=== PATIENT | male | born 1950 | race Caucasian/White ===

== ENCOUNTER → 2018-08-18 15:03 | Outpatient (POV) | payer MEDICARE, SELFPAY | PROVIDERS: Visit Provider Internal Medicine Nephrology | DX: Z00.00 Encounter for general adult medical examination without abnormal findings (principal) ==

== ENCOUNTER → 2018-11-11 12:43 | Outpatient (CLI) | payer MEDICARE, SELFPAY ==
--- NOTE | 2018-11-11 12:48 | US_ITS ---
US kidney retroperitoneal comp HISTORY: Chronic renal disease ITS.REASON: CKD III ORDERING PHYSICIAN: Micky Bliss PATIENT AGE: 67 years Comparison: None FINDINGS: The right kidney measures 13 x 7 x 9 cm. There is renal cortical thinning with scarring. There is a solid-appearing nodule measuring 3 x 2 cm along the upper pole the right kidney. It is possible this could be due to artifact from the scarring with a pseudonodule however, a renal mass is an additional consideration. The left kidney is 13 x 6 x 8.5 cm. There is an 18 mm cyst along the lower pole and a 3 cm cyst along the lower pole. No hydronephrosis. There is cortical thinning with scarring. There is increased echogenicity of the renal cortices bilaterally. Incidental note made of splenomegaly at 15 cm. IMPRESSION: 1. No hydronephrosis. 2. Bilateral renal cortical scarring with increased echogenicity of the cortex suggesting medical renal disease. 3. Possible mass along the upper pole the right kidney. CT of the kidneys without and with contrast would be of further value however, the patient's renal status may not permit contrast administration. If this is the case then, MRI of the kidneys may be of further value to exclude a right renal mass. 4. Splenomegaly
== END ==
PROVIDERS: PCP Internal Medicine Nephrology; Visit Provider Internal Medicine Nephrology
DX: N18.3 Chronic kidney disease, stage 3 (moderate) (principal)
CPT/HCPCS: 76770

== ENCOUNTER → 2018-11-14 11:42 | Outpatient (CLI) | payer MEDICARE, SELFPAY ==
--- NOTE | 2018-11-14 11:45 | CA_ITS ---
PROCEDURE: 2-D M-mode and color Doppler study INDICATIONS FOR THE TEST: Chest pain COPD Heart Murmur Tobacco SmokingEX Palpitations Fatigue Syncope EdemaX Hypertension Diabetes MellitusX Rheumatic Fever SOB NESBITT Obesity HyperlipidemiaX Family History HD Additional History CAD,NEW ONSET AF PATIENT INFORMATION HEIGHT:76 WEIGHT:314 GENDER: Male B/P:156/87 2-D/M-MODE INTERPRETATION: 2-D MEASUREMENTS OBSERVED VALUES IN CMS Right Ventricular Dimension (RVDd) 2.5 Interventricular Septum (Thickness)(IVsd) 1.4 Left Ventricular Internal Dimensions(LVIDd) 5.0 Left Ventricular Posterior Wall (Thickness)(LVPWd) 1.4 Aortic Root 4.2 Aortic Cusp Separation 2.3 Left Atrial Dimensions (LAD) 3.7 2D 1. Left atrium is mildly enlarged, left ventricle is normal size, mild concentric left ventricular hypertrophy, visually estimated ejection fraction 50% with no regional wall motion abnormality. 2. The right atrium and right ventricle are mildly enlarged with normal contractility. 3. The aortic valve is thickened and calcified leaflet continue to display good mobility. 4. The mitral and tricuspid valve leaflets are minimally thickened. 5. Pulmonic valve is poorly visualized. 6. No significant pericardial effusion noted. DOPPLER INTERROGATION: Doppler interrogation of the aortic, mitral and tricuspid valvular presence of mild mitral and tricuspid regurgitation, tricuspid regurgitation jet velocity is inadequate for calculation of the right ventricular systolic pressure, diastolic parameters are inconclusive. CONCLUSION: 1. Mildly enlarged left atrium, normal left ventricular size, mild concentric left ventricular hypertrophy, visually estimated ejection fraction 50% with no regional wall motion abnormality, diastolic parameters are inconclusive. 2. Mildly enlarged right ventricle with normal contractility. 3. Mild mitral and tricuspid regurgitation 4. No significant pericardial effusion noted.
[2018-11-14 12:38] LABS: Basophils % 0.5 % (0.1-2.0); Eosinophils # 0.1 K/mm3 (0.0-0.4); Eosinophils % 1.6 % (0.1-12.0); Hematocrit 36.1 % (42.0-52.0); Hemoglobin 12.1 g/dL (14.1-18.0); Lymphocytes # 1.2 K/mm3 (0.7-4.5); Lymphocytes % 19.4 % (10-50); Mean Corpuscular HGB Conc 33.5 g/dL (31.8-35.4); Mean Corpuscular Hemoglobin 30.1 pg (27.0-31.2); Mean Corpuscular Volume 89.8 fl (80-94); Mean Platelet Volume 9.1 fl (7.4-10.4); Monocytes # 0.4 K/mm3 (0.1-1.0); Monocytes % 7.1 % (1.7-9.3); Neutrophils # 4.5 K/mm3 (1.8-7.8); Neutrophils % 71.4 % (37.0-80.0); Platelet Count 231 K/mm3 (142-424); Red Blood Count 4.02 M/mm3 (4.60-6.20); Red Cell Distribution Width 13.5 % (11.5-17.5); White Blood Count 6.3 K/mm3 (4.8-10.8)
[2018-11-14 16:07] LABS: Alanine Aminotransferase 24 U/L (12-78); Albumin Level 3.1 gm/dL (3.4-5.0); Alkaline Phosphatase 116 U/L (46-116); Anion Gap 16.6 mEq/L (5-15); Aspartate Amino Transferase 9 U/L (15-37); Bilirubin,Direct 0.1 mg/dL (0.0-0.2); Bilirubin,Indirect 0.2 mg/dL (0.0-0.9); Bilirubin,Total 0.3 mg/dL (0.2-1.0); Blood Urea Nitrogen 35 mg/dL (7-18); Carbon Dioxide 24 mmol/L (21.0-32.0); Chloride 103 mmol/L (98-107); Estimated Glomerular Filt Rate 24 ml/min (>60); Free T4 (Free Thyroxine) 1.03 ng/dl (0.76-1.46); GFR (African American) 30 ML/MIN (>60); Glucose 303 mg/dL (74-106); Potassium 4.6 mmoL/L (3.5-5.1); Sodium 139 mmol/L (136-145); Thyroid Stimulating Hormone 2.15 uIU/ml (0.358-3.740); Total Protein,Serum 6.6 gm/dL (6.4-8.2)
[2018-11-14 16:18] LABS: Creatinine,Serum 2.61 mg/dL (0.70-1.30)
== END ==
PROVIDERS: PCP Family Medicine; Visit Provider Nurse Practitioner Family
DX: I25.10 Atherosclerotic heart disease of native coronary artery without angina pectoris (principal); I48.91 Unspecified atrial fibrillation; R60.0 Localized edema; E11.9 Type 2 diabetes mellitus without complications; I10 Essential (primary) hypertension; E78.49 Other hyperlipidemia; Z79.84 Long term (current) use of oral hypoglycemic drugs; Z87.891 Personal history of nicotine dependence
CPT/HCPCS: 36415; 80048; 80076; 84439; 84443; 85025; 93306

== ENCOUNTER → 2018-11-17 12:30 | Outpatient (POV) | payer MEDICARE, SELFPAY | PROVIDERS: Visit Provider Internal Medicine Nephrology | DX: Z00.00 Encounter for general adult medical examination without abnormal findings (principal) ==

== ENCOUNTER → 2018-12-23 19:56 | Outpatient (CLI) | payer MEDICARE, SELFPAY | PROVIDERS: PCP Family Medicine; Visit Provider Internal Medicine Cardiovascular Disease | DX: G47.33 Obstructive sleep apnea (adult) (pediatric) (principal); G47.10 Hypersomnia, unspecified; I10 Essential (primary) hypertension; I25.10 Atherosclerotic heart disease of native coronary artery without angina pectoris; I48.91 Unspecified atrial fibrillation; E66.9 Obesity, unspecified | CPT/HCPCS: 95810 ==

== ENCOUNTER → 2019-02-16 14:20 | Outpatient (POV) | payer MEDICARE, SELFPAY | PROVIDERS: Visit Provider Internal Medicine Nephrology | DX: Z00.00 Encounter for general adult medical examination without abnormal findings (principal) ==

== ENCOUNTER → 2019-04-20 20:26 | Outpatient (CLI) | payer MEDICARE, SELFPAY | PROVIDERS: PCP Family Medicine; Visit Provider Nurse Practitioner Family | DX: G47.33 Obstructive sleep apnea (adult) (pediatric) (principal) | CPT/HCPCS: 95811 ==

== ENCOUNTER → 2019-06-05 12:44 | Outpatient (CLI) | payer MEDICARE, SELFPAY ==
--- NOTE | 2019-06-05 12:47 | US_ITS ---
PROCEDURE: US KIDNEY CLINICAL INDICATION: CKD III Chronic renal disease COMPARISON: LDCTLCAS LDCT FOR LUNG CA SCREEN from 02/04/2017 RETROPCM US kidney retroperitoneal comp from 11/11/2018 FINDINGS: The right kidney is 14 x 7 x 7 cm. No hydronephrosis. There is cortical thinning. In the upper pole of the right kidney there is a complex lesion at 2.2 x 1.7 cm similar compared to the previous study which appears solid in nature. The left kidney is 14 x 6 x 6 cm. No hydronephrosis. Cortical thinning noted. There is a 2.5 cm x 3 cm cyst along the lower pole on the left. There is increased echogenicity of both kidneys IMPRESSION: Overall no significant change from 11/11/2018. Bilateral renal cortical thinning with scarring and increased echogenicity of the kidneys consistent with medical renal disease. No hydronephrosis. Possible solid nodule along the upper pole of the right kidney with a 3 cm cyst along the lower pole of the left kidney with somewhat irregular margins. MRI of the kidneys may provide further evaluation if clinically desired Dictated by: Gabriel Seth MD 06/05/2019 17:32 Electronically signed by Gabriel Seth MD in [place] 06/05/2019 17:32
== END ==
PROVIDERS: PCP Family Medicine; Visit Provider Internal Medicine Nephrology
DX: N18.3 Chronic kidney disease, stage 3 (moderate) (principal)
CPT/HCPCS: 76770

== ENCOUNTER → 2019-07-20 09:30 | Outpatient (CLI) | payer MEDICARE, SELFPAY | PROVIDERS: Visit Provider Nurse Practitioner Family | DX: G47.33 Obstructive sleep apnea (adult) (pediatric) (principal); Z99.89 Dependence on other enabling machines and devices | CPT/HCPCS: 94762 ==

== ENCOUNTER → 2019-07-20 15:28 | Outpatient (POV) | payer MEDICARE, SELFPAY | PROVIDERS: Visit Provider Internal Medicine Nephrology | DX: Z00.00 Encounter for general adult medical examination without abnormal findings (principal) ==

== ENCOUNTER → 2019-10-23 13:43 | Outpatient (POV) | payer MEDICARE, SELFPAY | PROVIDERS: Visit Provider Internal Medicine Nephrology | DX: Z00.00 Encounter for general adult medical examination without abnormal findings (principal) ==

== ENCOUNTER → 2020-09-27 12:15 | Outpatient (CLI) | payer MEDICARE, SELFPAY ==
--- NOTE | 2020-09-27 12:22 | XR_ITS ---
PROCEDURE: XR CHEST PORTABLE CLINICAL HISTORY: COVID TESTING Cough and shortness of breath COMPARISON: No exams were available for comparison FINDINGS: The cardiomediastinal silhouette and pulmonary vascularity are within normal limits. Patchy density present in both mid lower lung zones consistent with atypical pneumonia/Covid19 pneumonia. No acute bony abnormalities. IMPRESSION: Patchy bilateral mid lower lung airspace disease suspicious for atypical/Covid19 pneumonia Dictated by: Gabriel Seth MD 09/27/2020 13:46 Gabriel Seth MD in [place] 09/27/2020 13:46
[2020-09-27 13:28] LABS: Basophils % 0.3 % (0.1-2.0); Eosinophils % 0.3 % (0.1-12.0); Hematocrit 31.3 % (42.0-52.0); Hemoglobin 10.1 g/dL (14.1-18.0); Lymphocytes # 0.7 K/mm3 (0.7-4.5); Lymphocytes % 10.5 % (10-50); Mean Corpuscular HGB Conc 32.4 g/dL (31.8-35.4); Mean Corpuscular Hemoglobin 29.3 pg (27.0-31.2); Mean Corpuscular Volume 90.6 fl (80-94); Mean Platelet Volume 9.1 fl (7.4-10.4); Monocytes # 0.5 K/mm3 (0.1-1.0); Neutrophils # 5.1 K/mm3 (1.8-7.8); Neutrophils % 80.9 % (37.0-80.0); Platelet Count 181 K/mm3 (142-424); Red Blood Count 3.45 M/mm3 (4.60-6.20); Red Cell Distribution Width 14.2 % (11.5-17.5); White Blood Count 6.2 K/mm3 (4.8-10.8)
[2020-09-28 10:49] LABS: Covid-19 Nasal PCR Sendout P&C POSITIVE
== END ==
PROVIDERS: PCP Physician Assistant; Visit Provider Physician Assistant
DX: R05 Cough (principal)
CPT/HCPCS: 36415; 71045; 85025; U0004

== ENCOUNTER 2020-09-30 15:05 | Inpatient (IN) | payer MEDICARE, SELFPAY ==
[2020-09-30] VITALS (7 sets, daily range): BP systolic 132–188; BP diastolic 70–105; PULSE 70–87; RESP 20–26; TEMP 36.1–36.9; O2SAT 85–92; BMI 37.7; BMI 34.2
--- NOTE | 2020-09-30 15:56 | XR_ITS ---
PROCEDURE: XR CHEST PORTABLE CLINICAL HISTORY: cough Covid19 COMPARISON: CR XR CHEST PORTABLE from 09/27/2020 FINDINGS: Mild cardiomegaly without failure. Bilateral pneumonia is present in the right mid lower lung zone and left mid lower lung zone which is worse on both sides. Lung apices are spared. No acute bony abnormalities. IMPRESSION: Worsening bilateral pneumonia Dictated by: Gabriel Seth MD 09/30/2020 17:14 Gabriel Seth MD in [place] 09/30/2020 17:14
[2020-09-30 16:18] LABS: ABG Base Excess -11.4 mmol/L (-2.4-2.3); ABG HCO3 13.3 mmhg (22.0-26.0); ABG Oxygen Saturation 88 % (90-100); ABG PCO2 21.8 mmhg (35.0-45.0)
[2020-09-30 16:19] LABS: Allen's Test Acceptable; Source Right Radial
[2020-09-30 16:20] LABS: Alanine Aminotransferase 41 U/L (12-78); Albumin/Globulin Ratio 1.1 (1.1-1.8); Alkaline Phosphatase 83 U/L (38-126); Anion Gap 20.9 mEq/L (5-15); Aspartate Amino Transferase 39 U/L (17-59); Bilirubin,Total 0.6 mg/dl (0.2-1.3); Calcium 9.4 mg/dl (8.4-10.2); Carbon Dioxide 14 mmol/L (22.0-30.0); Chloride 108 mmol/L (98-107); Estimated Glomerular Filt Rate 20 ml/min (>60); GFR (African American) 24 ML/MIN (>60); Globulin 3.8 g/dL (1.3-3.2); Glucose 313 mg/dl (74-100); Potassium 3.9 mmoL/L (3.5-5.1); Sodium 139 mmol/L (136-145); Total Protein,Serum 7.8 g/dl (6.3-8.2)
[2020-09-30 16:27] LABS: Blood Urea Nitrogen 85 mg/dl (9-20)
[2020-09-30 16:36] LABS: Troponin I < 0.01 ng/ml (0.00-0.034)
[2020-09-30 16:46] LABS: Basophils % 0.2 % (0.1-2.0); Hematocrit 31.5 % (42.0-52.0); Hemoglobin 10.7 g/dL (14.1-18.0); Lymphocytes # 0.7 K/mm3 (0.7-4.5); Lymphocytes % 4.1 % (10-50); Mean Corpuscular HGB Conc 33.9 g/dL (31.8-35.4); Mean Corpuscular Hemoglobin 29.7 pg (27.0-31.2); Mean Corpuscular Volume 87.6 fl (80-94); Mean Platelet Volume 8.3 fl (7.4-10.4); Monocytes # 0.6 K/mm3 (0.1-1.0); Monocytes % 3.6 % (1.7-9.3); Neutrophils # 15.8 K/mm3 (1.8-7.8); Neutrophils % 92.1 % (37.0-80.0); Platelet Count 334 K/mm3 (142-424); Red Cell Distribution Width 14.4 % (11.5-17.5); White Blood Count 17.2 K/mm3 (4.8-10.8)
[2020-09-30 17:00] LABS: MANUAL DIFFERENTIAL MANUAL DIFFERENTIAL (MANUAL DIFF)
[2020-09-30 17:12] LABS: Eosinophils % 2 % (0-3); Lymphocytes % 7 % (10-50); Monocytes % 3 % (2-9); Neutrophils % 88 % (42-76); Platelet Estimate Normal; RBC Morphology Normal; Total Cells Counted 100
--- NOTE | 2020-09-30 17:12 | HMH.EDSOB ---
ED Disposition Clinical Impression: Acute exacerbation of chronic obstructive airways disease, Acute respiratory failure due to COVID-19 Community acquired pneumonia Qualifiers: Laterality: right Lung location: unspecified part of lung Qualified Code(s): J18.9 - Pneumonia, unspecified organism Acute renal failure Qualifiers: Acute renal failure type: with other specified pathological lesion Qualified Code(s): N17.8 - Other acute kidney failure Disposition: Admitted As Inpatient Condition on Discharge: Serious Referrals: Anahi Ortega PA [Primary Care Provider] - - Critical Care Critical Care Time: Yes Attestation: On 09/30/20, the high probability of a clinically significant, sudden or life threatening deterioration of the following system(s) required my full and direct attention, intervention and personal management. The time I documented below is in addition to time spent performing reported procedures but includes the following listed in this critical care notation. Total Critical Care Time: 30 Vital system(s) involved:: Circulatory Failure, Metabolic Failure, Respiratory Failure, Renal Failure My critical care processes included: Assessment & monitoring of V/S, Initial and Re-exams, Data Review/Interpretation, Coordinating Care, Medication Orders and management, Documentation Medical Decision Making - Zander Inquiry Pt receiving controlled substance: No Vital Signs: 09/30/20 16:53 Temperature 98.4 F Temperature Source Oral Pulse Rate [Right] 87 Respiratory Rate 26 H Blood Pressure [Right Arm] 140/80 Blood Pressure Mean [Right Arm] 100 Blood Pressure Source [Right Arm] Automatic Cuff Blood Pressure Position [Right Arm] Sitting 02 Sat by Pulse Oximetry 85 L Oxygen Delivery Method Room Air - Lab Data Lab Results 09/30/20 15:44: Sodium 139, Potassium 3.9, Chloride 108 H, Carbon Dioxide 14 L, Anion Gap 20.9 H, BUN 85 H, Creatinine 3.10 H, Estimated GFR 20 L, Est GFR ( Amer) 24 L, Glucose 313 H, Calcium 9.4, Total Bilirubin 0.6, AST 39, ALT 41, Alkaline Phosphatase 83, Troponin I < 0.01, Total Protein 7.8, Albumin 4.0, Globulin 3.8 H, Albumin/Globulin Ratio 1.1 09/30/20 15:56: Specimen Source Right radial, O2 % 4l nc, ABG pH 7.40, ABG pCO2 21.8 L, ABG pO2 55.0 L, ABG HCO3 13.3 L, ABG Total CO2 14.0 L, ABG O2 Saturation 88 L, ABG Base Excess -11.4 L, Gabriel Test Acceptable 09/30/20 16:26: WBC 17.2 H, RBC 3.60 L, Hgb 10.7 L, Hct 31.5 L, MCV 87.6, MCH 29.7, MCHC 33.9, RDW 14.4, Plt Count 334 D, MPV 8.3, Neut % (Auto) 92.1 H, Lymph % (Auto) 4.1 L, Victoria % (Auto) 3.6, Eos % (Auto) 0.0 L, Baso % (Auto) 0.2, Neut # (Auto) 15.8 H, Lymph # (Auto) 0.7, Victoria # (Auto) 0.6, Eos # (Auto) 0.0, Baso # (Auto) 0.0, Total Counted 100, Neutrophils % (Manual) 88 H, Lymphocytes % (Manual) 7 L, Monocytes % (Manual) 3, Eosinophils % (Manual) 2, Platelet Estimate Normal, RBC Morphology Normal 09/30/20 16:26: Lactate 2.0 Result diagrams: 09/30/20 16:26 09/30/20 15:44 Orders (Tests/Meds): ED MEDICATIONS Generic Name Dose Route Start Last Admin Trade Name Freq PRN Reason Stop Dose Admin Azithromycin 500 mg/ Sodium 250 mls @ 250 mls/hr 09/30/20 17:30 Chloride IV 10/14/20 17:29 Q24H AMBER Protocol Ceftriaxone Sodium 1 gm/ 50 mls @ 100 mls/hr 09/30/20 17:30 Sodium Chloride IV 10/14/20 17:29 Q24H AMBER Protocol Discontinued Medications Generic Name Dose Route Start Last Admin Trade Name Freq PRN Reason Stop Dose Admin Acetaminophen 650 mg 09/30/20 15:56 Acetaminophen 325mg Tab PO 09/30/20 15:57 ONCE ONE Dexamethasone Sodium Phosphate 10 mg 09/30/20 15:56 Dexamethasone 4mg/Ml 5ml Mdv IV 09/30/20 15:57 ONCE ONE Sodium Chloride 1,000 mls @ 999 mls/hr 09/30/20 16:00 Sod Chlor 0.9% 1000ml Bag IV 09/30/20 17:00 .Q1H1M AMBER ORDERS Category Date Time Status Troponin I Q3H Lab 09/30/20 19:00 Ordered Troponin I Q3H Lab 09/30/20 22:00 Ordered Blood C
--- NOTE | 2020-09-30 17:20 | PC.NURSE ---
Dr. Sun pageleatha
--- NOTE | 2020-09-30 17:33 | PC.NURSE ---
Notified house of admission
--- NOTE | 2020-09-30 18:04 | PC.NURSE ---
notified floor pt ready for admission
--- NOTE | 2020-09-30 18:37 | PC.NURSE ---
came from ed in wheelchair
--- NOTE | 2020-09-30 20:13 | P.CONPHA_ITS ---
[facility] Pharmacy VTE Monitoring - Patient Demographics Admission date: 09/30/20 Report Date: 09/30/20 Time: 20:13 Allergies/Adverse Reactions: Patient Allergies No Known Allergies Allergy (Verified 08/30/20 13:15) Height: 1.93 m Weight: 127.658 kg Patient Problems: Current Active Problems Acute exacerbation of chronic obstructive airways disease (Acute) Community acquired pneumonia (Acute) Acute respiratory failure due to COVID-19 (Acute) Acute renal failure (Acute) - VTE Risk Labs: VTE Related Lab Results Hgb 10.7 g/dL (14.1-18.0) L 09/30/20 16:26 Hct 31.5 % (42.0-52.0) L 09/30/20 16:26 Plt Count 334 K/mm3 (142-424) D 09/30/20 16:26 BUN 85 mg/dl (9-20) H 09/30/20 15:44 Creatinine 3.10 mg/dl (0.66-1.25) H 09/30/20 15:44 Was VTE Risk Assessment Performed: Yes VTE Score: 3 VTE Risk Level: Low Risk Clinical Trial Participant: No - Prophylaxis VTE Prophylaxis Ordered?: Yes Types of VTE Prophylaxis: TEDS Knee High, Pharmacological Pharmacologic Type: Enoxaparin
[2020-09-30 20:32] LABS: Troponin I < 0.01 ng/ml (0.00-0.034)
[2020-09-30 22:39] LABS: Troponin I < 0.01 ng/ml (0.00-0.034)
[2020-10-01] VITALS (10 sets, daily range): BP systolic 162–173; BP diastolic 77–90; PULSE 70–92; RESP 20–26; TEMP 36.1–36.6; O2SAT 88–93
--- NOTE | 2020-10-01 04:59 | PC.NURSE ---
pt independent with ambulation. alert and oriented. iv patent and infusing per order. pt states he wears a cpap at night when at home. pt also states that since he has had covid his o2 sat remain in the lower 80's when he has checked at home. beginning of shift pt was on 4LNC and remained to decline in o2 sat increased to 5LNC o2 sat at 90-91% when pt was sleeping drop to 88%. o2 sat began to decrease and remain 85-86% pt was placed on venti at 40%. o2 sat have been 90-91% mostly but has decreased at times to 88%. pt states no issues. call light in reach. will continue to monitor pt condition.
[2020-10-01 06:39] LABS: Basophils % 0.3 % (0.1-2.0); Hemoglobin 10.9 g/dL (14.1-18.0); Lymphocytes % 6.3 % (10-50); Mean Corpuscular HGB Conc 34.1 g/dL (31.8-35.4); Mean Corpuscular Hemoglobin 30.4 pg (27.0-31.2); Mean Platelet Volume 8.8 fl (7.4-10.4); Monocytes # 0.6 K/mm3 (0.1-1.0); Neutrophils # 14.4 K/mm3 (1.8-7.8); Neutrophils % 89.5 % (37.0-80.0); Platelet Count 332 K/mm3 (142-424); Red Cell Distribution Width 14.2 % (11.5-17.5); White Blood Count 16.1 K/mm3 (4.8-10.8)
[2020-10-01 06:45] LABS: Alanine Aminotransferase 35 U/L (12-78); Albumin Level 3.9 g/dl (3.5-5.0); Albumin/Globulin Ratio 1.1 (1.1-1.8); Alkaline Phosphatase 89 U/L (38-126); Anion Gap 19.1 mEq/L (5-15); Aspartate Amino Transferase 33 U/L (17-59); Bilirubin,Total 0.5 mg/dl (0.2-1.3); Calcium 9.3 mg/dl (8.4-10.2); Carbon Dioxide 15 mmol/L (22.0-30.0); Chloride 112 mmol/L (98-107); Creatinine Clearance Estimated 44 mL/min (50-200); Estimated Glomerular Filt Rate 22 ml/min (>60); GFR (African American) 27 ML/MIN (>60); Globulin 3.5 g/dL (1.3-3.2); Glucose 230 mg/dl (74-100); Potassium 4.1 mmoL/L (3.5-5.1); Sodium 142 mmol/L (136-145); Total Protein,Serum 7.4 g/dl (6.3-8.2)
[2020-10-01 07:00] LABS: MANUAL DIFFERENTIAL MANUAL DIFFERENTIAL (MANUAL DIFF)
[2020-10-01 07:13] LABS: Blood Urea Nitrogen 78 mg/dl (9-20)
[2020-10-01 08:44] LABS: Hypochromasia 1+; Lymphocytes % 14 % (10-50); Monocytes % 2 % (2-9); Neutrophils % 84 % (42-76); Platelet Estimate Normal; Total Cells Counted 100
--- NOTE | 2020-10-01 08:53 | HMH.HP ---
*Admission Date: 09/30/20 <Maureen Jones - 10/01/20 09:31> *Chief complaint: Shortness of breath <Maureen Jones - 10/01/20 09:31> *History of present illness: Mr. Saldana is a 69-year-old male with a history of hypertension, diabetes mellitus, anemia, sleep apnea, chronic kidney disease stage IV followed by nephrology at , and Covid pneumonia diagnosed 09/28/2020 who presented to [facility] emergency room with progressive shortness of breath. He was originally sent for mono clonal antibody infusion. He had already tested positive for the coronavirus about 4 days prior to this. On arrival patient was found to be very short of breath and hypoxic with low O2 sats. He describes some nonproductive coughs, fevers and chills. He states he has not felt well for several days. With evaluation in the emergency room Chest x-ray revealed worsening bilateral pneumonia. He had had a previous chest x-ray which showed the Covid pneumonia. He had been on Promethazine DM, Zithromax, dexamethasone, zinc and albuterol inhalers without improvement. White blood cell count was 17,200 with a hemoglobin of 10.7 and hematocrit of 31.5. Neutrophils were 92.1%. ABG showed a pH of 7.4 PCO2 of 21.8 PO2 of 55 and a bicarb of 13.3. Blood chemistry showed sodium of 139 potassium of 3.9. BUN was 85 and creatinine 3.1. All Troponin I's have been normal at 0.01 x 3. Liver function tests were not elevated. Patient was thus admitted and placed on routine Covid protocol to include remdesivir, cefdinir, Zithromax, Lovenox and to include normal saline at 100 mL/h. This a.m. patient states he does feel somewhat better. He has been sitting up in a chair and can breathe better this way. He denies chest pain. He was able to eat breakfast. He has been on a Ventimask at 40% with adequate O2 sats. Laboratory data this morning show slight improvement in renal function with a BUN of 78 and creatinine of 2.8. Elevated blood sugars have been managed with sliding scale insulin. CBC shows a slight improvement with white blood cell count at 16,100; hemoglobin and hematocrit are stable at 10.9/32. <RobertMaureen 10/01/20 09:31> [facility] History Medical History: Reports:: Arrhythmia (Atrial fibrillation), Atrial Fibrillation, BPH, Coronary Artery Disease, Diabetes Mellitus Type 2, Hyperlipidemia, Hypertension, Kidney Stones Denies:: Cancer, Diabetes Mellitus Type 1, Internal Pacemaker, Lung Disease, MRSA, Seizures <JonesMaureen 10/01/20 09:31> *Have you ever received a pneumonia vaccine?: No <Maureen Jones 10/01/20 09:31> *Have you received a flu vaccine this season?: Yes <Jones,Maureen 10/01/20 09:31> Other Medical History: Reports: Anemia, Arthritis, Cataracts, Other <Maureen Jones 10/01/20 09:31> Laterality Cases: Bilateral: Other <RobertMaureen 10/01/20 09:31> Other Surgeries: Yes: Cardiac Catheterization, Colonoscopy, Other (Cystoscopy, TURP). No: Pacemaker <Maureen Jones 10/01/20 09:31> Amputation: No <RobertMaureen 10/01/20 09:31> Fractures: No <RobertMaureen 10/01/20 09:31> - *Social History Last grade of school completed: 11th or 12th <RobertMaureen 10/01/20 09:31> Smoking Status: Former smoker <Jones,Maureen 10/01/20 09:31> Tobacco Type: cigarettes <Maureen Jones 10/01/20 09:31> #Yrs smoked (if former smoker): 25 <Maureen Jones 10/01/20 09:31> Alcohol Intake: former <Maureen Jones 10/01/20 09:31> Alcohol Intake Frequency:: 3 or more drinks per day <Maureen Jones 10/01/20 09:31> Substance Use Type: denies use <Maureen Jones 10/01/20 09:31> *Occupational Status:: employed <Maureen Jones 10/01/20 09:31> Housing: house <Maureen Jones 10/01/20 09:31> Household Members: family <Maureen Jones 10/01/20 09:31> *Travel in the last 8 weeks: None <Maureen Jones - 10/01/20 09:31> Family Hx:: Cancer <Maureen Jones - 10/01/20 09:31> Review of Systems - Constitutional Denies chills, Denies headache(s) <Scott
--- NOTE | 2020-10-01 09:23 | ECG_ITS ---
APPROVED REPORT Exam: Resting ECG HR:84 bpm ECG Measurements Heart Rate 84 AXES MN 216 P 89 QRSd 104 QRS 15 QT 390 T 8 QTc 460 Conclusion Sinus rhythm with 1st degree AV block with frequent premature ventricular complexes Otherwise normal ECG Electronically signed by : Benjamin Allen, 10/01/2020 21:00:03
--- NOTE | 2020-10-01 14:29 | HMH.PHAINT ---
MEDICATION RECONCILIATION COMPLETED ON PATIENT USING EXTERNAL FILL HISTORY FROM PHARMACY AND LIST FROM [facility] OFFICE. -JAMIR MARTINEZD
--- NOTE | 2020-10-01 17:37 | PC.NURSE ---
HE IS AOX4, ABLE TO MAKE NEEDS KNOWN TO STAFF, HE HAS AMBULATED TO RESTROOM INDEPENDENTLY FOR ELIMINATION NEEDS, HE HAS REQUIRED 40% VENTI MASK, HE BECOMES SOA AT TIMES WHEN AMBULATING, HE HAS SAT UP TO CHAIR FOR DURATION OF SHIFT, HE IS TOLERATING PO INTAKE WELL, HE DENIES N/V/D, ABD IS SOFT ROUND AND NON-TENDER, BOWEL SOUNDS ARE ACTIVE, VITAL SIGNS HAVE REMAINED STABLE T/O SHIFT WITH O2 SATS 91-93% ON VENTI MASK, PT DOES HAVE A DRY COUGH AT TIMES, NO NEEDS AT THIS TIME WILL CONTINUE TO MONITOR.
--- NOTE | 2020-10-01 19:37 | PC.NURSE ---
CONTACTED DR OCAMPO MANAGER DRILLING FOR DR STRANGE REGARDING PT O2 SAT ON MATT MASK AFTER CONSULTING WITH RT AND OBTAINED ORDER INCREASING DOSAGE OF ALBUTEROL INHALER FROM 1 PUFF Q6HRS TO 2 PUFFS Q6HRS
--- NOTE | 2020-10-01 23:32 | PC.NURSE ---
Addendum entered by Licha Malave RN 10/01/20 23:39: fine crackles auscultated in right bases and is diminished t/o Original Note: pt is AxOx4, remains on venti mask, respirations 22-24, O2 90-92%, breathing is spontaneous and non-labored, has no complaints of SOA or chest pain, edema noted to BLE, has remained in chair so far this shift
[2020-10-02] VITALS (11 sets, daily range): BP systolic 142–173; BP diastolic 72–91; PULSE 60–90; RESP 18–25; TEMP 36.3–37.2; O2SAT 85–93; BMI 33.7; BMI 33.8
[2020-10-02 07:09] LABS: Alanine Aminotransferase 31 U/L (12-78); Albumin Level 4.1 g/dl (3.5-5.0); Albumin/Globulin Ratio 1.1 (1.1-1.8); Alkaline Phosphatase 103 U/L (38-126); Anion Gap 19.2 mEq/L (5-15); Aspartate Amino Transferase 25 U/L (17-59); Bilirubin,Total 0.5 mg/dl (0.2-1.3); Calcium 9.7 mg/dl (8.4-10.2); Carbon Dioxide 17 mmol/L (22.0-30.0); Chloride 111 mmol/L (98-107); Creatinine Clearance Estimated 42 mL/min (50-200); Estimated Glomerular Filt Rate 22 ml/min (>60); GFR (African American) 26 ML/MIN (>60); Globulin 3.6 g/dL (1.3-3.2); Glucose 321 mg/dl (74-100); Potassium 4.2 mmoL/L (3.5-5.1); Sodium 143 mmol/L (136-145); Total Protein,Serum 7.7 g/dl (6.3-8.2)
[2020-10-02 07:26] LABS: Blood Urea Nitrogen 77 mg/dl (9-20)
--- NOTE | 2020-10-02 07:47 | PC.NURSE ---
Notified Ru Jones of BUN of 77. at 0748 no new orders at this time.
--- NOTE | 2020-10-02 07:53 | HMH.ACPN2 ---
<Maureen Jones - Last Filed: 10/02/20 07:53> Internal Medicine - PN: Subj *Date: 10/02/20 *Time: 07:53 Interval history: Patient states he is about the same today. He does have some cough. He has been using his inhaler. He still continues to be short of breath at times. He is on Ventimask anywhere from 35 to 40%. He sleeps in the chair. He states he cannot lie down because his cough increases. He denies chest pain. He has ambulated to the bathroom without difficulty. Voiding QS. He states he ate 3 times daily and also ate his breakfast this morning. Nursing had difficulty with IV restart during the night. I And O noted. Blood pressure remains elevated. Laboratory data this morning reveals sodium was 143 and potassium of 4.2. Renal function remains about the same with a BUN of 77 and a creatinine of 2.9. Liver function studies remain normal. EKG revealed sinus rhythm with frequent premature beats. Exam Vital signs and Labs for Last 24 Hours: Temp Pulse Resp BP Pulse Ox 97.7 F 69 20 165/91 H 90 L 10/02/20 04:00 10/02/20 04:00 10/02/20 04:00 10/02/20 04:00 10/02/20 06:00 Laboratory Results - last 24 hr 10/01/20 06:08: Total Counted 100, Neutrophils % (Manual) 84 H, Lymphocytes % (Manual) 14, Monocytes % (Manual) 2, Platelet Estimate Normal, Hypochromasia 1+ 10/02/20 06:24: Sodium 143, Potassium 4.2, Chloride 111 H, Carbon Dioxide 17 L, Anion Gap 19.2 H, BUN 77 H, Creatinine 2.90 H, Estimated Creat Clear 42, Estimated GFR 22 L, Est GFR ( Amer) 26 L, Glucose 321 H, Calcium 9.7, Total Bilirubin 0.5, AST 25, ALT 31, Alkaline Phosphatase 103, Total Protein 7.7, Albumin 4.1, Globulin 3.6 H, Albumin/Globulin Ratio 1.1 I & O for Last 24 hours: Intake & Output 09/29/20 09/30/20 10/01/20 10/02/20 11:59 11:59 11:59 11:59 Intake Total 1531 / 1531 990 / 990 Output Total 1345 / 1345 Balance 1531 / 1531 -355 / -355 Weight 281 lb 7 oz 277 lb 7 oz - Constitutional no acute distress Comments: Clinic with talking - *Routine Respiratory Exam Present: other (Moving air well. Do not hear any wheezes or crackles this morning.) - *Routine Cardiovascular Exam Present: RRR Comments: Do not hear any premature beats. Monitor showing sinus rhythm - *Routine Abdominal Exam Present: soft, normoactive bowel sounds, obese. Absent: tenderness - *Routine Extremities Exam Present: edema - *Routine Neurological Exam Present: alert, oriented X3 Assessment and Plan (1) Acute renal failure Status: Acute Qualifiers: Acute renal failure type: with other specified pathological lesion Qualified Code(s): N17.8 - Other acute kidney failure Category: Medical Code(s): N17.9 - Acute kidney failure, unspecified (2) Acute respiratory failure due to COVID-19 Status: Acute Category: Medical Code(s): U07.1 - COVID-19; J96.00 - Acute respiratory failure, unspecified whether with hypoxia or hypercapnia (3) Community acquired pneumonia Status: Acute Qualifiers: Laterality: right Lung location: unspecified part of lung Qualified Code(s): J18.9 - Pneumonia, unspecified organism Category: Medical Code(s): J18.9 - Pneumonia, unspecified organism (4) Dyspnea Status: Acute Qualifiers: Dyspnea type: dyspnea on exertion Qualified Code(s): R06.00 - Dyspnea, unspecified Category: Medical Code(s): R06.00 - Dyspnea, unspecified (5) Edema Status: Chronic Qualifiers: Edema type: localized Qualified Code(s): R60.0 - Localized edema Category: Medical Code(s): R60.9 - Edema, unspecified (6) CAD (coronary artery disease) Status: Chronic Qualifiers: Coronary Disease-Associated Artery/Lesion type: [place] artery [place] vs. transplanted heart: [place] heart Associated angina: without angina Qualified Code(s): I25.10 - Atherosclerotic heart disease of [place] coronary artery without angina pectoris Category: Medical Code(s):
--- NOTE | 2020-10-02 08:08 | XR_ITS ---
PROCEDURE: XR CHEST PORTABLE CLINICAL HISTORY: COVID pneumonia Follow-up pneumonia COMPARISON: CR XR CHEST PORTABLE from 09/27/2020 CR XR CHEST PORTABLE from 09/30/2020 FINDINGS: Borderline cardiomegaly. No evidence of CHF. Diffuse consolidation noted in the mid lower lung zones on both sides and does appear slightly worse. No acute bony abnormalities. IMPRESSION: Slight worsening bilateral pneumonia. Dictated by: Gabriel Seth MD 10/02/2020 09:20 Gabriel Seth MD in [place] 10/02/2020 09:20
[2020-10-02 11:47] LABS: POC Glucose,Bedside 382 (70-110)
--- NOTE | 2020-10-02 12:27 | PC.NURSE ---
Called and spoke with Dr. Sun at this time in RE to checking pt's blood sugar and it being 382. He did order high intensity ssi - achs.
[2020-10-02 16:46] LABS: POC Glucose,Bedside 413 (70-110)
--- NOTE | 2020-10-02 19:37 | PC.NURSE ---
No acute changes this evening. Continues on 40% venti. Up to chair all of shift. Lungs fine crackles. IV saline locked. CB in reach. VSS. Did take shower this shift. Alert and oriented.
[2020-10-02 22:07] LABS: POC Glucose,Bedside 434 (70-110)
--- NOTE | 2020-10-02 22:49 | PC.NURSE ---
2100 COURTESY ROUND TRASH EMPTIED AND GLOVES REFILLED
[2020-10-03] VITALS (11 sets, daily range): BP systolic 149–180; BP diastolic 76–82; PULSE 50–100; RESP 20–26; TEMP 36.3–36.9; O2SAT 85–94; BMI 33.6
--- NOTE | 2020-10-03 03:56 | PC.NURSE ---
Pt ia A&Ox4. Pt has been up to chair majority of this shift and has been asleep. Lung sounds CTA. Pt continues to be on 40% venti mask. When pt moves or takes off venti mask, pt desats to the low 80s and takes approx 10 minutes to recover to 90%. No cough noted this shift. Active bowel sounds in all 4 quads, no BM noted this shift. Pt continues to ambulate independently to restroom w/ a steady gait and balance. No other acute changes or complaints at this time.
[2020-10-03 06:01] LABS: Alanine Aminotransferase 30 U/L (12-78); Albumin Level 3.8 g/dl (3.5-5.0); Albumin/Globulin Ratio 1.1 (1.1-1.8); Alkaline Phosphatase 94 U/L (38-126); Anion Gap 16.6 mEq/L (5-15); Aspartate Amino Transferase 25 U/L (17-59); Bilirubin,Total 0.5 mg/dl (0.2-1.3); Calcium 9.4 mg/dl (8.4-10.2); Carbon Dioxide 16 mmol/L (22.0-30.0); Chloride 111 mmol/L (98-107); Creatinine Clearance Estimated 46 mL/min (50-200); Estimated Glomerular Filt Rate 24 ml/min (>60); GFR (African American) 30 ML/MIN (>60); Globulin 3.5 g/dL (1.3-3.2); Glucose 274 mg/dl (74-100); Potassium 4.6 mmoL/L (3.5-5.1); Sodium 139 mmol/L (136-145); Total Protein,Serum 7.3 g/dl (6.3-8.2)
[2020-10-03 06:41] LABS: Blood Urea Nitrogen 78 mg/dl (9-20)
--- NOTE | 2020-10-03 06:51 | PC.NURSE ---
0600 COURTESY ROUND TRASH EMPTIED AND WATER REFILLED
[2020-10-03 06:56] LABS: POC Glucose,Bedside 279 (70-110)
--- NOTE | 2020-10-03 06:56 | PC.NURSE ---
Addendum entered by Tati Temple RN 10/03/20 07:03: MD Damon returned call. No new orders. Original Note: Paged MD Damon for notification result of BUN 78. Awaiting phone call return.
--- NOTE | 2020-10-03 08:05 | PC.NURSE ---
Paged Dr. Sherman principal research economist in RE to pt having runs of v tach, Dr. Sun called back this am and ordered cardio consult. RUDY Del Rosario on floor and made aware. Pt denies chest pain. CB in reach.
--- NOTE | 2020-10-03 08:21 | HMH.ACPN2 ---
<Anahi Ortega - Last Filed: 10/03/20 08:21> Internal Medicine - PN: Subj *Date: 10/03/20 *Time: 08:21 Interval history: Patient states he feels about the same today. He still has shortness of breath at rest and with any activity. He states he has some pain behind his right shoulder today. He is coughing but unable to cough up any sputum. He is still on a Ventimask and sats have been in the low 90s and upper 80s. He did sleep a little bit better last night and ate breakfast this morning. Nursing states he has had some runs of Oligasis, therefore cardiology was consulted. Exam Vital signs and Labs for Last 24 Hours: Temp Pulse Resp BP Pulse Ox 97.6 F 50 L 22 158/79 H 85 L 10/03/20 03:51 10/03/20 04:00 10/03/20 03:51 10/03/20 03:51 10/03/20 06:25 Laboratory Results - last 24 hr 10/02/20 11:36: POC Glucose 382 H* 10/02/20 16:21: POC Glucose 413 H* 10/02/20 20:32: POC Glucose 434 H* 10/03/20 05:40: Sodium 139, Potassium 4.6, Chloride 111 H, Carbon Dioxide 16 L, Anion Gap 16.6 H, BUN 78 H, Creatinine 2.60 H, Estimated Creat Clear 46, Estimated GFR 24 L, Est GFR ( Amer) 30 L, Glucose 274 H, Calcium 9.4, Total Bilirubin 0.5, AST 25, ALT 30, Alkaline Phosphatase 94, Total Protein 7.3, Albumin 3.8, Globulin 3.5 H, Albumin/Globulin Ratio 1.1 10/03/20 06:38: POC Glucose 279 H I & O for Last 24 hours: Intake & Output 09/30/20 10/01/20 10/02/20 10/03/20 11:59 11:59 11:59 11:59 Intake Total 1531 / 1531 1470 / 1470 910 / 910 Output Total 2845 / 2845 1999 / 1999 Balance 1531 / 1531 -1375 / -1375 -1090 / -1090 Weight 281 lb 7 oz 277 lb 7 oz 276 lb Microbiology Reports for the Last 24 Hours: Microbiology 09/30/20 16:26 Blood Blood Culture - Preliminary NO GROWTH AFTER 48 HOURS 09/30/20 16:26 Blood Blood Culture - Preliminary NO GROWTH AFTER 48 HOURS Radiology Reports for the Last 24 Hours: CXR - Slight worsening bilateral pneumonia. - Constitutional no acute distress (coughing) - *Routine Respiratory Exam Present: decreased breath sounds. Absent: rales, rhonchi - *Routine Cardiovascular Exam Present: RRR - *Routine Abdominal Exam Present: soft, normoactive bowel sounds. Absent: tenderness - *Routine Extremities Exam Present: edema (bilateral LE). Absent: cyanosis, clubbing - *Routine Skin Exam Present: warm. Absent: rash - *Routine Neurological Exam Present: alert, oriented X3 Assessment and Plan (1) Acute renal failure Status: Acute Qualifiers: Acute renal failure type: with other specified pathological lesion Qualified Code(s): N17.8 - Other acute kidney failure Category: Medical Code(s): N17.9 - Acute kidney failure, unspecified (2) Acute respiratory failure due to COVID-19 Status: Acute Category: Medical Code(s): U07.1 - COVID-19; J96.00 - Acute respiratory failure, unspecified whether with hypoxia or hypercapnia (3) Community acquired pneumonia Status: Acute Qualifiers: Laterality: right Lung location: unspecified part of lung Qualified Code(s): J18.9 - Pneumonia, unspecified organism Category: Medical Code(s): J18.9 - Pneumonia, unspecified organism (4) Dyspnea Status: Acute Qualifiers: Dyspnea type: dyspnea on exertion Qualified Code(s): R06.00 - Dyspnea, unspecified Category: Medical Code(s): R06.00 - Dyspnea, unspecified (5) Edema Status: Chronic Qualifiers: Edema type: localized Qualified Code(s): R60.0 - Localized edema Category: Medical Code(s): R60.9 - Edema, unspecified (6) CAD (coronary artery disease) Status: Chronic Qualifiers: Coronary Disease-Associated Artery/Lesion type: [place] artery [place] vs. transplanted heart: [place] heart Associated angina: without angina Qualified Code(s): I25.10 - Atherosclerotic heart disease of [place] coronary artery without angina pectoris Category: Medical
--- NOTE | 2020-10-03 08:44 | HMH.CNCARD ---
History of Present Illness Consult date: 10/03/20 Requesting physician: Jeffrey Sun Chief complaint: COVID, V. tach Additional Medical History:: 1. HTN A. Echo, 2019, 1. Mildly enlarged left atrium, normal left ventricular size, mild concentric left ventricular hypertrophy, visually estimated ejection fraction 50% with no regional wall motion abnormality, diastolic parameters are inconclusive. 2. Mildly enlarged right ventricle with normal contractility. 3. Mild mitral and tricuspid regurgitation 4. No significant pericardial effusion noted 2. CAD A. [facility], 02/2017, ANGIOGRAPHIC RESULTS: 1. The left main artery normal 2. The left anterior descending artery is proximally normal with mild luminal irregularities in the mid segment approximately 10% 3. The circumflex artery nondominant with mild 10% luminal irregularities proximally 4. The right coronary artery is a dominant vessel and has a mid vessel concentric 30% stenosis and distal mild luminal irregularities. The posterior descending artery has an ostial 60-70% stenosis and a proximal sequential 50% stenoses. This is a large 2.5 mm caliber vessel. The posterior lateral ventricular branch has an ostial 50-60% stenosis with proximal long 50% stenoses 5. The JOEL ventriculogram reveals normal 65% 6. The left ventricular end-diastolic pressure 10 mmHg IMPRESSION: 1. Moderate to severe disease in the distal dominant right coronary artery 2. Normal ejection fraction 3. Normal left ventricular end-diastolic pressure PLAN: 1. Medical management for distal coronary artery disease 2. LDL less than 70 3. Baby aspirin daily 4. Risk factor modification 5. Cardiac rehabilitation 6. Avoidance of tobacco products 3. CKD, followed by Nephrology A. Baseline Cr about 2.6 with current GFR 24 and CrCl 46 B. Chronic anemia with Hgb around 10-11 4. History of A. fib, 2019 A. Chronic a/c with Xarelto 5. Hyperlipidemia 6. Diabetes mellitus type 2 7. History of tobacco use, discontinued approximately 2005 8. Obstructive sleep apnea with history of CPAP use. History of present illness: Mr. Saldana is a 69-year-old male with a history of hypertension, diabetes mellitus, anemia, sleep apnea, chronic kidney disease stage IV followed by nephrology at , and Covid pneumonia diagnosed 09/28/2020 who presented to [facility] emergency room with progressive shortness of breath. He was originally sent for mono clonal antibody infusion. He had already tested positive for the coronavirus about 4 days prior to this. On arrival patient was found to be very short of breath and hypoxic with low O2 sats. He describes some nonproductive coughs, fevers and chills. He states he has not felt well for several days. With evaluation in the emergency room Chest x-ray revealed worsening bilateral pneumonia. He had had a previous chest x-ray which showed the Covid pneumonia. He had been on Promethazine DM, Zithromax, dexamethasone, zinc and albuterol inhalers without improvement. White blood cell count was 17,200 with a hemoglobin of 10.7 and hematocrit of 31.5. Neutrophils were 92.1%. ABG showed a pH of 7.4 PCO2 of 21.8 PO2 of 55 and a bicarb of 13.3. Blood chemistry showed sodium of 139 potassium of 3.9. BUN was 85 and creatinine 3.1. All Troponin I's have been normal at 0.01 x 3. Liver function tests were not elevated. Patient was thus admitted and placed on routine Covid protocol to include remdesivir, cefdinir, Zithromax, Lovenox and to include normal saline at 100 mL/h. The above per Maureen Jones APRN for Dr. Sun. Patient developed episodes of slow ventricular tachycardia overnight and cardiology has been called consulted for evaluation. Patient denies any chest pain, pressure or tightness. Shortness of breath related to current Covid infection. He is on Ventimask with oxygen at 12 L/min with oxygen saturation at 88 to 90%. Patient does
--- NOTE | 2020-10-03 09:31 | CA_ITS ---
APPROVED REPORT EXAM: Comprehensive 2D, Doppler, and color-flow Echocardiogram Computing Machine Operator: Bonnie Dobbs RVT Ht: 6 ft 3 in Wt: 276lbs BSA: 2.52 BP: 180/82 mmHg Indications: COVID PNEUMONIA,CAD,SVT,A-FIB,CAD,SOA,HTN,HLD TDS-PT SCANNED UPRIGHT IN CHAIR R/T COUGHING 2D Dimensions IVSd 2.21 cm M: 0.6-1.2 LVEF (Visual) 50.00 % PWd 1.36 cm M: 0.6 - 1.2 LVDd 4.80 cm M: 4.2 - 5.9 LVDs 3.58 cm M: 2.5 - 4.0 LVOT 2.47 cm (M/F) 1.5-2.5 M-Mode Dimensions LA Diam 4.21 cm (1.9-4.0) Ao Diam 3.63 cm (2.0-3.7) LV Diastology E Decel Time 327.00 (160-240 msec) E/A Ratio 1.0 MED E' 5.40 (< 7 cm/sec) E'/MED E' Ratio 15.56 (>14) LAT E' 12.10 (<10 cm/sec) E/LAT E' Ratio 6.94 (>14) Mitral Valve MV E Max Rad. 84.00 (40-130 cm/s) MV A Velocity 83.00 (40-130 cm/s) E/A Ratio 1.01 MV Decel. Time 327.00 (160-240 ms) MV PHT 96.00 ms Pulmonary Valve PV Peak Velocity 103.00 (50-150 cm/s) Left Ventricle Left atrium is mildly enlarged, left ventricle is normal size, mild concentric left ventricular hypertrophy, visually estimated ejection fraction 55% with no regional wall motion abnormality, diastolic parameters are inconclusive. Right Ventricle Right atrium and right ventricle mildly enlarged with normal contractility. Aortic Valve Aortic valve is minimally thickened and fibrosed, there is no aortic stenosis or aortic insufficiency. Mitral Valve Mitral valve leaflets are minimally thickened, there is mild mitral regurgitation. Tricuspid Valve Tricuspid valve grossly normal, there is mild tricuspid regurgitation. Pulmonic Valve Pulmonic valve is poorly visualized. Great Vessels Aortic root is normal size. Pericardium No significant pericardial effusion noted. Conclusion 1. Mildly enlarged left atrium, normal left ventricular size, mild concentric left ventricular hypertrophy, visually estimated ejection fraction 55% with no regional wall motion abnormality, diastolic parameters are inconclusive. 2. Mildly enlarged right ventricle with normal contractility. 3. Mild mitral and tricuspid regurgitation. 4. No significant pericardial effusion noted. Electronically signed by : Reilly Martinez, 10/03/2020 16:43:38
--- NOTE | 2020-10-03 11:25 | PC.NURSE ---
Cup given to pt with instruction an understanding .
[2020-10-03 11:45] LABS: POC Glucose,Bedside 332 (70-110)
[2020-10-03 14:52] LABS: Magnesium 2.7 mg/dl (1.6-2.3)
[2020-10-03 17:27] LABS: POC Glucose,Bedside 373 (70-110)
--- NOTE | 2020-10-03 18:31 | PC.NURSE ---
Pt alert and oriented x 4 and able to make needs known. RR even and unlabored at rest, does have exertional soa. Continues on 50 % venti and is sitting up in chair. VSS. , Dr. Sun aware of pauses in tele earlier. Pt denies chest pain. Prn tylenol given r/t back pain. No c/o currently. Meds given per nov.
--- NOTE | 2020-10-03 18:58 | PC.NURSE ---
RT sent SPT to lab from 2nd floor.
[2020-10-03 21:02] LABS: POC Glucose,Bedside 359 (70-110)
--- NOTE | 2020-10-03 22:03 | PC.NURSE ---
2100 COURTESY ROUND SNACK GIVEN AT THIS TIME. TRASH AND LINENS EMPTIED
[2020-10-04] VITALS (8 sets, daily range): BP systolic 152–185; BP diastolic 74–82; PULSE 50–76; RESP 18–21; TEMP 36.4–37.1; O2SAT 89–93; BMI 33.6
--- NOTE | 2020-10-04 04:48 | PC.NURSE ---
no acute changes since prior assessment, pt has remained on venti mask with O2 sats 90-93%, respiratory rate 18-22, does state that he becomes SOA with exertion, breathing is spontaneous and non-labored, no complaints of chest pain, youth nutritional monitor shows first degree AV block, HR has remained 65-68, has remained in chair t/o shift
[2020-10-04 06:48] LABS: POC Glucose,Bedside 256 (70-110)
--- NOTE | 2020-10-04 08:18 | HMH.ACPN2 ---
<Anahi Ortega - Last Filed: 10/04/20 08:18> Internal Medicine - PN: Subj *Date: 10/04/20 *Time: 08:18 Interval history: Patient states he feels about the same today. He still has a productive cough and is on a Ventimask. He states he gets short of breath with any movement and also has some shortness of breath at rest. He did not sleep well last night, but did eat his breakfast this morning. He has some pain in his back. Exam Vital signs and Labs for Last 24 Hours: Temp Pulse Resp BP Pulse Ox 98.0 F 64 21 185/74 H 89 L 10/04/20 08:00 10/04/20 08:00 10/04/20 08:00 10/04/20 08:00 10/04/20 08:00 Laboratory Results - last 24 hr 10/03/20 05:40: Magnesium 2.7 H 10/03/20 10:56: POC Glucose 332 H* 10/03/20 15:55: POC Glucose 373 H* 10/03/20 20:51: POC Glucose 359 H* 10/04/20 06:32: POC Glucose 256 H I & O for Last 24 hours: Intake & Output 10/01/20 10/02/20 10/03/20 10/04/20 11:59 11:59 11:59 11:59 Intake Total 1531 / 1531 1470 / 1470 1750 / 1750 1340 / 1340 Output Total 2845 / 2845 2000 / 2400 2100 / 2100 Balance 1531 / 1531 -1375 / -1375 -250 / -650 -760 / -760 Weight 281 lb 7 oz 277 lb 7 oz 276 lb 276 lb 2.063 oz Microbiology Reports for the Last 24 Hours: Microbiology 10/01/20 17:50 Sputum - Expectorated Sputum Gram Stain - Final 10/01/20 17:50 Sputum - Expectorated Sputum Sputum Culture - Final Radiology Reports for the Last 24 Hours: Echo 1. Mildly enlarged left atrium, normal left ventricular size, mild concentric left ventricular hypertrophy, visually estimated ejection fraction 55% with no regional wall motion abnormality, diastolic parameters are inconclusive. 2. Mildly enlarged right ventricle with normal contractility. 3. Mild mitral and tricuspid regurgitation. 4. No significant pericardial effusion noted. - Constitutional no acute distress - *Routine Respiratory Exam Present: CTA bilaterally - *Routine Cardiovascular Exam Present: RRR - *Routine Abdominal Exam Present: soft, normoactive bowel sounds. Absent: tenderness - *Routine Extremities Exam Present: edema (bilateral LE). Absent: cyanosis, clubbing - *Routine Skin Exam Present: warm. Absent: rash - *Routine Neurological Exam Present: alert, oriented X3 Assessment and Plan (1) Acute respiratory failure due to COVID-19 Status: Acute Category: Medical Code(s): U07.1 - COVID-19; J96.00 - Acute respiratory failure, unspecified whether with hypoxia or hypercapnia (2) Acute renal failure Status: Acute Qualifiers: Acute renal failure type: with other specified pathological lesion Qualified Code(s): N17.8 - Other acute kidney failure Category: Medical Code(s): N17.9 - Acute kidney failure, unspecified (3) Community acquired pneumonia Status: Acute Qualifiers: Laterality: right Lung location: unspecified part of lung Qualified Code(s): J18.9 - Pneumonia, unspecified organism Category: Medical Code(s): J18.9 - Pneumonia, unspecified organism (4) Dyspnea Status: Acute Qualifiers: Dyspnea type: dyspnea on exertion Qualified Code(s): R06.00 - Dyspnea, unspecified Category: Medical Code(s): R06.00 - Dyspnea, unspecified (5) Edema Status: Chronic Qualifiers: Edema type: localized Qualified Code(s): R60.0 - Localized edema Category: Medical Code(s): R60.9 - Edema, unspecified (6) CAD (coronary artery disease) Status: Chronic Qualifiers: Coronary Disease-Associated Artery/Lesion type: [place] artery [place] vs. transplanted heart: [place] heart Associated angina: without angina Qualified Code(s): I25.10 - Atherosclerotic heart disease of [place] coronary artery without angina pectoris Category: Medical Code(s): I25.10 - Atherosclerotic heart disease of [place] coronary artery without angina pectoris (7) Chronic a-fib Status: Chronic Category: Medical Code(s): I48.20 - Chronic atrial fibrillation, uns
--- NOTE | 2020-10-04 08:26 | HMH.ACPN ---
Internal Medicine - PN: Subj *Date: 10/04/20 *Time: 08:26 Exam Vital signs and Labs for Last 24 Hours: Temp Pulse Resp BP Pulse Ox 98.0 F 64 21 185/74 H 89 L 10/04/20 08:00 10/04/20 08:00 10/04/20 08:00 10/04/20 08:00 10/04/20 08:00 Laboratory Results - last 24 hr 10/03/20 05:40: Magnesium 2.7 H 10/03/20 10:56: POC Glucose 332 H* 10/03/20 15:55: POC Glucose 373 H* 10/03/20 20:51: POC Glucose 359 H* 10/04/20 06:32: POC Glucose 256 H I & O for Last 24 hours: Intake & Output 10/01/20 10/02/20 10/03/20 10/04/20 23:59 23:59 23:59 23:59 Intake Total 2521 / 2521 1390 / 1390 1820 / 1820 360 / 360 Output Total 420 / 420 3625 / 4425 2400 / 2400 500 / 500 Balance 2101 / 2101 -2235 / -3035 -580 / -580 -140 / -140 Weight 126 kg 125.191 kg 125.25 kg Microbiology Reports for the Last 24 Hours: Microbiology 10/01/20 17:50 Sputum - Expectorated Sputum Gram Stain - Final 10/01/20 17:50 Sputum - Expectorated Sputum Sputum Culture - Final Assessment and Plan (1) Acute respiratory failure due to COVID-19 Status: Acute Category: Medical Code(s): U07.1 - COVID-19; J96.00 - Acute respiratory failure, unspecified whether with hypoxia or hypercapnia (2) Acute renal failure Status: Acute Qualifiers: Acute renal failure type: with other specified pathological lesion Qualified Code(s): N17.8 - Other acute kidney failure Category: Medical Code(s): N17.9 - Acute kidney failure, unspecified (3) Community acquired pneumonia Status: Acute Qualifiers: Laterality: right Lung location: unspecified part of lung Qualified Code(s): J18.9 - Pneumonia, unspecified organism Category: Medical Code(s): J18.9 - Pneumonia, unspecified organism (4) Dyspnea Status: Acute Qualifiers: Dyspnea type: dyspnea on exertion Qualified Code(s): R06.00 - Dyspnea, unspecified Category: Medical Code(s): R06.00 - Dyspnea, unspecified (5) Edema Status: Chronic Qualifiers: Edema type: localized Qualified Code(s): R60.0 - Localized edema Category: Medical Code(s): R60.9 - Edema, unspecified (6) CAD (coronary artery disease) Status: Chronic Qualifiers: Coronary Disease-Associated Artery/Lesion type: [place] artery [place] vs. transplanted heart: [place] heart Associated angina: without angina Qualified Code(s): I25.10 - Atherosclerotic heart disease of [place] coronary artery without angina pectoris Category: Medical Code(s): I25.10 - Atherosclerotic heart disease of [place] coronary artery without angina pectoris (7) Chronic a-fib Status: Chronic Category: Medical Code(s): I48.20 - Chronic atrial fibrillation, unspecified (8) Diabetes Status: Chronic Qualifiers: Diabetes mellitus type: type 2 Diabetes mellitus intermediate insulin use: without long term care phlebotomist use Diabetes mellitus complication status: without complication Qualified Code(s): E11.9 - Type 2 diabetes mellitus without complications Category: Medical Code(s): E11.9 - Type 2 diabetes mellitus without complications (9) Ex-smoker Status: Chronic Category: Social Hx Code(s): Z87.891 - Personal history of nicotine dependence (10) Hyperlipidemia Status: Chronic Qualifiers: Hyperlipidemia type: other hyperlipidemia Qualified Code(s): E78.49 - Other hyperlipidemia Category: Medical Code(s): E78.5 - Hyperlipidemia, unspecified (11) Hypertensive disorder Problem details: Status: Chronic Qualifiers: Hypertension type: essential hypertension Qualified Code(s): I10 - Essential (primary) hypertension Category: Medical Code(s): I10 - Essential (primary) hypertension (12) snf current use of anticoagulant Status: Chronic Category: Medical Code(s): Z79.01 - intermission coordinator (current) use of anticoagulants The patient's infection will respond to the chosen ABx?: Yes Is the patient receiving the right drug, dose, and route?:
--- NOTE | 2020-10-04 10:19 | DIET.NUTRFU ---
Addendum entered by Terra Whitney 10/09/20 09:38: PO intakes 100%, weight down 5# past 24h rt diuresis, slight decline renal function, 2+ BLE edema, BG remain high- avg. past 00u=787. No changes to ADA/2g Na diet, continuing to monitor. Addendum entered by Terra Whitney 10/07/20 13:50: PO intakes 100%, weight up 11# past 24h, renal function stable/remains poor, 1+ edema. BG remain high, critical at times- avg. past 60q=665 ADA/2g Na diet, no changes, continuing to monitor. Original Note: PO intakes 75-100%, weight stable, 2+ BLE pitting edema, renal function stable, BG have high- avg. 330 No changes to current diet- ADA/2G Na, continuing to monitor.
[2020-10-04 10:30] LABS: Basophils % 0.2 % (0.1-2.0); Chloride 110 mmol/L (98-107); Hematocrit 31.3 % (42.0-52.0); Hemoglobin 10.4 g/dL (14.1-18.0); Lymphocytes % 6.5 % (10-50); Mean Corpuscular HGB Conc 33.1 g/dL (31.8-35.4); Mean Corpuscular Hemoglobin 29.3 pg (27.0-31.2); Mean Corpuscular Volume 88.6 fl (80-94); Mean Platelet Volume 9.2 fl (7.4-10.4); Monocytes # 0.6 K/mm3 (0.1-1.0); Monocytes % 3.9 % (1.7-9.3); Neutrophils # 13.9 K/mm3 (1.8-7.8); Neutrophils % 89.3 % (37.0-80.0); Platelet Count 381 K/mm3 (142-424); Red Blood Count 3.53 M/mm3 (4.60-6.20); Red Cell Distribution Width 14.3 % (11.5-17.5); White Blood Count 15.6 K/mm3 (4.8-10.8)
[2020-10-04 10:31] LABS: MANUAL DIFFERENTIAL MANUAL DIFFERENTIAL (MANUAL DIFF); Potassium 4.8 mmoL/L (3.5-5.1); Sodium 136 mmol/L (136-145)
[2020-10-04 10:33] LABS: Alanine Aminotransferase 32 U/L (12-78); Aspartate Amino Transferase 26 U/L (17-59); Creatinine Clearance Estimated 48 mL/min (50-200); Estimated Glomerular Filt Rate 26 ml/min (>60); GFR (African American) 31 ML/MIN (>60)
[2020-10-04 10:34] LABS: Albumin Level 3.6 g/dl (3.5-5.0); Alkaline Phosphatase 95 U/L (38-126); Anion Gap 15.8 mEq/L (5-15); Bilirubin,Total 0.5 mg/dl (0.2-1.3); Calcium 9.7 mg/dl (8.4-10.2); Carbon Dioxide 15 mmol/L (22.0-30.0); Globulin 3.5 g/dL (1.3-3.2); Glucose 335 mg/dl (74-100); Total Protein,Serum 7.1 g/dl (6.3-8.2)
[2020-10-04 10:36] LABS: Blood Urea Nitrogen 76 mg/dl (9-20)
--- NOTE | 2020-10-04 10:38 | HMH.PNCARD ---
Subjective Date: 10/04/20 Time: 09:00 Principal diagnosis: Covid pneumonia and Chronic Atrial fib Interval history: 69-year-old male admitted to [facility] with Covid pneumonia and respiratory distress. While admitted to [facility] patient had an episode of nonsustained V. tach in which he was started on carvedilol 12.5 twice daily. Patient has had no further episodes of ventricular tachycardia. Patient does have history of chronic atrial fibrillation. Patient is on Xarelto daily. Denies any bleeding issues. Covid protocol is being followed and managed by PCP and pulmonology. Patient does complain of productive cough. Patient complains of shortness of breath with exertion. Patient is noted on a Ventimask. Patient denies chest pain, tightness or pressure. No swelling noted of the lower extremities. Echocardiogram was performed which revealed EF 55% with no wall motion abnormality. Overall patient stated he is unsure if he is improving. Due to patient not having any further nonsustained ventricular arrhythmia and controlled rate for atrial fibrillation we will continue current carvedilol dose. We will continue Xarelto. We will continue to monitor heart rate and vital signs. Please notify cardiology and any change in patient's condition. Thank you for letting cardiology participate in the care of this patient. Exam Vital signs and Labs for Last 24 Hours: Temp Pulse Resp BP Pulse Ox 98.0 F 64 21 185/74 H 92 L 10/04/20 08:00 10/04/20 08:00 10/04/20 08:00 10/04/20 08:00 10/04/20 08:00 Laboratory Results - last 24 hr 10/03/20 05:40: Magnesium 2.7 H 10/03/20 10:56: POC Glucose 332 H* 10/03/20 15:55: POC Glucose 373 H* 10/03/20 20:51: POC Glucose 359 H* 10/04/20 06:32: POC Glucose 256 H 10/04/20 10:12: Sodium 136, Potassium 4.8, Chloride 110 H, Carbon Dioxide 15 L, Anion Gap 15.8 H, BUN 76 H, Creatinine 2.50 H, Estimated Creat Clear 48, Estimated GFR 26 L, Est GFR ( Amer) 31 L, Glucose 335 H, Calcium 9.7, Total Bilirubin 0.5, AST 26, ALT 32, Alkaline Phosphatase 95, Total Protein 7.1, Albumin 3.6, Globulin 3.5 H, Albumin/Globulin Ratio 1.0 L 10/04/20 10:12: WBC 15.6 H, RBC 3.53 L, Hgb 10.4 L, Hct 31.3 L, MCV 88.6, MCH 29.3, MCHC 33.1, RDW 14.3, Plt Count 381, MPV 9.2, Neut % (Auto) 89.3 H, Lymph % (Auto) 6.5 L, [place] % (Auto) 3.9, Eos % (Auto) 0.0 L, Baso % (Auto) 0.2, Neut # (Auto) 13.9 H, Lymph # (Auto) 1.0, [place] # (Auto) 0.6, Eos # (Auto) 0.0, Baso # (Auto) 0.0 I & O for Last 24 hours: Intake & Output 10/01/20 10/02/20 10/03/20 10/04/20 23:59 23:59 23:59 23:59 Intake Total 2521 / 2521 1390 / 1390 1820 / 1820 360 / 360 Output Total 420 / 420 3625 / 4425 2400 / 2400 500 / 500 Balance 2101 / 2101 -2235 / -3035 -580 / -580 -140 / -140 Weight 277 lb 12.519 oz 276 lb 276 lb 2.063 oz Microbiology Reports for the Last 24 Hours: Microbiology 10/01/20 17:50 Sputum - Expectorated Sputum Gram Stain - Final 10/01/20 17:50 Sputum - Expectorated Sputum Sputum Culture - Final - Constitutional mild distress, cooperative - *Routine HEENT Exam Head: Present: normocephalic ENT: Present: mucous membranes moist - *Routine Neck Exam Present: supple, full ROM, normal carotid upstroke. Absent: JVD, carotid bruit, lymphadenopathy - Routine Chest/Breast/Axilla Exam Chest wall: Absent: mass, pacemaker - *Routine Respiratory Exam Present: CTA bilaterally, diminished air movement - *Routine Cardiovascular Exam Present: RRR, Normal S1, Normal S2, bradycardia, irregular rhythm. Absent: murmur, JVD - *Routine Abdominal Exam Present: soft, normoactive bowel sounds. Absent: distended - *Routine Extremities Exam Present: full ROM, pulses intact. Absent: edema - *Routine Skin Exam Present: intact, dry - *Routine Neurological Exam Present: alert, oriented X3, moving all extremities - Routine Psychiatric Exam Present: normal affect, normal thought proce
--- NOTE | 2020-10-04 10:40 | PC.NURSE ---
NOTIFIED DR STRANGE'S OFFICE OF LAB VALUES.
[2020-10-04 11:40] LABS: Lymphocytes % 8 % (10-50); Monocytes % 2 % (2-9); Neutrophils % 83 % (42-76); Platelet Estimate Normal; RBC Morphology Normal; Total Cells Counted 100
[2020-10-04 12:03] LABS: POC Glucose,Bedside 339 (70-110)
--- NOTE | 2020-10-04 18:14 | PC.NURSE ---
HE IS AOX4, ABLE TO MAKE NEEDS KNOWN TO STAFF, PT HAS REMAINED ON THE VENTI MASK T/O SHIFT, O2 SATS HAVE BEEN 88-91 ON 15LPM, HAS TOLERATED PO INTAKE WELL, HEATING PAD IN PLACE PER MD STRANGE, PT STATES ADEQUATE PAIN RELIEF, HAS BEEN UP TO CHAIR FOR MOST ALL OF SHIFT, DENIED N/V/D, NO NEEDS AT THIS TIME
--- NOTE | 2020-10-04 21:18 | PC.NURSE ---
pt is on venti mask 15L 50%
[2020-10-04 21:48] LABS: POC Glucose,Bedside 452 (70-110)
[2020-10-05] VITALS (8 sets, daily range): BP systolic 109–167; BP diastolic 71–83; PULSE 60–71; RESP 19–28; TEMP 36.4–36.7; O2SAT 86–93; BMI 34.2
[2020-10-05 00:58] LABS: POC Glucose,Bedside 342 (70-110)
[2020-10-05 06:11] LABS: Alanine Aminotransferase 31 U/L (12-78); Albumin Level 3.6 g/dl (3.5-5.0); Alkaline Phosphatase 86 U/L (38-126); Anion Gap 14.1 mEq/L (5-15); Aspartate Amino Transferase 24 U/L (17-59); Bilirubin,Total 0.4 mg/dl (0.2-1.3); Calcium 9.6 mg/dl (8.4-10.2); Carbon Dioxide 15 mmol/L (22.0-30.0); Chloride 110 mmol/L (98-107); Creatinine Clearance Estimated 51 mL/min (50-200); Estimated Glomerular Filt Rate 27 ml/min (>60); GFR (African American) 32 ML/MIN (>60); Globulin 3.5 g/dL (1.3-3.2); Glucose 188 mg/dl (74-100); Potassium 5.1 mmoL/L (3.5-5.1); Sodium 134 mmol/L (136-145); Total Protein,Serum 7.1 g/dl (6.3-8.2)
[2020-10-05 06:18] LABS: POC Glucose,Bedside 184 (70-110)
--- NOTE | 2020-10-05 06:52 | PC.NURSE ---
MD Sun notified of notification lab result [id number]
[2020-10-05 07:11] LABS: Blood Urea Nitrogen 76 mg/dl (9-20)
--- NOTE | 2020-10-05 07:22 | PC.NURSE ---
Pt is A&Ox4. Lung sounds diminished t/o. No productive cough noted this shift. Active bowel sounds in all 4 quads. No BM noted this shift. Pt will desat to upper 70's when venti mask is removed but will recover after approx 3 min to 88-89%. Pt continues to get SOA during exertion. No other acute changes or complaints at this time.
--- NOTE | 2020-10-05 08:34 | HMH.ACPN2 ---
Internal Medicine - PN: Subj *Date: 10/05/20 *Time: 08:34 Interval history: Patient with no new complaints today Exam Vital signs and Labs for Last 24 Hours: Temp Pulse Resp BP Pulse Ox 98.0 F 60 22 109/72 L 91 L 10/05/20 04:00 10/05/20 04:00 10/05/20 04:00 10/05/20 04:00 10/05/20 06:26 Laboratory Results - last 24 hr 10/04/20 10:12: Sodium 136, Potassium 4.8, Chloride 110 H, Carbon Dioxide 15 L, Anion Gap 15.8 H, BUN 76 H, Creatinine 2.50 H, Estimated Creat Clear 48, Estimated GFR 26 L, Est GFR ( Amer) 31 L, Glucose 335 H, Calcium 9.7, Total Bilirubin 0.5, AST 26, ALT 32, Alkaline Phosphatase 95, Total Protein 7.1, Albumin 3.6, Globulin 3.5 H, Albumin/Globulin Ratio 1.0 L 10/04/20 10:12: WBC 15.6 H, RBC 3.53 L, Hgb 10.4 L, Hct 31.3 L, MCV 88.6, MCH 29.3, MCHC 33.1, RDW 14.3, Plt Count 381, MPV 9.2, Neut % (Auto) 89.3 H, Lymph % (Auto) 6.5 L, [place] % (Auto) 3.9, Eos % (Auto) 0.0 L, Baso % (Auto) 0.2, Neut # (Auto) 13.9 H, Lymph # (Auto) 1.0, [place] # (Auto) 0.6, Eos # (Auto) 0.0, Baso # (Auto) 0.0, Total Counted 100, Neutrophils % (Manual) 83 H, Band Neutrophils % 6.0, Lymphocytes % (Manual) 8 L, Monocytes % (Manual) 2, Metamyelocytes % 1.0, Platelet Estimate Normal, RBC Morphology Normal 10/04/20 11:16: POC Glucose 339 H* 10/04/20 16:48: POC Glucose 342 H* 10/04/20 20:17: POC Glucose 452 H* 10/05/20 05:54: Sodium 134 L, Potassium 5.1, Chloride 110 H, Carbon Dioxide 15 L, Anion Gap 14.1, BUN 76 H, Creatinine 2.40 H, Estimated Creat Clear 51, Estimated GFR 27 L, Est GFR ( Amer) 32 L, Glucose 188 H D, Calcium 9.6, Total Bilirubin 0.4, AST 24, ALT 31, Alkaline Phosphatase 86, Total Protein 7.1, Albumin 3.6, Globulin 3.5 H, Albumin/Globulin Ratio 1.0 L 10/05/20 06:11: POC Glucose 184 H Vital Signs - 24 hr 10/04/20 11:57 10/04/20 12:00 10/04/20 16:00 Temperature 98.1 F 98.2 F Pulse Rate 70 70 Pulse Rate [Left Radial] 66 76 Respiratory Rate 20 19 Blood Pressure [Right Arm] 152/79 H 152/74 H 02 Sat by Pulse Oximetry 93 L 91 L 10/04/20 20:00 10/05/20 00:00 10/05/20 04:00 Temperature 98.8 F 97.8 F 98.0 F Pulse Rate 60 60 60 Pulse Rate [Left Radial] 67 60 60 Respiratory Rate 20 22 22 Blood Pressure [Right Arm] 171/82 H 146/72 H 109/72 L 02 Sat by Pulse Oximetry 90 L 91 L 92 L 10/05/20 06:26 Temperature Pulse Rate Pulse Rate [Left Radial] Respiratory Rate Blood Pressure [Right Arm] 02 Sat by Pulse Oximetry 91 L I & O for Last 24 hours: Intake & Output 10/02/20 10/03/20 10/04/20 10/05/20 23:59 23:59 23:59 23:59 Intake Total 1390 / 1390 1820 / 1820 1200 / 1200 Output Total 3625 / 4425 2400 / 2400 1000 / 1000 700 / 700 Balance -2235 / -3035 -580 / -580 200 / 200 -700 / -700 Weight 277 lb 12.519 oz 276 lb 276 lb 2.063 oz 281 lb 6.016 oz - Constitutional no acute distress - *Routine HEENT Exam Head: Present: normocephalic Eye: Present: EOMI ENT: Present: mucous membranes moist - *Routine Neck Exam Present: supple. Absent: lymphadenopathy - *Routine Respiratory Exam Present: crackles (few). Absent: wheezes - *Routine Cardiovascular Exam Present: RRR, bradycardia - *Routine Abdominal Exam Present: soft, normoactive bowel sounds. Absent: tenderness - *Routine Extremities Exam Absent: cyanosis, clubbing, edema - *Routine Skin Exam Present: warm. Absent: rash - *Routine Neurological Exam Present: alert, oriented X3 Assessment and Plan (1) Acute respiratory failure due to COVID-19 Status: Acute Category: Medical Code(s): U07.1 - COVID-19; J96.00 - Acute respiratory failure, unspecified whether with hypoxia or hypercapnia (2) Acute renal failure Status: Acute Qualifiers: Acute renal failure type: with other specified pathological lesion Qualified Code(s): N17.8 - Other acute kidney failure Category: Medical Code(s): N17.9 - Acute kidney failure, unspecified (3) Community acquired pneumonia Status: Acute Qualifiers: [place]
[2020-10-05 11:24] LABS: POC Glucose,Bedside 270 (70-110)
[2020-10-05 17:16] LABS: POC Glucose,Bedside 330 (70-110)
--- NOTE | 2020-10-05 19:25 | PC.NURSE ---
PT IS SITTING UP IN THE CHAIR. PT STATES HE IS NOT COMFORTABLE IN THE BED. O2 SATURATION HAS MAINTAINED 88-93% ON 50% VENTI MASK. O2 SATURATION WILL DROP TO THE LOW 80'S WHEN PT REMOVES THE VENTI MASK TO EAT. 2+ PITTING EDEMA NOTED TO BLE. PT WAS ENCOURAGED TO ELEVATE BLE MUCH POSSIBLE. EATING AND DRINKING WELL. LUNG SOUNDS HAVE FINE CRACKLES IN THE BASES. ABDOMEN SOFT/LARGE WITH ACTIVE BOWEL SOUNDS. USING URINAL TO VOID. ELEVATED BLOOD SUGARS. WILL CONTINUE TO MONITOR.
[2020-10-05 22:40] LABS: POC Glucose,Bedside 406 (70-110)
[2020-10-06] VITALS (7 sets, daily range): BP systolic 137–155; BP diastolic 67–83; PULSE 50–70; RESP 20–22; TEMP 35.8–36.4; O2SAT 88–97; BMI 366.1
--- NOTE | 2020-10-06 04:38 | PC.NURSE ---
Pt remains A&Ox4. Expiratory wheezing noted t/o all lung garcia. Dry, nonproductive cough noted. Pt has shown some bradycardia on tele w/ HR between 35-38 bpm and would last at most 3 seconds. Pt would desat to lower 70's when taking venturi mask off. 1+ non-pitting edema noted to bilateral lower extremities. No other complaints or acute changes at this time.
[2020-10-06 06:28] LABS: Chloride 110 mmol/L (98-107); Potassium 5.3 mmoL/L (3.5-5.1); Sodium 135 mmol/L (136-145)
[2020-10-06 06:30] LABS: Creatinine Clearance Estimated -12 mL/min (50-200); Estimated Glomerular Filt Rate 23 ml/min (>60); GFR (African American) 28 ML/MIN (>60)
[2020-10-06 06:31] LABS: Alanine Aminotransferase 31 U/L (12-78); Albumin Level 3.4 g/dl (3.5-5.0); Albumin/Globulin Ratio 0.9 (1.1-1.8); Alkaline Phosphatase 87 U/L (38-126); Anion Gap 16.3 mEq/L (5-15); Aspartate Amino Transferase 21 U/L (17-59); Bilirubin,Total 0.4 mg/dl (0.2-1.3); Carbon Dioxide 14 mmol/L (22.0-30.0); Globulin 3.6 g/dL (1.3-3.2)
[2020-10-06 06:32] LABS: Calcium 9.7 mg/dl (8.4-10.2); Glucose 213 mg/dl (74-100)
[2020-10-06 06:37] LABS: Blood Urea Nitrogen 76 mg/dl (9-20)
[2020-10-06 06:47] LABS: POC Glucose,Bedside 201 (70-110)
--- NOTE | 2020-10-06 08:02 | HMH.ACPN2 ---
Internal Medicine - PN: Subj *Date: 10/06/20 *Time: 08:13 Interval history: Patient with no new complaints today, still gets very SOB with any activity. Exam Vital signs and Labs for Last 24 Hours: Temp Pulse Resp BP Pulse Ox 97.6 F 50 L 22 137/77 88 L 10/06/20 03:58 10/06/20 04:00 10/06/20 03:58 10/06/20 03:58 10/06/20 03:58 Laboratory Results - last 24 hr 10/05/20 10:54: POC Glucose 270 H 10/05/20 16:48: POC Glucose 330 H* 10/05/20 21:32: POC Glucose 406 H* 10/06/20 05:22: Sodium 135 L, Potassium 5.3 H, Chloride 110 H, Carbon Dioxide 14 L, Anion Gap 16.3 H, BUN 76 H, Creatinine 2.70 H, Estimated Creat Clear -12 L, Estimated GFR 23 L, Est GFR ( Amer) 28 L, Glucose 213 H, Calcium 9.7, Total Bilirubin 0.4, AST 21, ALT 31, Alkaline Phosphatase 87, Total Protein 7.0, Albumin 3.4 L, Globulin 3.6 H, Albumin/Globulin Ratio 0.9 L 10/06/20 06:36: POC Glucose 201 H Vital Signs - 24 hr 10/05/20 12:00 10/05/20 16:00 10/05/20 20:00 Temperature 97.5 F L 97.7 F 97.7 F Pulse Rate 70 60 Pulse Rate [Left Radial] 68 69 70 Pulse Rate [Right] Respiratory Rate 28 H 19 24 Blood Pressure [Right Arm] 164/77 H 167/83 H 167/76 H 02 Sat by Pulse Oximetry 86 L 93 L 90 L 10/06/20 00:00 10/06/20 03:58 10/06/20 04:00 Temperature 97.5 F L 97.6 F Pulse Rate 50 L 50 L Pulse Rate [Left Radial] Pulse Rate [Right] 59 L 55 L Respiratory Rate 22 22 Blood Pressure [Right Arm] 143/71 H 137/77 02 Sat by Pulse Oximetry 93 L 88 L I & O for Last 24 hours: Intake & Output 10/03/20 10/04/20 10/05/20 10/06/20 23:59 23:59 23:59 23:59 Intake Total 1820 / 1820 1200 / 1200 1080 / 1080 Output Total 2400 / 2400 1000 / 1000 3350 / 3725 1275 / 1275 Balance -580 / -580 200 / 200 -2270 / -2645 -1275 / -1275 Weight 276 lb 276 lb 2.063 oz 281 lb 6.016 oz 279 lb 5 oz Microbiology Reports for the Last 24 Hours: Microbiology 09/30/20 16:26 Blood Blood Culture - Final NO GROWTH AFTER 5 DAYS 09/30/20 16:26 Blood Blood Culture - Final NO GROWTH AFTER 5 DAYS - Constitutional no acute distress - *Routine Respiratory Exam Present: crackles (rare, bibasilar). Absent: wheezes - *Routine Cardiovascular Exam Present: RRR Assessment and Plan (1) Acute respiratory failure due to COVID-19 Status: Acute Category: Medical Code(s): U07.1 - COVID-19; J96.00 - Acute respiratory failure, unspecified whether with hypoxia or hypercapnia (2) Acute renal failure Status: Acute Qualifiers: Acute renal failure type: with other specified pathological lesion Qualified Code(s): N17.8 - Other acute kidney failure Category: Medical Code(s): N17.9 - Acute kidney failure, unspecified (3) Community acquired pneumonia Status: Acute Qualifiers: Laterality: right Lung location: unspecified part of lung Qualified Code(s): J18.9 - Pneumonia, unspecified organism Category: Medical Code(s): J18.9 - Pneumonia, unspecified organism (4) Dyspnea Status: Acute Qualifiers: Dyspnea type: dyspnea on exertion Qualified Code(s): R06.00 - Dyspnea, unspecified Category: Medical Code(s): R06.00 - Dyspnea, unspecified (5) Edema Status: Chronic Qualifiers: Edema type: localized Qualified Code(s): R60.0 - Localized edema Category: Medical Code(s): R60.9 - Edema, unspecified (6) CAD (coronary artery disease) Status: Chronic Qualifiers: Coronary Disease-Associated Artery/Lesion type: [place] artery [place] vs. transplanted heart: [place] heart Associated angina: without angina Qualified Code(s): I25.10 - Atherosclerotic heart disease of [place] coronary artery without angina pectoris Category: Medical Code(s): I25.10 - Atherosclerotic heart disease of [place] coronary artery without angina pectoris (7) Chronic a-fib Status: Chronic Category: Medical Code(s): I48.20 - Chronic atrial fibrillati
[2020-10-06 11:55] LABS: POC Glucose,Bedside 286 (70-110)
--- NOTE | 2020-10-06 14:48 | PC.NURSE ---
PT IS SITTING UP IN THE CHAIR. ALERT AND ORIENTED X4. RESPIRATORY ATTEMPTED TO SWITCH PT FROM VENTI MASK TO O2 NC. O2 SATURATION DROPPED TO THE LOW 80'S. PT HAS BEEN STAYING IN THE RECLINER ALL DAY AND NIGHT. REFUSES TO LAY IN THE BED. 2+ PITTING EDEMA NOTED TO BLE. WHEN PT IS ASKED HOW HE IS FEELING THE RESPONSE HAS ALWAYS BEEN I DON'T KNOW PT HAS BEEN EATING AND DRINKING WELL. VSS. LUNG SOUNDS DIMINISHED. ABDOMEN SOFT/NON TENDER WITH ACTIVE BOWEL SOUNDS. WILL CONTINUE TO MONITOR.
--- NOTE | 2020-10-06 16:43 | XR_ITS ---
PROCEDURE: XR CHEST PORTABLE CLINICAL HISTORY: Covid19 pneumonia, respiratory failure, shortness of breath COMPARISON: No exams were available for comparison FINDINGS: 1700 hours. There remains diffuse bilateral pneumonia in upper and lower lobes with sparing of the lung apices. This is overall not significantly changed no evidence of pneumothorax. No acute bony abnormalities. IMPRESSION: No change diffuse bilateral pneumonia Dictated by: Gabriel Seth MD 10/07/2020 05:55 Gabriel Seth MD in [facility] 10/07/2020 05:55
[2020-10-06 17:00] LABS: POC Glucose,Bedside 344 (70-110)
[2020-10-06 22:45] LABS: POC Glucose,Bedside 333 (70-110)
[2020-10-07] VITALS (9 sets, daily range): BP systolic 130–155; BP diastolic 68–82; PULSE 50–86; RESP 20–22; TEMP 35.8–36.9; O2SAT 90–96; BMI 35.2
[2020-10-07 07:04] LABS: POC Glucose,Bedside 236 (70-110)
--- NOTE | 2020-10-07 09:02 | PC.NURSE ---
Ptis A&Ox4. Lung sounds diminished t/o. Dry non productive cough noted. +2 pitting edema noted to BLE. Pt refused to prop legs up on shower stool or in recliner, states I cough too much and am comfortable like I am . Pt has had no other episodes of bradycardia <50 this shift. No other acute changes or complaints.
--- NOTE | 2020-10-07 09:19 | HMH.ACPN2 ---
Internal Medicine - PN: Subj *Date: 10/07/20 *Time: 09:19 Interval history: Patient feels a little better this morning. Exam Vital signs and Labs for Last 24 Hours: Temp Pulse Resp BP Pulse Ox 97.7 F 54 L 20 149/73 H 93 L 10/07/20 08:00 10/07/20 08:00 10/07/20 08:00 10/07/20 08:00 10/07/20 08:00 Laboratory Results - last 24 hr 10/06/20 11:29: POC Glucose 286 H 10/06/20 16:37: POC Glucose 344 H* 10/06/20 22:07: POC Glucose 333 H* 10/07/20 06:56: POC Glucose 236 H Vital Signs - 24 hr 10/06/20 12:00 10/06/20 16:00 10/06/20 20:00 Temperature 97.1 F L 96.4 F L 97.6 F Pulse Rate 50 L 50 L 70 Pulse Rate [Left Radial] 60 62 65 Respiratory Rate 20 20 20 Blood Pressure [Right Arm] 142/80 H 155/83 H 150/71 H 02 Sat by Pulse Oximetry 93 L 97 94 L 10/07/20 00:00 10/07/20 04:00 10/07/20 08:00 Temperature 97.9 F 96.5 F L 97.7 F Pulse Rate 50 L 60 Pulse Rate [Left Radial] 59 L 57 L 54 L Respiratory Rate 20 21 20 Blood Pressure [Right Arm] 138/82 141/74 H 149/73 H 02 Sat by Pulse Oximetry 94 L 94 L 93 L I & O for Last 24 hours: Intake & Output 10/04/20 10/05/20 10/06/20 10/07/20 23:59 23:59 23:59 23:59 Intake Total 1200 / 1200 1080 / 1080 1320 / 1820 980 / 980 Output Total 1000 / 1000 3350 / 3725 2775 / 2775 850 / 850 Balance 200 / 200 -2270 / -2645 -1455 / -955 130 / 130 Weight 276 lb 2.063 oz 281 lb 6.016 oz 279 lb 5 oz 289 lb 5.002 oz - Constitutional no acute distress - *Routine HEENT Exam Head: Present: normocephalic Eye: Present: EOMI ENT: Present: mucous membranes moist - *Routine Neck Exam Present: supple. Absent: lymphadenopathy - *Routine Respiratory Exam Present: crackles (few bibasilar). Absent: wheezes - *Routine Cardiovascular Exam Present: RRR, bradycardia - *Routine Abdominal Exam Present: soft, normoactive bowel sounds. Absent: tenderness - *Routine Extremities Exam Present: edema (1+ bilateral legs). Absent: cyanosis, clubbing - *Routine Skin Exam Present: warm. Absent: rash - *Routine Neurological Exam Present: alert, oriented X3 Assessment and Plan (1) Acute respiratory failure due to COVID-19 Status: Acute Category: Medical Code(s): U07.1 - COVID-19; J96.00 - Acute respiratory failure, unspecified whether with hypoxia or hypercapnia (2) Acute renal failure Status: Acute Qualifiers: Acute renal failure type: with other specified pathological lesion Qualified Code(s): N17.8 - Other acute kidney failure Category: Medical Code(s): N17.9 - Acute kidney failure, unspecified (3) Community acquired pneumonia Status: Acute Qualifiers: Laterality: right Lung location: unspecified part of lung Qualified Code(s): J18.9 - Pneumonia, unspecified organism Category: Medical Code(s): J18.9 - Pneumonia, unspecified organism (4) Dyspnea Status: Acute Qualifiers: Dyspnea type: dyspnea on exertion Qualified Code(s): R06.00 - Dyspnea, unspecified Category: Medical Code(s): R06.00 - Dyspnea, unspecified (5) Edema Status: Chronic Qualifiers: Edema type: localized Qualified Code(s): R60.0 - Localized edema Category: Medical Code(s): R60.9 - Edema, unspecified (6) CAD (coronary artery disease) Status: Chronic Qualifiers: Coronary Disease-Associated Artery/Lesion type: [place] artery [place] vs. 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
--- NOTE | 2020-10-07 11:53 | HMH.ACPN ---
Internal Medicine - PN: Subj *Date: 10/07/20 *Time: 11:53 Exam Vital signs and Labs for Last 24 Hours: Temp Pulse Resp BP Pulse Ox 98.5 F 86 20 138/68 94 L 10/07/20 11:45 10/07/20 11:45 10/07/20 11:45 10/07/20 11:45 10/07/20 11:45 Laboratory Results - last 24 hr 10/06/20 11:29: POC Glucose 286 H 10/06/20 16:37: POC Glucose 344 H* 10/06/20 22:07: POC Glucose 333 H* 10/07/20 06:56: POC Glucose 236 H I & O for Last 24 hours: Intake & Output 10/04/20 10/05/20 10/06/20 10/07/20 23:59 23:59 23:59 23:59 Intake Total 1200 / 1200 1080 / 1080 1320 / 1820 980 / 980 Output Total 1000 / 1000 3350 / 3725 2775 / 2775 850 / 850 Balance 200 / 200 -2270 / -2645 -1455 / -955 130 / 130 Weight 125.25 kg 127.63 kg 126.694 kg 131.23 kg Assessment and Plan (1) Acute respiratory failure due to COVID-19 Status: Acute Category: Medical Code(s): U07.1 - COVID-19; J96.00 - Acute respiratory failure, unspecified whether with hypoxia or hypercapnia (2) Acute renal failure Status: Acute Qualifiers: Acute renal failure type: with other specified pathological lesion Qualified Code(s): N17.8 - Other acute kidney failure Category: Medical Code(s): N17.9 - Acute kidney failure, unspecified (3) Community acquired pneumonia Status: Acute Qualifiers: Laterality: right Lung location: unspecified part of lung Qualified Code(s): J18.9 - Pneumonia, unspecified organism Category: Medical Code(s): J18.9 - Pneumonia, unspecified organism (4) Dyspnea Status: Acute Qualifiers: Dyspnea type: dyspnea on exertion Qualified Code(s): R06.00 - Dyspnea, unspecified Category: Medical Code(s): R06.00 - Dyspnea, unspecified (5) Edema Status: Chronic Qualifiers: Edema type: localized Qualified Code(s): R60.0 - Localized edema Category: Medical Code(s): R60.9 - Edema, unspecified (6) CAD (coronary artery disease) Status: Chronic Qualifiers: Coronary Disease-Associated Artery/Lesion type: [place] artery [place] vs. transplanted heart: [place] heart Associated angina: without angina Qualified Code(s): I25.10 - Atherosclerotic heart disease of [place] coronary artery without angina pectoris Category: Medical Code(s): I25.10 - Atherosclerotic heart disease of [place] coronary artery without angina pectoris (7) Chronic a-fib Status: Chronic Category: Medical Code(s): I48.20 - Chronic atrial fibrillation, unspecified (8) Diabetes Status: Chronic Qualifiers: Diabetes mellitus type: type 2 Diabetes mellitus long-term insulin use: without salvage determiner use Diabetes mellitus complication status: without complication Qualified Code(s): E11.9 - Type 2 diabetes mellitus without complications Category: Medical Code(s): E11.9 - Type 2 diabetes mellitus without complications (9) Ex-smoker Status: Chronic Category: Social Hx Code(s): Z87.891 - Personal history of nicotine dependence (10) Hyperlipidemia Status: Chronic Qualifiers: Hyperlipidemia type: other hyperlipidemia Qualified Code(s): E78.49 - Other hyperlipidemia Category: Medical Code(s): E78.5 - Hyperlipidemia, unspecified (11) Hypertensive disorder Problem details: Status: Chronic Qualifiers: Hypertension type: essential hypertension Qualified Code(s): I10 - Essential (primary) hypertension Category: Medical Code(s): I10 - Essential (primary) hypertension (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
[2020-10-07 12:56] LABS: POC Glucose,Bedside 338 (70-110)
--- NOTE | 2020-10-07 19:29 | PC.NURSE ---
HE HAS BEEN UP TO CHAIR FOR DURATION OF SHIFT, AOX4 ABLE TO MAKE NEEDS KNOWN TO STAFF, HAS TOLERATED DIET WELL, STILL REQUIRES NENTI MASK AT 50% FOR O2 SUPPORT, DENIES N/V/D, HAS BEEN NSR ON TELE T/O SHIFT
[2020-10-07 21:58] LABS: POC Glucose,Bedside 411 (70-110)
[2020-10-07 22:03] LABS: POC Glucose,Bedside 297 (70-110)
[2020-10-08] VITALS (10 sets, daily range): BP systolic 114–148; BP diastolic 64–80; PULSE 53–81; RESP 20; TEMP 36.4–37.1; O2SAT 90–98; BMI 35.3
--- NOTE | 2020-10-08 02:42 | PC.NURSE ---
A&OX4. PT HAS TOLERATED VENTI MASK WELL THROUGHOUT SHIFT. RESPIRATIONS REGULAR AND UNLABORED. EXPIRATORY WHEEZES NOTED THROUGHOUT. NO COUGH NOTED. HAND PEDIATRIC PHYSICAL THERAPY ASSISTANT EQUAL. +2 PULSES NOTED THROUGHOUT. +1 PITTING EDEMA NOTED TO BLE. PT HAS REMAINED IN CHAIR THROUGHOUT SHIFT. ACTIVE BOWEL SOUNDS HEARD IN ALL 4 QUADRANTS. SOFT AND NONTENDER ABDOMEN. PT VOIDS PER BATHROOM INDEPENDENTLY. NO REPORTS OF PAIN, SOB, OR NAUSEA THUS FAR. CALL LIGHT WITHIN REACH. BED IN LOWEST POSITION. VSS. WILL CONTINUE TO MONITOR.
--- NOTE | 2020-10-08 08:43 | HMH.ACPN2 ---
Internal Medicine - PN: Subj *Date: 10/08/20 *Time: 08:43 Interval history: Patient with no new complaints today. Exam Vital signs and Labs for Last 24 Hours: Temp Pulse Resp BP Pulse Ox 98.4 F 81 20 132/78 90 L 10/08/20 08:00 10/08/20 08:00 10/08/20 08:00 10/08/20 08:00 10/08/20 08:00 Laboratory Results - last 24 hr 10/07/20 12:13: POC Glucose 338 H* 10/07/20 17:03: POC Glucose 297 H 10/07/20 21:45: POC Glucose 411 H* Vital Signs - 24 hr 10/07/20 11:45 10/07/20 12:00 10/07/20 15:28 Temperature 98.5 F 97.7 F Pulse Rate 70 Pulse Rate [Left Radial] 86 56 L Pulse Rate [Right] Respiratory Rate 20 20 Blood Pressure [Right Arm] 138/68 130/80 02 Sat by Pulse Oximetry 94 L 96 10/07/20 16:00 10/07/20 18:00 10/07/20 20:00 Temperature 97.6 F Pulse Rate 60 80 Pulse Rate [Left Radial] Pulse Rate [Right] 61 Respiratory Rate 22 Blood Pressure [Right Arm] 155/81 H 02 Sat by Pulse Oximetry 94 L 90 L 10/08/20 00:00 10/08/20 03:47 10/08/20 04:00 Temperature 97.6 F 97.6 F Pulse Rate 55 L 55 L Pulse Rate [Left Radial] Pulse Rate [Right] 56 L 76 Respiratory Rate 20 20 Blood Pressure [Right Arm] 143/70 H 148/80 H 02 Sat by Pulse Oximetry 95 95 10/08/20 05:49 10/08/20 08:00 Temperature 98.4 F Pulse Rate Pulse Rate [Left Radial] 81 Pulse Rate [Right] Respiratory Rate 20 Blood Pressure [Right Arm] 132/78 02 Sat by Pulse Oximetry 94 L 90 L I & O for Last 24 hours: Intake & Output 10/05/20 10/06/20 10/07/20 10/08/20 23:59 23:59 23:59 23:59 Intake Total 1080 / 1080 1320 / 1820 1700 / 1700 720 / 720 Output Total 3350 / 3725 2775 / 2775 1150 / 1650 1050 / 1050 Balance -2270 / -2645 -1455 / -955 550 / 50 -330 / -330 Weight 281 lb 6.016 oz 279 lb 5 oz 289 lb 5.002 oz 290 lb - Constitutional no acute distress - *Routine Respiratory Exam Present: crackles (rare bibasilar). Absent: rhonchi, wheezes - *Routine Cardiovascular Exam Present: RRR - *Routine Extremities Exam Present: edema (trace bilateral legs) Assessment and Plan (1) Acute respiratory failure due to COVID-19 Status: Acute Category: Medical Code(s): U07.1 - COVID-19; J96.00 - Acute respiratory failure, unspecified whether with hypoxia or hypercapnia (2) Acute renal failure Status: Acute Qualifiers: Acute renal failure type: with other specified pathological lesion Qualified Code(s): N17.8 - Other acute kidney failure Category: Medical Code(s): N17.9 - Acute kidney failure, unspecified (3) Community acquired pneumonia Status: Acute Qualifiers: Laterality: right Lung location: unspecified part of lung Qualified Code(s): J18.9 - Pneumonia, unspecified organism Category: Medical Code(s): J18.9 - Pneumonia, unspecified organism (4) Dyspnea Status: Acute Qualifiers: Dyspnea type: dyspnea on exertion Qualified Code(s): R06.00 - Dyspnea, unspecified Category: Medical Code(s): R06.00 - Dyspnea, unspecified (5) Edema Status: Chronic Qualifiers: Edema type: localized Qualified Code(s): R60.0 - Localized edema Category: Medical Code(s): R60.9 - Edema, unspecified (6) CAD (coronary artery disease) Status: Chronic Qualifiers: Coronary Disease-Associated Artery/Lesion type: [place] artery [place] vs. 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
[2020-10-08 11:55] LABS: Chloride 107 mmol/L (98-107); Potassium 5.9 mmoL/L (3.5-5.1); Sodium 133 mmol/L (136-145)
[2020-10-08 11:58] LABS: Alanine Aminotransferase 26 U/L (12-78); Albumin Level 3.2 g/dl (3.5-5.0); Alkaline Phosphatase 78 U/L (38-126); Anion Gap 17.9 mEq/L (5-15); Aspartate Amino Transferase 17 U/L (17-59); Bilirubin,Total 0.4 mg/dl (0.2-1.3); Calcium 9.7 mg/dl (8.4-10.2); Carbon Dioxide 14 mmol/L (22.0-30.0); Creatinine Clearance Estimated 43 mL/min (50-200); Estimated Glomerular Filt Rate 22 ml/min (>60); GFR (African American) 26 ML/MIN (>60); Globulin 3.2 g/dL (1.3-3.2); Glucose 251 mg/dl (74-100); Total Protein,Serum 6.4 g/dl (6.3-8.2)
[2020-10-08 12:00] LABS: Blood Urea Nitrogen 91 mg/dl (9-20)
--- NOTE | 2020-10-08 12:07 | PC.NURSE ---
RESPIRATORY CARE NOTE: 1200- PT REFUSED TO TAKE HIS INHALER AT THIS TIME DUE TO LUNCH ARRIVING. PER BETITO HAGEN- SHE WILL ADMINISTER INHALER AT A LATER TIME WHEN PT IS READY.
[2020-10-08 12:35] LABS: POC Glucose,Bedside 205 (70-110)
[2020-10-08 16:34] LABS: POC Glucose,Bedside 375 (70-110)
--- NOTE | 2020-10-08 17:15 | PC.NURSE ---
Pt insists on sitting in chair entire shift. Remains on venturi mask, has been able to be weaned to 12 L this shift. C/o cough, meds given per MAR w/ voiced relief. Lungs w/ cracles in bilat bases. Hr regular. Abdomen soft, large, round w/ active BS. Has ate all of his trays this shift. Ptting edema noted to BLE. Lasix given per MD orders, pt has had 2 L of urine out this shift. No BM this shift. No needs voiced. VSS
[2020-10-08 22:09] LABS: POC Glucose,Bedside 325 (70-110)
[2020-10-09] VITALS (11 sets, daily range): BP systolic 139–160; BP diastolic 68–90; PULSE 50–82; RESP 17–24; TEMP 36.4–36.7; O2SAT 89–96; BMI 34.7
--- NOTE | 2020-10-09 04:16 | PC.NURSE ---
Pt is A&Ox4 this shift. Expiratory wheezing noted t/o all lung garcia. Dry, nonproductive cough noted. Pt continues on venturi mask @ 40%/12L. Pt using IS hourly while awake. IS @ best 1250. Active bowel sounds in al 4 quads. No BM noted this shift. Pt refuses to get in bed or to prop up feet despite having +2 pitting edema at BLE. Pt educated on the importance of elevating his lower extremities, but continues to refuse. No other acute changes or complaints at this time.
[2020-10-09 06:38] LABS: POC Glucose,Bedside 227 (70-110)
[2020-10-09 07:02] LABS: Alanine Aminotransferase 25 U/L (12-78); Albumin Level 3.4 g/dl (3.5-5.0); Alkaline Phosphatase 82 U/L (38-126); Anion Gap 17.7 mEq/L (5-15); Aspartate Amino Transferase 19 U/L (17-59); Bilirubin,Total 0.3 mg/dl (0.2-1.3); Calcium 10.1 mg/dl (8.4-10.2); Carbon Dioxide 15 mmol/L (22.0-30.0); Chloride 106 mmol/L (98-107); Estimated Glomerular Filt Rate 21 ml/min (>60); GFR (African American) 25 ML/MIN (>60); Globulin 3.4 g/dL (1.3-3.2); Glucose 233 mg/dl (74-100); Potassium 5.7 mmoL/L (3.5-5.1); Sodium 133 mmol/L (136-145); Total Protein,Serum 6.8 g/dl (6.3-8.2)
--- NOTE | 2020-10-09 08:11 | HMH.ACPN2 ---
<Anahi Ortega - Last Filed: 10/09/20 08:11> Internal Medicine - PN: Subj *Date: 10/09/20 *Time: 08:11 Interval history: Patient states he feels the same today. He may be slightly more short of breath since his oxygen has been decreased. He still on Ventimask. He denies any pain other than in his back. He states he did not rest well last night and is still coughing. Exam Vital signs and Labs for Last 24 Hours: Temp Pulse Resp BP Pulse Ox 97.6 F 56 L 24 142/74 H 94 L 10/09/20 07:47 10/09/20 07:47 10/09/20 07:47 10/09/20 07:47 10/09/20 07:47 Laboratory Results - last 24 hr 10/08/20 05:30: POC Glucose 205 H 10/08/20 11:20: Sodium 133 L, Potassium 5.9 H, Chloride 107, Carbon Dioxide 14 L, Anion Gap 17.9 H, BUN 91 H, Creatinine 2.90 H, Estimated Creat Clear 43, Estimated GFR 22 L, Est GFR ( Amer) 26 L, Glucose 251 H, Calcium 9.7, Total Bilirubin 0.4, AST 17, ALT 26, Alkaline Phosphatase 78, Total Protein 6.4, Albumin 3.2 L, Globulin 3.2, Albumin/Globulin Ratio 1.0 L 10/08/20 16:27: POC Glucose 375 H* 10/08/20 21:53: POC Glucose 325 H* 10/09/20 06:27: POC Glucose 227 H I & O for Last 24 hours: Intake & Output 10/06/20 10/07/20 10/08/20 10/09/20 11:59 11:59 11:59 11:59 Intake Total 1080 / 1080 1820 / 1820 1560 / 1560 1680 / 1680 Output Total 4325 / 4325 1950 / 1950 1750 / 1750 2500 / 2500 Balance -3245 / -3245 -130 / -130 -190 / -190 -820 / -820 Weight 279 lb 5 oz 289 lb 5.002 oz 290 lb 284 lb 14.136 oz - Constitutional no acute distress - *Routine Respiratory Exam Present: decreased breath sounds, CTA bilaterally - *Routine Cardiovascular Exam Present: RRR - *Routine Abdominal Exam Present: soft, normoactive bowel sounds. Absent: tenderness - *Routine Extremities Exam Present: edema (2+ pretibial edema bilaterally). Absent: cyanosis, clubbing - *Routine Skin Exam Present: warm. Absent: rash - *Routine Neurological Exam Present: alert, oriented X3 Assessment and Plan (1) Acute respiratory failure due to COVID-19 Status: Acute Category: Medical Code(s): U07.1 - COVID-19; J96.00 - Acute respiratory failure, unspecified whether with hypoxia or hypercapnia (2) Acute renal failure Status: Acute Qualifiers: Acute renal failure type: with other specified pathological lesion Qualified Code(s): N17.8 - Other acute kidney failure Category: Medical Code(s): N17.9 - Acute kidney failure, unspecified (3) Community acquired pneumonia Status: Acute Qualifiers: Laterality: right Lung location: unspecified part of lung Qualified Code(s): J18.9 - Pneumonia, unspecified organism Category: Medical Code(s): J18.9 - Pneumonia, unspecified organism (4) Dyspnea Status: Acute Qualifiers: Dyspnea type: dyspnea on exertion Qualified Code(s): R06.00 - Dyspnea, unspecified Category: Medical Code(s): R06.00 - Dyspnea, unspecified (5) Edema Status: Chronic Qualifiers: Edema type: localized Qualified Code(s): R60.0 - Localized edema Category: Medical Code(s): R60.9 - Edema, unspecified (6) CAD (coronary artery disease) Status: Chronic Qualifiers: Coronary Disease-Associated Artery/Lesion type: [place] artery [place] vs. 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
[2020-10-09 08:45] LABS: Creatinine Clearance Estimated 41 mL/min (50-200)
[2020-10-09 08:46] LABS: Blood Urea Nitrogen 97 mg/dl (9-20)
[2020-10-09 11:28] LABS: POC Glucose,Bedside 358 (70-110)
--- NOTE | 2020-10-09 11:44 | PC.NURSE ---
Pt placed on 6 L O2 per nasal cannula, SPO2 currently 94%. Cont pulse ox in place for monitoring
--- NOTE | 2020-10-09 12:19 | SW/DCPLANNER ---
Addendum entered by Sammie Porras 10/10/20 08:07: RECEIVED A MESSAGE FROM DR STRANGE VIA TELEPHONE....WILL FOLLOW UP WITH HIM THIS MORNING TO SEE IF THIS PATIENT IS GOING TO NEED ANYTHING PRIOR TO HIM DISCHARGING. HE IS NOW DOWN TO 4 PLM PER NASAL CANNULA.. APPEARS TO BE SLOWLY IMPROVING.. WILL FOLLOW AND ASSIST INDICATED BY MD.... Original Note: ATTEMPTED TO REACH OUT TO MD REGARDING DISCHARGE PLANS ON THIS PATIENT..HAVE NOT RECEIVED REPLY AT THIS TIME...
[2020-10-09 16:24] LABS: POC Glucose,Bedside 333 (70-110)
--- NOTE | 2020-10-09 16:39 | PC.NURSE ---
Pt in chair entire shift, pt has been asked if he would like to get up or be repositioned, he continues to decline/refuse assistance. Pt aware that sitting in constant position may result in breakdown of skin, pt verbalize understanding. Has been weaned to 5 L O2 per nasal cannula, SPO2 currently 91%. Tolerating transition from venturi mask to nasal cannula well. HR yordy, regular. Swelling noted to L hand, extremity propped w/ pillow. Edema also noted to BLE, educated pt on importance of elevating legs, pt adament about leaving legs dependent. No BM this shift. Voiding per urinal w/o difficulty. No c/o voiced this shift. Call whitaker w/in each.
[2020-10-09 21:14] LABS: Glucose,Random 515 mg/dL (74-100)
[2020-10-09 22:17] LABS: POC Glucose,Bedside 502 (70-110)
[2020-10-10] VITALS: BP 161/79; PULSE 62; PULSE 70; RESP 20; TEMP 36.6; O2SAT 91
[2020-10-10 04:00] VITALS: BP 149/81; PULSE 50; PULSE 54; RESP 19; TEMP 36.5; O2SAT 94
--- NOTE | 2020-10-10 05:09 | PC.NURSE ---
Pt is A&Ox4. Lung sounds show coarse crackles at bilat bases. Dry, hacking cough noted. +2 non pitting edema noted to left hand. BLE +1- +2 pitting edema noted. Pt continues to ambulate independently to and from restroom. No other acute changes or complaints at this time.
[2020-10-10 06:05] VITALS: O2SAT 97
[2020-10-10 06:09] VITALS: BMI 35.1
[2020-10-10 06:19] LABS: POC Glucose,Bedside 181 (70-110)
--- NOTE | 2020-10-10 06:39 | PC.NURSE ---
Per RT, pt is now on 4L NC and tolerating well.
[2020-10-10 07:39] LABS: Alanine Aminotransferase 24 U/L (12-78); Albumin Level 3.2 g/dl (3.5-5.0); Alkaline Phosphatase 81 U/L (38-126); Anion Gap 16.9 mEq/L (5-15); Aspartate Amino Transferase 17 U/L (17-59); Bilirubin,Total 0.3 mg/dl (0.2-1.3); Calcium 9.8 mg/dl (8.4-10.2); Carbon Dioxide 16 mmol/L (22.0-30.0); Chloride 104 mmol/L (98-107); Creatinine Clearance Estimated 43 mL/min (50-200); Estimated Glomerular Filt Rate 22 ml/min (>60); GFR (African American) 26 ML/MIN (>60); Globulin 3.3 g/dL (1.3-3.2); Glucose 152 mg/dl (74-100); Potassium 4.9 mmoL/L (3.5-5.1); Sodium 132 mmol/L (136-145); Total Protein,Serum 6.5 g/dl (6.3-8.2)
[2020-10-10 07:58] LABS: Blood Urea Nitrogen 96 mg/dl (9-20)
[2020-10-10 08:00] VITALS: BP 155/83; PULSE 58; RESP 21; TEMP 36.6; O2SAT 90; O2SAT 94
--- NOTE | 2020-10-10 08:31 | HMH.ACPN2 ---
<Anahi Ortega - Last Filed: 10/10/20 08:31> Internal Medicine - PN: Subj *Date: 10/10/20 *Time: 08:31 Interval history: Patient has been weaned to nasal cannula today. He states he still has low back pain. His shortness of breath is a little bit better. He rested off and on throughout the night and did eat his breakfast. He wants to go home. Exam Vital signs and Labs for Last 24 Hours: Temp Pulse Resp BP Pulse Ox 97.9 F 58 L 21 155/83 H 94 L 10/10/20 08:00 10/10/20 08:00 10/10/20 08:00 10/10/20 08:00 10/10/20 08:00 Laboratory Results - last 24 hr 10/09/20 06:10: Sodium 133 L, Potassium 5.7 H, Chloride 106, Carbon Dioxide 15 L, Anion Gap 17.7 H, BUN 97 H, Creatinine 3.00 H, Estimated Creat Clear 41, Estimated GFR 21 L, Est GFR ( Amer) 25 L, Glucose 233 H, Calcium 10.1, Total Bilirubin 0.3, AST 19, ALT 25, Alkaline Phosphatase 82, Total Protein 6.8, Albumin 3.4 L, Globulin 3.4 H, Albumin/Globulin Ratio 1.0 L 10/09/20 11:14: POC Glucose 358 H* 10/09/20 16:05: POC Glucose 333 H* 10/09/20 20:27: POC Glucose 502 H* 10/09/20 20:40: Random Glucose 515 H* 10/10/20 06:07: POC Glucose 181 H 10/10/20 06:31: Sodium 132 L, Potassium 4.9, Chloride 104, Carbon Dioxide 16 L, Anion Gap 16.9 H, BUN 96 H, Creatinine 2.90 H, Estimated Creat Clear 43, Estimated GFR 22 L, Est GFR ( Amer) 26 L, Glucose 152 H, Calcium 9.8, Total Bilirubin 0.3, AST 17, ALT 24, Alkaline Phosphatase 81, Total Protein 6.5, Albumin 3.2 L, Globulin 3.3 H, Albumin/Globulin Ratio 1.0 L I & O for Last 24 hours: Intake & Output 01/25/21 01/26/21 01/27/21 01/28/21 11:59 11:59 11:59 11:59 Intake Total 1820 / 1820 1560 / 1560 2160 / 2160 1430 / 1430 Output Total 1950 / 1950 1750 / 1750 2500 / 2500 2850 / 2850 Balance -130 / -130 -190 / -190 -340 / -340 -1420 / -1420 Weight 289 lb 5.002 oz 290 lb 284 lb 14.136 oz 288 lb 5.834 oz - Constitutional no acute distress - *Routine Respiratory Exam Present: wheezes - *Routine Cardiovascular Exam Present: RRR - *Routine Abdominal Exam Present: soft, normoactive bowel sounds. Absent: tenderness - *Routine Extremities Exam Present: edema. Absent: cyanosis, clubbing - *Routine Skin Exam Present: warm. Absent: rash - *Routine Neurological Exam Present: alert, oriented X3 Assessment and Plan (1) Acute respiratory failure due to COVID-19 Status: Acute Category: Medical Code(s): U07.1 - COVID-19; J96.00 - Acute respiratory failure, unspecified whether with hypoxia or hypercapnia (2) Acute renal failure Status: Acute Qualifiers: Acute renal failure type: with other specified pathological lesion Qualified Code(s): N17.8 - Other acute kidney failure Category: Medical Code(s): N17.9 - Acute kidney failure, unspecified (3) Community acquired pneumonia Status: Acute Qualifiers: Laterality: right Lung location: unspecified part of lung Qualified Code(s): J18.9 - Pneumonia, unspecified organism Category: Medical Code(s): J18.9 - Pneumonia, unspecified organism (4) Dyspnea Status: Acute Qualifiers: Dyspnea type: dyspnea on exertion Qualified Code(s): R06.00 - Dyspnea, unspecified Category: Medical Code(s): R06.00 - Dyspnea, unspecified (5) Edema Status: Chronic Qualifiers: Edema type: localized Qualified Code(s): R60.0 - Localized edema Category: Medical Code(s): R60.9 - Edema, unspecified (6) CAD (coronary artery disease) Status: Chronic Qualifiers: Coronary Disease-Associated Artery/Lesion type: [place] artery [place] vs. transplanted heart: [place] heart Associated angina: without angina Qualified Code(s): I25.10 - Atherosclerotic heart disease of [place] coronary artery without angina pectoris Category: Medical Code(s): I25.10 - Atherosclerotic heart disease of [place] coronary artery without angina pectoris (7) Chronic a-fib Status: Chronic Category: Medical Code(s): I48.20 - Chronic
--- NOTE | 2020-10-10 09:31 | SW/DCPLANNER ---
SET UP HOME 02 TODAY FOR A PATIENT THAT IS DISCHARGING HOME.. PATIENT WISHES TO USE [facility] AND A PORTABLE WILL BE DELIVERED TO HIS ROOM PRIOR TO HIM LEAVING..
[2020-10-10 11:48] VITALS: BP 145/80; PULSE 60; RESP 20; TEMP 36.6; O2SAT 95
--- NOTE | 2020-10-10 12:46 | HMH.DCSUM ---
General - General Admission date:: 09/30/20 Discharge date: 10/10/20 HPI HPI: Mr. Saldana is a 69-year-old male with a history of hypertension, diabetes mellitus, anemia, sleep apnea, chronic kidney disease stage IV followed by nephrology at , and Covid pneumonia diagnosed 09/28/2020 who presented to [facility] emergency room with progressive shortness of breath. He was originally sent for monoclonal antibody infusion. He had already tested positive for the coronavirus about 4 days prior to this. On arrival patient was found to be very short of breath and hypoxic with low O2 sats. He describes some nonproductive coughs, fevers and chills. He states he has not felt well for several days. With evaluation in the emergency room Chest x-ray revealed worsening bilateral pneumonia. He had had a previous chest x-ray which showed the Covid pneumonia. He had been on Promethazine DM, Zithromax, dexamethasone, zinc and albuterol inhalers without improvement. White blood cell count was 17,200 with a hemoglobin of 10.7 and hematocrit of 31.5. Neutrophils were 92.1%. ABG showed a pH of 7.4 PCO2 of 21.8 PO2 of 55 and a bicarb of 13.3. Blood chemistry showed sodium of 139 potassium of 3.9. BUN was 85 and creatinine 3.1. All Troponin I's have been normal at 0.01 x 3. Liver function tests were not elevated. Patient was thus admitted and placed on routine Covid protocol to include remdesivir, cefdinir, Zithromax, Lovenox and to include normal saline at 100 mL/h. This a.m. patient states he does feel somewhat better. He has been sitting up in a chair and can breathe better this way. He denies chest pain. He was able to eat breakfast. He has been on a Ventimask at 40% with adequate O2 sats. Laboratory data this morning show slight improvement in renal function with a BUN of 78 and creatinine of 2.8. Elevated blood sugars have been managed with sliding scale insulin. CBC shows a slight improvement with white blood cell count at 16,100; hemoglobin and hematocrit are stable at 10.9/32. Hospital Course Hospital Course: Patient was admitted and started on Covid protocol along with Zithromax and cefdinir. He was also started on duo nebs. His blood pressure medication was restarted and an EKG was ordered for baseline. The patient was placed on a security monitor as he had a history of chronic A. fib and SVT. Patient continued to be short of breath and had a cough. He remained on a Ventimask and was unable to lie down due to his cough increasing. He was able to ambulate around his room without difficulty. His EKG showed sinus rhythm with frequent premature beats. A repeat chest x-ray was ordered. It showed slightly worsening bilateral pneumonia. He did have some runs of V. tach, therefore cardiology was consulted. His renal function was initially elevated but did improve. Cardiology saw the patient and ordered an echo. They increased his Coreg dose and recommended restarting his Xarelto 15 mg daily and stopping his Lovenox due to his history of A. fib. The echo showed an EF of 55%. Cardiology further increased the patient's Coreg dose and reduced his Norvasc dose. He had no more episodes of V. tach since medication changes. He did have some bradycardia and his heart rate was monitored and his Coreg dose was decreased. A repeat chest x-ray was ordered showing no change in his diffuse bilateral pneumonia. Cough medication was added and he was given some Lasix. His oxygen was decreased. He was able to be weaned to nasal cannula. He began feeling a little bit better. He was stable to be discharged home with continuous oxygen via nasal cannula at 4 L/min and will follow-up via telehealth with Dr. Sun in a week. Objective Vital signs: Temp Pulse Resp BP Pulse Ox 97.8 F 60 20 145/80 H 95 10/10/20 11:48 10/10/20 11:48 10/10/20 11:48 10/10/20 11:48 10/10/20 11:48 Narrative: - Constitutional mild dist
[2020-10-10 12:57] LABS: POC Glucose,Bedside 239 (70-110)
== END 2020-10-10 12:31 | disposition home or self-care (01) | DRG 177 ==
LOC: ER 17:40 → 2ND 18:33
PROVIDERS: Physician Assistant; Admitting Provider Family Medicine; Emergency Provider Emergency Medicine; PCP Physician Assistant; Visit Provider Family Medicine
DX: U07.1 COVID-19 (principal); J12.82 Pneumonia due to coronavirus disease 2019; J96.00 Acute respiratory failure, unspecified whether with hypoxia or hypercapnia; N17.9 Acute kidney failure, unspecified; I48.20 Chronic atrial fibrillation, unspecified; N18.4 Chronic kidney disease, stage 4 (severe); Z87.891 Personal history of nicotine dependence; Z79.01 Long term (current) use of anticoagulants; Z79.4 Long term (current) use of insulin; Z79.51 Long term (current) use of inhaled steroids; I25.10 Atherosclerotic heart disease of native coronary artery without angina pectoris; G20 Parkinson's disease; I12.9 Hypertensive chronic kidney disease with stage 1 through stage 4 chronic kidney disease, or unspecified chronic kidney disease; E11.22 Type 2 diabetes mellitus with diabetic chronic kidney disease
CPT/HCPCS: 36415; 71045; 80053; 82803; 82947; 82962; 83605; 83735; 84484; 85007; 85025; 87040; 87205; 93005; 93306; 94640; 94761; 96365; 96375; 99284; J0456; U0004

== ENCOUNTER 2020-10-17 08:27 | Inpatient (IN) | payer MEDICARE, SELFPAY ==
[2020-10-17] VITALS (14 sets, daily range): BP systolic 107–174; BP diastolic 62–104; PULSE 60–87; RESP 19–31; TEMP 36.2–37.2; O2SAT 77–95; BMI 35.4; BMI 34.0
--- NOTE | 2020-10-17 08:31 | XR_ITS ---
PROCEDURE: XR CHEST PORTABLE CLINICAL HISTORY: short of breath COMPARISON: CR XR CHEST PORTABLE from 09/30/2020 CR XR CHEST PORTABLE from 10/02/2020 CR XR CHEST PORTABLE from 10/06/2020 FINDINGS: Cardiomegaly without failure. Consolidation is present in the right mid and lower lung zone and in the left mid and lower lung zone as well. There appears to be interval development of a left-sided pneumothorax which is small to medium-sized based on the AP exam only. There is a apical component and lateral component. There is increasing consolidation in the left midlung. No acute bony abnormalities. IMPRESSION: Bilateral pneumonia with interval development of left-sided pneumothorax with increasing consolidation in the left midlung. [place]oma in the ICU is notified of the above findings by telephone 10/17/2020 at 11:25 a.m. Dictated by: Gabriel Seth MD 10/17/2020 11:25 Gabriel Seth MD in [facility] 10/17/2020 11:25
--- NOTE | 2020-10-17 08:32 | ECG_ITS ---
APPROVED REPORT Exam: Resting ECG HR:83 bpm ECG Measurements Heart Rate 83 AXES QRSd 100 QRS -3 QT 386 T 116 QTc 453 Conclusion Atrial fibrillation with premature ventricular or aberrantly conducted complexes T wave abnormality, consider lateral ischemia or digitalis effect Abnormal ECG Electronically signed by : Benjamin Allen, 10/17/2020 21:15:20
--- NOTE | 2020-10-17 08:33 | HMH.EDGENADL ---
ED Disposition Clinical Impression: Chronic a-fib Respiratory failure with hypoxia Qualifiers: Chronicity: acute Qualified Code(s): J96.01 - Acute respiratory failure with hypoxia Pneumonia Qualifiers: Pneumonia type: due to unspecified organism Laterality: bilateral Lung location: lower lobe of lung Qualified Code(s): J18.9 - Pneumonia, unspecified organism Fluid overload Qualifiers: Hypervolemia type: other Qualified Code(s): E87.79 - Other fluid overload Edema Qualifiers: Edema type: generalized Qualified Code(s): R60.1 - Generalized edema Disposition: Admitted As Inpatient Condition on Discharge: Fair - Critical Care Critical Care Time: Yes Attestation: On , the high probability of a clinically significant, sudden or life threatening deterioration of the following system(s) required my full and direct attention, intervention and personal management. The time I documented below is in addition to time spent performing reported procedures but includes the following listed in this critical care notation. Vital system(s) involved:: Respiratory Failure, Renal Failure My critical care processes included: Assessment & monitoring of V/S, Initial and Re-exams, Data Review/Interpretation, Coordinating Care, Medication Orders and management, Documentation Medical Decision Making - Medical Records Medical records reviewed: Yes: I reviewed the patient's medical records. - [place]ander Inquiry Pt receiving controlled substance: No Vital Signs: 10/17/20 08:27 10/17/20 09:10 10/17/20 09:42 Temperature 98.9 F Temperature Source Oral Pulse Rate Pulse Rate [Right] 79 80 80 Respiratory Rate 31 H Blood Pressure Blood Pressure [Right Arm] 139/81 161/84 H 172/104 H Blood Pressure Mean [Right Arm] 100 109 126 Blood Pressure Source Blood Pressure Source [Right Arm] Automatic Cuff Automatic Cuff Automatic Cuff Blood Pressure Position Blood Pressure Position [Right Arm] Sitting Sitting Sitting 02 Sat by Pulse Oximetry 77 L 87 L 89 L Oxygen Delivery Method Room Air Non-Rebreather Non-Rebreather Oxygen Flow Rate (LPM) 15 15 10/17/20 10:10 10/17/20 10:46 Temperature 98.2 F Temperature Source Oral Pulse Rate 74 Pulse Rate [Right] 75 Respiratory Rate 30 H Blood Pressure 172/80 H Blood Pressure [Right Arm] 174/93 H Blood Pressure Mean [Right Arm] 120 Blood Pressure Source Automatic Cuff Blood Pressure Source [Right Arm] Automatic Cuff Blood Pressure Position Sitting Blood Pressure Position [Right Arm] Sitting 02 Sat by Pulse Oximetry 88 L Oxygen Delivery Method Non-Rebreather Room Air Oxygen Flow Rate (LPM) 15 - Lab Data Lab Results 10/17/20 08:22: Urine Color Yellow, Urine Appearance Clear, Urine pH 5.5, Ur Specific [place] 1.025, Urine Protein 1+, Urine Glucose (UA) Negative, Urine Ketones Negative, Urine Blood Negative, Urine Nitrate Negative, Urine Bilirubin Negative, Urine Urobilinogen 0.2, Ur Leukocyte Esterase Negative, Urine WBC Occasional, Ur Squamous Epith Cells Occasional 10/17/20 08:22: WBC 18.8 H, RBC 3.78 L, Hgb 10.7 L, Hct 34.5 L, MCV 91.2, MCH 28.2, MCHC 31.0 L, RDW 14.7, Plt Count 273, MPV 9.9, Neut % (Auto) 89.4 H, Lymph % (Auto) 3.4 L, [place] % (Auto) 7.0, Eos % (Auto) 0.2, Baso % (Auto) 0.1, Neut # (Auto) 16.8 H, Lymph # (Auto) 0.6 L, [place] # (Auto) 1.3 H, Eos # (Auto) 0.0, Baso # (Auto) 0.0, Total Counted 100, Neutrophils % (Manual) 89 H, Lymphocytes % (Manual) 3 L, Monocytes % (Manual) 8, Platelet Estimate Normal, RBC Morphology Normal 10/17/20 08:22: Sodium 133 L, Potassium 4.4, Chloride 103, Carbon Dioxide 14 L, Anion Gap 20.4 H, BUN 101 H*, Creatinine 3.80 H, Estimated Creat Clear 33, Estimated GFR 16 L*, Est GFR ( Amer) 19 L*, Glucose 253 H, Calcium 11.8 H, Total Bilirubin 0.7, AST 26, ALT 27, Alkaline Phosphatase 116, Total Creatine Kinase 175 H, Troponin I 0.04 H, C-Reactive Protein 380.2 H, Total Protein 7.4, Albumin 3.5, Globulin 3.9 H, Albumin/Globulin Ratio 0.9 L, L
[2020-10-17 08:35] LABS: ABG Base Excess -15.4 mmol/L (-2.4-2.3); ABG HCO3 10.8 mmhg (22.0-26.0); ABG Oxygen Saturation 88 % (90-100); ABG PCO2 21.7 mmhg (35.0-45.0); ABG PH 7.31 mmol/L (7.35-7.45); ABG TCO2 11.4 mmhg (23-27)
[2020-10-17 08:38] LABS: Allen's Test Acceptable; Source Right Radial
[2020-10-17 08:42] LABS: Microscopic, Urine URINE MICROSCOPIC (MICROSCOPIC)
[2020-10-17 08:46] LABS: Appearance,Urine CLEAR (Clear); Bilirubin,Urine Negative (Negative); Blood, Urine Negative (Negative); Color,Urine YELLOW (Yellow); Glucose,Urine (UA) Negative (Negative); Ketones,Urine Negative (Negative); Leukocyte Esterase,Urine Negative (Negative); Nitrate,Urine Negative (Negative); PH,Urine 5.5 (5.0-8.5); Protein,Urine 1+ (Negative); Specific Gravity, Urine 1.025 (1.005-1.030); Urobilinogen,Urine 0.2 EU/dl (0.2)
[2020-10-17 08:52] LABS: Chloride 103 mmol/L (98-107); Potassium 4.4 mmoL/L (3.5-5.1); Sodium 133 mmol/L (136-145)
[2020-10-17 08:53] LABS: Squamous Epithelial Cell,Urine Occasional #/hpf (0-5); WBC,Urine Occasional #/hpf (0-3)
[2020-10-17 08:55] LABS: Alanine Aminotransferase 27 U/L (12-78); Albumin Level 3.5 g/dl (3.5-5.0); Albumin/Globulin Ratio 0.9 (1.1-1.8); Alkaline Phosphatase 116 U/L (38-126); Anion Gap 20.4 mEq/L (5-15); Aspartate Amino Transferase 26 U/L (17-59); Bilirubin,Total 0.7 mg/dl (0.2-1.3); Calcium 11.8 mg/dl (8.4-10.2); Carbon Dioxide 14 mmol/L (22.0-30.0); Creatine Kinase 175 U/L (55-170); Globulin 3.9 g/dL (1.3-3.2); Glucose 253 mg/dl (74-100); Lipase 100 U/L (23-300); Total Protein,Serum 7.4 g/dl (6.3-8.2)
[2020-10-17 08:57] LABS: Lactic Acid 2.3 mmol/L (0.7-2.1)
[2020-10-17 08:58] LABS: Blood Urea Nitrogen 101 mg/dl (9-20)
[2020-10-17 09:01] LABS: Creatinine Clearance Estimated 33 mL/min (50-200); Estimated Glomerular Filt Rate 16 ml/min (>60); GFR (African American) 19 ML/MIN (>60)
[2020-10-17 09:02] LABS: Basophils % 0.1 % (0.1-2.0); Eosinophils % 0.2 % (0.1-12.0); Hematocrit 34.5 % (42.0-52.0); Hemoglobin 10.7 g/dL (14.1-18.0); Lymphocytes # 0.6 K/mm3 (0.7-4.5); Lymphocytes % 3.4 % (10-50); Mean Corpuscular Hemoglobin 28.2 pg (27.0-31.2); Mean Corpuscular Volume 91.2 fl (80-94); Mean Platelet Volume 9.9 fl (7.4-10.4); Monocytes # 1.3 K/mm3 (0.1-1.0); Neutrophils # 16.8 K/mm3 (1.8-7.8); Neutrophils % 89.4 % (37.0-80.0); Platelet Count 273 K/mm3 (142-424); Red Blood Count 3.78 M/mm3 (4.60-6.20); Red Cell Distribution Width 14.7 % (11.5-17.5); White Blood Count 18.8 K/mm3 (4.8-10.8)
[2020-10-17 09:03] LABS: NT Pro Brain Natriuretic Pep. 2040 pg/mL (0-125)
[2020-10-17 09:07] LABS: Troponin I 0.04 ng/ml (0.00-0.034)
--- NOTE | 2020-10-17 09:09 | PC.NURSE ---
lab called with critical creat 3.80 Dr Calabrese aware
[2020-10-17 09:22] LABS: MANUAL DIFFERENTIAL MANUAL DIFFERENTIAL (MANUAL DIFF)
[2020-10-17 09:30] LABS: Adenovirus,PCR Not Detected (NotDetected); Bordetella Pertussis Not Detected (NotDetected); Chlamydophila Pneumoniae, PCR Not Detected (NotDetected); Coronavirus 229E Not Detected (NotDetected); Coronavirus NL63 Not Detected (NotDetected); Coronavirus OC43 Not Detected (NotDetected); Coronovirus HKU1,PCR Not Detected (NotDetected); Human Metapneumovirus Not Detected (NotDetected); Influenza A, PCR Not Detected (NotDetected); Influenza AH1, 2009 Not Detected (NotDetected); Influenza AH1, PCR Not Detected (NotDetected); Influenza AH3,PCR Not Detected (NotDetected); Influenza B, PCR Not Detected (NotDetected); Mycoplasma Pneumoniae, PCR Not Detected (NotDetected); Parainfluenza 1, PCR Not Detected (NotDetected); Parainfluenza 2, PCR Not Detected (NotDetected); Parainfluenza 3, PCR Not Detected (NotDetected); Parainfluenza 4, PCR Not Detected (NotDetected); Respiratory Syncytial Virus Not Detected (NotDetected); Rhinovirus/Enterovirus Not Detected (NotDetected)
[2020-10-17 09:38] LABS: Lymphocytes % 3 % (10-50); Monocytes % 8 % (2-9); Neutrophils % 89 % (42-76); Platelet Estimate Normal; RBC Morphology Normal; Total Cells Counted 100
--- NOTE | 2020-10-17 09:52 | PC.NURSE ---
DR JEFFERS SPEAKING WITH DR STRANGE
--- NOTE | 2020-10-17 09:54 | PC.NURSE ---
DR STRANGE AGREED TO ADMIT PT , CARE MANAGEMENT CALLED
[2020-10-17 10:05] LABS: C-Reactive Protein 380.2 mg/L (0-4)
--- NOTE | 2020-10-17 10:18 | HMH.HP ---
*Admission Date: 10/17/20 <Anahi Ortega - 10/17/20 10:24> *Chief complaint: shortness of breath <Anahi Ortega - 10/17/20 10:24> *History of present illness: 69-year-old male presenting to the emergency department with shortness of breath, fatigue. He has felt generally unwell for greater than 2 weeks. Was diagnosed with COVID-19 16 days ago. Spent 10 days in the hospital. Since discharge he has been essentially living in his recliner. He feels tired all of the time. Has been urinating in a cup by the bedside. Not eating or drinking much. Has not made much urine in the last few days. Incontinent of stool recently. No numbness, weakness, tingling in 1 extremity or another. He uses CPAP at night. [place] short of breath yesterday and this morning. Called 911 when he woke up. Feels like he is breathing fast, unable to get enough air. He has had swelling of his legs. Feels his abdomen is swollen. Continues to cough frequently. Nonproductive. No particular chest pain or abdominal pain. Patient hypoxic on arrival with oxygen saturation of 77% on room air. Placed on nasal cannula at 3 L. Hypertensive at 150 systolic. Other vital signs within normal limits. Differential diagnoses include pneumonia, heart failure, pleural effusion, renal failure, electrolyte abnormality, urinary tract infection, sepsis. Will obtain CBC, CMP, chest x-ray, EKG, troponin profile, BNP, urinalysis. Initial laboratory results show acute on chronic renal failure. Creatinine 3.8 and BUN 100. Patient's baseline creatinine is between 2.5 and 3.0. BNP elevated at greater than 2000. Given patient's lower extremity swelling, respiratory difficulty, will give 80 mg IV Lasix and start on BiPAP. He has had 300 cc of urine out of his Archibald catheter. Is making urine. Electrolytes are grossly within normal limits. X-ray concerning for persistent Covid pneumonia. Consolidation in the left lower is concerning for an effusion. After initiation of BiPAP, patient's oxygen saturation had increased to the low 90s. Vital signs stable. Will admit for further management. (the above as per the ER physician) The patient states he felt better right after discharge, but the past few days he has been getting worse. He had some pain in the left side of his chest, left flank, and left upper abdomen, but he began having some production of sputum and this seemed to ease the pain in these areas. He has been so weak at home he has been staying only in his recliner. He states his oxygen was in the 70s even on 3 L at home. <Anahi Ortega 10/17/20 12:38> [facility] History I have reviewed the patient's past medical history: Yes <Anahi Ortega 10/17/20 10:24> Medical History: Reports:: Arrhythmia (Atrial fibrillation), Atrial Fibrillation, BPH, Coronary Artery Disease, Diabetes Mellitus Type 2, Hyperlipidemia, Hypertension, Kidney Stones, Renal Insufficiency Denies:: Cancer, Diabetes Mellitus Type 1, Internal Pacemaker, Lung Disease, MRSA, Seizures <Anahi Ortega 10/17/20 10:24> *Have you ever received a pneumonia vaccine?: Yes <Anahi Ortega 10/17/20 10:24> *Have you received a flu vaccine this season?: Yes <Anahi Ortega 10/17/20 10:24> Other Medical History: Reports: Anemia, Arthritis, Cataracts, Other (Covid pneumonia) <Anahi Ortega 10/17/20 10:24> Laterality Cases: Bilateral: Other <Anahi Ortega 10/17/20 10:24> Other Surgeries: Yes: Cardiac Catheterization, Colonoscopy, Other (Cystoscopy, TURP). No: Pacemaker <Anahi Ortega 10/17/20 10:24> Amputation: No <Anahi Ortega 10/17/20 10:24> Fractures: No <Anahi Ortega 10/17/20 10:24> - *Social History Smoking Status: Former smoker <Anahi Ortega 10/17/20 10:24> Tobacco Type: cigarettes <Anahi Ortega 10/17/20 10:24> #Yrs smoked (if former smoker): 25 <Anahi Ortega 10/17/20 10:24> Alcohol Intake: former <Anahi Ortega 10/17/20 10:24> Alcohol Intake Frequency:: 3 or more drinks per day <Rosetta Ortega
--- NOTE | 2020-10-17 10:30 | PC.NURSE ---
arrived to [facility] unit room 266. NRB mask switched to Vapotherm 40L/100% per RT (Paloma). Pt is A&O. Dragan baig present.
[2020-10-17 11:18] LABS: POC Glucose,Bedside 262 (70-110)
--- NOTE | 2020-10-17 11:25 | PC.NURSE ---
Dr. Sun notified of left small to medium size pneumothorax
[2020-10-17 11:32] LABS: Coronavirus 19, PCR Detected (NotDetected)
--- NOTE | 2020-10-17 11:32 | PC.NURSE ---
Dr. Sun notified of positive COVID nasal swab
[2020-10-17 12:41] LABS: Reflex Lactic Add Lactic Reflex
--- NOTE | 2020-10-17 13:40 | PC.NURSE ---
pt is A&O and signed consent for a chest tube/thoracotomy. Consent is on the chart.
--- NOTE | 2020-10-17 13:44 | HMH.PHACONS ---
- Pharmacy Consult Date: 10/17/20 Time: 13:46 Referring provider: DR. STRANGE Reason for Consult:: VANCOMYCIN DOSING Allergies and ADEs:: Allergies Allergy/AdvReac Type Severity Reaction Status Date / Time No Known Allergies Allergy Verified 08/30/20 13:15 Home Medications:: Home Medications Medication Instructions Recorded Confirmed Type cetirizine 10 mg tablet 10 mg PO DAILY PRN tab 05/23/18 10/17/20 History dulaglutide 0.75 mg/0.5 mL 0.75 mg SQ WEEKLY 12/02/18 10/17/20 History subcutaneous pen injector metformin 500 mg tablet 500 mg PO BIDWM 03/03/19 10/17/20 History carvedilol 3.125 mg tablet 3.125 mg PO BID tab 07/20/19 10/17/20 History furosemide 40 mg tablet 40 mg PO DAILY tab 03/01/20 10/17/20 History iron heme polypeptide 12 mg tablet 12 mg PO DAILY 03/01/20 10/17/20 History Amlodipine Besylate [Amlodipine 10 mg PO DAILY 09/30/20 10/17/20 History 10mg Tab] Atorvastatin Calcium [Lipitor 40mg 40 mg PO DAILY 09/30/20 10/17/20 History Tab] Albuterol Sulfate [Albuterol 1 - 2 puffs IH Q6HP PRN 10/01/20 10/17/20 History Sulfate Hfa] Cholecalciferol (Vitamin D3) 50,000 unit PO WEEKLY 10/01/20 10/17/20 History [Vitamin D3 50,000 unit Cap] Glimepiride [Amaryl] 2 mg PO DAILY 10/01/20 10/17/20 History Losartan Potassium [Cozaar 100mg 100 mg PO DAILY 10/01/20 10/17/20 History Tablets] Promethazine/Dextromethorphan 5 ml PO Q6H PRN 10/01/20 10/17/20 History [Promethazine-Dm Syrup] Rivaroxaban [Xarelto 15mg tablet] 15 mg PO DAILY 10/01/20 10/17/20 History Zinc Sulfate [Zinc Sulfate 220mg 220 mg PO DAILY 10/01/20 10/17/20 History capsule] Height: 1.93 m Weight: 126.637 kg Laboratory Results:: Laboratory Results - last 24 hr 10/17/20 08:22: Urine Color Yellow, Urine Appearance Clear, Urine pH 5.5, Ur Specific [place] 1.025, Urine Protein 1+, Urine Glucose (UA) Negative, Urine Ketones Negative, Urine Blood Negative, Urine Nitrate Negative, Urine Bilirubin Negative, Urine Urobilinogen 0.2, Ur Leukocyte Esterase Negative, Urine WBC Occasional, Ur Squamous Epith Cells Occasional 10/17/20 08:22: WBC 18.8 H, RBC 3.78 L, Hgb 10.7 L, Hct 34.5 L, MCV 91.2, MCH 28.2, MCHC 31.0 L, RDW 14.7, Plt Count 273, MPV 9.9, Neut % (Auto) 89.4 H, Lymph % (Auto) 3.4 L, [place] % (Auto) 7.0, Eos % (Auto) 0.2, Baso % (Auto) 0.1, Neut # (Auto) 16.8 H, Lymph # (Auto) 0.6 L, [place] # (Auto) 1.3 H, Eos # (Auto) 0.0, Baso # (Auto) 0.0, Total Counted 100, Neutrophils % (Manual) 89 H, Lymphocytes % (Manual) 3 L, Monocytes % (Manual) 8, Platelet Estimate Normal, RBC Morphology Normal 10/17/20 08:22: Sodium 133 L, Potassium 4.4, Chloride 103, Carbon Dioxide 14 L, Anion Gap 20.4 H, BUN 101 H*, Creatinine 3.80 H, Estimated Creat Clear 33, Estimated GFR 16 L*, Est GFR ( Amer) 19 L*, Glucose 253 H, Calcium 11.8 H, Total Bilirubin 0.7, AST 26, ALT 27, Alkaline Phosphatase 116, Total Creatine Kinase 175 H, Troponin I 0.04 H, C-Reactive Protein 380.2 H, Total Protein 7.4, Albumin 3.5, Globulin 3.9 H, Albumin/Globulin Ratio 0.9 L, Lipase 100 10/17/20 08:22: Lactate 2.3 H 10/17/20 08:22: D-Dimer 1.10 H 10/17/20 08:22: NT-Pro-B Natriuret Pep 2040 H 10/17/20 08:31: Specimen Source Right radial, O2 % 100 non rebreather, ABG pH 7.31 L, ABG pCO2 21.7 L, ABG pO2 59.0 L, ABG HCO3 10.8 L, ABG Total CO2 11.4 L, ABG O2 Saturation 88 L, ABG Base Excess -15.4 L, Gabriel Test Acceptable 10/17/20 08:47: Chlamy pneumoniae PCR Not detected, Adenovirus (PCR) Not detected, B. pertussis DNA (PCR) Not detected, Coronavirus OC43 (PCR) Not detected, Coronavirus HKU1 (PCR) Not detected, Coronavirus 229E (PCR) Not detected, SARS-CoV-2 (PCR) Detected A, Coronavirus NL63 (PCR) Not detected, Human Metapneumovir PCR Not detected, Influenza A (H1) PCR Not detected, Influ A (H1N1/09) PCR Not detected, Influenza A (H3) PCR Not detected, Influenza Type A (PCR) Not detected, Influenza Type B (PCR) Not detected, M. pneumoniae (PCR) Not detected, Parainfluenza 1 (PCR) Not detec
[2020-10-17 13:56] LABS: Lactic Acid Follow Up (RFLX 1) 1.5 mmol/L (0.7-2.1)
--- NOTE | 2020-10-17 14:03 | PC.NURSE ---
Pt is COVID positive so specimen cup is at bedside in case sputum is expectorated. Induction not attempted due to positive status. Mily Wagner [employer]
--- NOTE | 2020-10-17 15:03 | XR_ITS ---
PROCEDURE: XR CHEST PORTABLE CLINICAL HISTORY: left PTX (s/p chest tube) Follow-up chest tube placement COMPARISON: CR XR CHEST PORTABLE from 10/02/2020 CR XR CHEST PORTABLE from 10/06/2020 CR XR CHEST PORTABLE from 10/17/2020 FINDINGS: 1520 hours Status post insertion of the left lateral chest tube. There has been interval decrease in size of the left pneumothorax. Small apical component persists. Bilateral lower lobe consolidation once again noted. IMPRESSION: Status post left-sided chest tube placement with decrease in size of left-sided pneumothorax with small left apical component persisting Dictated by: Gabriel Seth MD 10/17/2020 15:41 Gabriel Seth MD in [facility] 10/17/2020 15:41
--- NOTE | 2020-10-17 15:04 | HMH.PROC ---
[facility] Procedure Note Procedure Note:: Procedure: Left thoracostomy tube (24 [place]) Indications: Left pneumothorax Prep: Chlorhexidine Anesthesia: 1% lidocaine Description: After informed consent was obtained the patient was maintained in a supine position. His left chest was prepped and draped in a sterile fashion. After infiltration local anesthetic a transverse incision was made along the left anterior axillary line (seventh interspace). The deep subcutaneous tissue was dissected up and over the rib margin. A 24 [place] thoracostomy tube was then secured at 18 cm using 0 silk suture. The tube was secured to the Pleur-evac and placed to continuous suction. Dressings were applied. Chest x-ray is pending. Estimated blood loss: 1 mL Complications: No immediate
--- NOTE | 2020-10-17 16:20 | HMH.PULMCON ---
*Admission Date: 10/17/20 *Reason for consult:: Acute hypoxic respiratory failure *History of present illness: Mr. Saldana is a 69-year-old male with a recent history of COVID-19 pneumonia admitted to the hospital for almost 10 days discharged on 4 L nasal cannula, COPD atrial fibrillation on anticoagulation chronic kidney disease present to hospital with worsening respiratory failure associated with cough and productive phlegm. Patient stated that since discharge he respiratory gradually declined on presentation today patient saturating 77% on room air eventually placed on nasal cannula admitted to isolation unit for further management. [facility] History Medical History: Reports:: Arrhythmia (Atrial fibrillation), Atrial Fibrillation, BPH, Coronary Artery Disease, Diabetes Mellitus Type 2, Hyperlipidemia, Hypertension, Kidney Stones, Renal Insufficiency Denies:: Cancer, Diabetes Mellitus Type 1, Internal Pacemaker, Lung Disease, MRSA, Seizures *Have you ever received a pneumonia vaccine?: Yes *Have you received a flu vaccine this season?: Yes Other Medical History: Reports: Anemia, Arthritis, Cataracts, Other (Covid pneumonia) Laterality Cases: Bilateral: Other Other Surgeries: Yes: Cardiac Catheterization, Colonoscopy, Other (Cystoscopy, TURP). No: Pacemaker Amputation: No Fractures: No - *Social History Smoking Status: Former smoker Tobacco Type: cigarettes #Yrs smoked (if former smoker): 25 Alcohol Intake: never Alcohol Intake Frequency:: 3 or more drinks per day Substance Use Type: denies use *Occupational Status:: retired Housing: house Household Members: family *Travel in the last 8 weeks: None Family Hx:: Cancer ROS - Cons Reports anorexia, Reports body ache(s), Reports chills - Card Reports shortness of breath with activity, Reports leg swelling - Resp Respiratory: Reports chest congestion, Reports cough, Reports dyspnea on exertion, Reports excessive phlegm production Meds Home Medications Medication Instructions Recorded Confirmed Type cetirizine 10 mg tablet 10 mg PO DAILY PRN tab 05/23/18 10/17/20 History dulaglutide 0.75 mg/0.5 mL 0.75 mg SQ WEEKLY 12/02/18 10/17/20 History subcutaneous pen injector metformin 500 mg tablet 500 mg PO BIDWM 03/03/19 10/17/20 History carvedilol 3.125 mg tablet 3.125 mg PO BID tab 07/20/19 10/17/20 History furosemide 40 mg tablet 40 mg PO DAILY tab 03/01/20 10/17/20 History iron heme polypeptide 12 mg tablet 12 mg PO DAILY 03/01/20 10/17/20 History Amlodipine Besylate [Amlodipine 10 mg PO DAILY 09/30/20 10/17/20 History 10mg Tab] Atorvastatin Calcium [Lipitor 40mg 40 mg PO DAILY 09/30/20 10/17/20 History Tab] Albuterol Sulfate [Albuterol 1 - 2 puffs IH Q6HP PRN 10/01/20 10/17/20 History Sulfate Hfa] Cholecalciferol (Vitamin D3) 50,000 unit PO WEEKLY 10/01/20 10/17/20 History [Vitamin D3 50,000 unit Cap] Glimepiride [Amaryl] 2 mg PO DAILY 10/01/20 10/17/20 History Losartan Potassium [Cozaar 100mg 100 mg PO DAILY 10/01/20 10/17/20 History Tablets] Promethazine/Dextromethorphan 5 ml PO Q6H PRN 10/01/20 10/17/20 History [Promethazine-Dm Syrup] Rivaroxaban [Xarelto 15mg tablet] 15 mg PO DAILY 10/01/20 10/17/20 History Zinc Sulfate [Zinc Sulfate 220mg 220 mg PO DAILY 10/01/20 10/17/20 History capsule] Allergies Allergy/AdvReac Type Severity Reaction Status Date / Time No Known Allergies Allergy Verified 08/30/20 13:15 Exam - Constitutional Comment:: Patient in mild respiratory distress on high flow nasal cannula. - HENMT Exam HENMT: Present: normocephalic, atraumatic - Neck Exam Neck:: Present: thyroid normal, no lymphadenopathy - Respiratory Exam Respiratory:: Present: able to speak in complete sentences Comments: In mild respiratory distress. Bilateral coarse breath sounds with no audible wheeze. - Cardiovascular Exam Cardiac:: Present: S1, S2 - GI Exam GI:: Present: soft - Skin Exam Skin: Present: warm,
--- NOTE | 2020-10-17 16:24 | PC.NURSE ---
son brought pt's cell phone, central office worker, and eye glasses to the unit. Items given to pt.
--- NOTE | 2020-10-17 16:26 | P.CONPHA_ITS ---
[facility] Pharmacy VTE Monitoring - Patient Demographics Admission date: 10/17/20 Report Date: 10/17/20 Time: 16:26 Allergies/Adverse Reactions: Patient Allergies No Known Allergies Allergy (Verified 08/30/20 13:15) Height: 1.93 m Weight: 126.637 kg Patient Problems: Current Active Problems Respiratory failure with hypoxia (Acute) Pneumonia (Acute) Fluid overload (Acute) Pneumonia due to COVID-19 virus (Acute) Renal failure (ARF), acute on chronic (Acute) Pneumothorax (Acute) Chronic a-fib (Chronic) Edema (Chronic) CAD (coronary artery disease) (Chronic) Diabetes (Chronic ~02/23/17) Hypertensive disorder (Chronic ~02/23/17) Hyperlipidemia (Chronic ~02/23/17) - VTE Risk Labs: VTE Related Lab Results Hgb 10.7 g/dL (14.1-18.0) L 10/17/20 08:22 Hct 34.5 % (42.0-52.0) L 10/17/20 08:22 Plt Count 273 K/mm3 (142-424) 10/17/20 08:22 BUN 101 mg/dl (9-20) H* 10/17/20 08:22 Creatinine 3.80 mg/dl (0.66-1.25) H 10/17/20 08:22 Estimated Creat Clear 33 mL/min (50-200) 10/17/20 08:22 Was VTE Risk Assessment Performed: Yes VTE Score: 6 VTE Risk Level: Moderate Risk - Prophylaxis VTE Prophylaxis Ordered?: Yes Types of VTE Prophylaxis: TEDS Knee High, Pharmacological Location of Applied Device: Bilateral Lower Extremeties Pharmacologic Type: Other (XARELTO)
[2020-10-17 17:05] LABS: POC Glucose,Bedside 152 (70-110)
--- NOTE | 2020-10-17 19:32 | PC.WOUNDNOTE ---
Wound Location: Length: Width: Depth: Undermining Y/N: Tunneling cm: Granulation %: Slough/necrotic tissue %: Inflammation/swelling Y/N: Pain and/or tenderness Y/N: Exudate: Serosanguinous Sanguinous Serosanguinous Seropurulent Purulent Color: Clear Tesha Cloudy/milky Brutus Red Green Yellow Brown Singh Blue Consistency: Thick Thin Amount: None Scant Small Moderate Large Odor Y/N: the next 2 pictures: left buttock stage II 5cm x 3cm the next 2 pictures: right buttock stage II 5cm x 3cm
[2020-10-17 22:54] LABS: POC Glucose,Bedside 166 (70-110)
[2020-10-18] VITALS (14 sets, daily range): BP systolic 112–142; BP diastolic 65–82; PULSE 50–95; RESP 18–22; TEMP 36.6–36.8; O2SAT 91–97; BMI 34.0
--- NOTE | 2020-10-18 06:22 | HMH.GSPN ---
Subjective Narrative: Overall, no significant changes in status. Per nursing, he has had some intermittent complaints of chest pain through the evening. Progress Note: A&P (1) Pneumonia due to COVID-19 virus Status: Acute (2) Pneumothorax Status: Acute Assessment and plan: Overall, no significant changes status post left chest tube placement Continue to follow serial chest x-rays Keep chest tube to suction for now (3) Renal failure (ARF), acute on chronic Status: Acute (4) Respiratory failure with hypoxia Status: Acute (5) Fluid overload Status: Acute (6) Chronic a-fib Status: Chronic (7) Edema Status: Chronic (8) CAD (coronary artery disease) Status: Chronic (9) Diabetes Status: Chronic (10) Hyperlipidemia Status: Chronic (11) Hypertensive disorder Problem details: Status: Chronic Exam Vital signs and Labs for Last 24 Hours: Temp Pulse Resp BP Pulse Ox 98.3 F 72 18 112/68 94 L 10/18/20 03:47 10/18/20 03:47 10/18/20 03:47 10/18/20 03:47 10/18/20 03:47 Laboratory Results - last 24 hr 10/17/20 08:22: Urine Color Yellow, Urine Appearance Clear, Urine pH 5.5, Ur Specific [place] 1.025, Urine Protein 1+, Urine Glucose (UA) Negative, Urine Ketones Negative, Urine Blood Negative, Urine Nitrate Negative, Urine Bilirubin Negative, Urine Urobilinogen 0.2, Ur Leukocyte Esterase Negative, Urine WBC Occasional, Ur Squamous Epith Cells Occasional 10/17/20 08:22: WBC 18.8 H, RBC 3.78 L, Hgb 10.7 L, Hct 34.5 L, MCV 91.2, MCH 28.2, MCHC 31.0 L, RDW 14.7, Plt Count 273, MPV 9.9, Neut % (Auto) 89.4 H, Lymph % (Auto) 3.4 L, [place] % (Auto) 7.0, Eos % (Auto) 0.2, Baso % (Auto) 0.1, Neut # (Auto) 16.8 H, Lymph # (Auto) 0.6 L, [place] # (Auto) 1.3 H, Eos # (Auto) 0.0, Baso # (Auto) 0.0, Total Counted 100, Neutrophils % (Manual) 89 H, Lymphocytes % (Manual) 3 L, Monocytes % (Manual) 8, Platelet Estimate Normal, RBC Morphology Normal 10/17/20 08:22: Sodium 133 L, Potassium 4.4, Chloride 103, Carbon Dioxide 14 L, Anion Gap 20.4 H, BUN 101 H*, Creatinine 3.80 H, Estimated Creat Clear 33, Estimated GFR 16 L*, Est GFR ( Amer) 19 L*, Glucose 253 H, Calcium 11.8 H, Total Bilirubin 0.7, AST 26, ALT 27, Alkaline Phosphatase 116, Total Creatine Kinase 175 H, Troponin I 0.04 H, C-Reactive Protein 380.2 H, Total Protein 7.4, Albumin 3.5, Globulin 3.9 H, Albumin/Globulin Ratio 0.9 L, Lipase 100 10/17/20 08:22: Lactate 2.3 H 10/17/20 08:22: D-Dimer 1.10 H 10/17/20 08:22: NT-Pro-B Natriuret Pep 2039 H 10/17/20 08:31: Specimen Source Right radial, O2 % 100 non rebreather, ABG pH 7.31 L, ABG pCO2 21.7 L, ABG pO2 59.0 L, ABG HCO3 10.8 L, ABG Total CO2 11.4 L, ABG O2 Saturation 88 L, ABG Base Excess -15.4 L, Gabriel Test Acceptable 10/17/20 08:47: Chlamy pneumoniae PCR Not detected, Adenovirus (PCR) Not detected, B. pertussis DNA (PCR) Not detected, Coronavirus OC43 (PCR) Not detected, Coronavirus HKU1 (PCR) Not detected, Coronavirus 229E (PCR) Not detected, SARS-CoV-2 (PCR) Detected A, Coronavirus NL63 (PCR) Not detected, Human Metapneumovir PCR Not detected, Influenza A (H1) PCR Not detected, Influ A (H1N1/09) PCR Not detected, Influenza A (H3) PCR Not detected, Influenza Type A (PCR) Not detected, Influenza Type B (PCR) Not detected, M. pneumoniae (PCR) Not detected, Parainfluenza 1 (PCR) Not detected, Parainfluenza 2 (PCR) Not detected, Parainfluenza 3 (PCR) Not detected, Parainfluenza 4 (PCR) Not detected, RSV (PCR) Not detected, Entero/Rhino (PCR) Not detected 10/17/20 11:09: POC Glucose 262 H 10/17/20 13:35: Lactate 1.5 10/17/20 16:58: POC Glucose 152 H 10/17/20 21:42: POC Glucose 166 H I & O for Last 24 hours: Intake & Output 10/15/20 10/16/20 10/17/20 10/18/20 11:59 11:59 11:59 11:59 Intake Total 1130 / 1130 Output Total 580 / 580 Balance 550 / 550 Weight 279 lb 3 oz - Constitutional Comments: Per nursing, no distress and no changes - *Routine Respiratory Exam
[2020-10-18 06:29] LABS: POC Glucose,Bedside 150 (70-110)
--- NOTE | 2020-10-18 06:39 | PC.NURSE ---
Pt A&O x4 and slept well through the night. Pt lung sounds are diminished with crackles throughout. PT has chest tube on left upper chest, total of 60 output of serosanguineous fluid. Drsg c/d/i. Pt on vapotherm, 30L, 90%, sats in the mid 90s. 2/3+ edema noted to BLE. Pt has has two small BMs this shift. Arch[place] draining clear yellow urine. Pt has been turned q2h. stage 2 DTI on bilateral glutes, drsg in place. VSS, call light in reach. No concerns at this time.
--- NOTE | 2020-10-18 07:00 | XR_ITS ---
PROCEDURE: XR CHEST PORTABLE CLINICAL HISTORY: cough Follow-up pneumonia and left-sided pneumothorax COMPARISON: CR XR CHEST PORTABLE from 10/06/2020 CR XR CHEST PORTABLE from 10/17/2020 CR XR CHEST PORTABLE from 10/17/2020 FINDINGS: Cardiomegaly. Diffuse bilateral pneumonia is unchanged. Left-sided chest tube remains in place. There is some increased density along the left apex which may be due to some fluid in the pleural space within a small pneumothorax which is not significantly changed.. IMPRESSION: No change diffuse bilateral pneumonia with left-sided chest tube with some small residual left apical pneumothorax Dictated by: Gabriel Seth MD 10/18/2020 06:39 Gabriel Seth MD in [facility] 10/18/2020 06:39
--- NOTE | 2020-10-18 08:10 | HMH.PHAINT ---
home medication reconciliation completed using list from previous discharge on 10/12/20
--- NOTE | 2020-10-18 08:21 | HMH.PULMPN ---
Internal Medicine - PN: Subj *Date: 10/18/20 *Time: 09:27 Interval history: No acute respite events overnight. Exam - Constitutional Constitutional:: Present: no acute distress, comfortable - HENMT Exam HENMT: Present: normocephalic, atraumatic - Eye Exam Eyes:: Present: normal appearance both eyes and related structures - Neck Exam Neck:: Present: normal visual inspection - Respiratory Exam Respiratory:: Present: able to speak in complete sentences, no respiratory distress, crackles - Cardiovascular Exam Cardiac:: Present: S1, S2 - GI Exam GI:: Present: soft - Skin Exam Skin: Present: warm, no rash - Neurological Exam Neurological: Present: alert, awake, normal cognition - Extremities Exam Extremities: Present: no cyanosis, no clubbing, edema - Psychiatric Exam Psychiatric: Present: normal affect Assessment and Plan (1) Pneumonia due to COVID-19 virus Status: Acute Category: Medical Code(s): U07.1 - COVID-19; J12.82 - Pneumonia due to coronavirus disease 2019 (2) Pneumothorax Status: Acute Category: Medical Code(s): J93.9 - Pneumothorax, unspecified (3) Renal failure (ARF), acute on chronic Status: Acute Category: Medical Code(s): N17.9 - Acute kidney failure, unspecified; N18.9 - Chronic kidney disease, unspecified (4) Respiratory failure with hypoxia Status: Acute Qualifiers: Chronicity: acute Qualified Code(s): J96.01 - Acute respiratory failure with hypoxia Category: Medical Code(s): J96.91 - Respiratory failure, unspecified with hypoxia (5) Fluid overload Status: Acute Qualifiers: Hypervolemia type: other Qualified Code(s): E87.79 - Other fluid overload Category: Medical Code(s): E87.70 - Fluid overload, unspecified (6) Chronic a-fib Status: Chronic Category: Medical Code(s): I48.20 - Chronic atrial fibrillation, unspecified (7) Edema Status: Chronic Qualifiers: Edema type: generalized Qualified Code(s): R60.1 - Generalized edema Category: Medical Code(s): R60.9 - Edema, unspecified (8) CAD (coronary artery disease) Status: Chronic Qualifiers: Coronary Disease-Associated Artery/Lesion type: [place] artery [place] vs. transplanted heart: [place] heart Associated angina: without angina Qualified Code(s): I25.10 - Atherosclerotic heart disease of [place] coronary artery without angina pectoris Category: Medical Code(s): I25.10 - Atherosclerotic heart disease of [place] coronary artery without angina pectoris (9) Diabetes Status: Chronic Qualifiers: Diabetes mellitus type: type 2 Diabetes mellitus care home insulin use: without care home use Diabetes mellitus complication status: without complication Qualified Code(s): E11.9 - Type 2 diabetes mellitus without complications Category: Medical Code(s): E11.9 - Type 2 diabetes mellitus without complications (10) Hyperlipidemia Status: Chronic Qualifiers: Hyperlipidemia type: other hyperlipidemia Qualified Code(s): E78.49 - Other hyperlipidemia Category: Medical Code(s): E78.5 - Hyperlipidemia, unspecified (11) Hypertensive disorder Problem details: Status: Chronic Qualifiers: Hypertension type: essential hypertension Qualified Code(s): I10 - Essential (primary) hypertension Category: Medical Code(s): I10 - Essential (primary) hypertension - Assessment and plan all Dx Assessment and Plan for all problems:: #COVID-19 pneumonia: #Acute on Chronic hypoxic respiratory failure: #Left Pneumothorax s/p chest tube placement: 69-year-old previous smoker around 3 to 4 packs a day last smoked in 2017, recent diagnosis of COVID-19 pneumonia admitted to the hospital for almost 10 days requiring Ventimask and eventually discharged home on 4 L nasal cannula during which he received remdesivir and dexamethasone along with cefdinir and azithromycin with negative blood and sputum cultures on that admission pre
--- NOTE | 2020-10-18 09:22 | HMH.ACPN2 ---
Internal Medicine - PN: Rajni *Date: 10/18/20 *Time: 09:22 Interval history: Pt reports have diarrhea overnight. Exam Vital signs and Labs for Last 24 Hours: Temp Pulse Resp BP Pulse Ox 98.3 F 50 L 18 112/68 94 L 10/18/20 03:47 10/18/20 04:00 10/18/20 03:47 10/18/20 03:47 10/18/20 03:47 Laboratory Results - last 24 hr 10/17/20 08:22: WBC 18.8 H, RBC 3.78 L, Hgb 10.7 L, Hct 34.5 L, MCV 91.2, MCH 28.2, MCHC 31.0 L, RDW 14.7, Plt Count 273, MPV 9.9, Neut % (Auto) 89.4 H, Lymph % (Auto) 3.4 L, [place] % (Auto) 7.0, Eos % (Auto) 0.2, Baso % (Auto) 0.1, Neut # (Auto) 16.8 H, Lymph # (Auto) 0.6 L, [place] # (Auto) 1.3 H, Eos # (Auto) 0.0, Baso # (Auto) 0.0, Total Counted 100, Neutrophils % (Manual) 89 H, Lymphocytes % (Manual) 3 L, Monocytes % (Manual) 8, Platelet Estimate Normal, RBC Morphology Normal 10/17/20 08:22: C-Reactive Protein 380.2 H 10/17/20 08:22: Lactate 2.3 H 10/17/20 08:47: Chlamy pneumoniae PCR Not detected, Adenovirus (PCR) Not detected, B. pertussis DNA (PCR) Not detected, Coronavirus OC43 (PCR) Not detected, Coronavirus HKU1 (PCR) Not detected, Coronavirus 229E (PCR) Not detected, SARS-CoV-2 (PCR) Detected A, Coronavirus NL63 (PCR) Not detected, Human Metapneumovir PCR Not detected, Influenza A (H1) PCR Not detected, Influ A (H1N1/09) PCR Not detected, Influenza A (H3) PCR Not detected, Influenza Type A (PCR) Not detected, Influenza Type B (PCR) Not detected, M. pneumoniae (PCR) Not detected, Parainfluenza 1 (PCR) Not detected, Parainfluenza 2 (PCR) Not detected, Parainfluenza 3 (PCR) Not detected, Parainfluenza 4 (PCR) Not detected, RSV (PCR) Not detected, Entero/Rhino (PCR) Not detected 10/17/20 11:09: POC Glucose 262 H 10/17/20 13:35: Lactate 1.5 10/17/20 16:58: POC Glucose 152 H 10/17/20 21:42: POC Glucose 166 H 10/18/20 06:04: POC Glucose 150 H Vital Signs - 24 hr 10/17/20 09:42 10/17/20 10:10 10/17/20 10:46 Temperature 98.2 F Pulse Rate 74 Pulse Rate [Right] 80 75 Respiratory Rate 30 H Blood Pressure 172/80 H Blood Pressure [Right Arm] 172/104 H 174/93 H 02 Sat by Pulse Oximetry 89 L 88 L 10/17/20 10:52 10/17/20 10:56 10/17/20 12:00 Temperature 97.9 F 97.8 F Pulse Rate 72 Pulse Rate [Right] 86 76 Respiratory Rate 25 H 22 Blood Pressure Blood Pressure [Right Arm] 130/77 137/79 02 Sat by Pulse Oximetry 91 L 95 93 L 10/17/20 12:12 10/17/20 16:00 10/17/20 18:30 Temperature 97.1 F L Pulse Rate 87 84 Pulse Rate [Right] 73 Respiratory Rate 22 Blood Pressure Blood Pressure [Right Arm] 107/62 L 02 Sat by Pulse Oximetry 94 L 94 L 94 L 10/17/20 20:00 10/17/20 22:53 10/17/20 23:29 Temperature 98.0 F Pulse Rate 60 79 Pulse Rate [Right] 74 Respiratory Rate 19 Blood Pressure Blood Pressure [Right Arm] 124/63 02 Sat by Pulse Oximetry 93 L 95 10/18/20 00:00 10/18/20 03:47 10/18/20 04:00 Temperature 98.2 F 98.3 F Pulse Rate 50 L 50 L Pulse Rate [Right] 77 72 Respiratory Rate 19 18 Blood Pressure Blood Pressure [Right Arm] 118/66 112/68 02 Sat by Pulse Oximetry 94 L 94 L I & O for Last 24 hours: Intake & Output 10/15/20 10/16/20 10/17/20 10/18/20 23:59 23:59 23:59 23:59 Intake Total 650 / 1130 720 / 720 Output Total 570 / 580 50 / 50 Balance 80 / 550 670 / 670 Weight 279 lb 3 oz - Constitutional no acute distress - *Routine HEENT Exam Head: Present: normocephalic Eye: Present: EOMI ENT: Present: mucous membranes moist - *Routine Neck Exam Present: supple. Absent: lymphadenopathy - *Routine Respiratory Exam Present: rhonchi, crackles - *Routine Cardiovascular Exam Present: RRR - *Routine Abdominal Exam Present: soft, normoactive bowel sounds. Absent: tenderness - *Routine Extremities Exam Present: edema. Absent: cyanosis, clubbing - *Routine Skin Exam Present: warm - *Routine Neurological Exam Present: alert, oriented X3 Assessment and Plan (1) Pneumonia due to COVID-19 viru
[2020-10-18 10:40] LABS: Chloride 107 mmol/L (98-107); Sodium 132 mmol/L (136-145)
[2020-10-18 10:41] LABS: Potassium 3.6 mmoL/L (3.5-5.1)
[2020-10-18 10:44] LABS: Anion Gap 14.6 mEq/L (5-15); Carbon Dioxide 14 mmol/L (22.0-30.0); Glucose 220 mg/dl (74-100)
[2020-10-18 10:50] LABS: Creatinine Clearance Estimated 29 mL/min (50-200); Estimated Glomerular Filt Rate 14 ml/min (>60); GFR (African American) 17 ML/MIN (>60)
[2020-10-18 10:57] LABS: Blood Urea Nitrogen 116 mg/dl (9-20)
[2020-10-18 11:29] LABS: Calcium 10.1 mg/dl (8.4-10.2)
--- NOTE | 2020-10-18 11:36 | PC.NURSE ---
Dr. Sun notified of critical BUN and Cr results.
[2020-10-18 11:58] LABS: POC Glucose,Bedside 225 (70-110)
[2020-10-18 13:44] LABS: Adenovirus F 40/41, stool Not Detected (NotDetected); Astrovirus Not Detected (NotDetected); Campylobacter Not Detected (NotDetected); Clostridium Difficile A/B, PCR Not Detected (NotDetected); Cryptosporidium Not Detected (NotDetected); Cyclospora Cayetanesis Not Detected (NotDetected); Entamoeba histolytica Not Detected (NotDetected); Enteroaggregative E coli Not Detected (NotDetected); Enteropathogenic E coli Not Detected (NotDetected); Enterotoxigenic E coli Not Detected (NotDetected); Giardia lamblia Not Detected (NotDetected); Norovirus Not Detected (NotDetected); Plesimonas Shigalloides, PCR Not Detected (NotDetected); Rotavirus A Not Detected (NotDetected); Salmonella, PCR Not Detected (NotDetected); Sapovirus Not Detected (NotDetected); Shiga-like toxin E coli Not Detected (NotDetected); Shigella Enterovasive E coli Not Detected (NotDetected); Vibrio Cholerae Not Detected (NotDetected); Vibrio, PCR Not Detected (NotDetected); Yersinia Entercolitica, PCR Not Detected (NotDetected)
[2020-10-18 17:00] LABS: POC Glucose,Bedside 142 (70-110)
--- NOTE | 2020-10-18 18:52 | PC.NURSE ---
PT IS RESTING IN BED. PT NEEDS TO BE ENCOURAGED TO TURN AND REPOSITION FREQUENTLY. BATH AND BED CHANGE THIS SHIFT. STAGE 2 NOTED TO THE BUTTOCKS WITH DRESSING C/D/I. LUNG SOUNDS HAVE SCATTERED RHONCHI/CRACKLES. ABDOMEN SOFT/LARGE/NON TENDER WITH ACTIVE BOWEL SOUNDS. PT HAD 3 LOOSE BOWEL MOVEMENTS THIS SHIFT. 3+ PITTING EDEMA NOTED TO BLE. PT VOIDED 1650 ML'S THIS SHIFT. REFUSED LUNCH AND SUPPER BUT DID EAT A FEW BITES OF BREAKFAST. DRINKING WELL. CHEST TUBE NOTED TO THE LT SIDE ON CONTINUOUS SUCTION. 80 ML'S OF DRAINAGE. DRESSING REINFORCED. O2 SATURATION HAS MAINTAINED 92-95% ON VAPOTHERM 30 L AND 70% FIO2. REPORT HANDOFF TO THIERRY RIVERA RN.
[2020-10-18 20:42] LABS: POC Glucose,Bedside 112 (70-110)
[2020-10-19] VITALS (11 sets, daily range): BP systolic 118–161; BP diastolic 72–88; PULSE 50–94; RESP 18–24; TEMP 36.6–36.9; O2SAT 89–95
--- NOTE | 2020-10-19 03:55 | PC.NURSE ---
Pt has been A&Ox4 this shift. Rhonchi heard t/o all lung garcia per auscultation. Productive cough noted this shift, sputum sample was collected and will be sent out w/ morning labs. Pt has been a q2h turn, but has refused a couple times. Pt has had x1 large, loose BM this shift. Archibald cath draining cloudy, dark yellow urine per gravity. No other acute changes or complaints at this time.
[2020-10-19 06:23] LABS: POC Glucose,Bedside 129 (70-110)
--- NOTE | 2020-10-19 09:09 | HMH.ACPN2 ---
Internal Medicine - PN: Subj *Date: 10/19/20 *Time: 09:30 Interval history: Pt still feels like he has a lot of intestinal gas, Coreg stopped due to Bradycardia Exam Vital signs and Labs for Last 24 Hours: Temp Pulse Resp BP Pulse Ox 98.3 F 91 H 22 133/77 89 L 10/19/20 08:00 10/19/20 08:00 10/19/20 08:00 10/19/20 08:00 10/19/20 08:00 Laboratory Results - last 24 hr 10/18/20 10:00: Sodium 132 L, Potassium 3.6, Chloride 107, Carbon Dioxide 14 L, Anion Gap 14.6, BUN 116 H*, Creatinine 4.20 H, Estimated Creat Clear 29, Estimated GFR 14 L*, Est GFR ( Amer) 17 L*, Glucose 220 H, Calcium 10.1 D 10/18/20 11:41: POC Glucose 225 H 10/18/20 16:32: POC Glucose 142 H 10/18/20 20:20: POC Glucose 112 H 10/19/20 06:10: POC Glucose 129 H Vital Signs - 24 hr 10/18/20 11:55 10/18/20 12:00 10/18/20 16:00 Temperature 97.8 F Pulse Rate 84 80 74 Pulse Rate [Right] 75 Respiratory Rate 18 Blood Pressure [Right Arm] 124/68 02 Sat by Pulse Oximetry 94 L 10/18/20 17:00 10/18/20 18:26 10/18/20 19:59 Temperature Pulse Rate 76 70 Pulse Rate [Right] Respiratory Rate Blood Pressure [Right Arm] 02 Sat by Pulse Oximetry 94 L 93 L 10/18/20 20:00 10/18/20 21:36 10/18/20 22:45 Temperature 98.3 F Pulse Rate 76 Pulse Rate [Right] 65 Respiratory Rate 22 Blood Pressure [Right Arm] 142/82 H 02 Sat by Pulse Oximetry 94 L 91 L 10/19/20 00:00 10/19/20 04:00 10/19/20 06:14 Temperature 98.4 F Pulse Rate 50 L 70 74 Pulse Rate [Right] 81 79 Respiratory Rate 20 18 Blood Pressure [Right Arm] 136/72 118/77 02 Sat by Pulse Oximetry 91 L 91 L 89 L 10/19/20 08:00 Temperature 98.3 F Pulse Rate Pulse Rate [Right] 91 H Respiratory Rate 22 Blood Pressure [Right Arm] 133/77 02 Sat by Pulse Oximetry 89 L I & O for Last 24 hours: Intake & Output 10/16/20 10/17/20 10/18/20 10/19/20 23:59 23:59 23:59 23:59 Intake Total 650 / 1130 2160 / 2750 830 / 830 Output Total 570 / 580 1780 / 3500 1720 / 1720 Balance 80 / 550 380 / -750 -890 / -890 Weight 279 lb 3 oz 279 lb 15.793 oz Microbiology Reports for the Last 24 Hours: Microbiology 10/18/20 10:32 Nose - Nasal MRSA Culture - Final 10/19/20 04:30 Sputum - Expectorated Sputum Gram Stain - Final - Constitutional no acute distress - *Routine Respiratory Exam Present: crackles. Absent: wheezes - *Routine Cardiovascular Exam Present: RRR Assessment and Plan (1) Pneumonia due to COVID-19 virus Status: Acute Category: Medical Code(s): U07.1 - COVID-19; J12.82 - Pneumonia due to coronavirus disease 2019 (2) Pneumothorax Status: Acute Category: Medical Code(s): J93.9 - Pneumothorax, unspecified (3) Renal failure (ARF), acute on chronic Status: Acute Category: Medical Code(s): N17.9 - Acute kidney failure, unspecified; N18.9 - Chronic kidney disease, unspecified (4) Respiratory failure with hypoxia Status: Acute Qualifiers: Chronicity: acute Qualified Code(s): J96.01 - Acute respiratory failure with hypoxia Category: Medical Code(s): J96.91 - Respiratory failure, unspecified with hypoxia (5) Fluid overload Status: Acute Qualifiers: Hypervolemia type: other Qualified Code(s): E87.79 - Other fluid overload Category: Medical Code(s): E87.70 - Fluid overload, unspecified (6) Chronic a-fib Status: Chronic Category: Medical Code(s): I48.20 - Chronic atrial fibrillation, unspecified (7) Edema Status: Chronic Qualifiers: Edema type: generalized Qualified Code(s): R60.1 - Generalized edema Category: Medical Code(s): R60.9 - Edema, unspecified (8) CAD (coronary artery disease) Status: Chronic Qualifiers: Coronary Disease-Associated Artery/Lesion type: [place] artery [place] vs. transplanted heart: [place] heart Associated angina: without angina Qualified Code(s): I25.10 - Atherosclerotic heart disease of [place] co
--- NOTE | 2020-10-19 09:32 | XR_ITS ---
PROCEDURE: XR CHEST PORTABLE Referring Doctor: Deng Mullen Patient Age:69Y CLINICAL HISTORY: PNEUMONIA, PNEUMOTHORAX Covd 19 COMPARISON: CR XR CHEST PORTABLE from 10/17/2020 CR XR CHEST PORTABLE from 10/17/2020 CR XR CHEST PORTABLE from 10/18/2020 FINDINGS: AP semi-erect portable CXR . bilateral diffuse prominent pulmonary infiltrates again seen similar to previous study.. Left chest:. Infiltrate is most pronounced in dense at left mid and left lower lung field. There is some atelectasis associated with elevation left hemidiaphragm. Actually the diaphragm is slightly better delineated today than on previous studies but overall I see no of prominent change otherwise. There likely is a scant left pleural effusion with some minimal fluid at the lateral aspect the left CP angle and likely overlying the left apical cap Left chest tube remains with tip extending up to the level of the lateral anterior 3rd rib seems to be in good position radiographically . This is a semi-erect P CXR. I suspect the patient is somewhat more supine and thus with this pleural fluid tracks up to the left apex and fills the left apical region and thus we do not have the air pleural interface is seen previously but suspect the left lung is not re-expanded. Follow-up true upright portable portable chest films would be helpful Right lung: Infiltrate throughout with density most pronounced at the right mid lung extending lateral from right kanwal a similar to yesterday. The infiltrate throughout the right lower lung field is similar to yesterday but less dense. The superior mediastinum unchanged. secured entrance monitor leads are in place. No acute bony abnormalities. IMPRESSION: . Prominent bilateral diffuse infiltrates similar to yesterday's study Infiltrate most dense and pronounced at the left mid and lower lung field Left chest tube in remains in place.: I suspect small minimal pleural fluid fills the pleural apex and pleural cap region today on this more supine semi-erect pCXR. I do not believe the left lung not yet fully re-expanded. A follow-up upright portable tomorrow October 20 recommended Dictated by: Jean-Claude Suh MD 10/20/2020 10:02 Jean-Claude Suh MD in [place] 10/20/2020 10:02
[2020-10-19 12:00] LABS: POC Glucose,Bedside 211 (70-110)
--- NOTE | 2020-10-19 12:10 | HMH.GSPN ---
Subjective Patient reports: no new complaints Progress Note: A&P (1) Pneumonia due to COVID-19 virus Status: Acute (2) Pneumothorax Status: Acute Assessment and plan: No visible air leak. Placed to waterseal. (3) Renal failure (ARF), acute on chronic Status: Acute (4) Respiratory failure with hypoxia Status: Acute (5) Fluid overload Status: Acute (6) Chronic a-fib Status: Chronic (7) Edema Status: Chronic (8) CAD (coronary artery disease) Status: Chronic (9) Diabetes Status: Chronic (10) Hyperlipidemia Status: Chronic (11) Hypertensive disorder Problem details: Status: Chronic (12) Diarrhea Status: Acute Exam Vital signs and Labs for Last 24 Hours: Temp Pulse Resp BP Pulse Ox 98.3 F 91 H 22 133/77 89 L 10/19/20 08:00 10/19/20 08:00 10/19/20 08:00 10/19/20 08:00 10/19/20 08:00 Laboratory Results - last 24 hr 10/18/20 16:32: POC Glucose 142 H 10/18/20 20:20: POC Glucose 112 H 10/19/20 06:10: POC Glucose 129 H 10/19/20 11:50: POC Glucose 211 H I & O for Last 24 hours: Intake & Output 10/17/20 10/18/20 10/19/20 10/20/20 11:59 11:59 11:59 11:59 Intake Total 1850 / 1850 1790 / 1790 Output Total 620 / 620 3450 / 3450 Balance 1230 / 1230 -1660 / -1660 Weight 279 lb 3 oz 279 lb 15.793 oz Microbiology Reports for the Last 24 Hours: Microbiology 10/17/20 08:22 Blood Blood Culture - Preliminary NO GROWTH AFTER 48 HOURS 10/17/20 08:22 Blood Blood Culture - Preliminary NO GROWTH AFTER 48 HOURS 10/18/20 10:32 Nose - Nasal MRSA Culture - Final 10/19/20 04:30 Sputum - Expectorated Sputum Gram Stain - Final
[2020-10-19 17:22] LABS: POC Glucose,Bedside 165 (70-110)
--- NOTE | 2020-10-19 18:11 | PC.NURSE ---
Pt has been pleasant and somewhat cooperative this shift. A&O X4. No complaints of pain or SOA. Pt is receiving O2 via Vapotherm @ 30 LPM with sats. >90%. Lung sounds reveal inspiratory/expiratory rhonchi. 2+ pitting edema noted to BLE. Unstageable pressure ulcer noted to Coccyx, covered with Allevyn dressing, C/D/I. F/C is patent and draining clear, yellow urine at bedside to gravity. Pt is incontinent of bowel and has had 4 soft, brown stools thus far this shift. Attempts have been made to turn/reposition pt Q2H, but pt has refused several times. Pt also refused to get OOB this shift. Appetite is poor and pt only eats about 20% of each meal. 20 G peripheral IV in the RT AC is patent and SL. 20 G peripheral IV in the LT forearm is patent and SL. VSS. Call light within reach. Will continue to monitor.
[2020-10-19 20:45] LABS: POC Glucose,Bedside 143 (70-110)
[2020-10-20] VITALS (12 sets, daily range): BP systolic 127–189; BP diastolic 58–83; PULSE 57–92; RESP 18–22; TEMP 36.2–36.9; O2SAT 89–97; BMI 32.8
--- NOTE | 2020-10-20 03:21 | PC.NURSE ---
Addendum entered by Tati Temple RN 10/20/20 03:30: In addition, +3 pitting edema noted to BLE. Original Note: Pt has been A&Ox4. Expiratory rhonchi noted t/o all lung garcia. Pt continues on vapotherm @ 30 L, 70% FiO2. O2 sats have been between 90-93% this shift. Productive cough noted this shift. Even after educating pt on the importance of turning in bed and relieving pressure off his backside, pt has refused most q2h turns. Hyperactive bowel sounds noted in all 4 quads. No BM noted thus far this shift. Archibald cath remains patent and is draining clear, bright yellow urine per gravity. No other acute changes or complaints at this time.
[2020-10-20 06:14] LABS: Basophils % 0.1 % (0.1-2.0); Eosinophils # 0.1 K/mm3 (0.0-0.4); Eosinophils % 0.6 % (0.1-12.0); Hematocrit 32.3 % (42.0-52.0); Hemoglobin 10.6 g/dL (14.1-18.0); Lymphocytes # 0.6 K/mm3 (0.7-4.5); Lymphocytes % 4.9 % (10-50); Mean Corpuscular HGB Conc 32.7 g/dL (31.8-35.4); Mean Corpuscular Hemoglobin 29.3 pg (27.0-31.2); Mean Corpuscular Volume 89.6 fl (80-94); Monocytes # 0.8 K/mm3 (0.1-1.0); Monocytes % 6.3 % (1.7-9.3); Neutrophils # 11.1 K/mm3 (1.8-7.8); Neutrophils % 88.1 % (37.0-80.0); Platelet Count 180 K/mm3 (142-424); Red Cell Distribution Width 14.9 % (11.5-17.5); White Blood Count 12.6 K/mm3 (4.8-10.8)
[2020-10-20 06:16] LABS: MANUAL DIFFERENTIAL MANUAL DIFFERENTIAL (MANUAL DIFF)
[2020-10-20 06:33] LABS: Anion Gap 19.8 mEq/L (5-15); Calcium 9.8 mg/dl (8.4-10.2); Carbon Dioxide 12 mmol/L (22.0-30.0); Chloride 108 mmol/L (98-107); Glucose 140 mg/dl (74-100); Potassium 3.8 mmoL/L (3.5-5.1); Sodium 136 mmol/L (136-145)
[2020-10-20 06:40] LABS: Estimated Glomerular Filt Rate 20 ml/min (>60); GFR (African American) 24 ML/MIN (>60)
[2020-10-20 06:48] LABS: Creatinine Clearance Estimated 38 mL/min (50-200)
[2020-10-20 06:49] LABS: Blood Urea Nitrogen 122 mg/dl (9-20)
[2020-10-20 07:24] LABS: Lymphocytes % 8 % (10-50); Monocytes % 3 % (2-9); Neutrophils % 86 % (42-76); Platelet Estimate Normal; RBC Morphology Normal; Total Cells Counted 100
--- NOTE | 2020-10-20 08:11 | HMH.ACPN2 ---
Internal Medicine - PN: Subj *Date: 10/20/20 *Time: 09:05 Interval history: Patient with no new complaints. He still has some upper abd discomfort and left sided chest pain. Diarrhea has improved. Exam Vital signs and Labs for Last 24 Hours: Temp Pulse Resp BP Pulse Ox 97.9 F 65 20 163/83 H 91 L 10/20/20 04:00 10/20/20 05:15 10/20/20 04:00 10/20/20 04:00 10/20/20 05:15 Laboratory Results - last 24 hr 10/19/20 11:50: POC Glucose 211 H 10/19/20 16:24: POC Glucose 165 H 10/19/20 20:35: POC Glucose 143 H 10/20/20 06:00: WBC 12.6 H D, RBC 3.60 L, Hgb 10.6 L, Hct 32.3 L, MCV 89.6, MCH 29.3, MCHC 32.7, RDW 14.9, Plt Count 180 D, MPV 9.0, Neut % (Auto) 88.1 H, Lymph % (Auto) 4.9 L, [place] % (Auto) 6.3, Eos % (Auto) 0.6, Baso % (Auto) 0.1, Neut # (Auto) 11.1 H, Lymph # (Auto) 0.6 L, [place] # (Auto) 0.8, Eos # (Auto) 0.1, Baso # (Auto) 0.0, Total Counted 100, Neutrophils % (Manual) 86 H, Band Neutrophils % 3.0, Lymphocytes % (Manual) 8 L, Monocytes % (Manual) 3, Platelet Estimate Normal, RBC Morphology Normal 10/20/20 06:00: Sodium 136, Potassium 3.8, Chloride 108 H, Carbon Dioxide 12 L, Anion Gap 19.8 H, BUN 122 H*, Creatinine 3.10 H D, Estimated Creat Clear 38, Estimated GFR 20 L, Est GFR ( Amer) 24 L D, Glucose 140 H, Calcium 9.8 Vital Signs - 24 hr 10/19/20 12:00 10/19/20 12:48 10/19/20 15:55 Temperature 98.5 F 98.5 F Pulse Rate 70 74 Pulse Rate [Apical] 94 H 77 Respiratory Rate 20 24 Blood Pressure [Right Arm] 147/88 H 135/78 02 Sat by Pulse Oximetry 95 91 L 94 L 10/19/20 16:00 10/19/20 18:08 10/19/20 20:00 Temperature 97.8 F Pulse Rate 50 L 77 78 Pulse Rate [Apical] 67 Respiratory Rate 22 Blood Pressure [Right Arm] 161/82 H 02 Sat by Pulse Oximetry 94 L 91 L 10/19/20 23:05 10/20/20 00:00 10/20/20 03:58 Temperature Pulse Rate 76 80 80 Pulse Rate [Apical] 78 Respiratory Rate 21 Blood Pressure [Right Arm] 137/79 02 Sat by Pulse Oximetry 93 L 90 L 10/20/20 04:00 10/20/20 05:15 Temperature 97.9 F Pulse Rate 62 Pulse Rate [Apical] 92 H Respiratory Rate 20 Blood Pressure [Right Arm] 163/83 H 02 Sat by Pulse Oximetry 89 L 91 L I & O for Last 24 hours: Intake & Output 10/17/20 10/18/20 10/19/20 10/20/20 23:59 23:59 23:59 23:59 Intake Total 650 / 1130 2160 / 2750 1290 / 1750 460 / 460 Output Total 570 / 580 1780 / 3500 3890 / 6020 2130 / 2130 Balance 80 / 550 380 / -750 -2600 / -4270 -1670 / -1670 Weight 279 lb 3 oz 279 lb 15.793 oz 269 lb 3 oz Microbiology Reports for the Last 24 Hours: Microbiology 10/19/20 04:30 Sputum - Expectorated Sputum Gram Stain - Final 10/19/20 04:30 Sputum - Expectorated Sputum Sputum Culture - Preliminary 10/17/20 08:22 Blood Blood Culture - Preliminary NO GROWTH AFTER 48 HOURS 10/17/20 08:22 Blood Blood Culture - Preliminary NO GROWTH AFTER 48 HOURS 10/18/20 10:32 Nose - Nasal MRSA Culture - Final - Constitutional Comments: increased work of breathing - *Routine Respiratory Exam Present: crackles. Absent: wheezes - *Routine Cardiovascular Exam Present: RRR - *Routine Extremities Exam Present: edema Assessment and Plan (1) Pneumonia due to COVID-19 virus Status: Acute Category: Medical Code(s): U07.1 - COVID-19; J12.82 - Pneumonia due to coronavirus disease 2019 (2) Pneumothorax Status: Acute Category: Medical Code(s): J93.9 - Pneumothorax, unspecified (3) Renal failure (ARF), acute on chronic Status: Acute Category: Medical Code(s): N17.9 - Acute kidney failure, unspecified; N18.9 - Chronic kidney disease, unspecified (4) Respiratory failure with hypoxia Status: Acute Qualifiers: Chronicity: acute Qualified Code(s): J96.01 - Acute respiratory failure with hypoxia Category: Medical Code(s): J96.91 - Respiratory failure, unspecified with hypoxia (5) Fluid overload Status: Acute
--- NOTE | 2020-10-20 08:13 | XR_ITS ---
PROCEDURE: XR CHEST PORTABLE Referring Doctor: Deng Mullen Patient Age:69Y CLINICAL HISTORY: PNEUMOTHORAX, PNEUMONIA COMPARISON: CR XR CHEST PORTABLE from 09/27/2020 CR XR CHEST PORTABLE from 09/30/2020 CR XR CHEST PORTABLE from 10/02/2020 CR XR CHEST PORTABLE from 10/06/2020 CR XR CHEST PORTABLE from 10/17/2020 CR XR CHEST PORTABLE from 10/17/2020 CR XR CHEST PORTABLE from 10/18/2020 CR XR CHEST PORTABLE from 10/19/2020 FINDINGS: Today's study is upright AP portable CXR-and compared 10/17/2020,, 10/18/2020 and 10/19/2020 CXR studies cardiomegaly. Likely mild vascular engorgement Diffuse bilateral pneumonia is basically unchanged but of no discrete interval change but The left chest tube remains stable position with tip extends up to the level of the 3rd rib. There does appear to be a tiny apical pneumothorax persisting. It appears perhaps very incrementally smaller than on 10/17/2020 CXR the IMPRESSION: . Left chest tube remains in place, &seems to be in satisfactory position There does appear to be a small residual left apical pneumothorax . Diffuse prominent bilateral infiltrates/pneumonia persist is, basically stable. Again the extensive dense infiltrate left mid/lower chest. Dictated by: Jean-Claude Suh MD 10/20/2020 09:53 Jean-Claude Suh MD in [place] 10/20/2020 09:53
--- NOTE | 2020-10-20 09:02 | P.PN_ITS ---
Subjective Narrative: Patient has had some minor right shoulder discomfort which has improved. Tolerating diet. Minimal abdominal soreness when moving. Overall feels better. Progress Note: A&P (1) Pneumonia due to COVID-19 virus Status: Acute (2) Pneumothorax Status: Acute (3) Renal failure (ARF), acute on chronic Status: Acute (4) Respiratory failure with hypoxia Status: Acute (5) Fluid overload Status: Acute (6) Chronic a-fib Status: Chronic (7) Edema Status: Chronic (8) CAD (coronary artery disease) Status: Chronic (9) Diabetes Status: Chronic (10) Hyperlipidemia Status: Chronic (11) Hypertensive disorder Problem details: Status: Chronic (12) Diarrhea Status: Acute Assessment and Plan for All Diagnoses:: Check labs. If reasonable likely discharge home Exam Vital signs and Labs for Last 24 Hours: Temp Pulse Resp BP Pulse Ox 97.9 F 60 20 163/83 H 91 L 10/20/20 04:00 10/20/20 08:00 10/20/20 04:00 10/20/20 04:00 10/20/20 05:15 Laboratory Results - last 24 hr 10/19/20 11:50: POC Glucose 211 H 10/19/20 16:24: POC Glucose 165 H 10/19/20 20:35: POC Glucose 143 H 10/20/20 06:00: WBC 12.6 H D, RBC 3.60 L, Hgb 10.6 L, Hct 32.3 L, MCV 89.6, MCH 29.3, MCHC 32.7, RDW 14.9, Plt Count 180 D, MPV 9.0, Neut % (Auto) 88.1 H, Lymph % (Auto) 4.9 L, [place] % (Auto) 6.3, Eos % (Auto) 0.6, Baso % (Auto) 0.1, Neut # (Auto) 11.1 H, Lymph # (Auto) 0.6 L, [place] # (Auto) 0.8, Eos # (Auto) 0.1, Baso # (Auto) 0.0, Total Counted 100, Neutrophils % (Manual) 86 H, Band Neutrophils % 3.0, Lymphocytes % (Manual) 8 L, Monocytes % (Manual) 3, Platelet Estimate Normal, RBC Morphology Normal 10/20/20 06:00: Sodium 136, Potassium 3.8, Chloride 108 H, Carbon Dioxide 12 L, Anion Gap 19.8 H, BUN 122 H*, Creatinine 3.10 H D, Estimated Creat Clear 38, Estimated GFR 20 L, Est GFR ( Amer) 24 L D, Glucose 140 H, Calcium 9.8 I & O for Last 24 hours: Intake & Output 10/17/20 10/18/20 10/19/20 10/20/20 11:59 11:59 11:59 11:59 Intake Total 1850 / 1850 1790 / 1790 920 / 920 Output Total 620 / 620 3450 / 3450 4300 / 4300 Balance 1230 / 1230 -1660 / -1660 -3380 / -3380 Weight 279 lb 3 oz 279 lb 15.793 oz 269 lb 3 oz Microbiology Reports for the Last 24 Hours: Microbiology 10/19/20 04:30 Sputum - Expectorated Sputum Gram Stain - Final 10/19/20 04:30 Sputum - Expectorated Sputum Sputum Culture - Preliminary 10/17/20 08:22 Blood Blood Culture - Preliminary NO GROWTH AFTER 48 HOURS 10/17/20 08:22 Blood Blood Culture - Preliminary NO GROWTH AFTER 48 HOURS 10/18/20 10:32 Nose - Nasal MRSA Culture - Final - *Routine Abdominal Exam Present: soft
--- NOTE | 2020-10-20 10:06 | P.PN_ITS ---
Subjective Patient reports: no new complaints Progress Note: A&P (1) Pneumonia due to COVID-19 virus Status: Acute (2) Pneumothorax Status: Acute (3) Renal failure (ARF), acute on chronic Status: Acute (4) Respiratory failure with hypoxia Status: Acute (5) Fluid overload Status: Acute (6) Chronic a-fib Status: Chronic (7) Edema Status: Chronic (8) CAD (coronary artery disease) Status: Chronic (9) Diabetes Status: Chronic (10) Hyperlipidemia Status: Chronic (11) Hypertensive disorder Problem details: Status: Chronic (12) Diarrhea Status: Acute Assessment and Plan for All Diagnoses:: Chest x-ray revealed tiny residual pneumothorax. Has been on waterseal for the past 24 hours. When placed back on suction there were several small air bubbles intermittent. Therefore, given the chest x-ray findings I will place him back on suction for now unfortunately. Hopefully chest x-ray tomorrow reveals resolution of residual pneumothorax and no air leak. Exam Vital signs and Labs for Last 24 Hours: Temp Pulse Resp BP Pulse Ox 97.6 F 84 22 189/82 H 90 L 10/20/20 08:00 10/20/20 08:00 10/20/20 08:00 10/20/20 08:00 10/20/20 08:00 Laboratory Results - last 24 hr 10/19/20 11:50: POC Glucose 211 H 10/19/20 16:24: POC Glucose 165 H 10/19/20 20:35: POC Glucose 143 H 10/20/20 06:00: WBC 12.6 H D, RBC 3.60 L, Hgb 10.6 L, Hct 32.3 L, MCV 89.6, MCH 29.3, MCHC 32.7, RDW 14.9, Plt Count 180 D, MPV 9.0, Neut % (Auto) 88.1 H, Lymph % (Auto) 4.9 L, [place] % (Auto) 6.3, Eos % (Auto) 0.6, Baso % (Auto) 0.1, Neut # (Auto) 11.1 H, Lymph # (Auto) 0.6 L, [place] # (Auto) 0.8, Eos # (Auto) 0.1, Baso # (Auto) 0.0, Total Counted 100, Neutrophils % (Manual) 86 H, Band Neut rophils % 3.0, Lymphocytes % (Manual) 8 L, Monocytes % (Manual) 3, Platelet Estimate Normal, RBC Morphology Normal 10/20/20 06:00: Sodium 136, Potassium 3.8, Chloride 108 H, Carbon Dioxide 12 L, Anion Gap 19.8 H, BUN 122 H*, Creatinine 3.10 H D, Estimated Creat Clear 38, Estimated GFR 20 L, Est GFR ( Amer) 24 L D, Glucose 140 H, Calcium 9.8 I & O for Last 24 hours: Intake & Output 10/17/20 10/18/20 10/19/20 10/20/20 11:59 11:59 11:59 11:59 Intake Total 1850 / 1850 1790 / 1790 1240 / 1240 Output Total 620 / 620 3450 / 3450 4300 / 4300 Balance 1230 / 1230 -1660 / -1660 -3060 / -3060 Weight 279 lb 3 oz 279 lb 15.793 oz 269 lb 3 oz Microbiology Reports for the Last 24 Hours: Microbiology 10/19/20 04:30 Sputum - Expectorated Sputum Gram Stain - Final 10/19/20 04:30 Sputum - Expectorated Sputum Sputum Culture - Preliminary 10/17/20 08:22 Blood Blood Culture - Preliminary NO GROWTH AFTER 48 HOURS 10/17/20 08:22 Blood Blood Culture - Preliminary NO GROWTH AFTER 48 HOURS 10/18/20 10:32 Nose - Nasal MRSA Culture - Final
--- NOTE | 2020-10-20 10:48 | HMH.ACPN ---
Internal Medicine - PN: Subj *Date: 10/20/20 *Time: 10:48 Exam Vital signs and Labs for Last 24 Hours: Temp Pulse Resp BP Pulse Ox 97.6 F 84 22 189/82 H 91 L 10/20/20 08:00 10/20/20 08:00 10/20/20 08:00 10/20/20 08:00 10/20/20 09:20 Laboratory Results - last 24 hr 10/19/20 11:50: POC Glucose 211 H 10/19/20 16:24: POC Glucose 165 H 10/19/20 20:35: POC Glucose 143 H 10/20/20 06:00: WBC 12.6 H D, RBC 3.60 L, Hgb 10.6 L, Hct 32.3 L, MCV 89.6, MCH 29.3, MCHC 32.7, RDW 14.9, Plt Count 180 D, MPV 9.0, Neut % (Auto) 88.1 H, Lymph % (Auto) 4.9 L, [place] % (Auto) 6.3, Eos % (Auto) 0.6, Baso % (Auto) 0.1, Neut # (Auto) 11.1 H, Lymph # (Auto) 0.6 L, [place] # (Auto) 0.8, Eos # (Auto) 0.1, Baso # (Auto) 0.0, Total Counted 100, Neutrophils % (Manual) 86 H, Band Neutrophils % 3.0, Lymphocytes % (Manual) 8 L, Monocytes % (Manual) 3, Platelet Estimate Normal, RBC Morphology Normal 10/20/20 06:00: Sodium 136, Potassium 3.8, Chloride 108 H, Carbon Dioxide 12 L, Anion Gap 19.8 H, BUN 122 H*, Creatinine 3.10 H D, Estimated Creat Clear 38, Estimated GFR 20 L, Est GFR ( Amer) 24 L D, Glucose 140 H, Calcium 9.8 I & O for Last 24 hours: Intake & Output 10/17/20 10/18/20 10/19/20 10/20/20 23:59 23:59 23:59 23:59 Intake Total 650 / 1130 2160 / 2750 1290 / 1750 780 / 780 Output Total 570 / 580 1780 / 3500 3890 / 6020 2130 / 2130 Balance 80 / 550 380 / -750 -2600 / -4270 -1350 / -1350 Weight 126.637 kg 127 kg 122.101 kg Microbiology Reports for the Last 24 Hours: Microbiology 10/19/20 04:30 Sputum - Expectorated Sputum Gram Stain - Final 10/19/20 04:30 Sputum - Expectorated Sputum Sputum Culture - Preliminary 10/17/20 08:22 Blood Blood Culture - Preliminary NO GROWTH AFTER 48 HOURS 10/17/20 08:22 Blood Blood Culture - Preliminary NO GROWTH AFTER 48 HOURS 10/18/20 10:32 Nose - Nasal MRSA Culture - Final Assessment and Plan (1) Pneumonia due to COVID-19 virus Status: Acute Category: Medical Code(s): U07.1 - COVID-19; J12.82 - Pneumonia due to coronavirus disease 2019 (2) Pneumothorax Status: Acute Category: Medical Code(s): J93.9 - Pneumothorax, unspecified (3) Renal failure (ARF), acute on chronic Status: Acute Category: Medical Code(s): N17.9 - Acute kidney failure, unspecified; N18.9 - Chronic kidney disease, unspecified (4) Respiratory failure with hypoxia Status: Acute Qualifiers: Chronicity: acute Qualified Code(s): J96.01 - Acute respiratory failure with hypoxia Category: Medical Code(s): J96.91 - Respiratory failure, unspecified with hypoxia (5) Fluid overload Status: Acute Qualifiers: Hypervolemia type: other Qualified Code(s): E87.79 - Other fluid overload Category: Medical Code(s): E87.70 - Fluid overload, unspecified (6) Chronic a-fib Status: Chronic Category: Medical Code(s): I48.20 - Chronic atrial fibrillation, unspecified (7) Edema Status: Chronic Qualifiers: Edema type: generalized Qualified Code(s): R60.1 - Generalized edema Category: Medical Code(s): R60.9 - Edema, unspecified (8) CAD (coronary artery disease) Status: Chronic Qualifiers: Coronary Disease-Associated Artery/Lesion type: [place] artery [place] vs. transplanted heart: [place] heart Associated angina: without angina Qualified Code(s): I25.10 - Atherosclerotic heart disease of [place] coronary artery without angina pectoris Category: Medical Code(s): I25.10 - Atherosclerotic heart disease of [place] coronary artery without angina pectoris (9) Diabetes Status: Chronic Qualifiers: Diabetes mellitus type: type 2 Diabetes mellitus snf insulin use: without snf use Diabetes mellitus complication status: without complication Qualified Code(s): E11.9 - Type 2 diabetes mellitus without complications Category: Medical Code(s): E11.9 - Type 2 diab
[2020-10-20 11:46] LABS: POC Glucose,Bedside 258 (70-110)
[2020-10-20 15:46] LABS: Vancomycin,Trough 12.4 ug/mL (5.0-10.0)
[2020-10-20 16:29] LABS: POC Glucose,Bedside 193 (70-110)
--- NOTE | 2020-10-20 17:08 | PC.NURSE ---
Pt has been pleasant and cooperative this shift. A&O X4. No complaints of pain. Pt complains of SOA with exertion, although O2 saturation remains >90%. Pt is receiving O2 via Vapotherm @ 30 LPM with sats. >90%. Lung sounds reveal expiratory rhonchi. 2+ pitting edema noted to BLE. Unstageable pressure ulcer noted to Coccyx, covered with Allevyn dressing, C/D/I. F/C is patent and draining clear, yellow urine at bedside to gravity. Pt is incontinent of bowel and has had 3 soft, brown stools thus far this shift. Pt has been turned/repositioned Q2H this shift. Pt also sat up in the recliner for several hours today. Appetite is fair and pt eats about 25-50% of each meal. FSBS results have been 258 and 193, both of which have required insulin coverage per sliding scale. 20 G peripheral IV in the RT AC is patent and SL. 20 G peripheral IV in the LT forearm is patent and SL. VSS. Call light within reach. Will continue to monitor.
[2020-10-20 21:52] LABS: POC Glucose,Bedside 142 (70-110)
[2020-10-21] VITALS (12 sets, daily range): BP systolic 96–185; BP diastolic 52–93; PULSE 52–90; RESP 19–24; TEMP 36.4–37.2; O2SAT 89–99
--- NOTE | 2020-10-21 03:42 | PC.NURSE ---
Pt has remained A&Ox4. Pt has refused q2h turns majority of the night but has remained off of bottom this entire shift. Expiratory rhonchi heard t/o all lung garcia. Active bowel sounds in all 4 quads. No BM noted this shift. No other acute changes or complaints at this time.
--- NOTE | 2020-10-21 07:20 | XR_ITS ---
PROCEDURE: XR CHEST PORTABLE CLINICAL HISTORY: PNEUMONIA, PNEUMOTHORAX COMPARISON: CT LDCTLCAS LDCT FOR LUNG CA SCREEN from 02/04/2017 CR XR CHEST PORTABLE from 10/18/2020 CR XR CHEST PORTABLE from 10/19/2020 CR XR CHEST PORTABLE from 10/20/2020 FINDINGS: 8:52 a.m. Left sided chest tube remains in place. No obvious pneumothorax. There remains pleural thickening in the left apex. Diffuse bilateral pneumonia with atelectatic changes are once again noted not significantly changed. IMPRESSION: Left-sided chest tube in place without obvious pneumothorax with persistent bilateral pneumonia and volume loss Dictated by: Gabriel Seth MD 10/21/2020 09:26 Gabriel Seth MD in [facility] 10/21/2020 09:26
--- NOTE | 2020-10-21 09:03 | HMH.PHACONS ---
- Pharmacy Consult Date: 10/21/20 Time: 09:03 Referring provider: DR. STRANGE Reason for Consult:: VANCOMYCIN TROUGH LEVEL Allergies and ADEs:: Allergies Allergy/AdvReac Type Severity Reaction Status Date / Time No Known Allergies Allergy Verified 08/30/20 13:15 Home Medications:: Home Medications Medication Instructions Recorded Confirmed Type cetirizine 10 mg tablet 10 mg PO DAILY PRN tab 05/23/18 10/17/20 History dulaglutide 0.75 mg/0.5 mL 0.75 mg SQ WEEKLY 12/02/18 10/17/20 History subcutaneous pen injector metformin 500 mg tablet 500 mg PO BIDWM 03/03/19 10/17/20 History carvedilol 3.125 mg tablet 3.125 mg PO BID tab 07/20/19 10/17/20 History furosemide 40 mg tablet 40 mg PO DAILY tab 03/01/20 10/17/20 History iron heme polypeptide 12 mg tablet 12 mg PO DAILY 03/01/20 10/17/20 History Amlodipine Besylate [Amlodipine 10 mg PO DAILY 09/30/20 10/17/20 History 10mg Tab] Atorvastatin Calcium [Lipitor 40mg 40 mg PO DAILY 09/30/20 10/17/20 History Tab] Albuterol Sulfate [Albuterol 1 - 2 puffs IH Q6HP PRN 10/01/20 10/17/20 History Sulfate Hfa] Cholecalciferol (Vitamin D3) 50,000 unit PO WEEKLY 10/01/20 10/17/20 History [Vitamin D3 50,000 unit Cap] Glimepiride [Amaryl] 2 mg PO DAILY 10/01/20 10/17/20 History Losartan Potassium [Cozaar 100mg 100 mg PO DAILY 10/01/20 10/17/20 History Tablets] Promethazine/Dextromethorphan 5 ml PO Q6H PRN 10/01/20 10/17/20 History [Promethazine-Dm Syrup] Rivaroxaban [Xarelto 15mg tablet] 15 mg PO DAILY 10/01/20 10/17/20 History Zinc Sulfate [Zinc Sulfate 220mg 220 mg PO DAILY 10/01/20 10/17/20 History capsule] Fenofibrate 160 mg PO DAILY 10/18/20 10/18/20 History Height: 1.93 m Weight: 122.101 kg Laboratory Results:: Laboratory Results - last 24 hr 10/20/20 11:11: POC Glucose 258 H 10/20/20 14:15: Vancomycin Trough 12.4 H 10/20/20 16:08: POC Glucose 193 H 10/20/20 21:36: POC Glucose 142 H Medical History: Reports:: Arrhythmia (Atrial fibrillation), Atrial Fibrillation, BPH, Coronary Artery Disease, Diabetes Mellitus Type 2, Hyperlipidemia, Hypertension, Kidney Stones, Renal Insufficiency Denies:: Cancer, Diabetes Mellitus Type 1, Internal Pacemaker, Lung Disease, MRSA, Seizures Assessment and Plan (1) Pneumonia due to COVID-19 virus Status: Acute Category: Medical Code(s): U07.1 - COVID-19; J12.82 - Pneumonia due to coronavirus disease 2019 (2) Pneumothorax Status: Acute Category: Medical Code(s): J93.9 - Pneumothorax, unspecified (3) Renal failure (ARF), acute on chronic Status: Acute Category: Medical Code(s): N17.9 - Acute kidney failure, unspecified; N18.9 - Chronic kidney disease, unspecified (4) Respiratory failure with hypoxia Status: Acute Qualifiers: Chronicity: acute Qualified Code(s): J96.01 - Acute respiratory failure with hypoxia Category: Medical Code(s): J96.91 - Respiratory failure, unspecified with hypoxia (5) Fluid overload Status: Acute Qualifiers: Hypervolemia type: other Qualified Code(s): E87.79 - Other fluid overload Category: Medical Code(s): E87.70 - Fluid overload, unspecified (6) Chronic a-fib Status: Chronic Category: Medical Code(s): I48.20 - Chronic atrial fibrillation, unspecified (7) Edema Status: Chronic Qualifiers: Edema type: generalized Qualified Code(s): R60.1 - Generalized edema Category: Medical Code(s): R60.9 - Edema, unspecified (8) CAD (coronary artery disease) Status: Chronic Qualifiers: Coronary Disease-Associated Artery/Lesion type: [place] artery [place] vs. transplanted heart: [place] heart Associated angina: without angina Qualified Code(s): I25.10 - Atherosclerotic heart disease of [place] coronary artery without angina pectoris Category: Medical Code(s): I25.10 - Atherosclerotic heart disease of [place] coronary artery without angina pectoris (9) Diabetes Status: Chronic Qual
--- NOTE | 2020-10-21 09:07 | HMH.ACPN2 ---
Internal Medicine - PN: Subj *Date: 10/21/20 *Time: 09:07 Interval history: Patient with no new complaints today, diarrhea has decreased, pain in side is a little better. Pt was able to sit up in a chair yesterday. Exam Vital signs and Labs for Last 24 Hours: Temp Pulse Resp BP Pulse Ox 99.0 F 79 24 138/66 93 L 10/21/20 04:00 10/21/20 07:58 10/21/20 07:58 10/21/20 07:58 10/21/20 07:58 Laboratory Results - last 24 hr 10/20/20 11:11: POC Glucose 258 H 10/20/20 14:15: Vancomycin Trough 12.4 H 10/20/20 16:08: POC Glucose 193 H 10/20/20 21:36: POC Glucose 142 H Vital Signs - 24 hr 10/20/20 09:20 10/20/20 12:00 10/20/20 12:50 Temperature 97.4 F L Pulse Rate 75 Pulse Rate [Apical] Pulse Rate [Right] 57 L Respiratory Rate 20 Blood Pressure [Right Arm] 127/69 02 Sat by Pulse Oximetry 91 L 95 97 10/20/20 16:00 10/20/20 18:07 10/20/20 20:00 Temperature 97.2 F L 98.4 F Pulse Rate 65 Pulse Rate [Apical] 80 Pulse Rate [Right] 76 Respiratory Rate 18 22 Blood Pressure [Right Arm] 145/74 H 146/58 H 02 Sat by Pulse Oximetry 93 L 92 L 90 L 10/20/20 23:59 10/21/20 00:00 10/21/20 04:00 Temperature 99.0 F Pulse Rate 63 Pulse Rate [Apical] 74 73 Pulse Rate [Right] Respiratory Rate 23 20 Blood Pressure [Right Arm] 163/83 H 185/93 H 02 Sat by Pulse Oximetry 91 L 92 L 10/21/20 07:42 10/21/20 07:58 Temperature Pulse Rate 52 L Pulse Rate [Apical] 79 Pulse Rate [Right] Respiratory Rate 24 Blood Pressure [Right Arm] 138/66 02 Sat by Pulse Oximetry 93 L 93 L I & O for Last 24 hours: Intake & Output 10/18/20 10/19/20 10/20/20 10/21/20 23:59 23:59 23:59 23:59 Intake Total 2160 / 2750 1290 / 1750 1370 / 1970 600 / 600 Output Total 1780 / 3500 3890 / 6020 3930 / 5750 1820 / 1820 Balance 380 / -750 -2600 / -4270 -2560 / -3780 -1220 / -1220 Weight 279 lb 15.793 oz 269 lb 3 oz Microbiology Reports for the Last 24 Hours: Microbiology 10/19/20 04:30 Sputum - Expectorated Sputum Gram Stain - Final 10/19/20 04:30 Sputum - Expectorated Sputum Sputum Culture - Preliminary - Constitutional no acute distress - *Routine Respiratory Exam Present: crackles (few bibasilar). Absent: wheezes - *Routine Cardiovascular Exam Present: RRR - *Routine Extremities Exam Present: edema (present, but has improved) Assessment and Plan (1) Pneumonia due to COVID-19 virus Status: Acute Category: Medical Code(s): U07.1 - COVID-19; J12.82 - Pneumonia due to coronavirus disease 2019 (2) Pneumothorax Status: Acute Category: Medical Code(s): J93.9 - Pneumothorax, unspecified (3) Renal failure (ARF), acute on chronic Status: Acute Category: Medical Code(s): N17.9 - Acute kidney failure, unspecified; N18.9 - Chronic kidney disease, unspecified (4) Respiratory failure with hypoxia Status: Acute Qualifiers: Chronicity: acute Qualified Code(s): J96.01 - Acute respiratory failure with hypoxia Category: Medical Code(s): J96.91 - Respiratory failure, unspecified with hypoxia (5) Fluid overload Status: Acute Qualifiers: Hypervolemia type: other Qualified Code(s): E87.79 - Other fluid overload Category: Medical Code(s): E87.70 - Fluid overload, unspecified (6) Chronic a-fib Status: Chronic Category: Medical Code(s): I48.20 - Chronic atrial fibrillation, unspecified (7) Edema Status: Chronic Qualifiers: Edema type: generalized Qualified Code(s): R60.1 - Generalized edema Category: Medical Code(s): R60.9 - Edema, unspecified (8) CAD (coronary artery disease) Status: Chronic Qualifiers: Coronary Disease-Associated Artery/Lesion type: [place] artery [place] vs. transplanted heart: [place] heart Associated angina: without angina Qualified Code(s): I25.10 - Atherosclerotic heart disease of [place] coronary artery without angina pectoris Category: Medical Code(s): I2
--- NOTE | 2020-10-21 10:06 | HMH.PULMPN ---
Internal Medicine - PN: Subj *Date: 10/21/20 *Time: 10:06 Interval history: No acute respiratory events overnight Exam - Constitutional Constitutional:: Present: no acute distress, comfortable - HENMT Exam HENMT: Present: normocephalic - Eye Exam Eyes:: Present: eyelids normal - Neck Exam Neck:: Present: no lymphadenopathy - Respiratory Exam Respiratory:: Present: able to speak in complete sentences, no respiratory distress, normal respiratory effort, crackles. Absent: wheezing - Cardiovascular Exam Cardiac:: Present: S1, S2 - GI Exam GI:: Present: soft, obese - Skin Exam Skin: Present: warm, no rash - Neurological Exam Neurological: Present: alert, awake, normal cognition - Extremities Exam Extremities: Present: no cyanosis, no clubbing, no edema Assessment and Plan (1) Pneumonia due to COVID-19 virus Status: Acute Category: Medical Code(s): U07.1 - COVID-19; J12.82 - Pneumonia due to coronavirus disease 2019 (2) Pneumothorax Status: Acute Category: Medical Code(s): J93.9 - Pneumothorax, unspecified (3) Renal failure (ARF), acute on chronic Status: Acute Category: Medical Code(s): N17.9 - Acute kidney failure, unspecified; N18.9 - Chronic kidney disease, unspecified (4) Respiratory failure with hypoxia Status: Acute Qualifiers: Chronicity: acute Qualified Code(s): J96.01 - Acute respiratory failure with hypoxia Category: Medical Code(s): J96.91 - Respiratory failure, unspecified with hypoxia (5) Fluid overload Status: Acute Qualifiers: Hypervolemia type: other Qualified Code(s): E87.79 - Other fluid overload Category: Medical Code(s): E87.70 - Fluid overload, unspecified (6) Chronic a-fib Status: Chronic Category: Medical Code(s): I48.20 - Chronic atrial fibrillation, unspecified (7) Edema Status: Chronic Qualifiers: Edema type: generalized Qualified Code(s): R60.1 - Generalized edema Category: Medical Code(s): R60.9 - Edema, unspecified (8) CAD (coronary artery disease) Status: Chronic Qualifiers: Coronary Disease-Associated Artery/Lesion type: [place] artery [place] vs. transplanted heart: [place] heart Associated angina: without angina Qualified Code(s): I25.10 - Atherosclerotic heart disease of [place] coronary artery without angina pectoris Category: Medical Code(s): I25.10 - Atherosclerotic heart disease of [place] coronary artery without angina pectoris (9) Diabetes Status: Chronic Qualifiers: Diabetes mellitus type: type 2 Diabetes mellitus intermission coordinator insulin use: without intermission coordinator use Diabetes mellitus complication status: without complication Qualified Code(s): E11.9 - Type 2 diabetes mellitus without complications Category: Medical Code(s): E11.9 - Type 2 diabetes mellitus without complications (10) Hyperlipidemia Status: Chronic Qualifiers: Hyperlipidemia type: other hyperlipidemia Qualified Code(s): E78.49 - Other hyperlipidemia Category: Medical Code(s): E78.5 - Hyperlipidemia, unspecified (11) Hypertensive disorder Problem details: Status: Chronic Qualifiers: Hypertension type: essential hypertension Qualified Code(s): I10 - Essential (primary) hypertension Category: Medical Code(s): I10 - Essential (primary) hypertension (12) Diarrhea Status: Acute Category: Medical Code(s): R19.7 - Diarrhea, unspecified - Assessment and plan all Dx Assessment and Plan for all problems:: #COVID-19 pneumonia: #Acute on Chronic hypoxic respiratory failure: #Left Pneumothorax s/p chest tube placement: 69-year-old previous smoker around 3 to 4 packs a day last smoked in 2017, recent diagnosis of COVID-19 pneumonia admitted to the hospital for almost 10 days requiring Ventimask and eventually discharged home on 4 L nasal cannula during which he received remdesivir and dexamethasone along with cefdinir and azithromycin with negative blood
[2020-10-21 12:28] LABS: POC Glucose,Bedside 215 (70-110)
--- NOTE | 2020-10-21 12:37 | HMH.GSPN ---
Subjective Patient reports: no new complaints Progress Note: A&P (1) Pneumonia due to COVID-19 virus Status: Acute (2) Pneumothorax Status: Acute Assessment and plan: Chest x-ray today revealed no evidence of a pneumothorax. There does not appear to be an air leak. Placed back on waterseal. (3) Renal failure (ARF), acute on chronic Status: Acute (4) Respiratory failure with hypoxia Status: Acute (5) Fluid overload Status: Acute (6) Chronic a-fib Status: Chronic (7) Edema Status: Chronic (8) CAD (coronary artery disease) Status: Chronic (9) Diabetes Status: Chronic (10) Hyperlipidemia Status: Chronic (11) Hypertensive disorder Problem details: Status: Chronic (12) Diarrhea Status: Acute Exam Vital signs and Labs for Last 24 Hours: Temp Pulse Resp BP Pulse Ox 99.0 F 79 24 138/66 93 L 10/21/20 04:00 10/21/20 07:58 10/21/20 07:58 10/21/20 07:58 10/21/20 07:58 Laboratory Results - last 24 hr 10/20/20 14:15: Vancomycin Trough 12.4 H 10/20/20 16:08: POC Glucose 193 H 10/20/20 21:36: POC Glucose 142 H 10/21/20 12:21: POC Glucose 215 H I & O for Last 24 hours: Intake & Output 10/19/20 10/20/20 10/21/20 10/22/20 11:59 11:59 11:59 11:59 Intake Total 1790 / 1790 1240 / 1240 1190 / 1190 Output Total 3450 / 3450 4300 / 4300 3620 / 3620 Balance -1660 / -1660 -3060 / -3060 -2430 / -2430 Weight 279 lb 15.793 oz 269 lb 3 oz Microbiology Reports for the Last 24 Hours: Microbiology 10/19/20 04:30 Sputum - Expectorated Sputum Gram Stain - Final 10/19/20 04:30 Sputum - Expectorated Sputum Sputum Culture - Final Normal Respiratory Ilana
--- NOTE | 2020-10-21 14:30 | XR_ITS ---
PROCEDURE: XR CHEST PORTABLE CLINICAL HISTORY: SOA Increasing shortness of breath COMPARISON: CR XR CHEST PORTABLE from 10/19/2020 CR XR CHEST PORTABLE from 10/20/2020 CR XR CHEST PORTABLE from 10/21/2020 FINDINGS: Cardiomegaly with bilateral pneumonia which appears slightly improved on the right and unchanged on the left.. Left-sided chest tube remains in place. No evidence of pneumothorax. There is mild gaseous distention of the colon noted. No acute bony abnormalities. IMPRESSION: Diffuse bilateral pneumonia which appears slightly improved on the right and unchanged on the left. Left chest tube remains in place with no evidence of pneumothorax Dictated by: Gabriel Seth MD 10/21/2020 16:33 Gabriel Seth MD in [facility] 10/21/2020 16:33
[2020-10-21 14:34] LABS: ABG Base Excess -12.6 mmol/L (-2.4-2.3); ABG HCO3 13.2 mmhg (22.0-26.0); ABG Oxygen Saturation 93 % (90-100); ABG PCO2 25.2 mmhg (35.0-45.0); ABG PH 7.34 mmol/L (7.35-7.45)
[2020-10-21 15:02] LABS: Oxygen 100% %
--- NOTE | 2020-10-21 16:52 | DIET.NUTRFU ---
Addendum entered by Terra Whitney 10/23/20 13:15: PO intakes 0-25%, refusing most meals. States he just does not feel well enough to eat. BG avg 180. Continued fluid overload and worsening renal function..diet liberalization contraindicated. Supplements increased to TID, varied selection. Continued efforts encouragement/cueing and snack/supplement/replacement meal offers appreciated. Original Note: PO intakes 35%, refusing meals at times. 2-3+ pitting edema to BLE, BG avg. 175, Creatinine and GFR slightly improved, BUN worsened. Diarrhea has decreased but continues. Limited weight documentation available, unable to determine fluctuation at this time. Pt is on a low sodium/diabetic diet, liberalization not indicated at this time. BID supplements of pt preference added to diet order. Continuing to monitor.
[2020-10-21 17:30] LABS: POC Glucose,Bedside 265 (70-110)
[2020-10-21 20:10] LABS: POC Glucose,Bedside 267 (70-110)
--- NOTE | 2020-10-21 20:34 | PC.NURSE ---
PATIENT IS A&O X4, LUNGS: RHONCHI HEARD, PULSES ARE EQUAL. PITTING EDEMA NOTED ON BLE. SOON AFTER PATIENT WAS TAKEN OFF WALL SUCTION FOR HIS CHEST TUBE PATIENT WORK OF BREATHING INCREASED. PATIENT BEGAN STATING THAT HE WAS HAVING A HARD TIME BREATHING. THIS RN PHONED DR. AMAN MD ORDERED 2MG MORPHINE IV, ABG, AND CHEST XRAY STAT. THIS RN ADMINISTERED MORPHINE AND PATIENT REPORTED THAT HE WAS FEELING BETTER. PATIENT RESTED, PATIENT CALLED THIS RN FOR ASSISTANCE. PATIENT STATED THAT HE FELT LIKE HIS BELLY WAS BURNING AND HIS MOUTH TASTED LIKE IT HAD SHIT IN HIS MOUTH. THIS RN PHONED DR. STRANGE, REPORTED PREVIOUS FINDINGS, MD ORDERED ZOFRAN, MAALOX AND FAMOTIDINE. SHORTLY AFTER ADMINISTRATION PATIENT HAD COFFEE GROUND EMESIS. THIS RN PHONED DR. STRANGE, ORDER RECEIVED TO ADMINISTER FAMOTIDINE 20MG IV. THIS RN ADMINISTERED MEDICATION. PATIENT HAD BEEN EDUCATED ON SEVERAL OCCASIONS THE IMPORTANCE OF LYING ON HIS SIDE SITTING UP. PATIENT STATED I DON'T GIVE A SHIT ABOUT MY LUNGS, I CAN BREATHE BETTER LYING FLAT. PATIENT REQUESTED TO SIT UP IN CHAIR. THIS RN ALONG WITH ROSSANA HAGEN ASSISTED PATIENT UP TO CHAIR. NO OTHER CONCERNS AT THIS TIME.
--- NOTE | 2020-10-21 20:54 | PC.NURSE ---
He continues in contact and airborne precautions. Upon shift change he was noted to be sitting up in the chair leaning over his bedside time. Offered to assist him to bed where the bed could be moved to where he was able to be in a sitting position and could put bedside table in front of him. He refused. Educated him that web content writer was afraid that bedside table would roll in current position and he would fall and possibly hit his head. He verbalized understanding but still refused. He would not answer many questions during his assessment stating he was just tired. He currently on the vapotherm at 30LPM 70%FiO2. He denies SOA. Chest tube is present in his left side with 20cm of suction. His lung sounds are clear except for faint wheezing in bases. He is voiding per f/c. Urine is yellow, clear with sediment.
--- NOTE | 2020-10-21 20:56 | PC.NURSE ---
THIS RN ADMINISTERED 20MG IV FAMOTIDINE PER DR. STRANGE. ORDER HAS BEEN FAXED TO [facility]. THIS RN PHONED AND SPOKE TO [facility]CHIT[facility]. PER PHARMACIST, ORDER HAS NOT COME THRU. UP TO THIS POINT, THIS RN HAS BEEN UNABLE TO DOCUMENT MEDICATION ADMINISTRATION ON NOV. THIS RN REPORTED INFORMATION TO S.CALL RN.
[2020-10-22] VITALS (28 sets, daily range): BP systolic 93–156; BP diastolic 45–105; PULSE 70–101; RESP 14–20; TEMP 35.7–36.8; O2SAT 87–98
[2020-10-22 04:45] LABS: POC Glucose,Bedside 201 (70-110)
[2020-10-22 06:41] LABS: Chloride 105 mmol/L (98-107); Sodium 132 mmol/L (136-145)
[2020-10-22 06:44] LABS: Carbon Dioxide 14 mmol/L (22.0-30.0)
[2020-10-22 06:45] LABS: Glucose 185 mg/dl (74-100)
[2020-10-22 06:49] LABS: Basophils % 0.2 % (0.1-2.0); Eosinophils # 0.1 K/mm3 (0.0-0.4); Eosinophils % 0.5 % (0.1-12.0); Hematocrit 24.5 % (42.0-52.0); Lymphocytes % 7.1 % (10-50); Mean Corpuscular HGB Conc 31.5 g/dL (31.8-35.4); Mean Corpuscular Hemoglobin 28.9 pg (27.0-31.2); Mean Corpuscular Volume 91.9 fl (80-94); Mean Platelet Volume 10.4 fl (7.4-10.4); Monocytes # 0.8 K/mm3 (0.1-1.0); Monocytes % 5.5 % (1.7-9.3); Neutrophils # 12.3 K/mm3 (1.8-7.8); Neutrophils % 86.7 % (37.0-80.0); Platelet Count 184 K/mm3 (142-424); Red Blood Count 2.66 M/mm3 (4.60-6.20); Red Cell Distribution Width 15.1 % (11.5-17.5); White Blood Count 14.2 K/mm3 (4.8-10.8)
[2020-10-22 06:51] LABS: Creatinine Clearance Estimated 28 mL/min (50-200); Estimated Glomerular Filt Rate 14 ml/min (>60); GFR (African American) 17 ML/MIN (>60)
[2020-10-22 07:08] LABS: Hemoglobin 7.7 g/dL (14.1-18.0)
[2020-10-22 07:09] LABS: Blood Urea Nitrogen 152 mg/dl (9-20)
[2020-10-22 07:10] LABS: MANUAL DIFFERENTIAL MANUAL DIFFERENTIAL (MANUAL DIFF)
[2020-10-22 07:39] LABS: Lymphocytes % 15 % (10-50); Monocytes % 3 % (2-9); Neutrophils % 82 % (42-76); Platelet Estimate Normal; RBC Morphology Normal; Total Cells Counted 100
--- NOTE | 2020-10-22 09:13 | HMH.ACPN2 ---
Internal Medicine - PN: Subj *Date: 10/22/20 *Time: 09:13 Interval history: Patient had some upper abd pain yesterday, was started on Pepcid. Pulmonary wants to keep chest tube in while patient is on high flow supplemental oxygen Exam Vital signs and Labs for Last 24 Hours: Temp Pulse Resp BP Pulse Ox 97.4 F L 80 17 93/49 L 96 10/22/20 03:04 10/22/20 08:00 10/22/20 03:04 10/22/20 03:04 10/22/20 06:15 Laboratory Results - last 24 hr 10/18/20 13:00: Stl Aeromonas (PCR) Not detected, Stl C. cayetanensis PCR Not detected, Stool Rotavirus (PCR) Not detected, Stl Adenov F 40/41 PCR Not detected, Stool Astrovirus (PCR) Not detected, Stool Campylobacter PCR Not detected, Stl C.difficile Tox PCR Not detected, Stool Cryptosporidium PCR Not detected, Stl E.coli Shiga Tox PCR Not detected, Stool E coli O157 PCR Not detected, Stl Enterotoxigenic E PCR Not detected, Stool EPEC (PCR) Not detected, Stool EAEC (PCR) Not detected, Stl E. histolytica PCR Not detected, Stool Giardia Lamblia PCR Not detected, Stool Salmonella PCR Not detected, Stool Sapovirus (PCR) Not detected, Stl P. shigelloides PCR Not detected, Stl Shigella/EIEC PCR Not detected, St Y.enterocolitica PCR Not detected, Stool Vibrio (PCR) Not detected, Stl Vibrio cholerae PCR Not detected, Stl Norovirus GI/GII PCR Not detected 10/21/20 12:21: POC Glucose 215 H 10/21/20 14:29: O2 % 100%, ABG pH 7.34 L, ABG pCO2 25.2 L, ABG pO2 71.0 L, ABG HCO3 13.2 L, ABG Total CO2 14.0 L, ABG O2 Saturation 93, ABG Base Excess -12.6 L, Tidal Volume Vapo 40l 10/21/20 16:34: POC Glucose 265 H 10/21/20 19:44: POC Glucose 267 H 10/22/20 04:20: POC Glucose 201 H 10/22/20 05:15: Sodium 132 L, Potassium 4.0, Chloride 105, Carbon Dioxide 14 L, Anion Gap 17.0 H, BUN 152 H*, Creatinine 4.20 H D, Estimated Creat Clear 28, Estimated GFR 14 L*, Est GFR ( Amer) 17 L* D, Glucose 185 H, Calcium 9.0 10/22/20 05:15: WBC 14.2 H, RBC 2.66 L D, Hgb 7.7 L*, Hct 24.5 L, MCV 91.9, MCH 28.9, MCHC 31.5 L, RDW 15.1, Plt Count 184, MPV 10.4, Neut % (Auto) 86.7 H, Lymph % (Auto) 7.1 L, Craig % (Auto) 5.5, Eos % (Auto) 0.5, Baso % (Auto) 0.2, Neut # (Auto) 12.3 H, Lymph # (Auto) 1.0, Craig # (Auto) 0.8, Eos # (Auto) 0.1, Baso # (Auto) 0.0, Total Counted 100, Neutrophils % (Manual) 82 H, Lymphocytes % (Manual) 15, Monocytes % (Manual) 3, Platelet Estimate Normal, RBC Morphology Normal Vital Signs - 24 hr 10/21/20 11:50 10/21/20 15:33 10/21/20 18:55 Temperature Pulse Rate 80 87 Pulse Rate [Apical] Respiratory Rate Blood Pressure [Right Arm] 02 Sat by Pulse Oximetry 94 L 97 10/21/20 20:00 10/21/20 20:18 10/21/20 22:45 Temperature 98.4 F Pulse Rate 78 Pulse Rate [Apical] 69 Respiratory Rate 19 Blood Pressure [Right Arm] 96/52 L 02 Sat by Pulse Oximetry 99 95 89 L 10/21/20 23:43 10/22/20 01:52 10/22/20 03:04 Temperature 97.6 F 97.4 F L Pulse Rate Pulse Rate [Apical] 88 80 Respiratory Rate 17 Blood Pressure [Right Arm] 104/52 L 93/49 L 02 Sat by Pulse Oximetry 91 L 98 95 10/22/20 05:31 10/22/20 06:15 10/22/20 08:00 Temperature Pulse Rate 89 80 Pulse Rate [Apical] Respiratory Rate Blood Pressure [Right Arm] 02 Sat by Pulse Oximetry 95 96 I & O for Last 24 hours: Intake & Output 10/19/20 10/20/20 10/21/20 10/22/20 23:59 23:59 23:59 23:59 Intake Total 1290 / 1750 1370 / 1970 1280 / 1280 350 / 350 Output Total 3890 / 6020 3930 / 5750 3420 / 3420 Balance -2600 / -4270 -2560 / -3780 -2140 / -2140 350 / 350 Weight 269 lb 3 oz Microbiology Reports for the Last 24 Hours: Microbiology 10/19/20 04:30 Sputum - Expectorated Sputum Gram Stain - Final 10/19/20 04:30 Sputum - Expectorated Sputum Sputum Culture - Final Normal Respiratory Ilana - Constitutional Comments: Sitting in a chair, NAD - *Routine Respiratory Exam Present: crackles (bibasilar) - *Routine Cardiovascular Exam Present: RRR
--- NOTE | 2020-10-22 11:06 | HMH.PULMPN ---
Internal Medicine - PN: Subj *Date: 10/22/20 *Time: 11:06 Interval history: No acute respiratory events overnight Exam - Constitutional Constitutional:: Present: no acute distress, comfortable - HENMT Exam HENMT: Present: normocephalic, atraumatic - Eye Exam Eyes:: Present: eyelids normal - Neck Exam Neck:: Present: thyroid normal - Respiratory Exam Comments: Patient appeared to be in mild respiratory distress unchanged from yesterday. Bilateral coarse breath sounds. - Cardiovascular Exam Cardiac:: Present: S1, S2 - GI Exam GI:: Present: soft, no hepatosplenomegaly - Skin Exam Skin: Present: warm, no rash - Neurological Exam Neurological: Present: alert, awake, normal cognition - Extremities Exam Extremities: Present: no cyanosis, no clubbing, edema Assessment and Plan (1) Pneumonia due to COVID-19 virus Status: Acute Category: Medical Code(s): U07.1 - COVID-19; J12.82 - Pneumonia due to coronavirus disease 2019 (2) Pneumothorax Status: Acute Category: Medical Code(s): J93.9 - Pneumothorax, unspecified (3) Renal failure (ARF), acute on chronic Status: Acute Category: Medical Code(s): N17.9 - Acute kidney failure, unspecified; N18.9 - Chronic kidney disease, unspecified (4) Respiratory failure with hypoxia Status: Acute Qualifiers: Chronicity: acute Qualified Code(s): J96.01 - Acute respiratory failure with hypoxia Category: Medical Code(s): J96.91 - Respiratory failure, unspecified with hypoxia (5) Fluid overload Status: Acute Qualifiers: Hypervolemia type: other Qualified Code(s): E87.79 - Other fluid overload Category: Medical Code(s): E87.70 - Fluid overload, unspecified (6) Chronic a-fib Status: Chronic Category: Medical Code(s): I48.20 - Chronic atrial fibrillation, unspecified (7) Edema Status: Chronic Qualifiers: Edema type: generalized Qualified Code(s): R60.1 - Generalized edema Category: Medical Code(s): R60.9 - Edema, unspecified (8) CAD (coronary artery disease) Status: Chronic Qualifiers: Coronary Disease-Associated Artery/Lesion type: [place] artery [place] vs. transplanted heart: [place] heart Associated angina: without angina Qualified Code(s): I25.10 - Atherosclerotic heart disease of [place] coronary artery without angina pectoris Category: Medical Code(s): I25.10 - Atherosclerotic heart disease of [place] coronary artery without angina pectoris (9) Diabetes Status: Chronic Qualifiers: Diabetes mellitus type: type 2 Diabetes mellitus residential insulin use: without residential use Diabetes mellitus complication status: without complication Qualified Code(s): E11.9 - Type 2 diabetes mellitus without complications Category: Medical Code(s): E11.9 - Type 2 diabetes mellitus without complications (10) Hyperlipidemia Status: Chronic Qualifiers: Hyperlipidemia type: other hyperlipidemia Qualified Code(s): E78.49 - Other hyperlipidemia Category: Medical Code(s): E78.5 - Hyperlipidemia, unspecified (11) Hypertensive disorder Problem details: Status: Chronic Qualifiers: Hypertension type: essential hypertension Qualified Code(s): I10 - Essential (primary) hypertension Category: Medical Code(s): I10 - Essential (primary) hypertension (12) Diarrhea Status: Acute Category: Medical Code(s): R19.7 - Diarrhea, unspecified (13) Anemia Status: Acute Category: Medical Code(s): D64.9 - Anemia, unspecified - Assessment and plan all Dx Assessment and Plan for all problems:: #COVID-19 pneumonia: #Acute on Chronic hypoxic respiratory failure: #Left Pneumothorax s/p chest tube placement: 69-year-old previous smoker around 3 to 4 packs a day last smoked in 2017, recent diagnosis of COVID-19 pneumonia admitted to the hospital for almost 10 days requiring Ventimask and eventually discharged home on 4 L nasal cannula during which h
[2020-10-22 11:37] LABS: POC Glucose,Bedside 219 (70-110)
[2020-10-22 16:42] LABS: POC Glucose,Bedside 189 (70-110)
--- NOTE | 2020-10-22 18:37 | PC.NURSE ---
Pt is alert and oriented x4. Lungs with faint crackles. He remains on vapotherm 30L 40% fio2 with O2 sats in the upper 80's to upper 90's. He has been up to the chair all shift. Appetite is poor with him refusing most of his meals. He has received 2 units of PRBC's today and tolerated well. Pt states that he is feeling a little bit better . He had a partial bath and gown change today. +2 edema noted to BLE. Chest tube remains at 20 cm of suction. No measurable drainage noted today. Archibald is draining to gravity with approx 450 mls out this shift. Urine is yellow with sediment. Per Dr Sun post HH to be done w/morning labs. Pt is currently resting in his chair with his eyes closed.
[2020-10-22 21:01] LABS: POC Glucose,Bedside 197 (70-110)
--- NOTE | 2020-10-22 21:17 | PC.NURSE ---
Pt A&O x3. Up to chair. Pt encouraged to go to bed to rest. Pt refused. Medications administered per nov. FSBS 197. VSS. BP 106/89, HR 75, T 96.2, 97% on Vapotherm 30L 70%. IVs assessed and intact. #20 LAC SL, #20 (R) ankle SL. Pt is Afib with PVC's on telemetry. No other concerns. Will continue to monitor.
[2020-10-23] VITALS (13 sets, daily range): BP systolic 91–128; BP diastolic 51–66; PULSE 67–89; RESP 14–20; TEMP 35.9–36.6; O2SAT 90–95; BMI 33.6
--- NOTE | 2020-10-23 02:33 | PC.NURSE ---
Pt called out shortly after 2300 and requested to have a sheet or pillow placed under bottom. Pt was encouraged to go to bed for better repositioning and comfort. Pt complied. Pt was also given a bath. Buttocks was noted to have stGE 2 to both sides of buttocks. DSG was applied. Pt was encouraged to lay on his side. Pt was repositioned on (R) lateral side. Chest tube remains at 20 cm of suction. No drainage noted. Dsg intact. No concerns at this time. Lungs are diminished. Remains on 30 L 70% Vapotherm. VSS. Will continue to monitor.
[2020-10-23 05:24] LABS: POC Glucose,Bedside 145 (70-110)
[2020-10-23 06:39] LABS: Basophils % 0.1 % (0.1-2.0); Eosinophils # 0.1 K/mm3 (0.0-0.4); Hematocrit 26.9 % (42.0-52.0); Lymphocytes % 7.1 % (10-50); Mean Corpuscular HGB Conc 32.7 g/dL (31.8-35.4); Mean Corpuscular Hemoglobin 28.9 pg (27.0-31.2); Mean Corpuscular Volume 88.5 fl (80-94); Mean Platelet Volume 9.9 fl (7.4-10.4); Monocytes % 7.5 % (1.7-9.3); Neutrophils # 11.6 K/mm3 (1.8-7.8); Neutrophils % 84.2 % (37.0-80.0); Platelet Count 192 K/mm3 (142-424); Red Blood Count 3.04 M/mm3 (4.60-6.20); Red Cell Distribution Width 15.2 % (11.5-17.5); White Blood Count 13.7 K/mm3 (4.8-10.8)
[2020-10-23 06:44] LABS: Chloride 104 mmol/L (98-107); Hemoglobin 8.8 g/dL (14.1-18.0); Sodium 131 mmol/L (136-145)
[2020-10-23 06:47] LABS: Calcium 9.1 mg/dl (8.4-10.2); Carbon Dioxide 12 mmol/L (22.0-30.0); Glucose 128 mg/dl (74-100)
[2020-10-23 06:58] LABS: Creatinine Clearance Estimated 26 mL/min (50-200); Estimated Glomerular Filt Rate 12 ml/min (>60); GFR (African American) 15 ML/MIN (>60)
[2020-10-23 07:06] LABS: Blood Urea Nitrogen 175 mg/dl (9-20)
--- NOTE | 2020-10-23 07:20 | PC.NURSE ---
MD Sun notified of BUN 175, Creatinine 4.7 and H&H 8.8, 26.9. Total urine output was 425 cc for shift.
--- NOTE | 2020-10-23 08:26 | P.PN_ITS ---
Subjective Narrative: The patient has developed need for increased respiratory support over the last 48 hours. His chest tube was placed back to suction by the pulmonary service. Over the past 12 to 24 hours his respiratory status has not improved. Progress Note: A&P (1) Pneumonia due to COVID-19 virus Status: Acute (2) Pneumothorax Status: Acute Assessment and plan: No evidence of pneumothorax on chest x-ray from Wednesday, October 21. No evidence of air leak on his chest tube which is now back to suction. A chest x-ray has been ordered for tomorrow morning and if no evidence of pneumothorax is evident his chest tube will likely be placed back to waterseal. As the patient's respiratory status has not improved, removal of his chest tube is unwarranted at this time. (3) Renal failure (ARF), acute on chronic Status: Acute (4) Respiratory failure with hypoxia Status: Acute (5) Fluid overload Status: Acute (6) Chronic a-fib Status: Chronic (7) Edema Status: Chronic (8) CAD (coronary artery disease) Status: Chronic (9) Diabetes Status: Chronic (10) Hyperlipidemia Status: Chronic (11) Hypertensive disorder Problem details: Status: Chronic (12) Diarrhea Status: Acute (13) Anemia Status: Acute Exam Vital signs and Labs for Last 24 Hours: Temp Pulse Resp BP Pulse Ox 96.7 F L 69 20 97/64 L 92 L 10/23/20 04:00 10/23/20 06:45 10/23/20 04:00 10/23/20 04:00 10/23/20 06:45 Laboratory Results - last 24 hr 10/22/20 10:14: Blood Type O Positive, Antibody Screen Negative, Crossmatch (AHG) See Detail 10/22/20 11:29: POC Glucose 219 H 10/22/20 16:24: POC Glucose 189 H 10/22/20 20:49: POC Glucose 197 H 10/23/20 05:04: POC Glucose 145 H 10/23/20 05:15: WBC 13.7 H, RBC 3.04 L, Hgb 8.8 L D, Hct 26.9 L, MCV 88.5, MCH 28.9, MCHC 32.7, RDW 15.2, Plt Count 192, MPV 9.9, Neut % (Auto) 84.2 H, Lymph % (Auto) 7.1 L, Wh[place] % (Auto) 7.5, Eos % (Auto) 1.0, Baso % (Auto) 0.1, Neut # (Auto) 11.6 H, Lymph # (Auto) 1.0, [place] # (Auto) 1.0, Eos # (Auto) 0.1, Baso # (Auto) 0.0 10/23/20 05:15: Sodium 131 L, Potassium 4.0, Chloride 104, Carbon Dioxide 12 L, Anion Gap 19.0 H, BUN 175 H*, Creatinine 4.70 H, Estimated Creat Clear 26, Estimated GFR 12 L*, Est GFR ( Amer) 15 L*, Glucose 128 H D, Calcium 9.1 I & O for Last 24 hours: Intake & Output 10/20/20 10/21/20 10/22/20 10/23/20 11:59 11:59 11:59 11:59 Intake Total 1240 / 1240 1190 / 1190 1210 / 1210 1071 / 1071 Output Total 4300 / 4300 4220 / 4220 1000 / 1000 875 / 875 Balance -3060 / -3060 -3030 / -3030 210 / 210 196 / 196 Weight 269 lb 3 oz 276 lb 8 oz Microbiology Reports for the Last 24 Hours: Microbiology 10/17/20 08:22 Blood Blood Culture - Final NO GROWTH AFTER 5 DAYS 10/17/20 08:22 Blood Blood Culture - Final NO GROWTH AFTER 5 DAYS - Constitutional Comments: Unchanged - *Routine Respiratory Exam Comments: Respiratory status not improved. Per nursing, his chest tube remains to suction with no evidence of air leak. - *Routine Cardiovascular Exam Comments: Regular rate
--- NOTE | 2020-10-23 08:51 | XR_ITS ---
PROCEDURE: XR CHEST PORTABLE PICC PLAC CLINICAL HISTORY: PICC line placement COMPARISON: CR XR CHEST PORTABLE from 10/20/2020 CR XR CHEST PORTABLE from 10/21/2020 CR XR CHEST PORTABLE from 10/21/2020 FINDINGS: Left upper extremity PICC line has been inserted. The tip is in good position in the region of the superior vena cava. Bilateral mid and lower lung consolidation once again noted greatest in the midlung zone overall not significantly changed. Left-sided chest tube remains in place. No evidence of pneumothorax. IMPRESSION: PICC line tip in the region the SVC. Dictated by: Gabriel Seth MD 10/23/2020 12:05 Gabriel Seth MD in [facility] 10/23/2020 12:05
--- NOTE | 2020-10-23 09:28 | HMH.PULMPN ---
Internal Medicine - PN: Subj *Date: 10/23/20 *Time: 10:39 Interval history: No acute respiratory vents overnight. Exam - Constitutional Constitutional:: Present: no acute distress, comfortable - HENMT Exam HENMT: Present: normocephalic, atraumatic - Neck Exam Neck:: Present: normal visual inspection - Respiratory Exam Respiratory:: Present: able to speak in complete sentences, normal breath sounds, normal respiratory effort, respiratory distress - Cardiovascular Exam Cardiac:: Present: S1, S2 - GI Exam GI:: Present: soft - Skin Exam Skin: Present: warm, no rash - Neurological Exam Neurological: Present: alert, awake, normal cognition - Extremities Exam Extremities: Present: no cyanosis, no clubbing, edema Assessment and Plan (1) Pneumonia due to COVID-19 virus Status: Acute Category: Medical Code(s): U07.1 - COVID-19; J12.82 - Pneumonia due to coronavirus disease 2019 (2) Pneumothorax Status: Acute Category: Medical Code(s): J93.9 - Pneumothorax, unspecified (3) Renal failure (ARF), acute on chronic Status: Acute Category: Medical Code(s): N17.9 - Acute kidney failure, unspecified; N18.9 - Chronic kidney disease, unspecified (4) Respiratory failure with hypoxia Status: Acute Qualifiers: Chronicity: acute Qualified Code(s): J96.01 - Acute respiratory failure with hypoxia Category: Medical Code(s): J96.91 - Respiratory failure, unspecified with hypoxia (5) Fluid overload Status: Acute Qualifiers: Hypervolemia type: other Qualified Code(s): E87.79 - Other fluid overload Category: Medical Code(s): E87.70 - Fluid overload, unspecified (6) Chronic a-fib Status: Chronic Category: Medical Code(s): I48.20 - Chronic atrial fibrillation, unspecified (7) Edema Status: Chronic Qualifiers: Edema type: generalized Qualified Code(s): R60.1 - Generalized edema Category: Medical Code(s): R60.9 - Edema, unspecified (8) CAD (coronary artery disease) Status: Chronic Qualifiers: Coronary Disease-Associated Artery/Lesion type: [place] artery [place] vs. transplanted heart: [place] heart Associated angina: without angina Qualified Code(s): I25.10 - Atherosclerotic heart disease of [place] coronary artery without angina pectoris Category: Medical Code(s): I25.10 - Atherosclerotic heart disease of [place] coronary artery without angina pectoris (9) Diabetes Status: Chronic Qualifiers: Diabetes mellitus type: type 2 Diabetes mellitus rodent exterminator insulin use: without rodent exterminator use Diabetes mellitus complication status: without complication Qualified Code(s): E11.9 - Type 2 diabetes mellitus without complications Category: Medical Code(s): E11.9 - Type 2 diabetes mellitus without complications (10) Hyperlipidemia Status: Chronic Qualifiers: Hyperlipidemia type: other hyperlipidemia Qualified Code(s): E78.49 - Other hyperlipidemia Category: Medical Code(s): E78.5 - Hyperlipidemia, unspecified (11) Hypertensive disorder Problem details: Status: Chronic Qualifiers: Hypertension type: essential hypertension Qualified Code(s): I10 - Essential (primary) hypertension Category: Medical Code(s): I10 - Essential (primary) hypertension (12) Diarrhea Status: Acute Category: Medical Code(s): R19.7 - Diarrhea, unspecified (13) Anemia Status: Acute Category: Medical Code(s): D64.9 - Anemia, unspecified - Assessment and plan all Dx Assessment and Plan for all problems:: #COVID-19 pneumonia: #Acute on Chronic hypoxic respiratory failure: #Left Pneumothorax s/p chest tube placement: 69-year-old previous smoker around 3 to 4 packs a day last smoked in 2017, recent diagnosis of COVID-19 pneumonia admitted to the hospital for almost 10 days requiring Ventimask and eventually discharged home on 4 L nasal cannula during which he received remdesivir and dexamethasone along with c
--- NOTE | 2020-10-23 09:52 | HMH.ACPN2 ---
<Maureen Jones - Last Filed: 10/23/20 09:52> Internal Medicine - PN: Subj *Date: 10/23/20 *Time: 09:52 Interval history: Patient states he generally does not feel well. He denies chest pain and any specific pains. He does admit to being short of breath. He states he does not feel like eating. He denies abdominal pain. Nursing states he is very dependent for all care and even turning in the bed. He remains on Vapotherm at 70%. He has a chest tube with 20 cm of suction. He has had 425 cc of urinary output. His renal function is worsening with a BUN of 175 and a creatinine of 4.7. Electrolytes show sodium of 131 and potassium of 4. Hemoglobin this morning is 8.8 with hematocrit of 26.9. He did receive 2 units of packed red blood cells yesterday. White blood cell count is 13,700. And platelet count is 192,000. Chest x-ray reveals diffuse bilateral pneumonia slightly improved on the right and unchanged on the left. Left chest tube in place with no evidence of pneumothorax. Patient has been seen by pulmonology Dr. Zurita this morning who notes to continue vancomycin and cefepime with duo nebs every 6 hours. To continue with chest tubes -20 cm of water suction. Exam Vital signs and Labs for Last 24 Hours: Temp Pulse Resp BP Pulse Ox 97.9 F 67 14 106/61 L 95 10/23/20 08:00 10/23/20 08:00 10/23/20 08:00 10/23/20 08:00 10/23/20 08:00 Laboratory Results - last 24 hr 10/22/20 10:14: Blood Type O Positive, Antibody Screen Negative, Crossmatch (AHG) See Detail 10/22/20 11:29: POC Glucose 219 H 10/22/20 16:24: POC Glucose 189 H 10/22/20 20:49: POC Glucose 197 H 10/23/20 05:04: POC Glucose 145 H 10/23/20 05:15: WBC 13.7 H, RBC 3.04 L, Hgb 8.8 L D, Hct 26.9 L, MCV 88.5, MCH 28.9, MCHC 32.7, RDW 15.2, Plt Count 192, MPV 9.9, Neut % (Auto) 84.2 H, Lymph % (Auto) 7.1 L, Ter[place] % (Auto) 7.5, Eos % (Auto) 1.0, Baso % (Auto) 0.1, Neut # (Auto) 11.6 H, Lymph # (Auto) 1.0, [place]rell # (Auto) 1.0, Eos # (Auto) 0.1, Baso # (Auto) 0.0 10/23/20 05:15: Sodium 131 L, Potassium 4.0, Chloride 104, Carbon Dioxide 12 L, Anion Gap 19.0 H, BUN 175 H*, Creatinine 4.70 H, Estimated Creat Clear 26, Estimated GFR 12 L*, Est GFR ( Amer) 15 L*, Glucose 128 H D, Calcium 9.1 I & O for Last 24 hours: Intake & Output 10/20/20 10/21/20 10/22/20 10/23/20 11:59 11:59 11:59 11:59 Intake Total 1240 / 1240 1190 / 1190 1210 / 1210 1071 / 1071 Output Total 4300 / 4300 4220 / 4220 1000 / 1000 875 / 875 Balance -3060 / -3060 -3030 / -3030 210 / 210 196 / 196 Weight 269 lb 3 oz 276 lb 8 oz Microbiology Reports for the Last 24 Hours: Microbiology 10/17/20 08:22 Blood Blood Culture - Final NO GROWTH AFTER 5 DAYS 10/17/20 08:22 Blood Blood Culture - Final NO GROWTH AFTER 5 DAYS - Constitutional no acute distress - *Routine Respiratory Exam Present: CTA bilaterally (Anteriorly and posteriorly with diminished breath sounds posteriorly) - *Routine Cardiovascular Exam Present: irregular rhythm Comments: Patient has a guarded variety of ectopy along with his atrial fibrillation with a controlled ventricular response. - *Routine Abdominal Exam Present: soft, normoactive bowel sounds, obese. Absent: tenderness - *Routine Extremities Exam Present: edema (Bilateral legs although this is improved.) Comments: He does have an IV in his foot which nursing plans to DC after PICC line placement. - *Routine Neurological Exam Present: alert, oriented X3 - Routine Psychiatric Exam Present: depressed Assessment and Plan (1) Pneumonia due to COVID-19 virus Status: Acute Category: Medical Code(s): U07.1 - COVID-19; J12.82 - Pneumonia due to coronavirus disease 2018 (2) Pneumothorax Status: Acute Category: Medical Code(s): J93.9 - Pneumothorax, unspecified (3) Renal failure (ARF), acute on chronic Status: Acute Category: Medical Code(s): N17.9 - Acute ki
[2020-10-23 11:06] LABS: POC Glucose,Bedside 114 (70-110)
--- NOTE | 2020-10-23 12:25 | PC.NURSE ---
Notified lab that stool specimen ready to be picked up
--- NOTE | 2020-10-23 13:52 | PC.NURSE ---
Notified Madisyn in lab that stool specimen is still needing to be picked up and vanc trough is ready too
--- NOTE | 2020-10-23 14:09 | PC.NURSE ---
Notified lab vanc trough was ready (previous lab was placed in wrong tube)
--- NOTE | 2020-10-23 14:10 | PC.NURSE ---
Patient is alert and oriented x4. Lungs clear but diminished, left lobes more so than right. He was encouraged to get OOB and up to the chair but he refused. He was turned with assist x1 q2hrs. He had a small BM that was black and tarry. Specimen collected and sent to lab. Dressing to coccyx changed. Moderate amount of serosanguineous drainage noted to old dressing. Assistance offered for brushing teeth and encouraged but patient refused. Appetite very poor with him refusing all meals. PO fluids encouraged and accepted. Water pitcher available at bedside. Dry, non productive cough noted. Archibald to bedside draining konrad colored urine with sediment. Chest tube still in place to 20 cm of suction. No new drainage noted.
[2020-10-23 14:13] LABS: Occult Blood,Stool Positive (Negative)
[2020-10-23 15:15] LABS: Vancomycin,Trough 23.8 ug/mL (5.0-10.0)
--- NOTE | 2020-10-23 15:50 | HMH.PTWOUND ---
Rehab Inpt Wound Evaluation Rehab IP Wound Evaluation Start: 10/23/20 13:21 Freq: ONCE Status: Active Protocol: Document 10/23/20 15:45 PHORNE (Rec: 10/23/20 15:50 PHORNE [id number]) Rehab PT Wound Assessment Subjective Subjective 69 yowm adm to [facility] with worsening PNA due to COVID 19. No on Vapotherm oxygen and has large buttock wounds due to incontinence and pressure. Wound Buttock Wound Type Pressure Ulcer Is This a Chronic Wound No Wound Staging Stage II Query Text:Stage I - Unbroken, red skin, no blanching. Stage II - Skin broken, superficial skin loss involving epidermis alone or also dermis. Partial loss of skin layers. Stage III - Pressure area involves epidermis, dermis and subcutaneous tissue, full thickness skin loss. Stage IV - Pressure area involves epidermis, subcutaneous tissue, bone and other supportive tissue. Full thickness skin loss with extensive destruction of underlying tissue and structures. Wound Bed Appearance Beefy Red,[place] Percentage Granulated (%) 100 Wound Margins Description Indistinct Surrounding Tissue Appearance [place] Wound Drainage Description Serosanguineous Drainage Amount Moderate Dressing Status Dry & Intact Plan/Recommendation Comment NSg to continue dressing changes as needed with current regimen of optifoam sacrum, recommended betadine if necessary to continue decreasing drainage. Wounds do not require debridement at this time. Eval Complexity Eval Charge Codes 88518 - Moderate Complexity PHYSICIAN CERTIFICATION: I certify the specified therapy services for Nicolás Saldana are required, authorized, and reviewed every 30 days.
--- NOTE | 2020-10-23 17:47 | PC.NURSE ---
1000 mls of urine out this shift
[2020-10-24] VITALS (10 sets, daily range): BP systolic 93–132; BP diastolic 58–65; PULSE 76–90; RESP 18–20; TEMP 36.1–36.6; O2SAT 90–94; BMI 42.0
--- NOTE | 2020-10-24 05:54 | PC.NURSE ---
fsbs 65 this am 2 orange juices with sugar given this am
[2020-10-24 05:55] LABS: Chloride 107 mmol/L (98-107); Potassium 3.6 mmoL/L (3.5-5.1); Sodium 132 mmol/L (136-145)
[2020-10-24 05:58] LABS: Alanine Aminotransferase 42 U/L (12-78); Albumin Level 2.5 g/dl (3.5-5.0); Albumin/Globulin Ratio 0.8 (1.1-1.8); Alkaline Phosphatase 86 U/L (38-126); Anion Gap 15.6 mEq/L (5-15); Aspartate Amino Transferase 59 U/L (17-59); Bilirubin,Total 0.4 mg/dl (0.2-1.3); Carbon Dioxide 13 mmol/L (22.0-30.0); Globulin 3.1 g/dL (1.3-3.2); Total Protein,Serum 5.6 g/dl (6.3-8.2)
[2020-10-24 05:59] LABS: Glucose 57 mg/dl (74-100)
--- NOTE | 2020-10-24 06:00 | XR_ITS ---
PROCEDURE: XR CHEST PORTABLE CLINICAL HISTORY: Left pneumothorax Follow-up pneumothorax COMPARISON: CR XR CHEST PORTABLE from 10/21/2020 CR XR CHEST PORTABLE from 10/21/2020 CR XR CHEST PORTABLE PICC PLAC from 10/23/2020 FINDINGS: The 3:52 a.m. Left upper extremity PICC line is present with the tip in the region the SVC. Diffuse bilateral pneumonia with scattered areas of atelectasis/fibrosis once again noted with some sparing in the right apex. Left-sided chest tube remains in place. No evidence of pneumothorax. IMPRESSION: No change in the diffuse airspace disease. No evidence of pneumothorax Dictated by: Gabriel Seth MD 10/24/2020 06:09 Gabriel Seth MD in OV 10/24/2020 06:09
--- NOTE | 2020-10-24 06:04 | PC.NURSE ---
shift summary patient has remained on same settings on the vapotherm, with sats low to mid 90s.patient has been turning himself from supine to right side throughout night independently. affect flat. picc flushes and draws blood easily. library monitor shows afib with multiple pvcs. ct to 20 cm suction, serous drainage. no air leak noted, no crepitus noted. draining clear yellow urine.
[2020-10-24 06:05] LABS: Creatinine Clearance Estimated 14 mL/min (50-200); Estimated Glomerular Filt Rate 9 ml/min (>60); GFR (African American) 11 ML/MIN (>60)
[2020-10-24 06:12] LABS: Blood Urea Nitrogen 185 mg/dl (9-20)
[2020-10-24 06:39] LABS: Basophils % 0.2 % (0.1-2.0); Eosinophils # 0.1 K/mm3 (0.0-0.4); Lymphocytes # 0.9 K/mm3 (0.7-4.5); Mean Corpuscular HGB Conc 33.6 g/dL (31.8-35.4); Mean Corpuscular Hemoglobin 29.4 pg (27.0-31.2); Mean Corpuscular Volume 87.6 fl (80-94); Mean Platelet Volume 10.4 fl (7.4-10.4); Monocytes # 1.1 K/mm3 (0.1-1.0); Monocytes % 8.5 % (1.7-9.3); Neutrophils # 10.4 K/mm3 (1.8-7.8); Neutrophils % 83.3 % (37.0-80.0); Platelet Count 249 K/mm3 (142-424); Red Blood Count 2.54 M/mm3 (4.60-6.20); Red Cell Distribution Width 15.4 % (11.5-17.5); White Blood Count 12.4 K/mm3 (4.8-10.8)
[2020-10-24 06:52] LABS: Hematocrit 22.3 % (42.0-52.0); Hemoglobin 7.5 g/dL (14.1-18.0)
--- NOTE | 2020-10-24 07:15 | P.PN_ITS ---
Subjective Narrative: Per nursing, the patient has showed slight improvement over the past 24 hours with regard to his respiratory status. Progress Note: A&P (1) Pneumonia due to COVID-19 virus Status: Acute (2) Pneumothorax Status: Acute Assessment and plan: No pneumothorax on this morning's chest x-ray. The chest tube can be placed to waterseal if/when approved by the pulmonary service. (3) Renal failure (ARF), acute on chronic Status: Acute (4) Respiratory failure with hypoxia Status: Acute (5) Fluid overload Status: Acute (6) Chronic a-fib Status: Chronic (7) Edema Status: Chronic (8) CAD (coronary artery disease) Status: Chronic (9) Diabetes Status: Chronic (10) Hyperlipidemia Status: Chronic (11) Hypertensive disorder Problem details: Status: Chronic (12) Diarrhea Status: Acute (13) Anemia Status: Acute Exam Vital signs and Labs for Last 24 Hours: Temp Pulse Resp BP Pulse Ox 97.9 F 80 18 93/65 L 92 L 10/24/20 04:00 10/24/20 04:30 10/24/20 04:00 10/24/20 04:00 10/24/20 04:00 Laboratory Results - last 24 hr 10/23/20 10:50: POC Glucose 114 H 10/23/20 12:20: Stool Occult Blood Positive A 10/23/20 14:10: Vancomycin Trough 23.8 H 10/24/20 04:40: WBC 12.4 H, RBC 2.54 L, Hgb 7.5 L*, Hct 22.3 L*, MCV 87.6, MCH 29.4, MCHC 33.6, RDW 15.4, Plt Count 249 D, MPV 10.4, Neut % (Auto) 83.3 H, Lymph % (Auto) 7.0 L, [place] % (Auto) 8.5, Eos % (Auto) 1.0, Baso % (Auto) 0.2, Neut # (Auto) 10.4 H, Lymph # (Auto) 0.9, [place] # (Auto) 1.1 H, Eos # (Auto) 0.1, Baso # (Auto) 0.0 10/24/20 04:40: Sodium 132 L, Potassium 3.6, Chloride 107, Carbon Dioxide 13 L, Anion Gap 15.6 H, BUN 185 H*, Creatinine 5.90 H D, Estimated Creat Clear 14, Estimated GFR 9 L*, Est GFR ( Amer) 11 L* D, Glucose 57 L D, Calcium 9.0, Total Bilirubin 0.4, AST 59, ALT 42, Alkaline Phosphatase 86, Total Protein 5.6 L, Albumin 2.5 L, Globulin 3.1, Albumin/Globulin Ratio 0.8 L I & O for Last 24 hours: Intake & Output 10/21/20 10/22/20 10/23/20 10/24/20 11:59 11:59 11:59 11:59 Intake Total 1190 / 1190 1210 / 1210 1551 / 1551 650 / 650 Output Total 4220 / 4220 1000 / 1000 875 / 875 1520 / 1520 Balance -3030 / -3030 210 / 210 676 / 676 -870 / -870 Weight 276 lb 8 oz 345 lb 4.184 oz - Constitutional Comments: Unchanged per nursing
[2020-10-24 09:34] LABS: Vancomycin,Trough 21.4 ug/mL (5.0-10.0)
--- NOTE | 2020-10-24 09:44 | HMH.ACPN2 ---
Internal Medicine - PN: Subj *Date: 10/24/20 *Time: 10:08 Interval history: Patient with no new complaints today, thinks his breathing may be a little better today. Exam Vital signs and Labs for Last 24 Hours: Temp Pulse Resp BP Pulse Ox 97.9 F 78 18 93/65 L 94 L 10/24/20 04:00 10/24/20 07:48 10/24/20 04:00 10/24/20 04:00 10/24/20 07:48 Laboratory Results - last 24 hr 10/23/20 10:50: POC Glucose 114 H 10/23/20 12:20: Stool Occult Blood Positive A 10/23/20 14:10: Vancomycin Trough 23.8 H 10/24/20 04:40: WBC 12.4 H, RBC 2.54 L, Hgb 7.5 L*, Hct 22.3 L*, MCV 87.6, MCH 29.4, MCHC 33.6, RDW 15.4, Plt Count 249 D, MPV 10.4, Neut % (Auto) 83.3 H, Lymph % (Auto) 7.0 L, [place] % (Auto) 8.5, Eos % (Auto) 1.0, Baso % (Auto) 0.2, Neut # (Auto) 10.4 H, Lymph # (Auto) 0.9, [place] # (Auto) 1.1 H, Eos # (Auto) 0.1, Baso # (Auto) 0.0 10/24/20 04:40: Sodium 132 L, Potassium 3.6, Chloride 107, Carbon Dioxide 13 L, Anion Gap 15.6 H, BUN 185 H*, Creatinine 5.90 H D, Estimated Creat Clear 14, Estimated GFR 9 L*, Est GFR ( Amer) 11 L* D, Glucose 57 L D, Calcium 9.0, Total Bilirubin 0.4, AST 59, ALT 42, Alkaline Phosphatase 86, Total Protein 5.6 L, Albumin 2.5 L, Globulin 3.1, Albumin/Globulin Ratio 0.8 L 10/24/20 07:20: Vancomycin Trough 21.4 H Vital Signs - 24 hr 10/23/20 11:54 10/23/20 11:59 10/23/20 14:33 Temperature 97.8 F Pulse Rate 89 Pulse Rate [Apical] 83 Respiratory Rate 16 Blood Pressure [Right Arm] 91/56 L 02 Sat by Pulse Oximetry 92 L 94 L 10/23/20 15:55 10/23/20 18:48 10/23/20 20:00 Temperature 97.9 F 97.8 F Pulse Rate 73 72 Pulse Rate [Apical] 83 80 Respiratory Rate 18 18 Blood Pressure [Right Arm] 128/62 95/51 L 02 Sat by Pulse Oximetry 90 L 90 L 94 L 10/24/20 00:00 10/24/20 00:29 10/24/20 04:00 Temperature 98 F 97.9 F Pulse Rate 90 85 Pulse Rate [Apical] 78 81 Respiratory Rate 20 18 Blood Pressure [Right Arm] 132/64 93/65 L 02 Sat by Pulse Oximetry 94 L 92 L 10/24/20 04:30 10/24/20 07:48 Temperature Pulse Rate 80 78 Pulse Rate [Apical] Respiratory Rate Blood Pressure [Right Arm] 02 Sat by Pulse Oximetry 94 L I & O for Last 24 hours: Intake & Output 10/21/20 10/22/20 10/23/20 10/24/20 23:59 23:59 23:59 23:59 Intake Total 1280 / 1280 1501 / 1501 630 / 630 600 / 600 Output Total 3420 / 3420 450 / 450 1425 / 1425 520 / 520 Balance -2140 / -2140 1051 / 1051 -795 / -795 80 / 80 Weight 276 lb 8 oz 345 lb 4.184 oz - Constitutional no acute distress (follows commands) - *Routine Respiratory Exam Present: crackles (few bibasilar). Absent: wheezes - *Routine Cardiovascular Exam Present: RRR - *Routine Extremities Exam Present: edema (trace in legs). Absent: cyanosis, clubbing Assessment and Plan (1) Pneumonia due to COVID-19 virus Status: Acute Category: Medical Code(s): U07.1 - COVID-19; J12.82 - Pneumonia due to coronavirus disease 2019 (2) Pneumothorax Status: Acute Category: Medical Code(s): J93.9 - Pneumothorax, unspecified (3) Renal failure (ARF), acute on chronic Status: Acute Category: Medical Code(s): N17.9 - Acute kidney failure, unspecified; N18.9 - Chronic kidney disease, unspecified (4) Respiratory failure with hypoxia Status: Acute Qualifiers: Chronicity: acute Qualified Code(s): J96.01 - Acute respiratory failure with hypoxia Category: Medical Code(s): J96.91 - Respiratory failure, unspecified with hypoxia (5) Fluid overload Status: Acute Qualifiers: Hypervolemia type: other Qualified Code(s): E87.79 - Other fluid overload Category: Medical Code(s): E87.70 - Fluid overload, unspecified (6) Chronic a-fib Status: Chronic Category: Medical Code(s): I48.20 - Chronic atrial fibrillation, unspecified (7) Edema Status: Chronic Qualifiers: Edema type: generalized Qualified Code(s): R60.1 - Generalized edema Category: Medical Code(s): R60.9 - Ed
--- NOTE | 2020-10-24 10:10 | HMH.PHACONS ---
- Pharmacy Consult Date: 10/24/20 Time: 10:10 Referring provider: DR. STRANGE Reason for Consult:: VANCOMYCIN TROUGH LEVEL Allergies and ADEs:: Allergies Allergy/AdvReac Type Severity Reaction Status Date / Time No Known Allergies Allergy Verified 08/30/20 13:15 Home Medications:: Home Medications Medication Instructions Recorded Confirmed Type cetirizine 10 mg tablet 10 mg PO DAILY PRN tab 05/23/18 10/17/20 History dulaglutide 0.75 mg/0.5 mL 0.75 mg SQ WEEKLY 12/02/18 10/17/20 History subcutaneous pen injector metformin 500 mg tablet 500 mg PO BIDWM 03/03/19 10/17/20 History carvedilol 3.125 mg tablet 3.125 mg PO BID tab 07/20/19 10/17/20 History furosemide 40 mg tablet 40 mg PO DAILY tab 03/01/20 10/17/20 History iron heme polypeptide 12 mg tablet 12 mg PO DAILY 03/01/20 10/17/20 History Amlodipine Besylate [Amlodipine 10 mg PO DAILY 09/30/20 10/17/20 History 10mg Tab] Atorvastatin Calcium [Lipitor 40mg 40 mg PO DAILY 09/30/20 10/17/20 History Tab] Albuterol Sulfate [Albuterol 1 - 2 puffs IH Q6HP PRN 10/01/20 10/17/20 History Sulfate Hfa] Cholecalciferol (Vitamin D3) 50,000 unit PO WEEKLY 10/01/20 10/17/20 History [Vitamin D3 50,000 unit Cap] Glimepiride [Amaryl] 2 mg PO DAILY 10/01/20 10/17/20 History Losartan Potassium [Cozaar 100mg 100 mg PO DAILY 10/01/20 10/17/20 History Tablets] Promethazine/Dextromethorphan 5 ml PO Q6H PRN 10/01/20 10/17/20 History [Promethazine-Dm Syrup] Rivaroxaban [Xarelto 15mg tablet] 15 mg PO DAILY 10/01/20 10/17/20 History Zinc Sulfate [Zinc Sulfate 220mg 220 mg PO DAILY 10/01/20 10/17/20 History capsule] Fenofibrate 160 mg PO DAILY 10/18/20 10/18/20 History Height: 1.93 m Weight: 156.608 kg Laboratory Results:: Laboratory Results - last 24 hr 10/23/20 10:50: POC Glucose 114 H 10/23/20 12:20: Stool Occult Blood Positive A 10/23/20 14:10: Vancomycin Trough 23.8 H 10/24/20 04:40: WBC 12.4 H, RBC 2.54 L, Hgb 7.5 L*, Hct 22.3 L*, MCV 87.6, MCH 29.4, MCHC 33.6, RDW 15.4, Plt Count 249 D, MPV 10.4, Neut % (Auto) 83.3 H, Lymph % (Auto) 7.0 L, [place] % (Auto) 8.5, Eos % (Auto) 1.0, Baso % (Auto) 0.2, Neut # (Auto) 10.4 H, Lymph # (Auto) 0.9, [place] # (Auto) 1.1 H, Eos # (Auto) 0.1, Baso # (Auto) 0.0 10/24/20 04:40: Sodium 132 L, Potassium 3.6, Chloride 107, Carbon Dioxide 13 L, Anion Gap 15.6 H, BUN 185 H*, Creatinine 5.90 H D, Estimated Creat Clear 14, Estimated GFR 9 L*, Est GFR ( Amer) 11 L* D, Glucose 57 L D, Calcium 9.0, Total Bilirubin 0.4, AST 59, ALT 42, Alkaline Phosphatase 86, Total Protein 5.6 L, Albumin 2.5 L, Globulin 3.1, Albumin/Globulin Ratio 0.8 L 10/24/20 07:20: Vancomycin Trough 21.4 H Medical History: Reports:: Arrhythmia (Atrial fibrillation), Atrial Fibrillation, BPH, Coronary Artery Disease, Diabetes Mellitus Type 2, Hyperlipidemia, Hypertension, Kidney Stones, Renal Insufficiency Denies:: Cancer, Diabetes Mellitus Type 1, Internal Pacemaker, Lung Disease, MRSA, Seizures Assessment and Plan (1) Pneumonia due to COVID-19 virus Status: Acute Category: Medical Code(s): U07.1 - COVID-19; J12.82 - Pneumonia due to coronavirus disease 2019 (2) Pneumothorax Status: Acute Category: Medical Code(s): J93.9 - Pneumothorax, unspecified (3) Renal failure (ARF), acute on chronic Status: Acute Category: Medical Code(s): N17.9 - Acute kidney failure, unspecified; N18.9 - Chronic kidney disease, unspecified (4) Respiratory failure with hypoxia Status: Acute Qualifiers: Qualified Code(s): J96.01 - Acute respiratory failure with hypoxia Category: Medical Code(s): J96.91 - Respiratory failure, unspecified with hypoxia (5) Fluid overload Status: Acute Qualifiers: Qualified Code(s): E87.79 - Other fluid overload Category: Medical Code(s): E87.70 - Fluid overload, unspecified (6) Chronic a-fib Status: Chronic Category: Medical Code(s): I48.20 - Chronic atrial fibrillation, unspeci
--- NOTE | 2020-10-24 10:17 | HMH.DCSUM ---
General - General Admission date:: 10/17/20 <Jeffrey Sun - 10/24/20 12:05> 10/17/20 <Anahi Ortega - 10/24/20 10:39> Discharge date: 10/24/20 <Anahi Ortega - 10/24/20 10:39> HPI HPI: 69-year-old male presenting to the emergency department with shortness of breath, fatigue. He has felt generally unwell for greater than 2 weeks. Was diagnosed with COVID-19 16 days ago. Spent 10 days in the hospital. Since discharge he has been essentially living in his recliner. He feels tired all of the time. Has been urinating in a cup by the bedside. Not eating or drinking much. Has not made much urine in the last few days. Incontinent of stool recently. No numbness, weakness, tingling in 1 extremity or another. He uses CPAP at night. [place] short of breath yesterday and this morning. Called 911 when he woke up. Feels like he is breathing fast, unable to get enough air. He has had swelling of his legs. Feels his abdomen is swollen. Continues to cough frequently. Nonproductive. No particular chest pain or abdominal pain. Patient hypoxic on arrival with oxygen saturation of 77% on room air. Placed on nasal cannula at 3 L. Hypertensive at 150 systolic. Other vital signs within normal limits. Differential diagnoses include pneumonia, heart failure, pleural effusion, renal failure, electrolyte abnormality, urinary tract infection, sepsis. Will obtain CBC, CMP, chest x-ray, EKG, troponin profile, BNP, urinalysis. Initial laboratory results show acute on chronic renal failure. Creatinine 3.8 and BUN 100. Patient's baseline creatinine is between 2.5 and 3.0. BNP elevated at greater than 2000. Given patient's lower extremity swelling, respiratory difficulty, will give 80 mg IV Lasix and start on BiPAP. He has had 300 cc of urine out of his Archibald catheter. Is making urine. Electrolytes are grossly within normal limits. X-ray concerning for persistent Covid pneumonia. Consolidation in the left lower is concerning for an effusion. After initiation of BiPAP, patient's oxygen saturation had increased to the low 90s. Vital signs stable. Will admit for further management. (the above as per the ER physician) The patient states he felt better right after discharge, but the past few days he has been getting worse. He had some pain in the left side of his chest, left flank, and left upper abdomen, but he began having some production of sputum and this seemed to ease the pain in these areas. He has been so weak at home he has been staying only in his recliner. He states his oxygen was in the 70s even on 3 L at home. <Anahi Ortega - 10/24/20 10:39> Hospital Course Hospital Course: The patient's initial chest x-ray showed bilateral pneumonia with a left-sided pneumothorax. He was admitted and started on IV antibiotics along with Vapotherm. He was also given Lasix due to fluid overload, however he did have acute on chronic kidney failure, so his renal function had to be monitored closely. Pulmonology as well as general surgery were consulted. Dr. Bajwa saw the patient and placed a chest tube. A repeat chest x-ray showed a decrease in the size of the left-sided pneumothorax with a chest tube in place. The patient was seen by pulmonology. The patient had had a previous admission for 10 days after his initial diagnosis of Covid where he received remdesivir and dexamethasone along with cefdinir and azithromycin. He had negative blood and sputum cultures on that admission. The admission was complicated by ventricular dysrhythmias and cardiology was consulted and he was initiated on Coreg and was also anticoagulated with Xarelto for atrial fib. His chest x-ray showed worsening infiltrates along with leukocytosis on this admission. Due to this, pulmonology wanted to hold off on initiating remdesivir and dexamethasone and the patient was placed on vancomycin and cefepime for hospital-acquired pneumonia. A repeat chest x-ray was ordered showing
--- NOTE | 2020-10-24 10:28 | PC.NURSE ---
[facility] CALLED TO GET AN UPDATE ON PT. THEY SAID THEY WILL CALL BACK WITH AN UPDATE ON THEIR END LATER ON IN THE DAY.
--- NOTE | 2020-10-24 10:45 | PC.NURSE ---
[facility] CALLED AND SAID PT IS GOING TO [facility], 10FT FLOOR, ROOM 238. PT AND SON AWARE. CALL REPORT TO [phone].
--- NOTE | 2020-10-24 12:01 | PC.NURSE ---
PER DR GILMORE CHEST TUBE TO WATER SEAL.
--- NOTE | 2020-10-24 12:01 | PC.NURSE ---
ATTEMPTED TO CALL [facility] AND THEY STATED THEY WOULD CALL BACK SHORTLY.
--- NOTE | 2020-10-24 12:05 | PC.NURSE ---
CALLED [facility] TO MAKE THEM AWARE OF TRANSPORT. TOLD THEM I WOULD CALL WHEN PT IS READY TO GO.
--- NOTE | 2020-10-24 13:00 | PC.NURSE ---
CALLED REPORT TO SELINA AT .
[2020-10-25 07:40] LABS: POC Glucose,Bedside 109 (70-110)
[2020-10-25 07:40] LABS: POC Glucose,Bedside 65 (70-110)
[2020-10-25 07:40] LABS: POC Glucose,Bedside 105 (70-110)
[2020-10-25 07:40] LABS: POC Glucose,Bedside 92 (70-110)
[2020-10-25 07:41] LABS: POC Glucose,Bedside 95 (70-110)
== END 2020-10-24 15:10 | disposition short-term general hospital (02) | DRG 177 ==
LOC: ER 09:25 → ICU 10:03
PROVIDERS: Internal Medicine Pulmonary Disease; Nurse Practitioner Family; Admitting Provider Family Medicine; Emergency Provider Emergency Medicine; PCP Family Medicine; Visit Provider Family Medicine
DX: U07.1 COVID-19 (principal); J96.21 Acute and chronic respiratory failure with hypoxia; J12.82 Pneumonia due to coronavirus disease 2019; N17.9 Acute kidney failure, unspecified; I48.20 Chronic atrial fibrillation, unspecified; J93.83 Other pneumothorax; I12.9 Hypertensive chronic kidney disease with stage 1 through stage 4 chronic kidney disease, or unspecified chronic kidney disease; E11.22 Type 2 diabetes mellitus with diabetic chronic kidney disease; N18.9 Chronic kidney disease, unspecified; I25.10 Atherosclerotic heart disease of native coronary artery without angina pectoris; Z79.84 Long term (current) use of oral hypoglycemic drugs; Z79.01 Long term (current) use of anticoagulants; Z79.899 Other long term (current) drug therapy; Z87.891 Personal history of nicotine dependence
CPT/HCPCS: 32551; 36569; 36415; 71045; 80048; 80053; 80202; 81001; 82272; 82550; 82803; 82962; 83605; 83690; 83880; 84484; 85007; 85025; 85378; 86140; 86850; 87040; 87070; 87081; 87205; 87506; 87581; 87633; 87798; 93005; 94640; 94760; 94761; 96365; 96375; 99285; C1751; G0328; J0456; J0692; J2405; J3370; P9016

== ENCOUNTER 2021-10-28 10:47 | Emergency (ER) | payer MEDICARE, SELFPAY ==
[2021-10-28] VITALS (9 sets, daily range): BP systolic 137–157; BP diastolic 72–86; PULSE 59–70; RESP 13–24; TEMP 36.4; O2SAT 96–97; BMI 31.7
--- NOTE | 2021-10-28 10:53 | ECG_ITS ---
APPROVED REPORT Exam: Resting ECG HR:62 bpm ECG Measurements Heart Rate 62 AXES QRSd 99 QRS 57 QT 399 T 67 QTc 404 Conclusion ATRIAL FIBRILLATION WITH ABERRANT CONDUCTION OR VENTRICULAR PREMATURE COMPLEXES ABNORMAL RHYTHM ECG UNCONFIRMED REPORT Electronically signed by : Benjamin Allen MD 10/29/2021 21:03:40
--- NOTE | 2021-10-28 11:36 | HMH.EDGENADL ---
ED Disposition Clinical Impression: Bradycardia, Atrial fibrillation with slow ventricular response Chronic kidney disease Qualifiers: Chronic kidney disease stage: unspecified stage Qualified Code(s): N18.9 - Chronic kidney disease, unspecified Disposition: Home, Self-Care Condition on Discharge: Good Additional Instructions: Do not take nifedipine or carvedilol until further instructed by Dr. Sun. Call Dr. Sun at his office tomorrow for further instructions. Referrals: Jeffrey Sun MD [Primary Care Provider] - - Critical Care Critical Care Time: No Attestation: On 10/28/21, the high probability of a clinically significant, sudden or life threatening deterioration of the following system(s) required my full and direct attention, intervention and personal management. The time I documented below is in addition to time spent performing reported procedures but includes the following listed in this critical care notation. Medical Decision Making - Zander Inquiry Pt receiving controlled substance: No Vital Signs: 10/28/21 10:48 10/28/21 11:24 10/28/21 12:17 Temperature 97.5 F L Temperature Source Oral Pulse Rate 70 59 L Pulse Rate [Left Radial] 67 Respiratory Rate 18 24 Blood Pressure 143/86 H 137/74 Blood Pressure [Right Arm] 157/80 H Blood Pressure Mean [Right Arm] 105 Blood Pressure Source [Right Arm] Automatic Cuff Blood Pressure Position [Right Arm] Sitting 02 Sat by Pulse Oximetry 96 97 97 Oxygen Delivery Method Room Air Room Air Room Air - Lab Data Lab Results 10/28/21 11:00: WBC 7.0, RBC 3.26 L, Hgb 10.2 L, Hct 30.6 L, MCV 93.9, MCH 31.4 H, MCHC 33.4, RDW 14.9, Plt Count 185, MPV 10.4, Neut % (Auto) 77.0, Lymph % (Auto) 12.6, Calhoun % (Auto) 8.4, Eos % (Auto) 1.7, Baso % (Auto) 0.3, Neut # (Auto) 5.4, Lymph # (Auto) 0.9, Calhoun # (Auto) 0.6, Eos # (Auto) 0.1, Baso # (Auto) 0.0 10/28/21 11:00: Sodium 140, Potassium 3.8, Chloride 114 H, Carbon Dioxide 19 L, Anion Gap 10.8, BUN 75 H, Creatinine 3.60 H, Estimated Creat Clear 31, Estimated GFR 17 L*, Est GFR ( Amer) 20 L, Glucose 132 H, Calcium 8.0 L Result diagrams: 10/28/21 11:00 10/28/21 11:00 - ECG Data Tracing #1 EKG interpreted by Cristofer Carrillo MD: Rhythm: Atrial fibrillation Rate: 62 Center: normal Ectopy: Premature ventricular contraction versus aberrant conduction Conduction: normal ST Segment Changes: none T Wave Changes: none Q Waves: none No evidence of acute ischemia or injury - Physician Consults Physician Consulted: Dino Time: 13:15 Reason -: Pt condition Comment/Response: Have patient hold nifedipine and carvedilol until further instructed by him. Have patient call him at his office tomorrow for further instructions. Also notes patient's most recent creatinine was 3.2 in the office. General Adult HPI - General Stated complaint: low HR Time Seen by Provider: 10/28/21 11:40 - History of Present Illness HPI narrative: Patient states that he was sent here from physical therapy because of low heart rate. He says he went for physical therapy for leg strengthening and staff put a pulse oximeter on him which showed a heart rate of 49. He says he was having no symptoms. No chest pain, palpitations, dizziness, lightheadedness, presyncope or syncope. He is chronically short of breath and says his shortness of breath is unchanged. He has chronic swelling of his legs which is unchanged. He has atrial fibrillation. He says he has seen Dr. Silverio in the past but has not seen him in a couple of years. Primary care provider is Dr. Sun. He denies any recent changes in his medications. - Related Data Home Medications Medication Instructions Recorded Confirmed cetirizine 10 mg tablet 10 mg PO DAILY PRN tab 05/23/18 10/17/20 dulaglutide 0.75 mg/0.5 mL 0.75 mg SQ WEEKLY 12/02/18 10/17/20 subcutaneous pen injector metformin 500 mg tablet 500 mg PO BIDWM 03/03/19
[2021-10-28 12:03] LABS: Basophils % 0.3 % (0.1-2.0); Eosinophils # 0.1 K/mm3 (0.0-0.4); Eosinophils % 1.7 % (0.1-12.0); Hematocrit 30.6 % (42.0-52.0); Hemoglobin 10.2 g/dL (14.1-18.0); Lymphocytes # 0.9 K/mm3 (0.7-4.5); Lymphocytes % 12.6 % (10-50); Mean Corpuscular HGB Conc 33.4 g/dL (31.8-35.4); Mean Corpuscular Hemoglobin 31.4 pg (27.0-31.2); Mean Corpuscular Volume 93.9 fl (80-94); Mean Platelet Volume 10.4 fl (7.4-10.4); Monocytes # 0.6 K/mm3 (0.1-1.0); Monocytes % 8.4 % (1.7-9.3); Neutrophils # 5.4 K/mm3 (1.8-7.8); Platelet Count 185 K/mm3 (142-424); Red Blood Count 3.26 M/mm3 (4.60-6.20); Red Cell Distribution Width 14.9 % (11.5-17.5)
[2021-10-28 12:04] LABS: Chloride 114 mmol/L (98-107); Potassium 3.8 mmoL/L (3.5-5.1); Sodium 140 mmol/L (136-145)
[2021-10-28 12:07] LABS: Anion Gap 10.8 mEq/L (5-15); Blood Urea Nitrogen 75 mg/dl (9-20); Carbon Dioxide 19 mmol/L (22.0-30.0); Creatinine Clearance Estimated 31 mL/min (50-200); Estimated Glomerular Filt Rate 17 ml/min (>60); GFR (African American) 20 ML/MIN (>60)
[2021-10-28 12:08] LABS: Glucose 132 mg/dl (74-100)
--- NOTE | 2021-10-28 13:13 | PC.NURSE ---
Dr. Carrillo on phone with Dr. Sun
== END 2021-10-28 13:55 | disposition home or self-care (01) ==
PROVIDERS: Emergency Provider Emergency Medicine; PCP Family Medicine
DX: R00.1 Bradycardia, unspecified (principal); I48.0 Paroxysmal atrial fibrillation; N18.9 Chronic kidney disease, unspecified; E11.9 Type 2 diabetes mellitus without complications; I25.10 Atherosclerotic heart disease of native coronary artery without angina pectoris; I10 Essential (primary) hypertension; E78.5 Hyperlipidemia, unspecified; Z79.899 Other long term (current) drug therapy
CPT/HCPCS: 80048; 85025; 93005; 99282; 99283

== ENCOUNTER 2021-11-07 11:00 | Outpatient (RCR) | payer MEDICARE, SELFPAY ==
--- NOTE | 2021-07-31 11:09 | HMH.PTOPEV ---
PT Outpatient Evaluation Rehab PT Outpatient Evaluation Start: 07/31/21 08:44 Freq: Status: Active Protocol: Document 07/31/21 09:45 ELIS (Rec: 07/31/21 10:39 [email or web address] [id number]) Electronically Signed By Dennis Daily, PT 07/31/21 09:45 Outpatient Therapy Subjective History Subjective History This is the initial evaluation for Nicolás Saldana. Pt is a 70 y/o male referred for weakness and balance issues. Pt reports a long hx of hospitalization involving COVID, pnemonia, and pressure ulcers that have left him very weak. Pt states he uses a walker at home to get around. Pt reports no hx of falls but does have endurance problems with walking and standing for long. - note done by Maria Esther Tucker, SPT Chief Complaint Weakness,Decreased Coordination Symptom Type Other Prior Functional Limitations None Current Functional Limitations Lifting,Housework,Dressing, Driving,Standing,Recreation Activity,Walking,Stairs, Balance Hip/Knee Eval MMT bilateral Hip Flexion Strength Grade 4- Good- Hip Abduction Strength Grade 4- Good- Hip Adduction Strength Grade 4- Good- Hip External Rotation Strength Grade 4- Good- Hip Internal Rotation Strength Grade 4- Good- Knee Extension Strength Grade 5 Normal Knee Flexion Strength Grade 5 Normal Balance Eval Subjective Hx of Complaint Comment weakness,balance Chief Complaint vertigo No Did you feel dizzy, unsteady or faint? No: unsteady, weak Current Functional Limitations Comment endurance in walking, standing , recreational activites, household activites Hx of Falls Hx Falls No Gait/Posture Asssessment General Gait Observation Wide Based Gait,Hips Posterior to KASS[place]Y Assistive Devices Rolling / Wheeled Walker, Wheelchair Level of Transfer Assist Standby Assistance Hip Observation in Gait Swing Adducted Hip Observation in Gait Stance Adducted Ankle/Foot Observation in Gait Swing Decreased Foot Clearance Hip Posture Standing Position (L) Adducted,(R) Adducted Body Alignment Posture Leaning,Forward Head [place] Feet Together/Ey
== END 2021-11-07 11:05 | disposition home or self-care (01) ==
LOC: PT 11:00
PROVIDERS: PCP Family Medicine; Visit Provider Family Medicine
DX: M62.81 Muscle weakness (generalized) (principal); R29.898 Other symptoms and signs involving the musculoskeletal system
CPT/HCPCS: 97110; 97112; 97116; 97163; 97164; 97530

== ENCOUNTER 2021-11-11 10:00 | Outpatient (RCR) | payer MEDICARE, SELFPAY ==
--- NOTE | 2021-07-21 14:28 | HMH.PTOPWND ---
Rehab Outpt Wound Evaluation Rehab OP Wound Evaluation Start: 07/09/21 08:53 Freq: Status: Active Protocol: Document 07/21/21 14:21 YOGESH (Rec: 07/21/21 14:28 PHORNE [id number]) Electronically Signed By Tom Perez, PT 07/21/21 14:21 Subjective/History History History Pt is 70 yowm who presents with sacral pressure injury x ~ 9 mos. He reports he was adm to hospital with COVID and PNA and during hospital stay he developed this wound. Since that time he has had extremely difficulty time regaining his strength and spends most of his day sitting in a recliner. He reports wound has healed somewhat, but remains open and is difficult to heal. He has PMH of DM-II, CAD, CKD, HTN, HL, a-fib, and anemia. Subjective Subjective Pt counselled to find any way to relieve pressure from the wound area while sitting. He reports having a cushion for his wheelchair (possibly gel, but unsure) otherwise no pressure relief while sitting. Wound Eval Wound Sacrum Wound Type Pressure Ulcer Is This a Chronic Wound Yes Wound Staging Stage III Query Text:Stage I - Unbroken, red skin, no blanching. Stage II - Skin broken, superficial skin loss involving epidermis alone or also dermis. Partial loss of skin layers. Stage III - Pressure area involves epidermis, dermis and subcutaneous tissue, full thickness skin loss. Stage IV - Pressure area involves epidermis, subcutaneous tissue, bone and other supportive tissue. Full thickness skin loss with extensive destruction of underlying tissue and structures. Wound Length (cm) 2.2 Wound Width (cm) 1.0 Wound Depth (cm) 1.3 Wound Bed Appearance Beefy Red Percentage Granulated (%) 99 Wound Margins Description Macerated Undermining Position 2 o'clock Undermining Length (cm) 1.3 Surrounding Tissue Appearance [place] Drainage Description Serous Drainage Amount Moderate Wound Topical Solution/
--- NOTE | 2021-08-20 10:52 | HMH.RHREAS ---
Rehab Reassessment Rehab OP Re-assessment Start: 08/20/21 10:49 Freq: Status: Active Protocol: Document 08/20/21 10:49 YOGESH (Rec: 08/20/21 10:52 YOGESH [id number]) Electronically Signed By Tom Perez, PT 08/20/21 10:49 Rehab Re-assessment Subjective Subjective Pt reports no change in symptoms from sacral wound. Objective Objective Notes Sacral wound: L= 2.9 cm, W= 1. 1 cm, D= 1.4 cm. Assessment Progress Assessment Slower Than Expected Assessment Notes Wound remains almost completely granulated, but is essentially unchanged in regards to size. Pt continues to need further compliance with pressure relief to achieve wound healing. Patient goals met None Goals Not Met ST LT,2 Revised Goals None Plan Plan Continue per initial POC. Frequency of Therapy 2 x/wk Duration of therapy 8 wks Time and Billing Re-Eval Time 15 Re-Eval Billing Units 0 PHYSICIAN CERTIFICATION: I certify the specified therapy services for Nicolás Saldana are required, authorized, and reviewed every 30 days.
--- NOTE | 2021-10-01 10:06 | HMH.RHREAS ---
Rehab Reassessment Rehab OP Re-assessment Start: 08/20/21 10:49 Freq: Status: Active Protocol: Document 10/01/21 10:03 YOGESH (Rec: 10/01/21 10:05 YOGESH [id number]) Electronically Signed By Tom Perez, PT 10/01/21 10:03 Rehab Re-assessment Subjective Subjective Pt reports no c/o increased pain or discomfort at this time. Objective Objective Notes Sacral Wound: L= 1.3 cm, W= 0. 7 cm, D= 1.4 cm. Wound bed appears 100% granulation tissue. Assessment Progress Assessment Progressing as Expected Assessment Notes Drainage is decreased since initial evaluation, however wound remains mildly macerated around its perimeter. Continues to heal steadily. Patient goals met ST Goals Not Met LT,2 Revised Goals None Plan Plan Continue per initial POC. Frequency of Therapy 2 x/wk Duration of therapy 8 wks Time and Billing Re-Eval Time 15 Re-Eval Billing Units 0 PHYSICIAN CERTIFICATION: I certify the specified therapy services for Nicolás Saldana are required, authorized, and reviewed every 30 days.
--- NOTE | 2021-10-28 11:46 | HMH.RHREAS ---
Rehab Reassessment Rehab OP Re-assessment Start: 08/20/21 10:49 Freq: Status: Active Protocol: Document 10/28/21 11:44 YOGESH (Rec: 10/28/21 11:46 YOGESH [id number]) Electronically Signed By Tom Perez, PT 10/28/21 11:44 Rehab Re-assessment Subjective Subjective Pt reports he feels he is getting better overall. Objective Objective Notes Sacral Wound: L= 1.2 cm, W= 0. 5 cm, D= 1.4 cm Assessment Progress Assessment Progressing as Expected Assessment Notes Wound with significant changes with improved granulation tissue and decreased size. Continues to drain, although less amts. Healthy granulation tissue at wound base, but depth remains increased. Patient goals met ST Goals Not Met LT,2 Revised Goals None Plan Plan Continue per initial POC. Frequency of Therapy 2 x/wk Duration of therapy 8 wks Time and Billing Re-Eval Time 15 Re-Eval Billing Units 1 PHYSICIAN CERTIFICATION: I certify the specified therapy services for Nicolás Saldana are required, authorized, and reviewed every 30 days.
== END 2021-11-11 11:00 | disposition home or self-care (01) ==
LOC: PT 10:00
PROVIDERS: PCP Family Medicine; Visit Provider Family Medicine
DX: S31.000A Unspecified open wound of lower back and pelvis without penetration into retroperitoneum, initial encounter (principal)
CPT/HCPCS: 97162; 97164; 97597

== ENCOUNTER → 2021-11-17 13:36 | Outpatient (CLI) | payer MEDICARE, SELFPAY ==
--- NOTE | 2021-11-17 13:46 | XR_ITS ---
FINAL REPORT CLINICAL HISTORY: LT HIP PAIN, NKI FINDINGS: LEFT HIP: Two views of the left hip and an AP view of the pelvis demonstrate no acute fracture or dislocation. There are mild degenerative changes of the hips bilaterally. A chronic calcification adjacent is seen adjacent left ischial tuberosity. There are mild vascular calcifications. The visualized bony structures are well aligned. No soft tissue abnormality is seen. IMPRESSION: Degenerative changes without acute bony abnormality. Reviewed, Interpreted and Dictated by Deng Wood III, MD Transcribed by Maria Esther Espinosa Authenticated by Deng Wood III, MD on 11/17/2021 03:51:05 PM [facility]
== END ==
PROVIDERS: PCP Family Medicine; Visit Provider Family Medicine
DX: M25.552 Pain in left hip (principal)
CPT/HCPCS: 73502

== ENCOUNTER → 2021-12-19 14:22 | Outpatient (CLI) | payer MEDICARE, SELFPAY ==
[2021-12-19 15:50] LABS: Albumin Level 4.1 g/dl (3.5-5.0); Anion Gap 15.1 mEq/L (5-15); Blood Urea Nitrogen 59 mg/dl (9-20); Calcium 9.5 mg/dl (8.4-10.2); Carbon Dioxide 20 mmol/L (22.0-30.0); Chloride 114 mmol/L (98-107); Estimated Glomerular Filt Rate 16 ml/min (>60); GFR (African American) 20 ML/MIN (>60); Glucose 118 mg/dl (74-100); Potassium 4.1 mmoL/L (3.5-5.1); Sodium 145 mmol/L (136-145)
[2021-12-19 16:02] LABS: Intact Parathyroid Hormone 87.3 pg/mL (7.5-53.5)
[2021-12-19 16:08] LABS: 25-OH Vitamin D, Total 56.7 ng/mL (30-100)
[2021-12-19 17:28] LABS: Basophils % 0.5 % (0.1-2.0); Eosinophils # 0.1 K/mm3 (0.0-0.4); Eosinophils % 2.3 % (0.1-12.0); Hematocrit 35.5 % (42.0-52.0); Hemoglobin 11.9 g/dL (14.1-18.0); Lymphocytes % 16.7 % (10-50); Mean Corpuscular HGB Conc 33.5 g/dL (31.8-35.4); Mean Corpuscular Hemoglobin 31.5 pg (27.0-31.2); Mean Corpuscular Volume 94.1 fl (80-94); Mean Platelet Volume 10.4 fl (7.4-10.4); Monocytes # 0.6 K/mm3 (0.1-1.0); Monocytes % 9.3 % (1.7-9.3); Neutrophils # 4.3 K/mm3 (1.8-7.8); Neutrophils % 71.2 % (37.0-80.0); Platelet Count 203 K/mm3 (142-424); Red Blood Count 3.77 M/mm3 (4.60-6.20); Red Cell Distribution Width 14.6 % (11.5-17.5)
== END ==
PROVIDERS: Visit Provider Internal Medicine Nephrology
DX: N18.4 Chronic kidney disease, stage 4 (severe) (principal); E55.9 Vitamin D deficiency, unspecified
CPT/HCPCS: 36415; 80069; 82306; 83970; 85025

== ENCOUNTER → 2021-12-22 09:03 | Outpatient (CLI) | payer MEDICARE, SELFPAY ==
[2021-12-22 09:07] LABS: Microscopic, Urine URINE MICROSCOPIC (MICROSCOPIC)
[2021-12-22 09:18] LABS: Appearance,Urine CLEAR (Clear); Bilirubin,Urine Negative (Negative); Blood, Urine 1+ (Negative); Color,Urine YELLOW (Yellow); Glucose,Urine (UA) Negative (Negative); Ketones,Urine Negative (Negative); Leukocyte Esterase,Urine 2+ (Negative); Nitrate,Urine Negative (Negative); Protein,Urine 2+ (Negative); Urobilinogen,Urine 0.2 EU/dl (0.2)
[2021-12-22 09:36] LABS: Creatinine,Urine Random 59 mg/dL (Not Estab.)
[2021-12-22 09:47] LABS: Bacteria,Urine 1+ /lpf; WBC,Urine 20-50 #/hpf (0-3)
== END ==
PROVIDERS: Visit Provider Internal Medicine Nephrology
DX: N18.4 Chronic kidney disease, stage 4 (severe) (principal); B96.5 Pseudomonas (aeruginosa) (mallei) (pseudomallei) as the cause of diseases classified elsewhere; R82.90 Unspecified abnormal findings in urine
CPT/HCPCS: 81001; 82570; 84155; 87086; 87088; 87186

== ENCOUNTER → 2021-12-22 15:42 | Outpatient (POV) | payer MEDICARE, SELFPAY | PROVIDERS: Visit Provider Internal Medicine Nephrology | DX: Z00.00 Encounter for general adult medical examination without abnormal findings (principal) ==

== ENCOUNTER → 2022-02-10 10:47 | Outpatient (CLI) | payer MEDICARE, SELFPAY ==
[2022-02-10 11:03] LABS: Microscopic, Urine URINE MICROSCOPIC (MICROSCOPIC)
[2022-02-10 11:31] LABS: Hemoglobin 10.5 g/dL (14.1-18.0); Mean Corpuscular HGB Conc 33.8 g/dL (31.8-35.4); Mean Corpuscular Hemoglobin 31.5 pg (27.0-31.2); Mean Corpuscular Volume 93.1 fl (80-94); Platelet Count 199 K/mm3 (142-424); Red Blood Count 3.33 M/mm3 (4.60-6.20); Red Cell Distribution Width 14.1 % (11.5-17.5); White Blood Count 5.8 K/mm3 (4.8-10.8)
[2022-02-10 11:55] LABS: Albumin Level 3.7 g/dl (3.5-5.0); Anion Gap 17.3 mEq/L (5-15); Blood Urea Nitrogen 56 mg/dl (9-20); Calcium 7.7 mg/dl (8.4-10.2); Carbon Dioxide 20 mmol/L (22.0-30.0); Chloride 110 mmol/L (98-107); Estimated Glomerular Filt Rate 15 ml/min (>60); GFR (African American) 18 ML/MIN (>60); Glucose 105 mg/dl (74-100); Phosphorous 4.5 mg/dl (2.5-4.5); Potassium 3.3 mmoL/L (3.5-5.1); Sodium 144 mmol/L (136-145)
[2022-02-10 12:34] LABS: Creatinine,Urine Random 73 mg/dL (Not Estab.)
[2022-02-10 20:05] LABS: Appearance,Urine CLOUDY (Clear); Bilirubin,Urine Negative (Negative); Blood, Urine 2+ (Negative); Color,Urine YELLOW (Yellow); Glucose,Urine (UA) Negative (Negative); Ketones,Urine Negative (Negative); Leukocyte Esterase,Urine 2+ (Negative); Nitrate,Urine Negative (Negative); Protein,Urine 2+ (Negative); Urobilinogen,Urine 0.2 EU/dl (0.2)
[2022-02-10 20:27] LABS: Bacteria,Urine 1+ /lpf; WBC,Urine TNTC #/hpf (0-3)
== END ==
PROVIDERS: Visit Provider Internal Medicine Nephrology
DX: N18.4 Chronic kidney disease, stage 4 (severe) (principal); B96.5 Pseudomonas (aeruginosa) (mallei) (pseudomallei) as the cause of diseases classified elsewhere; R82.90 Unspecified abnormal findings in urine
CPT/HCPCS: 36415; 80069; 81001; 82570; 84155; 85014; 85018; 85048; 85049; 87086; 87088; 87186

== ENCOUNTER → 2022-02-12 14:27 | Outpatient (POV) | payer MEDICARE, SELFPAY | PROVIDERS: Visit Provider Internal Medicine Nephrology | DX: Z00.00 Encounter for general adult medical examination without abnormal findings (principal) ==

== ENCOUNTER → 2022-03-11 11:42 | Outpatient (CLI) | payer MEDICARE, SELFPAY ==
[2022-03-11 12:14] LABS: Hematocrit 31.2 % (42.0-52.0); Hemoglobin 10.4 g/dL (14.1-18.0); Mean Corpuscular HGB Conc 33.4 g/dL (31.8-35.4); Mean Corpuscular Hemoglobin 30.4 pg (27.0-31.2); Mean Corpuscular Volume 90.8 fl (80-94); Platelet Count 193 K/mm3 (142-424); Red Blood Count 3.44 M/mm3 (4.60-6.20); Red Cell Distribution Width 14.1 % (11.5-17.5); White Blood Count 7.8 K/mm3 (4.8-10.8)
[2022-03-11 13:05] LABS: Chloride 113 mmol/L (98-107)
[2022-03-11 13:06] LABS: Potassium 3.6 mmoL/L (3.5-5.1); Sodium 144 mmol/L (136-145)
[2022-03-11 13:08] LABS: Blood Urea Nitrogen 43 mg/dl (9-20); Estimated Glomerular Filt Rate 16 ml/min (>60); GFR (African American) 20 ML/MIN (>60)
[2022-03-11 13:09] LABS: Anion Gap 15.6 mEq/L (5-15); Calcium 8.1 mg/dl (8.4-10.2); Carbon Dioxide 19 mmol/L (22.0-30.0); Glucose 116 mg/dl (74-100); Phosphorous 4.1 mg/dl (2.5-4.5)
== END ==
PROVIDERS: PCP Family Medicine; Visit Provider Internal Medicine Nephrology
DX: N18.4 Chronic kidney disease, stage 4 (severe) (principal)
CPT/HCPCS: 36415; 80069; 85014; 85018; 85048; 85049

== ENCOUNTER → 2022-04-10 10:45 | Outpatient (CLI) | payer MEDICARE, SELFPAY | PROVIDERS: PCP Family Medicine | DX: Z01.812 Encounter for preprocedural laboratory examination (principal); Z20.822 Contact with and (suspected) exposure to COVID-19 | CPT/HCPCS: C9803; U0003; U0005 ==

== ENCOUNTER → 2022-04-18 11:04 | Outpatient (CLI) | payer MEDICARE, SELFPAY | PROVIDERS: PCP Family Medicine; Visit Provider Ophthalmology | DX: Z01.812 Encounter for preprocedural laboratory examination (principal); Z20.822 Contact with and (suspected) exposure to COVID-19 | CPT/HCPCS: C9803; U0003; U0005 ==

== ENCOUNTER 2022-04-21 09:04 | Day surgery (SDC) | payer MEDICARE, SELFPAY ==
[2022-04-16 13:16] VITALS: BMI 32.2
[2022-04-21] VITALS (7 sets, daily range): BP systolic 129–156; BP diastolic 70–80; PULSE 59–70; RESP 18; TEMP 36.6; O2SAT 97–100
[2022-04-21 09:36] LABS: POC Glucose,Bedside 110 (70-110)
== END 2022-04-21 11:29 | disposition home or self-care (01) ==
LOC: OR 09:05
PROVIDERS: PCP Family Medicine; Visit Provider Ophthalmology
DX: H25.813 Combined forms of age-related cataract, bilateral (principal)
CPT/HCPCS: 66984; 82962; V2632

== ENCOUNTER → 2022-05-02 10:30 | Outpatient (CLI) | payer MEDICARE, SELFPAY | PROVIDERS: PCP Family Medicine; Visit Provider Ophthalmology | DX: Z01.812 Encounter for preprocedural laboratory examination (principal); Z20.822 Contact with and (suspected) exposure to COVID-19 | CPT/HCPCS: C9803; U0003; U0005 ==

== ENCOUNTER → 2022-05-08 10:21 | Outpatient (CLI) | payer MEDICARE, SELFPAY ==
[2022-05-08 10:37] LABS: Microscopic, Urine URINE MICROSCOPIC (MICROSCOPIC)
[2022-05-08 11:09] LABS: Appearance,Urine CLEAR (Clear); Bilirubin,Urine Negative (Negative); Blood, Urine 2+ (Negative); Color,Urine YELLOW (Yellow); Glucose,Urine (UA) Negative (Negative); Ketones,Urine Negative (Negative); Leukocyte Esterase,Urine 2+ (Negative); Nitrate,Urine POSITIVE (Negative); Protein,Urine 3+ (Negative); Specific Gravity, Urine 1.025 (1.005-1.030); Urobilinogen,Urine 0.2 EU/dl (0.2)
[2022-05-08 11:22] LABS: Creatinine,Urine Random 75 mg/dL (Not Estab.)
[2022-05-08 11:26] LABS: Bacteria,Urine Trace /lpf; Squamous Epithelial Cell,Urine Occasional #/hpf (0-5); WBC,Urine 50-100 #/hpf (0-3)
[2022-05-08 11:33] LABS: Hematocrit 31.4 % (42.0-52.0); Hemoglobin 9.7 g/dL (14.1-18.0); Mean Corpuscular HGB Conc 30.9 g/dL (31.8-35.4); Mean Corpuscular Hemoglobin 31.5 pg (27.0-31.2); Mean Corpuscular Volume 101.9 fl (80-94); Platelet Count 189 K/mm3 (142-424); Red Blood Count 3.08 M/mm3 (4.60-6.20); Red Cell Distribution Width 14.6 % (11.5-17.5); White Blood Count 5.1 K/mm3 (4.8-10.8)
[2022-05-08 11:49] LABS: Albumin Level 3.6 g/dl (3.5-5.0); Anion Gap 16.1 mEq/L (5-15); Blood Urea Nitrogen 54 mg/dl (9-20); Carbon Dioxide 15 mmol/L (22.0-30.0); Chloride 117 mmol/L (98-107); Estimated Glomerular Filt Rate 13 ml/min (>60); GFR (African American) 16 ML/MIN (>60); Glucose 110 mg/dl (74-100); Phosphorous 4.6 mg/dl (2.5-4.5); Potassium 4.1 mmoL/L (3.5-5.1); Sodium 144 mmol/L (136-145)
[2022-05-08 11:57] LABS: Total Iron Binding Capacity 241 ug/dL (261-462)
[2022-05-08 12:32] LABS: Ferritin 107 ng/ml (17.9-464)
== END ==
PROVIDERS: PCP Family Medicine; Visit Provider Internal Medicine Nephrology
DX: N18.4 Chronic kidney disease, stage 4 (severe) (principal); B96.5 Pseudomonas (aeruginosa) (mallei) (pseudomallei) as the cause of diseases classified elsewhere; R82.90 Unspecified abnormal findings in urine
CPT/HCPCS: 36415; 80069; 81001; 82570; 82728; 83550; 84155; 85014; 85018; 85048; 85049; 87086; 87088; 87186

== ENCOUNTER → 2022-05-11 13:39 | Outpatient (POV) | payer MEDICARE, SELFPAY | PROVIDERS: Visit Provider Internal Medicine Nephrology | DX: Z00.00 Encounter for general adult medical examination without abnormal findings (principal) ==

== ENCOUNTER → 2022-06-06 11:45 | Outpatient (CLI) | payer MEDICARE, SELFPAY | PROVIDERS: PCP Family Medicine; Visit Provider Ophthalmology | DX: Z01.812 Encounter for preprocedural laboratory examination (principal); Z20.822 Contact with and (suspected) exposure to COVID-19; H25.011 Cortical age-related cataract, right eye | CPT/HCPCS: C9803; U0003; U0005 ==

== ENCOUNTER 2022-06-09 09:44 | Day surgery (SDC) | payer MEDICARE, SELFPAY ==
[2022-04-29 10:14] VITALS: BMI 32.3
[2022-06-04 13:05] VITALS: BMI 32.2
[2022-06-09] VITALS (7 sets, daily range): BP systolic 147–162; BP diastolic 72–83; PULSE 54–86; RESP 18–20; TEMP 36.1–36.6; O2SAT 93–100
[2022-06-09 11:13] LABS: POC Glucose,Bedside 151 (70-110)
== END 2022-06-09 12:07 | disposition home or self-care (01) ==
LOC: OR 09:46
PROVIDERS: PCP Family Medicine; Visit Provider Ophthalmology
DX: H26.9 Unspecified cataract (principal); Z79.899 Other long term (current) drug therapy; E11.9 Type 2 diabetes mellitus without complications
CPT/HCPCS: 66984; 82962; V2632

== ENCOUNTER 2022-06-13 06:27 | Inpatient (IN) | payer MEDICARE, SELFPAY ==
[2022-06-13] VITALS (10 sets, daily range): BP systolic 162–181; BP diastolic 81–96; PULSE 79–100; RESP 20–32; TEMP 36.4–36.8; O2SAT 92–97; BMI 32.2; BMI 28.8
--- NOTE | 2022-06-13 06:22 | ECG_ITS ---
APPROVED REPORT Exam: Resting ECG HR:94 bpm ECG Measurements Heart Rate 94 AXES QRSd 107 QRS 25 QT 355 T 95 QTc 407 Conclusion ATRIAL FIBRILLATION WITH ABERRANT CONDUCTION OR VENTRICULAR PREMATURE COMPLEXES LOW QRS VOLTAGE IN EXTREMITY LEADS [QRS DEFLECTION < 0.5 mV IN LIMB LEADS] SEPTAL MYOCARDIAL INFARCTION , PROBABLY OLD [40+ ms Q WAVE IN V1/V2] ABNORMAL ECG UNCONFIRMED REPORT Electronically signed by : Benjamin Allen MD 06/13/2022 16:04:20
--- NOTE | 2022-06-13 06:34 | XR_ITS ---
PROCEDURE INFORMATION: Exam: XR Chest Exam date and time: 06/13/2022 6:54 AM Age: 71 years old Clinical indication: Shortness of breath; Additional info: SOA TECHNIQUE: Imaging protocol: Radiologic exam of the chest. Views: 1 view. COMPARISON: CR XR CHEST PORTABLE 10/24/2020 3:52 AM FINDINGS: Lungs: Opacities in the mid lung regions and both bases may represent atelectasis or pneumonia.. Pleural spaces: There may be moderate left pleural effusion.. Heart/Mediastinum: Cardiomegaly and vascular prominence may represent interstitial edema or congestive heart failure.. Bones/joints: Unremarkable. IMPRESSION: 1. Cardiomegaly and vascular prominence may represent interstitial edema or congestive heart failure.. 2. Opacities in the mid lung regions and both bases may represent atelectasis or pneumonia.. 3. There may be moderate left pleural effusion..
--- NOTE | 2022-06-13 06:37 | HMH.EDSOB ---
Discharge Plan Disposition Patient Disposition: Admitted As Inpatient Prescriptions Prescriptions: No Action cetirizine [24Hour Allergy] 10 mg tablet 10 mg PO DAILY PRN (Reason: allergies) carvedilol 3.125 mg tablet 3.125 mg PO BID furosemide 40 mg tablet 40 mg PO DAILY Proferrin ES 12 mg tablet 12 mg PO DAILY atorvastatin 40 MG tablet 40 mg PO DAILY amlodipine 10 MG tablet 10 mg PO DAILY promethazine-DM 120 ML syrup 5 ml PO Q6H PRN (Reason: Cough) zinc sulfate 220 MG capsule 220 mg PO DAILY Label Comments: TAKE 1 CAPSULE BY MOUTH ONCE DAILY glimepiride 2 MG tablet 2 mg PO DAILY cholecalciferol (vitamin D3) 1,250 MCG capsule 50,000 unit PO WEEKLY fenofibrate 160 MG tablet 160 mg PO DAILY multivitamin Tablet 1 tab PO DAILY vitamin G83-elton acid 500-400 mcg Tablet 1 tab PO DAILY Rx Instructions: administer with a meal Clinical Impressions Clinical Impression: Chronic a-fib, Pneumonia due to COVID-19 virus, Renal failure (ARF), acute on chronic, Congestive heart failure, Diabetes Discharge ED Provider: Osiel Henriquez Resp/SOB HPI General Chief Complaint: Shortness of Breath/Dyspnea Stated Complaint: SOA Time Seen by Provider: 06/13/22 06:37 Mode of Arrival: EMS Source of Information: Patient and EMS Limitations: No Limitations Description of Symptoms (Recalled from ER Triage Doc. by RN): Pt c/o SOA for a week but tonight it became severe. Pt arrived via EMS on 100% non-rebreather with O2 sat of 94%. EMS reports he was 80% on RA and was given a duo-kimberly in route. History of Present Illness pt with progressive sob over the last week MD Complaint: shortness of breath and cough Onset (ago): day(s) Severity: moderate Associated symptoms: denies other symptoms Related Data Home Medications Medication Instructions Recorded Confirmed cetirizine 10 mg tablet (24Hour 10 mg PO DAILY PRN allergies 05/23/18 06/09/22 Allergy) carvedilol 3.125 mg tablet 3.125 mg PO BID Hypertension 07/20/19 06/09/22 furosemide 40 mg tablet 40 mg PO DAILY Fluid 03/01/20 06/09/22 iron heme polypeptide 12 mg tablet 12 mg PO DAILY anemia 03/01/20 06/09/22 (Proferrin ES) amlodipine 10 mg tablet 10 mg PO DAILY Hypertension 09/30/20 06/09/22 atorvastatin 40 mg tablet 40 mg PO DAILY Cholesterol 09/30/20 06/09/22 cholecalciferol (vitamin D3) 1,250 50,000 unit PO WEEKLY Supplement 10/01/20 06/09/22 mcg (50,000 unit) capsule glimepiride 2 mg tablet 2 mg PO DAILY Diabetes 10/01/20 06/09/22 promethazine-DM 6.25 mg-15 mg/5 mL 5 ml PO Q6H PRN Cough 10/01/20 06/09/22 oral syrup zinc sulfate 50 mg zinc (220 mg) 220 mg PO DAILY Supplement 10/01/20 06/09/22 capsule fenofibrate 160 mg tablet 160 mg PO DAILY Cholesterol 10/18/20 06/09/22 multivitamin 1 tab PO DAILY Supplement 06/04/22 06/09/22 vitamin B12 500 mcg-folic acid 400 1 tab PO DAILY Supplement 06/04/22 06/09/22 mcg tablet Allergies Allergy/AdvReac Type Severity Reaction Status Date / Time No Known Allergies Allergy Verified 06/09/22 10:31 [facility] Medical History (Updated 06/13/22 @ 09:34 by Osiel Henriquez MD) Cataract Diabetes mellitus, type 2 Dialysis patient Dyspnea History of COVID-19 Sleep apnea Urinary tract infection Surgical History (Updated 06/09/22 @ 10:31 by Tati Temple RN) No significant past surgical history Family History No significant family history Social History Smoking Status: Former smoker pack-years: 25 second hand exposure: No alcohol intake: never counseling provided: none substance use type: denies use current occupational status: retired Travel in the last 8 weeks: None household members: family housing: house current occupational exposures/hazards: No caffeine: Yes ROS Obtained: Yes All systems rev
[2022-06-13 06:44] LABS: ABG Base Excess -6.6 mmol/L (-2.4-2.3); ABG HCO3 18.5 mmhg (22.0-26.0); ABG Oxygen Saturation 94 % (90-100); ABG PCO2 31.8 mmhg (35.0-45.0); ABG PH 7.38 mmol/L (7.35-7.45); ABG PO2 78.5 mmhg (80-100); ABG TCO2 19.5 mmhg (23-27)
[2022-06-13 06:45] LABS: Basophils # 0.1 K/mm3 (0-0.2); Basophils % 0.3 % (0.1-2.0); Eosinophils # 0.6 K/mm3 (0.0-0.4); Eosinophils % 3.1 % (0.1-12.0); Hematocrit 31.1 % (42.0-52.0); Hemoglobin 10.6 g/dL (14.1-18.0); Lymphocytes # 0.8 K/mm3 (0.7-4.5); Lymphocytes % 4.5 % (10-50); Mean Corpuscular Hemoglobin 33.3 pg (27.0-31.2); Mean Corpuscular Volume 97.8 fl (80-94); Mean Platelet Volume 10.2 fl (7.4-10.4); Monocytes # 0.9 K/mm3 (0.1-1.0); Monocytes % 5.2 % (1.7-9.3); Neutrophils # 15.4 K/mm3 (1.8-7.8); Neutrophils % 86.9 % (37.0-80.0); Platelet Count 237 K/mm3 (142-424); Red Blood Count 3.18 M/mm3 (4.60-6.20); White Blood Count 17.7 K/mm3 (4.8-10.8)
[2022-06-13 06:47] LABS: Chloride 114 mmol/L (98-107)
[2022-06-13 06:48] LABS: MANUAL DIFFERENTIAL MANUAL DIFFERENTIAL (MANUAL DIFF); Potassium 5.1 mmoL/L (3.5-5.1); Sodium 147 mmol/L (136-145)
[2022-06-13 06:51] LABS: Anion Gap 21.1 mEq/L (5-15); Blood Urea Nitrogen 73 mg/dl (9-20); Calcium 7.6 mg/dl (8.4-10.2); Carbon Dioxide 17 mmol/L (22.0-30.0); Creatinine Clearance Estimated 26 mL/min (50-200); Estimated Glomerular Filt Rate 14 ml/min (>60); GFR (African American) 16 ML/MIN (>60); Glucose 152 mg/dl (74-100)
[2022-06-13 07:01] LABS: Lymphocytes % 4 % (10-50); Monocytes % 7 % (2-9); Neutrophils % 89 % (42-76); Total Cells Counted 100
[2022-06-13 07:02] LABS: Acanthocytes 1+; Anisocytosis 1+; Macrocytosis 1+; Ovalocytes 1+; Platelet Estimate Normal; Poikilocytosis 1+
[2022-06-13 07:03] LABS: Troponin I 0.02 ng/ml (0.00-0.034)
--- NOTE | 2022-06-13 07:14 | PC.NURSE ---
critical result called from lab
--- NOTE | 2022-06-13 07:32 | PC.NURSE ---
lab called for lab draw
[2022-06-13 07:36] LABS: Influenza A, PCR Not Detected (NotDetected); Influenza B, PCR Not Detected (NotDetected)
[2022-06-13 07:44] LABS: Procalcitonin 0.357 ng/mL (0.0-2.0)
[2022-06-13 07:45] LABS: Alanine Aminotransferase 39 U/L (12-78); Albumin Level 3.8 g/dl (3.5-5.0); Alkaline Phosphatase 169 U/L (38-126); Aspartate Amino Transferase 53 U/L (17-59); Bilirubin,Direct 0.8 mg/dl (0.0-0.4); Bilirubin,Indirect 0.6 mg/dL (0.0-0.9); Bilirubin,Total 1.4 mg/dl (0.2-1.3); Bilirubin,Unconjugated 0.6 mg/dL (0.0-1.1); Total Protein,Serum 7.1 g/dl (6.3-8.2)
--- NOTE | 2022-06-13 07:45 | PC.NURSE ---
u/s guided IV attempted x1 without success. lab at the bedside for blood collection
[2022-06-13 07:52] LABS: NT Pro Brain Natriuretic Pep. 12300 pg/mL (0-125)
[2022-06-13 07:56] LABS: C-Reactive Protein 39.2 mg/L (0-4)
[2022-06-13 07:58] LABS: Magnesium 0.8 mg/dl (1.6-2.3)
--- NOTE | 2022-06-13 07:58 | PC.NURSE ---
dr gonzalez informed of pt's critical mag. level of 0.8
--- NOTE | 2022-06-13 08:00 | PC.NURSE ---
vital signs delayed d/t pt care
[2022-06-13 08:01] LABS: Coronavirus 19, PCR Detected (NotDetected)
[2022-06-13 08:01] LABS: Erythrocyte Sedimentation Rate 75 mm/hr (0-20)
--- NOTE | 2022-06-13 08:16 | PC.NURSE ---
prior to medication administration, IV obtained. medication given IV. pot sitting in a chair per request for comfort.
[2022-06-13 08:20] LABS: Lactic Acid 0.8 mmol/L (0.7-2.1)
--- NOTE | 2022-06-13 09:03 | PC.NURSE ---
notified of pt meeting SIRS criteria and elevated white count. states he does not want to give abx at this time or add any additional orders.
--- NOTE | 2022-06-13 09:24 | PC.NURSE ---
350 ml urine output
--- NOTE | 2022-06-13 09:25 | PC.NURSE ---
speaking to dr norton
--- NOTE | 2022-06-13 09:27 | PC.NURSE ---
called housekeeper cleaning cooking for admission
--- NOTE | 2022-06-13 09:28 | PC.NURSE ---
abx order placed by . pharmacy states they will bring it down
--- NOTE | 2022-06-13 09:42 | PC.NURSE ---
levofloxacin 250mg stopped per pharmacy and levofloxacin 750mg order to be placed by setfani in pharmacy
--- NOTE | 2022-06-13 09:45 | PC.NURSE ---
pt son called i updated him on being admitted and status.
--- NOTE | 2022-06-13 09:53 | PC.NURSE ---
lab called to collect troponin
--- NOTE | 2022-06-13 09:59 | PC.NURSE ---
called report to edvin armstrong rn
--- NOTE | 2022-06-13 10:12 | PC.NURSE ---
lab collected troponin
--- NOTE | 2022-06-13 10:28 | PC.NURSE ---
patient arrived to floor from ED by wheelchair
--- NOTE | 2022-06-13 10:44 | P.CONPHA_ITS ---
[facility] Pharmacy VTE Monitoring Patient Demographics Admission date: 06/13/22 Report Date: 06/13/22 Time: 10:45 Patient Allergies No Known Allergies Allergy (Verified 06/09/22 10:31) Height: 1.93 m Weight: 120.202 kg Current Active Problems (Updated 06/13/22 @ 09:34 by Osiel Henriquez MD) Diabetes (Chronic ~02/23/17) Chronic a-fib (Chronic) Pneumonia due to COVID-19 virus (Acute) Renal failure (ARF), acute on chronic (Acute) Congestive heart failure (Acute) VTE Risk Labs: VTE Related Lab Results Hgb 10.6 g/dL (14.1-18.0) L 06/13/22 06:30 Hct 31.1 % (42.0-52.0) L 06/13/22 06:30 Plt Count 237 K/mm3 (142-424) 06/13/22 06:30 BUN 73 mg/dl (9-20) H 06/13/22 06:30 Creatinine 4.30 mg/dl (0.66-1.25) H 06/13/22 06:30 Estimated Creat Clear 26 mL/min (50-200) 06/13/22 06:30 VTE Score: 3 VTE Risk Level: Low Risk Prophylaxis VTE Prophylaxis Ordered?: Yes Types of VTE Prophylaxis: TEDS Knee High Location of Applied Device: Bilateral Lower Extremeties
[2022-06-13 11:12] LABS: Troponin I 0.02 ng/ml (0.00-0.034)
[2022-06-13 11:52] LABS: POC Glucose,Bedside 141 (70-110)
[2022-06-13 13:36] LABS: Troponin I 0.02 ng/ml (0.00-0.034)
[2022-06-13 16:48] LABS: POC Glucose,Bedside 130 (70-110)
--- NOTE | 2022-06-13 17:30 | EXP.HP ---
History of Present Illness *Admission Date: 06/13/22 *Reason for visit:: shortness of breath *History of present illness: Mr. Saldana is a 28-year-old white male with a history of hypertension, diabetes, and stage IV chronic kidney disease who presented to the emergency room last evening with progressive shortness of breath over the past 2 to 3 days. He does not wear oxygen at home but does have a pulse oximeter which was reading 84% prior to coming to the hospital. On evaluation emergency room, he was found to have an elevated white count of 17,000 and his chest x-ray showed midlung and bibasilar opacities consistent with atelectasis versus pneumonia. His COVID test was positive. Of note he had a negative COVID test 4 days ago prior to his cataract surgery. Additional laboratory data was remarkable for an elevated BUN of 73 and creatinine of 4.3 with magnesium of 0.8. BNP is elevated at 12,000. He was 2 g of IV magnesium in the ER and empirically started on Levaquin because of his elevated white count. He has been admitted for further observation and treatment. He is currently satting in the mid 90s with a Venturi mask and is comfortable. Test is significant for having a severe case of COVID in September 2020 for which he was hospitalized at for about 2 months and subsequently spent 5 months in a shelter facility. He required renal replacement therapy during that time. Since then he has followed closely with nephrology and had an AV fistula placed about 2 months ago in preparation for dialysis when needed. [facility] Medical History (Updated 06/13/22 @ 18:03 by Arturo Sherman MD) Cataract Diabetes mellitus, type 2 Dialysis patient Dyspnea History of COVID-19 Sleep apnea Urinary tract infection Surgical History No significant past surgical history Family History No significant family history Social History (Updated 06/13/22 @ 10:38 by Laure Dinero RN) Smoking Status: Former smoker pack-years: 25 second hand exposure: No alcohol intake: never counseling provided: none substance use type: denies use current occupational status: retired Travel in the last 8 weeks: None household members: family housing: house current occupational exposures/hazards: No caffeine: Yes Review of Systems Constitutional Constitutional: Reports weakness Eyes Eyes: Reports system reviewed and no additional complaints, except as documented ENT Ears, Nose, Mouth, and Throat: Reports system reviewed and no additional complaints, except as documented, Denies dizziness and Denies dysphagia *Cardiovascular Cardiovascular: Denies chest pain, Reports dyspnea, Reports dyspnea on exertion, Denies irregular heart rhythm and Reports leg edema *Respiratory Respiratory: Reports cough, Reports dyspnea, Reports dyspnea on exertion, Reports hemoptysis and Denies pain on inspiration *Gastrointestinal Gastrointestinal: Denies abdominal pain, Denies change in stool character, Denies dysphagia and Denies vomiting *Genitourinary Genitourinary: Denies dysuria and Denies urinary incontinence *Musculoskeletal Musculoskeletal: Reports arthralgias, Denies joint swelling and Denies muscle weakness Integumentary/Breasts Skin/Breast: Denies change in pigmentation and Denies rash *Neurologic Neurologic: Denies dizziness and Reports weakness Meds Home Medications and Allergies Home Medications Medication Instructions Recorded Confirmed Type cetirizine 10 mg tablet (24Hour 10 mg PO DAILYP PRN allergies 05/23/18 06/13/22 History Allergy) carvedilol 3.125 mg tablet 3.125 mg PO BID Hypertension 07/20/19 06/13/22 History furosemide 40 mg tablet 40 mg PO DAILY Fluid 03/01/20 06/13/22 History iron heme polypeptide 12 mg tablet 12 mg PO DAILY anemia 03/01/20 06/13/22 History (Sunshine ES) amlodipine 10 mg tablet 10 mg PO DA
--- NOTE | 2022-06-13 18:09 | PC.NURSE ---
Patient VSS, O2 >95% on Venti mask at 50% - decreased Venti to 35% with O2 at 88%, increased to 40% O2 sat >90%, B/L middle and lower lobes have diminished lung sounds no wheezing noted. Has been resting and turning self from side to side. Arrived to floor with 4+ pitting edema administered Lasix 80mg IV - still 3+ pitting edema, patient is drinking fluids. Per Dr. Sherman continue to hold NS IV fluids at this time. No acute distress noted, call light within reach, bed at lowest level for safety.
[2022-06-13 21:09] LABS: POC Glucose,Bedside 122 (70-110)
[2022-06-14] VITALS: BP 167/86; PULSE 90; RESP 22; TEMP 36.7; O2SAT 91
--- NOTE | 2022-06-14 03:19 | PC.NURSE ---
Pt alert and oriented x 4. Pt is on 40% venti mask. Lungs sounds - rhonchi. Productive, intermittent cough. Pt called out around midnight stating he was SOA, and anxious. Pt requesting anxiety medication. Helped pt sit up on side of bed, increased to venti to 50% for comfort. Encouraged slow, deep breaths. Called rn bone marrow transplant provider for orders. New orders received and carried out by this RN. After medication administration and sitting up for a while, pt states he feels better. Pt assisted back in bed and resting comfortably. O2 sat has been between 88-93% on 40% venti. Pt voiding per urinal. Call light in reach. Maintaining airborne/contact precautions. No needs voiced at this time.
[2022-06-14 04:00] VITALS: BP 155/77; PULSE 91; RESP 20; TEMP 36.7; O2SAT 93
[2022-06-14 04:51] VITALS: BMI 30.4
[2022-06-14 06:07] LABS: POC Glucose,Bedside 112 (70-110)
--- NOTE | 2022-06-14 06:48 | PC.NURSE ---
Addendum entered by Bee Temple RN 06/14/22 06:49: 85-88% on 40% Original Note: late entry - O2 sat staying around 85-89% on 40% venti. Turned pt back up to 50% venti. O2 sat 89-91%.
--- NOTE | 2022-06-14 07:02 | PC.NURSE ---
late entry - specimen cup taken to pt bedside and explained to pt need for sputum sample. pt verbalized understanding.
[2022-06-14 07:47] LABS: Basophils % 0.2 % (0.1-2.0); Eosinophils # 0.1 K/mm3 (0.0-0.4); Eosinophils % 1.1 % (0.1-12.0); Hematocrit 25.1 % (42.0-52.0); Hemoglobin 8.2 g/dL (14.1-18.0); Lymphocytes # 0.7 K/mm3 (0.7-4.5); Lymphocytes % 6.9 % (10-50); Mean Corpuscular HGB Conc 32.6 g/dL (31.8-35.4); Mean Corpuscular Hemoglobin 31.7 pg (27.0-31.2); Mean Corpuscular Volume 97.2 fl (80-94); Mean Platelet Volume 11.1 fl (7.4-10.4); Monocytes # 0.7 K/mm3 (0.1-1.0); Monocytes % 7.1 % (1.7-9.3); Neutrophils # 8.7 K/mm3 (1.8-7.8); Neutrophils % 84.8 % (37.0-80.0); Platelet Count 155 K/mm3 (142-424); Red Blood Count 2.58 M/mm3 (4.60-6.20); Red Cell Distribution Width 14.9 % (11.5-17.5); White Blood Count 10.3 K/mm3 (4.8-10.8)
[2022-06-14 08:00] LABS: Chloride 111 mmol/L (98-107); Potassium 4.6 mmoL/L (3.5-5.1); Sodium 144 mmol/L (136-145)
[2022-06-14 08:03] LABS: Anion Gap 18.6 mEq/L (5-15); Blood Urea Nitrogen 76 mg/dl (9-20); Calcium 7.5 mg/dl (8.4-10.2); Carbon Dioxide 19 mmol/L (22.0-30.0); Creatinine Clearance Estimated 24 mL/min (50-200); Estimated Glomerular Filt Rate 13 ml/min (>60); GFR (African American) 16 ML/MIN (>60); Glucose 99 mg/dl (74-100)
[2022-06-14 08:17] VITALS: BP 154/80; PULSE 78; RESP 18; TEMP 36.7; O2SAT 91
--- NOTE | 2022-06-14 08:20 | PC.NURSE ---
Reported critical values magnesium 1.0 and creatinine 4[address] Sherman on the floor during am rounding.
--- NOTE | 2022-06-14 08:57 | EXP.PN ---
Subjective *Date: 06/14/22 *Time: 08:57 Interval history: States he rested a little better last night and feels better this morning. Less short of breath. He continues on Venturi mask at 50% with sats maintaining greater than 90%. Exam Data for Last 24 hours Vital signs and Labs for Last 24 Hours: Temp Pulse Resp BP Pulse Ox FiO2 98.1 F 78 18 154/80 H 91 L 40 06/14/22 08:17 06/14/22 08:17 06/14/22 08:17 06/14/22 08:17 06/14/22 08:17 06/13/22 20:00 Laboratory Results - last 24 hr 06/13/22 10:11: Troponin I 0.02 06/13/22 11:46: POC Glucose 141 H 06/13/22 12:55: Troponin I 0.02 06/13/22 16:40: POC Glucose 130 H 06/13/22 20:59: POC Glucose 122 H 06/14/22 05:59: POC Glucose 112 H 06/14/22 06:37: Sodium 144, Potassium 4.6, Chloride 111 H, Carbon Dioxide 19 L, Anion Gap 18.6 H, BUN 76 H, Creatinine 4.40 H, Estimated Creat Clear 24, Estimated GFR 13 L*, Est GFR ( Amer) 16 L*, Glucose 99, Calcium 7.5 L, Magnesium 1.0 L D 06/14/22 06:37: WBC 10.3 D, RBC 2.58 L, Hgb 8.2 L, Hct 25.1 L, MCV 97.2 H, MCH 31.7 H, MCHC 32.6, RDW 14.9, Plt Count 155 D, MPV 11.1 H, Neut % (Auto) 84.8 H, Lymph % (Auto) 6.9 L, Tyrrell % (Auto) 7.1, Eos % (Auto) 1.1, Baso % (Auto) 0.2, Neut # (Auto) 8.7 H, Lymph # (Auto) 0.7, Tyrrell # (Auto) 0.7, Eos # (Auto) 0.1, Baso # (Auto) 0.0 I & O for Last 24 hours: Intake & Output 06/11/22 06/12/22 06/13/22 06/14/22 11:59 11:59 11:59 11:59 Intake Total 1290 / 1290 Output Total 2980 / 2980 Balance -1690 / -1690 Weight 236 lb 5 oz 249 lb 8 oz Constitutional Comments: He appears in no respiratory distress. Color is good. Chest with coarse breath sounds. No rales or wheezes. Heart tones distant but regular. Extremities with 2+ edema. Assessment and Plan *Assessment and plan (1) COVID-19 virus infection: Status: Acute Category: Medical Code(s): U07.1 - COVID-19 (2) Acute respiratory failure due to COVID-19: Status: Acute Category: Medical Code(s): U07.1 - COVID-19; J96.00 - Acute respiratory failure, unspecified whether with hypoxia or hypercapnia (3) Pneumonia: Status: Acute Qualifiers: Laterality: bilateral Lung location: lower lobe of lung Pneumonia type: due to unspecified organism Qualified Code(s): J18.9 - Pneumonia, unspecified organism Category: Medical Code(s): J18.9 - Pneumonia, unspecified organism (4) Diabetes: Status: Chronic Category: Medical Code(s): E11.9 - Type 2 diabetes mellitus without complications (5) Hyperlipidemia: Status: Chronic Qualifiers: Hyperlipidemia type: other hyperlipidemia Qualified Code(s): E78.49 - Other hyperlipidemia Category: Medical Code(s): E78.5 - Hyperlipidemia, unspecified (6) CKD (chronic kidney disease) stage 4, GFR 15-29 ml/min: Status: Acute Category: Medical Code(s): N18.4 - Chronic kidney disease, stage 4 (severe) (7) Chronic a-fib: Status: Chronic Category: Medical Code(s): I48.20 - Chronic atrial fibrillation, unspecified (8) Hypomagnesemia: Status: Acute Category: Medical Code(s): E83.42 - Hypomagnesemia Plan WBC is normal. BUN and creatinine remain elevated but stable. Magnesium low at 1.0. Continue with magnesium replacement with oral supplement. Encourage out of bed activity.
[2022-06-14 11:31] LABS: POC Glucose,Bedside 131 (70-110)
[2022-06-14 12:10] VITALS: BP 151/80; PULSE 85; RESP 20; TEMP 36.6; O2SAT 93
[2022-06-14 16:00] VITALS: BP 143/61; PULSE 77; RESP 20; TEMP 36.6; O2SAT 94
--- NOTE | 2022-06-14 17:01 | PC.NURSE ---
Patient remains on 50% venti mask and not able to be weaned from oxygen this shift. Patient oxygen saturations between 86-91% during the shift. VS stable. Lungs sounds exhibit inspiratory rhonchi throughout. No other changes noted.
[2022-06-14 18:54] LABS: POC Glucose,Bedside 146 (70-110)
[2022-06-14 20:00] VITALS: BP 158/88; PULSE 71; RESP 20; TEMP 36.6; O2SAT 88
[2022-06-14 20:40] LABS: POC Glucose,Bedside 149 (70-110)
[2022-06-15] VITALS (8 sets, daily range): BP systolic 148–183; BP diastolic 76–96; PULSE 67–84; RESP 20–26; TEMP 36.3–36.9; O2SAT 90–99; BMI 30.4
--- NOTE | 2022-06-15 03:15 | PC.NURSE ---
Pt continues on venti mask at 50%, with O2 sat ranging between 88-95%. Pt has +2 edema in bilateral lower extremities. Lungs sounds - rhonchi, diminished. At beginning of shift, pt requesting anxiety medication. Dr. Sherman contacted. New orders received. Pt has rested in intervals. Pt currently sitting up to chair. Pt has been using urinal independently. Checking blood glucose ACHS. No coverage needed so far. Call light in reach, bed in lowest position. No needs voiced at this time.
[2022-06-15 06:14] LABS: POC Glucose,Bedside 135 (70-110)
[2022-06-15 06:18] LABS: Basophils % 0.1 % (0.1-2.0); Eosinophils # 0.2 K/mm3 (0.0-0.4); Hematocrit 27.1 % (42.0-52.0); Hemoglobin 8.7 g/dL (14.1-18.0); Lymphocytes # 0.8 K/mm3 (0.7-4.5); Lymphocytes % 8.3 % (10-50); Mean Corpuscular HGB Conc 32.1 g/dL (31.8-35.4); Mean Corpuscular Hemoglobin 31.6 pg (27.0-31.2); Mean Corpuscular Volume 98.4 fl (80-94); Monocytes # 0.8 K/mm3 (0.1-1.0); Monocytes % 8.9 % (1.7-9.3); Neutrophils # 7.4 K/mm3 (1.8-7.8); Neutrophils % 80.6 % (37.0-80.0); Platelet Count 175 K/mm3 (142-424); Red Blood Count 2.75 M/mm3 (4.60-6.20); Red Cell Distribution Width 14.8 % (11.5-17.5); White Blood Count 9.2 K/mm3 (4.8-10.8)
[2022-06-15 06:29] LABS: Chloride 108 mmol/L (98-107); Potassium 4.3 mmoL/L (3.5-5.1); Sodium 143 mmol/L (136-145)
[2022-06-15 06:32] LABS: Blood Urea Nitrogen 77 mg/dl (9-20); Creatinine Clearance Estimated 24 mL/min (50-200); Estimated Glomerular Filt Rate 13 ml/min (>60); GFR (African American) 16 ML/MIN (>60)
[2022-06-15 06:33] LABS: Anion Gap 18.3 mEq/L (5-15); Calcium 7.8 mg/dl (8.4-10.2); Carbon Dioxide 21 mmol/L (22.0-30.0); Glucose 131 mg/dl (74-100)
--- NOTE | 2022-06-15 07:46 | EXP.PN ---
Subjective *Date: 06/15/22 *Time: 08:45 Interval history: Patient states he sleeps very little due to a cough which is mostly nonproductive. He does better when he sits up in a chair. He states he ate well for breakfast. He is voiding QS. He remains on oxygen per Ventimask at 50%. O2 sats in the low 90s. Renal function is stable at 4.40. Exam Data for Last 24 hours Vital signs and Labs for Last 24 Hours: Temp Pulse Resp BP Pulse Ox FiO2 97.9 F 79 20 160/89 H 91 L 50 06/15/22 04:00 06/15/22 04:00 06/15/22 04:00 06/15/22 04:00 06/15/22 04:00 06/14/22 20:00 Laboratory Results - last 24 hr 06/14/22 06:37: Sodium 144, Potassium 4.6, Chloride 111 H, Carbon Dioxide 19 L, Anion Gap 18.6 H, BUN 76 H, Creatinine 4.40 H, Estimated Creat Clear 24, Estimated GFR 13 L*, Est GFR ( Amer) 16 L*, Glucose 99, Calcium 7.5 L, Magnesium 1.0 L D 06/14/22 06:37: WBC 10.3 D, RBC 2.58 L, Hgb 8.2 L, Hct 25.1 L, MCV 97.2 H, MCH 31.7 H, MCHC 32.6, RDW 14.9, Plt Count 155 D, MPV 11.1 H, Neut % (Auto) 84.8 H, Lymph % (Auto) 6.9 L, [place] % (Auto) 7.1, Eos % (Auto) 1.1, Baso % (Auto) 0.2, Neut # (Auto) 8.7 H, Lymph # (Auto) 0.7, [place] # (Auto) 0.7, Eos # (Auto) 0.1, Baso # (Auto) 0.0 06/14/22 11:24: POC Glucose 131 H 06/14/22 16:27: POC Glucose 146 H 06/14/22 20:31: POC Glucose 149 H 06/15/22 05:45: POC Glucose 135 H 06/15/22 06:02: WBC 9.2, RBC 2.75 L, Hgb 8.7 L, Hct 27.1 L, MCV 98.4 H, MCH 31.6 H, MCHC 32.1, RDW 14.8, Plt Count 175, MPV 10.0, Neut % (Auto) 80.6 H, Lymph % (Auto) 8.3 L, [place] % (Auto) 8.9, Eos % (Auto) 2.0, Baso % (Auto) 0.1, Neut # (Auto) 7.4, Lymph # (Auto) 0.8, [place] # (Auto) 0.8, Eos # (Auto) 0.2, Baso # (Auto) 0.0 06/15/22 06:02: Sodium 143, Potassium 4.3, Chloride 108 H, Carbon Dioxide 21 L, Anion Gap 18.3 H, BUN 77 H, Creatinine 4.40 H, Estimated Creat Clear 24, Estimated GFR 13 L*, Est GFR ( Amer) 16 L*, Glucose 131 H D, Calcium 7.8 L I & O for Last 24 hours: Intake & Output 06/12/22 06/13/22 06/14/22 06/15/22 11:59 11:59 11:59 11:59 Intake Total 1290 / 1290 720 / 720 Output Total 3305 / 3305 1225 / 1225 Balance -2014 / -2015 -505 / -505 Weight 236 lb 5 oz 249 lb 8 oz 249 lb 7.989 oz Microbiology Reports for the Last 24 Hours: Microbiology 06/13/22 10:41 Sputum - Expectorated Sputum Gram Stain - Final Constitutional Constitutional: no acute distress Comments: Sitting in recliner at bedside and has completed his breakfast. He is looking at his iPhone. *Routine Respiratory Exam Respiratory: Present decreased breath sounds (Posteriorly) and CTA bilaterally (Anteriorly and posteriorly) *Routine Cardiovascular Exam Cardiovascular: Present RRR *Routine Extremities Exam Extremities: Present edema (Bilateral) and BIJAN stockings *Routine Neurological Exam Neurological: Present alert and oriented X3 Assessment and Plan *Assessment and plan (1) Hypomagnesemia: Status: Acute Category: Medical Code(s): E83.42 - Hypomagnesemia (2) CKD (chronic kidney disease) stage 4, GFR 15-29 ml/min: Status: Acute Category: Medical Code(s): N18.4 - Chronic kidney disease, stage 4 (severe) (3) COVID-19 virus infection: Status: Acute Category: Medical Code(s): U07.1 - COVID-19 (4) Congestive heart failure: Status: Acute Category: Medical Code(s): I50.9 - Heart failure, unspecified (5) Atrial fibrillation with slow ventricular response: Status: Acute Category: Medical Code(s): I48.91 - Unspecified atrial fibrillation (6) Edema: Status: Chronic Qualifiers: Edema type: generalized Qualified Code(s): R60.1 - Generalized edema Category: Medical Code(s): R60.9 - Edema, unspecified (7) Community acquired pneumonia: Status: Acute Qualifiers: Laterality: right Lung location: unspecified part of lung Qualified Code(s): J18.9 - Pneumonia, unspecified organ
--- NOTE | 2022-06-15 10:30 | HMH.PHAINT1 ---
Pharmacy Intervention Comments: MEDICATION RECONCILIATION COMPLETED ON PATIENT USING EXTERNAL FILL HISTORY FROM PHARMACY AND LIST FROM [facility] OFFICE. -JAMIR MARTINEZD
[2022-06-15 11:40] LABS: POC Glucose,Bedside 169 (70-110)
--- NOTE | 2022-06-15 15:11 | PC.NURSE ---
AOX4, ABLE TO MAKE NEEDS KNOWN TO STAFF. HAS SPENT MOST OF SHIFT UP TO CHAIR TOLERATED WELL. USES URINAL INDEPENDENTLY FOR ELIMINATION. O2 SATS HAVE BEEN MAINTAINED WITH VENTI MASK @ 50%. RIGHT LIMB ALERT WITH FISTULA IN PLACE.
[2022-06-15 17:34] LABS: POC Glucose,Bedside 138 (70-110)
[2022-06-15 21:19] LABS: POC Glucose,Bedside 212 (70-110)
[2022-06-16] VITALS (9 sets, daily range): BP systolic 108–169; BP diastolic 56–86; PULSE 65–84; RESP 17–26; TEMP 36.4–37.2; O2SAT 90–99; BMI 30.4
[2022-06-16 05:48] LABS: POC Glucose,Bedside 105 (70-110)
--- NOTE | 2022-06-16 05:51 | PC.NURSE ---
NO ACUTE CHANGES SINCE PREVIOUS ASSESSMENT. PT HAS SLEPT INTERMITTENTLY THIS SHIFT. LUNG SOUNDS REMAIN DIMINISHED. REMAINS ON VENTI MASK AND IS TOLERATING WELL. SATS AT REST ARE 90-95%. PT NESBITT DESAT WITH ACTIVITY BUT QUICKLY RECOVERS. PT STATES HE FEEL, PRETTY GOOD THIS AM. BLE EDEMA REMAINS 3+ AND PITTING. NO C/O SOB, OR CP THIS SHIFT. NO N/V/D. VSS.
--- NOTE | 2022-06-16 08:20 | EXP.PN ---
Subjective *Date: 06/16/22 *Time: 08:50 Interval history: Patient states he is doing a little bit better. He sits up in the chair and sleeps. O2 sats are 99% on Ventimask at 50%. He denies chest pain. He still has a bit of edema in his legs. Exam Data for Last 24 hours Vital signs and Labs for Last 24 Hours: Temp Pulse Resp BP Pulse Ox FiO2 97.7 F 84 17 161/86 H 99 50 06/16/22 07:31 06/16/22 07:31 06/16/22 07:31 06/16/22 07:31 06/16/22 07:31 06/15/22 18:44 Laboratory Results - last 24 hr 06/15/22 10:14: POC Glucose 169 H 06/15/22 17:26: POC Glucose 138 H 06/15/22 21:09: POC Glucose 212 H 06/16/22 05:40: POC Glucose 105 I & O for Last 24 hours: Intake & Output 06/13/22 06/14/22 06/15/22 06/16/22 11:59 11:59 11:59 11:59 Intake Total 1290 / 1290 1000 / 1000 960 / 960 Output Total 3305 / 3305 1625 / 1625 1800 / 1800 Balance -2015 / -2015 -625 / -625 -840 / -840 Weight 236 lb 5 oz 249 lb 8 oz 249 lb 7.989 oz 249 lb 7.954 oz Microbiology Reports for the Last 24 Hours: Microbiology 06/13/22 10:41 Sputum - Expectorated Sputum Gram Stain - Final 06/13/22 10:41 Sputum - Expectorated Sputum Sputum Culture - Preliminary 06/13/22 08:00 Blood Blood Culture - Preliminary NO GROWTH AFTER 48 HOURS 06/13/22 08:00 Blood Blood Culture - Preliminary NO GROWTH AFTER 48 HOURS Constitutional Constitutional: no acute distress Comments: Sitting up in comfort chair. He is completing his breakfast. *Routine Respiratory Exam Respiratory: Present decreased breath sounds (Posterior), rhonchi and wheezes (Scattered) *Routine Cardiovascular Exam Cardiovascular: Present RRR and murmur *Routine Abdominal Exam Abdominal: Present soft and normoactive bowel sounds; Absent tenderness *Routine Extremities Exam Extremities: Present edema (Bilateral) *Routine Neurological Exam Neurological: Present alert and oriented X3 Assessment and Plan *Assessment and plan (1) CKD (chronic kidney disease) stage 4, GFR 15-29 ml/min: Status: Acute Category: Medical Code(s): N18.4 - Chronic kidney disease, stage 4 (severe) (2) COVID-19 virus infection: Status: Acute Category: Medical Code(s): U07.1 - COVID-19 (3) Hypertensive disorder: Status: Chronic Qualifiers: Hypertension type: essential hypertension Qualified Code(s): I10 - Essential (primary) hypertension Category: Medical Code(s): I10 - Essential (primary) hypertension (4) Diabetes: Status: Chronic Category: Medical Code(s): E11.9 - Type 2 diabetes mellitus without complications (5) CAD (coronary artery disease): Status: Chronic Qualifiers: Associated angina: without angina Coronary Disease-Associated Artery/Lesion type: [place] artery [place] vs. transplanted heart: [place] heart Qualified Code(s): I25.10 - Atherosclerotic heart disease of [place] coronary artery without angina pectoris Category: Medical Code(s): I25.10 - Atherosclerotic heart disease of [place] coronary artery without angina pectoris (6) Edema: Status: Chronic Qualifiers: Edema type: generalized Qualified Code(s): R60.1 - Generalized edema Category: Medical Code(s): R60.9 - Edema, unspecified (7) Chronic a-fib: Status: Chronic Category: Medical Code(s): I48.20 - Chronic atrial fibrillation, unspecified (8) Acute exacerbation of chronic obstructive airways disease: Status: Acute Category: Medical Code(s): J44.1 - Chronic obstructive pulmonary disease with (acute) exacerbation (9) Acute respiratory failure due to COVID-19: Status: Acute Category: Medical Code(s): U07.1 - COVID-19; J96.00 - Acute respiratory failure, unspecified whether with hypoxia or hypercapnia (10) Community acquired pneumonia: Status: Ac
[2022-06-16 12:17] LABS: POC Glucose,Bedside 108 (70-110)
--- NOTE | 2022-06-16 17:00 | PC.NURSE ---
Patient VSS, O2 decrease to 9L 40% Venti mask, up in chair today, B/L lungs diminished no wheezing noted. BLE 2+ edema. BM x 1, output >900mL. No acute distress noted, call light within reach.
[2022-06-16 19:16] LABS: POC Glucose,Bedside 220 (70-110)
[2022-06-16 21:16] LABS: POC Glucose,Bedside 233 (70-110)
[2022-06-17] VITALS (9 sets, daily range): BP systolic 132–151; BP diastolic 57–79; PULSE 61–86; RESP 13–20; TEMP 36.3–36.6; O2SAT 90–98; BMI 30.8
--- NOTE | 2022-06-17 04:34 | PC.NURSE ---
NO ACUTE CHANGES SINCE PREVIOUS ASSESSMENT. PT HAS RESTED WELL THIS SHIFT. PT WAS ABLE TO GET FROM CHAIR TO BED WITH ASSIST X1. LUNG SOUNDS ARE DIMINISHED BILATERALLY. REMAINS ON VENTI MASK AT 9 LPM AT 40% AND IS TOLERATING WELL. SATS HAVE BEEN 92-95%. PT STATES THAT HE FEELS BETTER. BLE REMAIN EDEMATOUS +3. FABRICIO WRAPS ARE IN PLACE FOR VTE AND LOWER EXTREMITY SWELLING. PT STATES THAT HIS LEGS FEEL BETTER. CALL CLAUDIO WITHIN REACH. VSS.
[2022-06-17 05:46] LABS: POC Glucose,Bedside 116 (70-110)
--- NOTE | 2022-06-17 07:49 | EXP.PN ---
Subjective *Date: 06/17/22 *Time: 08:10 Interval history: Patient states that he is probably doing well. He feels his breathing is a little bit better. He is now receiving duo nebs. He is eating too well . Bowels have been moving. He is voiding QS. Set up most of the day yesterday. O2 sats have been in the 90s on Ventimask which is now at 40%. Exam Data for Last 24 hours Vital signs and Labs for Last 24 Hours: Temp Pulse Resp BP Pulse Ox FiO2 97.6 F 63 18 145/63 H 97 40 06/17/22 07:31 06/17/22 07:31 06/17/22 07:31 06/17/22 07:31 06/17/22 07:31 06/17/22 06:00 Laboratory Results - last 24 hr 06/16/22 12:01: POC Glucose 108 06/16/22 18:03: POC Glucose 220 H 06/16/22 20:02: POC Glucose 233 H 06/17/22 05:39: POC Glucose 116 H I & O for Last 24 hours: Intake & Output 06/14/22 06/15/22 06/16/22 06/17/22 11:59 11:59 11:59 11:59 Intake Total 1290 / 1290 1000 / 1000 960 / 960 1080 / 1080 Output Total 3305 / 3305 1625 / 1625 1800 / 1800 1575 / 1575 Balance -2015 / -2015 -625 / -625 -840 / -840 -495 / -495 Weight 249 lb 8 oz 249 lb 7.989 oz 249 lb 7.954 oz 253 lb 1.957 oz Microbiology Reports for the Last 24 Hours: Microbiology 06/13/22 10:41 Sputum - Expectorated Sputum Gram Stain - Final 06/13/22 10:41 Sputum - Expectorated Sputum Sputum Culture - Preliminary Constitutional Constitutional: no acute distress Comments: Lying in bed this AM. He has completed breakfast. *Routine Respiratory Exam Respiratory: Present crackles (Few crackles in the bases. Better breath sounds bilaterally) *Routine Cardiovascular Exam Cardiovascular: Present RRR (90s) *Routine Abdominal Exam Abdominal: Present soft and normoactive bowel sounds; Absent tenderness *Routine Extremities Exam Extremities: Present edema (Bilateral lower legs. Has Ramsey wraps on now) *Routine Neurological Exam Neurological: Present alert and oriented X3 Assessment and Plan *Assessment and plan (1) CKD (chronic kidney disease) stage 4, GFR 15-29 ml/min: Status: Acute Category: Medical Code(s): N18.4 - Chronic kidney disease, stage 4 (severe) (2) Hypomagnesemia: Status: Acute Category: Medical Code(s): E83.42 - Hypomagnesemia (3) COVID-19 virus infection: Status: Acute Category: Medical Code(s): U07.1 - COVID-19 (4) Coronary arteriosclerosis: Status: Chronic Category: Medical Code(s): I25.10 - Atherosclerotic heart disease of [place] coronary artery without angina pectoris (5) Ex-smoker: Status: Chronic Category: Social Hx Code(s): Z87.891 - Personal history of nicotine dependence (6) Hypertensive disorder: Status: Chronic Qualifiers: Hypertension type: essential hypertension Qualified Code(s): I10 - Essential (primary) hypertension Category: Medical Code(s): I10 - Essential (primary) hypertension (7) Diabetes: Status: Chronic Category: Medical Code(s): E11.9 - Type 2 diabetes mellitus without complications (8) Edema: Status: Chronic Qualifiers: Edema type: generalized Qualified Code(s): R60.1 - Generalized edema Category: Medical Code(s): R60.9 - Edema, unspecified (9) Acute exacerbation of chronic obstructive airways disease: Status: Acute Category: Medical Code(s): J44.1 - Chronic obstructive pulmonary disease with (acute) exacerbation (10) Community acquired pneumonia: Status: Acute Qualifiers: Laterality: right Lung location: unspecified part of lung Qualified Code(s): J18.9 - Pneumonia, unspecified organism Category: Medical Code(s): J18.9 - Pneumonia, unspecified organism (11) Acute respiratory failure due to COVID-19: Status: Acute Category: Medical Code(s): U07.1 - COVID-19; J96.00 - Acute respiratory failure, unspecified whether with hypoxia or hype
--- NOTE | 2022-06-17 09:16 | PC.NURSE ---
Placed pt on 4 L NC 02.
[2022-06-17 10:39] LABS: POC Glucose,Bedside 140 (70-110)
--- NOTE | 2022-06-17 13:20 | PC.NURSE ---
Attempted to start another IV on pt x 2, and was unsuccessful. Pt does still have previous working IV.
--- NOTE | 2022-06-17 14:41 | PC.NURSE ---
Spoke w/ Dr. Sun at this time and asked if pt needed to be on anticoag w/ hx of a fib and covid currently. Dr. Sun is going to investigate and make changes as needed, but stated to hold off at this time. Dr. Sun also stated to d/c IVF's and SL. IVF's have been off this shift r/t edema in BLE, pitting and 3 plus. Pt is up to chiar and BLE do have wraps in use. CB in reach and VSS. Pt has refused to shower at this time. This RN has weaned pt's 02 to 2 L NC and pt sats in the low-mid 90's.
[2022-06-17 15:46] LABS: POC Glucose,Bedside 149 (70-110)
[2022-06-17 20:25] LABS: POC Glucose,Bedside 170 (70-110)
[2022-06-18] VITALS (10 sets, daily range): BP systolic 144–156; BP diastolic 69–83; PULSE 58–79; RESP 16–22; TEMP 36.4–36.7; O2SAT 90–94; BMI 33.7; BMI 33.1
--- NOTE | 2022-06-18 05:16 | PC.NURSE ---
NO ACUTE CHANGES SINCE PREVIOUS ASSESSMENT. PT HAS RESTED INTERMITTENTLY THIS SHIFT. LUNG SOUNDS ARE DIMINISHED AT THE BASES. PT IS ON 2L [place] CANNULA AND IS TOLERATING WELL. PT HAS SAT UP ON THE SIDE OF THE BED FOR A LITTLE WHILE THIS SHIFT. BLE REMAIN SWOLLEN, 3+ AND PITTING. FABRICIO WRAPS REMAIN IN PLACE FOR VTE AND SWELLING. VSS. NO C/O SOB THIS SHIFT. CALL CLAUDIO WITHIN REACH.
[2022-06-18 05:44] LABS: POC Glucose,Bedside 114 (70-110)
[2022-06-18 06:43] LABS: Basophils % 0.4 % (0.1-2.0); Eosinophils # 0.3 K/mm3 (0.0-0.4); Eosinophils % 3.6 % (0.1-12.0); Hematocrit 26.1 % (42.0-52.0); Hemoglobin 8.3 g/dL (14.1-18.0); Lymphocytes # 0.9 K/mm3 (0.7-4.5); Lymphocytes % 12.3 % (10-50); Mean Corpuscular HGB Conc 31.9 g/dL (31.8-35.4); Mean Corpuscular Hemoglobin 31.3 pg (27.0-31.2); Mean Corpuscular Volume 98.1 fl (80-94); Mean Platelet Volume 10.3 fl (7.4-10.4); Monocytes # 0.8 K/mm3 (0.1-1.0); Monocytes % 9.9 % (1.7-9.3); Neutrophils # 5.7 K/mm3 (1.8-7.8); Neutrophils % 73.7 % (37.0-80.0); Platelet Count 148 K/mm3 (142-424); Red Blood Count 2.66 M/mm3 (4.60-6.20); Red Cell Distribution Width 14.9 % (11.5-17.5); White Blood Count 7.7 K/mm3 (4.8-10.8)
[2022-06-18 07:09] LABS: Chloride 107 mmol/L (98-107); Sodium 142 mmol/L (136-145)
[2022-06-18 07:10] LABS: Potassium 5.1 mmoL/L (3.5-5.1)
[2022-06-18 07:12] LABS: Creatinine Clearance Estimated 22 mL/min (50-200); Estimated Glomerular Filt Rate 10 ml/min (>60); GFR (African American) 13 ML/MIN (>60)
[2022-06-18 07:13] LABS: Anion Gap 19.1 mEq/L (5-15); Calcium 7.8 mg/dl (8.4-10.2); Carbon Dioxide 21 mmol/L (22.0-30.0); Glucose 100 mg/dl (74-100)
[2022-06-18 07:15] LABS: Blood Urea Nitrogen 90 mg/dl (9-20)
--- NOTE | 2022-06-18 08:36 | PC.NURSE ---
Notified Dr. Sun of pt's critical BUN and Creat this am. BUN 90 and CREAT 5.4.
--- NOTE | 2022-06-18 08:48 | EXP.PN ---
Subjective *Date: 06/18/22 *Time: 08:48 Interval history: Patient feels a little better this morning. He had some nose bleeding over night. Still with cough. Supplemental oxygen weaned down to 2 L per NC. Exam Data for Last 24 hours Vital signs and Labs for Last 24 Hours: Temp Pulse Resp BP Pulse Ox FiO2 97.6 F 69 17 156/69 H 92 L 40 06/18/22 07:25 06/18/22 07:25 06/18/22 07:25 06/18/22 07:25 06/18/22 07:25 06/17/22 06:00 Laboratory Results - last 24 hr 06/17/22 10:30: POC Glucose 140 H 06/17/22 15:33: POC Glucose 149 H 06/17/22 20:15: POC Glucose 170 H 06/18/22 05:37: POC Glucose 114 H 06/18/22 06:30: WBC 7.7, RBC 2.66 L, Hgb 8.3 L, Hct 26.1 L, MCV 98.1 H, MCH 31.3 H, MCHC 31.9, RDW 14.9, Plt Count 148, MPV 10.3, Neut % (Auto) 73.7, Lymph % (Auto) 12.3, [place] % (Auto) 9.9 H, Eos % (Auto) 3.6, Baso % (Auto) 0.4, Neut # (Auto) 5.7, Lymph # (Auto) 0.9, [place] # (Auto) 0.8, Eos # (Auto) 0.3, Baso # (Auto) 0.0 06/18/22 06:30: Sodium 142, Potassium 5.1, Chloride 107, Carbon Dioxide 21 L, Anion Gap 19.1 H, BUN 90 H, Creatinine 5.40 H, Estimated Creat Clear 22, Estimated GFR 10 L*, Est GFR ( Amer) 13 L*, Glucose 100, Calcium 7.8 L I & O for Last 24 hours: Intake & Output 06/15/22 06/16/22 06/17/22 06/18/22 23:59 23:59 23:59 23:59 Intake Total 760 / 760 1200 / 1320 1230 / 1452 582 / 582 Output Total 2099 / 2100 1500 / 1500 675 / 1475 2049 Balance -1340 / -1340 -300 / -180 555 / -23 -1468 / -1468 Weight 249 lb 7.954 oz 249 lb 7.954 oz 253 lb 1.957 oz 276 lb 14.4 oz Microbiology Reports for the Last 24 Hours: Microbiology 06/13/22 08:00 Blood Blood Culture - Final NO GROWTH AFTER 5 DAYS 06/13/22 08:00 Blood Blood Culture - Final NO GROWTH AFTER 5 DAYS 06/13/22 10:41 Sputum - Expectorated Sputum Gram Stain - Final 06/13/22 10:41 Sputum - Expectorated Sputum Sputum Culture - Final Normal Respiratory Ilana Constitutional Constitutional: no acute distress *Routine Respiratory Exam Respiratory: Present crackles (Few crackles in the bases) *Routine Cardiovascular Exam Cardiovascular: Present RRR *Routine Abdominal Exam Abdominal: Present soft and normoactive bowel sounds; Absent tenderness *Routine Extremities Exam Extremities: Present edema (Bilateral lower legs. Has [place] wraps on now) *Routine Neurological Exam Neurological: Present alert and oriented X3 Assessment and Plan *Assessment and plan (1) CKD (chronic kidney disease) stage 4, GFR 15-29 ml/min: Status: Acute Category: Medical Code(s): N18.4 - Chronic kidney disease, stage 4 (severe) (2) Hypomagnesemia: Status: Acute Category: Medical Code(s): E83.42 - Hypomagnesemia (3) COVID-19 virus infection: Status: Acute Category: Medical Code(s): U07.1 - COVID-19 (4) Coronary arteriosclerosis: Status: Chronic Category: Medical Code(s): I25.10 - Atherosclerotic heart disease of [place] coronary artery without angina pectoris (5) Ex-smoker: Status: Chronic Category: Social Hx Code(s): Z87.891 - Personal history of nicotine dependence (6) Hypertensive disorder: Status: Chronic Qualifiers: Hypertension type: essential hypertension Qualified Code(s): I10 - Essential (primary) hypertension Category: Medical Code(s): I10 - Essential (primary) hypertension (7) Diabetes: Status: Chronic Category: Medical Code(s): E11.9 - Type 2 diabetes mellitus without complications (8) Edema: Status: Chronic Qualifiers: Edema type: generalized Qualified Code(s): R60.1 - Generalized edema Category: Medical Code(s): R60.9 - Edema, unspecified (9) Acute exacerbation of chronic obstructive airways disease: Status: Acute Category: Medical Code(s): J44.1 - Loan Documents Closer
--- NOTE | 2022-06-18 09:05 | DIET.NUTRFU ---
Addendum entered by Anjali Cruz RD, LD 06/18/22 14:21: reweight was 123kg, still up 9kg. Will continue to monitor. Spoke to case mgt, possible discharge tomorrow if O2 requirement continues to improve and patient plans to follow-up with supervisor salvage shortly after discharge to review renal fxn. Addendum entered by Anjali Cruz RD, LD 06/18/22 10:32: Spoke to nursing about IVF and reweight, IVF has been held d/t edematous condition. Staff to get reweight today. Nursing feels edema is improving. Original Note: Patient continues to tolerate cardiac/diabetic diet with good meal intake 75-100% most meals. He also continues to receive NaCl via IVF. 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 Not yet started HD. Urine output looks good today already 2050ml, typical urine output (06/14-2300ml, 06/15-2100ml). Wt is up from 113kg to 125kg. Has been at 113kg x4days. Will consult nursing for rewt.
[2022-06-18 12:23] LABS: POC Glucose,Bedside 120 (70-110)
[2022-06-18 17:00] LABS: POC Glucose,Bedside 184 (70-110)
--- NOTE | 2022-06-18 19:33 | PC.NURSE ---
No acute changes since previous assessment. Did have to turn 02 back to 2 L NC. VSS. NAD. Prn anxiety med given per nov. CB in reach.
--- NOTE | 2022-06-18 19:57 | PC.NURSE ---
Pt stated he had rescduled appt w/ nephjerrod CARVALHO for 07/16/22. Dr. Sun aware and ok with that.
[2022-06-18 20:26] LABS: POC Glucose,Bedside 161 (70-110)
[2022-06-19] VITALS: BP 154/73; PULSE 60; RESP 22; TEMP 36.6; O2SAT 92
[2022-06-19 03:57] VITALS: BP 158/73; PULSE 76; RESP 20; TEMP 36.4; O2SAT 91
--- NOTE | 2022-06-19 04:45 | PC.NURSE ---
no acute change since previous assessment. O2 sats >90% on 2L per NC. pt ambulates to and from bathroom with standby assistance. CB in reach.
[2022-06-19 04:55] VITALS: BMI 30.6
[2022-06-19 05:29] LABS: POC Glucose,Bedside 97 (70-110)
[2022-06-19 06:33] VITALS: PULSE 79; PULSE 81; O2SAT 92
[2022-06-19 08:00] VITALS: BP 154/73; PULSE 67; RESP 22; TEMP 36.3; O2SAT 94
--- NOTE | 2022-06-19 08:42 | EXP.ACUTE.PN ---
Subjective *Date: 06/19/22 *Time: 08:51 Interval history: Patient states he is feeling about the same today. He still has some shortness of breath. He has been up to the chair and sitting on the side of the bed. He ate breakfast and has been drinking. Medical Exam Vital signs and Labs for Last 24 Hours: Temp Pulse Resp BP Pulse Ox FiO2 97.6 F 81 20 158/73 H 92 L 40 06/19/22 03:57 06/19/22 06:33 06/19/22 03:57 06/19/22 03:57 06/19/22 06:33 06/17/22 06:00 Laboratory Results - last 24 hr 06/18/22 12:14: POC Glucose 120 H 06/18/22 16:47: POC Glucose 184 H 06/18/22 20:19: POC Glucose 161 H 06/19/22 05:08: POC Glucose 97 I & O for Labs for Last 24 Hours: Intake & Output 06/16/22 06/17/22 06/18/22 06/19/22 11:59 11:59 11:59 11:59 Intake Total 960 / 960 1080 / 1080 1452 / 1452 600 / 600 Output Total 1800 / 1800 1575 / 1575 2650 / 2650 2375 / 2375 Balance -840 / -840 -495 / -495 -1198 / -1198 -1775 / -1775 Weight 249 lb 7.954 oz 253 lb 1.957 oz 272 lb 6 oz 251 lb 11.2 oz Microbiology Reports for the Last 24 Hours: Microbiology 06/13/22 08:00 Blood Blood Culture - Final NO GROWTH AFTER 5 DAYS 06/13/22 08:00 Blood Blood Culture - Final NO GROWTH AFTER 5 DAYS Constitutional: Present no acute distress Respiratory: Present decreased breath sounds Cardiac: Present Reg Rate and Rhythm GI: Present soft; Absent distention, tenderness or guarding Extremities: Present edema (bilateral LE's) Skin: Present intact Neuro: Present alert, awake and oriented x 3 Assessment and Plan *Assessment and plan (1) CKD (chronic kidney disease) stage 4, GFR 15-29 ml/min: Status: Acute Category: Medical Code(s): N18.4 - Chronic kidney disease, stage 4 (severe) (2) Hypomagnesemia: Status: Acute Category: Medical Code(s): E83.42 - Hypomagnesemia (3) COVID-19 virus infection: Status: Acute Category: Medical Code(s): U07.1 - COVID-19 (4) Coronary arteriosclerosis: Status: Chronic Category: Medical Code(s): I25.10 - Atherosclerotic heart disease of [place] coronary artery without angina pectoris (5) Ex-smoker: Status: Chronic Category: Social Hx Code(s): Z87.891 - Personal history of nicotine dependence (6) Hypertensive disorder: Status: Chronic Qualifiers: Hypertension type: essential hypertension Qualified Code(s): I10 - Essential (primary) hypertension Category: Medical Code(s): I10 - Essential (primary) hypertension (7) Diabetes: Status: Chronic Category: Medical Code(s): E11.9 - Type 2 diabetes mellitus without complications (8) Edema: Status: Chronic Qualifiers: Edema type: generalized Qualified Code(s): R60.1 - Generalized edema Category: Medical Code(s): R60.9 - Edema, unspecified (9) Acute exacerbation of chronic obstructive airways disease: Status: Acute Category: Medical Code(s): J44.1 - Chronic obstructive pulmonary disease with (acute) exacerbation (10) Community acquired pneumonia: Status: Acute Qualifiers: Laterality: right Lung location: unspecified part of lung Qualified Code(s): J18.9 - Pneumonia, unspecified organism Category: Medical Code(s): J18.9 - Pneumonia, unspecified organism (11) Acute respiratory failure due to COVID-19: Status: Acute Category: Medical Code(s): U07.1 - COVID-19; J96.00 - Acute respiratory failure, unspecified whether with hypoxia or hypercapnia (12) Respiratory failure with hypoxia: Status: Acute Qualifiers: Chronicity: acute Qualified Code(s): J96.01 - Acute respiratory failure with hypoxia Category: Medical Code(s): J96.91 - Respiratory failure, unspecified with hypoxia (13) Pneumonia due to COVID-19 virus: Statu
--- NOTE | 2022-06-19 08:53 | PC.NURSE ---
When Pt is taken off o2 and on RA he desats into the 80s.
--- NOTE | 2022-06-19 08:59 | PC.NURSE ---
Pt has D/C in, but states that he wants to get a shower and shaved before he leaves. I have told tech.
--- NOTE | 2022-06-19 09:07 | PC.NURSE ---
Pt on RA at rest o2 sat is 85
--- NOTE | 2022-06-19 09:27 | SW/DCPLANNER ---
Addendum entered by Ashley Garcia 06/19/22 10:22: [employer] has delivered portable tank to this patient. Original Note: Patient information/order has been faxed to [facility] for home o2 + portable tank.
--- NOTE | 2022-06-19 10:52 | PC.NURSE ---
Pt states that his ride will not be here until 1300 to get him.
[2022-06-19 12:00] VITALS: BP 139/71; PULSE 82; RESP 20; TEMP 36.8; O2SAT 90
[2022-06-19 12:11] LABS: POC Glucose,Bedside 103 (70-110)
--- NOTE | 2022-06-19 14:32 | HMH.PHAINT1 ---
Pharmacy Intervention Comments: LATE ENTRY: DISCHARGE MEDICATION COUNSELING PROVIDED. DISCUSSED NEW LEVAQUIN 500 MG PRESCRIPTION, TAKE ONE TABLET EVERY 48 HOURS (2 DAYS). MAY WANT TO TAKE WITH FOOD. WATCH FOR UPSET STOMACH, NAUSEA, VOMITING, DIARRHEA, RARE RISK OF TENDON RUPTURE. AVOID TAKING WITHIN 2-4 HOURS OF VITAMINS OR SUPPLEMENTS. PATIENT VERBALIZED NO QUESTIONS.
--- NOTE | 2022-06-19 16:18 | EXP.DC.SUM ---
General Admission date:: 06/13/22 Discharge date: 06/19/22 HPI HPI HPI: Mr. Saldana is a 28-year-old white male with a history of hypertension, diabetes, and stage IV chronic kidney disease who presented to the emergency room last evening with progressive shortness of breath over the past 2 to 3 days. He does not wear oxygen at home but does have a pulse oximeter which was reading 84% prior to coming to the hospital. On evaluation emergency room, he was found to have an elevated white count of 17,000 and his chest x-ray showed midlung and bibasilar opacities consistent with atelectasis versus pneumonia. His COVID test was positive. Of note he had a negative COVID test 4 days ago prior to his cataract surgery. Additional laboratory data was remarkable for an elevated BUN of 73 and creatinine of 4.3 with magnesium of 0.8. BNP is elevated at 12,000. He was 2 g of IV magnesium in the ER and empirically started on Levaquin because of his elevated white count. He has been admitted for further observation and treatment. He is currently satting in the mid 90s with a Venturi mask and is comfortable. Test is significant for having a severe case of COVID in September 2020 for which he was hospitalized at for about 2 months and subsequently spent 5 months in a snf facility. He required renal replacement therapy during that time. Since then he has followed closely with nephrology and had an AV fistula placed about 2 months ago in preparation for dialysis when needed. Hospital Course Hospital Course Hospital Course: The patient was admitted for observation and ongoing treatment. His oxygen saturations were stable on a Venturi mask and he was empirically started on IV Levaquin pending his culture reports. He was not a candidate for remdesivir due to his chronic kidney disease. He was continued on his home maintenance medications. His white blood cell count was normal and his BUN and creatinine remained elevated but stable. His magnesium was low at 1 and he was started on magnesium replacement. He was eating well. A Combivent inhaler was added as were duo nebs. His blood cultures showed no growth. He has some swelling in his legs and Ramsey wraps were applied. His oxygen was weaned down to 2 L per nasal cannula, but was unable to be weaned further. His sputum showed normal respiratory mario. By 06/19/2022 he still had some shortness of breath, but was able to get up in a chair and sit on the side of the bed he had been eating and drinking normally. He was stable to be discharged home on home oxygen. Exam Data for Last 24 hours Vital signs and Labs for Last 24 Hours: Temp Pulse Resp BP Pulse Ox FiO2 98.2 F 82 20 139/71 90 L 40 06/19/22 12:00 06/19/22 12:00 06/19/22 12:00 06/19/22 12:00 06/19/22 12:00 06/17/22 06:00 Laboratory Results - last 24 hr 06/18/22 16:47: POC Glucose 184 H 06/18/22 20:19: POC Glucose 161 H 06/19/22 05:08: POC Glucose 97 06/19/22 11:53: POC Glucose 103 I & O for Last 24 hours: Intake & Output 06/17/22 06/18/22 06/19/22 06/20/22 11:59 11:59 11:59 11:59 Intake Total 1080 / 1080 1452 / 1452 840 / 840 Output Total 1575 / 1575 2650 / 2650 2825 / 2825 Balance -495 / -495 -1198 / -1198 -1984 / Weight 253 lb 1.957 oz 272 lb 6 oz 251 lb 11.2 oz Narrative: Constitutional Comments: He is lying in bed on his left side with Venturi mask in place.? He appears in no acute distress. *Routine HEENT Exam Head: Present normocephalic and atraumatic Eye: Present EOMI; Absent conjunctival icterus ENT: Present mucous membranes moist and oropharynx clear *Routine Neck Exam Neck: Present supple; Absent carotid bruit or lymphadenopathy *Routine Respiratory Exam Respiratory: Present decreased breath sounds (in bases); Absent wheezes *Routine Cardiovascular Exam Cardiovascular: Present RRR; Absent murmur *Routine Abdominal Exam Abdominal: Present soft and obese; Absent tenderness *Rout
--- NOTE | 2022-06-22 13:02 | CARE MANAGER ---
Spoke with patient for post-discharge phone interview, patient states that he is aware of this appointment with Dr. Sun and had gotten his medication.
== END 2022-06-19 13:36 | disposition home or self-care (01) | DRG 177 ==
LOC: ER 09:21 → 2ND 09:43
PROVIDERS: Admitting Provider Family Medicine; Emergency Provider Emergency Medicine; PCP Family Medicine; Visit Provider Family Medicine
DX: U07.1 COVID-19 (principal); J12.82 Pneumonia due to coronavirus disease 2019; J96.01 Acute respiratory failure with hypoxia; N18.4 Chronic kidney disease, stage 4 (severe); I48.20 Chronic atrial fibrillation, unspecified; N17.9 Acute kidney failure, unspecified; N39.0 Urinary tract infection, site not specified; J44.1 Chronic obstructive pulmonary disease with (acute) exacerbation; Z79.84 Long term (current) use of oral hypoglycemic drugs; Z87.891 Personal history of nicotine dependence; E11.22 Type 2 diabetes mellitus with diabetic chronic kidney disease; E78.5 Hyperlipidemia, unspecified; E83.42 Hypomagnesemia; I25.10 Atherosclerotic heart disease of native coronary artery without angina pectoris; D63.1 Anemia in chronic kidney disease
CPT/HCPCS: 36415; 71045; 80048; 80076; 82803; 82962; 83605; 83735; 83880; 84145; 84484; 85007; 85025; 85651; 86140; 87040; 87070; 87205; 93005; 94640; 94760; 94761; 99285; C9803; J1956; J3475; U0003; U0005

== ENCOUNTER 2022-06-26 10:53 | Outpatient (RCR) | payer MEDICARE, SELFPAY ==
--- NOTE | 2022-06-26 11:46 | HMH.PTOPEV ---
PT Outpatient Evaluation Rehab PT Outpatient Evaluation Start: 06/26/22 11:30 Freq: Status: Active Protocol: Document 06/26/22 11:30 CRESCENCIO (Rec: 06/26/22 11:45 CRESCENCIO [id number]) E-signed By Best William, PT Outpatient Therapy Subjective History Subjective History Pt reports injury to left knee caused by a fall last Wednesday. Pt reports medial < lateral aspect left knee pain, with intermittent episodes of left knee 'giving out'. Pt reports recent hospitalization d/t covid and pneumonia, 'still trying to get my strength back from that, and this fall with knee didn't help at all.' Pt reports left < right LE since covid hospitalization in Oct. as well. 'I can't explain it, but since I had covid the first time that left leg has been weak.' Chief Complaint Pain,Gives out/Unstable, Weakness Symptom Type Ache,Sharp,Dull Symptoms Relieved By OTC Meds Symptoms Aggravated By Standing,Physical Activity, Walking Prior Functional Limitations Housework,Standing,Squatting, Walking,Stairs Current Functional Limitations Housework,Standing,Squatting, Walking,Stairs Symptom Description Constant but Variable Level of pain today (0-10) 8 Pain scale - at its best (0-10) 7 Pain scale - at its worst (0-10) 8 Hip/Knee Eval Gait Observation General Gait Pattern Observation Antalgic Gait,Wide Based Gait Assistive Device Assistive Devices Rolling / Wheeled Walker, Wheelchair Palpation Tenderness left Knee Palpation Finding Tenderness Knee Palpation Overall Comment 3/4 medial jt line, 2/4 lateral jt line MMT right Hip Flexion Strength Grade 3+ Fair+ Hip Abduction Strength Grade 3 Fair Hip Adduction Strength Grade 4- Good- Knee Extension Strength Grade 4 Good Knee Flexion Strength Grade 4- Good- left Hip Flexion Strength Grade 3- Fair- Hip Abduction Strength Grade 3- Fair- Hip Adduction Strength Grade 4- Good- Knee Extension Strength Grade 4- Good- Knee Flexion Strength Grade 4- Good- ROM Knee Flexion Active Range of Motion ( 4-116 degrees) Knee
--- NOTE | 2022-07-03 12:30 | SW/DCPLANNER ---
Patient information has been faxed to [facility]/ [facility].
== END 2022-06-26 10:55 | disposition home or self-care (01) ==
LOC: PT 10:53
PROVIDERS: PCP Family Medicine; Visit Provider Family Medicine
DX: R53.81 Other malaise (principal); R29.898 Other symptoms and signs involving the musculoskeletal system
CPT/HCPCS: 97163

== ENCOUNTER 2022-07-02 16:07 | Outpatient (RCR) | payer MEDICARE, SELFPAY ==
--- NOTE | 2022-07-02 17:17 | HMH.PTOPEV ---
PT Outpatient Evaluation Rehab PT Outpatient Evaluation Start: 07/02/22 16:27 Freq: Status: Active Protocol: Document 07/02/22 16:48 ELIS (Rec: 07/02/22 17:17 ELIS [id number]) E-signed By Dennis Daily, PT Outpatient Therapy Subjective History Subjective History This is the initial Physical Therapy evaluation for Nicolás Saldana. Pt is a 71 y/o male referred to PT for assessment of balance, weakness, and need for Skilled Nurcing Facility placement. Pt has a long PMH over the last two years. Pt was dx'd w/ COVID in Sep and spent 9 months in the hospital and SNF for recovery . Pt spent several months in OP rehab before plateuaing and being dc'd to home. In this time pt has developed worsening Chronic Kidney Disease w/ port placement for dialysis, worsening CHF, supp O2 use, significant lower extremity edema pitting 3+. Pt then was diagnosed w/ COVID again ~ 2weeks ago and was hospitalized for 6 days. Pt now comes to OPPT for SNF placement evaluation. Chief Complaint Weakness Symptom Type Ache,Stabbing Symptoms Relieved By Rest/Positioning Symptoms Aggravated By Standing,Physical Activity, Walking Prior Functional Limitations Recreation Activity,Walking, Stairs Current Functional Limitations Housework,Dressing,Driving, Standing,Squatting,Recreation Activity,Walking,Stairs Symptom Description Constant but Variable Balance Eval Chief Complaint Did you feel dizzy, unsteady or faint? Yes Prior Functional Limitations Prior Functional Todd Level decreasing Hx of Falls Hx Falls Yes Number in last 6 months 3 Gait/Posture Asssessment General Gait Observation Shuffling Step Assistive Devices Rolling / Wheeled Walker, Wheelchair Level of Transfer Assist Assistance x1 Hip Observation in Gait Swing Externally Rotated Hip Observation in Gait Stance Inadequate Extension, Externally Rota
== END 2022-07-02 16:10 | disposition home or self-care (01) ==
LOC: PT 16:07
PROVIDERS: PCP Family Medicine; Visit Provider Family Medicine
DX: R53.1 Weakness (principal)
CPT/HCPCS: 97163

== ENCOUNTER → 2022-07-03 12:38 | Outpatient (CLI) | payer MEDICARE, SELFPAY ==
[2022-07-03 14:06] LABS: Basophils % 0.4 % (0.1-2.0); Chloride 111 mmol/L (98-107); Eosinophils # 0.3 K/mm3 (0.0-0.4); Eosinophils % 6.8 % (0.1-12.0); Hematocrit 26.5 % (42.0-52.0); Hemoglobin 8.4 g/dL (14.1-18.0); Lymphocytes # 0.7 K/mm3 (0.7-4.5); Lymphocytes % 14.2 % (10-50); Mean Corpuscular HGB Conc 31.6 g/dL (31.8-35.4); Mean Corpuscular Hemoglobin 31.3 pg (27.0-31.2); Mean Corpuscular Volume 98.9 fl (80-94); Monocytes # 0.5 K/mm3 (0.1-1.0); Monocytes % 9.1 % (1.7-9.3); Neutrophils # 3.4 K/mm3 (1.8-7.8); Neutrophils % 69.5 % (37.0-80.0); Platelet Count 225 K/mm3 (142-424); Red Blood Count 2.68 M/mm3 (4.60-6.20); Red Cell Distribution Width 14.6 % (11.5-17.5)
[2022-07-03 14:07] LABS: Potassium 5.2 mmoL/L (3.5-5.1); Sodium 147 mmol/L (136-145)
[2022-07-03 14:09] LABS: Blood Urea Nitrogen 76 mg/dl (9-20); Estimated Glomerular Filt Rate 10 ml/min (>60); GFR (African American) 12 ML/MIN (>60)
[2022-07-03 14:10] LABS: Anion Gap 19.2 mEq/L (5-15); Calcium 9.1 mg/dl (8.4-10.2); Carbon Dioxide 22 mmol/L (22.0-30.0); Glucose 101 mg/dl (74-100); Phosphorous 4.6 mg/dl (2.5-4.5)
== END ==
PROVIDERS: PCP Family Medicine; Visit Provider Family Medicine
DX: N18.4 Chronic kidney disease, stage 4 (severe) (principal); J18.9 Pneumonia, unspecified organism
CPT/HCPCS: 36415; 80048; 84100; 85025

== ENCOUNTER → 2022-08-11 13:24 | Outpatient (CLI) | payer MEDICARE, SELFPAY ==
[2022-08-11 14:46] LABS: Albumin Level 3.2 g/dl (3.5-5.0); Anion Gap 31.3 mEq/L (5-15); Chloride 110 mmol/L (98-107); Estimated Glomerular Filt Rate 7 ml/min (>60); GFR (African American) 9 ML/MIN (>60); Glucose 171 mg/dl (74-100); Phosphorous 7.6 mg/dl (2.5-4.5); Potassium 4.3 mmoL/L (3.5-5.1); Sodium 146 mmol/L (136-145)
[2022-08-11 15:11] LABS: Blood Urea Nitrogen 142 mg/dl (9-20); Carbon Dioxide 9 mmol/L (22.0-30.0)
== END ==
PROVIDERS: PCP Family Medicine; Visit Provider Family Medicine
DX: R94.4 Abnormal results of kidney function studies (principal)
CPT/HCPCS: 80069

== ENCOUNTER → 2023-05-04 12:28 | Outpatient (CLI) | payer MEDICARE, SELFPAY ==
--- NOTE | 2023-05-04 12:35 | XR_ITS ---
FINAL REPORT TECHNIQUE: Chest PA & Lateral CLINICAL HISTORY: SOA, previous smoker COMPARISON: 06/13/2022 FINDINGS: 2 views of the chest were performed. The heart size is normal. The mediastinum is within normal limits. Scarring is once again identified in the perihilar regions. The bibasilar opacities noted on the prior chest x-ray of June 2022 have significantly improved since that time. There are no pleural effusions. There is no pneumothorax. The bony thorax appears intact. IMPRESSION: No acute cardiopulmonary process. By lateral opacities noted on prior chest x-ray of June 2020 to have markedly improved. Perihilar scarring remains present. Reviewed, Interpreted and Dictated by Santo Saucedo MD Transcribed by Marilynn Ospina Authenticated and . [facility]
== END ==
PROVIDERS: PCP Family Medicine; Visit Provider Family Medicine
DX: R06.02 Shortness of breath (principal)
CPT/HCPCS: 71046

== ENCOUNTER → 2023-06-25 12:25 | Outpatient (CLI) | payer MEDICARE, SELFPAY ==
--- NOTE | 2023-06-25 12:31 | XR_ITS ---
FINAL REPORT CLINICAL HISTORY: WEAKNESS,LEUKOCYTOSIS,COUGH COMPARISON: 05/04/2023 FINDINGS: TWO-VIEW CHEST The heart size is normal. The mediastinum is normal. There is worsening right base atelectasis or pneumonia. Persistent left mid lung opacities are identified. There is no pneumothorax. IMPRESSION: Worsening right base atelectasis or pneumonia with persistent left lung opacities. Reviewed, Interpreted and Dictated by Deng Wood III, MD Transcribed by Maureen Arevalo Authenticated and . [facility]
== END ==
PROVIDERS: PCP Family Medicine; Visit Provider Family Medicine
DX: R53.1 Weakness (principal); D72.829 Elevated white blood cell count, unspecified; R05.9 Cough, unspecified
CPT/HCPCS: 71046

== ENCOUNTER → 2023-06-29 11:30 | Outpatient (CLI) | payer MEDICARE, SELFPAY | PROVIDERS: PCP Family Medicine; Visit Provider Family Medicine | DX: R53.1 Weakness (principal); D72.829 Elevated white blood cell count, unspecified ==

== ENCOUNTER 2024-01-01 11:34 | Emergency (ER) | payer MEDICARE, SELFPAY ==
[2024-01-01] VITALS (15 sets, daily range): BP systolic 90–156; BP diastolic 43–85; PULSE 57–66; RESP 16–18; TEMP 36.6; O2SAT 94–99; BMI 30.4
--- NOTE | 2024-01-01 11:31 | ECG_ITS ---
APPROVED REPORT Exam: Resting ECG HR:61 bpm ECG Measurements Heart Rate 61 AXES RI 279 P -61 QRSd 119 QRS -37 QT 347 T 61 QTc 351 Conclusion SINUS RHYTHM WITH FIRST DEGREE AV BLOCK LEFT AXIS DEVIATION [QRS AXIS < -30] PATTERN CONSISTENT WITH PULMONARY DISEASE MODERATE INTRAVENTRICULAR CONDUCTION DELAY [105+ ms QRS DURATION, 80+ ms Q/S IN V1/V2, NO Q AND 60+ ms R IN I/aVL/V5/V6] Electronically signed by : RITA OLIVER, 01/01/2024 16:08:56
[2024-01-01 11:47] LABS: Basophils # 0.1 K/mm3 (0-0.2); Basophils % 0.4 % (0.1-2.0); Eosinophils # 0.2 K/mm3 (0.0-0.4); Eosinophils % 1.5 % (0.1-12.0); Hemoglobin 9.4 g/dL (14.1-18.0); Lymphocytes # 0.7 K/mm3 (0.7-4.5); Lymphocytes % 5.3 % (10-50); Mean Corpuscular HGB Conc 35.9 g/dL (31.8-35.4); Mean Corpuscular Hemoglobin 37.8 pg (27.0-31.2); Mean Corpuscular Volume 105.2 fl (80-94); Mean Platelet Volume 8.4 fl (7.4-10.4); Monocytes # 0.7 K/mm3 (0.1-1.0); Monocytes % 5.3 % (1.7-9.3); Neutrophils # 11.8 K/mm3 (1.8-7.8); Neutrophils % 87.4 % (37.0-80.0); Platelet Count 239 K/mm3 (142-424); Red Blood Count 2.47 M/mm3 (4.60-6.20); Red Cell Distribution Width 16.9 % (11.5-17.5); White Blood Count 13.5 K/mm3 (4.8-10.8)
[2024-01-01 11:54] LABS: Chloride 94 mmol/L (98-107); Potassium 3.7 mmoL/L (3.5-5.1); Sodium 139 mmol/L (136-145)
[2024-01-01 11:56] LABS: Alanine Aminotransferase 63 U/L (12-78); Aspartate Amino Transferase 46 U/L (17-59); Blood Urea Nitrogen 62 mg/dl (9-20); Creatinine Clearance Estimated 11 mL/min (50-200); Estimated Glomerular Filt Rate 6 ml/min (>60); GFR (African American) 7 ML/MIN (>60)
[2024-01-01 11:57] LABS: Albumin Level 3.5 g/dl (3.5-5.0); Albumin/Globulin Ratio 1.3 (1.1-1.8); Alkaline Phosphatase 115 U/L (38-126); Bilirubin,Total 0.5 mg/dl (0.2-1.3); Carbon Dioxide 33 mmol/L (22.0-30.0); Globulin 2.8 g/dL (1.3-3.2); Glucose 175 mg/dl (74-100); Lipase 35 U/L (23-300); Magnesium 1.8 mg/dl (1.6-2.3); Phosphorous 4.6 mg/dl (2.5-4.5); Total Protein,Serum 6.3 g/dl (6.3-8.2)
[2024-01-01 11:58] LABS: MANUAL DIFFERENTIAL MANUAL DIFFERENTIAL (MANUAL DIFF)
[2024-01-01 12:02] LABS: Anion Gap 15.7 mEq/L (5-15)
--- NOTE | 2024-01-01 12:03 | PC.NURSE ---
critical called from lab creat: 9.2
[2024-01-01 12:09] LABS: VBG HCO3 27.3 mmol/L (23-30); VBG Oxygen Saturation 57.4 % (50-70); VBG PCO2 48.3 mmol/L (35-51); VBG PH 7.37 mmol/L (7.31-7.41); VBG Total CO2 28.8 mmol/L (23-27)
[2024-01-01 12:10] LABS: Lactate Venous 2.4 mmol/L (0.4-2.0)
[2024-01-01 12:13] LABS: Anisocytosis 1+; Lymphocytes % 5 % (10-50); Macrocytosis 1+; Monocytes % 6 % (2-9); Neutrophils % 89 % (42-76); Ovalocytes 1+; Platelet Estimate Normal; Total Cells Counted 100
[2024-01-01] MEDS: LACTATED RINGERS 1000ML 1,000 ML 999 ML IV (12:21)
--- NOTE | 2024-01-01 12:57 | ED_ITS ---
Discharge Plan Disposition Patient Disposition: Xfer Short-Term Hosp Condition: Good Prescriptions Prescriptions: No Action cetirizine [24Hour Allergy] 10 mg tablet 10 mg PO DAILYP PRN (Reason: allergies) carvedilol 3.125 mg tablet 3.125 mg PO BID Proferrin ES 12 mg tablet 12 mg PO DAILY zinc sulfate 220 MG capsule 220 mg PO DAILY Patient Comments: TAKE 1 CAPSULE BY MOUTH ONCE DAILY cholecalciferol (vitamin D3) 1,250 MCG capsule 50,000 unit PO WEEKLY multivitamin Tablet 1 tab PO DAILY vitamin D52-ligyy acid 500-400 mcg Tablet 1 tab PO DAILY Rx Instructions: administer with a meal nifedipine 30 mg tablet extended release 24hr 60 mg PO DAILY atorvastatin 80 mg tablet 80 mg PO DAILY pantoprazole 40 mg tablet,delayed release (DR/EC) 40 mg PO DAILY losartan 100 mg tablet 100 mg PO DAILY ofloxacin 0.3 % drops 1 drp ophthalmic (eye) QID Patient Comments: INSTILL 1 DROP INTO OPERATIVE EYE 4 TIMES A DAY FOR 7 DAYS ketorolac 0.5 % drops 1 drp ophthalmic (eye) QID prednisolone acetate 1 % drops,suspension 1 drp ophthalmic (eye) QID Patient Comments: INSTILL 1 DROP INTO THE OPERATIVE EYE FOUR TIMES DAILY FOR 7 DAYS THEN DECREASE TO TWICE DAILY FOR 14 DAYS levofloxacin 500 mg tablet 500 mg PO Q48H Qty: 5 0RF Referrals Follow up/Referrals: Jeffrey Sun MD [Primary Care Provider] - See instructions Clinical Impressions Clinical Impression: General weakness, Diarrhea Discharge ED Provider: Tesha Flores General Adult HPI General Chief complaint: Weakness Stated complaint: weakness Time Seen by Provider: 01/01/24 11:36 Mode of Arrival: EMS Source of Information: Patient and EMS Limitations: No Limitations Description of Symptoms (Recalled from ER Triage Doc. by RN): Patient brought in via EMS for complaints of weakness. Patient is a dialysis patient who was getting ready to go to [facility] for scheduled dialysis but family states he was to weak to get in car. Patient states he has had diarrhea since night but no ther complaints just that he is weak. Denies pain at this time. History of Present Illness HPI narrative: This patient is a 73-year-old male with a history of end-stage renal disease on Wednesday, , Wednesday dialysis, hypertension, hyperlipidemia, diabetes, CAD, chronic atrial fibrillation,anemia, and CHF presented to the emergency department for evaluation with concern for generalized weakness and diarrhea. Patient reports that since , he has had profuse, watery diarrhea and everything that he eats goes straight through him. No other concerns noted, such as fevers, chills, chest pain, shortness of breath, abdominal pain, nausea, vomiting, or other issues. He notes that he had dialysis on . He was supposed to have dialysis today, but he came here instead because he was feeling too weak. They were unable to get him into the car given his weakness. He arrives by EMS who noted that he was hemodynamically stable en route. Related Data Home Medications Medication Instructions Recorded Confirmed cetirizine 10 mg tablet (24Hour 10 mg PO DAILYP PRN allergies 05/23/18 06/13/22 Allergy) carvedilol 3.125 mg tablet 3.125 mg PO BID Hypertension 07/20/19 06/13/22 iron heme polypeptide 12 mg tablet 12 mg PO DAILY anemia 03/01/20 06/13/22 (errin ES) cholecalciferol (vitamin D3) 1,250 50,000 unit PO WEEKLY Supplement 10/01/20 06/13/22 mcg (50,000 unit) capsule zinc sulfate 50 mg zinc (220 mg) 220 mg PO DAILY Supplement 10/01/20 06/13/22 capsule multivitamin 1 tab PO DAILY Supplement 06/04/22 06/13/22 vitamin B12 500 mcg-folic acid 400 1 tab PO DAILY Supplement 06/04/22 06/13/22 mcg tablet atorvastatin 80 mg tablet 80 mg PO DAILY Cholesterol 06/13/22 06/13/22 losartan 100 mg tablet 100 mg PO DAILY Hypertension 06/13/22 06/13/22 nifedipine 30 mg tablet,extended 60 mg PO DAILY Hypertension 06/13/22 06/13/22 release 24 hr pantoprazole 40 mg tablet,delayed 40 mg PO DAILY GERD 06/13/22 06/13/22 release ketorolac 0.5 % eye drops 1 drp ophthalmic (eye) QID Pain 06/15/22 06/15/22 ofloxacin 0.3 % eye drops 1 drp ophthalmic (eye) QID 06/15/22 06/15/22 Infection prednisolone acetate 1 % eye 1 drp ophthalmic (eye) QID 06/15/22 06/15/22 drops,suspension INFLAMMATION Previous Rx's Medication Instructions Recorded levofloxacin 500 mg tablet 500 mg PO Q48H #5 tabs 06/19/22 Allergies Allergy/AdvReac Type Severity Reaction Status Date / Time No Known Allergies Allergy Verified 06/09/22 10:31 [facility] Disclaimer: The information contained in this section may have been updated after the patient was seen, as this information can be updated by other users. Medical History Urinary tract infection Dialysis patient Cataract Sleep apnea History of COVID-19 Diabetes mellitus, type 2 Pneumothorax Renal failure (ARF), acute on chronic Pneumonia due to COVID-19 virus Respiratory failure with hypoxia Surgical History No significant past surgical history Family History Other No significant family history Social History Smoking Status: Never smoker second hand exposure: No alcohol intake: never counseling provided: none substance use type: denies use current occupational status: retired Travel in the last 8 weeks: None household members: family housing: house current occupational exposures/hazards: No caffeine: Yes ROS Obtained: Yes All systems reviewed & no additional complaints except as documented Physical Exam General General appearance: alert and in no apparent distress Comment: Chronically ill-appearing Head Head exam: atraumatic and normocephalic Eye Eye exam: Present normal appearance, PERRL and EOMI ENT ENT exam: Present normal exam, normal oropharynx, mucous membranes moist and normal external ear exam Neck Neck exam: Present normal inspection, full ROM and trachea midline; Absent tenderness Chest Chest inspection: Present normal inspection and symmetric chest wall rise; Absent tenderness Respiratory Respiratory exam: Present normal lung sounds bilaterally; Absent respiratory distress, wheezes, stridor or accessory muscle use Cardiovascular Cardiovascular exam: Present regular rate and normal rhythm Abdominal Exam Abdominal exam: Present soft; Absent distention, tenderness or guarding Extremities Exam Extremities exam: Present normal inspection, full ROM and normal capillary refill; Absent tenderness or edema Back Exam Back exam: Present normal inspection and full ROM; Absent tenderness Neurological Exam Neurological exam: Present alert, oriented X3, CN II-XII intact and normal gait; Absent motor sensory deficit Psychiatric Psychiatric exam: Present normal affect and normal mood Skin Skin exam: Present warm and dry Medical Decision Making Medical Records Medical records reviewed: Yes I reviewed the patient's medical records. Zander Inquiry Pt receiving controlled substance: No Vital Signs: 01/01/24 11:34 01/01/24 11:41 01/01/24 12:00 Pulse Rate 61 60 Pulse Rate [Right] 62 Respiratory Rate 18 18 18 Blood Pressure 90/43 L 121/63 Blood Pressure [Right Arm] 92/58 L Blood Pressure Mean 58 82 Blood Pressure Mean [Right Arm] 69 Blood Pressure Source [Right Arm] Automatic Cuff 02 Sat by Pulse Oximetry 98 96 94 L Oxygen Delivery Method Room Air 01/01/24 12:30 01/01/24 13:00 Pulse Rate 62 57 L Pulse Rate [Right] Respiratory Rate 16 Blood Pressure 121/69 142/71 H Blood Pressure [Right Arm] Blood Pressure Mean 78 94 Blood Pressure Mean [Right Arm] Blood Pressure Source [Right Arm] 02 Sat by Pulse Oximetry 96 98 Oxygen Delivery Method Lab Data Lab results reviewed: Yes I reviewed the patient's lab results. Lab Results 01/01/24 11:26: VBG pH 7.37, VBG pCO2 48.3, VBG pO2 35.0, VBG HCO3 27.3, VBG Total CO2 28.8 H, VBG O2 Saturation 57.4, VBG Base Excess 2.0, VBG Lactic Acid 2.4 H 01/01/24 11:38: WBC 13.5 H, RBC 2.47 L, Hgb 9.4 L, Hct 26.0 L, MCV 105.2 H, MCH 37.8 H, MCHC 35.9 H, RDW 16.9, Plt Count 239, MPV 8.4, Neut % (Auto) 87.4 H, L ymph % (Auto) 5.3 L, Republic % (Auto) 5.3, Eos % (Auto) 1.5, Baso % (Auto) 0.4, N eut # (Auto) 11.8 H, Lymph # (Auto) 0.7, Republic # (Auto) 0.7, Eos # (Auto) 0.2, Baso # (Auto) 0.1, Total Counted 100, Neutrophils % (Manual) 89 H, Lymphocytes % (Manual) 5 L, Monocytes % (Manual) 6, Platelet Estimate Normal, Anisocytosis 1+, Macrocytosis 1+, Ovalocytes 1+, Sodium 139, Potassium 3.7, Chloride 94 L, Carbon Dioxide 33 H, Anion Gap 15.7 H, BUN 62 H, Creatinine 9.20 H, Estimated Creat Clear 11, Estimated GFR 6 L*, Est GFR ( Amer) 7 L*, Glucose 175 H, Calcium 10.0, Phosphorus 4.6 H, Magnesium 1.8, Total Bilirubin 0.5, AST 46, ALT 63, Alkaline Phosphatase 115, Total Protein 6.3, Albumin 3.5, Globulin 2.8, Albumin/Globulin Ratio 1.3, Lipase 35 01/01/24 11:38 01/01/24 11:38 Orders (Tests/Meds): ED MEDICATIONS Discontinued Medications Generic Name Dose Route Start Last Admin Trade Name Freq PRN Reason Stop Dose Admin Lactated Ringer's 1,000 mls @ 999 mls/hr 01/01/24 12:13 01/01/24 12:21 Lactated Ringer's 1000 Ml Bag IV 01/01/24 13:13 999 mls/hr .Q1H1M ONE Administration ORDERS Category Date Time Status Complete Blood Count Auto Diff Stat Lab 01/01/24 11:38 Completed Comprehensive Metabolic Panel Stat Lab 01/01/24 11:38 Completed Diarrhea 6-11 Panel, Cdiff PCR Stat Lab 01/01/24 11:26 Ordered Lipase Stat Lab 01/01/24 11:38 Completed Magnesium Stat Lab 01/01/24 11:38 Completed Phosphorous Stat Lab 01/01/24 11:38 Completed Venous Blood Gas Stat RT 01/01/24 11:26 Completed ECG Data Tracing #1: I reviewed this ECG and interpreted as documented below: Normal sinus rhythm with first-degree AV block with a RI interval of 279 ms. Intraventricular conduction delay. No acute ST changes concerning for ischemia. ECG initial impression date: 01/01/24 ECG initial impression time: 11:34 Medical Decision Narrative: In summary, this patient is a 73-year-old male presenting to the Emergency Department for evaluation of general weakness in the setting of diarrhea. Differential diagnoses considered include but are not limited to dehydration, electrolyte derangements, metabolic acidosis. Ruling out the most morbid conditions drove assessment. On exam, the patient is nontoxic-appearing, though he does appear vascularly depleted with dry mucous membranes and delayed capillary refill. Abdominal exam is benign. Workup included CBC, CMP, lipase, VBG. I considered imaging, however this was not done as I do not feel that it would change management facilitator at this time given that I do not feel that he likely has surgical intra-abdominal pathology.. He was given a bolus of IV fluids. Patient has mild leukocytosis but otherwise labs are reassuring. He does not have any significant hyperkalemia, acidosis, or other concerns. Ultimately, we tried to ambulate the patient, but he states that he cannot get up because he is too weak in the setting of this diarrheal illness. Stool sample was not able to be obtained thus far. Ultimately, I feel the patient would benefit from admission for continued resuscitation given he is so weak. I called and had an indirect discussion with Dr. Gaspar at [place], as we do not have nephrology here. He accepted the patient for transfer to medical surgical bed. Patient was transported in stable condition by EMS. Critical Care Critical Care Time Critical Care Time: No
--- NOTE | 2024-01-01 13:38 | PC.NURSE ---
Called for transfer to [facility]. Will call back with update
[2024-01-01 14:09] LABS: Adenovirus F 40/41, stool Not Detected (NotDetected); Astrovirus Not Detected (NotDetected); Campylobacter Not Detected (NotDetected); Cryptosporidium Not Detected (NotDetected); Cyclospora Cayetanesis Not Detected (NotDetected); Entamoeba histolytica Not Detected (NotDetected); Enteroaggregative E coli Not Detected (NotDetected); Enteropathogenic E coli Not Detected (NotDetected); Enterotoxigenic E coli Not Detected (NotDetected); Giardia lamblia Not Detected (NotDetected); Norovirus Not Detected (NotDetected); Plesimonas Shigalloides, PCR Not Detected (NotDetected); Rotavirus A Not Detected (NotDetected); Salmonella, PCR Not Detected (NotDetected); Sapovirus Not Detected (NotDetected); Shiga-like toxin E coli Not Detected (NotDetected); Shigella Enterovasive E coli Not Detected (NotDetected); Vibrio Cholerae Not Detected (NotDetected); Vibrio, PCR Not Detected (NotDetected); Yersinia Entercolitica, PCR Not Detected (NotDetected)
--- NOTE | 2024-01-01 14:25 | PC.NURSE ---
DR OLIVER AT BEDSIDE TO UPDATE PT
--- NOTE | 2024-01-01 14:26 | PC.NURSE ---
[facility] called with Bed assignment 126; dr valderrama accepting phys
--- NOTE | 2024-01-01 14:37 | PC.NURSE ---
Attempted to call report to [facility]. Nurse in with patient.
--- NOTE | 2024-01-01 14:56 | PC.NURSE ---
report called to Lisa. roberts going to room 126 @ [place]
--- NOTE | 2024-01-01 15:16 | PC.NURSE ---
EMS notified of transfer. States we are waiting on another ambulance and will be here when available.
[2024-01-01 16:11] LABS: Reflex Lactic Add Lactic Reflex
--- NOTE | 2024-01-01 17:00 | PC.NURSE ---
PTS ATTENDS CHANGED, PT REPOSITIONED IN BED. FAMILY AT BEDSIDE. CALL LIGHT WITHIN REACH
[2024-01-01 17:03] LABS: Lactic Acid Follow Up (RFLX 1) 1.4 mmol/L (0.7-2.1)
--- NOTE | 2024-01-01 17:57 | PC.NURSE ---
Pt being transferred to [facility] at this time
[2024-01-05 10:59] LABS: Clostridium Difficile A/B, PCR Detected (NotDetected)
--- NOTE | 2024-01-06 03:22 | PC.NURSE ---
pt transfered to [place]. faxed stool culture results to [phone]
== END 2024-01-01 18:01 | disposition short-term general hospital (02) ==
PROVIDERS: Emergency Provider Emergency Medicine; PCP Family Medicine
DX: A04.71 Enterocolitis due to Clostridium difficile, recurrent (principal); R19.7 Diarrhea, unspecified; R53.1 Weakness; I44.0 Atrioventricular block, first degree; N18.6 End stage renal disease; I48.20 Chronic atrial fibrillation, unspecified; I11.0 Hypertensive heart disease with heart failure; I50.9 Heart failure, unspecified; I25.10 Atherosclerotic heart disease of native coronary artery without angina pectoris; E78.5 Hyperlipidemia, unspecified; D63.1 Anemia in chronic kidney disease; E11.22 Type 2 diabetes mellitus with diabetic chronic kidney disease; Z99.2 Dependence on renal dialysis
CPT/HCPCS: 80053; 82803; 83605; 83690; 83735; 84100; 85007; 85025; 87506; 93005; 96360; 99285

== ENCOUNTER 2024-03-21 21:49 | Outpatient (CLI) | payer MEDICARE, SELFPAY ==
--- OUTSIDE RECORDS SUMMARY | 2024-03-21 21:51 | XMS_ITS | Continuity of Care Document ---
Author Name Unknown Organization [facility] Care Coordina tion Address [address] [place] [address]- Care Team Providers Care Grain Cleaner Name Role Phone CHARLEEN STRANGE Primary Care Physician Encounter 01/10/23 - 11/05/23 [facility] [address] [place] [address]- [place] Allergies, Adverse Reactions, Alerts No Known Medication Allergies Medications amiodarone 200 mg oral tablet 200 mg = 1 tab, Oral, BID, 0 Refill(s) Start Date: 02/01/23 Status: Ordered atorvastatin 80 mg oral tablet 80 mg = 1 tab, Oral, Daily, 0 Refill(s) Start Date: 02/01/23 Status: Ordered calcium acetate 667 mg oral capsule 1,334 mg 2 cap, Oral, TID(PC), # 90 cap, 0 Refill(s) Start Date: 02/01/23 Status: Ordered cholecalciferol 5000 intl units (125 mcg) oral capsule 125 mcg = 1 cap, Oral, Daily, 0 Refill(s) Start Date: 02/01/23 Status: Ordered cyanocobalamin 1000 mcg oral tablet 1,000 mcg = 1 tab, Oral, Daily, 0 Refill(s) Start Date: 02/01/23 Status: Ordered Eliquis 2.5 mg oral tablet 2.5 mg = 1 tab, Oral, BID, # 60 tab, 0 Refill(s) Start Date: 02/01/23 Status: Ordered metoprolol succinate 25 mg oral tablet, extended release 1 Refill(s), TAKE 1/2 TABLET BY MOUTH ONCE DAILY. 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 Confirmed Active Alcohol dependence, in remission Confirmed Active Type 2 diabetes mellitus with diabetic chronic kidney disease Confirmed Active COPD - Chronic obstructive pulmonary disease Confirmed Active Dependence on 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 Confirmed Active End stage renal disease Confirmed Active GERD - Gastro-esophageal reflux disease Confirmed Active History of falling Confirmed Active 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 Confirmed Active Other mechanical complication of surgically created arteriovenous fistula, initial encounter Confirmed Active Mixed hyperlipidemia Confirmed Active Morbid (severe) obesity due to excess calories Confirmed Active Patient immunocompromised Confirmed Active Type 2 diabetes mellitus with diabetic polyneuropathy Confirmed Active Secondary hyperparathyroidism of renal origin Confirmed Active Nicotine dependence, cigarettes, in remission Confirmed Active Difficulty in walking, not elsewhere classified Confirmed Active Procedures Procedure Date Related Diagnosis Body Site Status Acquired arteriovenous fistula Completed Cataract surgery bilateral Completed Central venous catheter C ompleted Colonoscopy Completed Social History Social History Type Response Smoking Status Smoker, current stat us unknown;Former smoker, quit more than 30 days ago entered on: 11/02/23 Sex Patient Care team information Care Team Personnel Name: Corbin Olsen Position: External Provider - Burlap Worker Member Role: Burlap Worker Address: Address: [address] [place] [address]- Name: [facility] [employer] Position: External Provider - Clinic Member Role: Dialysis Center Address: Address: [address] [place] [address]- Name: HIEU Martínez, Lori Position: Nurse - [facility] Member Role: Intermediate School Teacher Name: CHARLEEN STRANGE Position: External Provider - PCP Member Role: Primary Care Provider Address: Address: [address] [place] [address]- Care Team Related Persons Name: Gabriel Queen Name: Teto Queen
--- OUTSIDE RECORDS SUMMARY | 2024-03-21 21:51 | XMS_ITS ---
Author Name Taylor Terrell Address [address] [place] [address] Phone [phone] Organization [facility] e, NA DOCUMENT DISCLAIMER Multiple document versions may exist, please be sure you review the latest version. The information in the [facility] Progress Note Document represents a providers documented clinical note containing certain health and medical information. It may not contain the complete medical history for the patient and should be independently verified. The represented time in the document is Eastern Time PROVIDER ROUNDING NOTE BASIC HD PROVIDER?ROUNDING?NOTE?BASIC?HD Clinic:?[address] [place] [address]??JUAN ALBERTO??ANTHONY Visit?date:?01/07/2024?00:00?Modality/setting:?[facility] Nicolás?Les?-?Chart?#:?[id number] Method?of?Interaction:?Patient?not?seen Comments:?Patient?not?arrived?for?treatment Date?of?Interaction:?02/28/2024 ?-?Records?/?lab?review?only Reason:??Patient?not?arrived?for?treatment ?-?Patient?is?stable Prior?Treatment:?02/28/2024? Dialyzer:?180NRe?Optiflux? Dialysate:?2.0?K,?2.5 Ca,?1.0?Mg,?100?Dextrose?(G2251)? Prescribed?Time:?3:45? Actual?Time:?03:09? Avg?BFR:?400? Avg?DFR:?800? Wt?Gain?(kg):?0.75? EDW?(kg):?106.30? Home?Medications ?acetaminophen?(acetaminophen) 325?mg,?oral,?2??every?six?hours ??amiodarone?(amiodarone) 200?mg,?oral,?1?tablet?twice?a?day ??atorvastatin?(atorvastatin) 80?mg,?oral,?1??once?a?day [HS] ??cetirizine?(cetirizine) 10?mg,?oral,?1??once?a?day ??cholecalciferol?(vitamin?D3)?(cholecalciferol?(vitamin?d3)) 50?mcg?(2,000?unit),?oral,???once?a?day ??cyanocobalamin?(vitamin?B-12)?(cyanocobalamin?(vitamin?b-12)) 1,000?mcg,?oral,???once?a?day ??Eliquis?(apixaban) 2.5?mg,?oral,?1?tablet?twice?a?day ??ferrous?sulfate?(ferrous?sulfate) 324?mg?(65?mg?iron),?oral,???once?a?day ??loperamide?(loperamide) 2?mg,?oral,?1?tablet?every?six?hours ??magnesium?oxide?(magnesium?oxide) 400?mg?magnesium,?oral,?1?capsule?twice?a?day ??midodrine?(midodrine) 10?mg,?oral,?1?tablet?twice?a?day ??pantoprazole?(pantoprazole) 40?mg,?oral,???once?a?day ??potassium?chloride?(potassium?chloride) 20?mEq,?oral,?1?tablet?once?a?day ??sevelamer?carbonate?(sevelamer?carbonate) 800?mg,?oral,?2?tablet?three?times?a?day Taylor?A?Nidhi,?[employer] END OF DOCUMENT
--- OUTSIDE RECORDS SUMMARY | 2024-03-21 21:51 | XMS_ITS | Continuity of Care Document ---
Author Name Unknown Organization Video Visit - Home Address [address] [place] [address]- Care Team Providers Care Jewel Bearing Grinder Name Role Phone CHARLEEN STRANGE Primary Care Physician Encounter 03/29/23 - 04/01/23 Video Visit - Home [address] [place] [address]- [place] Encounter Diagnosis Dependence on 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(Discharge Diagnosis) - 03/29/23 Anemia in end stage renal disease(Discharge Diagnosis) - 03/29/23 Patient immunocompromised(Discharge Diagnosis) - 03/29/23 Secondary hyperparathyroidism of renal origin(Discharge Diagnosis) - 03/29/23 Mechanical complication of arteriovenous surgical fistula(Discharge Diagnosis) - 03/29/23 Mixed hyperlipidemia(Discharge Diagnosis) - 03/29/23 AF - Paroxysmal atrial fibrillation(Discharge Diagnosis) - 03/29/23 COPD - Chronic obstructive pulmonary disease(Discharge Diagnosis) - 03/29/23 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 (Discharge Diagnosis) - 03/29/23 GERD - Gastro-esophageal reflux disease(Discharge Diagnosis) - 03/29/23 Diabetes mellitus type II(Discharge Diagnosis) - 03/29/23 Polyneuropathy due to diabetes mellitus type II(Discharge Diagnosis) - 03/29/23 Discharge Disposition: Home or Self Care Attending Physician: Izzy, MSN, COPIER REPAIR TECHNICIAN, RESTAURANT CASHIER-BC, Madelin Allergies, Adverse Reactions, Alerts No Known Medication [...] 0 Refill(s) Start Date: 02/01/23 Status: Ordered magnesium oxide 400 mg oral tablet 400 mg = 1 tab, Oral, Daily, 0 Refill(s) Start Date: 02/01/23 Status: Ordered metoprolol succinate 25 mg oral capsule, extended release 25 mg = 1 cap, Oral, Daily, 0 Refill(s) Start Date: 03/29/23 Status: Ordered NIFEdipine (Eqv-Procardia XL) 30 mg oral tablet, extended release 30 mg = 1 tab, Oral, Daily, # 30 tab, 0 Refill(s) Start Date: 03/29/23 Status: Ordered pantoprazole 40 mg oral delayed release tablet 40 mg = 1 tab, Oral, Daily, 0 Refill(s) Start Date: 03/29/23 Status: Ordered Problem List Condition Confirmation Course Effective Dates Status Health Status Informant AF - Paroxysmal atrial fibrillation Confirmed Active Anemia in end stage renal disease Confirmed Active COPD - Chronic obstructive pulmonary disease Confirmed Active Dependence on 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 Confirmed Active Diabetes mellitus type II Confirmed Active GERD - Gastro-esophageal reflux disease Confirmed Active 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 Confirmed Active Mechanical complication of arteriovenous surgical fistula Confirmed Active Mixed hyperlipidemia Confirmed Active Patient immunocompromised Confirmed Active Polyneuropathy due to diabetes mellitus type II Confirmed Active Secondary hyperparathyroidism of renal origin Confirmed Active Diagnosis Diagnosis Type Effective Dates Health Status Clinical Service Informant Anemia in end stage renal disease Discharge Diagnosis 03/29/23 Patient immunocompromised Discharge Diagnosis 03/29/23 Secondary hyperparathyroidism of renal origin Discharge Diagnosis 03/29/23 Mechanical complication of arteriovenous surgical fistula Discharge Diagnosis 03/29/23 AF - Paroxysmal atrial fibrillation Discharge Diagnosis 03/29/23 COPD - Chronic obstructive pulmonary disease Discharge Diagnosis 03/29/23 GERD - Gastro-esophageal reflux disease Discharge Diagnosis 03/29/23 Diabetes mellitus type II Discharge Diagnosis 03/29/23 Polyneuropathy due to diabetes mellitus type II Discharge Diagnosis 03/29/23 Dependence on 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 Discharge Diagnosis 03/29/23 Mixed hyperlipidemia Discharge Diagnosis 03/29/23 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 Discharge Diagnosis 03/29/23 Procedures Procedure Date Related Diagnosis Body Site Status Acquired arteriovenous fistula Completed Cataract surgery bilateral Completed Central venous catheter C ompleted Colonoscopy Completed Vital Signs Most recent to oldest [Reference Range]: 1 Peripheral Pulse Rate [60-100 bpm] 80 bp m (03/29/23 2:21 PM) Blood Pressure [90-120/60-80 mmHg] 139/8 5mmHg *HI* (03/29/23 2:21 PM) Mean Arterial Pressure, Cuff [70-110 mmH g] 103 mmHg (03/29/23 2:21 PM) Social History Social History Type Response Smoking Status Former smoker, quit more than 30 days ago entered on: 03/29/23 Sex Note * Izzy, MSN, COPIER REPAIR TECHNICIAN, RESTAURANT CASHIER-BC, Madelin: PERFORM Event Display: General Clinic Note (Physician) Authored Date: [id number] Comprehensive Health Evaluation for the re-evaluation of chronic conditions. History of Present Illness FUENTESALEXA DELGADO??is a??72 Years??old?Male??with a history of ESRD due to [diabetes and hypertension, First day of dialysis 09/04/2022 on in Center Hemodialysis at??Dialysis Treatment Facility Name:[facility]. Patient seen via Telehealth for a Continuous Health Evaluation for the re- evaluation of chronic conditions today??at dialysis center with the Provider at remote office.??Consent was obtained for use of telehealth during this encounter. This visit was conducted using live two way audio and visual com munication. Patient identity was verbally verified using full name and date of for the encounter. This record has been created using [employer] voice recognition software. Errors have been sought and corrected, but may not always be located. Such creation errors do not reflect on standard of care. Patient is??well-groomed, pleasant.??Patient receives hemodialysis treatments on Wednesday, ??and Wednesday??via a right arm arteriovenous fistula.?? Reports issues with his arteriovenous fistula cannulation (there is only one robotic weld technician who can put my needles in correctly) Fistula is bruise. Member is on Eliquis. ??Has had no recent missed treatments, no recent hospitalizations. Transplant option discussed today, member?? was referral for transplant??by social media marketing analyst, pending initial evaluation appointment. He reports he is independent in all ADLs and ambulate with walker and uses wheelchair to go to dialysis treatment as he takes transportation, mostly for safety. Review of Systems CONSTITUTIONAL:??No fever, chills, diaphoresis. ??No fatigue. ??No change in activity. ??No appetite changes. ??No unexpected weight change. ENT/MOUTH:??No congestion. ??No post nasal drip. ??No sinus pain. ??No nosebleeds. ??No earache. ??No hearing loss. ??No dysphagia. ??No sore throat. ??No hoarseness. ??No toothache. EYES:??No pain. ??No discharge. ??No redness. ??No itching. ??No visual disturbances. ??No photophobia. ??No double vision. RESPIRATORY:??No dyspnea. ??No cough. ??No sputum production. ??No wheezing. CARDIOVASCULAR:??No edema. ??No chest pain. ??No palpitations. ??No orthopnea. GASTROINTESTINAL:??No nausea. ??No vomiting. ??No diarrhea. ??No constipation. ??No abdominal pain.??No abdominal swelling. ??No rectal bleeding. GENITOURINARY:??Produces little to no urine. ??No dysuria or pain. ??No hesitancy. ??No urgency. ENDOCRINE:??No temperature intolerance. ??No unusual hunger or thirst. ??No hair loss. ??No dry skin. MUSCULOSKELETAL:??No cramping. ??No weakness. ??No myalgia. ??No claudication. ??No arthralgia. ??No gait disturbance. SKIN:??No rash. ??No color change. ??No wounds. ??No itching. IMMUNOLOGICAL:??No environmental allergies. ??Patient immunocompromised. NEUROLOGICAL:??No dizziness. ??No headaches. ??No syncope/near syncope. ??No seizures. ??No memory loss. ??No tremors. ??No paresthesias. HEMATOLOGIC/LYMPHATIC:??No unusual bleeding.?+++ bruising.?History of blood transfusion. PSYCHIATRIC:??No confusion. ??No agitation. ??No depression. ??No anxiety. ??No insomnia. Physical Exam Vitals & Measurements HR:??80(Peripheral)?? BP:??139/85?? HT:??68??in?? WT:??224.4??lb?? WT:??224.400??lb?? BMI:??34.12?? Physical exam limited by telehealth visit. ?? GENERAL:??Well developed, well nourished. No apparent distress. HEAD:??Normocephalic. Face symmetric. EYES:??Conjugate gaze. No drainage. NOSE:??No discharge. MOUTH:??Tongue midline and pink. Moist oral mucosa. NECK:??Moves head around easily without restriction. Trachea appears midline. LUNGS:??Normal work of breathing, respiratory rate. ??No audible wheezing. HEART:??Normal rate, rhythm palpated by patient. No edema. ABDOMEN:??Non-distended. Round. No tenderness palpated by patient. SKIN:??No rashes. No visible wounds. No peripheral vascular changes. MUSCULOSKELETAL:??No gross deformities, contractures. NEUROLOGICAL:??Alert and oriented to person, place and time. Thought coherent. No memory loss. PSYCHIATRIC:??Appearance, behavior, speech and affect appropriate. FOOT:??Skin intact. No wounds, blisters, callouses or discoloration. No evidence of onychomycosis. No amputations. ACCESS:??Arteriovenous fistula-right arm Depression Screening Little Interest - Pleasure in Activities: Not at all (03/29/23 14:25:00) Feeling Down, Depressed, Hopeless: Not at all (03/29/23 14:25:00) Initial Depression Screen Score: 0 Score (03/29/23 14:25:00) Trouble Falling or Staying Asleep: Not at all (03/29/23 14:25:00) Feeling Tired or Little Energy: Not at all (03/29/23 14:25:00) Poor Appetite or Overeating: Not at all (03/29/23 14:25:00) Feeling Bad About Yourself: Not at all (03/29/23 14:25:00) Trouble Concentrating: Not at all (03/29/23 14:25:00) Moving or Speaking Slowly: Not at all (03/29/23 14:25:00) Thoughts Better Off or Hurting Self: Not at all (03/29/23 14:25:00) Difficulty at Work, Home, Getting Along: Not difficult at all (03/29/23 14:25:00) Detailed Depression Screen Score: 0 (03/29/23 14:25:00) Total Depression Screen Score: 0 (03/29/23 14:25:00) Falls Risk Assessment History of Fall in Last 3 Months Butler: No (03/29/23) Presence of Secondary Diagnosis Butler: Yes (03/29/23) Use of Ambulatory Aid Butler: Crutches, cane, walker (03/29/23) IV/Heparin Lock Fall Risk Butler: No (03/29/23) Gait Weak or Impaired Fall Risk Butler: Normal, bedrest, immobile (03/29/23) Mental Status Fall Risk Butler: Oriented to own ability (03/29/23) Butler Fall Risk Score: 30 (03/29/23) Mini-Cog No qualifying data available. CAGE No qualifying data available. Pain Assessment No qualifying data available. Funtional Assessment Bathing ADL Index: Independent (2) (03/29/23 14:25:00) Dressing ADL Index: Independent (2) (03/29/23 14:25:00) Toileting ADL Index: Independent (2) (03/29/23 14:25:00) Transferring Bed or Chair ADL Index: Independent (2) (03/29/23 14:25:00) Continence ADL Index: Independent (2) (03/29/23 14:25:00) Feeding ADL Index: Independent (2) (03/29/23 14:25:00) ADL Index Score: 12 (03/29/23 14:25:00) Assessment/Plan 1.??Dependence on 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 A: ESRD on hemodialysis due to??diabetes and hypertension. ??Stable. Patient dialyzes 3 days per week,??3 hours and 45 minutes. per session via??right arm arteriovenous fistula. ??Member reported??having issues with his fistula,??having a hard time getting cannulated. ??Fistula is bruised,??he is al so on Eliquis. ??Member reported??there is only one robotic weld technician who can put his needles in properly??he has requested??that only that robotic weld technician stick him all the time,??dialysis center??is working with him. Member already had??multiple fistulogram,??and is following with vascular??as needed. ??Dialysis adequacy evident by URR??62, and Kt/V??ongoing. ??TW currently??102??kg and last dry weight??102.1??kg. ??Average IDWG is 1-4 kg.?? Does not have issues with missing treatments. ??Does not shorten treatments. ??No symptoms during treatment. ??No hypotension during treatment. ?? Produces little to no urine. ??Does not have hyperkalemia,??potassium level 4.2. ??Followed closely by dialysis team.?? P: Continue hemodialysis per current orders via nephrology and HD center. ??Educated patient regarding fluid and sodium restriction, dietary and medication compliance, and access care. 2.??Anemia in end stage renal disease A: ??Anemia in ESRD,??stable. ??Hgb 11.5, ferritin??ongoing, and Tsat??currently unavailable.?Reported no evidence of bleeding, bruising, dyspnea.]?? Currently on blood thinner???Eliquis??continues on anemia protocols per nephrology/dialysis center with JONATAN and IV iron.?? P: Continue monthly labs and medication management per nephrology and dialysis center protocols. ??Goal hgb 10-11. Educated patient regarding symptoms of anemia. 3.??Patient immunocompromised A: ??Immunocompromised,??stable. ??Patient is chronically immunocompromised due to??ESRD, diabetes,hypertension and COPD. ??Currently no signs or symptoms of infection.?? Up to date on influenza, pneumonia, Hepatitis B and COVID-19 vaccines per CDC guidelines. P: ??Educated patient regarding importance of infection control including handwashing, signs and symptoms of infection, health promotion/disease prevention, and action plan to address any signs or symptoms of infection. ??Continue per PCP and nephrology to maintain appropriate vaccine schedule. 4.??Secondary hyperparathyroidism of renal origin A: ??Secondary Hyperparathyroidism of renal origin, suboptimal. Phosphorus??7.4, PTH??464, calcium??5.6. Currently treated with bone mineral disease protocol at dialysis.?? On phosphorus binders-calcium acetate with meals.?? Reports compliance with medications and renal diet. P: Continue monthly labs, medications, renal diet. Continue per nephrology and HD center mineral bone disease protocol. ??Follow up with dialysis center [facility] Feeder for ongoing dietary management. Educated patient regarding importance of low phosphorus diet and importance of normal phosphorus levels. 5.??Mechanical complication of arteriovenous surgical fistula A: ??Arteriovenous??fistula, stable.?? AVF??present to??right arm. ??Reported bruit and thrill present.?? Bruising noted. ??Difficult cannulation but not ??prolonged bleeding post HD treatment. ??Hadrecent interventions by vascular. Member reported??having issues with his fistula,??having a hard time getting cannulated. ??Fistula is bruised,??he is also on Eliquis. ??Member reported??there is only one robotic weld technician who can put his needles in properly??he has requested??that only that robotic weld technician stick him all the time,??dialysis center??is working with him. Member already had??multiple fistulogram,??and is following with vascular??as needed. ??Dialysis adequacy evident by URR??62. Continues routine evaluation by vascular. P: ??Continue management per nephrology and vascular. 6.??Mixed hyperlipidemia A:Lipid panel is not available for review at this time. ??Patient is on treatment with atorvastatin. P: ??Continue medication and management per PCP with fasting lipids and liver function test every 6months. ?? 7.??AF - Paroxysmal atrial fibrillation A: ??Atrial fibrillation,??paroxysmal, stable. ??Diagnosis noted??in claims data with no records currently available for review. Diagnosis confirmed by patient.?Currently treated with rate-limiting medications-metoprolol??and amiodarone. ??On chronic anticoagulation with Eliquis.??Reports no recent symptoms. ?? No neurological symptoms. ??Followed by??PCP and cardiology. ??P: ??Continue current medications and management??PCP and cardiology. ??Education provided for anti-coagulant use safety and action plan for acute symptoms. 8.??COPD - Chronic obstructive pulmonary disease A: ??COPD,??poorly defined, stable. ??Diagnosis noted??in claims data with no recent records available for review. ??Diagnosis confirmed by patient. ??Patient managed by??PCP. ?? No recent spirometryor PFTs available for review. ??Currently treated with??no medications.?? Currently does not require oxygen. ??Reports??no recent symptoms. ??No recent pneumonia or hospitalization for exacerbations.? P: ??Continue management per??PCP. ??Monitor for worsening symptoms. 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 ??Patient has a history of long standing primary hypertension prior to initiation of HD with progression to secondary hypertension with contributing factors of??diabetes??and ESRD on HD. ??BP??139/85??last post HD treatment currently managed with UF via dialysis.?? Treated with antihypertensives-nifedipine, metoprolol per nephrology and PCP. ??No reports of headaches, chest pain. ??No hypotension during dialysis.?? Reports compliance with low sodium dietand fluid restriction. P: Continue to assess TW and UF for fluid optimization per nephrology. Continue medications per care team. ??Post dialysis SBP goal <130/80. ??Educated patient regarding <2Gm sodium diet, fluidrestriction. 10.??GERD - Gastro-esophageal reflux disease A: ??GERD,??stable. Denies burning pain, belching, regurgitation, and nausea and vomiting. ??Diagnosis confirmed??in claims data and confirmed by patient. ??No records available for review at this time. ??Treated with medication- pantoprazole with symptoms well controlled. ??No reports of GI bleeding. P: ??Continue medication and management per PCP. 11.??Diabetes mellitus type II A: ??Diabetes mellitus,??type 2,??poorly defined. A1C not available at this time.?Follows??PCP??for diabetes management.?? Currently on no medications. ??Reports compliance with diet. ??Denies anysigns or symptoms of hypo or hyperglycemia today. ??Does not??self-monitors blood sugars anymore,??follows A1c with PCP.? Reports history of neuropathy or paresthesias. ??Currently not on neuropathic pain medication. ??No current wounds. ??Denies history of retinopathy. ??But has a history of cataracts. P: ??Continue management and medication per??PCP. ?? Educated patient regarding signs/symptoms suggestive of hypo and hyperglycemia, diabetic foot care, self- monitoring of blood sugars, medication compliance and fall precautions. ??Follow up with RD at dialysis center for diabetic diet education. 12.??Polyneuropathy due to diabetes mellitus type II A: Polyneuropathy, Stable, reported sign and symptoms come and go, mostly at night,??at this time denies [id number] sensation, numbness and weakness. Does not take any medications. Encourage toreport worsen of symptoms. P: Continue management per PCP. Patient Information Name:ALEXA FUENTES Address: [address] [place] [id number] Sex:Male Date of :1950 Phone:[phone] Location:Video Visit - Home Primary Care Provider - CHARLEEN STRANGE MSN, COPIER REPAIR TECHNICIAN, RESTAURANT CASHIER-BC Problem List/Past Medical History Ongoing AF - Paroxysmal atrial fibrillation Anemia in end stage renal disease COPD - Chronic obstructive pulmonary disease Dependence on 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 Diabetes mellitus type II GERD - Gastro-esophageal reflux disease 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 Mechanical complication of arteriovenous surgical fistula Mixed hyperlipidemia Patient immunocompromised Polyneuropathy due to diabetes mellitus type II Secondary hyperparathyroidism of renal origin Procedure/Surgical History ???Acquired arteriovenous fistula???Cataract surgery bilateral???Central venous catheter???Colonoscopy Medications amiodarone 200 mg oral tablet, 200 mg= 1 tab, Oral, BID atorvastatin 80 mg oral tablet, 80 mg= 1 tab, Oral, Daily calcium acetate 667 mg oral capsule, 1334 mg= 2 cap, Oral, TID(PC) cholecalciferol 5000 intl units (125 mcg) oral capsule, 125 mcg= 1 cap, Oral, Daily cyanocobalamin 1000 mcg oral tablet, 1000 mcg= 1 tab, Oral, Daily Eliquis 2.5 mg oral tablet, 2.5 mg= 1 tab, Oral, BID magnesium oxide 400 mg oral tablet, 400 mg= 1 tab, Oral, Daily metoprolol succinate 25 mg oral capsule, extended release, 25 mg= 1 cap, Oral, Daily,?Still taking, not as prescribed: Taking half of tablet daily. NIFEdipine (Eqv-Procardia XL) 30 mg oral tablet, extended release, 30 mg= 1 tab, Oral, Daily pantoprazole 40 mg oral delayed release tablet, 40 mg= 1 tab, Oral, Daily Allergies No Known Medication Allergies Social History Alcohol Use: Past. Type: Beer., 03/29/2023 Electronic Cigarette/Vaping Electronic Cigarette Use: Never. Type: Cannabinoid infused., 03/29/2023 Substance Use Use: Never., 03/29/2023 Tobacco Smoking tobacco use: Former smoker, quit more than 30 days ago., 03/29/2023 Family History Diabetes mellitus: Sister. Health Maintenance Colonoscopy:??Around 10 years ago. PSA:??Yearly Retinal Exam:??Yearly Foot Exam:??Yearly DEXA Scan:??Unknown Labs Last 12 Months Albumin Level: 4 g/dL (03/23/23 14:37:45) Calcium: 9.6 mg/dL (03/23/23 14:37:45) CO2: 22 mEq/L (03/23/23 14:37:45) Creatinine: 10.56 mg/dL (03/23/23 14:37:45) Hgb: 11.5 g/dL (03/23/23 14:37:45) Parathyroid Hormone (PTH): 464 pg/mL (03/23/23 14:37:45) Phosphorus Level: 7.2 mg/dL (03/23/23 14:37:45) Potassium Level: 5.2 mEq/L (03/23/23 14:37:45) Urea Reduction Ratio: 72 % (03/25/23 14:17:00) Patient Care team information Care Team Personnel Name: Corbin Olsen Position: External Provider - Dry Color Mixer Member Role: Dry Color Mixer Address: Address: [address] [place] [address]- Name: [facility] Position: External Provider - Clinic Member Role: Dialysis Center Address: Address: [address] [place] [address]- Name: HIEU Martínez, Lori Position: Nurse - [facility] Member Role: Loading Machine Operator Name: CHARLEEN STRANGE Position: External Provider - PCP Member Role: Primary Care Provider Address: Address: [address] [place] [address]- Care Team Related Persons Name: Gabriel Queen Name: Milagros Queen Name: Teto Queen
--- OUTSIDE RECORDS SUMMARY | 2024-03-21 21:51 | XMS_ITS ---
Author Name Xi Schafer Address [address] [place] [address] Phone [phone] Organization [facility], NA DOCUMENT DISCLAIMER Multiple document versions may exist, please be sure you review the latest version. The information in the [facility] Progress Note Document represents a providers documented clinical note containing certain health and medical information. It may not contain the complete medical history for the patient and should be independently verified. The represented time in the document is Eastern Time PROVIDER ROUNDING NOTE COMP HD PROVIDER?ROUNDING?NOTE?COMP?HD Clinic:?[address] [place] [address]?L?RATNA?NURA Visit?date:?01/07/2024?00:00?Modality/setting:?IHD Nicolás?Les?-?Chart?#:?[id number] Method?of?Interaction:?Face?to?face Date?of?Interaction:?02/16/2024 ?-?Patient?is?stable ?-?Optimal?weight?addressed?with?patient?and?staff. ?-?Medications?and?labs?reviewed. Patient?issues?include: Pt?seen?on?HD?02/16/24.?Recent?admission?in?May?2023&#160 ;for?C?diff,?treated?wtih?vanc and?flagyl,?now?on?oral?antibx.?will?hold?iron?now,&#16 0;given?mircrea?100?02/10,?will get?q?2?wks.?Pt?reports?swelling?in?access?arm,?lower?arm,?started?yesterday. Will?get?appt?with?Dr.?A?for?eval.?Pt?states?he&#1 60;feels?ok?today.?Below?EDW,?will lower?EDW?today?to?post?HD?wgt. Prior?Treatment:?02/14/2024? Dialyzer:?180NRe?Optiflux? Dialysate:?2.0?K,?2.5 Ca,?1.0?Mg,?100?Dextrose?(G2251)? Prescribed?Time:?3:45?Avg?BFR:?400?Wt?Gain (kg):?2.10? Actual?Time:?03:28?Avg?DFR:?800?&#16 0;EDW?(kg):?111.00? Adequacy ?spKt/V?eKdrt/V?&#160 ; ???OLC?(Del)?spKtv?URR?%?1.37?02/14/24?? ?1.16?02/14/24?? ?1.23?0 02/14/24?? ?71?02/14/24? ?1.35?02/11/24?? ?1.15?01/17/24?? ?1.12?0 02/11/24?? ?70?02/11/24? ?1.32?01/17/24?-?&#160 ; ?1.16?01/24/24?? ?69?01/17/24?? ?Potassium,?Serum?mEq/L?Bicarbonate?mEq/L??&# 160;?Creatinine?mg/dL?4.9?02/11/24? 22?02/11/24?10 .34?02/11/24?4.2?01/07/24? 24?01/07/24?7. 92?01/07/24?5.4?09/28/22? 25?09/28/22?5. 71?09/21/22?-?Adequacy?parameters?reviewed Adequacy ?-?Adequacy?target?met ?Sitting?BP?Pre?Sitting BP?Post?Systolic/Diastolic?Systolic/Diastolic?118?/?53??02/14/24?99?/?58? 02/14/24?119?/?57??02/11/24?120?/?55??02/11/24?128?/?64??01/24/24?100?/?53??01/24/24?? Blood?Pressure ?-?Blood?pressure?controlled Fluid?Status ?-?Fluid?status?acceptable Prescription?Compliance ?-?Potassium?controlled Anemia ?HGB?g/dL? Transferrin?Sat.?(Calc)?%?Ferritin?ng/mL&#160 ;?7.9?02/14/24? 7?02/11/24? &#1 60;511?02/11/24?? ?8.0?02/11/24? 33?01/07/24?460?01/07/24?? ?8.8?01/24/24? 28?09/28/22?257?09/08/22?? JONATAN?Administrations ??100?mcg?Mircera?02/11/24 ??mcg?Mircera?02/02/24 ??75?mcg?Mircera?01/15/24 IV?Iron?Administrations ??50?mg?Venofer?02/11/24 ??mg?Venofer?02/02/24 ??50?mg?Venofer?01/15/24 ?-?Anemia?reviewed ?-?JONATAN?adjusted?per?protocol monitor?weekly?hgb,?on?mircera?100?q?2?wks,?given?02/10 Bone?and?Mineral?Metabolism ??Calcium,?Total?mg/dL?? Calcium,?Corrected?mg/dL ?&#1 60;??Phosphorous?mg/dL??? PTH-Intact,?Plasma?pg/mL ??8.6?02/11/24? 9.5?02/11/24?8.3&#16 0;?02/11/24?570?02/11/24?8.9?01/07/24? 9.7?01/07/24?5.7&#16 0;?01/07/24?478?01/07/24?9.3?09/28/22? 9.7?09/08/22?4.6&#16 0;?09/28/22?321?09/21/22?Vitamin?D?25?Hydroxy?ng/mL? ?Vitamin?D?Analogue? Administrations?Calcimimetics?79.6?04/26/24?-?&#1 60;?-?65.7?09/21/22?-?&#1 60;?-?59.7?09/08/22?-?&#1 60;?-? PTH ?-?PTH?within?target ?-?Bone?and?mineral?metabolism?parameters?reviewed ?-?Calcium?controlled ?-?Hyperphosphatemia?noted on?binders Nutrition ?Albumin?g/dL? eNPCR?g/kg/day?2.9?02/11/24?? ?0.93?02/14/24?? ?3.0?01/07/24?? ?0.73?01/17/24?? ?3.4?09/21/22?-?-?Nutrition?reviewed recent?hospitalization,?monitor?protein Home?Medications ?acetaminophen?(acetaminophen) 325?mg,?oral,?2??every?six?hours ??amiodarone?(amiodarone) 200?mg,?oral,?1?tablet?twice?a?day ??atorvastatin?(atorvastatin) 80?mg,?oral,?1??once?a?day [HS] ??cetirizine?(cetirizine) 10?mg,?oral,?1??once?a?day ??cholecalciferol?(vitamin?D3)?(cholecalciferol?(vitamin?d3)) 50?mcg?(2,000?unit),?oral,???once?a?day ??cyanocobalamin?(vitamin?B-12)?(cyanocobalamin?(vitamin?b-12)) 1,000?mcg,?oral,???once?a?day ??Eliquis?(apixaban) 2.5?mg,?oral,?1?tablet?twice?a?day ??ferrous?sulfate?(ferrous?sulfate) 324?mg?(65?mg?iron),?oral,???once?a?day ??loperamide?(loperamide) 2?mg,?oral,?1?tablet?every?six?hours ??magnesium?oxide?(magnesium?oxide) 400?mg?magnesium,?oral,?1?capsule?twice?a?day ??midodrine?(midodrine) 10?mg,?oral,?1?tablet?twice?a?day ??pantoprazole?(pantoprazole) 40?mg,?oral,???once?a?day ??potassium?chloride?(potassium?chloride) 20?mEq,?oral,?1?tablet?once?a?day ??sevelamer?carbonate?(sevelamer?carbonate) 800?mg,?oral,?2?tablet?three?times?a?day Last?Hospitalization ?Admission?Date:?01/28/2024 ?Discharge?Date:?02/09/2024 ?Discharge?Diagnosis: ?-?K56.7?-?Ileus,?unspecified ?-?A04.72?-?Enterocolitis?due?to?Clostridium&#1 60;difficile,?not?specified?as?recurrent Vascular?Access?-?Active/Maturing ?Type?Position/Location?Status?Access?ID?AVFistula-Unknown?Upper?Arm-Right?Temporarily?Unusa ble?[id number]?CVCatheter-Tunneled?Chest?Active?(In?Use)?[id number]?-?-?&# 160;?-? -?-?Vascular?access?reviewed ?-?Referral?made?for?access?revision/intervention left?arm?swelling?below?elbow,?sending?for?eval?with??A Exam ?-?Vital?signs?reviewed Cardiovascular ?-?CV?-?Blood?pressure?noted Edema ?-?EXT?-?No?edema Interest?and?Eligibility?(If?changes?are?made,?Please?notify?SW?via?alert?below) ?Date?of?discussion?from?transplant?assessment:?01/07/2024 ?Patient?already?on?transplant?list??No Tobacco?Cessation ??Tobacco?use:?Never?used Nedda?K?Gilmar,?RUDY END OF DOCUMENT
--- OUTSIDE RECORDS SUMMARY | 2024-03-21 21:51 | XMS_ITS ---
Author Name Sly Alanis Address [address] [place] [address] Phone [phone] Organization [facility] e, NA DOCUMENT DISCLAIMER Multiple document versions may exist, please be sure you review the latest version. The information in the [facility] Progress Note Document represents a providers documented clinical note containing certain health and medical information. It may not contain the complete medical history for the patient and should be independently verified. The represented time in the document is Eastern Time PROVIDER ROUNDING NOTE COMP HD PROVIDER?ROUNDING?NOTE?COMP?HD Clinic:?[address] [place] [id number]??RATNA??ANTHONY Visit?date:?01/07/2024?00:00?Modality/setting:?IHD Nicolás?Les?-?Chart?#:?[id number] Method?of?Interaction:?Face?to?face Date?of?Interaction:?03/08/2024 ?-?Patient?is?stable ?-?Optimal?weight?addressed?with?patient?and?staff. ?-?Medications?and?labs?reviewed. Patient?issues?include: Stable.?Diarrhea?due?to?C-Diff?had?resolved. Prior?Treatment:?03/06/2024? Dialyzer:?180NRe?Optiflux? Dialysate:?2.0?K,?2.5 Ca,?1.0?Mg,?100?Dextrose?(G2251)? Prescribed?Time:?3:45?Avg?BFR:?400?Wt?Gain (kg):?0.45? Actual?Time:?03:47?Avg?DFR:?800?&#16 0;EDW?(kg):?106.50? Adequacy ?spKt/V?eKdrt/V?&#160 ; ???OLC?(Del)?spKtv?URR?%?1.58?02/18/24?? ?1.41?02/18/24?? ?1.47?0 03/06/24?? ?75?02/18/24? ?1.37?02/14/24?? ?1.16?02/14/24?? ?1.45?0 03/03/24?? ?71?02/14/24? ?1.35?02/11/24?? ?1.15?01/17/24?? ?1.32?0 03/01/24?? ?70?02/11/24? ?Potassium,?Serum?mEq/L?Bicarbonate?mEq/L??&# 160;?Creatinine?mg/dL?4.4?02/28/24? 30?02/28/24?6. 27?02/28/24?4.9?02/11/24? 22?02/11/24?10 .34?02/11/24?4.2?01/07/24? 24?01/07/24?7. 92?01/07/24?-?Adequacy?parameters?reviewed Adequacy ?-?Adequacy?target?met ?Sitting?BP?Pre?Sitting BP?Post?Systolic/Diastolic?Systolic/Diastolic?144?/?56??03/06/24?117?/?68??03/06/24?145?/?74??03/03/24?117?/?68??03/03/24?162?/?73??03/01/24?120?/?54??03/01/24?? Blood?Pressure ?-?Blood?pressure?controlled Fluid?Status ?-?Fluid?status?acceptable Interdialytic?Weight?Gain ?-?Interdialytic?weight?gain?acceptable Prescription?Compliance ?-?Prescription?compliance?acceptable ?-?Potassium?controlled Anemia ?HGB?g/dL? Transferrin?Sat.?(Calc)?%?Ferritin?ng/mL&#160 ;?9.3?03/06/24? 25?02/28/24?511?02/11/24?? ?7.9?02/28/24? 7?02/11/24? &#1 60;460?01/07/24?? ?7.7?02/21/24? 33?01/07/24?257?09/08/22?? JONATAN?Administrations ??225?mcg?Mircera?02/25/24 ??100?mcg?Mircera?02/11/24 ??mcg?Mircera?02/02/24 IV?Iron?Administrations ??100?mg?Venofer?03/06/24 ??100?mg?Venofer?03/03/24 ??100?mg?Venofer?02/16/24 ?-?Anemia?reviewed ?-?JONATAN?adjusted?per?protocol anemia?is?improving Bone?and?Mineral?Metabolism ??Calcium,?Total?mg/dL?? Calcium,?Corrected?mg/dL ?&#1 60;??Phosphorous?mg/dL??? PTH-Intact,?Plasma?pg/mL ??8.5?02/28/24? 9.5?02/28/24?3.9&#16 0;?02/28/24?316?03/03/24?8.6?02/11/24? 9.5?02/11/24?8.3&#16 0;?02/11/24?570?02/11/24?8.9?01/07/24? 9.7?01/07/24?5.7&#16 0;?01/07/24?478?01/07/24?Vitamin?D?25?Hydroxy?ng/mL? ?Vitamin?D?Analogue? Administrations?Calcimimetics?79.6?01/07/24?-?&#1 60;?-?65.7?09/21/22?-?&#1 60;?-?59.7?09/08/22?-?&#1 60;?-? PTH ?-?PTH?within?target ?-?Bone?and?mineral?metabolism?parameters?reviewed ?-?Calcium?controlled ?-?Phosphorus?controlled on?binders Nutrition ?Albumin?g/dL? eNPCR?g/kg/day?2.7?02/28/24?? ?0.83?02/18/24?? ?2.9?02/11/24?? ?0.93?02/14/24?? ?3.0?01/07/24?? ?0.73?01/17/24?? ?-?Nutrition?reviewed ?-?Caloric?intake?addressed ?-?Referred?to?dietitian?for?further?counseling Start?Nepro?at?[facility] Home?Medications ?acetaminophen?(acetaminophen) 325?mg,?oral,?2??every?six?hours ??amiodarone?(amiodarone) 200?mg,?oral,?1?tablet?twice?a?day ??atorvastatin?(atorvastatin) 80?mg,?oral,?1??once?a?day [HS] ??cetirizine?(cetirizine) 10?mg,?oral,?1??once?a?day ??cholecalciferol?(vitamin?D3)?(cholecalciferol?(vitamin?d3)) 50?mcg?(2,000?unit),?oral,???once?a?day ??cyanocobalamin?(vitamin?B-12)?(cyanocobalamin?(vitamin?b-12)) 1,000?mcg,?oral,???once?a?day ??Eliquis?(apixaban) 2.5?mg,?oral,?1?tablet?twice?a?day ??ferrous?sulfate?(ferrous?sulfate) 324?mg?(65?mg?iron),?oral,???once?a?day ??loperamide?(loperamide) 2?mg,?oral,?1?tablet?every?six?hours ??magnesium?oxide?(magnesium?oxide) 400?mg?magnesium,?oral,?1?capsule?twice?a?day ??midodrine?(midodrine) 10?mg,?oral,?1?tablet?twice?a?day ??pantoprazole?(pantoprazole) 40?mg,?oral,???once?a?day ??potassium?chloride?(potassium?chloride) 20?mEq,?oral,?1?tablet?once?a?day ??sevelamer?carbonate?(sevelamer?carbonate) 800?mg,?oral,?2?tablet?three?times?a?day Last?Hospitalization ?Admission?Date:?01/28/2024 ?Discharge?Date:?02/09/2024 ?Discharge?Diagnosis: ?-?K56.7?-?Ileus,?unspecified ?-?A04.72?-?Enterocolitis?due?to?Clostridium&#1 60;difficile,?not?specified?as?recurrent Vascular?Access?-?Active/Maturing ?Type?Position/Location?Status?Access?ID?AVFistula-Unknown?Upper?Arm-Right?Temporarily?Unusa ble?[id number]?CVCatheter-Tunneled?Chest?Active?(In?Use)?[id number]?-?-?&# 160;?-? -?-?Vascular?access?reviewed ?-?Referral?made?for?access?revision/intervention ?-?Current?access?is?functioning?well. Exam ?-?Vital?signs?reviewed Pulmonary ?-?LUNGS?-?clear Cardiovascular ?-?CV?-?Blood?pressure?noted ?-?CV?-?RRR Edema ?-?EXT?-?No?edema Feet ?-?EXT?-?no?ulcers Interest?and?Eligibility?(If?changes?are?made,?Please?notify?SW?via?alert?below) ?Date?of?discussion?from?transplant?assessment:?01/07/2024 ?Patient?already?on?transplant?list??No Tobacco?Cessation ??Tobacco?use:?Never?used Alerts Send?alert?to:?Nurse,?Dietitian,?Clinical?Visual Basic .Net Developer Alert?comments: Please?call?[facility]?to?start?Nepro?1?can?PO?BID.? Ziad?W?Thiago?Shelley,? END OF DOCUMENT
--- OUTSIDE RECORDS SUMMARY | 2024-03-21 21:51 | XMS_ITS ---
Author Name Xi Schafer Address [address] [place] [address] Phone [phone] Organization [facility] e, NA DOCUMENT DISCLAIMER Multiple document versions may exist, please be sure you review the latest version. The information in the [facility] Progress Note Document represents a providers documented clinical note containing certain health and medical information. It may not contain the complete medical history for the patient and should be independently verified. The represented time in the document is Eastern Time PROVIDER ROUNDING NOTE BASIC HD PROVIDER?ROUNDING?NOTE?BASIC?HD Clinic:?[address] [place] [address]?L?RATNA??ANTHONY Visit?date:?01/07/2024?00:00?Modality/setting:?IHD Nicolás?Les?-?Chart?#:?[id number] Method?of?Interaction:?Face?to?face Date?of?Interaction:?01/19/2024 ?-?Patient?is?stable ?-?Medications?and?labs?reviewed. Patient?issues?include: Pt?seen?on?HD?01/19/24.?Feels?well,?access?doing?ok?today,?no?issues.?Wgt?stable, will?monitor,?may?need?to?decrease.?Bp?controlled.?No?new?concern?per?pt.?May labs?pending Prior?Treatment:?01/17/2024? Dialyzer:?180NRe?Optiflux? Dialysate:?2.0?K,?2.5 Ca,?1.0?Mg,?100?Dextrose?(G2251)? Prescribed?Time:?3:45? Actual?Time:?03:49? Avg?BFR:?370? Avg?DFR:?670? Wt?Gain?(kg):?0.80? EDW?(kg):?111.00? Home?Medications ?acetaminophen?(acetaminophen) 325?mg,?oral,?2??every?six?hours ??amiodarone?(amiodarone) 200?mg,?oral,?1?tablet?twice?a?day ??atorvastatin?(atorvastatin) 80?mg,?oral,?1??once?a?day [HS] ??cetirizine?(cetirizine) 10?mg,?oral,?1??once?a?day ??cholecalciferol?(vitamin?D3)?(cholecalciferol?(vitamin?d3)) 50?mcg?(2,000?unit),?oral,???once?a?day ??cyanocobalamin?(vitamin?B-12)?(cyanocobalamin?(vitamin?b-12)) 1,000?mcg,?oral,???once?a?day ??Eliquis?(apixaban) 2.5?mg,?oral,?1?tablet?twice?a?day ??ferrous?sulfate?(ferrous?sulfate) 324?mg?(65?mg?iron),?oral,???once?a?day ??loperamide?(loperamide) 2?mg,?oral,?1?tablet?every?six?hours ??magnesium?oxide?(magnesium?oxide) 400?mg?magnesium,?oral,?1?capsule?twice?a?day ??metoprolol?succinate?(metoprolol?succinate) 25?mg,?oral,?1/2?tablet?once?a?day ??nifedipine?(nifedipine) 30?mg,?oral,???once?a?day ??pantoprazole?(pantoprazole) 40?mg,?oral,???once?a?day ??sevelamer?carbonate?(sevelamer?carbonate) 800?mg,?oral,?1?tablet?three?times?a?day Nedda?K?Gilmar,?RUDY END OF DOCUMENT
--- OUTSIDE RECORDS SUMMARY | 2024-03-21 21:51 | XMS_ITS ---
Author Name Taylor Terrell Address [address] [place] [address] Phone [phone] Organization [facility] e, NA DOCUMENT DISCLAIMER Multiple document versions may exist, please be sure you review the latest version. The information in the [facility] Progress Note Document represents a providers documented clinical note containing certain health and medical information. It may not contain the complete medical history for the patient and should be independently verified. The represented time in the document is Eastern Time PROVIDER ROUNDING NOTE BASIC Patient:?Nicolás?Les,?1950,?73y,?M Dialysis?Location:?[facility]??RATNA??-?ANTHONY Attending?Senior Software Engineer:?Sly?Thiago?Shelley Service?Date:?03/10/2024 Service?Provider:?Taylor?Nidhi,?GEAR TOOTH LAPPING MACHINE OPERATOR I?met?face?to?face?with?the?patient?today. 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 disease?with?stage?1?through?stage?4?chronic?kidney?dis ease,?or?unspecified?chronic?kidney?disease Comments:?Stable?on?dialysis. Medications?and?labs?reviewed. LAST?HOSPITALIZATION Discharge?Diagnosis:?K56.7?Ileus,?unspecified A04.72?Enterocolitis?due?to?Clostridium?difficile,?not?specified& #160;as?recurrent Admission?Date?01/28/24 Discharge?Date?02/09/24 DIALYSIS?PRESCRIPTION ??IHD?3x?Week?Start?date:?03/08/24 ??Dialyzer:?180NRe?Optiflux ??BFR:?400 ??DFR:?Manual?800 ??Potassium:?2.0 ??Sodium:?134 ??EDW:?103.5 ??Duration:?3:45 ??Calcium:?2.5 ??Bicarb:?38 ??Rx?updated?on:?03/08/2024 TREATMENT?ASSESSMENT Comments:?B/P?controlled. BP?Sit?Pre ??03/10/2024:?126/62 ??03/08/2024:?143/74 ??03/06/2024:?144/56 BP?Sit?Post ??03/10/2024:?103/56 ??03/08/2024:?105/51 ??03/06/2024:?117/68 Tx?Duration ??03/10/2024:?3:47 ??03/08/2024:?3:46 ??03/06/2024:?3:47 Missed?Treatments 0?-?last?30?days 2?-?last?60?days 5/15?-?recent FLUID?ASSESSMENT Comments:?Adjusting?EDW. EDW?(kg) ??03/10/2024:?103.5 ??03/08/2024:?106.5 ??03/06/2024:?106.5 Weight?Pre?(kg) ??03/10/2024:?104.6 ??03/08/2024:?104.8 ??03/06/2024:?104.9 Weight?Post?(kg) ??03/10/2024:?103.2 ??03/08/2024:?103.9 ??03/06/2024:?103.9 PWV?(kg) ??03/10/2024:?-0.3 ??03/08/2024:?-2.7 ??03/06/2024:?-2.6 UF?Rate?(mL/kg/hr) ??03/10/2024:?3.5 ??03/08/2024:?2.3 ??03/06/2024:?2.4 ADEQUACY?ASSESSMENT Comments:?Goal?met. spKt/V,?URR ??02/18/2024:?1.58,?75.0 ??02/14/2024:?1.37,?71.0 ??02/11/2024:?1.35,?70.0 ACCESS?ASSESSMENT ??Access?Type:?CVCatheter ??Access?SubType:?Tunneled ??Access?Status:?Active?(In?Use)?-?09/21/2022 ??Access?Location:?Chest ??Placed:?--/--/---- Comments:?TDC?functioning?well. ANEMIA?ASSESSMENT Comments:?Hgb?trending?up.??JONATAN/Venofer?per?protocol. HGB,?TSAT ??03/06/2024:?9.3,?- ??02/28/2024:?7.9,?25.0 ??02/21/2024:?7.7,?- ?? Ferritin ??02/11/2024:?511.0 ??01/07/2024:?460.0 Mircera,?IVP?(mcg) ??02/25/2024:?225 ??02/11/2024:?100 ??01/15/2024:?75 Iron?Sucrose?(Venofer)?(mg) ??03/08/2024:?100 ??03/06/2024:?100 ??03/03/2024:?100 BMM?ASSESSMENT PTH,?Intact ??03/03/2024:?316.0 ??02/11/2024:?570.0 ??01/07/2024:?478.0 ?? Calcium,?Phosphorus ??02/28/2024:?8.5,?3.9 ??02/11/2024:?8.6,?8.3 ??01/07/2024:?8.9,?5.7 NUTRITION?ASSESSMENT Comments:?K+?controlled.?Recent?GI?issues;?working?to?improve?protein?intake Potassium,?Albumin ??02/28/2024:?4.4,?2.7 ??02/11/2024:?4.9,?2.9 ??01/07/2024:?4.2,?3.0 ?? eNPCR ??02/18/2024:?0.83 ??02/14/2024:?0.93 ??01/17/2024:?0.73 PHYSICAL?EXAM Exam?Performed.?Vital?Signs?Reviewed.?Lungs?-?Clear.?CV&#160 ;-?Blood?pressure?noted.?CV?-?RRR. DIAGNOSIS Chief?Complaint:?N18.6?End?stage?renal?disease Patient?data?updated?03/10/2024?at?11:07?AM Signed?By:?Nidhi,?Taylor,?GEAR TOOTH LAPPING MACHINE OPERATOR??on?03/10/2024?11:09:42?AM END OF DOCUMENT
--- OUTSIDE RECORDS SUMMARY | 2024-03-21 21:51 | XMS_ITS ---
Author Name Xi Schafer Address [address] [place] [address] Phone [phone] Organization [facility] e, NA DOCUMENT DISCLAIMER Multiple document versions may exist, please be sure you review the latest version. The information in the [facility] Progress Note Document represents a providers documented clinical note containing certain health and medical information. It may not contain the complete medical history for the patient and should be independently verified. The represented time in the document is Eastern Time PROVIDER ROUNDING NOTE COMPREHENSIVE Patient:?Nicolás?Les,?1950,?73y,?M Dialysis?Location:?[facility]??RATNA??-?ANTHONY Attending?Second Baller:?Desmond?Vaughn?Deejay Service?Date:?01/15/2024 Service?Provider:?Xi?Gilmar,?RUDY I?met?face?to?face?with?the?patient?today. 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 disease?with?stage?1?through?stage?4?chronic?kidney?dis ease,?or?unspecified?chronic?kidney?disease Comments:?Pt?seen?on?HD?01/15/24.?Feels?well?today.?Acces s?in?use,?no?issues?with?sticking?today.?Pt?in?[facility]-marie ab?facility?now,?not?sure?how?long?he?will?stay.? Medications?and?labs?reviewed. LAST?HOSPITALIZATION Discharge?Diagnosis:?R78.81?Bacteremia J18.8?Other?pneumonia,?unspecified?organism I48.91?Unspecified?atrial?fibrillation Admission?Date?09/08/22 Discharge?Date?09/18/22 DIALYSIS?PRESCRIPTION ??IHD?3x?Week?Start?date:?01/07/24 ??Dialyzer:?180NRe?Optiflux ??BFR:?400 ??DFR:?Manual?800 ??Potassium:?2.0 ??Sodium:?134 ??EDW:?111 ??Duration:?3:45 ??Calcium:?2.5 ??Bicarb:?38 ??Rx?updated?on:?01/07/2024 TREATMENT?ASSESSMENT Blood?pressure?controlled.?No?changes?indicated.? BP?Sit?Pre ??01/12/2024:?108/58 ??01/10/2024:?129/66 ??01/07/2024:?106/52 BP?Sit?Post ??01/12/2024:?107/55 ??01/10/2024:?117/65 ??01/07/2024:?113/56 Tx?Duration ??01/12/2024:?3:38 ??01/10/2024:?3:33 ??01/07/2024:?1:48 Missed?Treatments 0?-?last?30?days 0?-?last?60?days FLUID?ASSESSMENT Comments:?EDW?now?111?kg,?monitoring?closely Fluid?status?acceptable.?Interdialytic?weight?gain?acceptable.?No ?changes?indicated.? EDW?(kg) ??01/12/2024:?111.0 ??01/10/2024:?111.0 ??01/07/2024:?107.0 Weight?Pre?(kg) ??01/12/2024:?113.4 ??01/10/2024:?92.2 ??01/07/2024:?112.8 Weight?Post?(kg) ??01/12/2024:?110.8 ??01/10/2024:?91.5 ??01/07/2024:?114.8 PWV?(kg) ??01/12/2024:?-0.3 ??01/10/2024:?-19.6 ??01/07/2024:?7.8 UF?Rate?(mL/kg/hr) ??01/12/2024:?6.6 ??01/10/2024:?2.3 ??01/07/2024:?-9.9 ADEQUACY?ASSESSMENT Prescription?compliance?acceptable.?No?changes?indicated.? spKt/V,?URR ??01/10/2024:?1.16,?65.0 ACCESS?ASSESSMENT ??Access?Type:?CVCatheter ??Access?SubType:?Tunneled ??Access?Status:?Active?(In?Use)?-?09/21/2022 ??Access?Location:?Chest ??Placed:?--/--/---- Vascular?access?reviewed. ANEMIA?ASSESSMENT Comments:?restarted?on?iron?and?mircera HGB?at?goal.?Iron?parameters?acceptable.?JONATAN?dose?adequate.& #160;No?changes?indicated.? HGB,?TSAT ??01/10/2024:?9.4,?- ??01/07/2024:?10.2,?33.0 ?? Ferritin ??01/07/2024:?460.0 Active?Orders:?Iron?Sucrose?(Venofer)?50?mg?1X?Week?Dur ing?Dialysis.?Mircera?75?mcg?Every?2?weeks. BMM?ASSESSMENT PTH?controlled.?Calcium?controlled.?Phosphorus?controlled.?No?kenisha nges?indicated.? Phosphorus,?Calcium ??01/07/2024:?5.7,?8.9 ?? PTH,?Intact ??01/07/2024:?478.0 NUTRITION?ASSESSMENT Comments:?recent?GI?issues;?working?to?improve?protein?intake Potassium?controlled.?Albumin?below?goal.?No?changes?indicated. Albumin,?Potassium ??01/07/2024:?3.0,?4.2 PHYSICAL?EXAM Exam?Performed.?Vital?Signs?Reviewed.?CV?-?Blood?pressure&#1 60;noted.?EXT?-?No?edema. DIAGNOSIS Chief?Complaint:?N18.6?End?stage?renal?disease Patient?data?updated?01/15/2024?at?3:59?PM Signed?By:?Gilmar,?Xi,?RUDY??on?01/15/2024?4:11:42?PM END OF DOCUMENT
--- OUTSIDE RECORDS SUMMARY | 2024-03-21 21:51 | XMS_ITS | Continuity of Care Document ---
Author Name Unknown Organization Video Visit - Home Address [address] [place] [address]- Care Team Providers Care Electroplater Automatic Name Role Phone CHARLEEN STRANGE Primary Care Physician Encounter 10/29/23 - 11/01/23 Video Visit - Home [address] [place] [address]- [place] Discharge Disposition: Home or Self Care Attending Physician: Izzy, MSN, CREATIVE ART THERAPIST, AIRCONDITIONING ENGINEER-BC, Madelin Allergies, Adverse Reactions, Alerts No Known [...] 0 Refill(s) Start Date: 02/01/23 Status: Ordered pantoprazole 40 mg oral delayed [...] Secondary hyperparathyroidism of renal origin Confirmed Active Procedures Procedure Date Related Diagnosis Body Site Status Acquired arteriovenous fistula Completed Cataract surgery bilateral Completed Central venous catheter C ompleted Colonoscopy Completed Social History Social History Type Response Smoking Status Former smoker, quit more than 30 days ago entered on: 03/29/23 Sex Patient Care team information Care Team Personnel Name: Corbin Olsen Position: External Provider - Roll Setter Member Role: Roll Setter Address: Address: [address] [place] [id number]- Name: [facility] Position: External Provider - Clinic Member Role: Dialysis Center Address: Address: [address] [place] [id number]- Name: HIEU Martínez, Lori Position: Nurse - [facility] Member Role: Physical Fitness Teacher Name: CHARLEEN STRANGE Position: External Provider - PCP Member Role: Primary Care Provider Address: Address: [address] [place] [address]- Care Team Related Persons Name: Gabriel Queen Name: Teto Queen
[2024-03-21 22:24] LABS: Adenovirus F 40/41, stool Not Detected (NotDetected); Astrovirus Not Detected (NotDetected); Campylobacter Not Detected (NotDetected); Cryptosporidium Not Detected (NotDetected); Cyclospora Cayetanesis Not Detected (NotDetected); Entamoeba histolytica Not Detected (NotDetected); Enteroaggregative E coli Not Detected (NotDetected); Enteropathogenic E coli Not Detected (NotDetected); Enterotoxigenic E coli Not Detected (NotDetected); Giardia lamblia Not Detected (NotDetected); Norovirus Not Detected (NotDetected); Plesimonas Shigalloides, PCR Not Detected (NotDetected); Rotavirus A Not Detected (NotDetected); Salmonella, PCR Not Detected (NotDetected); Sapovirus Not Detected (NotDetected); Shiga-like toxin E coli Not Detected (NotDetected); Shigella Enterovasive E coli Not Detected (NotDetected); Vibrio Cholerae Not Detected (NotDetected); Vibrio, PCR Not Detected (NotDetected); Yersinia Entercolitica, PCR Not Detected (NotDetected)
[2024-03-22 13:55] LABS: Clostridium Difficile A/B, PCR Detected (NotDetected)
== END 2024-03-21 23:59 | disposition home or self-care (01) ==
PROVIDERS: PCP Nurse Practitioner Family; Visit Provider Nurse Practitioner Family
DX: R19.7 Diarrhea, unspecified (principal); Z86.19 Personal history of other infectious and parasitic diseases
CPT/HCPCS: 87506

== ENCOUNTER 2024-05-08 07:10 | Outpatient (CLI) | payer MEDICARE, SELFPAY ==
[2024-05-08 08:16] LABS: Blood Urea Nitrogen 38 mg/dl (9-20); Estimated Glomerular Filt Rate 11 ml/min (>60); GFR (African American) 14 ML/MIN (>60)
== END 2024-05-08 23:59 | disposition home or self-care (01) ==
LOC: RAD 07:13
PROVIDERS: PCP Family Medicine; Visit Provider Surgery
DX: K80.50 Calculus of bile duct without cholangitis or cholecystitis without obstruction (principal)
CPT/HCPCS: 36415; 82565; 84520

== ENCOUNTER 2024-05-24 08:25 | Outpatient (CLI) | payer MEDICARE, SELFPAY ==
--- NOTE | 2024-05-24 | MR_ITS ---
FINAL REPORT CLINICAL HISTORY: EVAL CHOLEDOCHOLITHIASIS COMPARISON: None FINDINGS: Multiplanar MR imaging of the abdomen was performed without contrast. There is motion on many sequences which somewhat limits overall image quality. Images of the liver reveal no evidence of mass. There is a small gallstone present in a moderately distended gallbladder. Mild biliary ductal dilatation is present, the common duct measuring 9 mm in diameter. There is a defect in the common bile duct consistent with a gallstone. The pancreatic duct is normal in appearance. Mild splenomegaly is present, with the spleen measuring 16.3 cm in length. Moderate to severe renal atrophy is noted, as well as numerous bilateral renal cysts, the largest in the left lower pole measuring 31 mm in diameter. No other mass or adenopathy is identified. IMPRESSION: A small gallstone is present and a moderately distended gallbladder, with mild biliary ductal dilatation, the common duct measuring 9 mm in diameter. Choledocholithiasis is present, with a normal pancreatic duct. Splenomegaly and moderate to severe renal atrophy as described above. Reviewed, Interpreted and Dictated by Deng Wood III, MD Transcribed by Marilynn Ospina Authenticated and [facility]
--- OUTSIDE RECORDS SUMMARY | 2024-05-24 08:29 | XMS_ITS | Continuity of Care Document ---
Author Organization [address] [place] [address] Address [address] [facility] [address] [place] [address] Phone Care Team Providers Care Steward/Stewardess Banquet Name Role Phone Cassy GERARD, Leonora Unavailable Unavailabl e Allergies, Adverse Reactions, Alerts Substance Reaction Status Criticality No Known Allergies Active No Inform ation Medications Medication Instructions Dosage Effective Dates (start - stop) Status Comments Eliquis 2.5 mg tablet - Acti ve amiodarone 200 mg tablet - Active atorvastatin 80 mg tablet - Active montelukast 10 mg tablet - Active pantoprazole 40 mg tablet,delayed release - Active trazodone 100 mg tablet - Ac tive fluticasone propionate 50 mcg/actuation nasal spray,suspension - Active sevelamer carbonate 800 mg tablet - Active loperamide 2 mg capsule - Ac tive midodrine 10 mg tablet - Act palomo midodrine 5 mg tablet - Acti ve trazodone 150 mg tablet - Ac tive Tayla-Zack 0.8 mg tablet TAKE 1 TABLET BY MOUTH ONCE DAILY - Active calcium acetate(phosphate binders) 667 mg capsule - Active cetirizine 10 mg tablet TAKE 1 TABLET BY MOUTH ONCE DAILY - Active metronidazole 500 mg tablet TAKE 1 TABLET BY MOUTH THREE TIMES DAILY FOR 7 DAYS - Active levofloxacin 250 mg tablet TAKE 1 TABLET BY MOUTH EVERY OTHER DAY - Active cefdinir 300 mg capsule TAKE 1 CAPSULE B Y MOUTH TWICE DAILY FOR 7 DAYS - Active lidocaine 5 % topical patch - Active Procedures Procedure Date Prophylaxis - Adult Compsve Oral Eval- New/Est Pat Complete Series Of Radiographic Images A Advance Directives Directive Yes / No Effective Date File Name No Information Encounters Encounter Description Practice Location Reason(s) For Visit Diagnoses Date Provider Providers Copied on Encounter [address] [place] [address], [address] [place] [address], [place], [place], [id number], tel:[phone] [place] No Information 4 [place]. [address] [place] [address], [id number] [place] [address], [place], [place], [id number], tel:[phone] [place] Encounter for dental examination and cleaning without abnormal findings 4 Piedad Coronado. [address] [place] [address], [place] [address], [place], [place], [id number], . tel:[phone] Referring Provider: Jeffrey Sun. [address] [place] [address], [address] [facility] [address], [place], [place], [id number], tel:[phone] [place] No Information 4 Piedad Coronado. [address] [place] [address], [place] [address], [place], [place], [id number], . tel:[phone] Family History Family Member Type Diagnosis Age At Onset No Information Payers Payer name Insurance type Covered green party ID Authoriza tion(s) DDS Medicaid [place] [id number] Social History Type Description Quantity Date Captured Comments Sex Male Smoking Status No Information Chief Complaint And Reason For Visit No Information Reason For Referral Reason For Referral No Information Plan Of Treatment Date Type Action Status Appointment Nicolás Saldana BOOKED History Of Present Illness Encounter Date Complaint History Of Prese nt Illness No Information Functional Status Date Functional Assessmen t No Information Instructions Date Instruction Additional Infor mation No Information Assessments Type Assessment Date No Information Patient Care Teams Name Effective Dates (start - stop) Status Members No Information
== END 2024-05-24 23:59 | disposition home or self-care (01) ==
LOC: RAD 08:27
PROVIDERS: PCP Family Medicine; Visit Provider Surgery
DX: K80.50 Calculus of bile duct without cholangitis or cholecystitis without obstruction
CPT/HCPCS: 74181; 76376

== ENCOUNTER 2024-11-28 18:11 | Outpatient (CLI) | payer MEDICARE, SELFPAY ==
[2024-11-28 20:01] LABS: Occult Blood,Stool Negative (Negative)
== END 2024-11-28 23:59 | disposition home or self-care (01) ==
LOC: LAB.DROPOF 18:15
PROVIDERS: PCP Family Medicine; Visit Provider Family Medicine
DX: D64.9 Anemia, unspecified (principal)
CPT/HCPCS: 82272; G0328

== ENCOUNTER 2025-06-06 15:10 | Emergency (ER) | payer MEDICARE, SELFPAY ==
--- OUTSIDE RECORDS SUMMARY | 2024-10-03 10:15 | XMS_ITS ---
Author Organization [facility] Address [address] [place] [id number] Care Team Providers Care Rheostat Assembler Name Role Phone Jeffrey Sun Primary Care Provider [phone] Caren Jones Unavailable [phone] Allergies No Known Allergies REASON FOR VISIT [facility] VISIT Medications Medication SIG (Take, [...] 1 TABLET TWICE DAILY Active Vital Signs Weight 230.5 lbs 10/03/2024 Blood pressure systolic 120 mm Hg 10/03/19 25 Blood pressure diastolic 68 mm Hg 025 Heart Rate 74 /min 10/03/2024 Respiratory Rate 20 /min 10/03/2024 Encounters Encounter Location Date Provider Diagnosis [address] [place] [phone] 10/03/2024 Caren Jones Cough R05.9 ; Type 2 diabetes mellitus without complication E11.9 ; Essential hypertension I10 ; Hyperlipidemia, unspecified hyperlipidemia type E78.5 ; Anemia, unspecified type D64.9 ; Atherosclerosis of [place] coronary artery without angina pectoris, unspecified whether [place] or transplanted heart I25.10 ; Chronic obstructive [...] type (ICD-10 - D64.9) 10/03/2024 Atherosclerosis of [place] coronary artery without angina pectoris, unspecified whether [place] or transplanted heart (ICD-10 - I25.10) 10/03/2024 [...] Details Follow Up: 2 Months,and prn, Reason: Provider Name:Jeffrey to, 06/06/2025 03:03:00 PM, [address], [address], [place], [place], [phone], Progress Notes * PEGGY FUENTES:1950 (74 yo M)Acc No.[id number]:10/03/2024 Progress Notes Patient: ALEXA URIOSTEGUI Provider: CASEY Bradshaw :1950 A ge:73 Y S ex:Male Date:10/03/2024 Address:[address], [place], [id number] Pcp:Jeffrey Sun Subjective: * Chief Complaints: * 1 . [facility] VISIT. * HPI: H PI: For routine Custodial visit; chart reviewed and patient examined; see [...] Hypertriglyceridemia, Anemia, Cataract, Colon Polyps, Atrial Fibrilation, 2018, Sleep Apnea , Proteinuria, Stage 4 Chronic Kidney Disease, stage 4 as of 2019, Nephrology, Covid with Pneumonia, s/p [facility] 2 months and SNF 5 months, 09/28/2020, ESKD with dialysis 3 times weekly. * Surgical History: K idney Stone Removal- [facility] 2006, Prostate- [facility] 2010, Heart Cath & ECHO 04/2017. * Hospitalization/Major Diagno stic Procedure: C ovid-19- [facility] 2020, Respiratory Failure- and [facility] 2020, Stage 4 Chronic Kidney Disease, GFR [...] 1 capsule Orally Three times a Week M,W, , Taking traZODone HCl 50 MG Tablet [...] Temp:97.6, BP:120/68, HR:74, O2 Sat:95%, Nurse:reviewed/recorded by paul, RR:20. * Examination: G eneral Examination: General [...] - D64.9 6 . A therosclerosis of [place] coronary artery without angina pectoris, unspecified whether [place] or transplanted heart - I25.10 7 . [...] (gastroesophageal reflux disease) - K21.9? 18. B ronjobytis - J40 Plan: * Treatment: 2. T ype 2 diabetes mellitus without complication Notes: [facility] diet 3. H yperlipidemia, unspecified hyperlipidemia type [...] 1 capsule, Orally, Three times a Week M,W,F; C ontinue Nephro-Zack Tablet, 0.8 MG, 1 [...] * Images: Billing Information: * Visit Code: 98910 subs. level 4. * Procedure Codes: * Electronic signature of Vanita Jones APRN on 06/06/2025 at 03:26 PM EDT Sign off status: Pending * Provider: CASEY Bradshaw Date: 0 10/03/2024 Generated for Areli berkowitz/Jessie/Pablo on: 0 06/06/2025 03:26 PM EDT History and Physical Notes * HPI (History of Present Illness) Category Sub-Category Detail Notes Category Not es HPI For routine [facility] Home visit; chart reviewed and patient examined; [...]
--- OUTSIDE RECORDS SUMMARY | 2024-11-07 10:15 | XMS_ITS ---
[facility] Address [address] [place] [id number] Care Team Providers Care Telephone Maintenance Mechanic Name Role Phone Jeffrey Sun Primary Care Provider Caren Jones Unavailable [phone] Allergies No Known Allergies REASON FOR VISIT [facility] HOME VISIT Medications Medication SIG (Take, [...] 1 capsule Orally Three times a Week ,W,F Active Nephro-Zack 0.8 MG 1 tablet Orally [...] ml Orally bid Ac tive Vital Signs Weight 242.6 lbs 11/07/2024 Blood pressure systolic 106 mm Hg 11/07/19 25 Blood pressure diastolic 74 mm Hg 025 Heart Rate 64 /min 11/07/2024 Respiratory Rate 20 /min 11/07/2024 Encounters Encounter Location Date Provider Diagnosis [address] [place], [place] [id number] 11/07/2024 Caren Jones Cough R05.9 ; Type 2 diabetes mellitus without complication E11.9 ; Hyperlipidemia, unspecified hyperlipidemia type E78.5 ; Anemia, unspecified type D64.9 ; Atherosclerosis of [place] coronary artery without angina pectoris, unspecified whether [place] or transplanted heart I25.10 ; Chronic obstructive [...] type (ICD-10 - D64.9) 11/07/2024 Atherosclerosis of [place] coronary artery without angina pectoris, unspecified whether [place] or transplanted heart (ICD-10 - I25.10) 11/07/2024 [...] [address], [address], [place], [id number], Progress Notes * ALEXA FUENTESDOB:1950 (74 yo M)Acc No.[id number]:11/07/2024 Progress Notes Patient: ALEXA URIOSTEGUI Provider: CASEY Bradshaw :1950 A ge:73 Y S ex:Male Date:11/07/2024 Address:[address] [place] [address] [address], [place], [id number] Pcp:Jeffrey Sun Subjective: * Chief Complaints: * 1 . [facility] HOME VISIT. * HPI: H PI: [...] * Surgical History: K idney Stone Removal- [facility] 2006, Prostate- [facility] 2010, Heart Cath & ECHO 04/2017. * Hospitalization/Major Diagno stic Procedure: C ovid-19- [facility] 2020, Respiratory Failure- and [facility] 2020, Stage 4 Chronic Kidney Disease, [...] Three times a Week M,W,F , Taking Nephro-Zack 0.8 MG Tablet 1 [...] Temp:97.6, BP:106/74, HR:64, O2 Sat:96%, Nurse:reviewwed/recorded by [facility], RR:20. * Examination: G eneral Examination: [...] - D64.9 5 . A therosclerosis of [place] coronary artery without angina pectoris, unspecified whether [place] or transplanted heart - I25.10? 6. C [...] * Images: Billing Information: * Visit Code: 48314 subs. level 4. * Procedure Codes: * Electronic signature of Vanita Jones APRN on 06/06/2025 at 03:28 PM EDT Sign off status: Pending * Provider: CASEY Bradshaw Date: 11/07/2024 Generated for Areli berkowitz/Jessie/Pablo on: 0 06/06/2025 03:28 PM EDT History and Physical Notes * HPI (History of Present Illness) Category Sub-Category Detail Notes Category Not es HPI For routine [facility] Home visit; chart reviewed and patient [...]
--- OUTSIDE RECORDS SUMMARY | 2024-12-26 10:15 | XMS_ITS ---
[facility] Address [address] [place] [id number] Care Team Providers Care Data Management Name Role Phone Jeffrey Sun Primary Care Provider [phone] Caren Jones Unavailable [phone] Allergies No Known Allergies REASON FOR VISIT [facility] VISIT Medications Medication SIG (Take, [...] Three times a day with meals Active [place] Oil (Otic) - bid left ear Otic [...] W/U Status Risk Notes Problem Otitis externa (9074915) Otitis externa (H60.90) Active confirmed Problem Allergic rhinitis (95543984) Acute allergic rhinitis (J30.9) Active confirmed Vital Signs Weight 233 lbs 12/26/2024 Blood pressure systolic 146 mm Hg 12/27/19 25 Blood pressure diastolic 81 mm Hg 025 Heart Rate 71 /min 12/26/2024 Respiratory Rate 18 /min 12/26/2024 Encounters Encounter Location Date Provider Diagnosis [address] [place], [place] [id number] 12/26/2024 Caren Jones Cough R05.9 ; Type 2 diabetes mellitus without complication E11.9 ; Hyperlipidemia, unspecified hyperlipidemia type E78.5 ; Anemia, unspecified type D64.9 ; Atherosclerosis of [place] coronary artery without angina pectoris, unspecified whether [place] or transplanted heart I25.10 ; Chronic obstructive [...] IV Iron at dialysis,W,F 12/26/2024 Atherosclerosis of [place] coronary artery without angina pectoris, unspecified whether [place] or transplanted heart (ICD-10 - I25.10) 12/26/2024 [...] Orally Three times a day with meals Willow Oil (Otic) - bid left ear Otic [...] Up: 2 Months,and prn, Reason: Provider Name:Jeffrey Taylor ry, 06/06/2025 03:03:00 PM, [address] [facility], [address], [place], [place], [id number], Progress Notes * ALEXA FUENTESDOB:1950 (74 yo M)Acc No.[id number]:12/26/2024 Progress Notes Patient: ALEXA URIOSTEGUI Provider: CASEY Bradshaw :1950 A ge:74 Y S ex:Male Date:12/26/2024 Address:[address] [place], [id number] Pcp:Jeffrey Sun Subjective: * Chief Complaints: * 1 . [facility] * HPI: H PI: For routine Long Term visit; chart reviewed and patient examined; see [...] * Surgical History: K idney Stone Removal- [facility] 2006, Prostate- [facility] 2010, Heart Cath & ECHO 04/2017. * Hospitalization/Major Diagno stic Procedure: C ovid-19- [facility] 2020, Respiratory Failure- and [facility] 2020, Stage 4 Chronic Kidney Disease, GFR 15-29 ml/min 06/13-. * Family History: F ather: , cancer. M other: alive. S iblings: Brother- Cancer. 2 brother(s) , 1 sister(s) . 1 son(s) , 1 daughter(s) - healthy. . * Social History: C URRENT TOBACCO USE S moking Status: P atient does NOT smoke Quit in Oct 14, [...] 128/60, 160/81,146/81, HR:71, O2 Sat:92%, Nurse:reviewed/recorded by [facility], RR:18. * P ast Orders: L ab:H-Occult [...] - D64.9 5 . A therosclerosis of [place] coronary artery without angina pectoris, unspecified whether [place] or transplanted heart - I25.10? 6. C [...] at bedtime, Orally, Once a day; Start [place] Oil (Otic) Oil, -, bid left ear, Otic, bid x 7 days and prn; S tart Ciprofloxacin HCl Solution, 0.2 %, 0.25 ml into right ear, Otic, every 12 hrs, 7 day(s), 3.5 ml. Notes: DNR; need lab results from dialysis * Follow Up: 2 Months,and prn * Images: Billing Information: * Visit Code: 69130 subs. level 4. * Procedure Codes: * Electronic signature of Vanita Jones APRN on 06/06/2025 at 03:27 PM EDT Sign off status: Pending * Provider: CASEY Bradshaw Date: 0 12/26/2024 Generated for Giulianoi ng/Faninig/eTransmitting on: 0 06/06/2025 03:27 PM EDT History and Physical Notes * HPI (History of Present Illness) Category Sub-Category Detail Notes Category Not es HPI For routine [facility] Home visit; chart reviewed and [...]
--- OUTSIDE RECORDS SUMMARY | 2025-02-20 10:00 | XMS_ITS ---
Author Organization [facility] Address [address] [place] [id number] Care Team Providers Care Polisher Dial Name Role Phone Jeffrey Sun Primary Care Provider Caren Jones Unavailable [phone] Allergies No Known Allergies REASON FOR VISIT [facility] HOME VISIT, HISTORY AND PHYSICAL Medications Medication SIG (Take, Route, Frequency, Duration) Notes Start Date End Date Status Calamine-Zinc Oxide 8-8 % as directed Externally apply sacral tissue around wound Active Pro-Stat - 30 ml Orally bid Ac tive [place] Oil (Otic) - bid left ear Otic [...] 2 times a day Active Vital Signs Weight 245.5 lbs 02/20/2025 Blood pressure systolic 148 mm Hg 02/21/20 25 Blood pressure diastolic 64 mm Hg 025 Heart Rate 64 /min 02/20/2025 Respiratory Rate 20 /min 02/20/2025 Encounters Encounter Location Date Provider Diagnosis [address] [place], [place] [phone] 02/20/2025 Caren Jones Type 2 diabetes eugene itus without complication E11.9 ; Chronic renal impairment, stage 3 (moderate) N18.3 ; Atherosclerosis of [place] coronary artery without angina pectoris, unspecified whether [place] or transplanted heart I25.10 ; Cough R05.9 [...] (moderate) (ICD-10 - N18.3) 02/20/2025 Atherosclerosis of [place] coronary artery without angina pectoris, unspecified whether [place] or transplanted heart (ICD-10 - I25.10) 02/20/2025 [...] 2 Months,and prn, Reason: Provider Name:Jeffrey Taylor , 06/06/2025 03:03:00 PM, [address], [address] , [place], [place], [id number], Progress Notes * ALEXA FUENTESDOB:1950 (74 yo M)Acc No.[id number]:02/20/2025 Progress Notes Patient: ALEXA URIOSTEGUI Provider: CASEY Bradshaw :1950 A ge:74 Y S ex:Male Date:02/20/2025 Address:[address] [id number] Pcp:Jeffrey Sun Subjective: * Chief Complaints: * 1 . [facility] HOME VISIT. 2. HISTORY AND PHYSICAL. * HPI: H PI: For routine Long [...] * Surgical History: K idney Stone Removal- [facility] 2006, Prostate- [facility] 2010, Heart Cath & ECHO 04/2017. * Hospitalization/Major Diagno stic Procedure: C ovid-19- [facility] 2020, Respiratory Failure- and [facility] 2020, Stage 4 Chronic Kidney Disease, GFR [...] Liquid 30 ml Orally bid , Not-Taking [place] Oil (Otic) - Oil bid left ear [...] - N18.3 4 . A therosclerosis of [place] coronary artery without angina pectoris, unspecified whether [place] or transplanted heart - I25.10 5 . [...] * Images: Billing Information: * Visit Code: 89544 subs. level 4. * Procedure Codes: * Electronic signature of Vanita Jones APRN on 06/06/2025 at 03:27 PM EDT Sign off status: Pending * Provider: CASEY Bradshaw Date: 02/20/2025 Generated for Areli berkowitz/Jessie/Pablo on: 06/06/2025 03:27 PM EDT History and Physical Notes * Examination Category Sub-Category Detail Notes Category Not es General Examination Heart: RRR Lungs: CTAB A&P Abdomen: bowel sounds present , soft and nontender General Appearance: NAD, alert, pleasant ; lying in bed on his left side watching TV
--- OUTSIDE RECORDS SUMMARY | 2025-05-02 20:00 | XMS_ITS | Continuity of Care Document ---
Author Organization [address] [place] [address] Address [address] [facility] [address] [place] [address] Phone Care Team Providers Care Micro Computer Specialist Name Role Phone Laz Taylor NP Unavailable Unavailable Allergies, Adverse Reactions, Alerts Substance Reaction Status [...] topical patch - Active Procedures Procedure Date Trim normal nail, any number Debride mycotic nails 5 or less 025 COMPRE OPH EXAM NEW PT 1/> Trim Dystrophic nail(s) DEBRIDE NAIL 1-5 SBSQ NF CARE SF MDM 10 REMOVE IMPACTED EAR WAX Prophylaxis - Adult Compsve Oral Eval- New/Est Pat Complete Series Of Radiographic Images A Advance Directives Directive Yes / No Effective Date File Name No Information Encounters Encounter Description Practice Location Reason(s) For Visit Diagnoses Date Provider Providers Copied on Encounter [address] [place] [address], [id number], tel:[phone] [place] Nail dystrophyOnycho gryphosisOther specified peripheral vascular diseases 5 [place], [place]. [address] [place] [address], [id number], tel:[phone] [place] Blurry vision (chief complaint) Unspecified blepharoconjunc tivitis, bilateralPresen ce of intraocular lens 5 [facility] [place] Referring Provider: Jeffrey Sun. [address] [place] [address], [place], [place], [id number], tel:[phone] [place] Nail dystrophyOnycho gryphosisOther specified peripheral vascular diseasesOther abnormalities of gait and mobility 5 [place], [place]. SBSQ NF CARE SF MDM [address] [place] [address], [id number], tel:[phone] [place] ear care exam (chief complaint) Pruritus, unspecified 5 [facility] , [place]. Referring Provider: Jeffrey Sun. [address] [place] [address], [address] [place] [address], [place], [place], [id number], tel:[phone] [place] ear care exam, hearing loss (chief complaint) Impacted cerumen, bilateral 5 [facility] , [place]. Referring Provider: Jeffrey Sun. [address] [place] [address], [id number] [place] [address], [place], [place], [id number], tel:[phone] [place] Encounter for dental examination and cleaning without abnormal findings 4 Piedad Coronado. [address] [facility], [facility] [address], [place], [place], [id number], . tel:[phone] Referring Provider: Jeffrey Sun. [address] [place] [address], [address] [place] [address], [place], [place], [address] [place] [address], tel:[phone] [place] No Information 4 Piedad Coronado. [address] [facility], [place] [address], [place], [place], [id number], . tel:[phone] Family History Family Member Type Diagnosis Age At Onset No Information Payers Payer name Insurance type Covered alliance party ID Authoriza tion(s) Medicare [facility] [id number] Medicaid [place] [id number] Social History Type Description Quantity Date Captured Comments Alcohol Use Details Unknown Caffeine Use Details Unknown Tobacco Use Status No Information Smoking Status No Information Sex Male Chief Complaint And Reason For Visit No Information Reason For Referral Reason For Referral No Information Plan Of Treatment Date Type Action Status Appointment Nicolás Saldana Medicaid Only . BOOKED Appointment Nicolás Saldana BOOKED History Of Present Illness Encounter Date Complaint History Of Prese nt Illness Blurry vision The 74 year old patient presents for evaluation of Blurry vision in the right eye and left eye. Has readers for fine print since cataract surgery. Has readers at home It affects near vision. The condition is mild. Functional Status Date Functional Assessmen t No Information Instructions Date Instruction Additional Infor nelsonion All of the documente d thickened nails (which includes those nails 2 mm or more in thickness, and possible mycotic component to the nails) were debrided in both length and thickness using both a nail nipper and an electric rotary shear grinder operator in an atraumatic fashion as needed ; this was performed in an attempt to prevent pain and reduce risk of infection. Alcohol applied to the digits afterwards. PT tolerated procedure well. 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 Reinforced the importance of proper adherence to using the larisa hose, and compression stockings. Will continue to monitor. Related to Other specified peripheral vascular diseases All documented dystr ophic nails were trimmed in length as needed to prevent pain and other symptoms. Patient tolerated procedure well. Related to Nail dystrophy Impression/Plan - Mi ld mucus cleaned with ocusoft scrub. Recheck 4 mos or prn Related to Unspecified blepharoconjunctivitis, bilateral Impression/Plan - Im plants are clear and stable in both eyes. We will monitor at regular intervals. Only needs readers Related to Unspecified blepharoconjunctivitis, bilateral Follow up - Return i n 4-6 months for lids eval. All of the documente d thickened nails (which includes those nails 2 mm or more in thickness, and possible mycotic component to the nails) were debrided in both length and thickness using both a nail nipper and an electric rotary shear grinder operator in an atraumatic fashion; this was performed in an attempt to prevent pain and reduce risk of infection. Alcohol applied to the digits afterwards. Related to Onychogryphosis Discussed using comp ression stockings to assist in localize swelling and venous return, and the fci benefits of using compression stockings. Reinforced the importance of proper adherence to using the larisa hose, and compression stockings. Will continue to monitor. Related to Other specified peripheral vascular diseases PT instructed to con tinue use of DME equipment for safety, mobility, and reducing risk of falls/injury. Will continue to monitor. Pt denies recent falls in the past 3 months. Related to Other abnormalities of gait and mobility All documented dystr ophic nails were reduced in length as needed to prevent pain and other symptoms. Related to Nail dystrophy F/U in 9-12 months o r sooner prn. F/u with Audiology as scheduled. Related to Pruritus, unspecified Performed cerumen re moval as per protocol. AU cleared. Follow up for reevaluation for chronic cerumen impaction. Would recommend audiology referral if patient, family, physician, and/or facility wishes to pursue audiology services. Related to Impacted cerumen, bilateral Assessments Type Assessment Date assessment Nail dystrophy assessment Onychogryphosis assessment Other specified peripheral vascu lar diseases Patient Care Teams Name Effective Dates (start - stop) Status Members No Information
--- OUTSIDE RECORDS SUMMARY | 2025-05-08 12:15 | XMS_ITS ---
[facility] Address [address] [place] [id number] Care Team Providers Care Ict Sales Representative Name Role Phone Jeffrey Sun Primary Care Provider Caren Jones Unavailable [phone] Allergies No Known Allergies REASON FOR VISIT [...] TABLET TWICE DAILY Active Vital Signs Weight 251.8 lbs 05/08/2025 Blood pressure systolic 152 mm Hg 05/08/20 25 Blood pressure diastolic 77 mm Hg 025 Heart Rate 68 /min 05/08/2025 Respiratory Rate 20 /min 05/08/2025 Encounters Encounter Location Date Provider Diagnosis [address] [place], [place] [id number] 05/08/2025 Caren Jones Type 2 diabetes eugene itus without complication E11.9 ; Atherosclerosis of [place] coronary artery without angina pectoris, unspecified whether [place] or transplanted heart I25.10 ; Cough R05.9 [...] complication (ICD-10 - E11.9) 05/08/2025 Atherosclerosis of [place] coronary artery without angina pectoris, unspecified whether [place] or transplanted heart (ICD-10 - I25.10) 05/08/2025 [...] Name:Jeffrey Taylor ry, 06/06/2025 03:03:00 PM, [address] [facility] [address], [place], [place], [id number], Progress Notes * ALEXA FUENTESDOB:1950 (74 yo M)Acc No.[id number]:05/08/2025 Progress Notes Patient: ALEXA URIOSTEGUI Provider: CASEY Bradshaw :1950 A ge:74 Y S ex:Male Date:05/08/2025 Address:[address] [facility] [address], [place], [id number] Pcp:Jeffrey Sun Subjective: * Chief Complaints: * 1 . [facility] HOME VISIT. * HPI: H PI: For routine [facility] visit; chart reviewed and patient examined; see [...] * Surgical History: K idney Stone Removal- [facility] 2006, Prostate- [facility] 2010, Heart Cath & ECHO 04/2017. * Hospitalization/Major Diagno stic Procedure: C ovid-19- [facility] 2020, Respiratory Failure- and [place] [facility] 2020, Stage 4 Chronic Kidney Disease, GFR [...] Orally Three times a Week M,W, , Notes to Pharmacist: to be given [...] Liquid 30 ml Orally bid , Discontinued [place] Oil (Otic) - Oil bid left ear Otic bid x 7 days and prn * Allergies: N .K.D.A. Objective: * Vitals: W t: 251.8, Temp: 97, BP: 152/77, HR: 68, O2 Sat: 96%, Nurse: reviewed/recorded by monique, RR: 20. * [...] - E11.9 3 . A therosclerosis of [place] coronary artery without angina pectoris, unspecified whether [place] or transplanted heart - I25.10 4 . [...] * Images: Billing Information: * Visit Code: 37156 subs. level 4. * Procedure Codes: * Electronic signature of Vanita Jones APRN on 06/06/2025 at 03:28 PM EDT Sign off status: Pending * Provider: CASEY Bradshaw Date: 05/08/2025 Generated for Areli Hinton on: 0 06/06/2025 03:28 PM EDT History [...]
[2025-06-06] VITALS (7 sets, daily range): BP systolic 103–126; BP diastolic 44–77; PULSE 61–89; RESP 18–26; TEMP 36.9–37; O2SAT 88–98; BMI 25.7
--- NOTE | 2025-06-06 15:10 | PC.NURSE ---
PT ARRIVES VIA EMS FOR ALTERED MENTAL STATUS, EN ROUTE PT WITH RIGHT SIDED WEAKNESS AND NOT FOLLOWING COMMANDS FROM EMS, STROKE ALERT CALLED BY EMS. MD NOTIFIED. WILL ASSESS PT IN ROOM. PT IS DIALYSIS PT WITH OLD FISTULA TO RIGHT ARM. PT DIFFICULT IS STICK. ATTEMPTED X 2 PER EMS. IVUS [address]ED [address]. GREY AND PT TAKEN TO CT
--- NOTE | 2025-06-06 15:14 | PC.NURSE ---
FSBS 90 at this time.
--- OUTSIDE RECORDS SUMMARY | 2025-06-06 15:27 | XMS_ITS | Patient Health Record ---
Author Organization [facility] Address [address] [place] [address] Care Team Providers Care Car Ferrier Name Role Phone BRIANNA JEAN Unavailable [phone] Reason For Referral No Information Medications Medication SIG (Take, Route, Frequency, Duration) Notes Start Date End Date Status NIFEdipine ER 30 MG 2 tablets on an empty stomach Orally Once a day Active Pneumovax 23 25 MCG/0.5ML 0.5 ml Injection once a day Active Eliquis 2.5 MG 1 tablet Orally twice a day Active Magnesium Oxide 400 MG 1 capsules at bedtime as needed Orally twice a day Active Metoprolol Succinate 25 MG 1/2 tablet Orally Once a day Active Vancomycin HCl 750 MG as directed Intravenous Once a day on Wed,Wed,Wed,Wed Active Ferrous Sulfate 325 (65 Fe) MG 1 tablet Orally Once a day Active Loperamide HCl 2 MG 1 tablet as needed Orally every 6 hrs Active Sevelamer Carbonate 800 MG 1 tablet with meals Orally once a day Active Atorvastatin Calcium 80 MG 1 tablet Orally Once a day Active Carvedilol 3.125 MG 1 tablet Orally Twice a day Active Cetirizine HCl 10 MG 1 tablet Orally Onc e a day Active Pantoprazole Sodium 40 MG 1 tablet oral once a day Active Acetaminophen 325 MG 1 tablet as needed Orally every 6 hrs Active Robitussin 12 Hour Cough 30 MG/5ML 10 ml as needed Orally every 4 hrs Active Amiodarone HCl 200 MG 1 tablet Intraveno us twice a day Active Heparin (Porcine) in NaCl (PF) 1 ml inj ever y8 hrs Active Cholecalciferol 50 MCG (2000 UT) 1 capsule Orally Once a day Active Cyanocobalamin 1000 MCG 1 tablet Orally Once a day Active Problems Problem Type SNOMED Code ICD Code Onset Dates Problem Status W/U Status Risk Notes Problem Hyperkalemia (72462444) Hyperkalemia (E87.5) Active confirmed Problem End stage renal disease (69505349) End stage renal disease (N18.6) Active confirmed Problem Atrial fibrillation (05226403) Atrial fibrillation (I48.91) Active confirmed Problem Benign hypertension (95015817) Benign hypertension (I10) Active confirmed Problem Dependence on hemodialysis (223146518) Dependence on hemodialysis (Z99.2) Active confirmed Plan Of Treatment No Information Insurance Providers Payer Name Payer Address Payer Phone Subscriber Number Group Number Insured Name Patient Relationship to Insured Coverage Start Date Coverage End Date [employer] MEDICARE [address] [address] [place] [address] [phone] [id number] ALEXA FUENTES Self - patient is the insured
--- OUTSIDE RECORDS SUMMARY | 2025-06-06 15:28 | XMS_ITS | Clinical Summary ---
Author Organization [facility] Address [address] [place] [address] Care Team Providers Care Government Property Inspector Name Role Phone Unavailable Primary Care Provider Unavailabl e Source Comments This information has been disclosed to you from confidential records protectedfrom disclosure by state law. You shall make no further disclosure of thisinformation without the specific, written, and informed release of theindividual to whom it pertains, or as otherwise permitted by law. A generalauthorization for the release of medical or other information is not sufficientfor the purposes of therelease of HIV test results or diagnoses. [id number] Health Allergies No known active allergies Medications calcium acetate,phosphat bind, (PHOSLO) 667 mg capsule Take 1 capsule (667 mg total) by mouth 3 times a day with meals. Active pantoprazole (PROTONIX) 40 MG tablet Take 1 tablet (40 mg total) by mouth every morning before breakfast. Active ferrous sulfate 324 mg (65 mg iron) TbEC Take 1 tablet (324 mg total) by mouth daily with breakfast. Active amiodarone (PACERONE) 200 MG tablet Take 1 tablet (200 mg total) by mouth daily. Active losartan (COZAAR) 100 MG tablet Take 1 tablet (100 mg total) by mouth daily. Active cyanocobalamin (VITAMIN B-12) 1000 MCG tablet Take 1 tablet (1,000 mcg total) by mouth daily. Active cetirizine (ZYRTEC) 10 MG chewable tablet Chew 1 tablet (10 mg total) by mouth daily. Active cholecalciferol, vitamin D3, 1000 units tablet Take 1 tablet (1,000 Units total) by mouth daily. Active atorvastatin (LIPITOR) 80 MG tablet Take 1 tablet (80 mg total) by mouth daily. Active ELIQUIS 2.5 mg Tab Take by mouth. 10/02/2022 Active darbepoetin malachi in polysorbate (ARANESP) 40 mcg/0.4 mL injection Inject subcutaneous ly. 09/04/2022 Active lidocaine (LIDODERM) 5 % 05/26/2023 Acti ve Active Problems Problem Noted Date Diagnosed Date DM2 (diabetes mellitus, type 2) 07/06/2023 Pre-transplant evaluation for kidney transplant 06/28/2023 ESRD (end stage renal disease) 06/28/2023 HTN (hypertension) 06/28/2023 BCC (basal cell carcinoma), face 06/28/2023 CHF (congestive heart failure) 06/28/2023 Anemia 06/28/2023 HLD (hyperlipidemia) 06/28/2023 Social History Tobacco Use Types Packs/Day Years Used Date Smoking Tobacco: Former Cigarettes 12 10 1 977 - 2006 Tobacco Cessation:Counseling Given: Not Answered Sex and Gender Information Value Date Recorded Sex Assigned at Not on file Legal Sex Male 1:38 PM EDT Gender Identity Not on file Sexual Orientation Not on file Last Filed Vital Signs Vital Sign Reading Time Taken Comments Blood Pressure - - Pulse - - Temperature - - Respiratory Rate - - Oxygen Saturation - - Inhaled Oxygen Concentration - - Weight 104.3 kg (230 lb) 04/06/2023 7:00 AM EDT Height 193 cm (6' 4 ) 04/06/2023 7:00 AM EDT Body Mass Index 28 04/06/2023 7:00 AM EDT Plan of Treatment Not on file Insurance [employer] CHO[employer] PPO MEDICARE [address] [place] [address]
--- OUTSIDE RECORDS SUMMARY | 2025-06-06 15:28 | XMS_ITS | Clinical Summary ---
Author Organization [facility] Address [address] [place] [address] Care Team Providers Care Proprietary Trader Name Role Phone Jeffrey Sun MD Primary Care Provider [phone] Donny Garcai MD Unavailable [phone] Tutu Bliss MD Unavailable [phone] Allergies No known active allergies Medications atorvastatin (Lipitor) 80 MG tablet Take 1 tablet (80 mg) by mouth 1 (one) time each day. Active pantoprazole (Protonix) 40 MG EC tablet Take 1 tablet (40 mg) by mouth 1 (one) time each day before breakfast. Do not crush, chew, or split. Active cetirizine (ZyrTEC) 10 MG tablet Take 1 tablet (10 mg) by mouth 1 (one) time each day. Active cyanocobalamin (Vitamin B-12) 1000 MCG tablet Take 1 tablet (1,000 mcg) by mouth 1 (one) time each day. Active acetaminophen (Tylenol) 325 MG tablet Take 2 tablets (650 mg) by mouth every 6 (six) hours if needed. Active amiodarone (Pacerone) 200 MG tablet Take 1 tablet (200 mg) by mouth 2 (two) times a day. 3 Active Eliquis 2.5 MG tablet Take 1 tablet (2.5 mg) by mouth 2 (two) times a day. 3 Active B complex-vitamin C-folic acid (Nephro-Zack) 1 MG tablet Take 1 tablet by mouth 1 (one) time each day. Active montelukast (Singulair) 10 MG tablet Take 1 tablet (10 mg) by mouth 1 (one) time each day. Active fluticasone (Flonase) 50 MCG/ACT nasal spray Administer 1 spray into each nostril 1 (one) time each day. Shake gently. Before first use, prime pump. After use, clean tip and replace cap. Active calcitriol (Rocaltrol) 0.5 MCG capsule Take 1 capsule (0.5 mcg) by mouth 3 (three) times a week. On Wednesday, and Wednesday at [facility] Active Methoxy PEG-Epoetin Beta (Mircera) 75 MCG/0.3ML solution prefilled syringe Inject 75 mcg as directed every 14 (fourteen) days. at [facility] Active iron sucrose (Venofer) 20 MG/ML injection Infuse 2.5 mL (50 mg) into a venous catheter every 7 (seven) days. On at [facility] Active loperamide (Imodium A-D) 2 MG tablet Take 1 tablet (2 mg) by mouth 4 (four) times a day if needed for diarrhea. 30 tablet 4 Active traZODone (Desyrel) 100 MG tablet Take 1 tablet (100 mg) by mouth at night if needed for sleep. 4 Active sevelamer (Renagel) 800 MG tablet Take 2 tablets (1,600 mg) by mouth 3 (three) times a day with meals. Swallow tablet whole; do not crush, break, or chew. Active Active Problems Problem Noted Date Diagnosed Date Arteriovenous fistula occlusion 12/02/2023 Failing arteriovenous fistula, initial encounter 11/26/2023 Basal cell carcinoma of face 10/12/2022 Acute on chronic anemia 08/15/2022 Sacral decubitus ulcer, stage III 08/15/2022 ESRD (end stage renal disease) 08/13/2022 Mixed hyperlipidemia 08/13/2022 Prediabetes 08/13/2022 Chronic kidney disease-mineral and bone disorder 08/13/2022 Gastroesophageal reflux disease without esophagi tis 08/13/2022 Obesity (BMI 30-39.9) 08/13/2022 Permanent atrial fibrillation 08/13/2022 Anemia due to stage 4 chronic kidney disease Vitamin D deficiency 08/18/2018 Essential hypertension 08/10/2018 Resolved Problems Problem Noted Date Diagnosed Date Resolved Date Malfunction of arteriovenous dialysis fistula, initial encounter 03/23/2024 03/30/2024 Pneumonia of both lower lobe s due to infectious organism 08/15/2022 09/02/2022 Acute cystitis without hematuria 08/15/2022 09/02/2022 Hyperkalemia 08/14/2022 09/02/2022 Metabolic acidosis 08/13/2022 Acute on chronic respiratory failure with hypoxemia 08/13/2022 09/02/2022 Acute on chronic combined sy stolic (congestive) and diastolic (congestive) heart failure 08/13/2022 09/02/2022 Acute renal failure superimp osed on stage 4 chronic kidney disease, unspecified acute renal failure type 08/12/2022 06/03/2025 MERLYN (acute kidney injury) 11/22/2020 CKD (chronic kidney disease) stage 4, GFR 15-29 ml/min 07/31/2019 08/13/2022 Nephrotic range proteinuria 08/26/2018 08/13/2022 Diabetes mellitus 08/10/2018 08/13/2022 Immunizations Immunization Administration Dates Next Due Hep B, adult 12/04/2020 Influenza, High-dose, Split Virus, Trivalent, Injectable, preservative free 08/31/2019,06/06/2018,06/04/2017,06/01 Influenza, high-dose, quadrivalent 07/03,06/28/2020,08/31/2019,06/06,06/04/2017,06/01/2016 Influenza, seasonal, injectable 06/13/2020 Megan COVID-19 Vaccine (Bl ue Cap) 18+ 04/08/2021 PPD Skin Test (TB Skin Test) 03/16/2024, 03/09/2024,12/21/2020,12/12 Pneumococcal Polysaccharide PPV23 01/30/2017 Tdap 01/30/2017 Family History Medical History Relation Name Comments Cancer Father Anesthesia problems Neg Hx Malig Hyperthermia Neg Hx Relation Name Status Comments Father Social History Tobacco Use Types Packs/Day Years Used Date Smoking Tobacco: Former Cigarettes Q uit: 2007 Smokeless Tobacco: Never Tobacco Cessation:Counseling Given: Not Answered Alcohol Use Standard Drinks/Week Comments Not Currently 0 (1 standard drink = 0.6 oz pur e alcohol) Humiliation, Afraid, Rape, and Kick questionnair e Answer Date Recorded Within the last year, have y ou been afraid of your partner or ex-partner? No 03/24/2024 Within the last year, have y ou been humiliated or emotionally abused in other ways by your partner or ex-partner? No Within the last year, have y ou been kicked, hit, slapped, or otherwise physically hurt by your partner or ex-partner? No 03/24/2024 Within the last year, have y ou been raped or forced to have any kind of sexual activity by your partner or ex-partner? No 03/24/2024 PHQ-2 Answer Date Recorded Patient Health Questionnaire-2 Score 0 06/28/2024 Hunger Vital Sign Answer Date Recorded Within the past 12 months, y ou worried that your food would run out before you got the money to buy more. Never true 03/24/20 24 Within the past 12 months, t he food you bought just didn't last and you didn't have money to get more. Never true 03/24/2024 PRAPARE - Transportation Answer Date Re corded In the past 12 months, has l ack of transportation kept you from medical appointments or from getting medications? No 03/13 In the past 12 months, has l ack of transportation kept you from meetings, work, or from getting things needed for daily living? No 03/24/2024 Housing Stability Vital Sign Answer Ortiz e Recorded In the last 12 months, was t here a time when you were not able to pay the mortgage or rent on time? No 03/24/2024 [address] of Places Lived in the Last Year Not on f ile 03/24/2024 In the last 12 months, was t here a time when you did not have a steady place to sleep or slept in a mcfp (including now)? No 03/24/2024 CAGE ASSESSMENT Answer Date Recorded Cage unable to access Not on file 11/27/2023 Cage max number of drinks Not on file 2023 Cage Beverages a week Not on file 11/27/2023 Have you ever felt you should CUT down on your d rinking? 0 11/27/2023 Have you been ANNOYED by people criticizing your drinking? 0 11/27/2023 Have you felt GUILTY about your drinking? 0 11/27/2023 Have you had a drink first t ana in the morning (E[employer]-BELT P[employer]CHER) to steady your nerves or to get rid of a hangover? 0 11/27/2023 CAGE Questionnaire Score 0 024 Utilities Answer Date Recorded In the past 12 months has th [employer], gas, oil, or water [employer] threatened to shut off services in your home? No 03/24/2024 PHQ-2A Answer Date Recorded Patient Health Questionnaire-2 Score 0 05/03/2023 Sex and Gender Information Value Date Recorded Sex Assigned at Male 04/14/2022 8:25 AM EDT Legal Sex Male 7:04 PM EDT Gender Identity Male 04/14/2022 8:25 AM EDT Sexual Orientation Straight 11/27/2023 7: 58 PM EDT Last Filed Vital Signs Vital Sign Reading Time Taken Comments Blood Pressure 147/84 07/28/2024 1:30 PM EST Pulse 60 07/28/2024 1:30 PM EST Temperature 36.3 C (97.3 F) 07/28/2024 10:00 AM EST Respiratory Rate 17 07/28/2024 1:30 PM EST Oxygen Saturation 95% 07/28/2024 1:30 PM EST Inhaled Oxygen Concentration - - Weight 109 kg (241 lb 2.9 oz) 07/28/2024 9:59 AM EST Height 193 cm (6' 4 ) 07/28/2024 9:59 AM EST Body Mass Index 29.36 07/28/2024 9:59 AM EST Plan of Treatment Health Maintenance Due Date Last Done Comments [facility]icare Annual Wellness (AWV) 1950 [facility]-Infant/Child/Adol SDOH Screenings 1950 [facility]- SDOH Screenings 1966 [facility]-Adult SDOH Screenings 1966 [facility]-Zoster Vaccines (1 of 2) 12/09/1967 [facility]-RSV Vaccine: 60+ Years or (1 - 1-dose 75+ series) 12/09/2023 [facility]-Diabetes: Hemoglobin A1C 11/27/2024 11/28/2023, 08/13/2022 [id number] Vaccine (3 - 2024- season) 2025 08/20/2021, 04/08/2021 [facility]-Influenza Vaccine (#1) 05/14/202507/03, 06/28/2020, 06/13/2020, Additional history exists [facility]-Depression Screening 06/28/2025 06/28/2024 [facility]-DTaP,Tdap,and Td Vaccines (2 - Td or Tdap) 01/30/2027 01/30/2017 [facility]-Pneumococcal Vaccine: 50+ Years Completed 01/30/2017, 09/02/2015 Colonoscopy Discontinued 11/21/2020 [facility]-Colorectal Cancer Screening Discontinued [facility]-Hepatitis C Screening Completed 2023, 11/27/2023, 11/26/2023, Additional history exists [facility]-Obesity Intervention Completed 024, 07/28/2024, 04/17/2024, Additional history exists CT Colonography Discontinued FIT-DNA Discontinued FIT Discontinued FOBT Discontinued HPV Vaccines Aged Out No longer eligi ble based on patient's age to complete this topic Sigmoidoscopy Discontinued [facility]-HIB Vaccines Aged Out No longer e ligible based on patient's age to complete this topic [facility]-Hepatitis A Vaccines Aged Out No longer eligible based on patient's age to complete this topic [facility]-IPV Vaccines Aged Out No longer e ligible based on patient's age to complete this topic [facility]-Rotavirus Vaccines Aged Out No lo nger eligible based on patient's age to complete this topic Medical Devices Implanted Type Area Charter Driver Device Identifier Shelf Expiration Date Model / Serial / Lot Stent Aortic Iliac 8 X 5 - [id number] Implanted:Qty: 1 on 09/01/2022 by Tenisha Ring RN at [facility] [employer]-[id number] 08/13/2024 [id number] / [id number] / [id number] Stent Endoprosthesis Viabahn 8fr [id number] - [id number] - [id number] Implanted:Qty: 1 on 11/30/2023 by Reji Chiu MD at [facility] [employer]-[id number] 04/27/2026 [id number] / [id number] / [id number] Stent Endoprosthesis Viabahn 9fr [id number] - [id number] - [id number] Implanted:Qty: 1 on 11/30/2023 by Reji Chiu MD at [facility] [employer]-[id number] 07/25/2026 [id number] / [id number] / [id number] Stent Endoprosthesis Viabahn 9fr [id number] - [id number] - [id number] Implanted:Qty: 1 on 11/30/2023 by Reji Chiu MD at [facility]-[id number] 08/25/2026 [id number] / [id number] / [id number] Stent Graft Iliac [id number] Viabahnbx - [id number] Implanted:Qty: 1 on 03/15/2024 by Li Ortiz RN at [facility]-[id number] 05/14/2025 [id number] / [id number] / [id number] Procedures Procedure Name Priority Date/Time Associated Diagnosis Comments ACUTE HEPATITIS PANEL Routine 03/25/2024 10:27 AM EDT HEMOGLOBIN A1C STAT 11/28/2023 3:50 AM EDT COLONOSCOPY 11/21/2020 from Last 3 Months or Most Recently Relevant to Health Maintenance Results * Acute Hepatitis Panel (03/25/2024 10:27 AM EDT) Hepatitis B Surf Antigen Negative Negative 03/25/2024 12:30 PM EDT [facility] Hepatitis C Antibody Negative Negative 03/25/2024 12:30 PM EDT [facility] Hepatitis A Antibody IgM Negative Negative 03/25/2024 12:30 PM EDT [facility] Hepatitis B Core Antibody IgM Negative Negative 03/25/2024 12:30 PM EDT [facility] Blood Arterial blood specimen / Unknown Arterial Puncture / Unknown 03/25/2024 10:27 AM EDT 03/25/2024 10:31 AM EDT [place] MD LAB BLOOD ORDERABLES Final Resul t Performing Organization Address [facility] de Phone Number [facility] [address] [place] [address] * Hemoglobin A1c (11/28/2023 3:50 AM EDT) Hemoglobin A1c 5.4 <5.7 % 11/28/2023 4:12 AM EDT [facility] Blood Venous blood specimen / Unknown Venipuncture / Unknown 11/28/2023 3:50 AM EDT 11/28/2023 3:57 AM EDT Narrative [facility] - 11/28/2023 4:12 AM EDT HA1C Interpretive Data: Diagnosis of Diabetes: Diabetic > or = 6.5% Pre-diabetic 5.7 to 6.4% Non-diabetic < or = 5.6% Glycemic Targets for Type I and Type II Diabetics: Non- Adults <7.0% Adults <6.0% Children and Adolescents <7.5% Source: [place] Diabetes [employer]. Standards of medical care in diabetes,2017. Diabetes Care.2017:40 (suppl 1):S1-S135. HbA1c assay performed by an ion-exchange chromatography method that is certified traceable to the DCCT. Erik Montilla MD LAB BLOOD ORDERABLES Final Resu lt Performing Organization Address [facility] de Phone Number [facility] [address] [place] [address] * COLONOSCOPY (11/21/2020) Anatomical Region Laterality Modality Endoscopy Narrative 11/21/2020 Ordered by an unspecified provider. Historical Provider GI PROCEDURE ORDERABLES July l Result from Last 3 Months or Most Recently Relevant to Health Maintenance Additional Health Concerns Infection Onset Date Last Indicated C. difficile 03/28/2024 03/28/2024 Insurance [place]ICARE [place] Advance Directives * Full Code (Latest Code Status on File) Date Activated Date Inactivated Comments 03/23/2024 3:08 AM 03/31/2024 12:27 PM Question Answer Comments Patient has decision-making capacity? Yes * DNR/DNI Date Activated Date Inactivated Comments 11/27/2023 11:59 PM 12/03/2023 4:12 PM Spoke with patient and during admission assessment/questions stated that he wishes to be made DNR. Patient GCS: 15 and alert/oriented x4. Voices that nephew (POA) has DNR paperwork at home for pt and will bring to hospital when able. Notified SALES MANAGER mail distribution scheme examiner. Question Answer Comments DNR determined on/before admission date? Yes Patient has decision-making capacity? Yes * Full Code Date Activated Date Inactivated Comments 11/26/2023 4:28 PM 11/27/2023 11:59 PM Question Answer Comments Patient has decision-making capacity? Yes * Full Code Date Activated Date Inactivated Comments 08/16/2022 10:21 AM 09/02/2022 7:54 PM Question Answer Comments Patient has decision-making capacity? Yes Care Teams Proprietary Trader Relationship Specialty Start Date End Date Jeffrey Sun MD [address] [facility] [address] [place] [address] PCP - General 01/24/21 Donny Garcia MD [address] [facility] [address] [place] [address] Surgeon Vascular Surgery 08/13/22 Tutu Bliss MD [address] [facility] [address] [place] [address] Consulting Physician Nephrology 08/13/22
--- OUTSIDE RECORDS SUMMARY | 2025-06-06 15:28 | XMS_ITS ---
Author Organization [facility] Address [address] [place] [address] Care Team Providers Care Basketball Player Name Role Phone Jeffrey Sun MD Primary Care Provider + [phone] Donny Garcia MD Unavailable [phone] Tutu Bliss MD Unavailable [phone] Active Problems Problem Noted Date Diagnosed Date [...] Vitamin D deficiency 08/18/2018 Essential hypertension 08/10/2018 Current Treatment and Therapy Plans No current plan information found. Past Treatment and Therapy Plans Lifetime Dose Tracking * Chemical Lifetime Dose Automatic Entry Manual Entr y Fluoro Time 82.5 minutes 82.5 minutes 0 minutes Air Kerma 2,947.3 mGy 2,947.3 mGy 0 mGy Air Kerma Area Product 66,102.8 Gym 66,102.8 Gym 0 Gym Resolved Problems Problem Noted Date Diagnosed Date [...]
--- OUTSIDE RECORDS SUMMARY | 2025-06-06 15:28 | XMS_ITS | Patient Health Record ---
[facility] [address] [place] [id number] Care Team Providers Care Clothing Room Supervisor Name Role Phone Jeffrey Sun Primary Care Provider Fausto Sherman Unavailable [phone] Caren Jones Unavailable [phone] Allergies No Known Allergies Results Component Value Reference Range Notes CXR Reviewed date:03/09/2025 11:42:30 AM Interpretation: Performing Lab: Notes/Report: H-Occult Blood, Stool Reviewed date:11/29/2024 03:03:39 PM Interpretation:Negative Performing Lab: Notes/Report: OB Negative Negative Reason For Referral No Information Medications Medication SIG (Take, Route, Frequency, Duration) Notes Start Date End Date Status Benzonatate 100 MG 2 capsule as needed orally q8h prn Active traZODone HCl 100 MG 1 tablet at bedtime Orally Once a day Active Mucinex DM 30-600 MG 1 tablet as needed Orally every 12 hrs Active Promethazine-DM 6.25-15 MG/5ML 5 mL as needed Orally every 6 hrs prn Active Midodrine HCl 10 MG 1 [...] - 30 ml Orally bid Ac tive Rocaltrol 0.5 MCG 1 capsule Orally Three times a Week M,W,F Active Vitamin B 12 500 MCG 2 tab(s) orally once a day Active Nephro-Azck 0.8 MG 1 tablet Orally Once a day 1 mg Active Fluticasone Propionate 50 MCG/ACT 1 spray in each nostril Nasally Once a day Active Montelukast Sodium 10 MG 1 tablet Orally Once a day Active Acetaminophen 500 MG 2 tablet as needed Orally every 6 hrs prn Active Oxygen - 2L/min continuous per nasal cannula as directed supplemental prn Active Regular Diet - as directed CCHO; DARLENE; no beans, bananas, oranges Active Cough Drops 5 MG 1 lozenge as needed Mouth/Throat every 3 hrs q1h prn Active Calmoseptine 0.44-20.6 % as directed Externally qd Active Iron Sucrose 20 MG/ML 2.5ml Intravenous M,W,F at dialysis Active Cetirizine HCl 10 MG 1 tab(s) orally once a day Active Zinc 220 (50 Zn) MG 1 capsule Orally Once a day Active Loperamide HCl 2 MG 1 capsule as needed Orally Four times a day Active Pantoprazole Sodium 40 MG 1 tab(s) orally once a day Active Atorvastatin Calcium 80 MG 1 tab(s) orally once a day Active Eliquis 2.5 MG 1 tab(s) orally 2 times a day Active Calcium Acetate (Phos Binder) 667 MG 1 tablet with meals Orally Three times a day with meals Active Amiodarone HCl 200 MG TAKE 1 TABLET TWICE DAILY Active Ondansetron 4 MG 1 tablet on the tongue and allow to dissolve Orally q8h prn Active Immunizations Vaccine Route Administration Date Status Comme nts COVID 19 Cardiostrong Unknown 04/08/2021 Administered COVID 19 Cardiostrong Unknown 08/20/2021 Administered Fluzone High Dose (65yr and older) IM Intramuscular 06/01/2014 Administered Fluzone High Dose (65yr and older) Unknown 06/01/2016 Administered Fluzone High Dose (65yr and older) IM Intramuscular 06/04/2017 Administered Fluzone High Dose (65yr and older) IM Intramuscular 06/06/2018 Administered Fluzone High Dose (65yr and older) IM Intramuscular 08/31/2019 Administered Fluzone High Dose (65yr and older) Unknown 06/28/2020 Administered Fluzone High Dose (65yr and older) IM Intramuscular 07/03/2021 Administered Hepatitis B (20 and more) Unknown 12/04/2020 Administer ed PNEUMOVAX 23 VACCINE IM Intramuscular 01/30/2017 Administe red Prevnar (PCV13) IM Intramuscular 09/02/2015 Administered Tetanus Tdap-Adacel (over 7yrs) IM Intramuscular 01/30/2017 Administered Problems Problem Type SNOMED Code ICD Code Onset Dates Problem Status W/U Status Risk Notes Problem Gastroesophageal reflux disease (789882945) GERD (gastroesophageal reflux disease) (K21.9) Active confirmed Problem Essential hypertension (60326097) Essential (primary) hypertension (I10) Active confirmed Problem Debility (51104151) Debility (R53.81) Active co nfirmed Problem Vitamin D deficiency (22772500) Vitamin D deficiency (E55.9) Active confirmed Problem Essential hypertension (35458725) Essential hypertension (I10) Active confirmed Problem Otitis externa (5446169) Otitis externa (H60.90) Active confirmed Problem Hypertriglyceridemia (472099365) Hypertriglyceridemia (E78.1) Active confirmed Problem Postherpetic neuralgia (1715158) Post herpetic neuralgia (B02.29) Active confirmed Problem Dyspepsia (738052825) Dyspepsia (K30) Active co nfirmed Problem Disorder of musculoskeletal system (194653) Leg weakness (R29.898) Active confirmed Problem Seasonal allergy (084684260) Seasonal allergies (J30.2) Active confirmed Problem Hypomagnesemia (791006670) Hypomagnesemia (E83.42) Active confirmed Problem Primary insomnia (0609832) Primary insomnia (F51.01) Active confirmed Problem Chronic kidney disease due to hypertension (594961806424443) Hypertensive chronic kidney disease with stage 1 through stage 4 chronic kidney disease, or unspecified chronic kidney disease (I12.9) Active confirmed Problem Chronic kidney disease stage 4 (638666934) Chronic kidney disease, stage 4 (severe) (N18.4) Active confirmed Problem End stage renal disease (03456811) End stage renal disease (N18.6) Active confirmed Problem Diabetic renal disease (690517823) Diabetes mellitus with stage 3 chronic kidney disease (E11.22) Active confirmed Problem Type II diabetes mellitus without complication (129926380) Type 2 diabetes mellitus without complication (E11.9) Active confirmed Problem COPD - Chronic obstructive pulmonary disease (21159353) Chronic obstructive pulmonary disease, unspecified COPD type (J44.9) Active confirmed Problem Leukocytosis (279511462) Leukocytosis, unspecified type (D72.829) Active confirmed Problem Anemia (960753331) Anemia, unspe cified type (D64.9) Active confirmed Problem Iron deficiency anemia (28587083) Iron deficiency anemia, unspecified iron deficiency anemia type (D50.9) Active confirmed Problem Atrial fibrillation (37719895) Atrial fibrillation, unspecified type (I48.91) Active confirmed Problem Difficulty sleeping (671762282) Sleep difficulties (G47.9) Active confirmed Problem Hyperlipidaemia (84448579) Hyperlipidemia, unspecified hyperlipidemia type (E78.5) Active confirmed Problem Chronic kidney disease stage 4 (637423459) CKD (chronic kidney disease) stage 4, GFR 15-29 ml/min (N18.4) Active confirmed Problem Pressure injury of sacral region of back (disorder) (572129784) Sacral decubitus ulcer (L89.159) Active confirmed Problem Atherosclerotic hear t disease of [place] coronary artery without angina pectoris (732088156213466) Atherosclerosis of [place] coronary artery without angina pectoris, unspecified whether [place] or transplanted heart (I25.10) Active confirmed Problem Chronic kidney disease stage 3 (354535478) Chronic renal impairment, stage 3 (moderate) (N18.3) Active confirmed Problem Chronic renal failur e syndrome (09994118) Chronic kidney disease, unspecified CKD stage (N18.9) Active confirmed Problem Acute exacerbation o f chronic obstructive airways disease (504779856) Acute exacerbation of chronic obstructive airways disease (J44.1) Active confirmed Problem Allergic rhinitis (89406553) Allergic rhinitis, unspecified seasonality, unspecified trigger (J30.9) Active confirmed Problem Type II diabetes mellitus without complication (738408590) Type 2 diabetes mellitus without complication, unspecified whether director long term care insulin use (E11.9) Active confirmed Problem Hyperphosphatemia (26592971) Hyperphosphatemia (E83.39) Active confirmed Problem Allergic rhinitis (26912217) Acute allergic rhinitis (J30.9) Active confirmed Problem Chronic kidney disease stage 5 (672529162) CKD (chronic kidney disease) stage 5, GFR less than 15 ml/min (N18.5) Active confirmed Problem Atherosclerotic hear t disease of [place] coronary artery without angina pectoris (433492326846951) 3-vessel coronary artery disease (I25.10) Active confirmed Vital Signs Heart Rate 68 /min 05/08/2025 Respiratory Rate 20 /min 05/08/2025 Blood pressure diastolic 77 mm Hg 05/08/2025 Blood pressure systolic 152 mm Hg 05/08/2025 Weight 251.8 lbs 05/08/2025 Encounters Encounter Location Date Provider Diagnosis [address] [place], [place] [id number] 06/13/2024 Carenalis Jones Type 2 diabetes eugene itus without complication E11.9 ; Essential hypertension I10 ; Hyperlipidemia, unspecified hyperlipidemia type E78.5 ; CKD (chronic kidney disease) stage 4, GFR 15-29 ml/min N18.4 ; Anemia, unspecified type D64.9 ; Atherosclerosis of [place] coronary artery without angina pectoris, unspecified whether [place] or transplanted heart I25.10 ; Chronic obstructive [...] L89.159 and GERD (gastroesophageal reflux disease) K21.[address] [place], [place] [id number] 09/12/2024 Caren Jones Type 2 diabetes eugene itus without complication E11.9 ; Essential hypertension I10 ; Hyperlipidemia, unspecified hyperlipidemia type E78.5 ; Anemia, unspecified type D64.9 ; Atherosclerosis of [place] coronary artery without angina pectoris, unspecified whether [place] or transplanted heart I25.10 ; Chronic obstructive [...] (gastroesophageal reflux disease) K21.9 and Bronchitis J40 [address] [place] [id number] 10/03/2024 Caren Jones Cough R05.9 ; Type 2 diabetes mellitus without complication E11.9 ; Essential hypertension I10 ; Hyperlipidemia, unspecified hyperlipidemia type E78.5 ; Anemia, unspecified type D64.9 ; Atherosclerosis of [place] coronary artery without angina pectoris, unspecified whether [place] or transplanted heart I25.10 ; Chronic obstructive [...] (gastroesophageal reflux disease) K21.9 and Bronchitis J40 [address] [place], [place] [id number] 11/07/2024 Caren Jones Cough R05.9 ; Type 2 diabetes mellitus without complication E11.9 ; Hyperlipidemia, unspecified hyperlipidemia type E78.5 ; Anemia, unspecified type D64.9 ; Atherosclerosis of [place] coronary artery without angina pectoris, unspecified whether [place] or transplanted heart I25.10 ; Chronic obstructive [...] L89.159 and GERD (gastroesophageal reflux disease) K21.[address] [place] [id number] 12/26/2024 Caren Jones Cough R05.9 ; Type 2 diabetes mellitus without complication E11.9 ; Hyperlipidemia, unspecified hyperlipidemia type E78.5 ; Anemia, unspecified type D64.9 ; Atherosclerosis of [place] coronary artery without angina pectoris, unspecified whether [place] or transplanted heart I25.10 ; Chronic obstructive [...] itching L29.9 and Acute allergic rhinitis J30.[address] [place], [place] [id number] 02/20/2025 Caren Joens Type 2 diabetes eugene itus without complication E11.9 ; Chronic renal impairment, stage 3 (moderate) N18.3 ; Atherosclerosis of [place] coronary artery without angina pectoris, unspecified whether [place] or transplanted heart I25.10 ; Cough R05.9 [...] disease) K21.9 and Acute allergic rhinitis J30.[address] [place], [place] [id number] 05/08/2025 Caren Jones Type 2 diabetes eugene itus without complication E11.9 ; Atherosclerosis of [place] coronary artery without angina pectoris, unspecified whether [place] or transplanted heart I25.10 ; Cough R05.9 [...] disease) K21.9 and Acute allergic rhinitis J30.9 [facility] [address] [place], [place] [id number] 06/05/2025 Jeffrey [place] [facility] [address] [place], [place] [id number] 06/06/2025 Jeffrey [place] [facility] [address] [place], [place] [id number] 06/15/2024 Jeffrey [place] [facility] [address] [place], [place] [id number] 10/27/2024 Caren Jones [facility] [address] [place], [place] [id number] 11/03/2024 Jeffery [place] [facility] [address] [place], [place] [id number] 11/27/2024 Jeffrey [place] [facility] [address] [place] [id number] 12/23/2024 Jeffrey [place] [facility] [address] [place], [place] [id number] 03/05/2025 Jeffrey [place] [facility] [address] [place] [id number] 03/09/2025 Jeffrey [place] [facility] [address] [place] [id number] 04/16/2025 Jeffrey [place] [facility] [address] [place] [id number] 04/18/2025 Jeffrey [place] [facility] [address] [place] [id number] 04/23/2025 Jeffrey [place] [facility] [address] [place], [place] [id number] 05/24/2025 Jeffrey [place] [facility] [address] [facility] [address] [place], [place] [id number] 06/05/2025 Fausto [place] Assessments Encounter Date Diagnosis (ICD Code) Assessment Notes Treatment Notes Treatment Clinical Notes Section Notes 06/13/2024 Essential hypertension (ICD-10 - I10) 06/13/2024 Type 2 diabetes mellitus without complication (ICD-10 - E11.9) 09/12/2024 Essential hypertension (ICD-10 - I10) 09/12/2024 Type 2 diabetes mellitus without complication (ICD-10 - E11.9) [facility] [place] diet 10/03/2024 Type 2 diabetes mellitus without complication (ICD-10 - E11.9) [facility] [place] diet 10/03/2024 Cough (ICD-10 - R05.9) will add Duonebs QID and continue with them prn; will change cough med to Phrnergan DM; will add Mucinex DM bid 11/07/2024 Type 2 diabetes mellitus without complication (ICD-10 - E11.9) [facility] [place] diet 11/07/2024 Cough (ICD-10 - R05.9) cough is better and to continue with duoneb prn 12/26/2024 Type 2 diabetes mellitus without complication (ICD-10 - E11.9) [facility] [place] diet 12/26/2024 Cough (ICD-10 - R05.9) 05/08/2025 Type 2 diabetes mellitus without complication (ICD-10 - E11.9) 02/20/2025 Type 2 diabetes mellitus without complication (ICD-10 - E11.9) 05/08/2025 Atherosclerosis of [place] coronary artery without angina pectoris, unspecified whether [place] or transplanted heart (ICD-10 - I25.10) 12/26/2024 Hyperlipidemia, unspecified hyperlipidemia type (ICD-10 - E78.5) 02/20/2025 Chronic renal impairment, stage 3 (moderate) (ICD-10 - N18.3) 11/07/2024 Hyperlipidemia, unspecified hyperlipidemia type (ICD-10 - E78.5) 10/03/2024 Essential hypertension (ICD-10 - I10) 09/12/2024 Hyperlipidemia, unspecified hyperlipidemia type (ICD-10 - E78.5) 06/13/2024 Hyperlipidemia, unspecified hyperlipidemia type (ICD-10 - E78.5) 06/13/2024 CKD (chronic kidney disease) stage 4, GFR 15-29 ml/min (ICD-10 - N18.4) on dialysis 3 x weekly 09/12/2024 Anemia, unspecified type (ICD-10 - D64.9) 10/03/2024 Hyperlipidemia, unspecified hyperlipidemia type (ICD-10 - E78.5) 11/07/2024 Anemia, unspecified type (ICD-10 - D64.9) 02/20/2025 Atherosclerosis of [place] coronary artery without angina pectoris, unspecified whether [place] or transplanted heart (ICD-10 - I25.10) 12/26/2024 Anemia, unspecified type (ICD-10 - D64.9) labs completed as ordered by dialysis; last Hgb noted to be 8; stool for OB noted to be negative; receives IV Iron at dialysis,W,F 05/08/2025 Cough (ICD-10 - R05.9) 05/08/2025 Hyperlipidemia, unspecified hyperlipidemia type (ICD-10 - E78.5) 12/26/2024 Atherosclerosis of [place] coronary artery without angina pectoris, unspecified whether [place] or transplanted heart (ICD-10 - I25.10) 02/20/2025 Cough (ICD-10 - R05.9) 11/07/2024 Atherosclerosis of [place] coronary artery without angina pectoris, unspecified whether [place] or transplanted heart (ICD-10 - I25.10) 10/03/2024 Anemia, unspecified type (ICD-10 - D64.9) 09/12/2024 Atherosclerosis of [place] coronary artery without angina pectoris, unspecified whether [place] or transplanted heart (ICD-10 - I25.10) 06/13/2024 Anemia, unspecified type (ICD-10 - D64.9) 06/13/2024 Atherosclerosis of [place] coronary artery without angina pectoris, unspecified whether [place] or transplanted heart (ICD-10 - I25.10) 09/12/2024 Chronic obstructive pulmonary disease, unspecified COPD type (ICD-10 - J44.9) 10/03/2024 Atherosclerosis of [place] coronary artery without angina pectoris, unspecified whether [place] or transplanted heart (ICD-10 - I25.10) 11/07/2024 Chronic obstructive pulmonary disease, unspecified COPD type (ICD-10 - J44.9) 12/26/2024 Chronic obstructive pulmonary disease, unspecified COPD type (ICD-10 - J44.9) 02/20/2025 Hyperlipidemia, unspecified hyperlipidemia type (ICD-10 - E78.5) 05/08/2025 Anemia, unspecified type (ICD-10 - D64.9) labs completed as ordered by dialysis; last Hgb noted to be 8; stool for OB noted to be negative; receives IV Iron at dialysis,W,F 02/20/2025 Anemia, unspecified type (ICD-10 - D64.9) labs completed as ordered by dialysis; last Hgb noted to be 8; stool for OB noted to be negative; receives IV Iron at dialysis,W,F 05/08/2025 Chronic obstructive pulmonary disease, unspecified COPD type (ICD-10 - J44.9) 11/07/2024 Allergic rhinitis, unspecified seasonality, unspecified trigger (ICD-10 - J30.9) 10/03/2024 Chronic obstructive pulmonary disease, unspecified COPD type (ICD-10 - J44.9) 09/12/2024 Allergic rhinitis, unspecified seasonality, unspecified trigger (ICD-10 - J30.9) 06/13/2024 Chronic obstructive pulmonary disease, unspecified COPD type (ICD-10 - J44.9) 06/13/2024 Allergic rhinitis, unspecified seasonality, unspecified trigger (ICD-10 - J30.9) 09/12/2024 End stage renal disease (ICD-10 - N18.6) on dialysis 3 x weekly 10/03/2024 Allergic rhinitis, unspecified seasonality, unspecified trigger (ICD-10 - J30.9) 11/07/2024 End stage renal disease (ICD-10 - N18.6) on dialysis 3 x weekly 05/08/2025 End stage renal disease (ICD-10 - N18.6) on dialysis 3 x weekly 12/26/2024 End stage renal disease (ICD-10 - N18.6) on dialysis 3 x weekly 02/20/2025 Chronic obstructive pulmonary disease, unspecified COPD type (ICD-10 - J44.9) 02/20/2025 End stage renal disease (ICD-10 - N18.6) on dialysis 3 x weekly 05/08/2025 Leg weakness (ICD-10 - R29.898) OOB as toerates; is OOB 3 x weekly when goes to dialysis; he does not like to get OOB otherwise; he states he cannot stand and lift is used for transfers 12/26/2024 Leg weakness (ICD-10 - R29.898) OOB as toerates; is OOB 3 x weekly when goes to dialysis; he does not like to get OOB otherwise 11/07/2024 Leg weakness (ICD-10 - R29.898) OOB as toerates; is OOB 3 x weekly when goes to dialysis 10/03/2024 End stage renal disease (ICD-10 - N18.6) on dialysis 3 x weekly 09/12/2024 Leg weakness (ICD-10 - R29.898) OOB as toerates; is OOB 3 x weekly when goes to dialysis 06/13/2024 End stage renal disease (ICD-10 - N18.6) on dialysis 3 x weekly 06/13/2024 Leg weakness (ICD-10 - R29.898) OOB as toerates; is OOB 3 x weekly when goes to dialysis 09/12/2024 Debility (ICD-10 - R53.81) 10/03/2024 Leg weakness (ICD-10 - R29.898) OOB as toerates; is OOB 3 x weekly when goes to dialysis 11/07/2024 Debility (ICD-10 - R53.81) 12/26/2024 Debility (ICD-10 - R53.81) 05/08/2025 Debility (ICD-10 - R53.81) 02/20/2025 Leg weakness (ICD-10 - R29.898) OOB as toerates; is OOB 3 x weekly when goes to dialysis; he does not like to get OOB otherwise; he states he cannot stand and lift is used for transfers 05/08/2025 CKD (chronic kidney disease) stage 5, GFR less than 15 ml/min (ICD-10 - N18.5) dialysis M,W,F 02/20/2025 Debility (ICD-10 - R53.81) 12/26/2024 CKD (chronic kidney disease) stage 5, GFR less than 15 ml/min (ICD-10 - N18.5) dialysis M,W,F 11/07/2024 CKD (chronic kidney disease) stage 5, GFR less than 15 ml/min (ICD-10 - N18.5) 09/12/2024 CKD (chronic kidney disease) stage 5, GFR less than 15 ml/min (ICD-10 - N18.5) 10/03/2024 Debility (ICD-10 - R53.81) 06/13/2024 Debility (ICD-10 - R53.81) 06/13/2024 CKD (chronic kidney disease) stage 5, GFR less than 15 ml/min (ICD-10 - N18.5) 09/12/2024 Atrial fibrillation, unspecified type (ICD-10 - I48.91) 11/07/2024 Atrial fibrillation, unspecified type (ICD-10 - I48.91) 10/03/2024 CKD (chronic kidney disease) stage 5, GFR less than 15 ml/min (ICD-10 - N18.5) 12/26/2024 Atrial fibrillation, unspecified type (ICD-10 - I48.91) 05/08/2025 Atrial fibrillation, unspecified type (ICD-10 - I48.91) 02/20/2025 CKD (chronic kidney disease) stage 5, GFR less than 15 ml/min (ICD-10 - N18.5) dialysis M,W,F 05/08/2025 Former smoker (ICD-10 - Z87.891) 02/20/2025 Atrial fibrillation, unspecified type (ICD-10 - I48.91) 12/26/2024 Former smoker (ICD-10 - Z87.891) 10/03/2024 Atrial fibrillation, unspecified type (ICD-10 - I48.91) 11/07/2024 Former smoker (ICD-10 - Z87.891) 09/12/2024 Former smoker (ICD-10 - Z87.891) 06/13/2024 Atrial fibrillation, unspecified type (ICD-10 - I48.91) 06/13/2024 Former smoker (ICD-10 - Z87.891) 09/12/2024 Sleep difficulties (ICD-10 - G47.9) 11/07/2024 Sleep difficulties (ICD-10 - G47.9) 10/03/2024 Former smoker (ICD-10 - Z87.891) 12/26/2024 Sleep difficulties (ICD-10 - G47.9) 05/08/2025 Sleep difficulties (ICD-10 - G47.9) 02/20/2025 Former smoker (ICD-10 - Z87.891) 05/08/2025 Sacral decubitus ulcer (ICD-10 - L89.159) wound care MD continues to follow pt with changes in care of the sacra wound currently as follows: cleanse wound bed with NS; collagen sheet to wound bed and then cover withsuper absorbent fiber with silicone dressing daily. 02/20/2025 Sleep difficulties (ICD-10 - G47.9) 12/26/2024 Sacral [...] soiling refpace foam and silicone dressing only 10/03/2024 Sleep difficulties (ICD-10 - G47.9) 11/07/2024 Sacral decubitus ulcer (ICD-10 - L89.159) wound care provider continues to follow pt; using med honey with Magic but cream around the wound 09/12/2024 Sacral decubitus ulcer (ICD-10 - L89.159) wound care naveen continues to follow pt; using med honey with Magic but cream around the wound 06/13/2024 Sleep difficulties (ICD-10 - G47.9) 06/13/2024 Sacral decubitus ulcer (ICD-10 - L89.159) wound care MD sees pt weekly ; nursing feels the wound is smaller 09/12/2024 GERD (gastroesophageal reflux disease) (ICD-10 - K21.9) 12/26/2024 GERD (gastroesophageal reflux disease) (ICD-10 - K21.9) 10/03/2024 Sacral decubitus ulcer (ICD-10 - L89.159) wound care provider continues to follow pt; using med honey with Magic but cream around the wound 11/07/2024 GERD (gastroesophageal reflux disease) (ICD-10 - K21.9) 05/08/2025 GERD (gastroesophageal reflux disease) (ICD-10 - K21.9) 02/20/2025 Sacral decubitus ulcer (ICD-10 - L89.159) [...] 05/08/2025 Acute allergic rhinitis (ICD-10 - J30.9) 12/26/2024 Otitis externa (ICD-10 - H60.90) encouraged to NOT put anything else into the ear canal 10/03/2024 GERD (gastroesophageal reflux disease) (ICD-10 - K21.9) 09/12/2024 Bronchitis (ICD-10 - J40) will add neb [place] 06/13/2024 GERD (gastroesophageal reflux disease) (ICD-10 - K21.9) 10/03/2024 Bronchitis (ICD-10 - J40) will restart scheduled nebs 12/26/2024 Ear itching (ICD-10 - L29.9) encourage pt not to put anything else into the ear canal 02/20/2025 Acute allergic rhinitis (ICD-10 - J30.9) 12/26/2024 Acute allergic rhinitis (ICD-10 - J30.9) 06/13/2024 Other Zofran added fo nausea 12/26/2024 Other DNR; need lab results from dialysis Plan Of Treatment Pending Test Test Name Order Date Lipid Profile 10/20/2023 Glycohemoglobin (HbA1C) 10/20/2023 TSH 10/20/2023 CMP 10/20/2023 Next Appt Details Provider Name:Jeffrey Taylor ry, 06/06/2025 03:03:00 PM, [address], [place], [place], [id number], Insurance Providers Payer Name Payer Address Payer Phone Subscriber Number Group Number Insured Name Patient Relationship to Insured Coverage Start Date Coverage End Date MEDICARE PART B [address] [address] [place] [id number] ALEXA FUENTES Self - patient is the insured Medications Administered Medication Instructions Date of Administration Dosage Notes Trulicity 11/26/2018 0.75 mg given in abdom en Medical (General) History Medical History History ICD Code Hypertension Type 2 Diabetes Hypercholestrolemia Hypertriglyceridemia Anemia Cataract Colon Polyps Atrial Fibrilation, 2018 Sleep Apnea Proteinuria Stage 4 Chronic Kidney Disease, stage 4 as of 2019, Nephrology Covid with Pneumonia, s/p [facility] 2 months an d SNF 5 months, 09/28/2020 ESKD with dialysis 3 times weekly Surgical History Surgery Date(Month/Year) Kidney Stone Removal- [facility] 2006 Prostate- [facility] 2010 Heart Cath & ECHO 04/2017 Hospitalization History Reason Date(Month/Year) Stage 4 Chronic Kidney Disease, GFR 15-2 9 ml/min 06/13- Respiratory Failure- and [facility] 2020 Covid-19- [facility] 2020
--- OUTSIDE RECORDS SUMMARY | 2025-06-06 15:28 | XMS_ITS | Encounter Summary ---
Author Organization [facility] Address [address] [place] [address] Care Team Providers Care Director Learning Services Name Role Phone Jeffrey Sun MD Primary Care Provider [phone] Donny Garcia MD Unavailable [phone] Tutu Bliss MD Unavailable [phone] Reason for Visit * Reason Comments Med Refill Encounter Details Date Type Department Care Team (Late st Contact Info) Description 07/15/2022 Refill [facility] [address], [address] [place] [address] Tutu Bliss MD [address] [place] [address] CKD (chronic kidney disease) stage 4, GFR 15-29 ml/min ([facility]); Primary hypertension; Nephrotic range proteinuria Social History Tobacco Use Types Packs/Day Years Used Date Smoking Tobacco: Former Cigarettes Q uit: 2006 Smokeless Tobacco: Never Alcohol Use Standard Drinks/Week Comments Not Currently 0 (1 standard drink = 0.6 oz pur e alcohol) PHQ-2 Answer Date Recorded Patient Health Questionnaire-2 Score 0 03/30/2022 Sex and Gender Information Value Date Recorded Sex Assigned at Male 04/14/2022 8:25 AM EDT Legal Sex Male 7:04 PM EDT Gender Identity Male 04/14/2022 8:25 AM EDT Sexual Orientation Straight 11/27/2023 7: 58 PM EDT documented as of this encounter Miscellaneous Notes * Telephone Encounter - Radha Haider LPN - 07/15/2022 8:21 AM EDT Note written in April 2022 stated that patient was to discontinue medication unless restarted after dialysis was initiated. Patient seen in [facility]. Refill not appropriate for this clinic. 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 difficile Rule-Out 08/12/2022 08/12/20222021 8:06 AM EST Respiratory Rule-Out 08/14/2022 08/14/2022 022 3:17 AM EST C. difficile Rule-Out 08/20/2022 08/20/20222021 2:01 PM EST Gastrointestinal Rule-Out 03/25/2024 03/26/2024 9:38 AM EDT C. difficile Rule-Out 03/28/2024 03/28/20242023 5:40 PM EDT C. difficile 03/28/2024 03/28/2024 Assessment Noted Time A fall risk assessment has been complete d for the patient 06/01/2022 9:26 AM EDT A Body Mass Index follow-up plan has been documented for the patient 11/02/2022 1:29 PM EST documented as of this encounter Care Teams Director Learning Services Relationship Specialty Start Date End Date Jeffrey Sun MD [facility] [address] [facility] PCP - General 01/24/21 Donny Garcia MD [address] [facility] [address] [place] [address] Surgeon Vascular Surgery 08/13/22 Tutu Bliss MD [address] [facility] [address] [place] [id number] Consulting Physician Nephrology 08/13/22 documented as of this encounter
--- OUTSIDE RECORDS SUMMARY | 2025-06-06 15:28 | XMS_ITS ---
Author Organization [facility] Care Team Providers Care Radio Interference Investigator Name Role Phone SHARON PRASAD Unavailable Unavailable Leonora Ward Unavailable Unavailab le Allergies and adverse reactions No Known Allergies Care Team Name Role Address Phone Organization Dates SHARON PRASAD PCP [address], [place], [address], [facility] (Office): : [facility] 01/30/2021 - 05/14/2021 Leonora Ward [address], [place], [address], [facility] (Office): : : [facility] 01/30/2021 - 05/14/2021 Immunizations Immunization Status Vaccine Details Vaccine Code CodeSystem Date Notes Influenza completed Influenza, split virus, trivalent, injectable, contains preservative 141 CVX created date: 12/13/2020 administere d date: 06/13/2020 TB 2 Step Mantoux Skin Test completed tuberculin skin test; purified protein derivative solution, intradermal Given 0.1 ml Left Forearm intradermally Step 2 of Multi-step with next step required 96 CVX created date: 12/23/2020 consent date: 12/23/2020 administere d date: 12/22/2020 TB 2 Step Mantoux Skin Test completed tuberculin skin test; purified protein derivative solution, intradermal Given 0.1 ml Left Forearm intradermally Step 1 of Multi-step with next step required 96 CVX created date: 12/13/2020 consent date: 12/13/2020 administere d date: 12/12/2020 Pneumovax cancelled pneumococcal vaccine, unspecified formulation 109 CVX created date: 12/13/2020 consent date: 12/13/2020 Inotec AMD (J&J) COVID-19 Vaccine completed SARS-COV-2 (COVID-19) vaccine, vector non-replicating, recombinant spike protein-Ad26, preservative free, 0.5 mL lotNumber: [id number] expiry: 05/19/2021 Mfg: VANESSAJOLYNNEN Given 0.5 ml Left Deltoid intramuscularly 212 CVX created date: 04/08/2021 consent date: 04/08/2021 administere d date: 04/08/2021 Mental Status Section Date Assessment Total Score Description 05/14/2021 BIMS 15 cognitively int act CAM 0 No delirium ind icated PHQ-9 00 03/18/2021 BIMS 13 cognitively int act PHQ-9 00 Problems Problem # Description Date of onset Resolved Date Code CodeSystem Concern Status 1 DIFFICULTY IN WALKING, NOT ELSEWHERE CLASSIFIED [address] active 2 MUSCLE WEAKNESS (GENERALIZED) [address] active 3 NEED FOR ASSISTANCE WITH PERSONAL CARE [address] active 4 OTHER LACK OF COORDINATION [address] active 5 CHRONIC OBSTRUCTIVE PULMONARY DISEASE, UNSPECIFIED [address] active 6 ENCEPHALOPATHY, UNSPECIFIED [address] active 7 GASTRO-ESOPHAGEAL REFLUX DISEASE WITHOUT ESOPHAGITIS [address] active 8 INSOMNIA, UNSPECIFIED [address] active 9 PNEUMONIA, UNSPECIFIED ORGANISM [address] active 10 MUSCLE WEAKNESS (GENERALIZED) 021 01/20/[address] completed 11 ACUTE RESPIRATORY FAILURE WITH HYPOXIA [address] active 12 ANEMIA, UNSPECIFIED [address] active 13 ATHEROSCLEROTIC HEART DISEASE OF [place] CORONARY ARTERY WITHOUT ANGINA PECTORIS [address] active 14 CHRONIC KIDNEY DISEASE, STAGE 4 (SEVERE) [address] active 15 COVID-19 021 01/20/[address] completed 16 DIFFICULTY IN WALKING, NOT ELSEWHERE CLASSIFIED 021 01/20/[address] completed 17 DYSPHAGIA, OROPHARYNGEAL PHASE [address] active 18 ESSENTIAL (PRIMARY) HYPERTENSION [address] active 19 HYPERLIPIDEMIA, UNSPECIFIED [address] active 20 NEED FOR ASSISTANCE WITH PERSONAL CARE 021 01/20/[address] completed 21 OBSTRUCTIVE SLEEP APNEA (ADULT) (PEDIATRIC) [address] active 22 OTHER LACK OF COORDINATION 021 01/20/[address] completed 23 PERSONAL HISTORY OF COVID-[address] active 24 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[place] REGION, STAGE [address] active 25 TYPE 2 DIABETES MELLITUS WITHOUT COMPLICATIONS [address] active 26 UNSPECIFIED ATRIAL FIBRILLATION [address] active 27 UNSPECIFIED PROTEIN-CALORIE MALNUTRITION [address] active Reason for Referral No Reasons for Referral Entered Social History Social History Observation Description Start Date End Date Code Code System Current Smoking Status Tobacco smoking consumption unknown 460531026 SNOMED CT Sex Assigned At Male 1950 [address][birth year]-7 [facility] Gender Identity Sexual Orientation Vital Signs Code Code System Vitals Name Values and Units Timing Information 70924-3 LOINC O2 % BldC Oximetry Value=98.0 Units= % 05/14/2021 9279-1 LOINC Respiratory Rate Value=18.0 Units=/m in 05/06/2021 8462-4 LOINC Blood Pressure-Diastolic Value=71 Un its=mmHg 05/06/2021 8480-6 LOINC Blood Pressure-Systolic Lxxcp=387 Un its=mmHg 05/06/2021 8310-5 INC Body Temperature Value=98.1 Units= F 05/06/2021 8867-4 LOINC Heart rate Value=70.0 Units=/min 94353-8 INC Pain Level Value=0.0 04/30/2021 27854-3 LOINC Weight Lldph=186.5 Units=Lbs 06/2021 2339-0 LOINC Blood Sugar Tgatc=828.0 Units=mg/dL 02/13/2021 8302-2 LOINC Height Value=76.0 Units=Inches 01/30/2021
--- NOTE | 2025-06-06 15:30 | CT_ITS ---
PROCEDURE INFORMATION: Exam: CT ANGIO CHEST PE PROTOCOL Exam date and time: 06/06/2025 4:14 PM Age: 74 years old Clinical indication: Other: Hypoxic TECHNIQUE: Imaging protocol: Computed tomographic angiography of the chest with contrast. Exam focused on the arteries. 3D rendering (Not supervised by radiologist): MIP and/or 3D reconstructed images were created by the technologist. Radiation optimization: All CT scans at this facility use at least one of these dose optimization techniques: automated exposure control; mA and/or kV adjustment per patient size (includes targeted exams where dose is matched to clinical indication); or iterative reconstruction. Contrast material: ISOVUE; Contrast volume: 75 ml; Contrast route: INTRAVENOUS (IV); COMPARISON: 1. Prior chest x-ray dated June 25, 2023. 2. Prior chest x-ray dated May 04, 2023. 3. CT ABDOMEN PELVIS W CON 06/06/2025 4:14 PM FINDINGS: Tubes, catheters and devices: Large bore central venous catheter in place via a left internal jugular approach. Distal tip of the catheter terminates within the distal superior vena cava, just above the level of the right atrium. Pulmonary arteries: No definitive central or segmental pulmonary embolism. Timing of the contrast bolus is insufficient to evaluate for more distal segmental or subsegmental pulmonary emboli. The main pulmonary artery is normal in caliber. Aorta: Normal caliber of the ascending and descending thoracic aorta. Atherosclerotic plaque at the aortic arch. Scattered atherosclerotic plaque along the descending thoracic aorta. No evidence for dissection. Thyroid: Thyroid gland appears unremarkable. Trachea: Trachea is midline in position. Mild splaying of the ladonna, partially secondary to enlargement of the left atrium. Lungs: Multifocal airspace consolidation are present within the central aspect of the left upper lobe. Dense consolidation involving a large portion of the left lower lobe. Differential diagnosis includes lobar pneumonia versus atelectatic change. There are a few air bronchograms extending into the areas of airspace consolidation. Additional linear atelectatic changes present within the left upper lobe. Scattered areas of patchy ground-glass airspace opacity and septal thickening are present within the basilar segment of the right upper lobe and within the right lower lobe. Pleural spaces: Small left pleural effusion. No pneumothorax. Heart: Cardiomegaly. No pericardial effusion. Calcifications are present at or near the aortic valve. Mitral valve annulus calcifications are present. Dense coronary artery calcifications are present. Lymph nodes: There are no enlarged supraclavicular lymph nodes. Mildly enlarged left paratracheal and aortopulmonary lymph nodes are present. Largest measures up to 12 mm in short axis. There are numerous additional smaller shotty pretracheal and paratracheal lymph nodes. Numerous small shotty precarinal lymph nodes are present. Small lymph nodes are present within the prevascular space. Prominent subcarinal lymph node measures 1.5 cm in short axis. There is fullness of the intrapulmonary lymphoid tissue at the left hilum. Evaluation for underlying hilar mass is limited. Fullness of the intrapulmonary lymphoid tissue at the right hilum. Bones/joints: There are no suspicious lytic or sclerotic bone lesions. No fracture. Osteoarthritic changes are present at the right shoulder joint. Right shoulder joint effusion is present. This results in mild distension of the right glenohumeral joint. Soft tissues: No axillary mass or lymphadenopathy. IMPRESSION: 1. Suboptimal evaluation of the pulmonary arteries. No central or proximal segmental pulmonary embolism identified on this exam. Timing of the contrast bolus is insufficient to evaluate for more distal segmental or subsegmental pulmonary emboli. If there is still high clinical concern, consider additional studies. 2. Large area of dense airspace consolidation associated air bronchograms involving a large portion of the left lower lobe and a portion of the central left upper lobe. Findings are concerning for multi lobar pneumonia. Dense atelectasis can have a similar appearance. Evaluation for a central hilar mass is limited. Follow-up CT scan of the chest is recommended after resolution to better evaluate the left hilar and infrahilar regions. 3. Enlarged left paratracheal and aortopulmonary lymph nodes are present. There are numerous additional prominent mediastinal lymph nodes as described. 4. Probable small left pleural effusion. No pneumothorax. 5. Please see report from CT scan of the abdomen and pelvis performed same day June 06, 2025 for additional information within the abdomen and pelvis. Findings were discussed with Madisyn Lopez at 06/06/2025 6:07 PM EDT.
--- NOTE | 2025-06-06 15:30 | CT_ITS ---
PROCEDURE INFORMATION: Exam: CTA Neck Without And With Contrast Exam date and time: 06/06/2025 4:06 PM Age: 74 years old Clinical indication: Stroke-like symptoms; Other: Possible stroke TECHNIQUE: Imaging protocol: Computed tomographic angiography of the neck without and with contrast. Exam focused on the cervical segments of the vasculature. 3D rendering (Not supervised by radiologist): MIP and/or 3D reconstructed images were created by the technologist. Radiation optimization: All CT scans at this facility use at least one of these dose optimization techniques: automated exposure control; mA and/or kV adjustment per patient size (includes targeted exams where dose is matched to clinical indication); or iterative reconstruction. Contrast material: ISOVUE; Contrast volume: 75 ml; Contrast route: INTRAVENOUS (IV); COMPARISON: CT HEAD/BRAIN WO CON 06/06/2025 3:38 PM FINDINGS: Tubes, catheters and devices: Left IJ approach tunneled central venous catheter partially visualized with tip extending into the lower SVC and out of the field of view. Right common carotid artery: No stenosis. No dissection or occlusion. Right internal carotid artery: Severe (70-99%) stenosis at the origin of the right internal carotid artery secondary to atherosclerotic plaque. Right external carotid artery: No occlusion or stenosis of the origin. Left common carotid artery: No stenosis. No dissection or occlusion. Left internal carotid artery: Mild (less than 50%) stenosis in the proximal left internal carotid artery secondary to atherosclerotic plaque. Moderate (50-69%) stenosis in the distal left internal carotid artery secondary to atherosclerotic plaque. Left external carotid artery: No occlusion or stenosis of the origin. Right vertebral artery: Mild (less than 50%) ostial stenosis at the origin of the right vertebral artery secondary to atherosclerotic plaque. Left vertebral artery: Moderate (50-69%) ostial stenosis at the origin of the left vertebral artery secondary to atherosclerotic plaque. Soft tissues: Unremarkable. Bones/joints: Multi-level degenerative changes in the cervical spine result in variable degrees of moderate to severe neuroforaminal narrowing, greatest from C3-C5. No evidence of acute osseous abnormality. Lungs: Heterogeneous mass-like airspace consolidation partially visualized in the left lung concerning for pneumonia, possibly aspiration given air-fluid level in the upper esophagus. IMPRESSION: 1. No evidence of dissection or occlusion in the extracranial cerebral arteries. 2. Heterogeneous mass-like airspace consolidation partially visualized in the left lung concerning for pneumonia, possibly aspiration given air-fluid level in the upper esophagus. Underlying neoplasm not excluded. 3. Severe (70-99%) stenosis at the origin of the right internal carotid artery secondary to atherosclerotic plaque. 4. Mild (less than 50%) stenosis in the proximal left internal carotid artery secondary to atherosclerotic plaque. 5. Moderate (50-69%) stenosis in the distal left internal carotid artery secondary to atherosclerotic plaque. 6. Mild (less than 50%) ostial stenosis at the origin of the right vertebral artery secondary to atherosclerotic plaque. 7. Moderate (50-69%) ostial stenosis at the origin of the left vertebral artery secondary to atherosclerotic plaque. 8. Multi-level degenerative changes in the cervical spine result in variable degrees of moderate to severe neuroforaminal narrowing, greatest from C3-C5. 9. Concurrent head CTA reported separately. REFERENCES: NASCET CRITERIA. The degree of stenosis in the cervical segment of the internal carotid artery is based on NASCET criteria. Normal is no stenosis. Mild is less than 50% stenosis. Moderate is 50-69% stenosis. Severe is 70% to 99% stenosis. Total occlusion is no detectable patent lumen.
--- NOTE | 2025-06-06 15:30 | CT_ITS ---
PROCEDURE INFORMATION: Exam: CT Abdomen And Pelvis With Contrast Exam date and time: 06/06/2025 4:14 PM Age: 74 years old Clinical indication: Other: AMS TECHNIQUE: Imaging protocol: Computed tomography of the abdomen and pelvis with contrast. Radiation optimization: All CT scans at this facility use at least one of these dose optimization techniques: automated exposure control; mA and/or kV adjustment per patient size (includes targeted exams where dose is matched to clinical indication); or iterative reconstruction. Contrast material: ISOVUE; Contrast volume: 75 ml; Contrast route: IV; COMPARISON: MR ABDOMEN WO CON 05/24/2024 8:48 AM FINDINGS: Pleural spaces: [id number] left pleural effusion. Dense airspace consolidation and atelectasis involving a large portion of the left lower lobe. Patchy ground-glass airspace opacity and septal thickening within the inferomedial right upper lobe, right middle lobe and right lower lobe. Heart: Cardiomegaly. Dense coronary artery calcifications are present. No pericardial effusion. Diaphragm: No large hiatal hernia. Liver: Mild decreased density throughout the liver in keeping with some degree of mild fatty infiltration. 4 mm calcification within the central aspect of the right lobe of the liver. Findings more compatible with prior granulomatous disease. Liver surface is relatively smooth. Gallbladder and biliary ducts: Gallbladder is distended. Small 5 mm stone or potential gallbladder wall polyp is present within the dependent portion of the gallbladder near the fundus. No gallbladder wall thickening or surrounding inflammatory change. Mild dilatation of the central intrahepatic ducts. Common bile duct is dilated measuring up to 1.3 cm in greatest diameter. 5 x 8 mm stone is present within the distal common bile duct just proximal to the ampulla. Pancreas: The pancreas is unremarkable. No dilatation of the pancreatic duct. Spleen: Spleen measures up to 16.1 cm in craniocaudal length. No suspicious mass or lesion within the spleen. Adrenal glands: 1.5 cm nodule along the lateral limb of the left adrenal gland. Right adrenal gland appears unremarkable. Kidneys and ureters: Kidneys are atrophic. Bilateral cortical thinning. Bilateral renal cysts are present. There are additional smaller subcentimeter cortical hypodensities which may correspond to small cysts but are too small to characterize further. Largest cyst along the lower pole of the left kidney measures up to 2.9 cm. 11 mm dense nonobstructing stone within the lower pole of the left kidney. No hydronephrosis. Mild perinephric stranding is present on the right and left. Dense calcification near the level of the right ureteropelvic junction more compatible with dense vascular calcification. Ureters are normal in caliber. Confluent or 2 adjacent distal left ureteral stones are present. Overall diameter measures up to 2 cm in craniocaudal length. Stomach and bowel: Stomach appears unremarkable. There are few mildly distended fluid-filled small bowel loops within the left upper quadrant. No evidence of a high-grade small bowel obstruction. Remainder of the small bowel loops are normal in caliber. Mild circumferential wall thickening involving the distal sigmoid colon and rectum. There is minimal stranding within the perirectal fat. Findings may correspond to changes of mild colitis. Fat density nodule is present within the proximal ascending colon. This measures up to 2.1 cm. Findings more compatible with lipoma. Appendix: Normal appendix. Intraperitoneal space: Unremarkable. No free air. No significant fluid collection. Vasculature: No infrarenal abdominal aortic aneurysm. Heavy atherosclerotic plaque along the length of the infrarenal abdominal aorta and at the origins of the great vessels. Heavy atherosclerotic plaque within the superior mesenteric artery. Superior mesenteric artery remains patent. Heavy atherosclerotic plaque and high-grade stenosis of the left renal ostium. Heavy atherosclerotic plaque along the iliac arteries. Iliac arteries remain patent. Lymph nodes: There are no enlarged or suspicious intra-abdominal, pelvic or retroperitoneal lymph nodes. No inguinal lymphadenopathy. Urinary bladder: 12 x 10 x 12 mm enhancing nodule or mass is present at the base of the bladder. Bladder is decompressed. Mild circumferential bladder wall thickening. No bladder calculi. Reproductive: Prostate appears heterogeneous. Central coarse calcifications are present. Central area of decreased density is present suggestive of changes of prior TURP procedure. Bones/joints: The bones are diffusely demineralized. There are no suspicious lytic or sclerotic bone lesions. No acute fracture. Multilevel spinal canal narrowing within the lower lumbar spine. Soft tissues: No large ventral hernia. No area of focal subcutaneous soft tissue swelling or focal fluid collection. IMPRESSION: 1. Gallbladder is distended. 5 mm stone or polyp is present along the dependent portion of the fundus of the gallbladder. No associated gallbladder wall thickening or surrounding pericholecystic free fluid. Mild intrahepatic ductal dilatation is present. The common bile duct is mildly dilated. 5 x 8 mm stone is present within the distal common bile duct compatible with choledocholithiasis. This was seen on prior MRI. Please correlate with any abnormal liver function tests or concern for acute cholecystitis. 2. Nodular fullness along the lateral limb of the left adrenal gland measuring up to 1.4 cm. 3. Atrophic right and left kidney. Bilateral renal cysts are present. There are additional small less than 1 cm cortical hypodensities which are too small to characterize further. 4. [place] or 2 adjacent distal left ureteral stones are present. Overall diameter measures up to 2 cm in craniocaudal length. No associated hydronephrosis. No periureteral stranding. Additional large nonobstructing stone is present within the lower pole of the left kidney. 5. Mildly enhancing small polyp or mass within the base of the bladder measuring up to 12 mm. 6. Very mild circumferential wall thickening and adjacent stranding involving the distal sigmoid colon and rectum. Findings may correspond to changes of mild colitis. 7. Small left pleural effusion. Dense airspace consolidation and atelectasis involving a large portion of the left lower lobe. Please correlate with any history of leukocytosis. Left lower lobe pneumonia is considered. Additional scattered areas of ground-glass airspace opacity and atelectatic change are present throughout the remainder of the right and left lower lung. COMMENTS: Consistent with the [employer]'s Incidental Findings Committee white paper (J Am Radha Radiol 2018): Any incidental renal lesion less than 1 cm or classified as too small to characterize, or any incidental cystic renal lesion characterized as simple-appearing, is likely benign. No follow-up imaging is recommended for these lesions per consensus recommendations based on imaging criteria.
--- NOTE | 2025-06-06 15:30 | CT_ITS ---
PROCEDURE INFORMATION: Exam: CT Head Without Contrast Exam date and time: 06/06/2025 3:38 PM Age: 74 years old Clinical indication: Stroke-like symptoms; Other: Possible stroke TECHNIQUE: Imaging protocol: Computed tomography of the head without contrast. Radiation optimization: All CT scans at this facility use at least one of these dose optimization techniques: automated exposure control; mA and/or kV adjustment per patient size (includes targeted exams where dose is matched to clinical indication); or iterative reconstruction. Other technique: STROKE PROTOCOL was implemented. COMPARISON: No relevant prior studies available. FINDINGS: Limitations: Off-orthogonal coronal and sagittal reconstructed images limits sensitivity of exam. Brain: Global cerebral volume loss. No acute intracranial hemorrhage. No extra-axial fluid collection. No mass effect or midline shift. Focal white matter hypodensity surrounding a punctate calcification in the left occipital lobe. Singh-white matter differentiation remains primarily intact with the exception of a 0.5-1.0 cm defect in the cortical ribbon posteriorly (sagittal series 1002, image 35). No evidence of acute/subacute vascular territory infarct. 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 Periventricular and subcortical white matter hypodensities compatible with chronic hypertensive microvascular disease. Cerebral ventricles: No hydrocephalus. Paranasal sinuses: Mucosal thickening in the paranasal sinuses with partial opacification of the left maxillary sinus compatible with sinusitis. Mastoid air cells: Moderate left mastoid effusion and trace right mastoid effusion, nonspecific. Bones: No evidence of acute calvarial or skull base fracture. Soft tissues: Unremarkable. IMPRESSION: 1. No evidence of acute intracranial hemorrhage or acute/subacute vascular territory infarct. 2. Focal white matter hypodensity surrounding a punctate calcification in the left occipital lobe. Singh-white matter differentiation remains primarily intact with the exception of a 0.5-1.0 cm defect in the cortical ribbon posteriorly. Findings are nonspecific and could represent a chronic vs late subacute focal infarct or reactive edema surrounding a partially calcified neoplasm or infectious process. 3. Moderate left mastoid effusion and trace right mastoid effusion, nonspecific. 4. Mucosal thickening in the paranasal sinuses with partial opacification of the left maxillary sinus compatible with sinusitis. 5. 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 6. White matter changes compatible with chronic hypertensive microvascular disease. ASSESSMENT: ASPECTS ([place] Stroke Program Early CT Score) is 10.
--- NOTE | 2025-06-06 15:30 | CT_ITS ---
PROCEDURE INFORMATION: Exam: CTA Head Without And With Contrast, Arteriography Exam date and time: 06/06/2025 4:06 PM Age: 74 years old Clinical indication: Stroke-like symptoms; Other: Possible stroke TECHNIQUE: Imaging protocol: Computed tomographic angiography of the head without and with contrast. Exam focused on the arteries. 3D rendering (Not supervised by radiologist): MIP and/or 3D reconstructed images were created by the technologist. Radiation optimization: All CT scans at this facility use at least one of these dose optimization techniques: automated exposure control; mA and/or kV adjustment per patient size (includes targeted exams where dose is matched to clinical indication); or iterative reconstruction. Contrast material: ISOVUE; Contrast volume: 75 ml; Contrast route: INTRAVENOUS (IV); Other technique: STROKE PROTOCOL was implemented. COMPARISON: CT HEAD/BRAIN WO CON 06/06/2025 3:38 PM FINDINGS: ANTERIOR CIRCULATION: Right internal carotid artery: Mild (less than 50%) stenosis in the right internal carotid artery secondary to atherosclerotic plaque. No occlusion, dissection or aneurysm. Right middle cerebral artery: No occlusion or significant stenosis. No aneurysm. Right anterior cerebral artery: No occlusion or significant stenosis. No aneurysm. Left internal carotid artery: Mild (less than 50%) stenosis in the left internal carotid artery secondary to atherosclerotic plaque. No occlusion, dissection or aneurysm. Left middle cerebral artery: No occlusion or significant stenosis. No aneurysm. Left anterior cerebral artery: No occlusion or significant stenosis. No aneurysm. POSTERIOR CIRCULATION: Right vertebral artery: No occlusion or significant stenosis. No aneurysm. Left vertebral artery: No occlusion or significant stenosis. No aneurysm. Basilar artery: No occlusion or significant stenosis. No aneurysm. Right posterior cerebral artery: No occlusion or significant stenosis. No aneurysm. Left posterior cerebral artery: No occlusion or significant stenosis. No aneurysm. HEAD: Brain: No abnormally enhancing brain lesion, mass effect, or midline shift. Of note, there is no abnormal vascularity demonstrated within the left occipital lobe lesion seen on prior non-contrast head CT. Cerebral ventricles: No hydrocephalus. Bones: Unremarkable. No acute fracture. Paranasal sinuses: Visualized sinuses are normal. No fluid levels. Mastoid air cells: Moderate left mastoid effusion and trace right mastoid effusion, nonspecific. Soft tissues: Unremarkable. IMPRESSION: 1. No evidence of large vessel occlusion or high-grade stenosis in the intracranial cerebral arteries. 2. Mild (less than 50%) stenosis in the bilateral internal carotid arteries secondary to atherosclerotic plaque. 3. Moderate left mastoid effusion and trace right mastoid effusion, nonspecific. ASSESSMENT: ASPECTS ([place] Stroke Program Early CT Score) is 10. PROCEDURE INFORMATION: Exam: CT Maxillofacial With Contrast Exam date and time: 06/06/2025 4:06 PM Age: 74 years old Clinical indication: Stroke-like symptoms; Other: Possible stroke TECHNIQUE: Imaging protocol: Computed tomography of the face with contrast. Radiation optimization: All CT scans at this facility use at least one of these dose optimization techniques: automated exposure control; mA and/or kV adjustment per patient size (includes targeted exams where dose is matched to clinical indication); or iterative reconstruction. COMPARISON: CT HEAD/BRAIN WO CON 06/06/2025 3:38 PM FINDINGS: Paranasal sinuses: Mucosal thickening in the paranasal sinuses with partial opacification of the left maxillary sinus compatible with sinusitis. Orbital cavities: Bilateral lens replacement incidentally noted. Globes and orbital structures are otherwise unremarkable. Teeth: No evidence of odontogenic abscess. Bones: No evidence of acute fracture. Pterygoid plates and lamina papyracea are intact. 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 Soft tissues: Unremarkable. IMPRESSION: 1. Mucosal thickening in the paranasal sinuses with partial opacification of the left maxillary sinus compatible with sinusitis. 2. 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
[2025-06-06 15:34] LABS: Hematocrit 30.1 % (42.0-52.0); Hemoglobin 9.8 g/dL (14.1-18.0); Immature Granulocytes % 2.5 %; Mean Corpuscular HGB Conc 32.6 g/dL (31.8-35.4); Mean Corpuscular Hemoglobin 31.7 pg (27.0-31.2); Mean Corpuscular Volume 97.4 fl (80-94); Nucleated Red Blood Cells % 0 %; Platelet Count 177 K/mm3 (142-424); Red Blood Count 3.09 M/mm3 (4.60-6.20); Red Cell Distribution Width-SD 56.3 fL; White Blood Count 21.4 K/mm3 (4.8-10.8)
--- NOTE | 2025-06-06 15:34 | PC.NURSE ---
PT TO CT
--- NOTE | 2025-06-06 15:43 | PC.NURSE ---
CT STAFF CALLED AND ARE UNABLE TO ADMINISTER CONTRAST. IV INFILTRATED. DR. GREY NOTIFIED. PROCEED WITH SCAN WITHOUT CONTRAST AND MD WILL ATTEMPT TO PLACE NEW IV VIA US
[2025-06-06 15:45] LABS: Activated Partial Thrombo Time 33.7 seconds (22.8-30.6); INR 1.35 (0.9-1.1); Prothrombin Time 14.7 seconds (10.1-12.5)
[2025-06-06 15:53] LABS: VBG HCO3 26.7 mmol/L (23-30); VBG PCO2 42.5 mmol/L (35-51); VBG PH 7.42 mmol/L (7.31-7.41); VBG PO2 72.8 mmol/L (28-40)
[2025-06-06 15:55] LABS: Lactate Venous 2.4 mmol/L (0.4-2.0)
[2025-06-06 16:08] LABS: Anisocytosis 1+; Burr Cells 1+; Macrocytosis 1+; Poikilocytosis 1+; Polychromasia 1+; Target Cells 1+; Total Cells Counted 100
[2025-06-06] MEDS: 0.9 % SODIUM CHLORIDE 50 ML VIAL 100 ML IV (16:09)
[2025-06-06] MEDS: SODIUM CHLORIDE 0.9% 10ML SYR (RAD ONLY) 10 ML IV (16:09)
[2025-06-06 16:10] LABS: Ovalocytes 1+
[2025-06-06] MEDS: IOPAMIDOL-370 (76%);100ML BOTTLE 160 ML IV (16:10)
--- NOTE | 2025-06-06 16:12 | PC.NURSE ---
Discussed with Dr. Lopez if she wanted to In/Out cath patient for urine sample, as patient just had dialysis today and not sure if he makes urine. states to not insert catheter at this time.
[2025-06-06 16:22] LABS: Alanine Aminotransferase 482 U/L (12-78); Albumin Level 3.5 g/dl (3.5-5.0); Albumin/Globulin Ratio 1.0 (1.1-1.8); Alkaline Phosphatase 118 U/L (38-126); Anion Gap 15.0 mEq/L (5-15); Aspartate Amino Transferase 485 U/L (17-59); Bilirubin,Total 1.5 mg/dl (0.2-1.3); Blood Urea Nitrogen 45 mg/dl (9-20); Calcium 8.7 mg/dl (8.4-10.2); Carbon Dioxide 30 mmol/L (22.0-30.0); Chloride 91 mmol/L (98-107); Cholesterol 77 mg/dl (140-200); Creatinine Clearance Estimated 15 mL/min (50-200); Estimated Glomerular Filt Rate 11 ml/min (>60); GFR (African American) 13 ML/MIN (>60); Globulin 3.4 g/dL (1.3-3.2); Glucose 84 mg/dl (74-100); HDL Cholesterol 28 mg/dl (40-60); Potassium 4.0 mmoL/L (3.5-5.1); Sodium 132 mmol/L (136-145); Total Protein,Serum 6.9 g/dl (6.3-8.2); Triglycerides 91 mg/dl (30-150)
--- NOTE | 2025-06-06 16:24 | ECG_ITS ---
APPROVED REPORT Exam: Resting ECG HR:75 bpm ECG Measurements Heart Rate 75 AXES QRSd 110 QRS -6 QT 407 T 43 QTc 436 Conclusion SUPRAVENTRICULAR RHYTHM SEPTAL MYOCARDIAL INFARCTION , OF INDETERMINATE AGE [40+ ms Q WAVE IN V1/V2] ABNORMAL ECG Electronically signed by : CARLOS CERVANTES, 06/07/2025 09:04:01
--- NOTE | 2025-06-06 16:32 | HMH.EDGENADL ---
Discharge Plan Disposition Chief Complaint: Weakness Prescriptions Prescriptions: No Action cetirizine [24Hour Allergy] 10 mg tablet 10 mg PO DAILYP PRN (Reason: allergies) montelukast 10 mg tablet 10 mg PO cyanocobalamin (vitamin B-12) 1,000 mcg tablet 1,000 mcg PO DAILY fluticasone propionate 50 mcg/actuation spray,suspension intranasal amiodarone 200 mg tablet 200 mg PO BID ondansetron HCl 4 mg tablet 4 mg PO Q8H PRN loperamide [Anti-Diarrheal (loperamide)] 2 mg tablet 2 mg PO Q6H PRN trazodone 100 mg tablet 100 mg PO HS benzonatate 100 mg capsule 100 mg PO Q8H Nephro-Zack 0.8 mg tablet 1 tab PO DAILY Mucus DM 30-600 mg tablet extended release 12 hr PO acetaminophen 500 mg capsule 1,000 mg PO Q6H PRN Cough Drops 5 mg lozenge 5 mg mucous membrane Q4H Eliquis 2.5 mg tablet 2.5 mg PO BID midodrine 10 mg tablet 20 mg PO ONCE Rx Instructions: Give 2 tablets by mouth one time a day every Wed, Wed, Wed for Low B/P at dialysis. January send on Wednesday, Wednesday, and Wednesday to dialysis for them to administer if low B/P. zinc sulfate 220 MG capsule 220 mg PO DAILY Patient Comments: TAKE 1 CAPSULE BY MOUTH ONCE DAILY atorvastatin 80 mg tablet 80 mg PO DAILY pantoprazole 40 mg tablet,delayed release (DR/EC) 40 mg PO DAILY Referrals Follow up/Referrals: Jeffrey Sun MD [Primary Care Provider, Medical] - See instructions Stand Alone Forms Stand Alone Forms: Transfer Record - ED Print Language Print Language: Kuwaiti Discharge ED Provider: Madisyn Lopez General Adult HPI General Chief complaint: Weakness Stated complaint: STROKE ALERT Time Seen by Provider: 06/06/25 15:11 Mode of Arrival: EMS Source of Information: EMS Description of Symptoms (Recalled from ER Triage Doc. by RN): Patient sent from [facility] for sudden onset of weakness and not following any commands. Patient reportedly had dialysis earlier today, returned from dialysis, ambulated from bus to [facility], and then was unable to walk. On arrival to ER, patient is non-verbal, not following any commands, not voluntarily moving any extremities. Possibly started maybe 30 minutes ago. History of Present Illness HPI narrative: Patient is a 58 male with history,, end-stage renal disease on Wednesday dialysis, on who presented to the emergency department from nursing facility for weakness, altered mental status. Patient arrived via EMS with concern for stroke alert. No per EMS, patient had dialysis was able to walk from the bus into the nursing facility but then became acutely altered. EMS thought that the patient was slumping to the right side which is what alerted the stroke alert. Patient was not following commands and last known normal was 3pm today. Patient had a normal blood sugar. On arrival, patient was unable to provide any history but stated that nothing was hurting him. Further history was obtained from family on their arrival: Family bedside states that patient has had global weakness in the last 2 years since starting dialysis. They state that patient is unable to ambulate at baseline and is unable to stand. They state that patient is largely wheelchair-bound. They state that patient has had a productive cough for the last 3 days. Patient has not had any fevers. Patient has no other complaints. They state that patient is on blood thinners for A-fib and has COPD and is on dialysis. Dialysis is not new and he has been doing it for 2 years. Patient does not have a history of diabetes. When patient arrived back into the room, they state that his global weakness is unchanged from his baseline however he does look acutely ill compared to his baseline from a couple days ago. They state that patient is not on any oxygen at baseline. Related Data Home Medications ?Medication ?Instructions ?Recorded ?Confirmed cetirizine 10 mg tablet (24Hour 10 mg PO DAILYP PRN allergies 05/23/18 06/04/25 Allergy) zinc sulfate 50 mg zinc (220 mg) 220 mg PO DAILY Supplement 10/01/20 06/04/25 capsule atorvastatin 80 mg tablet 80 mg PO DAILY Cholesterol 06/13/22 06/04/25 pantoprazole 40 mg tablet,delayed 40 mg PO DAILY GERD 06/13/22 06/04/25 release acetaminophen 500 mg capsule 1,000 mg PO Q6H PRN 06/04/25 06/04/25 amiodarone 200 mg tablet 200 mg PO BID 06/04/25 06/04/25 apixaban 2.5 mg tablet (Eliquis) 2.5 mg PO BID 06/04/25 06/04/25 benzonatate 100 mg capsule 100 mg PO Q8H 06/04/25 06/04/25 cyanocobalamin (vitamin B-12) 1,000 mcg PO DAILY 06/04/25 06/04/25 1,000 mcg tablet dextromethorphan-guaifenesin 30 tab PO 06/04/25 06/04/25 mg-600 mg tablet extended [id number] hr (Mucus DM) fluticasone propionate 50 intranasal 06/04/25 06/04/25 mcg/actuation nasal spray,suspension loperamide 2 mg tablet 2 mg PO Q6H PRN 06/04/25 06/04/25 (Anti-Diarrheal (loperamide)) menthol 5 mg lozenges (Cough Drops) 5 mg mucous membrane Q4H 06/04/25 06/04/25 midodrine 10 mg tablet 20 mg PO ONCE 06/04/25 06/04/25 montelukast 10 mg tablet 10 mg PO 06/04/25 06/04/25 ondansetron HCl 4 mg tablet 4 mg PO Q8H PRN 06/04/25 06/04/25 trazodone 100 mg tablet 100 mg PO HS 06/04/25 06/04/25 vitamin B complex-vitamin C-folic 1 tab PO DAILY 06/04/25 06/04/25 acid 0.8 mg tablet (Nephro-Zack) Allergies Allergy/AdvReac Type Severity Reaction Status Date / Time No Known Allergies Allergy Verified 06/04/25 14:23 [facility] Disclaimer: The information contained in this section may have been updated after the patient was seen, as this information can be updated by other users. Medical History Urinary tract infection Dialysis patient Cataract Sleep apnea History of COVID-19 Diabetes mellitus, type 2 Pneumothorax Renal failure (ARF), acute on chronic Pneumonia due to COVID-19 virus Respiratory failure with hypoxia Surgical History No significant past surgical history Family History Other No significant family history Social History Smoking Status: Unknown if ever smoked second hand exposure: No alcohol intake: never counseling provided: none substance use type: denies use current occupational status: retired Travel in the last 8 weeks?: None household members: family housing: house current occupational exposures/hazards: No caffeine: Yes Have you lived/traveled outside [place] in past 30 days?: No Contact w/someone who lives/traveled outside US past 30 days?: No Exposure to someone with infectious disease in past 14 days?: No Do you have a fever (greater than 100.4 F or 38 C)?: No Have you tested positive for COVID-19?: No Exposed to someone with COVID-19 in past 14 days?: No Do you have a sore throat?: No Do you have a cough?: No Do you have any weakness?: No Do you have any diarrhea?: No Are you experiencing any unusual bleeding?: No Do you have any muscle aches/pain?: No Do you have any abdominal pain?: No Are you experiencing loss of taste or smell?: No Other Medical History Have you received the Flu Vaccine for this season: No Have you received the Pneumonia Vaccine: No ROS Obtained: Yes All systems reviewed & no additional complaints except as documented and Yes Systems reviewed as appropriate & no additional complaints except as documented Physical Exam General General appearance: alert Comment: Alert, able to state name Head Head exam: atraumatic, normocephalic and normal inspection Eye Eye exam: Present normal appearance, PERRL and EOMI; Absent scleral icterus ENT ENT exam: Present normal exam and normal external ear exam Neck Neck exam: Present normal inspection and full ROM Chest Chest inspection: Present normal inspection and symmetric chest wall rise Respiratory Respiratory exam: Present normal lung sounds bilaterally, wheezes and other (Rhonchi); Absent respiratory distress Cardiovascular Cardiovascular exam: Present regular rate, normal rhythm and normal heart sounds Abdominal Exam Abdominal exam: Present soft and distention; Absent tenderness, guarding or rebound Extremities Exam Extremities exam: Present normal inspection and full ROM Back Exam Back exam: Present normal inspection and full ROM Neurological Exam Neurological exam: Present alert and other (Full drift in the bilateral upper extremities and bilateral lower extremities but sensation intact, able to raise eyebrows, stick out tongue, able to follow commands in face but unable to follow commands in upper and lower extremities, NIH 9 ) Psychiatric Psychiatric exam: Present normal affect and normal mood Skin Skin exam: Present warm and dry Medical Decision Making Medical Records Medical records reviewed: Yes I reviewed the patient's medical records. Screening: Per USPSTF and CDC recommendations, given the prevalence of disease in our region, it is our hospital?s policy to screen for HIV and viral Hepatitis for all patients aged 18 and over and those with ongoing risk factors. Zander Inquiry Pt receiving controlled substance: No Vital Signs: 06/06/25 15:16 06/06/25 15:30 06/06/25 15:34 Temperature 98.4 F Temperature Source Tympanic Pulse Rate 89 Pulse Rate [Right Brachial] 89 Respiratory Rate 26 H 26 H 22 Blood Pressure Blood Pressure [Right Arm] 103/77 L Blood Pressure Mean Blood Pressure Mean [Right Arm] 85 Blood Pressure Source [Right Arm] Automatic Cuff Blood Pressure Position [Right Arm] Sitting 02 Sat by Pulse Oximetry 96 97 Oxygen Delivery Method Non-Rebreather Oxygen Flow Rate (LPM) 15 06/06/25 16:20 06/06/25 16:21 06/06/25 16:21 Temperature Temperature Source Pulse Rate 61 77 Pulse Rate [Right Brachial] Respiratory Rate 26 H 26 H Blood Pressure 126/44 L Blood Pressure [Right Arm] Blood Pressure Mean 71 Blood Pressure Mean [Right Arm] Blood Pressure Source [Right Arm] Blood Pressure Position [Right Arm] 02 Sat by Pulse Oximetry 98 98 Oxygen Delivery Method Oxygen Flow Rate (LPM) 06/06/25 16:30 06/06/25 16:30 Temperature Temperature Source Pulse Rate 74 Pulse Rate [Right Brachial] Respiratory Rate 21 Blood Pressure 122/65 Blood Pressure [Right Arm] Blood Pressure Mean 73 Blood Pressure Mean [Right Arm] Blood Pressure Source [Right Arm] Blood Pressure Position [Right Arm] 02 Sat by Pulse Oximetry 96 Oxygen Delivery Method Nasal Cannula Oxygen Flow Rate (LPM) 4 Lab Data Lab results reviewed: Yes I reviewed the patient's lab results. Lab Results 06/06/25 15:25: WBC 21.4 H*, RBC 3.09 L, Hgb 9.8 L, Hct 30.1 L, MCV 97.4 H, MCH 31.7 H, MCHC 32.6, RDW 15.7, Plt Count 177, MPV 11.6 H, Neut % (Auto) 88.2 H, Lymph % (Auto) 2.0 L, Alpine % (Auto) 7.2, Eos % (Auto) 0.0 L, Baso % (Auto) 0.1, Neut # (Auto) 18.9 H, Lymph # (Auto) 0.4 L, Alpine # (Auto) 1.5 H, Eos # (Auto) 0.0, Baso # (Auto) 0.0, Total Counted 100, Neutrophils % (Manual) 95 H, Lymphocytes % (Manual) 2 L, Monocytes % (Manual) 3, Platelet Estimate Normal, RBC Morphology Not Reportable, Polychromasia 1+, Poikilocytosis 1+, Anisocytosis 1+, Macrocytosis 1+, Target Cells 1+, Ovalocytes 1+, Alfred Cells 1+, PT 14.7 H, INR 1.35 H, APTT 33.7 H, Sodium 132 L, Potassium 4.0, Chloride 91 L, Carbon Dioxide 30, Anion Gap 15.0, BUN 45 H, Creatinine 5.10 H, Estimated Creat Clear 15, Estimated GFR 11 L*, Est GFR ( Amer) 13 L*, Glucose 84, Calcium 8.7, Magnesium 1.4 L, Total Bilirubin 1.5 H, AST 485 H*, ALT 482 H*, Alkaline Phosphatase 118, Troponin I 0.05 H, Total Protein 6.9, Albumin 3.5, Globulin 3.4 H, Albumin/Globulin Ratio 1.0 L, Triglycerides 91, Cholesterol 77 L, LDL Cholesterol Direct < 30.00 L, VLDL Cholesterol 18, HDL Cholesterol 28 L, Cholesterol/HDL Ratio 2.8, Lipase 29, Acetaminophen < 10 L, Plasma/Serum Alcohol < 10 06/06/25 15:45: VBG pH 7.42 H, VBG pCO2 42.5, VBG pO2 72.8 H, VBG HCO3 26.7, VBG Total CO2 28.0 H, VBG O2 Saturation 91.8 H, VBG Base Excess 2.2, VBG Lactic Acid 2.4 H 06/06/25 15:25 06/06/25 15:25 Orders (Tests/Meds): ED MEDICATIONS Generic Name Dose Route Start Last Admin Trade Name Freq PRN Reason Stop Dose Admin Sodium Chloride 10 ml 06/06/25 15:29 Sodium Chloride 0.9% 10ml Flush Syringe IV 07/06/25 15:28 NEEDED PRN Maintain IV Site Sodium Chloride 10 ml 06/06/25 16:06 06/06/25 16:09 Sodium Chloride 0.9% 10ml Syr (Rad Only) IV 07/06/25 16:05 10 ml NEEDED PRN Administration Maintain IV Site Discontinued Medications Generic Name Dose Route Start Last Admin Trade Name Viviane PRN Reason Stop Dose Admin Cefepime HCl 2 gm/ Sodium 100 mls @ 200 mls/hr 06/06/25 16:36 06/06/25 17:00 Chloride IV 06/06/25 17:05 200 mls/hr ONCE ONE Administration Iopamidol 160 ml 06/06/25 16:06 06/06/25 16:10 Iopamidol-370 (76%);100ml Bottle IV 06/06/25 16:07 160 ml ONCE ONE Administration Sodium Chloride 100 ml 06/06/25 16:06 06/06/25 16:09 0.9 % Sodium Chloride 50 Ml Vial IV 06/06/25 16:07 100 ml ONCE ONE Administration ORDERS Category Date Time Status CT abdomen pelvis w con Stat Cat Scan 06/06/25 15:[address] angio chest PE protocol Stat Cat Scan 06/06/25 15:[address] angio head Stat Cat Scan 06/06/25 15:[address] angio neck Stat Cat Scan 06/06/25 15:[address] head/brain wo con Stat Cat Scan 06/06/25 15:30 Completed Acetaminophen Stat Lab 06/06/25 15:25 Completed Activated Partial Thrombo Time Stat Lab 06/06/25 15:25 Completed Complete Blood Count Auto Diff Stat Lab 06/06/25 15:25 Completed Comprehensive Metabolic Panel Stat Lab 06/06/25 15:25 Completed Drug Screen,Urine Stat Lab 06/06/25 15:32 Ordered Ethyl Alcohol Stat Lab 06/06/25 15:25 Completed Full Resp Panel w/COVID ([facility]) Routine Lab 06/06/25 15:20 Received Lipase Stat Lab 06/06/25 15:25 Completed Lipid Panel Stat Lab 06/06/25 15:25 Completed Magnesium Stat Lab 06/06/25 15:25 Completed Prothrombin Time INR Stat Lab 06/06/25 15:25 Completed Troponin I Q3H Lab 06/06/25 18:30 Ordered Troponin I Q3H Lab 06/06/25 21:30 Ordered Troponin I Stat Lab 06/06/25 15:25 Completed Urinalysis and Microscopic Stat Lab 06/06/25 15:30 Ordered Blood Culture Stat Micro 06/06/25 16:47 Received Urine Culture Stat Micro 06/06/25 15:32 Ordered VBG [Venous Blood Gas] Stat RT 06/06/25 15:45 Completed ECG Request Stat Y 06/06/25 15:30 Ordered Medical Decision Narrative: Patient is a 74-year-old gentleman with a past medical history of COPD, chronic A-fib on Eliquis, end-stage renal disease on dialysis who presented to the emergency department with weakness and presented as a stroke alert from scene. On arrival, patient was hemodynamically stable, vital signs. Blood sugar was normal. Patient did arrive on a non-rebreather. Differential includes but not limited to: Intracranial ischemia, intracranial hemorrhage, hypoglycemia, pneumonia, acute hypoxic respiratory failure, COPD exacerbation, intra-abdominal abscess, urinary tract infection, pulmonary embolism, amongst others. Patient's labs were reviewed and interpreted by myself: CBC showed a leukocytosis, hemoglobin was stable. CMP was unremarkable except for mildly elevated creatinine at patient's baseline of 5 with known end-stage renal disease. Magnesium slightly low at 1.4. Patient did have elevated AST and ALT in the 400s. Initial troponin was elevated at 0.05. EKG was reviewed and interpreted by myself and showed normal sinus rhythm without acute ST or T wave changes concerning for ischemia. Given that patient was on a non-rebreather, patient was altered and unable to fully perform exam, CT head CTAs were ordered as well as CT chest and CT abdomen. After discussion with radiology, they stated that patient likely had some possible subacute strokes in the left occipital lobe. Patient did not have a large vessel occlusion. Patient is on Eliquis therefore was not a candidate for TNK. CT chest was reviewed and interpreted by myself and showed ground glass opacities and given patient's elevated white blood count with productive cough, patient was started on IV cefepime and blood cultures were obtained. I discussed the case with [facility] and they accept the patient for further stroke workup as well as patient will need dialysis given that he had IV contrast. Patient was maintaining 94% oxygen saturation on 4 L nasal cannula. Therefore, patient was transferred to [facility] for pneumonia, need for dialysis and further stroke workup. Critical Care Critical Care Time Critical Care Time: No
[2025-06-06 16:37] LABS: Troponin I 0.05 ng/ml (0.00-0.034)
--- NOTE | 2025-06-06 16:38 | PC.NURSE ---
calling [facility] at this time.
[2025-06-06 16:41] LABS: Creatinine,Serum 5.10 mg/dl (0.66-1.25)
--- NOTE | 2025-06-06 16:41 | PC.NURSE ---
o/p with [facility] at this time.
[2025-06-06 16:43] LABS: Lipase 29 U/L (23-300); Magnesium 1.4 mg/dl (1.6-2.3)
[2025-06-06 16:49] LABS: Acetaminophen < 10 ug/ml (10-30)
[2025-06-06] MEDS: CEFEPIME HCL 2 GM in 0.9 % SODIUM CHLORIDE 100 ML IV (17:00)
[2025-06-06 17:11] LABS: Adenovirus,PCR Not Detected (NotDetected); Chlamydophila Pneumoniae, PCR Not Detected (NotDetected); Coronavirus 19, PCR Not Detected (NotDetected); Coronovirus HKU1,PCR Not Detected (NotDetected); Influenza A, PCR Not Detected (NotDetected); Influenza AH1, 2009 Not Detected (NotDetected); Influenza AH1, PCR Not Detected (NotDetected); Influenza AH3,PCR Not Detected (NotDetected); Influenza B, PCR Not Detected (NotDetected); Mycoplasma Pneumoniae, PCR Not Detected (NotDetected); Parainfluenza 1, PCR Not Detected (NotDetected); Parainfluenza 2, PCR Not Detected (NotDetected); Parainfluenza 3, PCR Not Detected (NotDetected); Parainfluenza 4, PCR Not Detected (NotDetected)
--- NOTE | 2025-06-06 17:30 | PC.NURSE ---
called [facility] for update on bed. the bed is dirty per tomás with the transfer center. they will call us when the bed is ready.
--- NOTE | 2025-06-06 17:37 | PC.NURSE ---
[facility] called with number to give report at this time.
[2025-06-06] MEDS: METRONIDAZ/SOD CHL 500 MG/100 ML PIGGYBACK 100 MG IV (17:50)
--- NOTE | 2025-06-06 18:00 | PC.NURSE ---
Called [facility] back per Dr Lopez to speak with the stroke navigator to give an update on this pt.
[2025-06-06 19:55] LABS: Reflex Lactic Add Lactic Reflex
[2025-06-07 06:52] LABS: Acinetobacter calcoaceticus-ba Not Detected; Bacteroides fragilis Not Detected; Candida auris Not Detected; Candida glabrata Not Detected; Enterobacterales Not Detected; Enterococcus faecalis Not Detected; Enterococcus faecium Not Detected; Klebsiella aerogenes Not Detected; Klebsiella pneumoniae grp Not Detected; Proteus spp. Not Detected; Salmonella spp. Not Detected; Serratia marcescens Not Detected; Staphylococcus epidermidis Not Detected; Staphylococcus lugdunensis Not Detected; Staphylococcus spp. Not Detected; Stenotrophomonas maltophilia Not Detected; Streptococcus agalactiae(GrpB) Not Detected; Streptococcus pyogenes Group A Not Detected; Streptococcus spp. Detected
--- NOTE | 2025-06-07 09:20 | PC.NURSE ---
Blood culture results faxed to [facility] at [phone]
[2025-06-07 09:21] LABS: Acinetobacter calcoaceticus-ba Not Detected; Bacteroides fragilis Not Detected; Candida auris Not Detected; Candida glabrata Not Detected; Enterobacterales Not Detected; Enterococcus faecalis Not Detected; Enterococcus faecium Not Detected; Klebsiella aerogenes Not Detected; Klebsiella pneumoniae grp Not Detected; Proteus spp. Not Detected; Salmonella spp. Not Detected; Serratia marcescens Not Detected; Staphylococcus epidermidis Not Detected; Staphylococcus lugdunensis Not Detected; Staphylococcus spp. Not Detected; Stenotrophomonas maltophilia Not Detected; Streptococcus agalactiae(GrpB) Not Detected; Streptococcus pyogenes Group A Not Detected; Streptococcus spp. Detected
--- NOTE | 2025-06-08 11:08 | PC.NURSE ---
culture results faxed to [facility] as the pt was transferred to floor 3F
--- NOTE | 2025-06-09 08:33 | PC.NURSE ---
Final blood culture results refaxed to [facility] as he was transferred there.
== END 2025-06-06 18:01 | disposition short-term general hospital (02) ==
PROVIDERS: Emergency Provider Student in an Organized Health Care Education/Training Program; PCP Family Medicine
DX: I63.9 Cerebral infarction, unspecified (principal); J18.9 Pneumonia, unspecified organism; R29.709 NIHSS score 9; D72.829 Elevated white blood cell count, unspecified; R41.82 Altered mental status, unspecified; N18.6 End stage renal disease; J44.9 Chronic obstructive pulmonary disease, unspecified; I12.0 Hypertensive chronic kidney disease with stage 5 chronic kidney disease or end stage renal disease; Z86.79 Personal history of other diseases of the circulatory system; Z79.01 Long term (current) use of anticoagulants; Z87.891 Personal history of nicotine dependence; Z99.2 Dependence on renal dialysis
CPT/HCPCS: 0223U; 70450; 70496; 70498; 71275; 74177; 80053; 80061; 80320; 80329; 82803; 83690; 83735; 84484; 85007; 85025; 85610; 85730; 87040; 87077; 87154; 93005; 96365; 96367; 99285; J0692; J1836; Q9967

== ENCOUNTER 2025-07-17 07:51 | Outpatient (CLI) | payer MEDICARE, MEDICAID, SELFPAY ==
--- OUTSIDE RECORDS SUMMARY | 2024-06-13 10:00 | XMS_ITS ---
Author Organization [facility] Address [address] [place] [id number] Care Team Providers Care Sewing Machine Repairer Name Role Phone Jeffrey Sun Primary Care Provider [phone] Caren Jones Unavailable [phone] Allergies No Known Allergies REASON FOR VISIT [facility] Medications Medication SIG (Take, Route, Frequency, Duration) Notes Start Date End Date Status Rocaltrol 0.5 MCG 1 capsule Orally Three times a Week T,T,Sat Active traZODone HCl 100 MG 1 tablet at bedtime Orally Once a day Active Iron Sucrose 20 MG/ML 2.5ml Intravenous T,T,Sat at dialysis Active Methoxy PEG-Epoetin Beta 75 MCG/0.3ML 3 ml Injection q 14 days at dialysis Active Vitamin D-3 125 MCG (5000 UT) 1 cap(s) orally once a week; Duration: 90 days Not-Taking Multivitamin - 1 tab(s) orally once a day; Duration: 30 day(s) Not-Taking Lidoderm 5 % 3 patches remove after 12 hours Externally Once a day 03/08/2023 Not-Taking Montelukast Sodium 10 MG 1 tablet Orally Once a day Active Cetirizine HCl 10 MG 1 tab(s) orally once a day Active Calcium Acetate 668 (169 Ca) MG 1 tab(s) Orally with first bite of each meal Active Atorvastatin Calcium 80 MG 1 tab(s) orally once a day Active Vitamin B 12 500 MCG 2 tab(s) orally once a day Active Pantoprazole Sodium 40 MG 1 tab(s) orally once a day Active Fluticasone Propionate 50 MCG/ACT 1 spray in each nostril Nasally Once a day Active Oxygen - 2L/min continuous per nasal cannula as directed supplemental prn 12/30/2023 Active Loperamide HCl 2 MG 1 capsule as needed Orally Four times a day Active Acetaminophen 500 MG 2 tablet as needed Orally every 6 hrs prn Active Amiodarone HCl 200 MG TAKE 1 TABLET TWICE DAILY Active Nephro-Zack 0.8 MG 1 tablet Orally Once a day 1 mg Active Eliquis 2.5 MG 1 tab(s) orally 2 times a day 10/27/2022 Active Regular Diet - as directed CCHO Act palomo Calcium Acetate (Phos Binder) 667 MG 1 tablet with meals Orally Three times a day with meals Active Zinc Oxide (Topical) 16 & 40 % as directed Externally with wound care qd Active Problems Problem Type SNOMED Code ICD Code Onset Dates Problem Status W/U Status Risk Notes Problem Anemia (089551612) Anemia, unspecified type (D64.9) Active confirmed Problem End stage renal disease (09953629) End stage renal disease (N18.6) Active confirmed Problem Atrial fibrillation (73804313) Atrial fibrillation, unspecified type (I48.91) Active confirmed Problem Difficulty sleeping (193695572) Sleep difficulties (G47.9) Active confirmed Problem Pressure injury of sacral region of back (disorder) (596159672) Sacral decubitus ulcer (L89.159) Active confirmed Problem Gastroesophageal reflux disease (234534312) GERD (gastroesophage al reflux disease) (K21.9) Active confirmed Vital Signs Blood pressure systolic 151 mm Hg 06/13/20 24 Blood pressure diastolic 82 mm Hg 024 Heart Rate 64 /min 06/13/2024 Respiratory Rate 20 /min 06/13/2024 Weight 223.8 lbs 06/13/2024 Encounters Encounter Location Date Provider Diagnosis [address] [place], [place] [id number] 06/13/2024 Caren Jones Type 2 diabetes eugene itus without complication E11.9 ; Essential hypertension I10 ; Hyperlipidemia, unspecified hyperlipidemia type E78.5 ; CKD (chronic kidney disease) stage 4, GFR 15-29 ml/min N18.4 ; Anemia, unspecified type D64.9 ; Atherosclerosis of [place] coronary artery without angina pectoris, unspecified whether [place] or transplanted heart I25.10 ; Chronic obstructive pulmonary disease, unspecified COPD type J44.9 ; Allergic rhinitis, unspecified seasonality, unspecified trigger J30.9 ; End stage renal disease N18.6 ; Leg weakness R29.898 ; Debility R53.81 ; CKD (chronic kidney disease) stage 5, GFR less than 15 ml/min N18.5 ; Atrial fibrillation, unspecified type I48.91 ; Former smoker Z87.891 ; Sleep difficulties G47.9 ; Sacral decubitus ulcer L89.159 and GERD (gastroesophageal reflux disease) K21.9 Assessments Encounter Date Diagnosis (ICD Code) Assessment Notes Treatment Notes Treatment Clinical Notes Section Notes 06/13/2024 Type 2 diabetes mellitus without complication (ICD-10 - E11.9) 06/13/2024 Essential hypertension (ICD-10 - I10) 06/13/2024 Hyperlipidemia, unspecified hyperlipidemia type (ICD-10 - E78.5) 06/13/2024 CKD (chronic kidney disease) stage 4, GFR 15-29 ml/min (ICD-10 - N18.4) on dialysis 3 x weekly 06/13/2024 Anemia, unspecified type (ICD-10 - D64.9) 06/13/2024 Atherosclerosis of [place] coronary artery without angina pectoris, unspecified whether [place] or transplanted heart (ICD-10 - I25.10) 06/13/2024 Chronic obstructive pulmonary disease, unspecified COPD type (ICD-10 - J44.9) 06/13/2024 Allergic rhinitis, unspecified seasonality, unspecified trigger (ICD-10 - J30.9) 06/13/2024 End stage renal disease (ICD-10 - N18.6) on dialysis 3 x weekly 06/13/2024 Leg weakness (ICD-10 - R29.898) OOB as toerates; is OOB 3 x weekly when goes to dialysis 06/13/2024 Debility (ICD-10 - R53.81) 06/13/2024 CKD (chronic kidney disease) stage 5, GFR less than 15 ml/min (ICD-10 - N18.5) 06/13/2024 Atrial fibrillation, unspecified type (ICD-10 - I48.91) 06/13/2024 Former smoker (ICD-10 - Z87.891) 06/13/2024 Sleep difficulties (ICD-10 - G47.9) 06/13/2024 Sacral decubitus ulcer (ICD-10 - L89.159) wound care MD sees pt weekly ; nursing feels the wound is smaller 06/13/2024 GERD (gastroesophageal reflux disease) (ICD-10 - K21.9) 06/13/2024 Other Zofran added fo nausea Plan Of Treatment Medication Medication Name Sig Start Date Stop Date Notes Rocaltrol 0.5 MCG 1 capsule Orally Three times a Week T,T,Sat traZODone HCl 100 MG 1 tablet at bedtime Orally Once a day Iron Sucrose 20 MG/ML 2.5ml Intravenous T,T,Sat at dialysis Methoxy PEG-Epoetin Beta 75 MCG/0.3ML 3 ml Injection q 14 days at dialysis Montelukast Sodium 10 MG 1 tablet Orally Once a day Cetirizine HCl 10 MG 1 tab(s) orally onc e a day Atorvastatin Calcium 80 MG 1 tab(s) orally once a day Vitamin B 12 500 MCG 2 tab(s) orally onc e a day Pantoprazole Sodium 40 MG 1 tab(s) orally once a day Fluticasone Propionate 50 MCG/ACT 1 spray in each nostril Nasally Once a day Oxygen - 2L/min continuous pe r nasal cannula as directed 12/30/2023 supplemental prn Loperamide HCl 2 MG 1 capsule as needed Orally Four times a day Acetaminophen 500 MG 2 tablet as needed Orally every 6 hrs prn Amiodarone HCl 200 MG TAKE 1 TABLET TWIC E DAILY Nephro-Zack 0.8 MG 1 tablet Orally Once a day 1 mg Eliquis 2.5 MG 1 tab(s) orally 2 times a day 10/27/2022 Regular Diet - as directed CCHO Calcium Acetate (Phos Binder) 667 MG 1 tablet with meals Orally Three times a day with meals Zinc Oxide (Topical) 16 & 40 % as directed Externally with wound care qd Treatment Notes Assessment Notes CKD (chronic kidney disease) stage 4, GFR 15-29 ml/min on dialysis 3 x weekly End stage renal disease on dialysis 3 x weekly Leg weakness OOB as toerates; is OOB 3 x weekly when goes to dialysis Sacral decubitus ulcer wound care MD see s pt weekly ; nursing feels the wound is smaller Other Zofran added fo naus ea Next Appt Details Follow Up: 2 Months,and prn, Reason: Progress Notes * PEGGY FUENTES:1950 (74 yo M)Acc No.[id number]:06/13/2024 Progress Notes Patient: ALEXA URIOSTEGUI Provider: CASEY Bradshaw :1950 A ge:73 Y S ex:Male Date:06/13/2024 Address:[address] [place], [place] [address] [address], [place], [phone] Pcp:Jeffrey Sun Subjective: * Chief Complaints: * 1 . [facility]. * HPI: H PI: For routine Group Home visit; chart reviewed and patient examined; see ROS has just returned from Dialysis and is tired. * ROS: R ESPIRATORY: no S hortness of breath. n o C hest pain. n o?Chest congestion. n o C ough. C ARDIOLOGY: no C hest pain. n o L eg edema. n o S hortness of breath. G ASTROENTEROLOGY: Nausea y es, p eriodic nausea. n o V omiting.?no A bdominal pain. n o D iarrhea. n o C onstipation. M USCULOSKELETAL: Positive for i s up for dialysis 3 times weekly .? U ROLOGY: Positive for c ontinues with dialysis Tues, Thurs and Sat.? * Medical History: H ypertension, Type 2 Diabetes, Hypercholestrolemia, Hypertriglyceridemia, Anemia, Cataract, Colon Polyps, Atrial Fibrilation, 2019, Sleep Apnea , Proteinuria, Stage 4 Chronic Kidney Disease, stage 4 as of 2019, [facility], Covid with Pneumonia, s/p [facility] 2 months and SNF 5 months, 09/28/2020, ESKD with dialysis 3 times weekly. * Surgical History: K idney Stone Removal- [facility] 2006, Prostate- [facility] 2010, Heart Cath & ECHO 04/2017. * Hospitalization/Major Diagno stic Procedure: C ovid-19- [facility] 2020, Respiratory Failure- and [facility] 2020, Stage 4 Chronic Kidney Disease, GFR 15-29 ml/min 06/13-. * Family History: F ather: , cancer. M other: alive. S iblings: Brother- Cancer. 2 brother(s) , 1 sister(s) . 1 son(s) , 1 daughter(s) - healthy. . * Social History: C URRENT TOBACCO USE S moking Status: Emilia corado does NOT smoke Quit in Oct 14, 2006 - smoked over 1ppd for > 30 years. C affeine: yes, frequency: 3-5 cups a day. Exercise: no. Marital Status: . Alcohol: No. * Medications: T aking Iron Sucrose 20 MG/ML Solution 2.5ml Intravenous T,T,Sat at dialysis , Taking Methoxy PEG-Epoetin Beta 75 MCG/0.3ML Solution Prefilled Syringe 3 ml Injection q 14 days at dialysis , Taking Rocaltrol 0.5 MCG Capsule 1 capsule Orally Three times a Week T,T,Sat , Taking traZODone HCl 100 MG Tablet 1 tablet at bedtime Orally Once a day , Taking Calcium Acetate (Phos Binder) 667 MG Tablet 1 tablet with meals Orally Three times a day with meals , Taking Zinc Oxide (Topical) 16 & 40 % Kit as directed Externally , Notes to Pharmacist: with wound care qd, Taking Regular Diet - - as directed , Notes to Pharmacist: CCHO, Taking Acetaminophen 500 MG Tablet 2 tablet as needed Orally every 6 hrs prn , Taking Loperamide HCl 2 MG Capsule 1 capsule as needed Orally Four times a day , Taking Nephro-Zack 0.8 MG Tablet 1 tablet Orally Once a day , Notes to Pharmacist: 1 mg, Taking Eliquis 2.5 MG Tablet 1 tab(s) orally 2 times a day , Taking Amiodarone HCl 200 MG Tablet TAKE 1 TABLET TWICE DAILY , Taking Pantoprazole Sodium 40 MG Tablet Delayed Release 1 tab(s) orally once a day , Taking Fluticasone Propionate 50 MCG/ACT Suspension 1 spray in each nostril Nasally Once a day , Taking Calcium Acetate 668 (169 Ca) MG Tablet 1 tab(s) Orally with first bite of each meal , Taking Vitamin B 12 500 MCG Tablet 2 tab(s) orally once a day , Taking Atorvastatin Calcium 80 MG Tablet 1 tab(s) orally once a day , Taking Cetirizine HCl 10 MG Tablet 1 tab(s) orally once a day , Taking Montelukast Sodium 10 MG Tablet 1 tablet Orally Once a day , Taking Oxygen - - 2L/min continuous per nasal cannula as directed , Notes to Pharmacist: supplemental prn, Not-Taking Multivitamin - Tablet 1 tab(s) orally once a day , Not-Taking Lidoderm 5 % Patch 3 patches remove after 12 hours Externally Once a day , Not-Taking Vitamin D-3 125 MCG (5000 UT) Tablet 1 cap(s) orally once a week , Medication List reviewed and reconciled with the patient * Allergies: N .K.D.A. Objective: * Vitals: W t:223.8, Temp:98.2, BP:151/82, HR:64, O2 Sat:93%, Nurse:reviewed/recorded by [facility], RR:20. * Examination: G eneral Examination: General Appearance: NAD, alert, pleasant. C hest:? left chest with IV access for dialysis; dressing C/D. H eart: RRR. L ungs: CTAB A&P. A bdomen: bowel sounds present, soft and nontender. N eurologic Exam: alert and oriented. S kin: coccyx wound has improved; followed by wound care MD. E xtremities: no leg edema. Assessment: * Assessment: 1. T ype 2 diabetes mellitus without complication - E11.9 (Primary) 2 . E ssential hypertension - I10 3 . H yperlipidemia, unspecified hyperlipidemia type - E78.5 4 . C KD (chronic kidney disease) stage 4, GFR 15-29 ml/min - N18.4 5 . A nemia, unspecified type - D64.9 6 . A therosclerosis of [place] coronary artery without angina pectoris, unspecified whether [place] or transplanted heart - I25.10 7 . C hronic obstructive pulmonary disease, unspecified COPD type - J44.9 8. A llergic rhinitis, unspecified seasonality, unspecified trigger - J30.9 ? 9 . E nd stage renal disease - N18.6 1 0. L eg weakness - R29.898? 11. D ebility - R53.81 1 2. C KD (chronic kidney disease) stage 5, GFR less than 15 ml/min - N18.5 1 3. A trial fibrillation, unspecified type - I48.91 1 4. F ormer smoker - Z87.891 1 5. S leep difficulties - G47.9 1 6. S acral decubitus ulcer - L89.159 1 7. GERD (gastroesophageal reflux disease) - K21.9 Plan: * Treatment: 2. C KD (chronic kidney disease) stage 4, GFR 15-29 ml/min Notes: on dialysis 3 x weekly 3. A nemia, unspecified type Continue Iron Sucrose Solution, 20 MG/ML, 2.5ml, Intravenous, T,T,Sat at dialysis; C ontinue Vitamin B 12 Tablet, 500 MCG, 2 tab(s), orally, once a day. 4. C hronic obstructive pulmonary disease, unspecified COPD type Continue Oxygen -, -, 2L/min continuous, per nasal cannula, as directed, Notes to Pharmacist: supplemental prn. 5. A llergic rhinitis, unspecified seasonality, unspecified trigger Continue Fluticasone Propionate Suspension, 50 MCG/ACT, 1 spray in each nostril, Nasally, Once a day; C ontinue Montelukast Sodium Tablet, 10 MG, 1 tablet, Orally, Once a day; C ontinue Cetirizine HCl Tablet, 10 MG, 1 tab(s), orally, once a day. 6. E nd stage renal disease Continue Methoxy PEG-Epoetin Beta Solution Prefilled Syringe, 75 MCG/0.3ML, 3 ml, Injection, q 14 days at dialysis; C ontinue Calcium Acetate (Phos Binder) Tablet, 667 MG, 1 tablet with meals, Orally, Three times a day with meals. Notes: on dialysis 3 x weekly 7. L eg weakness Notes: OOB as toerates; is OOB 3 x weekly when goes to dialysis 8. D ebility Continue Rocaltrol Capsule, 0.5 MCG, 1 capsule, Orally, Three times a Week T,T,Sat; C ontinue Nephro-Zack Tablet, 0.8 MG, 1 tablet, Orally, Once a day, Notes to Pharmacist: 1 mg. 9. A trial fibrillation, unspecified type Continue Eliquis Tablet, 2.5 MG, 1 tab(s), orally, 2 times a day; C ontinue Amiodarone HCl Tablet, 200 MG, TAKE 1 TABLET TWICE DAILY. 10. S leep difficulties Continue traZODone HCl Tablet, 100 MG, 1 tablet at bedtime, Orally, Once a day. 11. S acral decubitus ulcer Continue Zinc Oxide (Topical) Kit, 16 & 40 %, as directed, Externally, Notes to Pharmacist: with wound care qd. Notes: wound care MD sees pt weekly ; nursing feels the wound is smaller 12. G ERD (gastroesophageal reflux disease) Continue Pantoprazole Sodium Tablet Delayed Release, 40 MG, 1 tab(s), orally, once a day. ? 13. O thers Continue Regular Diet -, -, as directed, Notes to Pharmacist: CCHO; C ontinue Acetaminophen Tablet, 500 MG, 2 tablet as needed, Orally, every 6 hrs prn; C ontinue Loperamide HCl Capsule, 2 MG, 1 capsule as needed, Orally, Four times a day. Notes: Zofran added fo nausea * Follow Up: 2 Months,and prn * Images: Billing Information: * Visit Code: 16735 subs. level 4. * Procedure Codes: * Electronic signature of Vanita Jones APRN on 07/17/2025 at 07:54 AM EST Sign off status: Pending * Provider: CASEY Bradshaw Date: Generated for Areli berkowitz/Jessie/Donalditting on: 09/16/2024 07:54 AM EST History and Physical Notes * HPI (History of Present Illness) Category Sub-Category Detail Notes Category Not es HPI For routine Group Home visit; chart reviewed and patient examined; see ROS has just returned from Dialysis and is tired Examination Category Sub-Category Detail Notes Category Not es General Examination Heart: RRR Lungs: CTAB A&P Abdomen: bowel sounds present , soft and nontender Extremities: no leg edema General Appearance: NAD, alert, pleasant Skin: coccyx wound has imp roved; followed by wound care MD Neurologic Exam: alert and oriented Chest: left chest with IV a ccess for dialysis; dressing C/D
--- OUTSIDE RECORDS SUMMARY | 2024-09-12 09:45 | XMS_ITS ---
[facility] [address] [facility] [address] [place] [id number] Care Team Providers Care Telemedicine Physician Name Role Phone Jeffrey Sun Primary Care Provider Caren Jones Unavailable [phone] Allergies No Known Allergies REASON FOR VISIT [facility] VISIT Medications Medication SIG (Take, Route, Frequency, Duration) Notes Start Date End Date Status Zinc Oxide (Topical) 16 & 40 % as directed Externally with wound care qd Not-Taking Lidoderm 5 % 3 patches remove after 12 hours Externally Once a day 03/08/2023 Not-Taking Multivitamin - 1 tab(s) orally once a day; Duration: 30 day(s) Not-Taking Ipratropium-Albuter ol 0.5-2.5 (3) MG/3ML 3 ml as needed Inhalation every 6 hrs-QID and q2h prn 09/16/2024 Active Vitamin D-3 125 MCG (5000 UT) 1 cap(s) orally once a week; Duration: 90 days Not-Taking Loperamide HCl 2 MG 1 capsule as needed Orally Four times a day Active Benzonatate 100 MG 2 capsule as needed orally q8h prn Active Acetaminophen 500 MG 2 tablet as needed Orally every 6 hrs prn Active Ondansetron 4 MG 1 tablet on the tongue and allow to dissolve Orally q8h prn Active Robitussin Peak Cold Multi-Sym 5-10-100 MG/5ML 10 mL as needed Orally every 4 hrs prn Active Fluticasone Propionate 50 MCG/ACT 1 spray in each nostril Nasally Once a day Active Montelukast Sodium 10 MG 1 tablet Orally Once a day Active Cetirizine HCl 10 MG 1 tab(s) orally once a day Active Zinc 220 (50 Zn) MG 1 capsule Orally Once a day Active Calmoseptine 0.44-20.6 % as directed Externally qd Active Atorvastatin Calcium 80 MG 1 tab(s) orally once a day Active Oxygen - 2L/min continuous per nasal cannula as directed supplemental prn Active Pantoprazole Sodium 40 MG 1 tab(s) orally once a day Active Vitamin B 12 500 MCG 2 tab(s) orally once a day Active Regular Diet - as directed CCHO; DARLENE; no beans, bananas, oranges Active traZODone HCl 100 MG 1 tablet at bedtime Orally Once a day Active Calcium Acetate (Phos Binder) 667 MG 1 tablet with meals Orally Three times a day with meals Active Eliquis 2.5 MG 1 tab(s) orally 2 times a day Active Amiodarone HCl 200 MG TAKE 1 TABLET TWICE DAILY Active Nephro-Zack 0.8 MG 1 tablet Orally Once a day 1 mg Active Iron Sucrose 20 MG/ML 2.5ml Intravenous T,T,Sat at dialysis Active Methoxy PEG-Epoetin Beta 75 MCG/0.3ML 3 ml Injection q 14 days at dialysis Active Rocaltrol 0.5 MCG 1 capsule Orally Three times a Week T,T,Sat Active Vital Signs Blood pressure systolic 160 mm Hg 09/12/20 24 Blood pressure diastolic 80 mm Hg 024 Heart Rate 68 /min 09/12/2024 Respiratory Rate 18 /min 09/12/2024 Weight 237.6 lbs 09/12/2024 Encounters Encounter Location Date Provider Diagnosis [address] [place], [place] [id number] 09/12/2024 Caren Jones Type 2 diabetes eugene itus without complication E11.9 ; Essential hypertension I10 ; Hyperlipidemia, unspecified hyperlipidemia type E78.5 ; Anemia, unspecified type D64.9 ; Atherosclerosis of level[place] coronary artery without angina pectoris, unspecified whether levelock or transplanted heart I25.10 ; Chronic obstructive [...] difficulties G47.9 ; Sacral decubitus ulcer L89.159 ; GERD (gastroesophageal reflux disease) K21.9 and Bronchitis J40 Assessments Encounter Date Diagnosis (ICD Code) Assessment Notes Treatment Notes Treatment Clinical Notes Section Notes 09/12/2024 Type 2 diabetes mellitus without complication (ICD-10 - E11.9) CCHO diet 09/12/2024 Essential hypertension (ICD-10 - I10) 09/12/2024 Hyperlipidemia, unspecified hyperlipidemia type (ICD-10 - E78.5) 09/12/2024 Anemia, unspecified type (ICD-10 - D64.9) 09/12/2024 Atherosclerosis of level[place] coronary artery without angina pectoris, unspecified whether levelock or transplanted heart (ICD-10 - I25.10) 09/12/2024 Chronic obstructive pulmonary disease, unspecified COPD type (ICD-10 - J44.9) 09/12/2024 Allergic rhinitis, unspecified seasonality, unspecified trigger (ICD-10 - J30.9) 09/12/2024 End stage renal disease (ICD-10 - N18.6) on dialysis 3 x weekly 09/12/2024 Leg weakness (ICD-10 - R29.898) OOB as toerates; is OOB 3 x weekly when goes to dialysis 09/12/2024 Debility (ICD-10 - R53.81) 09/12/2024 CKD (chronic kidney disease) stage 5, GFR less than 15 ml/min (ICD-10 - N18.5) 09/12/2024 Atrial fibrillation, unspecified type (ICD-10 - I48.91) 09/12/2024 Former smoker (ICD-10 - Z87.891) 09/12/2024 Sleep difficulties (ICD-10 - G47.9) 09/12/2024 Sacral decubitus ulcer (ICD-10 - L89.159) wound care rovider continues to follow pt; using med honey with Magic but cream around the wound 09/12/2024 GERD (gastroesophageal reflux disease) (ICD-10 - K21.9) 09/12/2024 Bronchitis (ICD-10 - J40) will add neb [place] Plan Of Treatment Medication Medication Name Sig Start Date Stop Date Notes Ipratropium-Albuterol 0.5-2.5 (3) MG/3ML 3 ml as needed Inhalation every 6 hrs-QID and q2h prn 09/16/2024 Loperamide HCl 2 MG 1 capsule as needed Orally Four times a day Benzonatate 100 MG 2 capsule as needed orally q8h prn Acetaminophen 500 MG 2 tablet as needed Orally every 6 hrs prn Ondansetron 4 MG 1 tablet on the tong ue and allow to dissolve Orally q8h prn Robitussin Peak Cold Multi-Sym 5-10-100 MG/5ML 10 mL as needed Orally every 4 hrs prn Fluticasone Propionate 50 MCG/ACT 1 spray in each nostril Nasally Once a day Montelukast Sodium 10 MG 1 tablet Orally Once a day Cetirizine HCl 10 MG 1 tab(s) orally onc e a day Zinc 220 (50 Zn) MG 1 capsule Orally Onc e a day Calmoseptine 0.44-20.6 % as directed Ext ernally qd Atorvastatin Calcium 80 MG 1 tab(s) orally once a day Oxygen - 2L/min continuous pe r nasal cannula as directed supplemental prn Pantoprazole Sodium 40 MG 1 tab(s) orall y once a day Vitamin B 12 500 MCG 2 tab(s) orally onc e a day traZODone HCl 100 MG 1 tablet at bedtime Orally Once a day Calcium Acetate (Phos Binder) 667 MG 1 tablet with meals Orally Three times a day with meals Eliquis 2.5 MG 1 tab(s) orally 2 times a day Amiodarone HCl 200 MG TAKE 1 TABLET TWIC E DAILY Nephro-Zack 0.8 MG 1 tablet Orally Once a day 1 mg Iron Sucrose 20 MG/ML 2.5ml Intravenous T,T,Sat at dialysis Methoxy PEG-Epoetin Beta 75 MCG/0.3ML 3 ml Injection q 14 days at dialysis Rocaltrol 0.5 MCG 1 capsule Orally Thr ee times a Week T,T,Sat Treatment Notes Assessment Notes Type 2 diabetes mellitus wit hout complication CCHO diet End stage renal disease on dialysis 3 x weekly Leg weakness OOB as toerates; is OOB 3 x weekly when goes to dialysis Sacral decubitus ulcer wound care alberto rosas continues to follow pt; using med honey with Magic but cream around the wound Bronchitis will add neb [place] Next Appt Details Follow Up: 2 Months,and prn, Reason: Progress Notes * ALEXA FUENTESDOB:1950 (74 yo M)Acc No.[id number]:09/12/2024 Progress Notes Patient: ALEXA URIOSTEGUI Provider: CASEY Bradshaw :1950 A ge:73 Y S ex:Male Date:09/12/2024 Address:[address] [place] [address] [address] [place], [id number] Pcp:Jeffrey Sun Subjective: * Chief Complaints: * 1 . [facility] VISIT. * HPI: H PI: For routine Alf visit; chart reviewed and patient examined; see ROS; pt continues with dialysis M,W,F; nursing reports no unusal events. * ROS: R ESPIRATORY: Cough y es, s ometimes productive. C ARDIOLOGY: Positive for l ow BP during dialysis. D ERMATOLOGY: wound o n coccyx being followed by the wound MD. G ASTROENTEROLOGY: Positive for e ating as usual. n o V omiting. D iarrhea y es, p eriodic. U ROLOGY: Positive for c ontinues with dialysis M,W,F, Dialysis. * Medical History: H ypertension, Type 2 Diabetes, Hypercholestrolemia, Hypertriglyceridemia, Anemia, Cataract, Colon Polyps, Atrial Fibrilation, 2019, Sleep Apnea , Proteinuria, Stage 4 Chronic Kidney Disease, stage 4 as of 2019, [facility], Covid with Pneumonia, s/p [facility] 2 months and SNF 5 months, 09/28/2020, ESKD with dialysis 3 times weekly. * Surgical History: K idney Stone Removal- [facility] 2006, Prostate- [facility] 2010, Heart Cath & ECHO 04/2017. * Hospitalization/Major Diagno stic Procedure: C ovid-19- [facility] 2020, Respiratory Failure- and [facility] 2020, Stage 4 Chronic Kidney Disease, GFR 15-29 ml/min 06/13-. * Family History: F ather: , cancer. M other: alive. S iblings: Brother- Cancer. 2 brother(s) , 1 sister(s) . 1 son(s) , 1 daughter(s) - healthy. . * Social History: C URRENT TOBACCO USE S moking Status: P mickie does NOT smoke Quit in Oct 14, 2006 - smoked over 1ppd for > 30 years. C affeine: yes, frequency: 3-5 cups a day. Exercise: no. Marital Status: . Alcohol: No. * Medications: T aking Zinc 220 (50 Zn) MG Capsule 1 capsule Orally Once a day , Taking Calmoseptine 0.44-20.6 % Ointment as directed Externally qd , Taking Ondansetron 4 MG Tablet Disintegrating 1 tablet on the tongue and allow to dissolve Orally q8h prn , Taking Robitussin Peak Cold Multi-Sym 5-10-100 MG/5ML Liquid 10 mL as needed Orally every 4 hrs prn , Taking Benzonatate 100 MG Capsule 2 capsule as needed orally q8h prn , Taking Iron Sucrose 20 MG/ML Solution 2.5ml Intravenous T,T,Sat at dialysis , Taking Methoxy PEG-Epoetin Beta 75 MCG/0.3ML Solution Prefilled Syringe 3 ml Injection q 14 days at dialysis , Taking Rocaltrol 0.5 MCG Capsule 1 capsule Orally Three times a Week M,W,F on dialysis days , Taking traZODone HCl 100 MG Tablet 1 tablet at bedtime Orally Once a day , Taking Calcium Acetate (Phos Binder) 667 MG Tablet 2 tablets with meals Orally Three times a day with meals , Taking Regular Diet - - as directed , Notes to Pharmacist: CCHO; DARLENE; no beans, bananas, oranges, Taking Acetaminophen 500 MG Tablet 2 tablet [...] tab(s) orally once a day , Taking Vitamin B 12 500 MCG Tablet 1 tablet orally once a day , Taking Atorvastatin Calcium 80 MG Tablet 1 tab(s) orally once a day , Taking Oxygen - - 2L/min continuous per nasal cannula as directed , Notes to Pharmacist: supplemental prn, Taking Fluticasone Propionate 50 MCG/ACT Suspension 1 spray in each nostril Nasally Once a day , Taking Montelukast Sodium 10 MG Tablet 1 tablet Orally Once a day , Taking Cetirizine HCl 10 MG Tablet 1 tab(s) orally once a day , Not-Taking Zinc Oxide (Topical) 16 & 40 % Kit as directed Externally , Notes to Pharmacist: with wound care qd, Not-Taking Multivitamin - Tablet 1 tab(s) orally once a day , Not-Taking Lidoderm 5 % Patch 3 patches remove after 12 hours Externally Once a day , Not-Taking Vitamin D-3 125 MCG (5000 UT) Tablet 1 cap(s) orally once a week , Medication List reviewed and reconciled with the patient * Allergies: N .K.D.A. Objective: * Vitals: W t:237.6, Temp:98, BP:160/80, HR:68, O2 Sat:96%, Nurse:reviewed/recorded by monique, RR:18. * Examination: G eneral Examination: General Appearance: He is alert and appears comfortable; lying on his left side watching TV. H eart: RRR. L ungs: bilateral rhonchi and wheezing. A bdomen: bowel sounds present; obese. N eurologic Exam: alert and oriented. E xtremities: 1+ bilateral leg edema. Assessment: * Assessment: 1. T ype 2 diabetes mellitus without complication - E11.9 (Primary) 2 . E ssential hypertension - I10 3 . H yperlipidemia, unspecified hyperlipidemia type - E78.5 4 . A nemia, unspecified type - D64.9 5 . A therosclerosis of level[place] coronary artery without angina pectoris, unspecified whether [place] or transplanted heart - I25.10 6 . C hronic obstructive pulmonary disease, unspecified COPD type - J44.9 7 . A llergic rhinitis, unspecified seasonality, unspecified trigger - J30.9 8 . E nd stage renal disease - N18.6 9 . L eg weakness - R29.898 1 0. D ebility - R53.81 1 1. C KD (chronic kidney disease) stage 5, GFR less than 15 ml/min - N18.5 1 2. A trial fibrillation, unspecified type - I48.91 1 3. F ormer smoker - Z87.891 1 4. S leep difficulties - G47.9 1 5. S acral decubitus ulcer - L89.159 16. G ERD (gastroesophageal reflux disease) - K21.9 1 7. B jonathon - J40 Plan: * Treatment: 2. H yperlipidemia, unspecified hyperlipidemia type Continue Atorvastatin Calcium Tablet, 80 MG, 1 tab(s), orally, once a day. 3. A nemia, unspecified type Continue Iron [...] 11. S acral decubitus ulcer Continue Zinc Capsule, 220 (50 Zn) MG, 1 capsule, Orally, Once a day; C ontinue Calmoseptine Ointment, 0.44-20.6 %, as directed, Externally, qd. Notes: wound care nayabertin continues to follow pt; using med honey with Magic but cream around the wound 12. G ERD (gastroesophageal reflux disease) Continue Pantoprazole Sodium Tablet Delayed Release, 40 MG, 1 tab(s), orally, once a day. ? 13. B ronchitis Start Ipratropium-Albuterol Solution, 0.5-2.5 (3) MG/3ML, 3 ml as needed, Inhalation, every 6 hrs-QID and q2h prn. Notes: will add neb [place] 14. O thers Continue Ondansetron Tablet Disintegrating, 4 MG, 1 tablet on the tongue and allow to dissolve, Orally, q8h prn; C ontinue Robitussin Peak Cold Multi-Sym Liquid, 5-10-100 MG/5ML, 10 mL as needed, Orally, every 4 hrs prn; C ontinue Benzonatate Capsule, 100 MG, 2 capsule as needed, orally, q8h prn; C ontinue Acetaminophen Tablet, 500 MG, 2 tablet as needed, Orally, every 6 hrs prn; C ontinue Loperamide HCl Capsule, 2 MG, 1 capsule as needed, Orally, Four times a day. * Follow Up: 2 Months,and prn * Images: Billing Information: * Visit Code: 51450 subs. level 4. * Procedure Codes: * Electronic signature of Vanita Jones APRN on 07/17/2025 at 07:53 AM EST Sign off status: Pending * Provider: CASEY Bradshaw Date: Generated for Areli berkowitz/Jessie/Pablo on: 09/16/2024 07:53 AM EST History and Physical Notes * HPI (History of Present Illness) Category Sub-Category Detail Notes Category Not es HPI For routine Radhames [facility] Home visit; chart reviewed and patient examined; see ROS; pt continues with dialysis M,W,F; nursing reports no unusal events Examination Category Sub-Category Detail Notes Category Not es General Examination Heart: RRR Lungs: bilateral rhonchi an d wheezing Abdomen: bowel sounds present ; obese Extremities: 1+ bilateral leg beverley ma General Appearance: He is alert and appe ars comfortable; lying on his left side watching TV Neurologic Exam: alert and oriented
--- OUTSIDE RECORDS SUMMARY | 2024-10-03 09:15 | XMS_ITS ---
Author Organization [facility] Address [address] [place] [phone] Care Team Providers Care Desk Representative Name Role Phone Jeffrey Sun Primary Care Provider Caren Jones Unavailable [phone] Allergies No Known Allergies REASON FOR VISIT [facility] HOME VISIT Medications Medication SIG (Take, Route, Frequency, Duration) Notes Start Date End Date Status Loperamide HCl 2 MG 1 capsule as needed Orally Four times a day Active Robitussin Peak Cold Multi-Sym 5-10-100 MG/5ML 10 mL as needed Orally every 4 hrs prn Active Ondansetron 4 MG 1 tablet on the tongue and allow to dissolve Orally q8h prn Active Acetaminophen 500 MG 2 tablet as needed Orally every 6 hrs prn Active Benzonatate 100 MG 2 capsule as needed orally q8h prn Active traZODone HCl 50 MG 1 tablet at bedtime Orally Once a day Active Nephro-Zack 0.8 MG 1 tablet Orally Once a day 1 mg Active Pro-Stat - 30 ml Orally bid Ac tive Regular Diet - as directed CCHO; DARLENE; no beans, bananas, oranges Active Vitamin B 12 500 MCG 2 tab(s) orally once a day Active Rocaltrol 0.5 MCG 1 capsule Orally Three times a Week M,W,F Active Zinc 220 (50 Zn) MG 1 capsule Orally Once a day Active Cetirizine HCl 10 MG 1 tab(s) orally once a day Active Ipratropium-Albuterol 0.5-2.5 (3) MG/3ML 3 ml as needed Inhalation every 6 hrs-QID and q2h prn Active Calmoseptine 0.44-20.6 % as directed Externally qd Active Iron Sucrose 20 MG/ML 2.5ml Intravenous M,W,F at dialysis Active Oxygen - 2L/min continuous per nasal cannula as directed supplemental prn Active Montelukast Sodium 10 MG 1 tablet Orally Once a day Active Fluticasone Propionate 50 MCG/ACT 1 spray in each nostril Nasally Once a day Active Pantoprazole Sodium 40 MG 1 tab(s) orally once a day Active Atorvastatin Calcium 80 MG 1 tab(s) orally once a day Active Methoxy PEG-Epoetin Beta 75 MCG/0.3ML 3 ml Injection q 14 days at dialysis Active Calcium Acetate (Phos Binder) 667 MG 1 tablet with meals Orally Three times a day with meals Active Eliquis 2.5 MG 1 tab(s) orally 2 times a day Active Amiodarone HCl 200 MG TAKE 1 TABLET TWICE DAILY Active Vital Signs Blood pressure systolic 120 mm Hg 10/03/19 25 Blood pressure diastolic 68 mm Hg 025 Heart Rate 74 /min 10/03/2024 Respiratory Rate 20 /min 10/03/2024 Weight 230.5 lbs 10/03/2024 Encounters Encounter Location Date Provider Diagnosis [address] [place] [phone] 10/03/2024 Carenalis Jones Cough R05.9 ; Type 2 diabetes mellitus without complication E11.9 ; Essential hypertension I10 ; Hyperlipidemia, unspecified hyperlipidemia type E78.5 ; Anemia, unspecified type D64.9 ; Atherosclerosis of [place] coronary artery without angina pectoris, unspecified whether [place] or transplanted heart I25.10 ; Chronic obstructive [...] Treatment Notes Treatment Clinical Notes Section Notes 10/03/2024 Cough (ICD-10 - R05.9) will add Duonebs QID and continue with them prn; will change cough med to Phrnergan DM; will add Mucinex DM bid 10/03/2024 Type 2 diabetes mellitus without complication (ICD-10 - E11.9) CCHO diet 10/03/2024 Essential hypertension (ICD-10 - I10) 10/03/2024 Hyperlipidemia, unspecified hyperlipidemia type (ICD-10 - E78.5) 10/03/2024 Anemia, unspecified type (ICD-10 - D64.9) 10/03/2024 Atherosclerosis of [place] coronary artery without angina pectoris, unspecified whether [place] or transplanted heart (ICD-10 - I25.10) 10/03/2024 Chronic obstructive pulmonary disease, unspecified COPD type (ICD-10 - J44.9) 10/03/2024 Allergic rhinitis, unspecified seasonality, unspecified trigger (ICD-10 - J30.9) 10/03/2024 End stage renal disease (ICD-10 - N18.6) on dialysis 3 x weekly 10/03/2024 Leg weakness (ICD-10 - R29.898) OOB as toerates; is OOB 3 x weekly when goes to dialysis 10/03/2024 Debility (ICD-10 - R53.81) 10/03/2024 CKD (chronic kidney disease) stage 5, GFR less than 15 ml/min (ICD-10 - N18.5) 10/03/2024 Atrial fibrillation, unspecified type (ICD-10 - I48.91) 10/03/2024 Former smoker (ICD-10 - Z87.891) 10/03/2024 Sleep difficulties (ICD-10 - G47.9) 10/03/2024 Sacral decubitus ulcer (ICD-10 - L89.159) wound care provider continues to follow pt; using med honey with Magic but cream around the wound 10/03/2024 GERD (gastroesophageal reflux disease) (ICD-10 - K21.9) 10/03/2024 Bronchitis (ICD-10 - J40) will restart scheduled nebs Plan Of Treatment Medication Medication Name Sig Start Date Stop Date Notes traZODone HCl 50 MG 1 tablet at bedtime Orally Once a day Nephro-Zack 0.8 MG 1 tablet Orally Once a day 1 mg Vitamin B 12 500 MCG 2 tab(s) orally onc e a day Rocaltrol 0.5 MCG 1 capsule Orally Thr ee times a Week M,W,F Zinc 220 (50 Zn) MG 1 capsule Orally Onc e a day Cetirizine HCl 10 MG 1 tab(s) orally onc e a day Ipratropium-Albuterol 0.5-2.5 (3) MG/3ML 3 ml as needed Inhalation every 6 hrs-QID and q2h prn Calmoseptine 0.44-20.6 % as directed Ext ernally qd Iron Sucrose 20 MG/ML 2.5ml Intravenous M,W,F at dialysis Oxygen - 2L/min continuous pe r nasal cannula as directed supplemental prn Montelukast Sodium 10 MG 1 tablet Orally Once a day Fluticasone Propionate 50 MCG/ACT 1 spray in each nostril Nasally Once a day Pantoprazole Sodium 40 MG 1 tab(s) orally once a day Atorvastatin Calcium 80 MG 1 tab(s) orally once a day Methoxy PEG-Epoetin Beta 75 MCG/0.3ML 3 ml Injection q 14 days at dialysis Calcium Acetate (Phos Binder) 667 MG 1 tablet with meals Orally Three times a day with meals Eliquis 2.5 MG 1 tab(s) orally 2 ti mes a day Amiodarone HCl 200 MG TAKE 1 TABLET TWIC E DAILY Treatment Notes Assessment Notes Cough will add Duonebs QID and continue with them prn; will change cough med to Phrnergan DM; will add Mucinex DM bid Type 2 diabetes mellitus wit hout complication CCHO diet End stage renal disease on dialysis 3 x weekly Leg weakness OOB as toerates; is OOB 3 x weekly when goes to dialysis Sacral decubitus ulcer wound care provid er continues to follow pt; using med honey with Magic but cream around the wound Bronchitis will restart schedul ed nebs Next Appt Details Follow Up: 2 Months,and prn, Reason: Progress Notes * ALEXA FUENTESDOB:1950 (74 yo M)Acc No.[id number]:10/03/2024 Progress Notes Patient: ALEXA URIOSTEGUI Provider: CASEY Bradshaw :1950 A ge:73 Y S ex:Male Date:10/03/2024 Address:[facility] [place] [address], [place], [id number] Pcp:Jeffrey Sun Subjective: * Chief Complaints: * 1 . [facility] VISIT. * HPI: H PI: For routine Care Home visit; chart reviewed and patient examined; see ROS. * ROS: R ESPIRATORY: no S hortness of breath. n o C hest pain. C hest congestion y es. C ough y es, s till has a cough; nebs may have helped. M USCULOSKELETAL: Positive for i s up on dialysis days, muscle weakness. U ROLOGY: Positive for D ialysis. * Medical History: H ypertension, Type 2 Diabetes, Hypercholestrolemia, Hypertriglyceridemia, Anemia, Cataract, Colon Polyps, Atrial Fibrilation, 2019, Sleep Apnea , Proteinuria, Stage 4 Chronic Kidney Disease, stage 4 as of 2019, Nephrology, Covid with Pneumonia, s/p [facility] 2 months and SNF 5 months, 09/28/2020, ESKD with dialysis 3 times weekly. * Surgical History: K idney Stone Removal- [facility] 2006, Prostate- [facility] 2010, Heart Cath & ECHO 04/2017. * Hospitalization/Major Diagno stic Procedure: C ovid-19- [facility] 2020, Respiratory Failure- and [facility] 2020, Stage 4 Chronic Kidney Disease, [...] . Alcohol: No. * Medications: T aking Pro-Stat - Liquid 30 ml Orally bid , Taking Regular Diet - - as directed , Notes to Pharmacist: CCHO; DARLENE; no beans, bananas, oranges, Taking Iron Sucrose 20 MG/ML Solution 2.5ml Intravenous M,W,F at dialysis , Taking Rocaltrol 0.5 MCG Capsule 1 capsule Orally Three times a Week M,W,F , Taking traZODone HCl 50 MG Tablet 1 tablet at bedtime Orally Once a day , Taking Calcium Acetate (Phos Binder) 667 MG Tablet 1 tablet with meals Orally Three times a day with meals , Taking Nephro- Zack 0.8 MG Tablet 1 tablet Orally Once [...] tab(s) orally once a day , Taking Zinc 220 (50 Zn) MG Capsule 1 [...] as needed orally q8h prn , Taking Acetaminophen 500 MG Tablet 2 tablet as needed Orally every 6 hrs prn , Taking Loperamide HCl 2 MG Capsule 1 capsule as needed Orally Four times a day , Taking Ipratropium-Albuterol 0.5-2.5 (3) MG/3ML Solution 3 ml as needed Inhalation every 6 hrs-QID and q2h prn , Discontinued Zinc Oxide (Topical) 16 & 40 % Kit as directed Externally , Notes to Pharmacist: with wound care qd, Discontinued Multivitamin - Tablet 1 tab(s) orally once a day , Discontinued Lidoderm 5 % Patch 3 patches remove after 12 hours Externally Once a day , Discontinued Vitamin D-3 125 MCG (5000 UT) Tablet 1 cap(s) orally once a week , Unknown Methoxy PEG-Epoetin Beta 75 MCG/0.3ML Solution Prefilled Syringe 3 ml Injection q 14 days at dialysis , Medication List reviewed and reconciled with the patient * Allergies: N .K.D.A. Objective: * Vitals: W t:230.5, Temp:97.6, BP:120/68, HR:74, O2 Sat:95%, Nurse:reviewed/recorded by [facility], RR:20. * Examination: G eneral Examination: General Appearance: NAD, alert; lying on his left side watching TV. H eart: RRR. L ungs: lungs sound more clear; few rhonchi posteriorly; does have good air movement. N eurologic Exam: alert and oriented. E xtremities: trace of bilateral leg edema. Assessment: * Assessment: 1. C ough - R05.9 (Primary) 2 . T ype 2 diabetes mellitus without complication - E11.9 3 . E ssential hypertension - I10 4 . H yperlipidemia, unspecified hyperlipidemia type - E78.5 5 . A nemia, unspecified type - D64.9 6 . A therosclerosis of [place] coronary artery without angina pectoris, unspecified whether [place] or transplanted heart - I25.10 7 . C hronic obstructive pulmonary disease, unspecified COPD type - J44.9 8 . A llergic rhinitis, unspecified seasonality, unspecified trigger - J30.9 9 . E nd stage renal disease - N18.6 1 0. L eg weakness - R29.898 1 1. D ebility - R53.81 1 2. C KD (chronic kidney disease) stage 5, GFR less than 15 ml/min - N18.5 & #160; 1 3. A trial fibrillation, unspecified type - I48.91 1 4. F ormer smoker - Z87.891 1 5. S leep difficulties - G47.9 1 6. S acral decubitus ulcer - L89.159 1 7. G ERD (gastroesophageal reflux disease) - K21.9? 18. B ronchitis - J40 Plan: * Treatment: 2. T ype 2 diabetes mellitus without complication Notes: CCHO diet 3. H yperlipidemia, unspecified hyperlipidemia type Continue Atorvastatin Calcium Tablet, 80 MG, 1 tab(s), orally, once a day. 4. A nemia, unspecified type Continue Iron Sucrose Solution, 20 MG/ML, 2.5ml, Intravenous, M,W,F at dialysis; C ontinue Vitamin B 12 Tablet, 500 MCG, 2 tab(s), orally, once a day. 5. C hronic obstructive pulmonary disease, unspecified COPD type Continue Oxygen -, -, 2L/min continuous, per nasal cannula, as directed, Notes to Pharmacist: supplemental prn. 6. A llergic rhinitis, unspecified seasonality, unspecified trigger Continue Fluticasone Propionate Suspension, 50 MCG/ACT, 1 spray in each nostril, Nasally, Once a day; C ontinue Montelukast Sodium Tablet, 10 MG, 1 tablet, Orally, Once a day; C ontinue Cetirizine HCl Tablet, 10 MG, 1 tab(s), orally, once a day. 7. E nd stage renal disease Continue Methoxy PEG-Epoetin Beta Solution Prefilled Syringe, 75 MCG/0.3ML, 3 ml, Injection, q 14 days at dialysis; C ontinue Calcium Acetate (Phos Binder) Tablet, 667 MG, 1 tablet with meals, Orally, Three times a day with meals. Notes: on dialysis 3 x weekly 8. L eg weakness Notes: OOB as toerates; is OOB 3 x weekly when goes to dialysis 9. D ebility Continue Rocaltrol Capsule, 0.5 MCG, 1 capsule, Orally, Three times a Week M,,; C ontinue Nephro-Zack Tablet, 0.8 MG, 1 tablet, Orally, Once a day, Notes to Pharmacist: 1 mg. 10. A trial fibrillation, unspecified type Continue Eliquis Tablet, 2.5 MG, 1 tab(s), orally, 2 times a day; C ontinue Amiodarone HCl Tablet, 200 MG, TAKE 1 TABLET TWICE DAILY. 11. S leep difficulties Continue traZODone HCl Tablet, 50 MG, 1 tablet at bedtime, Orally, Once a day. 12. S acral decubitus ulcer Continue Zinc Capsule, 220 (50 Zn) MG, 1 capsule, Orally, Once a day; C ontinue Calmoseptine Ointment, 0.44-20.6 %, as directed, Externally, qd. Notes: wound care provider continues to follow pt; using med honey with Magic but cream around the wound 13. G ERD (gastroesophageal reflux disease) Continue Pantoprazole Sodium Tablet Delayed Release, 40 MG, 1 tab(s), orally, once a day. ? 14. B ronchitis Start Ipratropium-Albuterol Solution, 0.5-2.5 (3) MG/3ML, 3 ml as needed, Inhalation, every 6 hrs-QID and q2h prn. Notes: will restart scheduled nebs * Follow Up: 2 Months,and prn * Images: Billing Information: * Visit Code: 24628 subs. level 4. * Procedure Codes: * Electronic signature of Vanita Jones APRN on 07/17/2025 at 07:53 AM EST Sign off status: Pending * Provider: CASEY Bradshaw Date: 0 10/03/2024 Generated for Areli berkowitz/Jessie/Donalditting on: 09/16/2024 07:53 AM EST History and Physical Notes * HPI (History of Present Illness) Category Sub-Category Detail Notes Category Not es HPI For routine [facility] Home visit; chart reviewed and patient examined; see ROS Examination Category Sub-Category Detail Notes Category Not es General Examination Heart: RRR Lungs: lungs sound more tang ar; few rhonchi posteriorly; does have good air movement Extremities: trace of bilateral l eg edema General Appearance: NAD, alert; lying on his left side watching TV Neurologic Exam: alert and oriented
--- OUTSIDE RECORDS SUMMARY | 2024-11-07 09:15 | XMS_ITS ---
Author Organization [facility] Address [address] [place] [id number] Care Team Providers Care Director Of Industrial Relations Name Role Phone Jeffrey Sun Primary Care Provider [phone] Caren Jones Unavailable [phone] Allergies No Known Allergies REASON FOR VISIT [facility] HOME VISIT Medications Medication SIG (Take, Route, Frequency, Duration) Notes Start Date End Date Status Ondansetron 4 MG 1 tablet on the tongue and allow to dissolve Orally q8h prn Active Loperamide HCl 2 MG 1 capsule as needed Orally Four times a day Active Acetaminophen 500 MG 2 tablet as needed Orally every 6 hrs prn Active Regular Diet - as directed CCHO; DARLENE; no beans, bananas, oranges Active Benzonatate 100 MG 2 capsule as needed orally q8h prn Active Mucinex DM 30-600 MG 1 tablet as needed Orally every 12 hrs Active Promethazine-DM 6.25-15 MG/5ML 5 mL as needed Orally every 6 hrs prn Active Anasept Antimicrobial 0.057 % as directed Externally qd-see wound care see wound Active Calamine-Zinc Oxide 8-8 % as directed Externally apply sacral tissue around wound Active Ipratropium-Albuterol 0.5-2.5 (3) MG/3ML 3 ml as needed Inhalation q2h prn Active Iron Sucrose 20 MG/ML 2.5ml Intravenous M,W,F at dialysis Active Vitamin B 12 500 MCG 2 tab(s) orally once a day Active Rocaltrol 0.5 MCG 1 capsule Orally Three times a Week M,W,F Active Nephro-Zack 0.8 MG 1 tablet Orally Once a day 1 mg Active traZODone HCl 50 MG 1 tablet at bedtime Orally Once a day Active Zinc 220 (50 Zn) MG 1 capsule Orally Once a day Active Calmoseptine 0.44-20.6 % as directed Externally qd Active Fluticasone Propionate 50 MCG/ACT 1 spray in each nostril Nasally Once a day Active Montelukast Sodium 10 MG 1 tablet Orally Once a day Active Cetirizine HCl 10 MG 1 tab(s) orally once a day Active Eliquis 2.5 MG 1 tab(s) orally 2 times a day Active Amiodarone HCl 200 MG TAKE 1 TABLET TWICE DAILY Active Pantoprazole Sodium 40 MG 1 tab(s) orally once a day Active Atorvastatin Calcium 80 MG 1 tab(s) orally once a day Active Oxygen - 2L/min continuous per nasal cannula as directed supplemental prn Active Methoxy PEG-Epoetin Beta 75 MCG/0.3ML 3 ml Injection q 14 days at dialysis Active Calcium Acetate (Phos Binder) 667 MG 1 tablet with meals Orally Three times a day with meals Active Pro-Stat - 30 ml Orally bid Ac tive Vital Signs Blood pressure systolic 106 mm Hg 11/07/19 25 Blood pressure diastolic 74 mm Hg 025 Heart Rate 64 /min 11/07/2024 Respiratory Rate 20 /min 11/07/2024 Weight 242.6 lbs 11/07/2024 Encounters Encounter Location Date Provider Diagnosis [address] [place], [place] [id number] 11/07/2024 Caren Jones Cough R05.9 ; Type 2 diabetes mellitus without complication E11.9 ; Hyperlipidemia, unspecified hyperlipidemia type E78.5 ; Anemia, unspecified type D64.9 ; Atherosclerosis of [place] coronary artery without angina pectoris, unspecified whether [place] or transplanted heart I25.10 ; Chronic obstructive [...] Treatment Notes Treatment Clinical Notes Section Notes 11/07/2024 Cough (ICD-10 - R05.9) cough is better and to continue with duoneb prn 11/07/2024 Type 2 diabetes mellitus without complication (ICD-10 - E11.9) CCHO diet 11/07/2024 Hyperlipidemia, unspecified hyperlipidemia type (ICD-10 - E78.5) 11/07/2024 Anemia, unspecified type (ICD-10 - D64.9) 11/07/2024 Atherosclerosis of [place] coronary artery without angina pectoris, unspecified whether [place] or transplanted heart (ICD-10 - I25.10) 11/07/2024 Chronic obstructive pulmonary disease, unspecified COPD type (ICD-10 - J44.9) 11/07/2024 Allergic rhinitis, unspecified seasonality, unspecified trigger (ICD-10 - J30.9) 11/07/2024 End stage renal disease (ICD-10 - N18.6) on dialysis 3 x weekly 11/07/2024 Leg weakness (ICD-10 - R29.898) OOB as toerates; is OOB 3 x weekly when goes to dialysis 11/07/2024 Debility (ICD-10 - R53.81) 11/07/2024 CKD (chronic kidney disease) stage 5, GFR less than 15 ml/min (ICD-10 - N18.5) 11/07/2024 Atrial fibrillation, unspecified type (ICD-10 - I48.91) 11/07/2024 Former smoker (ICD-10 - Z87.891) 11/07/2024 Sleep difficulties (ICD-10 - G47.9) 11/07/2024 Sacral decubitus ulcer (ICD-10 - L89.159) wound care provider continues to follow pt; using med honey with Magic but cream around the wound 11/07/2024 GERD (gastroesophageal reflux disease) (ICD-10 - K21.9) Plan Of Treatment Medication Medication Name Sig Start Date Stop Date Notes Ondansetron 4 MG 1 tablet on the tongue and allow to dissolve Orally q8h prn Loperamide HCl 2 MG 1 capsule as needed Orally Four times a day Acetaminophen 500 MG 2 tablet as needed Orally every 6 hrs prn Regular Diet - as directed CCHO; DARLENE ; no beans, bananas, oranges Benzonatate 100 MG 2 capsule as needed orally q8h prn Mucinex DM 30-600 MG 1 tablet as needed Orally every 12 hrs Promethazine-DM 6.25-15 MG/5ML 5 mL as needed Orally every 6 hrs prn Ipratropium-Albuterol 0.5-2.5 (3) MG/3ML 3 ml as needed Inhalation q2h prn Iron Sucrose 20 MG/ML 2.5ml Intravenous M,W,F at dialysis Vitamin B 12 500 MCG 2 tab(s) orally onc e a day Rocaltrol 0.5 MCG 1 capsule Orally Three times a Week M,W,F Nephro-Zack 0.8 MG 1 tablet Orally Once a day 1 mg traZODone HCl 50 MG 1 tablet at bedtime Orally Once a day Zinc 220 (50 Zn) MG 1 capsule Orally Once a day Calmoseptine 0.44-20.6 % as directed Externally qd Fluticasone Propionate 50 MCG/ACT 1 spray in each nostril Nasally Once a day Montelukast Sodium 10 MG 1 tablet Orally Once a day Cetirizine HCl 10 MG 1 tab(s) orally onc e a day Eliquis 2.5 MG 1 tab(s) orally 2 times a day Amiodarone HCl 200 MG TAKE 1 TABLET TWIC E DAILY Pantoprazole Sodium 40 MG 1 tab(s) orally once a day Atorvastatin Calcium 80 MG 1 tab(s) orally once a day Oxygen - 2L/min continuous per nasal cannula as directed supplemental prn Methoxy PEG-Epoetin Beta 75 MCG/0.3ML 3 ml Injection q 14 days at dialysis Calcium Acetate (Phos Binder) 667 MG 1 tablet with meals Orally Three times a day with meals Treatment Notes Assessment Notes Cough cough is better and to continue with duoneb prn Type 2 diabetes mellitus wit hout complication CCHO diet End stage renal disease on dialysis 3 x weekly Leg weakness OOB as toerates; is OOB 3 x weekly when goes to dialysis Sacral decubitus ulcer wound care provid er continues to follow pt; using med honey with Magic but cream around the wound Next Appt Details Follow Up: 2 Months,and prn, Reason: Progress Notes * PEGGY FUENTES:1950 (74 yo M)Acc No.[id number]:11/07/2024 Progress Notes Patient: ALEXA URIOSTEGUI Provider: CASEY Bradshaw :1950 A ge:73 Y S ex:Male Date:11/07/2024 Address:[address], [place], [id number] Pcp:Jeffrey Sun Subjective: * Chief Complaints: * [address] [facility] HOME VISIT. * HPI: H PI: For routine [facility] visit; chart reviewed and patient examined; see ROS. * ROS: R ESPIRATORY: no S hortness of breath. n o C hest pain. C ough y es, c ough is better. C ARDIOLOGY: no C hest pain. n o L eg edema. n o S hortness of breath. D ERMATOLOGY: wound n ursing state that sacral wound is healing. ? G ASTROENTEROLOGY: Positive for e ating as usual. n o V omiting. D iarrhea y es, p eriodically. n o C onstipation. M USCULOSKELETAL: Positive for u sually does not get OOB except to go to dialysis. * Medical History: H ypertension, Type 2 Diabetes, Hypercholestrolemia, Hypertriglyceridemia, Anemia, Cataract, Colon Polyps, Atrial Fibrilation, 2018, Sleep Apnea , Proteinuria, Stage 4 Chronic Kidney Disease, stage 4 as of 2019, [facility], Covid with Pneumonia, s/p [facility] 2 months and SNF 5 months, 09/28/2020, ESKD with dialysis 3 times weekly. * Surgical History: K idney Stone Removal- [facility] 2006, Prostate- [facility] 2010, Heart Cath & ECHO 04/2017. * Hospitalization/Major Diagno stic Procedure: C ovid-19- [facility] 2020, Respiratory Failure- and [facility] 2020, Stage 4 Chronic Kidney Disease, GFR [...] . Alcohol: No. * Medications: T aking Mucinex DM 30-600 MG Tablet Extended Release 12 Hour 1 tablet as needed Orally every 12 hrs , Taking Promethazine-DM 6.25-15 MG/5ML Syrup 5 mL as needed Orally every 6 hrs prn , Taking Anasept Antimicrobial 0.057 % Gel as directed Externally qd-see wound care , Notes to Pharmacist: see wound, Taking Calamine-Zinc Oxide 8-8 % Lotion as directed Externally apply sacral tissue around wound , Taking Methoxy PEG-Epoetin Beta 75 MCG/0.3ML Solution Prefilled Syringe 3 ml Injection q 14 days at dialysis , Taking Calcium Acetate (Phos Binder) 667 MG Tablet 2 tablet with meals orally two times a day ac , Taking Eliquis 2.5 MG Tablet 1 tab(s) [...] Ointment as directed Externally qd , Taking Ipratropium-Albuterol 0.5-2.5 (3) MG/3ML Solution 3 ml as needed Inhalation q2h prn , Taking Iron Sucrose 20 MG/ML Solution 2.5ml Intravenous M,W,F at dialysis , Taking Vitamin B 12 500 MCG Tablet 2 tab(s) orally once a day , Taking Rocaltrol 0.5 MCG Capsule 1 capsule Orally Three times a Week ,W, , Taking Nephro-Zack 0.8 MG Tablet 1 tablet Orally Once a day , Notes to Pharmacist: 1 mg, Taking traZODone HCl 100 MG Tablet 1 tablet at bedtime Orally Once a day , Taking Pro-Stat - Liquid 30 ml Orally bid , Taking Regular Diet - - as directed , Notes to Pharmacist: CCHO; DARLENE; no beans, bananas, oranges, Taking Ondansetron 4 MG Tablet Disintegrating 1 tablet on the tongue and allow to dissolve Orally q8h prn , Taking Benzonatate 100 MG Capsule 2 capsule as needed orally q8h prn , Taking Acetaminophen 500 MG Tablet 2 tablet as needed Orally every 6 hrs prn , Taking Loperamide HCl 2 MG Capsule 1 capsule as needed Orally Four times a day , Discontinued Robitussin Peak Cold Multi-Sym 5-10-100 MG/5ML Liquid 10 mL as needed Orally every 4 hrs prn , Medication List reviewed and reconciled with the patient * Allergies: N .K.D.A. Objective: * Vitals: W t:242.6, Temp:97.6, BP:106/74, HR:64, O2 Sat:96%, Nurse:reviewwed/recorded by [facility], RR:20. * Examination: G eneral Examination: General Appearance: NAD, alert; lying on his left side watching TV. H eart: RRR. L ungs: p osteriorly some few scattered rhonchi with good air movement and no wheezing or cough. N eurologic Exam: alert and oriented. E xtremities: no leg edema today. Assessment: * Assessment: 1. C ough - R05.9 (Primary) 2 . T ype 2 diabetes mellitus without complication - E11.9 3 . H yperlipidemia, unspecified hyperlipidemia type - E78.5 ? 4 . A nemia, unspecified type - D64.9 5 . A therosclerosis of [place] coronary artery without angina pectoris, unspecified whether [place] or transplanted heart - I25.10? 6. C hronic obstructive pulmonary disease, unspecified COPD type - J44.9 & #160; 7 . A llergic rhinitis, unspecified seasonality, unspecified trigger - J30.9 ? 8 . E nd stage renal disease - N18.6 9 . L eg weakness - R29.898? 10. D ebility - R53.81 1 1. C KD (chronic kidney disease) stage 5, GFR less than 15 ml/min - N18.5 1 2. A trial fibrillation, unspecified type - I48.91 1 3. F ormer smoker - Z87.891 1 4. S leep difficulties - G47.9 1 5. S acral decubitus ulcer - L89.159 1 6. G ERD (gastroesophageal reflux disease) - K21.9 Plan: * Treatment: 2. T ype 2 diabetes mellitus without complication [facility] 3. H yperlipidemia, unspecified hyperlipidemia type [...] 1 capsule, Orally, Three times a Week M,W,; C ontinue Nephro-Zack Tablet, 0.8 MG, 1 [...] tab(s), orally, once a day. ? 14. O thers Continue Ondansetron Tablet Disintegrating, 4 MG, 1 tablet on the tongue and allow to dissolve, Orally, q8h prn; C ontinue Loperamide HCl Capsule, 2 MG, 1 capsule as needed, Orally, Four times a day; C ontinue Acetaminophen Tablet, 500 MG, 2 tablet as needed, Orally, every 6 hrs prn; C ontinue Regular Diet -, -, as directed, Notes to Pharmacist: CCHO; DARLENE; no beans, bananas, oranges.? * Follow Up: 2 Months,and prn * Images: Billing Information: * Visit Code: 44563 subs. level 4. * Procedure Codes: * Electronic signature of Vanita Jones APRN on 07/17/2025 at 07:56 AM EST Sign off status: Pending * Provider: CASEY Bradshaw Date: 0 11/07/2024 Generated for Areli berkowitz/Jessie/Pablo on: 09/16/2024 07:56 AM EST History and Physical Notes * HPI (History of Present Illness) Category Sub-Category Detail Notes Category Not es HPI For routine [facility] Home visit; chart reviewed and patient examined; see ROS Examination Category Sub-Category Detail Notes Category Not es General Examination Heart: RRR Lungs: posteriorly some few scattered rhonchi with good air movement and no wheezing or cough Extremities: no leg edema today General Appearance: NAD, alert; lying on his left side watching TV Neurologic Exam: alert and oriented
--- OUTSIDE RECORDS SUMMARY | 2024-12-26 09:15 | XMS_ITS ---
Author Organization [facility] Address [address] [place] [id number] Care Team Providers Care Television News Producer Name Role Phone Jeffrey Sun Primary Care Provider Caren Jones Unavailable [phone] Allergies No Known Allergies REASON FOR VISIT [facility] HOME VISIT Medications Medication SIG (Take, Route, Frequency, Duration) Notes Start Date End Date Status Fluticasone Propionate 50 MCG/ACT 1 spray in each nostril Nasally Once a day Active Montelukast Sodium 10 MG 1 tablet Orally Once a day Active Cetirizine HCl 10 MG 1 tab(s) orally once a day Active Zinc 220 (50 Zn) MG 1 capsule Orally Once a day Active Calmoseptine 0.44-20.6 % as directed Externally qd Active Amiodarone HCl 200 MG TAKE 1 TABLET TWICE DAILY Active Pantoprazole Sodium 40 MG 1 tab(s) orally once a day Active Atorvastatin Calcium 80 MG 1 tab(s) orally once a day Active Oxygen - 2L/min continuous per nasal cannula as directed supplemental prn Active Eliquis 2.5 MG 1 tab(s) orally 2 times a day Active Anasept Antimicrobial 0.057 % as directed Externally qd-see wound care see wound Not-Taking Methoxy PEG-Epoetin Beta 75 MCG/0.3ML 3 ml Injection q 14 days at dialysis Active Calcium Acetate (Phos Binder) 667 MG 1 tablet with meals Orally Three times a day with meals Active [place] Oil (Otic) - bid left ear Otic bid x 7 days and prn 12/29/2024 Active Ciprofloxacin HCl 0.2 % 0.25 ml into right ear Otic every 12 hrs; Duration: 7 day(s) 12/29/2024 Active Benzonatate 100 MG 2 capsule as needed orally q8h prn Active traZODone HCl 100 MG 1 tablet at bedtime Orally Once a day Active Ipratropium-Albuter ol 0.5-2.5 (3) MG/3ML 3 ml as needed Inhalation q2h prn Not-Taking Pro-Stat - 30 ml Orally bid Ac tive Calamine-Zinc Oxide 8-8 % as directed Externally apply sacral tissue around wound Active Promethazine-DM 6.25-15 MG/5ML 5 mL as needed Orally every 6 hrs prn Active Mucinex DM 30-600 MG 1 tablet as needed Orally every 12 hrs Active Acetaminophen 500 MG 2 tablet as needed Orally every 6 hrs prn Active Loperamide HCl 2 MG 1 capsule as needed Orally Four times a day Active Regular Diet - as directed CCHO; DARLENE; no beans, bananas, oranges Active Rocaltrol 0.5 MCG 1 capsule Orally Three times a Week M,W,F Active Nephro-Zack 0.8 MG 1 tablet Orally Once a day 1 mg Active Iron Sucrose 20 MG/ML 2.5ml Intravenous M,W,F at dialysis Active Ondansetron 4 MG 1 tablet on the tongue and allow to dissolve Orally q8h prn Active Vitamin B 12 500 MCG 2 tab(s) orally once a day Active Problems Problem Type SNOMED Code ICD Code Onset Dates Problem Status W/U Status Risk Notes Problem Otitis externa (8518055) Otitis externa (H60.90) Active confirmed Problem Allergic rhinitis (83067385) Acute allergic rhinitis (J30.9) Active confirmed Vital Signs Blood pressure systolic 146 mm Hg 12/27/19 25 Blood pressure diastolic 81 mm Hg 025 Heart Rate 71 /min 12/26/2024 Respiratory Rate 18 /min 12/26/2024 Weight 233 lbs 12/26/2024 Encounters Encounter Location Date Provider Diagnosis [address] [place], [place] [id number] 12/26/2024 Caren Jones Cough R05.9 ; Type 2 diabetes mellitus without complication E11.9 ; Hyperlipidemia, unspecified hyperlipidemia type E78.5 ; Anemia, unspecified type D64.9 ; Atherosclerosis of [place] coronary artery without angina pectoris, unspecified whether [place] or transplanted heart I25.10 ; Chronic obstructive pulmonary disease, unspecified COPD type J44.9 ; End stage renal disease N18.6 ; Leg weakness R29.898 ; Debility R53.81 ; CKD (chronic kidney disease) stage 5, GFR less than 15 ml/min N18.5 ; Atrial fibrillation, unspecified type I48.91 ; Former smoker Z87.891 ; Sleep difficulties G47.9 ; Sacral decubitus ulcer L89.159 ; GERD (gastroesophageal reflux disease) K21.9 ; Otitis externa H60.90 ; Ear itching L29.9 and Acute allergic rhinitis J30.9 Assessments Encounter Date Diagnosis (ICD Code) Assessment Notes Treatment Notes Treatment Clinical Notes Section Notes 12/26/2024 Cough (ICD-10 - R05.9) 12/26/2024 Type 2 diabetes mellitus without complication (ICD-10 - E11.9) CCHO diet 12/26/2024 Hyperlipidemia, unspecified hyperlipidemia type (ICD-10 - E78.5) 12/26/2024 Anemia, unspecified type (ICD-10 - D64.9) labs completed as ordered by dialysis; last Hgb noted to be 8; stool for OB noted to be negative; receives IV Iron at dialysis,W,F 12/26/2024 Atherosclerosis of [place] coronary artery without angina pectoris, unspecified whether [place] or transplanted heart (ICD-10 - I25.10) 12/26/2024 Chronic obstructive pulmonary disease, unspecified COPD type (ICD-10 - J44.9) 12/26/2024 End stage renal disease (ICD-10 - N18.6) on dialysis 3 x weekly 12/26/2024 Leg weakness (ICD-10 - R29.898) OOB as toerates; is OOB 3 x weekly when goes to dialysis; he does not like to get OOB otherwise 12/26/2024 Debility (ICD-10 - R53.81) 12/26/2024 CKD (chronic kidney disease) stage 5, GFR less than 15 ml/min (ICD-10 - N18.5) dialysis M,W,F 12/26/2024 Atrial fibrillation, unspecified type (ICD-10 - I48.91) 12/26/2024 Former smoker (ICD-10 - Z87.891) 12/26/2024 Sleep difficulties (ICD-10 - G47.9) 12/26/2024 Sacral decubitus ulcer (ICD-10 - L89.159) wound care MD continues to follow pt with changes in care of the sacra wound currently as follows: cleanse wound bed with NS;apply skin graft to wound bed;cover with oil emulsin, apply foamand then cover with superabsorbent filler with silicone dressing weekly; not to remove graft or emulsion on graft;with soiling refpace foam and silicone dressing only 12/26/2024 GERD (gastroesophageal reflux disease) (ICD-10 - K21.9) 12/26/2024 Otitis externa (ICD-10 - H60.90) encouraged to NOT put anything else into the ear canal 12/26/2024 Ear itching (ICD-10 - L29.9) encourage pt not to put anything else into the ear canal 12/26/2024 Acute allergic rhinitis (ICD-10 - J30.9) 12/26/2024 Other DNR; need lab results from dialysis Plan Of Treatment Medication Medication Name Sig Start Date Stop Date Notes Fluticasone Propionate 50 MCG/ACT 1 spray in each nostril Nasally Once a day Montelukast Sodium 10 MG 1 tablet Orally Once a day Cetirizine HCl 10 MG 1 tab(s) orally onc e a day Zinc 220 (50 Zn) MG 1 capsule Orally Onc e a day Calmoseptine 0.44-20.6 % as directed Ext ernally qd Amiodarone HCl 200 MG TAKE 1 TABLET TWIC E DAILY Pantoprazole Sodium 40 MG 1 tab(s) orall y once a day Atorvastatin Calcium 80 MG 1 tab(s) orally once a day Oxygen - 2L/min continuous pe r nasal cannula as directed supplemental prn Eliquis 2.5 MG 1 tab(s) orally 2 times a day Methoxy PEG-Epoetin Beta 75 MCG/0.3ML 3 ml Injection q 14 days at dialysis Calcium Acetate (Phos Binder) 667 MG 1 tablet with meals Orally Three times a day with meals [place] Oil (Otic) - bid left ear Otic bi d x 7 days and prn 12/29/2024 Ciprofloxacin HCl 0.2 % 0.25 ml into rig ht ear Otic every 12 hrs; Duration: 7 day(s) 12/29/2024 Benzonatate 100 MG 2 capsule as needed orally q8h prn traZODone HCl 100 MG 1 tablet at bedtime Orally Once a day Promethazine-DM 6.25-15 MG/5ML 5 mL as needed Orally every 6 hrs prn Mucinex DM 30-600 MG 1 tablet as needed Orally every 12 hrs Rocaltrol 0.5 MCG 1 capsule Orally Thr ee times a Week M,W,F Nephro-Zack 0.8 MG 1 tablet Orally Once a day 1 mg Iron Sucrose 20 MG/ML 2.5ml Intravenous M,W,F at dialysis Vitamin B 12 500 MCG 2 tab(s) orally onc e a day Treatment Notes Assessment Notes Type 2 diabetes mellitus wit hout complication CCHO diet Anemia, unspecified type labs completed as ordered by dialysis; last Hgb noted to be 8; stool for OB noted to be negative; receives IV Iron at dialysis,W,F End stage renal disease on dialysis 3 x weekly Leg weakness OOB as toerates; is OOB 3 x weekly when goes to dialysis; he does not like to get OOB otherwise CKD (chronic kidney disease) stage 5, GFR less than 15 ml/min dialysis M,W,F Sacral decubitus ulcer wound care MD continues to follow pt with changes in care of the sacra wound currently as follows: cleanse wound bed with NS;apply skin graft to wound bed;cover with oil emulsin, apply foamand then cover with superabsorbent filler with silicone dressing weekly; not to remove graft or emulsion on graft;with soiling refpace foam and silicone dressing only Otitis externa encouraged to NOT pu t anything else into the ear canal Ear itching encourage pt not to put anything else into the ear canal Other DNR; need lab result s from dialysis Next Appt Details Follow Up: 2 Months,and prn, Reason: Progress Notes * ALEXA FUENTESDOB:1950 (74 yo M)Acc No.[id number]:12/26/2024 Progress Notes Patient: ALEXA URIOSTEGUI Provider: CASEY Bradshaw :1950 A ge:74 Y S ex:Male Date:12/26/2024 Address:[address] [place] [address] [address] [facility] [id number] Pcp:Jeffrey T Eagar Subjective: * Chief Complaints: * 1 . [facility]. * HPI: H PI: For routine [facility] visit; chart reviewed and patient examined; see ROS; patient states he is doing OK and that BP is stil low. * ROS: A LLERGY: Positive for e ar fullness and itchy. R ESPIRATORY: no S hortness of breath. n o C hest pain. n o?Chest congestion. C ough y es, s ometimes. C ARDIOLOGY: no C hest pain. n o L eg edema. n o S hortness of breath. G ASTROENTEROLOGY: Positive for e ating as usual;, stool incontinence; loose stools. n o V omiting. U ROLOGY: Positive for D ialysis Wed, Wed, Wednesday's. * Medical History: H ypertension, Type 2 Diabetes, Hypercholestrolemia, Hypertriglyceridemia, Anemia, Cataract, Colon Polyps, Atrial Fibrilation, 2019, Sleep Apnea , Proteinuria, Stage 4 Chronic Kidney Disease, stage 4 as of 2019, Nephrology, Covid with Pneumonia, s/p [facility] 2 months and SNF 5 months, 09/28/2020, ESKD with dialysis 3 times weekly. * Surgical History: K idney Stone Removal- [facility] 2006, Prostate- [facility] 2010, Heart Cath & ECHO 04/2017. * Hospitalization/Major Diagno stic Procedure: C ovid-19- [facility] 2020, Respiratory Failure- and [facility] 2020, Stage 4 Chronic Kidney Disease, GFR [...] . Alcohol: No. * Medications: T aking Methoxy PEG-Epoetin Beta 75 MCG/0.3ML Solution Prefilled Syringe 3 ml Injection q 14 days at dialysis , Taking Calcium Acetate (Phos Binder) 667 MG Tablet 1 tablet with meals Orally Three times a day with meals , Taking Eliquis 2.5 MG Tablet 1 [...] Ointment as directed Externally qd , Taking Iron Sucrose 20 MG/ML Solution [...] tablet at bedtime Orally Once a day at HS , Taking Mucinex DM 30-600 MG Tablet Extended Release 12 Hour 1 tablet as needed Orally every 12 hrs , Taking Promethazine-DM 6.25-15 MG/5ML Syrup 5 mL as needed Orally every 6 hrs prn , Taking Benzonatate 100 MG Capsule 2 capsule as needed orally q8h prn , Taking Ondansetron 4 MG Tablet Disintegrating 1 tablet on the tongue and allow to dissolve Orally q8h prn , Taking Loperamide HCl 2 MG Capsule 1 capsule as needed Orally Four times a day , Taking Acetaminophen 500 MG Tablet 2 tablet as needed Orally every 6 hrs prn , Taking Regular Diet - - as directed , Notes to Pharmacist: CCHO; DARLENE; no beans, bananas, oranges, Taking Calamine-Zinc Oxide 8-8 % Lotion as directed Externally apply sacral tissue around wound , Taking Pro- Stat - Liquid 30 ml Orally bid , Not-Taking Ipratropium-Albuterol 0.5-2.5 (3) MG/3ML Solution 3 ml as needed Inhalation q2h prn , Not-Taking Anasept Antimicrobial 0.057 % Gel as directed Externally qd-see wound care , Notes to Pharmacist: see wound, Medication List reviewed and reconciled with the patient * Allergies: N .K.D.A. Objective: * Vitals: W t:233, Temp:98.2, BP: 95/58, 125/63, 128/60, 160/81,146/81, HR:71, O2 Sat:92%, Nurse:reviewed/recorded by [facility], [place], RR:18. * P ast Orders: L ab:H-Occult Blood, Stool (Order Date - 11/28/2024) (Collection Date & Time - 11/28/2024 05:45 PM) Result: Negative Value Reference Range OB Negative Negative - * Examination: G eneral Examination: General Appearance: NAD, alert; lying in bed; PT working with pt on upper body. H EENT: Sclera and conjunctiva clear; right ear with canal marielena; TM's appear WNL; left ear canal appears WNL. H eart: RRR. L ungs: clear to auscultation bilaterally. A bdomen: bowel sounds present, soft and nontender. N eurologic Exam: alert and oriented. S kin: sacral dressing in place. E xtremities: no leg edema. Assessment: * Assessment: 1. C ough - R05.9 (Primary) 2 . T ype 2 diabetes mellitus without complication - E11.9 3 . H yperlipidemia, unspecified hyperlipidemia type - E78.5 ? 4 . A nemia, unspecified type - D64.9 5 . A therosclerosis of [place] coronary artery without angina pectoris, unspecified whether [place] or transplanted heart - I25.10? 6. C hronic obstructive pulmonary disease, unspecified COPD type - J44.9 ? 7 . E nd stage renal disease - N18.6 8 . L eg weakness - R29.898 9. D ebility - R53.81 1 0. C KD (chronic kidney disease) stage 5, GFR less than 15 ml/min - N18.5 1 1. A trial fibrillation, unspecified type - I48.91 1 2. F ormer smoker - Z87.891 1 3. S leep difficulties - G47.9 1 4. S acral decubitus ulcer - L89.159 1 5. G ERD (gastroesophageal reflux disease) - K21.9 1 6. O titis externa - H60.90? Specify :right ear 1 7. E ar itching - L29.9 S pecify :left ear 1 8. A cute allergic rhinitis - J30.9 Plan: * Treatment: 2. A nemia, unspecified type Notes: labs completed as ordered by dialysis; last Hgb noted to be 8; stool for OB noted to be negative; receives IV Iron at dialysis,W,F 3. E nd stage renal disease Notes: on dialysis 3 x weekly 4. L eg weakness Notes: OOB as toerates; is OOB 3 x weekly when goes to dialysis; he does not like to get OOB otherwise 5. C KD (chronic kidney disease) stage 5, GFR less than 15 ml/min Notes: dialysis M,W,F 6. S acral decubitus ulcer Notes: wound care MD continues to follow pt with changes in care of the sacra wound currently as follows: cleanse wound bed with NS;apply skin graft to wound bed;cover with oil emulsin, apply foamand then cover with superabsorbent filler with silicone dressing weekly; not to remove graft or emulsion on graft;with soiling refpace foam and silicone dressing only 7. O titis externa Notes: encouraged to NOT put anything else into the ear canal 8. E ar itching Notes: encourage pt not to put anything else into the ear canal 9. O thers Continue Methoxy PEG-Epoetin Beta Solution Prefilled Syringe, 75 MCG/0.3ML, 3 ml, Injection, q 14 days at dialysis; C ontinue Calcium Acetate (Phos Binder) Tablet, 667 MG, 1 tablet with meals, Orally, Three times a day with meals; C ontinue Eliquis Tablet, 2.5 MG, 1 tab(s), orally, 2 times a day; C ontinue Amiodarone HCl Tablet, 200 MG, TAKE 1 TABLET TWICE DAILY; C ontinue Pantoprazole Sodium Tablet Delayed Release, 40 MG, 1 tab(s), orally, once a day; C ontinue Atorvastatin Calcium Tablet, 80 MG, 1 tab(s), orally, once a day; C ontinue Oxygen -, -, 2L/min continuous, per nasal cannula, as directed, Notes to Pharmacist: supplemental prn; C ontinue Fluticasone Propionate Suspension, 50 MCG/ACT, 1 spray in each nostril, Nasally, Once a day; C ontinue Montelukast Sodium Tablet, 10 MG, 1 tablet, Orally, Once a day; C ontinue Cetirizine HCl Tablet, 10 MG, 1 tab(s), orally, once a day; C ontinue Zinc Capsule, 220 (50 Zn) MG, 1 capsule, Orally, Once a day; C ontinue Calmoseptine Ointment, 0.44-20.6 %, as directed, Externally, qd; C ontinue Iron Sucrose Solution, 20 MG/ML, 2.5ml, Intravenous, M,W,F at dialysis; C ontinue Vitamin B 12 Tablet, 500 MCG, 2 tab(s), orally, once a day; C ontinue Rocaltrol Capsule, 0.5 MCG, 1 capsule, Orally, Three times a Week M,W,F; C ontinue Nephro-Zack Tablet, 0.8 MG, 1 tablet, Orally, Once a day, Notes to Pharmacist: 1 mg; C ontinue Mucinex DM Tablet Extended Release 12 Hour, 30-600 MG, 1 tablet as needed, Orally, every 12 hrs; C ontinue Promethazine-DM Syrup, 6.25-15 MG/5ML, 5 mL as needed, Orally, every 6 hrs prn; C ontinue Benzonatate Capsule, 100 MG, 2 capsule as needed, orally, q8h prn; C ontinue traZODone HCl Tablet, 100 MG, 1 tablet at bedtime, Orally, Once a day; Start [place] Oil (Otic) Oil, -, bid left ear, Otic, bid x 7 days and prn; S tart Ciprofloxacin HCl Solution, 0.2 %, 0.25 ml into right ear, Otic, every 12 hrs, 7 day(s), 3.5 ml. Notes: DNR; need lab results from dialysis * Follow Up: 2 Months,and prn * Images: Billing Information: * Visit Code: 43223 subs. level 4. * Procedure Codes: * Electronic signature of Vanita padillareji Jones APRN on 07/17/2025 at 07:55 AM EST Sign off status: Pending * Provider: CASEY Bradshaw Date: 0 12/26/2024 Generated for Printi ng/Faninig/eTransmitting on: 1 09/16/2024 07:55 AM EST History and Physical Notes * HPI (History of Present Illness) Category Sub-Category Detail Notes Category Not es HPI For routine [facility] Home visit; chart reviewed and patient examined; see ROS; patient states he is doing OK and that BP is stil low Examination Category Sub-Category Detail Notes Category Not es General Examination HEENT: Sclera and c onjunctiva clear; right ear with canal marielena; TM's appear WNL; left ear canal appears WNL Heart: RRR Lungs: clear to auscultatio n bilaterally Abdomen: bowel sounds present , soft and nontender Extremities: no leg edema General Appearance: NAD, alert; lying in bed; PT working with pt on upper body Skin: sacral dressing in p lace Neurologic Exam: alert and oriented
--- OUTSIDE RECORDS SUMMARY | 2025-02-20 09:00 | XMS_ITS ---
Author Organization [facility] Address [address] [place] [id number] Care Team Providers Care Training And Development Rep Name Role Phone Jeffrey Sun Primary Care Provider Caren Jones Unavailable [phone] Allergies No Known Allergies REASON FOR VISIT [facility] HOME VISIT, HISTORY AND PHYSICAL Medications Medication SIG (Take, Route, Frequency, Duration) Notes Start Date End Date Status Calamine-Zinc Oxide 8-8 % as directed Externally apply sacral tissue around wound Active Pro-Stat - 30 ml Orally bid Ac tive [place] Oil (Otic) - bid left ear Otic bid x 7 days and prn 12/29/2024 Not-Taking Regular Diet - as directed CCHO; DARLENE; no beans, bananas, oranges Active Benzonatate 100 MG 2 capsule as needed orally q8h prn Active traZODone HCl 100 MG 1 tablet at bedtime Orally Once a day Active Acetaminophen 500 MG 2 tablet as needed Orally every 6 hrs prn Active Ondansetron 4 MG 1 tablet on the tongue and allow to dissolve Orally q8h prn Active Loperamide HCl 2 MG 1 capsule as needed Orally Four times a day Active Mucinex DM 30-600 MG 1 tablet as needed Orally every 12 hrs Active Promethazine-DM 6.25-15 MG/5ML 5 mL as needed Orally every 6 hrs prn Active Nephro-Zack 0.8 MG 1 tablet Orally Once a day 1 mg Active Rocaltrol 0.5 MCG 1 capsule Orally Three times a Week M,W,F Active Vitamin B 12 500 MCG 2 tab(s) orally once a day Active Montelukast Sodium 10 MG 1 tablet Orally Once a day Active Cetirizine HCl 10 MG 1 tab(s) orally once a day Active Zinc 220 (50 Zn) MG 1 capsule Orally Once a day Active Iron Sucrose 20 MG/ML 2.5ml Intravenous M,W,F at dialysis Active Calmoseptine 0.44-20.6 % as directed Externally qd Active Fluticasone Propionate 50 MCG/ACT 1 spray in each nostril Nasally Once a day Active Atorvastatin Calcium 80 MG 1 tab(s) orally once a day Active Oxygen - 2L/min continuous per nasal cannula as directed supplemental prn Active Amiodarone HCl 200 MG TAKE [...] tab(s) orally 2 times a day Active Vital Signs Blood pressure systolic 148 mm Hg 02/21/20 25 Blood pressure diastolic 64 mm Hg 025 Heart Rate 64 /min 02/20/2025 Respiratory Rate 20 /min 02/20/2025 Weight 245.5 lbs 02/20/2025 Encounters Encounter Location Date Provider Diagnosis [address] [place], [place] [id number] 02/20/2025 Caren Jones Type 2 diabetes eugene itus without complication E11.9 ; Chronic renal impairment, stage 3 (moderate) N18.3 ; Atherosclerosis of [place] coronary artery without angina pectoris, unspecified whether [place] or transplanted heart I25.10 ; Cough R05.9 ; Hyperlipidemia, unspecified hyperlipidemia type E78.5 ; Anemia, unspecified type D64.9 ; Chronic obstructive pulmonary disease, unspecified COPD type J44.9 ; End stage renal disease N18.6 ; Leg weakness R29.898 ; Debility R53.81 ; CKD (chronic kidney disease) stage 5, GFR less than 15 ml/min N18.5 ; Atrial fibrillation, unspecified type I48.91 ; Former smoker Z87.891 ; Sleep difficulties G47.9 ; Sacral decubitus ulcer L89.159 ; GERD (gastroesophageal reflux disease) K21.9 and Acute allergic rhinitis J30.9 Assessments Encounter Date Diagnosis (ICD Code) Assessment Notes Treatment Notes Treatment Clinical Notes Section Notes 02/20/2025 Type 2 diabetes mellitus without complication (ICD-10 - E11.9) 02/20/2025 Chronic renal impairment, stage 3 (moderate) (ICD-10 - N18.3) 02/20/2025 Atherosclerosis of [place] coronary artery without angina pectoris, unspecified whether [place] or transplanted heart (ICD-10 - I25.10) 02/20/2025 Cough (ICD-10 - R05.9) 02/20/2025 Hyperlipidemia, unspecified hyperlipidemia type (ICD-10 - E78.5) 02/20/2025 Anemia, unspecified type (ICD-10 - D64.9) labs completed as ordered by dialysis; last Hgb noted to be 8; stool for OB noted to be negative; receives IV Iron at dialysis,W,F 02/20/2025 Chronic obstructive pulmonary disease, unspecified COPD type (ICD-10 - J44.9) 02/20/2025 End stage renal disease (ICD-10 - N18.6) on dialysis 3 x weekly 02/20/2025 Leg weakness (ICD-10 - R29.898) OOB as toerates; is OOB 3 x weekly when goes to dialysis; he does not like to get OOB otherwise; he states he cannot stand and lift is used for transfers 02/20/2025 Debility (ICD-10 - R53.81) 02/20/2025 CKD (chronic kidney disease) stage 5, GFR less than 15 ml/min (ICD-10 - N18.5) dialysis M,W,F 02/20/2025 Atrial fibrillation, unspecified type (ICD-10 - I48.91) 02/20/2025 Former smoker (ICD-10 - Z87.891) 02/20/2025 Sleep difficulties (ICD-10 - G47.9) 02/20/2025 Sacral decubitus ulcer (ICD-10 - L89.159) wound care MD continues to follow pt with changes in care of the sacra wound currently as follows: cleanse wound bed with NS;apply skin graft to wound bed;cover with oil emulsin, apply foamand then cover with superabsorbent filler with silicone dressing weekly; not to remove graft or emulsion on graft;with soiling refpace foam and silicone dressing only 02/20/2025 GERD (gastroesophageal reflux disease) (ICD-10 - K21.9) 02/20/2025 Acute allergic rhinitis (ICD-10 - J30.9) Plan Of Treatment Medication Medication Name Sig Start Date Stop Date Notes Calamine-Zinc Oxide 8-8 % as directed Externally apply sacral tissue around wound Pro-Stat - 30 ml Orally bid Regular Diet - as directed CCHO; DARLENE ; no beans, bananas, oranges Benzonatate 100 MG 2 capsule as needed orally q8h prn traZODone HCl 100 MG 1 tablet at bedtime Orally Once a day Acetaminophen 500 MG 2 tablet as needed Orally every 6 hrs prn Ondansetron 4 MG 1 tablet on the tongue and allow to dissolve Orally q8h prn Loperamide HCl 2 MG 1 capsule as needed Orally Four times a day Mucinex DM 30-600 MG 1 tablet as needed Orally every 12 hrs Promethazine-DM 6.25-15 MG/5ML 5 mL as needed Orally every 6 hrs prn Nephro-Zack 0.8 MG 1 tablet Orally Once a day 1 mg Rocaltrol 0.5 MCG 1 capsule Orally Three times a Week M,W,F Vitamin B 12 500 MCG 2 tab(s) orally onc e a day Montelukast Sodium 10 MG 1 tablet Orally Once a day Cetirizine HCl 10 MG 1 tab(s) orally onc e a day Zinc 220 (50 Zn) MG 1 capsule Orally Once a day Iron Sucrose 20 MG/ML 2.5ml Intravenous M,W,F at dialysis Calmoseptine 0.44-20.6 % as directed Externally qd Fluticasone Propionate 50 MCG/ACT 1 spray in each nostril Nasally Once a day Atorvastatin Calcium 80 MG 1 tab(s) orally once a day Oxygen - 2L/min continuous per nasal cannula as directed supplemental prn Amiodarone HCl 200 MG TAKE 1 TABLET TWIC E DAILY Pantoprazole Sodium 40 MG 1 tab(s) orally once a day Methoxy PEG-Epoetin Beta 75 MCG/0.3ML 3 ml Injection q 14 days at dialysis Calcium Acetate (Phos Binder) 667 MG 1 tablet with meals Orally Three times a day with meals Eliquis 2.5 MG 1 tab(s) orally 2 times a day Treatment Notes Assessment Notes Anemia, unspecified type labs completed as ordered by dialysis; last Hgb noted to be 8; stool for OB noted to be negative; receives IV Iron at dialysis,W,F End stage renal disease on dialysis 3 x weekly Leg weakness OOB as toerates; is OOB 3 x weekly when goes to dialysis; he does not like to get OOB otherwise; he states he cannot stand and lift is used for transfers CKD (chronic kidney disease) stage 5, GFR [...] soiling refpace foam and silicone dressing only Next Appt Details Follow Up: 2 Months,and prn, Reason: Progress Notes * ALEXA FUENTESDOB:1950 (74 yo M)Acc No.[id number]:02/20/2025 Progress Notes Patient: ALEXA URIOSTEGUI Provider: CASEY Bradshaw :1950 A ge:74 Y S ex:Male Date:02/20/2025 Address:[address] [place] [address] [address], [facility], [id number] Pcp:Jeffrey Sun Subjective: * Chief Complaints: * [address] [facility] HOME VISIT. 2. HISTORY AND PHYSICAL. * HPI: H PI: For routine Assisted visit; chart reviewed and patient examined; see ROS . * ROS: R ESPIRATORY: no S hortness of breath. n o C hest pain. n o?Chest congestion. n o C ough. C ARDIOLOGY: no C hest pain. n o S hortness of breath. ? D ERMATOLOGY: wound n ursing state that sacral wound is healing; continue to be followed by wound care team. G ASTROENTEROLOGY: Positive for e ating as usual. n o N ausea. n o?Vomiting. n o D iarrhea. M USCULOSKELETAL: Positive for r equests PT for stretching exercises; gets OOB for dialysis 3 days weekly. * Medical History: H ypertension, Type 2 Diabetes, Hypercholestrolemia, Hypertriglyceridemia, Anemia, Cataract, Colon Polyps, Atrial Fibrilation, 2019, Sleep Apnea , Proteinuria, Stage 4 Chronic Kidney Disease, stage 4 as of 2019, Nephrology, Covid with Pneumonia, s/p [facility] 2 months and SNF 5 months, 09/28/2020, ESKD with dialysis 3 times weekly. * Surgical History: K idney Stone Removal- [facility] 2006, Prostate- [facility] 2010, Heart Cath & ECHO 04/2017. * Hospitalization/Major Diagno stic Procedure: C ovid-19- [facility] 2020, Respiratory Failure- and [facility] 2020, Stage 4 Chronic Kidney Disease, GFR [...] , Notes to Pharmacist: 1 mg, Taking Mucinex DM 30-600 MG Tablet Extended Release 12 Hour 1 tablet as needed Orally every 12 hrs , Taking Promethazine-DM 6.25-15 MG/5ML Syrup 5 mL as needed Orally every 6 hrs prn , Taking Benzonatate 100 MG Capsule 2 capsule as needed orally q8h prn , Taking traZODone HCl 100 MG Tablet 1 tablet at bedtime Orally Once a day , Taking Ondansetron 4 MG Tablet Disintegrating [...] Liquid 30 ml Orally bid , Not-Taking [place]incon Oil (Otic) - Oil bid left ear Otic bid x 7 days and prn , Discontinued Ciprofloxacin HCl 0.2 % Solution 0.25 ml into right ear Otic every 12 hrs , Discontinued Ipratropium-Albuterol 0.5-2.5 (3) MG/3ML Solution 3 ml as needed Inhalation q2h prn , Discontinued Anasept Antimicrobial 0.057 % Gel as directed Externally qd-see wound care , Notes to Pharmacist: see wound * Allergies: N .K.D.A. Objective: * Vitals: W t: 245.5, Temp: 98.2, BP: 148/64, HR: 64, O2 Sat: 95%, Nurse: reviewed/recorded by monique, RR: 20. * Examination: G eneral Examination: General Appearance: N AD, alert, pleasant; lying in bed on his left side watching TV. H eart: R RR. L ungs: C TAB A&P. A bdomen: b owel sounds present, soft and nontender. Assessment: * Assessment: 1. C ough - R05.9 (Primary) 2 . T ype 2 diabetes mellitus without complication - E11.9 3 . C hronic renal impairment, stage 3 (moderate) - N18.3 4 . A therosclerosis of [place] coronary artery without angina pectoris, unspecified whether [place] or transplanted heart - I25.10 5 . H yperlipidemia, unspecified hyperlipidemia type - E78.5 6 . A nemia, unspecified type - D64.9 7 .?Chronic obstructive pulmonary disease, unspecified COPD type - J44.9 8 . E nd stage renal disease - N18.6 9 . L eg weakness - R29.898 1 0.?Debility - R53.81 1 1. C KD (chronic kidney disease) stage 5, GFR less than 15 ml/min - N18.5 1 2. A trial fibrillation, unspecified type - I48.91 & #160; 1 3. F ormer smoker - Z87.891 1 4. S leep difficulties - G47.9 ? 1 5. S acral decubitus ulcer - L89.159 1 6. G ERD (gastroesophageal reflux disease) - K21.9 1 7. A cute allergic rhinitis - J30.9 Plan: * Treatment: 2. C hronic renal impairment, stage 3 (moderate) Continue Methoxy PEG-Epoetin Beta Solution Prefilled Syringe, 75 MCG/0.3ML, 3 ml, Injection, q 14 days at dialysis; C ontinue Calcium Acetate (Phos Binder) Tablet, 667 MG, 1 tablet with meals, Orally, Three times a day with meals. 3. H yperlipidemia, unspecified hyperlipidemia type Continue Atorvastatin Calcium Tablet, 80 MG, 1 tab(s), orally, once a day. 4. A nemia, unspecified type Continue Iron Sucrose Solution, 20 MG/ML, 2.5ml, Intravenous, M,W,F at dialysis; C ontinue Vitamin B 12 Tablet, 500 MCG, 2 tab(s), orally, once a day. Notes: labs completed as ordered by dialysis; last Hgb noted to be 8; stool for OB noted to be negative; receives IV Iron at dialysis,W,F 5. C hronic obstructive pulmonary disease, unspecified COPD type Continue Oxygen -, -, 2L/min continuous, per nasal cannula, as directed, Notes to Pharmacist: supplemental prn. 6. E nd stage renal disease Continue Nephro-Zack Tablet, 0.8 MG, 1 tablet, Orally, Once a day, Notes to Pharmacist: 1 mg; C ontinue Rocaltrol Capsule, 0.5 MCG, 1 capsule, Orally, Three times a Week M,W,F. Notes: on dialysis 3 x weekly 7. L eg weakness Notes: OOB as toerates; is OOB 3 x weekly when goes to dialysis; he does not like to get OOB otherwise; he states he cannot stand and lift is used for transfers 8. C KD (chronic kidney disease) stage 5, GFR less than 15 ml/min Notes: dialysis M,W,F 9. A trial fibrillation, unspecified type Continue [...] %, as directed, Externally, qd; C ontinue Calamine-Zinc Oxide Lotion, 8-8 %, as directed, Externally, apply sacral tissue around wound; C ontinue Pro-Stat Liquid, -, 30 ml, Orally, bid. Notes: wound care MD continues to follow pt with changes in care of the sacra wound currently as follows: cleanse wound bed with NS;apply skin graft to wound bed;cover with oil emulsin, apply foamand then cover with superabsorbent filler with silicone dressing weekly; not to remove graft or emulsion on graft;with soiling refpace foam and silicone dressing only 12. G ERD (gastroesophageal reflux disease) Continue Pantoprazole Sodium Tablet Delayed Release, 40 MG, 1 tab(s), orally, once a day. ? 13. A cute allergic rhinitis Continue Fluticasone Propionate Suspension, 50 MCG/ACT, 1 spray in each nostril, Nasally, Once a day; C ontinue Montelukast Sodium Tablet, 10 MG, 1 tablet, Orally, Once a day; C ontinue Cetirizine HCl Tablet, 10 MG, 1 tab(s), orally, once a day. 14. O thers Continue Ondansetron Tablet Disintegrating, [...] * Images: Billing Information: * Visit Code: 71724 subs. level 4. * Procedure Codes: * Electronic signature of Vanita Jones APRN on 07/17/2025 at 07:55 AM EST Sign off status: Pending * Provider: CASEY Bradshaw Date: 0 02/20/2025 Generated for Areli berkowitz/Jessie/Pablo on: 09/16/2024 07:55 AM EST History and Physical Notes * Examination Category Sub-Category Detail Notes Category Not es General Examination Heart: RRR Lungs: CTAB A&P Abdomen: bowel sounds present , soft and nontender General Appearance: NAD, alert, pleasant ; lying in bed on his left side watching TV
--- OUTSIDE RECORDS SUMMARY | 2025-05-08 11:15 | XMS_ITS ---
Author Organization [facility] Address [address] [place] [id number] Care Team Providers Care Community Health Program Coordinator Name Role Phone Jeffrey Sun Primary Care Provider Caren Jones Unavailable [phone] Allergies No Known Allergies REASON FOR VISIT [facility] VISIT Medications Medication SIG (Take, Route, Frequency, Duration) Notes Start Date End Date Status Acetaminophen 500 MG 2 tablet as needed Orally every 6 hrs prn Active Regular Diet - as directed CCHO; DARLENE; no beans, bananas, oranges Active Calcium Acetate (Phos Binder) 667 MG 1 tablet with meals Orally Three times a day with meals Active Ondansetron 4 MG 1 tablet on the tongue and allow to dissolve Orally q8h prn Active Loperamide HCl 2 MG 1 capsule as needed Orally Four times a day Active Cough Drops 5 MG 1 lozenge as needed Mouth/Throat every 3 hrs q1h prn Active Midodrine HCl 10 MG 1 tablet Orally three times a week to take to dialysis to be given prn low BP As needed to be given prn at dialysis for low BP Active Methoxy PEG-Epoetin Beta 75 MCG/0.3ML 3ml Injection at dialysis Active Calamine-Zinc Oxide 8-8 % as directed Externally apply sacral tissue around wound Active Pro-Stat - 30 ml Orally bid Ac tive Benzonatate 100 MG 2 capsule as needed orally q8h prn Active traZODone HCl 100 MG 1 tablet at bedtime Orally Once a day Active Mucinex DM 30-600 MG 1 tablet as needed Orally every 12 hrs Active Promethazine-DM 6.25-15 MG/5ML 5 mL as needed Orally every 6 hrs prn Active Rocaltrol 0.5 MCG 1 capsule Orally Three times a Week ,, Active Calmoseptine 0.44-20.6 % as directed Externally qd Active Iron Sucrose 20 MG/ML 2.5ml Intravenous ,, at dialysis Active Zinc 220 (50 Zn) MG 1 capsule Orally Once a day Active Vitamin B 12 500 MCG 2 tab(s) orally once a day Active Nephro-Zack 0.8 MG 1 tablet Orally Once a day 1 mg Active Fluticasone Propionate 50 MCG/ACT 1 spray in each nostril Nasally Once a day Active Montelukast Sodium 10 MG 1 tablet Orally Once a day Active Oxygen - 2L/min continuous per nasal cannula as directed supplemental prn Active Cetirizine HCl 10 MG 1 tab(s) orally once a day Active Atorvastatin Calcium 80 MG 1 tab(s) orally once a day Active Pantoprazole Sodium 40 MG 1 tab(s) orally once a day Active Eliquis 2.5 MG 1 tab(s) orally 2 times a day Active Amiodarone HCl 200 MG TAKE 1 TABLET TWICE DAILY Active Vital Signs Blood pressure systolic 152 mm Hg 05/08/20 25 Blood pressure diastolic 77 mm Hg 025 Heart Rate 68 /min 05/08/2025 Respiratory Rate 20 /min 05/08/2025 Weight 251.8 lbs 05/08/2025 Encounters Encounter Location Date Provider Diagnosis [address] [place], [place] [id number] 05/08/2025 Caren Jones Type 2 diabetes eugene itus without complication E11.9 ; Atherosclerosis of [place] coronary artery without angina pectoris, unspecified whether [place] or transplanted heart I25.10 ; Cough R05.9 [...] Treatment Notes Treatment Clinical Notes Section Notes 05/08/2025 Type 2 diabetes mellitus without complication (ICD-10 - E11.9) 05/08/2025 Atherosclerosis of [place] coronary artery without angina pectoris, unspecified whether [place] or transplanted heart (ICD-10 - I25.10) 05/08/2025 Cough (ICD-10 - R05.9) 05/08/2025 Hyperlipidemia, unspecified hyperlipidemia type (ICD-10 - E78.5) 05/08/2025 Anemia, unspecified type (ICD-10 - D64.9) labs completed as ordered by dialysis; last Hgb noted to be 8; stool for OB noted to be negative; receives IV Iron at dialysis,W,F 05/08/2025 Chronic obstructive pulmonary disease, unspecified COPD type (ICD-10 - J44.9) 05/08/2025 End stage renal disease (ICD-10 - N18.6) on dialysis 3 x weekly 05/08/2025 Leg weakness (ICD-10 - R29.898) OOB as toerates; is OOB 3 x weekly when goes to dialysis; he does not like to get OOB otherwise; he states he cannot stand and lift is used for transfers 05/08/2025 Debility (ICD-10 - R53.81) 05/08/2025 CKD (chronic kidney disease) stage 5, GFR less than 15 ml/min (ICD-10 - N18.5) dialysis M,W,F 05/08/2025 Atrial fibrillation, unspecified type (ICD-10 - I48.91) 05/08/2025 Former smoker (ICD-10 - Z87.891) 05/08/2025 Sleep difficulties (ICD-10 - G47.9) 05/08/2025 Sacral decubitus ulcer (ICD-10 - L89.159) wound care MD continues to follow pt with changes in care of the sacra wound currently as follows: cleanse wound bed with NS; collagen sheet to wound bed and then cover withsuper absorbent fiber with silicone dressing daily. 05/08/2025 GERD (gastroesophageal reflux disease) (ICD-10 - K21.9) 05/08/2025 Acute allergic rhinitis (ICD-10 - J30.9) Plan Of Treatment Medication Medication Name Sig Start Date Stop Date Notes Acetaminophen 500 MG 2 tablet as needed Orally every 6 hrs prn Regular Diet - as directed CCHO; DARLENE ; no beans, bananas, oranges Calcium Acetate (Phos Binder) 667 MG 1 tablet with meals Orally Three times a day with meals Ondansetron 4 MG 1 tablet on the tongue and allow to dissolve Orally q8h prn Loperamide HCl 2 MG 1 capsule as needed Orally Four times a day Midodrine HCl 10 MG 1 tablet Orally three times a week to take to dialysis to be given prn low BP to be given prn at dialysis for low BP Methoxy PEG-Epoetin Beta 75 MCG/0.3ML 3ml Injection at dialysis Calamine-Zinc Oxide 8-8 % as directed Externally apply sacral tissue around wound Pro-Stat - 30 ml Orally bid Benzonatate 100 MG 2 capsule as needed orally q8h prn traZODone HCl 100 MG 1 tablet at bedtime Orally Once a day Mucinex DM 30-600 MG 1 tablet as needed Orally every 12 hrs Promethazine-DM 6.25-15 MG/5ML 5 mL as needed Orally every 6 hrs prn Rocaltrol 0.5 MCG 1 capsule Orally Three times a Week M,W,F Calmoseptine 0.44-20.6 % as directed Externally qd Iron Sucrose 20 MG/ML 2.5ml Intravenous M,W,F at dialysis Zinc 220 (50 Zn) MG 1 capsule Orally Once a day Vitamin B 12 500 MCG 2 tab(s) orally onc e a day Nephro-Zack 0.8 MG 1 tablet Orally Once a day 1 mg Fluticasone Propionate 50 MCG/ACT 1 spray in each nostril Nasally Once a day Montelukast Sodium 10 MG 1 tablet Orally Once a day Oxygen - 2L/min continuous per nasal cannula as directed supplemental prn Cetirizine HCl 10 MG 1 tab(s) orally onc e a day Atorvastatin Calcium 80 MG 1 tab(s) orally once a day Pantoprazole Sodium 40 MG 1 tab(s) orally once a day Eliquis 2.5 MG 1 tab(s) orally 2 times a day Amiodarone HCl 200 MG TAKE 1 TABLET TWIC E DAILY Treatment Notes Assessment Notes Anemia, unspecified type [...] currently as follows: cleanse wound bed with NS; collagen sheet to wound bed and then cover withsuper absorbent fiber with silicone dressing daily. Next Appt Details Follow Up: 2 Months,and prn, Reason: Progress Notes * ALEXA FUENTESDOB:1950 (74 yo M)Acc No.[id number]:05/08/2025 Progress Notes Patient: ALEXA URIOSTEGUI Provider: CASEY Bradshaw :1950 A ge:74 Y S ex:Male Date:05/08/2025 Address:[address] [place] [address] [address], [facility], [id number] Pcp:Jeffrey Sun Subjective: * Chief Complaints: * [address] [facility] VISIT. * HPI: H PI: For routine Long Term visit; chart reviewed and patient examined; see ROS; he continues with dialysis 3 times weekly. * ROS: R ESPIRATORY: no S hortness of breath. n o C hest pain. n o?Chest congestion. n o C ough. C ARDIOLOGY: Positive for h e states his BP is low sometimes around dialysis Tx. n o C hest pain. L eg edema y es, p eriodically. n o S hortness of breath. D ERMATOLOGY: wound l ower back wound is slowly improving; wound care providers does Tx regularly. * Medical History: H ypertension, Type 2 [...] [facility] 2006, Prostate- [facility] 2010, Heart Cath & ECHO 04/2017. * Hospitalization/Major Diagno stic Procedure: C ovid-19- [facility] 2020, Respiratory Failure- and [place] [facility] 2020, Stage 4 Chronic Kidney [...] . Alcohol: No. * Medications: T aking Cough Drops 5 MG Lozenge 1 lozenge as needed Mouth/Throat every 3 hrs , Notes to Pharmacist: q1h prn, Taking Midodrine HCl 10 MG Tablet 1 tablet Orally three times a week to take to dialysis to be given prn low BP As needed, Notes to Pharmacist: to be given prn at dialysis for low BP, Taking Methoxy PEG-Epoetin Beta 75 MCG/0.3ML Solution Prefilled Syringe 3ml Injection at dialysis , Taking Calcium Acetate (Phos [...] Solution 2.5ml Intravenous M,W,F at dialysis , Notes to Pharmacist: to be given at dialysis, Taking Vitamin B 12 500 MCG Tablet 1 tablet orally once a day , Taking Nephro-Zack 0.8 MG Tablet 1 tablet Orally Once a day , Notes to Pharmacist: 1 mg, Taking Rocaltrol 0.5 MCG Capsule 1 capsule Orally Three times a Week M,W,F , Notes to Pharmacist: to be given at dialysis, Taking Mucinex DM 30-600 MG Tablet Extended [...] apply sacral tissue around wound , Taking Pro-Stat - Liquid 30 ml Orally bid , Discontinued [place] Oil (Otic) - Oil bid left ear Otic bid x 7 days and prn * Allergies: N .K.D.A. Objective: * Vitals: W t: 251.8, Temp: 97, BP: 152/77, HR: 68, O2 Sat: 96%, Nurse: reviewed/recorded by [facility], [place], operated by [facility], RR: 20. * Examination: G eneral Examination: General Appearance: N AD, alert, pleasant; lying on his side watching Western favorites on TV. H eart: R RR. L ungs: C TAB A&P; no rhonchi or wheezing!!!. A bdomen: b owel sounds present, soft and nontender. N eurologic Exam: alert and oriented. E xtremities: t race leg edema bilaterally. Assessment: * Assessment: 1. C ough - R05.9 (Primary) 2 . T ype 2 diabetes mellitus without complication - E11.9 3 . A therosclerosis of [place] coronary artery without angina pectoris, unspecified whether [place] or transplanted heart - I25.10 4 . H yperlipidemia, unspecified hyperlipidemia type - E78.5 5 . A nemia, unspecified type - D64.9? 6. C hronic obstructive pulmonary disease, unspecified [...] (gastroesophageal reflux disease) - K21.9 1 6. A cute allergic rhinitis - J30.9 Plan: * Treatment: 2. T ype 2 diabetes mellitus without complication Continue Regular Diet -, -, as directed, Notes to Pharmacist: CCHO; DARLENE; no beans, bananas, oranges. 3. H yperlipidemia, unspecified hyperlipidemia type Continue [...] Three times a Week M,W,F; C ontinue Midodrine HCl Tablet, 10 MG, 1 tablet, Orally, three times a week to take to dialysis to be given prn low BP As needed, Notes to Pharmacist: to be given prn at dialysis for low BP; C ontinue Methoxy PEG-Epoetin Beta Solution Prefilled Syringe, 75 MCG/0.3ML, 3ml, Injection, at dialysis; C ontinue Calcium Acetate (Phos [...] currently as follows: cleanse wound bed with NS; collagen sheet to wound bed and then cover withsuper absorbent fiber with silicone dressing daily. 12. G ERD (gastroesophageal reflux disease) Continue [...] tablet as needed, Orally, every 6 hrs prn. ? * Follow Up: 2 Months,and prn * Images: Billing Information: * Visit Code: 72730 subs. level 4. * Procedure Codes: * Electronic signature of Vanita Jones APRN on 07/17/2025 at 07:57 AM EST Sign off status: Pending * Provider: CASEY Bradshaw Date: 0 05/08/2025 Generated for Areli berkowitz/Jessie/Pablo on: 1 09/16/2024 07:57 AM EST History and Physical Notes * Examination Category Sub-Category Detail Notes Category Not es General Examination Heart: RRR Lungs: CTAB A&P; no rhonchi or wheezing!!! Abdomen: bowel sounds present , soft and nontender Extremities: trace leg edema bila terally General Appearance: NAD, alert, pleasant ; lying on his side watching Western favorites on TV Neurologic Exam: alert and oriented
--- OUTSIDE RECORDS SUMMARY | 2025-06-06 19:26 | XMS_ITS | Encounter Summary ---
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 Name Role Phone Jeffrey Sun MD Primary Care Provider + [phone] Reason for Referral * Diagnostic Medical (Routine) - Pending Review Specialty Diagnoses / Procedures Referred By Contact Referred To Contact Gastroenterology Diagnoses Choledocholithiasis Kishore Foote MD [address] [facility] [address] [place] [address] Phone: tel: fax: [facility] GASTROENTEROLOGY [address] [facility] [address] [place] [address] Phone: tel: fax: Referral ID Status Reason Start Date Expiration Date Visits Requested Visits Authorized [id number] Pending Review Specialty Services Required 06/08/2025 09/07/2026 1 1 Scheduling Instructions Schedule repeat ERCP in 6-8 weeks * Consultation (Routine) - Closed Specialty Diagnoses / Procedures Referred By Neil stephens Referred To Contact Neurology Diagnoses Occipital stroke Procedures OR OFFICE/OUTPATIENT NEW MODERATE MDM 45 MINUTES Soto Ochoa PA-C [address] [facility] [address] [place] [address] Phone: tel: fax: Denisha Lake APRN [address] [facility] [address] [place] [address] Phone: tel: fax: Referral ID Status Reason Start Date Expiration Date V isits Requested Visits Authorized [id number] Closed Specialty Services Required 06/07/2025 09/06/2026 1 1 Scheduling Instructions 4 to 8-week stroke clinic follow-up please * MRI/CAT/PET Scan (Routine) - Pending Review Specialty Diagnoses / Procedures Referred By Contac t Referred To Contact Procedures CT Outside Abd/Pelvis Films, Radiant Outside Referral ID Status Reason Start Date Expiration Date V isits Requested Visits Authorized [id number] Pending Review 06/06/2025 09/05/2026 1 1 * MRI/CAT/PET Scan (Routine) - Pending Review Specialty Diagnoses / Procedures Referred By Contac t Referred To Contact Procedures CT Outside Neck Films, Radiant Outside Referral ID Status Reason Start Date Expiration Date V isits Requested Visits Authorized [id number] Pending Review 06/06/2025 09/05/2026 1 1 * MRI/CAT/PET Scan (Routine) - Pending Review Specialty Diagnoses / Procedures Referred By Contac t Referred To Contact Procedures CT Outside Head Films, Radiant Outside Referral ID Status Reason Start Date Expiration Date V isits Requested Visits Authorized [id number] Pending Review 06/06/2025 09/05/2026 1 1 Reason for Visit * Auth/Cert Specialty Diagnoses / Procedures Referred By Contac t Referred To Contact Diagnoses Cerebrovascular Accident (stroke) Referral ID Status Reason Start Date Expiration Date Visits Re quested Visits Authorized [id number] 1 1 Encounter Details Date Type Department Care Team (Late st Contact Info) Description 06/06/2025 8:26 PM EDT - 06/14/2025 3:33 PM EDT Hospital Encounter [facility] 3F [address] [place] [address] Suly Vargas, DO [address] [place] [address] Rolan Muro MD [address] [facility] [address] [place] [address] Krystal Herzog MD [address] [facility] [address] [place] [address] Ivonne Ralph MD [address] [facility] [address]th [place] [address] Bell Carmen MD [address] [facility] [address] [place] [address] Occipital stroke (Primary Dx); Choledocholithiasi s; Cholecystitis Discharge Disposition: Intermediate Care Social History Tobacco Use Types Packs/Day Years Used Date Smoking Tobacco: Never Smokeless Tobacco: Never Tobacco Cessation:Counseling Given: No Alcohol Use Standard Drinks/Week Comments Never 0 (1 standard drink = 0.6 oz pur e alcohol) [facility] Utilities Answer Date Recorded In the past 12 months has [employer], gas, oil, or water [employer] threatened to shut off services in your home? No 06/07/2025 AUDIT-C Answer Date Recorded Q1: How often do you have a drink containing alcohol? Never 06/07/2025 Q2: How many drinks containi ng alcohol do you have on a typical day when you are drinking? Patient does not drink Q3: How often do you have si x or more drinks on one occasion? Never 06/07/2025 Exercise Vital Sign Answer Date Recorde d On average, how many days pe r week do you engage in moderate to strenuous exercise (like a brisk walk)? 0 days 06/07/2025 On average, how many minutes do you engage in exercise at this level? 0 min 06/07/2025 Hunger Vital Sign Answer Date Recorded Within the past 12 months, y ou worried that your food would run out before you got the money to buy more. Patient unable to answer 06/07/2025 Within the past 12 months, t he food you bought just didn't last and you didn't have money to get more. Patient unable to answer 06/07/2025 PRAPARE - Transportation Answer Date Re corded In the past 12 months, has l ack of transportation kept you from medical appointments or from getting medications? Patient unable to answer 06/07/2025 In the past 12 months, has l ack of transportation kept you from meetings, work, or from getting things needed for daily living? Patient unable to answer 06/07/2025 Abuse Screen Answer Date Recorded Feels Unsafe at Home or Work/School no 06/07/2025 Feels Threatened by Someone no 05/15 Does Anyone Try to Keep You From Having Contact with Others or Doing Things Outside Your Home? no 06/07/2025 Physical Signs of Abuse Present no 06/07/2025 Housing Stability Answer Date Recorded Current Living Arrangements residential facility 06/07/2025 Potentially Unsafe Housing Conditions none 06/07/2025 Family and Community Support Answer Ortiz e Recorded If for any reason you need h elp with day-to-day activities such as bathing, preparing meals, shopping, managing finances, etc., do you get the help you need? I get all the help I need 06/07/2025 Lonely or Isolated Not on file 06/07/2025 Employment Answer Date Recorded Do you want help finding or keeping work or a job? Patient unable to answer 06/07/2025 Disabilities Answer Date Recorded Difficulty Concentrating, Remembering or Making Decisions yes 06/07/2025 Difficulty Managing Errands Independently yes 06/07/2025 Education Answer Date Recorded Do you want help with school or training? For example, starting or completing job training or getting a high school diploma, GED or equivalent No 06/07/2025 Preferred Language Cook Islander 06/07/2025 Sex and Gender Information Value Date Recorded Sex Assigned at Not on file Legal Sex Male 1:16 PM EDT Gender Identity Not on file Sexual Orientation Not on file documented as of this encounter Last Filed Vital Signs Vital Sign Reading Time Taken Comments Blood Pressure 155/71 06/14/2025 11:27 AM EDT Pulse 60 06/14/2025 11:27 AM EDT Temperature 36.8 C (98.3 F) 06/14/2025 11:27 AM EDT Respiratory Rate 17 06/14/2025 11:27 AM EDT Oxygen Saturation 97% 06/14/2025 11:27 AM EDT Inhaled Oxygen Concentration - - Weight 134 kg (295 lb) 06/11/2025 2:43 PM EDT Height 193 cm (6' 3.98 ) 06/11/2025 2:43 PM EDT Body Mass Index 35.92 06/11/2025 2:43 PM EDT documented in this encounter Functional Status * Question Answer Date of Assessment Author 1. Wish to be (Past 1 Month) No 6:16 AM EDT Linda Schafer RN 2. Non-Specific Active Suici dawit Thoughts (Past 1 Month) No 06/07/2025 6:16 AM EDT Alaina Schafer RN * Calculated C-SSRS Risk Score (Lifetime/Recent) Answer Date of Assessment Author No Risk Indicated 06/07/2025 6:16 AM EDT Linda Schafer RN * [place] Suicide Severity Rating Scale (Screener/Recent Self-Report) Question Answer Date of Assessment Author 6. Suicidal Behavior (Lifetime) No 6:16 AM EDT Linda Schafer RN documented as of this encounter Discharge Summaries * Tesha Coelho RN - 06/14/2025 1:30 PM EDT Images from the original note were not included. Alexa Fuentes (74 y.o. Male) Tesha CM [phone] Date of 1950 Social Security Number [id number] Address [place] [address] [address] [id number] [place] None Marital Status Admission Date 06/06/2025 Admission Type Urgent Admitting Provider Bell Carmen MD Attending Provider Bell Carmen MD Department, Room/Bed [facility] 3F, S325/1 Discharge Date Discharge Disposition Long Term Facility (DC - External) Discharge Destination Attending Provider: Bell Carmen MD Allergies: No Known Allergies Isolation: None Infection: MRSA (06/08/25) Code Status: No CPR Ht: 193 cm (75.98 ) Wt: 134 kg (295 lb) Admission Cmt: None Principal Problem: Occipital stroke [I63.9] Active Insurance as of 06/06/2025 Primary Coverage Payor Plan Insurance Group Employer/Plan Group MEDICARE MEDICARE A & B Payor Plan Address Payor Plan Phone Number Payor Plan Fax Number Effective Dates [address] 11/11/2013 - None Entered [place] [id number] Subscriber Name Subscriber Date Member ID ALEXA FUENTES 1950 [id number] Emergency Contacts Poly[employer] Com[employer]er (Rel.) Home Phone Work Phone Mobile Phone Teto FUENTES (Son) [phone] -- [phone] LesGabriel (Other) -- -- [phone] Discharge Summary Bell Carmen MD at 06/13/[address] [place] [address] Medicine Services DISCHARGE SUMMARY Patient Name: Alexa Fuentes : 1950 Date of Admission: 06/06/2025 Date of Discharge: 06/13/25 Length of Stay: 6 Primary Care Physician: Jeffrey Sun MD Consults Date and Time Order Name Status Description 06/08/2025 3:14 PM Inpatient Infectious Diseases Consult Completed 06/08/2025 2:37 PM Inpatient General Surgery Consult Completed 06/07/2025 4:37 AM Inpatient Palliative Care MD Consult Completed 06/06/2025 11:50 PM Inpatient Gastroenterology Consult Completed 06/06/2025 8:30 PM Inpatient Nephrology Consult Completed Hospital Course Presenting Problem: Occipital stroke [I63.9] Active Hospital Problems Diagnosis POA Occipital stroke [I63.9] Yes Choledocholithiasis [K80.50] Yes Acute respiratory failure with hypoxia [J96.01] Yes CAP (community acquired pneumonia) [J18.9] Yes ESRD (end stage renal disease) [N18.6] Yes Atrial fibrillation [I48.91] Yes Resolved Hospital Problems No resolved problems to display. Hospital Course: Alexa Fuentes is a 74-year-old male with end-stage renal disease on hemodialysis, atrial fibrillation, hypertension, hyperlipidemia, COPD, and a history of stroke, who was admitted for evaluation andmanagement of acute altered mental status, found to have an occipital stroke, sepsis secondary to St reptococcus pneumoniae bacteremia, choledocholithiasis with biliary obstruction, and acute hypoxic respiratory failure. 1. Occipital Stroke and Acute Encephalopathy He presented with acute altered mental status and unresponsiveness after hemodialysis, with imagingrevealing a late acute/subacute left occipital infarct and chronic infarcts in the bilateral cerebellum and left occipital lobe. He was not a candidate for thrombolytic therapy due to recent apixabanuse. MRI confirmed a tiny acute infarct in the left occipital lobe and questionable additional punctate infarct in the left centrum semiovale, with chronic microvascular changes and encephalomalacia.His encephalopathy was multifactorial, attributed to stroke, sepsis, hypoxia, and ESRD, and improved during hospitalization, with mental status returning to baseline. He was managed with antiplateletand anticoagulation therapy, with apixaban held mark- procedurally and later resumed at an increaseddose following multidisciplinary recommendations. Speech therapy identified moderate dysarthria andmild cognitive-linguistic disorder, with baseline cognitive impairment and new short- term memory deficits; he was recommended for continued therapy at a correction facility. 2. Sepsis, Community-Acquired Pneumonia, and Streptococcus pneumoniae Bacteremia He was found to have sepsis with leukocytosis, hypoxia, and altered mental status, with blood cultures from the outside hospital positive for Streptococcus pneumoniae in the setting of left lower lobe consolidation on imaging. He was treated with ceftriaxone and metronidazole, with metronidazole discontinued on 06/10. Infectious disease was consulted for management of bacteremia and recommended a transesophageal echocardiogram, which showed no evidence of endocarditis. He remained afebrile throughout the admission, and blood cultures after transfer remained negative. He developed left parotitis on 06/11, with CT showing left parotid inflammation without stone or abscess; daptomycin was initiated and later discontinued in favor of vancomycin with dialysis due to concern for MRSA. MRSA PCR from nares was positive, and vancomycin dosing was managed by pharmacy with goal trough 20-25 mcg/mL, with loading and maintenance doses scheduled to coincide with dialysis sessions. Parotid gland swelling and tenderness improved by 06/12. 3. Choledocholithiasis, Biliary Obstruction, and Surgical Management Imaging revealed choledocholithiasis with a 7 mm stone in the lower common bile duct, intra- and extrahepatic biliary ductal dilation, and cholelithiasis without cholecystitis. He underwent ERCP withstone extraction and stent placement on 06/08, followed by laparoscopic cholecystectomy on 06/09 without complications. Postoperatively, he had mild abdominal pain and bloating that resolved, and his diet was advanced as tolerated. Liver enzymes, initially markedly elevated, trended down post-intervention. Surgical wounds were clean, dry, and intact, and he was recommended to follow up with surgeryin 2 weeks after discharge. No antibiotics were needed at discharge from a surgical perspective. 4. Acute Hypoxic Respiratory Failure He required supplemental oxygen for hypoxia on admission, initially up to 3-4 L/min, attributed to pneumonia and fluid overload in the setting of ESRD. He did not require home oxygen prior to admission. His respiratory status improved with antibiotics, pulmonary toilet, and diuresis via dialysis. He reported no shortness of breath at discharge, and oxygen requirements were weaned as tolerated. 5. End-Stage Renal Disease on Hemodialysis He continued his scheduled hemodialysis sessions during hospitalization, with some sessions complicated by hypotension and poor catheter function requiring cathflo instillation. He remained on a renal diet with fluid restriction. Nephrology followed for ongoing management, and coordination was [facility]for outpatient [facility] at [facility]. 6. 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 Apixaban was held mark-procedurally for ERCP and cholecystectomy, then resumed and increased to 5 mg BID after multidisciplinary review. No episodes of rapid ventricular response or hemodynamic instability were docu mented. 7. Additional Hospital Course Issues - Left parotitis developed on 06/11, confirmed by CT, and was managed with antibiotics targeting MRSA; swelling and tenderness improved by 06/12. - He had a healing stage 4 pressure injury to the coccyx, present on admission, managed with wound care protocols. - He remained bedbound at baseline, dependent for most ADLs, and was recommended for discharge to [facility] for continued rehabilitation and care. - Code status was clarified during admission, with DNR/DNI and limited support orders in place at discharge. 8. Resolved Issues - Acute encephalopathy resolved prior to discharge, with return to baseline mental status. - Abdominal pain and postoperative symptoms improved, and he tolerated diet advancement. - Leukocytosis and transaminitis improved following source control and antimicrobial therapy. This summary reflects the major problems and interventions during the hospitalization, with ongoingneeds for dialysis, anticoagulation, wound care, and rehabilitation at the time of discharge. Discharge Follow Up Recommendations for labs/diagnostics: See Dr Guerrero in 2 weeks HD MWF 4 more doses of vancomycin with dialysis Procedure(s): CHOLECYSTECTOMY LAPAROSCOPIC Day of Discharge HPI: Patient tired after dialysis, no BM yet. Vital Signs: Temp: [97.8 ??F (36.6 ??C)-98.3 ??F (36.8 ??C)] 97.9 ??F (36.6 ??C) Heart Rate: [61-75] 71 Resp: [15-18] 18 BP: (148-189)/(65-113) 167/86 Physical Exam: Patient is alert and talkative in no distress at rest, tired pale Neck is without mass or JVD Heart is Reg wo murmur Lungs are clear wo wheeze or crackle Abd is soft without HSM or mass, not tender or distended MAEW Skin is without rash Neurologic exam in nonfocal Mood is appropriate Pertinent and/or Most Recent Results Results from last 7 days Lab Units 06/11/25 0810 06/10/25 1522 06/08/25 0848 06/07/25 0057 WBC 10*3/mm3 11.08* 11.79* 10.13 18.26* HEMOGLOBIN g/dL 8.5* 8.9* 8.6* 9.0* HEMATOCRIT % 27.2* 28.5* 27.7* 28.1* PLATELETS 10*3/mm3 206 179 195 120* SODIUM mmol/L 135* 134* 137 136 POTASSIUM mmol/L 5.5* 5.3* 5.1 5.0 CHLORIDE mmol/L 95* 94* 93* 93* CO2 mmol/L 22.9 21.2* 24.1 27.9 BUN mg/dL 66.9* 60.9* 80.3* 52.4* CREATININE mg/dL 7.96* 7.36* 8.13* 6.07* GLUCOSE mg/dL 98 120* 66 77 CALCIUM mg/dL 8.2* 8.7 8.8 9.0 Results from last 7 days Lab Units 06/11/25 0810 06/10/25 1522 06/08/25 0848 06/07/25 0057 BILIRUBIN mg/dL 0.4 0.4 0.6 0.9 ALK PHOS U/L 112 118* 111 102 ALT (SGPT) U/L 455* 558* 982* 652* AST (SGOT) U/L 168* 226* 730* 558* Results from last 7 days Lab Units 06/07/25 0057 CHOLESTEROL mg/dL 62 TRIGLYCERIDES mg/dL 58 HDL CHOL mg/dL 33* LDL CHOL mg/dL 15 Results from last 7 days Lab Units 06/07/25 0105 06/07/25 0057 TSH uIU/mL -- 0.534 HEMOGLOBIN A1C % 4.9 -- Brief Urine Lab Results None Blood Culture Date Value Ref Range Status 06/07/2025 No growth at 5 days Final 06/07/2025 No growth at 5 days Final Adult Transesophageal Echo 3D (JARED) W/ Cont If Necessary Per Protocol Addendum Date: 06/11/2025 Left ventricular ejection fraction appears to be 56 - 60%. No evidence of a left atrial appendage thrombus was present. A catheter is present in the right atrium. Severe mitral annular calcification is present. Mild to moderate mitral valve regurgitation is present. No significant mitral valve stenosis is present. There is moderate calcification of the aortic valve. Moderate aortic valve regurgitation is present. Moderate aortic valve stenosis is present. Mean gradient 24mmHg Moderate tricuspidvalve regurgitation is present. Estimated right ventricular systolic pressure from tricuspid regurgitation is moderately elevated (45-55 mmHg). There is moderate, (grade 3) plaque in the aortic arch p resent. Mild dilation of the aortic root is present. Aortic root measures 4.1 cm. There is moderate, (grade 3) plaque in the aortic arch present. No valvular vegetations noted. No echocardiographic evidence of endocarditis I supervised and directed an independent trained observer with the assistance of monitoring the patient's level of consciousness and physiological status throughout the procedure. Intraoperative service time of [address] Soft Tissue Neck Without Contrast Result Date: 06/11/2025 Impression: Impression: 1. Enlargement and fat stranding in and around the left parotid gland consistent with changes of parotiditis. No definite obstructing stone identified. 2. No cervical lymphadenopathy. 3. Changes of chronic sinusitis and left mastoiditis. 4. No significant change in left upper lobe airspace disease compatible with pneumonia. Electronically Signed: Jose Jesus MD 06/11/2025 7:44 AM EDT Workstation ID: [id number] FL ERCP pancreatic and biliary ducts Result Date: 06/08/2025 Impression: Impression: Fluoroscopy demonstrates filling of the bile ducts. Please see procedure report for full findings. Electronically Signed: Migue Mcfarlane MD 06/08/2025 3:48 PM EDT Workstation ID: [id number] MRI abdomen wo contrast mrcp Result Date: 06/07/2025 Impression: Impression: Choledocholithiasis with a 7 mm stone in the lower common bile duct. Intra and extrahepatic biliary ductal dilatation with common bile duct measuring 15 mm. Correlate with serum bilirubin and consider ERCP. Cholelithiasis without evidence of acute cholecystitis. Left lower lobe consolidation with trace left pleural effusion, suggestive of pneumonia. Chronic/ancillary findings as above. Electronically Signed: Preet Crowley MD 06/07/2025 10:26 AM EDT Workstation ID: [id number] MRI Brain Without Contrast Result Date: 06/07/2025 Impression: 1.Findings concerning for tiny acute infarct within the left occipital lobe (series 5, image 86). Questionable additional punctate cortical acute/subacute infarct within the left centrum semiovale (series 5, image 96). 2.Additional findings compatible with chronic microvascular ischemicchange and diffuse cortical atrophy. 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 3.Pansinus mucosal thickening and bilateral mastoid effusions. Electronically Signed:Vimal Lares MD 06/07/2025 10:22 AM EDT Workstation ID: [id number] Results for orders placed during the hospital encounter of 06/06/25 Adult Transesophageal Echo 3D (JARED) W/ Cont If Necessary Per Protocol 06/11/2025 3:04 PM Interpretation Summary Left ventricular ejection fraction appears to be 56 - 60%. No evidence of a left atrial appendage thrombus was present. A catheter is present in the right atrium. Severe mitral annular calcification is present. Mild to moderate mitral valve regurgitation is present. No significant mitral valve stenosis is present. There is moderate calcification of the aortic valve. Moderate aortic valve regurgitation is present. Moderate aortic valve stenosis is present. Mean gradient 24mmHg Moderate tricuspid valve regurgitation is present. Estimated right ventricular systolic pressure from tricuspid regurgitation is moderately elevated (45-55 mmHg). There is moderate, (grade 3) plaque in the aortic arch present. Mild dilation of the aortic root is present. Aortic root measures 4.1 cm. There is moderate, (grade3) plaque in the aortic arch present. No valvular vegetations noted. No echocardiographic evidence of endocarditis I supervised and directed an independent trained observer with the assistance of monitoring the patient's level of consciousness and physiological status throughout the procedure. Intraoperative service time of 20 minutes Results for orders placed during the hospital encounter of 06/06/25 Duplex Carotid Ultrasound CAR 06/07/2025 5:15 PM Interpretation Summary Right internal carotid artery demonstrates a less than 50% stenosis. Right vertebral artery was not visualized. Left internal carotid artery demonstrates a less than 50% stenosis. Antegrade left vertebral flow. I have personally reviewed the therapy plans: [x] PT/OT/ ST Therapy Plans Pending Labs Order Current Status Respiratory Panel PCR w/COVID-19(SARS-CoV-2) ZHANE/SALAZAR/MELY/PAD/COR/GELY In-House, [employer] Swab in UTM/VTM, 2 HR TAT - Swab, Nasopharynx Collected (06/11/25 1414) Discharge Details Discharge Medications ASK your doctor about these medications Instructions Start Date acetaminophen 500 MG tablet Commonly known as: TYLENOL 1,000 mg, Oral, 4 Times Daily PRN amiodarone 200 MG tablet Commonly known as: PACERONE 200 mg, Oral, 2 Times Daily apixaban 2.5 MG tablet tablet Commonly known as: ELIQUIS 2.5 mg, Oral, Every 12 Hours Scheduled atorvastatin 80 MG tablet Commonly known as: LIPITOR 80 mg, Oral, Nightly benzonatate 100 MG capsule Commonly known as: TESSALON 100 mg, Oral, 3 Times Daily PRN [place] 0.44-20.625 % ointment ointment Generic drug: menthol-zinc oxide 1 Application, Topical, Daily, Cleanse periwound/sacrum, with NS and apply ointment to periwound and cover with ABD calcium acetate 667 MG capsule capsule Commonly known as: PHOS BINDER) 667 mg, Oral, 3 Times Daily cetirizine 10 MG tablet Commonly known as: zyrTEC 10 mg, Oral, Nightly Cough Drops 5.8 MG lozenge Generic drug: Menthol 1 lozenge, Mouth/Throat, Every 4 Hours PRN fluticasone 27.5 MCG/SPRAY nasal spray Commonly known as: VERAMYST 2 sprays, Nasal, Nightly guaiFENesin 600 MG 12 hr tablet Commonly known as: MUCINEX 600 mg, Oral, 2 Times Daily, 30-600mg 1 tablet twice daily between [id number] loperamide 2 MG capsule Commonly known as: IMODIUM 2 mg, Oral, 4 Times Daily PRN midodrine 5 MG tablet Commonly known as: PROAMATINE 10 mg, Oral, 3 Times Weekly, Mon, Wed, Sat between [id number] montelukast 10 MG tablet Commonly known as: SINGULAIR 10 mg, Oral, Nightly ondansetron 4 MG tablet Commonly known as: ZOFRAN 4 mg, Oral, 3 Times Daily PRN pantoprazole 40 MG EC tablet Commonly known as: PROTONIX 40 mg, Oral, Daily promethazine-dextromethorphan 6.25-15 MG/5ML syrup Commonly known as: PROMETHAZINE-DM 5 mL, Oral, 4 Times Daily PRN ProSource No Carb liquid 30 mL, Oral, Daily CHRISTINE-CLAUDE PO 1 tablet, Oral, Daily traZODone 100 MG tablet Commonly known as: DESYREL 100 mg, Oral, Nightly vitamin B-12 1000 MCG tablet Commonly known as: CYANOCOBALAMIN 1,000 mcg, Oral, Daily Zinc Sulfate 220 (50 Zn) MG tablet 1 tablet, Oral, Daily Discharge Disposition: Discharge Diet: Regular Discharge Activity: As Tolerated Special Instructions: No future appointments. Additional Instructions for the Follow-ups that You Need to Schedule Ambulatory Referral to Neurology As directed 4 to 8-week stroke clinic follow-up please Ambulatory referral for Screening EGD As directed Stent removal, resweep duct, choledocholithiasis, stent left given large amount of sludge with someresidual stone fragments at the end and to decrease chance of sphincterotomy bleed as patient is onanticoagulation (also ESRD on HD) Schedule repeat ERCP in 6-8 weeks Order Comments: Stent removal, resweep duct, choledocholithiasis, stent left given large amount of sludge with some residual stone fragments at the end and to decrease chance of sphincterotomy bleed as patient is on anticoagulation (also ESRD on HD) Electronically signed by Bell Carmen MD 06/13/25 10:01 EDT 23 Sophie Flor APRN at 06/14/25 1210 [facility] DISCHARGE SUMMARY Patient Name: Alexa Fuentes : 1950 Date of Admission: 06/06/2025 8:26 PM Date of Discharge: AMS Primary Care Physician: Jeffrey Sun MD Consults Date and Time Order Name Status Description 06/08/2025 3:14 PM Inpatient Infectious Diseases Consult Completed 06/08/2025 2:37 PM Inpatient General Surgery Consult Completed 06/07/2025 4:37 AM Inpatient Palliative Care MD Consult Completed 06/06/2025 11:50 PM Inpatient Gastroenterology Consult Completed 06/06/2025 8:30 PM Inpatient Nephrology Consult Completed Hospital Course Presenting Problem: AMS Active Hospital Problems Diagnosis POA Occipital stroke [I63.9] Yes Aortic stenosis [I35.0] Yes Choledocholithiasis [K80.50] Yes Acute respiratory failure with hypoxia [J96.01] Yes CAP (community acquired pneumonia) [J18.9] Yes ESRD (end stage renal disease) [N18.6] Yes Atrial fibrillation [I48.91] Yes Resolved Hospital Problems No resolved problems to display. Hospital Course: Alexa Fuentes is a 74 y.o. male with hx of HTN, HLD, COPD, Afib on Eliquis, and ESRD on HD who presents from [facility] due to AMS and concern for stroke. In addition he was found to have pneumonia and possible choledocholithiasis. Stroke team accepted in transfer to [facility]. Upon further workup found to have left lower lobe pneumonia and pneumococcal bacteremia. Infectious disease has been following for antibiotic management Acute hypoxic respiratory failure-resolved Pneumonia Strep pneumo bacteremia Sepsis -resolved --CT chest at OSH showed bilateral ground-glass opacities --Required non-rebreather mask at OSH, currently on RA-3 liters nightly and does not wear home oxygen at baseline --OSH blood cultures positive for strep pneumo. Infectious disease, [facility] following: CTX dc'd plan to continue 1 g vancomycin after hemodialysis for 5 more doses-continue through 06/26/2025 -- JARED negative for signs of endocarditis -- Continue cough medicine as needed, as needed albuterol neb Acute CVA, left occipital lobe --CT head at OSH revealed acute/subacute left occipital lobe ischemia, CTA showed no large vessel occlusion. Given that he is on Eliquis, with the last dose taken that morning, he was not a candidatefor TNK. --MRI brain here confirms tiny acute infarct within the left occipital lobe. Questionable additional punctate cortical acute/subacute infarct within the left centrum semiovale. --Bilateral carotid duplex showing less than 50% stenosis bilaterally --Echo with EF 53% and grade II diastolic dysfunction, negative saline test --Stroke Neurology following, ASA 81 mg; continue atorvastatin 80 mg nightly -- Increased eliquis to 5mg BID per stroke neruo and cards recs --PT/OT/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 evaluations- back to extended care Choledocholithiasis --CT A/P at OSH showed a distended gallbladder with a 5 mm stone, wall thickening, surrounding pericholecystic fluid, and mild intrahepatic ductal dilation, highly suspicious for choledocholithiasis.These findings were consistent with prior studies, including MRI. --MRCP 06/07/25: 7 mm stone in lower common bile duct, cholelithiasis without cholecystitis --GI consulted s/p ERCP 06/08/2025 -- to went to the OR 06/[address] Guerrero for MFM-tckerx-sd in 2 weeks - advanced to regular diet Acute parotiditis - acute parotid gland swelling worse on L - CT soft tissue neck shows enlargement and fat stranding around L parotid gland - started on dapto, transitioning to vanc with HD - viral panel negative - pt reports getting all childhood vaccines - better today Acute encephalopathy-resolved --Likely multifactorial due to pneumonia, hypoxia, stroke --back to baseline ESRD --On HD MWF --Nephrology following Afib --resume eliquis, increased to 5mg --Continue home Amiodarone HTN HLD --Not on any home BP meds-started on amlodipine 10 mg daily, continue to monitor -Does have intra dialytic hypotension-midodrine Wednesday as needed --LDL 15 --Continue statin COPD -- O2 nightly as needed Discharge Follow Up Recommendations for outpatient labs/diagnostics: PCP follow-up 1 week Follow-up with stroke/neuro 4 to 8 weeks Follow-up with Dr. Guerrero 2 weeks Day of Discharge HPI: Denies shortness of breath, pain, nausea, vomiting. Large bowel movement this morning. Anxious for discharge Review of Systems Gen- No fevers, chills CV- No chest pain, palpitations Resp- No cough, dyspnea GI- No N/V/D, abd pain Vital Signs: Temp: [98 ??F (36.7 ??C)-98.4 ??F (36.9 ??C)] 98.3 ??F (36.8 ??C) Heart Rate: [60-79] 60 Resp: [15-18] 17 BP: (150-198)/(57-93) 155/71 Flow (L/min) (Oxygen Therapy): [0-3] 0 Physical Exam: Constitutional: No acute distress, awake, alert HENT: NCAT, mucous membranes moist Respiratory: Coarse bilaterally, respiratory effort normal Cardiovascular: RRR, holosystolic murmur Gastrointestinal: Positive bowel sounds, soft, nontender, nondistended-lap sites intact Musculoskeletal: Trace ankle edema Psychiatric: Appropriate affect, cooperative Neurologic: Oriented x 3, HERNANDEZ, speech clear Skin: No rashes Pertinent and/or Most Recent Results LAB RESULTS: Lab 06/11/25 0806/10/25 15206/08/25 0848 WBC 11.08* 11.79* 10.13 HEMOGLOBIN 8.5* 8.9* 8.6* HEMATOCRIT 27.2* 28.5* 27.7* PLATELETS 206 179 195 MCV 98.9* 100.7* 98.9* Lab 06/11/25 0810 06/10/25 1522 06/09/25 1426 06/08/25 0848 SODIUM 135* 134* -- 137 POTASSIUM 5.5* 5.3* -- 5.1 CHLORIDE 95* 94* -- 93* CO2 22.9 21.2* -- 24.1 ANION GAP 17.1* 18.8* -- 19.9* BUN 66.9* 60.9* -- 80.3* CREATININE 7.96* 7.36* -- 8.13* EGFR 6.5* 7.1* -- 6.3* GLUCOSE 98 120* -- 66 CALCIUM 8.2* 8.7 -- 8.8 MAGNESIUM 2.2 -- 2.0 -- PHOSPHORUS -- 8.9* -- -- Lab 06/11/25 0810 06/10/25 1522 06/08/25 0848 TOTAL PROTEIN 6.1 5.8* 5.9* ALBUMIN 3.1* 3.2* 2.8* GLOBULIN -- 2.6 3.1 ALT (SGPT) 455* 558* 982* AST (SGOT) 168* 226* 730* BILIRUBIN 0.4 0.4 0.6 INDIRECT BILIRUBIN 0.2 -- -- BILIRUBIN DIRECT 0.2 -- -- ALK PHOS 112 118* 111 Brief Urine Lab Results None Microbiology Results (last 10 days) Procedure Component Value - Date/Time Respiratory Panel PCR w/COVID-19(SARS-CoV-2) ZHANE/SALAZAR/MELY/PAD/COR/GELY In-House, PUSH BUTTON SWITCH ASSEMBLER Swab in UTM/VTM, 2 HR TAT - Swab, Nasopharynx [[id number]] (Normal) Collected: 06/14/25 0713 Lab Status: Final result Specimen: Swab from Nasopharynx Updated: 06/14/25 08 ADENOVIRUS, PCR Not Detected Coronavirus 229E Not Detected Coronavirus HKU1 Not Detected Coronavirus NL63 Not Detected Coronavirus OC43 Not Detected COVID19 Not Detected Human Metapneumovirus Not Detected Human Rhinovirus/Enterovirus Not Detected Influenza A PCR Not Detected Influenza B PCR Not Detected Parainfluenza Virus 1 Not Detected Parainfluenza Virus 2 Not Detected Parainfluenza Virus 3 Not Detected Parainfluenza Virus 4 Not Detected RSV, PCR Not Detected Bordetella pertussis pcr Not Detected Bordetella parapertussis PCR Not Detected Chlamydophila pneumoniae PCR Not Detected Mycoplasma pneumo by PCR Not Detected Narrative: In the setting of a positive respiratory panel with a viral infection PLUS a negative procalcitoninwithout other underlying concern for bacterial infection, consider observing off antibiotics or discontinuation of antibiotics and continue supportive care. If the respiratory panel is positive for atypical bacterial infection (Bordetella pertussis, Chlamydophila pneumoniae, or Mycoplasma pneumoniae), consider antibiotic de-escalation to target atypical bacterial infection. MRSA Screen, PCR (Inpatient) - Swab, Nares [[id number]] (Abnormal) Collected: 06/08/25 1905 Lab Status: Final result Specimen: Swab from Nares Updated: 06/08/252151 MRSA PCR Positive Narrative: The negative predictive value of this diagnostic test is high and should only be used to consider de-escalating anti-MRSA therapy. A positive result may indicate colonization with MRSA and must be correlated clinically. KIMANI AURIS PCR - Swab, Axilla Right, Axilla Left and Groin [[id number]] Collected: 06/07/25 0845 Lab Status: Final result Specimen: Swab from Axilla Right, Axilla Left and Groin Updated: 06/08/25 1715 KIMANI AURIS PCR (MITUL) Not Detected Blood Culture - Blood, Wrist, Left [[id number]] (Normal) Collected: 06/07/25 0603 Lab Status: Final result Specimen: Blood from Wrist, Left Updated: 06/12/25 0730 Blood Culture No growth at 5 days Narrative: Aerobic Bottle Only Less than seven (7) mL's of blood was collected. Insufficient quantity may yield false negative results. Blood Culture - Blood, Wrist, Left [[id number]] (Normal) Collected: 06/07/25 0601 Lab Status: Final result Specimen: Blood from Wrist, Left Updated: 06/12/25 0730 Blood Culture No growth at 5 days Narrative: Aerobic Bottle Only Less than seven (7) mL's of blood was collected. Insufficient quantity may yield false negative results. CT Soft Tissue Neck Without Contrast Result Date: 06/11/2025 CT SOFT TISSUE NECK WO CONTRAST Date of Exam: 06/10/2025 10:57 PM EDT Indication: swelling and pain.Comparison: 06/06/2025 Technique: Axial CT images were obtained of the neck without contrast administration. Reconstructed coronal and sagittal images were also obtained. Automated exposure control and iterative construction methods were used. Findings: Visualized intracranial contents and globes and orbits appear within normal limits. Nasopharynx is normal. Oropharynx including base of tongue andepiglottis appear within normal limits. Larynx and piriform sinuses appear within normal limits. Visualized upper trachea and esophagus appear normal. Thyroid gland appears within normal limits. Bilateral submandibular glands are within There is subcutaneous fat stranding overlying the left parotidgland. The parotid glands are largely fatty replaced. There is edema and fat stranding within the left parotid gland consistent with parotitis. No definite parotid duct dilation or stone identified. No soft tissue mass visualized. Right parotid gland appears within limits. No pathologically enlarged cervical lymph nodes. There is a left internal jugular central venous catheter in place. There areright subclavian and internal jugular vein stents.. Degenerative changes are noted of the cervical spine. No lytic or sclerotic bony lesion. There is complete opacification of the left maxillary sinus unchanged. There is a polyp or mucous retention cyst within the posterior right maxillary sinus. Partial opacification of the left ethmoid air cells. There is complete opacification of the left mastoid air cells. Left middle ear cavity appears clear. There is patchy airspace disease in the left upper lobe, grossly unchanged from prior study consistent with pneumonia. Impression: 1. Enlargement and fat stranding in and around the left parotid gland consistent with changes of parotiditis. No definite obstructing stone identified. 2. No cervical lymphadenopathy. 3. Changes of chronic sinusitis and left mastoiditis. 4. No significant change in left upper lobe airspace disease compatible with pneumonia. Electronically Signed: Jose Jesus MD 06/11/2025 7:44 AM EDT Workstation ID: [id number] FL ERCP pancreatic and biliary ducts Result Date: 06/08/2025 FL ERCP PANCREATIC AND BILIARY DUCTS Date of Exam: 06/08/2025 10:49 AM EDT Indication: ENDOSCOPIC RETROGRADE CHOLANGIOPANCREATOGRAPHY. Comparison: None available. Technique: A series of radiographic digital spot films were obtained in conjunction with an endoscopic catheterization of the biliary andpancreatic ductal system, performed by the linux network administrator. Fluoroscopic Time: 5 minutes 57 seconds Number of Images: 10 Findings: Fluoroscopy demonstrates filling of the bile ducts. Impression: Fluoroscopy demonstrates filling of the bile ducts. Please see procedure report for full findings. Electronically Signed: Migue Mcfarlane MD 06/08/2025 3:48 PM EDT Workstation ID: [id number] Duplex Carotid Ultrasound CAR Result Date: 06/07/2025 Right internal carotid artery demonstrates a less than 50% stenosis. Right vertebral artery was notvisualized. Left internal carotid artery demonstrates a less than 50% stenosis. Antegrade left vertebral flow. 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 FEES - Fiberoptic Endo Eval Swallow Result Date: 06/07/2025 This procedure was auto-finalized with no dictation required. MRI abdomen wo contrast mrcp Result Date: 06/07/2025 MRI ABDOMEN WO CONTRAST MRCP Date of Exam: 06/07/2025 9:28 AM EDT Indication: CBD dilation with choledocholithiasis. Comparison: CT abdomen pelvis 06/06/2025. Technique: Routine multiplanar/multisequence images of the abdomen were obtained with MRCP sequences without contrast administration. Findings: Motion-degraded exam. Left lower lobe consolidation with trace left pleural effusion. Heart appears enlarged. No morphologic changes of chronic liver disease. No evidence of hepatic steatosis. No evidence of focal liver lesion on this noncontrast exam. Cholelithiasis. Mild gallbladder distention without wall thickening or pericholecystic fluid. Intra and extrahepatic biliary ductal dilatation tothe level of the ampulla with common bile duct measuring 15 mm. 7 mm ovoid filling defect within the lower common bile duct consistent with choledocholithiasis. No pancreatic ductal dilatation. No findings of acute pancreatitis. Spleen is normal in size. Bilateral renal atrophy. Subcentimeter hemorrhagic/proteinaceous foci along the left kidney may represent a hemorrhagic/proteinaceous cyst, though incompletely characterized on this noncontrast exam. Otherwise there are multiple bilateral renalcysts are overall simple-appearing. No hydronephrosis. No dilated bowel loops within the [id number]. No free fluid in the abdomen. No pathologically enlarged lymph nodes. No abdominal aortic aneurysm. Atherosclerosis. No body wall abnormality. Multilevel spondylosis. No acute or suspicious osseous abnormalities evident on this noncontrast exam. Impression: Choledocholithiasis with a 7 mm stone in the lower common bile duct. Intra and extrahepatic biliary ductal dilatation with common bile duct measuring 15 mm. Correlate with serum bilirubinand consider ERCP. Cholelithiasis without evidence of acute cholecystitis. Left lower lobe consolidation with trace left pleural effusion, suggestive of pneumonia. Chronic/ancillary findings as above. Electronically Signed: Preet Crowley MD 06/07/2025 10:26 AM EDT Workstation ID: [id number] MRI Brain Without Contrast Result Date: 06/07/2025 MRI BRAIN WO CONTRAST Date of Exam: 06/07/2025 9:17 AM EDT Indication: Stroke, follow up Left occipital stroke seen on CT scan. Comparison: Head CT dated 06/06/2025 Technique: Routine multiplanar/multisequence sequence images of the brain were obtained without contrast administration. FINDINGS: Thereis a tiny focus of DWI hyperintense signal within the left occipital lobe (series 5, image 86), concerning for tiny acute infarct. Questionable additional punctate cortical infarct within the left centrum semiovale (series 5, image 96). Foci of T2/FLAIR signal hyperintensity are seen within the bilateral hemispheric white matter. There is cortical atrophy with prominent sulcation and ventriculomegaly. There is encephalomalacia involving the bilateral cerebellum and left occipital lobe, likely related to remote infarcts. Midline structures appear unremarkable. No significant mass effect, intracranial hemorrhage, or hydrocephalus is identified. The visualized intracranial flow-voids appear unr emarkable. There is pansinus mucosal thickening with complete opacification of the left maxillary sinus. Bilateral mastoid effusions are also seen. Bilateral lens prostheses noted. The visualized superficial soft tissues and cervical spine demonstrate no significant abnormality. 1.Findings concerning for tiny acute infarct within the left occipital lobe (series 5, image 86). Questionable additional punctate cortical acute/subacute infarct within the left centrum semiovale (series 5, image 96). 2.Additional findings compatible with chronic microvascular ischemic change and diffuse cortical atrophy. 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 3.Pansinus mucosal thickening and bilateral mastoid effusions. Electronically Signed: Vimal Lares MD 06/07/2025 10:22 AM EDT Workstation ID: [id number] CT Outside Films Result Date: 06/06/2025 This procedure was auto-finalized with no dictation required. CT Outside Abd/Pelvis Result Date: 06/06/2025 This procedure was auto-finalized with no dictation required. CT Outside Head Result Date: 06/06/2025 This procedure was auto-finalized with no dictation required. CT Outside Films Result Date: 06/06/2025 This procedure was auto-finalized with no dictation required. CT Outside Neck Result Date: 06/06/2025 This procedure was auto-finalized with no dictation required. Results for orders placed during the hospital encounter of 06/06/25 Duplex Carotid Ultrasound CAR 06/07/2025 5:15 PM Interpretation Summary Right internal carotid artery demonstrates a less than 50% stenosis. Right vertebral artery was not visualized. Left internal carotid artery demonstrates a less than 50% stenosis. Antegrade left vertebral flow. Results for orders placed during the hospital encounter of 06/06/25 Duplex Carotid Ultrasound CAR 06/07/2025 5:15 PM Interpretation Summary Right internal carotid artery demonstrates a less than 50% stenosis. Right vertebral artery was not visualized. Left internal carotid artery demonstrates a less than 50% stenosis. Antegrade left vertebral flow. Results for orders placed during the hospital encounter of 06/06/25 Adult Transesophageal Echo 3D (JARED) W/ Cont If Necessary Per Protocol 06/11/2025 3:04 PM Interpretation Summary Left ventricular ejection fraction appears to be 56 - 60%. No evidence of a left atrial appendage thrombus was present. A catheter is present in the right atrium. Severe mitral annular calcification is present. Mild to moderate mitral valve regurgitation is present. No significant mitral valve stenosis is present. There is moderate calcification of the aortic valve. Moderate aortic valve regurgitation is present. Moderate aortic valve stenosis is present. Mean gradient 24mmHg Moderate tricuspid valve regurgitation is present. Estimated right ventricular systolic pressure from tricuspid regurgitation is moderately elevated (45-55 mmHg). There is moderate, (grade 3) plaque in the aortic arch present. Mild dilation of the aortic root is present. Aortic root measures 4.1 cm. There is moderate, (grade3) plaque in the aortic arch present. No valvular vegetations noted. No echocardiographic evidence of endocarditis I supervised and directed an independent trained observer with the assistance of monitoring the patient's level of consciousness and physiological status throughout the procedure. Intraoperative service time of 20 minutes I have personally reviewed the therapy plans: [x] PT/OT/ ST Therapy Plans Plan for Follow-up of Pending Labs/Results: Discharge Details Discharge Medications New Medications Instructions Start Date albuterol 0.63 MG/3ML nebulizer solution Commonly known as: ACCUNEB 0.63 mg, Nebulization, Every 4 Hours PRN amLODIPine 10 MG tablet Commonly known as: NORVASC 10 mg, Oral, Every 24 Hours Scheduled Start Date: June 15, 2025 aspirin 81 MG chewable tablet 81 mg, Oral, Daily Start Date: June 15, 2025 oxyCODONE-acetaminophen 5-325 MG per tablet Commonly known as: PERCOCET 1 tablet, Oral, Every 4 Hours PRN polyethylene glycol 17 g packet Commonly known as: MIRALAX 17 g, Oral, Daily PRN sennosides-docusate 8.6-50 MG per tablet Commonly known as: PERICOLACE 2 tablets, Oral, 2 Times Daily PRN vancomycin 1,000 mg in sodium chloride 0.9 % 250 mL IVPB 1,000 mg, Intravenous, 3 Times Weekly Start Date: June 15, 2025 Changes to Medications Instructions Start Date apixaban 5 MG tablet tablet Commonly known as: ELIQUIS What changed: medication strength how much to take 5 mg, Oral, Every 12 Hours Scheduled traZODone 100 MG tablet Commonly known as: DESYREL What changed: when to take this reasons to take this 100 mg, Oral, Nightly PRN Continue These Medications Instructions Start Date acetaminophen 500 MG tablet Commonly known as: TYLENOL 1,000 mg, Oral, 4 Times Daily PRN amiodarone 200 MG tablet Commonly known as: PACERONE 200 mg, Oral, 2 Times Daily atorvastatin 80 MG tablet Commonly known as: LIPITOR 80 mg, Oral, Nightly benzonatate 100 MG capsule Commonly known as: TESSALON 100 mg, Oral, 3 Times Daily PRN [place] 0.44-20.625 % ointment ointment Generic drug: menthol-zinc oxide 1 Application, Topical, Daily, Cleanse periwound/sacrum, with NS and apply ointment to periwound and cover with ABD calcium acetate 667 MG capsule capsule Commonly known as: PHOS BINDER) 667 mg, Oral, 3 Times Daily cetirizine 10 MG tablet Commonly known as: zyrTEC 10 mg, Oral, Nightly Cough Drops 5.8 MG lozenge Generic drug: Menthol 1 lozenge, Mouth/Throat, Every 4 Hours PRN fluticasone 27.5 MCG/SPRAY nasal spray Commonly known as: VERAMYST 2 sprays, Nasal, Nightly guaiFENesin 600 MG 12 hr tablet Commonly known as: MUCINEX 600 mg, Oral, 2 Times Daily, 30-600mg 1 tablet twice daily between 0636-6527 loperamide 2 MG capsule Commonly known as: IMODIUM 2 mg, Oral, 4 Times Daily PRN midodrine 5 MG tablet Commonly known as: PROAMATINE 10 mg, Oral, 3 Times Weekly, Mon, Wed, Sat between 6823-4290 montelukast 10 MG tablet Commonly known as: SINGULAIR 10 mg, Oral, Nightly ondansetron 4 MG tablet Commonly known as: ZOFRAN 4 mg, Oral, 3 Times Daily PRN pantoprazole 40 MG EC tablet Commonly known as: PROTONIX 40 mg, Oral, Daily ProSource No Carb liquid 30 mL, Oral, Daily CHRISTINE-CLAUDE PO 1 tablet, Oral, Daily vitamin B-12 1000 MCG tablet Commonly known as: CYANOCOBALAMIN 1,000 mcg, Oral, Daily Zinc Sulfate 220 (50 Zn) MG tablet 1 tablet, Oral, Daily Stop These Medications promethazine-dextromethorphan 6.25-15 MG/5ML syrup Commonly known as: PROMETHAZINE-DM No Known Allergies Discharge Disposition: Long Term Facility (DC - External) Diet: Hospital: Diet Order Procedures Diet: Liquid; Full Liquid; Fluid Consistency: Thin (IDDSI 0) Standing Status: Standing Number of Occurrences: 1 Diets:: Liquid Liquid Diet:: Full Liquid Fluid Consistency:: Thin (IDDSI 0) Diet Instructions Diet: Cardiac Diets, Renal Diets; Healthy Heart (2-3 Na+); Thin (IDDSI 0); Low Sodium (2-3g), Low Potassium, Low Phosphorus Discharge Diet: Cardiac Diets Renal Diets Cardiac Diet: Healthy Heart (2-3 Na+) Fluid Consistency: Thin (IDDSI 0) Renal Diet: Low Sodium (2-3g) Low Potassium Low Phosphorus Activity: Activity Instructions Activity as Tolerated Restrictions or Other Recommendations: CODE STATUS: Code Status and Medical Interventions: No CPR (Do Not Attempt to Resuscitate); Limited Support; No intubation (DNI) Ordered at: 06/11/25 1432 Code Status (Patient has no pulse and is not breathing): No CPR (Do Not Attempt to Resuscitate) Medical Interventions (Patient has pulse or is breathing): Limited Support Medical Intervention Limits: No intubation (DNI) Level Of Support Discussed With: Patient No future appointments. Additional Instructions for the Follow-ups that You Need to Schedule Ambulatory Referral to Neurology As directed 4 to 8-week stroke clinic follow-up please Ambulatory referral for Screening EGD As directed Stent removal, resweep duct, choledocholithiasis, stent left given large amount of sludge with someresidual stone fragments at the end and to decrease chance of sphincterotomy bleed as patient is onanticoagulation (also ESRD on HD) Schedule repeat ERCP in 6-8 weeks Order Comments: Stent removal, resweep duct, choledocholithiasis, stent left given large amount of sludge with some residual stone fragments at the end and to decrease chance of sphincterotomy bleed as patient is on anticoagulation (also ESRD on HD) Discharge Follow-up with PCP As directed Currently Documented PCP: Jeffrey Sun MD PCP Follow Up Details: within the week Discharge Follow-up with Specified Provider: dr. guerrero; 2 Weeks As directed To: dr. guerrero Follow Up: 2 Weeks Discharge Follow-up with Specified Provider: stroke neuro; 6 Weeks As directed To: stroke neuro Follow Up: 6 Weeks Sophie Flor APRN 06/14/25 Time Spent on Discharge: I spent 45 minutes on this discharge activity which included: [id number] with the patient, reviewing the data in the system, coordination of the care with the nursing staff as well as consultants, documentation, and entering orders. Electronically signed by Sophie Flor APRN, 06/14/25, 12:10 PM EDT. 1221 INFECTIOUS DISEASE Progress Note Alexa Fuentes 1950 [id number] Date of Consult: 06/08/2025 Admission Date: 06/06/2025 Requesting Provider: Ivonne Ralph MD Evaluating Physician: Pantera Dc MD Reason for Consultation: Strep pneumoniae bacteremia History of present illness: 06/08/2025: Patient is a 74 y.o. male with h/o COPD, ESRD/HD MWF/RUE AVF not working for about a year/dialysis catheter in place for close to a year, afib/Eliquis, obesity, HTN, HLD, and CVA who we were asked to see for Streptococcus pneumoniae bacteremia. He was transferred from [facility] to [facility] on 06/06 for concerns for stroke along with altered mental status. He was noted at [facility] to be more lethargic and confused and was transferred to [facility]. His CT [facility] showed acute/subacute left occipital lobe ischemia and a CTA of head showed no large vessel occlusion. He was not a candidate for TNK. His labs at OSH were WBC 21,000, creatinine 5.10, AST 485, ALT 482, and bilirubin 1.5. A CT scan of a/p showed distended gallbladder with 5 mm stone, wall thickening, pericholecystic fluid, and mild intrahepatic ductal dilatation suspicious for choledocholel ithiasis. A CT scan of chest showed bilateral GGO. He was started on IV antibiotics and transferredto [facility] on 06/06. Since arrival, the patient has been afebrile. An MRI of the brain on 06/07 show tiny acute infarct in the left occipital lobe and chronic infarcts in bilateral cerebellum and left occipital lobe alongwith pansinus mucosal thickening and bilateral mastoid effusions. An MRCP of abd on 06/07 showed choledocholelithiasis in CBD and cholelithiasis without acute cholecystitis along with LLL consolidation c/w pneumonia. He underwent an ERCP with stone removal and stent placement on 06/[address] Foote. He was evaluated by Dr. Tim for possible cholecystectomy on 06/09. Blood cultures are negative to date. A C.auris PCR is negative. He is currently on Rocephin and Flagyl. ID was asked to evalaute and manage his antibiotic therapy. His blood cultures from [facility] became positive for GPC in pairs in 2 of 2 sets (4 of 4 bottles) with Streptococcus pneumoniae identified by [employer] [facility]. (Fax is on chart) 06/09/2025: He remains afebrile. Blood cultures here are no growth so far. I asked Dr. Arboleda review his echocardiogram. He clearly has an abnormal aortic valve and we cannot exclude a vegetation. He underwent cholecystectomy today. 06/10/2025: He remains afebrile. Blood cultures here are no growth so far. He remains confused. He denies increased cough and sputum production. He denies severe abdominal pain. 06/11/2025: He remains afebrile. Blood cultures from 06/07 are no growth so far. He developed bilateral parotid swelling and discomfort overnight. A CT scan of his neck reveals left parotid inflammation consistent with parotitis. There was no evidence of a obstructing stone. Today revealed moderate calcification of the aortic valve and moderate aortic regurgitation with moderate aortic stenosis. There was no evidence of valvular vegetation. He also had mild to moderate mitral regurgitation. He complains of left parotid region pain 06/12/2025: He remains afebrile. White blood cell count yesterday was 11.1. He denies increased cough and sputum production. He continues to complain of left parotid discomfort. 06/13/2025: He remains afebrile. He has decreased left parotid pain and swelling. He denies nausea and vomiting. He denies increased dyspnea. I saw him at dialysis today. 06/14/25: He remains afebrile. He continues to feel better with decreased left parotid pain and swelling. He denies increased cough and sputum production Medical History Past Medical History: Diagnosis Date COPD (chronic obstructive pulmonary disease) ESRD (end stage renal disease) on dialysis Hyperlipidemia Hypertension Stroke Surgical History Past Surgical History: Procedure Laterality Date CHOLECYSTECTOMY N/A 06/09/2025 Procedure: CHOLECYSTECTOMY LAPAROSCOPIC; Surgeon: Charles Guerrero MD; Location: [facility] OR; Service: General; Laterality: N/A; COLONOSCOPY ERCP N/A 06/08/2025 Procedure: ENDOSCOPIC RETROGRADE CHOLANGIOPANCREATOGRAPHY; Surgeon: Kishore Foote MD; Location: [facility] ENDOSCOPY; Service: Gastroenterology; Laterality: N/A; KNEE SURGERY Right Family History Problem Relation Age of Onset Cancer Father Social History Social History Socioeconomic History Marital status: Tobacco Use Smoking status: Never Smokeless tobacco: Never Vaping Use Vaping status: Never Used Substance and Sexual Activity Alcohol use: Never Drug use: Never Sexual activity: Not Currently Allergies No Known Allergies Medication: Current Medications Current Facility-Administered Medications: acetaminophen (TYLENOL) tablet 650 mg, 650 mg, Oral, Q4H PRN, 650 mg at 06/08/25 0330 OR acetaminophen (TYLENOL) 160 MG/5ML oral solution 650 mg, 650 mg, Oral, Q4H PRN OR acetaminophen (TYLENOL) suppository 650 mg, 650 mg, Rectal, Q4H PRN, Charles Guerrero MD albumin human 25 % IV SOLN 12.5 g, 12.5 g, Intravenous, PRN, Charles Guerrero MD, 12.5 g at 06/08/25 1507 amiodarone (PACERONE) tablet 200 mg, 200 mg, Oral, BID, Charles Guerrero MD, 200 mg at 015 apixaban (ELIQUIS) tablet 5 mg, 5 mg, Oral, Q12H, Ivonne Ralph MD, 5 mg at 06/13/252014 aspirin chewable tablet 81 mg, 81 mg, Oral, Daily, 81 mg at 06/12/25 0836 OR aspirin suppository 300 mg, 300 mg, Rectal, Daily, Charles Guerrero MD atorvastatin (LIPITOR) tablet 80 mg, 80 mg, Oral, Nightly, Charles Guerrero MD, 80 mg at 06/13/252014 sennosides-docusate (PERICOLACE) 8.6-50 MG per tablet 2 tablet, 2 tablet, Oral, BID PRN, 2 tablet at 06/13/252014 AND polyethylene glycol (MIRALAX) packet 17 g, 17 g, Oral, Daily PRN, 17 g at 06/13/25 1223 AND bisacodyl (DULCOLAX) EC tablet 5 mg, 5 mg, Oral, Daily PRN AND bisacodyl (DULCOLAX) suppository 10 mg, 10 mg, Rectal, Daily PRN, Charles Guerrero MD, 10 mg at 06/13/25 1328 Calcium Replacement - Follow Nurse / BPA Driven Protocol, , Not Applicable, PRN, Charles Guerrero MD guaiFENesin (MUCINEX) 12 hr tablet 600 mg, 600 mg, Oral, Q12H, Charles Guerrero MD, 600 mg at 06/13/252014 heparin (porcine) injection 2,000 Units, 2,000 Units, Intracatheter, PRN, Rehan Lincoln MD, 2,000 Units at 06/13/25 1146 HYDROmorphone (DILAUDID) injection 0.5 mg, 0.5 mg, Intravenous, Q2H PRN AND naloxone (NARCAN) injection 0.1 mg, 0.1 mg, Intravenous, Q5 Min PRN, Charles Guerrero MD ipratropium-albuterol (DUO-NEB) nebulizer solution 3 mL, 3 mL, Nebulization, Q6H PRN, Ivonne Ralph MD Magnesium Standard Dose Replacement - Follow Nurse / BPA Driven Protocol, , Not Applicable, PRN, Charles Guerrero MD nitroglycerin (NITROSTAT) SL tablet 0.4 mg, 0.4 mg, Sublingual, Q5 Min PRN, Charles Guerrero MD ondansetron (ZOFRAN) injection 4 mg, 4 mg, Intravenous, Q6H PRN, Charles Guerrero MD, 4 mg at 06/08/25 1351 oxyCODONE-acetaminophen (PERCOCET) 5-325 MG per tablet 1 tablet, 1 tablet, Oral, Q4H PRN, Charles Guerrero MD, 1 tablet at 06/09/252014 pantoprazole (PROTONIX) EC tablet 40 mg, 40 mg, Oral, Daily, Charles Guerrero MD, 40 mg at 06/12/25 0836 Pharmacy to dose vancomycin, , Not Applicable, Continuous PRN, Pantera Dc MD Phosphorus Replacement - Follow Nurse / BPA Driven Protocol, , Not Applicable, PRN, Charles Guerrero MD Potassium Replacement - Follow Nurse / BPA Driven Protocol, , Not Applicable, PRN, Charles Guerrero MD simethicone (MYLICON) chewable tablet 80 mg, 80 mg, Oral, 4x Daily PRN, Ivonne Bah MD, 80 mg at 06/10/25 0957 sodium chloride 0.9 % flush 10 mL, 10 mL, Intravenous, Q12H, Charles Guerrero MD, 10 mL at 06/13/25 1328 sodium chloride 0.9 % flush 10 mL, 10 mL, Intravenous, PRN, Charles Guerrero MD sodium chloride 0.9 % flush 10 mL, 10 mL, Intravenous, Q12H, Charles Guerrero MD, 10 mL at 06/13/25 1328 sodium chloride 0.9 % flush 10 mL, 10 mL, Intravenous, PRN, Charles Guerrero MD sodium chloride 0.9 % infusion 40 mL, 40 mL, Intravenous, PRN, Charles Guerrero MD sodium chloride nasal spray 2 spray, 2 spray, Each Nare, Q30 Min PRN, Laure Billings, HOSIERY BAGGER, 2 spray at 06/13/25 0415 vancomycin (dosing per levels), , Not Applicable, Daily, Veena Liu, [facility] Antibiotics: Anti-Infectives (From admission, onward) Ordered Dose/Rate Route Frequency Start Stop 06/12/25 0739 DAPTOmycin (CUBICIN) 950 mg in sodium chloride 0.9 % 50 mL IVPB Status: Discontinued Ordering Provider: Ivonne Ralph MD 9 mg/kg ?? 106 kg (Adjusted) 100 mL/hr over 30 Minutes Intravenous Every Wednesday06/15/25 1600 06/12/25 0908 06/12/25 0958 vancomycin (dosing per levels) Ordering Provider: Veena Liu RPH Not Applicable Daily 06/14/25 0900 06/24/25 0859 06/12/25 0739 DAPTOmycin (CUBICIN) 650 mg in sodium chloride 0.9 % 50 mL IVPB Status: Discontinued Ordering Provider: Ivonne Ralph MD 6 mg/kg ?? 106 kg (Adjusted) 100 mL/hr over 30 Minutes Intravenous Once per day on Wednesday06/13/25 1600 06/12/25 0908 06/12/25 0910 vancomycin (dosing per levels) Status: Discontinued Ordering Provider: Anjana Cali, PharmD Not Applicable Daily 06/13/25 0900 06/12/25 0958 06/12/25 0958 vancomycin (VANCOCIN) 1,000 mg in sodium chloride 0.9 % 250 mL IVPB-VTB Ordering Provider: Veena Liu RPH 1,000 mg 250 mL/hr over 60 Minutes Intravenous Once 06/13/25 0900 06/13/25 1134 06/12/25 0958 vancomycin 2250 mg/500 mL 0.9% NS IVPB ([facility]) Ordering Provider: Veena Liu RPH 2,250 mg over 135 Minutes Intravenous Once 06/12/25 1800 06/12/25202006/12/25 0908 Pharmacy to dose vancomycin Ordering Provider: Pantera Dc MD Not Applicable Continuous PRN 06/12/25 0907 06/22/25 0906 06/11/25 1106 DAPTOmycin (CUBICIN) 650 mg in sodium chloride 0.9 % 50 mL IVPB Status: Discontinued Ordering Provider: Pura Cross RPH 6 mg/kg ?? 106 kg (Adjusted) 100 mL/hr over 30 Minutes Intravenous Once per day on Wednesday06/11/25 2100 06/12/25 0739 06/11/25 1055 DAPTOmycin (CUBICIN) 650 mg in sodium chloride 0.9 % 50 mL IVPB Status: Discontinued Ordering Provider: Ivonne Ralph MD 6 mg/kg ?? 106 kg (Adjusted) 100 mL/hr over 30 Minutes Intravenous Every 24 Hours 06/11/25 1145 06/11/25 1106 06/07/25 1532 metroNIDAZOLE (FLAGYL) IVPB 500 mg Status: Discontinued Ordering Provider: Charles Guerrero MD 500 mg 200 mL/hr over 30 Minutes Intravenous Every 8 Hours 06/07/25199906/10/25 0722 06/07/25 0437 metroNIDAZOLE (FLAGYL) IVPB 500 mg Status: Discontinued Ordering Provider: Rolan Muro MD 500 mg 200 mL/hr over 30 Minutes Intravenous Every 8 Hours 06/07/25 0606/07/25 1532 06/07/25 0437 cefTRIAXone (ROCEPHIN) 2,000 mg in sodium chloride 0.9 % 100 mL MBP Status: Discontinued Ordering Provider: Pantera Dc MD 2,000 mg 200 mL/hr over 30 Minutes Intravenous Every 24 Hours 06/07/25 0606/12/25 0908 Review of Systems: He is confused and cannot provide a reliable review of systems Physical Exam: Vital Signs Temp (24hrs), Av ??F (36.7 ??C), Min:97.6 ??F (36.4 ??C), Max:98.4 ??F (36.9 ??C) Temp Min: 97.6 ??F (36.4 ??C) Max: 98.4 ??F (36.9 ??C) BP Min: 142/78 Max: 198/78 Pulse Min: 63 Max: 79 Resp Min: 15 Max: 18 SpO2 Min: 85 % Max: 99 % GENERAL: Awake and alert, in no acute distress. He is pleasantly confused HEENT: Normocephalic, atraumatic. PERRL. EOMI. No conjunctival injection. No icterus. Decrease Leftparotid swelling and tenderness. NECK: Supple. HEART: 3/6 systolic murmur LUNGS:Diminished at left lung base with basilar rales, relatively clear right lung field without wheezing,. Normal respiratory effort. Nonlabored. ABDOMEN: Soft, nontender, nondistended.. No rebound or guarding. NO mass or HSM. Obese. EXT: No cyanosis 1+ edema. No cord. : Without Archibald catheter. MSK: No joint effusions or erythema SKIN: Warm and dry without cutaneous eruptions on Inspection/palpation. NEURO: pleasantly confused Motor 5/5 strength Left CW HD cath dry without erythema Laboratory Data Results from last 7 days Lab Units 06/11/25 0810 06/10/25 1522 06/08/25 0848 WBC 10*3/mm3 11.08* 11.79* 10.13 HEMOGLOBIN g/dL 8.5* 8.9* 8.6* HEMATOCRIT % 27.2* 28.5* 27.7* PLATELETS 10*3/mm3 206 179 195 Results from last 7 days Lab Units 06/11/25 0810 SODIUM mmol/L 135* POTASSIUM mmol/L 5.5* CHLORIDE mmol/L 95* CO2 mmol/L 22.9 BUN mg/dL 66.9* CREATININE mg/dL 7.96* GLUCOSE mg/dL 98 CALCIUM mg/dL 8.2* Results from last 7 days Lab Units 06/11/25 0810 ALK PHOS U/L 112 BILIRUBIN mg/dL 0.4 BILIRUBIN DIRECT mg/dL 0.2 ALT (SGPT) U/L 455* AST (SGOT) U/L 168* Estimated Creatinine Clearance: 11.8 mL/min (A) (by C-G formula based on SCr of 7.96 mg/dL (H)). Microbiology: Microbiology Results (last 10 days) Procedure Component Value - Date/Time MRSA Screen, PCR (Inpatient) - Swab, Nares [[id number]] (Abnormal) Collected: 06/08/25 1905 Lab Status: Final result Specimen: Swab from Nares Updated: 06/08/25 215 MRSA PCR Positive Narrative: The negative predictive value of this diagnostic test is high and should only be used to consider de-escalating anti-MRSA therapy. A positive result may indicate colonization with MRSA and must be correlated clinically. KIMANI AURIS PCR - Swab, Axilla Right, Axilla Left and Groin [[id number]] Collected: 06/07/25 0845 Lab Status: Final result Specimen: Swab from Axilla Right, Axilla Left and Groin Updated: 06/08/25 1715 KIMANI AURIS PCR ([facility]) Not Detected Blood Culture - Blood, Wrist, Left [[id number]] (Normal) Collected: 06/07/25 0603 Lab Status: Final result Specimen: Blood from Wrist, Left Updated: 06/12/25 0730 Blood Culture No growth at 5 days Narrative: Aerobic Bottle Only Less than seven (7) mL's of blood was collected. Insufficient quantity may yield false negative results. Blood Culture - Blood, Wrist, Left [[id number]] (Normal) Collected: 06/07/25 0601 Lab Status: Final result Specimen: Blood from Wrist, Left Updated: 06/12/25 0730 Blood Culture No growth at 5 days Narrative: Aerobic Bottle Only Less than seven (7) mL's of blood was collected. Insufficient quantity may yield false negative results. Radiology: Imaging Results (Last 72 Hours) Procedure Component Value Units Date/Time CT Soft Tissue Neck Without Contrast [[id number]] Collected: 06/11/25 0737 Updated: 06/11/25 0747 Narrative: CT SOFT TISSUE NECK WO CONTRAST Date of Exam: 06/10/2025 10:57 PM EDT Indication: swelling and pain. Comparison: 06/06/2025 Technique: Axial CT images were obtained of the neck without contrast administration. Reconstructedcoronal and sagittal images were also obtained. Automated exposure control and iterative construction methods were used. Findings: Visualized intracranial contents and globes and orbits appear within normal limits. Nasopharynx is normal. Oropharynx including base of tongue and epiglottis appear within normal limits. Larynx and piriform sinuses appear within normal limits. Visualized upper trachea and esophagus appear normal. Thyroid gland appears within normal limits. Bilateral submandibular glands are within There is subcutaneous fat stranding overlying the left parotid gland. The parotid glands are largely fatty replaced. There is edema and fat stranding within the left parotid gland consistent with parotitis. No definite parotid duct dilation or stone identified. No soft tissue mass visualized. Right parotid gland appears within limits. No pathologically enlarged cervical lymph nodes. There is a left internal jugular central venous catheter in place. There are right subclavian and internal jugular vein stents.. Degenerative changes are noted of the cervical spine. No lytic or sclerotic bony lesion. There is complete opacification of the left maxillary sinus unchanged. There is a polyp or mucous retention cyst within the posterior right maxillary sinus. Partial opacification of the left ethmoid air cells. There is complete opacification of the left mastoid air cells. Left middle ear cavity appears clear. There is patchy airspace disease in the left upper lobe, grossly unchanged from prior study consistent with pneumonia. Impression: Impression: 1. Enlargement and fat stranding in and around the left parotid gland consistent with changes of parotiditis. No definite obstructing stone identified. 2. No cervical lymphadenopathy. 3. Changes of chronic sinusitis and left mastoiditis. 4. No significant change in left upper lobe airspace disease compatible with pneumonia. Electronically Signed: Jose Jesus MD 06/11/2025 7:44 AM EDT Workstation ID: [id number] I read his radiographic images. Impression: Pneumococcal bacteremia-secondary to left lower lobe pneumonia. There is no evidence of endocarditis by JARED. Choledocholelithiasis- s/p ERCP 06/08 with stone extraction and stent placement. S/P cholecystectomy06/09 LLL pneumococcal pneumonia Left parotitis- this is most likely secondary to MRSA. Send he received 5 doses of intravenous daptomycin at dialysis. Acute left occipital lobe cerebral vascular accident Valvular heart disease-with moderate to severe aortic stenosis and mild to moderate mitral regurgitation. There is no evidence of endocarditis by JARED. Severe sepsis- improved. Encephalopathy, toxic/metabolic, improving Acute hypoxic respiratory failure Leukocytosis/neutrophilia Anemia of chronic disease Choledocholithiasis End stage renal disease/Hemodialysis MWF/dialysis catheter in place for almost a year/RUE AVF not working for about a year. Atrial fibrillation/Eliquis on hold Chronic obstructive pulmonary disease Essential hypertension/dyslipidemia PLAN/RECOMMENDATIONS: Vancomycin 1 g IV with each dialysis x 5 doses Possible discharge to rehab Outpatient orders: Vancomycin 1 g IV with each dialysis for total of 5 doses I will sign off This visit included the following complex service elements: Complex medical decision-making associated with antimicrobial prescribing. In-depth chart review with high level synthesis for complex diagnoses. Managed infection treatment protocol associated with transitions of care for this complex patient. Pantera Dc MD * Sophie Flor APRN - 06/14/2025 12:10 PM EDT Images from the original note were not included. [facility] DISCHARGE SUMMARY Patient Name: Alexa Fuentes : 1950 Date of Admission: 06/06/2025 8:26 PM Date of Discharge: [facility] Primary Care Physician: Jeffrey Sun MD Consults Date and Time Order Name Status Description 06/08/2025 3:14 PM Inpatient Infectious Diseases Consult Completed 06/08/2025 2:37 PM Inpatient General Surgery Consult Completed 06/07/2025 4:37 AM Inpatient Palliative Care MD Consult Completed 06/06/2025 11:50 PM Inpatient Gastroenterology Consult Completed 06/06/2025 8:30 PM Inpatient Nephrology Consult Completed Hospital Course Presenting Problem: AMS Active Hospital Problems Diagnosis POA Occipital stroke [I63.9] Yes Aortic stenosis [I35.0] Yes Choledocholithiasis [K80.50] Yes Acute respiratory failure with hypoxia [J96.01] Yes CAP (community acquired pneumonia) [J18.9] Yes ESRD (end stage renal disease) [N18.6] Yes Atrial fibrillation [I48.91] Yes Resolved Hospital Problems No resolved problems to display. Hospital Course: Alexa Fuentes is a 74 y.o. male with hx of HTN, HLD, COPD, Afib on Eliquis, and ESRD on HD who presents from [facility] due to AMS and concern for stroke. In addition he was found to have pneumonia and possible choledocholithiasis. Stroke team accepted in transfer to [facility]. Upon further workup found to have left lower lobe pneumonia and pneumococcal bacteremia. Infectious disease has been following for antibiotic management Acute hypoxic respiratory failure-resolved Pneumonia Strep pneumo bacteremia Sepsis -resolved --CT chest at OSH showed bilateral ground-glass opacities --Required non-rebreather mask at OSH, currently on RA-3 liters nightly and does not wear home oxygen at baseline --OSH blood cultures positive for strep pneumo. Infectious disease, Pantera Dc following: CTX dc'd plan to continue 1 g vancomycin after hemodialysis for 5 more doses-continue through 06/26/2025 -- JARED negative for signs of endocarditis -- Continue cough medicine as needed, as needed albuterol neb Acute CVA, left occipital lobe --CT head at OSH revealed acute/subacute left occipital lobe ischemia, CTA showed no large vessel occlusion. Given that he is on Eliquis, with the last dose taken that morning, he was not a candidatefor TNK. --MRI brain here confirms tiny acute infarct within the left occipital lobe. Questionable additional punctate cortical acute/subacute infarct within the left centrum semiovale. --Bilateral carotid duplex showing less than 50% stenosis bilaterally --Echo with EF 53% and grade II diastolic dysfunction, negative saline test --Stroke Neurology following, ASA 81 mg; continue atorvastatin 80 mg nightly -- Increased eliquis to 5mg BID per stroke neruo and cards recs --PT/OT/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 evaluations- back to extended care Choledocholithiasis --CT A/P at OSH showed a distended gallbladder with a 5 mm stone, wall thickening, surrounding pericholecystic fluid, and mild intrahepatic ductal dilation, highly suspicious for choledocholithiasis.These findings were consistent with prior studies, including MRI. --MRCP 06/07/25: 7 mm stone in lower common bile duct, cholelithiasis without cholecystitis --GI consulted s/p ERCP 06/08/2025 -- to went to the OR 06/[address] Guerrero for [id number] in 2 weeks - advanced to regular diet Acute parotiditis - acute parotid gland swelling worse on L - CT soft tissue neck shows enlargement and fat stranding around L parotid gland - started on dapto, transitioning to vanc with HD - viral panel negative - pt reports getting all childhood vaccines - better today Acute encephalopathy-resolved --Likely multifactorial due to pneumonia, hypoxia, stroke --back to baseline ESRD --On HD MWF --Nephrology following Afib --resume eliquis, increased to 5mg --Continue home Amiodarone HTN HLD --Not on any home BP meds-started on amlodipine 10 mg daily, continue to monitor -Does have intra dialytic hypotension-midodrine Wednesday as needed --LDL 15 --Continue statin COPD -- O2 nightly as needed Discharge Follow Up Recommendations for outpatient labs/diagnostics: PCP follow-up 1 week Follow-up with stroke/neuro 4 to 8 weeks Follow-up with Dr. Guerrero 2 weeks Day of Discharge HPI: Denies shortness of breath, pain, nausea, vomiting. Large bowel movement this morning. Anxious for discharge Review of Systems Gen- No fevers, chills CV- No chest pain, palpitations Resp- No cough, dyspnea GI- No N/V/D, abd pain Vital Signs: Temp: [98 ??F (36.7 ??C)-98.4 ??F (36.9 ??C)] 98.3 ??F (36.8 ??C) Heart Rate: [60-79] 60 Resp: [15-18] 17 BP: (150-198)/(57-93) 155/71 Flow (L/min) (Oxygen Therapy): [0-3] 0 Physical Exam: Constitutional: No acute distress, awake, alert HENT: NCAT, mucous membranes moist Respiratory: Coarse bilaterally, respiratory effort normal Cardiovascular: RRR, holosystolic murmur Gastrointestinal: Positive bowel sounds, soft, nontender, nondistended-lap sites intact Musculoskeletal: Trace ankle edema Psychiatric: Appropriate affect, cooperative Neurologic: Oriented x 3, HERNANDEZ, speech clear Skin: No rashes Pertinent and/or Most Recent Results LAB RESULTS: Lab 06/11/25 0806/10/25 15206/08/25 0848 WBC 11.08* 11.79* 10.13 HEMOGLOBIN 8.5* 8.9* 8.6* HEMATOCRIT 27.2* 28.5* 27.7* PLATELETS 206 179 195 MCV 98.9* 100.7* 98.9* Lab 06/11/25 0810 06/10/25 1522 06/09/25 1426 06/08/25 0848 SODIUM 135* 134* -- 137 POTASSIUM 5.5* 5.3* -- 5.1 CHLORIDE 95* 94* -- 93* CO2 22.9 21.2* -- 24.1 ANION GAP 17.1* 18.8* -- 19.9* BUN 66.9* 60.9* -- 80.3* CREATININE 7.96* 7.36* -- 8.13* EGFR 6.5* 7.1* -- 6.3* GLUCOSE 98 120* -- 66 CALCIUM 8.2* 8.7 -- 8.8 MAGNESIUM 2.2 -- 2.0 -- PHOSPHORUS -- 8.9* -- -- Lab 06/11/25 0806/10/25 1522 06/08/25 0848 TOTAL PROTEIN 6.1 5.8* 5.9* ALBUMIN 3.1* 3.2* 2.8* GLOBULIN -- 2.6 3.1 ALT (SGPT) 455* 558* 982* AST (SGOT) 168* 226* 730* BILIRUBIN 0.4 0.4 0.6 INDIRECT BILIRUBIN 0.2 -- -- BILIRUBIN DIRECT 0.2 -- -- ALK PHOS 112 118* 111 Brief Urine Lab Results None Microbiology Results (last 10 days) Procedure Component Value - Date/Time Respiratory Panel PCR w/COVID-19(SARS-CoV-2) ZHANE/SALAZAR/MELY/PAD/COR/GELY 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, [employer]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 Swab in UTM/VTM, 2 HR TAT - Swab, Nasopharynx [[id number]] (Normal) Collected: 06/14/25 0713 Lab Status: Final result Specimen: Swab from Nasopharynx Updated: 06/14/25 0815 ADENOVIRUS, PCR Not Detected Coronavirus 229E Not Detected Coronavirus HKU1 Not Detected Coronavirus NL63 Not Detected Coronavirus OC43 Not Detected COVID19 Not Detected Human Metapneumovirus Not Detected Human Rhinovirus/Enterovirus Not Detected Influenza A PCR Not Detected Influenza B PCR Not Detected Parainfluenza Virus 1 Not Detected Parainfluenza Virus 2 Not Detected Parainfluenza Virus 3 Not Detected Parainfluenza Virus 4 Not Detected RSV, PCR Not Detected Bordetella pertussis pcr Not Detected Bordetella parapertussis PCR Not Detected Chlamydophila pneumoniae PCR Not Detected Mycoplasma pneumo by PCR Not Detected Narrative: In the setting of a positive respiratory panel with a viral infection PLUS a negative procalcitoninwithout other underlying concern for bacterial infection, consider observing off antibiotics or discontinuation of antibiotics and continue supportive care. If the respiratory panel is positive for atypical bacterial infection (Bordetella pertussis, Chlamydophila pneumoniae, or Mycoplasma pneumoniae), consider antibiotic de-escalation to target atypical bacterial infection. MRSA Screen, PCR (Inpatient) - Swab, Nares [[id number]] (Abnormal) Collected: 06/08/25 1905 Lab Status: Final result Specimen: Swab from Nares Updated: 06/08/25 2152 MRSA PCR Positive Narrative: The negative predictive value of this diagnostic test is high and should only be used to consider de-escalating anti-MRSA therapy. A positive result may indicate colonization with MRSA and must be correlated clinically. KIMANI AURIS PCR - Swab, Axilla Right, Axilla Left and Groin [[id number]] Collected: 06/07/25 0845 Lab Status: Final result Specimen: Swab from Axilla Right, Axilla Left and Groin Updated: 06/08/25 1715 KIMANI AURIS PCR (MITUL) Not Detected Blood Culture - Blood, Wrist, Left [[id number]] (Normal) Collected: 06/07/25 0603 Lab Status: Final result Specimen: Blood from Wrist, Left Updated: 06/12/25 0730 Blood Culture No growth at 5 days Narrative: Aerobic Bottle Only Less than seven (7) mL's of blood was collected. Insufficient quantity may yield false negative results. Blood Culture - Blood, Wrist, Left [[id number]] (Normal) Collected: 06/07/25 0601 Lab Status: Final result Specimen: Blood from Wrist, Left Updated: 06/12/25 0730 Blood Culture No growth at 5 days Narrative: Aerobic Bottle Only Less than seven (7) mL's of blood was collected. Insufficient quantity may yield false negative results. CT Soft Tissue Neck Without Contrast Result Date: 06/11/2025 CT SOFT TISSUE NECK WO CONTRAST Date of Exam: 06/10/2025 10:57 PM EDT Indication: swelling and pain.Comparison: 06/06/2025 Technique: Axial CT images were obtained of the neck without contrast administration. Reconstructed coronal and sagittal images were also obtained. Automated exposure control and iterative construction methods were used. Findings: Visualized intracranial contents and globes and orbits appear within normal limits. Nasopharynx is normal. Oropharynx including base of tongue andepiglottis appear within normal limits. Larynx and piriform sinuses appear within normal limits. Visualized upper trachea and esophagus appear normal. Thyroid gland appears within normal limits. Bilateral submandibular glands are within There is subcutaneous fat stranding overlying the left parotidgland. The parotid glands are largely fatty replaced. There is edema and fat stranding within the left parotid gland consistent with parotitis. No definite parotid duct dilation or stone identified. No soft tissue mass visualized. Right parotid gland appears within limits. No pathologically enlarged cervical lymph nodes. There is a left internal jugular central venous catheter in place. There areright subclavian and internal jugular vein stents.. Degenerative changes are noted of the cervical spine. No lytic or sclerotic bony lesion. There is complete opacification of the left maxillary sinus unchanged. There is a polyp or mucous retention cyst within the posterior right maxillary sinus. Partial opacification of the left ethmoid air cells. There is complete opacification of the left mastoid air cells. Left middle ear cavity appears clear. There is patchy airspace disease in the left upper lobe, grossly unchanged from prior study consistent with pneumonia. Impression: 1. Enlargement and fat stranding in and around the left parotid gland consistent with changes of parotiditis. No definite obstructing stone identified. 2. No cervical lymphadenopathy. 3. Changes of chronic sinusitis and left mastoiditis. 4. No significant change in left upper lobe airspace disease compatible with pneumonia. Electronically Signed: Jose Jesus MD 06/11/2025 7:44 AM EDT Workstation ID: [id number] FL ERCP pancreatic and biliary ducts Result Date: 06/08/2025 FL ERCP PANCREATIC AND BILIARY DUCTS Date of Exam: 06/08/2025 10:49 AM EDT Indication: ENDOSCOPIC RETROGRADE CHOLANGIOPANCREATOGRAPHY. Comparison: None available. Technique: A series of radiographic digital spot films were obtained in conjunction with an endoscopic catheterization of the biliary andpancreatic ductal system, performed by the linux network administrator. Fluoroscopic Time: 5 minutes 57 seconds Number of Images: 10 Findings: Fluoroscopy demonstrates filling of the bile ducts. Impression: Fluoroscopy demonstrates filling of the bile ducts. Please see procedure report for full findings. Electronically Signed: Migue Mcfarlane MD 06/08/2025 3:48 PM EDT Workstation ID: [id number] Duplex Carotid Ultrasound CAR Result Date: 06/07/2025 Right internal carotid artery demonstrates a less than 50% stenosis. Right vertebral artery was notvisualized. Left internal carotid artery demonstrates a less than 50% stenosis. Antegrade left vertebral flow. 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 FEES - Fiberoptic Endo Eval Swallow Result Date: 06/07/2025 This procedure was auto-finalized with no dictation required. MRI abdomen wo contrast mrcp Result Date: 06/07/2025 MRI ABDOMEN WO CONTRAST MRCP Date of Exam: 06/07/2025 9:28 AM EDT Indication: CBD dilation with choledocholithiasis. Comparison: CT abdomen pelvis 06/06/2025. Technique: Routine multiplanar/multisequence images of the abdomen were obtained with MRCP sequences without contrast administration. Findings: Motion-degraded exam. Left lower lobe consolidation with trace left pleural effusion. Heart appears enlarged. No morphologic changes of chronic liver disease. No evidence of hepatic steatosis. No evidence of focal liver lesion on this noncontrast exam. Cholelithiasis. Mild gallbladder distention without wall thickening or pericholecystic fluid. Intra and extrahepatic biliary ductal dilatation tothe level of the ampulla with common bile duct measuring 15 mm. 7 mm ovoid filling defect within the lower common bile duct consistent with choledocholithiasis. No pancreatic ductal dilatation. No findings of acute pancreatitis. Spleen is normal in size. Bilateral renal atrophy. Subcentimeter hemorrhagic/proteinaceous foci along the left kidney may represent a hemorrhagic/proteinaceous cyst, though incompletely characterized on this noncontrast exam. Otherwise there are multiple bilateral renalcysts are overall simple-appearing. No hydronephrosis. No dilated bowel loops within the [id number]. No free fluid in the abdomen. No pathologically enlarged lymph nodes. No abdominal aortic aneurysm. Atherosclerosis. No body wall abnormality. Multilevel spondylosis. No acute or suspicious osseous abnormalities evident on this noncontrast exam. Impression: Choledocholithiasis with a 7 mm stone in the lower common bile duct. Intra and extrahepatic biliary ductal dilatation with common bile duct measuring 15 mm. Correlate with serum bilirubinand consider ERCP. Cholelithiasis without evidence of acute cholecystitis. Left lower lobe consolidation with trace left pleural effusion, suggestive of pneumonia. Chronic/ancillary findings as above. Electronically Signed: Preet Crowley MD 06/07/2025 10:26 AM EDT Workstation ID: [id number] MRI Brain Without Contrast Result Date: 06/07/2025 MRI BRAIN WO CONTRAST Date of Exam: 06/07/2025 9:17 AM EDT Indication: Stroke, follow up Left occipital stroke seen on CT scan. Comparison: Head CT dated 06/06/2025 Technique: Routine multiplanar/multisequence sequence images of the brain were obtained without contrast administration. FINDINGS: Thereis a tiny focus of DWI hyperintense signal within the left occipital lobe (series 5, image 86), concerning for tiny acute infarct. Questionable additional punctate cortical infarct within the left centrum semiovale (series 5, image 96). Foci of T2/FLAIR signal hyperintensity are seen within the bilateral hemispheric white matter. There is cortical atrophy with prominent sulcation and ventriculomegaly. There is encephalomalacia involving the bilateral cerebellum and left occipital lobe, likely related to remote infarcts. Midline structures appear unremarkable. No significant mass effect, intracranial hemorrhage, or hydrocephalus is identified. The visualized intracranial flow-voids appear unr emarkable. There is pansinus mucosal thickening with complete opacification of the left maxillary sinus. Bilateral mastoid effusions are also seen. Bilateral lens prostheses noted. The visualized superficial soft tissues and cervical spine demonstrate no significant abnormality. 1.Findings concerning for tiny acute infarct within the left occipital lobe (series 5, image 86). Questionable additional punctate cortical acute/subacute infarct within the left centrum semiovale (series 5, image 96). 2.Additional findings compatible with chronic microvascular ischemic change and diffuse cortical atrophy. 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 3.Pansinus mucosal thickening and bilateral mastoid effusions. Electronically Signed: Vimal Lares MD 06/07/2025 10:22 AM EDT Workstation ID: [id number] CT Outside Films Result Date: 06/06/2025 This procedure was auto-finalized with no dictation required. CT Outside Abd/Pelvis Result Date: 06/06/2025 This procedure was auto-finalized with no dictation required. CT Outside Head Result Date: 06/06/2025 This procedure was auto-finalized with no dictation required. CT Outside Films Result Date: 06/06/2025 This procedure was auto-finalized with no dictation required. CT Outside Neck Result Date: 06/06/2025 This procedure was auto-finalized with no dictation required. Results for orders placed during the hospital encounter of 06/06/25 Duplex Carotid Ultrasound CAR 06/07/2025 5:15 PM Interpretation Summary Right internal carotid artery demonstrates a less than 50% stenosis. Right vertebral artery was not visualized. Left internal carotid artery demonstrates a less than 50% stenosis. Antegrade left vertebral flow. Results for orders placed during the hospital encounter of 06/06/25 Duplex Carotid Ultrasound CAR 06/07/2025 5:15 PM Interpretation Summary Right internal carotid artery demonstrates a less than 50% stenosis. Right vertebral artery was not visualized. Left internal carotid artery demonstrates a less than 50% stenosis. Antegrade left vertebral flow. Results for orders placed during the hospital encounter of 06/06/25 Adult Transesophageal Echo 3D (JARED) W/ Cont If Necessary Per Protocol 06/11/2025 3:04 PM Interpretation Summary Left ventricular ejection fraction appears to be 56 - 60%. No evidence of a left atrial appendage thrombus was present. A catheter is present in the right atrium. Severe mitral annular calcification is present. Mild to moderate mitral valve regurgitation is present. No significant mitral valve stenosis is present. There is moderate calcification of the aortic valve. Moderate aortic valve regurgitation is present. Moderate aortic valve stenosis is present. Mean gradient 24mmHg Moderate tricuspid valve regurgitation is present. Estimated right ventricular systolic pressure from tricuspid regurgitation is moderately elevated (45-55 mmHg). There is moderate, (grade 3) plaque in the aortic arch present. Mild dilation of the aortic root is present. Aortic root measures 4.1 cm. There is moderate, (grade3) plaque in the aortic arch present. No valvular vegetations noted. No echocardiographic evidence of endocarditis I supervised and directed an independent trained observer with the assistance of monitoring the patient's level of consciousness and physiological status throughout the procedure. Intraoperative service time of 20 minutes I have personally reviewed the therapy plans: [x] PT/OT/ ST Therapy Plans Plan for Follow-up of Pending Labs/Results: Discharge Details Discharge Medications New Medications Instructions Start Date albuterol 0.63 MG/3ML nebulizer solution Commonly known as: ACCUNEB 0.63 mg, Nebulization, Every 4 Hours PRN amLODIPine 10 MG tablet Commonly known as: NORVASC 10 mg, Oral, Every 24 Hours Scheduled Start Date: June 15, 2025 aspirin 81 MG chewable tablet 81 mg, Oral, Daily Start Date: June 15, 2025 oxyCODONE-acetaminophen 5-325 MG per tablet Commonly known as: PERCOCET 1 tablet, Oral, Every 4 Hours PRN polyethylene glycol 17 g packet Commonly known as: MIRALAX 17 g, Oral, Daily PRN sennosides-docusate 8.6-50 MG per tablet Commonly known as: PERICOLACE 2 tablets, Oral, 2 Times Daily PRN vancomycin 1,000 mg in sodium chloride 0.9 % 250 mL IVPB 1,000 mg, Intravenous, 3 Times Weekly Start Date: June 15, 2025 Changes to Medications Instructions Start Date apixaban 5 MG tablet tablet Commonly known as: ELIQUIS What changed: medication strength how much to take 5 mg, Oral, Every 12 Hours Scheduled traZODone 100 MG tablet Commonly known as: DESYREL What changed: when to take this reasons to take this 100 mg, Oral, Nightly PRN Continue These Medications Instructions Start Date acetaminophen 500 MG tablet Commonly known as: TYLENOL 1,000 mg, Oral, 4 Times Daily PRN amiodarone 200 MG tablet Commonly known as: PACERONE 200 mg, Oral, 2 Times Daily atorvastatin 80 MG tablet Commonly known as: LIPITOR 80 mg, Oral, Nightly benzonatate 100 MG capsule Commonly known as: TESSALON 100 mg, Oral, 3 Times Daily PRN [place] 0.44-20.625 % ointment ointment Generic drug: menthol-zinc oxide 1 Application, Topical, Daily, Cleanse periwound/sacrum, with NS and apply ointment to periwound and cover with ABD calcium acetate 667 MG capsule capsule Commonly known as: PHOS BINDER) 667 mg, Oral, 3 Times Daily cetirizine 10 MG tablet Commonly known as: zyrTEC 10 mg, Oral, Nightly Cough Drops 5.8 MG lozenge Generic drug: Menthol 1 lozenge, Mouth/Throat, Every 4 Hours PRN fluticasone 27.5 MCG/SPRAY nasal spray Commonly known as: VERAMYST 2 sprays, Nasal, Nightly guaiFENesin 600 MG 12 hr tablet Commonly known as: MUCINEX 600 mg, Oral, 2 Times Daily, 30-600mg 1 tablet twice daily between 1075-7412 loperamide 2 MG capsule Commonly known as: IMODIUM 2 mg, Oral, 4 Times Daily PRN midodrine 5 MG tablet Commonly known as: PROAMATINE 10 mg, Oral, 3 Times Weekly, Mon, Wed, Sat between 2916-4829 montelukast 10 MG tablet Commonly known as: SINGULAIR 10 mg, Oral, Nightly ondansetron 4 MG tablet Commonly known as: ZOFRAN 4 mg, Oral, 3 Times Daily PRN pantoprazole 40 MG EC tablet Commonly known as: PROTONIX 40 mg, Oral, Daily ProSource No Carb liquid 30 mL, Oral, Daily CHRISTINE-CLAUDE PO 1 tablet, Oral, Daily vitamin B-12 1000 MCG tablet Commonly known as: CYANOCOBALAMIN 1,000 mcg, Oral, Daily Zinc Sulfate 220 (50 Zn) MG tablet 1 tablet, Oral, Daily Stop These Medications promethazine-dextromethorphan 6.25-15 MG/5ML syrup Commonly known as: PROMETHAZINE-DM No Known Allergies Discharge Disposition: Long Term Facility (DC - External) Diet: Hospital: Diet Order Procedures Diet: Liquid; Full Liquid; Fluid Consistency: Thin (IDDSI 0) Standing Status: Standing Number of Occurrences: 1 Diets:: Liquid Liquid Diet:: Full Liquid Fluid Consistency:: Thin (IDDSI 0) Diet Instructions Diet: Cardiac Diets, Renal Diets; Healthy Heart (2-3 Na+); Thin (IDDSI 0); Low Sodium (2-3g), Low Potassium, Low Phosphorus Discharge Diet: Cardiac Diets Renal Diets Cardiac Diet: Healthy Heart (2-3 Na+) Fluid Consistency: Thin (IDDSI 0) Renal Diet: Low Sodium (2-3g) Low Potassium Low Phosphorus Activity: Activity Instructions Activity as Tolerated Restrictions or Other Recommendations: CODE STATUS: Code Status and Medical Interventions: No CPR (Do Not Attempt to Resuscitate); Limited Support; No intubation (DNI) Ordered at: 06/11/25 1432 Code Status (Patient has no pulse and is not breathing): No CPR (Do Not Attempt to Resuscitate) Medical Interventions (Patient has pulse or is breathing): Limited Support Medical Intervention Limits: No intubation (DNI) Level Of Support Discussed With: Patient No future appointments. Additional Instructions for the Follow-ups that You Need to Schedule Ambulatory Referral to Neurology As directed 4 to 8-week stroke clinic follow-up please Ambulatory referral for Screening EGD As directed Stent removal, resweep duct, choledocholithiasis, stent left given large amount of sludge with someresidual stone fragments at the end and to decrease chance of sphincterotomy bleed as patient is onanticoagulation (also ESRD on HD) Schedule repeat ERCP in 6-8 weeks Order Comments: Stent removal, resweep duct, choledocholithiasis, stent left given large amount of sludge with some residual stone fragments at the end and to decrease chance of sphincterotomy bleed as patient is on anticoagulation (also ESRD on HD) Discharge Follow-up with PCP As directed Currently Documented PCP: Jeffrey Sun MD PCP Follow Up Details: within the week Discharge Follow-up with Specified Provider: dr. guerrero; 2 Weeks As directed To: dr. guerrero Follow Up: 2 Weeks Discharge Follow-up with Specified Provider: stroke neuro; 6 Weeks As directed To: stroke neuro Follow Up: 6 Weeks Sophie Flor APRN 06/14/25 Time Spent on Discharge: I spent 45 minutes on this discharge activity which included: [id number] with the patient, reviewing the data in the system, coordination of the care with the nursing staff as well as consultants, documentation, and entering orders. Electronically signed by Sophie Flor APRN, 06/14/25, 12:10 PM EDT. Cosigned by Bell Carmen MD at 06/14/2025 11:01 PM EDT Associated attestation - Bell Carmen MD - 06/14/2025 11:01 PM EDT I have reviewed this documentation and agree. * Bell Carmen MD - 06/13/2025 10:01 AM EDT Images from the original note were not included. [facility] DISCHARGE SUMMARY Patient Name: Alexa Fuentes : 1950 Date of Admission: 06/06/2025 Date of Discharge: 06/13/25 Length of Stay: 6 Primary Care Physician: Jeffrey Sun MD Consults Date and Time Order Name Status Description 06/08/2025 3:14 PM Inpatient Infectious Diseases Consult Completed 06/08/2025 2:37 PM Inpatient General Surgery Consult Completed 06/07/2025 4:37 AM Inpatient Palliative Care Consult Completed 06/06/2025 11:50 PM Inpatient Gastroenterology Consult Completed 06/06/2025 8:30 PM Inpatient Nephrology Consult Completed Hospital Course Presenting Problem: Occipital stroke [I63.9] Active Hospital Problems Diagnosis POA Occipital stroke [I63.9] Yes Choledocholithiasis [K80.50] Yes Acute respiratory failure with hypoxia [J96.01] Yes CAP (community acquired pneumonia) [J18.9] Yes ESRD (end stage renal disease) [N18.6] Yes Atrial fibrillation [I48.91] Yes Resolved Hospital Problems No resolved problems to display. Hospital Course: Alexa Fuentes is a 74-year-old male with end-stage renal disease on hemodialysis, atrial fibrillation, hypertension, hyperlipidemia, COPD, and a history of stroke, who was admitted for evaluation andmanagement of acute altered mental status, found to have an occipital stroke, sepsis secondary to St reptococcus pneumoniae bacteremia, choledocholithiasis with biliary obstruction, and acute hypoxic respiratory failure. 1. Occipital Stroke and Acute Encephalopathy He presented with acute altered mental status and unresponsiveness after hemodialysis, with imagingrevealing a late acute/subacute left occipital infarct and chronic infarcts in the bilateral cerebellum and left occipital lobe. He was not a candidate for thrombolytic therapy due to recent apixabanuse. MRI confirmed a tiny acute infarct in the left occipital lobe and questionable additional punctate infarct in the left centrum semiovale, with chronic microvascular changes and encephalomalacia.His encephalopathy was multifactorial, attributed to stroke, sepsis, hypoxia, and ESRD, and improved during hospitalization, with mental status returning to baseline. He was managed with antiplateletand anticoagulation therapy, with apixaban held mark- procedurally and later resumed at an increaseddose following multidisciplinary recommendations. Speech therapy identified moderate dysarthria andmild cognitive-linguistic disorder, with baseline cognitive impairment and new short- term memory deficits; he was recommended for continued therapy at a correction facility. 2. Sepsis, Community-Acquired Pneumonia, and Streptococcus pneumoniae Bacteremia He was found to have sepsis with leukocytosis, hypoxia, and altered mental status, with blood cultures from the outside hospital positive for Streptococcus pneumoniae in the setting of left lower lobe consolidation on imaging. He was treated with ceftriaxone and metronidazole, with metronidazole discontinued on 06/10. Infectious disease was consulted for management of bacteremia and recommended a transesophageal echocardiogram, which showed no evidence of endocarditis. He remained afebrile throughout the admission, and blood cultures after transfer remained negative. He developed left parotitis on 06/11, with CT showing left parotid inflammation without stone or abscess; daptomycin was initiated and later discontinued in favor of vancomycin with dialysis due to concern for MRSA. MRSA PCR from nares was positive, and vancomycin dosing was managed by pharmacy with goal trough 20-25 mcg/mL, with loading and maintenance doses scheduled to coincide with dialysis sessions. Parotid gland swelling and tenderness improved by 06/12. 3. Choledocholithiasis, Biliary Obstruction, and Surgical Management Imaging revealed choledocholithiasis with a 7 mm stone in the lower common bile duct, intra- and extrahepatic biliary ductal dilation, and cholelithiasis without cholecystitis. He underwent ERCP withstone extraction and stent placement on 06/08, followed by laparoscopic cholecystectomy on 06/09 without complications. Postoperatively, he had mild abdominal pain and bloating that resolved, and his diet was advanced as tolerated. Liver enzymes, initially markedly elevated, trended down post-intervention. Surgical wounds were clean, dry, and intact, and he was recommended to follow up with surgeryin 2 weeks after discharge. No antibiotics were needed at discharge from a surgical perspective. 4. Acute Hypoxic Respiratory Failure He required supplemental oxygen for hypoxia on admission, initially up to 3-4 L/min, attributed to pneumonia and fluid overload in the setting of ESRD. He did not require home oxygen prior to admission. His respiratory status improved with antibiotics, pulmonary toilet, and diuresis via dialysis. He reported no shortness of breath at discharge, and oxygen requirements were weaned as tolerated. 5. End-Stage Renal Disease on Hemodialysis He continued his scheduled hemodialysis sessions during hospitalization, with some sessions complicated by hypotension and poor catheter function requiring cathflo instillation. He remained on a renal diet with fluid restriction. Nephrology followed for ongoing management, and coordination was [facility]for outpatient [facility] at [facility]. 6. 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 Apixaban was held mark-procedurally for ERCP and cholecystectomy, then resumed and increased to 5 mg BID after multidisciplinary review. No episodes of rapid ventricular response or hemodynamic instability were docu mented. 7. Additional Hospital Course Issues - Left parotitis developed on 06/11, confirmed by CT, and was managed with antibiotics targeting MRSA; swelling and tenderness improved by 06/12. - He had a healing stage 4 pressure injury to the coccyx, present on admission, managed with wound care protocols. - He remained bedbound at baseline, dependent for most ADLs, and was recommended for discharge to [facility] facility for continued rehabilitation and care. - Code status was clarified during admission, with DNR/DNI and limited support orders in place at discharge. 8. Resolved Issues - Acute encephalopathy resolved prior to discharge, with return to baseline mental status. - Abdominal pain and postoperative symptoms improved, and he tolerated diet advancement. - Leukocytosis and transaminitis improved following source control and antimicrobial therapy. This summary reflects the major problems and interventions during the hospitalization, with ongoingneeds for dialysis, anticoagulation, wound care, and rehabilitation at the time of discharge. Discharge Follow Up Recommendations for labs/diagnostics: See Dr Guerrero in 2 weeks HD MWF 4 more doses of vancomycin with dialysis Procedure(s): CHOLECYSTECTOMY LAPAROSCOPIC Day of Discharge HPI: Patient tired after dialysis, no BM yet. Vital Signs: Temp: [97.8 ??F (36.6 ??C)-98.3 ??F (36.8 ??C)] 97.9 ??F (36.6 ??C) Heart Rate: [61-75] 71 Resp: [15-18] 18 BP: (148-189)/(65-113) 167/86 Physical Exam: Patient is alert and talkative in no distress at rest, tired pale Neck is without mass or JVD Heart is Reg wo murmur Lungs are clear wo wheeze or crackle Abd is soft without HSM or mass, not tender or distended MAEW Skin is without rash Neurologic exam in nonfocal Mood is appropriate Pertinent and/or Most Recent Results Results from last 7 days Lab Units 06/11/25 0806/10/25 1522 06/08/25 0848 06/07/25 0057 WBC 10*3/mm3 11.08* 11.79* 10.13 18.26* HEMOGLOBIN g/dL 8.5* 8.9* 8.6* 9.0* HEMATOCRIT % 27.2* 28.5* 27.7* 28.1* PLATELETS 10*3/mm3 206 179 195 120* SODIUM mmol/L 135* 134* 137 136 POTASSIUM mmol/L 5.5* 5.3* 5.1 5.0 CHLORIDE mmol/L 95* 94* 93* 93* CO2 mmol/L 22.9 21.2* 24.1 27.9 BUN mg/dL 66.9* 60.9* 80.3* 52.4* CREATININE mg/dL 7.96* 7.36* 8.13* 6.07* GLUCOSE mg/dL 98 120* 66 77 CALCIUM mg/dL 8.2* 8.7 8.8 9.0 Results from last 7 days Lab Units 06/11/25 0810 06/10/25 1522 06/08/25 0848 06/07/25 0057 BILIRUBIN mg/dL 0.4 0.4 0.6 0.9 ALK PHOS U/L 112 118* 111 102 ALT (SGPT) U/L 455* 558* 982* 652* AST (SGOT) U/L 168* 226* 730* 558* Results from last 7 days Lab Units 06/07/25 0057 CHOLESTEROL mg/dL 62 TRIGLYCERIDES mg/dL 58 HDL CHOL mg/dL 33* LDL CHOL mg/dL 15 Results from last 7 days Lab Units 06/07/25 0105 06/07/25 0057 TSH uIU/mL -- 0.534 HEMOGLOBIN A1C % 4.9 -- Brief Urine Lab Results None Blood Culture Date Value Ref Range Status 06/07/2025 No growth at 5 days Final 06/07/2025 No growth at 5 days Final Adult Transesophageal Echo 3D (JARED) W/ Cont If Necessary Per Protocol Addendum Date: 06/11/2025 Left ventricular ejection fraction appears to be 56 - 60%. No evidence of a left atrial appendage thrombus was present. A catheter is present in the right atrium. Severe mitral annular calcification is present. Mild to moderate mitral valve regurgitation is present. No significant mitral valve stenosis is present. There is moderate calcification of the aortic valve. Moderate aortic valve regurgitation is present. Moderate aortic valve stenosis is present. Mean gradient 24mmHg Moderate tricuspidvalve regurgitation is present. Estimated right ventricular systolic pressure from tricuspid regurgitation is moderately elevated (45-55 mmHg). There is moderate, (grade 3) plaque in the aortic arch p resent. Mild dilation of the aortic root is present. Aortic root measures 4.1 cm. There is moderate, (grade 3) plaque in the aortic arch present. No valvular vegetations noted. No echocardiographic evidence of endocarditis I supervised and directed an independent trained observer with the assistance of monitoring the patient's level of consciousness and physiological status throughout the procedure. Intraoperative service time of [address] Soft Tissue Neck Without Contrast Result Date: 06/11/2025 Impression: Impression: 1. Enlargement and fat stranding in and around the left parotid gland consistent with changes of parotiditis. No definite obstructing stone identified. 2. No cervical lymphadenopathy. 3. Changes of chronic sinusitis and left mastoiditis. 4. No significant change in left upper lobe airspace disease compatible with pneumonia. Electronically Signed: Jose Jesus MD 06/11/2025 7:44 AM EDT Workstation ID: [id number] ERCP pancreatic and biliary ducts Result Date: 06/08/2025 Impression: Impression: Fluoroscopy demonstrates filling of the bile ducts. Please see procedure report for full findings. Electronically Signed: Migue Mcfarlane MD 06/08/2025 3:48 PM EDT Workstation ID: [id number] MRI abdomen wo contrast mrcp Result Date: 06/07/2025 Impression: Impression: Choledocholithiasis with a 7 mm stone in the lower common bile duct. Intra and extrahepatic biliary ductal dilatation with common bile duct measuring 15 mm. Correlate with serum bilirubin and consider ERCP. Cholelithiasis without evidence of acute cholecystitis. Left lower lobe consolidation with trace left pleural effusion, suggestive of pneumonia. Chronic/ancillary findings as above. Electronically Signed: Preet Crowley MD 06/07/2025 10:26 AM EDT Workstation ID: [id number] MRI Brain Without Contrast Result Date: 06/07/2025 Impression: 1.Findings concerning for tiny acute infarct within the left occipital lobe (series 5, image 86). Questionable additional punctate cortical acute/subacute infarct within the left centrum semiovale (series 5, image 96). 2.Additional findings compatible with chronic microvascular ischemicchange and diffuse cortical atrophy. 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 3.Pansinus mucosal thickening and bilateral mastoid effusions. Electronically Signed:Vimal Lares MD 06/07/2025 10:22 AM EDT Workstation ID: [id number] Results for orders placed during the hospital encounter of 06/06/25 Adult Transesophageal Echo 3D (JARED) W/ Cont If Necessary Per Protocol 06/11/2025 3:04 PM Interpretation Summary Left ventricular ejection fraction appears to be 56 - 60%. No evidence of a left atrial appendage thrombus was present. A catheter is present in the right atrium. Severe mitral annular calcification is present. Mild to moderate mitral valve regurgitation is present. No significant mitral valve stenosis is present. There is moderate calcification of the aortic valve. Moderate aortic valve regurgitation is present. Moderate aortic valve stenosis is present. Mean gradient 24mmHg Moderate tricuspid valve regurgitation is present. Estimated right ventricular systolic pressure from tricuspid regurgitation is moderately elevated (45-55 mmHg). There is moderate, (grade 3) plaque in the aortic arch present. Mild dilation of the aortic root is present. Aortic root measures 4.1 cm. There is moderate, (grade3) plaque in the aortic arch present. No valvular vegetations noted. No echocardiographic evidence of endocarditis I supervised and directed an independent trained observer with the assistance of monitoring the patient's level of consciousness and physiological status throughout the procedure. Intraoperative service time of 20 minutes Results for orders placed during the hospital encounter of 06/06/25 Duplex Carotid Ultrasound CAR 06/07/2025 5:15 PM Interpretation Summary Right internal carotid artery demonstrates a less than 50% stenosis. Right vertebral artery was not visualized. Left internal carotid artery demonstrates a less than 50% stenosis. Antegrade left vertebral flow. I have personally reviewed the therapy plans: [x] PT/OT/ ST Therapy Plans Pending Labs Order Current Status Respiratory Panel PCR w/COVID-19(SARS-CoV-2) ZHANE/SALAZAR/MELY/PAD/COR/GELY In-House, [employer] Swab in UTM/VTM, 2 HR TAT - Swab, Nasopharynx Collected (06/11/25 1414) Discharge Details Discharge Medications ASK your doctor about these medications Instructions Start Date acetaminophen 500 MG tablet Commonly known as: TYLENOL 1,000 mg, Oral, 4 Times Daily PRN amiodarone 200 MG tablet Commonly known as: PACERONE 200 mg, Oral, 2 Times Daily apixaban 2.5 MG tablet tablet Commonly known as: ELIQUIS 2.5 mg, Oral, Every 12 Hours Scheduled atorvastatin 80 MG tablet Commonly known as: LIPITOR 80 mg, Oral, Nightly benzonatate 100 MG capsule Commonly known as: TESSALON 100 mg, Oral, 3 Times Daily PRN [place] 0.44-20.625 % ointment ointment Generic drug: menthol-zinc oxide 1 Application, Topical, Daily, Cleanse periwound/sacrum, with NS and apply ointment to periwound and cover with ABD calcium acetate 667 MG capsule capsule Commonly known as: PHOS BINDER) 667 mg, Oral, 3 Times Daily cetirizine 10 MG tablet Commonly known as: zyrTEC 10 mg, Oral, Nightly Cough Drops 5.8 MG lozenge Generic drug: Menthol 1 lozenge, Mouth/Throat, Every 4 Hours PRN fluticasone 27.5 MCG/SPRAY nasal spray Commonly known as: VERAMYST 2 sprays, Nasal, Nightly guaiFENesin 600 MG 12 hr tablet Commonly known as: MUCINEX 600 mg, Oral, 2 Times Daily, 30-600mg 1 tablet twice daily between 5762-2111 loperamide 2 MG capsule Commonly known as: IMODIUM 2 mg, Oral, 4 Times Daily PRN midodrine 5 MG tablet Commonly known as: PROAMATINE 10 mg, Oral, 3 Times Weekly, Mon, Wed, Sat between 9530-4881 montelukast 10 MG tablet Commonly known as: SINGULAIR 10 mg, Oral, Nightly ondansetron 4 MG tablet Commonly known as: ZOFRAN 4 mg, Oral, 3 Times Daily PRN pantoprazole 40 MG EC tablet Commonly known as: PROTONIX 40 mg, Oral, Daily promethazine-dextromethorphan 6.25-15 MG/5ML syrup Commonly known as: PROMETHAZINE-DM 5 mL, Oral, 4 Times Daily PRN ProSource No Carb liquid 30 mL, Oral, Daily CHRISTINE-CLAUDE PO 1 tablet, Oral, Daily traZODone 100 MG tablet Commonly known as: DESYREL 100 mg, Oral, Nightly vitamin B-12 1000 MCG tablet Commonly known as: CYANOCOBALAMIN 1,000 mcg, Oral, Daily Zinc Sulfate 220 (50 Zn) MG tablet 1 tablet, Oral, Daily Discharge Disposition: Discharge Diet: Regular Discharge Activity: As Tolerated Special Instructions: No future appointments. Additional Instructions for the Follow-ups that You Need to Schedule Ambulatory Referral to Neurology As directed 4 to 8-week stroke clinic follow-up please Ambulatory referral for Screening EGD As directed Stent removal, resweep duct, choledocholithiasis, stent left given large amount of sludge with someresidual stone fragments at the end and to decrease chance of sphincterotomy bleed as patient is onanticoagulation (also ESRD on HD) Schedule repeat ERCP in 6-8 weeks Order Comments: Stent removal, resweep duct, choledocholithiasis, stent left given large amount of sludge with some residual stone fragments at the end and to decrease chance of sphincterotomy bleed as patient is on anticoagulation (also ESRD on HD) Electronically signed by Bell Carmen MD 06/13/25 10:01 EDT * Gladis Carltonissa, OT - 06/07/2025 1:14 PM EDT Images from the original note were not included. Acute Care - Occupational Therapy Discharge [facility] Patient Name: Alexa Fuentes : 1950 Today's Date: 06/07/2025 Admit Date: 06/06/2025 Visit Dx: ICD-10-CM ICD-9-CM 1. Dysphagia, unspecified type R13.10 787.20 Patient Active Problem List Diagnosis Occipital stroke Choledocholithiasis Acute respiratory failure with hypoxia CAP (community acquired pneumonia) ESRD (end stage renal disease) Atrial fibrillation History reviewed. No pertinent past medical history. Past Surgical History: Procedure Laterality Date COLONOSCOPY KNEE SURGERY Right General Information Row Name 06/07/25 1449 OT Time and Intention Document Type discharge evaluation/summary - Mode of Treatment occupational therapy - Row Name 06/07/25 1449 General Information Patient Profile Reviewed yes -MC Prior Level of Function independent:;feeding;grooming;max assist:;dependent:;bed mobility;transfer;w/c or scooter Pt relies on facility staff to assist w/ dressing, bathing, & grooming; reports able to feed himself. Relies on mechanical lift for transfers to/from w/c, reports he only transfers to w/c for dialysis on M,W,&F. - Existing Precautions/Restrictions fall - Barriers to Rehab medically complex;previous functional deficit - Row Name 06/07/25 1449 Living Environment Current Living Arrangements residential facility - People in Home facility resident - Row Name 06/07/25 1449 Home Main Entrance Number of Stairs, Main Entrance none - Row Name 06/07/25 1449 Stairs Within Home, Primary Number of Stairs, Within Home, Primary none - Row Name 06/07/25 144 Cognition Orientation Status (Cognition) oriented x 3 - Row Name 06/07/25 1449 Safety Issues/Impairments Affecting Functional Mobility Safety Issues Affecting Function (Mobility) awareness of need for assistance;insight into deficits/self-awareness;problem-solving;judgment - User Alvarez (r) = Recorded By, (t) = Taken By, (c) = Cosigned By Initials Name Provider Type Licha Carlton OT Occupational Therapist Mobility/ADL's Row Name 06/07/25 145 Bed Mobility Bed Mobility scooting/bridging - Scooting/Bridging [place] (Bed Mobility) dependent (less than 25% patient effort);2 person assist;verbal cues - Bed Mobility, Safety Issues decreased use of arms for pushing/pulling;decreased use of legs for bridging/pushing - Assistive Device (Bed Mobility) repositioning sheet;other (see comments) bed in trendelenburg - Row Name 06/07/25 145 Transfers Comment, (Transfers) Pt is bedbound at baseline & relies on mechanical lift & assist from facility staff for transfers to/from w/c. Pt awaiting echo & carotid duplex but educated on importance of OOB activity & sitting UIC. - Row Name 06/07/25 145 Activities of Daily Living BADL Assessment/Intervention grooming;feeding - Row Name 06/07/25 145 Hygiene Care Oral Care teeth brushed - regular toothbrush - Row Name 06/07/25 145 Grooming Assessment/Training [place] Level (Grooming) oral care regimen;dependent (less than 25% patient effort) - Position (Grooming) sitting up in bed - Comment, (Grooming) Pt w/ minimal effort to asssit w/ brushing teeth, demo'd ability to reach mouthw/ B hands but req dep A. - Row Name 06/07/251452 Self-Feeding Assessment/Training Comment, (Feeding) Pt reports no issues with holding onto utensils/reaching mouth to feed himself. 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 - User Alvarez (r) = Recorded By, (t) = Taken By, (c) = Cosigned By Initials Name Provider Type Licha Carlton, SEVERO Occupational Therapist Obj/Interventions Row Name 06/07/25 145 Sensory Assessment (Somatosensory) Sensory Assessment (Somatosensory) UE sensation intact - Row Name 06/07/25 145 Vision Assessment/Intervention Visual Impairment/Limitations WFL - Row Name 06/07/25 145 Range of Motion Comprehensive General Range of Motion upper extremity range of motion deficits identified - Comment, General Range of Motion R shoulder ROM limited from remote humerus fx (pt/son reports 7 years ago), L trigger finger (pt able to release himself) -[facility] Name 06/07/25 145 Strength Comprehensive (MMT) General Manual Muscle Testing (MMT) Assessment upper extremity strength deficits identified - Comment, General Manual Muscle Testing (MMT) Assessment R shoulder limited assessment d/t pain, otherwise BUE grossly 5/5 -[facility] Name 06/07/25 145 Motor Skills Motor Skills coordination - Coordination WFL;bilateral;upper extremity;finger to nose -[facility] Name 06/07/25 145 Balance Comment, Balance Pt declined any OOB activity - User Alvarez (r) = Recorded By, (t) = Taken By, (c) = Cosigned By Initials Name Provider Type Licha Mercado OT Occupational Therapist Goals/Plan No documentation. Clinical Impression [facility] Name 06/07/251552 Plan of Care Review Plan of Care Reviewed With patient;son - Outcome Evaluation Pt at baseline functional status w/ ADL independence. No further skilled IPOT services warranted at this time. Rec continued activity as tolerated w/ nursing staff, return to [facility] at d/c. -[facility] Name 06/07/25 803 Therapy Assessment/Plan (OT) Criteria for Skilled Therapeutic Interventions Met (OT) does not meet criteria for skilled intervention - Therapy Frequency (OT) evaluation only -[facility] 06/07/251552 Therapy Plan Review/Discharge Plan (OT) Anticipated Discharge Disposition (OT) [facility] -[facility] Name 06/07/25 355 Vital Signs O2 Delivery Pre Treatment room air - O2 Delivery Intra Treatment room air - O2 Delivery Post Treatment room air - Pre Patient Position Supine - Intra Patient Position Supine - Post Patient Position Supine -[facility] Name 06/07/25 122 Positioning and Restraints Pre-Treatment Position in bed - Post Treatment Position bed - In Bed notified nsg;supine;call light within reach;encouraged to call for assist;exit alarm on;siderails up x3;with family/caregiver - User Alvarez (r) = Recorded By, (t) = Taken By, (c) = Cosigned By Initials Name Provider Type Licha Mercado, SEVERO Occupational Therapist Outcome Measures [facility] Name 06/07/25 1271 How much help from another is currently needed... Putting on and taking off regular lower body clothing? 1 -MC Bathing (including washing, rinsing, and drying) 2 -MC Toileting (which includes using toilet bed yeh or urinal) 1 -MC Putting on and taking off regular upper body clothing 2 -MC Taking care of personal grooming (such as brushing teeth) 3 -MC Eating meals 3 - AM-PAC 6 Clicks Score (OT) 12 - Row Name 06/07/25 0800 06/07/25 0612 How much help from another person do you currently need... Turning from your back to your side while in flat bed without using bedrails? 2 -AL 2 -LH Moving from lying on back to sitting on the side of a flat bed without bedrails? 2 -AL 2 -LH Moving to and from a bed to a chair (including a wheelchair)? 1 -AL 1 -LH Standing up from a chair using your arms (e.g., wheelchair, bedside chair)? 1 - AL 1 -LH Climbing 3-5 steps with a railing? 1 -AL 1 -LH To walk in hospital room? 1 -AL 1 - AM-PAC 6 Clicks Score (PT) 8 -AL 8 - Row Name 06/07/25 1554 Modified [place] Scale Pre-Stroke Modified [place] Scale 6 - Unable to determine (UTD) from the medical record documentation - Modified [place] Scale 5 - Severe disability. Bedridden, incontinent, and requiring constant nursingcare and attention. - Row Name 06/07/25 1554 Functional Assessment Outcome Measure Options AM-PAC 6 Clicks Daily Activity (OT);Modified [place] - User Alvarez (r) = Recorded By, (t) = Taken By, (c) = Cosigned By Initials Name Provider Type Licha Carlton OT Occupational Therapist Rosalina Abarca, RN Registered Nurse Linda Hodges RN Registered Nurse Occupational Therapy Education Title: PT OT 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 Therapies (In Progress) Topic: Occupational Therapy (In Progress) Point: ADL training (Done) Learning Progress Summary Patient Acceptance, E, VU by at 06/07/2025 1555 Point: Precautions (Done) Learning Progress Summary Patient Acceptance, E, VU by at 06/07/2025 1555 Point: Body mechanics (Done) Learning Progress Summary Patient Acceptance, E, VU by at 06/07/2025 1555 User Alvarez Initials Effective Dates Name Provider Type Discipline 06/26/22 - Licha Carlton OT Occupational Therapist OT OT Recommendation and Plan Recommended discharge disposition is based on the functional assessment performed by PT/OT/Speech therapy (as applicable) and may not reflect the medical necessity determined by your provider or services covered by an individual patient's insurance plan or patient resource. Therapy Frequency (OT): evaluation only Plan of Care Review Plan of Care Reviewed With: patient, son Outcome Evaluation: Pt at baseline functional status w/ ADL independence. No further skilled IPOT services warranted at this time. Rec continued activity as tolerated w/ nursing staff, return to ECF at d/c. Plan of Care Reviewed With: patient, son Outcome Evaluation: Pt at baseline functional status w/ ADL independence. No further skilled IPOT services warranted at this time. Rec continued activity as tolerated w/ nursing staff, return to ECF at d/c. Time Calculation: Evaluation Complexity (OT) Review Occupational Profile/Medical/Therapy History Complexity: expanded/moderate complexity Assessment, Occupational Performance/Identification of Deficit Complexity: 3-5 performance deficits Clinical Decision Making Complexity (OT): detailed assessment/moderate complexity Overall Complexity of Evaluation (OT): moderate complexity Time Calculation- OT Row Name 06/07/25 1555 06/07/25 0800 06/07/25 0741 Time Calculation- OT OT Start Time 1314 -MC -- -- OT Received On 06/07/25 - -- -- Untimed Charges OT Eval/Re-eval Minutes 47 -MC -- -- Total Minutes Untimed Charges Total Minutes 47 -MC -- -- Total Minutes 47 -MC -- -- OT KX Modifier Exception criteria met to exceed therapy cap -- Apply KX Modifier - Apply KX Modifier - User Alvarez (r) = Recorded By, (t) = Taken By, (c) = Cosigned By Initials Name Provider Type Licha Carlton OT Occupational Therapist Therapy Charges for Today Code Description Service Date Service Provider Modifiers Qty [id number] OT EVAL MOD COMPLEXITY 4 06/07/2025 Licha Carlton OT GO, KX 1 OT Discharge Summary Anticipated Discharge Disposition (OT): extended care facility Licha Carlton OT 06/07/2025 documented in this encounter Discharge Instructions * Attachments The following attachments cannot be sent through Care Everywhere. * Albuterol; Budesonide Metered Dose Inhaler (MDI) ([place]) * Aspirin Tablets ([place]) * Amlodipine Tablets ([place]) * Oxycodone; Acetaminophen Tablets ([place]) * Polyethylene Glycol Powder for Solution ([place]) * Vancomycin Injection ([place]) * Ischemic Stroke Pawn-jg-Gnhz ([place]) * Warning Signs of a Stroke ([place]) documented in this encounter Medications at Time of Discharge acetaminophen (TYLENOL) 500 MG tablet Take 2 tablets by mouth 4 (Four) Times a Day As Needed for Mild Pain. albuterol (ACCUNEB) 0.63 MG/3ML nebulizer solution Take 3 mL by nebulization Every 4 (Four) Hours As Needed for Wheezing. 06/14/2025 amiodarone (PACERONE) 200 MG tablet Take 1 tablet by mouth 2 (Two) Times a Day. amLODIPine (NORVASC) 10 MG tablet Take 1 tablet by mouth Daily. 06/15/2025 apixaban (ELIQUIS) 5 MG tablet tablet Take 1 tablet by mouth Every 12 (Twelve) Hours. 06/14/2025 aspirin 81 MG chewable tablet Chew 1 tablet Daily. 06/15/2025 atorvastatin (LIPITOR) 80 MG tablet Take 1 tablet by mouth Every Night. B Qnmtyni-G-Xfejc Acid (CHRISTINE-CLAUDE PO) Take 1 tablet by mouth Daily. benzonatate (TESSALON) 100 MG capsule Take 1 capsule by mouth 3 (Three) Times a Day As Needed for Cough. calcium acetate (PHOS BINDER,) 667 MG capsule capsule Take 1 capsule by mouth 3 (Three) Times a Day. cetirizine (zyrTEC) 10 MG tablet Take 1 tablet by mouth Every Night. fluticasone (VERAMYST) 27.5 MCG/SPRAY nasal spray Administer 2 sprays into the nostril(s) as directed by provider Every Night. guaiFENesin (MUCINEX) 600 MG 12 hr tablet Take 1 tablet by mouth 2 (Two) Times a Day. 30-600mg 1 tablet twice daily between [id number] loperamide (IMODIUM) 2 MG capsule Take 1 capsule by mouth 4 (Four) Times a Day As Needed for Diarrhea. Menthol (Cough Drops) 5.8 MG lozenge Dissolve 1 lozenge in the mouth Every 4 (Four) Hours As Needed (as needed). menthol-zinc oxide ([place]) 0.44-20.625 % ointment ointment Apply 1 Application topically to the appropriate area as directed Daily. Cleanse periwound/sacrum, with NS and apply ointment to periwound and cover with ABD midodrine (PROAMATINE) 5 MG tablet Take 2 tablets by mouth 3 (Three) Times a Week. Mon, Wed, Sat between 6922-1605 montelukast (SINGULAIR) 10 MG tablet Take 1 tablet by mouth Every Night. ondansetron (ZOFRAN) 4 MG tablet Take 1 tablet by mouth 3 (Three) Times a Day As Needed for Nausea or Vomiting. pantoprazole (PROTONIX) 40 MG EC tablet Take 1 tablet by mouth Daily. polyethylene glycol (MIRALAX) 17 g packet Take 17 g by mouth Daily As Needed (Use if senna-docusate is ineffective). 06/14/2025 Protein (ProSource No Carb) liquid Take 30 mL by mouth Daily. sennosides-docus ate (PERICOLACE) 8.6-50 MG per tablet Take 2 tablets by mouth 2 (Two) Times a Day As Needed for Constipation. 06/14/2025 traZODone (DESYREL) 100 MG tablet Take 1 tablet by mouth At Night As Needed for Sleep. 06/14/2025 vitamin B-12 (CYANOCOBALAMIN) 1000 MCG tablet Take 1 tablet by mouth Daily. Zinc Sulfate 220 (50 Zn) MG tablet Take 1 tablet by mouth Daily. oxyCODONE-acetam inophen (PERCOCET) 5-325 MG per tabletIndication s:Choledocholith iasis Take 1 tablet by mouth Every 4 (Four) Hours As Needed for Moderate Pain for up to 3 days. 18 tablet 06/14/2025 vancomycin 1,000 mg in sodium chloride 0.9 % 250 mL IVPB Infuse 1,000 mg into a venous catheter 3 (Three) Times a Week for 5 doses. 06/15/2025 5 documented as of this encounter Progress Notes * Beau Nieves MD - 06/14/2025 3:04 PM EDT LOS: 7 days Patient Care Team: Jeffrey Sun MD as PCP - General (Family Medicine) Chief Complaint: 74-year-old with history of ESRD on HD MWF at [facility] last dialyzed yesterday. Patient was transferred from correction due to lethargy, confusion, weakness, initially transferred to [facility]. Subjective Interval History: Plan for HD in AM. Review of Systems: No nausea vomiting chest pain or shortness of breath Objective Vital Sign Min/Max for last 24 hours Temp Min: 98 ??F (36.7 ??C) Max: 98.4 ??F (36.9 ??C) BP Min: 150/57 Max: 198/78 Pulse Min: 60 Max: 79 Resp Min: 15 Max: 18 SpO2 Min: 90 % Max: 97 % Flow (L/min) (Oxygen Therapy) Min: 0 Max: 3 No data recorded Flowsheet Rows Flowsheet Row First Filed Value Admission Height 193 cm (76 ) Documented at 06/07/2025 0243 Admission Weight 134 kg (295 lb 6.7 oz) Documented at 06/07/2025 0200 No intake/output data recorded. I/O last 3 completed shifts: In: 790 [I.V.:540; IV Piggyback:250] Out: 2450 [Urine:200] Physical Exam: General Appearance: male no acute distress. Eyes: PER, EOMI. Neck: Supple no JVD. Lungs: Clear to auscultation. Equal chest movement, nonlabored. Heart: RRR. Abdomen: Obesity, laparoscopic bandages noted. Mild tenderness Extremities no cyanosis. Neuro: No focal deficit, moving all extremities, alert oriented X 3 WBC No results found for: WBC HGB No results found for: HGB HCT No results found for: HCT Platlets No results found for: LABPLAT MCV No results found for: MCV Sodium No results found for: NA Potassium No results found for: K Chloride No results found for: CL CO2 No results found for: CO2 BUN No results found for: BUN Creatinine No results found for: CREATININE Calcium No results found for: CALCIUM PO4 No results found for: CAPO4 Albumin No results found for: ALBUMIN Magnesium No results found for: MG Uric Acid No results found for: URICACID Results Review: I reviewed the patient's new clinical results. amiodarone, 200 mg, Oral, BID amLODIPine, 10 mg, Oral, Q24H apixaban, 5 mg, Oral, Q12H aspirin, 81 mg, Oral, Daily Or aspirin, 300 mg, Rectal, Daily atorvastatin, 80 mg, Oral, Nightly guaiFENesin, 600 mg, Oral, Q12H pantoprazole, 40 mg, Oral, Daily sodium chloride, 10 mL, Intravenous, Q12H sodium chloride, 10 mL, Intravenous, Q12H vancomycin (dosing per levels), , Not Applicable, Daily Pharmacy to dose vancomycin, Medication Review: Reviewed Assessment & Plan Occipital stroke Choledocholithiasis Acute respiratory failure with hypoxia CAP (community acquired pneumonia) ESRD (end stage renal disease) Atrial fibrillation Aortic stenosis 1. ESRD: On HD at [facility] 2. Atrial fibrillation on Eliquis 3. Hypertension 4. Anemia of chronic kidney disease 5. Strep bacteremia: On vancomycin 6. COPD. Off supp o2 7. Ischemic occipital stroke. On AC with full dose eliquis. 8. Mild hyperkalemia: Management with HD . Plan: HD per MWF estella. Need abx post HD x 5 for doses . Renal diet Hold JONATAN High risk complex patient with multiple medical problems. Beau Nieves MD 06/14/25 15:04 EDT * Pantera Dc MD - 06/14/2025 7:16 AM EDT Images from the original note were not included. INFECTIOUS DISEASE Progress Note Alexa Fuentes 1950 [id number] Date of Consult: 06/08/2025 Admission Date: 06/06/2025 Requesting Provider: Ivonne Ralph MD Evaluating Physician: Pantera Dc MD Reason for Consultation: Strep pneumoniae bacteremia History of present illness: 06/08/2025: Patient is a 74 y.o. male with h/o COPD, ESRD/HD MWF/RUE AVF not working for about a year/dialysis catheter in place for close to a year, afib/Eliquis, obesity, HTN, HLD, and CVA who we were asked to see for Streptococcus pneumoniae bacteremia. He was transferred from [facility] to [facility] on 06/06 for concerns for stroke along with altered mental status. He was noted at [facility] to be more lethargic and confused and was transferred to [facility]. [facility] CT [facility] showed acute/subacute left occipital lobe ischemia and a CTA of head showed no large vessel occlusion. He was not a candidate for TNK. His labs at OSH were WBC 21,000, creatinine 5.10, AST 485, ALT 482, and bilirubin 1.5. A CT scan of a/p showed distended gallbladder with 5 mm stone, wall thickening, pericholecystic fluid, and mild intrahepatic ductal dilatation suspicious for choledocholel ithiasis. A CT scan of chest showed bilateral GGO. He was started on IV antibiotics and transferredto [facility] on 06/06. Since arrival, the patient has been afebrile. An MRI of the brain on 06/07 show tiny acute infarct in the left occipital lobe and chronic infarcts in bilateral cerebellum and left occipital lobe alongwith pansinus mucosal thickening and bilateral mastoid effusions. An MRCP of abd on 06/07 showed choledocholelithiasis in CBD and cholelithiasis without acute cholecystitis along with LLL consolidation c/w pneumonia. He underwent an ERCP with stone removal and stent placement on 06/[address] Foote. He was evaluated by Dr. Tim for possible cholecystectomy on 06/09. Blood cultures are negative to date. A C.auris PCR is negative. He is currently on Rocephin and Flagyl. ID was asked to evalaute and manage his antibiotic therapy. His blood cultures from [facility] became positive for GPC in pairs in 2 of 2 sets (4 of 4 bottles) with Streptococcus pneumoniae identified by [employer] PCR. (Fax is on chart) 06/09/2025: He remains afebrile. Blood cultures here are no growth so far. I asked Dr. Arboleda review his echocardiogram. He clearly has an abnormal aortic valve and we cannot exclude a vegetation. He underwent cholecystectomy today. 06/10/2025: He remains afebrile. Blood cultures here are no growth so far. He remains confused. He denies increased cough and sputum production. He denies severe abdominal pain. 06/11/2025: He remains afebrile. Blood cultures from 06/07 are no growth so far. He developed bilateral parotid swelling and discomfort overnight. A CT scan of his neck reveals left parotid inflammation consistent with parotitis. There was no evidence of a obstructing stone. Today revealed moderate calcification of the aortic valve and moderate aortic regurgitation with moderate aortic stenosis. There was no evidence of valvular vegetation. He also had mild to moderate mitral regurgitation. He complains of left parotid region pain 06/12/2025: He remains afebrile. White blood cell count yesterday was 11.1. He denies increased cough and sputum production. He continues to complain of left parotid discomfort. 06/13/2025: He remains afebrile. He has decreased left parotid pain and swelling. He denies nausea and vomiting. He denies increased dyspnea. I saw him at dialysis today. 06/14/25: He remains afebrile. He continues to feel better with decreased left parotid pain and swelling. He denies increased cough and sputum production Past Medical History: Diagnosis Date COPD (chronic obstructive pulmonary disease) ESRD (end stage renal disease) on dialysis Hyperlipidemia Hypertension Stroke Past Surgical History: Procedure Laterality Date CHOLECYSTECTOMY N/A 06/09/2025 Procedure: CHOLECYSTECTOMY LAPAROSCOPIC; Surgeon: Charles Guerrero MD; Location: [facility] OR; Service: General; Laterality: N/A; COLONOSCOPY ERCP N/A 06/08/2025 Procedure: ENDOSCOPIC RETROGRADE CHOLANGIOPANCREATOGRAPHY; Surgeon: Kishore Foote MD; Location: [facility] ENDOSCOPY; Service: Gastroenterology; Laterality: N/A; KNEE SURGERY Right Family History Problem Relation Age of Onset Cancer Father Social History Socioeconomic History Marital status: Tobacco Use Smoking status: Never Smokeless tobacco: Never Vaping Use Vaping status: Never Used Substance and Sexual Activity Alcohol use: Never Drug use: Never Sexual activity: Not Currently No Known Allergies Medication: Current Facility-Administered Medications: acetaminophen (TYLENOL) tablet 650 mg, 650 mg, Oral, Q4H PRN, 650 mg at 06/08/25 0330 OR acetaminophen (TYLENOL) 160 MG/5ML oral solution 650 mg, 650 mg, Oral, Q4H PRN OR acetaminophen (TYLENOL) suppository 650 mg, 650 mg, Rectal, Q4H PRN, Charles Guerrero MD albumin human 25 % IV SOLN 12.5 g, 12.5 g, Intravenous, PRN, Charles Guerrero MD, 12.5 g at 06/08/25 1507 amiodarone (PACERONE) tablet 200 mg, 200 mg, Oral, BID, Charles Guerrero MD, 200 mg at 015 apixaban (ELIQUIS) tablet 5 mg, 5 mg, Oral, Q12H, Ivonne Ralph MD, 5 mg at 06/13/252014 aspirin chewable tablet 81 mg, 81 mg, Oral, Daily, 81 mg at 06/12/25 0836 OR aspirin suppository 300 mg, 300 mg, Rectal, Daily, Charles Guerrero MD atorvastatin (LIPITOR) tablet 80 mg, 80 mg, Oral, Nightly, Charles Guerrero MD, 80 mg at 06/13/252014 sennosides-docusate (PERICOLACE) 8.6-50 MG per tablet 2 tablet, 2 tablet, Oral, BID PRN, 2 tablet at 06/13/252014 AND polyethylene glycol (MIRALAX) packet 17 g, 17 g, Oral, Daily PRN, 17 g at 06/13/25 1223 AND bisacodyl (DULCOLAX) EC tablet 5 mg, 5 mg, Oral, Daily PRN AND bisacodyl (DULCOLAX) suppository 10 mg, 10 mg, Rectal, Daily PRN, Charles Guerrero MD, 10 mg at 06/13/25 1328 Calcium Replacement - Follow Nurse / BPA Driven Protocol, , Not Applicable, PRN, Charles Guerrero MD guaiFENesin (MUCINEX) 12 hr tablet 600 mg, 600 mg, Oral, Q12H, Charles Guerrero MD, 600 mg at 06/13/252014 heparin (porcine) injection 2,000 Units, 2,000 Units, Intracatheter, PRN, Rehan Lincoln MD, 2,000 Units at 06/13/25 1146 HYDROmorphone (DILAUDID) injection 0.5 mg, 0.5 mg, Intravenous, Q2H PRN AND naloxone (NARCAN) injection 0.1 mg, 0.1 mg, Intravenous, Q5 Min PRN, Charles Guerrero MD ipratropium-albuterol (DUO-NEB) nebulizer solution 3 mL, 3 mL, Nebulization, Q6H PRN, Ivonne Ralph MD Magnesium Standard Dose Replacement - Follow Nurse / BPA Driven Protocol, , Not Applicable, PRN, Charles Guerrero MD nitroglycerin (NITROSTAT) SL tablet 0.4 mg, 0.4 mg, Sublingual, Q5 Min PRN, Charles Guerrero MD ondansetron (ZOFRAN) injection 4 mg, 4 mg, Intravenous, Q6H PRN, Charles Guerrero MD, 4 mg at 06/08/25 1351 oxyCODONE-acetaminophen (PERCOCET) 5-325 MG per tablet 1 tablet, 1 tablet, Oral, Q4H PRN, Charles Guerrero MD, 1 tablet at 06/09/252014 pantoprazole (PROTONIX) EC tablet 40 mg, 40 mg, Oral, Daily, Charles Guerrero MD, 40 mg at 06/12/25 0836 Pharmacy to dose vancomycin, , Not Applicable, Continuous PRN, Pantera Dc MD Phosphorus Replacement - Follow Nurse / BPA Driven Protocol, , Not Applicable, PRN, Charles Guerrero MD Potassium Replacement - Follow Nurse / BPA Driven Protocol, , Not Applicable, PRN, Charles Guerrero MD simethicone (MYLICON) chewable tablet 80 mg, 80 mg, Oral, 4x Daily PRN, Ivonne Bah MD, 80 mg at 06/10/25 0957 sodium chloride 0.9 % flush 10 mL, 10 mL, Intravenous, Q12H, Charles Guerrero MD, 10 mL at 06/13/25 1328 sodium chloride 0.9 % flush 10 mL, 10 mL, Intravenous, PRN, Charles Guerrero MD sodium chloride 0.9 % flush 10 mL, 10 mL, Intravenous, Q12H, Charles Guerrero MD, 10 mL at 06/13/25 1328 sodium chloride 0.9 % flush 10 mL, 10 mL, Intravenous, PRN, Charles Guerrero MD sodium chloride 0.9 % infusion 40 mL, 40 mL, Intravenous, PRN, Charles Guerrero MD sodium chloride nasal spray 2 spray, 2 spray, Each Nare, Q30 Min PRN, Laure Billings, HOSIERY BAGGER, 2 spray at 06/13/25 0415 vancomycin (dosing per levels), , Not Applicable, Daily, Veena Liu RPH Antibiotics: Anti-Infectives (From admission, onward) Ordered Dose/Rate Route Frequency Start Stop 06/12/25 0739 DAPTOmycin (CUBICIN) 950 mg in sodium chloride 0.9 % 50 mL IVPB Status: Discontinued Ordering Provider: Ivonne Ralph MD 9 mg/kg ?? 106 kg (Adjusted) 100 mL/hr over 30 Minutes Intravenous Every Wednesday06/15/25 1600 06/12/25 0908 06/12/25 0958 vancomycin (dosing per levels) Ordering Provider: Veena Liu RPH Not Applicable Daily 06/14/25 0900 06/24/25 0859 06/12/25 0739 DAPTOmycin (CUBICIN) 650 mg in sodium chloride 0.9 % 50 mL IVPB Status: Discontinued Ordering Provider: Ivonne Ralph MD 6 mg/kg ?? 106 kg (Adjusted) 100 mL/hr over 30 Minutes Intravenous Once per day on Wednesday06/13/25 1600 06/12/25 0908 06/12/25 0910 vancomycin (dosing per levels) Status: Discontinued Ordering Provider: Anjana Cali, PharmD Not Applicable Daily 06/13/25 0906/12/25 0958 06/12/25 0958 vancomycin (VANCOCIN) 1,000 mg in sodium chloride 0.9 % 250 mL IVPB-VTB Ordering Provider: Veena Liu RPH 1,000 mg 250 mL/hr over 60 Minutes Intravenous Once 06/13/25 0900 06/13/25 1134 06/12/25 0958 vancomycin 2250 mg/500 mL 0.9% NS IVPB ([facility]) Ordering Provider: Veena Liu RPH 2,250 mg over 135 Minutes Intravenous Once 06/12/25 1800 06/12/25202006/12/25 0908 Pharmacy to dose vancomycin Ordering Provider: Pantera cD MD Not Applicable Continuous PRN 06/12/25 0907 06/22/25 0906 06/11/25 1106 DAPTOmycin (CUBICIN) 650 mg in sodium chloride 0.9 % 50 mL IVPB Status: Discontinued Ordering Provider: Pura Cross RPH 6 mg/kg ?? 106 kg (Adjusted) 100 mL/hr over 30 Minutes Intravenous Once per day on Wednesday06/11/25 2100 06/12/25 0739 06/11/25 1055 DAPTOmycin (CUBICIN) 650 mg in sodium chloride 0.9 % 50 mL IVPB Status: Discontinued Ordering Provider: Ivonne Ralph MD 6 mg/kg ?? 106 kg (Adjusted) 100 mL/hr over 30 Minutes Intravenous Every 24 Hours 06/11/25 1145 06/11/25 1106 06/07/25 1532 metroNIDAZOLE (FLAGYL) IVPB 500 mg Status: Discontinued Ordering Provider: Charles Guerrero MD 500 mg 200 mL/hr over 30 Minutes Intravenous Every 8 Hours 06/07/25 2000 06/10/25 0722 06/07/25 0437 metroNIDAZOLE (FLAGYL) IVPB 500 mg Status: Discontinued Ordering Provider: Rolan Muro MD 500 mg 200 mL/hr over 30 Minutes Intravenous Every 8 Hours 06/07/25 0600 06/07/25 1532 06/07/25 0437 cefTRIAXone (ROCEPHIN) 2,000 mg in sodium chloride 0.9 % 100 mL MBP Status: Discontinued Ordering Provider: Pantera Dc MD 2,000 mg 200 mL/hr over 30 Minutes Intravenous Every 24 Hours 06/07/25 0600 06/12/25 0908 Review of Systems: He is confused and cannot provide a reliable review of systems Physical Exam: Vital Signs Temp (24hrs), Av ??F (36.7 ??C), Min:97.6 ??F (36.4 ??C), Max:98.4 ??F (36.9 ??C) Temp Min: 97.6 ??F (36.4 ??C) Max: 98.4 ??F (36.9 ??C) BP Min: 142/78 Max: 198/78 Pulse Min: 63 Max: 79 Resp Min: 15 Max: 18 SpO2 Min: 85 % Max: 99 % GENERAL: Awake and alert, in no acute distress. He is pleasantly confused HEENT: Normocephalic, atraumatic. PERRL. EOMI. No conjunctival injection. No icterus. Decrease Leftparotid swelling and tenderness. NECK: Supple. HEART: 3/6 systolic murmur LUNGS:Diminished at left lung base with basilar rales, relatively clear right lung field without wheezing,. Normal respiratory effort. Nonlabored. ABDOMEN: Soft, nontender, nondistended.. No rebound or guarding. NO mass or HSM. Obese. EXT: No cyanosis 1+ edema. No cord. : Without Archibald catheter. MSK: No joint effusions or erythema SKIN: Warm and dry without cutaneous eruptions on Inspection/palpation. NEURO: pleasantly confused Motor 5/5 strength Left CW HD cath dry without erythema Laboratory Data Results from last 7 days Lab Units 06/11/25 0810 06/10/25 1522 06/08/25 0848 WBC 10*3/mm3 11.08* 11.79* 10.13 HEMOGLOBIN g/dL 8.5* 8.9* 8.6* HEMATOCRIT % 27.2* 28.5* 27.7* PLATELETS 10*3/mm3 206 179 195 Results from last 7 days Lab Units 06/11/25 0810 SODIUM mmol/L 135* POTASSIUM mmol/L 5.5* CHLORIDE mmol/L 95* CO2 mmol/L 22.9 BUN mg/dL 66.9* CREATININE mg/dL 7.96* GLUCOSE mg/dL 98 CALCIUM mg/dL 8.2* Results from last 7 days Lab Units 06/11/25 0810 ALK PHOS U/L 112 BILIRUBIN mg/dL 0.4 BILIRUBIN DIRECT mg/dL 0.2 ALT (SGPT) U/L 455* AST (SGOT) U/L 168* Estimated Creatinine Clearance: 11.8 mL/min (A) (by C-G formula based on SCr of 7.96 mg/dL (H)). Microbiology: Microbiology Results (last 10 days) Procedure Component Value - Date/Time MRSA Screen, PCR (Inpatient) - Swab, Nares [[id number]] (Abnormal) Collected: 06/08/25 1905 Lab Status: Final result Specimen: Swab from Nares Updated: 06/08/25 2152 MRSA PCR Positive Narrative: The negative predictive value of this diagnostic test is high and should only be used to consider de-escalating anti-MRSA therapy. A positive result may indicate colonization with MRSA and must be correlated clinically. KIMANI AURIS PCR - Swab, Axilla Right, Axilla Left and Groin [[id number]] Collected: 06/07/25 0845 Lab Status: Final result Specimen: Swab from Axilla Right, Axilla Left and Groin Updated: 06/08/25 1715 KIMANI AURIS PCR (MITUL) Not Detected Blood Culture - Blood, Wrist, Left [[id number]] (Normal) Collected: 06/07/25 0603 Lab Status: Final result Specimen: Blood from Wrist, Left Updated: 06/12/25 0730 Blood Culture No growth at 5 days Narrative: Aerobic Bottle Only Less than seven (7) mL's of blood was collected. Insufficient quantity may yield false negative results. Blood Culture - Blood, Wrist, Left [[id number]] (Normal) Collected: 06/07/25 0601 Lab Status: Final result Specimen: Blood from Wrist, Left Updated: 06/12/25 0730 Blood Culture No growth at 5 days Narrative: Aerobic Bottle Only Less than seven (7) mL's of blood was collected. Insufficient quantity may yield false negative results. Radiology: Imaging Results (Last 72 Hours) Procedure Component Value Units Date/Time CT Soft Tissue Neck Without Contrast [[id number]] Collected: 06/11/25 0737 Updated: 06/11/25 0747 Narrative: CT SOFT TISSUE NECK WO CONTRAST Date of Exam: 06/10/2025 10:57 PM EDT Indication: swelling and pain. Comparison: 06/06/2025 Technique: Axial CT images were obtained of the neck without contrast administration. Reconstructedcoronal and sagittal images were also obtained. Automated exposure control and iterative construction methods were used. Findings: Visualized intracranial contents and globes and orbits appear within normal limits. Nasopharynx is normal. Oropharynx including base of tongue and epiglottis appear within normal limits. Larynx and piriform sinuses appear within normal limits. Visualized upper trachea and esophagus appear normal. Thyroid gland appears within normal limits. Bilateral submandibular glands are within There is subcutaneous fat stranding overlying the left parotid gland. The parotid glands are largely fatty replaced. There is edema and fat stranding within the left parotid gland consistent with parotitis. No definite parotid duct dilation or stone identified. No soft tissue mass visualized. Right parotid gland appears within limits. No pathologically enlarged cervical lymph nodes. There is a left internal jugular central venous catheter in place. There are right subclavian and internal jugular vein stents.. Degenerative changes are noted of the cervical spine. No lytic or sclerotic bony lesion. There is complete opacification of the left maxillary sinus unchanged. There is a polyp or mucous retention cyst within the posterior right maxillary sinus. Partial opacification of the left ethmoid air cells. There is complete opacification of the left mastoid air cells. Left middle ear cavity appears clear. There is patchy airspace disease in the left upper lobe, grossly unchanged from prior study consistent with pneumonia. Impression: Impression: 1. Enlargement and fat stranding in and around the left parotid gland consistent with changes of parotiditis. No definite obstructing stone identified. 2. No cervical lymphadenopathy. 3. Changes of chronic sinusitis and left mastoiditis. 4. No significant change in left upper lobe airspace disease compatible with pneumonia. Electronically Signed: Jose Jesus MD 06/11/2025 7:44 AM EDT Workstation ID: [id number] I read his radiographic images. Impression: Pneumococcal bacteremia-secondary to left lower lobe pneumonia. There is no evidence of endocarditis by JARED. Choledocholelithiasis- s/p ERCP 06/08 with stone extraction and stent placement. S/P cholecystectomy06/09 LLL pneumococcal pneumonia Left parotitis- this is most likely secondary to MRSA. Send he received 5 doses of intravenous daptomycin at dialysis. Acute left occipital lobe cerebral vascular accident Valvular heart disease-with moderate to severe aortic stenosis and mild to moderate mitral regurgitation. There is no evidence of endocarditis by JARED. Severe sepsis- improved. Encephalopathy, toxic/metabolic, improving Acute hypoxic respiratory failure Leukocytosis/neutrophilia Anemia of chronic disease Choledocholithiasis End stage renal disease/Hemodialysis MWF/dialysis catheter in place for almost a year/RUE AVF not working for about a year. Atrial fibrillation/Eliquis on hold Chronic obstructive pulmonary disease Essential hypertension/dyslipidemia PLAN/RECOMMENDATIONS: Vancomycin 1 g IV with each dialysis x 5 doses Possible discharge to rehab Outpatient orders: Vancomycin 1 g IV with each dialysis for total of 5 doses I will sign off This visit included the following complex service elements: Complex medical decision-making associated with antimicrobial prescribing. In-depth chart review with high level synthesis for complex diagnoses. Managed infection treatment protocol associated with transitions of care for this complex patient. Pantera Dc MD 06/14/2025 07:16 EDT * Michelle Howard, RD - 06/13/2025 12:28 PM EDT Patient Name: Alexa Fuentes Date of : 1950 Admission date: 06/06/2025 Reason for Encounter: Pressure Injury Stg 2+ [facility] Clinical Nutrition Assessment Subjective Subjective Information 06/13: Pt screened for NPO/CLD x5 days. Spoke with pt at bedside. Pt reported that he is tolerating his CLD, and denied any abd pain, or n/v/d. Pt stated that his appetite is pretty good. Per pt and RN, the pt is expected to d/c today. Offered ONS to patient, pt declined. 06/08: Pt admitted for altered mental status from occipital stroke. Pt noted to have healing stage 4PI to coccyx. Pt denies any recent weight changes or changes in appetite. Pt reports no changes in oral intakes, but pt with improving metabolic encephalopathy and suspect oral intakes were not adequate during his more confused state. Pt does not want an ONS to help with wound healing at this time.Encouraged pt to have good oral intakes at meal times, especially of protein foods, to aid in woundhealing. Objective H&P and Current Problems H&P Past Medical History: Diagnosis Date COPD (chronic obstructive pulmonary disease) ESRD (end stage renal disease) on dialysis Hyperlipidemia Hypertension Stroke Past Surgical History: Procedure Laterality Date CHOLECYSTECTOMY N/A 06/09/2025 Procedure: CHOLECYSTECTOMY LAPAROSCOPIC; Surgeon: Charles Guerrero MD; Location: [facility] OR; Service: General; Laterality: N/A; COLONOSCOPY ERCP N/A 06/08/2025 Procedure: ENDOSCOPIC RETROGRADE CHOLANGIOPANCREATOGRAPHY; Surgeon: Kishore Foote MD; Location: [facility] ENDOSCOPY; Service: Gastroenterology; Laterality: N/A; KNEE SURGERY Right Current Problems Admission Diagnosis: Occipital stroke [I63.9] Problem List: Occipital stroke Choledocholithiasis Acute respiratory failure with hypoxia CAP (community acquired pneumonia) ESRD (end stage renal disease) Atrial fibrillation Aortic stenosis Applicable Nutrition Hx 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 Recommendation (06/07) regular textures, thin liquids Anthropometrics Height: 193 cm (75.98 ) Weight: 134 kg (295 lb) (06/11/25 1443) Weight Method: Bed scale BMI (Calculated): 35.9 Trending Weight Changes 06/08/25: No significant changes Weight History Weight Weight (kg) Weight (lbs) Weight Method 06/07/2025 134 kg 295 lb 6.7 oz Bed scale 134 kg 295 lb 6.7 oz Weight Hx from chart review: 07/2024: 241 lb Labs Comment: Results from last 7 days Lab Units 06/11/25 0810 06/10/25 1522 06/09/25 1426 06/08/25 0848 06/07/25 0603 06/07/25 0057 SODIUM mmol/L 135* 134* -- 137 -- 136 POTASSIUM mmol/L 5.5* 5.3* -- 5.1 -- 5.0 GLUCOSE mg/dL 98 120* -- 66 -- 77 BUN mg/dL 66.9* 60.9* -- 80.3* -- 52.4* CREATININE mg/dL 7.96* 7.36* -- 8.13* -- 6.07* CALCIUM mg/dL 8.2* 8.7 -- 8.8 -- 9.0 PHOSPHORUS mg/dL -- 8.9* -- -- -- -- MAGNESIUM mg/dL 2.2 -- 2.0 -- -- 1.8 ALBUMIN g/dL 3.1* 3.2* -- 2.8* -- 3.0* LACTATE mmol/L -- -- -- -- 0.9 -- BILIRUBIN mg/dL 0.4 0.4 -- 0.6 -- 0.9 ALK PHOS U/L 112 118* -- 111 -- 102 AST (SGOT) U/L 168* 226* -- 730* -- 558* ALT (SGPT) U/L 455* 558* -- 982* -- 652* TRIGLYCERIDES mg/dL -- -- -- -- -- 58 Results from last 7 days Lab Units 06/11/25 0810 06/10/25 1522 06/08/25 0848 PLATELETS 10*3/mm3 206 179 195 HEMOGLOBIN g/dL 8.5* 8.9* 8.6* HEMATOCRIT % 27.2* 28.5* 27.7* Lab Results Component Value Date HGBA1C 4.9 06/07/2025 Medications Scheduled Medications amiodarone, 200 mg, Oral, BID apixaban, 5 mg, Oral, Q12H aspirin, 81 mg, Oral, Daily Or aspirin, 300 mg, Rectal, Daily atorvastatin, 80 mg, Oral, Nightly guaiFENesin, 600 mg, Oral, Q12H pantoprazole, 40 mg, Oral, Daily sodium chloride, 10 mL, Intravenous, Q12H sodium chloride, 10 mL, Intravenous, Q12H [START ON 06/14/2025] vancomycin (dosing per levels), , Not Applicable, Daily Infusions Pharmacy to dose vancomycin, PRN Medications acetaminophen OR acetaminophen OR acetaminophen albumin human senna-docusate sodium AND polyethylene glycol AND bisacodyl AND bisacodyl Calcium Replacement - Follow Nurse / BPA Driven Protocol heparin (porcine) HYDROmorphone AND naloxone ipratropium-albuterol Magnesium Standard Dose Replacement - Follow Nurse / BPA Driven Protocol nitroglycerin ondansetron oxyCODONE-acetaminophen Pharmacy to dose vancomycin Phosphorus Replacement - Follow Nurse / BPA Driven Protocol Potassium Replacement - Follow Nurse / BPA Driven Protocol simethicone sodium chloride sodium chloride sodium chloride sodium chloride Physical Findings Chewing/Swallowing No issues identified at this time Dentition Mouth/Teeth WDL: .WDL except, teeth Teeth Symptoms: tooth/teeth missing Skin Wound 06/06/251957 medial coccyx Pressure Injury-Pressure Injury Stage: Stage 3 (06/12/25 0400) Bowel function Last Bowel Movement: 06/07/25 (06/12/25 0000) Stool Consistency: loose (06/07/25 2000) Edema Edema: generalized (06/13/25 024) Generalized Edema: 1+ (Trace) (06/13/25 0243) Intake & Output (last 3 days) 06/10 0706/11 0706/11 0730 0706/12 0701 06/13 0700 06/13 0701 06/14 0700 P.O. 472 I.V. (mL/kg) 540 (4) IV Piggyback 250 Total Intake(mL/kg) 1012 (7.6) 250 (1.9) Urine (mL/kg/hr) 100 (0) 200 (0.1) Dialysis 2000 Total Output 720 412 0276 Net -100 +812 -1750 Urine Unmeasured Occurrence 1 x 1 x Nutrition Focused Physical Exam 06/08/25: NFPE completed and not consistent with nutrition diagnosis of malnutrition at this time using AND/ASPEN criteria. 1 Current Nutrition Orders & Evaluation of Intake Oral Nutrition Food Allergies/Intolerances NKFA Current PO Diet Diet: Liquid, Diabetic, Gastrointestinal; Clear Liquid; Consistent Carbohydrate; Low Irritant; Fluid Consistency: Thin (IDDSI 0) Oral Nutrition Supplement None Trending % PO Intake 06/08/25: Insuff data 2 Assessment & Plan Nutrition Diagnosis and Goals Nutrition Diagnosis 1 Increased Nutrient Needs (Protein) related to wound healing as evidenced by healing Stage 4 PI to coccyx Nutrition Diagnosis 2 None Goal(s) Establish PO Intake and PO Diet Advances When Medically Appropriate Nutrition Intervention and Prescription Intervention Oral nutrition supplement offered but declined by patient, Continue to monitor for plan of care, and Continue with current interventions Diet Prescription NPO/BRANT x5 days -Pt may be able to advance to full liquids, note pt expected to d/c today Supplement Prescription N/A Education Provided 3 Monitoring/Evaluation Monitor/Evaluation Per Protocol, I&O, PO Intake, Pertinent Labs, Skin Status, Symptoms, and POC/GOC RD Follow-Up Encounter Per protocol Electronically signed by: Michelle Howard, Registration Eligible 06/13/25 12:28 EDT Cosigned by Madisyn Adler MS,MANOJ,LD at 06/13/2025 1:41 PM EDT Associated attestation - Madisyn Adler MS, RD,LD - 06/13/2025 1:41 PM EDT I have reviewed this documentation and agree. * Beau Nieves MD - 06/13/2025 10:17 AM EDT LOS: 6 days Patient Care Team: Jeffrey Sun MD as PCP - General (Family Medicine) Chief Complaint: 74-year-old with history of ESRD on HD MWF at [facility] last dialyzed yesterday. Patient was transferred from correction due to lethargy, confusion, weakness, initially transferred to [facility]. Subjective Interval History: Seen on HD tolerating treatment well. UF 2 liter. Review of Systems: No nausea vomiting chest pain or shortness of breath Objective Vital Sign Min/Max for last 24 hours Temp Min: 97.8 ??F (36.6 ??C) Max: 98.3 ??F (36.8 ??C) BP Min: 147/90 Max: 189/79 Pulse Min: 61 Max: 76 Resp Min: 15 Max: 18 SpO2 Min: 85 % Max: 99 % Flow (L/min) (Oxygen Therapy) Min: 3 Max: 4 No data recorded Flowsheet Rows Flowsheet Row First Filed Value Admission Height 193 cm (76 ) Documented at 06/07/2025 0243 Admission Weight 134 kg (295 lb 6.7 oz) Documented at 06/07/2025 0200 No intake/output data recorded. I/O last 3 completed shifts: In: 1012 [P.O.:472; I.V.:540] Out: 200 [Urine:200] Physical Exam: General Appearance: male no acute distress. Eyes: PER, EOMI. Neck: Supple no JVD. Lungs: Clear to auscultation. Equal chest movement, nonlabored. Heart: RRR. Abdomen: Obesity, laparoscopic bandages noted. Mild tenderness Extremities no cyanosis. Neuro: No focal deficit, moving all extremities, alert oriented X 3 WBC WBC Date Value Ref Range Status 06/11/2025 11.08 (H) 3.40 - 10.80 10*3/mm3 Final 06/10/2025 11.79 (H) 3.40 - 10.80 10*3/mm3 Final HGB Hemoglobin Date Value Ref Range Status 06/11/2025 8.5 (L) 13.0 - 17.7 g/dL Final 06/10/2025 8.9 (L) 13.0 - 17.7 g/dL Final HCT Hematocrit Date Value Ref Range Status 06/11/2025 27.2 (L) 37.5 - 51.0 % Final 06/10/2025 28.5 (L) 37.5 - 51.0 % Final Platlets No results found for: LABPLAT MCV MCV Date Value Ref Range Status 06/11/2025 98.9 (H) 79.0 - 97.0 fL Final 06/10/2025 100.7 (H) 79.0 - 97.0 fL Final Sodium Sodium Date Value Ref Range Status 06/11/2025 135 (L) 136 - 145 mmol/L Final 06/10/2025 134 (L) 136 - 145 mmol/L Final Potassium Potassium Date Value Ref Range Status 06/11/2025 5.5 (H) 3.5 - 5.2 mmol/L Final 06/10/2025 5.3 (H) 3.5 - 5.2 mmol/L Final Chloride Chloride Date Value Ref Range Status 06/11/2025 95 (L) 98 - 107 mmol/L Final 06/10/2025 94 (L) 98 - 107 mmol/L Final CO2 CO2 Date Value Ref Range Status 06/11/2025 22.9 22.0 - 29.0 mmol/L Final 06/10/2025 21.2 (L) 22.0 - 29.0 mmol/L Final BUN BUN Date Value Ref Range Status 06/11/2025 66.9 (H) 8.0 - 23.0 mg/dL Final 06/10/2025 60.9 (H) 8.0 - 23.0 mg/dL Final Creatinine Creatinine Date Value Ref Range Status 06/11/2025 7.96 (H) 0.76 - 1.27 mg/dL Final 06/10/2025 7.36 (H) 0.76 - 1.27 mg/dL Final Calcium Calcium Date Value Ref Range Status 06/11/2025 8.2 (L) 8.6 - 10.5 mg/dL Final 06/10/2025 8.7 8.6 - 10.5 mg/dL Final PO4 No results found for: CAPO4 Albumin Albumin Date Value Ref Range Status 06/11/2025 3.1 (L) 3.5 - 5.2 g/dL Final 06/10/2025 3.2 (L) 3.5 - 5.2 g/dL Final Magnesium Magnesium Date Value Ref Range Status 06/11/2025 2.2 1.6 - 2.4 mg/dL Final Uric Acid No results found for: URICACID Results Review: I reviewed the patient's new clinical results. amiodarone, 200 mg, Oral, BID apixaban, 5 mg, Oral, Q12H aspirin, 81 mg, Oral, Daily Or aspirin, 300 mg, Rectal, Daily atorvastatin, 80 mg, Oral, Nightly guaiFENesin, 600 mg, Oral, Q12H pantoprazole, 40 mg, Oral, Daily sodium chloride, 10 mL, Intravenous, Q12H sodium chloride, 10 mL, Intravenous, Q12H [START ON 06/14/2025] vancomycin (dosing per levels), , Not Applicable, Daily vancomycin, 1,000 mg, Intravenous, Once Pharmacy to dose vancomycin, Medication Review: Reviewed Assessment & Plan Occipital stroke Choledocholithiasis Acute respiratory failure with hypoxia CAP (community acquired pneumonia) ESRD (end stage renal disease) Atrial fibrillation Aortic stenosis 1. ESRD: On HD at [facility] 2. Atrial fibrillation on Eliquis 3. Hypertension 4. Anemia of chronic kidney disease 5. Hyperlipidemia 6. COPD. Off supp o2 7. Ischemic occipital stroke. On AC with full dose eliquis. 8. Mild hyperkalemia: Management with HD . Plan: HD per [facility] estella. Renal diet Hold JONATAN High risk complex patient with multiple medical problems. Beau Nieves MD 06/13/25 10:17 EDT * Charles Guerrero MD - 06/13/2025 8:27 AM EDT Patient Name: Alexa Fuentes Date of : 1950 [id number] Surgery Progress Note Date of visit: 06/13/2025 Subjective Pain well-controlled. No nausea or vomiting. No fevers or chills. Passing flatus but no BM since surgery. Objective BP 154/81 (BP Location: Left arm, Patient Position: Lying) Pulse 67 Temp 97.9 ??F (36.6 ??C) (Oral) Resp 18 Ht 193 cm (75.98 ) Wt 134 kg (295 lb) SpO2 92% BMI 35.92 kg/m?? Intake/Output Summary (Last 24 hours) at 06/13/2025 08 Last data filed at 06/13/2025 0500 Gross per 24 hour Intake 1012 ml Output 200 ml Net 812 ml CV: Rhythm regular and rate regular L: Clear to auscultation bilaterally Abd: Bowel sounds positive, soft, nontender, obese, incisions clean dry and intact Ext: No cyanosis, clubbing, edema Assessment & Plan Patient postop day 4 from laparoscopic cholecystectomy for choledocholithiasis. Diet as tolerated. Pain control. Out of bed, incentive spirometer, DVT prophylaxis. Continue bowel regimen. When appropriate for DC planning, he should follow-up with me in 2 weeks. No antibiotics needed at discharge from surgical perspective. Charles Guerrero MD 06/13/2025 08:27 EDT * Pantera Dc MD - 06/13/2025 7:53 AM EDT Images from the original note were not included. INFECTIOUS DISEASE Progress Note Alexa Fuentes 1950 [id number] Date of Consult: 06/08/2025 Admission Date: 06/06/2025 Requesting Provider: Ivonne Ralph MD Evaluating Physician: Pantera Dc MD Reason for Consultation: Strep pneumoniae bacteremia History of present illness: 06/08/2025: Patient is a 74 y.o. male with h/o COPD, ESRD/HD MWF/[facility] AVF not working for about a year/dialysis catheter in place for close to a year, afib/Eliquis, obesity, HTN, HLD, and CVA who we were asked to see for Streptococcus pneumoniae bacteremia. He was transferred from [facility] to [facility] on 06/06 for concerns for stroke along with altered mental status. [facility] was [facility] to be more lethargic and confused and was transferred to [facility]. [facility] CT [facility] showed acute/subacute left occipital lobe ischemia and a CTA of head showed no large vessel occlusion. He was not a candidate for TNK. His labs at OSH were WBC 21,000, creatinine 5.10, AST 485, ALT 482, and bilirubin 1.5. A CT scan of a/p showed distended gallbladder with 5 mm stone, wall thickening, pericholecystic fluid, and mild intrahepatic ductal dilatation suspicious for choledocholel ithiasis. A CT scan of chest showed bilateral GGO. He was started on IV antibiotics and transferredto [facility] on 06/06. Since arrival, the patient has been afebrile. An MRI of the brain on 06/07 show tiny acute infarct in the left occipital lobe and chronic infarcts in bilateral cerebellum and left occipital lobe alongwith pansinus mucosal thickening and bilateral mastoid effusions. An MRCP of abd on 06/07 showed choledocholelithiasis in CBD and cholelithiasis without acute cholecystitis along with LLL consolidation c/w pneumonia. He underwent an ERCP with stone removal and stent placement on 06/[address] Foote. He was evaluated by Dr. Tim for possible cholecystectomy on 06/09. Blood cultures are negative to date. A C.auris PCR is negative. He is currently on Rocephin and Flagyl. ID was asked to evalaute and manage his antibiotic therapy. His blood cultures from [facility] became positive for GPC in pairs in 2 of 2 sets (4 of 4 bottles) with Streptococcus pneumoniae identified by [employer] PCR. (Fax is on chart) 06/09/2025: He remains afebrile. Blood cultures here are no growth so far. I asked Dr. Arboleda review his echocardiogram. He clearly has an abnormal aortic valve and we cannot exclude a vegetation. He underwent cholecystectomy today. 06/10/2025: He remains afebrile. Blood cultures here are no growth so far. He remains confused. He denies increased cough and sputum production. He denies severe abdominal pain. 06/11/2025: He remains afebrile. Blood cultures from 06/07 are no growth so far. He developed bilateral parotid swelling and discomfort overnight. A CT scan of his neck reveals left parotid inflammation consistent with parotitis. There was no evidence of a obstructing stone. Today revealed moderate calcification of the aortic valve and moderate aortic regurgitation with moderate aortic stenosis. There was no evidence of valvular vegetation. He also had mild to moderate mitral regurgitation. He complains of left parotid region pain 06/12/2025: He remains afebrile. White blood cell count yesterday was 11.1. He denies increased cough and sputum production. He continues to complain of left parotid discomfort. 06/13/2025: He remains afebrile. He has decreased left parotid pain and swelling. He denies nausea and vomiting. He denies increased dyspnea. I saw him at dialysis today. Past Medical History: Diagnosis Date COPD (chronic obstructive pulmonary disease) ESRD (end stage renal disease) on dialysis Hyperlipidemia Hypertension Stroke Past Surgical History: Procedure Laterality Date CHOLECYSTECTOMY N/A 06/09/2025 Procedure: CHOLECYSTECTOMY LAPAROSCOPIC; Surgeon: Charles Guerrero MD; Location: [facility] OR; Service: General; Laterality: N/A; COLONOSCOPY ERCP N/A 06/08/2025 Procedure: ENDOSCOPIC RETROGRADE CHOLANGIOPANCREATOGRAPHY; Surgeon: Kishore Foote MD; Location: [facility] ENDOSCOPY; Service: Gastroenterology; Laterality: N/A; KNEE SURGERY Right Family History Problem Relation Age of Onset Cancer Father Social History Socioeconomic History Marital status: Tobacco Use Smoking status: Never Smokeless tobacco: Never Vaping Use Vaping status: Never Used Substance and Sexual Activity Alcohol use: Never Drug use: Never Sexual activity: Not Currently No Known Allergies Medication: Current Facility-Administered Medications: acetaminophen (TYLENOL) tablet 650 mg, 650 mg, Oral, Q4H PRN, 650 mg at 06/08/25 0330 OR acetaminophen (TYLENOL) 160 MG/5ML oral solution 650 mg, 650 mg, Oral, Q4H PRN OR acetaminophen (TYLENOL) suppository 650 mg, 650 mg, Rectal, Q4H PRN, Charles Guerrero MD albumin human 25 % IV SOLN 12.5 g, 12.5 g, Intravenous, PRN, Charles Guerrero MD, 12.5 g at 06/08/25 1507 amiodarone (PACERONE) tablet 200 mg, 200 mg, Oral, BID, Charles Guerrero MD, 200 mg at 027 apixaban (ELIQUIS) tablet 5 mg, 5 mg, Oral, Q12H, Ivonne Ralph MD, 5 mg at 06/12/252026 aspirin chewable tablet 81 mg, 81 mg, Oral, Daily, 81 mg at 06/12/25835 OR aspirin suppository 300 mg, 300 mg, Rectal, Daily, Charles Guerrero MD atorvastatin (LIPITOR) tablet 80 mg, 80 mg, Oral, Nightly, Charles Guerrero MD, 80 mg at 06/12/252026 sennosides-docusate (PERICOLACE) 8.6-50 MG per tablet 2 tablet, 2 tablet, Oral, BID PRN, 2 tablet at 06/12/25835 AND polyethylene glycol (MIRALAX) packet 17 g, 17 g, Oral, Daily PRN AND bisacodyl (DULCOLAX) EC tablet 5 mg, 5 mg, Oral, Daily PRN AND bisacodyl (DULCOLAX) suppository 10 mg, 10 mg, Rectal, Daily PRN, Charles Guerrero MD Calcium Replacement - Follow Nurse / BPA Driven Protocol, , Not Applicable, PRN, Charles Guerrero MD guaiFENesin (MUCINEX) 12 hr tablet 600 mg, 600 mg, Oral, Q12H, Charles Guerrero MD, 600 mg at 06/12/252026 heparin (porcine) injection 2,000 Units, 2,000 Units, Intracatheter, PRN, Rehan Lincoln MD, 2,000 Units at 06/11/25 120 HYDROmorphone (DILAUDID) injection 0.5 mg, 0.5 mg, Intravenous, Q2H PRN AND naloxone (NARCAN) injection 0.1 mg, 0.1 mg, Intravenous, Q5 Min PRN, Charles Guerrero MD ipratropium-albuterol (DUO-NEB) nebulizer solution 3 mL, 3 mL, Nebulization, Q6H PRN, Ivonne Ralph MD Magnesium Standard Dose Replacement - Follow Nurse / BPA Driven Protocol, , Not Applicable, PRN, Charles Guerrero MD nitroglycerin (NITROSTAT) SL tablet 0.4 mg, 0.4 mg, Sublingual, Q5 Min PRN, Charles Guerrero MD ondansetron (ZOFRAN) injection 4 mg, 4 mg, Intravenous, Q6H PRN, Charles Guerrero MD, 4 mg at 06/08/25 1351 oxyCODONE-acetaminophen (PERCOCET) 5-325 MG per tablet 1 tablet, 1 tablet, Oral, Q4H PRN, Charles Guerrero MD, 1 tablet at 06/09/252014 pantoprazole (PROTONIX) EC tablet 40 mg, 40 mg, Oral, Daily, Charles Guerrero MD, 40 mg at 06/12/25 0836 Pharmacy to dose vancomycin, , Not Applicable, Continuous PRN, Pantera Dc MD Phosphorus Replacement - Follow Nurse / BPA Driven Protocol, , Not Applicable, PRN, Charles Guerrero MD Potassium Replacement - Follow Nurse / BPA Driven Protocol, , Not Applicable, PRN, Charles Guerrero MD simethicone (MYLICON) chewable tablet 80 mg, 80 mg, Oral, 4x Daily PRN, Ivonne Bah MD, 80 mg at 06/10/25 0957 sodium chloride 0.9 % flush 10 mL, 10 mL, Intravenous, Q12H, Charles Guerrero MD, 10 mL at 06/12/25 0837 sodium chloride 0.9 % flush 10 mL, 10 mL, Intravenous, PRN, Charles Guerrero MD sodium chloride 0.9 % flush 10 mL, 10 mL, Intravenous, Q12H, Charles Guerrero MD, 10 mL at 06/12/25 0835 sodium chloride 0.9 % flush 10 mL, 10 mL, Intravenous, PRN, Charles Guerrero MD sodium chloride 0.9 % infusion 40 mL, 40 mL, Intravenous, PRN, Charles Guerrero MD sodium chloride nasal spray 2 spray, 2 spray, Each Nare, Q30 Min PRN, Laure Billings APRN, 2 spray at 06/13/25 0415 [START ON 06/14/2025] vancomycin (dosing per levels), , Not Applicable, Daily, Pontrich, Veena, RPH vancomycin (VANCOCIN) 1,000 mg in sodium chloride 0.9 % 250 mL IVPB-VTB, 1,000 mg, Intravenous, Once, Veena Liu RPH Antibiotics: Anti-Infectives (From admission, onward) Ordered Dose/Rate Route Frequency Start Stop 06/12/25 0739 DAPTOmycin (CUBICIN) 950 mg in sodium chloride 0.9 % 50 mL IVPB Status: Discontinued Ordering Provider: Ivonne Ralph MD 9 mg/kg ?? 106 kg (Adjusted) 100 mL/hr over 30 Minutes Intravenous Every Wednesday06/15/25 1600 06/12/25 0908 06/12/25 0958 vancomycin (dosing per levels) Ordering Provider: Veena Liu RPH Not Applicable Daily 06/14/25 0900 06/24/25 0859 06/12/25 0739 DAPTOmycin (CUBICIN) 650 mg in sodium chloride 0.9 % 50 mL IVPB Status: Discontinued Ordering Provider: Ivonne Ralph MD 6 mg/kg ?? 106 kg (Adjusted) 100 mL/hr over 30 Minutes Intravenous Once per day on Wednesday06/13/25 1600 06/12/25 0908 06/12/25 0910 vancomycin (dosing per levels) Status: Discontinued Ordering Provider: Anjana Cali, PharmD Not Applicable Daily 06/13/25 0906/12/25 0958 06/12/25 09 vancomycin (VANCOCIN) 1,000 mg in sodium chloride 0.9 % 250 mL IVPB-VTB Ordering Provider: Veena Liu RPH 1,000 mg 250 mL/hr over 60 Minutes Intravenous Once 06/13/25 0906/12/25 0958 vancomycin 2250 mg/500 mL 0.9% NS IVPB ([facility]) Ordering Provider: Veena Liu RPH 2,250 mg over 135 Minutes Intravenous Once 06/12/25 1800 06/12/25202006/12/25 0908 Pharmacy to dose vancomycin Ordering Provider: Pantera Dc MD Not Applicable Continuous PRN 06/12/25 0907 06/22/25 0906 06/11/25 1106 DAPTOmycin (CUBICIN) 650 mg in sodium chloride 0.9 % 50 mL IVPB Status: Discontinued Ordering Provider: Pura Cross RPH 6 mg/kg ?? 106 kg (Adjusted) 100 mL/hr over 30 Minutes Intravenous Once per day on Wednesday06/11/25 2100 06/12/25 0739 06/11/25 1055 DAPTOmycin (CUBICIN) 650 mg in sodium chloride 0.9 % 50 mL IVPB Status: Discontinued Ordering Provider: Ivonne Ralph MD 6 mg/kg ?? 106 kg (Adjusted) 100 mL/hr over 30 Minutes Intravenous Every 24 Hours 06/11/25 1145 06/11/25 1106 06/07/25 1532 metroNIDAZOLE (FLAGYL) IVPB 500 mg Status: Discontinued Ordering Provider: Charles Guerrero MD 500 mg 200 mL/hr over 30 Minutes Intravenous Every 8 Hours 06/07/25 2000 06/10/25 0722 06/07/25 0437 metroNIDAZOLE (FLAGYL) IVPB 500 mg Status: Discontinued Ordering Provider: Rolan Muro MD 500 mg 200 mL/hr over 30 Minutes Intravenous Every 8 Hours 06/07/25 0600 06/07/25 1532 06/07/25 0437 cefTRIAXone (ROCEPHIN) 2,000 mg in sodium chloride 0.9 % 100 mL MBP Status: Discontinued Ordering Provider: Pantera Dc MD 2,000 mg 200 mL/hr over 30 Minutes Intravenous Every 24 Hours 06/07/25 0600 06/12/25 0908 Review of Systems: He is confused and cannot provide a reliable review of systems Physical Exam: Vital Signs Temp (24hrs), Av ??F (36.7 ??C), Min:97.8 ??F (36.6 ??C), Max:98.3 ??F (36.8 ??C) Temp Min: 97.8 ??F (36.6 ??C) Max: 98.3 ??F (36.8 ??C) BP Min: 148/70 Max: 185/101 Pulse Min: 61 Max: 72 Resp Min: 15 Max: 18 SpO2 Min: 76 % Max: 99 % GENERAL: Awake and alert, in no acute distress. He is pleasantly confused HEENT: Normocephalic, atraumatic. PERRL. EOMI. No conjunctival injection. No icterus. Decrease Leftparotid swelling and tenderness. NECK: Supple. HEART: 3/6 systolic murmur LUNGS:Diminished at left lung base with basilar rales, relatively clear right lung field without wheezing,. Normal respiratory effort. Nonlabored. ABDOMEN: Soft, nontender, nondistended.. No rebound or guarding. NO mass or HSM. Obese. EXT: No cyanosis 1+ edema. No cord. : Without Archibald catheter. MSK: No joint effusions or erythema SKIN: Warm and dry without cutaneous eruptions on Inspection/palpation. NEURO: pleasantly confused Motor 5/5 strength Left CW HD cath dry without erythema Laboratory Data Results from last 7 days Lab Units 06/11/25 0810 06/10/25 1522 06/08/25 0848 WBC 10*3/mm3 11.08* 11.79* 10.13 HEMOGLOBIN g/dL 8.5* 8.9* 8.6* HEMATOCRIT % 27.2* 28.5* 27.7* PLATELETS 10*3/mm3 206 179 195 Results from last 7 days Lab Units 06/11/25 0810 SODIUM mmol/L 135* POTASSIUM mmol/L 5.5* CHLORIDE mmol/L 95* CO2 mmol/L 22.9 BUN mg/dL 66.9* CREATININE mg/dL 7.96* GLUCOSE mg/dL 98 CALCIUM mg/dL 8.2* Results from last 7 days Lab Units 06/11/25 0810 ALK PHOS U/L 112 BILIRUBIN mg/dL 0.4 BILIRUBIN DIRECT mg/dL 0.2 ALT (SGPT) U/L 455* AST (SGOT) U/L 168* Results from last 7 days Lab Units 06/07/25 0603 LACTATE mmol/L 0.9 Estimated Creatinine Clearance: 11.8 mL/min (A) (by C-G formula based on SCr of 7.96 mg/dL (H)). Microbiology: Microbiology Results (last 10 days) Procedure Component Value - Date/Time MRSA Screen, PCR (Inpatient) - Swab, Nares [[id number]] (Abnormal) Collected: 06/08/251904 Lab Status: Final result Specimen: Swab from Nares Updated: 06/08/252151 MRSA PCR Positive Narrative: The negative predictive value of this diagnostic test is high and should only be used to consider de-escalating anti-MRSA therapy. A positive result may indicate colonization with MRSA and must be correlated clinically. KIMANI AURIS PCR - Swab, Axilla Right, Axilla Left and Groin [[id number]] Collected: 06/07/25 0845 Lab Status: Final result Specimen: Swab from Axilla Right, Axilla Left and Groin Updated: 06/08/25 1715 KIMANI AURIS PCR (MITUL) Not Detected Blood Culture - Blood, Wrist, Left [[id number]] (Normal) Collected: 06/07/25 0603 Lab Status: Final result Specimen: Blood from Wrist, Left Updated: 06/12/25 0730 Blood Culture No growth at 5 days Narrative: Aerobic Bottle Only Less than seven (7) mL's of blood was collected. Insufficient quantity may yield false negative results. Blood Culture - Blood, Wrist, Left [[id number]] (Normal) Collected: 06/07/25 0601 Lab Status: Final result Specimen: Blood from Wrist, Left Updated: 06/12/25 0730 Blood Culture No growth at 5 days Narrative: Aerobic Bottle Only Less than seven (7) mL's of blood was collected. Insufficient quantity may yield false negative results. Radiology: Imaging Results (Last 72 Hours) Procedure Component Value Units Date/Time CT Soft Tissue Neck Without Contrast [[id number]] Collected: 06/11/25 0737 Updated: 06/11/25 0747 Narrative: CT SOFT TISSUE NECK WO CONTRAST Date of Exam: 06/10/2025 10:57 PM EDT Indication: swelling and pain. Comparison: 06/06/2025 Technique: Axial CT images were obtained of the neck without contrast administration. Reconstructedcoronal and sagittal images were also obtained. Automated exposure control and iterative construction methods were used. Findings: Visualized intracranial contents and globes and orbits appear within normal limits. Nasopharynx is normal. Oropharynx including base of tongue and epiglottis appear within normal limits. Larynx and piriform sinuses appear within normal limits. Visualized upper trachea and esophagus appear normal. Thyroid gland appears within normal limits. Bilateral submandibular glands are within There is subcutaneous fat stranding overlying the left parotid gland. The parotid glands are largely fatty replaced. There is edema and fat stranding within the left parotid gland consistent with parotitis. No definite parotid duct dilation or stone identified. No soft tissue mass visualized. Right parotid gland appears within limits. No pathologically enlarged cervical lymph nodes. There is a left internal jugular central venous catheter in place. There are right subclavian and internal jugular vein stents.. Degenerative changes are noted of the cervical spine. No lytic or sclerotic bony lesion. There is complete opacification of the left maxillary sinus unchanged. There is a polyp or mucous retention cyst within the posterior right maxillary sinus. Partial opacification of the left ethmoid air cells. There is complete opacification of the left mastoid air cells. Left middle ear cavity appears clear. There is patchy airspace disease in the left upper lobe, grossly unchanged from prior study consistent with pneumonia. Impression: Impression: 1. Enlargement and fat stranding in and around the left parotid gland consistent with changes of parotiditis. No definite obstructing stone identified. 2. No cervical lymphadenopathy. 3. Changes of chronic sinusitis and left mastoiditis. 4. No significant change in left upper lobe airspace disease compatible with pneumonia. Electronically Signed: Jose Jesus MD 06/11/2025 7:44 AM EDT Workstation ID: [id number] I read his radiographic images. Impression: Pneumococcal bacteremia-secondary to left lower lobe pneumonia. There is no evidence of endocarditis by JARED. Choledocholelithiasis- s/p ERCP 06/08 with stone extraction and stent placement. S/P cholecystectomy06/09 LLL pneumococcal pneumonia Left parotitis- this is most likely secondary to MRSA. Send he received 5 doses of intravenous daptomycin at dialysis. Acute left occipital lobe cerebral vascular accident Valvular heart disease-with moderate to severe aortic stenosis and mild to moderate mitral regurgitation. There is no evidence of endocarditis by JARED. Severe sepsis- improved. Encephalopathy, toxic/metabolic, improving Acute hypoxic respiratory failure Leukocytosis/neutrophilia Anemia of chronic disease Choledocholithiasis End stage renal disease/Hemodialysis MWF/dialysis catheter in place for almost a year/RUE AVF not working for about a year. Atrial fibrillation/Eliquis on hold Chronic obstructive pulmonary disease Essential hypertension/dyslipidemia PLAN/RECOMMENDATIONS: Vancomycin 1 g IV with each dialysis x 5 doses Possible discharge to rehab Outpatient orders: Vancomycin 1 g IV with each dialysis for total of 5 doses This visit included the following complex service elements: Complex medical decision-making associated with antimicrobial prescribing. In-depth chart review with high level synthesis for complex diagnoses. Managed infection treatment protocol associated with transitions of care for this complex patient. Pantera Dc MD 06/13/2025 07:53 EDT * Beau Nieves MD - 06/12/2025 1:43 PM EDT LOS: 5 days Patient Care Team: Jeffrey Sun MD as PCP - General (Family Medicine) Chief Complaint: 74-year-old with history of ESRD on HD MWF at [facility] last dialyzed yesterday. Patient was transferred from correction due to lethargy, confusion, weakness, initially transferred to [facility]. Subjective Interval History: HD yesterday tolerated treatment well. Plan for HD in AM. Review of Systems: No nausea vomiting chest pain or shortness of breath Objective Vital Sign Min/Max for last 24 hours Temp Min: 97.8 ??F (36.6 ??C) Max: 98 ??F (36.7 ??C) BP Min: 143/79 Max: 178/81 Pulse Min: 65 Max: 73 Resp Min: 16 Max: 19 SpO2 Min: 76 % Max: 99 % Flow (L/min) (Oxygen Therapy) Min: 3 Max: 4 Weight Min: 134 kg (295 lb) Max: 134 kg (295 lb) Flowsheet Rows Flowsheet Row First Filed Value Admission Height 193 cm (76 ) Documented at 06/07/2025 0243 Admission Weight 134 kg (295 lb 6.7 oz) Documented at 06/07/2025 0200 No intake/output data recorded. I/O last 3 completed shifts: In: - Out: 100 [Urine:100] Physical Exam: General Appearance: male no acute distress. Eyes: PER, EOMI. Neck: Supple no JVD. Lungs: Clear to auscultation. Equal chest movement, nonlabored. Heart: RRR. Abdomen: Obesity, laparoscopic bandages noted. Mild tenderness Extremities no cyanosis. Neuro: No focal deficit, moving all extremities, alert oriented X 3 WBC WBC Date Value Ref Range Status 06/11/2025 11.08 (H) 3.40 - 10.80 10*3/mm3 Final 06/10/2025 11.79 (H) 3.40 - 10.80 10*3/mm3 Final HGB Hemoglobin Date Value Ref Range Status 06/11/2025 8.5 (L) 13.0 - 17.7 g/dL Final 06/10/2025 8.9 (L) 13.0 - 17.7 g/dL Final HCT Hematocrit Date Value Ref Range Status 06/11/2025 27.2 (L) 37.5 - 51.0 % Final 06/10/2025 28.5 (L) 37.5 - 51.0 % Final Platlets No results found for: LABPLAT MCV MCV Date Value Ref Range Status 06/11/2025 98.9 (H) 79.0 - 97.0 fL Final 06/10/2025 100.7 (H) 79.0 - 97.0 fL Final Sodium Sodium Date Value Ref Range Status 06/11/2025 135 (L) 136 - 145 mmol/L Final 06/10/2025 134 (L) 136 - 145 mmol/L Final Potassium Potassium Date Value Ref Range Status 06/11/2025 5.5 (H) 3.5 - 5.2 mmol/L Final 06/10/2025 5.3 (H) 3.5 - 5.2 mmol/L Final Chloride Chloride Date Value Ref Range Status 06/11/2025 95 (L) 98 - 107 mmol/L Final 06/10/2025 94 (L) 98 - 107 mmol/L Final CO2 CO2 Date Value Ref Range Status 06/11/2025 22.9 22.0 - 29.0 mmol/L Final 06/10/2025 21.2 (L) 22.0 - 29.0 mmol/L Final BUN BUN Date Value Ref Range Status 06/11/2025 66.9 (H) 8.0 - 23.0 mg/dL Final 06/10/2025 60.9 (H) 8.0 - 23.0 mg/dL Final Creatinine Creatinine Date Value Ref Range Status 06/11/2025 7.96 (H) 0.76 - 1.27 mg/dL Final 06/10/2025 7.36 (H) 0.76 - 1.27 mg/dL Final Calcium Calcium Date Value Ref Range Status 06/11/2025 8.2 (L) 8.6 - 10.5 mg/dL Final 06/10/2025 8.7 8.6 - 10.5 mg/dL Final PO4 No results found for: CAPO4 Albumin Albumin Date Value Ref Range Status 06/11/2025 3.1 (L) 3.5 - 5.2 g/dL Final 06/10/2025 3.2 (L) 3.5 - 5.2 g/dL Final Magnesium Magnesium Date Value Ref Range Status 06/11/2025 2.2 1.6 - 2.4 mg/dL Final 06/09/2025 2.0 1.6 - 2.4 mg/dL Final Uric Acid No results found for: URICACID Results Review: I reviewed the patient's new clinical results. amiodarone, 200 mg, Oral, BID apixaban, 5 mg, Oral, Q12H aspirin, 81 mg, Oral, Daily Or aspirin, 300 mg, Rectal, Daily atorvastatin, 80 mg, Oral, Nightly guaiFENesin, 600 mg, Oral, Q12H ipratropium-albuterol, 3 mL, Nebulization, 4x Daily - RT pantoprazole, 40 mg, Oral, Daily sodium chloride, 10 mL, Intravenous, Q12H sodium chloride, 10 mL, Intravenous, Q12H [START ON 06/14/2025] vancomycin (dosing per levels), , Not Applicable, Daily [START ON 06/13/2025] vancomycin, 1,000 mg, Intravenous, Once vancomycin, 2,250 mg, Intravenous, Once Pharmacy to dose vancomycin, Medication Review: Reviewed Assessment & Plan Occipital stroke Choledocholithiasis Acute respiratory failure with hypoxia CAP (community acquired pneumonia) ESRD (end stage renal disease) Atrial fibrillation 1. ESRD: On HD at [facility] 2. Atrial fibrillation on Eliquis 3. Hypertension 4. Anemia of chronic kidney disease 5. Hyperlipidemia 6. COPD. 7. Ischemic occipital stroke. Plan: HD per [facility]. Renal diet Fluid restriction less than 1500 mL/day. Start home medications. High risk complex patient with multiple medical problems. Beau Nieves MD 06/12/25 13:43 EDT * Ivonne Ralph MD - 06/12/2025 12:30 PM EDT Images from the original note were not included. [facility] PROGRESS NOTE Patient Name: Alexa Fuentes : 1950 Date of Admission: 06/06/2025 Primary Care Physician: Jeffrey Sun MD Subjective Subjective CC: F/U AMS HPI: Abd pain significantly better today. Pt denies any SOA or abd pain. Ok with advancing diet. Objective Objective Vital Signs: Temp: [97.8 ??F (36.6 ??C)-98 ??F (36.7 ??C)] 97.8 ??F (36.6 ??C) Heart Rate: [65-73] 70 Resp: [12-19] 18 BP: (119-178)/(59-87) 178/81 Flow (L/min) (Oxygen Therapy): [3-4] 4 Physical Exam Constitutional: General: He is not in acute distress. HENT: Head: Comments: Bilateral parotid gland swelling and tenderness improved today Cardiovascular: Rate and Rhythm: Normal rate and regular rhythm. Heart sounds: Normal heart sounds. Pulmonary: Effort: Pulmonary effort is normal. Breath sounds: Normal breath sounds. Abdominal: General: There is no distension. Palpations: Abdomen is soft. Tenderness: There is no abdominal tenderness. Comments: Surgical sites covered in steri strips Musculoskeletal: Right lower leg: No edema. Left lower leg: No edema. Neurological: General: No focal deficit present. Mental Status: He is alert. Mental status is at baseline. Psychiatric: Mood and Affect: Mood normal. Thought Content: Thought content normal. Results Reviewed: LAB RESULTS: Lab 06/11/25 0810 06/10/25 1522 06/08/25 0848 06/07/25 0603 06/07/25 0057 WBC 11.08* 11.79* 10.13 -- 18.26* HEMOGLOBIN 8.5* 8.9* 8.6* -- 9.0* HEMATOCRIT 27.2* 28.5* 27.7* -- 28.1* PLATELETS 206 179 195 -- 120* NEUTROS ABS -- -- -- -- 15.45* IMMATURE GRANS (ABS) -- -- -- -- 0.90* LYMPHS ABS -- -- -- -- 0.52* MONOS ABS -- -- -- -- 1.37* EOS ABS -- -- -- -- 0.00 MCV 98.9* 100.7* 98.9* -- 97.6* LACTATE -- -- -- 0.9 -- Lab 06/11/25 0810 06/10/25 1522 06/09/25 1426 06/08/25 0848 06/07/25 0105 06/07/25 0057 SODIUM 135* 134* -- 137 -- 136 POTASSIUM 5.5* 5.3* -- 5.1 -- 5.0 CHLORIDE 95* 94* -- 93* -- 93* CO2 22.9 21.2* -- 24.1 -- 27.9 ANION GAP 17.1* 18.8* -- 19.9* -- 15.1* BUN 66.9* 60.9* -- 80.3* -- 52.4* CREATININE 7.96* 7.36* -- 8.13* -- 6.07* EGFR 6.5* 7.1* -- 6.3* -- 9.0* GLUCOSE 98 120* -- 66 -- 77 CALCIUM 8.2* 8.7 -- 8.8 -- 9.0 MAGNESIUM 2.2 -- 2.0 -- -- 1.8 PHOSPHORUS -- 8.9* -- -- -- -- HEMOGLOBIN A1C -- -- -- -- 4.9 -- TSH -- -- -- -- -- 0.534 Lab 06/11/25 0810 06/10/25 1522 06/08/25 0848 06/07/25 0057 TOTAL PROTEIN 6.1 5.8* 5.9* 6.1 ALBUMIN 3.1* 3.2* 2.8* 3.0* GLOBULIN -- 2.6 3.1 3.1 ALT (SGPT) 455* 558* 982* 652* AST (SGOT) 168* 226* 730* 558* BILIRUBIN 0.4 0.4 0.6 0.9 INDIRECT BILIRUBIN 0.2 -- -- -- BILIRUBIN DIRECT 0.2 -- -- -- ALK PHOS 112 118* 111 102 Lab 06/07/25 0057 CHOLESTEROL 62 LDL CHOL 15 HDL CHOL 33* TRIGLYCERIDES 58 Brief Urine Lab Results None Microbiology Results Abnormal Procedure Component Value - Date/Time MRSA Screen, PCR (Inpatient) - Swab, Nares [[id number]] (Abnormal) Collected: 06/08/25 1905 Lab Status: Final result Specimen: Swab from Nares Updated: 06/08/252151 MRSA PCR Positive Narrative: The negative predictive value of this diagnostic test is high and should only be used to consider de-escalating anti-MRSA therapy. A positive result may indicate colonization with MRSA and must be correlated clinically. CT Soft Tissue Neck Without Contrast Result Date: 06/11/2025 CT SOFT TISSUE NECK WO CONTRAST Date of Exam: 06/10/2025 10:57 PM EDT Indication: swelling and pain.Comparison: 06/06/2025 Technique: Axial CT images were obtained of the neck without contrast administration. Reconstructed coronal and sagittal images were also obtained. Automated exposure control and iterative construction methods were used. Findings: Visualized intracranial contents and globes and orbits appear within normal limits. Nasopharynx is normal. Oropharynx including base of tongue andepiglottis appear within normal limits. Larynx and piriform sinuses appear within normal limits. Visualized upper trachea and esophagus appear normal. Thyroid gland appears within normal limits. Bilateral submandibular glands are within There is subcutaneous fat stranding overlying the left parotidgland. The parotid glands are largely fatty replaced. There is edema and fat stranding within the left parotid gland consistent with parotitis. No definite parotid duct dilation or stone identified. No soft tissue mass visualized. Right parotid gland appears within limits. No pathologically enlarged cervical lymph nodes. There is a left internal jugular central venous catheter in place. There areright subclavian and internal jugular vein stents.. Degenerative changes are noted of the cervical spine. No lytic or sclerotic bony lesion. There is complete opacification of the left maxillary sinus unchanged. There is a polyp or mucous retention cyst within the posterior right maxillary sinus. Partial opacification of the left ethmoid air cells. There is complete opacification of the left mastoid air cells. Left middle ear cavity appears clear. There is patchy airspace disease in the left upper lobe, grossly unchanged from prior study consistent with pneumonia. Impression: Impression: 1. Enlargement and fat stranding in and around the left parotid gland consistent with changes of parotiditis. No definite obstructing stone identified. 2. No cervical lymphadenopathy. 3. Changes of chronic sinusitis and left mastoiditis. 4. No significant change in left upper lobe airspace disease compatible with pneumonia. Electronically Signed: Jose Jesus MD 06/11/2025 7:44 AM EDT Workstation ID: [id number] Results for orders placed during the hospital encounter of 06/06/25 Adult Transesophageal Echo 3D (JARED) W/ Cont If Necessary Per Protocol 06/11/2025 3:04 PM Interpretation Summary Left ventricular ejection fraction appears to be 56 - 60%. No evidence of a left atrial appendage thrombus was present. A catheter is present in the right atrium. Severe mitral annular calcification is present. Mild to moderate mitral valve regurgitation is present. No significant mitral valve stenosis is present. There is moderate calcification of the aortic valve. Moderate aortic valve regurgitation is present. Moderate aortic valve stenosis is present. Mean gradient 24mmHg Moderate tricuspid valve regurgitation is present. Estimated right ventricular systolic pressure from tricuspid regurgitation is moderately elevated (45-55 mmHg). There is moderate, (grade 3) plaque in the aortic arch present. Mild dilation of the aortic root is present. Aortic root measures 4.1 cm. There is moderate, (grade3) plaque in the aortic arch present. No valvular vegetations noted. No echocardiographic evidence of endocarditis I supervised and directed an independent trained observer with the assistance of monitoring the patient's level of consciousness and physiological status throughout the procedure. Intraoperative service time of 20 minutes I have personally reviewed the therapy plans: [] PT/OT/ ST Therapy Plans Current medications: Scheduled Meds:amiodarone, 200 mg, Oral, BID apixaban, 5 mg, Oral, Q12H aspirin, 81 mg, Oral, Daily Or aspirin, 300 mg, Rectal, Daily atorvastatin, 80 mg, Oral, Nightly guaiFENesin, 600 mg, Oral, Q12H ipratropium-albuterol, 3 mL, Nebulization, 4x Daily - RT pantoprazole, 40 mg, Oral, Daily sodium chloride, 10 mL, Intravenous, Q12H sodium chloride, 10 mL, Intravenous, Q12H [START ON 06/14/2025] vancomycin (dosing per levels), , Not Applicable, Daily [START ON 06/13/2025] vancomycin, 1,000 mg, Intravenous, Once vancomycin, 2,250 mg, Intravenous, Once Continuous Infusions:Pharmacy to dose vancomycin, PRN Meds:. acetaminophen OR acetaminophen OR acetaminophen albumin human senna-docusate sodium AND polyethylene glycol AND bisacodyl AND bisacodyl Calcium Replacement - Follow Nurse / BPA Driven Protocol heparin (porcine) HYDROmorphone AND naloxone ipratropium-albuterol Magnesium Standard Dose Replacement - Follow Nurse / BPA Driven Protocol nitroglycerin ondansetron oxyCODONE-acetaminophen Pharmacy to dose vancomycin Phosphorus Replacement - Follow Nurse / BPA Driven Protocol Potassium Replacement - Follow Nurse / BPA Driven Protocol simethicone sodium chloride sodium chloride sodium chloride Assessment & Plan Assessment & Plan Active Hospital Problems Diagnosis POA Occipital stroke [I63.9] Yes Choledocholithiasis [K80.50] Yes Acute respiratory failure with hypoxia [J96.01] Yes CAP (community acquired pneumonia) [J18.9] Yes ESRD (end stage renal disease) [N18.6] Yes Atrial fibrillation [I48.91] Yes Resolved Hospital Problems No resolved problems to display. Brief Hospital Course to date: Alexa Fuentes is a 74 y.o. male with hx of HTN, HLD, COPD, Afib on Eliquis, and ESRD on HD who presents from [facility] due to AMS and concern for stroke. In addition he was found to have pneumonia and possible choledocholithiasis. Stroke team accepted in transfer to [facility]. Acute hypoxic respiratory failure Pneumonia Strep pneumo bacteremia Sepsis --CT chest at OSH showed bilateral ground-glass opacities --Required non-rebreather mask at OSH, currently on 3 liters and does not wear home oxygen at baseline --OSH blood cultures positive for strep pneumo, attempting again today to obtain susceptibilities for the OSH -- JARED negative for signs of endocarditis --Scheduled and PRN duonebs --Continue Rocephin --ID following, planning on outpt vanc with HD. Discussed with CM as well, they will call his HD facility today to make sure they are aware and can accommodate this --Wean O2 as tolerated Acute CVA, left occipital lobe --CT head at OSH revealed acute/subacute left occipital lobe ischemia, CTA showed no large vessel occlusion. Given that he is on Eliquis, with the last dose taken that morning, he was not a candidatefor TNK. --MRI brain here confirms tiny acute infarct within the left occipital lobe. Questionable additional punctate cortical acute/subacute infarct within the left centrum semiovale. --Bilateral carotid duplex showing less than 50% stenosis bilaterally --Echo with EF 53% and grade II diastolic dysfunction, negative saline test, --Stroke Neurology following, ASA 81 mg; continue atorvastatin 80 mg nightly -- will increase eliquis to 5mg BID per stroke neruo and cards recs --PT/OT/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 evaluations- back to extended care Choledocholithiasis --CT A/P at OSH showed a distended gallbladder with a 5 mm stone, wall thickening, surrounding pericholecystic fluid, and mild intrahepatic ductal dilation, highly suspicious for choledocholithiasis.These findings were consistent with prior studies, including MRI. --MRCP 06/07/25: 7 mm stone in lower common bile duct, cholelithiasis without cholecystitis --GI consulted s/p ERCP -- to went to the OR 06/[address] Guerrero for CCY - discussed with Dr Guerrero- ok to resume eliquis - advance diet as tolerated Acute parotiditis - acute parotid gland swelling worse on L that started yesterday afternoon - CT soft tissue neck shows enlargement and fat stranding around L parotid gland - started on dapto, transitioning to vanc with HD - viral panel pending - pt reports getting all childhood vaccines - better today Acute encephalopathy-resolved --Likely multifactorial due to pneumonia, hypoxia, stroke --back to baseline ESRD --On HD MWF --Nephrology following Afib --resume eliquis, increased to 5mg --Continue home Amiodarone HTN HLD --Not on any home BP meds --LDL 15 --Continue statin COPD --Scheduled and PRN nebs Expected Discharge Location and Transportation: back to extended care after HD tomorrow Expected Discharge Expected Discharge Date: 06/11/2025; Expected Discharge Time: VTE Prophylaxis: Pharmacologic & mechanical VTE prophylaxis orders are present. AM-PAC 6 Clicks Score (PT): 8 (06/11/251999) CODE STATUS: Code Status and Medical Interventions: No CPR (Do Not Attempt to Resuscitate); Limited Support; No intubation (DNI) Ordered at: 06/11/25 1432 Code Status (Patient has no pulse and is not breathing): No CPR (Do Not Attempt to Resuscitate) Medical Interventions (Patient has pulse or is breathing): Limited Support Medical Intervention Limits: No intubation (DNI) Level Of Support Discussed With: Patient Ivonne Ralph MD 06/12/25 * Veena Liu, [facility] - 06/12/2025 10:00 AM EDT Images from the original note were not included. Pharmacy Consult - Vancomycin Dosing and Monitoring (Renal Dysfunction / Dialysis) Alexa Fuentes is a 74 y.o. male receiving vancomycin therapy. Indication: Bacteremia Consulting Provider: ID ID Consult: Yes Goal Trough: 20-25 mcg/mL Current Antimicrobial Therapy Anti-Infectives (From admission, onward) Ordered Dose/Rate Route Frequency Start Stop 06/12/25 0739 DAPTOmycin (CUBICIN) 950 mg in sodium chloride 0.9 % 50 mL IVPB Status: Discontinued Ordering Provider: Ivonne Ralph MD 9 mg/kg ?? 106 kg (Adjusted) 100 mL/hr over 30 Minutes Intravenous Every Wednesday06/15/25 1600 06/12/25 0908 06/12/25 0739 DAPTOmycin (CUBICIN) 650 mg in sodium chloride 0.9 % 50 mL IVPB Status: Discontinued Ordering Provider: Ivonne Ralph MD 6 mg/kg ?? 106 kg (Adjusted) 100 mL/hr over 30 Minutes Intravenous Once per day on Wednesday06/13/25 1600 06/12/25 0908 06/12/25 0910 vancomycin (dosing per levels) Ordering Provider: Anjana Cali PharmD Not Applicable Daily 06/13/25 0900 06/23/25 0859 06/12/25 0908 Pharmacy to dose vancomycin Ordering Provider: Pantera Dc MD Not Applicable Continuous PRN 06/12/25 0907 06/22/25 0906 06/11/25 1106 DAPTOmycin (CUBICIN) 650 mg in sodium chloride 0.9 % 50 mL IVPB Status: Discontinued Ordering Provider: Pura Cross RPH 6 mg/kg ?? 106 kg (Adjusted) 100 mL/hr over 30 Minutes Intravenous Once per day on Wednesday06/11/25 2100 06/12/25 0739 06/11/25 1055 DAPTOmycin (CUBICIN) 650 mg in sodium chloride 0.9 % 50 mL IVPB Status: Discontinued Ordering Provider: Ivonne Ralph MD 6 mg/kg ?? 106 kg (Adjusted) 100 mL/hr over 30 Minutes Intravenous Every 24 Hours 06/11/25 1145 06/11/25 1106 06/07/25 1532 metroNIDAZOLE (FLAGYL) IVPB 500 mg Status: Discontinued Ordering Provider: Charles Guerrero MD 500 mg 200 mL/hr over 30 Minutes Intravenous Every 8 Hours 06/07/25 2000 06/10/25 0722 06/07/25 0437 metroNIDAZOLE (FLAGYL) IVPB 500 mg Status: Discontinued Ordering Provider: Rolan Muro MD 500 mg 200 mL/hr over 30 Minutes Intravenous Every 8 Hours 06/07/25 0600 06/07/25 1532 06/07/25 0437 cefTRIAXone (ROCEPHIN) 2,000 mg in sodium chloride 0.9 % 100 mL MBP Status: Discontinued Ordering Provider: Pantera Dc MD 2,000 mg 200 mL/hr over 30 Minutes Intravenous Every 24 Hours 06/07/25 0600 06/12/25 0908 Allergies Allergies as of 06/06/2025 (Not on File) Labs Results from last 7 days Lab Units 06/11/25 0810 06/10/25 1522 06/08/25 0848 BUN mg/dL 66.9* 60.9* 80.3* CREATININE mg/dL 7.96* 7.36* 8.13* Results from last 7 days Lab Units 06/11/25 0810 06/10/25 1522 06/08/25 0848 WBC 10*3/mm3 11.08* 11.79* 10.13 Evaluation of Dosing Last Dose Received in the ED/Outside Facility: -- Is Patient on Dialysis or Renal Replacement: Yes, HD Height - 193 cm (75.98 ) Weight - 134 kg (295 lb) Estimated Creatinine Clearance: 11.8 mL/min (A) (by C-G formula based on SCr of 7.96 mg/dL (H)). Intake & Output (last 3 days) 06/09 0706/10 0706/10 0706/11 0706/11 0706/12 0706/12 0706/13 07 I.V. (mL/kg) 600 (4.5) Total Intake(mL/kg) 600 (4.5) Urine (mL/kg/hr) 100 (0) Total Output 100 Net +600 -100 Urine Unmeasured Occurrence 1 x Microbiology Microbiology Results (last 10 days) Procedure Component Value - Date/Time MRSA Screen, PCR (Inpatient) - Swab, Nares [[id number]] (Abnormal) Collected: 06/08/25 1905 Lab Status: Final result Specimen: Swab from Nares Updated: 06/08/25 215 MRSA PCR Positive Narrative: The negative predictive value of this diagnostic test is high and should only be used to consider de-escalating anti-MRSA therapy. A positive result may indicate colonization with MRSA and must be correlated clinically. KIMANI AURIS PCR - Swab, Axilla Right, Axilla Left and Groin [[id number]] Collected: 06/07/25 0845 Lab Status: Final result Specimen: Swab from Axilla Right, Axilla Left and Groin Updated: 06/08/25 1715 KIMANI AURIS PCR ([facility]) Not Detected Blood Culture - Blood, Wrist, Left [[id number]] (Normal) Collected: 06/07/25 0603 Lab Status: Final result Specimen: Blood from Wrist, Left Updated: 06/12/25 0730 Blood Culture No growth at 5 days Narrative: Aerobic Bottle Only Less than seven (7) mL's of blood was collected. Insufficient quantity may yield false negative results. Blood Culture - Blood, Wrist, Left [[id number]] (Normal) Collected: 06/07/25 0601 Lab Status: Final result Specimen: Blood from Wrist, Left Updated: 06/12/25 0730 Blood Culture No growth at 5 days Narrative: Aerobic Bottle Only Less than seven (7) mL's of blood was collected. Insufficient quantity may yield false negative results. Vancomycin Levels Assessment/Plan: 1. Pharmacy to dose vancomycin for bacteremia. Goal trough 20-25 mcg/mL. 2. Patient to receive a loading dose of vancomycin 2250 mg (~17 mg/kg) IV on 06/12 @ 1800. Will schedule first maintenance dose of 1000 mg (~7.5 mg/kg) on 06/13 during last hour of dialysis. 3. Assess clearance by vancomycin level on 06/15 before HD to determine appropriateness of maintenance dose. 4. Pharmacy will continue to monitor renal function, cultures and sensitivities, and clinical status to adjust regimen as necessary. Veena Liu RPH 06/12/2025 09:47 EDT * Charles Guerrero MD - 06/12/2025 8:48 AM EDT Patient Name: Alexa Fuentes Date of : 1950 [id number] Surgery Progress Note Date of visit: 06/12/2025 Subjective Improved abdominal pain. No nausea or vomiting. No fevers or chills. Objective BP 178/81 Pulse 69 Temp 97.8 ??F (36.6 ??C) (Oral) Resp 18 Ht 193 cm (75.98 ) Wt 134 kg (295 lb) SpO2 (!) 76% Comment: sensor off patient/replaced BMI 35.92 kg/m?? No intake or output data in the 24 hours ending 06/12/25 0848 CV: Rhythm regular and rate regular L: Clear to auscultation bilaterally Abd: Bowel sounds positive, soft, appropriately tender, incisions clean dry and intact Ext: No cyanosis, clubbing, edema Recent labs and imaging that are back at this time have been reviewed. A.m. labs pending Assessment & Plan Patient postop day 3 from laparoscopic cholecystectomy for choledocholithiasis. Diet as tolerated from surgical perspective. Pain control. Out of bed, incentive spirometer, DVT prophylaxis. Await a.m. lab results. Charles Guerrero MD 06/12/2025 08:48 EDT * Pantera Dc MD - 06/12/2025 7:16 AM EDT Images from the original note were not included. INFECTIOUS DISEASE Progress Note Alexa Fuentes 1950 [id number] Date of Consult: 06/08/2025 Admission Date: 06/06/2025 Requesting Provider: Ivonne Ralph MD Evaluating Physician: Pantera Dc MD Reason for Consultation: Strep pneumoniae bacteremia History of present illness: 06/08/2025: Patient is a 74 y.o. male with h/o COPD, ESRD/HD MWF/RUE AVF not working for about a year/dialysis catheter in place for close to a year, afib/Eliquis, obesity, HTN, HLD, and CVA who we were asked to see for Streptococcus pneumoniae bacteremia. He was transferred from [facility] to [facility] on 06/06 for concerns for stroke along with altered mental status. He was noted at hisID to be more lethargic and confused and was transferred to [facility]. His CT scanat [facility] showed acute/subacute left occipital lobe ischemia and a CTA of head showed no large vessel occlusion. He was not a candidate for TNK. His labs at OSH were WBC 21,000, creatinine 5.10, AST 485, ALT 482, and bilirubin 1.5. A CT scan of a/p showed distended gallbladder with 5 mm stone, wall thickening, pericholecystic fluid, and mild intrahepatic ductal dilatation suspicious for choledocholel ithiasis. A CT scan of chest showed bilateral GGO. He was started on IV antibiotics and transferredto [facility] on 06/06. Since arrival, the patient has been afebrile. An MRI of the brain on 06/07 show tiny acute infarct in the left occipital lobe and chronic infarcts in bilateral cerebellum and left occipital lobe alongwith pansinus mucosal thickening and bilateral mastoid effusions. An MRCP of abd on 06/07 showed choledocholelithiasis in CBD and cholelithiasis without acute cholecystitis along with LLL consolidation c/w pneumonia. He underwent an ERCP with stone removal and stent placement on 06/[address] Foote. He was evaluated by Dr. Tim for possible cholecystectomy on 06/09. Blood cultures are negative to date. A C.auris PCR is negative. He is currently on Rocephin and Flagyl. ID was asked to evalaute and manage his antibiotic therapy. His blood cultures from [facility] became positive for GPC in pairs in 2 of 2 sets (4 of 4 bottles) with Streptococcus pneumoniae identified by [facility]. (Fax is on chart) 06/09/2025: He remains afebrile. Blood cultures here are no growth so far. I asked Dr. Arboleda review his echocardiogram. He clearly has an abnormal aortic valve and we cannot exclude a vegetation. He underwent cholecystectomy today. 06/10/2025: He remains afebrile. Blood cultures here are no growth so far. He remains confused. He denies increased cough and sputum production. He denies severe abdominal pain. 06/11/2025: He remains afebrile. Blood cultures from 06/07 are no growth so far. He developed bilateral parotid swelling and discomfort overnight. A CT scan of his neck reveals left parotid inflammation consistent with parotitis. There was no evidence of a obstructing stone. Today revealed moderate calcification of the aortic valve and moderate aortic regurgitation with moderate aortic stenosis. There was no evidence of valvular vegetation. He also had mild to moderate mitral regurgitation. He complains of left parotid region pain 06/12/2025: He remains afebrile. White blood cell count yesterday was 11.1. He denies increased cough and sputum production. He continues to complain of left parotid discomfort. Past Medical History: Diagnosis Date COPD (chronic obstructive pulmonary disease) ESRD (end stage renal disease) on dialysis Hyperlipidemia Hypertension Stroke Past Surgical History: Procedure Laterality Date CHOLECYSTECTOMY N/A 06/09/2025 Procedure: CHOLECYSTECTOMY LAPAROSCOPIC; Surgeon: Charles Guerrero MD; Location: [facility] OR; Service: General; Laterality: N/A; COLONOSCOPY ERCP N/A 06/08/2025 Procedure: ENDOSCOPIC RETROGRADE CHOLANGIOPANCREATOGRAPHY; Surgeon: Kishore Foote MD; Location: [facility] ENDOSCOPY; Service: Gastroenterology; Laterality: N/A; KNEE SURGERY Right Family History Problem Relation Age of Onset Cancer Father Social History Socioeconomic History Marital status: Tobacco Use Smoking status: Never Smokeless tobacco: Never Vaping Use Vaping status: Never Used Substance and Sexual Activity Alcohol use: Never Drug use: Never Sexual activity: Not Currently No Known Allergies Medication: Current Facility-Administered Medications: acetaminophen (TYLENOL) tablet 650 mg, 650 mg, Oral, Q4H PRN, 650 mg at 06/08/25 0330 OR acetaminophen (TYLENOL) 160 MG/5ML oral solution 650 mg, 650 mg, Oral, Q4H PRN OR acetaminophen (TYLENOL) suppository 650 mg, 650 mg, Rectal, Q4H PRN, Charles Guerrero MD albumin human 25 % IV SOLN 12.5 g, 12.5 g, Intravenous, PRN, Charles Guerrero MD, 12.5 g at 06/08/25 1507 amiodarone (PACERONE) tablet 200 mg, 200 mg, Oral, BID, Charles Guerrero MD, 200 mg at apixaban (ELIQUIS) tablet 5 mg, 5 mg, Oral, Q12H, Ivonne Ralph MD, 5 mg at 06/11/25 224 aspirin chewable tablet 81 mg, 81 mg, Oral, Daily, 81 mg at 06/10/25 0858 OR aspirin suppository 300 mg, 300 mg, Rectal, Daily, Charles Guerrero MD atorvastatin (LIPITOR) tablet 80 mg, 80 mg, Oral, Nightly, Charles Guerrero MD, 80 mg at 06/11/25 224 sennosides-docusate (PERICOLACE) 8.6-50 MG per tablet 2 tablet, 2 tablet, Oral, BID PRN AND polyethylene glycol (MIRALAX) packet 17 g, 17 g, Oral, Daily PRN AND bisacodyl (DULCOLAX) EC tablet5 mg, 5 mg, Oral, Daily PRN AND bisacodyl (DULCOLAX) suppository 10 mg, 10 mg, Rectal, Daily PRN, Charles Guerrero MD Calcium Replacement - Follow Nurse / BPA Driven Protocol, , Not Applicable, PRN, Charles Guerrero MD cefTRIAXone (ROCEPHIN) 2,000 mg in sodium chloride 0.9 % 100 mL MBP, 2,000 mg, Intravenous, Q24H, Pantera Dc MD, Last Rate: 200 mL/hr at 06/11/25612, 2,000 mg at 06/11/25612 DAPTOmycin (CUBICIN) 650 mg in sodium chloride 0.9 % 50 mL IVPB, 6 mg/kg (Adjusted), Intravenous, Once per day on Wednesday, Pura Cross, [facility], Last Rate: 100 mL/hr at 09/29/25 2243, 650 mg at 06/11/25 2243 guaiFENesin (MUCINEX) 12 hr tablet 600 mg, 600 mg, Oral, Q12H, Charles Guerrero MD, 600 mg at 06/11/25 2243 heparin (porcine) injection 2,000 Units, 2,000 Units, Intracatheter, PRN, Rehan Lincoln MD, 2,000 Units at 06/11/25 1209 HYDROmorphone (DILAUDID) injection 0.5 mg, 0.5 mg, Intravenous, Q2H PRN AND naloxone (NARCAN) injection 0.1 mg, 0.1 mg, Intravenous, Q5 Min PRN, Charles Guerrero MD ipratropium-albuterol (DUO-NEB) nebulizer solution 3 mL, 3 mL, Nebulization, 4x Daily - RT, Charles Guerrero MD, 3 mL at 06/10/25 1848 ipratropium-albuterol (DUO-NEB) nebulizer solution 3 mL, 3 mL, Nebulization, Q6H PRN, Charles Guerrero MD Magnesium Standard Dose Replacement - Follow Nurse / BPA Driven Protocol, , Not Applicable, PRN, Charles Guerrero MD nitroglycerin (NITROSTAT) SL tablet 0.4 mg, 0.4 mg, Sublingual, Q5 Min PRN, Charles Guerrero MD ondansetron (ZOFRAN) injection 4 mg, 4 mg, Intravenous, Q6H PRN, Charles Guerrero MD, 4 mg at 06/08/25 1351 oxyCODONE-acetaminophen (PERCOCET) 5-325 MG per tablet 1 tablet, 1 tablet, Oral, Q4H PRN, Charles Guerrero MD, 1 tablet at 06/09/252014 pantoprazole (PROTONIX) EC tablet 40 mg, 40 mg, Oral, Daily, Charles Guerrero MD, 40 mg at 06/10/25 0858 Phosphorus Replacement - Follow Nurse / BPA Driven Protocol, , Not Applicable, PRN, Charles Guerrero MD Potassium Replacement - Follow Nurse / BPA Driven Protocol, , Not Applicable, PRN, Charles Guerrero MD simethicone (MYLICON) chewable tablet 80 mg, 80 mg, Oral, 4x Daily PRN, Ivonne Bah MD, 80 mg at 06/10/25 0957 sodium chloride 0.9 % flush 10 mL, 10 mL, Intravenous, Q12H, Charles Guerrero MD, 10 mL at 06/11/25 2245 sodium chloride 0.9 % flush 10 mL, 10 mL, Intravenous, PRN, Charles Guerrero MD sodium chloride 0.9 % flush 10 mL, 10 mL, Intravenous, Q12H, Charles Guerrero MD, 10 mL at 06/11/25 2245 sodium chloride 0.9 % flush 10 mL, 10 mL, Intravenous, PRN, Charles Guerrero MD sodium chloride 0.9 % infusion 40 mL, 40 mL, Intravenous, RINN, Charles Guerrero MD Antibiotics: Anti-Infectives (From admission, onward) Ordered Dose/Rate Route Frequency Start Stop 06/11/25 1106 DAPTOmycin (CUBICIN) 650 mg in sodium chloride 0.9 % 50 mL IVPB Ordering Provider: Pura Cross RPH 6 mg/kg ?? 106 kg (Adjusted) 100 mL/hr over 30 Minutes Intravenous Once per day on Wednesday06/11/25 2100 06/18/25205806/11/25 1055 DAPTOmycin (CUBICIN) 650 mg in sodium chloride 0.9 % 50 mL IVPB Status: Discontinued Ordering Provider: Ivonne Ralph MD 6 mg/kg ?? 106 kg (Adjusted) 100 mL/hr over 30 Minutes Intravenous Every 24 Hours 06/11/25 1145 06/11/25 1106 06/07/25 1532 metroNIDAZOLE (FLAGYL) IVPB 500 mg Status: Discontinued Ordering Provider: Charles Guerrero MD 500 mg 200 mL/hr over 30 Minutes Intravenous Every 8 Hours 06/07/25 2000 06/10/25 0722 06/07/25 0437 metroNIDAZOLE (FLAGYL) IVPB 500 mg Status: Discontinued Ordering Provider: Rolan Muro MD 500 mg 200 mL/hr over 30 Minutes Intravenous Every 8 Hours 06/07/25 0600 06/07/25 1532 06/07/25 0437 cefTRIAXone (ROCEPHIN) 2,000 mg in sodium chloride 0.9 % 100 mL MBP Ordering Provider: Pantera Dc MD 2,000 mg 200 mL/hr over 30 Minutes Intravenous Every 24 Hours 06/07/25 0600 07/05/25 0559 Review of Systems: He is confused and cannot provide a reliable review of systems Physical Exam: Vital Signs Temp (24hrs), Av.9 ??F (36.6 ??C), Min:97.8 ??F (36.6 ??C), Max:98.1 ??F (36.7 ??C) Temp Min: 97.8 ??F (36.6 ??C) Max: 98.1 ??F (36.7 ??C) BP Min: 119/59 Max: 174/78 Pulse Min: 57 Max: 73 Resp Min: 12 Max: 19 SpO2 Min: 90 % Max: 100 % GENERAL: Awake and alert, in no acute distress. He is pleasantly confused HEENT: Normocephalic, atraumatic. PERRL. EOMI. No conjunctival injection. No icterus. Left parotid swelling and tenderness. This is unchanged today. NECK: Supple. HEART: 3/6 systolic murmur LUNGS:Diminished at left lung base with basilar rales, relatively clear right lung field without wheezing,. Normal respiratory effort. Nonlabored. ABDOMEN: Soft, nontender, nondistended.. No rebound or guarding. NO mass or HSM. Obese. EXT: No cyanosis 1+ edema. No cord. : Without Archibald catheter. MSK: No joint effusions or erythema SKIN: Warm and dry without cutaneous eruptions on Inspection/palpation. NEURO: pleasantly confused Motor 5/5 strength Left CW HD cath dry without erythema Laboratory Data Results from last 7 days Lab Units 06/11/25 0810 06/10/25 1522 06/08/25 0848 WBC 10*3/mm3 11.08* 11.79* 10.13 HEMOGLOBIN g/dL 8.5* 8.9* 8.6* HEMATOCRIT % 27.2* 28.5* 27.7* PLATELETS 10*3/mm3 206 179 195 Results from last 7 days Lab Units 06/11/25 0810 SODIUM mmol/L 135* POTASSIUM mmol/L 5.5* CHLORIDE mmol/L 95* CO2 mmol/L 22.9 BUN mg/dL 66.9* CREATININE mg/dL 7.96* GLUCOSE mg/dL 98 CALCIUM mg/dL 8.2* Results from last 7 days Lab Units 06/11/25 0810 ALK PHOS U/L 112 BILIRUBIN mg/dL 0.4 BILIRUBIN DIRECT mg/dL 0.2 ALT (SGPT) U/L 455* AST (SGOT) U/L 168* Results from last 7 days Lab Units 06/07/25 0603 LACTATE mmol/L 0.9 Estimated Creatinine Clearance: 11.8 mL/min (A) (by C-G formula based on SCr of 7.96 mg/dL (H)). Microbiology: Microbiology Results (last 10 days) Procedure Component Value - Date/Time MRSA Screen, PCR (Inpatient) - Swab, Nares [[id number]] (Abnormal) Collected: 06/08/25 1905 Lab Status: Final result Specimen: Swab from Nares Updated: 06/08/25 215 MRSA PCR Positive Narrative: The negative predictive value of this diagnostic test is high and should only be used to consider de-escalating anti-MRSA therapy. A positive result may indicate colonization with MRSA and must be correlated clinically. KIMANI AURIS PCR - Swab, Axilla Right, Axilla Left and Groin [[id number]] Collected: 06/07/25 0845 Lab Status: Final result Specimen: Swab from Axilla Right, Axilla Left and Groin Updated: 06/08/25 1715 KIMANI AURIS PCR ([facility]) Not Detected Blood Culture - Blood, Wrist, Left [[id number]] (Normal) Collected: 06/07/25 0603 Lab Status: Preliminary result Specimen: Blood from Wrist, Left Updated: 06/11/25 0730 Blood Culture No growth at 4 days Narrative: Aerobic Bottle Only Less than seven (7) mL's of blood was collected. Insufficient quantity may yield false negative results. Blood Culture - Blood, Wrist, Left [[id number]] (Normal) Collected: 06/07/25 0601 Lab Status: Preliminary result Specimen: Blood from Wrist, Left Updated: 06/11/25 0730 Blood Culture No growth at 4 days Narrative: Aerobic Bottle Only Less than seven (7) mL's of blood was collected. Insufficient quantity may yield false negative results. Radiology: Imaging Results (Last 72 Hours) Procedure Component Value Units Date/Time CT Soft Tissue Neck Without Contrast [[id number]] Collected: 06/11/25 0737 Updated: 06/11/2547 Narrative: CT SOFT TISSUE NECK WO CONTRAST Date of Exam: 06/10/2025 10:57 PM EDT Indication: swelling and pain. Comparison: 06/06/2025 Technique: Axial CT images were obtained of the neck without contrast administration. Reconstructedcoronal and sagittal images were also obtained. Automated exposure control and iterative construction methods were used. Findings: Visualized intracranial contents and globes and orbits appear within normal limits. Nasopharynx is normal. Oropharynx including base of tongue and epiglottis appear within normal limits. Larynx and piriform sinuses appear within normal limits. Visualized upper trachea and esophagus appear normal. Thyroid gland appears within normal limits. Bilateral submandibular glands are within There is subcutaneous fat stranding overlying the left parotid gland. The parotid glands are largely fatty replaced. There is edema and fat stranding within the left parotid gland consistent with parotitis. No definite parotid duct dilation or stone identified. No soft tissue mass visualized. Right parotid gland appears within limits. No pathologically enlarged cervical lymph nodes. There is a left internal jugular central venous catheter in place. There are right subclavian and internal jugular vein stents.. Degenerative changes are noted of the cervical spine. No lytic or sclerotic bony lesion. There is complete opacification of the left maxillary sinus unchanged. There is a polyp or mucous retention cyst within the posterior right maxillary sinus. Partial opacification of the left ethmoid air cells. There is complete opacification of the left mastoid air cells. Left middle ear cavity appears clear. There is patchy airspace disease in the left upper lobe, grossly unchanged from prior study consistent with pneumonia. Impression: Impression: 1. Enlargement and fat stranding in and around the left parotid gland consistent with changes of parotiditis. No definite obstructing stone identified. 2. No cervical lymphadenopathy. 3. Changes of chronic sinusitis and left mastoiditis. 4. No significant change in left upper lobe airspace disease compatible with pneumonia. Electronically Signed: Jose Jesus MD 06/11/2025 7:44 AM EDT Workstation ID: [id number] I read his radiographic images. Impression: Pneumococcal bacteremia-secondary to left lower lobe pneumonia. There is no evidence of endocarditis by JARED. Choledocholelithiasis- s/p ERCP 06/08 with stone extraction and stent placement. S/P cholecystectomy06/09 LLL pneumococcal pneumonia Left parotitis- this is most likely secondary to MRSA. He is now on intravenous daptomycin but I will switch his antibiotic regimen to vancomycin at dialysis. Acute left occipital lobe cerebral vascular accident Valvular heart disease-with moderate to severe aortic stenosis and mild to moderate mitral regurgitation. There is no evidence of endocarditis by JARED. Severe sepsis- improved. Encephalopathy, toxic/metabolic, improving Acute hypoxic respiratory failure Leukocytosis/neutrophilia Anemia of chronic disease Choledocholithiasis End stage renal disease/Hemodialysis MWF/dialysis catheter in place for almost a year/RUE AVF not working for about a year. Atrial fibrillation/Eliquis on hold Chronic obstructive pulmonary disease Essential hypertension/dyslipidemia PLAN/RECOMMENDATIONS: Stop Daptomycin IV Stop Rocephin 2 GM IV daily through 06/13 Vancomycin 1 g IV with each dialysis x 5 doses Possible discharge to rehab I discussed his complex situation with Dr. Kevin Winslow today. I discussed his complex situation with ID clinical pharmacy today This visit included the following complex service elements: Complex medical decision-making associated with antimicrobial prescribing. In-depth chart review with high level synthesis for complex diagnoses. Managed infection treatment protocol associated with transitions of care for this complex patient. Counseled patients, family members, and/or caregivers regarding antimicrobial stewardship and antibiotic resistance. Pantera Dc MD 06/12/2025 07:16 EDT * Ivonne Ralph MD - 06/11/2025 4:51 PM EDT Enter Query Response Below Query Response: Healing stage 4 pressure injury coccyx, present on admission If applicable, please update the problem list. * Ivonne Ralph MD - 06/11/2025 3:45 PM EDT Images from the original note were not included. [facility] PROGRESS NOTE Patient Name: Alexa Fuentes : 1950 Date of Admission: 06/06/2025 Primary Care Physician: Jeffrey Sun MD Subjective Subjective CC: F/U AMS HPI: Pt feeling better today but says its a bad day because of HD. His abd pain has alost resolved and he is tolerating a diet. Objective Objective Vital Signs: Temp: [97.7 ??F (36.5 ??C)-98.1 ??F (36.7 ??C)] 98.1 ??F (36.7 ??C) Heart Rate: [55-72] 70 Resp: [12-18] 16 BP: (119-176)/(59-92) 144/69 Flow (L/min) (Oxygen Therapy): [3] 3 Physical Exam Constitutional: General: He is not in acute distress. Cardiovascular: Rate and Rhythm: Normal rate and regular rhythm. Heart sounds: Normal heart sounds. Pulmonary: Effort: Pulmonary effort is normal. Breath sounds: Normal breath sounds. Abdominal: General: There is no distension. Palpations: Abdomen is soft. Tenderness: There is no abdominal tenderness. Comments: Surgical sites covered in steri strips Musculoskeletal: Right lower leg: No edema. Left lower leg: No edema. Neurological: General: No focal deficit present. Mental Status: He is alert. Mental status is at baseline. Psychiatric: Mood and Affect: Mood normal. Thought Content: Thought content normal. Results Reviewed: LAB RESULTS: Lab 06/11/25 0810 06/10/25 1522 06/08/25 0848 06/07/25 0603 06/07/25 0057 WBC 11.08* 11.79* 10.13 -- 18.26* HEMOGLOBIN 8.5* 8.9* 8.6* -- 9.0* HEMATOCRIT 27.2* 28.5* 27.7* -- 28.1* PLATELETS 206 179 195 -- 120* NEUTROS ABS -- -- -- -- 15.45* IMMATURE GRANS (ABS) -- -- -- -- 0.90* LYMPHS ABS -- -- -- -- 0.52* MONOS ABS -- -- -- -- 1.37* EOS ABS -- -- -- -- 0.00 MCV 98.9* 100.7* 98.9* -- 97.6* LACTATE -- -- -- 0.9 -- Lab 06/11/25 0810 06/10/25 1522 06/09/25 1426 06/08/25 0848 06/07/25 0105 06/07/25 0057 SODIUM 135* 134* -- 137 -- 136 POTASSIUM 5.5* 5.3* -- 5.1 -- 5.0 CHLORIDE 95* 94* -- 93* -- 93* CO2 22.9 21.2* -- 24.1 -- 27.9 ANION GAP 17.1* 18.8* -- 19.9* -- 15.1* BUN 66.9* 60.9* -- 80.3* -- 52.4* CREATININE 7.96* 7.36* -- 8.13* -- 6.07* EGFR 6.5* 7.1* -- 6.3* -- 9.0* GLUCOSE 98 120* -- 66 -- 77 CALCIUM 8.2* 8.7 -- 8.8 -- 9.0 MAGNESIUM 2.2 -- 2.0 -- -- 1.8 PHOSPHORUS -- 8.9* -- -- -- -- HEMOGLOBIN A1C -- -- -- -- 4.9 -- TSH -- -- -- -- -- 0.534 Lab 06/11/25 0810 06/10/25 1522 06/08/25 0848 06/07/25 0057 TOTAL PROTEIN 6.1 5.8* 5.9* 6.1 ALBUMIN 3.1* 3.2* 2.8* 3.0* GLOBULIN -- 2.6 3.1 3.1 ALT (SGPT) 455* 558* 982* 652* AST (SGOT) 168* 226* 730* 558* BILIRUBIN 0.4 0.4 0.6 0.9 INDIRECT BILIRUBIN 0.2 -- -- -- BILIRUBIN DIRECT 0.2 -- -- -- ALK PHOS 112 118* 111 102 Lab 06/07/25 0057 CHOLESTEROL 62 LDL CHOL 15 HDL CHOL 33* TRIGLYCERIDES 58 Brief Urine Lab Results None Microbiology Results Abnormal Procedure Component Value - Date/Time MRSA Screen, PCR (Inpatient) - Swab, Nares [[id number]] (Abnormal) Collected: 06/08/25 1905 Lab Status: Final result Specimen: Swab from Nares Updated: 06/08/252151 MRSA PCR Positive Narrative: The negative predictive value of this diagnostic test is high and should only be used to consider de-escalating anti-MRSA therapy. A positive result may indicate colonization with MRSA and must be correlated clinically. CT Soft Tissue Neck Without Contrast Result Date: 06/11/2025 CT SOFT TISSUE NECK WO CONTRAST Date of Exam: 06/10/2025 10:57 PM EDT Indication: swelling and pain.Comparison: 06/06/2025 Technique: Axial CT images were obtained of the neck without contrast administration. Reconstructed coronal and sagittal images were also obtained. Automated exposure control and iterative construction methods were used. Findings: Visualized intracranial contents and globes and orbits appear within normal limits. Nasopharynx is normal. Oropharynx including base of tongue andepiglottis appear within normal limits. Larynx and piriform sinuses appear within normal limits. Visualized upper trachea and esophagus appear normal. Thyroid gland appears within normal limits. Bilateral submandibular glands are within There is subcutaneous fat stranding overlying the left parotidgland. The parotid glands are largely fatty replaced. There is edema and fat stranding within the left parotid gland consistent with parotitis. No definite parotid duct dilation or stone identified. No soft tissue mass visualized. Right parotid gland appears within limits. No pathologically enlarged cervical lymph nodes. There is a left internal jugular central venous catheter in place. There areright subclavian and internal jugular vein stents.. Degenerative changes are noted of the cervical spine. No lytic or sclerotic bony lesion. There is complete opacification of the left maxillary sinus unchanged. There is a polyp or mucous retention cyst within the posterior right maxillary sinus. Partial opacification of the left ethmoid air cells. There is complete opacification of the left mastoid air cells. Left middle ear cavity appears clear. There is patchy airspace disease in the left upper lobe, grossly unchanged from prior study consistent with pneumonia. Impression: Impression: 1. Enlargement and fat stranding in and around the left parotid gland consistent with changes of parotiditis. No definite obstructing stone identified. 2. No cervical lymphadenopathy. 3. Changes of chronic sinusitis and left mastoiditis. 4. No significant change in left upper lobe airspace disease compatible with pneumonia. Electronically Signed: Jose Jesus MD 06/11/2025 7:44 AM EDT Workstation ID: [id number] Results for orders placed during the hospital encounter of 06/06/25 Adult Transesophageal Echo 3D (JARED) W/ Cont If Necessary Per Protocol 06/11/2025 3:04 PM Interpretation Summary Left ventricular ejection fraction appears to be 56 - 60%. No evidence of a left atrial appendage thrombus was present. A catheter is present in the right atrium. Severe mitral annular calcification is present. Mild to moderate mitral valve regurgitation is present. No significant mitral valve stenosis is present. There is moderate calcification of the aortic valve. Moderate aortic valve regurgitation is present. Moderate aortic valve stenosis is present. Mean gradient 24mmHg Moderate tricuspid valve regurgitation is present. Estimated right ventricular systolic pressure from tricuspid regurgitation is moderately elevated (45-55 mmHg). There is moderate, (grade 3) plaque in the aortic arch present. Mild dilation of the aortic root is present. Aortic root measures 4.1 cm. There is moderate, (grade3) plaque in the aortic arch present. No valvular vegetations noted. No echocardiographic evidence of endocarditis I supervised and directed an independent trained observer with the assistance of monitoring the patient's level of consciousness and physiological status throughout the procedure. Intraoperative service time of 20 minutes I have personally reviewed the therapy plans: [] PT/OT/ ST Therapy Plans Current medications: Scheduled Meds:amiodarone, 200 mg, Oral, BID apixaban, 5 mg, Oral, Q12H aspirin, 81 mg, Oral, Daily Or aspirin, 300 mg, Rectal, Daily atorvastatin, 80 mg, Oral, Nightly cefTRIAXone, 2,000 mg, Intravenous, Q24H DAPTOmycin, 6 mg/kg (Adjusted), Intravenous, Once per day on Wednesday guaiFENesin, 600 mg, Oral, Q12H ipratropium-albuterol, 3 mL, Nebulization, 4x Daily - RT pantoprazole, 40 mg, Oral, Daily sodium chloride, 10 mL, Intravenous, Q12H sodium chloride, 10 mL, Intravenous, Q12H Continuous Infusions: PRN Meds:. acetaminophen OR acetaminophen OR acetaminophen albumin human senna-docusate sodium AND polyethylene glycol AND bisacodyl AND bisacodyl Calcium Replacement - Follow Nurse / BPA Driven Protocol heparin (porcine) HYDROmorphone AND naloxone ipratropium-albuterol Magnesium Standard Dose Replacement - Follow Nurse / BPA Driven Protocol nitroglycerin ondansetron oxyCODONE-acetaminophen Phosphorus Replacement - Follow Nurse / BPA Driven Protocol Potassium Replacement - Follow Nurse / BPA Driven Protocol simethicone sodium chloride sodium chloride sodium chloride Assessment & Plan Assessment & Plan Active Hospital Problems Diagnosis POA Occipital stroke [I63.9] Yes Choledocholithiasis [K80.50] Yes Acute respiratory failure with hypoxia [J96.01] Yes CAP (community acquired pneumonia) [J18.9] Yes ESRD (end stage renal disease) [N18.6] Yes Atrial fibrillation [I48.91] Yes Resolved Hospital Problems No resolved problems to display. Brief Hospital Course to date: Alexa Fuentes is a 74 y.o. male with hx of HTN, HLD, COPD, Afib on Eliquis, and ESRD on HD who presents from [facility] due to AMS and concern for stroke. In addition he was found to have pneumonia and possible choledocholithiasis. Stroke team accepted in transfer to [facility]. Acute CVA, left occipital lobe --CT head at OSH revealed acute/subacute left occipital lobe ischemia, CTA showed no large vessel occlusion. Given that he is on Eliquis, with the last dose taken that morning, he was not a candidatefor TNK. --MRI brain here confirms tiny acute infarct within the left occipital lobe. Questionable additional punctate cortical acute/subacute infarct within the left centrum semiovale. --Bilateral carotid duplex showing less than 50% stenosis bilaterally --Echo with EF 53% and grade II diastolic dysfunction, negative saline test, --Stroke Neurology following, ASA 81 mg; continue atorvastatin 80 mg nightly -- will increase eliquis to 5mg BID per stroke neruo and cards recs --PT/OT/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 evaluations- extended care Choledocholithiasis --CT A/P at OSH showed a distended gallbladder with a 5 mm stone, wall thickening, surrounding pericholecystic fluid, and mild intrahepatic ductal dilation, highly suspicious for choledocholithiasis.These findings were consistent with prior studies, including MRI. --MRCP 06/07/25: 7 mm stone in lower common bile duct, cholelithiasis without cholecystitis --Continue Rocephin, Flagyl --GI consulted s/p ERCP --gen surgery consulted for CCY, to went to the OR 06/[address] Guerrero - discussed with Dr Guerrero- ok to resume eliquis Acute hypoxic respiratory failure Pneumonia Strep pneumo bacteremia Sepsis --CT chest at OSH showed bilateral ground-glass opacities --Required non-rebreather mask at OSH, currently on 3 liters and does not wear home oxygen at baseline --OSH blood cultures positive for strep pneumo, will try and obtain susceptibilities from them- hopefully will be ready tomorrow -- JARED negative for signs of endocarditis --Scheduled and PRN duonebs --Continue Rocephin --ID following --Wean O2 as tolerated Acute parotiditis - acute parotid gland swelling worse on L that started yesterday afternoon - CT soft tissue neck shows enlargement and fat stranding around L parotid gland - adding dapto - viral panel pending - pt reports getting all childhood vaccines Acute encephalopathy-resolved --Likely multifactorial due to pneumonia, hypoxia, stroke --back to baseline ESRD --On HD MWF --Nephrology following Afib --resume eliquis, increased to 5mg --Continue home Amiodarone HTN HLD --Not on any home BP meds --LDL 15 --Continue statin COPD --Scheduled and PRN nebs Expected Discharge Location and Transportation: TBD Expected Discharge Expected Discharge Date: 06/11/2025; Expected Discharge Time: VTE Prophylaxis: Pharmacologic & mechanical VTE prophylaxis orders are present. AM-PAC 6 Clicks Score (PT): 10 (06/10/251999) CODE STATUS: Code Status and Medical Interventions: No CPR (Do Not Attempt to Resuscitate); Limited Support; No intubation (DNI) Ordered at: 06/11/25 1432 Code Status (Patient has no pulse and is not breathing): No CPR (Do Not Attempt to Resuscitate) Medical Interventions (Patient has pulse or is breathing): Limited Support Medical Intervention Limits: No intubation (DNI) Level Of Support Discussed With: Patient Ivonne Ralph MD 06/11/25 * Aurora Peña, ANA - 06/11/2025 2:32 PM EDT Palliative Care Daily Progress Note C/C: Patient reports sore abdomen and gas. S: Medical record reviewed. Follow-up visit for GOC and symptom management. Events noted. Patient oriented x3, he confirms DNR/DNI. He reports abdomen sore , lap sites CDI with steristrips in place.He reports some gas. He would like some chicken broth, RN notified. Patient has been bedbound and lives at LTC. Patient reports cough, IS given and demonstrated use. ROS: +pain, abdomen, sore , gas. +shortness of breath, currently on 3.5LNC. +debility, bedbound atbaseline. Denies nausea. LBM 06/07. O: Code Status: Code Status and Medical Interventions: No CPR (Do Not Attempt to Resuscitate); Limited Support; No intubation (DNI) Ordered at: 06/11/25 1432 Code Status (Patient has no pulse and is not breathing): No CPR (Do Not Attempt to Resuscitate) Medical Interventions (Patient has pulse or is breathing): Limited Support Medical Intervention Limits: No intubation (DNI) Level Of Support Discussed With: Patient Advanced Directives: Advance Directive Status: Patient has advance directive, copy requested Goals of Care: Ongoing. Palliative Performance Scale Score: 30% BP 144/69 Pulse 70 Temp 98.1 ??F (36.7 ??C) (Axillary) Resp 16 Ht 193 cm (75.98 ) Wt 134 kg (295 lb 6.7 oz) SpO2 95% BMI 35.97 kg/m?? Intake/Output Summary (Last 24 hours) at 06/11/2025 1432 Last data filed at 06/10/2025 2300 Gross per 24 hour Intake -- Output 100 ml Net -100 ml PE: General Appearance: Alert, cooperative, NAD HEENT: NC/AT, EOMI, anicteric, MMM, face relaxed Neck: supple, trachea midline, no JVD Lungs: CTA bilaterally, diminished in bases; respirations regular, even and unlabored; RR 16-18 onexam, 3.5LNC Heart: RRR, normal S1 and S2, no M/R/G Abdomen: Normal bowel sounds, soft, nontender, protuberant, steristrips to lap sites CDI G/U: Deferred MSK/Extremities: Wasting, no edema Pulses: Pulses palpable and equal bilaterally Skin: Warm, dry Neurologic: A/Ox3, cooperative, HERNANDEZ Psych: Calm, appropriate Meds: Reviewed and changes noted Labs: Results from last 7 days Lab Units 06/11/25 0810 WBC 10*3/mm3 11.08* HEMOGLOBIN g/dL 8.5* HEMATOCRIT % 27.2* PLATELETS 10*3/mm3 206 Results from last 7 days Lab Units 06/11/25 0810 SODIUM mmol/L 135* POTASSIUM mmol/L 5.5* CHLORIDE mmol/L 95* CO2 mmol/L 22.9 BUN mg/dL 66.9* CREATININE mg/dL 7.96* GLUCOSE mg/dL 98 CALCIUM mg/dL 8.2* Results from last 7 days Lab Units 06/11/25 0810 SODIUM mmol/L 135* POTASSIUM mmol/L 5.5* CHLORIDE mmol/L 95* CO2 mmol/L 22.9 BUN mg/dL 66.9* CREATININE mg/dL 7.96* CALCIUM mg/dL 8.2* BILIRUBIN mg/dL 0.4 ALK PHOS U/L 112 ALT (SGPT) U/L 455* AST (SGOT) U/L 168* GLUCOSE mg/dL 98 Imaging Results (Last 72 Hours) Procedure Component Value Units Date/Time CT Soft Tissue Neck Without Contrast [[id number]] Collected: 06/11/2537 Updated: 06/11/2547 Narrative: CT SOFT TISSUE NECK WO CONTRAST Date of Exam: 06/10/2025 10:57 PM EDT Indication: swelling and pain. Comparison: 06/06/2025 Technique: Axial CT images were obtained of the neck without contrast administration. Reconstructedcoronal and sagittal images were also obtained. Automated exposure control and iterative construction methods were used. Findings: Visualized intracranial contents and globes and orbits appear within normal limits. Nasopharynx is normal. Oropharynx including base of tongue and epiglottis appear within normal limits. Larynx and piriform sinuses appear within normal limits. Visualized upper trachea and esophagus appear normal. Thyroid gland appears within normal limits. Bilateral submandibular glands are within There is subcutaneous fat stranding overlying the left parotid gland. The parotid glands are largely fatty replaced. There is edema and fat stranding within the left parotid gland consistent with parotitis. No definite parotid duct dilation or stone identified. No soft tissue mass visualized. Right parotid gland appears within limits. No pathologically enlarged cervical lymph nodes. There is a left internal jugular central venous catheter in place. There are right subclavian and internal jugular vein stents.. Degenerative changes are noted of the cervical spine. No lytic or sclerotic bony lesion. There is complete opacification of the left maxillary sinus unchanged. There is a polyp or mucous retention cyst within the posterior right maxillary sinus. Partial opacification of the left ethmoid air cells. There is complete opacification of the left mastoid air cells. Left middle ear cavity appears clear. There is patchy airspace disease in the left upper lobe, grossly unchanged from prior study consistent with pneumonia. Impression: Impression: 1. Enlargement and fat stranding in and around the left parotid gland consistent with changes of parotiditis. No definite obstructing stone identified. 2. No cervical lymphadenopathy. 3. Changes of chronic sinusitis and left mastoiditis. 4. No significant change in left upper lobe airspace disease compatible with pneumonia. Electronically Signed: Jose Jesus MD 06/11/2025 7:44 AM EDT Workstation ID: [id number] ERCP pancreatic and biliary ducts [[id number]] Collected: 06/08/25 1531 Updated: 06/08/25 1552 Narrative: HI ERCP PANCREATIC AND BILIARY DUCTS Date of Exam: 06/08/2025 10:49 AM EDT Indication: ENDOSCOPIC RETROGRADE CHOLANGIOPANCREATOGRAPHY. Comparison: None available. Technique: A series of radiographic digital spot films were obtained in conjunction with an endoscopic catheterization of the biliary and pancreatic ductal system, performed by the linux network administrator. Fluoroscopic Time: 5 minutes 57 seconds Number of Images: 10 Findings: Fluoroscopy demonstrates filling of the bile ducts. Impression: Impression: Fluoroscopy demonstrates filling of the bile ducts. Please see procedure report for full findings. Electronically Signed: Migue Mcfarlane MD 06/08/2025 3:48 PM EDT Workstation ID: [id number] [facility] 06/07/25 0105 HEMOGLOBIN A1C 4.9 Diagnostics: Reviewed A: Occipital stroke Choledocholithiasis Acute respiratory failure with hypoxia CAP (community acquired pneumonia) ESRD (end stage renal disease) Atrial fibrillation 74 y.o. male with ESRD on HD, A-fib, s/p lap aby, occipital stroke, respiratory failure, cough, shortness of breath, pain, debility. S/Sx: 1. Pain - sore abdomen s/p lap aby, gas -Tylenol 650mg PO q 4 hours prn mild pain -Percocet 5-325mg PO q 4 hours prn moderate pain -Hydromorphone 0.5mg IV q 2 hours prn severe pain -Simethicone 80mg PO 4 times daily prn flatulence 2. Shortness of breath -cough, on 3.5LNC -nebs, IS, Mucinex, antibiotic 3. Debility -bedbound 4. GOC -DNR/DNI -confirmed with patient 06/11 -reviewed symptoms and medications as above P: Follow up visit. Patient confirms DNR/DNI. Reviewed symptoms and medications as above. Palliative Care Team will continue to follow patient. Please do not hesitate to contact us regarding further sx mgmt or GOC needs. Aurora Peña APRN 06/11/2025 Time spent: 20 minutes * Felipe Toro MD - 06/11/2025 2:28 PM EDT Cardiology interim note JARED completed without complications. Notable findings Calcified mitral and aortic valves without evidence of valvular vegetation or endocarditis No evidence of left atrial appendage thrombus Mildly positive bubble study Recommendations: -Patient has history of atrial fibrillation on Eliquis 2.5 mg twice daily -MRI brain showed acute infarct left occipital lobe, chronic infarcts in the bilateral cerebellum and left occipital lobe. Questionable additional punctate subacute infarct left centrum semiovale -Patient is on dialysis but is less than 80 and with normal body weight. -He meets criteria for Eliquis 5 mg twice daily for prevention of stroke. -Will discuss this with other members of his treatment team. * Rehan Lincoln MD - 06/11/2025 9:17 AM EDT LOS: 4 days Patient Care Team: Jeffrey Sun MD as PCP - General (Family Medicine) Chief Complaint: 74-year-old with history of ESRD on HD MWF at [facility] last dialyzed yesterday. Patient was transferred from [facility] due to lethargy, confusion, weakness, initially transferred to [facility]. Subjective Interval History: Patient seen on dialysis Review of Systems: No nausea vomiting chest pain or shortness of breath Objective Vital Sign Min/Max for last 24 hours Temp Min: 97.6 ??F (36.4 ??C) Max: 98 ??F (36.7 ??C) BP Min: 152/62 Max: 176/80 Pulse Min: 55 Max: 64 Resp Min: 16 Max: 18 SpO2 Min: 92 % Max: 98 % Flow (L/min) (Oxygen Therapy) Min: 3 Max: 3 No data recorded Flowsheet Rows Flowsheet Row First Filed Value Admission Height 193 cm (76 ) Documented at 06/07/2025 0243 Admission Weight 134 kg (295 lb 6.7 oz) Documented at 06/07/2025 0200 No intake/output data recorded. I/O last 3 completed shifts: In: - Out: 100 [Urine:100] Physical Exam: General Appearance: male no acute distress. Eyes: PER, EOMI. Neck: Supple no JVD. Lungs: Clear to auscultation. Equal chest movement, nonlabored. Heart: RRR. Abdomen: Obesity, laparoscopic bandages noted. Mild tenderness Extremities no cyanosis. Neuro: No focal deficit, moving all extremities, alert oriented X 3 WBC WBC Date Value Ref Range Status 06/11/2025 11.08 (H) 3.40 - 10.80 10*3/mm3 Final 06/10/2025 11.79 (H) 3.40 - 10.80 10*3/mm3 Final HGB Hemoglobin Date Value Ref Range Status 06/11/2025 8.5 (L) 13.0 - 17.7 g/dL Final 06/10/2025 8.9 (L) 13.0 - 17.7 g/dL Final HCT Hematocrit Date Value Ref Range Status 06/11/2025 27.2 (L) 37.5 - 51.0 % Final 06/10/2025 28.5 (L) 37.5 - 51.0 % Final Platlets No results found for: LABPLAT MCV MCV Date Value Ref Range Status 06/11/2025 98.9 (H) 79.0 - 97.0 fL Final 06/10/2025 100.7 (H) 79.0 - 97.0 fL Final Sodium Sodium Date Value Ref Range Status 06/11/2025 135 (L) 136 - 145 mmol/L Final 06/10/2025 134 (L) 136 - 145 mmol/L Final Potassium Potassium Date Value Ref Range Status 06/11/2025 5.5 (H) 3.5 - 5.2 mmol/L Final 06/10/2025 5.3 (H) 3.5 - 5.2 mmol/L Final Chloride Chloride Date Value Ref Range Status 06/11/2025 95 (L) 98 - 107 mmol/L Final 06/10/2025 94 (L) 98 - 107 mmol/L Final CO2 CO2 Date Value Ref Range Status 06/11/2025 22.9 22.0 - 29.0 mmol/L Final 06/10/2025 21.2 (L) 22.0 - 29.0 mmol/L Final BUN BUN Date Value Ref Range Status 06/11/2025 66.9 (H) 8.0 - 23.0 mg/dL Final 06/10/2025 60.9 (H) 8.0 - 23.0 mg/dL Final Creatinine Creatinine Date Value Ref Range Status 06/11/2025 7.96 (H) 0.76 - 1.27 mg/dL Final 06/10/2025 7.36 (H) 0.76 - 1.27 mg/dL Final Calcium Calcium Date Value Ref Range Status 06/11/2025 8.2 (L) 8.6 - 10.5 mg/dL Final 06/10/2025 8.7 8.6 - 10.5 mg/dL Final PO4 No results found for: CAPO4 Albumin Albumin Date Value Ref Range Status 06/10/2025 3.2 (L) 3.5 - 5.2 g/dL Final Magnesium Magnesium Date Value Ref Range Status 06/11/2025 2.2 1.6 - 2.4 mg/dL Final 06/09/2025 2.0 1.6 - 2.4 mg/dL Final Uric Acid No results found for: URICACID Results Review: I reviewed the patient's new clinical results. amiodarone, 200 mg, Oral, BID [Held by provider] apixaban, 2.5 mg, Oral, Q12H aspirin, 81 mg, Oral, Daily Or aspirin, 300 mg, Rectal, Daily atorvastatin, 80 mg, Oral, Nightly cefTRIAXone, 2,000 mg, Intravenous, Q24H guaiFENesin, 600 mg, Oral, Q12H ipratropium-albuterol, 3 mL, Nebulization, 4x Daily - RT pantoprazole, 40 mg, Oral, Daily sodium chloride, 10 mL, Intravenous, Q12H sodium chloride, 10 mL, Intravenous, Q12H lactated ringers, 9 mL/hr, Last Rate: 9 mL/hr (06/10/25 1052) Medication Review: Reviewed Assessment & Plan Occipital stroke Choledocholithiasis Acute respiratory failure with hypoxia CAP (community acquired pneumonia) ESRD (end stage renal disease) Atrial fibrillation 1. ESRD: On HD at [facility] 2. Atrial fibrillation on Eliquis 3. Hypertension 4. Anemia of chronic kidney disease 5. Hyperlipidemia 6. COPD. 7. Ischemic occipital stroke. Plan: Dialysis in progress at this time tolerating well. Tunneled catheter Renal diet Fluid restriction less than 1500 mL/day. Start home medications. High risk complex patient with multiple medical problems. Rehan Lincoln MD 06/11/25 09:17 EDT * Charles Guerrero MD - 06/11/2025 8:23 AM EDT Patient Name: Alexa Fuentes Date of : 1950 [id number] Surgery Progress Note Date of visit: 06/11/2025 Subjective Improved abdominal pain. No nausea or vomiting. No fevers or chills. Objective BP 165/73 (BP Location: Left arm, Patient Position: Lying) Pulse 56 Temp 97.8 ??F (36.6 ??C) (Oral) Resp 18 Ht 193 cm (75.98 ) Wt 134 kg (295 lb 6.7 oz) SpO2 93% BMI 35.97 kg/m?? Intake/Output Summary (Last 24 hours) at 06/11/2025 0823 Last data filed at 06/10/2025 2300 Gross per 24 hour Intake -- Output 100 ml Net -100 ml CV: Rhythm regular and rate regular L: Clear to auscultation bilaterally Abd: Bowel sounds positive, soft, appropriately tender, incisions clean dry and intact Ext: No cyanosis, clubbing, edema Recent labs and imaging that are back at this time have been reviewed. WBC 11.1 Hemoglobin 8.5 AST 226 ALT 558 Total bilirubin 0.4 Assessment & Plan Patient postop day 2 from laparoscopic cholecystectomy for choledocholithiasis. Diet as tolerated from surgical perspective. Pain control. Out of bed, incentive spirometer, DVT prophylaxis. Timing ofDC planning per primary team. Charles Guerrero MD 06/11/2025 08:23 EDT * Michelle Hwoard RD - 06/11/2025 8:14 AM EDT Nutrition Services Patient Name: Alexa Fuentes Date of : 1950 Admit Date: 06/06/2025 Pt identified as NPO/Clear Liquid Diet >/= 72 hrs. Advance diet as medically appropriate. RD monitoring for diet advancement. Please consult RD if nutrition support is indicated. Electronically signed by: Michelle Howard, Registration Eligible 06/11/25 08:14 EDT Cosigned by Madisyn Adler MS, RD,DUSTY at 06/11/2025 8:51 AM EDT Associated attestation - Madisyn Adler MS, RD,DUSTY - 06/11/2025 8:51 AM EDT I have reviewed this documentation and agree. * Pantera Dc MD - 06/11/2025 7:23 AM EDT Images from the original note were not included. INFECTIOUS DISEASE Progress Note Alexa Fuentes 1950 [id number] Date of Consult: 06/08/2025 Admission Date: 06/06/2025 Requesting Provider: Ivonne Ralph MD Evaluating Physician: Pantera Dc MD Reason for Consultation: Strep pneumoniae bacteremia History of present illness: 06/08/2025: Patient is a 74 y.o. male with h/o COPD, ESRD/HD MWF/[facility] not working for about a year/dialysis catheter in place for close to a year, afib/Eliquis, obesity, HTN, HLD, and CVA who we were asked to see for Streptococcus pneumoniae bacteremia. He was transferred from [facility] to [facility] on 06/06 for concerns for stroke along with altered mental status. He was noted at [facility] to be more lethargic and confused and was transferred to [facility]. His CT scanat [facility] showed acute/subacute left occipital lobe ischemia and a CTA of head showed no large vessel occlusion. He was not a candidate for TNK. His labs at OSH were WBC 21,000, creatinine 5.10, AST 485, ALT 482, and bilirubin 1.5. A CT scan of a/p showed distended gallbladder with 5 mm stone, wall thickening, pericholecystic fluid, and mild intrahepatic ductal dilatation suspicious for choledocholel ithiasis. A CT scan of chest showed bilateral GGO. He was started on IV antibiotics and transferredto [facility] on 06/06. Since arrival, the patient has been afebrile. An MRI of the brain on 06/07 show tiny acute infarct in the left occipital lobe and chronic infarcts in bilateral cerebellum and left occipital lobe alongwith pansinus mucosal thickening and bilateral mastoid effusions. An MRCP of abd on 06/07 showed choledocholelithiasis in CBD and cholelithiasis without acute cholecystitis along with LLL consolidation c/w pneumonia. He underwent an ERCP with stone removal and stent placement on 06/[address] Foote. He was evaluated by Dr. Tim for possible cholecystectomy on 06/09. Blood cultures are negative to date. A C.auris PCR is negative. He is currently on Rocephin and Flagyl. ID was asked to evalaute and manage his antibiotic therapy. His blood cultures from [facility] became positive for GPC in pairs in 2 of 2 sets (4 of 4 bottles) with Streptococcus pneumoniae identified by [employer] [facility]. (Fax is on chart) 06/09/2025: He remains afebrile. Blood cultures here are no growth so far. I asked Dr. Arboleda review his echocardiogram. He clearly has an abnormal aortic valve and we cannot exclude a vegetation. He underwent cholecystectomy today. 06/10/2025: He remains afebrile. Blood cultures here are no growth so far. He remains confused. He denies increased cough and sputum production. He denies severe abdominal pain. 06/11/2025: He remains afebrile. Blood cultures from 06/07 are no growth so far. He developed bilateral parotid swelling and discomfort overnight. A CT scan of his neck reveals left parotid inflammation consistent with parotitis. There was no evidence of a obstructing stone. Today revealed moderate calcification of the aortic valve and moderate aortic regurgitation with moderate aortic stenosis. There was no evidence of valvular vegetation. He also had mild to moderate mitral regurgitation. He complains of left parotid region pain Past Medical History: Diagnosis Date COPD (chronic obstructive pulmonary disease) ESRD (end stage renal disease) on dialysis Hyperlipidemia Hypertension Stroke Past Surgical History: Procedure Laterality Date COLONOSCOPY KNEE SURGERY Right Family History Problem Relation Age of Onset Cancer Father Social History Socioeconomic History Marital status: Tobacco Use Smoking status: Never Smokeless tobacco: Never Vaping Use Vaping status: Never Used Substance and Sexual Activity Alcohol use: Never Drug use: Never Sexual activity: Not Currently No Known Allergies Medication: Current Facility-Administered Medications: acetaminophen (TYLENOL) tablet 650 mg, 650 mg, Oral, Q4H PRN, 650 mg at 06/08/25 0330 OR acetaminophen (TYLENOL) 160 MG/5ML oral solution 650 mg, 650 mg, Oral, Q4H PRN OR acetaminophen (TYLENOL) suppository 650 mg, 650 mg, Rectal, Q4H PRN, Charles Guerrero MD albumin human 25 % IV SOLN 12.5 g, 12.5 g, Intravenous, PRN, Charles Guerrero MD, 12.5 g at 06/08/25 1507 amiodarone (PACERONE) tablet 200 mg, 200 mg, Oral, BID, Charles Guerrero MD, 200 mg at 226 [Held by provider] apixaban (ELIQUIS) tablet 2.5 mg, 2.5 mg, Oral, Q12H, Charles Guerrero MD aspirin chewable tablet 81 mg, 81 mg, Oral, Daily, 81 mg at 06/10/25 0858 OR aspirin suppository 300 mg, 300 mg, Rectal, Daily, Charles Guerrero MD atorvastatin (LIPITOR) tablet 80 mg, 80 mg, Oral, Nightly, Charles Guerrero MD, 80 mg at 06/10/25 2226 sennosides-docusate (PERICOLACE) 8.6-50 MG per tablet 2 tablet, 2 tablet, Oral, BID PRN AND polyethylene glycol (MIRALAX) packet 17 g, 17 g, Oral, Daily PRN AND bisacodyl (DULCOLAX) EC tablet5 mg, 5 mg, Oral, Daily PRN AND bisacodyl (DULCOLAX) suppository 10 mg, 10 mg, Rectal, Daily PRN, Charles Guerrero MD Calcium Replacement - Follow Nurse / BPA Driven Protocol, , Not Applicable, PRN, Charles Guerrero MD cefTRIAXone (ROCEPHIN) 2,000 mg in sodium chloride 0.9 % 100 mL MBP, 2,000 mg, Intravenous, Q24H, Pantera Dc MD, Last Rate: 200 mL/hr at 06/11/25 0613, 2,000 mg at 06/11/25 0613 guaiFENesin (MUCINEX) 12 hr tablet 600 mg, 600 mg, Oral, Q12H, Charles Guerrero MD, 600 mg at 06/10/25 2226 HYDROmorphone (DILAUDID) injection 0.5 mg, 0.5 mg, Intravenous, Q2H PRN AND naloxone (NARCAN) injection 0.1 mg, 0.1 mg, Intravenous, Q5 Min PRN, Charles Guerrero MD ipratropium-albuterol (DUO-NEB) nebulizer solution 3 mL, 3 mL, Nebulization, 4x Daily - RT, Charles Guerrero MD, 3 mL at 06/10/25 1848 ipratropium-albuterol (DUO-NEB) nebulizer solution 3 mL, 3 mL, Nebulization, Q6H PRN, Charles Guerrero MD lactated ringers infusion, 9 mL/hr, Intravenous, Continuous, Maria Esther Espinoza CRNA, Last Rate: 9 mL/hr at 06/10/25 1052, 9 mL/hr at 06/10/25 1052 Magnesium Standard Dose Replacement - Follow Nurse / BPA Driven Protocol, , Not Applicable, PRYolanda Shukla Lawrence A, MD nitroglycerin (NITROSTAT) SL tablet 0.4 mg, 0.4 mg, Sublingual, Q5 Min PRN, Charles Guerrero MD ondansetron (ZOFRAN) injection 4 mg, 4 mg, Intravenous, Q6H PRN, Charles Guerrero MD, 4 mg at 06/08/25 1351 oxyCODONE-acetaminophen (PERCOCET) 5-325 MG per tablet 1 tablet, 1 tablet, Oral, Q4H PRN, Charles Guerrero MD, 1 tablet at 06/09/252014 pantoprazole (PROTONIX) EC tablet 40 mg, 40 mg, Oral, Daily, Charles Guerrero MD, 40 mg at 06/10/25 0858 Phosphorus Replacement - Follow Nurse / BPA Driven Protocol, , Not Applicable, PRN, Charles Guerrero MD Potassium Replacement - Follow Nurse / BPA Driven Protocol, , Not Applicable, PRGayla, Charles Guerrero MD simethicone (MYLICON) chewable tablet 80 mg, 80 mg, Oral, 4x Daily PRN, Ivonne Bah MD, 80 mg at 06/10/25 0957 sodium chloride 0.9 % flush 10 mL, 10 mL, Intravenous, Q12H, Charles Guerrero MD, 10 mL at 06/09/252015 sodium chloride 0.9 % flush 10 mL, 10 mL, Intravenous, PRN, Charles Guerrero MD sodium chloride 0.9 % flush 10 mL, 10 mL, Intravenous, Q12H, Charles Guerrero MD, 10 mL at 06/10/252228 sodium chloride 0.9 % flush 10 mL, 10 mL, Intravenous, PRN, Charles Guerrero MD sodium chloride 0.9 % infusion 40 mL, 40 mL, Intravenous, PRN, Charles Guerrero MD Antibiotics: Anti-Infectives (From admission, onward) Ordered Dose/Rate Route Frequency Start Stop 06/07/25 1532 metroNIDAZOLE (FLAGYL) IVPB 500 mg Status: Discontinued Ordering Provider: Charles Guerrero MD 500 mg 200 mL/hr over 30 Minutes Intravenous Every 8 Hours 06/07/25199906/10/25 0722 06/07/25 0437 metroNIDAZOLE (FLAGYL) IVPB 500 mg Status: Discontinued Ordering Provider: Rolan Muro MD 500 mg 200 mL/hr over 30 Minutes Intravenous Every 8 Hours 06/07/25 0600 06/07/25 1532 06/07/25 0437 cefTRIAXone (ROCEPHIN) 2,000 mg in sodium chloride 0.9 % 100 mL MBP Ordering Provider: Pantera Dc MD 2,000 mg 200 mL/hr over 30 Minutes Intravenous Every 24 Hours 06/07/25 0600 07/05/25 0559 Review of Systems: He is confused and cannot provide a reliable review of systems Physical Exam: Vital Signs Temp (24hrs), Av.8 ??F (36.6 ??C), Min:97.6 ??F (36.4 ??C), Max:98 ??F (36.7 ??C) Temp Min: 97.6 ??F (36.4 ??C) Max: 98 ??F (36.7 ??C) BP Min: 152/62 Max: 176/80 Pulse Min: 55 Max: 59 Resp Min: 16 Max: 18 SpO2 Min: 90 % Max: 98 % GENERAL: Awake and alert, in no acute distress. He is pleasantly confused HEENT: Normocephalic, atraumatic. PERRL. EOMI. No conjunctival injection. No icterus. Left parotid swelling and tenderness. NECK: Supple. HEART: 3/6 systolic murmur LUNGS:Diminished at left lung base with basilar rales, relatively clear right lung field without wheezing,. Normal respiratory effort. Nonlabored. ABDOMEN: Soft, nontender, nondistended.. No rebound or guarding. NO mass or HSM. Obese. EXT: No cyanosis 1+ edema. No cord. : Without Archibald catheter. MSK: No joint effusions or erythema SKIN: Warm and dry without cutaneous eruptions on Inspection/palpation. NEURO: pleasantly confused Motor 5/5 strength Left CW HD cath dry without erythema Laboratory Data Results from last 7 days Lab Units 06/10/25 1522 06/08/25 0848 06/07/25 0057 WBC 10*3/mm3 11.79* 10.13 18.26* HEMOGLOBIN g/dL 8.9* 8.6* 9.0* HEMATOCRIT % 28.5* 27.7* 28.1* PLATELETS 10*3/mm3 179 195 120* Results from last 7 days Lab Units 06/10/25 1522 SODIUM mmol/L 134* POTASSIUM mmol/L 5.3* CHLORIDE mmol/L 94* CO2 mmol/L 21.2* BUN mg/dL 60.9* CREATININE mg/dL 7.36* GLUCOSE mg/dL 120* CALCIUM mg/dL 8.7 Results from last 7 days Lab Units 06/10/25 1522 ALK PHOS U/L 118* BILIRUBIN mg/dL 0.4 ALT (SGPT) U/L 558* AST (SGOT) U/L 226* Results from last 7 days Lab Units 06/07/25 0603 LACTATE mmol/L 0.9 Estimated Creatinine Clearance: 12.8 mL/min (A) (by C-G formula based on SCr of 7.36 mg/dL (H)). Microbiology: Microbiology Results (last 10 days) Procedure Component Value - Date/Time MRSA Screen, PCR (Inpatient) - Swab, Nares [[id number]] (Abnormal) Collected: 06/08/25 1905 Lab Status: Final result Specimen: Swab from Nares Updated: 06/08/25 215 MRSA PCR Positive Narrative: The negative predictive value of this diagnostic test is high and should only be used to consider de-escalating anti-MRSA therapy. A positive result may indicate colonization with MRSA and must be correlated clinically. KIMANI AURIS PCR - Swab, Axilla Right, Axilla Left and Groin [[id number]] Collected: 06/07/25 0845 Lab Status: Final result Specimen: Swab from Axilla Right, Axilla Left and Groin Updated: 06/08/25 1715 KIMANI AURIS PCR (MITUL) Not Detected Blood Culture - Blood, Wrist, Left [[id number]] (Normal) Collected: 06/07/25 0603 Lab Status: Preliminary result Specimen: Blood from Wrist, Left Updated: 06/10/25 0730 Blood Culture No growth at 3 days Narrative: Aerobic Bottle Only Less than seven (7) mL's of blood was collected. Insufficient quantity may yield false negative results. Blood Culture - Blood, Wrist, Left [[id number]] (Normal) Collected: 06/07/25 0601 Lab Status: Preliminary result Specimen: Blood from Wrist, Left Updated: 06/10/25 0730 Blood Culture No growth at 3 days Narrative: Aerobic Bottle Only Less than seven (7) mL's of blood was collected. Insufficient quantity may yield false negative results. Radiology: Imaging Results (Last 72 Hours) Procedure Component Value Units Date/Time CT Soft Tissue Neck Without Contrast - In process [[id number]] Resulted: 06/10/252256 Updated: 06/10/252257 This result has not been signed. Information might be incomplete. FL ERCP pancreatic and biliary ducts [[id number]] Collected: 06/08/25 1531 Updated: 06/08/25 1552 Narrative: FL ERCP PANCREATIC AND BILIARY DUCTS Date of Exam: 06/08/2025 10:49 AM EDT Indication: ENDOSCOPIC RETROGRADE CHOLANGIOPANCREATOGRAPHY. Comparison: None available. Technique: A series of radiographic digital spot films were obtained in conjunction with an endoscopic catheterization of the biliary and pancreatic ductal system, performed by the linux network administrator. Fluoroscopic Time: 5 minutes 57 seconds Number of Images: 10 Findings: Fluoroscopy demonstrates filling of the bile ducts. Impression: Impression: Fluoroscopy demonstrates filling of the bile ducts. Please see procedure report for full findings. Electronically Signed: Migue Mcfarlane MD 06/08/2025 3:48 PM EDT Workstation ID: [id number] I read his radiographic images. Impression: Pneumococcal bacteremia-secondary to left lower lobe pneumonia. There is no evidence of endocarditis by JARED. Choledocholelithiasis- s/p ERCP 06/08 with stone extraction and stent placement. S/P cholecystectomy06/09 LLL pneumococcal pneumonia Left parotitis-he has a new problem of left parotitis. This is usually secondary to Staph aureus and has occurred while on ceftriaxone. We will add coverage for MRSA with daptomycin. Acute left occipital lobe cerebral vascular accident Valvular heart disease-with moderate to severe aortic stenosis and mild to moderate mitral regurgitation. There is no evidence of endocarditis by JARED. Severe sepsis- improved. Encephalopathy, toxic/metabolic, improving Acute hypoxic respiratory failure Leukocytosis/neutrophilia Anemia of chronic disease Choledocholithiasis End stage renal disease/Hemodialysis MWF/dialysis catheter in place for almost a year/RUE AVF not working for about a year. Atrial fibrillation/Eliquis on hold Chronic obstructive pulmonary disease Essential hypertension/dyslipidemia PLAN/RECOMMENDATIONS: Add daptomycin IV Continue Rocephin 2 GM IV daily through 06/13 Possible discharge to rehab I discussed his complex situation with Dr. Kevin Landeros again today. I discussed his complex situation with ID clinical pharmacy today This visit included the following complex service elements: Complex medical decision-making associated with antimicrobial prescribing. In-depth chart review with high level synthesis for complex diagnoses. Managed infection treatment protocol associated with transitions of care for this complex patient. Counseled patients, family members, and/or caregivers regarding antimicrobial stewardship and antibiotic resistance. Pantera Dc MD 06/11/2025 07:23 EDT * Rehan Lincoln MD - 06/10/2025 1:55 PM EDT LOS: 3 days Patient Care Team: Jeffrey Sun MD as PCP - General (Family Medicine) Chief Complaint: 74-year-old with history of ESRD on HD MWF at [facility] last dialyzed yesterday. Patient was transferred from [facility] due to lethargy, confusion, weakness, initially transferred to [facility]. Subjective Interval History: Looking much better today. Review of Systems: No new complaints. Objective Vital Sign Min/Max for last 24 hours Temp Min: 97.6 ??F (36.4 ??C) Max: 98.5 ??F (36.9 ??C) BP Min: 128/50 Max: 167/73 Pulse Min: 56 Max: 65 Resp Min: 16 Max: 20 SpO2 Min: 90 % Max: 98 % Flow (L/min) (Oxygen Therapy) Min: 3 Max: 3 No data recorded Flowsheet Rows Flowsheet Row First Filed Value Admission Height 193 cm (76 ) Documented at 06/07/2025 0243 Admission Weight 134 kg (295 lb 6.7 oz) Documented at 06/07/2025 0200 No intake/output data recorded. I/O last 3 completed shifts: In: 600 [I.V.:600] Out: - Physical Exam: General Appearance: male awake alert oriented no obvious distress laying comfortable Eyes: PER, EOMI. Neck: Supple no JVD. Lungs: Clear to auscultation. Equal chest movement, nonlabored. Heart: RRR. Abdomen: Obesity, laparoscopic bandages noted. Extremities no cyanosis. Neuro: No focal deficit, moving all extremities, alert oriented X 3 WBC WBC Date Value Ref Range Status 06/08/2025 10.13 3.40 - 10.80 10*3/mm3 Final HGB Hemoglobin Date Value Ref Range Status 06/08/2025 8.6 (L) 13.0 - 17.7 g/dL Final HCT Hematocrit Date Value Ref Range Status 06/08/2025 27.7 (L) 37.5 - 51.0 % Final Platlets No results found for: LABPLAT MCV MCV Date Value Ref Range Status 06/08/2025 98.9 (H) 79.0 - 97.0 fL Final Sodium Sodium Date Value Ref Range Status 06/08/2025 137 136 - 145 mmol/L Final Potassium Potassium Date Value Ref Range Status 06/08/2025 5.1 3.5 - 5.2 mmol/L Final Chloride Chloride Date Value Ref Range Status 06/08/2025 93 (L) 98 - 107 mmol/L Final CO2 CO2 Date Value Ref Range Status 06/08/2025 24.1 22.0 - 29.0 mmol/L Final BUN BUN Date Value Ref Range Status 06/08/2025 80.3 (H) 8.0 - 23.0 mg/dL Final Creatinine Creatinine Date Value Ref Range Status 06/08/2025 8.13 (H) 0.76 - 1.27 mg/dL Final Calcium Calcium Date Value Ref Range Status 06/08/2025 8.8 8.6 - 10.5 mg/dL Final PO4 No results found for: CAPO4 Albumin Albumin Date Value Ref Range Status 06/08/2025 2.8 (L) 3.5 - 5.2 g/dL Final Magnesium Magnesium Date Value Ref Range Status 06/09/2025 2.0 1.6 - 2.4 mg/dL Final Uric Acid No results found for: URICACID Results Review: I reviewed the patient's new clinical results. amiodarone, 200 mg, Oral, BID [Held by provider] apixaban, 2.5 mg, Oral, Q12H aspirin, 81 mg, Oral, Daily Or aspirin, 300 mg, Rectal, Daily atorvastatin, 80 mg, Oral, Nightly cefTRIAXone, 2,000 mg, Intravenous, Q24H guaiFENesin, 600 mg, Oral, Q12H ipratropium-albuterol, 3 mL, Nebulization, 4x Daily - RT pantoprazole, 40 mg, Oral, Daily sodium chloride, 10 mL, Intravenous, Q12H sodium chloride, 10 mL, Intravenous, Q12H lactated ringers, 9 mL/hr, Last Rate: 9 mL/hr (06/10/25 1052) Medication Review: Reviewed Assessment & Plan Occipital stroke Choledocholithiasis Acute respiratory failure with hypoxia CAP (community acquired pneumonia) ESRD (end stage renal disease) Atrial fibrillation 1. ESRD: On HD at [facility]. 2. Atrial fibrillation on Eliquis 3. Hypertension 4. Anemia of chronic kidney disease 5. Hyperlipidemia 6. COPD. 7. Ischemic occipital stroke. Plan: Next dialysis on Wednesday orders written.. Renal diet Fluid restriction less than 1500 mL/day. Start home medications. High risk complex patient with multiple medical problems. Rehan Lincoln MD 06/10/25 13:55 EDT * Ivonne Ralph MD - 06/10/2025 11:11 AM EDT Images from the original note were not included. [facility] PROGRESS NOTE Patient Name: Alexa Fuentes : 1950 Date of Admission: 06/06/2025 Primary Care Physician: Jeffrey Sun MD Subjective Subjective CC: F/U AMS HPI: Pt abd pain significantly improved today. He has not concerns this AM. He has not had a BM yet but has has flatulence. Objective Objective Vital Signs: Temp: [97.6 ??F (36.4 ??C)-98.5 ??F (36.9 ??C)] 97.8 ??F (36.6 ??C) Heart Rate: [58-65] 59 Resp: [16-23] 16 BP: (128-167)/(50-77) 167/73 Flow (L/min) (Oxygen Therapy): [3-4] 3 Physical Exam Constitutional: General: He is not in acute distress. Cardiovascular: Rate and Rhythm: Normal rate and regular rhythm. Heart sounds: Normal heart sounds. Pulmonary: Effort: Pulmonary effort is normal. Breath sounds: Normal breath sounds. Abdominal: General: There is no distension. Palpations: Abdomen is soft. Tenderness: There is no abdominal tenderness. Musculoskeletal: Right lower leg: No edema. Left lower leg: No edema. Neurological: General: No focal deficit present. Mental Status: He is alert. Mental status is at baseline. Psychiatric: Mood and Affect: Mood normal. Thought Content: Thought content normal. Results Reviewed: LAB RESULTS: Lab 06/08/25 0848 06/07/25 0603 06/07/25 0057 WBC 10.13 -- 18.26* HEMOGLOBIN 8.6* -- 9.0* HEMATOCRIT 27.7* -- 28.1* PLATELETS 195 -- 120* NEUTROS ABS -- -- 15.45* IMMATURE GRANS (ABS) -- -- 0.90* LYMPHS ABS -- -- 0.52* MONOS ABS -- -- 1.37* EOS ABS -- -- 0.00 MCV 98.9* -- 97.6* LACTATE -- 0.9 -- Lab 06/09/25 1426 06/08/25 0848 06/07/25 0105 06/07/25 0057 SODIUM -- 137 -- 136 POTASSIUM -- 5.1 -- 5.0 CHLORIDE -- 93* -- 93* CO2 -- 24.1 -- 27.9 ANION GAP -- 19.9* -- 15.1* BUN -- 80.3* -- 52.4* CREATININE -- 8.13* -- 6.07* EGFR -- 6.3* -- 9.0* GLUCOSE -- 66 -- 77 CALCIUM -- 8.8 -- 9.0 MAGNESIUM 2.0 -- -- 1.8 HEMOGLOBIN A1C -- -- 4.9 -- TSH -- -- -- 0.534 Lab 06/08/25 0848 06/07/25 0057 TOTAL PROTEIN 5.9* 6.1 ALBUMIN 2.8* 3.0* GLOBULIN 3.1 3.1 ALT (SGPT) 982* 652* AST (SGOT) 730* 558* BILIRUBIN 0.6 0.9 ALK PHOS 111 102 Lab 06/07/25 0057 CHOLESTEROL 62 LDL CHOL 15 HDL CHOL 33* TRIGLYCERIDES 58 Brief Urine Lab Results None Microbiology Results Abnormal Procedure Component Value - Date/Time MRSA Screen, PCR (Inpatient) - Swab, Nares [[id number]] (Abnormal) Collected: 06/08/251904 Lab Status: Final result Specimen: Swab from Nares Updated: 06/08/252151 MRSA PCR Positive Narrative: The negative predictive value of this diagnostic test is high and should only be used to consider de-escalating anti-MRSA therapy. A positive result may indicate colonization with MRSA and must be correlated clinically. FL ERCP pancreatic and biliary ducts Result Date: 06/08/2025 FL ERCP PANCREATIC AND BILIARY DUCTS Date of Exam: 06/08/2025 10:49 AM EDT Indication: ENDOSCOPIC RETROGRADE CHOLANGIOPANCREATOGRAPHY. Comparison: None available. Technique: A series of radiographic digital spot films were obtained in conjunction with an endoscopic catheterization of the biliary andpancreatic ductal system, performed by the linux network administrator. Fluoroscopic Time: 5 minutes 57 seconds Number of Images: 10 Findings: Fluoroscopy demonstrates filling of the bile ducts. Impression: Impression: Fluoroscopy demonstrates filling of the bile ducts. Please see procedure report for full findings. Electronically Signed: Migue Mcfarlane MD 06/08/2025 3:48 PM EDT Workstation ID: [id number] Results for orders placed during the hospital encounter of 06/06/25 Adult Transthoracic Echo Complete W/ Cont if Necessary Per Protocol (With Agitated Saline) 06/07/2025 4:41 PM Interpretation Summary Left ventricular systolic function is normal. Calculated left ventricular EF = 53.5% Left ventricular ejection fraction appears to be 51 - 55%. Normal left ventricular cavity size noted. Left ventricular wall thickness is consistent with mild concentric hypertrophy. Left ventricular diastolic function is consistent with (grade II w/high LAP) pseudonormalization. Left atrial volume is mildly increased. Saline test results are negative. There is mild calcification of the aortic valve. Mild aortic valve regurgitation is present. Moderate aortic valve stenosis is present. Aortic valve area is 1.39 cm2. Peak velocity of the flow distalto the aortic valve is 308.8 cm/s. Aortic valve mean pressure gradient is 21.0 mmHg. Mild mitral annular calcification is present. Mild mitral valve regurgitation is present. No significant mitral valve stenosis is present. The mitral valve mean gradient is 4.0 mmHg. . Trace tricuspid valve regurgitation is present. Estimated right ventricular systolic pressure from tricuspid regurgitation is normal (<35 mmHg). Aortic root = 4.4 cm which is within normal limits when indexed to body surface area. I have personally reviewed the therapy plans: [] PT/OT/ ST Therapy Plans Current medications: Scheduled Meds:amiodarone, 200 mg, Oral, BID [Held by provider] apixaban, 2.5 mg, Oral, Q12H aspirin, 81 mg, Oral, Daily Or aspirin, 300 mg, Rectal, Daily atorvastatin, 80 mg, Oral, Nightly cefTRIAXone, 2,000 mg, Intravenous, Q24H guaiFENesin, 600 mg, Oral, Q12H ipratropium-albuterol, 3 mL, Nebulization, 4x Daily - RT pantoprazole, 40 mg, Oral, Daily sodium chloride, 10 mL, Intravenous, Q12H sodium chloride, 10 mL, Intravenous, Q12H Continuous Infusions:lactated ringers, 9 mL/hr, Last Rate: 9 mL/hr (06/10/25 1052) PRN Meds:. acetaminophen OR acetaminophen OR acetaminophen albumin human senna-docusate sodium AND polyethylene glycol AND bisacodyl AND bisacodyl Calcium Replacement - Follow Nurse / BPA Driven Protocol HYDROmorphone AND naloxone ipratropium-albuterol Magnesium Standard Dose Replacement - Follow Nurse / BPA Driven Protocol nitroglycerin ondansetron oxyCODONE-acetaminophen Phosphorus Replacement - Follow Nurse / BPA Driven Protocol Potassium Replacement - Follow Nurse / BPA Driven Protocol simethicone sodium chloride sodium chloride sodium chloride Assessment & Plan Assessment & Plan Active Hospital Problems Diagnosis POA Occipital stroke [I63.9] Yes Choledocholithiasis [K80.50] Yes Acute respiratory failure with hypoxia [J96.01] Yes CAP (community acquired pneumonia) [J18.9] Yes ESRD (end stage renal disease) [N18.6] Yes Atrial fibrillation [I48.91] Yes Resolved Hospital Problems No resolved problems to display. Brief Hospital Course to date: Alexa Fuentes is a 74 y.o. male with hx of HTN, HLD, COPD, Afib on Eliquis, and ESRD on HD who presents from [facility] due to AMS and concern for stroke. In addition he was found to have pneumonia and possible choledocholithiasis. Stroke team accepted in transfer to [facility]. Acute CVA, left occipital lobe --CT head at OSH revealed acute/subacute left occipital lobe ischemia, CTA showed no large vessel occlusion. Given that he is on Eliquis, with the last dose taken that morning, he was not a candidatefor TNK. --MRI brain here confirms tiny acute infarct within the left occipital lobe. Questionable additional punctate cortical acute/subacute infarct within the left centrum semiovale. --Bilateral carotid duplex showing less than 50% stenosis bilaterally --Echo with EF 53% and grade II diastolic dysfunction, negative saline test, --Stroke Neurology following, okay to continue Eliquis 2.5 mg BID (holding for ERCP and CCY), adding ASA 81 mg; continue atorvastatin 80 mg nightly --PT/OT/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 evaluations Choledocholithiasis --CT A/P at OSH showed a distended gallbladder with a 5 mm stone, wall thickening, surrounding pericholecystic fluid, and mild intrahepatic ductal dilation, highly suspicious for choledocholithiasis.These findings were consistent with prior studies, including MRI. --MRCP 06/07/25: 7 mm stone in lower common bile duct, cholelithiasis without cholecystitis --Continue Rocephin, Flagyl --GI consulted s/p ERCP --gen surgery consulted for CCY, to went to the OR 06/[address] Guerrero - DVT ppx for now, resume eliquis when OK with surgery Acute hypoxic respiratory failure Pneumonia Strep pneumo bacteremia Sepsis --CT chest at OSH showed bilateral ground-glass opacities --Required non-rebreather mask at OSH, currently on 3 liters and does not wear home oxygen at baseline --OSH blood cultures positive for strep pneumo, will try and obtain susceptibilities from them --Scheduled and PRN duonebs --Continue Rocephin and flagyl --ID consulted --Wean O2 as tolerated Acute encephalopathy- improving --Likely multifactorial due to pneumonia, hypoxia, stroke --back to baseline ESRD --On HD MWF --Nephrology consulted -- AM labs pending Afib --Holding Eliquis for now for CCY, resume when OK with surgery --Continue home Amiodarone HTN HLD --Not on any home BP meds --LDL 15 --Continue statin COPD --Scheduled and PRN nebs Expected Discharge Location and Transportation: TBD Expected Discharge Expected Discharge Date: 06/11/2025; Expected Discharge Time: VTE Prophylaxis: Pharmacologic & mechanical VTE prophylaxis orders are present. AM-PAC 6 Clicks Score (PT): 10 (06/10/25 0873) CODE STATUS: Code Status and Medical Interventions: CPR (Attempt to Resuscitate); Full Ordered at: 06/09/25 1232 Code Status (Patient has no pulse and is not breathing): CPR (Attempt to Resuscitate) Medical Interventions (Patient has pulse or is breathing): Full Level Of Support Discussed With: Patient Ivonne Ralph MD 06/10/25 * Charles Guerrero MD - 06/10/2025 10:18 AM EDT Patient Name: Alexa Fuentes Date of : 1950 [id number] Surgery Progress Note Date of visit: 06/10/2025 Subjective Pain improved. No nausea or vomiting. No fevers or chills. Objective BP 167/73 (BP Location: Left arm, Patient Position: Lying) Pulse 59 Temp 98.5 ??F (36.9 ??C) (Oral) Resp 16 Ht 193 cm (75.98 ) Wt 134 kg (295 lb 6.7 oz) SpO2 90% BMI 35.97 kg/m?? Intake/Output Summary (Last 24 hours) at 06/10/2025 1018 Last data filed at 06/09/2025 1227 Gross per 24 hour Intake 600 ml Output -- Net 600 ml CV: Rhythm regular and rate regular L: Clear to auscultation bilaterally Abd: Bowel sounds positive, soft, appropriately tender, dressings clean dry and intact Ext: No cyanosis, clubbing, edema Recent labs and imaging that are back at this time have been reviewed. A.m. labs pending Assessment & Plan Patient postop day 1 from laparoscopic cholecystectomy for choledocholithiasis. Diet as tolerated. Pain control. Out of bed, incentive spirometer, DVT prophylaxis. Await a.m. lab results. Charles Guerrero MD 06/10/2025 10:18 EDT * Pantera Dc MD - 06/10/2025 7:21 AM EDT Images from the original note were not included. INFECTIOUS DISEASE Progress Note Alexa Fuentes 1950 [id number] Date of Consult: 06/08/2025 Admission Date: 06/06/2025 Requesting Provider: Ivonne Ralph MD Evaluating Physician: Pantera Dc MD Reason for Consultation: Strep pneumoniae bacteremia History of present illness: 06/08/2025: Patient is a 74 y.o. male with h/o COPD, ESRD/HD MWF/RUE AVF not working for about a year/dialysis catheter in place for close to a year, afib/Eliquis, obesity, HTN, HLD, and CVA who we were asked to see for Streptococcus pneumoniae bacteremia. He was transferred from [facility] to [facility] on 06/06 for concerns for stroke along with altered mental status. He was noted at [facility] to be more lethargic and confused and was transferred to [facility]. [facility] CT [facility] showed acute/subacute left occipital lobe ischemia and a CTA of head showed no large vessel occlusion. He was not a candidate for TNK. His labs at OSH were WBC 21,000, creatinine 5.10, AST 485, ALT 482, and bilirubin 1.5. A CT scan of a/p showed distended gallbladder with 5 mm stone, wall thickening, pericholecystic fluid, and mild intrahepatic ductal dilatation suspicious for choledocholel ithiasis. A CT scan of chest showed bilateral GGO. He was started on IV antibiotics and transferredto [facility] on 06/06. Since arrival, the patient has been afebrile. An MRI of the brain on 06/07 show tiny acute infarct in the left occipital lobe and chronic infarcts in bilateral cerebellum and left occipital lobe alongwith pansinus mucosal thickening and bilateral mastoid effusions. An MRCP of abd on 06/07 showed choledocholelithiasis in CBD and cholelithiasis without acute cholecystitis along with LLL consolidation c/w pneumonia. He underwent an ERCP with stone removal and stent placement on 06/[address] Foote. He was evaluated by Dr. Tim for possible cholecystectomy on 06/09. Blood cultures are negative to date. A C.auris PCR is negative. He is currently on Rocephin and Flagyl. ID was asked to evalaute and manage his antibiotic therapy. His blood cultures from [facility] became positive for GPC in pairs in 2 of 2 sets (4 of 4 bottles) with Streptococcus pneumoniae identified by [employer] PCR. (Fax is on chart) 06/09/2025: He remains afebrile. Blood cultures here are no growth so far. I asked Dr. Arboleda review his echocardiogram. He clearly has an abnormal aortic valve and we cannot exclude a vegetation. He underwent cholecystectomy today. 06/10/2025: He remains afebrile. Blood cultures here are no growth so far. He remains confused. He denies increased cough and sputum production. He denies severe abdominal pain. Past Medical History: Diagnosis Date COPD (chronic obstructive pulmonary disease) ESRD (end stage renal disease) on dialysis Hyperlipidemia Hypertension Stroke Past Surgical History: Procedure Laterality Date COLONOSCOPY KNEE SURGERY Right Family History Problem Relation Age of Onset Cancer Father Social History Socioeconomic History Marital status: Tobacco Use Smoking status: Never Smokeless tobacco: Never Vaping Use Vaping status: Never Used Substance and Sexual Activity Alcohol use: Never Drug use: Never Sexual activity: Not Currently No Known Allergies Medication: Current Facility-Administered Medications: acetaminophen (TYLENOL) tablet 650 mg, 650 mg, Oral, Q4H PRN, 650 mg at 06/08/25 0330 OR acetaminophen (TYLENOL) 160 MG/5ML oral solution 650 mg, 650 mg, Oral, Q4H PRN OR acetaminophen (TYLENOL) suppository 650 mg, 650 mg, Rectal, Q4H PRN, Charles Guerrero MD albumin human 25 % IV SOLN 12.5 g, 12.5 g, Intravenous, PRN, Charles Guerrero MD, 12.5 g at 06/08/25 1507 amiodarone (PACERONE) tablet 200 mg, 200 mg, Oral, BID, Charles Guerrero MD, 200 mg at 015 [Held by provider] apixaban (ELIQUIS) tablet 2.5 mg, 2.5 mg, Oral, Q12H, Charles Guerrero MD aspirin chewable tablet 81 mg, 81 mg, Oral, Daily OR aspirin suppository 300 mg, 300 mg, Rectal, Daily, Charles Guerrero MD atorvastatin (LIPITOR) tablet 80 mg, 80 mg, Oral, Nightly, Charles Guerrero MD, 80 mg at 06/09/252014 sennosides-docusate (PERICOLACE) 8.6-50 MG per tablet 2 tablet, 2 tablet, Oral, BID PRN AND polyethylene glycol (MIRALAX) packet 17 g, 17 g, Oral, Daily PRN AND bisacodyl (DULCOLAX) EC tablet5 mg, 5 mg, Oral, Daily PRN AND bisacodyl (DULCOLAX) suppository 10 mg, 10 mg, Rectal, Daily PRN, Charles Guerrero MD Calcium Replacement - Follow Nurse / BPA Driven Protocol, , Not Applicable, PRN, Charles Guerrero MD cefTRIAXone (ROCEPHIN) 2,000 mg in sodium chloride 0.9 % 100 mL MBP, 2,000 mg, Intravenous, Q24H, Charles Guerrero MD, Last Rate: 200 mL/hr at 06/10/25 0517, 2,000 mg at 06/10/25 05 guaiFENesin (MUCINEX) 12 hr tablet 600 mg, 600 mg, Oral, Q12H, Charles Guerrero MD, 600 mg at 06/09/252014 HYDROmorphone (DILAUDID) injection 0.5 mg, 0.5 mg, Intravenous, Q2H PRN AND naloxone (NARCAN) injection 0.1 mg, 0.1 mg, Intravenous, Q5 Min PRN, Charles Guerrero MD ipratropium-albuterol (DUO-NEB) nebulizer solution 3 mL, 3 mL, Nebulization, 4x Daily - RT, Charles Guerrero MD, 3 mL at 06/09/25 2118 ipratropium-albuterol (DUO-NEB) nebulizer solution 3 mL, 3 mL, Nebulization, Q6H PRN, Charles Guerrero MD lactated ringers infusion, 9 mL/hr, Intravenous, Continuous, Maria Esther Espinoza CRNA, Stopped at 06/09/25 1442 Magnesium Standard Dose Replacement - Follow Nurse / BPA Driven Protocol, , Not Applicable, PRN, Charles Guerrero MD metroNIDAZOLE (FLAGYL) IVPB 500 mg, 500 mg, Intravenous, Q8H, Charles Guerrero MD, Last Rate: 200 mL/hr at 06/10/25 0341, 500 mg at 06/10/25 0341 nitroglycerin (NITROSTAT) SL tablet 0.4 mg, 0.4 mg, Sublingual, Q5 Min PRN, Charles Guerrero MD ondansetron (ZOFRAN) injection 4 mg, 4 mg, Intravenous, Q6H PRN, Charles Guerrero MD, 4 mg at 06/08/25 1351 oxyCODONE-acetaminophen (PERCOCET) 5-325 MG per tablet 1 tablet, 1 tablet, Oral, Q4H PRN, Charles Guerrero MD, 1 tablet at 06/09/252014 pantoprazole (PROTONIX) EC tablet 40 mg, 40 mg, Oral, Daily, Charles Guerrero MD, 40 mg at 06/09/25 1732 Phosphorus Replacement - Follow Nurse / BPA Driven Protocol, , Not Applicable, PRN, Charles Guerrero MD Potassium Replacement - Follow Nurse / BPA Driven Protocol, , Not Applicable, PRN, Charles Guerrero MD simethicone (MYLICON) chewable tablet 80 mg, 80 mg, Oral, 4x Daily PRN, Ivonne Bah MD, 80 mg at 06/09/25 1518 sodium chloride 0.9 % flush 10 mL, 10 mL, Intravenous, Q12H, Charles Guerrero MD, 10 mL at 06/09/25 2016 sodium chloride 0.9 % flush 10 mL, 10 mL, Intravenous, PRN, Charles Guerrero MD sodium chloride 0.9 % flush 10 mL, 10 mL, Intravenous, Q12H, Charles Guerrero MD, 10 mL at 06/09/252015 sodium chloride 0.9 % flush 10 mL, 10 mL, Intravenous, PRN, Charles Guerrero MD sodium chloride 0.9 % infusion 40 mL, 40 mL, Intravenous, PRN, Charles Guerrero MD Antibiotics: Anti-Infectives (From admission, onward) Ordered Dose/Rate Route Frequency Start Stop 06/07/25 1532 metroNIDAZOLE (FLAGYL) IVPB 500 mg Ordering Provider: Charles Guerrero MD 500 mg 200 mL/hr over 30 Minutes Intravenous Every 8 Hours 06/07/25 2000 06/14/25 1159 06/07/25 0437 metroNIDAZOLE (FLAGYL) IVPB 500 mg Status: Discontinued Ordering Provider: Rolan Muro MD 500 mg 200 mL/hr over 30 Minutes Intravenous Every 8 Hours 06/07/25 0600 06/07/25 1532 06/07/25 0437 cefTRIAXone (ROCEPHIN) 2,000 mg in sodium chloride 0.9 % 100 mL MBP Ordering Provider: Charles Guerrero MD 2,000 mg 200 mL/hr over 30 Minutes Intravenous Every 24 Hours 06/07/25 0600 06/12/25 0559 Review of Systems: He is confused and cannot provide a reliable review of systems Physical Exam: Vital Signs Temp (24hrs), Av.9 ??F (36.6 ??C), Min:97.6 ??F (36.4 ??C), Max:98.5 ??F (36.9 ??C) Temp Min: 97.6 ??F (36.4 ??C) Max: 98.5 ??F (36.9 ??C) BP Min: 126/53 Max: 165/68 Pulse Min: 57 Max: 65 Resp Min: 16 Max: 23 SpO2 Min: 91 % Max: 98 % GENERAL: Awake and alert, in no acute distress. He is pleasantly confused HEENT: Normocephalic, atraumatic. PERRL. EOMI. No conjunctival injection. No icterus. Oropharynx clear without evidence of thrush or exudate. NECK: Supple. HEART: 3/6 systolic murmur LUNGS:Diminished at left lung base with basilar rales, relatively clear right lung field without wheezing,. Normal respiratory effort. Nonlabored. ABDOMEN: Soft, nontender, nondistended.. No rebound or guarding. NO mass or HSM. Obese. EXT: No cyanosis 1+ edema. No cord. : Without Archibald catheter. MSK: No joint effusions or erythema SKIN: Warm and dry without cutaneous eruptions on Inspection/palpation. NEURO: pleasantly confused Motor 5/5 strength Left CW HD cath dry without erythema Laboratory Data Results from last 7 days Lab Units 06/08/25 0848 06/07/25 0057 WBC 10*3/mm3 10.13 18.26* HEMOGLOBIN g/dL 8.6* 9.0* HEMATOCRIT % 27.7* 28.1* PLATELETS 10*3/mm3 195 120* Results from last 7 days Lab Units 06/08/25 0848 SODIUM mmol/L 137 POTASSIUM mmol/L 5.1 CHLORIDE mmol/L 93* CO2 mmol/L 24.1 BUN mg/dL 80.3* CREATININE mg/dL 8.13* GLUCOSE mg/dL 66 CALCIUM mg/dL 8.8 Results from last 7 days Lab Units 06/08/25 0848 ALK PHOS U/L 111 BILIRUBIN mg/dL 0.6 ALT (SGPT) U/L 982* AST (SGOT) U/L 730* Results from last 7 days Lab Units 06/07/25 0603 LACTATE mmol/L 0.9 Estimated Creatinine Clearance: 11.6 mL/min (A) (by C-G formula based on SCr of 8.13 mg/dL (H)). Microbiology: Microbiology Results (last 10 days) Procedure Component Value - Date/Time MRSA Screen, PCR (Inpatient) - Swab, Nares [[id number]] (Abnormal) Collected: 06/08/251904 Lab Status: Final result Specimen: Swab from Nares Updated: 06/08/252151 MRSA PCR Positive Narrative: The negative predictive value of this diagnostic test is high and should only be used to consider de-escalating anti-MRSA therapy. A positive result may indicate colonization with MRSA and must be correlated clinically. KIMANI AURIS PCR - Swab, Axilla Right, Axilla Left and Groin [[id number]] Collected: 06/07/25 0845 Lab Status: Final result Specimen: Swab from Axilla Right, Axilla Left and Groin Updated: 06/08/25 1715 KIMANI AURIS PCR (MITUL) Not Detected Blood Culture - Blood, Wrist, Left [[id number]] (Normal) Collected: 06/07/25 0603 Lab Status: Preliminary result Specimen: Blood from Wrist, Left Updated: 06/09/25 0730 Blood Culture No growth at 2 days Narrative: Aerobic Bottle Only Less than seven (7) mL's of blood was collected. Insufficient quantity may yield false negative results. Blood Culture - Blood, Wrist, Left [[id number]] (Normal) Collected: 06/07/25 0601 Lab Status: Preliminary result Specimen: Blood from Wrist, Left Updated: 06/09/25 0730 Blood Culture No growth at 2 days Narrative: Aerobic Bottle Only Less than seven (7) mL's of blood was collected. Insufficient quantity may yield false negative results. Radiology: Imaging Results (Last 72 Hours) Procedure Component Value Units Date/Time FL ERCP pancreatic and biliary ducts [[id number]] Collected: 06/08/25 1531 Updated: 06/08/25 1552 Narrative: FL ERCP PANCREATIC AND BILIARY DUCTS Date of Exam: 06/08/2025 10:49 AM EDT Indication: ENDOSCOPIC RETROGRADE CHOLANGIOPANCREATOGRAPHY. Comparison: None available. Technique: A series of radiographic digital spot films were obtained in conjunction with an endoscopic catheterization of the biliary and pancreatic ductal system, performed by the linux network administrator. Fluoroscopic Time: 5 minutes 57 seconds Number of Images: 10 Findings: Fluoroscopy demonstrates filling of the bile ducts. Impression: Impression: Fluoroscopy demonstrates filling of the bile ducts. Please see procedure report for full findings. Electronically Signed: Migue Mcfarlane MD 06/08/2025 3:48 PM EDT Workstation ID: [id number] 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 FEES - Fiberoptic Endo Eval Swallow [[id number]] Resulted: 06/07/251658 Updated: 06/07/251658 Narrative: This procedure was auto-finalized with no dictation required. MRI abdomen wo contrast mrcp [[id number]] Collected: 06/07/25 1008 Updated: 06/07/25 1029 Narrative: MRI ABDOMEN WO CONTRAST MRCP Date of Exam: 06/07/2025 9:28 AM EDT Indication: CBD dilation with choledocholithiasis. Comparison: CT abdomen pelvis 06/06/2025. Technique: Routine multiplanar/multisequence images of the abdomen were obtained with MRCP sequences without contrast administration. Findings: Motion-degraded exam. Left lower lobe consolidation with trace left pleural effusion. Heart appears enlarged. No morphologic changes of chronic liver disease. No evidence of hepatic steatosis. No evidence of focal liver lesion on this noncontrast exam. Cholelithiasis. Mild gallbladder distention without wallthickening or pericholecystic fluid. Intra and extrahepatic biliary ductal dilatation to the level of the ampulla with common bile duct measuring 15 mm. 7 mm ovoid filling defect within the lower common bile duct consistent with choledocholithiasis. No pancreatic ductal dilatation. No findings of acute pancreatitis. Spleen is normal in size. Bilateral renal atrophy. Subcentimeter hemorrhagic/proteinaceous foci along the left kidney may represent a hemorrhagic/proteinaceous cyst, though incompletely characterized on this noncontrast exam.Otherwise there are multiple bilateral renal cysts are overall simple-appearing. No hydronephrosis. No dilated bowel loops within the gopjl-np-uria. No free fluid in the abdomen. No pathologically enlarged lymph nodes. No abdominal aortic aneurysm. Atherosclerosis. No body wall abnormality. Multilevel spondylosis. No acute or suspicious osseous abnormalities evident on this noncontrast exam. Impression: Impression: Choledocholithiasis with a 7 mm stone in the lower common bile duct. Intra and extrahepatic biliaryductal dilatation with common bile duct measuring 15 mm. Correlate with serum bilirubin and consider ERCP. Cholelithiasis without evidence of acute cholecystitis. Left lower lobe consolidation with trace left pleural effusion, suggestive of pneumonia. Chronic/ancillary findings as above. Electronically Signed: Preet Crowley MD 06/07/2025 10:26 AM EDT Workstation ID: [id number] MRI Brain Without Contrast [[id number]] Collected: 06/07/25 1013 Updated: 06/07/25 1026 Narrative: MRI BRAIN WO CONTRAST Date of Exam: 06/07/2025 9:17 AM EDT Indication: Stroke, follow up Left occipital stroke seen on CT scan. Comparison: Head CT dated 06/06/2025 Technique: Routine multiplanar/multisequence sequence images of the brain were obtained without contrast administration. FINDINGS: There is a tiny focus of DWI hyperintense signal within the left occipital lobe (series 5, image 86), concerning for tiny acute infarct. Questionable additional punctate cortical infarct within the left centrum semiovale (series 5, image 96). Foci of T2/FLAIR signal hyperintensity are seen within the bilateral hemispheric white matter. There is cortical atrophy with prominent sulcation and ventriculomegaly. There is encephalomalacia involving the bilateral cerebellum and left occipital lobe, likely related to remote infarcts. Midline structures appear unremarkable. No significant mass effect, intracranial hemorrhage, or hydrocephalus is identified. The visualized intracranial flow- voids appear unremarkable. There is pansinus mucosal thickening with complete opacification of the left maxillary sinus. Bilateral mastoid effusions are also seen. Bilateral lens prostheses noted. The visualized superficial soft tissues and cervical spine demonstrate no significant abnormality. Impression: 1.Findings concerning for tiny acute infarct within the left occipital lobe (series 5, image 86). Questionable additional punctate cortical acute/subacute infarct within the left centrum semiovale (series 5, image 96). 2.Additional findings compatible with chronic microvascular ischemic change and diffuse cortical atrophy. 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 3.Pansinus mucosal thickening and bilateral mastoid effusions. Electronically Signed: Vimal Lares MD 06/07/2025 10:22 AM EDT Workstation ID: [id number] I read his radiographic images. Impression: Acute choledocholelithiasis- s/p ERCP 06/08 with stone extraction and stent placement. S/P cholecystectomy 06/09 Streptococcus pneumoniae bacteremia at OSH-secondary to left lower lobe pneumonia. He also has significant valvular heart disease and would be at risk for pneumococcal endocarditis. LLL pneumococcal pneumonia Acute left occipital lobe cerebral vascular accident Moderate aortic stenosis per TTE. At risk for pneumococcal endocarditis. Consider JARED. Severe sepsis- manifested by leukocytosis, acute respiratory failure, transaminitis, hyperbilirubinemia, and encephalopathy secondary to Strep pneumo bacteremia, pneumonia, and choledocholelithiasis/cholangitis. Valvular heart disease-with moderate aortic stenosis Encephalopathy, toxic/metabolic, improving Acute hypoxic respiratory failure/on 3L O2. Leukocytosis/neutrophilia Anemia of chronic disease Choledocholithiasis End stage renal disease/Hemodialysis MWF/dialysis catheter in place for almost a year/RUE AVF not working for about a year. Atrial fibrillation/Eliquis on hold Chronic obstructive pulmonary disease Essential hypertension/dyslipidemia PLAN/RECOMMENDATIONS: Follow blood cultures here and at [facility] Continue Rocephin 2 GM IV daily Please call [facility] laboratory to have then fax final blood cultures results when done. JARED to evaluate for endocarditis Since he had multiple positive blood cultures for pneumococcus in the setting of valvular heart disease and stroke, we should evaluate for endocarditis with a JARED. I discussed his complex situation with Dr. Kevin Landeros today. This visit included the following complex service elements: Complex medical decision-making associated with antimicrobial prescribing. In-depth chart review with high level synthesis for complex diagnoses. Managed infection treatment protocol associated with transitions of care for this complex patient. Counseled patients, family members, and/or caregivers regarding antimicrobial stewardship and antibiotic resistance. Pantera Dc MD 06/10/2025 07:21 EDT * Ivonne Ralph MD - 06/09/2025 3:51 PM EDT Images from the original note were not included. [facility] PROGRESS NOTE Patient Name: Alexa Fuentes : 1950 Date of Admission: 06/06/2025 Primary Care Physician: Jeffrey Sun MD Subjective Subjective CC: F/U AMS HPI: Pt with some abdominal pain and bloating after his surgery today. Reports some gas pains. Objective Objective Vital Signs: Temp: [96 ??F (35.6 ??C)-98 ??F (36.7 ??C)] 98 ??F (36.7 ??C) Heart Rate: [53-63] 59 Resp: [16-23] 23 BP: (103-144)/(53-72) 131/53 Flow (L/min) (Oxygen Therapy): [3-4] 4 Physical Exam Constitutional: General: He is not in acute distress. Cardiovascular: Rate and Rhythm: Normal rate and regular rhythm. Heart sounds: Normal heart sounds. Pulmonary: Effort: Pulmonary effort is normal. Breath sounds: Normal breath sounds. Abdominal: General: There is distension. Palpations: Abdomen is soft. Tenderness: There is abdominal tenderness. Comments: Mild tenderness with some bloating, soft Musculoskeletal: Right lower leg: No edema. Left lower leg: No edema. Neurological: General: No focal deficit present. Mental Status: He is alert. Mental status is at baseline. Psychiatric: Mood and Affect: Mood normal. Thought Content: Thought content normal. Results Reviewed: LAB RESULTS: Lab 06/08/25 0848 06/07/25 0603 06/07/25 0057 WBC 10.13 -- 18.26* HEMOGLOBIN 8.6* -- 9.0* HEMATOCRIT 27.7* -- 28.1* PLATELETS 195 -- 120* NEUTROS ABS -- -- 15.45* IMMATURE GRANS (ABS) -- -- 0.90* LYMPHS ABS -- -- 0.52* MONOS ABS -- -- 1.37* EOS ABS -- -- 0.00 MCV 98.9* -- 97.6* LACTATE -- 0.9 -- Lab 06/09/25 1426 06/08/25 0848 06/07/25 0105 06/07/25 0057 SODIUM -- 137 -- 136 POTASSIUM -- 5.1 -- 5.0 CHLORIDE -- 93* -- 93* CO2 -- 24.1 -- 27.9 ANION GAP -- 19.9* -- 15.1* BUN -- 80.3* -- 52.4* CREATININE -- 8.13* -- 6.07* EGFR -- 6.3* -- 9.0* GLUCOSE -- 66 -- 77 CALCIUM -- 8.8 -- 9.0 MAGNESIUM 2.0 -- -- 1.8 HEMOGLOBIN A1C -- -- 4.9 -- TSH -- -- -- 0.534 Lab 06/08/25 0848 06/07/25 0057 TOTAL PROTEIN 5.9* 6.1 ALBUMIN 2.8* 3.0* GLOBULIN 3.1 3.1 ALT (SGPT) 982* 652* AST (SGOT) 730* 558* BILIRUBIN 0.6 0.9 ALK PHOS 111 102 Lab 06/07/25 0057 CHOLESTEROL 62 LDL CHOL 15 HDL CHOL 33* TRIGLYCERIDES 58 Brief Urine Lab Results None Microbiology Results Abnormal Procedure Component Value - Date/Time MRSA Screen, PCR (Inpatient) - Swab, Nares [[id number]] (Abnormal) Collected: 06/08/251904 Lab Status: Final result Specimen: Swab from Nares Updated: 06/08/252151 MRSA PCR Positive Narrative: The negative predictive value of this diagnostic test is high and should only be used to consider de-escalating anti-MRSA therapy. A positive result may indicate colonization with MRSA and must be correlated clinically. FL ERCP pancreatic and biliary ducts Result Date: 06/08/2025 FL ERCP PANCREATIC AND BILIARY DUCTS Date of Exam: 06/08/2025 10:49 AM EDT Indication: ENDOSCOPIC RETROGRADE CHOLANGIOPANCREATOGRAPHY. Comparison: None available. Technique: A series of radiographic digital spot films were obtained in conjunction with an endoscopic catheterization of the biliary andpancreatic ductal system, performed by the linux network administrator. Fluoroscopic Time: 5 minutes 57 seconds Number of Images: 10 Findings: Fluoroscopy demonstrates filling of the bile ducts. Impression: Impression: Fluoroscopy demonstrates filling of the bile ducts. Please see procedure report for full findings. Electronically Signed: Migue Mcfarlane MD 06/08/2025 3:48 PM EDT Workstation ID: [id number] Duplex Carotid Ultrasound CAR Result Date: 06/07/2025 Right internal carotid artery demonstrates a less than 50% stenosis. Right vertebral artery was notvisualized. Left internal carotid artery demonstrates a less than 50% stenosis. Antegrade left vertebral flow. 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 FEES - Fiberoptic Endo Eval Swallow Result Date: 06/07/2025 This procedure was auto-finalized with no dictation required. Results for orders placed during the hospital encounter of 06/06/25 Adult Transthoracic Echo Complete W/ Cont if Necessary Per Protocol (With Agitated Saline) 06/07/2025 4:41 PM Interpretation Summary Left ventricular systolic function is normal. Calculated left ventricular EF = 53.5% Left ventricular ejection fraction appears to be 51 - 55%. Normal left ventricular cavity size noted. Left ventricular wall thickness is consistent with mild concentric hypertrophy. Left ventricular diastolic function is consistent with (grade II w/high LAP) pseudonormalization. Left atrial volume is mildly increased. Saline test results are negative. There is mild calcification of the aortic valve. Mild aortic valve regurgitation is present. Moderate aortic valve stenosis is present. Aortic valve area is 1.39 cm2. Peak velocity of the flow distalto the aortic valve is 308.8 cm/s. Aortic valve mean pressure gradient is 21.0 mmHg. Mild mitral annular calcification is present. Mild mitral valve regurgitation is present. No significant mitral valve stenosis is present. The mitral valve mean gradient is 4.0 mmHg. . Trace tricuspid valve regurgitation is present. Estimated right ventricular systolic pressure from tricuspid regurgitation is normal (<35 mmHg). Aortic root = 4.4 cm which is within normal limits when indexed to body surface area. I have personally reviewed the therapy plans: [] PT/OT/ ST Therapy Plans Current medications: Scheduled Meds:amiodarone, 200 mg, Oral, BID [Held by provider] apixaban, 2.5 mg, Oral, Q12H aspirin, 81 mg, Oral, Daily Or aspirin, 300 mg, Rectal, Daily atorvastatin, 80 mg, Oral, Nightly cefTRIAXone, 2,000 mg, Intravenous, Q24H guaiFENesin, 600 mg, Oral, Q12H ipratropium-albuterol, 3 mL, Nebulization, 4x Daily - RT metroNIDAZOLE, 500 mg, Intravenous, Q8H pantoprazole, 40 mg, Oral, Daily sodium chloride, 10 mL, Intravenous, Q12H sodium chloride, 10 mL, Intravenous, Q12H Continuous Infusions:lactated ringers, 9 mL/hr PRN Meds:. acetaminophen OR acetaminophen OR acetaminophen albumin human senna-docusate sodium AND polyethylene glycol AND bisacodyl AND bisacodyl Calcium Replacement - Follow Nurse / BPA Driven Protocol HYDROmorphone AND naloxone ipratropium-albuterol Magnesium Standard Dose Replacement - Follow Nurse / BPA Driven Protocol nitroglycerin ondansetron oxyCODONE-acetaminophen Phosphorus Replacement - Follow Nurse / BPA Driven Protocol Potassium Replacement - Follow Nurse / BPA Driven Protocol simethicone sodium chloride sodium chloride sodium chloride Assessment & Plan Assessment & Plan Active Hospital Problems Diagnosis POA Occipital stroke [I63.9] Yes Choledocholithiasis [K80.50] Yes Acute respiratory failure with hypoxia [J96.01] Yes CAP (community acquired pneumonia) [J18.9] Yes ESRD (end stage renal disease) [N18.6] Yes Atrial fibrillation [I48.91] Yes Resolved Hospital Problems No resolved problems to display. Brief Hospital Course to date: Alexa Fuentes is a 74 y.o. male with hx of HTN, HLD, COPD, Afib on Eliquis, and ESRD on HD who presents from [facility] due to AMS and concern for stroke. In addition he was found to have pneumonia and possible choledocholithiasis. Stroke team accepted in transfer to [facility]. Acute encephalopathy- improving --Likely multifactorial due to pneumonia, hypoxia, stroke --back to baseline Acute CVA, left occipital lobe --CT head at OSH revealed acute/subacute left occipital lobe ischemia, CTA showed no large vessel occlusion. Given that he is on Eliquis, with the last dose taken that morning, he was not a candidatefor TNK. --MRI brain here confirms tiny acute infarct within the left occipital lobe. Questionable additional punctate cortical acute/subacute infarct within the left centrum semiovale. --Bilateral carotid duplex showing less than 50% stenosis bilaterally --Echo with EF 53% and grade II diastolic dysfunction, negative saline test, --Stroke Neurology following, okay to continue Eliquis 2.5 mg BID (holding for ERCP and CCY), adding ASA 81 mg; continue atorvastatin 80 mg nightly --PT/OT/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 evaluations Choledocholithiasis --CT A/P at OSH showed a distended gallbladder with a 5 mm stone, wall thickening, surrounding pericholecystic fluid, and mild intrahepatic ductal dilation, highly suspicious for choledocholithiasis.These findings were consistent with prior studies, including MRI. --MRCP 06/07/25: 7 mm stone in lower common bile duct, cholelithiasis without cholecystitis --Patient reports he was told a long time ago about this issue and he tried to get them to do something about it but no one did --Continue Rocephin, Flagyl --GI consulted s/p ERCP --gen surgery consulted for CCY, to went to the OR 06/[address] Guerrero Acute hypoxic respiratory failure Pneumonia Strep pneumo bacteremia Sepsis --CT chest at OSH showed bilateral ground-glass opacities --Required non-rebreather mask at OSH, currently on 3 liters and does not wear home oxygen at baseline --OSH blood cultures positive for strep pneumo, will try and obtain susceptibilities from them --Scheduled and PRN duonebs --Continue Rocephin and flagyl --ID consulted --Wean O2 as tolerated ESRD --On HD MWF --Nephrology consulted Afib --Holding Eliquis for now for CCY --Continue home Amiodarone HTN HLD --Not on any home BP meds --LDL 15 --Continue statin COPD --Scheduled and PRN nebs Expected Discharge Location and Transportation: TBD Expected Discharge Expected Discharge Date: 06/11/2025; Expected Discharge Time: VTE Prophylaxis: Pharmacologic & mechanical VTE prophylaxis orders are present. AM-PAC 6 Clicks Score (PT): 8 (06/08/251999) CODE STATUS: Code Status and Medical Interventions: CPR (Attempt to Resuscitate); Full Ordered at: 06/09/25 1232 Code Status (Patient has no pulse and is not breathing): CPR (Attempt to Resuscitate) Medical Interventions (Patient has pulse or is breathing): Full Level Of Support Discussed With: Patient Ivonne Ralph MD 06/09/25 * Rehan Lincoln MD - 06/09/2025 1:45 PM EDT LOS: 2 days Patient Care Team: Jeffrey Sun MD as PCP - General (Family Medicine) Chief Complaint: 74-year-old with history of ESRD on HD MWF at [facility] last dialyzed yesterday. Patient was transferred from correction due to lethargy, confusion, weakness, initially transferred to [facility]. Subjective Interval History: Patient back from laparoscopic cholecystectomy at this time. Send in the room Review of Systems: No new complaints. Objective Vital Sign Min/Max for last 24 hours Temp Min: 96 ??F (35.6 ??C) Max: 98 ??F (36.7 ??C) BP Min: 86/50 Max: 144/59 Pulse Min: 51 Max: 63 Resp Min: 16 Max: 23 SpO2 Min: 91 % Max: 100 % Flow (L/min) (Oxygen Therapy) Min: 3 Max: 4 No data recorded Flowsheet Rows Flowsheet Row First Filed Value Admission Height 193 cm (76 ) Documented at 06/07/2025 0243 Admission Weight 134 kg (295 lb 6.7 oz) Documented at 06/07/2025 0200 I/O this shift: In: 600 [I.V.:600] Out: - I/O last 3 completed shifts: In: 200 [I.V.:200] Out: 1100 Physical Exam: General Appearance: Awake alert oriented no obvious distress laying comfortable. Eyes: PER, EOMI. Neck: Supple no JVD. Lungs: Clear to auscultation. Equal chest movement, nonlabored. Heart: RRR. Abdomen: Obesity, laparoscopic bandages noted. Extremities no cyanosis. Neuro: No focal deficit, moving all extremities, alert oriented X 3 WBC WBC Date Value Ref Range Status 06/08/2025 10.13 3.40 - 10.80 10*3/mm3 Final 06/07/2025 18.26 (H) 3.40 - 10.80 10*3/mm3 Final HGB Hemoglobin Date Value Ref Range Status 06/08/2025 8.6 (L) 13.0 - 17.7 g/dL Final 06/07/2025 9.0 (L) 13.0 - 17.7 g/dL Final HCT Hematocrit Date Value Ref Range Status 06/08/2025 27.7 (L) 37.5 - 51.0 % Final 06/07/2025 28.1 (L) 37.5 - 51.0 % Final Platlets No results found for: LABPLAT MCV MCV Date Value Ref Range Status 06/08/2025 98.9 (H) 79.0 - 97.0 fL Final 06/07/2025 97.6 (H) 79.0 - 97.0 fL Final Sodium Sodium Date Value Ref Range Status 06/08/2025 137 136 - 145 mmol/L Final 06/07/2025 136 136 - 145 mmol/L Final Potassium Potassium Date Value Ref Range Status 06/08/2025 5.1 3.5 - 5.2 mmol/L Final 06/07/2025 5.0 3.5 - 5.2 mmol/L Final Chloride Chloride Date Value Ref Range Status 06/08/2025 93 (L) 98 - 107 mmol/L Final 06/07/2025 93 (L) 98 - 107 mmol/L Final CO2 CO2 Date Value Ref Range Status 06/08/2025 24.1 22.0 - 29.0 mmol/L Final 06/07/2025 27.9 22.0 - 29.0 mmol/L Final BUN BUN Date Value Ref Range Status 06/08/2025 80.3 (H) 8.0 - 23.0 mg/dL Final 06/07/2025 52.4 (H) 8.0 - 23.0 mg/dL Final Creatinine Creatinine Date Value Ref Range Status 06/08/2025 8.13 (H) 0.76 - 1.27 mg/dL Final 06/07/2025 6.07 (H) 0.76 - 1.27 mg/dL Final Calcium Calcium Date Value Ref Range Status 06/08/2025 8.8 8.6 - 10.5 mg/dL Final 06/07/2025 9.0 8.6 - 10.5 mg/dL Final PO4 No results found for: CAPO4 Albumin Albumin Date Value Ref Range Status 06/08/2025 2.8 (L) 3.5 - 5.2 g/dL Final 06/07/2025 3.0 (L) 3.5 - 5.2 g/dL Final Magnesium Magnesium Date Value Ref Range Status 06/07/2025 1.8 1.6 - 2.4 mg/dL Final Uric Acid No results found for: URICACID Results Review: I reviewed the patient's new clinical results. amiodarone, 200 mg, Oral, BID [Held by provider] apixaban, 2.5 mg, Oral, Q12H aspirin, 81 mg, Oral, Daily Or aspirin, 300 mg, Rectal, Daily atorvastatin, 80 mg, Oral, Nightly cefTRIAXone, 2,000 mg, Intravenous, Q24H guaiFENesin, 600 mg, Oral, Q12H ipratropium-albuterol, 3 mL, Nebulization, 4x Daily - RT metroNIDAZOLE, 500 mg, Intravenous, Q8H pantoprazole, 40 mg, Oral, Daily sodium chloride, 10 mL, Intravenous, Q12H sodium chloride, 10 mL, Intravenous, Q12H [START ON 06/10/2025] lactated ringers, 9 mL/hr lactated ringers, 9 mL/hr Medication Review: Reviewed Assessment & Plan Occipital stroke Choledocholithiasis Acute respiratory failure with hypoxia CAP (community acquired pneumonia) ESRD (end stage renal disease) Atrial fibrillation 1. ESRD: On HD at [facility]. 2. Atrial fibrillation on Eliquis 3. Hypertension 4. Anemia of chronic kidney disease 5. Hyperlipidemia 6. COPD. 7. Ischemic occipital stroke. Plan: Next dialysis on Wednesday. Renal diet Fluid restriction less than 1500 mL/day. Start home medications. High risk complex patient with multiple medical problems. Rehan Lincoln MD 06/09/25 13:45 EDT * Pantera Dc MD - 06/09/2025 7:47 AM EDT Images from the original note were not included. INFECTIOUS DISEASE Progress Note Alexa Fuentes 1950 [id number] Date of Consult: 06/08/2025 Admission Date: 06/06/2025 Requesting Provider: Ivonne Ralph MD Evaluating Physician: Pantera Dc MD Reason for Consultation: Strep pneumoniae bacteremia History of present illness: 06/08/2025: Patient is a 74 y.o. male with h/o COPD, ESRD/HD MWF/RUE AVF not working for about a year/dialysis catheter in place for close to a year, afib/Eliquis, obesity, HTN, HLD, and CVA who we were asked to see for Streptococcus pneumoniae bacteremia. He was transferred from [facility] to [facility] on 06/06 for concerns for stroke along with altered mental status. [facility] was [facility] to be more lethargic and confused and was transferred to [facility]. [facility] CT [facility] showed acute/subacute left occipital lobe ischemia and a CTA of head showed no large vessel occlusion. He was not a candidate for TNK. His labs at OSH were WBC 21,000, creatinine 5.10, AST 485, ALT 482, and bilirubin 1.5. A CT scan of a/p showed distended gallbladder with 5 mm stone, wall thickening, pericholecystic fluid, and mild intrahepatic ductal dilatation suspicious for choledocholel ithiasis. A CT scan of chest showed bilateral GGO. He was started on IV antibiotics and transferredto [facility] on 06/06. Since arrival, the patient has been afebrile. An MRI of the brain on 06/07 show tiny acute infarct in the left occipital lobe and chronic infarcts in bilateral cerebellum and left occipital lobe alongwith pansinus mucosal thickening and bilateral mastoid effusions. An MRCP of abd on 06/07 showed choledocholelithiasis in CBD and cholelithiasis without acute cholecystitis along with LLL consolidation c/w pneumonia. He underwent an ERCP with stone removal and stent placement on 06/[address] Foote. He was evaluated by Dr. Tim for possible cholecystectomy on 06/09. Blood cultures are negative to date. A C.auris PCR is negative. He is currently on Rocephin and Flagyl. ID was asked to evalaute and manage his antibiotic therapy. His blood cultures from [facility] became positive for GPC in pairs in 2 of 2 sets (4 of 4 bottles) with Streptococcus pneumoniae identified by [employer] PCR. (Fax is on chart) 06/09/2025: He remains afebrile. Blood cultures here are no growth so far. I asked Dr. Arboleda review his echocardiogram. He clearly has an abnormal aortic valve and we cannot exclude a vegetation. He underwent cholecystectomy today. Past Medical History: Diagnosis Date COPD (chronic obstructive pulmonary disease) ESRD (end stage renal disease) on dialysis Hyperlipidemia Hypertension Stroke Past Surgical History: Procedure Laterality Date COLONOSCOPY KNEE SURGERY Right Family History Problem Relation Age of Onset Cancer Father Social History Socioeconomic History Marital status: Tobacco Use Smoking status: Never Smokeless tobacco: Never Vaping Use Vaping status: Never Used Substance and Sexual Activity Alcohol use: Never Drug use: Never Sexual activity: Not Currently No Known Allergies Medication: Current Facility-Administered Medications: acetaminophen (TYLENOL) tablet 650 mg, 650 mg, Oral, Q4H PRN, 650 mg at 06/08/25 0330 OR acetaminophen (TYLENOL) 160 MG/5ML oral solution 650 mg, 650 mg, Oral, Q4H PRN OR acetaminophen (TYLENOL) suppository 650 mg, 650 mg, Rectal, Q4H PRN, Kishore Foote MD albumin human 25 % IV SOLN 12.5 g, 12.5 g, Intravenous, PRN, Rehan Lincoln MD, 12.5 g at 06/08/25 1507 amiodarone (PACERONE) tablet 200 mg, 200 mg, Oral, BID, Kishore Foote MD, 200 mg at 06/08/252055 [Held by provider] apixaban (ELIQUIS) tablet 2.5 mg, 2.5 mg, Oral, Q12H, Krystal Herzog MD aspirin chewable tablet 81 mg, 81 mg, Oral, Daily OR aspirin suppository 300 mg, 300 mg, Rectal, Daily, Kishore Foote MD atorvastatin (LIPITOR) tablet 80 mg, 80 mg, Oral, Nightly, Kishore Foote MD, 80 mg at 06/08/252055 sennosides-docusate (PERICOLACE) 8.6-50 MG per tablet 2 tablet, 2 tablet, Oral, BID PRN AND polyethylene glycol (MIRALAX) packet 17 g, 17 g, Oral, Daily PRN AND bisacodyl (DULCOLAX) EC tablet5 mg, 5 mg, Oral, Daily PRN AND bisacodyl (DULCOLAX) suppository 10 mg, 10 mg, Rectal, Daily PRN, Kishore Foote MD Calcium Replacement - Follow Nurse / BPA Driven Protocol, , Not Applicable, PRN, Kishore Foote MD cefTRIAXone (ROCEPHIN) 2,000 mg in sodium chloride 0.9 % 100 mL MBP, 2,000 mg, Intravenous, Q24H, Kishore Foote MD, Last Rate: 200 mL/hr at 06/09/25 0520, 2,000 mg at 06/09/25 05 guaiFENesin (MUCINEX) 12 hr tablet 600 mg, 600 mg, Oral, Q12H, Kishore Foote MD, 600 mg at 06/08/252055 ipratropium-albuterol (DUO-NEB) nebulizer solution 3 mL, 3 mL, Nebulization, 4x Daily - RT, Kishore Foote MD, 3 mL at 06/08/252105 ipratropium-albuterol (DUO-NEB) nebulizer solution 3 mL, 3 mL, Nebulization, Q6H PRN, Kishore Foote MD Magnesium Standard Dose Replacement - Follow Nurse / BPA Driven Protocol, , Not Applicable, PRQamar Shukla John A, MD metroNIDAZOLE (FLAGYL) IVPB 500 mg, 500 mg, Intravenous, Q8H, Kishore Foote MD, Last Rate: 200 mL/hr at 06/09/25 0419, 500 mg at 06/09/25 0419 nitroglycerin (NITROSTAT) SL tablet 0.4 mg, 0.4 mg, Sublingual, Q5 Min PRN, Kishore Foote MD ondansetron (ZOFRAN) injection 4 mg, 4 mg, Intravenous, Q6H PRN, Kishore Foote MD, 4 mg at 06/08/25 1351 pantoprazole (PROTONIX) EC tablet 40 mg, 40 mg, Oral, Daily, Kishore Foote MD, 40 mg at 06/07/25 1839 Phosphorus Replacement - Follow Nurse / BPA Driven Protocol, , Not Applicable, PRN, Kishore Foote MD Potassium Replacement - Follow Nurse / BPA Driven Protocol, , Not Applicable, PRN, Kishore Foote MD sodium chloride 0.9 % flush 10 mL, 10 mL, Intravenous, Q12H, Kishore Foote MD, 10 mL at 06/08/25 2100 sodium chloride 0.9 % flush 10 mL, 10 mL, Intravenous, PRN, Kishore Foote MD sodium chloride 0.9 % flush 10 mL, 10 mL, Intravenous, Q12H, Kishore Foote MD, 10 mL at 06/08/25 2100 sodium chloride 0.9 % flush 10 mL, 10 mL, Intravenous, PRN, Kishore Foote MD sodium chloride 0.9 % infusion 40 mL, 40 mL, Intravenous, PRN, Kishore Foote MD sodium chloride 0.9 % infusion 40 mL, 40 mL, Intravenous, PRNQamar John A, MD Antibiotics: Anti-Infectives (From admission, onward) Ordered Dose/Rate Route Frequency Start Stop 06/07/25 1532 metroNIDAZOLE (FLAGYL) IVPB 500 mg Ordering Provider: Kishore Foote MD 500 mg 200 mL/hr over 30 Minutes Intravenous Every 8 Hours 06/07/25199906/14/25 1159 06/07/25 0437 metroNIDAZOLE (FLAGYL) IVPB 500 mg Status: Discontinued Ordering Provider: Rolan Muro MD 500 mg 200 mL/hr over 30 Minutes Intravenous Every 8 Hours 06/07/25 0600 06/07/25 1532 06/07/25 0437 cefTRIAXone (ROCEPHIN) 2,000 mg in sodium chloride 0.9 % 100 mL MBP Ordering Provider: Kishore Foote MD 2,000 mg 200 mL/hr over 30 Minutes Intravenous Every 24 Hours 06/07/25 0600 06/12/25 0559 Review of Systems: He is confused and cannot provide a reliable review of systems Physical Exam: Vital Signs Temp (24hrs), Av.9 ??F (36.1 ??C), Min:95.9 ??F (35.5 ??C), Max:97.9 ??F (36.6 ??C) Temp Min: 95.9 ??F (35.5 ??C) Max: 97.9 ??F (36.6 ??C) BP Min: 86/50 Max: 140/69 Pulse Min: 50 Max: 68 Resp Min: 16 Max: 18 SpO2 Min: 90 % Max: 100 % GENERAL: Awake and alert, in no acute distress. He is pleasantly confused HEENT: Normocephalic, atraumatic. PERRL. EOMI. No conjunctival injection. No icterus. Oropharynx clear without evidence of thrush or exudate. NECK: Supple. HEART: 3/6 systolic murmur LUNGS:Diminished at left lung base with basilar rales, relatively clear right lung field without wheezing,. Normal respiratory effort. Nonlabored. ABDOMEN: Soft, nontender, nondistended.. No rebound or guarding. NO mass or HSM. Obese. EXT: No cyanosis 1+ edema. No cord. : Without Archibald catheter. MSK: No joint effusions or erythema SKIN: Warm and dry without cutaneous eruptions on Inspection/palpation. NEURO: pleasantly confused Motor 5/5 strength Left CW HD cath dry without erythema Laboratory Data Results from last 7 days Lab Units 06/08/25 0848 06/07/25 0057 WBC 10*3/mm3 10.13 18.26* HEMOGLOBIN g/dL 8.6* 9.0* HEMATOCRIT % 27.7* 28.1* PLATELETS 10*3/mm3 195 120* Results from last 7 days Lab Units 06/08/25 0848 SODIUM mmol/L 137 POTASSIUM mmol/L 5.1 CHLORIDE mmol/L 93* CO2 mmol/L 24.1 BUN mg/dL 80.3* CREATININE mg/dL 8.13* GLUCOSE mg/dL 66 CALCIUM mg/dL 8.8 Results from last 7 days Lab Units 06/08/25 0848 ALK PHOS U/L 111 BILIRUBIN mg/dL 0.6 ALT (SGPT) U/L 982* AST (SGOT) U/L 730* Results from last 7 days Lab Units 06/07/25 0603 LACTATE mmol/L 0.9 Estimated Creatinine Clearance: 11.6 mL/min (A) (by C-G formula based on SCr of 8.13 mg/dL (H)). Microbiology: Microbiology Results (last 10 days) Procedure Component Value - Date/Time MRSA Screen, PCR (Inpatient) - Swab, Nares [[id number]] (Abnormal) Collected: 06/08/25 1905 Lab Status: Final result Specimen: Swab from Nares Updated: 06/08/25 215 MRSA PCR Positive Narrative: The negative predictive value of this diagnostic test is high and should only be used to consider de-escalating anti-MRSA therapy. A positive result may indicate colonization with MRSA and must be correlated clinically. KIMANI AURIS PCR - Swab, Axilla Right, Axilla Left and Groin [[id number]] Collected: 06/07/25 0845 Lab Status: Final result Specimen: Swab from Axilla Right, Axilla Left and Groin Updated: 06/08/25 1715 KIMANI AURIS PCR ([facility]) Not Detected Blood Culture - Blood, Wrist, Left [[id number]] (Normal) Collected: 06/07/25 0603 Lab Status: Preliminary result Specimen: Blood from Wrist, Left Updated: 06/09/25 0730 Blood Culture No growth at 2 days Narrative: Aerobic Bottle Only Less than seven (7) mL's of blood was collected. Insufficient quantity may yield false negative results. Blood Culture - Blood, Wrist, Left [[id number]] (Normal) Collected: 06/07/25 0601 Lab Status: Preliminary result Specimen: Blood from Wrist, Left Updated: 06/09/25 0730 Blood Culture No growth at 2 days Narrative: Aerobic Bottle Only Less than seven (7) mL's of blood was collected. Insufficient quantity may yield false negative results. Radiology: Imaging Results (Last 72 Hours) Procedure Component Value Units Date/Time FL ERCP pancreatic and biliary ducts [[id number]] Collected: 06/08/25 1531 Updated: 06/08/25 1552 Narrative: FL ERCP PANCREATIC AND BILIARY DUCTS Date of Exam: 06/08/2025 10:49 AM EDT Indication: ENDOSCOPIC RETROGRADE CHOLANGIOPANCREATOGRAPHY. Comparison: None available. Technique: A series of radiographic digital spot films were obtained in conjunction with an endoscopic catheterization of the biliary and pancreatic ductal system, performed by the linux network administrator. Fluoroscopic Time: 5 minutes 57 seconds Number of Images: 10 Findings: Fluoroscopy demonstrates filling of the bile ducts. Impression: Impression: Fluoroscopy demonstrates filling of the bile ducts. Please see procedure report for full findings. Electronically Signed: Migue Mcfarlane MD 06/08/2025 3:48 PM EDT Workstation ID: [id number] 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 FEES - Fiberoptic Endo Eval Swallow [[id number]] Resulted: 06/07/25 1659 Updated: 06/07/25 165 Narrative: This procedure was auto-finalized with no dictation required. MRI abdomen wo contrast mrcp [[id number]] Collected: 06/07/25 1008 Updated: 06/07/25 1029 Narrative: MRI ABDOMEN WO CONTRAST MRCP Date of Exam: 06/07/2025 9:28 AM EDT Indication: CBD dilation with choledocholithiasis. Comparison: CT abdomen pelvis 06/06/2025. Technique: Routine multiplanar/multisequence images of the abdomen were obtained with MRCP sequences without contrast administration. Findings: Motion-degraded exam. Left lower lobe consolidation with trace left pleural effusion. Heart appears enlarged. No morphologic changes of chronic liver disease. No evidence of hepatic steatosis. No evidence of focal liver lesion on this noncontrast exam. Cholelithiasis. Mild gallbladder distention without wallthickening or pericholecystic fluid. Intra and extrahepatic biliary ductal dilatation to the level of the ampulla with common bile duct measuring 15 mm. 7 mm ovoid filling defect within the lower common bile duct consistent with choledocholithiasis. No pancreatic ductal dilatation. No findings of acute pancreatitis. Spleen is normal in size. Bilateral renal atrophy. Subcentimeter hemorrhagic/proteinaceous foci along the left kidney may represent a hemorrhagic/proteinaceous cyst, though incompletely characterized on this noncontrast exam.Otherwise there are multiple bilateral renal cysts are overall simple-appearing. No hydronephrosis. No dilated bowel loops within the glicd-uw-imnm. No free fluid in the abdomen. No pathologically enlarged lymph nodes. No abdominal aortic aneurysm. Atherosclerosis. No body wall abnormality. Multilevel spondylosis. No acute or suspicious osseous abnormalities evident on this noncontrast exam. Impression: Impression: Choledocholithiasis with a 7 mm stone in the lower common bile duct. Intra and extrahepatic biliaryductal dilatation with common bile duct measuring 15 mm. Correlate with serum bilirubin and consider ERCP. Cholelithiasis without evidence of acute cholecystitis. Left lower lobe consolidation with trace left pleural effusion, suggestive of pneumonia. Chronic/ancillary findings as above. Electronically Signed: Preet Crowley MD 06/07/2025 10:26 AM EDT Workstation ID: [id number] MRI Brain Without Contrast [[id number]] Collected: 06/07/25 1013 Updated: 06/07/25 1026 Narrative: MRI BRAIN WO CONTRAST Date of Exam: 06/07/2025 9:17 AM EDT Indication: Stroke, follow up Left occipital stroke seen on CT scan. Comparison: Head CT dated 06/06/2025 Technique: Routine multiplanar/multisequence sequence images of the brain were obtained without contrast administration. FINDINGS: There is a tiny focus of DWI hyperintense signal within the left occipital lobe (series 5, image 86), concerning for tiny acute infarct. Questionable additional punctate cortical infarct within the left centrum semiovale (series 5, image 96). Foci of T2/FLAIR signal hyperintensity are seen within the bilateral hemispheric white matter. There is cortical atrophy with prominent sulcation and ventriculomegaly. There is encephalomalacia involving the bilateral cerebellum and left occipital lobe, likely related to remote infarcts. Midline structures appear unremarkable. No significant mass effect, intracranial hemorrhage, or hydrocephalus is identified. The visualized intracranial flow- voids appear unremarkable. There is pansinus mucosal thickening with complete opacification of the left maxillary sinus. Bilateral mastoid effusions are also seen. Bilateral lens prostheses noted. The visualized superficial soft tissues and cervical spine demonstrate no significant abnormality. Impression: 1.Findings concerning for tiny acute infarct within the left occipital lobe (series 5, image 86). Questionable additional punctate cortical acute/subacute infarct within the left centrum semiovale (series 5, image 96). 2.Additional findings compatible with chronic microvascular ischemic change and diffuse cortical atrophy. 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 3.Pansinus mucosal thickening and bilateral mastoid effusions. Electronically Signed: Vimal Lares MD 06/07/2025 10:22 AM EDT Workstation ID: [id number] CT Outside Films [[id number]] Resulted: 06/06/252046 Updated: 06/06/252046 Narrative: This procedure was auto-finalized with no dictation required. CT Outside Abd/Pelvis [[id number]] Resulted: 06/06/252046 Updated: 06/06/252046 Narrative: This procedure was auto-finalized with no dictation required. CT Outside Head [[id number]] Resulted: 06/06/252046 Updated: 06/06/252046 Narrative: This procedure was auto-finalized with no dictation required. CT Outside Films [[id number]] Resulted: 06/06/252046 Updated: 06/06/252046 Narrative: This procedure was auto-finalized with no dictation required. CT Outside Neck [[id number]] Resulted: 06/06/252046 Updated: 06/06/252046 Narrative: This procedure was auto-finalized with no dictation required. I read his radiographic images. Impression: Acute choledocholelithiasis- s/p ERCP 06/08 with stone extraction and stent placement. S/P cholecystectomy 06/09 Streptococcus pneumoniae bacteremia at OSH-secondary to left lower lobe pneumonia. He also has significant valvular heart disease and would be at risk for pneumococcal endocarditis. LLL pneumococcal pneumonia Acute left occipital lobe cerebral vascular accident Moderate aortic stenosis per TTE. At risk for pneumococcal endocarditis. Consider JARED. Severe sepsis- manifested by leukocytosis, acute respiratory failure, transaminitis, hyperbilirubinemia, and encephalopathy secondary to Strep pneumo bacteremia, pneumonia, and choledocholelithiasis/cholangitis. Valvular heart disease-with moderate aortic stenosis Encephalopathy, toxic/metabolic, improving Acute hypoxic respiratory failure/on 3L O2. Leukocytosis/neutrophilia Anemia of chronic disease Choledocholithiasis End stage renal disease/Hemodialysis MWF/dialysis catheter in place for almost a year/RUE AVF not working for about a year. Atrial fibrillation/Eliquis on hold Chronic obstructive pulmonary disease Essential hypertension/dyslipidemia PLAN/RECOMMENDATIONS: Follow blood cultures here and at [facility] Continue Rocephin 2 GM IV daily Stop Flagyl Please call [facility] laboratory to have then fax final blood cultures results when done. JARED to evaluate for endocarditis Since he had multiple positive blood cultures for pneumococcus in the setting of valvular heart disease and stroke, we should evaluate for endocarditis with a JARED. I discussed his complex situation in detail with the patient's son today. I reviewed his TTE with Dr. Jefferson today This visit included the following complex service elements: Complex medical decision-making associated with antimicrobial prescribing. In-depth chart review with high level synthesis for complex diagnoses. Managed infection treatment protocol associated with transitions of care for this complex patient. Counseled patients, family members, and/or caregivers regarding antimicrobial stewardship and antibiotic resistance. Pantera Dc MD 06/09/2025 07:47 EDT * Alyssa Ring, RD - 06/08/2025 4:00 PM EDT Patient Name: Alexa Fuentes Date of : 1950 Admission date: 06/06/2025 Reason for Encounter: Pressure Injury Stg 2+ [facility] Clinical Nutrition Assessment Subjective Subjective Information Pt admitted for altered mental status from occipital stroke. Pt noted to have healing stage 4 PI tococcyx. Pt denies any recent weight changes or changes in appetite. Pt reports no changes in oral intakes, but pt with improving metabolic encephalopathy and suspect oral intakes were not adequate during his more confused state. Pt does not want an ONS to help with wound healing at this time. Encouraged pt to have good oral intakes at meal times, especially of protein foods, to aid in wound healing. Objective H&P and Current Problems H&P Past Medical History: Diagnosis Date COPD (chronic obstructive pulmonary disease) ESRD (end stage renal disease) on dialysis Hyperlipidemia Hypertension Stroke Past Surgical History: Procedure Laterality Date COLONOSCOPY KNEE SURGERY Right Current Problems Admission Diagnosis: Occipital stroke [I63.9] Problem List: Occipital stroke Choledocholithiasis Acute respiratory failure with hypoxia CAP (community acquired pneumonia) ESRD (end stage renal disease) Atrial fibrillation Applicable Nutrition Hx 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 Recommendation (06/07) regular textures, thin liquids Anthropometrics Height: 193 cm (75.98 ) Weight: 134 kg (295 lb 6.7 oz) (06/07/25 1544) Weight Method: Bed scale BMI (Calculated): 36 Trending Weight Changes 06/08/25: No significant changes Weight History Weight Weight (kg) Weight (lbs) Weight Method 06/07/2025 134 kg 295 lb 6.7 oz Bed scale 134 kg 295 lb 6.7 oz Weight Hx from chart review: 07/2024: 241 lb Labs Comment: Results from last 7 days Lab Units 06/08/25 0848 06/07/25 0603 06/07/25 0057 SODIUM mmol/L 137 -- 136 POTASSIUM mmol/L 5.1 -- 5.0 GLUCOSE mg/dL 66 -- 77 BUN mg/dL 80.3* -- 52.4* CREATININE mg/dL 8.13* -- 6.07* CALCIUM mg/dL 8.8 -- 9.0 MAGNESIUM mg/dL -- -- 1.8 ALBUMIN g/dL 2.8* -- 3.0* LACTATE mmol/L -- 0.9 -- BILIRUBIN mg/dL 0.6 -- 0.9 ALK PHOS U/L 111 -- 102 AST (SGOT) U/L 730* -- 558* ALT (SGPT) U/L 982* -- 652* TRIGLYCERIDES mg/dL -- -- 58 Results from last 7 days Lab Units 06/08/25 0848 06/07/25 0057 PLATELETS 10*3/mm3 195 120* HEMOGLOBIN g/dL 8.6* 9.0* HEMATOCRIT % 27.7* 28.1* Lab Results Component Value Date HGBA1C 5.4 11/28/2023 Medications Scheduled Medications alteplase (CATHFLO/ACTIVASE) injection 2 mg, 2 mg, Intracatheter, Once alteplase (CATHFLO/ACTIVASE) injection 2 mg, 2 mg, Intracatheter, Once amiodarone, 200 mg, Oral, BID [Held by provider] apixaban, 2.5 mg, Oral, Q12H aspirin, 81 mg, Oral, Daily Or aspirin, 300 mg, Rectal, Daily atorvastatin, 80 mg, Oral, Nightly cefTRIAXone, 2,000 mg, Intravenous, Q24H guaiFENesin, 600 mg, Oral, Q12H ipratropium-albuterol, 3 mL, Nebulization, 4x Daily - RT metroNIDAZOLE, 500 mg, Intravenous, Q8H pantoprazole, 40 mg, Oral, Daily sodium chloride, 10 mL, Intravenous, Q12H sodium chloride, 10 mL, Intravenous, Q12H Infusions PRN Medications acetaminophen OR acetaminophen OR acetaminophen albumin human senna-docusate sodium AND polyethylene glycol AND bisacodyl AND bisacodyl Calcium Replacement - Follow Nurse / BPA Driven Protocol ipratropium-albuterol Magnesium Standard Dose Replacement - Follow Nurse / BPA Driven Protocol nitroglycerin ondansetron Phosphorus Replacement - Follow Nurse / BPA Driven Protocol Potassium Replacement - Follow Nurse / BPA Driven Protocol sodium chloride sodium chloride sodium chloride sodium chloride Physical Findings Chewing/Swallowing No issues identified at this time Dentition Mouth/Teeth WDL: .WDL except, teeth Teeth Symptoms: tooth/teeth missing Skin Wound 06/06/251957 medial coccyx Pressure Injury-Pressure Injury Stage: Stage 4 (06/06/252030) Bowel function Last Bowel Movement: 06/07/25 (06/07/25 1226) Stool Consistency: loose (06/07/251999) Edema Edema: generalized (06/07/251999) Generalized Edema: 1+ (Trace) (06/07/251999) Intake & Output (last 3 days) 06/05 0706/06 0706/08 0706/08 0706/09 07 P.O. 30 I.V. (mL/kg) 200 (1.5) Total Intake(mL/kg) 30 (0.2) 200 (1.5) Net +30 +200 Urine Unmeasured Occurrence 1 x Stool Unmeasured Occurrence 1 x 4 x Nutrition Focused Physical Exam 06/08/25: NFPE completed and not consistent with nutrition diagnosis of malnutrition at this time using AND/ASPEN criteria. 1 Current Nutrition Orders & Evaluation of Intake Oral Nutrition Food Allergies/Intolerances NKFA Current PO Diet Diet: Liquid; Full Liquid; Fluid Consistency: Thin (IDDSI 0) NPO Diet NPO Type: Sips with Meds Oral Nutrition Supplement None Trending % PO Intake 06/08/25: Insuff data 2 Assessment & Plan Nutrition Diagnosis and Goals Nutrition Diagnosis 1 Increased Nutrient Needs (Protein) related to wound healing as evidenced by healing Stage 4 PI to coccyx Nutrition Diagnosis 2 None Goal(s) Establish PO Intake and PO Diet Advances When Medically Appropriate Nutrition Intervention and Prescription Intervention Oral nutrition supplement offered but declined by patient, Provide patient with menu, Advised alternate menu selections, Provide Education, Continue to monitor for plan of care, and Continue with current interventions Diet Prescription Full Liquid Supplement Prescription N/A Education Provided Importance of protein for wound healing 3 Monitoring/Evaluation Monitor/Evaluation Per Protocol, I&O, PO Intake, Pertinent Labs, Skin Status, Symptoms, and POC/GOC RD Follow-Up Encounter 3-5 days and prn Associated attestation - Tia Pugh RD - 06/08/2025 4:38 PM EDT I have reviewed this documentation and agree. * Ivonne Ralph MD - 06/08/2025 11:21 AM EDT Images from the original note were not included. [facility] PROGRESS NOTE Patient Name: Alexa Fuentes : 1950 Date of Admission: 06/06/2025 Primary Care Physician: Jeffrey Sun MD Subjective Subjective CC: F/U AMS HPI: Pt feeling overall better this AM, just sore from laying on his side. Denies abd pain or nausea. Objective Objective Vital Signs: Temp: [97.1 ??F (36.2 ??C)-97.9 ??F (36.6 ??C)] 97.1 ??F (36.2 ??C) Heart Rate: [51-59] 51 Resp: [16-19] 16 BP: (113-134)/(51-64) 134/64 Flow (L/min) (Oxygen Therapy): [3] 3 Physical Exam Constitutional: General: He is not in acute distress. Cardiovascular: Rate and Rhythm: Normal rate and regular rhythm. Heart sounds: Normal heart sounds. Pulmonary: Effort: Pulmonary effort is normal. Breath sounds: Normal breath sounds. Abdominal: General: There is no distension. Palpations: Abdomen is soft. Tenderness: There is no abdominal tenderness. Musculoskeletal: Right lower leg: No edema. Left lower leg: No edema. Neurological: General: No focal deficit present. Mental Status: He is alert. Mental status is at baseline. Psychiatric: Mood and Affect: Mood normal. Thought Content: Thought content normal. Results Reviewed: LAB RESULTS: Lab 06/08/25 0848 06/07/25 0603 06/07/2556 WBC 10.13 -- 18.26* HEMOGLOBIN 8.6* -- 9.0* HEMATOCRIT 27.7* -- 28.1* PLATELETS 195 -- 120* NEUTROS ABS -- -- 15.45* IMMATURE GRANS (ABS) -- -- 0.90* LYMPHS ABS -- -- 0.52* MONOS ABS -- -- 1.37* EOS ABS -- -- 0.00 MCV 98.9* -- 97.6* LACTATE -- 0.9 -- Lab 06/07/25 005 SODIUM 136 POTASSIUM 5.0 CHLORIDE 93* CO2 27.9 ANION GAP 15.1* BUN 52.4* CREATININE 6.07* EGFR 9.0* GLUCOSE 77 CALCIUM 9.0 MAGNESIUM 1.8 TSH 0.534 Lab 06/07/2556 TOTAL PROTEIN 6.1 ALBUMIN 3.0* GLOBULIN 3.1 ALT (SGPT) 652* AST (SGOT) 558* BILIRUBIN 0.9 ALK PHOS 102 Lab 06/07/25 005 CHOLESTEROL 62 LDL CHOL 15 HDL CHOL 33* TRIGLYCERIDES 58 Brief Urine Lab Results None Microbiology Results Abnormal None Duplex Carotid Ultrasound CAR Result Date: 06/07/2025 Right internal carotid artery demonstrates a less than 50% stenosis. Right vertebral artery was notvisualized. Left internal carotid artery demonstrates a less than 50% stenosis. Antegrade left vertebral flow. 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 FEES - Fiberoptic Endo Eval Swallow Result Date: 06/07/2025 This procedure was auto-finalized with no dictation required. MRI abdomen wo contrast mrcp Result Date: 06/07/2025 MRI ABDOMEN WO CONTRAST MRCP Date of Exam: 06/07/2025 9:28 AM EDT Indication: CBD dilation with choledocholithiasis. Comparison: CT abdomen pelvis 06/06/2025. Technique: Routine multiplanar/multisequence images of the abdomen were obtained with MRCP sequences without contrast administration. Findings: Motion-degraded exam. Left lower lobe consolidation with trace left pleural effusion. Heart appears enlarged. No morphologic changes of chronic liver disease. No evidence of hepatic steatosis. No evidence of focal liver lesion on this noncontrast exam. Cholelithiasis. Mild gallbladder distention without wall thickening or pericholecystic fluid. Intra and extrahepatic biliary ductal dilatation tothe level of the ampulla with common bile duct measuring 15 mm. 7 mm ovoid filling defect within the lower common bile duct consistent with choledocholithiasis. No pancreatic ductal dilatation. No findings of acute pancreatitis. Spleen is normal in size. Bilateral renal atrophy. Subcentimeter hemorrhagic/proteinaceous foci along the left kidney may represent a hemorrhagic/proteinaceous cyst, though incompletely characterized on this noncontrast exam. Otherwise there are multiple bilateral renalcysts are overall simple-appearing. No hydronephrosis. No dilated bowel loops within the hrtho-re-sfdh. No free fluid in the abdomen. No pathologically enlarged lymph nodes. No abdominal aortic aneurysm. Atherosclerosis. No body wall abnormality. Multilevel spondylosis. No acute or suspicious osseous abnormalities evident on this noncontrast exam. Impression: Impression: Choledocholithiasis with a 7 mm stone in the lower common bile duct. Intra and extrahepatic biliary ductal dilatation with common bile duct measuring 15 mm. Correlate with serum bilirubin and consider ERCP. Cholelithiasis without evidence of acute cholecystitis. Left lower lobe consolidation with trace left pleural effusion, suggestive of pneumonia. Chronic/ancillary findings as above. Electronically Signed: Preet Crowley MD 06/07/2025 10:26 AM EDT Workstation ID: [id number] MRI Brain Without Contrast Result Date: 06/07/2025 MRI BRAIN WO CONTRAST Date of Exam: 06/07/2025 9:17 AM EDT Indication: Stroke, follow up Left occipital stroke seen on CT scan. Comparison: Head CT dated 06/06/2025 Technique: Routine multiplanar/multisequence sequence images of the brain were obtained without contrast administration. FINDINGS: Thereis a tiny focus of DWI hyperintense signal within the left occipital lobe (series 5, image 86), concerning for tiny acute infarct. Questionable additional punctate cortical infarct within the left centrum semiovale (series 5, image 96). Foci of T2/FLAIR signal hyperintensity are seen within the bilateral hemispheric white matter. There is cortical atrophy with prominent sulcation and ventriculomegaly. There is encephalomalacia involving the bilateral cerebellum and left occipital lobe, likely related to remote infarcts. Midline structures appear unremarkable. No significant mass effect, intracranial hemorrhage, or hydrocephalus is identified. The visualized intracranial flow-voids appear unr emarkable. There is pansinus mucosal thickening with complete opacification of the left maxillary sinus. Bilateral mastoid effusions are also seen. Bilateral lens prostheses noted. The visualized superficial soft tissues and cervical spine demonstrate no significant abnormality. Impression: 1.Findings concerning for tiny acute infarct within the left occipital lobe (series 5, image 86). Questionable additional punctate cortical acute/subacute infarct within the left centrum semiovale (series 5, image 96). 2.Additional findings compatible with chronic microvascular ischemicchange and diffuse cortical atrophy. 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 3.Pansinus mucosal thickening and bilateral mastoid effusions. Electronically Signed:Vimal Lares MD 06/07/2025 10:22 AM EDT Workstation ID: [id number] CT Outside Films Result Date: 06/06/2025 This procedure was auto-finalized with no dictation required. CT Outside Abd/Pelvis Result Date: 06/06/2025 This procedure was auto-finalized with no dictation required. CT Outside Head Result Date: 06/06/2025 This procedure was auto-finalized with no dictation required. CT Outside Films Result Date: 06/06/2025 This procedure was auto-finalized with no dictation required. CT Outside Neck Result Date: 06/06/2025 This procedure was auto-finalized with no dictation required. Results for orders placed during the hospital encounter of 06/06/25 Adult Transthoracic Echo Complete W/ Cont if Necessary Per Protocol (With Agitated Saline) 06/07/2025 4:41 PM Interpretation Summary Left ventricular systolic function is normal. Calculated left ventricular EF = 53.5% Left ventricular ejection fraction appears to be 51 - 55%. Normal left ventricular cavity size noted. Left ventricular wall thickness is consistent with mild concentric hypertrophy. Left ventricular diastolic function is consistent with (grade II w/high LAP) pseudonormalization. Left atrial volume is mildly increased. Saline test results are negative. There is mild calcification of the aortic valve. Mild aortic valve regurgitation is present. Moderate aortic valve stenosis is present. Aortic valve area is 1.39 cm2. Peak velocity of the flow distalto the aortic valve is 308.8 cm/s. Aortic valve mean pressure gradient is 21.0 mmHg. Mild mitral annular calcification is present. Mild mitral valve regurgitation is present. No significant mitral valve stenosis is present. The mitral valve mean gradient is 4.0 mmHg. . Trace tricuspid valve regurgitation is present. Estimated right ventricular systolic pressure from tricuspid regurgitation is normal (<35 mmHg). Aortic root = 4.4 cm which is within normal limits when indexed to body surface area. I have personally reviewed the therapy plans: [] PT/OT/ ST Therapy Plans Current medications: Scheduled Meds:amiodarone, 200 mg, Oral, BID [Held by provider] apixaban, 2.5 mg, Oral, Q12H aspirin, 81 mg, Oral, Daily Or aspirin, 300 mg, Rectal, Daily atorvastatin, 80 mg, Oral, Nightly cefTRIAXone, 2,000 mg, Intravenous, Q24H guaiFENesin, 600 mg, Oral, Q12H ipratropium-albuterol, 3 mL, Nebulization, 4x Daily - RT metroNIDAZOLE, 500 mg, Intravenous, Q8H pantoprazole, 40 mg, Oral, Daily sodium chloride, 10 mL, Intravenous, Q12H sodium chloride, 10 mL, Intravenous, Q12H Continuous Infusions: PRN Meds:. acetaminophen OR acetaminophen OR acetaminophen senna-docusate sodium AND polyethylene glycol AND bisacodyl AND bisacodyl Calcium Replacement - Follow Nurse / BPA Driven Protocol ipratropium-albuterol Magnesium Standard Dose Replacement - Follow Nurse / BPA Driven Protocol nitroglycerin ondansetron Phosphorus Replacement - Follow Nurse / BPA Driven Protocol Potassium Replacement - Follow Nurse / BPA Driven Protocol sodium chloride sodium chloride sodium chloride sodium chloride Assessment & Plan Assessment & Plan Active Hospital Problems Diagnosis POA Occipital stroke [I63.9] Yes Choledocholithiasis [K80.50] Yes Acute respiratory failure with hypoxia [J96.01] Yes CAP (community acquired pneumonia) [J18.9] Yes ESRD (end stage renal disease) [N18.6] Yes Atrial fibrillation [I48.91] Yes Resolved Hospital Problems No resolved problems to display. Brief Hospital Course to date: Alexa Fuentes is a 74 y.o. male with hx of HTN, HLD, COPD, Afib on Eliquis, and ESRD on HD who presents from [facility] due to AMS and concern for stroke. In addition he was found to have pneumonia and possible choledocholithiasis. Stroke team accepted in transfer to [facility]. Acute encephalopathy- improving --Likely multifactorial due to pneumonia, hypoxia, stroke --Appears to be improving today Acute CVA, left occipital lobe --CT head at OSH revealed acute/subacute left occipital lobe ischemia, CTA showed no large vessel occlusion. Given that he is on Eliquis, with the last dose taken that morning, he was not a candidatefor TNK. --MRI brain here confirms tiny acute infarct within the left occipital lobe. Questionable additional punctate cortical acute/subacute infarct within the left centrum semiovale. --Bilateral carotid duplex showing less than 50% stenosis bilaterally --Echo with EF 53% and grade II diastolic dysfunction, negative saline test, --Stroke Neurology following, okay to continue Eliquis 2.5 mg BID (holding for ERCP), adding ASA 81mg; continue atorvastatin 80 mg nightly --PT/OT/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 evaluations Choledocholithiasis --CT A/P at OSH showed a distended gallbladder with a 5 mm stone, wall thickening, surrounding pericholecystic fluid, and mild intrahepatic ductal dilation, highly suspicious for choledocholithiasis.These findings were consistent with prior studies, including MRI. --MRCP 06/07/25: 7 mm stone in lower common bile duct, cholelithiasis without cholecystitis --Patient reports he was told a long time ago about this issue and he tried to get them to do something about it but no one did --Continue Rocephin, Flagyl --GI consulted -- ERCP today Acute hypoxic respiratory failure Pneumonia --CT chest at OSH showed bilateral ground-glass opacities --Required non-rebreather mask at OSH, currently on 3 liters and does not wear home oxygen at baseline --Reportedly COVID negative at OSH, RN working to confirm this - will repeat respiratory PCR panel here if unable to confirm --Scheduled and PRN duonebs --Continue Rocephin --WBC improved today --Wean O2 as tolerated ESRD --On HD MWF --Nephrology consulted Afib --Holding Eliquis for now for ERCP --Continue home Amiodarone HTN HLD --Not on any home BP meds --LDL 15 --Continue statin COPD --Scheduled and PRN nebs Addendum: Discussed case with Dr. Foote post ERCP. Pt has stent in place and will be evaluated by general surgery for possible ccy. Will continue holding eliquis for now. NPO midnight pending surgical plan. Outside hospital blood cultures returned positive for strep pneumo. No susceptibilities at this time. Will ask ID to consult. Records in paper chart on the floor. Expected Discharge Location and Transportation: TBD Expected Discharge Expected Discharge Date: 06/11/2025; Expected Discharge Time: VTE Prophylaxis: Pharmacologic & mechanical VTE prophylaxis orders are present. AM-PAC 6 Clicks Score (PT): 8 (06/08/25 0830) CODE STATUS: Code Status and Medical Interventions: No CPR (Do Not Attempt to Resuscitate); Limited Support; No intubation (DNI) Ordered at: 06/07/25 1137 Code Status (Patient has no pulse and is not breathing): No CPR (Do Not Attempt to Resuscitate) Medical Interventions (Patient has pulse or is breathing): Limited Support Medical Intervention Limits: No intubation (DNI) Level Of Support Discussed With: Patient Next of Kin (If No Surrogate) Ivonne Ralph MD 06/08/25 * Rehan Lincoln MD - 06/08/2025 10:43 AM EDT LOS: 1 day Patient Care Team: Jeffrey Sun MD as PCP - General (Family Medicine) Chief Complaint: 74-year-old with history of ESRD on HD MWF at [facility] last dialyzed yesterday. Patient was transferred from correction due to lethargy, confusion, weakness, initially transferred to [facility]. Subjective Interval History: Patient seen on dialysis. Review of Systems: Complains of nausea post endoscopy Objective Vital Sign Min/Max for last 24 hours Temp Min: 97.1 ??F (36.2 ??C) Max: 97.9 ??F (36.6 ??C) BP Min: 113/62 Max: 134/64 Pulse Min: 51 Max: 59 Resp Min: 16 Max: 19 SpO2 Min: 92 % Max: 98 % Flow (L/min) (Oxygen Therapy) Min: 3 Max: 3 Weight Min: 134 kg (295 lb 6.7 oz) Max: 134 kg (295 lb 6.7 oz) Flowsheet Rows Flowsheet Row First Filed Value Admission Height 193 cm (76 ) Documented at 06/07/2025 0243 Admission Weight 134 kg (295 lb 6.7 oz) Documented at 06/07/2025 0200 No intake/output data recorded. I/O last 3 completed shifts: In: 30 [P.O.:30] Out: - Physical Exam: General Appearance: Alert, oriented, mild distress Eyes: PER, EOMI. Neck: Supple no JVD. Lungs: equal chest movement, nonlabored. Heart: RRR. Abdomen: Obesity Extremities no cyanosis. Neuro: No focal deficit, moving all extremities, alert oriented X 3 WBC WBC Date Value Ref Range Status 06/08/2025 10.13 3.40 - 10.80 10*3/mm3 Final 06/07/2025 18.26 (H) 3.40 - 10.80 10*3/mm3 Final HGB Hemoglobin Date Value Ref Range Status 06/08/2025 8.6 (L) 13.0 - 17.7 g/dL Final 06/07/2025 9.0 (L) 13.0 - 17.7 g/dL Final HCT Hematocrit Date Value Ref Range Status 06/08/2025 27.7 (L) 37.5 - 51.0 % Final 06/07/2025 28.1 (L) 37.5 - 51.0 % Final Platlets No results found for: LABPLAT MCV MCV Date Value Ref Range Status 06/08/2025 98.9 (H) 79.0 - 97.0 fL Final 06/07/2025 97.6 (H) 79.0 - 97.0 fL Final Sodium Sodium Date Value Ref Range Status 06/07/2025 136 136 - 145 mmol/L Final Potassium Potassium Date Value Ref Range Status 06/07/2025 5.0 3.5 - 5.2 mmol/L Final Chloride Chloride Date Value Ref Range Status 06/07/2025 93 (L) 98 - 107 mmol/L Final CO2 CO2 Date Value Ref Range Status 06/07/2025 27.9 22.0 - 29.0 mmol/L Final BUN BUN Date Value Ref Range Status 06/07/2025 52.4 (H) 8.0 - 23.0 mg/dL Final Creatinine Creatinine Date Value Ref Range Status 06/07/2025 6.07 (H) 0.76 - 1.27 mg/dL Final Calcium Calcium Date Value Ref Range Status 06/07/2025 9.0 8.6 - 10.5 mg/dL Final PO4 No results found for: CAPO4 Albumin Albumin Date Value Ref Range Status 06/07/2025 3.0 (L) 3.5 - 5.2 g/dL Final Magnesium Magnesium Date Value Ref Range Status 06/07/2025 1.8 1.6 - 2.4 mg/dL Final Uric Acid No results found for: URICACID Results Review: I reviewed the patient's new clinical results. amiodarone, 200 mg, Oral, BID [Held by provider] apixaban, 2.5 mg, Oral, Q12H aspirin, 81 mg, Oral, Daily Or aspirin, 300 mg, Rectal, Daily atorvastatin, 80 mg, Oral, Nightly cefTRIAXone, 2,000 mg, Intravenous, Q24H guaiFENesin, 600 mg, Oral, Q12H ipratropium-albuterol, 3 mL, Nebulization, 4x Daily - RT metroNIDAZOLE, 500 mg, Intravenous, Q8H pantoprazole, 40 mg, Oral, Daily sodium chloride, 10 mL, Intravenous, Q12H sodium chloride, 10 mL, Intravenous, Q12H Medication Review: Reviewed Assessment & Plan Occipital stroke Choledocholithiasis Acute respiratory failure with hypoxia CAP (community acquired pneumonia) ESRD (end stage renal disease) Atrial fibrillation 1. ESRD: On HD at [facility]. 2. Atrial fibrillation on Eliquis 3. Hypertension 4. Anemia of chronic kidney disease 5. Hyperlipidemia 6. COPD. 7. Ischemic occipital stroke. Plan: There is no indication for dialysis post IV contrast, it does not help, it is also nephrology boardquestion, the answer on board exam is no dialysis. Dialysis in progress Renal diet Fluid restriction less than 1500 mL/day. Start home medications. High risk complex patient with multiple medical problems. Rehan Lincoln MD 06/08/25 10:43 EDT * Krystal Herzog MD - 06/07/2025 12:15 PM EDT Images from the original note were not included. [facility] PROGRESS NOTE Patient Name: Alexa Fuentes : 1950 Date of Admission: 06/06/2025 Primary Care Physician: Jeffrey Sun MD Subjective Subjective CC: F/U AMS HPI: Seen this morning. Back from MRI. Complains of cough but not being able to break it loose. Objective Objective Vital Signs: Temp: [97.1 ??F (36.2 ??C)-98 ??F (36.7 ??C)] 97.1 ??F (36.2 ??C) Heart Rate: [54-65] 55 Resp: [16-18] 18 BP: (112-132)/(46-54) 121/46 Flow (L/min) (Oxygen Therapy): [3] 3 Physical Exam: Gen-no acute distress, chronically ill appearing HENT-NCAT, mucous membranes moist CV-RRR, S1 S2 normal, no m/r/g Resp-diminished breath sounds bilaterally, no wheezes or rales Abd-soft, NT, ND, +BS Ext-no edema Neuro-awake and alert, moves all extremities, speech intact Skin-no rashes Psych-appropriate mood Results Reviewed: LAB RESULTS: Lab 06/07/25 0603 06/07/2556 WBC -- 18.26* HEMOGLOBIN -- 9.0* HEMATOCRIT -- 28.1* PLATELETS -- 120* NEUTROS ABS -- 15.45* IMMATURE GRANS (ABS) -- 0.90* LYMPHS ABS -- 0.52* MONOS ABS -- 1.37* EOS ABS -- 0.00 MCV -- 97.6* LACTATE 0.9 -- Lab 06/07/2556 SODIUM 136 POTASSIUM 5.0 CHLORIDE 93* CO2 27.9 ANION GAP 15.1* BUN 52.4* CREATININE 6.07* EGFR 9.0* GLUCOSE 77 CALCIUM 9.0 MAGNESIUM 1.8 TSH 0.534 Lab 06/07/25 005 TOTAL PROTEIN 6.1 ALBUMIN 3.0* GLOBULIN 3.1 ALT (SGPT) 652* AST (SGOT) 558* BILIRUBIN 0.9 ALK PHOS 102 Lab 06/07/25 005 CHOLESTEROL 62 LDL CHOL 15 HDL CHOL 33* TRIGLYCERIDES 58 Brief Urine Lab Results None Microbiology Results Abnormal None MRI abdomen wo contrast mrcp Result Date: 06/07/2025 MRI ABDOMEN WO CONTRAST MRCP Date of Exam: 06/07/2025 9:28 AM EDT Indication: CBD dilation with choledocholithiasis. Comparison: CT abdomen pelvis 06/06/2025. Technique: Routine multiplanar/multisequence images of the abdomen were obtained with MRCP sequences without contrast administration. Findings: Motion-degraded exam. Left lower lobe consolidation with trace left pleural effusion. Heart appears enlarged. No morphologic changes of chronic liver disease. No evidence of hepatic steatosis. No evidence of focal liver lesion on this noncontrast exam. Cholelithiasis. Mild gallbladder distention without wall thickening or pericholecystic fluid. Intra and extrahepatic biliary ductal dilatation tothe level of the ampulla with common bile duct measuring 15 mm. 7 mm ovoid filling defect within the lower common bile duct consistent with choledocholithiasis. No pancreatic ductal dilatation. No findings of acute pancreatitis. Spleen is normal in size. Bilateral renal atrophy. Subcentimeter hemorrhagic/proteinaceous foci along the left kidney may represent a hemorrhagic/proteinaceous cyst, though incompletely characterized on this noncontrast exam. Otherwise there are multiple bilateral renalcysts are overall simple-appearing. No hydronephrosis. No dilated bowel loops within the [id number]. No free fluid in the abdomen. No pathologically enlarged lymph nodes. No abdominal aortic aneurysm. Atherosclerosis. No body wall abnormality. Multilevel spondylosis. No acute or suspicious osseous abnormalities evident on this noncontrast exam. Impression: Impression: Choledocholithiasis with a 7 mm stone in the lower common bile duct. Intra and extrahepatic biliary ductal dilatation with common bile duct measuring 15 mm. Correlate with serum bilirubin and consider ERCP. Cholelithiasis without evidence of acute cholecystitis. Left lower lobe consolidation with trace left pleural effusion, suggestive of pneumonia. Chronic/ancillary findings as above. Electronically Signed: Preet Crowley MD 06/07/2025 10:26 AM EDT Workstation ID: [id number] MRI Brain Without Contrast Result Date: 06/07/2025 MRI BRAIN WO CONTRAST Date of Exam: 06/07/2025 9:17 AM EDT Indication: Stroke, follow up Left occipital stroke seen on CT scan. Comparison: Head CT dated 06/06/2025 Technique: Routine multiplanar/multisequence sequence images of the brain were obtained without contrast administration. FINDINGS: Thereis a tiny focus of DWI hyperintense signal within the left occipital lobe (series 5, image 86), concerning for tiny acute infarct. Questionable additional punctate cortical infarct within the left centrum semiovale (series 5, image 96). Foci of T2/FLAIR signal hyperintensity are seen within the bilateral hemispheric white matter. There is cortical atrophy with prominent sulcation and ventriculomegaly. There is encephalomalacia involving the bilateral cerebellum and left occipital lobe, likely related to remote infarcts. Midline structures appear unremarkable. No significant mass effect, intracranial hemorrhage, or hydrocephalus is identified. The visualized intracranial flow-voids appear unr emarkable. There is pansinus mucosal thickening with complete opacification of the left maxillary sinus. Bilateral mastoid effusions are also seen. Bilateral lens prostheses noted. The visualized superficial soft tissues and cervical spine demonstrate no significant abnormality. Impression: 1.Findings concerning for tiny acute infarct within the left occipital lobe (series 5, image 86). Questionable additional punctate cortical acute/subacute infarct within the left centrum semiovale (series 5, image 96). 2.Additional findings compatible with chronic microvascular ischemicchange and diffuse cortical atrophy. 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 3.Pansinus mucosal thickening and bilateral mastoid effusions. Electronically Signed:Vimal Lares MD 06/07/2025 10:22 AM EDT Workstation ID: [id number] CT Outside Films Result Date: 06/06/2025 This procedure was auto-finalized with no dictation required. CT Outside Abd/Pelvis Result Date: 06/06/2025 This procedure was auto-finalized with no dictation required. CT Outside Head Result Date: 06/06/2025 This procedure was auto-finalized with no dictation required. CT Outside Films Result Date: 06/06/2025 This procedure was auto-finalized with no dictation required. CT Outside Neck Result Date: 06/06/2025 This procedure was auto-finalized with no dictation required. I have personally reviewed the therapy plans: [] PT/OT/ ST Therapy Plans Current medications: Scheduled Meds:amiodarone, 200 mg, Oral, BID [Held by provider] apixaban, 2.5 mg, Oral, Q12H aspirin, 81 mg, Oral, Daily Or aspirin, 300 mg, Rectal, Daily atorvastatin, 80 mg, Oral, Nightly cefTRIAXone, 2,000 mg, Intravenous, Q24H ipratropium-albuterol, 3 mL, Nebulization, 4x Daily - RT pharmacy consult - MTM, , Not Applicable, Daily metroNIDAZOLE, 500 mg, Intravenous, Q8H pantoprazole, 40 mg, Oral, Daily sodium chloride, 10 mL, Intravenous, Q12H sodium chloride, 10 mL, Intravenous, Q12H Continuous Infusions: PRN Meds:. acetaminophen OR acetaminophen OR acetaminophen senna-docusate sodium AND polyethylene glycol AND bisacodyl AND bisacodyl Calcium Replacement - Follow Nurse / BPA Driven Protocol ipratropium-albuterol Magnesium Standard Dose Replacement - Follow Nurse / BPA Driven Protocol nitroglycerin ondansetron Phosphorus Replacement - Follow Nurse / BPA Driven Protocol Potassium Replacement - Follow Nurse / BPA Driven Protocol sodium chloride sodium chloride sodium chloride sodium chloride Assessment & Plan Assessment & Plan Active Hospital Problems Diagnosis POA Occipital stroke [I63.9] Yes Choledocholithiasis [K80.50] Yes Acute respiratory failure with hypoxia [J96.01] Yes CAP (community acquired pneumonia) [J18.9] Yes ESRD (end stage renal disease) [N18.6] Yes Atrial fibrillation [I48.91] Yes Resolved Hospital Problems No resolved problems to display. Brief Hospital Course to date: Alexa Fuentes is a 74 y.o. male with hx of HTN, HLD, COPD, Afib on Eliquis, and ESRD on HD who presents from [facility] due to AMS and concern for stroke. In addition he was found to have pneumonia and possible choledocholithiasis. Stroke team accepted in transfer to [facility]. Acute encephalopathy --Likely multifactorial due to pneumonia, hypoxia, stroke --Appears to be improved currently Acute CVA, left occipital lobe --CT head at OSH revealed acute/subacute left occipital lobe ischemia, CTA showed no large vessel occlusion. Given that he is on Eliquis, with the last dose taken that morning, he was not a candidatefor TNK. --MRI brain here confirms tiny acute infarct within the left occipital lobe. Questionable additional punctate cortical acute/subacute infarct within the left centrum semiovale. --Bilateral carotid duplex pending --Echo pending --Stroke Neurology following, okay to continue Eliquis 2.5 mg BID, adding ASA 81 mg; continue atorvastatin 80 mg nightly --PT/OT/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 evaluations Choledocholithiasis --CT A/P at OSH showed a distended gallbladder with a 5 mm stone, wall thickening, surrounding pericholecystic fluid, and mild intrahepatic ductal dilation, highly suspicious for choledocholithiasis.These findings were consistent with prior studies, including MRI. --MRCP 06/07/25: 7 mm stone in lower common bile duct, cholelithiasis without cholecystitis --Patient reports he was told a long time ago about this issue and he tried to get them to do something about it but no one did --Continue Rocephin, Flagyl --GI consulted --Holding Eliquis for now in case of ERCP Acute hypoxic respiratory failure Pneumonia --CT chest at OSH showed bilateral ground-glass opacities --Required non-rebreather mask at OSH, currently on 3 liters and does not wear home oxygen at baseline --Reportedly COVID negative at OSH, RN working to confirm this - will repeat respiratory PCR panel here if unable to confirm --Scheduled and PRN duonebs --Continue Rocephin --Monitor leukocytosis for improvement --Wean O2 as tolerated ESRD --On HD MWF --Nephrology consulted Afib --Holding Eliquis for now in case of ERCP per GI --Continue home Amiodarone HTN HLD --Not on any home BP meds --LDL 15 --Continue statin COPD --Scheduled and PRN nebs Expected Discharge Location and Transportation: TBD Expected Discharge Expected Discharge Date: 06/11/2025; Expected Discharge Time: VTE Prophylaxis: Pharmacologic & mechanical VTE prophylaxis orders are present. AM-PAC 6 Clicks Score (PT): 8 (06/07/25 0612) CODE STATUS: Code Status and Medical Interventions: No CPR (Do Not Attempt to Resuscitate); Limited Support; No intubation (DNI) Ordered at: 06/07/25 1137 Code Status (Patient has no pulse and is not breathing): No CPR (Do Not Attempt to Resuscitate) Medical Interventions (Patient has pulse or is breathing): Limited Support Medical Intervention Limits: No intubation (DNI) Level Of Support Discussed With: Patient Next of Kin (If No Surrogate) Krystal Herzog MD 06/07/25 * Dorian Haider MD - 06/07/2025 10:22 AM EDT Stroke Progress Note Chief Complaint: Altered mental status, dysarthria Subjective Subjective Subjective: The patient is lying down in the bed in NAD. Son is at bedside. Per son, patient had multiple episodes of altered awareness during dialysis in the past. He frequently has low blood pressures during dialysis. Per patient's son he, he has back at his baseline. Son also notes that patient's dysarthria is chronic. No other acute complains at this time Objective Temp: [97.1 ??F (36.2 ??C)-98 ??F (36.7 ??C)] 97.1 ??F (36.2 ??C) Heart Rate: [54-65] 54 Resp: [16-18] 18 BP: (112-132)/(46-54) 121/46 Objective GEN: lying in bed; in NAD HENT: normocephalic NEURO: Awake and alert. Oriented to self, time, place, and situation. Language is fluent with good comprehension. No evidence of aphasia Pupils are equal, round, and reactive to light. Visual garcia are full to confrontational testing. Extraocular movements intact. Face is symmetric at rest and with activation. Facial sensation is intact. Hearing grossly intact. Moderate dysarthria (chronic). Tongue protrudes midline. No abnormal movements. Will to maintain left upper extremity against gravity without drift. Patienthas some effort against gravity in the right upper extremity, however there is pain limitation fromreported chronic injury. Patient is able to wiggle his toes but is only able to briefly maintain lower extremities against gravity. Strength appears roughly equal in the bilateral lower extremities. Sensation intact to light touch throughout. Coordination intact in left upper extremity, unable to test in the remaining extremities. Reflexes and gait deferred. Results Review: I reviewed the patient's new clinical results. WBC Date Value Ref Range Status 06/07/2025 18.26 (H) 3.40 - 10.80 10*3/mm3 Final RBC Date Value Ref Range Status 06/07/2025 2.88 (L) 4.14 - 5.80 10*6/mm3 Final Hemoglobin Date Value Ref Range Status 06/07/2025 9.0 (L) 13.0 - 17.7 g/dL Final Hematocrit Date Value Ref Range Status 06/07/2025 28.1 (L) 37.5 - 51.0 % Final MCV Date Value Ref Range Status 06/07/2025 97.6 (H) 79.0 - 97.0 fL Final MCH Date Value Ref Range Status 06/07/2025 31.3 26.6 - 33.0 pg Final MCHC Date Value Ref Range Status 06/07/2025 32.0 31.5 - 35.7 g/dL Final RDW Date Value Ref Range Status 06/07/2025 15.7 (H) 12.3 - 15.4 % Final RDW-SD Date Value Ref Range Status 06/07/2025 56.1 (H) 37.0 - 54.0 fl Final MPV Date Value Ref Range Status 06/07/2025 12.4 (H) 6.0 - 12.0 fL Final Platelets Date Value Ref Range Status 06/07/2025 120 (L) 140 - 450 10*3/mm3 Final Neutrophil % Date Value Ref Range Status 06/07/2025 84.7 (H) 42.7 - 76.0 % Final Lymphocyte % Date Value Ref Range Status 06/07/2025 2.8 (L) 19.6 - 45.3 % Final Monocyte % Date Value Ref Range Status 06/07/2025 7.5 5.0 - 12.0 % Final Eosinophil % Date Value Ref Range Status 06/07/2025 0.0 (L) 0.3 - 6.2 % Final Basophil % Date Value Ref Range Status 06/07/2025 0.1 0.0 - 1.5 % Final Immature Grans % Date Value Ref Range Status 06/07/2025 4.9 (H) 0.0 - 0.5 % Final Neutrophils, Absolute Date Value Ref Range Status 06/07/2025 15.45 (H) 1.70 - 7.00 10*3/mm3 Final Lymphocytes, Absolute Date Value Ref Range Status 06/07/2025 0.52 (L) 0.70 - 3.10 10*3/mm3 Final Monocytes, Absolute Date Value Ref Range Status 06/07/2025 1.37 (H) 0.10 - 0.90 10*3/mm3 Final Eosinophils, Absolute Date Value Ref Range Status 06/07/2025 0.00 0.00 - 0.40 10*3/mm3 Final Basophils, Absolute Date Value Ref Range Status 06/07/2025 0.02 0.00 - 0.20 10*3/mm3 Final Immature Grans, Absolute Date Value Ref Range Status 06/07/2025 0.90 (H) 0.00 - 0.05 10*3/mm3 Final nRBC Date Value Ref Range Status 06/07/2025 0.0 0.0 - 0.2 /100 WBC Final Lab Results Component Value Date GLUCOSE 77 06/07/2025 BUN 52.4 (H) 06/07/2025 CREATININE 6.07 (H) 06/07/2025 NA 136 06/07/2025 K 5.0 06/07/2025 CL 93 (L) 06/07/2025 CALCIUM 9.0 06/07/2025 PROTEINTOT 6.1 06/07/2025 ALBUMIN 3.0 (L) 06/07/2025 ALT 652 (H) 06/07/2025 AST 558 (H) 06/07/2025 ALKPHOS 102 06/07/2025 BILITOT 0.9 06/07/2025 GLOB 3.1 06/07/2025 AGRATIO 1.0 06/07/2025 BCR 8.6 06/07/2025 ANIONGAP 15.1 (H) 06/07/2025 EGFR 9.0 (L) 06/07/2025 No radiology results for the last day Assessment/Plan Assessment: # Chronic left occipital lobe infarct #Atrial fibrillation on anticoagulation #Altered mental status #Hyperlipidemia #CKD on hemodialysis 74-year-old male with known medical diagnoses of atrial fibrillation (on Eliquis to 2.5 mg twice daily), COPD (not oxygen dependent), HLD, and CKD on HD (Wednesday, Wednesday, Wednesday) who [facility] for further evaluation of altered mental status, unresponsiveness, and leaning to the right. On arrival to the emergency department he underwent a CTof the head without contrast which revealed a late acute to subacute infarct in the left occipital lobe. Given this and chronic Eliquis use he was not a candidate for IV thrombolytic therapy. CTA head/neck was reported as negative for flow- limiting stenosis or LVO. He will be admitted to the hospitalist service for further stroke workup. Imaging: CT head with hypodensity in the left occipital lobe, age-indeterminate. No LVO on CTA head and neck, however there is mild to moderate atherosclerotic plaque both intra and extracranially. MRI shows questionable punctate area of diffusion restriction versus shine through in the left periventricularwhite matter as well as chronic infarct in the left occipital lobe. Echocardiogram: Pending PHYSICIAN/ALLERGY/IMMUNOLOGY antiplatelet/anticoagulation/statin: Apixaban 2.5 mg twice daily, atorvastatin 80 mg nightly Pertinent labs: LDL 15, A1c pending On imaging, there is a possible small area of restricted diffusion in the low left periventricular white matter. Given the degree of chronic white matter disease in the area it is possible this may be T2 shine through. A small infarct would not explain patient's overall presentation yesterday. Presentation is more likely consistent with dialysis disequilibrium syndrome. That said, patient does have chronic, embolic appearing infarct in the left occipital lobe. Patient is on apixaban at a reduced dose for atrial fibrillation, which may be appropriate in the setting of hemodialysis. Given the atherosclerotic disease both extracranial intracranially and new possible punctate infarct would add aspirin 81 mg daily. Right carotid artery at the bifurcation does look significantly worse than the left side, however it does not appear to be currently symptomatic. Will continue to follow in outpatient setting. Plan: - Continue aspirin 81 mg daily - Continue apixaban 2.5 mg daily in the setting of hemodialysis - TTE pending - No need for permissive hypertension at this time - Long-term blood pressure goal less than 130/80 - LDL goal less than 70 - PT/OT/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 - Outpatient follow-up in vascular neurology clinic in 4 to 8 weeks. Patient education for discharge: call 911 or present to emergency department with any stroke symptom, including unilateral face, arm, or leg weakness, numbness, or paresthesias, unilateral facial droop, speech deficits, dizziness with nausea, vomiting, nystagmus, and incoordination, visual deficits, or severe onset headache. Stroke will follow peripherally for echo. Please call for any further questions or concerns Dorian Haider MD Vascular Neurologist [facility] documented in this encounter H&P Notes * Rolan Muro MD - 06/06/2025 8:47 PM EDT Images from the original note were not included. [facility] HISTORY AND PHYSICAL Patient Name: Alexa Fuentes : 1950 Primary Care Physician: Jeffrey Sun MD Date of admission: 06/06/2025 Subjective Subjective Chief Complaint: Altered mental status HPI: Alexa Fuentes is a 74 y.o. male with PMHx significant for end-stage CKD on hemodialysis (M/W/F), atrial fibrillation on Eliquis, COPD, hyperlipidemia, and hypertension. He was directly admitted to [facility] from [facility] for evaluation of altered mental status and concern for stroke. Earlier in the day, the patient was undergoing his scheduled dialysis session and was transferred back to his nursing facility. Nursing staff noticed that he was more lethargic, confused, and weak than usual, prompting activation of a stroke code. EMS transported him to [facility]. On arrival, he was placed on a non-rebreather mask for hypoxia. A CT head revealed acute/subacute left occipital lobe ischemia. CTA showed no large vessel occlusion. Given that he is on Eliquis, with the last dose taken that morning, he was not a candidate for TNK. In the ER, the patient was hemodynamically stable but lethargic and not following commands. Last known normal was 3 PM that day. Labs were notable for WBC 21 with a left shift, hemoglobin 9.8, platelets 177, INR 1.35, sodium 132, potassium 4.0, creatinine 5.10, BUN 45, glucose 84, AST 485, ALT 482,alkaline phosphatase normal, and bilirubin 1.5. Troponin was normal. Imaging of the abdomen and chest demonstrated a distended gallbladder with a 5 mm stone, wall thickening, surrounding pericholecystic fluid, and mild intrahepatic ductal dilation, highly suspicious for choledocholithiasis. These findings were consistent with prior studies, including MRI. CT chest also showed bilateral ground-glass opacities. The patient reported cough and was started on antibiotics. The stroke team was consulted and accepted the patient for transfer to our facility for further evaluation and management of acute ischemic stroke. Hospitalist services were consulted for admission and additional workup, including evaluation of stroke, choledocholithiasis with dilated CBD and elevat ed liver enzymes, hypoxia, and dialysis needs given the patient???s recent IV contrast exposure. Personal History No past medical history on file. No past surgical history on file. Family History: family history is not on file. Social History: Social History Social History Narrative Not on file Medications: Available home medication information reviewed. Not on File Objective Objective Vital Signs: Total (NIH Stroke Scale): 5 Physical Exam Constitutional: General: He is not in acute distress. Appearance: He is normal weight. Comments: Chronically ill-appearing HENT: Head: Normocephalic. Mouth/Throat: Pharynx: Oropharynx is clear. Eyes: Extraocular Movements: Extraocular movements intact. Pupils: Pupils are equal, round, and reactive to light. Pulmonary: Breath sounds: Wheezing present. Comments: Nasal cannula in place Musculoskeletal: Cervical back: Normal range of motion. Skin: General: Skin is warm and dry. Coloration: Skin is pale. Findings: Bruising present. Neurological: Mental Status: He is lethargic. NIH SS score 8 Cranial Nerves: Cranial nerve deficit and dysarthria present. Sensory: No sensory deficit. Motor: Weakness present. Gait: Gait normal. Result Review: I have personally reviewed the results from the time of this admission to 06/06/2025 20:47 EDT and agree with these findings: [x] Laboratory list / accordion [] Microbiology [x] Radiology [x] EKG/Telemetry [] Cardiology/Vascular [] Pathology [] Old records [] Other: Most notable findings include: Reviewed transfer ED notes and documented as above, lab and CT as below Creatinine 5.1 BUN 45 Glucose 84 AST 485 ALT 482 CTA head and neck: severe stenosis at the origin of the right ICA, less than 50% stenosis in the left ICA, moderate stenosis in the distal left ICA, mild stenosis of the right vertebral artery, moderate stenosis at the origin of the left vertebral artery. CT head without contrast: Negative for any acute intracranial hemorrhage. Suspicious for chronic versus late subacute infarct. Multiple chronic infarcts in bilateral cerebellar hemispheres. White matter changes compatible with chronic hypertensive microvascular disease. LAB RESULTS: Microbiology Results (last 10 days) No results found for the last 240 hours. No radiology results from the last 24 hrs Assessment & Plan Assessment & Plan Occipital stroke Acute/subacute occipital stroke Altered mental status/acute encephalopathy Choledocholithiasis/CBD dilation Transaminitis Hypoxia Community-acquired pneumonia ESRD on HD HTN HLD This is a 74-year-old male with ESRD on HD, atrial fibrillation on Eliquis, COPD, HTN, and HLD who developed acute altered mental status and weakness after dialysis, prompting a stroke code. CT head showed acute/subacute left occipital ischemia with no large vessel occlusion, but he was not a candidate for TNK due to recent Eliquis use. Labs revealed leukocytosis, anemia, elevated liver enzymes, and imaging was concerning for choledocholithiasis with gallbladder wall thickening and pericholecystic fluid. CT chest also showed bilateral ground-glass opacities, and the patient had a cough, for which antibiotics were started. He was accepted for transfer for further stroke evaluation, management of choledocholithiasis, hypoxia, and dialysis needs. Occipital stroke / Acute/subacute occipital stroke - Admitted to telemetry on observation - Continuous pulse oximetry -Continue aspirin 81 mg -Hold statin due to elevated liver enzymes - Stroke team consulted, appreciate recommendation follow-up - MRI ordered pending result -Neurocheck and neurovascular check - Echocardiogram with bubble ordered pending result - Repeat EKG -N.p.o. for now until speech eval - PT/OT/speech eval consulted - Will get TSH, A1c and lipid panel -Reviewed CT scan report from OSH - Duplex ultrasound ordered due to concern of right carotid stenosis less than 50% on CTA Altered mental status / Acute encephalopathy Likely secondary to multifactorial include pneumonia, hypoxia, end-stage renal disease vs acute/subacute stroke -Continue monitor neurocheck - Nephrology in a.m. for dialysis - Correct electrolyte abnormalities - Continue antibiotic Sepsis without septic shock: Community-acquired pneumonia Choledocholithiasis Concern for acute cholecystitis? Transaminitis Dilated CBD, concern for stone likely secondary to pneumonia with CT scan showed ground glass opacity on the left lung, also choledocholithiasis with CBD dilation concern for acute cholecystitis as well - Given that end-stage renal disease, will start patient on ceftriaxone and Flagyl to cover intra-abdominal infection and pneumonia -Consider add Doxy if needed -Blood culture X2 ordered, lactic acid trend -Obtain blood culture result from OSH -Zofran for nausea and vomiting - Pantoprazole 40 mg IV and switch to p.o. when allowed - Consult GI for further evaluation of choledocholithiasis - A.m. labs with CMP, magnesium, lactic acid Acute hypoxic respiratory failure Likely secondary to pneumonia and fluid overload -On oxygen therapy on 3 L nasal cannula titrate to keep SpO2 above 90% - Aggressive pulmonary toileting - On ceftriaxone - DuoNebs as needed - Will hold steroid at this time due to concern for inflammation End-stage renal disease: On dialysis -Nephrology consulted in a.m. - Medication adjusted per GFR less than 10 - Daily labs - Patient has dialysis earlier today, but given that he received contrast will might need dialysis tomorrow morning or will continue as scheduled MWF will defer that to nephrology Atrial fibrillation without RVR: Chronic, stable Will hold Eliquis due to concern for stroke and concern for choledocholithiasis Restart home medication when pharmacy completed medication reconciliation HTN: Chronic, will allow autoregulation of blood pressure BP treatment if SBP> 220 HLD: Will hold statin due to elevated LFT Lipid panel in a.m. Total time spent: 75 minutes Time spent includes time reviewing chart, [id number] time, counseling patient/family/caregiver, ordering medications/tests/procedures, communicating with other health director career services, documenting clinical information in the electronic health record, and coordination of care. (Consider using .[email or web address] or .LEXMDM then remove this message) VTE Prophylaxis: Mechanical VTE prophylaxis orders are present. CODE STATUS: There are no questions and answers to display. Expected Discharge Expected discharge date/ time has not been documented. Rolan Muro MD 06/06/25 documented in this encounter Consult Notes * Jacob Bray - 06/10/2025 8:50 AM EDTAssociated Order(s): IP CONSULT TO SPIRITUAL CARE Seeing patient per Palliative Care consult. Patient stated two different things in a brief conversation during dividend clerk encounter. I'm okay..not much worse than me. No spiritual needs met at this time. Patient reported that he was about to sleep, then went back to looking at videos on his phone. Route Returner may follow up to see if patient would like to talk at a better time. * Pantera Dc MD - 06/08/2025 6:14 PM EDTAssociated Order(s): IP CONSULT TO INFECTIOUS DISEASES Images from the original note were not included. INFECTIOUS DISEASE CONSULT/INITIAL HOSPITAL VISIT Alexa Fuentes 1950 [id number] Date of Consult: 06/08/2025 Admission Date: 06/06/2025 Requesting Provider: Ivonne Ralph MD Evaluating Physician: Pantera Dc MD Reason for Consultation: Strep pneumoniae bacteremia History of present illness: Patient is a 74 y.o. male with h/o COPD, ESRD/HD MWF/RUE AVF not working for about a year/dialysis catheter in place for close to a year, afib/Eliquis, obesity, HTN, HLD, and CVA who we were asked tosee for Streptococcus pneumoniae bacteremia. He was transferred from [facility] to [facility] on 06/06 for concerns for stroke along with altered mental status. He was noted at his NH to be more lethargic and confused and was transferred to [facility]. His CT scan at [facility] showed acute/subacute left occipital lobe ischemia and a CTA of head showed no large vessel occlusion. He was not a candidate for TNK. His labs at OSH were WBC 21,000, creatinine 5.10, AST 485, ALT 482, and bilirubin 1.5. A CT scan of a/p showed distended gallbladder with 5 mm stone, wall thickening, pericholecystic fluid, and mild intrahepatic ductal dilatation suspicious for choledocholelithiasis. A CT scan of chest showed bilateral GGO. He was started on IV antibiotics and transferred to [facility] on 06/06. Since arrival, the patient has been afebrile. An MRI of the brain on 06/07 show tiny acute infarct in the left occipital lobe and chronic infarcts in bilateral cerebellum and left occipital lobe alongwith pansinus mucosal thickening and bilateral mastoid effusions. An MRCP of abd on 06/07 showed choledocholelithiasis in CBD and cholelithiasis without acute cholecystitis along with LLL consolidation c/w pneumonia. He underwent an ERCP with stone removal and stent placement on 06/[address] Foote. He was evaluated by Dr. Tim for possible cholecystectomy on 06/09. Blood cultures are negative to date. A C.auris PCR is negative. He is currently on Rocephin and Flagyl. ID was asked to evalaute and manage his antibiotic therapy. His blood cultures from [facility] became positive for GPC in pairs in 2 of 2 sets (4 of 4 bottles) with Streptococcus pneumoniae identified by [employer] PCR. (Fax is on chart) Past Medical History: Diagnosis Date COPD (chronic obstructive pulmonary disease) ESRD (end stage renal disease) on dialysis Hyperlipidemia Hypertension Stroke Past Surgical History: Procedure Laterality Date COLONOSCOPY KNEE SURGERY Right Family History Problem Relation Age of Onset Cancer Father Social History Socioeconomic History Marital status: Tobacco Use Smoking status: Never Smokeless tobacco: Never Vaping Use Vaping status: Never Used Substance and Sexual Activity Alcohol use: Never Drug use: Never Sexual activity: Not Currently No Known Allergies Medication: Current Facility-Administered Medications: acetaminophen (TYLENOL) tablet 650 mg, 650 mg, Oral, Q4H PRN, 650 mg at 06/08/25 0330 OR acetaminophen (TYLENOL) 160 MG/5ML oral solution 650 mg, 650 mg, Oral, Q4H PRN OR acetaminophen (TYLENOL) suppository 650 mg, 650 mg, Rectal, Q4H PRN, Kishore Foote MD albumin human 25 % IV SOLN 12.5 g, 12.5 g, Intravenous, PRN, Rehan Lincoln MD, 12.5 g at 06/08/25 1507 amiodarone (PACERONE) tablet 200 mg, 200 mg, Oral, BID, Kishore Foote MD, 200 mg at 06/08/252055 [Held by provider] apixaban (ELIQUIS) tablet 2.5 mg, 2.5 mg, Oral, Q12H, Krystal Herzog MD aspirin chewable tablet 81 mg, 81 mg, Oral, Daily OR aspirin suppository 300 mg, 300 mg, Rectal, Daily, Kishore Foote MD atorvastatin (LIPITOR) tablet 80 mg, 80 mg, Oral, Nightly, Kishore Foote MD, 80 mg at 06/08/252055 sennosides-docusate (PERICOLACE) 8.6-50 MG per tablet 2 tablet, 2 tablet, Oral, BID PRN AND polyethylene glycol (MIRALAX) packet 17 g, 17 g, Oral, Daily PRN AND bisacodyl (DULCOLAX) EC tablet5 mg, 5 mg, Oral, Daily PRN AND bisacodyl (DULCOLAX) suppository 10 mg, 10 mg, Rectal, Daily PRN, Kishore Foote MD Calcium Replacement - Follow Nurse / BPA Driven Protocol, , Not Applicable, PRN, Kishore Foote MD cefTRIAXone (ROCEPHIN) 2,000 mg in sodium chloride 0.9 % 100 mL MBP, 2,000 mg, Intravenous, Q24H, Kishore Foote MD, Last Rate: 200 mL/hr at 06/08/25 0549, 2,000 mg at 06/08/25 0549 guaiFENesin (MUCINEX) 12 hr tablet 600 mg, 600 mg, Oral, Q12H, Kishore Foote MD, 600 mg at 06/08/252055 ipratropium-albuterol (DUO-NEB) nebulizer solution 3 mL, 3 mL, Nebulization, 4x Daily - RT, Kishore Foote MD, 3 mL at 06/08/252105 ipratropium-albuterol (DUO-NEB) nebulizer solution 3 mL, 3 mL, Nebulization, Q6H PRN, Kishore Foote MD Magnesium Standard Dose Replacement - Follow Nurse / BPA Driven Protocol, , Not Applicable, PRN, Kishore Foote MD metroNIDAZOLE (FLAGYL) IVPB 500 mg, 500 mg, Intravenous, Q8H, Kishore Foote MD, Last Rate: 200 mL/hr at 06/08/25 2100, 500 mg at 06/08/25 2100 nitroglycerin (NITROSTAT) SL tablet 0.4 mg, 0.4 mg, Sublingual, Q5 Min PRN, Kishore Foote MD ondansetron (ZOFRAN) injection 4 mg, 4 mg, Intravenous, Q6H PRN, Kishore Foote MD, 4 mg at 06/08/25 1351 pantoprazole (PROTONIX) EC tablet 40 mg, 40 mg, Oral, Daily, Kishore Foote MD, 40 mg at 06/07/25 1839 Phosphorus Replacement - Follow Nurse / BPA Driven Protocol, , Not Applicable, PRNQamar John A, MD Potassium Replacement - Follow Nurse / BPA Driven Protocol, , Not Applicable, PRQamar Shukla John A, MD sodium chloride 0.9 % flush 10 mL, 10 mL, Intravenous, Q12H, Kishore Foote MD, 10 mL at 06/08/25 2100 sodium chloride 0.9 % flush 10 mL, 10 mL, Intravenous, PRN, Kishore Foote MD sodium chloride 0.9 % flush 10 mL, 10 mL, Intravenous, Q12H, Kishore Foote MD, 10 mL at 06/08/25 2100 sodium chloride 0.9 % flush 10 mL, 10 mL, Intravenous, PRN, Kishore Foote MD sodium chloride 0.9 % infusion 40 mL, 40 mL, Intravenous, PRN, Kishore Foote MD sodium chloride 0.9 % infusion 40 mL, 40 mL, Intravenous, PRN, Kishore Foote MD Antibiotics: Anti-Infectives (From admission, onward) Ordered Dose/Rate Route Frequency Start Stop 06/07/25 1532 metroNIDAZOLE (FLAGYL) IVPB 500 mg Ordering Provider: Kishore Foote MD 500 mg 200 mL/hr over 30 Minutes Intravenous Every 8 Hours 06/07/25 2000 06/14/25 1159 06/07/25 0437 metroNIDAZOLE (FLAGYL) IVPB 500 mg Status: Discontinued Ordering Provider: Rolan Muro MD 500 mg 200 mL/hr over 30 Minutes Intravenous Every 8 Hours 06/07/25 0600 06/07/25 1532 06/07/25 0437 cefTRIAXone (ROCEPHIN) 2,000 mg in sodium chloride 0.9 % 100 mL MBP Ordering Provider: Kishore Foote MD 2,000 mg 200 mL/hr over 30 Minutes Intravenous Every 24 Hours 06/07/25 0600 06/12/25 0559 Review of Systems: He is confused and cannot provide a reliable review of systems Physical Exam: Vital Signs Temp (24hrs), Av.1 ??F (36.2 ??C), Min:95.9 ??F (35.5 ??C), Max:97.9 ??F (36.6 ??C) Temp Min: 95.9 ??F (35.5 ??C) Max: 97.9 ??F (36.6 ??C) BP Min: 86/50 Max: 140/69 Pulse Min: 50 Max: 68 Resp Min: 16 Max: 19 SpO2 Min: 90 % Max: 100 % GENERAL: Awake and alert, in no acute distress. He is pleasantly confused HEENT: Normocephalic, atraumatic. PERRL. EOMI. No conjunctival injection. No icterus. Oropharynx clear without evidence of thrush or exudate. NECK: Supple. HEART: RRR; II/ murmur. LUNGS:Diminished at left lung base with basilar rales, relatively clear right lung field without wheezing,. Normal respiratory effort. Nonlabored. ABDOMEN: Soft, nontender, nondistended.. No rebound or guarding. NO mass or HSM. Obese. EXT: No cyanosis 1+ edema. No cord. : Without Archibald catheter. MSK: No joint effusions or erythema SKIN: Warm and dry without cutaneous eruptions on Inspection/palpation. NEURO: pleasantly confused Motor 5/5 strength Left CW HD cath dry without erythema Laboratory Data Results from last 7 days Lab Units 06/08/25 0848 06/07/25 0057 WBC 10*3/mm3 10.13 18.26* HEMOGLOBIN g/dL 8.6* 9.0* HEMATOCRIT % 27.7* 28.1* PLATELETS 10*3/mm3 195 120* Results from last 7 days Lab Units 06/08/25 0848 SODIUM mmol/L 137 POTASSIUM mmol/L 5.1 CHLORIDE mmol/L 93* CO2 mmol/L 24.1 BUN mg/dL 80.3* CREATININE mg/dL 8.13* GLUCOSE mg/dL 66 CALCIUM mg/dL 8.8 Results from last 7 days Lab Units 06/08/25 0848 ALK PHOS U/L 111 BILIRUBIN mg/dL 0.6 ALT (SGPT) U/L 982* AST (SGOT) U/L 730* Results from last 7 days Lab Units 06/07/25 0603 LACTATE mmol/L 0.9 Estimated Creatinine Clearance: 11.6 mL/min (A) (by C-G formula based on SCr of 8.13 mg/dL (H)). Microbiology: Microbiology Results (last 10 days) Procedure Component Value - Date/Time MRSA Screen, PCR (Inpatient) - Swab, Nares [[id number]] (Abnormal) Collected: 06/08/251904 Lab Status: Final result Specimen: Swab from Nares Updated: 06/08/252151 MRSA PCR Positive Narrative: The negative predictive value of this diagnostic test is high and should only be used to consider de-escalating anti-MRSA therapy. A positive result may indicate colonization with MRSA and must be correlated clinically. KIMANI AURIS PCR - Swab, Axilla Right, Axilla Left and Groin [[id number]] Collected: 06/07/25 0845 Lab Status: Final result Specimen: Swab from Axilla Right, Axilla Left and Groin Updated: 06/08/25 1715 KIMANI AURIS PCR (MITUL) Not Detected Blood Culture - Blood, Wrist, Left [[id number]] (Normal) Collected: 06/07/25 0603 Lab Status: Preliminary result Specimen: Blood from Wrist, Left Updated: 06/08/25 0730 Blood Culture No growth at 24 hours Narrative: Aerobic Bottle Only Less than seven (7) mL's of blood was collected. Insufficient quantity may yield false negative results. Blood Culture - Blood, Wrist, Left [[id number]] (Normal) Collected: 06/07/25 0601 Lab Status: Preliminary result Specimen: Blood from Wrist, Left Updated: 06/08/25 0730 Blood Culture No growth at 24 hours Narrative: Aerobic Bottle Only Less than seven (7) mL's of blood was collected. Insufficient quantity may yield false negative results. Radiology: Imaging Results (Last 72 Hours) Procedure Component Value Units Date/Time FL ERCP pancreatic and biliary ducts [[id number]] Collected: 06/08/25 1531 Updated: 06/08/25 1552 Narrative: FL ERCP PANCREATIC AND BILIARY DUCTS Date of Exam: 06/08/2025 10:49 AM EDT Indication: ENDOSCOPIC RETROGRADE CHOLANGIOPANCREATOGRAPHY. Comparison: None available. Technique: A series of radiographic digital spot films were obtained in conjunction with an endoscopic catheterization of the biliary and pancreatic ductal system, performed by the linux network administrator. Fluoroscopic Time: 5 minutes 57 seconds Number of Images: 10 Findings: Fluoroscopy demonstrates filling of the bile ducts. Impression: Impression: Fluoroscopy demonstrates filling of the bile ducts. Please see procedure report for full findings. Electronically Signed: Migue Mcfarlane MD 06/08/2025 3:48 PM EDT Workstation ID: [id number] 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 FEES - Fiberoptic Endo Eval Swallow [[id number]] Resulted: 06/07/251658 Updated: 06/07/251658 Narrative: This procedure was auto-finalized with no dictation required. MRI abdomen wo contrast mrcp [[id number]] Collected: 06/07/25 1008 Updated: 06/07/25 1029 Narrative: MRI ABDOMEN WO CONTRAST MRCP Date of Exam: 06/07/2025 9:28 AM EDT Indication: CBD dilation with choledocholithiasis. Comparison: CT abdomen pelvis 06/06/2025. Technique: Routine multiplanar/multisequence images of the abdomen were obtained with MRCP sequences without contrast administration. Findings: Motion-degraded exam. Left lower lobe consolidation with trace left pleural effusion. Heart appears enlarged. No morphologic changes of chronic liver disease. No evidence of hepatic steatosis. No evidence of focal liver lesion on this noncontrast exam. Cholelithiasis. Mild gallbladder distention without wallthickening or pericholecystic fluid. Intra and extrahepatic biliary ductal dilatation to the level of the ampulla with common bile duct measuring 15 mm. 7 mm ovoid filling defect within the lower common bile duct consistent with choledocholithiasis. No pancreatic ductal dilatation. No findings of acute pancreatitis. Spleen is normal in size. Bilateral renal atrophy. Subcentimeter hemorrhagic/proteinaceous foci along the left kidney may represent a hemorrhagic/proteinaceous cyst, though incompletely characterized on this noncontrast exam.Otherwise there are multiple bilateral renal cysts are overall simple-appearing. No hydronephrosis. No dilated bowel loops within the [id number]. No free fluid in the abdomen. No pathologically enlarged lymph nodes. No abdominal aortic aneurysm. Atherosclerosis. No body wall abnormality. Multilevel spondylosis. No acute or suspicious osseous abnormalities evident on this noncontrast exam. Impression: Impression: Choledocholithiasis with a 7 mm stone in the lower common bile duct. Intra and extrahepatic biliaryductal dilatation with common bile duct measuring 15 mm. Correlate with serum bilirubin and consider ERCP. Cholelithiasis without evidence of acute cholecystitis. Left lower lobe consolidation with trace left pleural effusion, suggestive of pneumonia. Chronic/ancillary findings as above. Electronically Signed: Preet Crowley MD 06/07/2025 10:26 AM EDT Workstation ID: [id number] MRI Brain Without Contrast [[id number]] Collected: 06/07/25 1013 Updated: 06/07/25 1026 Narrative: MRI BRAIN WO CONTRAST Date of Exam: 06/07/2025 9:17 AM EDT Indication: Stroke, follow up Left occipital stroke seen on CT scan. Comparison: Head CT dated 06/06/2025 Technique: Routine multiplanar/multisequence sequence images of the brain were obtained without contrast administration. FINDINGS: There is a tiny focus of DWI hyperintense signal within the left occipital lobe (series 5, image 86), concerning for tiny acute infarct. Questionable additional punctate cortical infarct within the left centrum semiovale (series 5, image 96). Foci of T2/FLAIR signal hyperintensity are seen within the bilateral hemispheric white matter. There is cortical atrophy with prominent sulcation and ventriculomegaly. There is encephalomalacia involving the bilateral cerebellum and left occipital lobe, likely related to remote infarcts. Midline structures appear unremarkable. No significant mass effect, intracranial hemorrhage, or hydrocephalus is identified. The visualized intracranial flow- voids appear unremarkable. There is pansinus mucosal thickening with complete opacification of the left maxillary sinus. Bilateral mastoid effusions are also seen. Bilateral lens prostheses noted. The visualized superficial soft tissues and cervical spine demonstrate no significant abnormality. Impression: 1.Findings concerning for tiny acute infarct within the left occipital lobe (series 5, image 86). Questionable additional punctate cortical acute/subacute infarct within the left centrum semiovale (series 5, image 96). 2.Additional findings compatible with chronic microvascular ischemic change and diffuse cortical atrophy. 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 3.Pansinus mucosal thickening and bilateral mastoid effusions. Electronically Signed: Vimal Lares MD 06/07/2025 10:22 AM EDT Workstation ID: [id number] CT Outside Films [[id number]] Resulted: 06/06/252046 Updated: 06/06/252046 Narrative: This procedure was auto-finalized with no dictation required. CT Outside Abd/Pelvis [[id number]] Resulted: 06/06/252046 Updated: 06/06/252046 Narrative: This procedure was auto-finalized with no dictation required. CT Outside Head [[id number]] Resulted: 06/06/252046 Updated: 06/06/252046 Narrative: This procedure was auto-finalized with no dictation required. CT Outside Films [[id number]] Resulted: 06/06/252046 Updated: 06/06/252046 Narrative: This procedure was auto-finalized with no dictation required. CT Outside Neck [[id number]] Resulted: 06/06/252046 Updated: 06/06/252046 Narrative: This procedure was auto-finalized with no dictation required. I read his radiographic images. Impression: Acute choledocholelithiasis with possible acute cholecystitis s/p ERCP 06/08 with stone extraction and stent placement. Awaiting evaluation on 06/09 for possible cholecystectomy. Streptococcus pneumoniae bacteremia at OSH-secondary to left lower lobe pneumonia LLL pneumococcal pneumonia Acute left occipital lobe cerebral vascular accident Valvular heart disease-Moderate aortic stenosis per TTE. At risk for pneumococcal endocarditis. Consider JARED. Severe sepsis manifested by leukocytosis, acute respiratory failure, elevated liver transaminases, hyperbilirubinemia, and encephalopathy secondary to Strep pneumo bacteremia, pneumonia, and choledocholelithiasis/cholangitis. Encephalopathy, toxic/metabolic, improving Acute hypoxic respiratory failure/on 3L O2. Leukocytosis/neutrophilia Anemia of chronic disease Choledocholithiasis-status post ERCP End stage renal disease/Hemodialysis MWF/dialysis catheter in place for almost a year/RUE AVF not working for about a year. Atrial fibrillation/Eliquis on hold Chronic obstructive pulmonary disease Essential hypertension/dyslipidemia PLAN/RECOMMENDATIONS: Thank you for asking us to see Alexa Fuentes, I recommend the following: Follow blood cultures here and at [facility] Continue Rocephin 2 GM IV daily Continue Flagyl 500 mg IV Q8H Awaiting evaluation on 06/09 for possible cholecystectomy Please call [facility] laboratory to have then fax final blood cultures results when done. Consider JARED for evaluation of endocarditis Pantera Dc MD saw and examined patient, verified hx and PE, read all radiographic studies, reviewed labs and micro data, and formulated dx, plan for treatment and all medical decision making. Vivek Rojas PA-C for Pantera Dc MD This visit included the following complex service elements: Complex medical decision-making associated with antimicrobial prescribing. In-depth chart review with high level synthesis for complex diagnoses. Managed infection treatment protocol associated with transitions of care for this complex patient. Counseled patients, family members, and/or caregivers regarding antimicrobial stewardship and antibiotic resistance. Pantera Dc MD 06/08/2025 22:11 EDT * Kiran Tim MD - 06/08/2025 3:11 PM EDTAssociated Order(s): IP CONSULT TO GENERAL SURGERY General Surgery Consultation Note Date of Service: 06/08/2025 Alexa Fuentes [id number] Referring Provider: Berkley Ralph* Location of Consult: Inpatient Reason for Consultation: Choledocholithiasis History of Present Illness: I am seeing, Alexa Hodgesett, in consultation at request of Berkley Ralph* regarding choledocholithiasis. He is a 74-year-old gentleman with history of hypertension, hyperlipidemia, COPD, atrial fibrillation on Eliquis, and end-stage renal disease on hemodialysis who was transferred to [facility] due to concern for altered mental status. He was admitted to the hospital medicine team and has been treated for encephalopathy as well as concern for sepsis. He was evaluated by the stroke service and there was concern for a small acute infarct. He was recommended to continue on anticoagulation as well as aspirin and a statin. His encephalopathy improved, however there was concern for ongoing infectious source related to pneumonia versus intra-abdominal source. He was found to have elevated liver function test. Imaging demonstrated findings of choledocholithiasis and he was evaluated by the gastroenterology service and underwent ERCP today. The patient was seen in dialysis this afternoon and tells me that he does feel nauseous since his ERCP procedure. He reports some mild generalized upper abdominal pain. He tells me that he feels rougher than hell . He denies any prior abdominal surgeries. He is on anticoagulation with Eliquis but has not had this last 2 days.. Problems Addressed this Visit Gastrointestinal Abdominal Choledocholithiasis - Primary Relevant Medications sodium chloride 0.9 % infusion 40 mL sodium chloride 0.9 % infusion 40 mL sennosides-docusate (PERICOLACE) 8.6-50 MG per tablet 2 tablet polyethylene glycol (MIRALAX) packet 17 g bisacodyl (DULCOLAX) EC tablet 5 mg bisacodyl (DULCOLAX) suppository 10 mg ondansetron (ZOFRAN) injection 4 mg cefTRIAXone (ROCEPHIN) 2,000 mg in sodium chloride 0.9 % 100 mL MBP pantoprazole (PROTONIX) 40 MG EC tablet loperamide (IMODIUM) 2 MG capsule ondansetron (ZOFRAN) 4 MG tablet pantoprazole (PROTONIX) EC tablet 40 mg metroNIDAZOLE (FLAGYL) IVPB 500 mg loperamide (IMODIUM) capsule 2 mg (Completed) Other Relevant Orders Ambulatory referral for Screening EGD Neuro * (Principal) Occipital stroke Relevant Medications aspirin chewable tablet 81 mg aspirin suppository 300 mg nitroglycerin (NITROSTAT) SL tablet 0.4 mg Magnesium Standard Dose Replacement - Follow Nurse / BPA Driven Protocol midodrine (PROAMATINE) 5 MG tablet atorvastatin (LIPITOR) 80 MG tablet apixaban (ELIQUIS) 2.5 MG tablet tablet atorvastatin (LIPITOR) tablet 80 mg apixaban (ELIQUIS) tablet 2.5 mg Other Relevant Orders Ambulatory Referral to Neurology Diagnoses Codes Comments Choledocholithiasis - Primary ICD-10-CM: K80.50 ICD-9-CM: 574.50 Occipital stroke ICD-10-CM: I63.9 ICD-9-CM: 434.91 PMHx: Past Medical History: Diagnosis Date COPD (chronic obstructive pulmonary disease) ESRD (end stage renal disease) on dialysis Hyperlipidemia Hypertension Stroke Past Surgical History: Past Surgical History: COLONOSCOPY KNEE SURGERY Allergies: No Known Allergies Medications: No current facility-administered medications on file prior to encounter. Current Outpatient Medications on File Prior to Encounter Medication Sig Dispense Refill acetaminophen (TYLENOL) 500 MG tablet Take 2 tablets by mouth 4 (Four) Times a Day As Needed for Mild Pain. amiodarone (PACERONE) 200 MG tablet Take 1 tablet by mouth 2 (Two) Times a Day. apixaban (ELIQUIS) 2.5 MG tablet tablet Take 1 tablet by mouth Every 12 (Twelve) Hours. atorvastatin (LIPITOR) 80 MG tablet Take 1 tablet by mouth Every Night. B Fyrrzmm-Q-Iqkbu Acid (CHRISTINE-CLAUDE PO) Take 1 tablet by mouth Daily. benzonatate (TESSALON) 100 MG capsule Take 1 capsule by mouth 3 (Three) Times a Day As Needed for Cough. calcium acetate (PHOS BINDER,) 667 MG capsule capsule Take 1 capsule by mouth 3 (Three) Times a Day. cetirizine (zyrTEC) 10 MG tablet Take 1 tablet by mouth Every Night. fluticasone (VERAMYST) 27.5 MCG/SPRAY nasal spray Administer 2 sprays into the nostril(s) as directed by provider Every Night. guaiFENesin (MUCINEX) 600 MG 12 hr tablet Take 1 tablet by mouth 2 (Two) Times a Day. 30-600mg 1 tablet twice daily between 4731-6335 loperamide (IMODIUM) 2 MG capsule Take 1 capsule by mouth 4 (Four) Times a Day As Needed for Diarrhea. Menthol (Cough Drops) 5.8 MG lozenge Dissolve 1 lozenge in the mouth Every 4 (Four) Hours As Needed(as needed). menthol-zinc oxide ([place]) 0.44-20.625 % ointment ointment Apply 1 Application topically to the appropriate area as directed Daily. Cleanse periwound/sacrum, with NS and apply ointment to periwound and cover with ABD midodrine (PROAMATINE) 5 MG tablet Take 2 tablets by mouth 3 (Three) Times a Week. Mon, Wed, Sat between 7021-2867 montelukast (SINGULAIR) 10 MG tablet Take 1 tablet by mouth Every Night. ondansetron (ZOFRAN) 4 MG tablet Take 1 tablet by mouth 3 (Three) Times a Day As Needed for Nausea or Vomiting. pantoprazole (PROTONIX) 40 MG EC tablet Take 1 tablet by mouth Daily. promethazine-dextromethorphan (PROMETHAZINE-DM) 6.25-15 MG/5ML syrup Take 5 mL by mouth 4 (Four) Times a Day As Needed for Cough. Protein (ProSource No Carb) liquid Take 30 mL by mouth Daily. traZODone (DESYREL) 100 MG tablet Take 1 tablet by mouth Every Night. vitamin B-12 (CYANOCOBALAMIN) 1000 MCG tablet Take 1 tablet by mouth Daily. Zinc Sulfate 220 (50 Zn) MG tablet Take 1 tablet by mouth Daily. Current Facility-Administered Medications: acetaminophen (TYLENOL) tablet 650 mg, 650 mg, Oral, Q4H PRN, 650 mg at 06/08/25 0330 OR acetaminophen (TYLENOL) 160 MG/5ML oral solution 650 mg, 650 mg, Oral, Q4H PRN OR acetaminophen (TYLENOL) suppository 650 mg, 650 mg, Rectal, Q4H PRN, Kishore Foote MD albumin human 25 % IV SOLN 12.5 g, 12.5 g, Intravenous, PRN, Rehan Lincoln MD, 12.5 g at 06/08/25 1507 amiodarone (PACERONE) tablet 200 mg, 200 mg, Oral, BID, Kishore Foote MD, 200 mg at 06/07/252105 [Held by provider] apixaban (ELIQUIS) tablet 2.5 mg, 2.5 mg, Oral, Q12H, Krystal Herzog MD aspirin chewable tablet 81 mg, 81 mg, Oral, Daily OR aspirin suppository 300 mg, 300 mg, Rectal, Daily, Kishore Foote MD atorvastatin (LIPITOR) tablet 80 mg, 80 mg, Oral, Nightly, Kishore Foote MD, 80 mg at 06/07/252105 sennosides-docusate (PERICOLACE) 8.6-50 MG per tablet 2 tablet, 2 tablet, Oral, BID PRN AND polyethylene glycol (MIRALAX) packet 17 g, 17 g, Oral, Daily PRN AND bisacodyl (DULCOLAX) EC tablet5 mg, 5 mg, Oral, Daily PRN AND bisacodyl (DULCOLAX) suppository 10 mg, 10 mg, Rectal, Daily PRN, Kishore Foote MD Calcium Replacement - Follow Nurse / BPA Driven Protocol, , Not Applicable, PRN, Kishore Foote MD cefTRIAXone (ROCEPHIN) 2,000 mg in sodium chloride 0.9 % 100 mL MBP, 2,000 mg, Intravenous, Q24H, Kishore Foote MD, Last Rate: 200 mL/hr at 06/08/25 0549, 2,000 mg at 06/08/25 0549 guaiFENesin (MUCINEX) 12 hr tablet 600 mg, 600 mg, Oral, Q12H, Kishore Foote MD, 600 mg at 06/07/252105 ipratropium-albuterol (DUO-NEB) nebulizer solution 3 mL, 3 mL, Nebulization, 4x Daily - RT, Kishore Foote MD, 3 mL at 06/07/252015 ipratropium-albuterol (DUO-NEB) nebulizer solution 3 mL, 3 mL, Nebulization, Q6H PRN, Kishore Foote MD Magnesium Standard Dose Replacement - Follow Nurse / BPA Driven Protocol, , Not Applicable, PRQamar Shukla John A, MD metroNIDAZOLE (FLAGYL) IVPB 500 mg, 500 mg, Intravenous, Q8H, Kishore Foote MD, Last Rate: 200 mL/hr at 06/08/25 0449, 500 mg at 06/08/25 0449 nitroglycerin (NITROSTAT) SL tablet 0.4 mg, 0.4 mg, Sublingual, Q5 Min PRN, Kishore Foote MD ondansetron (ZOFRAN) injection 4 mg, 4 mg, Intravenous, Q6H PRN, Kishore Foote MD, 4 mg at 06/08/25 1351 pantoprazole (PROTONIX) EC tablet 40 mg, 40 mg, Oral, Daily, Kishore Foote MD, 40 mg at 06/07/25 1839 Phosphorus Replacement - Follow Nurse / BPA Driven Protocol, , Not Applicable, PRNQamar John A, MD Potassium Replacement - Follow Nurse / BPA Driven Protocol, , Not Applicable, Qamar EVERETT John A, MD sodium chloride 0.9 % flush 10 mL, 10 mL, Intravenous, Q12H, Kishore Foote MD, 10 mL at 06/07/252107 sodium chloride 0.9 % flush 10 mL, 10 mL, Intravenous, PRN, Kishore Foote MD sodium chloride 0.9 % flush 10 mL, 10 mL, Intravenous, Q12H, Kishore Foote MD, 10 mL at 06/07/252107 sodium chloride 0.9 % flush 10 mL, 10 mL, Intravenous, PRNQamar John A, MD sodium chloride 0.9 % infusion 40 mL, 40 mL, Intravenous, PRNQamar John A, MD sodium chloride 0.9 % infusion 40 mL, 40 mL, Intravenous, PRNQamar John A, MD Family History: Family History Problem Relation Age of Onset Cancer Father Social History: Pt lives in [facility]. Tobacco use: Denies EtOH use : Denies Illicit drug use: Denies Review of Systems: Constitutional: No fevers, chills or malaise Eyes: Denies visual changes Cardiovascular: Denies chest pain, palpitations Pulmonary: Denies cough or shortness of breath Abdominal/ GI: See HPI Genitourinary: Denies dysuria or hematuria Musculoskeletal: Denies any but chronic joint aches, pains or deformities Psychiatric: No recent mood changes Neurologic: No paresthesias or loss of function BP (!) 86/50 Pulse 56 Temp 95.9 ??F (35.5 ??C) (Axillary) Resp 16 Ht 193 cm (75.98 ) Wt 134 kg (295 lb 6.7 oz) SpO2 96% BMI 35.97 kg/m?? Body mass index is 35.97 kg/m??. Gen: Awake, alert, resting in bed, no obvious distress, does answer questions slowly but appropriately, currently on hemodialysis Head: Normocephalic, atraumatic. Eyes: Pupils equal, round, react to light and accommodation. Mouth: Oral mucosa without lesions, Neck: No masses, lymphadenopathy or carotid bruits bilaterally CV: Rhythm and rate regular, no murmurs, rubs or gallops, left chest hemodialysis catheter in place Lungs: Clear to auscultation bilaterally, not labored on room air Abdomen: Obese, soft, mild generalized tenderness to palpation in the upper abdomen that is nonfocal, no obvious scars Groin : No obvious hernias bilaterally Extremities: No cyanosis, clubbing or edema bilaterally Lymphatics: No abnormal lymphadenopathy appreciated Neurologic: No gross deficits CBC Results from last 7 days Lab Units 06/08/25 0848 WBC 10*3/mm3 10.13 HEMOGLOBIN g/dL 8.6* HEMATOCRIT % 27.7* PLATELETS 10*3/mm3 195 CMP Results from last 7 days Lab Units 06/08/25 0848 SODIUM mmol/L 137 POTASSIUM mmol/L 5.1 CHLORIDE mmol/L 93* CO2 mmol/L 24.1 BUN mg/dL 80.3* CREATININE mg/dL 8.13* CALCIUM mg/dL 8.8 BILIRUBIN mg/dL 0.6 ALK PHOS U/L 111 ALT (SGPT) U/L 982* AST (SGOT) U/L 730* GLUCOSE mg/dL 66 Radiology Imaging Results (Last 72 Hours) Procedure Component Value Units Date/Time FL ERCP pancreatic and biliary ducts - In process [[id number]] Resulted: 06/08/25 1049 Updated: 06/08/25 1252 This result has not been signed. Information might be incomplete. 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 FEES - Fiberoptic Endo Eval Swallow [[id number]] Resulted: 06/07/25 165 Updated: 06/07/251658 Narrative: This procedure was auto-finalized with no dictation required. MRI abdomen wo contrast mrcp [[id number]] Collected: 06/07/25 1008 Updated: 06/07/25 1029 Narrative: MRI ABDOMEN WO CONTRAST MRCP Date of Exam: 06/07/2025 9:28 AM EDT Indication: CBD dilation with choledocholithiasis. Comparison: CT abdomen pelvis 06/06/2025. Technique: Routine multiplanar/multisequence images of the abdomen were obtained with MRCP sequences without contrast administration. Findings: Motion-degraded exam. Left lower lobe consolidation with trace left pleural effusion. Heart appears enlarged. No morphologic changes of chronic liver disease. No evidence of hepatic steatosis. No evidence of focal liver lesion on this noncontrast exam. Cholelithiasis. Mild gallbladder distention without wallthickening or pericholecystic fluid. Intra and extrahepatic biliary ductal dilatation to the level of the ampulla with common bile duct measuring 15 mm. 7 mm ovoid filling defect within the lower common bile duct consistent with choledocholithiasis. No pancreatic ductal dilatation. No findings of acute pancreatitis. Spleen is normal in size. Bilateral renal atrophy. Subcentimeter hemorrhagic/proteinaceous foci along the left kidney may represent a hemorrhagic/proteinaceous cyst, though incompletely characterized on this noncontrast exam.Otherwise there are multiple bilateral renal cysts are overall simple-appearing. No hydronephrosis. No dilated bowel loops within the [id number]. No free fluid in the abdomen. No pathologically enlarged lymph nodes. No abdominal aortic aneurysm. Atherosclerosis. No body wall abnormality. Multilevel spondylosis. No acute or suspicious osseous abnormalities evident on this noncontrast exam. Impression: Impression: Choledocholithiasis with a 7 mm stone in the lower common bile duct. Intra and extrahepatic biliaryductal dilatation with common bile duct measuring 15 mm. Correlate with serum bilirubin and consider ERCP. Cholelithiasis without evidence of acute cholecystitis. Left lower lobe consolidation with trace left pleural effusion, suggestive of pneumonia. Chronic/ancillary findings as above. Electronically Signed: Preet Crowley MD 06/07/2025 10:26 AM EDT Workstation ID: [id number] MRI Brain Without Contrast [[id number]] Collected: 06/07/25 1013 Updated: 06/07/25 1026 Narrative: MRI BRAIN WO CONTRAST Date of Exam: 06/07/2025 9:17 AM EDT Indication: Stroke, follow up Left occipital stroke seen on CT scan. Comparison: Head CT dated 06/06/2025 Technique: Routine multiplanar/multisequence sequence images of the brain were obtained without contrast administration. FINDINGS: There is a tiny focus of DWI hyperintense signal within the left occipital lobe (series 5, image 86), concerning for tiny acute infarct. Questionable additional punctate cortical infarct within the left centrum semiovale (series 5, image 96). Foci of T2/FLAIR signal hyperintensity are seen within the bilateral hemispheric white matter. There is cortical atrophy with prominent sulcation and ventriculomegaly. There is encephalomalacia involving the bilateral cerebellum and left occipital lobe, likely related to remote infarcts. Midline structures appear unremarkable. No significant mass effect, intracranial hemorrhage, or hydrocephalus is identified. The visualized intracranial flow- voids appear unremarkable. There is pansinus mucosal thickening with complete opacification of the left maxillary sinus. Bilateral mastoid effusions are also seen. Bilateral lens prostheses noted. The visualized superficial soft tissues and cervical spine demonstrate no significant abnormality. Impression: 1.Findings concerning for tiny acute infarct within the left occipital lobe (series 5, image 86). Questionable additional punctate cortical acute/subacute infarct within the left centrum semiovale (series 5, image 96). 2.Additional findings compatible with chronic microvascular ischemic change and diffuse cortical atrophy. 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 3.Pansinus mucosal thickening and bilateral mastoid effusions. Electronically Signed: Vimal Lares MD 06/07/2025 10:22 AM EDT Workstation ID: [id number] CT Outside Films [[id number]] Resulted: 06/06/252046 Updated: 06/06/252046 Narrative: This procedure was auto-finalized with no dictation required. CT Outside Abd/Pelvis [[id number]] Resulted: 06/06/252046 Updated: 06/06/252046 Narrative: This procedure was auto-finalized with no dictation required. CT Outside Head [[id number]] Resulted: 06/06/252046 Updated: 06/06/252046 Narrative: This procedure was auto-finalized with no dictation required. CT Outside Films [[id number]] Resulted: 06/06/252046 Updated: 06/06/252046 Narrative: This procedure was auto-finalized with no dictation required. CT Outside Neck [[id number]] Resulted: 06/06/252046 Updated: 06/06/252046 Narrative: This procedure was auto-finalized with no dictation required. Results Review: I have personally reviewed all of the recent lab and imaging results available at this time. Afebrile with stable vital signs Labs demonstrated normal white blood cell count of 10.1. He is anemic with a hemoglobin of 8.6. Platelets are 195. Liver function tests are elevated with an AST of 730, ALT of 92, total bilirubin of 0.6. I have personally reviewed an MRI which demonstrated biliary dilation with a 15 mm common bile ductas well as choledocholithiasis. There is obvious cholelithiasis I have reviewed an outside CT chest which demonstrates a left sided pneumonia. The gallbladder is visible within the captured portions of the upper abdomen and this demonstrates cholelithiasis Assessment: Mr. Fuentes is a 74-year-old gentleman with history of hypertension, hyperlipidemia, COPD, atrial fibrillation on Eliquis, and end-stage renal disease on hemodialysis admitted with concern for strokeand choledocholithiasis who I have been asked to evaluate for cholecystectomy. He underwent ERCP with clearance of his duct today. He certainly has risk factors for surgery related to his underlying medical comorbidities, however he does not appear to be at prohibitive risk at this point. I had a long discussion with the patient at the bedside as well as with his son over the telephone. I discussed the risk, benefits, and alternatives to procedure. I have recommended cholecystectomy to prevent recurrent episodes of choledocholithiasis. The patient tells me that he wishes to proceed forward with surgery, and the son also tells me that he tentatively wishes to proceed forward although he wants to discuss with an additional family member. We will make plans for possible cholecystectomy tomorr ow, however this will be at discretion of the covering surgeon and his family regarding a final operative decision Plan: - Keep n.p.o. after midnight - Possible cholecystectomy tomorrow at the discretion of the on-call surgeon as well as pending a final family decision I discussed the patient's findings and my recommendations with the patient and/or family, as well as the primary team Kiran Tim MD 06/08/25 15:11 EDT Part of this note may be an electronic area coordinator/translation of spoken language to printed textusing the BOLD Guidanceation System. * Char Ospina RN - 06/08/2025 11:02 AM EDTAssociated Order(s): IP CONSULT TO HANDLE ROUNDER OPERATOR Chart review for clinical document improvement educator consult. At the time of this review patient A1c has not resulted, they have no noted history of diabetes andno home medications noted for treatment of diabetes. At this time we do not feel the patient would benefit from diabetes education. Thank you for this consult, should patient needs change please re consult us. * Bell Leach PA - 06/07/2025 2:44 PM EDTAssociated Order(s): IP CONSULT TO GASTROENTEROLOGY [facility] Gastroenterology Consult Referring Provider: Madisyn Lopez DO PCP: Jeffrey Sun MD Reason for Consultation: Choledocholithiasis Chief complaint: Altered mental status, leaning to the right History of present illness: Alexa Fuentes is a 74 y.o. male who is admitted with acute/subacute left occipital stroke. He presented with altered mental status, unresponsiveness and leaning to the right. He has past medical history of end stage renal disease on hemodialysis and atrial fibrillation on Eliquis. GI is consulted for evidence of choledocholithiasis and elevated transaminases. He denies any abdominal pain, nausea nor vomiting. He denies any fever nor chills. He had evidence of choledocholithiasis on previous imaging in 2023 though no ductal dilation at that time. Allergies: Patient has no known allergies. Scheduled Meds: amiodarone, 200 mg, Oral, BID [Held by provider] apixaban, 2.5 mg, Oral, Q12H aspirin, 81 mg, Oral, Daily Or aspirin, 300 mg, Rectal, Daily atorvastatin, 80 mg, Oral, Nightly cefTRIAXone, 2,000 mg, Intravenous, Q24H guaiFENesin, 600 mg, Oral, Q12H ipratropium-albuterol, 3 mL, Nebulization, 4x Daily - RT pharmacy consult - MTM, , Not Applicable, Daily metroNIDAZOLE, 500 mg, Intravenous, Q8H pantoprazole, 40 mg, Oral, Daily sodium chloride, 10 mL, Intravenous, Q12H sodium chloride, 10 mL, Intravenous, Q12H Infusions: PRN Meds: acetaminophen OR acetaminophen OR acetaminophen senna-docusate sodium AND polyethylene glycol AND bisacodyl AND bisacodyl Calcium Replacement - Follow Nurse / BPA Driven Protocol ipratropium-albuterol Magnesium Standard Dose Replacement - Follow Nurse / BPA Driven Protocol nitroglycerin ondansetron Phosphorus Replacement - Follow Nurse / BPA Driven Protocol Potassium Replacement - Follow Nurse / BPA Driven Protocol sodium chloride sodium chloride sodium chloride sodium chloride Home Meds: Medications Prior to Admission Medication Sig Dispense Refill Last Dose/Taking acetaminophen (TYLENOL) 500 MG tablet Take 2 tablets by mouth 4 (Four) Times a Day As Needed for Mild Pain. Unknown amiodarone (PACERONE) 200 MG tablet Take 1 tablet by mouth 2 (Two) Times a Day. Unknown apixaban (ELIQUIS) 2.5 MG tablet tablet Take 1 tablet by mouth Every 12 (Twelve) Hours. Unknown atorvastatin (LIPITOR) 80 MG tablet Take 1 tablet by mouth Every Night. Unknown B Trxlrof-F-Azgfm Acid (CHRISTINE-CLAUDE PO) Take 1 tablet by mouth Daily. Unknown benzonatate (TESSALON) 100 MG capsule Take 1 capsule by mouth 3 (Three) Times a Day As Needed for Cough. Unknown calcium acetate (PHOS BINDER,) 667 MG capsule capsule Take 1 capsule by mouth 3 (Three) Times a Day. Unknown cetirizine (zyrTEC) 10 MG tablet Take 1 tablet by mouth Every Night. Unknown fluticasone (VERAMYST) 27.5 MCG/SPRAY nasal spray Administer 2 sprays into the nostril(s) as directed by provider Every Night. Unknown guaiFENesin (MUCINEX) 600 MG 12 hr tablet Take 1 tablet by mouth 2 (Two) Times a Day. 30-600mg 1 tablet twice daily between 6157-6777 Unknown loperamide (IMODIUM) 2 MG capsule Take 1 capsule by mouth 4 (Four) Times a Day As Needed for Diarrhea. Unknown Menthol (Cough Drops) 5.8 MG lozenge Dissolve 1 lozenge in the mouth Every 4 (Four) Hours As Needed(as needed). Unknown menthol-zinc oxide (Calasoothe) 0.44-20.625 % ointment ointment Apply 1 Application topically to the appropriate area as directed Daily. Cleanse periwound/sacrum, with NS and apply ointment to periwound and cover with ABD Unknown midodrine (PROAMATINE) 5 MG tablet Take 2 tablets by mouth 3 (Three) Times a Week. Mon, Wed, Sat between [id number] Unknown montelukast (SINGULAIR) 10 MG tablet Take 1 tablet by mouth Every Night. Unknown ondansetron (ZOFRAN) 4 MG tablet Take 1 tablet by mouth 3 (Three) Times a Day As Needed for Nausea or Vomiting. Unknown pantoprazole (PROTONIX) 40 MG EC tablet Take 1 tablet by mouth Daily. Unknown promethazine-dextromethorphan (PROMETHAZINE-DM) 6.25-15 MG/5ML syrup Take 5 mL by mouth 4 (Four) Times a Day As Needed for Cough. Unknown Protein (ProSource No Carb) liquid Take 30 mL by mouth Daily. Unknown traZODone (DESYREL) 100 MG tablet Take 1 tablet by mouth Every Night. Unknown vitamin B-12 (CYANOCOBALAMIN) 1000 MCG tablet Take 1 tablet by mouth Daily. Unknown Zinc Sulfate 220 (50 Zn) MG tablet Take 1 tablet by mouth Daily. Unknown ROS: Review of Systems Constitutional: Positive for fatigue. Respiratory: Negative. Cardiovascular: Negative. Gastrointestinal: Negative for abdominal pain, nausea and vomiting. Neurological: Positive for weakness. PAST MED HX: History reviewed. No pertinent past medical history. PAST SURG HX: Past Surgical History: Procedure Laterality Date COLONOSCOPY KNEE SURGERY Right FAM HX: Family History Problem Relation Age of Onset Cancer Father SOC HX: Social History Socioeconomic History Marital status: Tobacco Use Smoking status: Never Smokeless tobacco: Never Vaping Use Vaping status: Never Used Substance and Sexual Activity Alcohol use: Never Drug use: Never Sexual activity: Not Currently PHYSICAL EXAM BP 115/61 (BP Location: Left arm, Patient Position: Lying) Pulse 55 Temp 97.6 ??F (36.4 ??C) (Oral) Resp 18 Ht 193 cm (76 ) Wt 134 kg (295 lb 6.7 oz) SpO2 92% BMI 35.96 kg/m?? Wt Readings from Last 3 Encounters: 06/07/25 134 kg (295 lb 6.7 oz) ,body mass index is 35.96 kg/m??. Physical Exam Constitutional: General: He is not in acute distress. Appearance: He is obese. Cardiovascular: Rate and Rhythm: Normal rate and regular rhythm. Pulmonary: Effort: Pulmonary effort is normal. No respiratory distress. Abdominal: General: Bowel sounds are normal. Palpations: Abdomen is soft. Tenderness: There is no abdominal tenderness. Neurological: Mental Status: He is alert and oriented to person, place, and time. Results Review: I reviewed the patient's new clinical results. Lab Results Component Value Date WBC 18.26 (H) 06/07/2025 HGB 9.0 (L) 06/07/2025 HGB 8.6 (L) 03/31/2024 HGB 8.5 (L) 03/30/2024 HCT 28.1 (L) 06/07/2025 MCV 97.6 (H) 06/07/2025 PLT 120 (L) 06/07/2025 Lab Results Component Value Date INR 1.7 (H) 03/23/2024 INR 1.2 (H) 08/16/2022 Lab Results Component Value Date GLUCOSE 77 06/07/2025 BUN 52.4 (H) 06/07/2025 CREATININE 6.07 (H) 06/07/2025 EGFRIFNONA 37 (L) 01/14/2021 EGFRIFAFRI 45 (L) 01/14/2021 BCR 8.6 06/07/2025 NA 136 06/07/2025 K 5.0 06/07/2025 CO2 27.9 06/07/2025 CALCIUM 9.0 06/07/2025 ALBUMIN 3.0 (L) 06/07/2025 ALKPHOS 102 06/07/2025 BILITOT 0.9 06/07/2025 ALT 652 (H) 06/07/2025 AST 558 (H) 06/07/2025 ASSESSMENTS/PLANS Choledocholithiasis with interval biliary dilation from previous scan in 2023 Elevated transaminases, related likely to above. Total bilirubin and alk phos are normal. Late acute/subacute left occipital stroke Pneumonia >> Recommend ERCP for stone removal, possible tomorrow if stable. CT images personally reviewed which does show interval ductal dilation from previous. He denies any fever or chills to suggest cholangitis. Blood cultures are pending. >> NPO at midnight. May have a low residue diet today from GI standpoint if cleared from speech. >> Eliquis has been held I discussed the patient's findings and my recommendations with patient and his son whom is present at the bedside. RUDY Dawson 06/07/25 14:45 EDT Cosigned by Kishore Foote MD at 06/07/2025 3:11 PM EDT Associated attestation - Kishore Foote MD - 06/07/2025 3:11 PM EDT I have reviewed this documentation and agree. * Adelita Bueno MD - 06/07/2025 11:41 AM EDTAssociated Order(s): IP CONSULT TO PALLIATIVE CARE MD Palliative Care Initial Consult Attending Physician: Krystal Herzog MD Referring Provider: Rolan Muro Reason for Referral: assistance with clarification of goals of care Code Status: Code Status and Medical Interventions: No CPR (Do Not Attempt to Resuscitate); Limited Support; No intubation (DNI) Ordered at: 06/07/25 1137 Code Status (Patient has no pulse and is not breathing): No CPR (Do Not Attempt to Resuscitate) Medical Interventions (Patient has pulse or is breathing): Limited Support Medical Intervention Limits: No intubation (DNI) Level Of Support Discussed With: Patient Next of Kin (If No Surrogate) Advanced Directives: Advance Directive Status: Patient has advance directive, copy requested Family/Support: son Goals of Care: Goals of Care/Treatment Preferences: Treat but would not want CPR/Intubation HPI: 74 yo male from outside hospital where he presented with AMS and weakness. CT demonstrated L occipital CVA. Transferred for further eval. Was also noted to be hypoxic with elevated WBC. CT chest withgrohd glass opacities and abd with distended GB and ductal dilation. Further eval here demonstratedno areas for intervention for CVA. Abx initiated for pna and poss abd infection. MRIs pending at time seen. ROS: Denied abd pain Wanted something to eat(awaiting GI consult) Denied SOA. History reviewed. No pertinent past medical history. Past Surgical History: Procedure Laterality Date COLONOSCOPY KNEE SURGERY Right Social History Socioeconomic History Marital status: Tobacco Use Smoking status: Never Smokeless tobacco: Never Vaping Use Vaping status: Never Used Substance and Sexual Activity Alcohol use: Never Drug use: Never Sexual activity: Not Currently Family History Problem Relation Age of Onset Cancer Father No Known Allergies Current Facility-Administered Medications: acetaminophen (TYLENOL) tablet 650 mg, 650 mg, Oral, Q4H PRN OR acetaminophen (TYLENOL) 160 MG/5ML oral solution 650 mg, 650 mg, Oral, Q4H PRN OR acetaminophen (TYLENOL) suppository 650 mg, 650 mg, Rectal, Q4H PRN, Rolan Muro MD aspirin chewable tablet 81 mg, 81 mg, Oral, Daily OR aspirin suppository 300 mg, 300 mg, Rectal, Daily, Edita Guzman APRN sennosides-docusate (PERICOLACE) 8.6-50 MG per tablet 2 tablet, 2 tablet, Oral, BID PRN AND polyethylene glycol (MIRALAX) packet 17 g, 17 g, Oral, Daily PRN AND bisacodyl (DULCOLAX) EC tablet5 mg, 5 mg, Oral, Daily PRN AND bisacodyl (DULCOLAX) suppository 10 mg, 10 mg, Rectal, Daily PRN, Rolan Muro MD Calcium Replacement - Follow Nurse / BPA Driven Protocol, , Not Applicable, PRN, Rolan Muro MD cefTRIAXone (ROCEPHIN) 2,000 mg in sodium chloride 0.9 % 100 mL MBP, 2,000 mg, Intravenous, Q24H, Rolan Muro MD, Last Rate: 200 mL/hr at 06/07/25 0519, 2,000 mg at 06/07/25 0519 ipratropium-albuterol (DUO-NEB) nebulizer solution 3 mL, 3 mL, Nebulization, 4x Daily - RT, Rolan Muro MD, 3 mL at 06/07/25 0827 Magnesium Standard Dose Replacement - Follow Nurse / BPA Driven Protocol, , Not Applicable, PRNJina Mohammed A, MD Med rec consult, , Not Applicable, Daily, Zuleyma Pina, [facility] metroNIDAZOLE (FLAGYL) IVPB 500 mg, 500 mg, Intravenous, Q8H, Rolan Muro MD nitroglycerin (NITROSTAT) SL tablet 0.4 mg, 0.4 mg, Sublingual, Q5 Min PRN, Rolan Muro MD ondansetron (ZOFRAN) injection 4 mg, 4 mg, Intravenous, Q6H PRN, Rolan Muro MD Phosphorus Replacement - Follow Nurse / BPA Driven Protocol, , Not Applicable, Jina EVERETT MohammedA, MD Potassium Replacement - Follow Nurse / BPA Driven Protocol, , Not Applicable, Jina EVERETT Mohammed A, MD sodium chloride 0.9 % flush 10 mL, 10 mL, Intravenous, Q12H, Edita Guzman APRN sodium chloride 0.9 % flush 10 mL, 10 mL, Intravenous, PRN, Edita Guzman APRN sodium chloride 0.9 % flush 10 mL, 10 mL, Intravenous, Q12H, Rolan Muro MD, 10 mL at 06/07/25 0243 sodium chloride 0.9 % flush 10 mL, 10 mL, Intravenous, PRN, Rolan Muro MD sodium chloride 0.9 % infusion 40 mL, 40 mL, Intravenous, PRN, Edita Guzman APRN sodium chloride 0.9 % infusion 40 mL, 40 mL, Intravenous, PRN, Rolan Muro MD Palliative Performance Scale Score: 40 BP 121/46 (BP Location: Left arm, Patient Position: Lying) Pulse 54 Temp 97.1 ??F (36.2 ??C) (Axillary) Resp 18 Ht 193 cm (76 ) Wt 134 kg (295 lb 6.7 oz) SpO2 95% BMI 35.96 kg/m?? No intake or output data in the 24 hours ending 06/07/25 1141 Physical Exam: General Appearance: Alert, cooperative, NAD HEENT: NC/AT, EOMI, anicteric, MMM, face relaxed Neck: supple, trachea midline, no JVD Lungs: CTA bilat, diminished in bases; respirations regular, even and unlabored Heart: RRR, normal S1 and S2, no M/R/G Abdomen: Normal bowel sounds, soft, nontender, nondistended G/U: Deferred MSK/Extremities: No clubbing , cyanosis or edema, No wasting Pulses: Pulses palpable and equal bilaterally Skin: Warm, dry, no mottling Neurologic: A/Ox3, cooperative, moves extremities x 4, no tremor, nl Tone, speech clear Psych: Calm, appropriate Labs: Results from last 7 days Lab Units 06/07/25 0057 WBC 10*3/mm3 18.26* HEMOGLOBIN g/dL 9.0* HEMATOCRIT % 28.1* PLATELETS 10*3/mm3 120* Results from last 7 days Lab Units 06/07/25 0057 SODIUM mmol/L 136 POTASSIUM mmol/L 5.0 CHLORIDE mmol/L 93* CO2 mmol/L 27.9 BUN mg/dL 52.4* CREATININE mg/dL 6.07* CALCIUM mg/dL 9.0 BILIRUBIN mg/dL 0.9 ALK PHOS U/L 102 ALT (SGPT) U/L 652* AST (SGOT) U/L 558* GLUCOSE mg/dL 77 Imaging Results (Last 72 Hours) Procedure Component Value Units Date/Time MRI abdomen wo contrast mrcp [[id number]] Collected: 06/07/25 1008 Updated: 06/07/25 1029 Narrative: MRI ABDOMEN WO CONTRAST MRCP Date of Exam: 06/07/2025 9:28 AM EDT Indication: CBD dilation with choledocholithiasis. Comparison: CT abdomen pelvis 06/06/2025. Technique: Routine multiplanar/multisequence images of the abdomen were obtained with MRCP sequences without contrast administration. Findings: Motion-degraded exam. Left lower lobe consolidation with trace left pleural effusion. Heart appears enlarged. No morphologic changes of chronic liver disease. No evidence of hepatic steatosis. No evidence of focal liver lesion on this noncontrast exam. Cholelithiasis. Mild gallbladder distention without wallthickening or pericholecystic fluid. Intra and extrahepatic biliary ductal dilatation to the level of the ampulla with common bile duct measuring 15 mm. 7 mm ovoid filling defect within the lower common bile duct consistent with choledocholithiasis. No pancreatic ductal dilatation. No findings of acute pancreatitis. Spleen is normal in size. Bilateral renal atrophy. Subcentimeter hemorrhagic/proteinaceous foci along the left kidney may represent a hemorrhagic/proteinaceous cyst, though incompletely characterized on this noncontrast exam.Otherwise there are multiple bilateral renal cysts are overall simple-appearing. No hydronephrosis. No dilated bowel loops within the [id number]. No free fluid in the abdomen. No pathologically enlarged lymph nodes. No abdominal aortic aneurysm. Atherosclerosis. No body wall abnormality. Multilevel spondylosis. No acute or suspicious osseous abnormalities evident on this noncontrast exam. Impression: Impression: Choledocholithiasis with a 7 mm stone in the lower common bile duct. Intra and extrahepatic biliaryductal dilatation with common bile duct measuring 15 mm. Correlate with serum bilirubin and consider ERCP. Cholelithiasis without evidence of acute cholecystitis. Left lower lobe consolidation with trace left pleural effusion, suggestive of pneumonia. Chronic/ancillary findings as above. Electronically Signed: Preet Crowley MD 06/07/2025 10:26 AM EDT Workstation ID: [id number] MRI Brain Without Contrast [[id number]] Collected: 06/07/25 1013 Updated: 06/07/25 1026 Narrative: MRI BRAIN WO CONTRAST Date of Exam: 06/07/2025 9:17 AM EDT Indication: Stroke, follow up Left occipital stroke seen on CT scan. Comparison: Head CT dated 06/06/2025 Technique: Routine multiplanar/multisequence sequence images of the brain were obtained without contrast administration. FINDINGS: There is a tiny focus of DWI hyperintense signal within the left occipital lobe (series 5, image 86), concerning for tiny acute infarct. Questionable additional punctate cortical infarct within the left centrum semiovale (series 5, image 96). Foci of T2/FLAIR signal hyperintensity are seen within the bilateral hemispheric white matter. There is cortical atrophy with prominent sulcation and ventriculomegaly. There is encephalomalacia involving the bilateral cerebellum and left occipital lobe, likely related to remote infarcts. Midline structures appear unremarkable. No significant mass effect, intracranial hemorrhage, or hydrocephalus is identified. The visualized intracranial flow- voids appear unremarkable. There is pansinus mucosal thickening with complete opacification of the left maxillary sinus. Bilateral mastoid effusions are also seen. Bilateral lens prostheses noted. The visualized superficial soft tissues and cervical spine demonstrate no significant abnormality. Impression: 1.Findings concerning for tiny acute infarct within the left occipital lobe (series 5, image 86). Questionable additional punctate cortical acute/subacute infarct within the left centrum semiovale (series 5, image 96). 2.Additional findings compatible with chronic microvascular ischemic change and diffuse cortical atrophy. 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 3.Pansinus mucosal thickening and bilateral mastoid effusions. Electronically Signed: Vimal Lares MD 06/07/2025 10:22 AM EDT Workstation ID: [id number] CT Outside Films [[id number]] Resulted: 06/06/252046 Updated: 06/06/252046 Narrative: This procedure was auto-finalized with no dictation required. CT Outside Abd/Pelvis [[id number]] Resulted: 06/06/252046 Updated: 06/06/252046 Narrative: This procedure was auto-finalized with no dictation required. CT Outside Head [[id number]] Resulted: 06/06/252046 Updated: 06/06/252046 Narrative: This procedure was auto-finalized with no dictation required. CT Outside Films [[id number]] Resulted: 06/06/252046 Updated: 06/06/252046 Narrative: This procedure was auto-finalized with no dictation required. CT Outside Neck [[id number]] Resulted: 06/06/252046 Updated: 06/06/252046 Narrative: This procedure was auto-finalized with no dictation required. Diagnostics: No valid procedures specified. A: Occipital stroke Impression: Occipital CVA PNA ESRD Choledocholithiasis Acute hypoxic resp failure Elevated AST and ALT Symptoms: Debility P: Met with pt and son. Reviewed recent events. Awaiting GI eval when seen. Decision made for no CPR and no intubation. Order entered. Will monitor for further needs. Thank you for this consult and allowing us to participate in patient's plan of care. Palliative Care Team will continue to follow patient. Adelita Bueno MD, 06/07/2025, 11:41 EDT * Rehan Lincoln MD - 06/07/2025 9:31 AM EDTAssociated Order(s): IP CONSULT TO NEPHROLOGY Referring Provider: Dr. Herzog Reason for Consultation: ESRD management Subjective Chief complaint altered mental status History of present illness: 74-year-old with history of ESRD on HD MWF at [facility] last dialyzed yesterday. Patient was transferred from correction due to lethargy, confusion, weakness, initially transferred to [facility]. CT head revealed acute/subacute left occipital lobe ischemia, CTA showed nolarge vessel occlusion. Patient has been on Eliquis prior to this. He was later transferred to [facility]. Recent labs showed a high WBC 21k, CT abdomen showed cholelithiasis. PMH included COPD, HLD, HTN, anemia of chronic kidney disease. Patient has a tunneled catheter in place for dialysis. Renal isbeen consulted for further treatment. He denies any epistaxis, hemoptysis, hematemesis, gross hematuria. No nausea or vomiting. History History reviewed. No pertinent past medical history., Past Surgical History: Procedure Laterality Date COLONOSCOPY KNEE SURGERY Right , Family History Problem Relation Age of Onset Cancer Father , Social History Socioeconomic History Marital status: Tobacco Use Smoking status: Never Smokeless tobacco: Never Vaping Use Vaping status: Never Used Substance and Sexual Activity Alcohol use: Never Drug use: Never Sexual activity: Not Currently E-cigarette/Vaping E-cigarette/Vaping Use Never User E-cigarette/Vaping Substances E-cigarette/Vaping Devices , Medications Prior to Admission Medication Sig Dispense Refill Last Dose/Taking acetaminophen (TYLENOL) 500 MG tablet Take 2 tablets by mouth 4 (Four) Times a Day As Needed for Mild Pain. Unknown amiodarone (PACERONE) 200 MG tablet Take 1 tablet by mouth 2 (Two) Times a Day. Unknown apixaban (ELIQUIS) 2.5 MG tablet tablet Take 1 tablet by mouth Every 12 (Twelve) Hours. Unknown atorvastatin (LIPITOR) 80 MG tablet Take 1 tablet by mouth Every Night. Unknown B Tzwztbn-O-Rlszg Acid (CHRISTINE-CLAUDE PO) Take 1 tablet by mouth Daily. Unknown benzonatate (TESSALON) 100 MG capsule Take 1 capsule by mouth 3 (Three) Times a Day As Needed for Cough. Unknown calcium acetate (PHOS BINDER,) 667 MG capsule capsule Take 1 capsule by mouth 3 (Three) Times a Day. Unknown cetirizine (zyrTEC) 10 MG tablet Take 1 tablet by mouth Every Night. Unknown fluticasone (VERAMYST) 27.5 MCG/SPRAY nasal spray Administer 2 sprays into the nostril(s) as directed by provider Every Night. Unknown guaiFENesin (MUCINEX) 600 MG 12 hr tablet Take 1 tablet by mouth 2 (Two) Times a Day. 30-600mg 1 tablet twice daily between 7225-4480 Unknown loperamide (IMODIUM) 2 MG capsule Take 1 capsule by mouth 4 (Four) Times a Day As Needed for Diarrhea. Unknown Menthol (Cough Drops) 5.8 MG lozenge Dissolve 1 lozenge in the mouth Every 4 (Four) Hours As Needed(as needed). Unknown menthol-zinc oxide (Calasoothe) 0.44-20.625 % ointment ointment Apply 1 Application topically to the appropriate area as directed Daily. Cleanse periwound/sacrum, with NS and apply ointment to periwound and cover with ABD Unknown midodrine (PROAMATINE) 5 MG tablet Take 2 tablets by mouth 3 (Three) Times a Week. Mon, Wed, Sat between 3872-7471 Unknown montelukast (SINGULAIR) 10 MG tablet Take 1 tablet by mouth Every Night. Unknown ondansetron (ZOFRAN) 4 MG tablet Take 1 tablet by mouth 3 (Three) Times a Day As Needed for Nausea or Vomiting. Unknown pantoprazole (PROTONIX) 40 MG EC tablet Take 1 tablet by mouth Daily. Unknown promethazine-dextromethorphan (PROMETHAZINE-DM) 6.25-15 MG/5ML syrup Take 5 mL by mouth 4 (Four) Times a Day As Needed for Cough. Unknown Protein (ProSource No Carb) liquid Take 30 mL by mouth Daily. Unknown traZODone (DESYREL) 100 MG tablet Take 1 tablet by mouth Every Night. Unknown vitamin B-12 (CYANOCOBALAMIN) 1000 MCG tablet Take 1 tablet by mouth Daily. Unknown Zinc Sulfate 220 (50 Zn) MG tablet Take 1 tablet by mouth Daily. Unknown , Scheduled Meds: amiodarone, 200 mg, Oral, BID [Held by provider] apixaban, 2.5 mg, Oral, Q12H aspirin, 81 mg, Oral, Daily Or aspirin, 300 mg, Rectal, Daily atorvastatin, 80 mg, Oral, Nightly cefTRIAXone, 2,000 mg, Intravenous, Q24H guaiFENesin, 600 mg, Oral, Q12H ipratropium-albuterol, 3 mL, Nebulization, 4x Daily - RT metroNIDAZOLE, 500 mg, Intravenous, Q8H pantoprazole, 40 mg, Oral, Daily sodium chloride, 10 mL, Intravenous, Q12H sodium chloride, 10 mL, Intravenous, Q12H , Continuous Infusions: , PRN Meds: acetaminophen OR acetaminophen OR acetaminophen senna-docusate sodium AND polyethylene glycol AND bisacodyl AND bisacodyl Calcium Replacement - Follow Nurse / BPA Driven Protocol ipratropium-albuterol Magnesium Standard Dose Replacement - Follow Nurse / BPA Driven Protocol nitroglycerin ondansetron Phosphorus Replacement - Follow Nurse / BPA Driven Protocol Potassium Replacement - Follow Nurse / BPA Driven Protocol sodium chloride sodium chloride sodium chloride sodium chloride, and Allergies: Patient has no known allergies. Review of Systems Pertinent items are noted in HPI, all other systems reviewed and negative Objective Vital Signs Temp: [97.1 ??F (36.2 ??C)-98 ??F (36.7 ??C)] 97.1 ??F (36.2 ??C) Heart Rate: [54-65] 54 Resp: [16-18] 18 BP: (112-132)/(46-54) 121/46 No intake/output data recorded. No intake/output data recorded. Physical Exam: General appearance sick looking male morbidly obese. HEENT: Atraumatic normocephalic head, eyes pupil reactive, extraocular muscle intact, nose no bleed, oropharynx clear, neck is supple, no JVD, no lymph node enlargement, trachea midline. Lungs: Clear to auscultation, equal chest movement, no crepitation. Heart: Normal S1, S2, no gallop, murmur, RRR. Abdomen: Soft, nontender, positive bowel sounds, morbid obesity Extremities: Trace edema lower extremity, no cyanosis, no joint swelling. Neuro: Alert, oriented. no focal deficit. Psych: Mood and affect are normal and appropriate. Skin: Skin is warm and dry. : No suprapubic fullness or tenderness, no Archibald catheter. Tunneled dialysis catheter left IJ. Results Review: I reviewed the patient's new clinical results. WBC WBC Date Value Ref Range Status 06/07/2025 18.26 (H) 3.40 - 10.80 10*3/mm3 Final HGB Hemoglobin Date Value Ref Range Status 06/07/2025 9.0 (L) 13.0 - 17.7 g/dL Final HCT Hematocrit Date Value Ref Range Status 06/07/2025 28.1 (L) 37.5 - 51.0 % Final Platlets No results found for: LABPLAT MCV MCV Date Value Ref Range Status 06/07/2025 97.6 (H) 79.0 - 97.0 fL Final Sodium Sodium Date Value Ref Range Status 06/07/2025 136 136 - 145 mmol/L Final Potassium Potassium Date Value Ref Range Status 06/07/2025 5.0 3.5 - 5.2 mmol/L Final Chloride Chloride Date Value Ref Range Status 06/07/2025 93 (L) 98 - 107 mmol/L Final CO2 CO2 Date Value Ref Range Status 06/07/2025 27.9 22.0 - 29.0 mmol/L Final BUN BUN Date Value Ref Range Status 06/07/2025 52.4 (H) 8.0 - 23.0 mg/dL Final Creatinine Creatinine Date Value Ref Range Status 06/07/2025 6.07 (H) 0.76 - 1.27 mg/dL Final Calcium Calcium Date Value Ref Range Status 06/07/2025 9.0 8.6 - 10.5 mg/dL Final PO4 No results found for: CAPO4 Albumin Albumin Date Value Ref Range Status 06/07/2025 3.0 (L) 3.5 - 5.2 g/dL Final Magnesium Magnesium Date Value Ref Range Status 06/07/2025 1.8 1.6 - 2.4 mg/dL Final Uric Acid No results found for: URICACID aspirin, 81 mg, Oral, Daily Or aspirin, 300 mg, Rectal, Daily cefTRIAXone, 2,000 mg, Intravenous, Q24H ipratropium-albuterol, 3 mL, Nebulization, 4x Daily - RT pharmacy consult - MTM, , Not Applicable, Daily metroNIDAZOLE, 500 mg, Intravenous, Q8H sodium chloride, 10 mL, Intravenous, Q12H sodium chloride, 10 mL, Intravenous, Q12H Assessment & Plan Occipital stroke 1. ESRD: On HD at [facility]. 2. Atrial fibrillation on Eliquis 3. Hypertension 4. Anemia of chronic kidney disease 5. Hyperlipidemia 6. COPD. 7. Ischemic occipital stroke. Plan: There is no indication for dialysis post IV contrast, it does not help, it is also nephrology boardquestion, the answer on board exam is no dialysis. Dialysis planned for tomorrow Renal diet Fluid restriction less than 1500 mL/day. Start home medications. Discussed with the son in the room. High risk complex patient with multiple medical problems. I discussed the patients findings and my recommendations with patient, family, and nursing staff Rehan Lincoln MD 06/07/25 @NOW * Hanna Rangel, HOSIERY BAGGER - 06/06/2025 5:06 PM EDT Stroke Consult Note Patient Name: Alexa Fuentes Age: 74 y.o. Sex: male : 1950 Primary Care Physician: Jeffrey Sun MD Referring Physician: Dr. Lopez, [facility] ED TIME STROKE TEAM CALLED: [id number] EST [facility] TIME PATIENT SEEN: 2039 EST Handedness: Right Race: Chief Complaint/Reason for Consultation: CT findings HPI: Mr. Fuentes is a 74-year-old male with known medical diagnoses of atrial fibrillation (on Eliquis to 2.5 mg twice daily), COPD (not oxygen dependent), HLD, and CKD on HD (Wednesday, Wednesday, Wednesday) who [facility] emergency department from his SNF for further evaluation of altered mental status, unresponsiveness, and leaning to the right. On ED MD's evaluation she noted that he was generally weak and had difficulty following commands, NIHSS noted to be 10. CT of the headwithout contrast revealed a hypodensity within the left occipital region consistent with late acute/subacute infarct. CTA head/neck were reported as negative for flow-limiting stenosis or LVO. Nursing staff reports that he was in his normal state of health at 1500 when he walked back into the facility after his dialysis appointment today. The stroke team was contacted to transfer for higher levelof care and further stroke workup. Prior to admission patient was not on any antiplatelet therapy. He did receive his last dose of Eliquis this morning. The patient has intermittent sleeping throughout the exam. He is able to tell me portions of his medical history. He typically receives care at [facility] [place]. His nieceand nephew are present at the bedside. They report that after dialysis today he was taken back to his nursing facility and at that time he was not as responsive as normal. He was taken here to [facility] for further workup and evaluation. Blood sugar as well as blood pressure were reported to be normal at that time. Secondary to CT head findings he was transferred to [facility] for further workup and evaluation. CT head was negative for any intracranial hemorrhage however he does have an areacortically that could represent a questionable chronic versus late subacute infarct. CTA head and neck shows diffuse intracranial atherosclerotic disease. He is admitted to hospital medicine team forfurther workup and evaluation. Last Known Normal Date/Time: 1500 EST Review of Systems Constitutional: Positive for fatigue. Eyes: Negative for visual disturbance. Respiratory: Negative for shortness of breath. Neurological: Positive for speech difficulty and weakness. Negative for facial asymmetry, numbness and headaches. Psychiatric/Behavioral: Positive for confusion. No past medical history on file. No past surgical history on file. No family history on file. Social History Socioeconomic History Marital status: Not on File Prior to Admission medications Not on File Neurological Exam Mental Status Arousable to verbal stimuli. Oriented to person, place, time and situation. Mild dysarthria present. No aphasia Mild dysarthria. Cranial Nerves CN II: Visual garcia full to confrontation. Blinks to visual threat bilaterally. CN III, IV, : Extraocular movements intact bilaterally. Pupils equal round and reactive to light bilaterally. CN V: Right: Facial sensation is normal. Left: Facial sensation is normal on the left. CN VII: Right: There is no facial weakness. Left: There is no facial weakness. CN VIII: Hearing appears to be intact bilaterally. CN IX, X: Right: Palate is normal. Left: Palate is normal. Motor Normal muscle bulk throughout. No fasciculations present. Decreased muscle tone. Generalized weakness Right upper extremity difficulties (chronic) Left lower extremity difficulties (chronic). Sensory Light touch is normal in upper and lower extremities. Coordination No overt ataxia or dysmetria to note. Gait Normal gait. Bedbound at baseline, not observed. Physical Exam Constitutional: General: He is not in acute distress. Appearance: He is normal weight. Comments: Chronically ill-appearing HENT: Head: Normocephalic. Mouth/Throat: Pharynx: Oropharynx is clear. Eyes: Extraocular Movements: Extraocular movements intact. Pupils: Pupils are equal, round, and reactive to light. Pulmonary: Breath sounds: Wheezing present. Comments: Nasal cannula in place Musculoskeletal: Cervical back: Normal range of motion. Skin: General: Skin is warm and dry. Coloration: Skin is pale. Findings: Bruising present. Neurological: Mental Status: He is lethargic. Cranial Nerves: Cranial nerve deficit and dysarthria present. Sensory: No sensory deficit. Motor: Weakness present. Gait: Gait normal. Acute Stroke Data Thrombolytic Inclusion / Exclusion Criteria Time: 20:47 EDT Person Administering Scale: Hanna Rangel APRN YES NO INCLUSION CRITERIA CLASS I [] [x] Suspected diagnosis of acute ischemic stroke with measureable neurological deficit. Low NIHSS with disabling stroke symptoms. [] [x] Onset of stroke symptoms < 3 hours before beginning treatment >/ 18 years old Stroke symptom onset = time patient was last seen well or without symptoms (LKW) [] [x] Onset of symptoms between 3-4.5 hours: >/= 80 years old (safe Class IIa) with history of both diabetes and prior CVA (reasonable Class IIb) AND NIHSS </= 25 *If not eligible for IV Thrombolytic consider neuro intervention for LKW within 24 hours YES NO EXCLUSION CRITERIA (CONTRAINDICATIONS) CLASS III EVIDENCE HARM [] [] Blood pressure >185/110 medically refractory to IV medications [] [] Active bleeding at a non-compressible site [] [] Active intracranial hemorrhage (ICH) [] [] Symptoms suggestive of subarachnoid hemorrhage (SAH) [] [] GI bleed within 21 days [] [] Ischemic stroke within 3 months [] [] Severe head trauma within 3 months [] [] Intracranial or intraspinal surgery within 3 months [] [] Current GI malignancy [] [] Intracranial neoplasm [] [] Infective endocarditis [] [] Aortic arch dissection [] [] Active coagulopathy with INR >1.7, platelets <100,000, PTT > 40 sec, PT > 15 sec *For warfarin, administration can begin before blood tests resulted. Discontinue for above values. [] [] Treatment dose* of LMWH (Lovenox) in last 24 hours *prophylactic dosages are not a contraindication [] [] Concurrent use of antiplatelet agents' glycoprotein inhibitors IIb/IIIa (Integrilin, etc.) [x] [] Thrombin or factor Xa inhibitors (Eliquis, Xarelto, Arixtra) taken in last 48 hours YES NO CLASS II: AIS WITH THE FOLLOWING CONDITIONS - TREATMENT RISKS SHOULD BE WEIGHED AGAINST POSSIBLE BENEFITS. [] [] Major trauma in last 14 days, recent major surgery in last 14 days, intracranial arterial dissection, giant unruptured and unsecured intracranial aneurysm, pericarditis [] [] The risks, benefits, and alternatives have been discussed with the patient or family related to the administration of IV thrombolytic therapy for stroke symptoms. [] [] I have discussed and reviewed the patient's case and imaging with the attending prior to IV thrombolytic therapy. TIME N/A Time IV thrombolytic administered Hospital Meds: Scheduled- [START ON 06/07/2025] aspirin, 81 mg, Oral, Daily Or [START ON 06/07/2025] aspirin, 300 mg, Rectal, Daily atorvastatin, 40 mg, Oral, Nightly sodium chloride, 10 mL, Intravenous, Q12H Infusions- PRNs- sodium chloride sodium chloride Functional Status Prior to Current Stroke/Cam[place] Score: 4 NIH Stroke Scale Time: 20:47 EDT Person Administering Scale: Hanna Rangel APRN 1a Level of consciousness: 1=not alert but arousable by minor stimulation to obey, answer or respond 1b. LOC questions: 1=Answers one question correctly 1c. LOC commands: 0=Performs both tasks correctly 2. Best Gaze: 0=normal 3. Visual: 0=No visual loss 4. Facial Palsy: 0=Normal symmetric movement 5a. Motor left arm: 0=No drift, limb holds 90 (or 45) degrees for full 10 seconds 5b. Motor right arm: 2=Some effort against gravity, limb cannot get to or maintain (if cured) 90 (or 45) degrees, drifts down to bed, but has some effort against gravity 6a. motor left le=Some effort against gravity, limb cannot get to or maintain (if cured) 90 (or45) degrees, drifts down to bed, but has some effort against gravity 6b Motor right le=Drift, limb holds 90 (or 45) degrees but drifts down before full 10 seconds: does not hit bed 7. Limb Ataxia: 0=Absent 8. Sensory: 0=Normal; no sensory loss 9. Best Language: 0=No aphasia, normal 10. Dysarthria: 1=Mild to moderate, patient slurs at least some words and at worst, can be understood with some difficulty 11. Extinction and Inattention: 0=No abnormality Total: 8 Results Reviewed: I have personally reviewed current lab, radiology, and data and agree with results. OSH labs and imaging: Creatinine 5.1 BUN 45 Glucose 84 AST 485 ALT 482 CTA head and neck: severe stenosis at the origin of the right ICA, less than 50% stenosis in the left ICA, moderate stenosis in the distal left ICA, mild stenosis of the right vertebral artery, moderate stenosis at the origin of the left vertebral artery. CT head without contrast: Negative for any acute intracranial hemorrhage. Suspicious for chronic versus late subacute infarct. Multiple chronic infarcts in bilateral cerebellar hemispheres. White matter changes compatible with chronic hypertensive microvascular disease. Assessment/Plan: This is a 74-year-old male with known medical diagnoses of atrial fibrillation (on Eliquis to 2.5 mg twice daily), COPD (not oxygen dependent), HLD, and CKD on HD (Wednesday, Wednesday, Wednesday) who presented to [facility] emergency department from his SNF for further evaluation of altered mental status, unresponsiveness, and leaning to the right. On arrival to the emergency department he underwent a CT of the head without contrast which revealed a late acute to subacute infarct in the left occipital lobe. Given this and chronic Eliquis use he was not a candidate for IV thrombolytic therapy. CTA head/neck was reported as negative for flow-limiting stenosis or LVO. He will be admitted to the hospitalist service for further stroke workup. Antiplatelet PHYSICIAN/ALLERGY/IMMUNOLOGY: None Anticoagulant PHYSICIAN/ALLERGY/IMMUNOLOGY: Eliquis 2.5 mg twice daily Late acute/subacute left occipital stroke, etiology unclear at this time - TIA/CVA order set without thrombolytic therapy has been initiated - NPO until bedside nursing dysphagia screen completed - If passed appropriate for cardiac diabetic diet - MRI brain without contrast, routine - TTE with bubble study in a.m. - A1c and lipid panel in AM - Meds: ASA 81 mg daily, significant iCAD - Okay from a neurology standpoint to continue Eliquis 2.5 mg twice daily - Upload outside hospital images - Carotid ultrasound, bilaterally - Activity as tolerated, fall risk precautions - PT/OT/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 evaluation - Case management assistance needed, long-term correction placement prior to admission 2. Essential hypertension - Allow autoregulation of blood pressure for adequate cerebral blood flow - Nicardipine as needed for SBP >220 - Overall management per hospital medicine team 3. Hyperlipidemia - Lipid panel in AM - Hold statin at this time secondary to elevated LFT - Recheck labs in a.m. 4. CKD on hemodialysis, Wednesday/Wednesday/Wednesday - Nephrology to see as patient will likely need dialysis tomorrow given he received contrast dye atOSH - Daily labs Plan of care was discussed with family who was present at the bedside.. Stroke neurology will continue to follow. Please call with any questions or concerns. Thank you for this consult. Hanna Rangel APRN Stroke neurology June 06, 2025 documented in this encounter Nursing Notes * Susannah Moctezuma, RN - 06/14/2025 2:36 PM EDT Goal Outcome Evaluation: Plan of Care Reviewed With: other (see comments) (pt unable to participate; no family present at time of encounter) Progress: no change Outcome Evaluation: Pt seen at 1155; sleeping, no observable signs of discomfort, no family present. Per Dr. Carmen, pt had BM this morning, plan for discharge to [facility] today. 0930: Palliative IDT discussion: ANA CARVALHO, RN, SW, Route Returner After hours, weekends and holidays, contact Palliative Provider by calling [phone] Problem: Palliative Care Goal: Enhanced Quality of Life Outcome: Adequate for Care Transition Intervention: Maximize Comfort Flowsheets (Taken 06/14/20251431) Pain Management Interventions: (No observable signs of discomfort; has not required pain medicationin several days) other (see comments) Intervention: Promote Advance Care Planning Flowsheets (Taken 06/14/20251431) Life Transition/Adjustment: (discharge today to [facility]) other (see comments) * Jai Zayas RN - 06/14/2025 1:10 PM EDT Report given to Bobby HAGEN at [facility] * Shahnaz Gayle RN - 06/14/2025 11:38 AM EDT C 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 RN noted packing inserted and performed today. No issues noted packing is going well. Due to the chronicity of the wound will sign off but let us know if there are any issues going forward. * Jim Howell RN - 06/14/2025 12:05 AM EDT phlebotomy services representative provider paged to report elevated bp * Micky Edmonds RN - 06/13/2025 11:40 AM EDT Problem: Hemodialysis Goal: Safe, Effective Therapy Delivery Outcome: Progressing Goal: Effective Tissue Perfusion Outcome: Progressing Goal: Absence of Infection Signs and Symptoms Outcome: Progressing Goal Outcome Evaluation: HD completed. Tolerated well. 2 liters output/ UF goal reached. Blood returned. Report given to primary RN. * Jim Howell RN - 06/13/2025 3:19 AM EDT Call placed to chemistry quality control technician provider to report right sided nose bleed. Per dayshift RN patient felt nasal cannula was making his nose dry. Humidification added during 1999 round. HOSIERY BAGGER to enter orders. * Terra Valverde, Speech Therapy Student - 06/12/2025 9:30 AM EDT Goal Outcome Evaluation: Plan of Care Reviewed With: (P) patient Progress: (P) no change (eval) Anticipated Discharge Disposition (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): (P) correction facility 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 Diagnosis: (P) moderate, dysarthria, mild, cognitive-linguistic disorder (06/12/25929) 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 Diagnosis Comments: (P) Pt reports that his short-term memory is worse than his press clippings cutter and paster said, I can recall things that happened 25 years ago. Pt stated that he would prefer to work on his speech instead of memory and cognition. (06/12/25929) Cosigned by Patricia Munoz MS CCC-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 at 06/12/2025 1:03 PM EDT Associated attestation - Patricia Munoz MS CCC-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 - 06/12/2025 1:03 PM EDT Patricia Munoz MS CCC-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 * Kieran Smalls RN - 06/11/2025 2:30 PM EDT Goal Outcome Evaluation: Palliative RN visit with pt at bedside. Co-visit with Palliative HOSIERY BAGGER Aurora Peña. Pt just returned from dialysis. Per bedside RN, pt received Versed. Pt remains on clear liquid diet s/p lap aby. Did c/o gas pain and belly soreness and verified that patient has Simethicone ordered. LBM 06/07, which was a bout of diarrhea and received Immodium. Pt to start stool softeners. Pt did c/o productive cough and some SOA. He is currently on 3.5L NC, and did not use supplemental O2 prior to this hospitalization. Palliative will continue to follow patient. Problem: Palliative Care Goal: Enhanced Quality of Life Outcome: Progressing * Gabriela Martinez RN - 06/11/2025 12:15 PM EDT Goal Outcome Evaluation:Scheduled HD completed. Pt tolerated. Goal reached. Blood reinfused back topt. Called report to Lita HAGEN. Informed primary RN of pt's phorous level was not wnl. Pt transportby transport team. {T d/c from dialysis unit in stable condition. Problem: Hemodialysis Goal: Safe, Effective Therapy Delivery Outcome: Progressing Goal: Effective Tissue Perfusion Outcome: Progressing Goal: Absence of Infection Signs and Symptoms Outcome: Progressing Pt remained NPO during HD as ordered * Cayla Burnett RN - 06/10/2025 7:46 PM EDT Pt A&Ox4, 3LNC, sinus francisco on tele, no c/o pain. Noticeable swelling bilaterally on jaw/upper neck, CT ordered. Refused low-air loss bed, form signed. Turned [id number], safety precautions in place. * Cayla Burnett RN - 06/09/2025 7:49 AM EDT Pt A&Ox4, RA, Sinus Francisco on tele, no c/o pain or nausea, NIH=3. Report call to OPERATIONS SUPERINTENDENT @ [phone]. * Beau Henao RN - 06/08/2025 5:53 PM EDT Problem: Hemodialysis Goal: Safe, Effective Therapy Delivery Outcome: Progressing Goal: Effective Tissue Perfusion Outcome: Progressing Goal: Absence of Infection Signs and Symptoms Outcome: Progressing Goal Outcome Evaluation: HD completed, UF 1100 ml, Goal not met. BP low midway during tx, albumin given and BP stabilized. Access functioned very poorly and was unable to remove fluid. Insilled cathflow to dwell till next tx. Blood returned to pt. Report to HIEU Barrett * Kieran Smalls RN - 06/08/2025 12:00 PM EDT Goal Outcome Evaluation: Palliative RN attempted to visit with patient. Pt still in Endo. Will attempt to see patient later in the day. At 1430 - Attempted to see patient at bedside. Per bedside RN Lita pt went straight to Dialysis from Endo. Problem: Palliative Care Goal: Enhanced Quality of Life Outcome: Progressing * Shahnaz Gayle RN - 06/08/2025 8:00 AM EDT [facility] consult for Comments: Patient agreeable to jesenia specialty mattress, he thought WOC meant an air mattress such as the waffle pads Ordered jesenia mueller from [facility]. * Mariza Brunson, MS [facility]-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 - 06/07/2025 5:12 PM EDT Goal Outcome Evaluation: Plan of Care Reviewed With: patient, family Progress: improving Anticipated Discharge Disposition (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): correction facility 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 Diagnosis: functional cognitive-linguistic skills (06/07/25 1330) 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 Diagnosis Comments: Pt son reported this is baseline for pt. (06/07/25 1330) 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 Swallowing Diagnosis: functional oral phase, functional pharyngeal phase (06/07/25 1630) * Roxanne Travis, Speech Therapy Student - 06/07/2025 2:30 PM EDT Goal Outcome Evaluation: Plan of Care Reviewed With: (P) patient, child Progress: (P) no change Anticipated Discharge Disposition (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): (P) correction facility 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 Diagnosis: (P) functional cognitive-linguistic skills (06/07/25 133) 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 Diagnosis Comments: (P) Pt son reported this is baseline for pt. (06/07/25 1330) 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 Swallowing Diagnosis: (P) functional oral phase, suspected pharyngeal dysphagia (06/07/25 133) Cosigned by Batsheva Spears MS CCC-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 at 06/07/2025 3:27 PM EDT Associated attestation - Batsheva Spears MS CCC-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 - 06/07/2025 3:27 PM EDT Batsheva Spears MS CCC-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 * Shahnaz Gayle RN - 06/07/2025 2:26 PM EDT Images from the original note were not included. Reason for Wound, Ostomy and Continence (WOC) Nursing Consultation: Pressure Injury Was Pressure Injury Present on Admission? Yes Indicate Wound Location / Details Coccyx Patient seen in bed. Family/support person present, notes that patient has had this wound for yearsand it was originally to the bone . Currently it is a small tunnel.. Wound Assessment Wound Type: Pressure Injury Stage 4-healing, no bone noted but wound is significantly smaller than patient's family member noted Location: Coccyx Measurements: 0.8 x 0.4 x 1.2 cm Wound Bed: Could not see through the callused and overgrown wound edges obscuring base of wound palpated with gloved finger and did not note any structure noted moist feeling tissue Wound Edges: Irregular and Jagged Periwound Skin: dry Drainage Characteristics/Odor: none Drainage Amount: none Pain: Yes Care provided: Irrigated with saline syringe, patted dry, packed small amount of iodoform packing strip, secured with new Allevyn dressing Notes: Per RN, daily Wound Image: Recommendation(s) for management of wound: -Refer to wound care orders for specific instructions on how to treat/manage wound. -Practice pressure injury prevention protocol. Most recent Endy Scale score: Sensory Perception: 3-->slightly limited Moisture: 3-->occasionally moist Activity: 1-->bedfast Mobility: 2-->very limited Nutrition: 2-->probably inadequate Friction and Shear: 2-->potential problem Endy Score: 13 (06/07/25 0800) Specialty support surface: [facility] Offered Patient bariatric Low Air Loss bed but patient stated he did not want an air bed. Pressure Injury Prevention Protocol (initiate for Endy Score of 18 or less): *Turn q 2 hr, keep heels elevated and offloaded with offloading heel boots. *Allevn dressings to heels, sacrum/coccyx *Follow C.A.R.E protocol if medical devices (Bipap, archibald, Ng tube, etc) are being used. *Reduce layers under patient (one sheet as drawsheet and two incontinence pads) to allow waffle or FELIPA to improve microclimate *Raise knee-gatch before elevating HOB to reduce shearing WOC Team will sign off. Please re-consult if the wound(s) worsens. * Licha Carlton OT - 06/07/2025 1:14 PM EDT Goal Outcome Evaluation: Plan of Care Reviewed With: patient, son Outcome Evaluation: Pt at baseline functional status w/ ADL independence. No further skilled IPOT services warranted at this time. Rec continued activity as tolerated w/ nursing staff, return to ECF at d/c. Anticipated Discharge Disposition (OT): extended care facility * Candice Munoz RN - 06/07/2025 12:48 PM EDT Goal Outcome Evaluation: Plan of Care Reviewed With: patient Progress: no change Outcome Evaluation: Palliative RN saw pt. at 1226. New palliative consult for assistance with GOC per Dr. Muro. NOK is son Teto Pickens who was at BS during palliative nursing visit. Palliative care introduced. Palliative brochure, meal discount card and blanket provided. Pt. remains in contact isolation. Pt. being changed by staff as he had BM. Pt. indicated pressure injure on his buttock was the only source of pain during nursing visit. He indicated the pain was mild after being changed and having cream applied. Pt. soa especially with conversation and turning. He was NPO at time of visit. Son Teto indicated he had met with Dr. Alaina Bueno earlier and his dad made the decision for DNR/DNI which Teto is in agreement with. He says his dad knows what he wants. Palliative care to continue tofollow along for support and ongoing GOC. Problem: Palliative Care Goal: Enhanced Quality of Life Intervention: Promote Advance Care Planning Flowsheets (Taken 06/07/2025 1242) Life Transition/Adjustment: palliative care initiated palliative care discussed 929 Palliative IDT meeting: HOSIERY BAGGER ;RNs; MDIV; EMT After hours, weekends and holidays, contact Palliative Provider by calling [phone]. * Linda Schafer RN - 06/07/2025 6:18 AM EDT Problem: Adult Inpatient Plan of Care Goal: Plan of Care Review Outcome: Not Progressing Goal: Patient-Specific Goal (Individualized) Outcome: Not Progressing Goal: Absence of Hospital-Acquired Illness or Injury Outcome: Not Progressing Intervention: Prevent and Manage VTE (Venous Thromboembolism) Risk Recent Flowsheet Documentation Taken 06/06/20252030 by Linda Schafer, RN VTE Prevention/Management: bilateral SCDs (sequential compression devices) off patient refused intervention Goal: Optimal Comfort and Wellbeing Outcome: Not Progressing Goal: Readiness for Transition of Care Outcome: Not Progressing Intervention: Mutually Develop Transition Plan Recent Flowsheet Documentation Taken 06/07/2025 0618 by Linda Schafer RN Transportation Anticipated: health plan transportation Patient/Family Anticipated Services at Transition: none Patient/Family Anticipates Transition to: long-term care facility Goal Outcome Evaluation: documented in this encounter OR Notes * Op Note - Charles Guerrero MD - 06/09/2025 11:09 AM EDT Operative Report Patient Name: Alexa Fuentes Date of : 1950 [id number] 06/09/2025 PREOPERATIVE DIAGNOSIS: Choledocholithiasis POSTOPERATIVE DIAGNOSIS: Same PROCEDURE PERFORMED: Laparoscopic cholecystectomy SURGEON: Charles Guerrero MD SPECIAL EDUCATION SECRETARY: None SPECIMENS: Gallbladder and contents ANESTHESIA: General. EBL: Minimal FINDINGS: Dense adhesions between the fundus of the gallbladder and the omentum without evidence of active inflammation or infection; dilated cystic duct secondary to recent episode of choledocholithiasis INDICATIONS: The patient is a 74 y.o. male with a history of choledocholithiasis, status post ERCP on 06/08/2025 with retrieval of common bile duct stone. I discussed the risks, benefits, and alternatives to laparoscopic cholecystectomy as next step in treatment with the patient and his son and they were agreeable. Informed consent was obtained. DESCRIPTION OF PROCEDURE: After obtaining informed consent, the patient was taken to the operating room and placed in the supine position. After appropriate DVT and antibiotic prophylaxis, general anesthesia was induced. The abdomen was prepped and draped in standard sterile fashion. After infiltrating the skin with local anesthetic, a 12mm skin incision was made superior to the umbilicus. Blunt dissection was carried down to the base of the umbilicus, which was grasped with a Tabatha clamp and elevated anteriorly. A vertical midline incision was made in the fascia, and blunt dissection was carried down into the peritoneal cavity. A stay suture of 0 Vicryl was then placed in [id number] fashion around the defect,and a blunt trocar advanced without difficulty into the abdominal cavity. The abdomen was insufflated with carbon dioxide gas to a pressure of 15 mmHg, and a laparoscope advanced through the trocar and the abdominal contents were inspected. There was no evidence of bowel, bladder, or visceral injury with entrance of the trocar. At this point, after infiltrating the skin with local anesthetic, a standard laparoscopic cholecystectomy trocar placement schema was followed. Dense adhesions were noted between the fundus of the gallbladder and the omentum. These were taken down using a combination of blunt dissection and the LigaSure device. The gallbladder fundus was then grasped and elevated superiorly. Using meticulous blunt dissection, the cystic duct and cystic artery were bluntly dissected free of other structures and clearly identified using the Critical View technique, with only two structures going into and out of the gallbladder. The cystic duct was thenclipped at its junction with the infundibulum of the gallbladder with two clips placed proximally and one distally, and the duct was divided between the clips. The cystic duct was noted to have residual dilation from recent episode of choledocholithiasis. The cystic duct stump was then reinforced for this reason with a PDS Endoloop. The cystic artery was then clipped twice proximally and once distally, and divided between the clips. The gallbladder was then dissected free of the gallbladder fossa using a combination of electrocautery and blunt dissection. The gallbladder was then placed in an Endo Catch bag, and removed from thesupraumbilical trocar site. The right upper quadrant was then inspected. The cystic duct and cystic artery stumps were intact without bleeding or biliary leak. The right upper quadrant was irrigated with saline until clear. Theliver bed was hemostatic. The abdomen was deflated and reinsufflated to make sure pneumoperitoneum was not tamponading any bleeding and there was none. All trocars were removed under direct laparoscopic visualization. The fascia at the inferiormost incision was closed using 0 Vicryl suture. The skin incisions were closed in each area using absorbable subcuticular suture. The incisions were then dressed in standard sterile fashion. The patient recovered from anesthesia, was extubated in the operating room, and transferred to the PACU in stable condition. All sponge and needle counts were correct times two at the completion of the procedure. There were no immediate complications. Charles Guerrero MD 06/09/2025 12:25 EDT * Brief Op Note - Charles Guerrero MD - 06/09/2025 11:09 AM EDT CHOLECYSTECTOMY LAPAROSCOPIC Progress Note Alexa Fuentes 06/09/2025 Pre-op Diagnosis: * Choledocholithiasis Post-Op Diagnosis Codes: * Choledocholithiasis Procedure(s): Procedure(s): CHOLECYSTECTOMY LAPAROSCOPIC Surgeon(s): Charles Guerrero MD Anesthesia: General Staff: Human Resource Intern: Haydee Tsang RN Scrub Person: Pura Baker Rn Plastics: Jade Fraire PCT Estimated Blood Loss: minimal Urine Voided: * No values recorded between 06/09/2025 10:40 AM and 06/09/2025 12:18 PM * Specimens: Specimens ID Source Type Tests Collected By Collected At Frozen? A Gallbladder Tissue TISSUE PATHOLOGY EXAM Charles Guerrero MD 06/09/25 1200 Drains: [REMOVED] External Urinary Catheter (Removed) Daily Indications Daily output 06/07/25 0400 Site Assessment Skin intact;Clean 06/07/25 0400 Application/Removal external catheter applied;skin care provided 06/06/252031 Securement Method Securing device 06/07/25 0400 Catheter care complete Yes 06/06/252031 Findings: Dense adhesions between the fundus of the gallbladder and the omentum without evidence ofactive inflammation or infection; dilated cystic duct secondary to recent episode of choledocholithiasis Complications: None Charles Guerrero MD Date: 06/09/2025 Time: 12:24 EDT documented in this encounter Miscellaneous Notes * Case Management/Social Work - Tesha Coelho RN - 06/14/2025 1:49 PM EDT Continued Stay Note LANDON Servin Patient Name: Alexa Fuentes Today's Date: 06/14/2025 Admit Date: 06/06/2025 Plan: Home Discharge Plan Row Name 06/14/25 1348 Plan Plan Comments Spoke with [facility] and confimed need for Vanco x5 more doses during HD with order faxed and recieved. Discharge Codes No documentation. Expected Discharge Date and Time Expected Discharge Date Expected Discharge Time Jun 14, 2025 Tesha Coelho RN * Case Management/Social Work - Tesha Coelho RN - 06/12/2025 12:00 PM EDT Case Management Discharge Note Final Note: Pt to discharge back to [facility] after HD on 06/13/2025. Nurse to call report [phone] cook [phone]. Discharge summary to be faxed to [phone] and [phone]. Nurse to notify cm when ready for EMS dispatch if prior to 1530. PCS signed. Selected Continued Care - Admitted Since 06/06/2025 Destination Coordination complete. Service Provider Services Address Phone Fax Patient Preferred [facility] Intermediate Care [address] [place] [address] -- Durable Medical Equipment No services have been selected for the patient. Dialysis/Infusion Coordination complete. Service Provider Services Address Phone Fax Patient Preferred [facility] Dialysis In-Center Hemodialysis [address] [facility] [id number] -- Home Medical Care No services have been selected for the patient. Therapy No services have been selected for the patient. Community Resources No services have been selected for the patient. Community & DME No services have been selected for the patient. Transportation Services Transportation: Ambulance Ambulance: [facility] Ambulance Service [facility] Ambulance Service Ambulance Status: Accepted Final Discharge Disposition Code: 04 - intermediate care facility * Case Management/Social Work - Tesha Coelho RN - 06/12/2025 11:59 AM EDT Continued Stay Note [facility] Patient Name: Alexa Fuentes Today's Date: 06/12/2025 Admit Date: 06/06/2025 Plan: Home Discharge Plan Row Name 06/12/25 1151 Plan Plan Home Patient/Family in Agreement with Plan yes Plan Comments Spoke with [facility] in HD in [place] and they currently have the 1000mg in 250ml Vanco that pt is ordered to recieve tomorrow during HD and will be able to administer. At this time CM unable to verify duration of ABX. Also notified admissions at [facility] that plan is for pt to return tomorrow after HD and explained his ABX regimen. CM will fax discharge summary to facility and HD clinic at discharge. Attempt made to notify pt at bedside but he was sleeping. Will follow up to get IMM and EMS DNR signed Final Discharge Disposition Code 04 - [facility] Final Note -- Discharge Codes No documentation. Expected Discharge Date and Time Expected Discharge Date Expected Discharge Time Jun 11, 2025 Tesha Coelho RN * Therapy Re-Evaluation - Terra Valverde, Speech Therapy Student - 06/12/2025 9:30 AM EDT Acute Care - Speech Language Pathology Re-Evaluation [facility] Cognitive-Communication Evaluation Patient Name: Alexa Fuentes : 1950 Today's Date: 06/12/2025 Admit Date: 06/06/2025 Visit Dx: ICD-10-CM ICD-9-CM 1. Occipital stroke I63.9 434.91 2. Choledocholithiasis K80.50 574.50 3. Cholecystitis K81.9 575.10 Patient Active Problem List Diagnosis Occipital stroke Choledocholithiasis Acute respiratory failure with hypoxia CAP (community acquired pneumonia) ESRD (end stage renal disease) Atrial fibrillation Past Medical History: Diagnosis Date COPD (chronic obstructive pulmonary disease) ESRD (end stage renal disease) on dialysis Hyperlipidemia Hypertension Stroke Past Surgical History: Procedure Laterality Date CHOLECYSTECTOMY N/A 06/09/2025 Procedure: CHOLECYSTECTOMY LAPAROSCOPIC; Surgeon: Charles Guerrero MD; Location: [facility]; Service: General; Laterality: N/A; COLONOSCOPY ERCP N/A 06/08/2025 Procedure: ENDOSCOPIC RETROGRADE CHOLANGIOPANCREATOGRAPHY; Surgeon: Kishore Foote MD; Location: [facility] ENDOSCOPY; Service: Gastroenterology; Laterality: N/A; KNEE SURGERY Right 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 Recommendation and Plan Recommended discharge disposition is based on the functional assessment performed by PT/OT/Speech therapy (as applicable) and may not reflect the medical necessity determined by your provider or services covered by an individual patient's insurance plan or patient resource. 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 Diagnosis: (P) moderate, dysarthria, mild, cognitive-linguistic disorder (06/12/25929) 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 Diagnosis Comments: (P) Pt reports that his short-term memory is worse than his chcf said, I can recall things that happened 25 years ago. Pt stated that he would prefer to work on his speech instead of memory and cognition. (06/12/25929) SLC Criteria for Skilled Therapy Interventions Met: (P) yes (06/12/25929) Anticipated Discharge Disposition (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): (P) correction facility (06/12/25929) Therapy Frequency (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 SLC): (P) 5 days per week (06/12/25929) Predicted Duration Therapy Intervention (Days): (P) 2 weeks (06/12/25929) 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 EVALUATION (Last 72 Hours) 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 SLC Evaluation Row Name 06/12/25929 Communication Assessment/Intervention Document Type re-evaluation (P) -EM Subjective Information no complaints (P) -EM Patient Observations alert;cooperative;agree to therapy (P) -EM Patient/Family/Caregiver Comments/Observations No family present (P) -EM Patient Effort good (P) -EM General Information Patient Profile Reviewed yes (P) -EM Pertinent History Of Current Problem Pt is a 74 y.o. male who presents w/ altered mental status, concern for stroke, and dysarthria.Medical hx significant for end-stage CKD on hemidialysis A-fib, COPD, hyperlipidemia, and HTN. CT: subacute L occipital ischemia. (P) -EM Precautions/Limitations, Vision WFL;for purposes of eval (P) -EM Precautions/Limitations, Hearing WFL;for purposes of eval (P) -EM Plans/Goals Discussed with patient;agreed upon (P) -EM Barriers to Rehab cognitive status;medically complex (P) -EM Patient's Goals for Discharge patient did not state (P) -EM Pain Pretreatment Pain Rating 0/10 - no pain (P) -EM Posttreatment Pain Rating 0/10 - no pain (P) -EM Oral Motor Structure and Function Oral Motor Structure and Function WFL (P) -EM Dentition Assessment upper dentures/partial in place (P) -EM Mucosal Quality moist, healthy (P) -EM Oral Musculature and Cranial Nerve Assessment Oral Motor General Assessment WFL (P) -EM Motor Speech Assessment/Intervention Motor Speech Function moderate impairment (P) -EM Characteristics Consistent with Dysarthria slow rate;decreased articulation (P) -EM Initiation of Phonation (Communication) voluntary;WFL (P) -EM Conversational Speech (Communication) moderate impairment;moderate complexity (P) -EM Speech intelligibility 70%;in quiet environment;in connected speech;with unfamiliar listener (P) -EM Motor Speech, Comment Pt stated that his speech has gotten worse since arriving at the hospital andhe would like to work on improving it. (P) -EM Cognitive Assessment Intervention- 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 Cognitive Function (Cognition) mild impairment (P) -EM Orientation Status (Cognition) awareness of basic personal information;person;place;time;situation;WFL (P) -EM Memory (Cognitive) mild impairment;short-term;immediate;unrelated (P) -EM Attention (Cognitive) mild impairment;sustained (P) -EM Thought Organization (Cognitive) mild impairment;concrete divergent;abstract convergent (P) -EM Reasoning (Cognitive) mild impairment;deductive (P) -EM Problem Solving (Cognitive) simple;WFL;mild impairment;divergent;multifactorial (P) -EM Pragmatics (Communication) WFL (P) -EM Cognition, Comment Pt shared that his memory is not the best at baseline but said it has gotten worse since arriving at the hospital. 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 Pt stated that he would prefer to work on his speech instead of memory and cognition. (P) -EM Rehab Potential/Prognosis good (P) -EM SLC Criteria for Skilled Therapy Interventions Met yes (P) -EM Functional Impact difficulty in expressing complex messages (P) -EM Recommendations Therapy Frequency (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 SLC) 5 days per week (P) -EM Predicted Duration Therapy Intervention (Days) 2 weeks (P) -EM Anticipated Discharge Disposition (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) correction facility (P) -EM User Alvarez (r) = Recorded By, (t) = Taken By, (c) = Cosigned By Initials Name Effective Dates Terra Power, Speech Therapy Student 04/27/25 - EDUCATION The patient has been educated in the following areas: Cognitive Impairment. 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 GOALS Row Name 06/12/25 0930 Patient will demonstrate functional communication skills for return to discharge environment [place] Independently (P) -EM Time frame 2 weeks (P) -EM Progress/Outcomes goal ongoing (P) -EM 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 Diagnostic Treatment Patient will participate in further assessment in the following areas higher- level cognitive-linguistic;motor speech;clarification of baseline cognitive communication status (P) -EM Time Frame (Diagnostic) 1 week (P) -EM Progress/Outcomes (Additional Goal 1, 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) goal met (P) -EM Comment (Diagnostic) Pt reports mild memory deficits at baseline. Higher level cognitive evaluationcompleted. (P) -EM Articulation Goal 1 (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) Improve Articulation Goal 1 (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) of specific sounds in phrases;of specific sounds in connected speech;80%;with minimal cues (75-90%) (P) -EM Time Frame (Articulation Goal 1, 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) 1 week (P) -EM Progress/Outcomes (Articulation Goal 1, 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) new goal (P) -EM Memory Skills Goal 1 (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) Improve Memory Skills Through Goal 1 (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) recalling related word lists with an imposed delay;80%;with minimal cues (75-90%) (P) -EM Time Frame (Memory Skills Goal 1, 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) 1 week (P) -EM Progress/Outcomes (Memory Skills Goal 1, 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) new goal (P) -EM Organizational Skills Goal 1 (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) Improve Thought Organization Through Goal 1 (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) completing a divergent naming task;80%;with minimal cues (75-90%) (P) -EM Time Frame (Thought Organization Skills Goal 1, 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) 1 week (P) -EM Progress/Outcomes (Thought Organization Skills Goal 1, 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) new goal (P) -EM User Alvarez (r) = Recorded By, (t) = Taken By, (c) = Cosigned By Initials Name Provider Type Terra Power, Speech Therapy Student 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 Student Time Calculation: Time Calculation- 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 Row Name 06/12/25 1213 Time Calculation- 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 Start Time 929 (P) -EM 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 Received On 06/12/25 (P) -EM Untimed Charges 56729-HI Eval Speech and Production w/ Language Minutes 68 (P) -EM Total Minutes Untimed Charges Total Minutes 68 (P) -EM Total Minutes 68 (P) -EM User Alvarez (r) = Recorded By, (t) = Taken By, (c) = Cosigned By Initials Name Provider Type EM Terra Valverde Speech Therapy Student 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 Student Therapy Charges for Today Code Description Service Date Service Provider Modifiers Qty [id number] [facility] EV[facility] SPEECH AND PROD W LANG 5 06/12/2025 Terra Valverde Speech Therapy StudentGN, KX 1 Marcelino Tierney Therapy Student 06/12/2025 Cosigned by Patricia Munoz MS CCC-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 at 06/12/2025 1:03 PM EDT Associated attestation - Patricia Munoz MS CCC-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 - 06/12/2025 1:03 PM EDT Patricia Munoz MS CCC-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 * Case Management/Social Work - Tesha Coelho RN - 06/11/2025 12:41 PM EDT Continued Stay Note [facility] Patient Name: Alexa Fuentes Today's Date: 06/11/2025 Admit Date: 06/06/2025 Plan: IDP Discharge Plan Row Name 06/11/25 1238 Plan Plan Comments Pt in HD during bedside rounding. Not medically ready for discharge at this time. CM will cont to follow. Discharge Codes No documentation. Expected Discharge Date and Time Expected Discharge Date Expected Discharge Time Jun 11, 2025 Tesha Coelho RN * Case Management/Social Work - Tesha Coelho RN - 06/08/2025 1:56 PM EDT Continued Stay Note [facility] Patient Name: Alexa Fuentes Today's Date: 06/08/2025 Admit Date: 06/06/2025 Plan: IDP Discharge Plan Row Name 06/08/25 1355 Plan Plan Comments Pt not at bedside this am during bedside rounding. Discussed in MDR pt to have ERCP today. Not medically ready for discharge. Pt has bed hold at [facility]. CM will cont to follow. Discharge Codes No documentation. Expected Discharge Date and Time Expected Discharge Date Expected Discharge Time Jun 11, 2025 Tesha Coelho RN * MBS/VFSS/FEES - Mariza Brunson, MS QUETA-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 - 06/07/2025 5:12 PM EDT Images from the original note were not included. Acute Care - Speech Language Pathology Swallow Initial Evaluation [facility] Fiberoptic Endoscopic Evaluation of Swallowing (FEES) Patient Name: Alexa Fuentes : 1950 Today's Date: 06/07/2025 Admit Date: 06/06/2025 Visit Dx: No diagnosis found. Patient Active Problem List Diagnosis Occipital stroke Choledocholithiasis Acute respiratory failure with hypoxia CAP (community acquired pneumonia) ESRD (end stage renal disease) Atrial fibrillation History reviewed. No pertinent past medical history. Past Surgical History: Procedure Laterality Date COLONOSCOPY KNEE SURGERY Right 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 Recommendation and Plan Recommended discharge disposition is based on the functional assessment performed by PT/OT/Speech therapy (as applicable) and may not reflect the medical necessity determined by your provider or services covered by an individual patient's insurance plan or patient resource. 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 Swallowing Diagnosis: functional oral phase, functional pharyngeal phase (06/07/25 1630) 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 Diet Recommendation: regular textures, thin liquids (06/07/25 1630) Recommended Precautions and Strategies: upright posture during/after eating (06/07/25 1630) 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 Rec. for Method of Medication Administration: meds whole, with thin liquids, with puree, as tolerated (06/07/25 1630) Monitor for Signs of Aspiration: no problems identified requiring continued intervention (06/07/25 1630) Recommended Diagnostics: No further 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 services recommended (06/07/25 1630) Swallow Criteria for Skilled Therapeutic Interventions Met: no problems identified which require skilled intervention (06/07/25 1630) Anticipated Discharge Disposition (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): correction facility (06/07/25 1630) Therapy Frequency (Swallow): evaluation only (06/07/25 1630) Oral Care Recommendations: Oral Care BID/PRN (06/07/25 1630) Progress: improving SWALLOW EVALUATION (Last 72 Hours) 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 Adult Swallow Evaluation Row Name 06/07/25 1630 06/07/25 1330 Rehab Evaluation Document Type evaluation -EC -- Subjective Information no complaints -EC -- Patient Observations alert;cooperative;agree to therapy -EC -- Patient/Family/Caregiver Comments/Observations son present -EC -- Patient Effort good -EC -- Symptoms Noted During/After Treatment none -EC -- General Information Patient Profile Reviewed yes -EC -- Pertinent History Of Current Problem See AM eval. Referred for FEES. -EC -- Current Method of Nutrition NPO -EC NPO -SM (r) LS (t) SM (c) Precautions/Limitations, Vision WFL;for purposes of eval -EC -- Precautions/Limitations, Hearing WFL;for purposes of eval -EC -- Prior Level of Function-Communication unknown -EC unknown -SM (r) LS (t) SM (c) Prior Level of Function-Swallowing no diet consistency restrictions -EC -- Plans/Goals Discussed with patient;family;agreed upon -EC -- Barriers to Rehab medically complex -EC -- Patient's Goals for Discharge return to PO diet -EC -- Family Goals for Discharge patient able to return to PO diet -EC -- Pain Additional Documentation Pain Scale: FACES Pre/Post-Treatment (Group) -EC -- Pain Scale: FACES Pre/Post-Treatment Pain: FACES Scale, Pretreatment 2-->hurts little bit -EC -- Posttreatment Pain Rating 2-->hurts little bit -EC -- Oral Motor Structure and Function Dentition Assessment upper dentures/partial in place -EC upper dentures/partial in place -SM (r) LS(t) SM (c) Secretion Management WNL/WFL -EC -- Mucosal Quality moist, healthy -EC -- Volitional Swallow WFL -EC -- Oral Musculature and Cranial Nerve Assessment Oral Motor General Assessment -- WFL -SM (r) LS (t) SM (c) General Eating/Swallowing Observations Respiratory Support Currently in Use nasal cannula -EC nasal cannula -SM (r) LS (t) SM (c) Eating/Swallowing Skills fed by staff/caregiver -EC fed by 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;needed assist -SM (r) LS (t) SM (c) Positioning During Eating upright in bed -EC upright in bed -SM (r) LS (t) SM (c) Utensils Used spoon;cup;straw -EC spoon;straw;cup -SM (r) LS (t) SM (c) Consistencies Trialed regular textures;pureed;thin liquids -EC regular textures;pureed;ice chips;thin liquids;nectar/syrup-thick liquids -SM (r) LS (t) SM (c) Respiratory Respiratory Status WFL -EC -- Clinical Swallow Eval Oral Prep Phase -- WFL -SM (r) LS (t) SM (c) Oral Transit -- WFL -SM (r) LS (t) SM (c) Oral Residue -- WFL -SM (r) LS (t) SM (c) Pharyngeal Phase -- suspected pharyngeal impairment -SM (r) LS (t) SM (c) Esophageal Phase -- unremarkable -SM (r) LS (t) SM (c) Pharyngeal Phase Concerns Pharyngeal Phase Concerns -- wet vocal quality;cough -SM (r) LS (t) SM (c) Wet Vocal Quality -- thin;other (see comments) ice chips and puree -SM (r) LS (t) SM (c) Cough -- other (see comments) wet cough following trials. -SM (r) LS (t) SM (c) Fiberoptic Endoscopic Evaluation of Swallowing (FEES) Risks/Benefits Reviewed risks/benefits explained;patient;family;agreed to eval - EC -- Nasal Entry right: -EC -- Scope serial number/identification [id number] -EC -- Anatomy and Physiology Anatomic Considerations no anatomic structural deviation -EC -- Velopharyngeal WFL -EC -- Base of Tongue symmetrical -EC -- Epiglottis WFL -EC -- Laryngeal Function Breathing symmetrical -EC -- Laryngeal Function Phonation symmetrical -EC -- Laryngeal Function to Breath Hold TVF/FVF/Arytenoid;sustained closure -EC -- Secretion Rating Scale (Vimal et al. 1996) 0- normal, no visible secretions -EC -- Secretion Description thin -EC -- Ice Chips DNA -EC -- Spontaneous Swallow frequency adequate -EC -- Sensory sensed scope -EC -- FEES Interpretation Oral Phase WFL -EC -- Initiation of Pharyngeal Swallow Initiation of Pharyngeal Swallow WFL -EC -- Pharyngeal Phase functional pharyngeal phase of swallow -EC -- 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 Evaluation Clinical Impression 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 Swallowing Diagnosis functional oral phase;functional pharyngeal phase -EC functional oral phase;suspected pharyngeal dysphagia -SM (r) LS (t) SM (c) Functional Impact no impact on function -EC risk of aspiration/pneumonia -SM (r) LS (t) SM (c) Rehab Potential/Prognosis, Swallowing -- good, to achieve stated therapy goals - SM (r) LS (t) SM (c) Swallow Criteria for Skilled Therapeutic Interventions Met no problems identified which require skilled intervention -EC demonstrates skilled criteria -SM (r) LS (t) SM (c) Recommendations Therapy Frequency (Swallow) evaluation only -EC -- 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 Diet Recommendation regular textures;thin liquids -EC -- -SM (r) LS (t) SM (c) Recommended Diagnostics No further 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 services recommended -EC FEES -SM (r) LS (t) SM (c) Recommended Precautions and Strategies upright posture during/after eating -EC general aspiration precautions -SM (r) LS (t) SM (c) Oral Care Recommendations Oral Care BID/PRN -EC Oral Care BID/PRN -SM (r) LS (t) SM (c) 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 Rec. for Method of Medication Administration meds whole;with thin liquids;with puree;as tolerated -EC -- Monitor for Signs of Aspiration no problems identified requiring continued intervention -EC yes;notify 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 if any concerns -SM (r) LS (t) SM (c) Anticipated Discharge Disposition (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) correction facility -EC correction facility -SM (r) LS (t) SM (c) User Alvarez (r) = Recorded By, (t) = Taken By, (c) = Cosigned By Initials Name Effective Dates Batsheva Osborne, MS CCC-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 10/02/24 - EC Mariza Brunson, MS [facility]-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 07/06/24 - LS Roxanne Travis, Speech Therapy Student 05/01/25 - EDUCATION The patient has been educated in the following areas: Dysphagia (Swallowing Impairment). 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 GOALS Row Name 06/07/25 1330 Patient will demonstrate functional communication skills for return to discharge environment [place] Independently -SM (r) LS (t) SM (c) Time frame 2 weeks -SM (r) LS (t) SM (c) Progress/Outcomes new goal -SM (r) LS (t) SM (c) 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 Diagnostic Treatment Patient will participate in further assessment in the following areas higher- level cognitive-linguistic;motor speech;clarification of baseline cognitive communication status -SM (r) LS (t) SM (c) Time Frame (Diagnostic) 1 week -SM (r) LS (t) SM (c) Progress/Outcomes (Additional Goal 1, 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) new goal -SM (r) LS (t) SM (c) User Alvarez (r) = Recorded By, (t) = Taken By, (c) = Cosigned By Initials Name Provider Type Batsheva Osborne, [facility]-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 Speech and Language Pathologist Roxanne Loyd, Speech Therapy Student 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 Student Time Calculation: Time Calculation- 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 Row Name 06/07/25 1711 06/07/25 1430 Time Calculation- 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 Start Time 1630 -EC 1330 -SM (r) LS (t) SM (c) 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 Received On 06/07/25 -EC 06/07/25 -SM (r) LS (t) SM (c) Untimed Charges 57660-NZ Eval Speech and Production w/ Language Minutes -- 35 -SM (r) LS (t) SM (c) 05353-RY Eval Oral Pharyng Swallow Minutes -- 30 -SM (r) LS (t) SM (c) 37510-RL Fiberoptic Endo Eval Swallow Minutes 38 -EC -- Total Minutes Untimed Charges Total Minutes 38 -EC 65 -SM (r) LS (t) Total Minutes 38 -EC 65 -SM (r) LS (t) User Alvarez (r) = Recorded By, (t) = Taken By, (c) = Cosigned By Initials Name Provider Type Batsheva Osborne, [facility]-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 Speech and Language Pathologist Mariza Trevino, MS [facility]-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 Speech and Language Pathologist Roxanne Loyd, Speech Therapy Student 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 Student Therapy Charges for Today Code Description Service Date Service Provider Modifiers Qty [id number] HC [facility] FIBEROPTIC ENDO EVAL SWALL 3 06/07/2025 Mariza Brunson, MS CCC- 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 GN, KX 1 Mariza Brunson MS CCC-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 06/07/2025 * Therapy Evaluation - Roxanne Travis, Speech Therapy Student - 06/07/2025 2:33 PM EDT Images from the original note were not included. Acute Care - Speech Language Pathology Swallow Initial Evaluation [facility] Clinical Swallow Evaluation Cognitive-Communication Evaluation Patient Name: Alexa Fuentes : 1950 Today's Date: 06/07/2025 Admit Date: 06/06/2025 Visit Dx: ICD-10-CM ICD-9-CM 1. Dysphagia, unspecified type R13.10 787.20 Patient Active Problem List Diagnosis Occipital stroke Choledocholithiasis Acute respiratory failure with hypoxia CAP (community acquired pneumonia) ESRD (end stage renal disease) Atrial fibrillation History reviewed. No pertinent past medical history. Past Surgical History: Procedure Laterality Date COLONOSCOPY KNEE SURGERY Right 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 Recommendation and Plan Recommended discharge disposition is based on the functional assessment performed by PT/OT/Speech therapy (as applicable) and may not reflect the medical necessity determined by your provider or services covered by an individual patient's insurance plan or patient resource. 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 Swallowing Diagnosis: (P) functional oral phase, suspected pharyngeal dysphagia (06/07/25 133) Recommended Precautions and Strategies: (P) general aspiration precautions (06/07/251329) Monitor for Signs of Aspiration: (P) yes, notify 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 if any concerns (06/07/251329) Recommended Diagnostics: (P) FEES (06/07/251329) Swallow Criteria for Skilled Therapeutic Interventions Met: (P) demonstrates skilled criteria (06/07/251329) Anticipated Discharge Disposition (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): (P) correction facility (06/07/25 1330) Rehab Potential/Prognosis, Swallowing: (P) good, to achieve stated therapy goals (06/07/251329) Predicted Duration Therapy Intervention (Days): (P) 2 weeks (06/07/25 1330) Oral Care Recommendations: (P) Oral Care BID/PRN (06/07/25 1330) Progress: (P) no change SWALLOW EVALUATION (Last 72 Hours) 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 Adult Swallow Evaluation Row Name 06/07/25 1330 General Information Current Method of Nutrition NPO (P) -LS Prior Level of Function-Communication unknown (P) -LS Oral Motor Structure and Function Dentition Assessment upper dentures/partial in place (P) -LS Oral Musculature and Cranial Nerve Assessment Oral Motor General Assessment WFL (P) -LS General Eating/Swallowing Observations Respiratory Support Currently in Use nasal cannula (P) -LS Eating/Swallowing Skills fed by 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;needed assist (P) -LS Positioning During Eating upright in bed (P) -LS Utensils Used spoon;straw;cup (P) -LS Consistencies Trialed regular textures;pureed;ice chips;thin liquids;nectar/syrup-thick liquids (P)-LS Clinical Swallow Eval Oral Prep Phase WFL (P) -LS Oral Transit WFL (P) -LS Oral Residue WFL (P) -LS Pharyngeal Phase suspected pharyngeal impairment (P) -LS Esophageal Phase unremarkable (P) -LS Pharyngeal Phase Concerns Pharyngeal Phase Concerns wet vocal quality;cough (P) -LS Wet Vocal Quality thin;other (see comments) (P) ice chips and puree -LS Cough other (see comments) (P) wet cough following trials. -LS 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 Evaluation Clinical Impression 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 Swallowing Diagnosis functional oral phase;suspected pharyngeal dysphagia (P) -LS Functional Impact risk of aspiration/pneumonia (P) -LS Rehab Potential/Prognosis, Swallowing good, to achieve stated therapy goals (P) -LS Swallow Criteria for Skilled Therapeutic Interventions Met demonstrates skilled criteria (P) -LS Recommendations 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 Diet Recommendation -- (P) -LS Recommended Diagnostics FEES (P) -LS Recommended Precautions and Strategies general aspiration precautions (P) -LS Oral Care Recommendations Oral Care BID/PRN (P) -LS Monitor for Signs of Aspiration yes;notify 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 if any concerns (P) -LS Anticipated Discharge Disposition (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) correction facility (P) -LS User Alvarez (r) = Recorded By, (t) = Taken By, (c) = Cosigned By Initials Name Effective Dates Roxanne Loyd, Speech Therapy Student 05/01/25 - EDUCATION The patient has been educated in the following areas: Cognitive Impairment Communication Impairment Dysphagia (Swallowing Impairment) Oral Care/Hydration. 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 GOALS Row Name 06/07/25 1330 Patient will demonstrate functional communication skills for return to discharge environment [place] Independently (P) -LS Time frame 2 weeks (P) -LS Progress/Outcomes new goal (P) -LS 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 Diagnostic Treatment Patient will participate in further assessment in the following areas higher- level cognitive-linguistic;motor speech;clarification of baseline cognitive communication status (P) -LS Time Frame (Diagnostic) 1 week (P) -LS Progress/Outcomes (Additional Goal 1, 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) new goal (P) -LS User Alvarez (r) = Recorded By, (t) = Taken By, (c) = Cosigned By Initials Name Provider Type Roxanne Loyd, Speech Therapy Student 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 Student Time Calculation: Time Calculation- 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 Row Name 06/07/25 1430 Time Calculation- 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 Start Time 1330 (P) -LS 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 Received On 06/07/25 (P) -LS Untimed Charges 94330-AT Eval Speech and Production w/ Language Minutes 35 (P) -LS 09585-ID Eval Oral Pharyng Swallow Minutes 30 (P) -LS Total Minutes Untimed Charges Total Minutes 65 (P) -LS Total Minutes 65 (P) -LS User Alvarez (r) = Recorded By, (t) = Taken By, (c) = Cosigned By Initials Name Provider Type LS Roxanne Travis, Speech Therapy Student 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 Student Therapy Charges for Today Code Description Service Date Service Provider Modifiers Qty [id number] HC ST EVAL SPEECH AND PROD W LANG 3 06/07/2025 Roxanne Travis Speech Therapy StudentGN, KX [id number] EVAL ORAL PHARYNG SWALLOW 2 06/07/2025 Roxanne Travis Speech Therapy Student GN, KX 1 Roxanne Gardner Speech Therapy Student 06/07/2025 and Acute Care - Speech Language Pathology Initial Evaluation [place] Patient Name: Alexa Fuentes : 1950 Today's Date: 06/07/2025 Admit Date: 06/06/2025 Visit Dx: ICD-10-CM ICD-9-CM 1. Dysphagia, unspecified type R13.10 787.20 Patient Active Problem List Diagnosis Occipital stroke Choledocholithiasis Acute respiratory failure with hypoxia CAP (community acquired pneumonia) ESRD (end stage renal disease) Atrial fibrillation History reviewed. No pertinent past medical history. Past Surgical History: Procedure Laterality Date COLONOSCOPY KNEE SURGERY Right 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 Recommendation and Plan Recommended discharge disposition is based on the functional assessment performed by PT/OT/Speech therapy (as applicable) and may not reflect the medical necessity determined by your provider or services covered by an individual patient's insurance plan or patient resource. 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 Diagnosis: (P) functional cognitive-linguistic skills (06/07/251329) 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 Diagnosis Comments: (P) Pt son reported this is baseline for pt. (06/07/251329) Monitor for Signs of Aspiration: (P) yes, notify 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 if any concerns (06/07/251329) Swallow Criteria for Skilled Therapeutic Interventions Met: (P) demonstrates skilled criteria (06/07/251329) SLC Criteria for Skilled Therapy Interventions Met: (P) yes (06/07/251329) Anticipated Discharge Disposition (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): (P) correction facility (06/07/251329) Therapy Frequency (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 SLC): (P) 5 days per week (06/07/251329) Predicted Duration Therapy Intervention (Days): (P) 2 weeks (06/07/251329) Oral Care Recommendations: (P) Oral Care BID/PRN (06/07/251329) Progress: (P) no change (06/07/25 143) 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 EVALUATION (Last 72 Hours) 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 SLC Evaluation Row Name 06/07/251329 Communication Assessment/Intervention Document Type evaluation (P) -LS Subjective Information no complaints (P) -LS Patient Observations alert;cooperative (P) -LS Patient/Family/Caregiver Comments/Observations Son present (P) -LS Patient Effort good (P) -LS Symptoms Noted During/After Treatment none (P) -LS General Information Patient Profile Reviewed yes (P) -LS Pertinent History Of Current Problem Presents to [facility] w/ altered mental status, concern for stroke, and dysarthria. Hx of end-stage CKD on hemidialysis A-fib, COPD, hyperlipidemia, and HTN. CT: subacute L occipital ischemia. (P) -LS Precautions/Limitations, Vision WFL;for purposes of eval (P) -LS Precautions/Limitations, Hearing WFL;for purposes of eval (P) -LS Plans/Goals Discussed with patient;family;agreed upon (P) -LS Barriers to Rehab medically complex (P) -LS Patient's Goals for Discharge patient did not state (P) -LS Pain Pretreatment Pain Rating 10/10 (P) -LS Posttreatment Pain Rating 10/10 (P) -LS Pain Location buttock (P) -LS Pain Side/Orientation generalized (P) -LS Pain Management Interventions nursing notified (P) -LS Comprehension Assessment/Intervention Comprehension Assessment/Intervention Auditory Comprehension (P) -LS Auditory Comprehension Assessment/Intervention Auditory Comprehension (Communication) WFL (P) -LS Answers Questions (Communication) yes/no;wh questions;personal;WFL (P) -LS Able to Follow Commands (Communication) 1-step;WFL (P) -LS Narrative Discourse conversational level;WFL (P) -LS Expression Assessment/Intervention Expression Assessment/Intervention verbal expression (P) -LS Verbal Expression Assessment/Intervention Verbal Expression WFL (P) -LS Automatic Speech (Communication) response to greeting;WFL (P) -LS Sentence Formulation WFL (P) -LS Conversational Discourse/Fluency WFL (P) -LS Cursory Voice Assessment/Intervention Quality and Resonance (Voice) WFL (P) -LS Cognitive Assessment Intervention- 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 Cognitive Function (Cognition) WFL (P) -LS Orientation Status (Cognition) person;place;time;awareness of basic personal information;WFL (P) -LS Attention (Cognitive) WFL (P) -LS 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 Evaluation Clinical Impressions 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 Diagnosis functional cognitive-linguistic skills (P) -LS 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 Diagnosis Comments Pt son reported this is baseline for pt. (P) -LS Rehab Potential/Prognosis good (P) -LS SLC Criteria for Skilled Therapy Interventions Met yes (P) -LS Recommendations Therapy Frequency (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 SLC) 5 days per week (P) -LS Predicted Duration Therapy Intervention (Days) 2 weeks (P) -LS User Alvarez (r) = Recorded By, (t) = Taken By, (c) = Cosigned By Initials Name Effective Dates LS Roxanne Travis, Speech Therapy Student 05/01/25 - EDUCATION The patient has been educated in the following areas: Cognitive Impairment Communication Impairment Dysphagia (Swallowing Impairment) Oral Care/Hydration. 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 GOALS Row Name 06/07/25 1330 Patient will demonstrate functional communication skills for return to discharge environment [place] Independently (P) -LS Time frame 2 weeks (P) -LS Progress/Outcomes new goal (P) -LS 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 Diagnostic Treatment Patient will participate in further assessment in the following areas higher- level cognitive-linguistic;motor speech;clarification of baseline cognitive communication status (P) -LS Time Frame (Diagnostic) 1 week (P) -LS Progress/Outcomes (Additional Goal 1, 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) new goal (P) -LS User Alvarez (r) = Recorded By, (t) = Taken By, (c) = Cosigned By Initials Name Provider Type LS Roxanne Travis, Speech Therapy Student 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 Student Time Calculation: Time Calculation- 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 Row Name 06/07/25 1430 Time Calculation- 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 Start Time 1330 (P) -LS 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 Received On 06/07/25 (P) -LS Untimed Charges 65106-[id number] Eval Speech and Production w/ Language Minutes 35 (P) -LS 57570-VT Eval Oral Pharyng Swallow Minutes 30 (P) -LS Total Minutes Untimed Charges Total Minutes 65 (P) -LS Total Minutes 65 (P) -LS User Alvarez (r) = Recorded By, (t) = Taken By, (c) = Cosigned By Initials Name Provider Type LS Roxanne Travis, Speech Therapy Student 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 Student Therapy Charges for Today Code Description Service Date Service Provider Modifiers Qty [id number] HC ST EVAL SPEECH AND PROD W LANG 3 06/07/2025 Roxanne Travis Speech Therapy StudentGN, KX [id number] EVAL ORAL PHARYNG SWALLOW 2 06/07/2025 Roxanne Travis Speech Therapy Student GN, KX 1 Roxanne Gardner Speech Therapy Student 06/07/2025 Cosigned by Batsheva Spears MS CCC-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 at 06/07/2025 3:27 PM EDT Associated attestation - Batsheva Spears MS CCC-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 - 06/07/2025 3:27 PM EDT Batsheva Spears MS CCC-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 * Case Management/Social Work - Tesha Coelho RN - 06/07/2025 11:14 AM EDT Images from the original note were not included. Discharge Planning Assessment [facility] Patient Name: Alexa Fuentes Today's Date: 06/07/2025 Admit Date: 06/06/2025 Plan: IDP Discharge Needs Assessment Row Name 06/07/25 1104 Living Environment People in Home facility resident Name(s) of People in Home [facility] Current Living Arrangements residential facility Potentially Unsafe Housing Conditions none In the past 12 months has the electric, gas, oil, or water company threatened to shut off services in your home? No Primary Care Provided by other (see comments) Facility Provides Primary Care For no one, unable/limited ability to care for self;no one Family Caregiver if Needed other (see comments) Quality of Family Relationships involved;helpful Able to Return to Prior Arrangements yes Living Arrangement Comments Bed hold Resource/Environmental Concerns Resource/Environmental Concerns none Transportation Concerns none Transportation Needs In the past 12 months, has lack of transportation kept you from medical appointments or from getting medications? Pt Unable In the past 12 months, has lack of transportation kept you from meetings, work, or from getting things needed for daily living? Pt Unable Food Insecurity Within the past 12 months, you worried that your food would run out before you got the money to buymore. Pt Unable Within the past 12 months, the food you bought just didn't last and you didn't have money to get more. Pt Unable Transition Planning Patient/Family Anticipates Transition to long-term care facility Patient/Family Anticipated Services at Transition none Discharge Needs Assessment Readmission Within the Last 30 Days no previous admission in last 30 days Equipment Currently Used at Home wheelchair;lift device Concerns to be Addressed no discharge needs identified Do you want help finding or keeping work or a job? Patient unable to answer Do you want help with school or training? For example, starting or completing job training or getting a high school diploma, GED or equivalent No Anticipated Changes Related to Illness none Equipment Needed After Discharge none Discharge Plan Row Name 06/07/25 1107 Plan Plan IDP Patient/Family in Agreement with Plan yes Plan Comments Spoke with son via phone for IDP r/t pt documented confused and not at bedside duringbedside rounding. Pt resides LTC at [facility] for the last approx 1 yr. Spoke with Tenisha in admissions and pt is able to return and has bed hold. Pt requires lift into and is dependent with ADL's. 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 Meds and PCP are pro vided by facility. Pharmacy updated in EPIC. Pt will return to facility when medically appropriate and will probably require EMS transport. CM will cont to follow for discharge planning. Final Discharge Disposition Code 04 - intermediate care facility Continued Care and Services - Admitted Since 06/06/2025 Destination Coordination complete. Service Provider Request Status Services Address Phone Fax Patient Preferred [facility] Selected Intermediate Care [place] [phone] -- Demographic Summary Row Name 06/07/25 1103 General Information Admission Type inpatient Arrived From [facility] Referral Source admission list Reason for Consult decision-making Preferred Language Cook Islander Functional Status Row Name 06/07/25 1104 Functional Status Usual Activity Tolerance moderate Current Activity Tolerance fair Physical Activity On average, how many days per week do you engage in moderate to strenuous exercise (like a brisk walk)? 0 days On average, how many minutes do you engage in exercise at this level? 0 min Number of minutes of exercise per week 0 Functional Status, IADL Medications completely dependent Meal Preparation completely dependent Housekeeping completely dependent Laundry completely dependent Shopping completely dependent If for any reason you need help with day-to-day activities such as bathing, preparing meals, shopping, managing finances, etc., do you get the help you need? I get all the help I need Psychosocial No documentation. Abuse/Neglect No documentation. Legal No documentation. Substance Abuse No documentation. Patient Forms No documentation. Tesha Coelho RN documented in this encounter Plan of Treatment Upcoming Encounters Date Type Department Care Team (Late st Contact Info) Description 12:30 PM EST Pre-Admission Testing [facility] PREADMISSION T [address] [place] [address] 5 3:20 PM EST Hospital Encounter [facility] ENDO SUITES [address] [place] [id number] Arnel Bell MD [address] [facility] [address] [place], [place] [id number] 5 3:20 PM EST - 5 4:02 PM EST Surgery [facility] ENDO SUITES [address] [place] [address] Arnel Bell MD [address] [facility] [address] [place], [place] [id number] ENDOSCOPIC RETROGRADE CHOLANGIOPANCREATOGRAPHY [[id number] (CPT )] Scheduled Orders Name Type Priority Associated Diagnoses Orde r Schedule Legionella Antigen, Urine - Urine, Urine, Clean Catch Microbiology Routine Once for 1 Occurrences starting 06/08/2025 until 06/08/2025 S. Pneumo Ag Urine or CSF - Urine, Urine, Clean Catch Microbiology Routine Once for 1 Occurrences starting 06/08/2025 until 06/08/2025 Scheduled Procedures Name Priority Associated Diagnoses Date/Ti me ENDOSCOPIC RETROGRADE CHOLANGIOPANCREATOGRAPHY Encounter for removal of biliary stent 08/16/2025 3:20 PM EST Scheduled Referrals Name Type Priority Associated Diagnoses Order Schedule Ambulatory Referral to Neurology Outpatient Referral Routine Occipital stroke Ordered: 06/07/2025 Ambulatory referral for Screening EGD Outpatient Referral Routine Choledocholithiasis Ordered: 06/08/2025 documented as of this encounter Procedures Procedure Name Priority Date/Time Associated Diagnosis Comments RESPIRATORY PANEL PCR W/ COVID-19 (SARS-COV-2), PUSH [employer] SW[employer] ASSEM[employer]ER SWAB IN UTM/VTP, 2 HR TAT Routine 06/14/2025 7:13 AM EDT HEMODIALYSIS INPATIENT Routine 1:44 PM EDT POCT GLUCOSE FINGERSTICK Routine 06/11/2025 8:27 PM EDT JARED W/ COMPLETE DOPPLER, COLOR AND 3D Routine 06/11/2025 1:59 PM EDT CBC (NO DIFF) Routine 06/11/2025 8:10 AM EDT MAGNESIUM Routine 06/11/2025 8:10 AM EDT HEPATIC FUNCTION PANEL Add-On 8:10 AM EDT BASIC METABOLIC PANEL Routine 06/11/2025 8:[address] SOFT TISSUE NECK WO CONTRAST Routine 06/10/2025 10:57 PM EDT CBC (NO DIFF) Routine 06/10/2025 3:22 PM EDT PHOSPHORUS Routine 06/10/2025 3:22 PM EDT COMPREHENSIVE METABOLIC PANEL Routine 06/10/2025 3:22 PM EDT HEMODIALYSIS INPATIENT Routine 1:57 PM EDT MAGNESIUM Routine 06/09/2025 2:26 PM EDT TISSUE PATHOLOGY EXAM Routine 06/09/2025 12:00 PM EDT Cholecystitis OR LAPAROSCOPY SURG CHOLECYSTECTOMY 06/09/2025 10:25 AM EDT Choledocholithiasi s SCANNED - TELEMETRY 06/09/2025 7 :36 AM EDT MRSA DNA PROBE Routine 06/08/2025 7:05 PM EDT HEPATITIS PANEL, ACUTE Routine 2:52 PM EDT FL ERCP PANCREATIC AND BILIARY DUCTS Routine 06/08/2025 12:51 PM EDT OR ERCP DX COLLECTION SPECIMEN BRUSHING/WASHING 06/08/2025 10:46 AM EDT ERCP 06/08/2025 10:27 AM EDT ECG 12-LEAD Routine 06/08/2025 9:17 AM EDT CBC (NO DIFF) Routine 06/08/2025 8:48 AM EDT COMPREHENSIVE METABOLIC PANEL Routine 06/08/2025 8:48 AM EDT WOUND OSTOMY EVAL AND TREAT Routine 06/07/2025 6:11 PM EDT 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 FEES FIBEROPTIC ENDO EVAL SWALLOW Routine 06/07/2025 4:59 PM EDT DUPLEX CAROTID BILATERAL CAR - PERFORMED PROCEDURE Routine 06/07/2025 3:55 PM EDT ECHO COMPLETE W/ DOPPLER AND COLOR FLOW Routine 06/07/2025 3:44 PM EDT HEMODIALYSIS INPATIENT Routine 3:22 PM EDT WOUND OSTOMY EVAL AND TREAT Routine 06/07/2025 1:09 PM EDT WOUND OSTOMY EVAL AND TREAT Routine 06/07/2025 1:09 PM EDT MRI ABDOMEN WO CONTRAST MRCP Routine 06/07/2025 10:07 AM EDT MRI BRAIN WO CONTRAST Routine 06/07/2025 10:05 AM EDT KIMANI AURIS PCR Urgent 06/07/2025 8:4 5 AM EDT BLOOD CULTURE STAT 06/07/2025 6:03 AM EDT LACTIC ACID, PLASMA Urgent 06/07/2025 6 :03 AM EDT BLOOD CULTURE STAT 06/07/2025 6:01 AM EDT POCT GLUCOSE FINGERSTICK Routine 06/07/2025 5:29 AM EDT HEMOGLOBIN A1C WITH MPG Urgent 06/07/20 1:05 AM EDT TSH RFX ON ABNORMAL TO FREE T4 Urgent 06/07/2025 12:57 AM EDT CBC WITH AUTO DIFFERENTIAL STAT 06/07/2025 12:57 AM EDT MAGNESIUM STAT 06/07/2025 12:57 AM EDT LIPID PANEL Urgent 06/07/2025 12:57 AM EDT COMPREHENSIVE METABOLIC PANEL Urgent 06/07/2025 12:57 AM EDT WOUND OSTOMY EVAL AND TREAT Routine 06/06/2025 11:30 PM EDT POCT GLUCOSE FINGERSTICK Routine 06/06/2025 10:[address] OUTSIDE ABD/PELVIS Routine 06/06/2025 8:[address] OUTSIDE FILMS Routine 06/06/2025 8:[address] OUTSIDE NECK Routine 06/06/2025 8:[address] OUTSIDE HEAD Routine 06/06/2025 8:[address] OUTSIDE FILMS Routine 06/06/2025 8:47 PM EDT documented in this encounter Results * Respiratory Panel PCR w/COVID-19(SARS-CoV-2) ZHANE/SALAZAR/MELY/PAD/COR/GELY In-House, PUSH [employer] SW[employer] ASSEM[employer]ER Swab in UTM/VTM, 2 HR TAT - Swab, Nasopharynx (06/14/2025 7:13 AM EDT) ADENOVIRUS, PCR Not Detected Not Detected BIOFIRE TORCH 06/14/2025 8:15 AM EDT [facility] Coronavirus 229E Not Detected Not Detected BIOFIRE TORCH 06/14/2025 8:15 AM EDT [facility] Coronavirus HKU1 Not Detected Not Detected BIOFIRE TORCH 06/14/2025 8:15 AM EDT [facility] Coronavirus NL63 Not Detected Not Detected BIOFIRE TORCH 06/14/2025 8:15 AM EDT [facility] Coronavirus OC43 Not Detected Not Detected BIOFIRE TORCH 06/14/2025 8:15 AM EDT [facility] COVID19 Not Detected Not Detected - Ref. Range BIOFIRE TOR 06/14/2025 8:15 AM EDT [facility] Human Metapneumovirus Not Detected Not Detected BIOFIRE TOR 06/14/2025 8:15 AM EDT [facility] Human Rhinovirus/Enterov irus Not Detected Not Detected BIOFIRE TOR 06/14/2025 8:15 AM EDT [facility] Influenza A PCR Not Detected Not Detected BIOFIRE TOR 06/14/2025 8:15 AM EDT [facility] Influenza B PCR Not Detected Not Detected BIOFIRE TOR 06/14/2025 8:15 AM EDT [facility] Parainfluenza Virus 1 Not Detected Not Detected BIOFIRE TOR 06/14/2025 8:15 AM EDT [facility] Parainfluenza Virus 2 Not Detected Not Detected BIOFIRE TOR 06/14/2025 8:15 AM EDT [facility] Parainfluenza Virus 3 Not Detected Not Detected BIOFIRE TOR 06/14/2025 8:15 AM EDT [facility] Parainfluenza Virus 4 Not Detected Not Detected BIOFIRE TOR 06/14/2025 8:15 AM EDT [facility] RSV, PCR Not Detected Not Detected BIOFIRE TORCH 06/14/2025 8:15 AM EDT [facility] Bordetella pertussis pcr Not Detected Not Detected BIOFIRE TORCH 06/14/2025 8:15 AM EDT [facility] Bordetella parapertussis PCR Not Detected Not Detected BIOFIRE TORCH 06/14/2025 8:15 AM EDT [facility] Chlamydophila pneumoniae PCR Not Detected Not Detected LEA VERMA 06/14/2025 8:15 AM EDT [facility] Mycoplasma pneumo by PCR Not Detected Not Detected COUNTS INCLUDE 234 BEDS AT THE [facility] 06/14/2025 8:15 AM EDT [facility] Swab Nasopharyngeal structure / Unknown Collection / Unknown 06/14/2025 7:13 AM EDT 06/14/2025 7:13 AM EDT Narrative [facility] - 06/14/2025 8:15 AM EDT In the setting of a positive respiratory panel with a viral infection PLUS a negative procalcitonin without other underlying concern for bacterial infection, consider observing off antibiotics or discontinuation of antibiotics and continue supportive care. If the respiratory panel is positive for atypical bacterial infection (Bordetella pertussis, Chlamydophila pneumoniae, or Mycoplasma pneumoniae), consider antibiotic de-escalation to target atypical bacterial infection. Ivonne Ralph MD MICROBIOLOGY - GENERAL ORDERABLES Final Result Performing Organization Address City/[facility]/ZIP Co de Phone Number [facility]
[address] [place] [address], [place] [phone] * POC Glucose Once (06/11/2025 8:27 PM EDT) [facility] Glucose 84 70 - 130 mg/dL 06/11/2025 8:29 PM EDT [facility] Comment:Serial Number: [id number] Blood 06/11/2025 8:27 PM EDT 06/11/2025 8:29 PM EDT Ivonne Ralph MD POINT OF CARE TEST ORDERABLES Final Result Performing Organization Address City/[facility] Co de Phone Number [facility]
[address] [place] [address], [place] [phone] * JARED W/ COMPLETE DOPPLER, COLOR AND 3D (06/11/2025 1:59 PM EDT) [facility] CV ECHO SHUNT ASSESSMENT PERFORMED (HIDDEN SCRIPTING) 1 Ao pk brianna 42.0 cm/sec Ao max PG 24 mmHg Ao root diam 4.1 cm Anatomical Region Laterality Modality Other Addenda Addendum by Felipe Toro MD on 06/11/2025 3:12 PM EDT Left ventricular ejection fraction appears to be 56 - 60%. No evidence of a left atrial appendage thrombus was present. A catheter is present in the right atrium. Severe mitral annular calcification is present. Mild to moderate mitral valve regurgitation is present. No significant mitral valve stenosis is present. There is moderate calcification of the aortic valve. Moderate aortic valve regurgitation is present. Moderate aortic valve stenosis is present. Mean gradient 24mmHg Moderate tricuspid valve regurgitation is present. Estimated right ventricular systolic pressure from tricuspid regurgitation is moderately elevated (45-55 mmHg). There is moderate, (grade 3) plaque in the aortic arch present. Mild dilation of the aortic root is present. Aortic root measures 4.1 cm. There is moderate, (grade 3) plaque in the aortic arch present. No valvular vegetations noted. No echocardiographic evidence of endocarditis I supervised and directed an independent trained observer with the assistance of monitoring the patient's level of consciousness and physiological status throughout the procedure. Intraoperative service time of 20 minutes Left Ventricle Left ventricular ejection fraction appears to be 56 - 60%. Normal left ventricular cavity size noted. Right Ventricle Normal right ventricular cavity size and systolic function noted. Left Atrium The left atrial cavity is mildly dilated. Left atrial appendage morphology best described as windsock. Doppler interrogation shows normal flow within the left atrial appendage. No evidence of a left atrial appendage thrombus was present. Right Atrium Normal right atrial cavity size noted. A catheter is present in the right atrium. Mitral Valve Severe mitral annular calcification is present. Mild to moderate mitral valve regurgitation is present. No significant mitral valve stenosis is present. Tricuspid Valve The tricuspid valve is structurally normal with no significant stenosis present. Moderate tricuspid valve regurgitation is present. Estimated right ventricular systolic pressure from tricuspid regurgitation is moderately elevated (45-55 mmHg). Aortic Valve The aortic valve is abnormal in structure. There is moderate calcification of the aortic valve. Moderate aortic valve regurgitation is present. Moderate aortic valve stenosis is present. Pulmonic Valve The pulmonic valve is structurally normal with no significant stenosis present. There is trace pulmonic valve regurgitation present. Pericardium There is no evidence of pericardial effusion. . Greater Vessels Mild dilation of the aortic root is present. There is moderate, (grade 3) plaque in the aortic arch present. Shunt Assessment Written consent was obtained for use of agitated saline to assess for shunting. JARED Procedure Details 3D rendering, reconstruction & interpretation was performed under concurrent supervision. The 3D imaging probe was used to image the heart. Acquisitions were captured in real-time 3D and full volume to assess MV anatomy and AV anatomy. Informed consent for Transesophageal Echocardiogram, and use of contrast as needed, was obtained prior to the procedure. Patient was noted to be in a fasting state, with a peripheral IV in place. A bite block was placed for probe protection. Cetacaine spray was used as an oropharyngeal topical anesthetic. Moderate sedation was utilized. The following medication(s) were administered during the procedure: 100 mcg of Fentanyl 5 mg of Versed An adult multi-frequency, multiplane transesophageal echocardiographic endoscope was inserted and manipulated in the standard fashion to achieve multiplane views. Transesophageal probe was able to be passed without difficulty. Usual basal, mid-esophageal, transgastric, and aortic views were obtained. The patient's vital signs, including blood pressure, heart rate, pulse oximetry, and cardiac rhythm were monitored throughout the procedure. Vitals signs remained stable throughout the study. The patient tolerated the procedure without evidence of oropharyngeal or esophageal trauma. us Ivonne Ralph MD CV ECHO ORDERA BLES Edited Result - Final * (ABNORMAL) Hepatic Function Panel (06/11/2025 8:10 AM EDT) Total Protein 6.1 6.0 - 8.5 g/dL 06/11/2025 9:27 AM EDT [facility] Albumin 3.1(L) 3.5 - 5.2 g/dL 06/11/2025 9:27 AM EDT [facility] ALT (SGPT) 455(H) 1 - 41 U/L 06/11/2025 9:27 AM EDT [facility] AST (SGOT) 168(H) 1 - 40 U/L 06/11/2025 9:27 AM EDT [facility] Alkaline Phosphatase 112 39 - 117 U/L 06/11/2025 9:27 AM EDT [facility] Total Bilirubin 0.4 0.0 - 1.2 mg/dL 06/11/2025 9:27 AM EDT [facility] Bilirubin, Direct 0.2 0.0 - 0.3 mg/dL 06/11/2025 9:27 AM EDT [facility] Bilirubin, Indirect 0.2 mg/dL 06/11/2025 9:27 AM EDT [facility] Blood Line / Unknown 06/11/2025 8: 10 AM EDT 06/11/2025 8:10 AM EDT Ivonne Ralph MD LAB BLOOD ORDE RABLES Final Result Performing Organization Address City/[facility]/ZIP Co de Phone Number [facility]
[address] [place] [address], * Magnesium (06/11/2025 8:10 AM EDT) Magnesium 2.2 1.6 - 2.4 mg/dL 06/11/2025 8:45 AM EDT [facility] Blood Line / Unknown 06/11/2025 8: 10 AM EDT 06/11/2025 8:10 AM EDT Ivonne Ralph MD LAB BLOOD ORDE RABLES Final Result [facility]
[address] [place] [address], * (ABNORMAL) CBC (No Diff) (06/11/2025 8:10 AM EDT) WBC 11.08(H) 3.40 - 10.80 10*3/mm3 06/11/2025 8:19 AM EDT [facility] RBC 2.75(L) 4.14 - 5.80 10*6/mm3 06/11/2025 8:19 AM EDT [facility] Hemoglobin 8.5(L) 13.0 - 17.7 g/dL 06/11/2025 8:19 AM EDT [facility] Hematocrit 27.2(L) 37.5 - 51.0 % 06/11/2025 8:19 AM EDT [facility] MCV 98.9(H) 79.0 - 97.0 fL 06/11/2025 8:19 AM EDT [facility] MCH 30.9 26.6 - 33.0 pg 06/11/2025 8:19 AM EDT [facility] MCHC 31.3(L) 31.5 - 35.7 g/dL 06/11/2025 8:19 AM EDT [facility] RDW 15.5(H) 12.3 - 15.4 % 06/11/2025 8:19 AM EDT [facility] RDW-SD 55.2(H) 37.0 - 54.0 fl 06/11/2025 8:19 AM EDT [facility] MPV 10.1 6.0 - 12.0 fL 06/11/2025 8:19 AM EDT [facility] Platelets 206 140 - 450 10*3/mm3 06/11/2025 8:19 AM EDT [facility] Blood Line / Unknown 06/11/2025 8: 10 AM EDT 06/11/2025 8:10 AM EDT us Ivonne Ralph MD LAB BLOOD ANNE-MARIE KONG Final Result [facility]
[address] [place] [address], * (ABNORMAL) Basic Metabolic Panel (06/11/2025 8:10 AM EDT) [facility] Glucose 98 65 - 99 mg/dL 06/11/2025 8:45 AM T [facility] BUN 66.9(H) 8.0 - 23.0 mg/dL 06/11/2025 8:45 AM T [facility] Creatinine 7.96(H) 0.76 - 1.27 mg/dL 06/11/2025 8:45 AM T [facility] Sodium 135(L) 136 - 145 mmol/L 06/11/2025 8:45 AM EDT [facility] Potassium 5.5(H) 3.5 - 5.2 mmol/L 06/11/2025 8:45 AM EDT [facility] Chloride 95(L) 98 - 107 mmol/L 06/11/2025 8:45 AM EDT [facility] CO2 22.9 22.0 - 29.0 mmol/L 06/11/2025 8:45 AM EDT [facility] Calcium 8.2(L) 8.6 - 10.5 mg/dL 06/11/2025 8:45 AM T [facility] BUN/Creatinine Ratio 8.4 7.0 - 25.0 06/11/2025 8:45 AM T [facility] Anion Gap 17.1(H) 5.0 - 15.0 mmol/L 06/11/2025 8:45 AM [facility] eGFR 6.5(L) >60.0 mL/min/1.7 3 06/11/2025 8:45 AM T [facility] Blood Line / Unknown 06/11/2025 8: 10 AM EDT 06/11/2025 8:10 AM EDT [facility] - 06/11/2025 8:45 AM EDT GFR Categories in Chronic Kidney Disease (CKD) GFR Category GFR (mL/min/1.73) Interpretation G1 90 or greater Normal or high (1) G2 60-89 Mild decrease (1) G3a 45-59 Mild to moderate decrease G3b 30-44 Moderate to severe decrease G4 15-29 Severe decrease G5 14 or less Kidney failure (1)In the absence of evidence of kidney disease, neither GFR category G1 or G2 fulfill the criteria for CKD. eGFR calculation 2020 CKD-EPI creatinine equation, which does not include race as a factor us Ivonne Ralph MD LAB BLOOD ANNE-MARIE KONG Final Result [facility]
[address] [place] [address], * CT Soft Tissue Neck Without Contrast (06/10/2025 10:57 PM EDT) Anatomical Region Laterality Modality Head and Neck, Vascular N/A Computed Tomography 06/11/2025 7:37 AM EDT Impressions 06/11/2025 7:44 AM EDT Impression: 1. Enlargement and fat stranding in and around the left parotid gland consistent with changes of parotiditis. No definite obstructing stone identified. 2. No cervical lymphadenopathy. 3. Changes of chronic sinusitis and left mastoiditis. 4. No significant change in left upper lobe airspace disease compatible with pneumonia. Electronically Signed: Jose Jesus MD 06/11/2025 7:44 AM EDT Workstation ID: [id number] Narrative 06/11/2025 7:[address] SOFT TISSUE NECK WO CONTRAST Date of Exam: 06/10/2025 10:57 PM EDT Indication: swelling and pain. Comparison: 06/06/2025 Technique: Axial CT images were obtained of the neck without contrast administration. Reconstructed coronal and sagittal images were also obtained. Automated exposure control and iterative construction methods were used. Findings: Visualized intracranial contents and globes and orbits appear within normal limits. Nasopharynx is normal. Oropharynx including base of tongue and epiglottis appear within normal limits. Larynx and piriform sinuses appear within normal limits. Visualized upper trachea and esophagus appear normal. Thyroid gland appears within normal limits. Bilateral submandibular glands are within There is subcutaneous fat stranding overlying the left parotid gland. The parotid glands are largely fatty replaced. There is edema and fat stranding within the left parotid gland consistent with parotitis. No definite parotid duct dilation or stone identified. No soft tissue mass visualized. Right parotid gland appears within limits. No pathologically enlarged cervical lymph nodes. There is a left internal jugular central venous catheter in place. There are right subclavian and internal jugular vein stents.. Degenerative changes are noted of the cervical spine. No lytic or sclerotic bony lesion. There is complete opacification of the left maxillary sinus unchanged. There is a polyp or mucous retention cyst within the posterior right maxillary sinus. Partial opacification of the left ethmoid air cells. There is complete opacification of the left mastoid air cells. Left middle ear cavity appears clear. There is patchy airspace disease in the left upper lobe, grossly unchanged from prior study consistent with pneumonia. Procedure Note Brian Jesus MD - 06/11/2025 CT SOFT TISSUE NECK WO CONTRAST Date of Exam: 06/10/2025 10:57 PM EDT Indication: swelling and pain. Comparison: 06/06/2025 Technique: Axial CT images were obtained of the neck without contrastadministration. Reconstructed coronal and sagittal images were alsoobtained. Automated exposure control and iterative construction methodswere used. Findings: Visualized intracranial contents and globes and orbits appear withinnormal limits. Nasopharynx is normal. Oropharynx including base of tongue and epiglottisappear within normal limits. Larynx and piriform sinuses appear within normal limits. Visualized uppertrachea and esophagus appear normal. Thyroid gland appears within normal limits. Bilateral submandibular glands are within There is subcutaneous fat stranding overlying the left parotid gland. Theparotid glands are largely fatty replaced. There is edema and fatstranding within the left parotid gland consistent with parotitis. Nodefinite parotid duct dilation or stone identified. No soft tissue mass visualized. Right parotid gland appearswithin limits. No pathologically enlarged cervical lymph nodes. There is a left internaljugular central venous catheter in place. There are right subclavian andinternal jugular vein stents.. Degenerative changes are noted of the cervical spine. No lytic orsclerotic bony lesion. There is complete opacification of the left maxillary sinus unchanged.There is a polyp or mucous retention cyst within the posterior rightmaxillary sinus. Partial opacification of the left ethmoid air cells.There is complete opacification of the left mastoid air cells. Left middle ear cavity appears clear. There is patchy airspace disease in the left upper lobe, grossly unchangedfrom prior study consistent with pneumonia. IMPRESSION: Impression: 1. Enlargement and fat stranding in and around the left parotid glandconsistent with changes of parotiditis. No definite obstructing stoneidentified. 2. No cervical lymphadenopathy. 3. Changes of chronic sinusitis and left mastoiditis. 4. No significant change in left upper lobe airspace disease compatiblewith pneumonia. Electronically Signed: Jose Jesus MD 06/11/2025 7:44 AM EDT Workstation ID: [id number] Ivonne Ralph MD IMG CT ORDERAB LES Final Result * (ABNORMAL) Phosphorus (06/10/2025 3:22 PM EDT) Phosphorus 8.9(H) 2.5 - 4.5 mg/dL 06/10/2025 3:57 PM EDT [facility] Blood Venipuncture / Unknown 06/10/2025 3:22 PM EDT 06/10/2025 3:28 PM EDT Rehan Lincoln MD LAB BLOOD ORDERABLES Final R esult [facility]
[address] [place] [address], * (ABNORMAL) Comprehensive Metabolic Panel (06/10/2025 3:22 PM EDT) Glucose 120(H) 65 - 99 mg/dL 06/10/2025 3:57 PM EDT [facility] BUN 60.9(H) 8.0 - 23.0 mg/dL 06/10/2025 3:57 PM EDT [facility] Creatinine 7.36(H) 0.76 - 1.27 mg/dL 06/10/2025 3:57 PM EDT [facility] Sodium 134(L) 136 - 145 mmol/L 06/10/2025 3:57 PM EDT [facility] Potassium 5.3(H) 3.5 - 5.2 mmol/L 06/10/2025 3:57 PM EDT [facility] Chloride 94(L) 98 - 107 mmol/L 06/10/2025 3:57 PM T [facility] CO2 21.2(L) 22.0 - 29.0 mmol/L 06/10/2025 3:57 PM [facility] Calcium 8.7 8.6 - 10.5 mg/dL 06/10/2025 3:57 PM [facility] Total Protein 5.8(L) 6.0 - 8.5 g/dL 06/10/2025 3:57 PM [facility] Albumin 3.2(L) 3.5 - 5.2 g/dL 06/10/2025 3:57 PM [facility] ALT (SGPT) 558(H) 1 - 41 U/L 06/10/2025 3:57 PM [facility] AST (SGOT) 226(H) 1 - 40 U/L 06/10/2025 3:57 PM [facility] Alkaline Phosphatase 118(H) 39 - 117 U/L 06/10/2025 3:57 PM [facility] Total Bilirubin 0.4 0.0 - 1.2 mg/dL 06/10/2025 3:57 PM [facility] Globulin 2.6 gm/dL 06/10/2025 3:57 PM [facility] Comment:Calculated Result A/G Ratio 1.2 g/dL 06/10/2025 3:57 PM [facility] BUN/Creatinine Ratio 8.3 7.0 - 25.0 06/10/2025 3:57 PM [facility] Anion Gap 18.8(H) 5.0 - 15.0 mmol/L 06/10/2025 3:57 PM [facility] eGFR 7.1(L) >60.0 mL/min/1.7 3 06/10/2025 3:57 PM [facility] Blood Venipuncture / Unknown 06/10/2025 3:22 PM EDT 06/10/2025 3:28 PM EDT Narrative [facility] - 06/10/2025 3:57 PM EDT GFR Categories in Chronic Kidney Disease (CKD) GFR Category GFR (mL/min/1.73) Interpretation G1 90 or greater Normal or high (1) G2 60-89 Mild decrease (1) G3a 45-59 Mild to moderate decrease G3b 30-44 Moderate to severe decrease G4 15-29 Severe decrease G5 14 or less Kidney failure (1)In the absence of evidence of kidney disease, neither GFR category G1 or G2 fulfill the criteria for CKD. eGFR calculation 2020 CKD-EPI creatinine equation, which does not include race as a factor us Charles Guerrero MD LAB BLOOD ORDERABLES Final Result [facility]
[address] [place] [address], * (ABNORMAL) CBC (No Diff) (06/10/2025 3:22 PM EDT) WBC 11.79(H) 3.40 - 10.80 10*3/mm3 06/10/2025 3:30 PM EDT [facility] RBC 2.83(L) 4.14 - 5.80 10*6/mm3 06/10/2025 3:30 PM EDT [facility] Hemoglobin 8.9(L) 13.0 - 17.7 g/dL 06/10/2025 3:30 PM EDT [facility] Hematocrit 28.5(L) 37.5 - 51.0 % 06/10/2025 3:30 PM EDT [facility] MCV 100.7(H) 79.0 - 97.0 fL 06/10/2025 3:30 PM EDT [facility] MCH 31.4 26.6 - 33.0 pg 06/10/2025 3:30 PM EDT [facility] MCHC 31.2(L) 31.5 - 35.7 g/dL 06/10/2025 3:30 PM EDT [facility] RDW 15.4 12.3 - 15.4 % 06/10/2025 3:30 PM EDT [facility] RDW-SD 56.4(H) 37.0 - 54.0 fl 06/10/2025 3:30 PM EDT [facility] MPV 10.7 6.0 - 12.0 fL 06/10/2025 3:30 PM EDT [facility] Platelets 179 140 - 450 10*3/mm3 06/10/2025 3:30 PM EDT [facility] Blood Venipuncture / Unknown 06/10/2025 3:22 PM EDT 06/10/2025 3:28 PM EDT Charles Guerrero MD LAB BLOOD ORDERABLES Final Result Performing Organization Address [facility]/ZIP Co de Phone Number [facility]
[address] [place] [address], * Magnesium (06/09/2025 2:26 PM EDT) Magnesium 2.0 1.6 - 2.4 mg/dL 06/09/2025 3:28 PM EDT [facility] Blood Venipuncture / Unknown 06/09/2025 2:26 PM EDT 06/09/2025 2:59 PM EDT us Charles Guerrero MD LAB BLOOD ORDERABLES Final Result [facility]
[address] [place] [address], * Tissue Pathology Exam (06/09/2025 12:00 PM EDT) Case Report Surgical Pathology Report Case: [id number] Authorizing Provider: Charles Guerrero MD Collected: 06/09/2025 12:00 PM Ordering Location: [facility] Received: 06/11/2025 06:27 AM OR Pathologist: Bryanna Morales MD Specimen: Gallbladder 06/12/2025 10:36 AM EDT [facility] Clinical Information Cholecystitis Choledocholithiasi s 06/12/2025 10:36 AM EDT [facility] Final Diagnosis Gallbladder, cholecystectomy: Acute and chronic cholecystitis and cholelithiasis 1 benign lymph node 06/12/2025 10:36 AM EDT [facility] at 1036 EDT Gross Description 1. Gallbladder. Received in formalin labeled gallbladder is a 10.5 x 5.5 x 3.1 cm previously disrupted gallbladder with a clipped cystic duct. A possible mora lymph node is identified adjacent to the cystic duct, measuring 0.8 cm in greatest dimension. The serosa is pink-white, smooth, and glistening with attached adipose tissue. The hepatic bed is mora and shaggy. Opening reveals multiple black, multifaceted choleliths, measuring up to 1.1 cm in greatest dimension. The mucosa is mora and velvety with a wall thickness that averages 0.1 cm. No distinct lesions or masses are grossly identified, and phlebotomy services representative sections from the fundus, body, and neck to include the cystic duct margin (en face) and possible lymph node (intact) are submitted in cassette 1A. AKG 06/12/2025 10:36 AM EDT [facility] Microscopic Description The slides are reviewed and demonstrate histopathologic features supporting the above rendered diagnosis. 06/12/2025 10:36 AM EDT [facility] Tissue Gallbladder structure / Unknown 06/09/2025 12:00 PM EDT 06/11/2025 6:27 AM EDT us Charles Guerrero MD PATHOLOGY/CYTOLOGY ORDERAB LES Final Result [facility]
[address] [place] [address], * Telemetry Scan (06/09/2025 7:36 AM EDT) [facility] ECG ORDERABLES Final Result * (ABNORMAL) MRSA Screen, PCR (Inpatient) - Swab, Nares (06/08/2025 7:05 PM EDT) Pathologist [facility] MRSA PCR Positive(A ) Negative CEPHEID GENEXPERT 06/08/2025 9:52 PM EDT [facility] Swab Structure of anterior naris / Unknown Collection / Unknown 06/08/2025 7:05 PM EDT 06/08/2025 7:25 PM EDT [facility] - 06/08/2025 9:52 PM EDT The negative predictive value of this diagnostic test is high and should only be used to consider de-escalating anti-MRSA therapy. A positive result may indicate colonization with MRSA and must be correlated clinically. Ivonne Ralph MD MICROBIOLOGY - GENERAL ORDERABLES Final Result [facility]
[address] [place] [address], * Hepatitis Panel, Acute (06/08/2025 2:52 PM EDT) Pathologist [facility] Hepatitis B Surface Ag Non-Reacti ve Non-Reacti ve 06/08/2025 3:43 PM EDT [facility] Hep A IgM Non-Reacti ve Non-Reacti ve 06/08/2025 3:43 PM EDT [facility] Hep B C IgM Non-Reacti ve Non-Reacti ve 06/08/2025 3:43 PM EDT [facility] Hepatitis C Ab Non-Reacti ve Non-Reacti ve 06/08/2025 3:43 PM EDT [facility] Blood Line / Unknown 06/08/2025 2: 52 PM EDT 06/08/2025 3:00 PM EDT [facility] - 06/08/2025 3:43 PM EDT Results may be falsely decreased if patient taking Biotin. us Ivnone Ralph MD LAB BLOOD ORDGerman KONG Final Result [facility]
[address] [place] [address], * [place] ERCP pancreatic and biliary ducts (06/08/2025 12:51 PM EDT) Anatomical Region Laterality Modality Body Radio Fluoroscop y 06/08/2025 3:31 PM EDT Impressions 06/08/2025 3:48 PM EDT Impression: Fluoroscopy demonstrates filling of the bile ducts. Please see procedure report for full findings. Electronically Signed: Migue Mcfarlane MD 06/08/2025 3:48 PM EDT Workstation ID: [id number] Narrative 06/08/2025 3:48 PM EDT FL ERCP PANCREATIC AND BILIARY DUCTS Date of Exam: 06/08/2025 10:49 AM EDT Indication: ENDOSCOPIC RETROGRADE CHOLANGIOPANCREATOGRAPHY. Comparison: None available. Technique: A series of radiographic digital spot films were obtained in conjunction with an endoscopic catheterization of the biliary and pancreatic ductal system, performed by the linux network administrator. Fluoroscopic Time: 5 minutes 57 seconds Number of Images: 10 Findings: Fluoroscopy demonstrates filling of the bile ducts. Procedure Note Migue Mcfarlane MD - 06/08/2025 [place] ERCP PANCREATIC AND BILIARY DUCTS Date of Exam: 06/08/2025 10:49 AM EDT Indication: ENDOSCOPIC RETROGRADE CHOLANGIOPANCREATOGRAPHY. Comparison: None available. Technique: A series of radiographic digital spot films were obtained inconjunction with an endoscopic catheterization of the biliary andpancreatic ductal system, performed by the linux network administrator. Fluoroscopic Time: 5 minutes 57 seconds Number of Images: 10 Findings: Fluoroscopy demonstrates filling of the bile ducts. IMPRESSION: Impression: Fluoroscopy demonstrates filling of the bile ducts. Please see procedurereport for full findings. Electronically Signed: Migue Mcfarlane MD 06/08/2025 3:48 PM EDT Workstation ID: [id number] us Kishore Foote MD IMG FLUOROSCOPY ORDERABLES Final Result * ERCP (06/08/2025 10:27 AM EDT) Kishore Foote MD INTERFACE NEEDS Final Result * ECG 12 Lead Pre-Op / Pre-Procedure (06/08/2025 9:17 AM EDT) QT Interval 500 ms ECG QTC Interval 460 ms ECG 06/08/2025 9:17 AM EDT 06/08/2025 12:55 PM EDT Narrative ECG - 06/08/2025 12:55 PM EDT Test Reason : Pre-Op / Pre-Procedure Blood Pressure : */* mmHG Vent. Rate : 51 BPM Atrial Rate : 51 BPM P-R Int : * ms QRS Dur : 124 ms QT Int : 500 ms P-R-T Axes : * -5 59 degrees QTcB Int : 460 ms sinus bradycardia with 1st degree AV block premature ventricular complexes Left bundle branch block Abnormal ECG When compared with ECG of 24-Mar-2011 17:09, sinus bradycardia has replaced sinus rhythm Confirmed by Felipe Toro ([id number]) on 06/08/2025 12:55:54 PM Referred By: RENARD Confirmed By: Felipe Toro Procedure Note Felipe Toro MD - 06/08/2025 Test Reason : Pre-Op / Pre-Procedure Blood Pressure : */* mmHG Vent. Rate : 51 BPM Atrial Rate : 51 BPM P-R Int : * ms QRS Dur : 124 ms QT Int : 500 ms P-R-T Axes : * -5 59 degrees QTcB Int : 460 ms sinus bradycardia with 1st degree AV block premature ventricular complexes Left bundle branch block Abnormal ECG When compared with ECG of 24-Mar-2011 17:09, sinus bradycardia has replaced sinus rhythm Confirmed by Felipe Toro ([id number]) on 06/08/2025 12:55:54 PM Referred By: RENARD Confirmed By: Felipe Toro us Tom Dover MD ECG ORDERABLES Final Result ECG * (ABNORMAL) CBC (No Diff) (06/08/2025 8:48 AM EDT) WBC 10.13 3.40 - 10.80 10*3/mm3 06/08/2025 10:22 AM EDT [facility] RBC 2.80(L) 4.14 - 5.80 10*6/mm3 06/08/2025 10:22 AM EDT [facility] Hemoglobin 8.6(L) 13.0 - 17.7 g/dL 06/08/2025 10:22 AM EDT [facility] Hematocrit 27.7(L) 37.5 - 51.0 % 06/08/2025 10:22 AM EDT [facility] MCV 98.9(H) 79.0 - 97.0 fL 06/08/2025 10:22 AM EDT [facility] MCH 30.7 26.6 - 33.0 pg 06/08/2025 10:22 AM EDT [facility] MCHC 31.0(L) 31.5 - 35.7 g/dL 06/08/2025 10:22 AM EDT [facility] RDW 15.5(H) 12.3 - 15.4 % 06/08/2025 10:22 AM EDT [facility] RDW-SD 55.7(H) 37.0 - 54.0 fl 06/08/2025 10:22 AM EDT [facility] MPV 10.6 6.0 - 12.0 fL 06/08/2025 10:22 AM EDT [facility] Platelets 195 140 - 450 10*3/mm3 06/08/2025 10:22 AM EDT [facility] Blood Venipuncture / Unknown 06/08/2025 8:48 AM EDT 06/08/2025 10:07 AM EDT Krystal Orozco MD LAB BLOOD ORDERABLES Final Re sult [facility]
[address] [place] [address], * (ABNORMAL) Comprehensive Metabolic Panel (06/08/2025 8:48 AM EDT) Glucose 66 65 - 99 mg/dL 06/08/2025 11:42 AM EDT [facility] BUN 80.3(H) 8.0 - 23.0 mg/dL 06/08/2025 11:42 AM EDT [facility] Creatinine 8.13(H) 0.76 - 1.27 mg/dL 06/08/2025 11:42 AM EDT [facility] Sodium 137 136 - 145 mmol/L 06/08/2025 11:42 AM EDT [facility] Potassium 5.1 3.5 - 5.2 mmol/L 06/08/2025 11:42 AM EDT [facility] Chloride 93(L) 98 - 107 mmol/L 06/08/2025 11:42 AM EDT [facility] CO2 24.1 22.0 - 29.0 mmol/L 06/08/2025 11:42 AM EDT [facility] Calcium 8.8 8.6 - 10.5 mg/dL 06/08/2025 11:42 AM EDT [facility] Total Protein 5.9(L) 6.0 - 8.5 g/dL 06/08/2025 11:42 AM EDT [facility] Albumin 2.8(L) 3.5 - 5.2 g/dL 06/08/2025 11:42 AM EDT [facility] ALT (SGPT) 982(H) 1 - 41 U/L 06/08/2025 11:42 AM EDT [facility] AST (SGOT) 730(H) 1 - 40 U/L 06/08/2025 11:42 AM EDT [facility] Alkaline Phosphatase 111 39 - 117 U/L 06/08/2025 11:42 AM EDT [facility] Total Bilirubin 0.6 0.0 - 1.2 mg/dL 06/08/2025 11:42 AM EDT [facility] Globulin 3.1 gm/dL 06/08/2025 11:42 AM EDT [facility] Comment:Calculated Result A/G Ratio 0.9 g/dL 06/08/2025 11:42 AM EDT [facility] BUN/Creatinine Ratio 9.9 7.0 - 25.0 06/08/2025 11:42 AM EDT [facility] Anion Gap 19.9(H) 5.0 - 15.0 mmol/L 06/08/2025 11:42 AM EDT [facility] eGFR 6.3(L) >60.0 mL/min/1.7 3 06/08/2025 11:42 AM EDT [facility] Blood Venipuncture / Unknown 06/08/2025 8:48 AM EDT 06/08/2025 9:42 AM EDT [facility] - 06/08/2025 11:42 AM EDT GFR Categories in Chronic Kidney Disease (CKD) GFR Category GFR (mL/min/1.73) Interpretation G1 90 or greater Normal or high (1) G2 60-89 Mild decrease (1) G3a 45-59 Mild to moderate decrease G3b 30-44 Moderate to severe decrease G4 15-29 Severe decrease G5 14 or less Kidney failure (1)In the absence of evidence of kidney disease, neither GFR category G1 or G2 fulfill the criteria for CKD. eGFR calculation 2020 CKD-EPI creatinine equation, which does not include race as a factor us Krystal Orozco MD LAB BLOOD ORDERABLES Final Re sult [facility]
[address] [place] [address], * 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 FEES - Fiberoptic Endo Eval Swallow (06/07/2025 4:59 PM EDT) Narrative SYSTEMGENERATED, DOCUMENTATION - 06/07/2025 4:59 PM EDT This procedure was auto-finalized with no dictation required. Krystal Orozco MD 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 ORDERABLES Final Result * DUPLEX CAROTID BILATERAL CAR - PERFORMED PROCEDURE (06/07/2025 3:55 PM EDT) Prox CCA PSV 63.9 cm/sec Prox CCA EDV 10.2 cm/sec Right Mid CCA PSV 67.3 cm/sec right Mid CCA EDV 12.2 cm/sec Dist CCA PSV 46.6 cm/sec Dist CCA EDV 10.5 cm/sec Prox ICA PSV 99.7 cm/sec Prox ICA EDV 23.9 cm/sec Mid ICA PSV 87.5 cm/sec Mid ICA EDV 20.1 cm/sec Dist ICA PSV 111.7 cm/sec Dist ICA EDV 23.1 cm/sec Prox ECA PSV 63.3 cm/sec Prox ECA EDV 8.8 cm/sec Prox CCA PSV 66.2 cm/sec Prox CCA EDV 8.4 cm/sec left Mid CCA PSV 88.6 cm/sec left Mid CCA EDV 11.6 cm/sec Dist CCA PSV 82.4 cm/sec Dist CCA EDV 13.5 cm/sec Prox ICA PSV 61.1 cm/sec Prox ICA EDV 11.2 cm/sec Mid ICA PSV 41.4 cm/sec Mid ICA EDV 12.0 cm/sec Dist ICA PSV 91.6 cm/sec Dist ICA EDV 25.5 cm/sec Prox ECA PSV 57.3 cm/sec Prox ECA EDV 5.8 cm/sec Vertebral A PSV 44.9 cm/sec Vertebral A EDV 8.5 cm/sec Prox SCLA PSV 127.4 cm/sec ICA/CCA ratio 1.48 Prox SCLA PSV 117.3 cm/sec ICA/CCA ratio 0.69 Anatomical Region Laterality Modality Ultrasound Narrative 06/07/2025 5:15 PM EDT Right internal carotid artery demonstrates a less than 50% stenosis. Right vertebral artery was not visualized. Left internal carotid artery demonstrates a less than 50% stenosis. Antegrade left vertebral flow. Study Impression Right ICA: Imaging indicates <50% stenosis. Left ICA: Imaging indicates <50% stenosis. Study Findings Right CCA Prox: Irregular heterogeneous plaque present. Right CCA Mid: Irregular heterogeneous plaque present. Right CCA Dist: Irregular heterogeneous plaque present. Right Carotid Bulb: Irregular heterogeneous plaque present. Right ICA Prox: Irregular heterogeneous plaque present. Right ICA Mid: Irregular heterogeneous plaque present. Tortuous vessel. Right ICA Dist: No plaque visualized. Right ECA: Irregular heterogeneous plaque present. Left CCA Prox: Irregular heterogeneous plaque present. Left CCA Mid: Irregular heterogeneous plaque present. Left CCA Dist: Irregular heterogeneous plaque present. Left Carotid Bulb: Irregular calcified heterogeneous plaque present. Left ICA Prox: Irregular calcified heterogeneous plaque present. Left ICA Mid: Irregular heterogeneous plaque present. Left ICA Dist: Tortuous vessel. Left ECA: Irregular heterogeneous plaque present. Left Vertebral: Antegrade flow noted. Right vertebral artery not visualized. Possibly due to positioning/depth. No elevated velocities detected bilateral ICA. Antegrade flow detected in left vertebral artery. No prior exam for comparison. Additional Study Details Study performed at bedside. The study is technically difficult for diagnosis. The quality of the study is limited due to patient body habitus, patient positioning and patient respirations/coughing. Hanna Rangel APRN CV VASCULAR ORDERABLES Fi nal Result * ECHO COMPLETE W/ DOPPLER AND COLOR FLOW (06/07/2025 3:44 PM EDT) [facility] EF(MOD-bp) 53.5 % LVIDd 5.7 cm LVIDs 3.5 cm IVSd 1.30 cm LVPWd 1.30 cm FS 38.6 % IVS/LVPW 1.00 cm ESV(cubed) 42.9 ml LV Sys Vol (BSA corrected) 37.2 cm2 EDV(cubed) 185.2 ml LV Ellis Vol (BSA corrected) 80.0 cm2 LV mass(C)d 322.2 grams LVOT area 3.8 cm2 LVOT diam 2.20 cm EDV(MOD-sp2) 183.0 ml EDV(MOD-sp4) 209.0 ml ESV(MOD-sp2) 85.1 ml ESV(MOD-sp4) 97.2 ml SV(MOD-sp2) 97.9 ml SV(MOD-sp4) 111.8 ml SVi(MOD-SP2) 37.5 ml/m2 SVi(MOD-SP4) 42.8 ml/m2 SVi (LVOT) 41.9 ml/m2 EF(MOD-sp2) 53.5 % EF(MOD-sp4) 53.5 % MV E max brianna 133.0 cm/sec MV A max brianna 105.0 cm/sec MV dec time 0.17 sec MV E/A 1.27 IVRT 113.0 ms LA ESV Index (BP) 41.8 ml/m2 Med Peak E' Brianna 6.5 cm/sec Lat Peak E' Brianna 8.6 cm/sec TR max brianna 254.0 cm/sec Avg E/e' ratio 17.62 SV(LVOT) 109.5 ml RV Base 3.5 cm RV Mid 2.5 cm RV Length 9.3 cm TAPSE (>1.6) 2.8 cm RV S' 12.1 cm/sec LA dimension (2D) 4.1 cm LV V1 max 113.0 cm/sec LV V1 max PG 5.1 mmHg LV V1 mean PG 3.0 mmHg LV V1 VTI 28.8 cm Ao pk brianna 308.8 cm/sec Ao max PG 38.2 mmHg Ao mean PG 21.0 mmHg Ao V2 VTI 78.8 cm KIERAN(I,D) 1.39 cm2 Dimensionless Index 0.37 (DI) MV max PG 7.5 mmHg MV mean PG 4.0 mmHg MV V2 VTI 50.4 cm MV P1/2t 92.6 msec MVA(P1/2t) 2.38 cm2 MVA(VTI) 2.17 cm2 MV dec slope 405.0 cm/sec2 MR max brianna 429.0 cm/sec MR max PG 73.6 mmHg TR max PG 25.8 mmHg PA acc time 0.09 sec Ao root diam 4.4 cm BH CV ECHO SHUNT ASSESSMENT PERFORMED (HIDDEN SCRIPTING) 1 RVSP(TR) 34 mmHg RAP systole 8 mmHg Ao root area (BSA corrected) 1.7 cm2 Ascending aorta 3.6 cm Anatomical Region Laterality Modality Ultrasound Narrative 06/07/2025 4:41 PM EDT Left ventricular systolic function is normal. Calculated left ventricular EF = 53.5% Left ventricular ejection fraction appears to be 51 - 55%. Normal left ventricular cavity size noted. Left ventricular wall thickness is consistent with mild concentric hypertrophy. Left ventricular diastolic function is consistent with (grade II w/high LAP) pseudonormalization. Left atrial volume is mildly increased. Saline test results are negative. There is mild calcification of the aortic valve. Mild aortic valve regurgitation is present. Moderate aortic valve stenosis is present. Aortic valve area is 1.39 cm2. Peak velocity of the flow distal to the aortic valve is 308.8 cm/s. Aortic valve mean pressure gradient is 21.0 mmHg. Mild mitral annular calcification is present. Mild mitral valve regurgitation is present. No significant mitral valve stenosis is present. The mitral valve mean gradient is 4.0 mmHg. . Trace tricuspid valve regurgitation is present. Estimated right ventricular systolic pressure from tricuspid regurgitation is normal (<35 mmHg). Aortic root = 4.4 cm which is within normal limits when indexed to body surface area. Left Ventricle Left ventricular systolic function is normal. Calculated left ventricular EF = 53.5% Left ventricular ejection fraction appears to be 51 - 55%. Normal left ventricular cavity size noted. Left ventricular wall thickness is consistent with mild concentric hypertrophy. Left ventricular diastolic function is consistent with (grade II w/high LAP) pseudonormalization. Right Ventricle Normal right ventricular cavity size and systolic function noted. Left Atrium The left atrial cavity is mildly dilated. Left atrial volume is mildly increased. Saline test results are negative. Right Atrium Normal right atrial cavity size noted. Inferior vena cava not well visualized. Mitral Valve Mild mitral annular calcification is present. Mild mitral valve regurgitation is present. No significant mitral valve stenosis is present. The mitral valve mean gradient is 4.0 mmHg. Tricuspid Valve The tricuspid valve is structurally normal with no significant stenosis present. Trace tricuspid valve regurgitation is present. Estimated right ventricular systolic pressure from tricuspid regurgitation is normal (<35 mmHg). Calculated right ventricular systolic pressure from tricuspid regurgitation is 34 mmHg. Aortic Valve The aortic valve is abnormal in structure. There is mild calcification of the aortic valve. Mild aortic valve regurgitation is present. Moderate aortic valve stenosis is present. Aortic valve area is 1.39 cm2. Peak velocity of the flow distal to the aortic valve is 308.8 cm/s. Aortic valve mean pressure gradient is 21.0 mmHg. Pulmonic Valve The pulmonic valve is structurally normal with no significant stenosis present. There is no significant pulmonic valve regurgitation present. Pericardium The pericardium is normal. There is no evidence of pericardial effusion. . Greater Vessels Aortic root = 4.4 cm No dilation of the ascending aorta is present. Study Quality The study is technically difficult for diagnosis. The quality of the study is limited due to patient body habitus . Shunt Assessment Verbal consent was obtained from the patient for use of agitated saline to assess for shunting. A total of 20 mL of agitated saline was administered. Edita Guzman HOSIERY BAGGER CV ECHO ORDERABLES Final Result * MRI abdomen wo contrast mrcp (06/07/2025 10:07 AM EDT) Anatomical Region Laterality Modality Body Magnetic Resonan ce 06/07/2025 10:0 8 AM EDT Impressions 06/07/2025 10:26 AM EDT Impression: Choledocholithiasis with a 7 mm stone in the lower common bile duct. Intra and extrahepatic biliary ductal dilatation with common bile duct measuring 15 mm. Correlate with serum bilirubin and consider ERCP. Cholelithiasis without evidence of acute cholecystitis. Left lower lobe consolidation with trace left pleural effusion, suggestive of pneumonia. Chronic/ancillary findings as above. Electronically Signed: Preet Crowley MD 06/07/2025 10:26 AM EDT Workstation ID: [id number] Narrative 06/07/2025 10:26 AM EDT MRI ABDOMEN WO CONTRAST MRCP Date of Exam: 06/07/2025 9:28 AM EDT Indication: CBD dilation with choledocholithiasis. Comparison: CT abdomen pelvis 06/06/2025. Technique: Routine multiplanar/multisequence images of the abdomen were obtained with MRCP sequences without contrast administration. Findings: Motion-degraded exam. Left lower lobe consolidation with trace left pleural effusion. Heart appears enlarged. No morphologic changes of chronic liver disease. No evidence of hepatic steatosis. No evidence of focal liver lesion on this noncontrast exam. Cholelithiasis. Mild gallbladder distention without wall thickening or pericholecystic fluid. Intra and extrahepatic biliary ductal dilatation to the level of the ampulla with common bile duct measuring 15 mm. 7 mm ovoid filling defect within the lower common bile duct consistent with choledocholithiasis. No pancreatic ductal dilatation. No findings of acute pancreatitis. Spleen is normal in size. Bilateral renal atrophy. Subcentimeter hemorrhagic/proteinaceous foci along the left kidney may represent a hemorrhagic/proteinaceous cyst, though incompletely characterized on this noncontrast exam. Otherwise there are multiple bilateral renal cysts are overall simple-appearing. No hydronephrosis. No dilated bowel loops within the [id number]. No free fluid in the abdomen. No pathologically enlarged lymph nodes. No abdominal aortic aneurysm. Atherosclerosis. No body wall abnormality. Multilevel spondylosis. No acute or suspicious osseous abnormalities evident on this noncontrast exam. Procedure Note Keo, Preet Garnett MD - 06/07/2025 MRI ABDOMEN WO CONTRAST MRCP Date of Exam: 06/07/2025 9:28 AM EDT Indication: CBD dilation with choledocholithiasis. Comparison: CT abdomen pelvis 06/06/2025. Technique: Routine multiplanar/multisequence images of the abdomen wereobtained with MRCP sequences without contrast administration. Findings: Motion-degraded exam. Left lower lobe consolidation with trace left pleural effusion. Heartappears enlarged. No morphologic changes of chronic liver disease. No evidence of hepaticsteatosis. No evidence of focal liver lesion on this noncontrast exam.Cholelithiasis. Mild gallbladder distention without wall thickening orpericholecystic fluid. Intra and extrahepatic biliary ductal dilatation to the level of the ampulla withcommon bile duct measuring 15 mm. 7 mm ovoid filling defect within thelower common bile duct consistent with choledocholithiasis. No pancreaticductal dilatation. No findings of acute pancreatitis. Spleen is normal in size. Bilateral renal atrophy. Subcentimeter hemorrhagic/proteinaceous focialong the left kidney may represent a hemorrhagic/proteinaceous cyst,though incompletely characterized on this noncontrast exam. Otherwisethere are multiple bilateral renal cysts are overall simple-appearing. No hydronephrosis. No dilated bowel loopswithin the [id number]. No free fluid in the abdomen. No pathologicallyenlarged lymph nodes. No abdominal aortic aneurysm. Atherosclerosis. Nobody wall abnormality. Multilevel spondylosis. No acute or suspicious osseous abnormalities evident on thisnoncontrast exam. IMPRESSION: Impression: Choledocholithiasis with a 7 mm stone in the lower common bile duct. Intraand extrahepatic biliary ductal dilatation with common bile duct qodkbrauo84 mm. Correlate with serum bilirubin and consider ERCP. Cholelithiasis without evidence of acute cholecystitis. Left lower lobe consolidation with trace left pleural effusion, suggestiveof pneumonia. Chronic/ancillary findings as above. Electronically Signed: Preet Crowley MD 06/07/2025 10:26 AM EDT Workstation ID: [id number] Rolan Muro MD IM MRI ORDERABLES Final Res ult * MRI Brain Without Contrast (06/07/2025 10:05 AM EDT) Anatomical Region Laterality Modality Head, Neck N/A Magnetic Resonan ce 06/07/2025 10:1 3 AM EDT Impressions 06/07/2025 10:22 AM EDT 1.Findings concerning for tiny acute infarct within the left occipital lobe (series 5, image 86). Questionable additional punctate cortical acute/subacute infarct within the left centrum semiovale (series 5, image 96). 2.Additional findings compatible with chronic microvascular ischemic change and diffuse cortical atrophy. 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 3.Pansinus mucosal thickening and bilateral mastoid effusions. Electronically Signed: Vimal Lares MD 06/07/2025 10:22 AM EDT Workstation ID: [id number] Narrative 06/07/2025 10:22 AM EDT MRI BRAIN WO CONTRAST Date of Exam: 06/07/2025 9:17 AM EDT Indication: Stroke, follow up Left occipital stroke seen on CT scan. Comparison: Head CT dated 06/06/2025 Technique: Routine multiplanar/multisequence sequence images of the brain were obtained without contrast administration. FINDINGS: There is a tiny focus of DWI hyperintense signal within the left occipital lobe (series 5, image 86), concerning for tiny acute infarct. Questionable additional punctate cortical infarct within the left centrum semiovale (series 5, image 96). Foci of T2/FLAIR signal hyperintensity are seen within the bilateral hemispheric white matter. There is cortical atrophy with prominent sulcation and ventriculomegaly. There is encephalomalacia involving the bilateral cerebellum and left occipital lobe, likely related to remote infarcts. Midline structures appear unremarkable. No significant mass effect, intracranial hemorrhage, or hydrocephalus is identified. The visualized intracranial flow- voids appear unremarkable. There is pansinus mucosal thickening with complete opacification of the left maxillary sinus. Bilateral mastoid effusions are also seen. Bilateral lens prostheses noted. The visualized superficial soft tissues and cervical spine demonstrate no significant abnormality. Procedure Note Vimal Lares MD - 06/07/2025 MRI BRAIN WO CONTRAST Date of Exam: 06/07/2025 9:17 AM EDT Indication: Stroke, follow up Left occipital stroke seen on CT scan. Comparison: Head CT dated 06/06/2025 Technique: Routine multiplanar/multisequence sequence images of the brainwere obtained without contrast administration. FINDINGS: There is a tiny focus of DWI hyperintense signal within the left occipitallobe (series 5, image 86), concerning for tiny acute infarct. Questionableadditional punctate cortical infarct within the left centrum semiovale(series 5, image 96). Foci of T2/FLAIR signal hyperintensity are seen within the bilateralhemispheric white matter. There is cortical atrophy with prominentsulcation and ventriculomegaly. There is encephalomalacia involving thebilateral cerebellum and left occipital lobe, likely related to remote infarcts. Midline structures appear unremarkable. No significant mass effect,intracranial hemorrhage, or hydrocephalus is identified. The visualizedintracranial flow- voids appear unremarkable. There is pansinus mucosalthickening with complete opacification of the left maxillary sinus. Bilateral mastoid effusions are also seen.Bilateral lens prostheses noted. The visualized superficial soft tissuesand cervical spine demonstrate no significant abnormality. IMPRESSION: 1.Findings concerning for tiny acute infarct within the left occipitallobe (series 5, image 86). Questionable additional punctate corticalacute/subacute infarct within the left centrum semiovale (series 5, image96). 2.Additional findings compatible with chronic microvascular ischemicchange and diffuse cortical atrophy. Chronic infarcts involving thebilateral cerebellum and left occipital lobe. 3.Pansinus mucosal thickening and bilateral mastoid effusions. Electronically Signed: Vimal Lares MD 06/07/2025 10:22 AM EDT Workstation ID: [id number] Edita Guzman HOSIERY BAGGER IMG MRI ORDERABLES Final Result * KIMANI AURIS PCR - Swab, Axilla Right, Axilla Left and Groin (06/07/2025 8:45 AM EDT) Pathologist [facility] KIMANI AURIS PCR ([facility]) Not Detected 06/08/2025 5:14 PM EDT [facility] Swab Entire skin of axilla / Unknown Collection / Unknown 06/07/2025 8:45 AM EDT 06/07/2025 8:52 AM EDT Krystal Orozco MD MICROBIOLOGY - GENERAL ORDERA BLES Final Result [facility] [address] [place] [address], [place] [phone] * Lactic Acid, Plasma (06/07/2025 6:03 AM EDT) [facility] Lactate 0.9 0.5 - 2.0 mmol/L 06/07/2025 6:43 AM EDT [facility] Comment:Falsely depressed re sults may occur on samples drawn from patients receiving N-Acetylcysteine (NAC) or Metamizole. Blood Venipuncture / Unknown 06/07/2025 6:03 AM EDT 06/07/2025 6:07 AM EDT Rolan Muro MD LAB BLOOD ORDERABLES Final R esult [facility]
[address] [place] [address], [place] [phone] * Blood Culture - Blood, Wrist, Left (06/07/2025 6:03 AM EDT) [facility] Blood Culture No growth at 5 days 06/12/2025 7:30 AM EDT [facility] Blood Structure of left wrist region / Unknown Venipuncture / Unknown 06/07/2025 6:03 AM EDT 06/07/2025 7:28 AM EDT Narrative [facility] - 06/12/2025 7:30 AM EDT Aerobic Bottle Only Less than seven (7) mL's of blood was collected. Insufficient quantity may yield false negative results. Rolan Muro MD MICROBIOLOGY - GENERAL ORDER NOEL Final Result Performing Organization Address [facility] de Phone Number [facility]
[address] [place] [address], * Blood Culture - Blood, Wrist, Left (06/07/2025 6:01 AM EDT) Blood Culture No growth at 5 days 06/12/2025 7:30 AM EDT [facility] Blood Structure of left wrist region / Unknown Venipuncture / Unknown 06/07/2025 6:01 AM EDT 06/07/2025 7:26 AM EDT Narrative [facility] - 06/12/2025 7:30 AM EDT Aerobic Bottle Only Less than seven (7) mL's of blood was collected. Insufficient quantity may yield false negative results. Rolan Muro MD MICROBIOLOGY - GENERAL ORDER NOEL Final Result Performing Organization Address [facility] de Phone Number [facility]
[address] [place] [address], * POC Glucose Once (06/07/2025 5:29 AM EDT) Glucose 76 70 - 130 mg/dL 06/07/2025 5:31 AM EDT [facility] Comment:Serial Number: [id number]: [id number] Blood 06/07/2025 5:29 AM EDT 06/07/2025 5:31 AM EDT Rolan Muro MD POINT OF CARE TEST ORDERABLE S Final Result Performing Organization Address [facility]/ZIP Co de Phone Number [facility]
[address] [place] [address], [place] [phone] * Hemoglobin A1C With EMG (06/07/2025 1:05 AM EDT) Hemoglobin A1C 4.9 4.8 - 5.6 % 06/09/2025 12:08 AM EDT [facility] Comment: Prediabetes: 5.7 - 6.4 Diabetes: >6.4 Glycemic control for adults with diabetes: <7.0 Mean Bld Glu Estim. 94 mg/dL 06/09/2025 12:08 AM EDT [facility] Blood Line / Unknown 06/07/2025 1: 05 AM EDT 06/07/2025 6:05 AM EDT Narrative [facility] - 06/09/2025 12:08 AM EDT Performed at: [facility] [id number] Rn Psychiatric: Franklyn Rodriguez PhD, Phone: [phone] Edita Guzman APRN LAB BLOOD ORDERABLE S Final Result Performing Organization Address [facility] de Phone Number [facility] [address] [place] [address], [place] [phone] * TSH Rfx On Abnormal To Free T4 (06/07/2025 12:57 AM EDT) Pathologist [facility] TSH 0.534 0.270 - 4.200 uIU/mL 06/07/2025 1:35 AM EDT [facility] Blood Venipuncture / Unknown 06/07/2025 12:57 AM EDT 06/07/2025 1:01 AM EDT Rolan Muro MD LAB BLOOD ORDERABLES Final R esult Performing Organization Address City/[facility]/ZIP Co de Phone Number [facility]
[address] [place] [address], * Magnesium (06/07/2025 12:57 AM EDT) Pathologist [facility] Magnesium 1.8 1.6 - 2.4 mg/dL 06/07/2025 1:35 AM EDT [facility] Blood Venipuncture / Unknown 06/07/2025 12:57 AM EDT 06/07/2025 1:01 AM EDT Rolan Muro MD LAB BLOOD ORDERABLES Final R esult [facility]
[address] [place] [address], * (ABNORMAL) CBC Auto Differential (06/07/2025 12:57 AM EDT) Pathologist [facility] WBC 18.26(H) 3.40 - 10.80 10*3/mm3 06/07/2025 1:04 AM EDT [facility] RBC 2.88(L) 4.14 - 5.80 10*6/mm3 06/07/2025 1:04 AM EDT [facility] Hemoglobin 9.0(L) 13.0 - 17.7 g/dL 06/07/2025 1:04 AM EDT [facility] Hematocrit 28.1(L) 37.5 - 51.0 % 06/07/2025 1:04 AM EDT [facility] MCV 97.6(H) 79.0 - 97.0 fL 06/07/2025 1:04 AM EDT [facility] MCH 31.3 26.6 - 33.0 pg 06/07/2025 1:04 AM EDT [facility] MCHC 32.0 31.5 - 35.7 g/dL 06/07/2025 1:04 AM EDT [facility] RDW 15.7(H) 12.3 - 15.4 % 06/07/2025 1:04 AM EDT [facility] RDW-SD 56.1(H) 37.0 - 54.0 fl 06/07/2025 1:04 AM [facility] MPV 12.4(H) 6.0 - 12.0 fL 06/07/2025 1:04 AM [facility] Platelets 120(L) 140 - 450 10*3/mm3 06/07/2025 1:04 AM [facility] Neutrophil % 84.7(H) 42.7 - 76.0 % 06/07/2025 1:04 AM [facility] Lymphocyte % 2.8(L) 19.6 - 45.3 % 06/07/2025 1:04 AM [facility] Monocyte % 7.5 5.0 - 12.0 % 06/07/2025 1:04 AM [facility] Eosinophil % 0.0(L) 0.3 - 6.2 % 06/07/2025 1:04 AM [facility] Basophil % 0.1 0.0 - 1.5 % 06/07/2025 1:04 AM [facility] Immature Grans % 4.9(H) 0.0 - 0.5 % 06/07/2025 1:04 AM [facility] Neutrophils, Absolute 15.45(H) 1.70 - 7.00 10*3/mm3 06/07/2025 1:04 AM [facility] Lymphocytes, Absolute 0.52(L) 0.70 - 3.10 10*3/mm3 06/07/2025 1:04 AM [facility] Monocytes, Absolute 1.37(H) 0.10 - 0.90 10*3/mm3 06/07/2025 1:04 AM [facility] Eosinophils, Absolute 0.00 0.00 - 0.40 10*3/mm3 06/07/2025 1:04 AM [facility] Basophils, Absolute 0.02 0.00 - 0.20 10*3/mm3 06/07/2025 1:04 AM [facility] Immature Grans, Absolute 0.90(H) 0.00 - 0.05 10*3/mm3 06/07/2025 1:04 AM EDT [facility] nRBC 0.0 0.0 - 0.2 /100 WBC 06/07/2025 1:04 AM EDT [facility] Blood Venipuncture / Unknown 06/07/2025 12:57 AM EDT 06/07/2025 1:00 AM EDT Rolan Muro MD LAB BLOOD ORDERABLES Final R esult [facility]
[address] [place] [address], * (ABNORMAL) Comprehensive Metabolic Panel (06/07/2025 12:57 AM EDT) Glucose 77 65 - 99 mg/dL 06/07/2025 1:35 AM EDT [facility] BUN 52.4(H) 8.0 - 23.0 mg/dL 06/07/2025 1:35 AM EDT [facility] Creatinine 6.07(H) 0.76 - 1.27 mg/dL 06/07/2025 1:35 AM EDT [facility] Sodium 136 136 - 145 mmol/L 06/07/2025 1:35 AM EDT [facility] Potassium 5.0 3.5 - 5.2 mmol/L 06/07/2025 1:35 AM EDT [facility] Chloride 93(L) 98 - 107 mmol/L 06/07/2025 1:35 AM EDT [facility] CO2 27.9 22.0 - 29.0 mmol/L 06/07/2025 1:35 AM EDT [facility] Calcium 9.0 8.6 - 10.5 mg/dL 06/07/2025 1:35 AM EDT [facility] Total Protein 6.1 6.0 - 8.5 g/dL 06/07/2025 1:35 AM EDT [facility] Albumin 3.0(L) 3.5 - 5.2 g/dL 06/07/2025 1:35 AM T [facility] ALT (SGPT) 652(H) 1 - 41 U/L 06/07/2025 1:35 AM [facility] AST (SGOT) 558(H) 1 - 40 U/L 06/07/2025 1:35 AM T [facility] Alkaline Phosphatase 102 39 - 117 U/L 06/07/2025 1:35 AM T [facility] Total Bilirubin 0.9 0.0 - 1.2 mg/dL 06/07/2025 1:35 AM [facility] Globulin 3.1 gm/dL 06/07/2025 1:35 AM [facility] Comment:Calculated Result A/G Ratio 1.0 g/dL 06/07/2025 1:35 AM [facility] BUN/Creatinine Ratio 8.6 7.0 - 25.0 06/07/2025 1:35 AM [facility] Anion Gap 15.1(H) 5.0 - 15.0 mmol/L 06/07/2025 1:35 AM [facility] eGFR 9.0(L) >60.0 mL/min/1.7 3 06/07/2025 1:35 AM [facility] Blood Venipuncture / Unknown 06/07/2025 12:57 AM EDT 06/07/2025 1:01 AM T [facility] - 06/07/2025 1:35 AM EDT GFR Categories in Chronic Kidney Disease (CKD) GFR Category GFR (mL/min/1.73) Interpretation G1 90 or greater Normal or high (1) G2 60-89 Mild decrease (1) G3a 45-59 Mild to moderate decrease G3b 30-44 Moderate to severe decrease G4 15-29 Severe decrease G5 14 or less Kidney failure (1)In the absence of evidence of kidney disease, neither GFR category G1 or G2 fulfill the criteria for CKD. eGFR calculation 2020 CKD-EPI creatinine equation, which does not include race as a factor us Rolan Muro MD LAB BLOOD ORDERABLES Final R esult [facility]
[address] [place] [address], * (ABNORMAL) Lipid Panel (06/07/2025 12:57 AM EDT) Total Cholesterol 62 0 - 200 mg/dL 06/07/2025 1:35 AM EDT [facility] Triglycerides 58 0 - 150 mg/dL 06/07/2025 1:35 AM EDT [facility] HDL Cholesterol 33(L) 40 - 60 mg/dL 06/07/2025 1:35 AM EDT [facility] LDL Cholesterol 15 0 - 100 mg/dL 06/07/2025 1:35 AM EDT [facility] VLDL Cholesterol 14 5 - 40 mg/dL 06/07/2025 1:35 AM EDT [facility] LDL/HDL Ratio 0.53 06/07/2025 1:35 AM EDT [facility] Blood Venipuncture / Unknown 06/07/2025 12:57 AM EDT 06/07/2025 1:01 AM EDT Narrative [facility] - 06/07/2025 1:35 AM EDT Cholesterol Reference Ranges (U.S. Department of Health and Human Services ATP III Classifications) Desirable <200 mg/dL Borderline High 200-239 mg/dL High Risk >240 mg/dL Triglyceride Reference Ranges (U.S. Department of Health and Human Services ATP III Classifications) Normal <150 mg/dL Borderline High 150-199 mg/dL High 200-499 mg/dL Very High >500 mg/dL HDL Reference Ranges (U.S. Department of Health and Human Services ATP III Classifications) Low <40 mg/dl (major risk factor for CHD) High >60 mg/dl ('negative' risk factor for CHD) LDL Reference Ranges (U.S. Department of Health and Human Services ATP III Classifications) Optimal <100 mg/dL Near Optimal 100-129 mg/dL Borderline High 130-159 mg/dL High 160-189 mg/dL Very High >189 mg/dL LDL is calculated using the NIH LDL-C calculation. Edita Moctezuma Thomas HOSIERY BAGGER LAB BLOOD ORDERABLE S Final Result Performing Organization Address City/[facility]/ZIP Co de Phone Number [facility]
[address] [place] [address], * POC Glucose Once (06/06/2025 10:47 PM EDT) Glucose 80 70 - 130 mg/dL 06/06/2025 10:49 PM EDT [facility] Comment:Serial Number: [id number]: [id number] Blood 06/06/2025 10:4 7 PM EDT 06/06/2025 10:49 PM EDT Rolan Muro MD POINT OF CARE TEST ORDERABLE S Final Result Performing Organization Address [facility] Co de Phone Number [facility]
[address] [place] [address], * CT Outside Abd/Pelvis (06/06/2025 8:47 PM EDT) Narrative SYSTEMGENERATED, DOCUMENTATION - 06/06/2025 8:47 PM EDT This procedure was auto-finalized with no dictation required. us [facility] Outside Films IMG CT ORDERABLES Final Re sult * CT Outside Films (06/06/2025 8:47 PM EDT) Narrative SYSTEMGENERATED, DOCUMENTATION - 06/06/2025 8:47 PM EDT This procedure was auto-finalized with no dictation required. us [employer] Outside Films IMG CT ORDERABLES Final Re sult * CT Outside Neck (06/06/2025 8:47 PM EDT) Narrative SYSTEMGENERATED, DOCUMENTATION - 06/06/2025 8:47 PM EDT This procedure was auto-finalized with no dictation required. us [employer] Outside Films IMG CT ORDERABLES Final Re sult * CT Outside Films (06/06/2025 8:47 PM EDT) Narrative SYSTEMGENERATED, DOCUMENTATION - 06/06/2025 8:47 PM EDT This procedure was auto-finalized with no dictation required. us [employer] Outside Films IMG CT ORDERABLES Final Re sult * CT Outside Head (06/06/2025 8:47 PM EDT) Narrative SYSTEMGENERATED, DOCUMENTATION - 06/06/2025 8:47 PM EDT This procedure was auto-finalized with no dictation required. us [employer] Outside Films IMG CT ORDERABLES Final Re sult documented in this encounter Visit Diagnoses Diagnosis Occipital stroke- Primary Unspecified cerebral artery occlusion with cerebral infarction Occipital stroke Unspecified cerebral artery occlusion with cerebral infarction Choledocholithiasis Calculus of bile duct without mention of cholecystitis or obstruction Cholecystitis Cholecystitis, unspecified Choledocholithiasis Calculus of bile duct without mention of cholecystitis or obstruction Acute respiratory failure with hypoxia CAP (community acquired pneumonia) Pneumonia, organism unspecified ESRD (end stage renal disease) End stage renal disease Atrial fibrillation Aortic stenosis Aortic valve disorders Encounter for removal of biliary stent documented in this encounter Admitting Diagnoses Diagnosis Occipital stroke Unspecified cerebral artery occlusion with cerebral infarction documented in this encounter Administered Medications Inactive Administered Medications - up to 3 most recent administrations Medication Order MAR Action Action Date Dose Rate Site acetaminophen (TYLENOL) 160 MG/5ML oral solution 650 mg 650 mg, Oral, Every 4 Hours PRN, Mild Pain, Starting on Wed06/06/25 at 2346, If given for fever, use fever parameter: fever greater than 100.4 F Based on patient request - if ordered for moderate or severe pain, provider allows for administration of a medication prescribed for a lower pain scale. Do not exceed 4 grams of acetaminophen in a 24 hr period. Max dose of 2gm for AST/ALT greater than 120 units/L. If given for pain, use the following pain scale: Mild Pain = Pain Score of 1-3, CPOT 1-2 Moderate Pain = Pain Score of 4-6, CPOT 3-4 Severe Pain = Pain Score of 7-10, CPOT 5-8 acetaminophen (TYLENOL) suppository 650 mg 650 mg, Rectal, Every 4 Hours PRN, Mild Pain, Starting on Wed06/06/25 at 2346, If given for fever, use fever parameter: fever greater than 100.4 F Based on patient request - if ordered for moderate or severe pain, provider allows for administration of a medication prescribed for a lower pain scale. Do not exceed 4 grams of acetaminophen in a 24 hr period. Max dose of 2gm for AST/ALT greater than 120 units/L. If given for pain, use the following pain scale: Mild Pain = Pain Score of 1-3, CPOT 1-2 Moderate Pain = Pain Score of 4-6, CPOT 3-4 Severe Pain = Pain Score of 7-10, CPOT 5-8 acetaminophen (TYLENOL) tablet 650 mg 650 mg, Oral, Every 4 Hours PRN, Mild Pain, Starting on Wed06/06/25 at 2346, If given for fever, use fever parameter: fever greater than 100.4 F Based on patient request - if ordered for moderate or severe pain, provider allows for administration of a medication prescribed for a lower pain scale. Do not exceed 4 grams of acetaminophen in a 24 hr period. Max dose of 2gm for AST/ALT greater than 120 units/L. If given for pain, use the following pain scale: Mild Pain = Pain Score of 1-3, CPOT 1-2 Moderate Pain = Pain Score of 4-6, CPOT 3-4 Severe Pain = Pain Score of 7-10, CPOT 5-8 Given 06/08/2025 3:30 AM EDT 650 mg albumin human 25 % IV SOLN 12.5 g 12.5 g, Intravenous, Administer over 30 Minutes, As Needed, for hypotension during dialysis, Starting on Wed06/08/25 at 1500, Indications: Hemodialysis ProcedureIndications:Hemodia lysis Procedure New Bag 06/08/2025 3:07 PM EDT 12.5 g albumin human 25 % IV SOLN Starting on Wed06/08/25 at 1506, For 1 dose, Created by cabinet lindaide alteplase (CATHFLO/ACTIVASE) injection 2 mg 2 mg, Intracatheter, Once, On Wed06/08/25 at 1615, For 1 dose, Caution: High Risk/High Alert med. Refrigerate. Mix alteplase 2 mg vial with 2.2 mL of sterile water for a final concentration of 1 mg/mL. If alteplase induced angioedema is suspected, activate the TPA induced angioedema order set. These symptoms include orolingual, hemifacial swelling, often contralateral to ischemic cerebral hemisphere. Onset may range from 5 - 180 minutes following infusion initiation. New Syringe/Cartridge 06/08/2025 5:22 PM EDT alteplase (CATHFLO/ACTIVASE) injection 2 mg 2 mg, Intracatheter, Once, On Wed06/08/25 at 1615, For 1 dose, Caution: High Risk/High Alert med. Refrigerate. Mix alteplase 2 mg vial with 2.2 mL of sterile water for a final concentration of 1 mg/mL. If alteplase induced angioedema is suspected, activate the TPA induced angioedema order set. These symptoms include orolingual, hemifacial swelling, often contralateral to ischemic cerebral hemisphere. Onset may range from 5 - 180 minutes following infusion initiation. New Syringe/Cartridge 06/08/2025 5:23 PM EDT amiodarone (PACERONE) tablet 200 mg 200 mg, Oral, 2 Times Daily, First dose on Betty 06/07/25 at 1315, Avoid grapefruit juice while taking this medication. Given 06/14/2025 9:45 AM EDT 200 mg Given 06/13/2025 8:15 PM EDT 200 mg Given 06/12/2025 8:27 PM EDT 200 mg amLODIPine (NORVASC) tablet 10 mg 10 mg, Oral, Every 24 Hours Scheduled, First dose on Betty 06/14/25 at 0900, Hold for SBP less than 100, DBP less than 60. Caution: Look alike/sound alike drug alert. Avoid grapefruit juice. Given 06/14/2025 9:45 AM EDT 10 mg apixaban (ELIQUIS) tablet 5 mg 5 mg, Oral, Every 12 Hours Scheduled, First dose (after last modification) on 06/11/25 at 2100, Tablet may be crushed and suspended in 60 mL of water or D5W and immediately delivered via NG tube., Indications: Atrial Fibrillation - requiring full anticoagulationIndications:Atrial Fibrillation - requiring full anticoagulation Given 06/14/2025 9:45 AM EDT 5 mg Given 06/13/2025 8:15 PM EDT 5 mg Given 06/12/2025 8:27 PM EDT 5 mg aspirin chewable tablet 81 mg 81 mg, Oral, Daily, First dose on Betty 06/07/25 at 0900, If patient fails dysphagia, OR option MUST be given. Do not exceed 4 grams of aspirin in a 24 hr period. If given for pain, use the following pain scale: Mild Pain = Pain Score of 1-3, CPOT 1-2 Moderate Pain = Pain Score of 4-6, CPOT 3-4 Severe Pain = Pain Score of 7-10, CPOT 5-8 Given 06/14/2025 9:45 AM EDT 81 mg Given 06/12/2025 8:36 AM EDT 81 mg Given 06/10/2025 8:58 AM EDT 81 mg aspirin suppository 300 mg 300 mg, Rectal, Daily, First dose on Betty 06/07/25 at 0900, If patient fails dysphagia, OR option MUST be given. Do not exceed 4 grams of aspirin in a 24 hr period. If given for pain, use the following pain scale: Mild Pain = Pain Score of 1-3, CPOT 1-2 Moderate Pain = Pain Score of 4-6, CPOT 3-4 Severe Pain = Pain Score of 7-10, CPOT 5-8 atorvastatin (LIPITOR) tablet 80 mg 80 mg, Oral, Nightly, First dose on Betty 06/07/25 at 2100, Avoid grapefruit juice. Given 06/13/2025 8:15 PM EDT 80 mg Given 06/12/2025 8:27 PM EDT 80 mg Given 06/11/2025 10:43 PM EDT 80 mg bisacodyl (DULCOLAX) EC tablet 5 mg 5 mg, Oral, Daily PRN, Constipation, Use if polyethylene glycol is ineffective, Starting on Wed06/06/25 at 2346, Use if no bowel movement after 12 hours. Swallow whole. Do not crush, split, or chew tablet. bisacodyl (DULCOLAX) suppository 10 mg 10 mg, Rectal, Daily PRN, Constipation, Use if bisacodyl oral is ineffective, Starting on Wed06/06/25 at 2346, Use if no bowel movement after 12 hours. Hold for diarrhea Given 06/13/2025 1:28 PM EDT 10 mg Calcium Replacement - Follow Nurse / BPA Driven Protocol Open Order & Select [facility] Electrolyte Replacement Protocol Algorithm to View Details cefTRIAXone (ROCEPHIN) 2,000 mg in sodium chloride 0.9 % 100 mL MBP 2,000 mg, Intravenous, at 200 mL/hr, Administer over 30 Minutes, Every 24 Hours, First dose on Betty 06/07/25 at 0600, For 28 doses, LR should be paused and flushing of the line with NS is recommended prior to and after completion of ceftriaxone infusion due to incompatibility. Do not co-adminster with calcium-containing solutions. Caution: Look alike/sound alike drug alert, Indications: Intra-Abdominal Infection, PneumoniaIndications:Intra-Abdomi nal Infection,Pneumonia New Bag 06/12/2025 8:35 AM EDT 2,000 mg 200 mL/ hr New Bag 06/11/2025 6:13 AM EDT 2,000 mg 200 mL/hr New Bag 06/10/2025 5:17 AM EDT 2,000 mg 200 mL/hr DAPTOmycin (CUBICIN) 650 mg in sodium chloride 0.9 % 50 mL IVPB 650 mg (rounded from 636 mg = 6 mg/kg 106 kg Adjusted weight), Intravenous, at 100 mL/hr, Administer over 30 Minutes, 3 Times Weekly (Once per day on Wednesday), First dose (after last modification) on Wed06/11/25 at 2100, For 5 days, Caution: Look alike/sound alike drug alert. Refrigerate. Do not shake., Reason for Therapy: Other, Indication for Therapy: parotid gladn infection, HD pt, Indications: Skin and Soft Tissue InfectionIndications:Skin and Soft Tissue Infection New Bag 06/11/2025 10:43 PM EDT 650 mg 100 mL/hr famotidine (PEPCID) 10 MG/ML injection - ADS Override Pull Starting on 06/09/25 at 0807, For 1 dose, Created by reyes miller Give IV push over 2 minutes. famotidine (PEPCID) injection 20 mg 20 mg, Intravenous, Once, On 06/09/25 at 0845, For 1 dose, Give IV push over 2 minutes. Given 06/09/2025 8:08 AM EDT 20 mg fentaNYL citrate (PF) (SUBLIMAZE) injection Code / Trauma / Sedation Medication, Starting on 06/11/25 at 1305 Given 06/11/2025 1:21 PM EDT 50 mcg Given 06/11/2025 1:05 PM EDT 50 mcg guaiFENesin (MUCINEX) 12 hr tablet 600 mg 600 mg, Oral, Every 12 Hours Scheduled, First dose on Betty 06/07/25 at 1330, Do not crush or chew the capsules or tablets. The drug may not work as designed if the capsule or tablet is crushed or chewed. Swallow whole. Caution: Look alike/sound alike drug alert Do not crush, split, or chew. Given 06/14/2025 9:45 AM EDT 600 mg Given 06/13/2025 8:15 PM EDT 600 mg Given 06/12/2025 8:27 PM EDT 600 mg heparin (porcine) injection 2,000 Units 2,000 Units, Intracatheter, As Needed, Hd, Starting on 06/11/25 at 1041, For 10 days, Indications: for Hd cathIndications:for Hd cath Given 06/13/2025 11:46 AM EDT 2,000 Units Given 06/11/2025 12:09 PM EDT 2,000 Units HYDROmorphone (DILAUDID) 1 MG/ML injection - ADS Override Pull Starting on 06/09/25 at 1319, For 1 dose, Created by reyes mckeonide (MEENA) Caution: Look alike/sound alike drug alert If given for pain, use the following pain scale: Mild Pain = Pain Score of 1-3, CPOT 1-2 Moderate Pain = Pain Score of 4-6, CPOT 3-4 Severe Pain = Pain Score of 7-10, CPOT 5-8 HYDROmorphone (DILAUDID) injection 0.5 mg 0.5 mg, Intravenous, Every 15 Minutes PRN, Severe Pain, Starting on 06/09/25 at 1216, For 4 doses, Max of 2 mg (40 MME) PACU only. If given for pain, use the following pain scale: Mild Pain = Pain Score of 1-3, CPOT 1-2 Moderate Pain = Pain Score of 4-6, CPOT 3-4 Severe Pain = Pain Score of 7-10, CPOT 5-8 Given 06/09/2025 1:20 PM EDT 0.5 mg HYDROmorphone (DILAUDID) injection 0.5 mg 0.5 mg, Intravenous, Every 2 Hours PRN, Severe Pain, Starting on 06/09/25 at 1230, For 10 days, (MEENA) Caution: Look alike/sound alike drug alert If given for pain, use the following pain scale: Mild Pain = Pain Score of 1-3, CPOT 1-2 Moderate Pain = Pain Score of 4-6, CPOT 3-4 Severe Pain = Pain Score of 7-10, CPOT 5-8 ipratropium-albuterol (DUO-NEB) nebulizer solution 3 mL 3 mL, Nebulization, 4 Times Daily - RT, First dose on Betty 06/07/25 at 0830, Include Respiratory Treatment Education Given 06/12/2025 12:13 PM EDT 3 mL Given 06/12/2025 8:27 AM EDT 3 mL Given 06/10/2025 6:48 PM EDT 3 mL ipratropium-albuterol (DUO-NEB) nebulizer solution 3 mL 3 mL, Nebulization, Every 6 Hours PRN, Shortness of Air, Starting on 06/12/25 at 1815, Include Respiratory Treatment Education labetalol (NORMODYNE,TRANDATE) injection 10 mg 10 mg, Intravenous, Once, On Betty 06/14/25 at 0115, For 1 dose, As ordered Give IV Push over 2 minutes. Given 06/14/2025 12:27 AM EDT 10 mg lactated ringers infusion 9 mL/hr, Intravenous, Continuous, Starting on 06/09/25 at 1218, For 1 day New Bag 06/10/2025 10:52 AM EDT 9 mL/hr 9 mL/hr loperamide (IMODIUM) capsule 2 mg 2 mg, Oral, Once, On Wed06/08/25 at 0015, For 1 dose, Maximum recommended 16 mg / 24 hours. ([facility]) Given 06/07/2025 11:28 PM EDT 2 mg loperamide (IMODIUM) capsule 2 mg 2 mg, Oral, Once, On Wed06/08/25 at 2130, For 1 dose, Maximum recommended 16 mg / 24 hours. ([facility]) Given 06/08/2025 8:56 PM EDT 2 mg Magnesium Standard Dose Replacement - Follow Nurse / BPA Driven Protocol Open Order & Select S Electrolyte Replacement Protocol Algorithm to View Details Med rec consult Daily, First dose on Betty 06/07/25 at 0915, Until Discontinued, Contact Pharmacy prior to discharge. Given 06/07/2025 1:35 PM EDT metroNIDAZOLE (FLAGYL) IVPB 500 mg 500 mg, Intravenous, at 200 mL/hr, Administer over 30 Minutes, Every 8 Hours, First dose on Betty 06/07/25 at 0600, For 7 days, Caution: Look alike/sound alike drug alert. Do not refrigerate., Indications: Intra-Abdominal InfectionIndications:Intra-Abdomi nal Infection New Bag 06/07/2025 11:40 AM EDT 500 mg 200 mL/hr metroNIDAZOLE (FLAGYL) IVPB 500 mg 500 mg, Intravenous, at 200 mL/hr, Administer over 30 Minutes, Every 8 Hours, First dose (after last modification) on Betty 06/07/25 at 2000, For 20 doses, Caution: Look alike/sound alike drug alert. Do not refrigerate., Indications: Intra-Abdominal InfectionIndications:Intra-Abdomi nal Infection New Bag 06/10/2025 3:41 AM EDT 500 mg 200 mL/hr New Bag 06/09/2025 5:25 PM EDT 500 mg 200 mL/hr New Bag 06/09/2025 4:19 AM EDT 500 mg 200 mL/hr midazolam (VERSED) injection Code / Trauma / Sedation Medication, Starting on 06/11/25 at 1305 Given 06/11/2025 1:21 PM EDT 1 mg Given 06/11/2025 1:10 PM EDT 2 mg Given 06/11/2025 1:05 PM EDT 2 mg naloxone (NARCAN) injection 0.1 mg 0.1 mg, Intravenous, Every 5 Minutes PRN, Respiratory Depression, Starting on 06/09/25 at 1230, If respiratory rate is less than 8 breaths/minute or patient is difficult to arouse stop any narcotics and contact physician. Administer slow IV push. Repeat as ordered until patient's respiratory rate is greater than 12 breaths/minute. nitroglycerin (NITROSTAT) SL tablet 0.4 mg 0.4 mg, Sublingual, Every 5 Minutes PRN, Chest Pain, Starting on Wed06/06/25 at 2346, If Pain Unrelieved After 3 Doses Notify MD May administer up to 3 doses per episode. Hold if SBP less than 100. ondansetron (ZOFRAN) injection 4 mg 4 mg, Intravenous, Every 6 Hours PRN, Nausea, Vomiting, Starting on 06/06/25 at 2346, If BOTH ondansetron (ZOFRAN) and promethazine (PHENERGAN) are ordered use ondansetron first and THEN promethazine IF ondansetron is ineffective. Given 06/14/2025 1:33 PM EDT 4 mg Given 06/08/2025 1:51 PM EDT 4 mg oxyCODONE-acetaminophen (PERCOCET) 5-325 MG per tablet 1 tablet 1 tablet, Oral, Every 4 Hours PRN, Moderate Pain, Starting on 06/09/25 at 1230, For 10 days, [MEENA] Do not exceed 4 grams of acetaminophen in a 24 hr period. If given for pain, use the following pain scale: Mild Pain = Pain Score of 1-3, CPOT 1-2 Moderate Pain = Pain Score of 4-6, CPOT 3-4 Severe Pain = Pain Score of 7-10, CPOT 5-8 [MEENA] Do not exceed 4 grams of acetaminophen in a 24 hr period. Max dose of 2gm for AST/ALT greater than 120 units/L If given for pain, use the following pain scale: Mild Pain = Pain Score of 1-3, CPOT 1-2 Moderate Pain = Pain Score of 4-6, CPOT 3-4 Severe Pain = Pain Score of 7-10, CPOT 5-8 Given 06/09/2025 8:15 PM EDT 1 tablet Given 06/09/2025 2:42 PM EDT 1 tablet pantoprazole (PROTONIX) EC tablet 40 mg 40 mg, Oral, Daily, First dose on Betty 06/07/25 at 1315, Do not crush or chew the capsules or tablets. The drug may not work as designed if the capsule or tablet is crushed or chewed. Swallow whole. Swallow whole; do not crush, split, or chew. Given 06/14/2025 9:45 AM EDT 40 mg Given 06/12/2025 8:36 AM EDT 40 mg Given 06/10/2025 8:58 AM EDT 40 mg Pharmacy to dose vancomycin Continuous PRN, Starting on Wed06/12/25 at 0907, Until Betty 06/14/25 at 1733, Consult, Indications: BacteremiaIndications:Bacteremia Phosphorus Replacement - Follow Nurse / BPA Driven Protocol Open Order & Select [facility] Electrolyte Replacement Protocol Algorithm to View Details polyethylene glycol (MIRALAX) packet 17 g 17 g, Oral, Daily PRN, Constipation, Use if senna-docusate is ineffective, Starting on Wed06/06/25 at 2346, Use if no bowel movement after 12 hours. Mix in 6-8 ounces of water. Use 4-8 ounces of water, tea, or juice for each 17 gram dose. Given 06/13/2025 12:23 PM EDT 17 g Potassium Replacement - Follow Nurse / BPA Driven Protocol Open Order & Select [facility] Electrolyte Replacement Protocol Algorithm to View Details sennosides-docusate (PERICOLACE) 8.6-50 MG per tablet 2 tablet 2 tablet, Oral, 2 Times Daily PRN, Constipation, Starting on Wed06/06/25 at 2346, Start bowel management regimen if patient has not had a bowel movement after 12 hours. Given 06/13/2025 8:15 PM EDT 2 tablets Given 06/12/2025 8:36 AM EDT 2 tablets simethicone (MYLICON) chewable tablet 80 mg 80 mg, Oral, 4 Times Daily PRN, Flatulence, Starting on 06/09/25 at 1503 Given 06/10/2025 9:57 AM EDT 80 mg Given 06/09/2025 3:18 PM EDT 80 mg sodium chloride 0.9 % flush 10 mL 10 mL, Intravenous, Every 12 Hours Scheduled, First dose on Wed06/06/25 at 2130 Given 06/13/2025 1:28 PM EDT 10 mL Given 06/12/2025 8:37 AM EDT 10 mL Given 06/11/2025 10:45 PM EDT 10 mL sodium chloride 0.9 % flush 10 mL 10 mL, Intravenous, As Needed, Line Care, Starting on Wed06/06/25 at 2030 sodium chloride 0.9 % flush 10 mL 10 mL, Intravenous, Every 12 Hours Scheduled, First dose on Wed06/07/25 at 0045 Given 06/13/2025 1:28 PM EDT 10 mL Given 06/12/2025 8:35 AM EDT 10 mL Given 06/11/2025 10:45 PM EDT 10 mL sodium chloride 0.9 % flush 10 mL 10 mL, Intravenous, As Needed, Line Care, Starting on Wed06/06/25 at 2346 sodium chloride 0.9 % flush 3 mL 3 mL, Intravenous, Every 12 Hours Scheduled, First dose on Wed06/09/25 at 1218 Given 06/09/2025 8:16 PM EDT 3 mL sodium chloride 0.9 % infusion 40 mL 40 mL, Intravenous, at 100 mL/hr, As Needed, Line Care, Starting on Wed06/06/25 at 2030, Following administration of an IV intermittent medication, flush line with 40mL NS at 100mL/hr. sodium chloride nasal spray 2 spray 2 spray, Each Nare, Every 30 Minutes PRN, Congestion, Starting on Wed06/13/25 at 0329, ([facility]) Given 06/13/2025 4:15 AM EDT 2 sprays vancomycin (dosing per levels) Daily, 10 doses, First dose (after last modification) on Wed06/14/25 at 0900, Last dose on Wed06/23/25 at 0900, Antimicrobial Indication: Bacteremia vancomycin (VANCOCIN) 1,000 mg in sodium chloride 0.9 % 250 mL IVPB-VTB 1,000 mg, Intravenous, at 250 mL/hr, Administer over 60 Minutes, Once, On Wed06/13/25 at 0900, For 1 dose, To be given during the last hour of hemodialysis., Indications: BacteremiaIndications:Bacteremia New Bag 06/13/2025 10:34 AM EDT 1,000 mg 250 mL/hr vancomycin 2250 mg/500 mL 0.9% NS IVPB ([facility]) 2,250 mg, Intravenous, Administer over 135 Minutes, Once, On Wed06/12/25 at 1800, For 1 dose, Indications: BacteremiaIndications:Bacteremia New Bag 06/12/2025 6:06 PM EDT 2,250 mg documented in this encounter Active and Recently Administered Medications Times are shown in EDT. Scheduled Medication Order 06/12/2025 06/13/2025 06/14/2025 amiodarone (PACERONE) tablet 200 mg 200 mg, Oral, 2 Times Daily, First dose on Betty 06/07/25 at 1315, Avoid grapefruit juice while taking this medication. 08 (Given - Provider: Lita Smith RN)2026 (Given - Provider: Jim Howell RN) 1341 (Hold - Provider: Lita Smith RN - Reason: Patient not available)2014 (Given - Provider: Jim Howell RN) 0945 (Given - Provider: Jai Zayas, HIEU) amLODIPine (NORVASC) tablet 10 mg 10 mg, Oral, Every 24 Hours Scheduled, First dose on Betty 06/14/25 at 0900, Hold for SBP less than 100, DBP less than 60. Caution: Look alike/sound alike drug alert. Avoid grapefruit juice. 0945 (Given - Provider: Jai Zayas, HIEU) apixaban (ELIQUIS) tablet 5 mg 5 mg, Oral, Every 12 Hours Scheduled, First dose (after last modification) on Wed06/11/25 at 2100, Tablet may be crushed and suspended in 60 mL of water or D5W and immediately delivered via NG tube., Indications: Atrial Fibrillation - requiring full anticoagulation 0836 (Given - Provider: Lita Smith RN)2026 (Given - Provider: Jim Howell RN) 1341 (Hold - Provider: Lita Smith RN - Reason: Patient not available)2014 (Given - Provider: Jim Howell RN) 0945 (Given - Provider: Jai Zayas, HIEU) aspirin chewable tablet 81 mg(Linked Group 1) 81 mg, Oral, Daily, First dose on Betty 06/07/25 at 0900, If patient fails dysphagia, OR option MUST be given. Do not exceed 4 grams of aspirin in a 24 hr period. If given for pain, use the following pain scale: Mild Pain = Pain Score of 1-3, CPOT 1-2 Moderate Pain = Pain Score of 4-6, CPOT 3-4 Severe Pain = Pain Score of 7-10, CPOT 5-8 0836 (Given - Provider: Lita Smith RN) 1342 (Hold - Provider: Lita Smith RN - Reason: Patient not available) 0945 (Given - Provider: Jai Zayas RN) aspirin suppository 300 mg(Linked Group 1) 300 mg, Rectal, Daily, First dose on Betty 06/07/25 at 0900, If patient fails dysphagia, OR option MUST be given. Do not exceed 4 grams of aspirin in a 24 hr period. If given for pain, use the following pain scale: Mild Pain = Pain Score of 1-3, CPOT 1-2 Moderate Pain = Pain Score of 4-6, CPOT 3-4 Severe Pain = Pain Score of 7-10, CPOT 5-8 0836 (Not Given: See Alt - Provider: Lita Smith RN) 1342 (Not Given: See Alt - Provider: Lita Smith RN) 0945 (Not Given: See Alt - Provider: Jai Zayas RN) atorvastatin (LIPITOR) tablet 80 mg 80 mg, Oral, Nightly, First dose on Betty 06/07/25 at 2100, Avoid grapefruit juice. 2026 (Given - Provider: Jim Howell RN) 2014 (Given - Provider: Jim Howell RN) cefTRIAXone (ROCEPHIN) 2,000 mg in sodium chloride 0.9 % 100 mL MBP (CANCELED) 2,000 mg, Intravenous, at 200 mL/hr, Administer over 30 Minutes, Every 24 Hours, First dose on Betty 06/07/25 at 0600, For 28 doses, LR should be paused and flushing of the line with NS is recommended prior to and after completion of ceftriaxone infusion due to incompatibility. Do not co-adminster with calcium-containing solutions. Caution: Look alike/sound alike drug alert, Indications: Intra-Abdominal Infection, Pneumonia 0835 (New Bag - Provider: Lita Smith RN - Comment: infiltrated IV) guaiFENesin (MUCINEX) 12 hr tablet 600 mg 600 mg, Oral, Every 12 Hours Scheduled, First dose on Betty 06/07/25 at 1330, Do not crush or chew the capsules or tablets. The drug may not work as designed if the capsule or tablet is crushed or chewed. Swallow whole. Caution: Look alike/sound alike drug alert Do not crush, split, or chew. 0836 (Given - Provider: Lita Smith RN)2026 (Given - Provider: Jim Howell RN) 134 (Hold - Provider: Lita Smith RN - Reason: Patient not available)2014 (Given - Provider: Jim Howell RN) 0945 (Given - Provider: Jai Zayas, HIEU) ipratropium-albuterol (DUO-NEB) nebulizer solution 3 mL (CANCELED) 3 mL, Nebulization, 4 Times Daily - RT, First dose on Betty 06/07/25 at 0830, Include Respiratory Treatment Education 0827 (Given - Provider: Lynn Castano, WIND T[employer]NEL MECH[employer]IC)1213 (Given - Provider: Lynn Castano, SARAH)1803 (Not Given - Provider: Lynn Castano RRT - Reason: Other - Comment: RT UNAVAILABLE (PFT)) labetalol (NORMODYNE,TRANDATE) injection 10 mg (COMPLETED) 10 mg, Intravenous, Once, On Betty 06/14/25 at 0115, For 1 dose, As ordered Give IV Push over 2 minutes. 0027 (Given - Provider: Jim Howell RN) pantoprazole (PROTONIX) EC tablet 40 mg 40 mg, Oral, Daily, First dose on Betty 06/07/25 at 1315, Do not crush or chew the capsules or tablets. The drug may not work as designed if the capsule or tablet is crushed or chewed. Swallow whole. Swallow whole; do not crush, split, or chew. 0836 (Given - Provider: Lita Smith RN) 134 (Hold - Provider: Lita Smith RN - Reason: Patient not available) 0945 (Given - Provider: Jai Zayas, HIEU) sodium chloride 0.9 % flush 10 mL 10 mL, Intravenous, Every 12 Hours Scheduled, First dose on Wed06/06/25 at 2130 0837 (Given - Provider: Lita Smith, RN)2035 (Canceled Entry - Provider: Jim Howell RN) 1328 (Given - Provider: Lita Smith RN)2300 (Canceled Entry - Provider: Jim Howell RN) 0949 (Canceled Entry - Provider: Jai Zayas RN) sodium chloride 0.9 % flush 10 mL 10 mL, Intravenous, Every 12 Hours Scheduled, First dose on Betty 06/07/25 at 0045 0835 (Given - Provider: Lita Smith RN)2035 (Canceled Entry - Provider: Jim Howell RN) 1328 (Given - Provider: Lita Smith RN)2300 (Canceled Entry - Provider: Jim Howell RN) 0949 (Canceled Entry - Provider: Jai Zayas RN) vancomycin (dosing per levels) Daily, 10 doses, First dose (after last modification) on Betty 06/14/25 at 0900, Last dose on 06/23/25 at 0900, Antimicrobial Indication: Bacteremia 0949 (Canceled Entry - Provider: Jai Zayas RN) vancomycin (VANCOCIN) 1,000 mg in sodium chloride 0.9 % 250 mL IVPB-VTB (COMPLETED) 1,000 mg, Intravenous, at 250 mL/hr, Administer over 60 Minutes, Once, On Wed06/13/25 at 0900, For 1 dose, To be given during the last hour of hemodialysis., Indications: Bacteremia 1034 (New Bag - Provider: Micky Edmonds RN) vancomycin 2250 mg/500 mL 0.9% NS IVPB ([facility]) (COMPLETED) 2,250 mg, Intravenous, Administer over 135 Minutes, Once, On Wed06/12/25 at 1800, For 1 dose, Indications: Bacteremia 1806 (New Bag - Provider: Lita Smith RN) PRN Medication Order 06/12/2025 06/13/2025 06/14/2025 acetaminophen (TYLENOL) 160 MG/5ML oral solution 650 mg(Linked Group 2) 650 mg, Oral, Every 4 Hours PRN, Mild Pain, Starting on Wed06/06/25 at 2346, If given for fever, use fever parameter: fever greater than 100.4 F Based on patient request - if ordered for moderate or severe pain, provider allows for administration of a medication prescribed for a lower pain scale. Do not exceed 4 grams of acetaminophen in a 24 hr period. Max dose of 2gm for AST/ALT greater than 120 units/L. If given for pain, use the following pain scale: Mild Pain = Pain Score of 1-3, CPOT 1-2 Moderate Pain = Pain Score of 4-6, CPOT 3-4 Severe Pain = Pain Score of 7-10, CPOT 5-8 acetaminophen (TYLENOL) suppository 650 mg(Linked Group 2) 650 mg, Rectal, Every 4 Hours PRN, Mild Pain, Starting on Wed06/06/25 at 2346, If given for fever, use fever parameter: fever greater than 100.4 F Based on patient request - if ordered for moderate or severe pain, provider allows for administration of a medication prescribed for a lower pain scale. Do not exceed 4 grams of acetaminophen in a 24 hr period. Max dose of 2gm for AST/ALT greater than 120 units/L. If given for pain, use the following pain scale: Mild Pain = Pain Score of 1-3, CPOT 1-2 Moderate Pain = Pain Score of 4-6, CPOT 3-4 Severe Pain = Pain Score of 7-10, CPOT 5-8 acetaminophen (TYLENOL) tablet 650 mg(Linked Group 2) 650 mg, Oral, Every 4 Hours PRN, Mild Pain, Starting on Wed06/06/25 at 2346, If given for fever, use fever parameter: fever greater than 100.4 F Based on patient request - if ordered for moderate or severe pain, provider allows for administration of a medication prescribed for a lower pain scale. Do not exceed 4 grams of acetaminophen in a 24 hr period. Max dose of 2gm for AST/ALT greater than 120 units/L. If given for pain, use the following pain scale: Mild Pain = Pain Score of 1-3, CPOT 1-2 Moderate Pain = Pain Score of 4-6, CPOT 3-4 Severe Pain = Pain Score of 7-10, CPOT 5-8 albumin human 25 % IV SOLN 12.5 g 12.5 g, Intravenous, Administer over 30 Minutes, As Needed, for hypotension during dialysis, Starting on Wed06/08/25 at 1500, Indications: Hemodialysis Procedure bisacodyl (DULCOLAX) EC tablet 5 mg(Linked Group 3) 5 mg, Oral, Daily PRN, Constipation, Use if polyethylene glycol is ineffective, Starting on Wed06/06/25 at 2346, Use if no bowel movement after 12 hours. Swallow whole. Do not crush, split, or chew tablet. bisacodyl (DULCOLAX) suppository 10 mg(Linked Group 3) 10 mg, Rectal, Daily PRN, Constipation, Use if bisacodyl oral is ineffective, Starting on Wed06/06/25 at 2346, Use if no bowel movement after 12 hours. Hold for diarrhea 1328 (Given - Provider: Lita Smith RN) Calcium Replacement - Follow Nurse / BPA Driven Protocol Open Order & Select [facility] Electrolyte Replacement Protocol Algorithm to View Details heparin (porcine) injection 2,000 Units 2,000 Units, Intracatheter, As Needed, Hd, Starting on Wed06/11/25 at 1041, For 10 days, Indications: for Hd cath 1146 (Given - Provider: Micky Edmonds RN - Comment: 2.3 ml per lumen) HYDROmorphone (DILAUDID) injection 0.5 mg(Linked Group 4) 0.5 mg, Intravenous, Every 2 Hours PRN, Severe Pain, Starting on Wed06/09/25 at 1230, For 10 days, (MEENA) Caution: Look alike/sound alike drug alert If given for pain, use the following pain scale: Mild Pain = Pain Score of 1-3, CPOT 1-2 Moderate Pain = Pain Score of 4-6, CPOT 3-4 Severe Pain = Pain Score of 7-10, CPOT 5-8 ipratropium-albuterol (DUO-NEB) nebulizer solution 3 mL 3 mL, Nebulization, Every 6 Hours PRN, Shortness of Air, Starting on Wed06/12/25 at 1815, Include Respiratory Treatment Education Magnesium Standard Dose Replacement - Follow Nurse / BPA Driven Protocol Open Order & Select S Electrolyte Replacement Protocol Algorithm to View Details naloxone (NARCAN) injection 0.1 mg(Linked Group 4) 0.1 mg, Intravenous, Every 5 Minutes PRN, Respiratory Depression, Starting on Wed06/09/25 at 1230, If respiratory rate is less than 8 breaths/minute or patient is difficult to arouse stop any narcotics and contact physician. Administer slow IV push. Repeat as ordered until patient's respiratory rate is greater than 12 breaths/minute. nitroglycerin (NITROSTAT) SL tablet 0.4 mg 0.4 mg, Sublingual, Every 5 Minutes PRN, Chest Pain, Starting on 06/06/25 at 2346, If Pain Unrelieved After 3 Doses Notify MD May administer up to 3 doses per episode. Hold if SBP less than 100. ondansetron (ZOFRAN) injection 4 mg 4 mg, Intravenous, Every 6 Hours PRN, Nausea, Vomiting, Starting on Wed06/06/25 at 2346, If BOTH ondansetron (ZOFRAN) and promethazine (PHENERGAN) are ordered use ondansetron first and THEN promethazine IF ondansetron is ineffective. 1333 (Given - Provider: Jai Zayas RN) oxyCODONE-acetaminophen (PERCOCET) 5-325 MG per tablet 1 tablet 1 tablet, Oral, Every 4 Hours PRN, Moderate Pain, Starting on 06/09/25 at 1230, For 10 days, [MEENA] Do not exceed 4 grams of acetaminophen in a 24 hr period. If given for pain, use the following pain scale: Mild Pain = Pain Score of 1-3, CPOT 1-2 Moderate Pain = Pain Score of 4-6, CPOT 3-4 Severe Pain = Pain Score of 7-10, CPOT 5-8 [MEENA] Do not exceed 4 grams of acetaminophen in a 24 hr period. Max dose of 2gm for AST/ALT greater than 120 units/L If given for pain, use the following pain scale: Mild Pain = Pain Score of 1-3, CPOT 1-2 Moderate Pain = Pain Score of 4-6, CPOT 3-4 Severe Pain = Pain Score of 7-10, CPOT 5-8 Pharmacy to dose vancomycin Continuous PRN, Starting on Wed06/12/25 at 0907, Until Betty 06/14/25 at 1733, Consult, Indications: Bacteremia Phosphorus Replacement - Follow Nurse / BPA Driven Protocol Open Order & Select [facility] Electrolyte Replacement Protocol Algorithm to View Details polyethylene glycol (MIRALAX) packet 17 g(Linked Group 3) 17 g, Oral, Daily PRN, Constipation, Use if senna-docusate is ineffective, Starting on Wed06/06/25 at 2346, Use if no bowel movement after 12 hours. Mix in 6-8 ounces of water. Use 4-8 ounces of water, tea, or juice for each 17 gram dose. 2030 (Not Given - Provider: Jim Howell RN - Reason: Patient/family refused) 1223 (Given - Provider: Lita Smith, HIEU) Potassium Replacement - Follow Nurse / BPA Driven Protocol Open Order & Select [facility] Electrolyte Replacement Protocol Algorithm to View Details sennosides-docusate (PERICOLACE) 8.6-50 MG per tablet 2 tablet(Linked Group 3) 2 tablet, Oral, 2 Times Daily PRN, Constipation, Starting on Wed06/06/25 at 2346, Start bowel management regimen if patient has not had a bowel movement after 12 hours. 0836 (Given - Provider: Lita Smith, HIEU) 2014 (Given - Provider: Jim Howell RN) simethicone (MYLICON) chewable tablet 80 mg 80 mg, Oral, 4 Times Daily PRN, Flatulence, Starting on 06/09/25 at 1503 2026 (Not Given - Provider: Jim Howell RN - Reason: Patient/family refused) sodium chloride 0.9 % flush 10 mL 10 mL, Intravenous, As Needed, Line Care, Starting on Wed06/06/25 at 2030 sodium chloride 0.9 % flush 10 mL 10 mL, Intravenous, As Needed, Line Care, Starting on Wed06/06/25 at 2346 sodium chloride 0.9 % infusion 40 mL 40 mL, Intravenous, at 100 mL/hr, As Needed, Line Care, Starting on Wed06/06/25 at 2030, Following administration of an IV intermittent medication, flush line with 40mL NS at 100mL/hr. sodium chloride nasal spray 2 spray 2 spray, Each Nare, Every 30 Minutes PRN, Congestion, Starting on Wed06/13/25 at 0329, ([facility]) 0415 (Given - Provider: Jim Howell, HIEU) Linked Groups Order Group 1: aspirin chewable tablet 81 mgJump to med 81 mg, Oral, Daily, First dose on Betty 06/07/25 at 0900, If patient fails dysphagia, OR option MUST be given. Do not exceed 4 grams of aspirin in a 24 hr period. If given for pain, use the following pain scale: Mild Pain = Pain Score of 1-3, CPOT 1-2 Moderate Pain = Pain Score of 4-6, CPOT 3-4 Severe Pain = Pain Score of 7-10, CPOT 5-8 Or aspirin suppository 300 mgJump to med 300 mg, Rectal, Daily, First dose on Betty 06/07/25 at 0900, If patient fails dysphagia, OR option MUST be given. Do not exceed 4 grams of aspirin in a 24 hr period. If given for pain, use the following pain scale: Mild Pain = Pain Score of 1-3, CPOT 1-2 Moderate Pain = Pain Score of 4-6, CPOT 3-4 Severe Pain = Pain Score of 7-10, CPOT 5-8 Group 2: acetaminophen (TYLENOL) tablet 650 mgJump to med 650 mg, Oral, Every 4 Hours PRN, Mild Pain, Starting on Wed06/06/25 at 2346, If given for fever, use fever parameter: fever greater than 100.4 F Based on patient request - if ordered for moderate or severe pain, provider allows for administration of a medication prescribed for a lower pain scale. Do not exceed 4 grams of acetaminophen in a 24 hr period. Max dose of 2gm for AST/ALT greater than 120 units/L. If given for pain, use the following pain scale: Mild Pain = Pain Score of 1-3, CPOT 1-2 Moderate Pain = Pain Score of 4-6, CPOT 3-4 Severe Pain = Pain Score of 7-10, CPOT 5-8 Or acetaminophen (TYLENOL) 160 MG/5ML oral solution 650 mgJump to med 650 mg, Oral, Every 4 Hours PRN, Mild Pain, Starting on 06/06/25 at 2346, If given for fever, use fever parameter: fever greater than 100.4 F Based on patient request - if ordered for moderate or severe pain, provider allows for administration of a medication prescribed for a lower pain scale. Do not exceed 4 grams of acetaminophen in a 24 hr period. Max dose of 2gm for AST/ALT greater than 120 units/L. If given for pain, use the following pain scale: Mild Pain = Pain Score of 1-3, CPOT 1-2 Moderate Pain = Pain Score of 4-6, CPOT 3-4 Severe Pain = Pain Score of 7-10, CPOT 5-8 Or acetaminophen (TYLENOL) suppository 650 mgJump to med 650 mg, Rectal, Every 4 Hours PRN, Mild Pain, Starting on Wed06/06/25 at 2346, If given for fever, use fever parameter: fever greater than 100.4 F Based on patient request - if ordered for moderate or severe pain, provider allows for administration of a medication prescribed for a lower pain scale. Do not exceed 4 grams of acetaminophen in a 24 hr period. Max dose of 2gm for AST/ALT greater than 120 units/L. If given for pain, use the following pain scale: Mild Pain = Pain Score of 1-3, CPOT 1-2 Moderate Pain = Pain Score of 4-6, CPOT 3-4 Severe Pain = Pain Score of 7-10, CPOT 5-8 Group 3: sennosides-docusate (PERICOLACE) 8.6-50 MG per tablet 2 tabletJump to med 2 tablet, Oral, 2 Times Daily PRN, Constipation, Starting on Wed06/06/25 at 2346, Start bowel management regimen if patient has not had a bowel movement after 12 hours. And polyethylene glycol (MIRALAX) packet 17 gJump to med 17 g, Oral, Daily PRN, Constipation, Use if senna-docusate is ineffective, Starting on Wed06/06/25 at 2346, Use if no bowel movement after 12 hours. Mix in 6-8 ounces of water. Use 4-8 ounces of water, tea, or juice for each 17 gram dose. And bisacodyl (DULCOLAX) EC tablet 5 mgJump to med 5 mg, Oral, Daily PRN, Constipation, Use if polyethylene glycol is ineffective, Starting on Wed06/06/25 at 2346, Use if no bowel movement after 12 hours. Swallow whole. Do not crush, split, or chew tablet. And bisacodyl (DULCOLAX) suppository 10 mgJump to med 10 mg, Rectal, Daily PRN, Constipation, Use if bisacodyl oral is ineffective, Starting on Wed06/06/25 at 2346, Use if no bowel movement after 12 hours. Hold for diarrhea Group 4: HYDROmorphone (DILAUDID) injection 0.5 mgJump to med 0.5 mg, Intravenous, Every 2 Hours PRN, Severe Pain, Starting on 06/09/25 at 1230, For 10 days, (MEENA) Caution: Look alike/sound alike drug alert If given for pain, use the following pain scale: Mild Pain = Pain Score of 1-3, CPOT 1-2 Moderate Pain = Pain Score of 4-6, CPOT 3-4 Severe Pain = Pain Score of 7-10, CPOT 5-8 And naloxone (NARCAN) injection 0.1 mgJump to med 0.1 mg, Intravenous, Every 5 Minutes PRN, Respiratory Depression, Starting on 06/09/25 at 1230, If respiratory rate is less than 8 breaths/minute or patient is difficult to arouse stop any narcotics and contact physician. Administer slow IV push. Repeat as ordered until patient's respiratory rate is greater than 12 breaths/minute. 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
--- OUTSIDE RECORDS SUMMARY | 2025-06-07 15:10 | XMS_ITS | Encounter Summary ---
[facility] Address [address] [place] [address] Care Team Providers Care Associate Professor Of Geology Name Role Phone Jeffrey Sun MD Primary Care Provider + [phone] Reason for Visit * Auth/Cert Specialty Diagnoses / Procedures Referred By Neil stephens Referred To Contact Diagnoses Cerebrovascular Accident (stroke) Referral ID Status Reason Start Date Expiration Date Visits Re quested Visits Authorized [id number] 1 1 Encounter Details Date Type Department Care Team (Late st Contact Info) Description 06/07/2025 4:10 PM EDT Ancillary Procedure [facility] IP SPEECH PATH [address] [place] [address] Social History Tobacco Use Types Packs/Day Years Used Date Smoking Tobacco: Never Smokeless Tobacco: Never Alcohol Use Standard Drinks/Week Comments Never 0 (1 standard drink = 0.6 oz pur e alcohol) [facility] Utilities Answer Date Recorded In the past 12 months has [employer], gas, oil, or water company threatened to [...] GED or equivalent No 06/07/2025 Preferred Language Hungarian 06/07/2025 Sex and Gender Information Value Date Recorded Sex Assigned at Not on file Legal Sex Male 1:16 PM EDT Gender Identity Not on file Sexual Orientation Not on file documented as of this encounter Functional Status * Question Answer Date of Assessment Author 1. Wish to be (Past 1 Month) No 025 6:16 AM EDT Linda Schafer, HIEU 2. Non-Specific Active Suici dawit Thoughts (Past 1 Month) No 06/07/2025 6:16 AM EDT Alaina Schafer RN * Calculated C-SSRS Risk Score (Lifetime/Recent) Answer Date of Assessment Author No Risk Indicated 06/07/2025 6:16 AM EDT Linda Schafer RN * [place] Suicide Severity Rating Scale (Screener/Recent Self-Report) Question Answer Date of Assessment Author 6. Suicidal Behavior (Lifetime) No 6:16 AM EDT Linda Schafer RN documented as of this encounter Plan of Treatment Upcoming Encounters Date Type Department Care Team (Late st Contact Info) Description 12:30 PM EST Pre-Admission Testing [facility] PREADMISSION T [address] [place] [address] 5 3:20 PM EST Hospital Encounter [facility] ENDO SUITES [address] [place] [address] Arnel Bell MD [address] [facility] [address] [place] [place], [place] [id number] 5 3:20 PM EST - 5 4:02 PM EST Surgery [facility] ENDO SUITES [address] [place] [address] Arnel Bell MD [address] [facility] [address] [place] [address] ENDOSCOPIC RETROGRADE CHOLANGIOPANCREATOGRAPHY [63113 (CPT )] Scheduled Procedures Name Priority Associated Diagnoses Date/Ti me ENDOSCOPIC RETROGRADE CHOLANGIOPANCREATOGRAPHY Encounter for removal of biliary stent 08/16/2025 3:20 PM EST documented as of this encounter Procedures Procedure Name Priority Date/Time Associated Diagnosis Comments 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 Krystal Orozco MD ROTARY SWAGING MACHINE OPERATOR ORDERABLES Final Result documented in this encounter Visit Diagnoses Not on filedocumented in this encounter Additional Health Concerns Infection Onset Date Last Indicated Resolved Time Nettie Auris (rule out) 06/07/2025 06/07/2025 8:51 AM EDT documented as of this encounter Care Teams Associate Professor Of Geology Relationship Specialty Start Date End Date Jeffrey Sun MD [address] [facility] [address] [facility] [address] [place] [address] PCP - General Family Medicine 06/06/25 documented as of this encounter
--- OUTSIDE RECORDS SUMMARY | 2025-06-08 08:08 | XMS_ITS | Encounter Summary ---
[facility] Address [address] [place] [address] Care Team Providers Care Tag Meter Operator Name Role Phone Jeffrey Snu MD Primary Care Provider + [phone] Reason for Visit * Auth/Cert Specialty Diagnoses / Procedures Referred By Neil stephens Referred To Contact Diagnoses Cerebrovascular Accident (stroke) Referral ID Status Reason Start Date Expiration Date Visits Re quested Visits Authorized [id number] 1 1 Encounter Details Date Type Department Care Team (Late st Contact Info) Description 06/08/2025 9:08 AM EDT - 06/08/2025 10:15 AM EDT Surgery PSYCHIATRIC ENDO [address] [place] [address] Kishore Foote MD [address] [facility] [address] [place] [address] ENDOSCOPIC RETROGRADE CHOLANGIOPANCREATOGRAPHY [80084 (CPT )] Social History Tobacco Use Types Packs/Day Years Used Date Smoking Tobacco: Never Smokeless Tobacco: Never Tobacco Cessation:Counseling Given: No Alcohol Use Standard Drinks/Week Comments Never 0 (1 standard drink = 0.6 oz pur e alcohol) [facility] Utilities Answer Date Recorded In the past 12 months has [employer], gas, oil, or water company threatened to [...] GED or equivalent No 06/07/2025 Preferred Language Belizean 06/07/2025 Sex and Gender Information Value Date Recorded Sex Assigned at Not on file Legal Sex Male 1:16 PM EDT Gender Identity Not on file Sexual Orientation Not on file documented as of this encounter Last Filed Vital Signs Vital Sign Reading Time Taken Comments Blood Pressure 134/64 06/08/2025 8:49 AM EDT Pulse 51 06/08/2025 10:00 AM EDT Temperature 36.2 C (97.1 F) 06/08/2025 8:49 AM EDT Respiratory Rate 16 06/08/2025 8:49 AM EDT Oxygen Saturation 97% 06/08/2025 10:00 AM EDT Inhaled Oxygen Concentration - - Weight 134 kg (295 lb 6.7 oz) 06/07/2025 3:44 PM EDT Height 193 cm (6' 3.98 ) 06/07/2025 3:44 PM EDT Body Mass Index 35.92 06/11/2025 2:43 PM EDT documented in this encounter Functional Status * Question Answer Date of Assessment Author 1. Wish to be (Past 1 Month) No 025 6:16 AM EDT Linda Schafer RN 2. Non-Specific Active Suici dawit Thoughts (Past 1 Month) No 06/07/2025 6:16 AM EDT Alaian Schafer RN * Calculated C-SSRS Risk Score (Lifetime/Recent) Answer Date of Assessment Author No Risk Indicated 06/07/2025 6:16 AM EDT Linda Schafer RN * [place] Suicide Severity Rating Scale (Screener/Recent Self-Report) Question Answer Date of Assessment Author 6. Suicidal Behavior (Lifetime) No 6:16 AM EDT Linda Schafer, HIEU documented as of this encounter Discharge Summaries * Tesha Coelho RN - 06/14/2025 1:30 PM EDT Images from the original note were not included. Alexa Fuentes (74 y.o. Male) Tesha ANGULO [phone] Date of 1950 Social Security Number [id number] Address [place] [address] [place] None Marital Status Admission Date 06/06/2025 Admission Type Urgent Admitting Provider Bell Carmen MD Attending Provider Bell Carmen MD Department, Room/Bed PSYCHIATRIC 3F, S325/1 Discharge Date Discharge Disposition [facility] Facility (DC - External) Discharge Destination Attending [...] Plan Fax Number Effective Dates [id number] 11/11/2013 - None Entered [place] [id number] Subscriber Name Subscriber Date Member ID ALEXA FUENTES 1950 [id number] Emergency Contacts Tip Stretcher (Rel.) Home Phone Work Phone Mobile Phone Teto FUENTES (Son) [phone] -- [phone] Gabriel Fuentes (Other) -- -- [phone] Discharge Summary Bell Carmen MD at 06/13/25 1001 [facility] Medicine Services DISCHARGE SUMMARY Patient Name: Alexa [...] was recommended for continued therapy at a senior living facility. 2. Sepsis, Community-Acquired Pneumonia, and Streptococcus [...] and coordination was madefor outpatient dialysis at [facility]. 6. Atrial Fibrillation Valvular Heart [...] ADLs, and was recommended for discharge to askilled nursing facility for continued rehabilitation and care. [...] MD 06/11/2025 7:44 AM EDT Workstation ID: [id number] FL ERCP pancreatic and biliary ducts Result Date: 06/08/2025 Impression: Impression: Fluoroscopy demonstrates filling of the bile ducts. Please see procedure report for full findings. 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 In addition he was found to have pneumonia and possible choledocholithiasis. Stroke team accepted in transfer to [facility]. Upon further workup found to have left [...] positive for strep pneumo. Infectious disease, Pantera Dao following: CTX dc'd plan to continue 1 [...] BID per stroke neruo and cards recs --PT/OT/FINANCIAL INSTITUTION PRESIDENT evaluations- back to extended care Choledocholithiasis --CT [...] the OR 06/[address] 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 A positive result may indicate colonization with MRSA and must be correlated clinically. KIMANI AURIS PCR - Swab, Axilla Right, Axilla Left and Groin [[id number]] Collected: 06/07/25 0845 Lab Status: Final result Specimen: Swab from Axilla Right, Axilla Left and Groin Updated: 06/08/25 1715 KIMANI AURIS PCR (MITUL) Not Detected Blood Culture - Blood, Wrist, Left [[id number]] (Normal) Collected: 06/07/25 0603 Lab Status: Final result Specimen: Blood from Wrist, Left Updated: 06/12/25 0730 Blood Culture No growth at 5 days Narrative: Aerobic Bottle Only Less than seven (7) mL's of blood was collected. Insufficient quantity may yield false negative results. Blood Culture - Blood, Wrist, Left [[id number]] (Normal) Collected: 06/07/25 0601 Lab Status: Final [...] disease compatible with pneumonia. Electronically Signed: Jose Jeuss MD 06/11/2025 7:44 AM EDT Workstation ID: [id number] FL ERCP pancreatic and biliary ducts Result Date: 06/08/2025 FL ERCP PANCREATIC AND BILIARY DUCTS Date of Exam: 06/08/2025 10:49 AM EDT Indication: ENDOSCOPIC RETROGRADE CHOLANGIOPANCREATOGRAPHY. Comparison: None available. Technique: A series of radiographic digital spot films were obtained in conjunction with an endoscopic catheterization of the biliary andpancreatic ductal system, performed by the tire manager. Fluoroscopic Time: 5 minutes 57 seconds Number of Images: 10 Findings: Fluoroscopy demonstrates filling of the bile ducts. Impression: Fluoroscopy demonstrates filling of the bile ducts. Please see procedure report for full findings. Electronically Signed: Migue Mcfarlane MD 06/08/2025 3:48 PM EDT Workstation ID: [id number] Duplex Carotid Ultrasound CAR Result Date: 06/07/2025 Right internal carotid artery demonstrates a less than 50% stenosis. Right vertebral artery was notvisualized. Left internal carotid artery demonstrates a less than 50% stenosis. Antegrade left vertebral flow. FINANCIAL INSTITUTION PRESIDENT FEES - Fiberoptic Endo Eval Swallow Result [...] hydronephrosis. No dilated bowel loops within the agquw-tr-nkpx. No free fluid in the abdomen. No [...] MD 06/07/2025 10:26 AM EDT Workstation ID: [id number] MRI Brain Without Contrast Result Date: 06/07/2025 [...] MD 06/07/2025 10:22 AM EDT Workstation ID: [id number] CT Outside Films Result Date: 06/06/2025 This [...] 5 MG tablet tablet Commonly known as: ELIDAISHA What changed: medication strength how much to [...] Daily, 30-600mg 1 tablet twice daily between 5333-5374 loperamide 2 MG capsule Commonly known as: IMODIUM 2 mg, Oral, 4 Times Daily PRN midodrine 5 MG tablet Commonly known as: PROAMATINE 10 mg, Oral, 3 Times Weekly, Mon, Wed, Sat between 0039-4730 montelukast 10 MG tablet Commonly known as: SINGULAIR 10 mg, Oral, Nightly ondansetron 4 MG tablet Commonly known as: ZOFRAN 4 mg, Oral, 3 Times Daily PRN pantoprazole 40 MG EC tablet Commonly known as: PROTONIX 40 mg, Oral, Daily ProSource No Carb liquid 30 mL, Oral, Daily CHRISTINE-LCAUDE PO 1 tablet, Oral, Daily vitamin B-12 1000 MCG tablet Commonly known as: CYANOCOBALAMIN 1,000 mcg, Oral, Daily Zinc Sulfate 220 (50 Zn) MG tablet 1 tablet, Oral, Daily Stop These Medications promethazine-dextromethorphan 6.25-15 MG/5ML syrup Commonly known as: PROMETHAZINE-DM No Known Allergies Discharge Disposition: [facility] Facility (DC - External) Diet: Hospital: Diet [...] minutes on this discharge activity which included: atih-lz-grflycwxhafjl with the patient, reviewing the data in the system, coordination of the care with the nursing staff as well as consultants, documentation, and entering orders. Electronically signed by Sophie Flor APRN, 06/14/25, 12:10 PM EDT. 1221 INFECTIOUS DISEASE Progress Note Alexa Fuentes 1950 [id number] Date of Consult: 06/08/2025 Admission Date: 06/06/2025 [...] Streptococcus pneumoniae bacteremia. He was transferred from [facility] to [facility] on 06/06 for concerns for stroke along with altered mental status. [facility] be more [facility]argic and confused and was transferred to [facility]. His CT scan[facility] showed acute/subacute left occipital lobe ischemia and [...] started on IV antibiotics and transferred to [facility] on 06/06. Since arrival, the patient has [...] his antibiotic therapy. His blood cultures from [facility] became positive for GPC in pairs in [...] Surgeon: Charles Guerrero MD; Location: [facility] OR; Service: General; Laterality: N/A; COLONOSCOPY ERCP N/A 06/08/2025 Procedure: ENDOSCOPIC RETROGRADE CHOLANGIOPANCREATOGRAPHY; Surgeon: Kishore Foote MD; Location: [facility]; Service: Gastroenterology; Laterality: N/A; KNEE SURGERY [...] Each Nare, Q30 Min PRN, Laure Billings, FREIGHT SERVICE INSPECTOR, 2 spray at 06/13/25 0415 vancomycin (dosing [...] per levels) Status: Discontinued Ordering Provider: Anjana Cali PharmD Not Applicable Daily 06/13/25 0906/12/25 0958 [...] MRSA Screen, PCR (Inpatient) - Swab, Nares [[id number]] (Abnormal) Collected: 06/08/25 190 Lab Status: Final result Specimen: Swab from Nares Updated: 06/08/252151 MRSA PCR Positive Narrative: The negative predictive value of this diagnostic test is high and should only be used to consider de-escalating anti-MRSA therapy. A positive result may indicate colonization with MRSA and must be correlated clinically. KIMANI AURIS PCR - Swab, Axilla Right, Axilla Left and Groin [[id number]] Collected: 06/07/25 0845 Lab Status: Final result Specimen: Swab from Axilla Right, Axilla Left and Groin Updated: 06/08/25 1715 KIMANI AURIS PCR (MITUL) Not Detected Blood Culture - Blood, Wrist, Left [[id number]] (Normal) Collected: 06/07/25 0603 Lab Status: Final result Specimen: Blood from Wrist, Left Updated: 06/12/25 0730 Blood Culture No growth at 5 days Narrative: Aerobic Bottle Only Less than seven (7) mL's of blood was collected. Insufficient quantity may yield false negative results. Blood Culture - Blood, Wrist, Left [[id number]] (Normal) Collected: 06/07/25 0601 Lab Status: Final result Specimen: Blood from Wrist, Left Updated: 06/12/25 0730 Blood Culture No growth at 5 days Narrative: Aerobic Bottle Only Less than seven (7) mL's of blood was collected. Insufficient quantity may yield false negative results. Radiology: Imaging Results (Last 72 Hours) Procedure Component Value Units Date/Time CT Soft Tissue Neck Without Contrast [[id number]] Collected: 06/11/25 0737 Updated: 06/11/25 0747 Narrative: [...] MD 06/11/2025 7:44 AM EDT Workstation ID: [id number] I read his radiographic images. Impression: Pneumococcal [...] complex patient. Pantera Dc MD * Sophie Flor, FREIGHT SERVICE INSPECTOR - 06/14/2025 12:10 PM EDT Images from the original note were not included. [facility] Medicine Services DISCHARGE SUMMARY Patient Name: Alexa [...] resolved problems to display. Hospital Course: Alexa Feuntes is a 74 y.o. male with hx of HTN, HLD, COPD, Afib on Eliquis, and ESRD on HD who presents from [facility] due to AMS and concern for stroke. In addition he was found to have pneumonia and possible choledocholithiasis. Stroke team accepted in transfer to [facility]. Upon further workup found to have left [...] BID per stroke neruo and cards recs --PT/OT/FINANCIAL INSTITUTION PRESIDENT evaluations- back to extended care Choledocholithiasis --CT [...] the OR 06/[address] 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 A positive result may indicate colonization with MRSA and must be correlated clinically. KIMANI AURIS PCR - Swab, Axilla Right, Axilla Left and Groin [[id number]] Collected: 06/07/25 0845 Lab Status: Final result Specimen: Swab from Axilla Right, Axilla Left and Groin Updated: 06/08/25 1715 KIMANI AURIS PCR (MITUL) Not Detected Blood Culture - Blood, Wrist, Left [[id number]] (Normal) Collected: 06/07/25 0603 Lab Status: Final result Specimen: Blood from Wrist, Left Updated: 06/12/25 0730 Blood Culture No growth at 5 days Narrative: Aerobic Bottle Only Less than seven (7) mL's of blood was collected. Insufficient quantity may yield false negative results. Blood Culture - Blood, Wrist, Left [[id number]] (Normal) Collected: 06/07/25 0601 Lab Status: Final [...] MD 06/11/2025 7:44 AM EDT Workstation ID: [id number] FL ERCP pancreatic and biliary ducts Result Date: 06/08/2025 FL ERCP PANCREATIC AND BILIARY DUCTS Date of Exam: 06/08/2025 10:49 AM EDT Indication: ENDOSCOPIC RETROGRADE CHOLANGIOPANCREATOGRAPHY. Comparison: None available. Technique: A series of radiographic digital spot films were obtained in conjunction with an endoscopic catheterization of the biliary andpancreatic ductal system, performed by the tire manager. Fluoroscopic Time: 5 minutes 57 seconds Number of Images: 10 Findings: Fluoroscopy demonstrates filling of the bile ducts. Impression: Fluoroscopy demonstrates filling of the bile ducts. Please see procedure report for full findings. Electronically Signed: Migue Mcfarlane MD 06/08/2025 3:48 PM EDT Workstation ID: [id number] Duplex Carotid Ultrasound CAR Result Date: 06/07/2025 Right internal carotid artery demonstrates a less than 50% stenosis. Right vertebral artery was notvisualized. Left internal carotid artery demonstrates a less than 50% stenosis. Antegrade left vertebral flow. FINANCIAL INSTITUTION PRESIDENT FEES - Fiberoptic Endo Eval Swallow Result [...] hydronephrosis. No dilated bowel loops within the fbxdo-xa-vtjf. No free fluid in the abdomen. No [...] MD 06/07/2025 10:26 AM EDT Workstation ID: [id number] MRI Brain Without Contrast Result Date: 06/07/2025 [...] MD 06/07/2025 10:22 AM EDT Workstation ID: [id number] CT Outside Films Result Date: 06/06/2025 This [...] 5 MG tablet tablet Commonly known as: ELIDAISHA What changed: medication strength how much to [...] Daily, 30-600mg 1 tablet twice daily between 4735-6038 loperamide 2 MG capsule Commonly known as: IMODIUM 2 mg, Oral, 4 Times Daily PRN midodrine 5 MG tablet Commonly known as: PROAMATINE 10 mg, Oral, 3 Times Weekly, Mon, Wed, Sat between 8002-1386 montelukast 10 MG tablet Commonly known as: [...] as: PROMETHAZINE-DM No Known Allergies Discharge Disposition: [facility] Facility (DC - External) Diet: Hospital: Diet [...] minutes on this discharge activity which included: scqv-qk-qowgtggjtjgmr with the patient, reviewing the data in [...] from the original note were not included. [facility] Medicine Services DISCHARGE SUMMARY Patient Name: Alexa [...] was recommended for continued therapy at a senior living facility. 2. Sepsis, Community-Acquired Pneumonia, and Streptococcus [...] and coordination was madefor outpatient dialysis at [facility]. 6. Atrial Fibrillation Valvular Heart [...] ADLs, and was recommended [facility] discharge [facility] for continued rehabilitation and [...] MD 06/11/2025 7:44 AM EDT Workstation ID: [id number] FL ERCP pancreatic and biliary ducts Result Date: 06/08/2025 Impression: Impression: Fluoroscopy demonstrates filling of the bile ducts. Please see procedure report for full findings. 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 Acute Care - Occupational Therapy Discharge [facility] Patient Name: Alexa Fuentes : 1950 Today's [...] 1449 General Information Patient Profile Reviewed yes - Prior Level of Function independent:;feeding;grooming;max assist:;dependent:;bed mobility;transfer;w/c [...] Number of Stairs, Within Home, Primary none -[facility] Name 06/07/25 1449 Cognition Orientation Status (Cognition) oriented x 3 -[facility] Name 06/07/25 144 Safety Issues/Impairments Affecting Functional Mobility Safety Issues Affecting Function (Mobility) awareness of need for assistance;insight into deficits/self-awareness;problem-solving;judgment - User Alvarez (r) = Recorded By, (t) = Taken By, (c) = Cosigned By Initials Name Provider Type Licha Carlton, OT Occupational Therapist Mobility/ADL's [facility] Name 06/07/25 145 Bed Mobility Bed Mobility scooting/bridging - Scooting/Bridging [place] (Bed Mobility) dependent (less than 25% patient effort);2 person assist;verbal cues - Bed Mobility, Safety Issues decreased use of arms for pushing/pulling;decreased use of legs for bridging/pushing - Assistive Device (Bed Mobility) repositioning sheet;other (see comments) bed in trendelenburg -[facility] Name 06/07/25 145 Transfers Comment, (Transfers) Pt is bedbound at baseline & relies on mechanical lift & assist from facility staff for transfers to/from w/c. Pt awaiting echo & carotid duplex but educated on importance of OOB activity & sitting UIC. - Row Name 06/07/25 145 Activities of Daily Living BADL Assessment/Intervention grooming;feeding -[facility] Name 06/07/25 145 Hygiene Care Oral Care teeth brushed - regular toothbrush -[facility] Name 06/07/25 145 Grooming Assessment/Training [place] Level (Grooming) oral care regimen;dependent (less than [...] to reach mouth w/ B hands, B lever tender strength 5/5. - User Alvarez (r) = Recorded By, (t) = Taken By, (c) = Cosigned By Initials Name Provider Type Licha Mercado OT Occupational Therapist Obj/Interventions [facility] 06/07/25 145 Sensory Assessment (Somatosensory) Sensory Assessment (Somatosensory) UE sensation intact -[facility] 06/07/25 145 Vision Assessment/Intervention Visual Impairment/Limitations WFL -[facility] 06/07/25 145 Range of Motion Comprehensive General Range of Motion upper extremity range of motion deficits identified - Comment, General Range of Motion R shoulder ROM limited from remote humerus fx (pt/son reports 7 years ago), L trigger finger (pt able to release himself) -[facility] 06/07/25 145 Strength Comprehensive (MMT) General Manual Muscle Testing (MMT) Assessment upper extremity strength deficits identified - Comment, General Manual Muscle Testing (MMT) Assessment R shoulder limited assessment d/t pain, otherwise BUE grossly 5/5 -[facility] 06/07/251455 Motor Skills Motor Skills coordination - Coordination WFL;bilateral;upper extremity;finger to nose -[facility] 06/07/251455 Balance Comment, Balance Pt declined any OOB activity - User Alvarez (r) = Recorded By, (t) = Taken By, (c) = Cosigned By Initials Name Provider Type Licha Carlton OT Occupational Therapist Goals/Plan No documentation. Clinical Impression [facility] 06/07/25 988 Plan of Care Review Plan of Care Reviewed With patient;son - Outcome Evaluation Pt at baseline functional status w/ ADL independence. No further skilled IPOT services warranted at this time. Rec continued activity as tolerated w/ nursing staff, return to [facility] at d/c. -[facility] 06/07/25 0500 Therapy Assessment/Plan (OT) Criteria for Skilled Therapeutic Interventions Met (OT) does not meet criteria for skilled intervention - Therapy Frequency (OT) evaluation only -[facility] 06/07/25 739 Therapy Plan Review/Discharge Plan (OT) Anticipated Discharge Disposition (OT) extended care facility -[facility] 06/07/25 376 Vital Signs O2 Delivery Pre Treatment room air - O2 Delivery Intra Treatment room air - O2 Delivery Post Treatment room air - Pre Patient Position Supine - Intra Patient Position Supine - Post Patient Position Supine -[facility] 06/07/25 9842 Positioning and Restraints Pre-Treatment Position in bed - Post Treatment Position bed - In Bed notified nsg;supine;call light within reach;encouraged to call for assist;exit alarm on;siderails up x3;with family/caregiver - User Alvarez (r) = Recorded By, (t) = Taken By, (c) = Cosigned By Initials Name Provider Type Licha Mercado OT Occupational Therapist Outcome Measures Row Name 06/07/25 950 How much help from another is currently needed... Putting on and taking off regular lower body clothing? 1 -MC Bathing (including washing, rinsing, and drying) 2 -MC Toileting (which includes using toilet bed yeh or urinal) 1 -MC Putting on and taking off regular upper body clothing 2 -MC Taking care of personal grooming (such as brushing teeth) 3 -MC Eating meals 3 -MC AM-PAC 6 Clicks Score (OT) 12 - [...] walk in hospital room? 1 -AL 1 -LH AM-PAC 6 Clicks Score (PT) 8 -AL 8 - Row Name 06/07/25 4951 Modified Culebra Scale Pre-Stroke Modified Culebra Scale 6 - Unable to determine (UTD) from the medical record documentation - Modified Culebra Scale 5 - Severe disability. Bedridden, incontinent, and requiring constant nursingcare and attention. - Row Name 06/07/25 2772 Functional Assessment Outcome Measure Options AM-PAC 6 Clicks Daily Activity (OT);Modified Santo - User Alvarez (r) = Recorded By, (t) = Taken By, (c) = Cosigned By Initials Name Provider Type Licha Mercado, SEVERO Occupational Therapist AL Ascencio, [place], HIEU Registered Nurse Linda Hodges RN Registered Nurse Occupational Therapy Education Title: PT OT FINANCIAL INSTITUTION PRESIDENT Therapies (In Progress) Topic: Occupational Therapy (In [...] Time Calculation- OT OT Start Time 1314 - -- -- OT Received On 06/07/25 - -- -- Untimed Charges OT Eval/Re-eval Minutes 47 - -- -- Total Minutes Untimed Charges Total Minutes 47 - -- -- Total Minutes 47 - -- -- OT KX Modifier Exception criteria met to exceed therapy cap -- Apply KX Modifier - Apply KX Modifier - User Alvarez (r) = Recorded By, (t) = Taken By, (c) = Cosigned By Initials Name Provider Type Licha Mercado OT Occupational Therapist Therapy Charges for Today Code Description Service Date Service Provider Modifiers Qty [id number] OT EVAL MOD COMPLEXITY 4 06/07/2025 Licha Carlton OT GO, KX 1 OT Discharge Summary Anticipated Discharge Disposition (OT): extended care facility Licha Carlton OT 06/07/2025 documented in this encounter Discharge Instructions * Attachments The following attachments cannot be sent through Care Everywhere. * Albuterol; Budesonide Metered Dose Inhaler (MDI) (Belizean) * Aspirin Tablets (Belizean) * Amlodipine Tablets (Belizean) * Oxycodone; Acetaminophen Tablets (Belizean) * Polyethylene Glycol Powder for Solution (Belizean) * Vancomycin Injection (Belizean) * Ischemic Stroke Ssvo-lr-Ftnz (Belizean) * Warning Signs of a Stroke (Belizean) documented in this encounter Medications at Time [...] 1 tablet by mouth Every Night. B Czfzhod-S-Yebis Acid (CHRISTINE-CLAUDE PO) Take 1 tablet by [...] Day. 30-600mg 1 tablet twice daily between 7903-5139 loperamide (IMODIUM) 2 MG capsule Take 1 [...] Times a Week. Mon, Wed, Sat between 5436-0293 montelukast (SINGULAIR) 10 MG tablet Take 1 [...] up to 3 days. 18 tablet 06/14/2025 5 vancomycin 1,000 mg in sodium chloride 0.9 [...] history of ESRD on HD MWF at [facility] last dialyzed yesterday. Patient was transferred from [place] [facility] due to lethargy, confusion, weakness, initially transferred to [facility]. Subjective Interval History: Plan for HD in [...] Aortic stenosis 1. ESRD: On HD at [facility] 2. Atrial fibrillation on Eliquis 3. Hypertension 4. Anemia of chronic kidney disease 5. Strep bacteremia: On vancomycin 6. COPD. Off supp o2 7. Ischemic occipital stroke. On AC with full dose eliquis. 8. Mild hyperkalemia: Management with HD . Plan: HD per [facility] estella. Need abx post HD x 5 for doses . Renal diet Hold JONATAN High risk complex patient with multiple medical problems. Beau Nieves MD 06/14/25 15:04 EDT * Pantera Dc MD - 06/14/2025 7:16 AM EDT Images from the original note were not included. INFECTIOUS DISEASE Progress Note Alexa Fuentes 1950 [id number] Date of Consult: 06/08/2025 Admission Date: 06/06/2025 [...] Streptococcus pneumoniae bacteremia. He was transferred from [facility] to [facility] on 06/06 for concerns for stroke along with altered mental status. He was noted at [facility] to be more lethargic and confused and was transferred to [facility]. His CT scanat [facility] showed acute/subacute left occipital lobe ischemia and [...] was started on IV antibiotics and transferredto [facility] on 06/06. Since arrival, the patient has [...] his antibiotic therapy. His blood cultures from [facility] became positive for GPC in pairs in [...] Surgeon: Charles Guerrero MD; Location: [facility] OR; Service: General; Laterality: N/A; COLONOSCOPY ERCP N/A 06/08/2025 Procedure: ENDOSCOPIC RETROGRADE CHOLANGIOPANCREATOGRAPHY; Surgeon: Kishore Foote MD; Location: [facility]; Service: Gastroenterology; Laterality: N/A; KNEE SURGERY [...] BPA Driven Protocol, , Not Applicable, PRN, Charlse Guerrero MD simethicone (MYLICON) chewable tablet 80 [...] 40 mL, Intravenous, RINN, Charles Guerrero MD sodium chloride nasal spray 2 spray, 2 spray, Each Nare, Q30 Min PRN, Letz, Laure, FREIGHT SERVICE INSPECTOR, 2 spray at 06/13/25 0415 vancomycin (dosing per levels), , Not Applicable, Daily, Veena Liu RP Antibiotics: Anti-Infectives (From admission, onward) Ordered Dose/Rate Route Frequency Start Stop 06/12/25 0739 DAPTOmycin (CUBICIN) 950 mg in sodium chloride 0.9 % 50 mL IVPB Status: Discontinued Ordering Provider: Ivonne Ralph MD 9 mg/kg ?? 106 kg (Adjusted) 100 mL/hr over 30 Minutes Intravenous Every Wednesday06/15/25 1600 06/12/25 0908 06/12/25 0958 vancomycin (dosing per levels) Ordering Provider: Veena Liu [facility] Not Applicable Daily 06/14/25 0906/24/25 0859 06/12/25 0739 DAPTOmycin (CUBICIN) 650 mg in sodium chloride 0.9 % 50 mL IVPB Status: Discontinued Ordering Provider: Ivonne Ralph MD 6 mg/kg ?? 106 kg (Adjusted) 100 mL/hr over 30 Minutes Intravenous Once per day on Wednesday06/13/25 1600 06/12/25 0908 06/12/25 0910 vancomycin (dosing per levels) Status: Discontinued Ordering Provider: Anjana Cali PharmD Not Applicable Daily 06/13/25 0906/12/25 0958 [...] MRSA Screen, PCR (Inpatient) - Swab, Nares [[id number]] (Abnormal) Collected: 06/08/25 1905 Lab Status: Final result Specimen: Swab from Nares Updated: 06/08/25 215 MRSA PCR Positive Narrative: The negative predictive value of this diagnostic test is high and should only be used to consider de-escalating anti-MRSA therapy. A positive result may indicate colonization with MRSA and must be correlated clinically. KIMANI AURIS PCR - Swab, Axilla Right, Axilla Left and Groin [[id number]] Collected: 06/07/25 0845 Lab Status: Final result Specimen: Swab from Axilla Right, Axilla Left and Groin Updated: 06/08/25 1715 KIMANI AURIS PCR ([facility]) Not Detected Blood Culture - Blood, Wrist, Left [[id number]] (Normal) Collected: 06/07/25 0603 Lab Status: Final result Specimen: Blood from Wrist, Left Updated: 06/12/25 0730 Blood Culture No growth at 5 days Narrative: Aerobic Bottle Only Less than seven (7) mL's of blood was collected. Insufficient quantity may yield false negative results. Blood Culture - Blood, Wrist, Left [[id number]] (Normal) Collected: 06/07/25 0601 Lab Status: Final result Specimen: Blood from Wrist, Left Updated: 06/12/25 0730 Blood Culture No growth at 5 days Narrative: Aerobic Bottle Only Less than seven (7) mL's of blood was collected. Insufficient quantity may yield false negative results. Radiology: Imaging Results (Last 72 Hours) Procedure Component Value Units Date/Time CT Soft Tissue Neck Without Contrast [[id number]] Collected: 06/11/25 0737 Updated: 06/11/25 0747 Narrative: [...] MD 06/11/2025 7:44 AM EDT Workstation ID: [id number] I read his radiographic images. Impression: Pneumococcal [...] MD 06/14/2025 07:16 EDT * Michelle Howard, MANOJ - 06/13/2025 12:28 PM EDT Patient Name: Alexa Fuentes Date of : 1950 Admission date: 06/06/2025 Reason for Encounter: Pressure Injury Stg 2+ [facility] Clinical Nutrition Assessment Subjective Subjective Information [...] Surgeon: Charles Guerrero MD; Location: [facility] OR; Service: General; Laterality: N/A; COLONOSCOPY ERCP N/A 06/08/2025 Procedure: ENDOSCOPIC RETROGRADE CHOLANGIOPANCREATOGRAPHY; Surgeon: Kishore Foote MD; Location: [facility]; Service: Gastroenterology; Laterality: N/A; KNEE SURGERY Right Current Problems Admission Diagnosis: Occipital stroke [I63.9] Problem List: Occipital stroke Choledocholithiasis Acute respiratory failure with hypoxia CAP (community acquired pneumonia) ESRD (end stage renal disease) Atrial fibrillation Aortic stenosis Applicable Nutrition Hx FINANCIAL INSTITUTION PRESIDENT Recommendation (06/07) regular textures, thin liquids Anthropometrics [...] Movement: 06/07/25 (06/12/25 0000) Stool Consistency: loose (06/07/251999) Edema Edema: generalized (06/13/25 0243) Generalized Edema: 1+ (Trace) (06/13/25 0243) Intake & Output (last 3 days) 06/10 0706/13 0706/14 07 [address] 472 I.V. (mL/kg) 540 (4) IV Piggyback 250 Total Intake(mL/kg) 1012 (7.6) 250 (1.9) Urine (mL/kg/hr) 100 (0) 200 (0.1) Dialysis 2000 Total Output [phone] Net -100 +812 -1750 Urine Unmeasured Occurrence [...] 06/13/25 12:28 EDT Cosigned by Madisyn Adler MS,MANOJ,DUSTY at 06/13/2025 1:41 PM EDT Associated attestation - Madisyn Adler MS, RD,DUSTY - 06/13/2025 1:41 PM EDT I have reviewed this documentation and agree. * Beau Nieves MD - 06/13/2025 10:17 AM EDT LOS: 6 days Patient Care Team: Jeffrey Sun MD as PCP - General (Family Medicine) Chief Complaint: 74-year-old with history of ESRD on HD MWF at [facility] last dialyzed yesterday. Patient was transferred from [place] [facility] due to lethargy, confusion, weakness, initially transferred to [facility]. Subjective Interval History: Seen on HD tolerating [...] Aortic stenosis 1. ESRD: On HD at [facility] 2. Atrial fibrillation on Eliquis 3. Hypertension 4. Anemia of chronic kidney disease 5. Hyperlipidemia 6. COPD. Off supp o2 7. Ischemic occipital stroke. On AC with full dose eliquis. 8. Mild hyperkalemia: Management with HD . Plan: HD per M[facility]. Renal diet Hold JONATAN High risk complex patient with multiple medical problems. Beau Nieves MD 06/13/25 10:17 EDT * Charles Guerrero MD - 06/13/2025 8:27 AM EDT Patient Name: Alexa Fuentes Date of : 1950 [id number] Surgery Progress Note Date of visit: 06/13/2025 [...] INFECTIOUS DISEASE Progress Note Alexa Fuentes 1950 [id number] Date of Consult: 06/08/2025 Admission Date: 06/06/2025 [...] Streptococcus pneumoniae bacteremia. He was transferred from [facility] to [facility] on 06/06 for concerns for stroke along with altered mental status. He was noted at [facility] to be more lethargic and confused and was transferred to [facility]. His CT scanat [facility] showed acute/subacute left occipital lobe ischemia and [...] was started on IV antibiotics and transferredto [facility] on 06/06. Since arrival, the patient has [...] his antibiotic therapy. His blood cultures from [facility] became positive for GPC in pairs in [...] Surgeon: Charles Guerrero MD; Location: [facility] OR; Service: General; Laterality: N/A; COLONOSCOPY ERCP N/A 06/08/2025 Procedure: ENDOSCOPIC RETROGRADE CHOLANGIOPANCREATOGRAPHY; Surgeon: Kishore Foote MD; Location: [facility]; Service: Gastroenterology; Laterality: N/A; KNEE SURGERY [...] levels), , Not Applicable, Daily, Veena Liu, RP vancomycin (VANCOCIN) 1,000 mg in sodium chloride 0.9 % 250 mL IVPB-VTB, 1,000 mg, Intravenous, Once, Veena Liu [facility] Antibiotics: Anti-Infectives (From admission, onward) Ordered Dose/Rate [...] over 60 Minutes Intravenous Once 06/13/25 0900 06/12/25 0958 vancomycin 2250 mg/500 mL 0.9% [...] mL MBP Status: Discontinued Ordering Provider: Pantera cD MD 2,000 mg 200 mL/hr over 30 [...] MRSA Screen, PCR (Inpatient) - Swab, Nares [[id number]] (Abnormal) Collected: 06/08/25 1905 Lab Status: Final result Specimen: Swab from Nares Updated: 06/08/25 2152 MRSA PCR Positive Narrative: The negative predictive value of this diagnostic test is high and should only be used to consider de-escalating anti-MRSA therapy. A positive result may indicate colonization with MRSA and must be correlated clinically. KIMANI AURIS PCR - Swab, Axilla Right, Axilla Left and Groin [[id number]] Collected: 06/07/25 0845 Lab Status: Final result Specimen: Swab from Axilla Right, Axilla Left and Groin Updated: 06/08/25 1715 KIMANI AURIS PCR ([facility]) Not Detected Blood Culture - Blood, Wrist, Left [[id number]] (Normal) Collected: 06/07/25 0603 Lab Status: Final result Specimen: Blood from Wrist, Left Updated: 06/12/25 0730 Blood Culture No growth at 5 days Narrative: Aerobic Bottle Only Less than seven (7) mL's of blood was collected. Insufficient quantity may yield false negative results. Blood Culture - Blood, Wrist, Left [[id number]] (Normal) Collected: 06/07/25 0601 Lab Status: Final result Specimen: Blood from Wrist, Left Updated: 06/12/25 0730 Blood Culture No growth at 5 days Narrative: Aerobic Bottle Only Less than seven (7) mL's of blood was collected. Insufficient quantity may yield false negative results. Radiology: Imaging Results (Last 72 Hours) Procedure Component Value Units Date/Time CT Soft Tissue Neck Without Contrast [[id number]] Collected: 06/11/25 0737 Updated: 06/11/25 0747 Narrative: [...] MD 06/11/2025 7:44 AM EDT Workstation ID: [id number] I read his radiographic images. Impression: Pneumococcal [...] history of ESRD on HD MWF at [facility] last dialyzed yesterday. Patient was [place] [facility] [place] [facility] due to lethargy, confusion, weakness, initially transferred to [facility]. Subjective Interval History: HD yesterday tolerated treatment [...] Atrial fibrillation 1. ESRD: On HD at [facility] 2. Atrial fibrillation on Eliquis 3. Hypertension 4. Anemia of chronic kidney disease 5. Hyperlipidemia 6. COPD. 7. Ischemic occipital stroke. Plan: HD per [facility] estella. Renal diet Fluid restriction less than 1500 mL/day. Start home medications. High risk complex patient with multiple medical problems. Beau Nieves MD 06/12/25 13:43 EDT * Ivonne Ralph MD - 06/12/2025 12:30 PM EDT Images from the original note were not included. [facility] Medicine Services PROGRESS NOTE Patient Name: Alexa [...] LACTATE -- -- -- 0.9 -- Lab 06/11/2580906/10/25 15206/09/25 1426 06/08/25 0806/07/25 0105 06/07/25 0057 SODIUM 135* 134* -- [...] -- -- -- -- 0.534 Lab 06/11/25 0806/10/25 15206/08/25 0848 06/07/25 0057 TOTAL PROTEIN 6.1 5.8* [...] MRSA Screen, PCR (Inpatient) - Swab, Nares [[id number]] (Abnormal) Collected: 06/08/251904 Lab Status: Final result [...] MD 06/11/2025 7:44 AM EDT Workstation ID: [id number] Results for orders placed during the hospital [...] and ESRD on HD who presents from [facility] due to AMS and concern for stroke. In addition he was found to have pneumonia and possible choledocholithiasis. Stroke team accepted in transfer to [facility]. Acute hypoxic respiratory failure Pneumonia Strep pneumo [...] BID per stroke neruo and cards recs --PT/OT/FINANCIAL INSTITUTION PRESIDENT evaluations- back to extended care Choledocholithiasis --CT [...] Ivonne Ralph MD 06/12/25 * Veena Liu, [facility] - 06/12/2025 10:00 AM EDT Images from [...] vancomycin (dosing per levels) Ordering Provider: Anjana Cali, PharmD Not Applicable Daily 06/13/25 0906/23/25 0859 06/12/25 0908 Pharmacy to dose vancomycin [...] & Output (last 3 days) 06/09 0706/10 0706/13 07 I.V. (mL/kg) 600 (4.5) Total Intake(mL/kg) 600 (4.5) Urine (mL/kg/hr) 100 (0) Total Output 100 Net +600 -100 Urine Unmeasured Occurrence 1 x Microbiology Microbiology Results (last 10 days) Procedure Component Value - Date/Time MRSA Screen, PCR (Inpatient) - Swab, Nares [[id number]] (Abnormal) Collected: 06/08/25 1905 Lab Status: Final result Specimen: Swab from Nares Updated: 06/08/25 215 MRSA PCR Positive Narrative: The negative predictive value of this diagnostic test is high and should only be used to consider de-escalating anti-MRSA therapy. A positive result may indicate colonization with MRSA and must be correlated clinically. KIMANI AURIS PCR - Swab, Axilla Right, Axilla Left and Groin [[id number]] Collected: 06/07/25 0845 Lab Status: Final result Specimen: Swab from Axilla Right, Axilla Left and Groin Updated: 06/08/25 1715 KIMANI AURIS PCR ([facility]) Not Detected Blood Culture - Blood, Wrist, Left [[id number]] (Normal) Collected: 06/07/25 0603 Lab Status: Final result Specimen: Blood from Wrist, Left Updated: 06/12/25 0730 Blood Culture No growth at 5 days Narrative: Aerobic Bottle Only Less than seven (7) mL's of blood was collected. Insufficient quantity may yield false negative results. Blood Culture - Blood, Wrist, Left [[id number]] (Normal) Collected: 06/07/25 0601 Lab Status: Final [...] 06/12/2025 8:48 AM EDT Patient Name: Alexa Fuentse Date of : 1950 [id number] Surgery Progress Note Date of visit: 06/12/2025 [...] INFECTIOUS DISEASE Progress Note Alexa Fuentes 1950 [id number] Date of Consult: 06/08/2025 Admission Date: 06/06/2025 [...] Streptococcus pneumoniae bacteremia. He was transferred from [facility] to [facility] on 06/06 for concerns for stroke along with altered mental status. He was noted at [facility] to be more lethargic and confused and was transferred to [facility]. His CT scanat [facility] showed acute/subacute left occipital lobe ischemia and [...] was started on IV antibiotics and transferredto [facility] on 06/06. Since arrival, the patient has [...] his antibiotic therapy. His blood cultures from [facility] became positive for GPC in pairs in [...] Surgeon: Charles Guerrero MD; Location: [facility]; Service: General; Laterality: N/A; COLONOSCOPY ERCP N/A 06/08/2025 Procedure: ENDOSCOPIC RETROGRADE CHOLANGIOPANCREATOGRAPHY; Surgeon: Kishore Foote MD; Location: [facility]; Service: Gastroenterology; Laterality: N/A; KNEE SURGERY [...] BID, Charles Guerrero MD, 200 mg at 243 apixaban (ELIQUIS) tablet 5 mg, 5 mg, Oral, Q12H, Ivonne Ralph MD, 5 mg at 06/11/25 2243 aspirin chewable tablet 81 mg, 81 mg, Oral, Daily, 81 mg at 06/10/25 0858 OR aspirin suppository 300 mg, 300 mg, Rectal, Daily, Charles Guerrero MD atorvastatin (LIPITOR) tablet 80 mg, 80 mg, Oral, Nightly, Charles Guerrero MD, 80 mg at 06/11/25 2243 sennosides-docusate (PERICOLACE) 8.6-50 MG per tablet 2 [...] at 06/11/25 0613, 2,000 mg at 06/11/25 06 DAPTOmycin (CUBICIN) 650 mg in sodium chloride 0.9 % 50 mL IVPB, 6 mg/kg (Adjusted), Intravenous, Once per day on Wednesday, Pura Cross, [facility], Last Rate: 100 mL/hr at 06/11/253, 650 mg at 06/11/25 2243 guaiFENesin (MUCINEX) [...] % infusion 40 mL, 40 mL, Intravenous, PRGayla, Charles Guerrero MD Antibiotics: Anti-Infectives (From admission, [...] MRSA Screen, PCR (Inpatient) - Swab, Nares [[id number]] (Abnormal) Collected: 06/08/25 190 Lab Status: Final result Specimen: Swab from Nares Updated: 06/08/25 215 MRSA PCR Positive Narrative: The negative predictive value of this diagnostic test is high and should only be used to consider de-escalating anti-MRSA therapy. A positive result may indicate colonization with MRSA and must be correlated clinically. KIMANI AURIS PCR - Swab, Axilla Right, Axilla Left and Groin [[id number]] Collected: 06/07/25 0845 Lab Status: Final result Specimen: Swab from Axilla Right, Axilla Left and Groin Updated: 06/08/25 1715 KIMANI AURIS PCR ([facility]) Not Detected Blood Culture - Blood, Wrist, Left [[id number]] (Normal) Collected: 06/07/25 0603 Lab Status: Preliminary result Specimen: Blood from Wrist, Left Updated: 06/11/25 0730 Blood Culture No growth at 4 days Narrative: Aerobic Bottle Only Less than seven (7) mL's of blood was collected. Insufficient quantity may yield false negative results. Blood Culture - Blood, Wrist, Left [[id number]] (Normal) Collected: 06/07/25 0601 Lab Status: Preliminary result Specimen: Blood from Wrist, Left Updated: 06/11/25729 Blood Culture No growth at 4 days Narrative: Aerobic Bottle Only Less than seven (7) mL's of blood was collected. Insufficient quantity may yield false negative results. Radiology: Imaging Results (Last 72 Hours) Procedure Component Value Units Date/Time CT Soft Tissue Neck Without Contrast [[id number]] Collected: 06/11/25736 Updated: 06/11/25746 Narrative: CT SOFT TISSUE NECK WO CONTRAST [...] MD 06/11/2025 7:44 AM EDT Workstation ID: [id number] I read his radiographic images. Impression: Pneumococcal [...] from the original note were not included. [facility] Medicine Services PROGRESS NOTE Patient Name: Alexa [...] -- -- -- 0.9 -- Lab 06/11/25 0806/10/25 15206/09/25 1426 06/08/25 0806/07/25 0105 06/07/25 0057 SODIUM 135* 134* -- [...] -- -- -- -- 0.534 Lab 06/11/25 0806/10/25 15206/08/25 0848 06/07/25 0057 TOTAL PROTEIN 6.1 5.8* [...] MRSA Screen, PCR (Inpatient) - Swab, Nares [[id number]] (Abnormal) Collected: 06/08/25 190 Lab Status: Final result Specimen: Swab from [...] MD 06/11/2025 7:44 AM EDT Workstation ID: [id number] Results for orders placed during the hospital [...] and ESRD on HD who presents from [facility] due to AMS and concern for stroke. In addition he was found to have pneumonia and possible choledocholithiasis. Stroke team accepted in transfer to [facility]. Acute CVA, left occipital lobe --CT head [...] BID per stroke neruo and cards recs --PT/OT/FINANCIAL INSTITUTION PRESIDENT evaluations- extended care Choledocholithiasis --CT A/P at [...] With: Patient Ivonne Ralph MD 06/11/25 * Casey Aurora E, FREIGHT SERVICE INSPECTOR - 06/11/2025 2:32 PM EDT Palliative Care [...] 16 Ht 193 cm (75.98 ) Wt 134kg (295 lb 6.7 oz) SpO2 95% BMI [...] respirations regular, even and unlabored; RR 16-18 on exam, 3.5LNC Heart: RRR, normal S1 and S2, [...] Date/Time CT Soft Tissue Neck Without Contrast [[id number]] Collected: 06/11/25736 Updated: 06/11/25746 Narrative: CT SOFT TISSUE NECK WO CONTRAST [...] MD 06/11/2025 7:44 AM EDT Workstation ID: [id number] [place] ERCP pancreatic and biliary ducts [[id number]] Collected: 06/08/25 1531 Updated: 06/08/25 1552 Narrative: [place] ERCP PANCREATIC AND BILIARY DUCTS Date of Exam: 06/08/2025 10:49 AM EDT Indication: ENDOSCOPIC RETROGRADE CHOLANGIOPANCREATOGRAPHY. Comparison: None available. Technique: A series of radiographic digital spot films were obtained in conjunction with an endoscopic catheterization of the biliary and pancreatic ductal system, performed by the tire manager. Fluoroscopic Time: 5 minutes 57 seconds Number of Images: 10 Findings: Fluoroscopy demonstrates filling of the bile ducts. Impression: Impression: Fluoroscopy demonstrates filling of the bile ducts. Please see procedure report for full findings. Electronically Signed: Migue Mcfarlane MD 06/08/2025 3:48 PM EDT Workstation ID: [id number] Lab 06/07/25 0105 HEMOGLOBIN A1C 4.9 Diagnostics: Reviewed [...] history of ESRD on HD MWF at [facility] last dialyzed yesterday. Patient was [facility] [place] [facility] due to lethargy, confusion, weakness, initially transferred to [facility]. Subjective Interval History: Patient seen on dialysis [...] Atrial fibrillation 1. ESRD: On HD at [facility] 2. Atrial fibrillation on Eliquis 3. [...] Name: Alexa Fuentes Date of : 1950 [id number] Surgery Progress Note Date of visit: 06/11/2025 [...] Guerrero MD 06/11/2025 08:23 EDT * Michelle Howard RD - 06/11/2025 8:14 AM EDT Nutrition Services Patient Name: Alexa Fuentes Date of : 1950 Admit Date: 06/06/2025 Pt identified as NPO/Clear Liquid Diet >/= 72 hrs. Advance diet as medically appropriate. RD monitoring for diet advancement. Please consult RD if nutrition support is indicated. Electronically signed by: Michelle Howard, Registration Eligible 06/11/25 08:14 EDT Cosigned by Madisyn Adler MS,RD,LD at 06/11/2025 8:51 AM EDT Associated attestation - Madisyn Adler MS,RD,LD - 06/11/2025 8:51 AM EDT I have reviewed this documentation and agree. * Pantera Dc MD - 06/11/2025 7:23 AM EDT Images from the original note were not included. INFECTIOUS DISEASE Progress Note Alexa Fuentes 1950 [id number] Date of Consult: 06/08/2025 Admission Date: 06/06/2025 [...] Streptococcus pneumoniae bacteremia. He was transferred from [facility] to [facility] on 06/06 for concerns for stroke along with altered mental status. [facility] to be more [facility]argic and confused and was transferred to [facility]. His CT scanat [facility] showed acute/subacute left occipital lobe ischemia and [...] was started on IV antibiotics and transferredto [facility] on 06/06. Since arrival, the patient has [...] his antibiotic therapy. His blood cultures from [facility] became positive for GPC in pairs in [...] Charles Guerrero MD, 80 mg at 06/10/25 222 sennosides-docusate (PERICOLACE) 8.6-50 MG per tablet 2 [...] at 06/11/25 0613, 2,000 mg at 06/11/25 06 guaiFENesin (MUCINEX) 12 hr tablet 600 mg, [...] Q12H, Charles Guerrero MD, 10 mL at 06/10/259 sodium chloride 0.9 % flush 10 mL, [...] MRSA Screen, PCR (Inpatient) - Swab, Nares [[id number]] (Abnormal) Collected: 06/08/251904 Lab Status: Final result Specimen: Swab from Nares Updated: 06/08/252151 MRSA PCR Positive Narrative: The negative predictive value of this diagnostic test is high and should only be used to consider de-escalating anti-MRSA therapy. A positive result may indicate colonization with MRSA and must be correlated clinically. KIMANI AURIS PCR - Swab, Axilla Right, Axilla Left and Groin [[id number]] Collected: 06/07/25 0845 Lab Status: Final result Specimen: Swab from Axilla Right, Axilla Left and Groin Updated: 06/08/25 1715 KIMANI AURIS PCR (MITUL) Not Detected Blood Culture - Blood, Wrist, Left [[id number]] (Normal) Collected: 06/07/25 0603 Lab Status: Preliminary result Specimen: Blood from Wrist, Left Updated: 06/10/25 0730 Blood Culture No growth at 3 days Narrative: Aerobic Bottle Only Less than seven (7) mL's of blood was collected. Insufficient quantity may yield false negative results. Blood Culture - Blood, Wrist, Left [[id number]] (Normal) Collected: 06/07/25 0601 Lab Status: Preliminary result Specimen: Blood from Wrist, Left Updated: 06/10/25 0730 Blood Culture No growth at 3 days Narrative: Aerobic Bottle Only Less than seven (7) mL's of blood was collected. Insufficient quantity may yield false negative results. Radiology: Imaging Results (Last 72 Hours) Procedure Component Value Units Date/Time CT Soft Tissue Neck Without Contrast - In process [[id number]] Resulted: 06/10/252256 Updated: 06/10/252257 This result has not been signed. Information might be incomplete. FL ERCP pancreatic and biliary ducts [[id number]] Collected: 06/08/25 1531 Updated: 06/08/25 1552 Narrative: FL ERCP PANCREATIC AND BILIARY DUCTS Date of Exam: 06/08/2025 10:49 AM EDT Indication: ENDOSCOPIC RETROGRADE CHOLANGIOPANCREATOGRAPHY. Comparison: None available. Technique: A series of radiographic digital spot films were obtained in conjunction with an endoscopic catheterization of the biliary and pancreatic ductal system, performed by the tire manager. Fluoroscopic Time: 5 minutes 57 seconds Number of Images: 10 Findings: Fluoroscopy demonstrates filling of the bile ducts. Impression: Impression: Fluoroscopy demonstrates filling of the bile ducts. Please see procedure report for full findings. Electronically Signed: Migue Mcfarlane MD 06/08/2025 3:48 PM EDT Workstation ID: [id number] I read his radiographic images. Impression: Pneumococcal [...] history of ESRD on HD MWF at [facility] last dialyzed yesterday. Patient was [facility] [place] [facility] due to lethargy, confusion, weakness, initially transferred to [facility]. Subjective Interval History: Looking much better today. [...] Atrial fibrillation 1. ESRD: On HD at [facility]. 2. Atrial fibrillation on Eliquis 3. [...] from the original note were not included. [facility] Medicine Services PROGRESS NOTE Patient Name: Alexa [...] MRSA Screen, PCR (Inpatient) - Swab, Nares [[id number]] (Abnormal) Collected: 06/08/251904 Lab Status: Final result [...] biliary andpancreatic ductal system, performed by the tire manager. Fluoroscopic Time: 5 minutes 57 seconds Number of Images: 10 Findings: Fluoroscopy demonstrates filling of the bile ducts. Impression: Impression: Fluoroscopy demonstrates filling of the bile ducts. Please see procedure report for full findings. Electronically Signed: Migue Mcfarlane MD 06/08/2025 3:48 PM EDT Workstation ID: [id number] Results for orders placed during the hospital [...] and ESRD on HD who presents from [facility] due to AMS and concern for stroke. In addition he was found to have pneumonia and possible choledocholithiasis. Stroke team accepted in transfer to [facility]. Acute CVA, left occipital lobe --CT head [...] 81 mg; continue atorvastatin 80 mg nightly --PT/OT/FINANCIAL INSTITUTION PRESIDENT evaluations Choledocholithiasis --CT A/P at OSH showed [...] AM-PAC 6 Clicks Score (PT): 10 (06/10/25 6908) CODE STATUS: Code Status and Medical Interventions: [...] Name: Alexa Fuentes Date of : 1950 [id number] Surgery Progress Note Date of visit: 06/10/2025 [...] INFECTIOUS DISEASE Progress Note Alexa Fuentes 1950 [id number] Date of Consult: 06/08/2025 Admission Date: 06/06/2025 [...] Streptococcus pneumoniae bacteremia. He was transferred from [facility] to [facility] on 06/06 for concerns for stroke along with altered mental status. [facility] to be more lethargic and confused and was transferred to [facility]. His CT scanat [facility] showed acute/subacute left occipital lobe ischemia and [...] was started on IV antibiotics and transferredto [facility] on 06/06. Since arrival, the patient has [...] his antibiotic therapy. His blood cultures from [facility] became positive for GPC in pairs in [...] at 06/10/25 0517, 2,000 mg at 06/10/25 0517 guaiFENesin (MUCINEX) 12 hr tablet 600 mg, 600 mg, Oral, Q12H, Charles Guerrero MD, 600 mg at 06/09/252014 HYDROmorphone (DILAUDID) injection 0.5 mg, 0.5 mg, Intravenous, Q2H PRN AND naloxone (NARCAN) injection 0.1 mg, 0.1 mg, Intravenous, Q5 Min PRN, Charles Guerrero MD ipratropium-albuterol (DUO-NEB) nebulizer solution 3 mL, 3 mL, Nebulization, 4x Daily - RT, Charles Guerrero MD, 3 mL at 06/09/258 ipratropium-albuterol (DUO-NEB) nebulizer solution 3 mL, 3 [...] / BPA Driven Protocol, , Not Applicable, Yolanda EVERETT Lawrence A, MD simethicone (MYLICON) chewable tablet 80 mg, [...] MRSA Screen, PCR (Inpatient) - Swab, Nares [[id number]] (Abnormal) Collected: 06/08/25 1905 Lab Status: Final result Specimen: Swab from Nares Updated: 06/08/25 215 MRSA PCR Positive Narrative: The negative predictive value of this diagnostic test is high and should only be used to consider de-escalating anti-MRSA therapy. A positive result may indicate colonization with MRSA and must be correlated clinically. KIMANI AURIS PCR - Swab, Axilla Right, Axilla Left and Groin [[id number]] Collected: 06/07/25 0845 Lab Status: Final result Specimen: Swab from Axilla Right, Axilla Left and Groin Updated: 06/08/25 1715 KIMANI AURIS PCR (MITUL) Not Detected Blood Culture - Blood, Wrist, Left [[id number]] (Normal) Collected: 06/07/25 0603 Lab Status: Preliminary result Specimen: Blood from Wrist, Left Updated: 06/09/25 0730 Blood Culture No growth at 2 days Narrative: Aerobic Bottle Only Less than seven (7) mL's of blood was collected. Insufficient quantity may yield false negative results. Blood Culture - Blood, Wrist, Left [[id number]] (Normal) Collected: 06/07/25 0601 Lab Status: Preliminary result Specimen: Blood from Wrist, Left Updated: 06/09/25 0730 Blood Culture No growth at 2 days Narrative: Aerobic Bottle Only Less than seven (7) mL's of blood was collected. Insufficient quantity may yield false negative results. Radiology: Imaging Results (Last 72 Hours) Procedure Component Value Units Date/Time FL ERCP pancreatic and biliary ducts [[id number]] Collected: 06/08/25 1531 Updated: 06/08/25 1552 Narrative: FL ERCP PANCREATIC AND BILIARY DUCTS Date of Exam: 06/08/2025 10:49 AM EDT Indication: ENDOSCOPIC RETROGRADE CHOLANGIOPANCREATOGRAPHY. Comparison: None available. Technique: A series of radiographic digital spot films were obtained in conjunction with an endoscopic catheterization of the biliary and pancreatic ductal system, performed by the tire manager. Fluoroscopic Time: 5 minutes 57 seconds Number of Images: 10 Findings: Fluoroscopy demonstrates filling of the bile ducts. Impression: Impression: Fluoroscopy demonstrates filling of the bile ducts. Please see procedure report for full findings. Electronically Signed: Migue Mcfarlane MD 06/08/2025 3:48 PM EDT Workstation ID: [id number] FINANCIAL INSTITUTION PRESIDENT FEES - Fiberoptic Endo Eval Swallow [[id number]] Resulted: 06/07/251658 Updated: 06/07/251658 Narrative: This procedure was auto-finalized with no dictation required. MRI abdomen wo contrast mrcp [[id number]] Collected: 06/07/25 1008 Updated: 06/07/25 1029 Narrative: [...] hydronephrosis. No dilated bowel loops within the klelj-oj-ftrj. No free fluid in the abdomen. No [...] MD 06/07/2025 10:26 AM EDT Workstation ID: [id number] MRI Brain Without Contrast [[id number]] Collected: 06/07/25 1013 Updated: 06/07/25 1026 Narrative: [...] MD 06/07/2025 10:22 AM EDT Workstation ID: [id number] I read his radiographic images. Impression: Acute [...] PLAN/RECOMMENDATIONS: Follow blood cultures here and at [facility] Continue Rocephin 2 GM IV daily Please call [facility] laboratory to have then fax final blood [...] from the original note were not included. [facility] Medicine Services PROGRESS NOTE Patient Name: Alexa [...] MRSA Screen, PCR (Inpatient) - Swab, Nares [[id number]] (Abnormal) Collected: 06/08/251904 Lab Status: Final result [...] biliary andpancreatic ductal system, performed by the tire manager. Fluoroscopic Time: 5 minutes 57 seconds Number of Images: 10 Findings: Fluoroscopy demonstrates filling of the bile ducts. Impression: Impression: Fluoroscopy demonstrates filling of the bile ducts. Please see procedure report for full findings. Electronically Signed: Migue Mcfarlane MD 06/08/2025 3:48 PM EDT Workstation ID: [id number] Duplex Carotid Ultrasound CAR Result Date: 06/07/2025 Right internal carotid artery demonstrates a less than 50% stenosis. Right vertebral artery was notvisualized. Left internal carotid artery demonstrates a less than 50% stenosis. Antegrade left vertebral flow. FINANCIAL INSTITUTION PRESIDENT FEES - Fiberoptic Endo Eval Swallow Result [...] and ESRD on HD who presents from [facility] due to AMS and concern for stroke. In addition he was found to have pneumonia and possible choledocholithiasis. Stroke team accepted in transfer to [facility]. Acute encephalopathy- improving --Likely multifactorial due to [...] 81 mg; continue atorvastatin 80 mg nightly --PT/OT/FINANCIAL INSTITUTION PRESIDENT evaluations Choledocholithiasis --CT A/P at OSH showed [...] history of ESRD on HD MWF at [facility] last dialyzed yesterday. Patient was [place] [facility] [place] [facility] due to lethargy, confusion, weakness, initially transferred to [facility]. Subjective Interval History: Patient back from laparoscopic [...] Atrial fibrillation 1. ESRD: On HD at [facility]. 2. Atrial fibrillation on Eliquis 3. [...] INFECTIOUS DISEASE Progress Note Alexa Fuentes 1950 [id number] Date of Consult: 06/08/2025 Admission Date: 06/06/2025 [...] Streptococcus pneumoniae bacteremia. He was transferred from [facility] to [facility] on 06/06 for concerns for stroke along with altered mental status. He was noted at [facility] to be more lethargic and confused and was transferred to [facility]. His CT scanat [facility] showed acute/subacute left occipital lobe ischemia and [...] was started on IV antibiotics and transferredto [facility] on 06/06. Since arrival, the patient has [...] his antibiotic therapy. His blood cultures from [facility] became positive for GPC in pairs in [...] at 06/09/25 0520, 2,000 mg at 06/09/25 0520 guaiFENesin (MUCINEX) 12 hr tablet 600 mg, [...] , Not Applicable, PRNQamar John A, MD metroNIDAZOLE (FLAGYL) IVPB 500 [...] Not Applicable, PRQamar Shukla John A, MD Potassium Replacement - Follow Nurse / BPA Driven Protocol, , Not Applicable, PRNQamar John A, MD sodium chloride 0.9 [...] MRSA Screen, PCR (Inpatient) - Swab, Nares [[id number]] (Abnormal) Collected: 06/08/25 190 Lab Status: Final result Specimen: Swab from Nares Updated: 06/08/25 215 MRSA PCR Positive Narrative: The negative predictive value of this diagnostic test is high and should only be used to consider de-escalating anti-MRSA therapy. A positive result may indicate colonization with MRSA and must be correlated clinically. KIMANI AURIS PCR - Swab, Axilla Right, Axilla Left and Groin [[id number]] Collected: 06/07/25 0845 Lab Status: Final result Specimen: Swab from Axilla Right, Axilla Left and Groin Updated: 06/08/25 1715 KIMANI AURIS PCR (MITUL) Not Detected Blood Culture - Blood, Wrist, Left [[id number]] (Normal) Collected: 06/07/25 0603 Lab Status: Preliminary result Specimen: Blood from Wrist, Left Updated: 06/09/25 0730 Blood Culture No growth at 2 days Narrative: Aerobic Bottle Only Less than seven (7) mL's of blood was collected. Insufficient quantity may yield false negative results. Blood Culture - Blood, Wrist, Left [[id number]] (Normal) Collected: 06/07/25 0601 Lab Status: Preliminary result Specimen: Blood from Wrist, Left Updated: 06/09/25 0730 Blood Culture No growth at 2 days Narrative: Aerobic Bottle Only Less than seven (7) mL's of blood was collected. Insufficient quantity may yield false negative results. Radiology: Imaging Results (Last 72 Hours) Procedure Component Value Units Date/Time FL ERCP pancreatic and biliary ducts [[id number]] Collected: 06/08/25 1531 Updated: 06/08/25 1552 Narrative: FL ERCP PANCREATIC AND BILIARY DUCTS Date of Exam: 06/08/2025 10:49 AM EDT Indication: ENDOSCOPIC RETROGRADE CHOLANGIOPANCREATOGRAPHY. Comparison: None available. Technique: A series of radiographic digital spot films were obtained in conjunction with an endoscopic catheterization of the biliary and pancreatic ductal system, performed by the tire manager. Fluoroscopic Time: 5 minutes 57 seconds Number of Images: 10 Findings: Fluoroscopy demonstrates filling of the bile ducts. Impression: Impression: Fluoroscopy demonstrates filling of the bile ducts. Please see procedure report for full findings. Electronically Signed: Migue Mcfarlane MD 06/08/2025 3:48 PM EDT Workstation ID: [id number] FINANCIAL INSTITUTION PRESIDENT FEES - Fiberoptic Endo Eval Swallow [[id number]] Resulted: 06/07/25 165 Updated: 06/07/25 165 Narrative: This procedure was auto-finalized with no dictation required. MRI abdomen wo contrast mrcp [[id number]] Collected: 06/07/25 1008 Updated: 06/07/25 1029 Narrative: [...] hydronephrosis. No dilated bowel loops within the kfnmg-lg-ciid. No free fluid in the abdomen. No [...] MD 06/07/2025 10:26 AM EDT Workstation ID: [id number] MRI Brain Without Contrast [[id number]] Collected: 06/07/25 1013 Updated: 06/07/25 1026 Narrative: [...] MD 06/07/2025 10:22 AM EDT Workstation ID: [id number] CT Outside Films [[id number]] Resulted: 06/06/252046 Updated: 06/06/252046 Narrative: This procedure was auto-finalized with no dictation required. CT Outside Abd/Pelvis [[id number]] Resulted: 06/06/252046 Updated: 06/06/252046 Narrative: This procedure was auto-finalized with no dictation required. CT Outside Head [[id number]] Resulted: 06/06/252046 Updated: 06/06/252046 Narrative: This procedure was auto-finalized with no dictation required. CT Outside Films [[id number]] Resulted: 06/06/252046 Updated: 06/06/252046 Narrative: This procedure was auto-finalized with no dictation required. CT Outside Neck [[id number]] Resulted: 06/06/252046 Updated: 06/06/252046 Narrative: This procedure [...] PLAN/RECOMMENDATIONS: Follow blood cultures here and at [facility] Continue Rocephin 2 GM IV daily Stop Flagyl Please call [facility] laboratory to have then fax final blood [...] Dc MD 06/09/2025 07:47 EDT * Alyssa Ring RD - 06/08/2025 4:00 PM EDT Patient Name: Alexa Fuentes Date of : 1950 Admission date: 06/06/2025 Reason for Encounter: Pressure Injury Stg 2+ [facility] Clinical Nutrition Assessment Subjective Subjective Information [...] renal disease) Atrial fibrillation Applicable Nutrition Hx FINANCIAL INSTITUTION PRESIDENT Recommendation (06/07) regular textures, thin liquids Anthropometrics [...] & Output (last 3 days) 06/05 0706/06 0706/06 0706/07 0706/08 0706/09 07 P.O. 30 I.V. (mL/kg) [...] from the original note were not included. [facility] Medicine Services PROGRESS NOTE Patient Name: Alexa [...] 97.6* LACTATE -- 0.9 -- Lab 06/07/25 0057 SODIUM 136 POTASSIUM 5.0 CHLORIDE 93* CO2 27.9 ANION GAP 15.1* BUN 52.4* CREATININE 6.07* EGFR 9.0* GLUCOSE 77 CALCIUM 9.0 MAGNESIUM 1.8 TSH 0.534 Lab 06/07/25 0057 TOTAL PROTEIN 6.1 ALBUMIN 3.0* GLOBULIN 3.1 ALT (SGPT) 652* AST (SGOT) 558* BILIRUBIN 0.9 ALK PHOS 102 Lab 06/07/25 0057 CHOLESTEROL 62 LDL CHOL 15 HDL CHOL 33* TRIGLYCERIDES 58 Brief Urine Lab Results None Microbiology Results Abnormal None Duplex Carotid Ultrasound CAR Result Date: 06/07/2025 Right internal carotid artery demonstrates a less than 50% stenosis. Right vertebral artery was notvisualized. Left internal carotid artery demonstrates a less than 50% stenosis. Antegrade left vertebral flow. FINANCIAL INSTITUTION PRESIDENT FEES - Fiberoptic Endo Eval Swallow Result [...] hydronephrosis. No dilated bowel loops within the qbfmd-tx-oeiw. No free fluid in the abdomen. No [...] MD 06/07/2025 10:26 AM EDT Workstation ID: [id number] MRI Brain Without Contrast Result Date: 06/07/2025 [...] MD 06/07/2025 10:22 AM EDT Workstation ID: [id number] CT Outside Films Result Date: 06/06/2025 This [...] and ESRD on HD who presents from [facility] due to AMS and concern for stroke. In addition he was found to have pneumonia and possible choledocholithiasis. Stroke team accepted in transfer to [facility]. Acute encephalopathy- improving --Likely multifactorial due to [...] ASA 81mg; continue atorvastatin 80 mg nightly --PT/OT/FINANCIAL INSTITUTION PRESIDENT evaluations Choledocholithiasis --CT A/P at OSH showed [...] history of ESRD on HD MWF at [facility] last dialyzed yesterday. Patient was [facility] [place] [facility] due to lethargy, confusion, weakness, initially transferred to [facility]. Subjective Interval History: Patient seen on dialysis. [...] Atrial fibrillation 1. ESRD: On HD at [facility]. 2. Atrial fibrillation on Eliquis 3. [...] from the original note were not included. [facility] Medicine Services PROGRESS NOTE Patient Name: Alexa [...] Results Reviewed: LAB RESULTS: Lab 06/07/25 0603 06/07/25 005 WBC -- 18.26* HEMOGLOBIN -- 9.0* HEMATOCRIT -- 28.1* PLATELETS -- 120* NEUTROS ABS -- 15.45* IMMATURE GRANS (ABS) -- 0.90* LYMPHS ABS -- 0.52* MONOS ABS -- 1.37* EOS ABS -- 0.00 MCV -- 97.6* LACTATE 0.9 -- Lab 06/07/25 005 SODIUM 136 POTASSIUM 5.0 CHLORIDE 93* CO2 27.9 ANION GAP 15.1* BUN 52.4* CREATININE 6.07* EGFR 9.0* GLUCOSE 77 CALCIUM 9.0 MAGNESIUM 1.8 TSH 0.534 Lab 06/07/25 005 TOTAL PROTEIN 6.1 ALBUMIN 3.0* GLOBULIN 3.1 ALT (SGPT) 652* AST (SGOT) 558* BILIRUBIN 0.9 ALK PHOS 102 Lab 06/07/25 0057 CHOLESTEROL 62 LDL [...] hydronephrosis. No dilated bowel loops within the vtinn-gu-ppvo. No free fluid in the abdomen. No [...] MD 06/07/2025 10:26 AM EDT Workstation ID: [id number] MRI Brain Without Contrast Result Date: 06/07/2025 [...] MD 06/07/2025 10:22 AM EDT Workstation ID: [id number] CT Outside Films Result Date: 06/06/2025 This [...] to display. Brief Hospital Course to date: Aelxa Fuentes is a 74 y.o. male with hx of HTN, HLD, COPD, Afib on Eliquis, and ESRD on HD who presents from [facility] due to AMS and concern for stroke. In addition he was found to have pneumonia and possible choledocholithiasis. Stroke team accepted in transfer to [facility]. Acute encephalopathy --Likely multifactorial due to pneumonia, [...] 81 mg; continue atorvastatin 80 mg nightly --PT/OT/FINANCIAL INSTITUTION PRESIDENT evaluations Choledocholithiasis --CT A/P at OSH showed [...] HD (Wednesday, Wednesday, Wednesday) who presented [facility] emergency department from his SNF [...] in the left occipital lobe. Echocardiogram: Pending EBD SPECIAL EDUCATION TEACHER antiplatelet/anticoagulation/statin: Apixaban 2.5 mg twice daily, atorvastatin [...] - LDL goal less than 70 - PT/OT/FINANCIAL INSTITUTION PRESIDENT - Outpatient follow-up in vascular neurology clinic [...] or concerns Dorian Haider MD Vascular Neurologist [facility] documented in this encounter H&P Notes * Rolan Muro MD - 06/06/2025 8:47 PM EDT Images from the original note were not included. [facility] Medicine Services HISTORY AND PHYSICAL Patient Name: Alexa Fuentes : 1950 Primary Care Physician: Jeffrey Sun MD Date of admission: 06/06/2025 Subjective Subjective Chief Complaint: Altered mental status HPI: Alexa Fuentes is a 74 y.o. male with PMHx significant for end-stage CKD on hemodialysis (M/W/F), atrial fibrillation on Eliquis, COPD, hyperlipidemia, and hypertension. He was directly admitted to [facility] from [facility] for evaluation of altered mental status and concern for stroke. Earlier in the day, the patient was undergoing his scheduled dialysis session and was transferred back to his nursing facility. Nursing staff noticed that he was more lethargic, confused, and weak than usual, prompting activation of a stroke code. EMS transported him to [facility]. On arrival, he was placed on a [...] minutes Time spent includes time reviewing chart, xthm-xo-retx time, counseling patient/family/caregiver, ordering medications/tests/procedures, communicating with other health chronic care nurse, documenting clinical information in the electronic health [...] different things in a brief conversation during nutrition and dietetics instructor encounter. I'm okay..not much worse than me. No spiritual needs met at this time. Patient reported that he was about to sleep, then went back to looking at videos on his phone. Director Of Health Education may follow up to see if patient would like to talk at a better time. * Pantera Dc MD - 06/08/2025 6:14 PM EDTAssociated Order(s): IP CONSULT TO INFECTIOUS DISEASES Images from the original note were not included. INFECTIOUS DISEASE CONSULT/INITIAL HOSPITAL VISIT Alexa Fuentes 1950 [id number] Date of Consult: 06/08/2025 Admission Date: 06/06/2025 Requesting Provider: Ivonne aRlph MD Evaluating Physician: Pantera Dc MD Reason for Consultation: Strep pneumoniae bacteremia History of present illness: Patient is a 74 y.o. male with h/o COPD, ESRD/HD MWF/[facility] AVF not working for about a year/dialysis catheter in place for close to a year, afib/Eliquis, obesity, HTN, HLD, and CVA who we were asked tosee for Streptococcus pneumoniae bacteremia. He was transferred from [facility] to [facility] on 06/06 for concerns for stroke along with altered mental status. He was noted at his NH to be more lethargic and confused and was transferred to [facility]. His CT scan at [facility] showed acute/subacute left occipital lobe ischemia and [...] started on IV antibiotics and [facility] [facility] on [facility]. Since arrival, the patient has [...] his antibiotic therapy. His blood cultures from [facility] became positive for GPC in pairs in [...] Not Applicable, PRQamar Shukla John A, MD Potassium Replacement - Follow [...] MRSA Screen, PCR (Inpatient) - Swab, Nares [[id number]] (Abnormal) Collected: 06/08/25 1905 Lab Status: Final result Specimen: Swab from Nares Updated: 06/08/25 215 MRSA PCR Positive Narrative: The negative predictive value of this diagnostic test is high and should only be used to consider de-escalating anti-MRSA therapy. A positive result may indicate colonization with MRSA and must be correlated clinically. KIMANI AURIS PCR - Swab, Axilla Right, Axilla Left and Groin [[id number]] Collected: 06/07/25 0845 Lab Status: Final result Specimen: Swab from Axilla Right, Axilla Left and Groin Updated: 06/08/25 1715 KIMANI AURIS PCR ([facility]) Not Detected Blood Culture - Blood, Wrist, Left [[id number]] (Normal) Collected: 06/07/25 0603 Lab Status: Preliminary result Specimen: Blood from Wrist, Left Updated: 06/08/25 0730 Blood Culture No growth at 24 hours Narrative: Aerobic Bottle Only Less than seven (7) mL's of blood was collected. Insufficient quantity may yield false negative results. Blood Culture - Blood, Wrist, Left [[id number]] (Normal) Collected: 06/07/25 0601 Lab Status: Preliminary result Specimen: Blood from Wrist, Left Updated: 06/08/25 0730 Blood Culture No growth at 24 hours Narrative: Aerobic Bottle Only Less than seven (7) mL's of blood was collected. Insufficient quantity may yield false negative results. Radiology: Imaging Results (Last 72 Hours) Procedure Component Value Units Date/Time FL ERCP pancreatic and biliary ducts [[id number]] Collected: 06/08/25 1531 Updated: 06/08/25 1552 Narrative: FL ERCP PANCREATIC AND BILIARY DUCTS Date of Exam: 06/08/2025 10:49 AM EDT Indication: ENDOSCOPIC RETROGRADE CHOLANGIOPANCREATOGRAPHY. Comparison: None available. Technique: A series of radiographic digital spot films were obtained in conjunction with an endoscopic catheterization of the biliary and pancreatic ductal system, performed by the tire manager. Fluoroscopic Time: 5 minutes 57 seconds Number of Images: 10 Findings: Fluoroscopy demonstrates filling of the bile ducts. Impression: Impression: Fluoroscopy demonstrates filling of the bile ducts. Please see procedure report for full findings. Electronically Signed: Migue Mcfarlane MD 06/08/2025 3:48 PM EDT Workstation ID: [id number] FINANCIAL INSTITUTION PRESIDENT FEES - Fiberoptic Endo Eval Swallow [[id number]] Resulted: 06/07/251658 Updated: 06/07/251658 Narrative: This procedure was auto-finalized with no dictation required. MRI abdomen wo contrast mrcp [[id number]] Collected: 06/07/25 1008 Updated: 06/07/25 1029 Narrative: [...] hydronephrosis. No dilated bowel loops within the dzwkm-xu-zlgv. No free fluid in the abdomen. No [...] MD 06/07/2025 10:26 AM EDT Workstation ID: [id number] MRI Brain Without Contrast [[id number]] Collected: 06/07/25 1013 Updated: 06/07/25 1026 Narrative: [...] MD 06/07/2025 10:22 AM EDT Workstation ID: [id number] CT Outside Films [[id number]] Resulted: 06/06/252046 Updated: 06/06/252046 Narrative: This procedure was auto-finalized with no dictation required. CT Outside Abd/Pelvis [[id number]] Resulted: 06/06/252046 Updated: 06/06/252046 Narrative: This procedure was auto-finalized with no dictation required. CT Outside Head [[id number]] Resulted: 06/06/252046 Updated: 06/06/252046 Narrative: This procedure was auto-finalized with no dictation required. CT Outside Films [[id number]] Resulted: 06/06/252046 Updated: 06/06/252046 Narrative: This procedure was auto-finalized with no dictation required. CT Outside Neck [[id number]] Resulted: 06/06/252046 Updated: 06/06/252046 Narrative: This procedure [...] following: Follow blood cultures here and at [facility] Continue Rocephin 2 GM IV daily Continue Flagyl 500 mg IV Q8H Awaiting evaluation on 06/09 for possible cholecystectomy Please call [facility] laboratory to have then fax final blood [...] Note Date of Service: 06/08/2025 Alexa Fuentes [id number] Referring Provider: Berkley Ralph* Location of Consult: Inpatient Reason for Consultation: Choledocholithiasis History of Present Illness: I am seeing, Alexa Fuentes, in consultation at request of Berkley Ralph* regarding choledocholithiasis. He is a 74-year-old gentleman with history of hypertension, hyperlipidemia, COPD, atrial fibrillation on Eliquis, and end-stage renal disease on hemodialysis who was transferred to [facility] due to concern for altered mental status. [...] 1 tablet by mouth Every Night. B Efoffmc-B-Lnoln Acid (CHRISTINE-CLAUDE PO) Take 1 tablet by [...] Day. 30-600mg 1 tablet twice daily between 6501-5800 loperamide (IMODIUM) 2 MG capsule Take 1 [...] Times a Week. Mon, Wed, Sat between 7444-4992 montelukast (SINGULAIR) 10 MG tablet Take 1 [...] 40 mL, Intravenous, PRN, Kishore Foote MD Family History: Family History Problem Relation Age of Onset Cancer Father Social History: Pt lives in [facility]. Tobacco use: Denies EtOH use : Denies [...] pancreatic and biliary ducts - In process [[id number]] Resulted: 06/08/25 1049 Updated: 06/08/25 1252 This result has not been signed. Information might be incomplete. FINANCIAL INSTITUTION PRESIDENT FEES - Fiberoptic Endo Eval Swallow [[id number]] Resulted: 06/07/25 165 Updated: 06/07/251658 Narrative: This procedure was auto-finalized with no dictation required. MRI abdomen wo contrast mrcp [[id number]] Collected: 06/07/25 1008 Updated: 06/07/25 1029 Narrative: [...] hydronephrosis. No dilated bowel loops within the zadwe-mt-wvmq. No free fluid in the abdomen. No [...] MD 06/07/2025 10:26 AM EDT Workstation ID: [id number] MRI Brain Without Contrast [[id number]] Collected: 06/07/25 1013 Updated: 06/07/25 1026 Narrative: [...] MD 06/07/2025 10:22 AM EDT Workstation ID: [id number] CT Outside Films [[id number]] Resulted: 06/06/252046 Updated: 06/06/252046 Narrative: This procedure was auto-finalized with no dictation required. CT Outside Abd/Pelvis [[id number]] Resulted: 06/06/252046 Updated: 06/06/252046 Narrative: This procedure was auto-finalized with no dictation required. CT Outside Head [[id number]] Resulted: 06/06/252046 Updated: 06/06/252046 Narrative: This procedure was auto-finalized with no dictation required. CT Outside Films [[id number]] Resulted: 06/06/252046 Updated: 06/06/252046 Narrative: This procedure was auto-finalized with no dictation required. CT Outside Neck [[id number]] Resulted: 06/06/252046 Updated: 06/06/252046 Narrative: This procedure [...] of this note may be an electronic house piping inspector/translation of spoken language to printed textusing the Doctor Funation System. * Char Ospina RN - 06/08/2025 11:02 AM EDTAssociated Order(s): IP CONSULT TO SINGER BACK TENDER Chart review for natural resources extension educator consult. At the time of this [...] PM EDTAssociated Order(s): IP CONSULT TO GASTROENTEROLOGY [facility] Gastroenterology Consult Referring Provider: Madisyn Lopez DO [...] tablet by mouth Every Night. Unknown B Xknupgd-X-Gvjvm Acid (CHRISTINE-CLAUDE PO) Take 1 tablet by [...] Day. 30-600mg 1 tablet twice daily between 2462-6949 Unknown loperamide (IMODIUM) 2 MG capsule Take [...] Times a Week. Mon, Wed, Sat between 8827-8492 Unknown montelukast (SINGULAIR) 10 MG tablet Take [...] , Not Applicable, PRN, Rolan Muro MD Med rec consult, , Not Applicable, Daily, Zuleyma Pina, [facility] metroNIDAZOLE (FLAGYL) IVPB 500 mg, 500 mg, Intravenous, Q8H, Rolan Muro MD nitroglycerin (NITROSTAT) SL tablet 0.4 mg, 0.4 mg, Sublingual, Q5 Min PRN, Rolan Muro MD ondansetron (ZOFRAN) injection 4 mg, 4 mg, Intravenous, Q6H PRN, Rolan Muro MD Phosphorus Replacement - Follow Nurse / BPA Driven Protocol, , Not Applicable, PRNJina MohammedA, MD Potassium Replacement - Follow Nurse [...] Units Date/Time MRI abdomen wo contrast mrcp [[id number]] Collected: 06/07/25 1008 Updated: 06/07/25 1029 Narrative: [...] hydronephrosis. No dilated bowel loops within the wubhx-fa-gsmz. No free fluid in the abdomen. No [...] MD 06/07/2025 10:26 AM EDT Workstation ID: [id number] MRI Brain Without Contrast [[id number]] Collected: 06/07/25 1013 Updated: 06/07/25 1026 Narrative: [...] MD 06/07/2025 10:22 AM EDT Workstation ID: [id number] CT Outside Films [[id number]] Resulted: 06/06/252046 Updated: 06/06/252046 Narrative: This procedure was auto-finalized with no dictation required. CT Outside Abd/Pelvis [[id number]] Resulted: 06/06/252046 Updated: 06/06/252046 Narrative: This procedure was auto-finalized with no dictation required. CT Outside Head [[id number]] Resulted: 06/06/252046 Updated: 06/06/252046 Narrative: This procedure was auto-finalized with no dictation required. CT Outside Films [[id number]] Resulted: 06/06/252046 Updated: 06/06/252046 Narrative: This procedure was auto-finalized with no dictation required. CT Outside Neck [[id number]] Resulted: 06/06/252046 Updated: 06/06/252046 Narrative: This procedure [...] history of ESRD on HD MWF at [facility] last dialyzed yesterday. Patient [place] [facility] [place] [facility] due to lethargy, confusion, weakness, initially transferred to [facility]. CT head revealed acute/subacute left occipital lobe ischemia, CTA showed nolarge vessel occlusion. Patient has been on Eliquis prior to this. He was later transferred to [facility]. Recent labs showed a high WBC 21k, [...] tablet by mouth Every Night. Unknown B Bdflfhd-V-Xauag Acid (CHRISTINE-CLAUDE PO) Take 1 tablet by [...] Day. 30-600mg 1 tablet twice daily between 3987-7683 Unknown loperamide (IMODIUM) 2 MG capsule Take [...] Times a Week. Mon, Wed, Sat between 9152-5245 Unknown montelukast (SINGULAIR) 10 MG tablet Take [...] : No suprapubic fullness or tenderness, no Arhcibald catheter. Tunneled dialysis catheter left IJ. Results [...] Occipital stroke 1. ESRD: On HD at [facility]. 2. Atrial fibrillation on Eliquis 3. [...] Rehan Lincoln MD 06/07/25 @NOW * Hanna Rangel APRN - 06/06/2025 5:06 PM EDT Stroke Consult Note Patient Name: Alexa Fuentes Age: 74 y.o. Sex: male : 1950 Primary Care Physician: Jeffrey Sun MD Referring Physician: Dr. Lopez, [facility] ED TIME STROKE TEAM CALLED: 1638 EST TIME [facility] EST TIME PATIENT SEEN: 2039 EST Handedness: Right Race: Chief Complaint/Reason for Consultation: CT findings HPI: Mr. Fuentes is a 74-year-old male with known medical diagnoses of atrial fibrillation (on Eliquis to 2.5 mg twice daily), COPD (not oxygen dependent), HLD, and CKD on HD (Wednesday, Wednesday, Wednesday) who presented to [facility] emergency department from his SNF [...] medical history. He typically receives care at [facility]. His nieceand nephew are present at the bedside. They report that after dialysis today he was taken back to his nursing facility and at that time he was not as responsive as normal. He was taken here to [facility] for further workup and evaluation. Blood sugar as well as blood pressure were reported to be normal at that time. Secondary to CT head findings he was transferred to [facility] for further workup and evaluation. CT [...] sodium chloride Functional Status Prior to Current Stroke/Culebra Score: 4 NIH Stroke Scale Time: 20:47 [...] HD (Wednesday, Wednesday, Wednesday) who presented to [facility] emergency department from his SNF [...] hospitalist service for further stroke workup. Antiplatelet EBD SPECIAL EDUCATION TEACHER: None Anticoagulant EBD SPECIAL EDUCATION TEACHER: Eliquis 2.5 mg twice daily Late acute/subacute [...] Activity as tolerated, fall risk precautions - PT/OT/FINANCIAL INSTITUTION PRESIDENT evaluation - Case management assistance needed, [facility]-term [place] [facility] placement prior to admission 2. Essential hypertension [...] in this encounter Nursing Notes * Susannah Moctezuma RN - 06/14/2025 2:36 PM EDT Goal Outcome Evaluation: Plan of Care Reviewed With: other (see comments) (pt unable to participate; no family present at time of encounter) Progress: no change Outcome Evaluation: Pt seen at 1155; sleeping, no observable signs of discomfort, no family present. Per Dr. Carmen, pt had BM this morning, plan for discharge to [facility] today. 0930: Palliative IDT discussion: ANA CARVALHO, RN, SW, Director Of Health Education After hours, weekends and holidays, contact Palliative Provider by calling [phone] Problem: Palliative Care Goal: Enhanced Quality of Life Outcome: Adequate for Care Transition Intervention: Maximize Comfort Flowsheets (Taken 06/14/2025 1432) Pain Management Interventions: (No observable signs of discomfort; has not required pain medicationin several days) other (see comments) Intervention: Promote Advance Care Planning Flowsheets (Taken 06/14/2025 1432) Life Transition/Adjustment: (discharge today to [facility]) other (see comments) * Jai Zayas RN - 06/14/2025 1:10 PM EDT Report given to Bobby HAGEN at [facility] * Shahnaz Gayle RN - 06/14/2025 11:38 AM EDT [facility] 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 It [...] Howell RN - 06/14/2025 12:05 AM EDT train caller provider paged to report elevated bp * [...] 06/13/2025 3:19 AM EDT Call placed to solutions architect provider to report right sided nose bleed. Per dayshift RN patient felt nasal cannula was making his nose dry. Humidification added during 1999 round. FREIGHT SERVICE INSPECTOR to enter orders. * Terra Valverde Speech Therapy Student - 06/12/2025 9:30 AM EDT Goal Outcome Evaluation: Plan of Care Reviewed With: (P) patient Progress: (P) no change (eval) Anticipated Discharge Disposition (FINANCIAL INSTITUTION PRESIDENT): (P) senior living facility FINANCIAL INSTITUTION PRESIDENT Diagnosis: (P) moderate, dysarthria, mild, cognitive-linguistic disorder (06/12/25929) FINANCIAL INSTITUTION PRESIDENT Diagnosis Comments: (P) Pt reports that his short-term memory is worse than his usp said, I can recall things that happened 25 years ago. Pt stated that he would prefer to work on his speech instead of memory and cognition. (06/12/25929) Cosigned by Patricia Munoz MS CCC-FINANCIAL INSTITUTION PRESIDENT at 06/12/2025 1:03 PM EDT Associated attestation - Alexander Patricia, CCC-FINANCIAL INSTITUTION PRESIDENT - 06/12/2025 1:03 PM EDT Patricia Munoz, CCC-FINANCIAL INSTITUTION PRESIDENT * Kieran Smalls RN - 06/11/2025 2:30 PM EDT Goal Outcome Evaluation: Palliative RN visit with pt at bedside. Co-visit with Palliative FREIGHT SERVICE INSPECTOR Aurora Peña. Pt just returned from dialysis. [...] Refused low-air loss bed, form signed. Turned i1htges, safety precautions in place. * Cayla Burnett RN - 06/09/2025 7:49 AM EDT Pt A&Ox4, RA, Sinus Francisco on tele, no c/o pain or nausea, NIH=3. Report call to CONSTRUCTION MANAGER @ 0736. * Beau Henao RN - 06/08/2025 5:53 [...] tx. Blood returned to pt. Report to IHEU Barrett * Kieran Smalls RN - 06/08/2025 12:00 PM EDT Goal Outcome Evaluation: Palliative RN attempted to visit with patient. Pt still in Endo. Will attempt to see patient later in the day. At 1430 - Attempted to see patient at bedside. Per bedside HIEU [place] pt went straight to Dialysis from Endo. Problem: Palliative Care Goal: Enhanced Quality of Life Outcome: Progressing * Shahnaz Gayle RN - 06/08/2025 8:00 AM EDT [facility] consult for Comments: Patient agreeable to jesenia specialty mattress, he thought WOC meant an air mattress such as the waffle pads Ordered jesenia ervin from [facility]. * Mariza Brunson, MS CCC-FINANCIAL INSTITUTION PRESIDENT - 06/07/2025 5:12 PM EDT Goal Outcome Evaluation: Plan of Care Reviewed With: patient, family Progress: improving Anticipated Discharge Disposition (FINANCIAL INSTITUTION PRESIDENT): senior living facility FINANCIAL INSTITUTION PRESIDENT Diagnosis: functional cognitive-linguistic skills (06/07/25 1330) FINANCIAL INSTITUTION PRESIDENT Diagnosis Comments: Pt son reported this is baseline for pt. (06/07/25 1330) FINANCIAL INSTITUTION PRESIDENT Swallowing Diagnosis: functional oral phase, functional pharyngeal phase (06/07/25 1630) * Roxanne Travis, Speech Therapy Student - 06/07/2025 2:30 PM EDT Goal Outcome Evaluation: Plan of Care Reviewed With: (P) patient, child Progress: (P) no change Anticipated Discharge Disposition (FINANCIAL INSTITUTION PRESIDENT): (P) senior living facility FINANCIAL INSTITUTION PRESIDENT Diagnosis: (P) functional cognitive-linguistic skills (06/07/25 1330) FINANCIAL INSTITUTION PRESIDENT Diagnosis Comments: (P) Pt son reported this is baseline for pt. (06/07/25 1330) FINANCIAL INSTITUTION PRESIDENT Swallowing Diagnosis: (P) functional oral phase, suspected pharyngeal dysphagia (06/07/25 1330) Cosigned by Batsheva Spears MS CCC-FINANCIAL INSTITUTION PRESIDENT at 06/07/2025 3:27 PM EDT Associated attestation - Batsheva Spears MS CCC-FINANCIAL INSTITUTION PRESIDENT - 06/07/2025 3:27 PM EDT Batsheva Spears MS CCC-FINANCIAL INSTITUTION PRESIDENT * Shahnaz Gayle RN - 06/07/2025 2:26 [...] Score: 13 (06/07/25 0800) Specialty support surface: [facility] Offered Patient bariatric Low Air Loss [...] two incontinence pads) to allow waffle or ERVIN to improve microclimate *Raise knee-gatch before elevating HOB to reduce shearing WOC Team will sign off. Please re-consult if the wound(s) worsens. * Licha Carlton, OT - 06/07/2025 1:14 PM EDT Goal [...] palliative care discussed 929 Palliative IDT meeting: FREIGHT SERVICE INSPECTOR ;RNs; MDIV; WATCH INSPECTOR FINAL MOVEMENT After hours, weekends and holidays, contact Palliative Provider by calling [phone]. * Linda Schafer RN - 06/07/2025 6:18 AM EDT Problem: Adult Inpatient Plan of Care Goal: Plan of Care Review Outcome: Not Progressing Goal: Patient-Specific Goal (Individualized) Outcome: Not Progressing Goal: Absence of Hospital-Acquired Illness or Injury Outcome: Not Progressing Intervention: Prevent and Manage VTE (Venous Thromboembolism) Risk Recent Flowsheet Documentation Taken 06/06/20252030 by Linda Schafer RN VTE Prevention/Management: bilateral SCDs (sequential compression devices) off patient refused intervention Goal: Optimal Comfort and Wellbeing Outcome: Not Progressing Goal: Readiness for Transition of Care Outcome: Not Progressing Intervention: Mutually Develop Transition Plan Recent Flowsheet Documentation Taken 06/07/2025617 by Linda Schafer RN Transportation Anticipated: health plan transportation Patient/Family Anticipated Services at Transition: none Patient/Family Anticipates Transition to: long-term care facility Goal Outcome Evaluation: documented in this encounter OR Notes * Op Note - Charles Guerrero MD - 06/09/2025 11:09 AM EDT Operative Report Patient Name: Alexa Fuentes Date of : 1950 [id number] 06/09/2025 PREOPERATIVE DIAGNOSIS: Choledocholithiasis POSTOPERATIVE DIAGNOSIS: Same PROCEDURE PERFORMED: Laparoscopic cholecystectomy SURGEON: Charles Guerrero MD LOBSTER FISHERMAN: None SPECIMENS: Gallbladder and contents ANESTHESIA: General. [...] of 0 Vicryl was then placed in hudsas-ds-veppm fashion around the defect,and a blunt trocar [...] Surgeon(s): Charles Guerrero MD Anesthesia: General Staff: Fruit Press Operator: Haydee Tsang RN Scrub Person: Pura Baker Inspector Technician: Jade Fraire PCT Estimated Blood Loss: minimal Urine Voided: * No values recorded between 06/09/2025 10:40 AM and 06/09/2025 12:18 PM * Specimens: Specimens ID Source Type Tests Collected By Collected At Frozen? A Gallbladder Tissue TISSUE PATHOLOGY EXAM Charles Guerrero MD 06/09/25 1200 Drains: [REMOVED] External Urinary Catheter (Removed) Daily Indications Daily output 06/07/25 0400 Site Assessment Skin intact;Clean 06/07/25399 Application/Removal external catheter applied;skin care provided 06/06/252031 Securement Method Securing device 06/07/25399 Catheter care complete Yes 06/06/252031 Findings: Dense adhesions between the fundus of the gallbladder and the omentum without evidence ofactive inflammation or infection; dilated cystic duct secondary to recent episode of choledocholithiasis Complications: None Charles Guerrero MD Date: 06/09/2025 Time: 12:24 EDT documented in this encounter Miscellaneous Notes * Case Management/Social Work - Sharp, Tesha M, RN - 06/14/2025 1:49 PM EDT Continued Stay Note Gareth Patient Name: Alexa Fuentes Today's Date: 06/14/2025 [...] Final Note: Pt to discharge back to [facility] after HD on 06/13/2025. Nurse to call report [phone] cook [phone]. Discharge summary to be faxed to [phone] and [phone]. Nurse to notify when ready for EMS dispatch if prior to 1530. PCS signed. Selected Continued Care - Admitted Since 06/06/2025 Destination Coordination complete. Service Provider Services Address Phone Fax Patient Preferred [facility] Intermediate Care [address] [place] [address] [place] [phone] -- Durable Medical Equipment No services have been selected for the patient. Dialysis/Infusion Coordination complete. Service Provider Services Address Phone Fax Patient Preferred [facility] Dialysis In-Center Hemodialysis [address] [facility] [id number] -- Home Medical Care No services have been selected for the patient. Therapy No services have been selected for the patient. Community Resources No services have been selected for the patient. Community & DME No services have been selected for the patient. Transportation Services Transportation: Ambulance Ambulance: [facility] Ambulance Status: Accepted Final Discharge Disposition Code: 04 - intermediate care facility * Case Management/Social Work - Tesha Coeloh RN - 06/12/2025 11:59 AM EDT Continued Stay Note [facility] Patient Name: Alexa Fuentes Today's Date: 06/12/2025 Admit Date: 06/06/2025 Plan: Home Discharge Plan Row Name 06/12/25 1151 Plan Plan Home Patient/Family in Agreement with Plan yes Plan Comments Spoke with [facility] in HD in [place] and they currently have the 1000mg in 250ml Vanco that pt is ordered to recieve tomorrow during HD and will be able to administer. At this time CM unable to verify duration of ABX. Also notified admissions at [facility] that plan is for pt to return tomorrow after HD and explained his ABX regimen. CM will fax discharge summary to facility and HD clinic at discharge. Attempt made to notify pt at bedside but he was sleeping. Will follow up to get IMM and EMS DNR signed Final Discharge Disposition Code 04 - [facility] facility Final Note -- Discharge Codes No documentation. Expected Discharge Date and Time Expected Discharge Date Expected Discharge Time Jun 11, 2025 Tesha Coelho RN * Therapy Re-Evaluation - Terra Valverde, Speech Therapy Student - 06/12/2025 9:30 AM EDT Acute Care - Speech Language Pathology Re-Evaluation [facility] Cognitive-Communication Evaluation Patient Name: Alexa Fuentes : [...] Surgeon: Charles Guerrero MD; Location: [facility] OR; Service: General; Laterality: N/A; COLONOSCOPY ERCP N/A 06/08/2025 Procedure: ENDOSCOPIC RETROGRADE CHOLANGIOPANCREATOGRAPHY; Surgeon: Kishore Foote MD; Location: [facility]; Service: Gastroenterology; Laterality: N/A; KNEE SURGERY Right FINANCIAL INSTITUTION PRESIDENT Recommendation and Plan Recommended discharge disposition is based on the functional assessment performed by PT/OT/Speech therapy (as applicable) and may not reflect the medical necessity determined by your provider or services covered by an individual patient's insurance plan or patient resource. FINANCIAL INSTITUTION PRESIDENT Diagnosis: (P) moderate, dysarthria, mild, cognitive-linguistic disorder (06/12/25929) FINANCIAL INSTITUTION PRESIDENT Diagnosis Comments: (P) Pt reports that his short-term memory is worse than his usp said, I can recall things that happened 25 years ago. Pt stated that he would prefer to work on his speech instead of memory and cognition. (06/12/25929) SLC Criteria for Skilled Therapy Interventions Met: (P) yes (06/12/25929) Anticipated Discharge Disposition (FINANCIAL INSTITUTION PRESIDENT): (P) senior living facility (06/12/25929) Therapy Frequency (FINANCIAL INSTITUTION PRESIDENT SLC): (P) 5 days per week (06/12/25929) Predicted Duration Therapy Intervention (Days): (P) 2 weeks (06/12/25929) FINANCIAL INSTITUTION PRESIDENT EVALUATION (Last 72 Hours) FINANCIAL INSTITUTION PRESIDENT SLC Evaluation Row Name 06/12/25929 Communication Assessment/Intervention [...] improving it. (P) -EM Cognitive Assessment Intervention- FINANCIAL INSTITUTION PRESIDENT Cognitive Function (Cognition) mild impairment (P) -EM [...] since arriving at the hospital. (P) -EM FINANCIAL INSTITUTION PRESIDENT Evaluation Clinical Impressions FINANCIAL INSTITUTION PRESIDENT Diagnosis moderate;dysarthria;mild;cognitive-linguistic disorder (P) -EM FINANCIAL INSTITUTION PRESIDENT Diagnosis Comments Pt reports that his short-term memory is worse than his usp said, I can recall things that happened 25 years ago. Pt stated that he would prefer to work on his speech instead of memory and cognition. (P) -EM Rehab Potential/Prognosis good (P) -EM SLC Criteria for Skilled Therapy Interventions Met yes (P) -EM Functional Impact difficulty in expressing complex messages (P) -EM Recommendations Therapy Frequency (FINANCIAL INSTITUTION PRESIDENT SLC) 5 days per week (P) -EM Predicted Duration Therapy Intervention (Days) 2 weeks (P) -EM Anticipated Discharge Disposition (FINANCIAL INSTITUTION PRESIDENT) senior living facility (P) -EM User Alvarez (r) = Recorded By, (t) = Taken By, (c) = Cosigned By Initials Name Effective Dates EM Terra Valverde, Speech Therapy Student 04/27/25 - EDUCATION The patient has been educated in the following areas: Cognitive Impairment. FINANCIAL INSTITUTION PRESIDENT GOALS Row Name 06/12/25 0914 Patient will demonstrate functional communication skills for return to discharge environment [place] Independently (P) -EM Time frame 2 weeks (P) -EM Progress/Outcomes goal ongoing (P) -EM FINANCIAL INSTITUTION PRESIDENT Diagnostic Treatment Patient will participate in further assessment in the following areas higher- level cognitive-linguistic;motor speech;clarification of baseline cognitive communication status (P) -EM Time Frame (Diagnostic) 1 week (P) -EM Progress/Outcomes (Additional Goal 1, FINANCIAL INSTITUTION PRESIDENT) goal met (P) -EM Comment (Diagnostic) Pt reports mild memory deficits at baseline. Higher level cognitive evaluationcompleted. (P) -EM Articulation Goal 1 (FINANCIAL INSTITUTION PRESIDENT) Improve Articulation Goal 1 (FINANCIAL INSTITUTION PRESIDENT) of specific sounds in phrases;of specific sounds in connected speech;80%;with minimal cues (75-90%) (P) -EM Time Frame (Articulation Goal 1, FINANCIAL INSTITUTION PRESIDENT) 1 week (P) -EM Progress/Outcomes (Articulation Goal 1, FINANCIAL INSTITUTION PRESIDENT) new goal (P) -EM Memory Skills Goal 1 (FINANCIAL INSTITUTION PRESIDENT) Improve Memory Skills Through Goal 1 (FINANCIAL INSTITUTION PRESIDENT) recalling related word lists with an imposed delay;80%;with minimal cues (75-90%) (P) -EM Time Frame (Memory Skills Goal 1, FINANCIAL INSTITUTION PRESIDENT) 1 week (P) -EM Progress/Outcomes (Memory Skills Goal 1, FINANCIAL INSTITUTION PRESIDENT) new goal (P) -EM Organizational Skills Goal 1 (FINANCIAL INSTITUTION PRESIDENT) Improve Thought Organization Through Goal 1 (FINANCIAL INSTITUTION PRESIDENT) completing a divergent naming task;80%;with minimal cues (75-90%) (P) -EM Time Frame (Thought Organization Skills Goal 1, FINANCIAL INSTITUTION PRESIDENT) 1 week (P) -EM Progress/Outcomes (Thought Organization Skills Goal 1, FINANCIAL INSTITUTION PRESIDENT) new goal (P) -EM User Alvarez (r) = Recorded By, (t) = Taken By, (c) = Cosigned By Initials Name Provider Type EM Terra Valverde Speech Therapy Student FINANCIAL INSTITUTION PRESIDENT Student Time Calculation: Time Calculation- FINANCIAL INSTITUTION PRESIDENT Row Name 06/12/25 1213 Time Calculation- FINANCIAL INSTITUTION PRESIDENT FINANCIAL INSTITUTION PRESIDENT Start Time 929 (P) -EM FINANCIAL INSTITUTION PRESIDENT Received On 06/12/25 (P) -EM Untimed Charges 25267-YD Eval Speech and Production w/ Language Minutes 68 (P) -EM Total Minutes Untimed Charges Total Minutes 68 (P) -EM Total Minutes 68 (P) -EM User Alvarez (r) = Recorded By, (t) = Taken By, (c) = Cosigned By Initials Name Provider Type EM Terra Valverde, Speech Therapy Student FINANCIAL INSTITUTION PRESIDENT Student Therapy Charges for Today Code Description Service Date Service Provider Modifiers Qty [id number] HC ST EVAL SPEECH AND PROD W LANG 5 06/12/2025 Terra Valverde Speech Therapy StudentGN, KX 1 Terra Valverde Speech Therapy Student 06/12/2025 Cosigned by Patricia Munoz MS CCC-FINANCIAL INSTITUTION PRESIDENT at 06/12/2025 1:03 PM EDT Associated attestation - Patricia Munoz MS CCC-FINANCIAL INSTITUTION PRESIDENT - 06/12/2025 1:03 PM EDT Patricia Munoz MS CCC-FINANCIAL INSTITUTION PRESIDENT * Case Management/Social Work - Tesha Coelho RN - 06/11/2025 12:41 PM EDT Continued Stay Note [facility] Patient Name: Alexa Fuentes Today's Date: 06/11/2025 [...] for discharge. Pt has bed hold at [facility]. CM will cont to follow. Discharge Codes No documentation. Expected Discharge Date and Time Expected Discharge Date Expected Discharge Time Jun 11, 2025 Tesha Coelho RN * MBS/VFSS/FEES - Mariza Brunson, MS QUETA-FINANCIAL INSTITUTION PRESIDENT - 06/07/2025 5:12 PM EDT Images from [...] Procedure Laterality Date COLONOSCOPY KNEE SURGERY Right FINANCIAL INSTITUTION PRESIDENT Recommendation and Plan Recommended discharge disposition is based on the functional assessment performed by PT/OT/Speech therapy (as applicable) and may not reflect the medical necessity determined by your provider or services covered by an individual patient's insurance plan or patient resource. FINANCIAL INSTITUTION PRESIDENT Swallowing Diagnosis: functional oral phase, functional pharyngeal phase (06/07/25 163) FINANCIAL INSTITUTION PRESIDENT Diet Recommendation: regular textures, thin liquids (06/07/25 163) Recommended Precautions and Strategies: upright posture during/after eating (06/07/25 163) FINANCIAL INSTITUTION PRESIDENT Rec. for Method of Medication Administration: meds whole, with thin liquids, with puree, as tolerated (06/07/25 163) Monitor for Signs of Aspiration: no problems identified requiring continued intervention (06/07/25 163) Recommended Diagnostics: No further FINANCIAL INSTITUTION PRESIDENT services recommended (06/07/25 163) Swallow Criteria for Skilled Therapeutic Interventions Met: no problems identified which require skilled intervention (06/07/25 163) Anticipated Discharge Disposition (FINANCIAL INSTITUTION PRESIDENT): senior living facility (06/07/25 163) Therapy Frequency (Swallow): evaluation only (06/07/25 163) Oral Care Recommendations: Oral Care BID/PRN (06/07/25 163) Progress: improving SWALLOW EVALUATION (Last 72 Hours) FINANCIAL INSTITUTION PRESIDENT Adult Swallow Evaluation Row Name 06/07/25 1630 [...] Skills fed by staff/caregiver -EC fed by FINANCIAL INSTITUTION PRESIDENT;needed assist -SM (r) LS (t) SM (c) [...] -EC -- Secretion Rating Scale (Vimal et alKip 1996) 0- normal, no visible secretions -EC -- Secretion Description thin -EC -- Ice Chips DNA -EC -- Spontaneous Swallow frequency adequate -EC -- Sensory sensed scope -EC -- FEES Interpretation Oral Phase WFL -EC -- Initiation of Pharyngeal Swallow Initiation of Pharyngeal Swallow WFL -EC -- Pharyngeal Phase functional pharyngeal phase of swallow -EC -- FINANCIAL INSTITUTION PRESIDENT Evaluation Clinical Impression FINANCIAL INSTITUTION PRESIDENT Swallowing Diagnosis functional oral phase;functional pharyngeal phase [...] Therapy Frequency (Swallow) evaluation only -EC -- FINANCIAL INSTITUTION PRESIDENT Diet Recommendation regular textures;thin liquids -EC -- -SM (r) LS (t) SM (c) Recommended Diagnostics No further FINANCIAL INSTITUTION PRESIDENT services recommended -EC FEES -SM (r) LS (t) SM (c) Recommended Precautions and Strategies upright posture during/after eating -EC general aspiration precautions -SM (r) LS (t) SM (c) Oral Care Recommendations Oral Care BID/PRN -EC Oral Care BID/PRN -SM (r) LS (t) SM (c) FINANCIAL INSTITUTION PRESIDENT Rec. for Method of Medication Administration meds whole;with thin liquids;with puree;as tolerated -EC -- Monitor for Signs of Aspiration no problems identified requiring continued intervention -EC yes;notify FINANCIAL INSTITUTION PRESIDENT if any concerns -SM (r) LS (t) SM (c) Anticipated Discharge Disposition (FINANCIAL INSTITUTION PRESIDENT) senior living facility -EC senior living facility -SM (r) LS (t) SM (c) User Alvarez (r) = Recorded By, (t) = Taken By, (c) = Cosigned By Initials Name Effective Dates RADHA Spears Batsheva M, MS CCC-FINANCIAL INSTITUTION PRESIDENT 10/02/24 - EC Mariza Brunosn, MS [facility]-FINANCIAL INSTITUTION PRESIDENT 07/06/24 - Roxanne Loyd, Speech Therapy Student 05/01/25 - EDUCATION The patient has been educated in the following areas: Dysphagia (Swallowing Impairment). FINANCIAL INSTITUTION PRESIDENT GOALS Row Name 06/07/25 1330 Patient will demonstrate functional communication skills for return to discharge environment [place] Independently -SM (r) LS (t) SM (c) Time frame 2 weeks -SM (r) LS (t) SM (c) Progress/Outcomes new goal -SM (r) LS (t) SM (c) FINANCIAL INSTITUTION PRESIDENT Diagnostic Treatment Patient will participate in further assessment in the following areas higher- level cognitive-linguistic;motor speech;clarification of baseline cognitive communication status -SM (r) LS (t) SM (c) Time Frame (Diagnostic) 1 week -SM (r) LS (t) SM (c) Progress/Outcomes (Additional Goal 1, FINANCIAL INSTITUTION PRESIDENT) new goal -SM (r) LS (t) SM (c) User Alvarez (r) = Recorded By, (t) = Taken By, (c) = Cosigned By Initials Name Provider Type RADHA SpearsBatsheva, MS [facility]-FINANCIAL INSTITUTION PRESIDENT Speech and Language Pathologist Roxanne Loyd, Speech Therapy Student FINANCIAL INSTITUTION PRESIDENT Student Time Calculation: Time Calculation- FINANCIAL INSTITUTION PRESIDENT Row Name 06/07/25 1711 06/07/25 1430 Time Calculation- FINANCIAL INSTITUTION PRESIDENT FINANCIAL INSTITUTION PRESIDENT Start Time 1630 -EC 1330 -SM (r) LS (t) SM (c) FINANCIAL INSTITUTION PRESIDENT Received On 06/07/25 -EC 06/07/25 -SM (r) LS (t) SM (c) Untimed Charges 28087-TH Eval Speech and Production w/ Language Minutes -- 35 -SM (r) LS (t) SM (c) 29924-HD Eval Oral Pharyng Swallow Minutes -- 30 -SM (r) LS (t) SM (c) 60795-BU Fiberoptic Endo Eval Swallow Minutes 38 -EC -- Total Minutes Untimed Charges Total Minutes 38 -EC 65 -SM (r) LS (t) Total Minutes 38 -EC 65 -SM (r) LS (t) User Alvarez (r) = Recorded By, (t) = Taken By, (c) = Cosigned By Initials Name Provider Type ToryBatsheva, MS CCC-FINANCIAL INSTITUTION PRESIDENT Speech and Language Pathologist EC Mariza Brunson, CCC-FINANCIAL INSTITUTION PRESIDENT Speech and Language Pathologist LS Roxanne Travis, Speech Therapy Student FINANCIAL INSTITUTION PRESIDENT Student Therapy Charges for Today Code Description Service Date Service Provider Modifiers Qty [id number] HC ST FIBEROPTIC ENDO EVAL SWALL 3 06/07/2025 Mariza Brunson, MS BIRCH- FINANCIAL INSTITUTION PRESIDENT GN, KX 1 Mariza Brunson MS CCC-ALISSA 06/07/2025 * Therapy Evaluation - Roxanne Travis, Speech Therapy Student - 06/07/2025 2:33 PM EDT Images from the original note were not included. Acute Care - Speech Language Pathology Swallow Initial Evaluation [facility] Clinical Swallow Evaluation Cognitive-Communication Evaluation Patient Name: [...] Procedure Laterality Date COLONOSCOPY KNEE SURGERY Right FINANCIAL INSTITUTION PRESIDENT Recommendation and Plan Recommended discharge disposition is based on the functional assessment performed by PT/OT/Speech therapy (as applicable) and may not reflect the medical necessity determined by your provider or services covered by an individual patient's insurance plan or patient resource. FINANCIAL INSTITUTION PRESIDENT Swallowing Diagnosis: (P) functional oral phase, suspected pharyngeal dysphagia (06/07/25 1330) Recommended Precautions and Strategies: (P) general aspiration precautions (06/07/25 1330) Monitor for Signs of Aspiration: (P) yes, notify FINANCIAL INSTITUTION PRESIDENT if any concerns (06/07/251329) Recommended Diagnostics: (P) FEES (06/07/251329) Swallow Criteria for Skilled Therapeutic Interventions Met: (P) demonstrates skilled criteria (06/07/251329) Anticipated Discharge Disposition (FINANCIAL INSTITUTION PRESIDENT): (P) senior living facility (06/07/251329) Rehab Potential/Prognosis, Swallowing: (P) good, to achieve stated therapy goals (06/07/251329) Predicted Duration Therapy Intervention (Days): (P) 2 weeks (06/07/251329) Oral Care Recommendations: (P) Oral Care BID/PRN (06/07/251329) Progress: (P) no change SWALLOW EVALUATION (Last 72 Hours) FINANCIAL INSTITUTION PRESIDENT Adult Swallow Evaluation Row Name 06/07/251329 General Information Current Method of Nutrition NPO (P) -LS Prior Level of Function-Communication unknown (P) -LS Oral Motor Structure and Function Dentition Assessment upper dentures/partial in place (P) -LS Oral Musculature and Cranial Nerve Assessment Oral Motor General Assessment WFL (P) -LS General Eating/Swallowing Observations Respiratory Support Currently in Use nasal cannula (P) -LS Eating/Swallowing Skills fed by FINANCIAL INSTITUTION PRESIDENT;needed assist (P) -LS Positioning During Eating upright [...] comments) (P) wet cough following trials. -LS FINANCIAL INSTITUTION PRESIDENT Evaluation Clinical Impression FINANCIAL INSTITUTION PRESIDENT Swallowing Diagnosis functional oral phase;suspected pharyngeal dysphagia (P) -LS Functional Impact risk of aspiration/pneumonia (P) -LS Rehab Potential/Prognosis, Swallowing good, to achieve stated therapy goals (P) -LS Swallow Criteria for Skilled Therapeutic Interventions Met demonstrates skilled criteria (P) -LS Recommendations FINANCIAL INSTITUTION PRESIDENT Diet Recommendation -- (P) -LS Recommended Diagnostics FEES (P) -LS Recommended Precautions and Strategies general aspiration precautions (P) -LS Oral Care Recommendations Oral Care BID/PRN (P) -LS Monitor for Signs of Aspiration yes;notify FINANCIAL INSTITUTION PRESIDENT if any concerns (P) -LS Anticipated Discharge Disposition (FINANCIAL INSTITUTION PRESIDENT) senior living facility (P) -LS User Alvarez (r) = Recorded By, (t) = Taken By, (c) = Cosigned By Initials Name Effective Dates Roxanne Loyd Speech Therapy Student 05/01/25 - EDUCATION The patient has been educated in the following areas: Cognitive Impairment Communication Impairment Dysphagia (Swallowing Impairment) Oral Care/Hydration. FINANCIAL INSTITUTION PRESIDENT GOALS Row Name 06/07/25 1330 Patient will demonstrate functional communication skills for return to discharge environment [place] Independently (P) -LS Time frame 2 weeks (P) -LS Progress/Outcomes new goal (P) -LS FINANCIAL INSTITUTION PRESIDENT Diagnostic Treatment Patient will participate in further assessment in the following areas higher- level cognitive-linguistic;motor speech;clarification of baseline cognitive communication status (P) -LS Time Frame (Diagnostic) 1 week (P) -LS Progress/Outcomes (Additional Goal 1, FINANCIAL INSTITUTION PRESIDENT) new goal (P) -LS User Alvarez (r) = Recorded By, (t) = Taken By, (c) = Cosigned By Initials Name Provider Type Roxanne Loyd, Speech Therapy Student FINANCIAL INSTITUTION PRESIDENT Student Time Calculation: Time Calculation- FINANCIAL INSTITUTION PRESIDENT Row Name 06/07/25 1430 Time Calculation- FINANCIAL INSTITUTION PRESIDENT FINANCIAL INSTITUTION PRESIDENT Start Time 1330 (P) -LS FINANCIAL INSTITUTION PRESIDENT Received On 06/07/25 (P) -LS Untimed Charges 76190-ZE Eval Speech and Production w/ Language Minutes 35 (P) -LS 33035-SX Eval Oral Pharyng Swallow Minutes 30 (P) -LS Total Minutes Untimed Charges Total Minutes 65 (P) -LS Total Minutes 65 (P) -LS User Alvarez (r) = Recorded By, (t) = Taken By, (c) = Cosigned By Initials Name Provider Type Roxanne Loyd Speech Therapy Student FINANCIAL INSTITUTION PRESIDENT Student Therapy Charges for Today Code Description Service Date Service Provider Modifiers Qty [id number] ST EVAL SPEECH AND PROD W LANG 3 06/07/2025 Roxanne Travis Speech Therapy StudentGN, KX [id number] EVAL ORAL PHARYNG SWALLOW 2 06/07/2025 Roxanne Travis, Speech Therapy Student GN, KX 1 Roxanne Gardner, Speech Therapy Student 06/07/2025 and Acute Care - Speech Language Pathology Initial Evaluation [place] Patient Name: Alexa Fuentes : 1950 Today's Date: 06/07/2025 Admit Date: 06/06/2025 Visit Dx: ICD-10-CM ICD-9-CM 1. Dysphagia, unspecified type R13.10 787.20 Patient Active Problem List Diagnosis Occipital stroke Choledocholithiasis Acute respiratory failure with hypoxia CAP (community acquired pneumonia) ESRD (end stage renal disease) Atrial fibrillation History reviewed. No pertinent past medical history. Past Surgical History: Procedure Laterality Date COLONOSCOPY KNEE SURGERY Right FINANCIAL INSTITUTION PRESIDENT Recommendation and Plan Recommended discharge disposition is based on the functional assessment performed by PT/OT/Speech therapy (as applicable) and may not reflect the medical necessity determined by your provider or services covered by an individual patient's insurance plan or patient resource. FINANCIAL INSTITUTION PRESIDENT Diagnosis: (P) functional cognitive-linguistic skills (06/07/251329) FINANCIAL INSTITUTION PRESIDENT Diagnosis Comments: (P) Pt son reported this is baseline for pt. (06/07/251329) Monitor for Signs of Aspiration: (P) yes, notify FINANCIAL INSTITUTION PRESIDENT if any concerns (06/07/251329) Swallow Criteria for Skilled Therapeutic Interventions Met: (P) demonstrates skilled criteria (06/07/251329) SLC Criteria for Skilled Therapy Interventions Met: (P) yes (06/07/251329) Anticipated Discharge Disposition (FINANCIAL INSTITUTION PRESIDENT): (P) senior living facility (06/07/251329) Therapy Frequency (FINANCIAL INSTITUTION PRESIDENT SLC): (P) 5 days per week (06/07/251329) Predicted Duration Therapy Intervention (Days): (P) 2 weeks (06/07/251329) Oral Care Recommendations: (P) Oral Care BID/PRN (06/07/251329) Progress: (P) no change (06/07/25 143) FINANCIAL INSTITUTION PRESIDENT EVALUATION (Last 72 Hours) FINANCIAL INSTITUTION PRESIDENT SLC Evaluation Row Name 06/07/251329 Communication Assessment/Intervention Document Type evaluation (P) -LS Subjective Information no complaints (P) -LS Patient Observations alert;cooperative (P) -LS Patient/Family/Caregiver Comments/Observations Son present (P) -LS Patient Effort good (P) -LS Symptoms Noted During/After Treatment none (P) -LS General Information Patient Profile Reviewed yes (P) -LS Pertinent History Of Current Problem Presents to [facility] w/ altered mental status, concern for stroke, [...] (Voice) WFL (P) -LS Cognitive Assessment Intervention- FINANCIAL INSTITUTION PRESIDENT Cognitive Function (Cognition) WFL (P) -LS Orientation Status (Cognition) person;place;time;awareness of basic personal information;WFL (P) -LS Attention (Cognitive) WFL (P) -LS FINANCIAL INSTITUTION PRESIDENT Evaluation Clinical Impressions FINANCIAL INSTITUTION PRESIDENT Diagnosis functional cognitive-linguistic skills (P) -LS FINANCIAL INSTITUTION PRESIDENT Diagnosis Comments Pt son reported this is baseline for pt. (P) -LS Rehab Potential/Prognosis good (P) -LS SLC Criteria for Skilled Therapy Interventions Met yes (P) -LS Recommendations Therapy Frequency (FINANCIAL INSTITUTION PRESIDENT SLC) 5 days per week (P) -LS Predicted Duration Therapy Intervention (Days) 2 weeks (P) -LS User Alvarez (r) = Recorded By, (t) = Taken By, (c) = Cosigned By Initials Name Effective Dates LS Roxanne Travis, Speech Therapy Student 05/01/25 - EDUCATION The patient has been educated in the following areas: Cognitive Impairment Communication Impairment Dysphagia (Swallowing Impairment) Oral Care/Hydration. FINANCIAL INSTITUTION PRESIDENT GOALS Row Name 06/07/25 1330 Patient will demonstrate functional communication skills for return to discharge environment [place] Independently (P) -LS Time frame 2 weeks (P) -LS Progress/Outcomes new goal (P) -LS FINANCIAL INSTITUTION PRESIDENT Diagnostic Treatment Patient will participate in further assessment in the following areas higher- level cognitive-linguistic;motor speech;clarification of baseline cognitive communication status (P) -LS Time Frame (Diagnostic) 1 week (P) -LS Progress/Outcomes (Additional Goal 1, FINANCIAL INSTITUTION PRESIDENT) new goal (P) -LS User Alvarez (r) = Recorded By, (t) = Taken By, (c) = Cosigned By Initials Name Provider Type LS Roxanne Travis, Speech Therapy Student FINANCIAL INSTITUTION PRESIDENT Student Time Calculation: Time Calculation- FINANCIAL INSTITUTION PRESIDENT Row Name 06/07/25 1430 Time Calculation- FINANCIAL INSTITUTION PRESIDENT FINANCIAL INSTITUTION PRESIDENT Start Time 1330 (P) -LS FINANCIAL INSTITUTION PRESIDENT Received On 06/07/25 (P) -LS Untimed Charges 80737-ER Eval Speech and Production w/ Language Minutes 35 (P) -LS 69972-BE Eval Oral Pharyng Swallow Minutes 30 (P) -LS Total Minutes Untimed Charges Total Minutes 65 (P) -LS Total Minutes 65 (P) -LS User Alvarez (r) = Recorded By, (t) = Taken By, (c) = Cosigned By Initials Name Provider Type LS Roxanne Travis, Speech Therapy Student FINANCIAL INSTITUTION PRESIDENT Student Therapy Charges for Today Code Description Service Date Service Provider Modifiers Qty [id number] HC ST EVAL SPEECH AND PROD W LANG 3 06/07/2025 Roxanne Travis, Speech Therapy StudentGN, KX [id number] EVAL ORAL PHARYNG SWALLOW 2 06/07/2025 Roxanne Travis, Speech Therapy Student GN, KX 1 Roxanne N Stearms, Speech Therapy Student 06/07/2025 Cosigned by Batsheva Spears MS CCC-FINANCIAL INSTITUTION PRESIDENT at 06/07/2025 3:27 PM EDT Associated attestation - Batsheva Spears MS CCC-FINANCIAL INSTITUTION PRESIDENT - 06/07/2025 3:27 PM EDT Batsheva Spears MS CCC-FINANCIAL INSTITUTION PRESIDENT * Case Management/Social Work - Tesha Coelho RN - 06/07/2025 11:14 AM EDT Images from the original note were not included. Discharge Planning Assessment [facility] Patient Name: Alexa Fuentes Today's Date: 06/07/2025 Admit Date: 06/06/2025 Plan: IDP Discharge Needs Assessment Row Name 06/07/25 1105 Living Environment People in Home facility resident [...] bedside duringbedside rounding. Pt resides LTC at [facility] for the last approx 1 yr. Spoke with Tenisha in admissions and pt is able to return and has bed hold. Pt requires lift into and is dependent with ADL's. Is transported via [facility] to [facility] for HD on MWF and picker / packer time is 0815. Meds and PCP are pro vided by facility. Pharmacy updated in [facility]. Pt will return to facility when medically appropriate and will probably require EMS transport. CM will cont to follow for discharge planning. Final Discharge Disposition Code 04 - intermediate care facility Continued Care and Services - Admitted Since 06/06/2025 Destination Coordination complete. Service Provider Request Status Services Address Phone Fax Patient Preferred [facility] Selected Intermediate Care [facility] [place] [id number] -- Demographic Summary Row Name 06/07/25 1103 General Information Admission Type inpatient Arrived From [facility] Referral Source admission list Reason for Consult decision-making Preferred Language Bel[place] Functional Status Row Name 06/07/25 1104 Functional [...] No documentation. Patient Forms No documentation. Tesha Coelho, RN documented in this encounter Plan of Treatment Upcoming Encounters Date Type Department Care Team (Late st Contact Info) Description 5 12:30 PM EST Pre-Admission Testing PSYCHIATRIC PREADMISSION T [address] [place] [address] 5 3:20 PM EST Hospital Encounter PSYCHIATRIC ENDO SUITES [address] [place] [address] Arnel Bell MD [address] [facility] [place], [place] [id number] 5 3:20 PM EST - 4:02 PM EST Surgery PSYCHIATRIC ENDO SUITES [address] [place] [id number] Arnel Bell MD [address] [id number] ENDOSCOPIC RETROGRADE CHOLANGIOPANCREATOGRAPHY [00820 (CPT )] Scheduled Orders Name Type Priority Associated Diagnoses Orde r Schedule Legionella Antigen, Urine - Urine, Urine, Clean Catch Microbiology Routine Once for 1 Occurrences starting 06/08/2025 until 06/08/2025 S. Pneumo Ag Urine or CSF - Urine, Urine, Clean Catch Microbiology Routine Once for 1 Occurrences starting 06/08/2025 until 06/08/2025 Scheduled Procedures Name Priority Associated Diagnoses Date/Ti md ENDOSCOPIC RETROGRADE CHOLANGIOPANCREATOGRAPHY Encounter for removal of biliary stent 08/16/2025 3:20 PM EST Scheduled Referrals Name Type Priority Associated Diagnoses Order Schedule Ambulatory Referral to Neurology Outpatient Referral Routine Occipital stroke Ordered: 06/07/2025 Ambulatory referral for Screening EGD Outpatient Referral Routine Choledocholithiasis Ordered: 06/08/2025 documented as of this encounter Procedures Procedure Name Priority Date/Time Associated Diagnosis Comments RESPIRATORY PANEL PCR W/ COVID-19 (SARS-COV-2), TIER LIFT TRUCK 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 SWAB IN UTM/VTP, 2 HR TAT Routine [...] EXAM Routine 06/09/2025 12:00 PM EDT Cholecystitis SCANNED - TELEMETRY 06/09/2025 7 :36 AM EDT MRSA DNA PROBE Routine 06/08/2025 7:05 PM EDT HEPATITIS PANEL, ACUTE Routine 2:52 PM EDT [place] ERCP PANCREATIC AND BILIARY DUCTS Routine 06/08/2025 12:51 PM EDT [place] ERCP DX COLLECTION SPECIMEN BRUSHING/WASHING 06/08/2025 10:46 AM EDT ERCP 06/08/2025 10:27 AM EDT ECG 12-LEAD Routine 06/08/2025 9:17 AM EDT CBC (NO DIFF) Routine 06/08/2025 8:48 AM EDT COMPREHENSIVE METABOLIC PANEL Routine 06/08/2025 8:48 AM EDT WOUND OSTOMY EVAL AND TREAT Routine 06/07/2025 6:11 PM EDT FINANCIAL INSTITUTION PRESIDENT FEES FIBEROPTIC ENDO EVAL SWALLOW Routine 06/07/2025 [...] AM EDT HEMOGLOBIN A1C WITH MPG Urgent 06/07/2025 1:05 AM EDT TSH RFX ON ABNORMAL [...] * Respiratory Panel PCR w/COVID-19(SARS-CoV-2) ZHANE/SALAZAR/MELY/PAD/COR/GELY In-House, TIER LIFT TRUCK OPERATOR Swab in UTM/VTM, 2 HR TAT - Swab, Nasopharynx (06/14/2025 7:13 AM EDT) [facility] ADENOVIRUS, PCR Not Detected Not Detected BIOFIRE TORCH 06/14/2025 8:15 AM EDT PSYCHIATRIC LABORATORY Coronavirus 229E Not Detected Not Detected BIOFIRE TORCH 06/14/2025 8:15 AM EDT PSYCHIATRIC LABORATORY Coronavirus HKU1 Not Detected Not Detected BIOFIRE TORCH 06/14/2025 8:15 AM EDT PSYCHIATRIC LABORATORY Coronavirus NL63 Not Detected Not Detected BIOFIRE TORCH 06/14/2025 8:15 AM EDT PSYCHIATRIC LABORATORY Coronavirus OC43 Not Detected Not Detected BIOFIRE TORCH 06/14/2025 8:15 AM EDT PSYCHIATRIC LABORATORY COVID19 Not Detected Not Detected - Ref. Range BIOFIRE TORCH 06/14/2025 8:15 AM EDT PS[facility]IATRIC LAB[facility]ATORY Human Metapneumovirus Not Detected Not Detected BIOFIRE TOR 06/14/2025 8:15 AM EDT PSYCHIATRIC LABORATORY Human Rhinovirus/Enterov irus Not Detected Not Detected BIOFIRE TOR 06/14/2025 8:15 AM EDT PS[facility]CHIATRIC LABORATORY Influenza A PCR Not Detected Not Detected BIOFIRE TOR 06/14/2025 8:15 AM EDT PS[facility]CHIAT[facility]IC LABORATORY Influenza B PCR Not Detected Not Detected BIOFIRE TORCH 06/14/2025 8:15 AM EDT PS[facility]CHIATRIC LABORATORY Parainfluenza Virus 1 Not Detected Not Detected BIOFIRE TORCH 06/14/2025 8:15 AM EDT PSYCHIATRIC LABORATORY Parainfluenza Virus 2 Not Detected Not Detected BIOFIRE TORCH 06/14/2025 8:15 AM EDT PSYCHIATRIC LABORATORY Parainfluenza Virus 3 Not Detected Not Detected BIOFIRE TORCH 06/14/2025 8:15 AM EDT PSYCHIATRIC LABORATORY Parainfluenza Virus 4 Not Detected Not Detected BIOFIRE TORCH 06/14/2025 8:15 AM EDT PSYCHIATRIC LABORATORY RSV, PCR Not Detected Not Detected BIOFIRE TORCH 06/14/2025 8:15 AM EDT PS[facility]AT[facility] LAB[facility]ORY Bordetella pertussis pcr Not Detected Not Detected BIOFIRE TORCH 06/14/2025 8:15 AM EDT PS[facility]IAT[facility]IC LABORATORY Bordetella parapertussis PCR Not Detected Not Detected BIOFIRE TORCH 06/14/2025 8:15 AM EDT PS[facility]IAT[facility]IC LABORATORY Chlamydophila pneumoniae PCR Not Detected Not Detected BIOFIRE TORCH 06/14/2025 8:15 AM EDT PS[facility]IAT[facility]IC LAB[facility]ORY Mycoplasma pneumo by PCR Not Detected Not Detected BIOFIRE TOR 06/14/2025 8:15 AM EDT PS[facility]IAT[facility]IC LABORATORY Swab Nasopharyngeal structure / Unknown Collection / Unknown 06/14/2025 7:13 AM EDT 06/14/2025 7:13 AM EDT [facility] LABORATORY - 06/14/2025 8:15 AM EDT In [...] MD MICROBIOLOGY - GENERAL ORDERABLES Final Result PSYCHIATRIC LABORATORY
[address] [place] [address], * POC Glucose Once (06/11/2025 8:27 PM EDT) [facility] Glucose 84 70 - 130 mg/dL 06/11/2025 8:29 PM EDT PSYCHIATRIC LABORATORY Comment:Serial Number: [id number]: [id number] Blood 06/11/2025 8:27 PM EDT 06/11/2025 8:29 PM EDT Ivonne Ralph MD POINT OF CARE TEST ORDERABLES Final Result PSYCHIATRIC LABORATORY
[address] [id number], * JARED W/ COMPLETE DOPPLER, COLOR AND 3D (06/11/2025 1:59 PM EDT) Pathologist [facility] CV ECHO SHUNT ASSESSMENT PERFORMED [...] - 8.5 g/dL 06/11/2025 9:27 AM EDT PSYCHIATRIC LABORATORY Albumin 3.1(L) 3.5 - 5.2 g/dL 06/11/2025 9:27 AM EDT PS[facility]AT[facility] LAB[facility]ATORY ALT (SGPT) 455(H) 1 - 41 U/L 06/11/2025 9:27 AM EDT PS[facility] LAB[facility] AST (SGOT) 168(H) 1 - 40 U/L 06/11/2025 9:27 AM EDT PSYCHIATRIC LABORATORY Alkaline Phosphatase 112 39 - 117 U/L 06/11/2025 9:27 AM EDT PS[facility]IAT[facility]IC LAB[facility]ATORY Total Bilirubin 0.4 0.0 - 1.2 mg/dL 06/11/2025 9:27 AM EDT PS[facility]AT[facility]IC LAB[facility]ORY Bilirubin, Direct 0.2 0.0 - 0.3 mg/dL 06/11/2025 9:27 AM EDT PS[facility]IAT[facility]IC LABORATORY Bilirubin, Indirect 0.2 mg/dL 06/11/2025 9:27 AM EDT [facility]AT[facility] LAB[facility] Blood Line / Unknown 06/11/2025 8: 10 AM EDT 06/11/2025 8:10 AM EDT us Ivonne Ralph MD LAB BLOOD ORDE RABCAMI Final Result PSYCHIATRIC LABORATORY
[address] [place] [address], * Magnesium (06/11/2025 8:10 AM EDT) Magnesium 2.2 1.6 - 2.4 mg/dL 06/11/2025 8:45 AM EDT PSYCHIATRIC LABORATORY Blood Line / Unknown 06/11/2025 8: 10 AM EDT 06/11/2025 8:10 AM EDT us Ivonne Ralph MD LAB BLOOD ORDE RABLES Final Result PSYCHIATRIC LABORATORY
[address] [place] [address], * (ABNORMAL) CBC (No Diff) (06/11/2025 8:10 AM EDT) WBC 11.08(H) 3.40 - 10.80 10*3/mm3 06/11/2025 8:19 AM EDT PS[facility]IATRIC LABORATORY RBC 2.75(L) 4.14 - 5.80 10*6/mm3 06/11/2025 8:19 AM EDT PSYCHIATRIC LABORATORY Hemoglobin 8.5(L) 13.0 - 17.7 g/dL 06/11/2025 8:19 AM EDT PS[facility]IAT[facility] LABOR[facility]ORY Hematocrit 27.2(L) 37.5 - 51.0 % 06/11/2025 8:19 AM EDT PS[facility]IAT[facility] LABOR[facility]ORY MCV 98.9(H) 79.0 - 97.0 fL 06/11/2025 8:19 AM EDT PS[facility]IAT[facility] LABORATORY MCH 30.9 26.6 - 33.0 pg 06/11/2025 8:19 AM EDT PS[facility]IAT[facility] LABOR[facility]ORY MCHC 31.3(L) 31.5 - 35.7 g/dL 06/11/2025 8:19 AM EDT PS[facility] LAB[facility]ORY RDW 15.5(H) 12.3 - 15.4 % 06/11/2025 8:19 AM EDT PS[facility] LAB[facility]ORY RDW-SD 55.2(H) 37.0 - 54.0 fl 06/11/2025 8:19 AM EDT PS[facility] LAB[facility]ORY MPV 10.1 6.0 - 12.0 fL 06/11/2025 8:19 AM EDT [facility]AT[facility] LAB[facility]ORY Platelets 206 140 - 450 10*3/mm3 06/11/2025 8:19 AM EDT PS[facility]IAT[facility] LABORATORY Blood Line / Unknown 06/11/2025 8: 10 AM EDT 06/11/2025 8:10 AM EDT Ivonne Ralph MD LAB BLOOD ORDE [facility] Final Result PSYCHIATRIC LABORATORY
[address] [place] [address], * (ABNORMAL) Basic Metabolic Panel (06/11/2025 8:10 AM EDT) Glucose 98 65 - 99 mg/dL 06/11/2025 8:45 AM EDT PS[facility]IAT[facility] LABORATORY BUN 66.9(H) 8.0 - 23.0 mg/dL 06/11/2025 8:45 AM EDT PS[facility]CHIAT[facility]IC LABORATORY Creatinine 7.96(H) 0.76 - 1.27 mg/dL 06/11/2025 8:45 AM EDT PS[facility]IAT[facility] LAB[facility] Sodium 135(L) 136 - 145 mmol/L 06/11/2025 8:45 AM EDT [facility] LAB[facility] Potassium 5.5(H) 3.5 - 5.2 mmol/L 06/11/2025 8:45 AM EDT PS[facility]CHIATRIC LABORATORY Chloride 95(L) 98 - 107 mmol/L 06/11/2025 8:45 AM EDT [facility] LAB[facility] CO2 22.9 22.0 - 29.0 mmol/L 06/11/2025 8:45 AM EDT [facility] LAB[facility] Calcium 8.2(L) 8.6 - 10.5 mg/dL 06/11/2025 8:45 AM EDT PS[facility]IAT[facility] LABORATORY BUN/Creatinine Ratio 8.4 7.0 - 25.0 06/11/2025 8:45 AM EDT PS[facility]IAT[facility] LAB[facility]ORY Anion Gap 17.1(H) 5.0 - 15.0 mmol/L 06/11/2025 8:45 AM EDT PSYCHIATRIC LABORATORY eGFR 6.5(L) >60.0 mL/min/1.7 3 06/11/2025 8:45 AM [facility] LABORATORY Blood Line / Unknown 06/11/2025 8: 10 AM EDT 06/11/2025 8:10 AM EDT Narrative PSYCHIATRIC LABORATORY - 06/11/2025 8:45 AM EDT GFR [...] factor us Ivonne Ralph MD LAB BLOOD ORDGerman KONG Final Result PSYCHIATRIC LABORATORY
[address] [place] [address], * CT Soft Tissue Neck Without Contrast [...] MD 06/11/2025 7:44 AM EDT Workstation ID: [id number] Narrative 06/11/2025 7:[address] SOFT [...] MD 06/11/2025 7:44 AM EDT Workstation ID: [id number] Ivonne Ralph MD IMG CT ORDERAB LES Final Result * (ABNORMAL) Phosphorus (06/10/2025 3:22 PM EDT) Pathologist [facility] Phosphorus 8.9(H) 2.5 - 4.5 mg/dL 06/10/2025 3:57 PM EDT PSYCHIATRIC LABORATORY Blood Venipuncture / Unknown 06/10/2025 3:22 PM EDT 06/10/2025 3:28 PM EDT Rehan Lincoln MD LAB BLOOD ORDERABLES Final R esult PSYCHIATRIC LABORATORY
[address] [place] [address], * (ABNORMAL) Comprehensive Metabolic Panel (06/10/2025 3:22 PM EDT) Glucose 120(H) 65 - 99 mg/dL 06/10/2025 3:57 PM EDT PSYCHIATRIC LABORATORY BUN 60.9(H) 8.0 - 23.0 mg/dL 06/10/2025 3:57 PM [facility] Creatinine 7.36(H) 0.76 - 1.27 mg/dL 06/10/2025 3:57 PM [facility] Sodium 134(L) 136 - 145 mmol/L 06/10/2025 3:57 PM [facility] Potassium 5.3(H) 3.5 - 5.2 mmol/L 06/10/2025 3:57 PM [facility] Chloride 94(L) 98 - 107 mmol/L 06/10/2025 3:57 PM [facility] CO2 21.2(L) 22.0 - 29.0 mmol/L 06/10/2025 3:57 PM [facility] Calcium 8.7 8.6 - 10.5 mg/dL 06/10/2025 3:57 PM [facility] Total Protein 5.8(L) 6.0 - 8.5 g/dL 06/10/2025 3:57 PM [facility] Albumin 3.2(L) 3.5 - 5.2 g/dL 06/10/2025 3:57 PM [facility] ALT (SGPT) 558(H) 1 - 41 U/L 06/10/2025 3:57 PM [facility] AST (SGOT) 226(H) 1 - 40 U/L 06/10/2025 3:57 PM [facility] Alkaline Phosphatase 118(H) 39 - 117 U/L 06/10/2025 3:57 PM [facility] Total Bilirubin 0.4 0.0 - 1.2 mg/dL 06/10/2025 3:57 PM [facility] Globulin 2.6 gm/dL 06/10/2025 3:57 PM [facility] Comment:Calculated Result A/G Ratio 1.2 g/dL 06/10/2025 3:57 PM [facility] BUN/Creatinine Ratio 8.3 7.0 - 25.0 06/10/2025 3:57 PM [facility] Anion Gap 18.8(H) 5.0 - 15.0 mmol/L 06/10/2025 3:57 PM EDT PSYCHIATRIC LABORATORY eGFR 7.1(L) >60.0 mL/min/1.7 3 06/10/2025 3:57 PM EDT PSYCHIATRIC LABORATORY Blood Venipuncture / Unknown 06/10/2025 3:22 PM EDT 06/10/2025 3:28 PM EDT [facility] LABORATORY - 06/10/2025 3:57 PM EDT GFR [...] Guerrero MD LAB BLOOD ORDERABLES Final Result PSYCHIATRIC LABORATORY
[address] [place] [address], * (ABNORMAL) CBC (No Diff) (06/10/2025 3:22 PM EDT) WBC 11.79(H) 3.40 - 10.80 10*3/mm3 06/10/2025 3:30 PM EDT PS[facility] LAB[facility]ORY RBC 2.83(L) 4.14 - 5.80 10*6/mm3 06/10/2025 3:30 PM EDT PS[facility]IAT[facility] LAB[facility]ORY Hemoglobin 8.9(L) 13.0 - 17.7 g/dL 06/10/2025 3:30 PM EDT PS[facility]IATRIC LAB[facility]ORY Hematocrit 28.5(L) 37.5 - 51.0 % 06/10[facility]2025 3:[facility] MCV 100.7(H) 79.0 - 97.0 fL 06/10/2025 3:30 PM EDT PSYCHIATRIC LABORATORY MCH 31.4 26.6 - 33.0 pg 06/10/2025 3:30 PM EDT PS[facility] LAB[facility]ORY MCHC 31.2(L) 31.5 - 35.7 g/dL 06/10/2025 3:30 PM EDT PS[facility]IAT[facility]IC LAB[facility]ATORY RDW 15.4 12.3 - 15.4 % 06/10/2025 3:30 PM EDT PS[facility] LAB[facility]ATORY RDW-SD 56.4(H) 37.0 - 54.0 fl 06/10/2025 3:30 PM EDT PS[facility] LAB[facility]ORY MPV 10.7 6.0 - 12.0 fL 06/10/2025 3:30 PM EDT PS[facility] LAB[facility] Platelets 179 140 - 450 10*3/mm3 06/10/2025 3:30 PM EDT PS[facility]IAT[facility] LABORATORY Blood Venipuncture / Unknown 06/10/2025 3:22 PM EDT 06/10/2025 3:28 PM EDT us Charles Guerrero MD LAB BLOOD ORDERABLES Final Result Performing Organization Address City/[facility]/ZIP Co de Phone Number PSYCHIATRIC LABORATORY
[address] [place] [address], [place] [phone] * Magnesium (06/09/2025 2:26 PM EDT) Magnesium 2.0 1.6 - 2.4 mg/dL 06/09/2025 3:28 PM EDT PSYCHIATRIC LABORATORY Blood Venipuncture / Unknown 06/09/2025 2:26 PM EDT 06/09/2025 2:59 PM EDT us Charles Guerrero MD LAB BLOOD ORDERABLES Final Result PSYCHIATRIC LABORATORY
[address] [place] [address], * Tissue Pathology Exam (06/09/2025 12:00 PM EDT) Case Report Surgical Pathology Report Case: [id number] Authorizing Provider: Charles Guerrero MD Collected: 06/09/2025 12:00 PM Ordering Location: PSYCHIATRIC Received: 06/11/2025 06:27 AM OR Pathologist: Bryanna Morales MD Specimen: Gallbladder 06/12/2025 10:36 AM EDT PSYCHIATRIC LABORATORY Clinical Information Cholecystitis Choledocholithiasi s 06/12/2025 10:36 AM EDT PSYCHIATRIC LABORATORY Final Diagnosis Gallbladder, cholecystectomy: Acute and chronic cholecystitis and cholelithiasis 1 benign lymph node 06/12/2025 10:36 AM EDT PSYCHIATRIC LABORATORY at 1036 EDT Gross Description 1. [...] lesions or masses are grossly identified, and business development representative sections from the fundus, body, and neck to include the cystic duct margin (en face) and possible lymph node (intact) are submitted in cassette 1A. AKG 06/12/2025 10:36 AM EDT PSYCHIATRIC LABORATORY Microscopic Description The slides are reviewed and demonstrate histopathologic features supporting the above rendered diagnosis. 06/12/2025 10:36 AM EDT PSYCHIATRIC LABORATORY Tissue Gallbladder structure / Unknown 06/09/2025 12:00 PM EDT 06/11/2025 6:27 AM EDT Charles Guerrero MD PATHOLOGY/CYTOLOGY ORDERAB LES Final Result Performing Organization Address [facility]/ZIP Co de Phone Number PSYCHIATRIC LABORATORY
[address] [place] [address], * Telemetry Scan (06/09/2025 7:36 AM EDT) [facility] ECG ORDERABLES Final Result * (ABNORMAL) MRSA Screen, PCR (Inpatient) - Swab, Nares (06/08/2025 7:05 PM EDT) Pathologist [facility] MRSA PCR Positive(A ) Negative CEPHEID GENEXPERT 06/08/2025 9:52 PM EDT [facility] Swab Structure of anterior naris / Unknown Collection / Unknown 06/08/2025 7:05 PM EDT 06/08/2025 7:25 PM EDT Narrative PSYCHIATRIC LABORATORY - 06/08/2025 9:52 PM EDT The negative predictive value of this diagnostic test is high and should only be used to consider de-escalating anti-MRSA therapy. A positive result may indicate colonization with MRSA and must be correlated clinically. Ivonne Ralph MD MICROBIOLOGY - GENERAL ORDERABLES Final Result Performing Organization Address [facility]/ZIP Co de Phone Number PSYCHIATRIC LABORATORY
[address] [place] [address], * Hepatitis Panel, Acute (06/08/2025 2:52 PM EDT) Pathologist [facility] Hepatitis B Surface Ag Non-Reacti ve Non-Reacti ve 06/08/2025 3:43 PM EDT PSYCHIATRIC LABORATORY Hep A IgM Non-Reacti ve Non-Reacti ve 06/08/2025 3:43 PM EDT PSYCHIAT[facility]IC LAB[facility]ORY Hep B C IgM Non-Reacti ve Non-Reacti ve 06/08/2025 3:43 PM EDT PSYCHIATRIC LABORATORY Hepatitis C Ab Non-Reacti ve Non-Reacti ve 06/08/2025 3:43 PM EDT PSYCHIAT[facility] LAB[facility]ORY Blood Line / Unknown 06/08/2025 2: 52 PM EDT 06/08/2025 3:00 PM EDT Narrative PSYCHIATRIC LABORATORY - 06/08/2025 3:43 PM EDT Results may be falsely decreased if patient taking Biotin. us Ivonne Ralph MD LAB BLOOD ORDGerman KONG Final Result PSYCHIATRIC LABORATORY
[address] [place] [address], * [place] ERCP pancreatic and biliary ducts (06/08/2025 12:51 PM EDT) Anatomical Region Laterality Modality Body Radio Fluoroscop y 06/08/2025 3:31 PM EDT Impressions 06/08/2025 3:48 PM EDT Impression: Fluoroscopy demonstrates filling of the bile ducts. Please see procedure report for full findings. Electronically Signed: Migue Mcfarlane MD 06/08/2025 3:48 PM EDT Workstation ID: [id number] Narrative 06/08/2025 3:48 PM EDT [place] ERCP PANCREATIC AND BILIARY DUCTS Date of Exam: 06/08/2025 10:49 AM EDT Indication: ENDOSCOPIC RETROGRADE CHOLANGIOPANCREATOGRAPHY. Comparison: None available. Technique: A series of radiographic digital spot films were obtained in conjunction with an endoscopic catheterization of the biliary and pancreatic ductal system, performed by the tire manager. Fluoroscopic Time: 5 minutes 57 seconds Number [...] biliary andpancreatic ductal system, performed by the tire manager. Fluoroscopic Time: 5 minutes 57 seconds Number of Images: 10 Findings: Fluoroscopy demonstrates filling of the bile ducts. IMPRESSION: Impression: Fluoroscopy demonstrates filling of the bile ducts. Please see procedurereport for full findings. Electronically Signed: Migue Mcfarlane MD 06/08/2025 3:48 PM EDT Workstation ID: [id number] Kishore Foote MD IMG FLUOROSCOPY ORDERABLES Final [...] Referred By: RENARD Confirmed By: Felipe Toro Tom Dover MD ECG ORDERABLES Final Result ECG * (ABNORMAL) CBC (No Diff) (06/08/2025 8:48 AM EDT) WBC 10.13 3.40 - 10.80 10*3/mm3 06/08/2025 10:22 AM EDT PS[facility]IC LAB[facility]ATORY RBC 2.80(L) 4.14 - 5.80 10*6/mm3 06/08/2025 10:22 AM EDT [facility] LAB[facility]ORY Hemoglobin 8.6(L) 13.0 - 17.7 g/dL 06/08/2025 10:22 AM EDT [facility] LAB[facility] Hematocrit 27.7(L) 37.5 - 51.0 % 06/08/2025 10:22 AM EDT [facility] LAB[facility] MCV 98.9(H) 79.0 - 97.0 fL 06/08/2025 10:22 AM EDT [facility] LAB[facility] MCH 30.7 26.6 - 33.0 pg 06/08/2025 10:22 AM EDT [facility] LAB[facility] MCHC 31.0(L) 31.5 - 35.7 g/dL 06/08/2025 10:22 AM EDT [facility] LAB[facility]ORY RDW 15.5(H) 12.3 - 15.4 % 06/08/2025 10:22 AM EDT [facility] LAB[facility]ORY RDW-SD 55.7(H) 37.0 - 54.0 fl 06/08/2025 10:22 AM EDT [facility] LAB[facility] MPV 10.6 6.0 - 12.0 fL 06/08/2025 10:22 AM EDT [facility] LAB[facility] Platelets 195 140 - 450 10*3/mm3 06/08/2025 10:22 AM EDT [facility] LAB[facility] Blood Venipuncture / Unknown 06/08/2025 8:48 AM EDT 06/08/2025 10:07 AM EDT Krystal Orozco MD LAB BLOOD ORDERABLES Final Re sult PSYCHIATRIC LABORATORY
[address] [place] [address], * (ABNORMAL) Comprehensive Metabolic Panel (06/08/2025 8:48 AM EDT) Glucose 66 65 - 99 mg/dL 06/08/2025 11:42 AM EDT [facility]AT[facility] LAB[facility]ORY BUN 80.3(H) 8.0 - 23.0 mg/dL 06/08/2025 11:42 AM EDT [facility]AT[facility] LAB[facility]ORY Creatinine 8.13(H) 0.76 - 1.27 mg/dL 06/08/2025 11:42 AM EDT PS[facility]IAT[facility]IC LAB[facility]ATORY Sodium 137 136 - 145 mmol/L 06/08/2025 11:42 AM EDT [facility]IAT[facility] LAB[facility]ORY Potassium 5.1 3.5 - 5.2 mmol/L 06/08/2025 11:42 AM EDT [facility]AT[facility] LAB[facility]ORY Chloride 93(L) 98 - 107 mmol/L 06/08/2025 11:42 AM EDT [facility] LAB[facility] CO2 24.1 22.0 - 29.0 mmol/L 06/08/2025 11:42 AM EDT PS[facility]IAT[facility]IC LAB[facility]ATORY Calcium 8.8 8.6 - 10.5 mg/dL 06/08/2025 11:42 AM EDT PS[facility]AT[facility] LAB[facility] Total Protein 5.9(L) 6.0 - 8.5 g/dL 06/08/2025 11:42 AM EDT PS[facility]IAT[facility]IC LABOR[facility]ORY Albumin 2.8(L) 3.5 - 5.2 g/dL 06/08/2025 11:42 AM [facility] ALT (SGPT) 982(H) 1 - 41 U/L 06/08/2025 11:42 AM [facility] AST (SGOT) 730(H) 1 - 40 U/L 06/08/2025 11:42 AM [facility] Alkaline Phosphatase 111 39 - 117 U/L 06/08/2025 11:42 AM [facility] Total Bilirubin 0.6 0.0 - 1.2 mg/dL 06/08/2025 11:42 AM [facility] Globulin 3.1 gm/dL 06/08/2025 11:42 AM [facility] Comment:Calculated Result A/G Ratio 0.9 g/dL 06/08/2025 11:42 AM [facility] BUN/Creatinine Ratio 9.9 7.0 - 25.0 06/08/2025 11:42 AM [facility] Anion Gap 19.9(H) 5.0 - 15.0 mmol/L 06/08/2025 11:42 AM [facility] eGFR 6.3(L) >60.0 mL/min/1.7 3 06/08/2025 11:42 AM [facility] Blood Venipuncture / Unknown 06/08/2025 8:48 AM EDT 06/08/2025 9:42 AM [facility] - 06/08/2025 11:42 AM EDT GFR [...] does not include race as a factor Krystal Orozco MD LAB BLOOD ORDERABLES Final Re sult [facility]IATRIC LABOR[facility]ORY
[address] [place] [address], [place] [phone] * [facility] PRESIDENT FEES - Fiberoptic Endo Eval Swallow (06/07/2025 4:59 PM EDT) Narrative SYSTEMGENERATED, DOCUMENTATION - 06/07/2025 4:59 PM EDT This procedure was auto-finalized with no dictation required. Krystal Orozco MD [facility] PRESIDENT ORDERABLES Final Result * DUPLEX CAROTID BILATERAL [...] body habitus, patient positioning and patient respirations/coughing. us Hanna Rangel APRN CV VASCULAR ORDERABLES Fi nal Result * ECHO COMPLETE W/ DOPPLER AND COLOR FLOW (06/07/2025 3:44 PM EDT) [facility] EF(MOD-bp) 53.5 % LVIDd 5.7 cm LVIDs [...] of agitated saline was administered. Edita Guzman APRN CV ECHO ORDERABLES Final Result * MRI [...] MD 06/07/2025 10:26 AM EDT Workstation ID: [id number] Narrative 06/07/2025 10:26 AM EDT MRI ABDOMEN [...] hydronephrosis. No dilated bowel loops within the [id number]. No free fluid in the abdomen. No pathologically enlarged lymph nodes. No abdominal aortic aneurysm. Atherosclerosis. No body wall abnormality. Multilevel spondylosis. No acute or suspicious osseous abnormalities evident on this noncontrast exam. Procedure Note Preet Crowley MD - 06/07/2025 MRI ABDOMEN WO CONTRAST [...] No hydronephrosis. No dilated bowel loopswithin the [id number]. No free fluid in the abdomen. No pathologicallyenlarged lymph nodes. No abdominal aortic aneurysm. Atherosclerosis. Nobody wall abnormality. Multilevel spondylosis. No acute or suspicious osseous abnormalities evident on thisnoncontrast exam. IMPRESSION: Impression: Choledocholithiasis with a 7 mm stone in the lower common bile duct. Intraand extrahepatic biliary ductal dilatation with common bile duct [id number] mm. Correlate with serum bilirubin and consider ERCP. Cholelithiasis without evidence of acute cholecystitis. Left lower lobe consolidation with trace left pleural effusion, suggestiveof pneumonia. Chronic/ancillary findings as above. Electronically Signed: Preet Crowley MD 06/07/2025 10:26 AM EDT Workstation ID: [id number] [facility] MD IM MRI ORDERABLES Final Res [...] MD 06/07/2025 10:22 AM EDT Workstation ID: [id number] Narrative 06/07/2025 10:22 AM EDT MRI BRAIN [...] MD 06/07/2025 10:22 AM EDT Workstation ID: [id number] Edita Moctezuma Thomas [employer]PECT[employer] IMG MRI ORDERABLES Final Result * KIMANI AURIS PCR - Swab, Axilla Right, Axilla Left and Groin (06/07/2025 8:45 AM EDT) KIMANI A[facility]IS PCR ([facility]) Not Detected 06/08/2025 5:14 PM EDT [facility] Swab Entire skin of axilla / Unknown Collection / Unknown 06/07/2025 8:45 AM EDT 06/07/2025 8:52 AM EDT Krystal Orozco MD MICROBIOLOGY - GENERAL ORDERA BLES Final Result [facility] [address] [place] [address], [place] [phone] * Lactic Acid, Plasma (06/07/2025 6:03 AM EDT) Lactate 0.9 0.5 - 2.0 mmol/L 06/07/2025 6:43 AM EDT [facility] Comment:Falsely depressed re sults may occur on samples drawn from patients receiving N-Acetylcysteine (NAC) or Metamizole. Blood Venipuncture / Unknown 06/07/2025 6:03 AM EDT 06/07/2025 6:07 AM EDT Rolan Muro MD LAB BLOOD ORDERABLES Final R esult PSYCHIATRIC LABORATORY
[address] [place] [address], [place] [phone] * Blood Culture - Blood, Wrist, Left (06/07/2025 6:03 AM EDT) Blood Culture No growth at 5 days 06/12/2025 7:30 AM EDT PSYCHIATRIC LABORATORY Blood Structure of left wrist region / Unknown Venipuncture / Unknown 06/07/2025 6:03 AM EDT 06/07/2025 7:28 AM EDT [facility] LABORATORY - 06/12/2025 7:30 AM EDT Aerobic Bottle Only Less than seven (7) mL's of blood was collected. Insufficient quantity may yield false negative results. us Rolan Muro MD MICROBIOLOGY - GENERAL ORDER NOEL Final Result Performing Organization Address [facility] de Phone Number PSYCHIATRIC LABORATORY
[address] [place] [address], * Blood Culture - Blood, Wrist, Left (06/07/2025 6:01 AM EDT) Blood Culture No growth at 5 days 06/12/2025 7:30 AM EDT PSYCHIATRIC LABORATORY Blood Structure of left wrist region / Unknown Venipuncture / Unknown 06/07/2025 6:01 AM EDT 06/07/2025 7:26 AM EDT [facility] LABORATORY - 06/12/2025 7:30 AM EDT Aerobic Bottle Only Less than seven (7) mL's of blood was collected. Insufficient quantity may yield false negative results. Rolan Muro MD MICROBIOLOGY - GENERAL ORDER NOEL Final Result Performing Organization Address [facility] Co de Phone Number PSYCHIATRIC LABORATORY
[address] [place] [address], * POC Glucose Once (06/07/2025 5:29 AM EDT) Glucose 76 70 - 130 mg/dL 06/07/2025 5:31 AM EDT PSYCHIATRIC LABORATORY Comment:Serial Number: [id number]: [id number] Blood 06/07/2025 5:29 AM EDT 06/07/2025 5:31 AM EDT Rolan Muro MD POINT OF CARE TEST ORDERABLE S Final Result PSYCHIATRIC LABORATORY
[address] [place] [address], * Hemoglobin A1C With EMG (06/07/2025 1:05 AM EDT) Hemoglobin A1C 4.9 4.8 - 5.6 % 06/09/2025 12:08 AM EDT [facility] Comment: Prediabetes: 5.7 - 6.4 Diabetes: >6.4 Glycemic control for adults with diabetes: <7.0 Mean Bld Glu Estim. 94 mg/dL 06/09/2025 12:08 AM EDT [facility] Blood Line / Unknown 06/07/2025 1: 05 AM EDT 06/07/2025 6:05 AM EDT Narrative [facility] - 06/09/2025 12:08 AM EDT Performed at: [address] [place] [id number] Intensivist: Franklyn Rodriguez PhD, Phone: [phone] us Edita Guzman APRN LAB BLOOD ORDERABLE S Final Result [facility] [address] [place] [address], * TSH Rfx On Abnormal To Free T4 (06/07/2025 12:57 AM EDT) TSH 0.534 0.270 - 4.200 uIU/mL 06/07/2025 1:35 AM EDT PSYCHIATRIC LABORATORY Blood Venipuncture / Unknown 06/07/2025 12:57 AM EDT 06/07/2025 1:01 AM EDT Rolan Muro MD LAB BLOOD ORDERABLES Final R esult Performing Organization Address City/[facility]/ZIP Co de Phone Number PSYCHIATRIC LABORATORY
[address] [place] [address], * Magnesium (06/07/2025 12:57 AM EDT) Pathologist [facility] Magnesium 1.8 1.6 - 2.4 mg/dL 06/07/2025 1:35 AM EDT PSYCHIATRIC LABORATORY Blood Venipuncture / Unknown 06/07/2025 12:57 AM EDT 06/07/2025 1:01 AM EDT Rolan Muro MD LAB BLOOD ORDERABLES Final R esult Performing Organization Address City/[facility] de Phone Number PSYCHIATRIC LABORATORY
[address] [place] [address], * (ABNORMAL) CBC Auto Differential (06/07/2025 12:57 AM EDT) Pathologist [facility] WBC 18.26(H) 3.40 - 10.80 10*3/mm3 06/07/2025 1:04 AM EDT PSYCHIATRIC LABORATORY RBC 2.88(L) 4.14 - 5.80 10*6/mm3 06/07/2025 1:04 AM EDT PSYCHIATRIC LABORATORY Hemoglobin 9.0(L) 13.0 - 17.7 g/dL 06/07/2025 1:04 AM EDT PSYCHIATRIC LABORATORY Hematocrit 28.1(L) 37.5 - 51.0 % 06/07/2025 1:04 AM EDT PS[facility]IATRIC LABORATORY MCV 97.6(H) 79.0 - 97.0 fL 06/07/2025 1:04 AM EDT PSYCHIATRIC LABORATORY MCH 31.3 26.6 - 33.0 pg 06/07/2025 1:04 AM [facility] MCHC 32.0 31.5 - 35.7 g/dL 06/07/2025 1:04 AM [facility] RDW 15.7(H) 12.3 - 15.4 % 06/07/2025 1:04 AM [facility] RDW-SD 56.1(H) 37.0 - 54.0 fl 06/07/2025 1:04 AM [facility] MPV 12.4(H) 6.0 - 12.0 fL 06/07/2025 1:04 AM [facility] Platelets 120(L) 140 - 450 10*3/mm3 06/07/2025 1:04 AM [facility] Neutrophil % 84.7(H) 42.7 - 76.0 % 06/07/2025 1:04 AM [facility] Lymphocyte % 2.8(L) 19.6 - 45.3 % 06/07/2025 1:04 AM [facility] Monocyte % 7.5 5.0 - 12.0 % 06/07/2025 1:04 AM [facility] Eosinophil % 0.0(L) 0.3 - 6.2 % 06/07/2025 1:04 AM [facility] Basophil % 0.1 0.0 - 1.5 % 06/07/2025 1:04 AM [facility] Immature Grans % 4.9(H) 0.0 - 0.5 % 06/07/2025 1:04 AM [facility] Neutrophils, Absolute 15.45(H) 1.70 - 7.00 10*3/mm3 06/07/2025 1:04 AM [facility] Lymphocytes, Absolute 0.52(L) 0.70 - 3.10 10*3/mm3 06/07/2025 1:04 AM [facility] Monocytes, Absolute 1.37(H) 0.10 - 0.90 10*3/mm3 06/07/2025 1:04 AM EDT PSYCHIATRIC LABORATORY Eosinophils, Absolute 0.00 0.00 - 0.40 10*3/mm3 06/07/2025 1:04 AM EDT PSYCHIATRIC LABORATORY Basophils, Absolute 0.02 0.00 - 0.20 10*3/mm3 06/07/2025 1:04 AM EDT PSYCHIATRIC LABORATORY Immature Grans, Absolute 0.90(H) 0.00 - 0.05 10*3/mm3 06/07/2025 1:04 AM EDT PSYCHIATRIC LABORATORY nRBC 0.0 0.0 - 0.2 /100 WBC 06/07/2025 1:04 AM EDT PSYCHIATRIC LABORATORY Blood Venipuncture / Unknown 06/07/2025 12:57 AM EDT 06/07/2025 1:00 AM EDT Rolan Muro MD LAB BLOOD ORDERABLES Final R esult PSYCHIATRIC LABORATORY
[address] [place] [address], * (ABNORMAL) Comprehensive Metabolic Panel (06/07/2025 12:57 AM EDT) Glucose 77 65 - 99 mg/dL 06/07/2025 1:35 AM EDT PSYCHIATRIC LABORATORY BUN 52.4(H) 8.0 - 23.0 mg/dL 06/07/2025 1:35 AM EDT PSYCHIATRIC LABORATORY Creatinine 6.07(H) 0.76 - 1.27 mg/dL 06/07/2025 1:35 AM EDT PSYCHIATRIC LABORATORY Sodium 136 136 - 145 mmol/L 06/07/2025 1:35 AM EDT PSYCHIATRIC LABORATORY Potassium 5.0 3.5 - 5.2 mmol/L 06/07/2025 1:35 AM EDT PSYCHIATRIC LABORATORY Chloride 93(L) 98 - 107 mmol/L 06/07/2025 1:35 AM [facility] CO2 27.9 22.0 - 29.0 mmol/L 06/07/2025 1:35 AM [facility] Calcium 9.0 8.6 - 10.5 mg/dL 06/07/2025 1:35 AM [facility] Total Protein 6.1 6.0 - 8.5 g/dL 06/07/2025 1:35 AM [facility] Albumin 3.0(L) 3.5 - 5.2 g/dL 06/07/2025 1:35 AM [facility] ALT (SGPT) 652(H) 1 - 41 U/L 06/07/2025 1:35 AM [facility] AST (SGOT) 558(H) 1 - 40 U/L 06/07/2025 1:35 AM [facility] Alkaline Phosphatase 102 39 - 117 U/L 06/07/2025 1:35 AM [facility] Total Bilirubin 0.9 0.0 - 1.2 mg/dL 06/07/2025 1:35 AM [facility] Globulin 3.1 gm/dL 06/07/2025 1:35 AM [facility] Comment:Calculated Result A/G Ratio 1.0 g/dL 06/07/2025 1:35 AM [facility] BUN/Creatinine Ratio 8.6 7.0 - 25.0 06/07/2025 1:35 AM [facility] Anion Gap 15.1(H) 5.0 - 15.0 mmol/L 06/07/2025 1:35 AM [facility] eGFR 9.0(L) >60.0 mL/min/1.7 3 06/07/2025 1:35 AM [facility] Blood Venipuncture / Unknown 06/07/2025 12:57 AM EDT 06/07/2025 1:01 AM [facility] LABORATORY - 06/07/2025 1:35 AM EDT GFR [...] MD LAB BLOOD ORDERABLES Final R esult PSYCHIATRIC LABORATORY
[address] [place] [address], * (ABNORMAL) Lipid Panel (06/07/2025 12:57 AM EDT) Total Cholesterol 62 0 - 200 mg/dL 06/07/2025 1:35 AM EDT PSYCHIATRIC LABORATORY Triglycerides 58 0 - 150 mg/dL 06/07/2025 1:35 AM EDT PSYCHIATRIC LABORATORY HDL Cholesterol 33(L) 40 - 60 mg/dL 06/07/2025 1:35 AM EDT PSYCHIATRIC LABORATORY LDL Cholesterol 15 0 - 100 mg/dL 06/07/2025 1:35 AM EDT PSYCHIATRIC LABORATORY VLDL Cholesterol 14 5 - 40 mg/dL 06/07/2025 1:35 AM EDT PSYCHIATRIC LABORATORY LDL/HDL Ratio 0.53 06/07/2025 1:35 AM EDT PSYCHIATRIC LABORATORY Blood Venipuncture / Unknown 06/07/2025 12:57 AM EDT 06/07/2025 1:01 AM EDT [facility] LABORATORY - 06/07/2025 1:35 AM EDT Cholesterol [...] calculated using the NIH LDL-C calculation. Edita Guzman FREIGHT SERVICE INSPECTOR LAB BLOOD ORDERABLE S Final Result Performing Organization Address City/[facility]/ZIP Co de Phone Number PSYCHIATRIC LABORATORY
[address] [place] [address], * POC Glucose Once (06/06/2025 10:47 PM EDT) Glucose 80 70 - 130 mg/dL 06/06/2025 10:49 PM EDT PSYCHIATRIC LABORATORY Comment:Serial Number: [id number]: [id number] Blood 06/06/2025 10:4 7 PM EDT 06/06/2025 10:49 PM EDT Rolan Muro MD POINT OF CARE TEST ORDERABLE S Final Result Performing Organization Address City/[facility]/ZIP Co de Phone Number PSYCHIATRIC LABORATORY
[address] [place] [address], [place] [phone] * CT Outside Abd/Pelvis (06/06/2025 8:47 PM [...] sult documented in this encounter Visit Diagnoses Not on filedocumented in this encounter Admitting Diagnoses Diagnosis Occipital [...] Starting on Wed06/08/25 at 1500, Indications: Hemodialysis ProcedureIndications:Hemodialysis Procedure New Bag 06/08/2025 3:07 PM EDT 12.5 g amiodarone (PACERONE) tablet 200 mg 200 mg, [...] 06/07/25 at 0900, If patient fails dysphagia, MN option MUST be given. Do not exceed [...] 06/07/25 at 0900, If patient fails dysphagia, MN option MUST be given. Do not exceed [...] Electrolyte Replacement Protocol Algorithm to View Details guaiFENesin (MUCINEX) 12 hr tablet 600 mg 600 mg, Oral, Every 12 Hours Scheduled, First dose on Wed06/07/25 at 1330, Do not crush or chew [...] 12:09 PM EDT 2,000 Units HYDROmorphone (DILAUDID) injection 0.5 mg 0.5 mg, [...] BPA Driven Protocol [facility] Electrolyte Replacement Protocol Algorithm to View Details naloxone (NARCAN) injection 0.1 mg 0.1 mg, [...] Use if senna-docusate is ineffective, Starting on 06/06/25 at 2346, Use if no bowel movement after 12 hours. Mix in 6-8 ounces of water. Use 4-8 ounces of water, tea, or juice for each 17 gram dose. Given 06/13/2025 12:23 PM EDT 17 g Potassium Replacement - Follow Nurse / BPA Driven Protocol [facility] Electrolyte Replacement Protocol Algorithm to View Details [...] First dose on Betty 06/07/25 at 0045 Given 06/13/2025 1:28 PM EDT [...] Every 30 Minutes PRN, Congestion, Starting on 06/13/25 at 0329, ([facility]) Given 06/13/2025 4:15 AM EDT 2 sprays vancomycin (dosing per levels) Daily, 10 doses, First dose (after last modification) on Betty 06/14/25 at 0900, Last dose on 06/23/25 at 0900, Antimicrobial Indication: Bacteremia documented in this encounter Active and Recently Administered Medications Times are shown in EDT. Scheduled Medication Order 06/12/2025 06/13/2025 06/14/2025 amiodarone (PACERONE) tablet 200 mg 200 mg, Oral, 2 Times Daily, First dose on Betty 06/07/25 at 1315, Avoid grapefruit juice while taking this medication. 0836 (Given - Provider: Lita Smith RN)2026 [...] 06/07/25 at 0900, If patient fails dysphagia, MN option MUST be given. Do not exceed [...] 06/07/25 at 0900, If patient fails dysphagia, MN option MUST be given. Do not exceed [...] RN)2026 (Given - Provider: Jim Howell RN) 1342 (Hold - Provider: Lita Smith RN - Reason: Patient not available)2014 (Given - Provider: Jim Howell RN) 0945 (Given - Provider: Jai Zayas, HIEU) ipratropium-albuterol (DUO-NEB) nebulizer solution 3 mL (CANCELED) 3 mL, Nebulization, 4 Times Daily - RT, First dose on Betty 06/07/25 at 0830, Include Respiratory Treatment Education 0827 (Given - Provider: Lynn Castano, MEDICAL OBSERVER)1213 (Given - Provider: Lynn Castano, SARAH)1803 (Not [...] 0945 (Given - Provider: Jai Zayas RN) sodium chloride 0.9 % flush 10 mL 10 mL, Intravenous, Every 12 Hours Scheduled, First dose on Wed06/06/25 at 2130 0837 (Given - Provider: Lita Smith, RN)2035 (Canceled Entry - Provider: Jim Howell RN) 1328 (Given - Provider: Lita Smith, RN)2300 (Canceled Entry - Provider: Jim Howell RN) 0949 (Canceled Entry - Provider: Jai Zayas RN) sodium chloride 0.9 % flush 10 mL 10 mL, Intravenous, Every 12 Hours Scheduled, First dose on Betty 06/07/25 at 0045 0835 (Given - Provider: Lita Smith, HIEU)2035 (Canceled Entry - Provider: Jim Howell RN) 132 (Given - Provider: Lita Smith RN)2300 (Canceled [...] = Pain Score of 7-10, CPOT 5-8 [MEEAN] Do not exceed 4 grams of acetaminophen [...] BPA Driven Protocol [facility] Electrolyte Replacement Protocol Algorithm to View Details [...] PRN, Congestion, Starting on Wed06/13/25 at 0329, ([facility]) 0415 (Given - Provider: Jim Howell, HIEU) Linked Groups Order Group 1: aspirin chewable tablet 81 mgJump to med 81 mg, Oral, Daily, First dose on Betty 06/07/25 at 0900, If patient fails dysphagia, MN option MUST be given. Do not exceed [...] 06/07/25 at 0900, If patient fails dysphagia, MN option MUST be given. Do not exceed [...] documented as of this encounter Care Teams Tag Meter Operator Relationship Specialty Start Date End Date Jeffrey Sun MD [facility], [facility] [address] [place] [id number] PCP - General Family Medicine 06/06/25 documented as of this encounter
--- OUTSIDE RECORDS SUMMARY | 2025-06-08 09:46 | XMS_ITS | Encounter Summary ---
[facility] [address] [place] [address] Care Team Providers Care Welding Machine Operator Electro Gas Name Role Phone Jeffrey Sun MD Primary Care Provider + [phone] Reason for Visit * Auth/Cert Specialty Diagnoses / Procedures Referred By Neil stephens Referred To Contact Diagnoses Cerebrovascular Accident (stroke) Referral ID Status Reason Start Date Expiration Date Visits Re quested Visits Authorized [id number] 1 1 Encounter Details Date Type Department Care Team (Late st Contact Info) Description 06/08/2025 10:46 AM EDT Anesthesia Event [facility] [address] [place] [address] Tom Dover MD [address] [place] [address] Jonathan Burns CRNA [address] [place] [address] Anesthesia Record Procedure Summary Procedure Name Responsible Anesthesiologist Anesthesia Start Time Anesthesia Stop Time ENDOSCOPIC RETROGRADE CHOLANGIOPANCREATOGRAPHY Tom Dover MD 06/08/25 1046 06/08/25 1248 Events Date Time Event Comment 06/08/2025 0943 1036 AN Equip Check 1046 An Start The patient was reevaluated immediately before moderate or deep sedation use and before anesthesia induction. 1046 An Start Data 1049 An Induction 1051 An Intubation 1154 an renuka now Stanislaw in 1244 An Extubation 1245 an stop data 1248 Handoff to RN The following has been completed: 1. Identification of Patient, restrepo family member(s) or patient surrogate 2. Identification of the responsible Practitioner (primary service) 3. Discussion of the pertinent/attainable medical history 4. Discussion of the surgical/procedure course (procedure, reason for surgery, procedure performed) 5. Intraoperative anesthetic management and issue/concerns to include things such as airway, hemodynamics, narcotic, sedation level and paralytic management and intravenous fluids/blood products and urine output during the procedure 6. Expectations/Plans for the early post-procedure period to include things such as anticipated course (anticipatory guidance), complications, need for laboratory or ECG and medication administration 7. Opportunity for questions and acknowledgment of understanding of report from the receiving PACU/ICU team 1248 An Stop Meds Name Total propofol 10 MG/ML 200 mg lidocaine PF 1% 1 % 50 mg rocuronium 50 MG/5ML 50 mg Phenylephrine HCl-NaCl 1000-0.9 MCG/10ML -% 500 mcg glucagon (GLUCAGEN) injection 1 mg 1.5 m g sugammadex 200 MG/2ML 200 mg sodium chloride 0.9 % infusion 200 mL * Agents Name O2 N2O Air Sevoflurane Inspired Sevoflurane * Blood No blood administrations on file. Lines, Drains, and Airways Type Details Placement Removal Wound 06/06/25; 1956; Y; Left; proximal; arm; Traumatic; Skin Tear 06/06/251956 by Rosalina Ascencio RN Wound 06/06/25; 1957; Y; medial; coccyx; Pressure Inj 06/06/251957 by Rosalina Ascencio, senior marketing data analyst Cath Double Unknown placeme nt date/time; Left; Subclavian 06/07/25 1535 by Peripheral IV Placement Date: 06/07/25; Placement Time: 1115; Change Due: 06/11/25; Catheter Size: 20 G; Orientation: Anterior, Left, Proximal; Location: Forearm; Site Prep: Chlorhexidine; Technique: Ultrasound guidance; Inserted by: Summer Nanny; Insertion Attempts: 4; Patient Tolerance: Tolerated well; Removal Date: 06/09/25; Removal Time: 0600 06/07/25 1115 by Rosalina Ascencio RN 06/09/25 0600 by Yeni Farrell, HIEU ETT Placement Date: 06/08/25; Placement Time: 1051 (created via procedure documentation); Blade Size: 2; Location: Oral; Removal Date: 06/08/25; Removal Time: 1244 06/08/25 1051 by Jonathan Burns CRNA 06/08/25 1244 by Jonathan Burns CRNA documented in this encounter Social History Tobacco Use Types Packs/Day Years Used Date Smoking Tobacco: Never Smokeless Tobacco: Never Alcohol Use Standard Drinks/Week Comments Never 0 (1 standard drink = 0.6 oz pur e alcohol) [facility] Utilities Answer Date Recorded In the past 12 months has th e electric, gas, oil, or water company threatened [...] GED or equivalent No 06/07/2025 Preferred Language Hebrew 06/07/2025 Sex and Gender Information Value Date Recorded Sex Assigned at Not on file Legal Sex Male 1:16 PM EDT Gender Identity Not on file Sexual Orientation Not on file documented as of this encounter OR Notes * Anesthesia Postprocedure Evaluation - Jonathan Burns CRNA - 06/08/2025 12:48 PM EDT Patient: Nicolás Fuentes Procedure Summary Date: 06/08/25 Room / Location: [facility] / [facility] Anesthesia Start: 1046 Anesthesia Stop: 1248 Procedure: ENDOSCOPIC RETROGRADE CHOLANGIOPANCREATOGRAPHY Diagnosis: Surgeons: Kishore Foote MD Provider: Tom Dover MD Anesthesia Type: general ASA Status: 4 Anesthesia Type: general Vitals No vitals data found for the desired time range. Post Anesthesia Care and Evaluation Patient location during evaluation: PACU Patient participation: complete - patient participated Level of consciousness: awake and alert Pain management: adequate Airway patency: patent Anesthetic complications: No anesthetic complications PONV Status: none Cardiovascular status: hemodynamically stable and acceptable Respiratory status: nonlabored ventilation, acceptable and nasal cannula Hydration status: acceptable * Anesthesia Procedure Notes - Jonathan Burns CRNA - 06/08/2025 11:00 AM EDT Associated Order(s): Airway Airway Reason: elective Date/Time: 06/08/2025 10:51 AM Airway not difficult General Information and Staff Patient location during procedure: OR SOFTWARE DEPLOYMENT ENGINEER/CAA: Jonathan Burns CRNA Indications and Patient Condition Indications for airway management: airway protection Preoxygenated: yes MILS not maintained throughout Mask difficulty assessment: 1 - vent by mask Final Airway Details Final airway type: endotracheal airway Successful airway: ETT Cuffed: yes Successful intubation technique: direct laryngoscopy Endotracheal tube insertion site: oral Blade: Valverde Blade size: 2 ETT size (mm): 7.0 Cormack-Lehane Classification: grade I - full view of glottis Placement verified by: chest auscultation and capnometry Cuff volume (mL): 5 Measured from: lips ETT/EBT to lips (cm): 20 Number of attempts at approach: 1 Assessment: lips, teeth, and gum same as pre-op and atraumatic intubation Additional Comments Negative epigastric sounds, Breath sound equal bilaterally with symmetric chest rise and fall * Anesthesia Preprocedure Evaluation - Tom Dover MD - 06/08/2025 8:51 AM EDT Anesthesia Evaluation Patient summary reviewed and Nursing notes reviewed NPO Solid Status: > 8 hours NPO Liquid Status: > 2 hours Airway Mallampati: I TM distance: >3 FB Neck ROM: full No difficulty expected Dental (+) upper dentures Pulmonary (+) pneumonia stable , COPD (data def) moderate, (-) asthma, shortness of breath, recent URI, sleep apnea, not a smoker, no home oxygen (intermittent) ROS comment: Sats 95-97 % NC O2 Cardiovascular ECG reviewed (+) hypertension, dysrhythmias, hyperlipidemia (-) past CA, angina, cardiac stents ROS comment: ECG Wide QRS LBBB ECHO 06/07 EF > 53% mild concentric LVH LVDD (grade II w/high LAP) pseudonormalization. Saline- negative. AV mild calcification of Mild /AI KIERAN 1.39 cm2. 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 Plan discussed with SOFTWARE DEPLOYMENT ENGINEER. CODE STATUS: Code Status (Patient has no pulse and is not breathing): No CPR (Do Not Attempt to Resuscitate) Medical Interventions (Patient has pulse or is breathing): Limited Support Medical Intervention Limits: No intubation (DNI) Level Of Support Discussed With: Patient Next of Kin (If No Surrogate) documented in this encounter Plan of Treatment Upcoming Encounters Date Type Department Care Team (Late st Contact Info) Description 5 12:30 PM EST Pre-Admission Testing [facility] [address] [place] [id number] 5 3:20 PM EST Hospital Encounter [facility] [address] [place] [phone] Arnel Bell MD [address] [facility] [address] [place] [address] 5 3:20 PM EST - 5 4:02 PM EST Surgery [facility] [address] [place] [phone] Arnel Bell MD [address] [facility] [address] [place] [address] ENDOSCOPIC RETROGRADE CHOLANGIOPANCREATOGRAPHY [80903 (CPT )] Scheduled Procedures Name Priority Associated Diagnoses Date/Ti ks ENDOSCOPIC RETROGRADE CHOLANGIOPANCREATOGRAPHY Encounter for removal of biliary stent 08/16/2025 3:20 PM EST documented as of this encounter Procedures Procedure Name Priority Date/Time Associated Diagnosis Comments ANESTHESIA INTUBATION Routine 06/08/2025 11:00 AM EDT documented in this encounter Results * BH AN ETT AIRWAY (06/08/2025 11:00 AM EDT) Narrative Jonathan Burns CRNA - 06/08/2025 11:00 AM EDT Jonathan Burns CRNA 06/08/2025 11:00 AM Airway Reason: elective Date/Time: 06/08/2025 10:51 AM Airway not difficult General Information and Staff Patient location during procedure: OR SOFTWARE DEPLOYMENT ENGINEER/CAA: Jonathan Burns CRNA Indications and Patient Condition Indications for airway management: airway protection Preoxygenated: yes MILS not maintained throughout Mask difficulty assessment: 1 - vent by mask Final Airway Details Final airway type: endotracheal airway Successful airway: ETT Cuffed: yes Successful intubation technique: direct laryngoscopy Endotracheal tube insertion site: oral Blade: Valverde Blade size: 2 ETT size (mm): 7.0 Cormack-Lehane Classification: grade I - full view of glottis Placement verified by: chest auscultation and capnometry Cuff volume (mL): 5 Measured from: lips ETT/EBT to lips (cm): 20 Number of attempts at approach: 1 Assessment: lips, teeth, and gum same as pre-op and atraumatic intubation Additional Comments Negative epigastric sounds, Breath sound equal bilaterally with symmetric chest rise and fall us Tom Dover MD ANESTHESIA ORDERABLES Final Res ult documented in this encounter Visit Diagnoses Not on filedocumented in this encounter Administered Medications Inactive Administered Medications - up to 3 most recent administrations Medication Order MAR Action Action Date Dose Rate Site glucagon (GLUCAGEN) injection Intramuscular, As Needed, Starting on Wed06/08/25 at 1104 Given 06/08/2025 12:14 PM EDT 0.5 mg Given 06/08/2025 11:27 AM EDT 0.5 mg Given 06/08/2025 11:04 AM EDT 0.5 mg lidocaine PF 1% (XYLOCAINE) injection Intravenous, As Needed, Starting on Wed06/08/25 at 1049 Given 06/08/2025 10:49 AM EDT 50 mg Phenylephrine HCl-NaCl 100 mcg/ml injection Intravenous, As Needed, Starting on Wed06/08/25 at 1049 Given 06/08/2025 11:26 AM EDT 200 mcg Given 06/08/2025 11:18 AM EDT 200 mcg Given 06/08/2025 10:49 AM EDT 100 mcg propofol (DIPRIVAN) injection Intravenous, As Needed, Starting on Wed06/08/25 at 1049 Given 06/08/2025 10:49 AM EDT 200 mg rocuronium (ZEMURON) injection Intravenous, As Needed, Starting on Wed06/08/25 at 1049 Given 06/08/2025 10:49 AM EDT 50 mg sodium chloride 0.9 % infusion Intravenous, Continuous PRN, Starting on Wed06/08/25 at 1046 New Bag 06/08/2025 10:46 AM EDT sugammadex (BRIDION) injection Intravenous, As Needed, Starting on Wed06/08/25 at 1235 Given 06/08/2025 12:35 PM EDT 200 mg documented in this encounter Additional Health Concerns Infection Onset Date Last Indicated Resolved Time Nettie Auris (rule out) 06/07/2025 06/07/2025 8:51 AM EDT documented as of this encounter Care Teams Welding Machine Operator Electro Gas Relationship Specialty Start Date End Date Jeffrey Sun MD [address] [facility] [address] [place] [id number] PCP - General Family Medicine 06/06/25 documented as of this encounter
--- OUTSIDE RECORDS SUMMARY | 2025-06-09 08:00 | XMS_ITS | Encounter Summary ---
[facility] Address [address] [place] [address] Care Team Providers Care Wool Hat Sanding Machine Operator Name Role Phone Jeffrey Sun MD Primary Care Provider + [phone] Reason for Visit * Auth/Cert Specialty Diagnoses / Procedures Referred By Neil stephens Referred To Contact Diagnoses Cerebrovascular Accident (stroke) Referral ID Status Reason Start Date Expiration Date Visits Re quested Visits Authorized [id number] 1 1 Encounter Details Date Type Department Care Team (Late st Contact Info) Description 06/09/2025 9:00 AM EDT - 06/09/2025 10:46 AM EDT Surgery [facility] [address] [place] [id number] Charles Guerrero MD [address] [place] [address] CHOLECYSTECTOMY LAPAROSCOPIC [28754 (CPT )] Social History Tobacco Use Types Packs/Day Years Used Date Smoking Tobacco: Never Smokeless Tobacco: Never Tobacco Cessation:Counseling Given: No Alcohol Use Standard Drinks/Week Comments Never 0 (1 standard drink = 0.6 oz pur e alcohol) [facility] Utilities Answer Date Recorded In the past 12 months has [employer] electric, gas, oil, or water company threatened [...] GED or equivalent No 06/07/2025 Preferred Language Malagasy 06/07/2025 Sex and Gender Information Value Date Recorded Sex Assigned at Not on file Legal Sex Male 1:16 PM EDT Gender Identity Not on file Sexual Orientation Not on file documented as of this encounter Last Filed Vital Signs Vital Sign Reading Time Taken Comments Blood Pressure 126/53 06/09/2025 8:03 AM EDT Pulse 57 06/09/2025 8:03 AM EDT Temperature 36.5 C (97.7 F) 06/09/2025 8:03 AM EDT Respiratory Rate 20 06/09/2025 8:03 AM EDT Oxygen Saturation 92% 06/09/2025 8:03 AM EDT Inhaled Oxygen Concentration - - [...] 6:16 AM EDT Linda Schafer RN * [facility] Suicide Severity Rating Scale (Screener/Recent Self-Report) Question Answer Date of Assessment Author 6. Suicidal Behavior (Lifetime) No 6:16 AM EDT Linda Schafer RN documented as of this encounter Discharge Summaries * Tesha Coelho RN - 06/14/2025 1:30 PM EDT Images from the original note were not included. Alexa Fuentes (74 y.o. Male) Tesha ANGULO [phone] Date of 1950 Social Security Number [id number] Address [facility] [place] [address] [address] [id number] [facility] None Marital Status Admission Date 06/06/2025 Admission Type Urgent Admitting Provider Bell Carmen MD Attending Provider Bell Carmen MD Department, Room/Bed [facility] 3F, S325/1 Discharge Date Discharge Disposition [facility] Facility (DC - External) Discharge Destination Attending [...] Plan Fax Number Effective Dates [id number] 11/11/2013 - None Entered [facility] [id number] Subscriber Name Subscriber Date Member ID ALEXA FUENTES 1950 [id number] Emergency Contacts Life Skills Trainer (Rel.) Home Phone Work Phone Mobile Phone ALFREDOTeto (Son) [phone] -- [phone] Gabriel Fuentes (Other) -- -- [phone] Discharge Summary Bell Carmen MD at 06/13/[address] [place] [address] Medicine Services DISCHARGE SUMMARY Patient Name: Alexa [...] was recommended for continued therapy at a [facility] facility. 2. Sepsis, Community-Acquired Pneumonia, and Streptococcus [...] and coordination was madefor outpatient dialysis at [facility]. 6. Atrial Fibrillation Valvular Heart [...] ADLs, and was recommended for discharge to [facility] for continued rehabilitation and care. - [...] MD 06/11/2025 7:44 AM EDT Workstation ID: [id number] FL ERCP pancreatic and biliary ducts Result Date: 06/08/2025 Impression: Impression: Fluoroscopy demonstrates filling of the bile ducts. Please see procedure report for full findings. Electronically Signed: Migue Mcfarlane MD 06/08/2025 3:48 PM EDT Workstation ID: [id number] MRI abdomen wo contrast mrcp Result Date: [...] MD 06/07/2025 10:26 AM EDT Workstation ID: [id number] MRI Brain Without Contrast Result Date: 06/07/2025 [...] MD 06/07/2025 10:22 AM EDT Workstation ID: [id number] Results for orders placed during the hospital [...] Status Respiratory Panel PCR w/COVID-19(SARS-CoV-2) ZHANE/SALAZAR/MELY/PAD/COR/GELY In-House, SUPERVISOR CONTACT LENS Swab in UTM/VTM, 2 HR TAT - [...] Daily, 30-600mg 1 tablet twice daily between 0842-0274 loperamide 2 MG capsule Commonly known as: IMODIUM 2 mg, Oral, 4 Times Daily PRN midodrine 5 MG tablet Commonly known as: PROAMATINE 10 mg, Oral, 3 Times Weekly, Mon, Wed, Sat between 2705-1542 montelukast 10 MG tablet Commonly known as: [...] 23 Sophie Flor APRN at 06/14/25 1210 [facility] Medicine Services DISCHARGE SUMMARY Patient Name: [...] and ESRD on HD who presents from [facility] due to AMS and concern for stroke. In addition he was found to have pneumonia and possible choledocholithiasis. Stroke team accepted in transfer to [facility]. Upon further workup found to have left [...] BID per stroke neruo and cards recs --PT/OT/WASTEWATER PLANT OPERATOR evaluations- back to extended care Choledocholithiasis --CT [...] the OR 06/[address] Guerrero for [facility] in 2 weeks - advanced to regular [...] Date/Time Respiratory Panel PCR w/COVID-19(SARS-CoV-2) ZHANE/SALAZAR/MELY/PAD/COR/GELY In-House, SUPERVISOR CONTACT LENS Swab in UTM/VTM, 2 HR TAT - Swab, Nasopharynx [[id number]] (Normal) Collected: 06/14/25 0713 Lab Status: Final [...] MRSA Screen, PCR (Inpatient) - Swab, Nares [[id number]] (Abnormal) Collected: 06/08/25 1905 Lab Status: Final result Specimen: Swab from Nares Updated: 06/08/25 2152 MRSA PCR Positive Narrative: The negative predictive value of this diagnostic test is high and should only be used to consider de-escalating anti-MRSA therapy. A positive result may indicate colonization with MRSA and must be correlated clinically. KIMANI AURIS PCR - Swab, Axilla Right, Axilla Left and Groin [[id number]] Collected: 06/07/25 0845 Lab Status: Final result Specimen: Swab from Axilla Right, Axilla Left and Groin Updated: 06/08/25 1715 KIMANI AURIS PCR (MITUL) Not Detected Blood Culture - Blood, Wrist, Left [[id number]] (Normal) Collected: 06/07/25 0603 Lab Status: Final result Specimen: Blood from Wrist, Left Updated: 06/12/25 0730 Blood Culture No growth at 5 days Narrative: Aerobic Bottle Only Less than seven (7) mL's of blood was collected. Insufficient quantity may yield false negative results. Blood Culture - Blood, Wrist, Left [[id number]] (Normal) Collected: 06/07/25 0601 Lab Status: Final [...] MD 06/11/2025 7:44 AM EDT Workstation ID: [id number] FL ERCP pancreatic and biliary ducts Result Date: 06/08/2025 FL ERCP PANCREATIC AND BILIARY DUCTS Date of Exam: 06/08/2025 10:49 AM EDT Indication: ENDOSCOPIC RETROGRADE CHOLANGIOPANCREATOGRAPHY. Comparison: None available. Technique: A series of radiographic digital spot films were obtained in conjunction with an endoscopic catheterization of the biliary andpancreatic ductal system, performed by the health records technology teacher. Fluoroscopic Time: 5 minutes 57 seconds Number of Images: 10 Findings: Fluoroscopy demonstrates filling of the bile ducts. Impression: Fluoroscopy demonstrates filling of the bile ducts. Please see procedure report for full findings. Electronically Signed: Migue Mcfarlane MD 06/08/2025 3:48 PM EDT Workstation ID: [id number] Duplex Carotid Ultrasound CAR Result Date: 06/07/2025 Right internal carotid artery demonstrates a less than 50% stenosis. Right vertebral artery was notvisualized. Left internal carotid artery demonstrates a less than 50% stenosis. Antegrade left vertebral flow. WASTEWATER PLANT OPERATOR FEES - Fiberoptic Endo Eval Swallow Result [...] hydronephrosis. No dilated bowel loops within the fwijn-wd-qfsp. No free fluid in the abdomen. No [...] MD 06/07/2025 10:26 AM EDT Workstation ID: [id number] MRI Brain Without Contrast Result Date: 06/07/2025 [...] MD 06/07/2025 10:22 AM EDT Workstation ID: [id number] CT Outside Films Result Date: 06/06/2025 This [...] Daily, 30-600mg 1 tablet twice daily between 4529-6634 loperamide 2 MG capsule Commonly known as: IMODIUM 2 mg, Oral, 4 Times Daily PRN midodrine 5 MG tablet Commonly known as: PROAMATINE 10 mg, Oral, 3 Times Weekly, Mon, Wed, Sat between 5830-2343 montelukast 10 MG tablet Commonly known as: [...] as: PROMETHAZINE-DM No Known Allergies Discharge Disposition: [facility] Facility (DC - External) Diet: Hospital: Diet [...] minutes on this discharge activity which included: ixts-ef-fuznbxwblspps with the patient, reviewing the data in the system, coordination of the care with the nursing staff as well as consultants, documentation, and entering orders. Electronically signed by Sophie Flor APRN, 06/14/25, 12:10 PM EDT. 1221 INFECTIOUS DISEASE Progress Note Alexa Fuentes 1950 [id number] Date of Consult: 06/08/2025 Admission Date: 06/06/2025 [...] Streptococcus pneumoniae bacteremia. He was transferred from [facility] to [facility] on 06/06 for concerns for stroke along with altered mental status. [facility]ic and [facility] and was transferred to [facility]. [facility] CT [facility] showed acute/subacute left occipital lobe ischemia [...] was started on IV antibiotics and transferredto [facility] on 06/06. Since arrival, the patient has [...] his antibiotic therapy. His blood cultures from [facility] became positive for GPC in pairs in [...] CHOLECYSTECTOMY LAPAROSCOPIC; Surgeon: Charles Guerrero MD; Location: [facility] OR; Service: General; Laterality: N/A; COLONOSCOPY ERCP N/A 06/08/2025 Procedure: ENDOSCOPIC RETROGRADE CHOLANGIOPANCREATOGRAPHY; Surgeon: Kishore Foote MD; Location: [facility]; Service: Gastroenterology; Laterality: N/A; KNEE SURGERY [...] 200 mg, 200 mg, Oral, BID, Charles uGerrero MD, 200 mg at 015 apixaban (ELIQUIS) [...] Driven Protocol, , Not Applicable, PRN, Charles Gurerero MD nitroglycerin (NITROSTAT) SL tablet 0.4 mg, [...] 2 spray, Each Nare, Q30 Min PRN, Awa, Laure, DIRECTOR OF MEDICAL EDUCATION, 2 spray at 06/13/25 0415 vancomycin (dosing per levels), , Not Applicable, Daily, Ponkuldiph, Veena, RPH Antibiotics: Anti-Infectives (From admission, onward) Ordered [...] over 135 Minutes Intravenous Once 06/12/25 1800 06/12/25 20206/12/25 0908 Pharmacy to dose vancomycin Ordering Provider: [...] MRSA Screen, PCR (Inpatient) - Swab, Nares [[id number]] (Abnormal) Collected: 06/08/25 190 Lab Status: Final result Specimen: Swab from Nares Updated: 06/08/252151 MRSA PCR Positive Narrative: The negative predictive value of this diagnostic test is high and should only be used to consider de-escalating anti-MRSA therapy. A positive result may indicate colonization with MRSA and must be correlated clinically. KIMANI AURIS PCR - Swab, Axilla Right, Axilla Left and Groin [[id number]] Collected: 06/07/25 0845 Lab Status: Final result Specimen: Swab from Axilla Right, Axilla Left and Groin Updated: 06/08/25 1715 KIMANI AURIS PCR (MITUL) Not Detected Blood Culture - Blood, Wrist, Left [[id number]] (Normal) Collected: 06/07/25 0603 Lab Status: Final result Specimen: Blood from Wrist, Left Updated: 06/12/25 0730 Blood Culture No growth at 5 days Narrative: Aerobic Bottle Only Less than seven (7) mL's of blood was collected. Insufficient quantity may yield false negative results. Blood Culture - Blood, Wrist, Left [[id number]] (Normal) Collected: 06/07/25 0601 Lab Status: Final result Specimen: Blood from Wrist, Left Updated: 06/12/25 0730 Blood Culture No growth at 5 days Narrative: Aerobic Bottle Only Less than seven (7) mL's of blood was collected. Insufficient quantity may yield false negative results. Radiology: Imaging Results (Last 72 Hours) Procedure Component Value Units Date/Time CT Soft Tissue Neck Without Contrast [[id number]] Collected: 06/11/25 0737 Updated: 06/11/25 0747 Narrative: [...] MD 06/11/2025 7:44 AM EDT Workstation ID: [id number] I read his radiographic images. Impression: Pneumococcal [...] from the original note were not included. [facility] Medicine Services DISCHARGE SUMMARY Patient Name: [...] and ESRD on HD who presents from [facility] due to AMS and concern for stroke. In addition he was found to have pneumonia and possible choledocholithiasis. Stroke team accepted in transfer to [facility]. Upon further workup found to have left [...] cultures positive for strep pneumo. Infectious disease, Patnera Dc following: CTX dc'd plan to continue [...] BID per stroke neruo and cards recs --PT/OT/WASTEWATER PLANT OPERATOR evaluations- back to extended care Choledocholithiasis --CT [...] the OR 06/[address] Guerrero for FZR-ohnjkw-dp in 2 weeks - advanced to regular [...] Date/Time Respiratory Panel PCR w/COVID-19(SARS-CoV-2) ZHANE/SALAZAR/MELY/PAD/COR/GELY In-House, SUPERVISOR CONTACT LENS Swab in UTM/VTM, 2 HR TAT - Swab, Nasopharynx [[id number]] (Normal) Collected: 06/14/25 0713 Lab Status: Final [...] MRSA Screen, PCR (Inpatient) - Swab, Nares [[id number]] (Abnormal) Collected: 06/08/25 1905 Lab Status: Final result Specimen: Swab from Nares Updated: 06/08/25 2152 MRSA PCR Positive Narrative: The negative predictive value of this diagnostic test is high and should only be used to consider de-escalating anti-MRSA therapy. A positive result may indicate colonization with MRSA and must be correlated clinically. KIMANI AURIS PCR - Swab, Axilla Right, Axilla Left and Groin [[id number]] Collected: 06/07/25 0845 Lab Status: Final result Specimen: Swab from Axilla Right, Axilla Left and Groin Updated: 06/08/25 1715 KIMANI AURIS PCR (MITUL) Not Detected Blood Culture - Blood, Wrist, Left [[id number]] (Normal) Collected: 06/07/25 0603 Lab Status: Final result Specimen: Blood from Wrist, Left Updated: 06/12/25 0730 Blood Culture No growth at 5 days Narrative: Aerobic Bottle Only Less than seven (7) mL's of blood was collected. Insufficient quantity may yield false negative results. Blood Culture - Blood, Wrist, Left [[id number]] (Normal) Collected: 06/07/25 0601 Lab Status: Final [...] MD 06/11/2025 7:44 AM EDT Workstation ID: [id number] FL ERCP pancreatic and biliary ducts Result Date: 06/08/2025 FL ERCP PANCREATIC AND BILIARY DUCTS Date of Exam: 06/08/2025 10:49 AM EDT Indication: ENDOSCOPIC RETROGRADE CHOLANGIOPANCREATOGRAPHY. Comparison: None available. Technique: A series of radiographic digital spot films were obtained in conjunction with an endoscopic catheterization of the biliary andpancreatic ductal system, performed by the health records technology teacher. Fluoroscopic Time: 5 minutes 57 seconds Number of Images: 10 Findings: Fluoroscopy demonstrates filling of the bile ducts. Impression: Fluoroscopy demonstrates filling of the bile ducts. Please see procedure report for full findings. Electronically Signed: Migue Mcfarlane MD 06/08/2025 3:48 PM EDT Workstation ID: [id number] Duplex Carotid Ultrasound CAR Result Date: 06/07/2025 Right internal carotid artery demonstrates a less than 50% stenosis. Right vertebral artery was notvisualized. Left internal carotid artery demonstrates a less than 50% stenosis. Antegrade left vertebral flow. WASTEWATER PLANT OPERATOR FEES - Fiberoptic Endo Eval Swallow Result [...] hydronephrosis. No dilated bowel loops within the tffcn-jo-efnf. No free fluid in the abdomen. No [...] MD 06/07/2025 10:26 AM EDT Workstation ID: [id number] MRI Brain Without Contrast Result Date: 06/07/2025 [...] MD 06/07/2025 10:22 AM EDT Workstation ID: [id number] CT Outside Films Result Date: 06/06/2025 This [...] 5 MG tablet tablet Commonly known as: ALEX What changed: medication strength how much to [...] Daily, 30-600mg 1 tablet twice daily between 4224-3001 loperamide 2 MG capsule Commonly known as: IMODIUM 2 mg, Oral, 4 Times Daily PRN midodrine 5 MG tablet Commonly known as: PROAMATINE 10 mg, Oral, 3 Times Weekly, Mon, Wed, Sat between 4822-2780 montelukast 10 MG tablet Commonly known as: [...] as: PROMETHAZINE-DM No Known Allergies Discharge Disposition: [facility] Facility (DC - External) Diet: Hospital: Diet [...] minutes on this discharge activity which included: fkyv-qz-krxxnjabjfufz with the patient, reviewing the data in [...] from the original note were not included. [facility] Medicine Services DISCHARGE SUMMARY Patient Name: [...] was recommended for continued therapy at a [facility] facility. 2. Sepsis, Community-Acquired Pneumonia, and Streptococcus [...] and coordination was madefor outpatient dialysis at [facility]. 6. Atrial Fibrillation Valvular Heart [...] ADLs, and was recommended for discharge to [facility] for continued rehabilitation and [...] MD 06/11/2025 7:44 AM EDT Workstation ID: [id number] FL ERCP pancreatic and biliary ducts Result Date: 06/08/2025 Impression: Impression: Fluoroscopy demonstrates filling of the bile ducts. Please see procedure report for full findings. Electronically Signed: Migue Mcfarlane MD 06/08/2025 3:48 PM EDT Workstation ID: [id number] MRI abdomen wo contrast mrcp Result Date: [...] MD 06/07/2025 10:26 AM EDT Workstation ID: [id number] MRI Brain Without Contrast Result Date: 06/07/2025 [...] MD 06/07/2025 10:22 AM EDT Workstation ID: [id number] Results for orders placed during the hospital [...] Status Respiratory Panel PCR w/COVID-19(SARS-CoV-2) ZHANE/SALAZAR/MELY/PAD/COR/GELY In-House, SUPERVISOR CONTACT LENS Swab in UTM/VTM, 2 HR TAT - [...] Daily, 30-600mg 1 tablet twice daily between 0996-6162 loperamide 2 MG capsule Commonly known as: IMODIUM 2 mg, Oral, 4 Times Daily PRN midodrine 5 MG tablet Commonly known as: PROAMATINE 10 mg, Oral, 3 Times Weekly, Mon, Wed, Sat between 3039-7167 montelukast 10 MG tablet Commonly known as: [...] included. Acute Care - Occupational Therapy Discharge [facility] Patient Name: Alexa Fuentes : 1950 [...] Home, Primary none - Row Name 06/07/25 1449 Cognition Orientation Status (Cognition) oriented x 3 - Row Name 06/07/25 1449 Safety Issues/Impairments Affecting Functional Mobility Safety Issues Affecting Function (Mobility) awareness of need for assistance;insight into deficits/self-awareness;problem-solving;judgment - User Alvarez (r) = Recorded By, (t) = Taken By, (c) = Cosigned By Initials Name Provider Type Licha Carlton, OT Occupational Therapist Mobility/ADL's Row Name 06/07/25 145 Bed Mobility Bed Mobility scooting/bridging - Scooting/Bridging [place] (Bed Mobility) dependent (less than 25% patient [...] on importance of OOB activity & sitting UI. - Row Name 06/07/25 145 Activities of Daily Living BADL Assessment/Intervention grooming;feeding - Row Name 06/07/25 145 Hygiene Care Oral Care teeth brushed - regular toothbrush - Row Name 06/07/25 145 Grooming Assessment/Training [place] Level (Grooming) oral care regimen;dependent (less than 25% patient effort) - Position (Grooming) sitting up in bed - Comment, (Grooming) Pt w/ minimal effort to asssit w/ brushing teeth, demo'd ability to reach mouthw/ B hands but req dep A. - Row Name 06/07/25 145 Self-Feeding Assessment/Training Comment, (Feeding) Pt reports no issues with holding onto utensils/reaching mouth to feed himself. 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 - User Alvarez (r) = Recorded By, (t) = Taken By, (c) = Cosigned By Initials Name Provider Type Licha Mercado OT Occupational Therapist Obj/Interventions [facility] 06/07/25 145 Sensory Assessment (Somatosensory) Sensory Assessment (Somatosensory) UE sensation intact -[facility] 06/07/25 145 Vision Assessment/Intervention Visual Impairment/Limitations WFL -[facility] 06/07/25 145 Range of Motion Comprehensive General Range of Motion upper extremity range of motion deficits identified - Comment, General Range of Motion R shoulder ROM limited from remote humerus fx (pt/son reports 7 years ago), L trigger finger (pt able to release himself) -[facility] 06/07/25 145 Strength Comprehensive (MMT) General Manual Muscle Testing (MMT) Assessment upper extremity strength deficits identified - Comment, General Manual Muscle Testing (MMT) Assessment R shoulder limited assessment d/t pain, otherwise BUE grossly 5/5 -[facility] 06/07/25 145 Motor Skills Motor Skills coordination - Coordination WFL;bilateral;upper extremity;finger to nose -[facility] 06/07/25 145 Balance Comment, Balance Pt declined any OOB activity - User Alvarez (r) = Recorded By, (t) = Taken By, (c) = Cosigned By Initials Name Provider Type Licha Carlton OT Occupational Therapist Goals/Plan No documentation. Clinical Impression [facility] 06/07/25 319 Plan of Care Review Plan of Care Reviewed With patient;son - Outcome Evaluation Pt at baseline functional status w/ ADL independence. No further skilled IPOT services warranted at this time. Rec continued activity as tolerated w/ nursing staff, return to [facility] at d/c. -[facility] 06/07/25 196 Therapy Assessment/Plan (OT) Criteria for Skilled Therapeutic Interventions Met (OT) does not meet criteria for skilled intervention - Therapy Frequency (OT) evaluation only -[facility] 06/07/25 407 Therapy Plan Review/Discharge Plan (OT) Anticipated Discharge Disposition (OT) [facility] -[facility] 06/07/25 515 Vital Signs O2 Delivery Pre Treatment room air - O2 Delivery Intra Treatment room air - O2 Delivery Post Treatment room air - Pre Patient Position Supine - Intra Patient Position Supine - Post Patient Position Supine -[facility] 06/07/25 313 Positioning and Restraints Pre-Treatment Position in bed - Post Treatment Position bed -MC In Bed notified nsg;supine;call light within reach;encouraged to call for assist;exit alarm on;siderails up x3;with family/caregiver - User Alvarez (r) = Recorded By, (t) = Taken By, (c) = Cosigned By Initials Name Provider Type Licha Carlton OT Occupational Therapist Outcome Measures Row Name 06/07/25 4670 How much help from another is currently [...] 8 -AL 8 - Row Name 06/07/25 0446 Modified Morgan Scale Pre-Stroke Modified Morgan Scale 6 - Unable to determine (UTD) from the medical record documentation - Modified Morgan Scale 5 - Severe disability. Bedridden, incontinent, and requiring constant nursingcare and attention. - Row Name 06/07/25 5483 Functional Assessment Outcome Measure Options AM-PAC 6 Clicks Daily Activity (OT);Modified Morgan - User Alvarez (r) = Recorded By, (t) = Taken By, (c) = Cosigned By Initials Name Provider Type Licha Carlton, SEVERO Occupational Therapist Rosalina Abarca, RN Registered Nurse Linda Hodges RN Registered Nurse Occupational Therapy Education Title: PT OT WASTEWATER PLANT OPERATOR Therapies (In Progress) Topic: Occupational Therapy (In Progress) Point: ADL training (Done) Learning Progress Summary Patient Acceptance, E, VU by at 06/07/20251554 Point: Precautions (Done) Learning Progress Summary Patient Acceptance, E, VU by at 06/07/20251554 Point: Body mechanics (Done) Learning Progress Summary Patient Acceptance, E, VU by at 06/07/20251554 User Alvarez Initials Effective Dates Name Provider [...] Description Service Date Service Provider Modifiers Qty [id number] OT EVAL MOD COMPLEXITY 4 06/07/2025 Licha Carlton OT GO, KX 1 OT Discharge Summary Anticipated Discharge Disposition (OT): extended care facility Licha Carlton OT 06/07/2025 documented in this encounter Discharge Instructions * Attachments The following attachments cannot be sent through Care Everywhere. * Albuterol; Budesonide Metered Dose Inhaler (MDI) (Malagasy) * Aspirin Tablets (Malagasy) * Amlodipine Tablets (Malagasy) * Oxycodone; Acetaminophen Tablets (Malagasy) * Polyethylene Glycol Powder for Solution (Malagasy) * Vancomycin Injection (Malagasy) * Ischemic Stroke Ilpo-ne-Rxbl (Malagasy) * Warning Signs of a Stroke (Malagasy) documented in this encounter Medications at Time [...] 1 tablet by mouth Every Night. B Yfdfopk-N-Sxudo Acid (CHRISTINE-CLAUDE PO) Take 1 tablet by [...] Day. 30-600mg 1 tablet twice daily between 5253-3883 loperamide (IMODIUM) 2 MG capsule Take 1 [...] Times a Week. Mon, Wed, Sat between 3360-7766 montelukast (SINGULAIR) 10 MG tablet Take 1 [...] history of ESRD on HD MWF at [facility] last dialyzed yesterday. Patient was transferred from [facility] due to lethargy, confusion, weakness, initially transferred to [facility]. Subjective Interval History: Plan for HD in [...] Aortic stenosis 1. ESRD: On HD at [facility] 2. Atrial fibrillation on Eliquis 3. Hypertension 4. Anemia of chronic kidney disease 5. Strep bacteremia: On vancomycin 6. COPD. Off supp o2 7. Ischemic occipital stroke. On AC with full dose eliquis. 8. Mild hyperkalemia: Management with HD . Plan: HD per [facility]. Need abx post HD x 5 for doses . Renal diet Hold JONATAN High risk complex patient with multiple medical problems. Beau Nieves MD 06/14/25 15:04 EDT * Pantera Dc MD - 06/14/2025 7:16 AM EDT Images from the original note were not included. INFECTIOUS DISEASE Progress Note Alexa Fuentes 1950 [id number] Date of Consult: 06/08/2025 Admission Date: 06/06/2025 [...] Streptococcus pneumoniae bacteremia. He was transferred from [facility] to [facility] on 06/06 for concerns for stroke along with altered mental status. He was noted at [facility] to be more lethargic and confused and was transferred to [facility]. His CT scanat [facility] showed acute/subacute left occipital lobe ischemia [...] was started on IV antibiotics and transferredto [facility] on 06/06. Since arrival, the patient has [...] his antibiotic therapy. His blood cultures from [facility] became positive for GPC in pairs in [...] CHOLECYSTECTOMY LAPAROSCOPIC; Surgeon: Charles Guerrero MD; Location: [facility] OR; Service: General; Laterality: N/A; COLONOSCOPY ERCP N/A 06/08/2025 Procedure: ENDOSCOPIC RETROGRADE CHOLANGIOPANCREATOGRAPHY; Surgeon: Kishore Foote MD; Location: [facility] END[facility]COPY; Service: Gastroenterology; Laterality: N/A; KNEE SURGERY [...] Each Nare, Q30 Min PRN, Letz, Laure, DIRECTOR OF MEDICAL EDUCATION, 2 spray at 06/13/25 0415 vancomycin (dosing per levels), , Not Applicable, Daily, Veena Liu, [facility] Antibiotics: Anti-Infectives (From admission, onward) Ordered Dose/Rate Route Frequency Start Stop 06/12/25 0739 DAPTOmycin (CUBICIN) 950 mg in sodium chloride 0.9 % 50 mL IVPB Status: Discontinued Ordering Provider: Ivonne Ralph MD 9 mg/kg ?? 106 kg (Adjusted) 100 mL/hr over 30 Minutes Intravenous Every Wednesday06/15/25 1600 06/12/25 0908 06/12/25 0958 vancomycin (dosing per levels) Ordering Provider: Veena Liu [facility] Not Applicable Daily 06/14/25 0906/24/25 0859 06/12/25 [...] MRSA Screen, PCR (Inpatient) - Swab, Nares [[id number]] (Abnormal) Collected: 06/08/25 1905 Lab Status: Final result Specimen: Swab from Nares Updated: 06/08/25 215 MRSA PCR Positive Narrative: The negative predictive value of this diagnostic test is high and should only be used to consider de-escalating anti-MRSA therapy. A positive result may indicate colonization with MRSA and must be correlated clinically. KIMANI AURIS PCR - Swab, Axilla Right, Axilla Left and Groin [[id number]] Collected: 06/07/25 0845 Lab Status: Final result Specimen: Swab from Axilla Right, Axilla Left and Groin Updated: 06/08/25 1715 KIMANI AURIS PCR ([facility]) Not Detected Blood Culture - Blood, Wrist, Left [[id number]] (Normal) Collected: 06/07/25 0603 Lab Status: Final result Specimen: Blood from Wrist, Left Updated: 06/12/25 0730 Blood Culture No growth at 5 days Narrative: Aerobic Bottle Only Less than seven (7) mL's of blood was collected. Insufficient quantity may yield false negative results. Blood Culture - Blood, Wrist, Left [[id number]] (Normal) Collected: 06/07/25 0601 Lab Status: Final result Specimen: Blood from Wrist, Left Updated: 06/12/25 0730 Blood Culture No growth at 5 days Narrative: Aerobic Bottle Only Less than seven (7) mL's of blood was collected. Insufficient quantity may yield false negative results. Radiology: Imaging Results (Last 72 Hours) Procedure Component Value Units Date/Time CT Soft Tissue Neck Without Contrast [[id number]] Collected: 06/11/25 0737 Updated: 06/11/25 0747 Narrative: [...] MD 06/11/2025 7:44 AM EDT Workstation ID: [id number] I read his radiographic images. Impression: Pneumococcal [...] Reason for Encounter: Pressure Injury Stg 2+ [facility] Clinical Nutrition Assessment Subjective Subjective Information [...] CHOLECYSTECTOMY LAPAROSCOPIC; Surgeon: Charles Guerrero MD; Location: [facility] OR; Service: General; Laterality: N/A; COLONOSCOPY ERCP N/A 06/08/2025 Procedure: ENDOSCOPIC RETROGRADE CHOLANGIOPANCREATOGRAPHY; Surgeon: Kishore Foote MD; Location: [facility]; Service: Gastroenterology; Laterality: N/A; KNEE SURGERY Right Current Problems Admission Diagnosis: Occipital stroke [I63.9] Problem List: Occipital stroke Choledocholithiasis Acute respiratory failure with hypoxia CAP (community acquired pneumonia) ESRD (end stage renal disease) Atrial fibrillation Aortic stenosis Applicable Nutrition Hx [employer]EW[employer]ANT OPERATOR Recommendation (06/07) regular textures, thin liquids Anthropometrics [...] & Output (last 3 days) 06/10 0706/11 0706/12 0706/13 0706/13 0706/14 07 [address] I.V. (mL/kg) 540 (4) IV Piggyback 250 Total Intake(mL/kg) 1012 (7.6) 250 (1.9) Urine (mL/kg/hr) 100 (0) 200 (0.1) Dialysis 2000 Total Output 127 462 4971 Net -100 +812 -1750 Urine Unmeasured Occurrence [...] 06/13/25 12:28 EDT Cosigned by Madisyn Adler MS, RD,LD at 06/13/2025 1:41 PM EDT Associated attestation - Madisyn Adler MS, RD,DUSTY - 06/13/2025 1:41 PM EDT I have reviewed this documentation and agree. * Beau Nieves MD - 06/13/2025 10:17 AM EDT LOS: 6 days Patient Care Team: Jeffrey Sun MD as PCP - General (Family Medicine) Chief Complaint: 74-year-old with history of ESRD on HD MWF at [facility] last dialyzed yesterday. Patient was transferred from [facility] due to lethargy, confusion, weakness, initially transferred to [facility]. Subjective Interval History: Seen on HD tolerating [...] Aortic stenosis 1. ESRD: On HD at [facility] 2. Atrial fibrillation on Eliquis 3. Hypertension 4. Anemia of chronic kidney disease 5. Hyperlipidemia 6. COPD. Off supp o2 7. Ischemic occipital stroke. On AC with full dose eliquis. 8. Mild hyperkalemia: Management with HD . Plan: HD per [facility]. Renal diet Hold JONATAN High risk complex patient with multiple medical problems. Beau Nieves MD 06/13/25 10:17 EDT * Charles Guerrero MD - 06/13/2025 8:27 AM EDT Patient Name: Alexa Fuentes Date of : 1950 [id number] Surgery Progress Note Date of visit: 06/13/2025 [...] INFECTIOUS DISEASE Progress Note Alexa Fuentes 1950 [id number] Date of Consult: 06/08/2025 Admission Date: 06/06/2025 [...] Streptococcus pneumoniae bacteremia. He was transferred from [facility] to [facility] on 06/06 for concerns for stroke along with altered mental status. He was [facility] to be more lethargic and confused and was transferred to [facility]. His CT scanat [facility] showed acute/subacute left occipital lobe ischemia [...] was started on IV antibiotics and transferredto [facility] on 06/06. Since arrival, the patient has [...] his antibiotic therapy. His blood cultures from [facility] became positive for GPC in pairs in [...] CHOLECYSTECTOMY LAPAROSCOPIC; Surgeon: Charles Guerrero MD; Location: [facility] OR; Service: General; Laterality: N/A; COLONOSCOPY ERCP N/A 06/08/2025 Procedure: ENDOSCOPIC RETROGRADE CHOLANGIOPANCREATOGRAPHY; Surgeon: Kishore Foote MD; Location: [facility]; Service: Gastroenterology; Laterality: N/A; KNEE SURGERY [...] flush 10 mL, 10 mL, Intravenous, Q12H, Charlse Guerrero MD, 10 mL at 06/12/25 0837 [...] levels), , Not Applicable, Daily, Veena Liu, RPH vancomycin (VANCOCIN) 1,000 mg in sodium chloride 0.9 % 250 mL IVPB-VTB, 1,000 mg, Intravenous, Once, Veena Liu RP Antibiotics: Anti-Infectives (From admission, [...] mL 0.9% NS IVPB ([facility]) Ordering Provider: Pontrich, Veena, RPH 2,250 mg over 135 Minutes Intravenous [...] MRSA Screen, PCR (Inpatient) - Swab, Nares [[id number]] (Abnormal) Collected: 06/08/25 1905 Lab Status: Final result Specimen: Swab from Nares Updated: 06/08/25 215 MRSA PCR Positive Narrative: The negative predictive value of this diagnostic test is high and should only be used to consider de-escalating anti-MRSA therapy. A positive result may indicate colonization with MRSA and must be correlated clinically. KIMANI AURIS PCR - Swab, Axilla Right, Axilla Left and Groin [[id number]] Collected: 06/07/25 0845 Lab Status: Final result Specimen: Swab from Axilla Right, Axilla Left and Groin Updated: 06/08/25 1715 KIMANI AURIS PCR ([facility]) Not Detected Blood Culture - Blood, Wrist, Left [[id number]] (Normal) Collected: 06/07/25 0603 Lab Status: Final result Specimen: Blood from Wrist, Left Updated: 06/12/25 0730 Blood Culture No growth at 5 days Narrative: Aerobic Bottle Only Less than seven (7) mL's of blood was collected. Insufficient quantity may yield false negative results. Blood Culture - Blood, Wrist, Left [[id number]] (Normal) Collected: 06/07/25 0601 Lab Status: Final result Specimen: Blood from Wrist, Left Updated: 06/12/25 0730 Blood Culture No growth at 5 days Narrative: Aerobic Bottle Only Less than seven (7) mL's of blood was collected. Insufficient quantity may yield false negative results. Radiology: Imaging Results (Last 72 Hours) Procedure Component Value Units Date/Time CT Soft Tissue Neck Without Contrast [[id number]] Collected: 06/11/25 0737 Updated: 06/11/25 0747 Narrative: [...] MD 06/11/2025 7:44 AM EDT Workstation ID: [id number] I read his radiographic images. Impression: Pneumococcal [...] history of ESRD on HD MWF at [facility] last dialyzed yesterday. Patient was transferred from [facility] due to lethargy, confusion, weakness, initially transferred to [facility]. Subjective Interval History: HD yesterday tolerated treatment [...] Atrial fibrillation 1. ESRD: On HD at [facility] 2. Atrial fibrillation on Eliquis 3. Hypertension 4. Anemia of chronic kidney disease 5. Hyperlipidemia 6. COPD. 7. Ischemic occipital stroke. Plan: HD per [facility]. Renal diet Fluid restriction less than 1500 mL/day. Start home medications. High risk complex patient with multiple medical problems. Beau Nieves MD 06/12/25 13:43 EDT * Ivonne Ralph MD - 06/12/2025 12:30 PM EDT Images from the original note were not included. [facility] Medicine Services PROGRESS NOTE Patient Name: [...] MRSA Screen, PCR (Inpatient) - Swab, Nares [[id number]] (Abnormal) Collected: 06/08/25 190 Lab Status: Final [...] MD 06/11/2025 7:44 AM EDT Workstation ID: [id number] Results for orders placed during the hospital [...] and ESRD on HD who presents from [facility] due to AMS and concern for stroke. In addition he was found to have pneumonia and possible choledocholithiasis. Stroke team accepted in transfer to [facility]. Acute hypoxic respiratory failure Pneumonia Strep pneumo [...] BID per stroke neruo and cards recs --PT/OT/[employer] OPERATOR evaluations- back to extended care Choledocholithiasis --CT [...] Ivonne Ralph MD 06/12/25 * Veena Liu, [facility] - 06/12/2025 10:00 AM EDT Images from [...] Output (last 3 days) 06/09 0706/10 0706/10 0706/13 07 I.V. (mL/kg) 600 (4.5) Total Intake(mL/kg) 600 (4.5) Urine (mL/kg/hr) 100 (0) Total Output 100 Net +600 -100 Urine Unmeasured Occurrence 1 x Microbiology Microbiology Results (last 10 days) Procedure Component Value - Date/Time MRSA Screen, PCR (Inpatient) - Swab, Nares [[id number]] (Abnormal) Collected: 06/08/25 1905 Lab Status: Final result Specimen: Swab from Nares Updated: 06/08/25 215 MRSA PCR Positive Narrative: The negative predictive value of this diagnostic test is high and should only be used to consider de-escalating anti-MRSA therapy. A positive result may indicate colonization with MRSA and must be correlated clinically. KIMANI AURIS PCR - Swab, Axilla Right, Axilla Left and Groin [[id number]] Collected: 06/07/25 0845 Lab Status: Final result Specimen: Swab from Axilla Right, Axilla Left and Groin Updated: 06/08/25 1715 KIMANI AURIS PCR ([facility]) Not Detected Blood Culture - Blood, Wrist, Left [[id number]] (Normal) Collected: 06/07/25 0603 Lab Status: Final result Specimen: Blood from Wrist, Left Updated: 06/12/25 07 Blood Culture No growth at 5 days Narrative: Aerobic Bottle Only Less than seven (7) mL's of blood was collected. Insufficient quantity may yield false negative results. Blood Culture - Blood, Wrist, Left [[id number]] (Normal) Collected: 06/07/25 0601 Lab Status: Final [...] Name: Alexa Fuentes Date of : 1950 [id number] Surgery Progress Note Date of visit: 06/12/2025 [...] INFECTIOUS DISEASE Progress Note Alexa Fuentes 1950 [id number] Date of Consult: 06/08/2025 Admission Date: 06/06/2025 [...] Streptococcus pneumoniae bacteremia. He was transferred from [facility] to [facility] on 06/06 for concerns for stroke along with altered mental status. He was noted at [facility] to be more lethargic and confused and was transferred to [facility]. His CT scanat [facility] showed acute/subacute left occipital lobe ischemia [...] was started on IV antibiotics and transferredto [facility] on 06/06. Since arrival, the patient has [...] his antibiotic therapy. His blood cultures from [facility] became positive for GPC in pairs in [...] CHOLECYSTECTOMY LAPAROSCOPIC; Surgeon: Charles Guerrero MD; Location: [facility] OR; Service: General; Laterality: N/A; COLONOSCOPY ERCP N/A 06/08/2025 Procedure: ENDOSCOPIC RETROGRADE CHOLANGIOPANCREATOGRAPHY; Surgeon: Kishore Foote MD; Location: [facility]; Service: Gastroenterology; Laterality: N/A; KNEE SURGERY [...] 06/11/25 0613, 2,000 mg at 06/11/25 0613 DAPTOmycin (CUBICIN) 650 mg in sodium chloride 0.9 % 50 mL IVPB, 6 mg/kg (Adjusted), Intravenous, Once per day on Wednesday, Pura Cross, [facility], Last Rate: 100 mL/hr at 06/11/253, 650 [...] , Not Applicable, PRGayla, Charles Guerrero MD Potassium Replacement - Follow [...] MRSA Screen, PCR (Inpatient) - Swab, Nares [[id number]] (Abnormal) Collected: 06/08/25 190 Lab Status: Final result Specimen: Swab from Nares Updated: 06/08/25 215 MRSA PCR Positive Narrative: The negative predictive value of this diagnostic test is high and should only be used to consider de-escalating anti-MRSA therapy. A positive result may indicate colonization with MRSA and must be correlated clinically. KIMANI AURIS PCR - Swab, Axilla Right, Axilla Left and Groin [[id number]] Collected: 06/07/25 0845 Lab Status: Final result Specimen: Swab from Axilla Right, Axilla Left and Groin Updated: 06/08/25 1715 KIMANI AURIS PCR ([facility]) Not Detected Blood Culture - Blood, Wrist, Left [[id number]] (Normal) Collected: 06/07/25 0603 Lab Status: Preliminary result Specimen: Blood from Wrist, Left Updated: 06/11/25 0730 Blood Culture No growth at 4 days Narrative: Aerobic Bottle Only Less than seven (7) mL's of blood was collected. Insufficient quantity may yield false negative results. Blood Culture - Blood, Wrist, Left [[id number]] (Normal) Collected: 06/07/25 0601 Lab Status: Preliminary result Specimen: Blood from Wrist, Left Updated: 06/11/25 0730 Blood Culture No growth at 4 days Narrative: Aerobic Bottle Only Less than seven (7) mL's of blood was collected. Insufficient quantity may yield false negative results. Radiology: Imaging Results (Last 72 Hours) Procedure Component Value Units Date/Time CT Soft Tissue Neck Without Contrast [[id number]] Collected: 06/11/25 0737 Updated: 06/11/25 0747 Narrative: [...] MD 06/11/2025 7:44 AM EDT Workstation ID: [id number] I read his radiographic images. Impression: Pneumococcal [...] from the original note were not included. [facility] Medicine Services PROGRESS NOTE Patient Name: [...] -- -- 0.9 -- Lab 06/11/25 0806/10/25 1522 06/09/25 1426 06/08/25 0848 06/07/25 0105 [...] MRSA Screen, PCR (Inpatient) - Swab, Nares [[id number]] (Abnormal) Collected: 06/08/251904 Lab Status: Final result [...] MD 06/11/2025 7:44 AM EDT Workstation ID: [id number] Results for orders placed during the hospital [...] and ESRD on HD who presents from [facility] due to AMS and concern for stroke. In addition he was found to have pneumonia and possible choledocholithiasis. Stroke team accepted in transfer to [facility]. Acute CVA, left occipital lobe --CT head [...] BID per stroke neruo and cards recs --PT/OT/WA[employer] OPERATOR evaluations- extended care Choledocholithiasis --CT A/P at [...] With: Patient Ivonne Ralph MD 06/11/25 * Casey, Aurora German, DIRECTOR OF MEDICAL EDUCATION - 06/11/2025 2:32 PM EDT Palliative Care [...] Date/Time CT Soft Tissue Neck Without Contrast [[id number]] Collected: 06/11/25736 Updated: 06/11/25746 Narrative: CT SOFT [...] MD 06/11/2025 7:44 AM EDT Workstation ID: [id number] SD ERCP pancreatic and biliary ducts [[id number]] Collected: 06/08/25 1531 Updated: 06/08/25 1552 Narrative: SD ERCP PANCREATIC AND BILIARY DUCTS Date of Exam: 06/08/2025 10:49 AM EDT Indication: ENDOSCOPIC RETROGRADE CHOLANGIOPANCREATOGRAPHY. Comparison: None available. Technique: A series of radiographic digital spot films were obtained in conjunction with an endoscopic catheterization of the biliary and pancreatic ductal system, performed by the health records technology teacher. Fluoroscopic Time: 5 minutes 57 seconds Number of Images: 10 Findings: Fluoroscopy demonstrates filling of the bile ducts. Impression: Impression: Fluoroscopy demonstrates filling of the bile ducts. Please see procedure report for full findings. Electronically Signed: Migue Mcfarlane MD 06/08/2025 3:48 PM EDT Workstation ID: [id number] Lab 06/07/25 0105 HEMOGLOBIN A1C 4.9 Diagnostics: [...] history of ESRD on HD MWF at [facility] last dialyzed yesterday. Patient was [facility] due to lethargy, confusion, weakness, initially transferred to [facility]. Subjective Interval History: Patient seen on dialysis [...] Atrial fibrillation 1. ESRD: On HD at [facility] 2. Atrial fibrillation on Eliquis 3. Hypertension [...] Name: Alexa Fuentes Date of : 1950 [id number] Surgery Progress Note Date of visit: 06/11/2025 [...] 06/11/25 08:14 EDT Cosigned by Madisyn Adler MS,MANOJ,LD at 06/11/2025 8:51 AM EDT Associated attestation - Madisyn Adler MS,RD,LD - 06/11/2025 8:51 AM EDT I have reviewed this documentation and agree. * Pantera Dc MD - 06/11/2025 7:23 AM EDT Images from the original note were not included. INFECTIOUS DISEASE Progress Note Alexa Fuentes 1950 [id number] Date of Consult: 06/08/2025 Admission Date: 06/06/2025 [...] Streptococcus pneumoniae bacteremia. He was transferred from [facility] to [facility] on 06/06 for concerns for stroke along with altered mental status. He was [facility] to be more lethargic and confused and was transferred to [facility]. His CT scanat [facility] showed acute/subacute left occipital lobe ischemia [...] was started on IV antibiotics and transferredto [facility] on 06/06. Since arrival, the patient has [...] his antibiotic therapy. His blood cultures from [facility] became positive for GPC in pairs in [...] BID, Charles Guerrero MD, 200 mg at [id number] [Held by provider] apixaban (ELIQUIS) tablet 2.5 [...] Q12H, Charles Guerrero MD, 10 mL at 06/10/25 2229 sodium chloride 0.9 % flush 10 mL, [...] MRSA Screen, PCR (Inpatient) - Swab, Nares [[id number]] (Abnormal) Collected: 06/08/251904 Lab Status: Final result Specimen: Swab from Nares Updated: 06/08/252151 MRSA PCR Positive Narrative: The negative predictive value of this diagnostic test is high and should only be used to consider de-escalating anti-MRSA therapy. A positive result may indicate colonization with MRSA and must be correlated clinically. KIMANI AURIS PCR - Swab, Axilla Right, Axilla Left and Groin [[id number]] Collected: 06/07/25 0845 Lab Status: Final result Specimen: Swab from Axilla Right, Axilla Left and Groin Updated: 06/08/25 1715 KIMANI AURIS PCR ([facility]) Not Detected Blood Culture - Blood, Wrist, Left [[id number]] (Normal) Collected: 06/07/25 0603 Lab Status: Preliminary result Specimen: Blood from Wrist, Left Updated: 06/10/25 0730 Blood Culture No growth at 3 days Narrative: Aerobic Bottle Only Less than seven (7) mL's of blood was collected. Insufficient quantity may yield false negative results. Blood Culture - Blood, Wrist, Left [[id number]] (Normal) Collected: 06/07/25 0601 Lab Status: Preliminary result Specimen: Blood from Wrist, Left Updated: 06/10/25 0730 Blood Culture No growth at 3 days Narrative: Aerobic Bottle Only Less than seven (7) mL's of blood was collected. Insufficient quantity may yield false negative results. Radiology: Imaging Results (Last 72 Hours) Procedure Component Value Units Date/Time CT Soft Tissue Neck Without Contrast - In process [[id number]] Resulted: 06/10/252256 Updated: 06/10/252257 This result has not been signed. Information might be incomplete. [place] ERCP pancreatic and biliary ducts [[id number]] Collected: 06/08/25 1531 Updated: 06/08/25 1552 Narrative: FL ERCP PANCREATIC AND BILIARY DUCTS Date of Exam: 06/08/2025 10:49 AM EDT Indication: ENDOSCOPIC RETROGRADE CHOLANGIOPANCREATOGRAPHY. Comparison: None available. Technique: A series of radiographic digital spot films were obtained in conjunction with an endoscopic catheterization of the biliary and pancreatic ductal system, performed by the health records technology teacher. Fluoroscopic Time: 5 minutes 57 seconds Number of Images: 10 Findings: Fluoroscopy demonstrates filling of the bile ducts. Impression: Impression: Fluoroscopy demonstrates filling of the bile ducts. Please see procedure report for full findings. Electronically Signed: Migue Mcfarlane MD 06/08/2025 3:48 PM EDT Workstation ID: [id number] I read his radiographic images. Impression: Pneumococcal [...] history of ESRD on HD MWF at [facility] last dialyzed yesterday. Patient was transferred from [facility] due to lethargy, confusion, weakness, initially transferred to [facility]. Subjective Interval History: Looking much better today. [...] Atrial fibrillation 1. ESRD: On HD at [facility]. 2. Atrial fibrillation on Eliquis 3. Hypertension [...] from the original note were not included. [facility] Medicine Services PROGRESS NOTE Patient Name: [...] MRSA Screen, PCR (Inpatient) - Swab, Nares [[id number]] (Abnormal) Collected: 06/08/251904 Lab Status: Final result [...] biliary andpancreatic ductal system, performed by the health records technology teacher. Fluoroscopic Time: 5 minutes 57 seconds Number of Images: 10 Findings: Fluoroscopy demonstrates filling of the bile ducts. Impression: Impression: Fluoroscopy demonstrates filling of the bile ducts. Please see procedure report for full findings. Electronically Signed: Migue Mcfarlane MD 06/08/2025 3:48 PM EDT Workstation ID: [id number] Results for orders placed during the hospital [...] and ESRD on HD who presents from [facility] due to AMS and concern for stroke. In addition he was found to have pneumonia and possible choledocholithiasis. Stroke team accepted in transfer to [facility]. Acute CVA, left occipital lobe --CT head [...] 81 mg; continue atorvastatin 80 mg nightly --PT/OT/WA[employer]EWATER [employer]ANT OPERATOR evaluations Choledocholithiasis --[facility]P at [facility] showed [...] AM-PAC 6 Clicks Score (PT): 10 (06/10/25 0822) CODE STATUS: Code Status and Medical Interventions: [...] Name: Alexa Fuentes Date of : 1950 [id number] Surgery Progress Note Date of visit: 06/10/2025 [...] INFECTIOUS DISEASE Progress Note Alexa Fuentes 1950 [id number] Date of Consult: 06/08/2025 Admission Date: 06/06/2025 [...] Streptococcus pneumoniae bacteremia. He was transferred from [facility] to [facility] on 06/06 for concerns for stroke along with altered mental status. He was noted at [facility] to be more lethargic and confused and was transferred to [facility]. His CT scanat [facility] showed acute/subacute left occipital lobe ischemia [...] was started on IV antibiotics and transferredto [facility] on 06/06. Since arrival, the patient has [...] his antibiotic therapy. His blood cultures from [facility] became positive for GPC in pairs in [...] BID, Charles Guerrero MD, 200 mg at [id number] [Held by provider] apixaban (ELIQUIS) tablet 2.5 [...] , Not Applicable, PRGayla, Charles Guerrero MD Potassium Replacement - Follow [...] MRSA Screen, PCR (Inpatient) - Swab, Nares [[id number]] (Abnormal) Collected: 06/08/25 190 Lab Status: Final result Specimen: Swab from Nares Updated: 06/08/25 215 MRSA PCR Positive Narrative: The negative predictive value of this diagnostic test is high and should only be used to consider de-escalating anti-MRSA therapy. A positive result may indicate colonization with MRSA and must be correlated clinically. KIMANI AURIS PCR - Swab, Axilla Right, Axilla Left and Groin [[id number]] Collected: 06/07/25 0845 Lab Status: Final result Specimen: Swab from Axilla Right, Axilla Left and Groin Updated: 06/08/25 1715 KIMANI AURIS PCR ([facility]) Not Detected Blood Culture - Blood, Wrist, Left [[id number]] (Normal) Collected: 06/07/25 0603 Lab Status: Preliminary result Specimen: Blood from Wrist, Left Updated: 06/09/25 0730 Blood Culture No growth at 2 days Narrative: Aerobic Bottle Only Less than seven (7) mL's of blood was collected. Insufficient quantity may yield false negative results. Blood Culture - Blood, Wrist, Left [[id number]] (Normal) Collected: 06/07/25 0601 Lab Status: Preliminary result Specimen: Blood from Wrist, Left Updated: 06/09/25 0730 Blood Culture No growth at 2 days Narrative: Aerobic Bottle Only Less than seven (7) mL's of blood was collected. Insufficient quantity may yield false negative results. Radiology: Imaging Results (Last 72 Hours) Procedure Component Value Units Date/Time FL ERCP pancreatic and biliary ducts [[id number]] Collected: 06/08/25 1531 Updated: 06/08/25 1552 Narrative: FL ERCP PANCREATIC AND BILIARY DUCTS Date of Exam: 06/08/2025 10:49 AM EDT Indication: ENDOSCOPIC RETROGRADE CHOLANGIOPANCREATOGRAPHY. Comparison: None available. Technique: A series of radiographic digital spot films were obtained in conjunction with an endoscopic catheterization of the biliary and pancreatic ductal system, performed by the health records technology teacher. Fluoroscopic Time: 5 minutes 57 seconds Number of Images: 10 Findings: Fluoroscopy demonstrates filling of the bile ducts. Impression: Impression: Fluoroscopy demonstrates filling of the bile ducts. Please see procedure report for full findings. Electronically Signed: Migue Mcfarlane MD 06/08/2025 3:48 PM EDT Workstation ID: [id number] WASTEWATER PLANT OPERATOR FEES - Fiberoptic Endo Eval Swallow [[id number]] Resulted: 06/07/251658 Updated: 06/07/251658 Narrative: This procedure was auto-finalized with no dictation required. MRI abdomen wo contrast mrcp [[id number]] Collected: 06/07/25 1008 Updated: 06/07/25 1029 Narrative: [...] hydronephrosis. No dilated bowel loops within the ktgdg-ow-wtso. No free fluid in the abdomen. No [...] MD 06/07/2025 10:26 AM EDT Workstation ID: [id number] MRI Brain Without Contrast [[id number]] Collected: 06/07/25 1013 Updated: 06/07/25 1026 Narrative: [...] MD 06/07/2025 10:22 AM EDT Workstation ID: [id number] I read his radiographic images. Impression: Acute [...] PLAN/RECOMMENDATIONS: Follow blood cultures here and at [facility] Continue Rocephin 2 GM IV daily Please call [facility] laboratory to have then fax final blood [...] from the original note were not included. [facility] Medicine Services PROGRESS NOTE Patient Name: Aelxa Fuentes : 1950 Date of Admission: 06/06/2025 [...] MRSA Screen, PCR (Inpatient) - Swab, Nares [[id number]] (Abnormal) Collected: 06/08/251904 Lab Status: Final result [...] biliary andpancreatic ductal system, performed by the health records technology teacher. Fluoroscopic Time: 5 minutes 57 seconds Number of Images: 10 Findings: Fluoroscopy demonstrates filling of the bile ducts. Impression: Impression: Fluoroscopy demonstrates filling of the bile ducts. Please see procedure report for full findings. Electronically Signed: Migue Mcfarlane MD 06/08/2025 3:48 PM EDT Workstation ID: [id number] Duplex Carotid Ultrasound CAR Result Date: 06/07/2025 Right internal carotid artery demonstrates a less than 50% stenosis. Right vertebral artery was notvisualized. Left internal carotid artery demonstrates a less than 50% stenosis. Antegrade left vertebral flow. WASTEWATER PLANT OPERATOR FEES - Fiberoptic Endo Eval Swallow Result [...] and ESRD on HD who presents from [facility] due to AMS and concern for stroke. In addition he was found to have pneumonia and possible choledocholithiasis. Stroke team accepted in transfer to [facility]. Acute encephalopathy- improving --Likely multifactorial due to [...] 81 mg; continue atorvastatin 80 mg nightly --PT/OT/WASTEWATER PLANT OPERATOR evaluations Choledocholithiasis --CT A/P at OSH showed [...] history of ESRD on HD MWF at [facility] last dialyzed yesterday. Patient was transferred from [facility] due to lethargy, confusion, weakness, initially transferred to [facility]. Subjective Interval History: Patient back from laparoscopic [...] Atrial fibrillation 1. ESRD: On HD at [facility]. 2. Atrial fibrillation on Eliquis 3. Hypertension [...] INFECTIOUS DISEASE Progress Note Alexa Fuentes 1950 [id number] Date of Consult: 06/08/2025 Admission Date: 06/06/2025 [...] Streptococcus pneumoniae bacteremia. He was transferred from [facility] to [facility] on 06/06 for concerns for stroke along with altered mental status. He was noted at [facility] to be more lethargic and confused and was transferred to [facility]. His CT scanat [facility] showed acute/subacute left occipital lobe ischemia [...] was started on IV antibiotics and transferredto [facility] on 06/06. Since arrival, the patient has [...] his antibiotic therapy. His blood cultures from [facility] became positive for GPC in pairs in [...] MRSA Screen, PCR (Inpatient) - Swab, Nares [[id number]] (Abnormal) Collected: 06/08/25 190 Lab Status: Final result Specimen: Swab from Nares Updated: 06/08/252151 MRSA PCR Positive Narrative: The negative predictive value of this diagnostic test is high and should only be used to consider de-escalating anti-MRSA therapy. A positive result may indicate colonization with MRSA and must be correlated clinically. KIMANI AURIS PCR - Swab, Axilla Right, Axilla Left and Groin [[id number]] Collected: 06/07/25 0845 Lab Status: Final result Specimen: Swab from Axilla Right, Axilla Left and Groin Updated: 06/08/25 1715 KIMANI AURIS PCR ([facility]) Not Detected Blood Culture - Blood, Wrist, Left [[id number]] (Normal) Collected: 06/07/25 0603 Lab Status: Preliminary result Specimen: Blood from Wrist, Left Updated: 06/09/25 0730 Blood Culture No growth at 2 days Narrative: Aerobic Bottle Only Less than seven (7) mL's of blood was collected. Insufficient quantity may yield false negative results. Blood Culture - Blood, Wrist, Left [[id number]] (Normal) Collected: 06/07/25 0601 Lab Status: Preliminary result Specimen: Blood from Wrist, Left Updated: 06/09/25 0730 Blood Culture No growth at 2 days Narrative: Aerobic Bottle Only Less than seven (7) mL's of blood was collected. Insufficient quantity may yield false negative results. Radiology: Imaging Results (Last 72 Hours) Procedure Component Value Units Date/Time FL ERCP pancreatic and biliary ducts [[id number]] Collected: 06/08/25 1531 Updated: 06/08/25 1552 Narrative: FL ERCP PANCREATIC AND BILIARY DUCTS Date of Exam: 06/08/2025 10:49 AM EDT Indication: ENDOSCOPIC RETROGRADE CHOLANGIOPANCREATOGRAPHY. Comparison: None available. Technique: A series of radiographic digital spot films were obtained in conjunction with an endoscopic catheterization of the biliary and pancreatic ductal system, performed by the health records technology teacher. Fluoroscopic Time: 5 minutes 57 seconds Number of Images: 10 Findings: Fluoroscopy demonstrates filling of the bile ducts. Impression: Impression: Fluoroscopy demonstrates filling of the bile ducts. Please see procedure report for full findings. Electronically Signed: Migue Mcfarlane MD 06/08/2025 3:48 PM EDT Workstation ID: [id number] WASTEWATER PLANT OPERATOR FEES - Fiberoptic Endo Eval Swallow [[id number]] Resulted: 06/07/25 165 Updated: 06/07/25 165 Narrative: This procedure was auto-finalized with no dictation required. MRI abdomen wo contrast mrcp [[id number]] Collected: 06/07/25 1008 Updated: 06/07/25 1029 Narrative: [...] hydronephrosis. No dilated bowel loops within the konhn-ec-lsnl. No free fluid in the abdomen. No [...] MD 06/07/2025 10:26 AM EDT Workstation ID: [id number] MRI Brain Without Contrast [[id number]] Collected: 06/07/25 1013 Updated: 06/07/25 1026 Narrative: [...] MD 06/07/2025 10:22 AM EDT Workstation ID: [id number] CT Outside Films [[id number]] Resulted: 06/06/252046 Updated: 06/06/252046 Narrative: This procedure was auto-finalized with no dictation required. CT Outside Abd/Pelvis [[id number]] Resulted: 06/06/252046 Updated: 06/06/252046 Narrative: This procedure was auto-finalized with no dictation required. CT Outside Head [[id number]] Resulted: 06/06/252046 Updated: 06/06/252046 Narrative: This procedure was auto-finalized with no dictation required. CT Outside Films [[id number]] Resulted: 06/06/252046 Updated: 06/06/252046 Narrative: This procedure was auto-finalized with no dictation required. CT Outside Neck [[id number]] Resulted: 06/06/252046 Updated: 06/06/252046 Narrative: This procedure [...] PLAN/RECOMMENDATIONS: Follow blood cultures here and at [facility] Continue Rocephin 2 GM IV daily Stop Flagyl Please call [facility] laboratory to have then fax final blood [...] Reason for Encounter: Pressure Injury Stg 2+ [facility] Clinical Nutrition Assessment Subjective Subjective Information [...] renal disease) Atrial fibrillation Applicable Nutrition Hx WASTEWATER PLANT OPERATOR Recommendation (06/07) regular textures, thin liquids Anthropometrics [...] (last 3 days) 06/05 0706/06 0706/06 0706/07 0706/07 0706/08 0706/08 0706/09 07 [address] [...] from the original note were not included. [facility] Medicine Services PROGRESS NOTE Patient Name: [...] than 50% stenosis. Antegrade left vertebral flow. WASTEWATER PLANT OPERATOR FEES - Fiberoptic Endo Eval Swallow Result [...] hydronephrosis. No dilated bowel loops within the qnwvr-yp-yclh. No free fluid in the abdomen. No [...] MD 06/07/2025 10:26 AM EDT Workstation ID: [id number] MRI Brain Without Contrast Result Date: 06/07/2025 [...] MD 06/07/2025 10:22 AM EDT Workstation ID: [id number] CT Outside Films Result Date: 06/06/2025 This [...] and ESRD on HD who presents from [facility] due to AMS and concern for stroke. In addition he was found to have pneumonia and possible choledocholithiasis. Stroke team accepted in transfer to [facility]. Acute encephalopathy- improving --Likely multifactorial due to [...] ASA 81mg; continue atorvastatin 80 mg nightly --PT/OT/WASTEWATER PLANT OPERATOR evaluations Choledocholithiasis --CT A/P at OSH showed [...] history of ESRD on HD MWF at [facility] last dialyzed yesterday. Patient was transferred from [facility] due to lethargy, confusion, weakness, initially transferred to [facility]. Subjective Interval History: Patient seen on dialysis. [...] Atrial fibrillation 1. ESRD: On HD at [facility]. 2. Atrial fibrillation on Eliquis 3. Hypertension [...] from the original note were not included. [facility] Medicine Services PROGRESS NOTE Patient Name: [...] hydronephrosis. No dilated bowel loops within the miuoz-pa-ggyr. No free fluid in the abdomen. No [...] MD 06/07/2025 10:26 AM EDT Workstation ID: [id number] MRI Brain Without Contrast Result Date: 06/07/2025 [...] MD 06/07/2025 10:22 AM EDT Workstation ID: [id number] CT Outside Films Result Date: 06/06/2025 This [...] and ESRD on HD who presents from [facility] due to AMS and concern for stroke. In addition he was found to have pneumonia and possible choledocholithiasis. Stroke team accepted in transfer to [facility]. Acute encephalopathy --Likely multifactorial due to pneumonia, [...] 81 mg; continue atorvastatin 80 mg nightly --PT/OT/WASTEWATER PLANT OPERATOR evaluations Choledocholithiasis --CT A/P at OSH showed [...] HD (Wednesday, Wednesday, Wednesday) who presented to [facility] emergency department from his SNF for further [...] in the left occipital lobe. 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 [facility] Medicine Services HISTORY AND PHYSICAL Patient Name: Alexa Fuentes : 1950 Primary Care Physician: Jeffrey Sun MD Date of admission: 06/06/2025 Subjective Subjective Chief Complaint: Altered mental status HPI: Alexa Fuentes is a 74 y.o. male with PMHx significant for end-stage CKD on hemodialysis (M/W/F), atrial fibrillation on Eliquis, COPD, hyperlipidemia, and hypertension. He was directly admitted to [facility] from [facility] for evaluation of altered mental status and concern for stroke. Earlier in the day, the patient was undergoing his scheduled dialysis session and was transferred back to his nursing facility. Nursing staff noticed that he was more lethargic, confused, and weak than usual, prompting activation of a stroke code. EMS transported him to [facility]. On arrival, he was placed on a [...] minutes Time spent includes time reviewing chart, alxm-az-lxuh time, counseling patient/family/caregiver, ordering medications/tests/procedures, communicating with other health child care group leader, documenting clinical information in the electronic health [...] different things in a brief conversation during basket machine operator encounter. I'm okay..not much worse than me. No spiritual needs met at this time. Patient reported that he was about to sleep, then went back to looking at videos on his phone. Medical Staff Director may follow up to see if patient would like to talk at a better time. * Pantera Dc MD - 06/08/2025 6:14 PM EDTAssociated Order(s): IP CONSULT TO INFECTIOUS DISEASES Images from the original note were not included. INFECTIOUS DISEASE CONSULT/INITIAL HOSPITAL VISIT Alexa Fuentes 1950 [id number] Date of Consult: 06/08/2025 Admission Date: 06/06/2025 [...] Streptococcus pneumoniae bacteremia. He was transferred from [facility] to [facility] on 06/06 for concerns for stroke along with altered mental status. He was noted at his NH to be more lethargic and confused and was transferred to [facility]. His CT scan at [facility] showed acute/subacute left occipital lobe ischemia [...] started on IV antibiotics and transferred to [facility] on 06/06. Since arrival, the patient has [...] his antibiotic therapy. His blood cultures from [facility] became positive for GPC in pairs in [...] MRSA Screen, PCR (Inpatient) - Swab, Nares [[id number]] (Abnormal) Collected: 06/08/25 1905 Lab Status: Final result Specimen: Swab from Nares Updated: 06/08/25 215 MRSA PCR Positive Narrative: The negative predictive value of this diagnostic test is high and should only be used to consider de-escalating anti-MRSA therapy. A positive result may indicate colonization with MRSA and must be correlated clinically. KIMANI AURIS PCR - Swab, Axilla Right, Axilla Left and Groin [[id number]] Collected: 06/07/25 0845 Lab Status: Final result Specimen: Swab from Axilla Right, Axilla Left and Groin Updated: 06/08/25 1715 KIMANI AURIS PCR ([facility]) Not Detected Blood Culture - Blood, Wrist, Left [[id number]] (Normal) Collected: 06/07/25 0603 Lab Status: Preliminary result Specimen: Blood from Wrist, Left Updated: 06/08/25 0730 Blood Culture No growth at 24 hours Narrative: Aerobic Bottle Only Less than seven (7) mL's of blood was collected. Insufficient quantity may yield false negative results. Blood Culture - Blood, Wrist, Left [[id number]] (Normal) Collected: 06/07/25 0601 Lab Status: Preliminary result Specimen: Blood from Wrist, Left Updated: 06/08/25 0730 Blood Culture No growth at 24 hours Narrative: Aerobic Bottle Only Less than seven (7) mL's of blood was collected. Insufficient quantity may yield false negative results. Radiology: Imaging Results (Last 72 Hours) Procedure Component Value Units Date/Time FL ERCP pancreatic and biliary ducts [[id number]] Collected: 06/08/25 1531 Updated: 06/08/25 1552 Narrative: FL ERCP PANCREATIC AND BILIARY DUCTS Date of Exam: 06/08/2025 10:49 AM EDT Indication: ENDOSCOPIC RETROGRADE CHOLANGIOPANCREATOGRAPHY. Comparison: None available. Technique: A series of radiographic digital spot films were obtained in conjunction with an endoscopic catheterization of the biliary and pancreatic ductal system, performed by the health records technology teacher. Fluoroscopic Time: 5 minutes 57 seconds Number of Images: 10 Findings: Fluoroscopy demonstrates filling of the bile ducts. Impression: Impression: Fluoroscopy demonstrates filling of the bile ducts. Please see procedure report for full findings. Electronically Signed: Migue Maeve, MD 06/08/2025 3:48 PM EDT Workstation ID: [id number] WASTEWATER PLANT OPERATOR FEES - Fiberoptic Endo Eval Swallow [[id number]] Resulted: 06/07/251658 Updated: 06/07/251658 Narrative: This procedure was auto-finalized with no dictation required. MRI abdomen wo contrast mrcp [[id number]] Collected: 06/07/25 1008 Updated: 06/07/25 102 Narrative: MRI ABDOMEN WO CONTRAST MRCP Date [...] hydronephrosis. No dilated bowel loops within the oawnt-np-bwcj. No free fluid in the abdomen. No [...] MD 06/07/2025 10:26 AM EDT Workstation ID: [id number] MRI Brain Without Contrast [[id number]] Collected: 06/07/25 1013 Updated: 06/07/25 1026 Narrative: [...] MD 06/07/2025 10:22 AM EDT Workstation ID: [id number] CT Outside Films [[id number]] Resulted: 06/06/252046 Updated: 06/06/252046 Narrative: This procedure was auto-finalized with no dictation required. CT Outside Abd/Pelvis [[id number]] Resulted: 06/06/252046 Updated: 06/06/252046 Narrative: This procedure was auto-finalized with no dictation required. CT Outside Head [[id number]] Resulted: 06/06/252046 Updated: 06/06/252046 Narrative: This procedure was auto-finalized with no dictation required. CT Outside Films [[id number]] Resulted: 06/06/252046 Updated: 06/06/252046 Narrative: This procedure was auto-finalized with no dictation required. CT Outside Neck [[id number]] Resulted: 06/06/252046 Updated: 06/06/252046 Narrative: This procedure [...] following: Follow blood cultures here and at [facility] Continue Rocephin 2 GM IV daily Continue Flagyl 500 mg IV Q8H Awaiting evaluation on 06/09 for possible cholecystectomy Please call [facility] laboratory to have then fax final blood [...] Note Date of Service: 06/08/2025 Alexa Fuentes [id number] 1950 Referring Provider: Berkley Ralph* Location of Consult: Inpatient Reason for Consultation: Choledocholithiasis History of Present Illness: I am seeing, Alexa Fuentes, in consultation at request of Berkley Ralph* regarding choledocholithiasis. He is a 74-year-old gentleman with history of hypertension, hyperlipidemia, COPD, atrial fibrillation on Eliquis, and end-stage renal disease on hemodialysis who was transferred to [facility] due to concern for altered mental status. [...] 1 tablet by mouth Every Night. B Bosxsjt-I-Lmpve Acid (CHRISTINE-CLAUDE PO) Take 1 tablet by [...] Day. 30-600mg 1 tablet twice daily between 3509-6241 loperamide (IMODIUM) 2 MG capsule Take 1 [...] Times a Week. Mon, Wed, Sat between 0732-6674 montelukast (SINGULAIR) 10 MG tablet Take 1 [...] Father Social History: Pt lives in [facility]. Tobacco use: Denies EtOH use : Denies [...] pancreatic and biliary ducts - In process [[id number]] Resulted: 06/08/25 1049 Updated: 06/08/25 1252 This result has not been signed. Information might be incomplete. WASTEWATER PLANT OPERATOR FEES - Fiberoptic Endo Eval Swallow [[id number]] Resulted: 06/07/25 165 Updated: 06/07/251658 Narrative: This procedure was auto-finalized with no dictation required. MRI abdomen wo contrast mrcp [[id number]] Collected: 06/07/25 1008 Updated: 06/07/25 1029 Narrative: [...] hydronephrosis. No dilated bowel loops within the fvmjv-ko-pboi. No free fluid in the abdomen. No [...] MD 06/07/2025 10:26 AM EDT Workstation ID: [id number] MRI Brain Without Contrast [[id number]] Collected: 06/07/25 1013 Updated: 06/07/25 1026 Narrative: [...] MD 06/07/2025 10:22 AM EDT Workstation ID: [id number] CT Outside Films [[id number]] Resulted: 06/06/252046 Updated: 06/06/252046 Narrative: This procedure was auto-finalized with no dictation required. CT Outside Abd/Pelvis [[id number]] Resulted: 06/06/252046 Updated: 06/06/252046 Narrative: This procedure was auto-finalized with no dictation required. CT Outside Head [[id number]] Resulted: 06/06/252046 Updated: 06/06/252046 Narrative: This procedure was auto-finalized with no dictation required. CT Outside Films [[id number]] Resulted: 06/06/252046 Updated: 06/06/252046 Narrative: This procedure was auto-finalized with no dictation required. CT Outside Neck [[id number]] Resulted: 06/06/252046 Updated: 06/06/252046 Narrative: This procedure [...] of this note may be an electronic ergonomics consultant/translation of spoken language to printed textusing the Digital Tech Frontieration System. * Char Ospina RN - 06/08/2025 11:02 AM EDTAssociated Order(s): IP CONSULT TO BEVELING AND EDGING MACHINE OPERATOR Chart review for certified adaptive physical educator consult. At the time of this [...] PM EDTAssociated Order(s): IP CONSULT TO [facility]STRO[facility]OLOGY [facility] [place] Referring Provider: Madisyn Lopez DO [...] 4x Daily - RT pharmacy consult - [facility], , Not Applicable, Daily metroNIDAZOLE, 500 mg, [...] tablet by mouth Every Night. Unknown B Oopnpzm-K-Ciewa Acid (CHRISTINE-CLAUDE PO) Take 1 tablet by [...] Day. 30-600mg 1 tablet twice daily between 1397-1444 Unknown loperamide (IMODIUM) 2 MG capsule Take [...] Times a Week. Mon, Wed, Sat between 3286-9958 Unknown montelukast (SINGULAIR) 10 MG tablet Take [...] consult, , Not Applicable, Daily, Zuleyma Pina, [facility] metroNIDAZOLE (FLAGYL) IVPB 500 mg, 500 mg, [...] Units Date/Time MRI abdomen wo contrast mrcp [[id number]] Collected: 06/07/25 1008 Updated: 06/07/25 1029 Narrative: [...] hydronephrosis. No dilated bowel loops within the btidx-eb-vonp. No free fluid in the abdomen. No [...] MD 06/07/2025 10:26 AM EDT Workstation ID: [id number] MRI Brain Without Contrast [[id number]] Collected: 06/07/25 1013 Updated: 06/07/25 1026 Narrative: [...] MD 06/07/2025 10:22 AM EDT Workstation ID: [id number] CT Outside Films [[id number]] Resulted: 06/06/252046 Updated: 06/06/252046 Narrative: This procedure was auto-finalized with no dictation required. CT Outside Abd/Pelvis [[id number]] Resulted: 06/06/252046 Updated: 06/06/252046 Narrative: This procedure was auto-finalized with no dictation required. CT Outside Head [[id number]] Resulted: 06/06/252046 Updated: 06/06/252046 Narrative: This procedure was auto-finalized with no dictation required. CT Outside Films [[id number]] Resulted: 06/06/252046 Updated: 06/06/252046 Narrative: This procedure was auto-finalized with no dictation required. CT Outside Neck [[id number]] Resulted: 06/06/252046 Updated: 06/06/252046 Narrative: This procedure [...] history of ESRD on HD MWF at [facility] last dialyzed yesterday. [facility] was [facility] from [facility] due to lethargy, confusion, weakness, initially transferred to [facility]. CT head revealed acute/subacute left occipital lobe ischemia, CTA showed nolarge vessel occlusion. Patient has been on Eliquis prior to this. He was later transferred to [facility]. Recent labs showed a high WBC 21k, [...] tablet by mouth Every Night. Unknown B Lpbxxhg-F-Vjfgk Acid (CHRISTINE-CLAUDE PO) Take 1 tablet by [...] Day. 30-600mg 1 tablet twice daily between 4353-6088 Unknown loperamide (IMODIUM) 2 MG capsule Take [...] Times a Week. Mon, Wed, Sat between 8056-0100 Unknown montelukast (SINGULAIR) 10 MG tablet Take [...] Occipital stroke 1. ESRD: On HD at [facility]. 2. Atrial fibrillation on Eliquis 3. Hypertension [...] Jeffrey Sun MD Referring Physician: Dr. Lopez, [facility] ED TIME STROKE TEAM CALLED: 1638 EST TIME PATIENT ARRIVED TO [facility]: 2029 EST TIME PATIENT SEEN: 2039 EST Handedness: Right Race: Chief Complaint/Reason for Consultation: CT findings HPI: Mr. Fuentes is a 74-year-old male with known medical diagnoses of atrial fibrillation (on Eliquis to 2.5 mg twice daily), COPD (not oxygen dependent), HLD, and CKD on HD (Wednesday, Wednesday, Wednesday) who presented to [facility] emergency department from his SNF for further [...] medical history. He typically receives care at [facility]. His nieceand nephew are present at the bedside. They report that after dialysis today he was taken back to his nursing facility and at that time he was not as responsive as normal. He was taken here to [facility] for further workup and evaluation. Blood sugar as well as blood pressure were reported to be normal at that time. Secondary to CT head findings he was transferred to [facility] for further workup and evaluation. CT head [...] sodium chloride Functional Status Prior to Current Stroke/Morgan Score: 4 NIH Stroke Scale Time: 20:47 [...] HD (Wednesday, Wednesday, Wednesday) who presented to [facility] emergency department from his SNF for further [...] hospitalist service for further stroke workup. Antiplatelet VICE PRESIDENT [employer]VERT[employer] SALES: None Anticoagulant VICE PRESIDENT [employer] SALES: Eliquis 2.5 mg twice daily Late acute/subacute [...] Activity as tolerated, fall risk precautions - PT/OT/WASTEWATER PLANT OPERATOR evaluation - Case management assistance needed, long-term [facility] placement prior to admission 2. Essential hypertension [...] BM this morning, plan for discharge to [facility] today. 0930: Palliative IDT discussion: ANA CARVALHO, RN, SW, Medical Staff Director After hours, weekends and holidays, contact Palliative Provider by calling [phone] Problem: Palliative Care Goal: Enhanced Quality of Life Outcome: Adequate for Care Transition Intervention: Maximize Comfort Flowsheets (Taken 06/14/2025 1432) Pain Management Interventions: (No observable signs of discomfort; has not required pain medicationin several days) other (see comments) Intervention: Promote Advance Care Planning Flowsheets (Taken 06/14/2025 1432) Life Transition/Adjustment: (discharge today to [facility]) other (see comments) * Jai Zayas RN - 06/14/2025 1:10 PM EDT Report given to Bobby HAGEN at [facility] * Shahnaz Gayle RN - 06/14/2025 11:38 AM EDT [facility] 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 It [...] Howell RN - 06/14/2025 12:05 AM EDT call center coordinator provider paged to report elevated bp * [...] 06/13/2025 3:19 AM EDT Call placed to it operations specialist provider to report right sided nose bleed. Per dayshift RN patient felt nasal cannula was making his nose dry. Humidification added during 1999 round. DIRECTOR OF MEDICAL EDUCATION to enter orders. * Terra Valverde Speech Therapy Student - 06/12/2025 9:30 AM EDT Goal Outcome Evaluation: Plan of Care Reviewed With: (P) patient Progress: (P) no change (eval) Anticipated Discharge Disposition (WASTEWATER PLANT OPERATOR): (P) [facility] facility WASTEWATER PLANT OPERATOR Diagnosis: (P) moderate, dysarthria, mild, cognitive-linguistic disorder (06/12/25929) WASTEWATER PLANT OPERATOR Diagnosis Comments: (P) Pt reports that his short-term memory is worse than his group home said, I can recall things that happened 25 years ago. Pt stated that he would prefer to work on his speech instead of memory and cognition. (06/12/25929) Cosigned by Patricia Munoz MS CCC-WASTEWATER PLANT OPERATOR at 06/12/2025 1:03 PM EDT Associated attestation - Patricia Munoz, [facility]-WASTEWATER PLANT OPERATOR - 06/12/2025 1:03 PM EDT Patricia Munoz, MS [facility]-WASTEWATER PLANT OPERATOR * Kieran Smalls RN - 06/11/2025 2:30 PM EDT Goal Outcome Evaluation: Palliative RN visit with pt at bedside. Co-visit with Palliative DIRECTOR OF MEDICAL EDUCATIONGayla Peña. Pt just returned from dialysis. Per [...] Refused low-air loss bed, form signed. Turned [id number], safety precautions in place. * Cayla Burnett RN - 06/09/2025 7:49 AM EDT Pt A&Ox4, RA, Sinus Francisco on tele, no c/o pain or nausea, NIH=3. Report call to NON LICENSED NUCLEAR EQUIPMENT OPERATOR @ 0736. * Beau Henao RN - [...] Gayle RN - 06/08/2025 8:00 AM EDT [facility] consult for Comments: Patient agreeable to jesenia specialty mattress, he thought [facility] meant an air mattress such as the waffle pads Ordered jesenia ervin from [facility]. * Mariza Brunson, MS CCC-WASTEWATER PLANT OPERATOR - 06/07/2025 5:12 PM EDT Goal Outcome Evaluation: Plan of Care Reviewed With: patient, family Progress: improving Anticipated Discharge Disposition (WASTEWATER PLANT OPERATOR): [facility] facility WASTEWATER PLANT OPERATOR Diagnosis: functional cognitive-linguistic skills (06/07/25 1330) WASTEWATER PLANT OPERATOR Diagnosis Comments: Pt son reported this is baseline for pt. (06/07/25 133) WASTEWATER PLANT OPERATOR Swallowing Diagnosis: functional oral phase, functional pharyngeal phase (06/07/25 1630) * Roxanne Travis, Speech Therapy Student - 06/07/2025 2:30 PM EDT Goal Outcome Evaluation: Plan of Care Reviewed With: (P) patient, child Progress: (P) no change Anticipated Discharge Disposition (WASTEWATER PLANT OPERATOR): (P) [facility] facility WASTEWATER PLANT OPERATOR Diagnosis: (P) functional cognitive-linguistic skills (06/07/25 1330) WASTEWATER PLANT OPERATOR Diagnosis Comments: (P) Pt son reported this is baseline for pt. (06/07/25 1330) WASTEWATER PLANT OPERATOR Swallowing Diagnosis: (P) functional oral phase, suspected pharyngeal dysphagia (06/07/25 133) Cosigned by Batsheva Spears MS CCC-WASTEWATER PLANT OPERATOR at 06/07/2025 3:27 PM EDT Associated attestation - Batsheva Spears MS CCC-WASTEWATER PLANT OPERATOR - 06/07/2025 3:27 PM EDT Batsheva Spears MS CCC-WASTEWATER PLANT OPERATOR * Shahnaz Gayle RN - 06/07/2025 2:26 [...] Score: 13 (06/07/25 0800) Specialty support surface: [facility] Offered Patient bariatric Low Air Loss bed [...] palliative care discussed 929 Palliative IDT meeting: DIRECTOR OF MEDICAL EDUCATION ;RNs; MDIV; MARGIN TRIMMER After hours, weekends and holidays, contact Palliative Provider by calling [phone]. * Linda Schafer RN - 06/07/2025 6:18 [...] Name: Alexa Fuentes Date of : 1950 [id number] 06/09/2025 PREOPERATIVE DIAGNOSIS: Choledocholithiasis POSTOPERATIVE DIAGNOSIS: Same PROCEDURE PERFORMED: Laparoscopic cholecystectomy SURGEON: Charles Guerrero MD HOME RESTORATION SERVICE CLEANER: None SPECIMENS: Gallbladder and contents ANESTHESIA: General. [...] of 0 Vicryl was then placed in [id number]-[id number] fashion around the defect,and a blunt trocar [...] Surgeon(s): Charles Guerrero MD Anesthesia: General Staff: Textile Engraver: Haydee Tsang RN Scrub Person: Pura Baker [employer] Information Architect: Jade Fraire PCT Estimated Blood Loss: minimal [...] 06/14/2025 1:49 PM EDT Continued Stay Note [facility] Patient Name: Alexa Fuentes Today's Date: 06/14/2025 Admit Date: 06/06/2025 Plan: Home Discharge Plan Row Name 06/14/25 1348 Plan Plan Comments Spoke with [facility] and confimed need for Vanco x5 more doses during HD with order faxed and recieved. Discharge Codes No documentation. Expected Discharge Date and Time Expected Discharge Date Expected Discharge Time Jun 14, 2025 Tesha Coelho RN * Case Management/Social Work - Tesha Coelho RN - 06/12/2025 12:00 PM EDT Case Management Discharge Note Final Note: Pt to discharge back to [facility] after HD on 06/13/2025. Nurse to call report [phone] cook [phone]. Discharge summary to be faxed to [phone] and [phone]. Nurse to notify when ready for EMS dispatch if prior to 1530. PCS signed. Selected Continued Care - Admitted Since 06/06/2025 Destination Coordination complete. Service Provider Services Address Phone Fax Patient Preferred [facility] Intermediate Care [address] [place], [place] [address] [address] -- Durable Medical Equipment No services have been selected for the patient. Dialysis/Infusion Coordination complete. Service Provider Services Address Phone Fax Patient Preferred [facility] D[facility] Hemodialysis [address] [facility] [id number] -- Home Medical Care No services have [...] 06/12/2025 11:59 AM EDT Continued Stay Note [facility] Patient Name: Alexa Fuentes Today's Date: 06/12/2025 Admit Date: 06/06/2025 Plan: Home Discharge Plan Row Name 06/12/25 1151 Plan Plan Home Patient/Family in Agreement with Plan yes Plan Comments Spoke with [facility] in HD in [place] and they currently have the 1000mg in 250ml Vanco that pt is ordered to recieve tomorrow during HD and will be able to administer. At this time CM unable to verify duration of ABX. Also notified admissions at [facility] that plan is for pt to return tomorrow after HD and explained his ABX regimen. CM will fax discharge summary to facility and HD clinic at discharge. Attempt made to notify pt at bedside but he was sleeping. Will follow up to get IMM and EMS DNR signed Final Discharge Disposition Code 04 - [facility] care facility Final Note -- Discharge Codes No documentation. Expected Discharge Date and Time Expected Discharge Date Expected Discharge Time Jun 11, 2025 Tesha Coelho RN * Therapy Re-Evaluation - Terra Valverde, Speech Therapy Student - 06/12/2025 9:30 AM EDT Acute Care - Speech Language Pathology Re-Evaluation [facility] Cognitive-Communication Evaluation Patient Name: Alexa Fuentes [...] CHOLECYSTECTOMY LAPAROSCOPIC; Surgeon: Charles Guerrero MD; Location: [facility] OR; Service: General; Laterality: N/A; COLONOSCOPY ERCP N/A 06/08/2025 Procedure: ENDOSCOPIC RETROGRADE CHOLANGIOPANCREATOGRAPHY; Surgeon: Kishore Foote MD; Location: [facility] ENDOSCOPY; Service: Gastroenterology; Laterality: N/A; KNEE SURGERY Right WASTEWATER PLANT OPERATOR Recommendation and Plan Recommended discharge disposition is based on the functional assessment performed by PT/OT/Speech therapy (as applicable) and may not reflect the medical necessity determined by your provider or services covered by an individual patient's insurance plan or patient resource. WASTEWATER PLANT OPERATOR Diagnosis: (P) moderate, dysarthria, mild, cognitive-linguistic disorder (06/12/25929) WASTEWATER PLANT OPERATOR Diagnosis Comments: (P) Pt reports that his short-term memory is worse than his exterminator termite said, I can recall things that happened 25 years ago. Pt stated that he would prefer to work on his speech instead of memory and cognition. (06/12/25929) [facility] Criteria for Skilled Therapy Interventions Met: (P) yes (06/12/25929) Anticipated Discharge Disposition (WASTEWATER PLANT OPERATOR): (P) [facility] facility (06/12/25929) Therapy Frequency (WASTEWATER PLANT OPERATOR SLC): (P) 5 days per week (06/12/25929) Predicted Duration Therapy Intervention (Days): (P) 2 weeks (06/12/25929) WASTEWATER PLANT OPERATOR EVALUATION (Last 72 Hours) WASTEWATER PLANT OPERATOR SLC Evaluation Row Name 06/12/25929 Communication Assessment/Intervention [...] improving it. (P) -EM Cognitive Assessment Intervention- WASTEWATER PLANT OPERATOR Cognitive Function (Cognition) mild impairment (P) -EM [...] since arriving at the hospital. (P) -EM WASTEWATER PLANT OPERATOR Evaluation Clinical Impressions WASTEWATER PLANT OPERATOR Diagnosis moderate;dysarthria;mild;cognitive-linguistic disorder (P) -EM WASTEWATER PLANT OPERATOR Diagnosis Comments Pt reports that his short-term memory is worse than his group home said, I can recall things that happened 25 years ago. Pt stated that he would prefer to work on his speech instead of memory and cognition. (P) -EM Rehab Potential/Prognosis good (P) -EM SLC Criteria for Skilled Therapy Interventions Met yes (P) -EM Functional Impact difficulty in expressing complex messages (P) -EM Recommendations Therapy Frequency (WASTEWATER PLANT OPERATOR SLC) 5 days per week (P) -EM Predicted Duration Therapy Intervention (Days) 2 weeks (P) -EM Anticipated Discharge Disposition (WASTEWATER PLANT OPERATOR) [facility] facility (P) -EM User Alvarez (r) = Recorded By, (t) = Taken By, (c) = Cosigned By Initials Name Effective Dates EM Terra Valverde, Speech Therapy Student 04/27/25 - EDUCATION The patient has been educated in the following areas: Cognitive Impairment. WASTEWATER PLANT OPERATOR GOALS Row Name 06/12/25 0930 Patient will demonstrate functional communication skills for return to discharge environment [place] Independently (P) -EM Time frame 2 weeks (P) -EM Progress/Outcomes goal ongoing (P) -EM WASTEWATER PLANT OPERATOR Diagnostic Treatment Patient will participate in further assessment in the following areas higher- level cognitive-linguistic;motor speech;clarification of baseline cognitive communication status (P) -EM Time Frame (Diagnostic) 1 week (P) -EM Progress/Outcomes (Additional Goal 1, WASTEWATER PLANT OPERATOR) goal met (P) -EM Comment (Diagnostic) Pt reports mild memory deficits at baseline. Higher level cognitive evaluationcompleted. (P) -EM Articulation Goal 1 (WASTEWATER PLANT OPERATOR) Improve Articulation Goal 1 (WASTEWATER PLANT OPERATOR) of specific sounds in phrases;of specific sounds in connected speech;80%;with minimal cues (75-90%) (P) -EM Time Frame (Articulation Goal 1, WASTEWATER PLANT OPERATOR) 1 week (P) -EM Progress/Outcomes (Articulation Goal 1, WASTEWATER PLANT OPERATOR) new goal (P) -EM Memory Skills Goal 1 (WASTEWATER PLANT OPERATOR) Improve Memory Skills Through Goal 1 (WASTEWATER PLANT OPERATOR) recalling related word lists with an imposed delay;80%;with minimal cues (75-90%) (P) -EM Time Frame (Memory Skills Goal 1, WASTEWATER PLANT OPERATOR) 1 week (P) -EM Progress/Outcomes (Memory Skills Goal 1, WASTEWATER PLANT OPERATOR) new goal (P) -EM Organizational Skills Goal 1 (WASTEWATER PLANT OPERATOR) Improve Thought Organization Through Goal 1 (WASTEWATER PLANT OPERATOR) completing a divergent naming task;80%;with minimal cues (75-90%) (P) -EM Time Frame (Thought Organization Skills Goal 1, WASTEWATER PLANT OPERATOR) 1 week (P) -EM Progress/Outcomes (Thought Organization Skills Goal 1, WASTEWATER PLANT OPERATOR) new goal (P) -EM User Alvarez (r) = Recorded By, (t) = Taken By, (c) = Cosigned By Initials Name Provider Type EM Terra Valverde Speech Therapy Student WASTEWATER PLANT OPERATOR Student Time Calculation: Time Calculation- WASTEWATER PLANT OPERATOR Row Name 06/12/25 1213 Time Calculation- WASTEWATER PLANT OPERATOR WASTEWATER PLANT OPERATOR Start Time 929 (P) -EM WASTEWATER PLANT OPERATOR Received On 06/12/25 (P) -EM Untimed Charges 16106-VX Eval Speech and Production w/ Language Minutes 68 (P) -EM Total Minutes Untimed Charges Total Minutes 68 (P) -EM Total Minutes 68 (P) -EM User Alvarez (r) = Recorded By, (t) = Taken By, (c) = Cosigned By Initials Name Provider Type EM Terra Valverde Speech Therapy Student WASTEWATER PLANT OPERATOR Student Therapy Charges for Today Code Description Service Date Service Provider Modifiers Qty [id number] HC ST EVAL SPEECH AND PROD W LANG 5 06/12/2025 Terra Valverde Speech Therapy StudentGN, KX 1 Terra Valverde Speech Therapy Student 06/12/2025 Cosigned by Patricia Munoz MS CCC-WASTEWATER PLANT OPERATOR at 06/12/2025 1:03 PM EDT Associated attestation - Patricia Munoz MS CCC-SLP - 06/12/2025 1:03 PM EDT Patricia Munoz MS CCC-WASTEWATER PLANT OPERATOR * Case Management/Social Work - Tesha Coelho, RN - 06/11/2025 12:41 PM EDT Continued Stay Note [facility] Patient Name: Alexa Fuentes Today's Date: 06/11/2025 [...] 06/08/2025 1:56 PM EDT Continued Stay Note [place] Patient Name: Alexa Fuentes Today's Date: 06/08/2025 Admit Date: 06/06/2025 Plan: IDP Discharge Plan Row Name 06/08/25 1355 Plan Plan Comments Pt not at bedside this am during bedside rounding. Discussed in MDR pt to have ERCP today. Not medically ready for discharge. Pt has bed hold at [facility]. CM will cont to follow. Discharge Codes No documentation. Expected Discharge Date and Time Expected Discharge Date Expected Discharge Time Jun 11, 2025 Tesha Coelho RN * MBS/VFSS/FEES - Mariza Brunson, MS [facility]-WASTEWATER PLANT OPERATOR - 06/07/2025 5:12 PM EDT Images from the original note were not included. Acute Care - Speech Language Pathology Swallow Initial Evaluation [place] Fiberoptic Endoscopic Evaluation of Swallowing (FEES) Patient [...] Procedure Laterality Date COLONOSCOPY KNEE SURGERY Right WASTEWATER PLANT OPERATOR Recommendation and Plan Recommended discharge disposition is based on the functional assessment performed by PT/OT/Speech therapy (as applicable) and may not reflect the medical necessity determined by your provider or services covered by an individual patient's insurance plan or patient resource. WASTEWATER PLANT OPERATOR Swallowing Diagnosis: functional oral phase, functional pharyngeal phase (06/07/25 163) WASTEWATER PLANT OPERATOR Diet Recommendation: regular textures, thin liquids (06/07/25 163) Recommended Precautions and Strategies: upright posture during/after eating (06/07/251629) WASTEWATER PLANT OPERATOR Rec. for Method of Medication Administration: meds whole, with thin liquids, with puree, as tolerated (06/07/25 163) Monitor for Signs of Aspiration: no problems identified requiring continued intervention (06/07/25 163) Recommended Diagnostics: No further WASTEWATER PLANT OPERATOR services recommended (06/07/25 163) Swallow Criteria for Skilled Therapeutic Interventions Met: no problems identified which require skilled intervention (06/07/251629) Anticipated Discharge Disposition (WASTEWATER PLANT OPERATOR): [facility] facility (06/07/251629) Therapy Frequency (Swallow): evaluation only (06/07/251629) Oral Care Recommendations: Oral Care BID/PRN (06/07/25 163) Progress: improving SWALLOW EVALUATION (Last 72 Hours) WASTEWATER PLANT OPERATOR Adult Swallow Evaluation Row Name 06/07/25162906/07/25 1330 Rehab Evaluation Document Type evaluation -EC [...] Skills fed by staff/caregiver -EC fed by WASTEWATER PLANT OPERATOR;needed assist -SM (r) LS (t) SM (c) [...] functional pharyngeal phase of swallow -EC -- WASTEWATER PLANT OPERATOR Evaluation Clinical Impression WASTEWATER PLANT OPERATOR Swallowing Diagnosis functional oral phase;functional pharyngeal phase [...] Therapy Frequency (Swallow) evaluation only -EC -- WASTEWATER PLANT OPERATOR Diet Recommendation regular textures;thin liquids -EC -- -SM (r) LS (t) SM (c) Recommended Diagnostics No further WASTEWATER PLANT OPERATOR services recommended -EC FEES -SM (r) LS (t) SM (c) Recommended Precautions and Strategies upright posture during/after eating -EC general aspiration precautions -SM (r) LS (t) SM (c) Oral Care Recommendations Oral Care BID/PRN -EC Oral Care BID/PRN -SM (r) LS (t) SM (c) WASTEWATER PLANT OPERATOR Rec. for Method of Medication Administration meds whole;with thin liquids;with puree;as tolerated -EC -- Monitor for Signs of Aspiration no problems identified requiring continued intervention -EC yes;notify WASTEWATER PLANT OPERATOR if any concerns -SM (r) LS (t) SM (c) Anticipated Discharge Disposition (WASTEWATER PLANT OPERATOR) [facility] facility -EC [facility] facility -SM (r) LS (t) SM (c) User Alvarez (r) = Recorded By, (t) = Taken By, (c) = Cosigned By Initials Name Effective Dates Batsheva Osborne, MS CCC-WASTEWATER PLANT OPERATOR 10/02/24 - EC Mariza Brunson, MS CCC-WASTEWATER PLANT OPERATOR 07/06/24 - Roxanne Loyd, Speech Therapy Student 05/01/25 - EDUCATION The patient has been educated in the following areas: Dysphagia (Swallowing Impairment). WASTEWATER PLANT OPERATOR GOALS Row Name 06/07/25 1330 Patient will demonstrate functional communication skills for return to discharge environment [place] Independently -SM (r) LS (t) SM (c) Time frame 2 weeks -SM (r) LS (t) SM (c) Progress/Outcomes new goal -SM (r) LS (t) SM (c) WASTEWATER PLANT OPERATOR Diagnostic Treatment Patient will participate in further assessment in the following areas higher- level cognitive-linguistic;motor speech;clarification of baseline cognitive communication status -SM (r) LS (t) SM (c) Time Frame (Diagnostic) 1 week -SM (r) LS (t) SM (c) Progress/Outcomes (Additional Goal 1, WASTEWATER PLANT OPERATOR) new goal -SM (r) LS (t) SM (c) User Alvarez (r) = Recorded By, (t) = Taken By, (c) = Cosigned By Initials Name Provider Type RADHA SpearsBatsheva, MS [facility]-WASTEWATER PLANT OPERATOR Speech and Language Pathologist Roxanne Loyd, Speech Therapy Student WASTEWATER PLANT OPERATOR Student Time Calculation: Time Calculation- WASTEWATER PLANT OPERATOR Row Name 06/07/25 1711 06/07/25 1430 Time Calculation- WASTEWATER PLANT OPERATOR WASTEWATER PLANT OPERATOR Start Time 1630 -EC 1330 -SM (r) LS (t) SM (c) WASTEWATER PLANT OPERATOR Received On 06/07/25 -EC 06/07/25 -SM (r) LS (t) SM (c) Untimed Charges 51507-CN Eval Speech and Production w/ Language Minutes -- 35 -SM (r) LS (t) SM (c) 62222-PM Eval Oral Pharyng Swallow Minutes -- 30 -SM (r) LS (t) SM (c) 78132-MD Fiberoptic Endo Eval Swallow Minutes 38 -EC -- Total Minutes Untimed Charges Total Minutes 38 -EC 65 -SM (r) LS (t) Total Minutes 38 -EC 65 -SM (r) LS (t) User Alvarez (r) = Recorded By, (t) = Taken By, (c) = Cosigned By Initials Name Provider Type RADHA SpearsBatsheva, MS CCC-WASTEWATER PLANT OPERATOR Speech and Language Pathologist EC Mariza Brunson, CCC-WASTEWATER PLANT OPERATOR Speech and Language Pathologist LS Roxanne Travis, Speech Therapy Student WASTEWATER PLANT OPERATOR Student Therapy Charges for Today Code Description Service Date Service Provider Modifiers Qty [id number] HC ST FIBEROPTIC ENDO EVAL SWALL 3 06/07/2025 Mariza Brunson, CCC- WASTEWATER PLANT OPERATOR GN, KX 1 Mariza Brunson MS CCC-WASTEWATER PLANT OPERATOR 06/07/2025 * Therapy Evaluation - Roxanne Travis, Speech Therapy Student - 06/07/2025 2:33 PM EDT Images from the original note were not included. Acute Care - Speech Language Pathology Swallow Initial Evaluation [facility] Clinical Swallow Evaluation Cognitive-Communication Evaluation Patient [...] Procedure Laterality Date COLONOSCOPY KNEE SURGERY Right WASTEWATER PLANT OPERATOR Recommendation and Plan Recommended discharge disposition is based on the functional assessment performed by PT/OT/Speech therapy (as applicable) and may not reflect the medical necessity determined by your provider or services covered by an individual patient's insurance plan or patient resource. [employer]EWATER PLANT OPERATOR Swallowing Diagnosis: (P) functional oral phase, suspected pharyngeal dysphagia (06/07/25 1330) Recommended Precautions and Strategies: (P) general aspiration precautions (06/07/25 1330) Monitor for Signs of Aspiration: (P) yes, notify WASTEWATER PLANT OPERATOR if any concerns (06/07/251329) Recommended Diagnostics: (P) FEES (06/07/251329) Swallow Criteria for Skilled Therapeutic Interventions Met: (P) demonstrates skilled criteria (06/07/251329) Anticipated Discharge Disposition (WA[employer] OPERATOR): (P) [facility] facility (06/07/251329) Rehab Potential/Prognosis, Swallowing: (P) good, to achieve stated therapy goals (06/07/251329) Predicted Duration Therapy Intervention (Days): (P) 2 weeks (06/07/251329) Oral Care Recommendations: (P) Oral Care BID/PRN (06/07/251329) Progress: (P) no change SWALLOW EVALUATION (Last 72 Hours) [employer]EWATER [employer] OPERATOR Adult Swallow Evaluation Row Name 06/07/251329 General [...] cannula (P) -LS Eating/Swallowing Skills fed by WASTEWATER PLANT OPERATOR;needed assist (P) -LS Positioning During Eating upright [...] comments) (P) wet cough following trials. -LS [employer]EWATER PLANT OPERATOR Evaluation Clinical Impression [employer]EWATER [employer]ANT OPERATOR Swallowing Diagnosis functional oral phase;suspected pharyngeal dysphagia (P) -LS Functional Impact risk of aspiration/pneumonia (P) -LS Rehab Potential/Prognosis, Swallowing good, to achieve stated therapy goals (P) -LS Swallow Criteria for Skilled Therapeutic Interventions Met demonstrates skilled criteria (P) -LS Recommendations [employer] OPERATOR Diet Recommendation -- (P) -LS Recommended Diagnostics FEES (P) -LS Recommended Precautions and Strategies general aspiration precautions (P) -LS Oral Care Recommendations Oral Care BID/PRN (P) -LS Monitor for Signs of Aspiration yes;notify W[employer]EWATER PLANT OPERATOR if any concerns (P) -LS Anticipated Discharge Disposition ([employer] OPERATOR) [facility] facility (P) -LS User Alvarez (r) = Recorded By, (t) = Taken By, (c) = Cosigned By Initials Name Effective Dates Roxanne Loyd, Speech Therapy Student 05/01/25 - EDUCATION The patient has been educated in the following areas: Cognitive Impairment Communication Impairment Dysphagia (Swallowing Impairment) Oral Care/Hydration. [employer]ATER [employer] OPERATOR GOALS Row Name 06/07/25 1330 Patient will demonstrate functional communication skills for return to discharge environment [place] Independently (P) -LS Time frame 2 weeks (P) -LS Progress/Outcomes new goal (P) -LS [employer]ATER [employer] OPERATOR Diagnostic Treatment Patient will participate in further assessment in the following areas higher- level cognitive-linguistic;motor speech;clarification of baseline cognitive communication status (P) -LS Time Frame (Diagnostic) 1 week (P) -LS Progress/Outcomes (Additional Goal 1, W[employer]EWATER PLANT OPERATOR) new goal (P) -LS User Alvarez (r) = Recorded By, (t) = Taken By, (c) = Cosigned By Initials Name Provider Type Roxanne Loyd, Speech Therapy Student [employer]ATER [employer] OPERATOR Student Time Calculation: Time Calculation- W[employer]EWATER [employer]ANT OPERATOR Row Name 06/07/25 1430 Time Calculation- W[employer]EWATER [employer]ANT OPERATOR W[employer]ATER [employer]ANT OPERATOR Start Time 1330 (P) -LS [employer]ATER [employer]ANT OPERATOR Received On 06/07/25 (P) -LS Untimed Charges 58450-YX Eval Speech and Production w/ Language Minutes 35 (P) -LS 46800-AV Eval Oral Pharyng Swallow Minutes 30 (P) -LS Total Minutes Untimed Charges Total Minutes 65 (P) -LS Total Minutes 65 (P) -LS User Alvarez (r) = Recorded By, (t) = Taken By, (c) = Cosigned By Initials Name Provider Type Roxanne Loyd Speech Therapy Student W[employer] OPERATOR Student Therapy Charges for Today Code Description Service Date Service Provider Modifiers Qty [id number] HC ST EVAL SPEECH AND PROD W LANG 3 06/07/2025 Roxanne Travis Speech Therapy StudentGN, KX [id number] EVAL ORAL PHARYNG SWALLOW 2 06/07/2025 Roxanne Travis, Speech Therapy Student GN, KX 1 Roxanne Gardner Speech Therapy Student 06/07/2025 and Acute Care - Speech Language Pathology Initial Evaluation [facility] Patient Name: Alexa Fuentes : 1950 [...] Procedure Laterality Date COLONOSCOPY KNEE SURGERY Right [employer]ATER [employer]ANT OPERATOR Recommendation and Plan Recommended discharge disposition is based on the functional assessment performed by PT/OT/Speech therapy (as applicable) and may not reflect the medical necessity determined by your provider or services covered by an individual patient's insurance plan or patient resource. W[employer]EWATER [employer]ANT OPERATOR Diagnosis: (P) functional cognitive-linguistic skills (06/07/251329) W[employer]EWATER PLANT OPERATOR Diagnosis Comments: (P) Pt son reported this is baseline for pt. (06/07/251329) Monitor for Signs of Aspiration: (P) yes, notify W[employer]EWATER PLANT OPERATOR if any concerns (06/07/251329) Swallow Criteria for Skilled Therapeutic Interventions Met: (P) demonstrates skilled criteria (06/07/251329) SLC Criteria for Skilled Therapy Interventions Met: (P) yes (06/07/251329) Anticipated Discharge Disposition (WA[employer] OPERATOR): (P) [facility] facility (06/07/251329) Therapy Frequency (WASTEWATER PLANT OPERATOR SLC): (P) 5 days per week (06/07/251329) Predicted Duration Therapy Intervention (Days): (P) 2 weeks (06/07/251329) Oral Care Recommendations: (P) Oral Care BID/PRN (06/07/251329) Progress: (P) no change (06/07/25 143) WASTEWATER PLANT OPERATOR EVALUATION (Last 72 Hours) WASTEWATER PLANT OPERATOR SLC Evaluation Row Name 06/07/251329 Communication Assessment/Intervention [...] (Voice) WFL (P) -LS Cognitive Assessment Intervention- WASTEWATER PLANT OPERATOR Cognitive Function (Cognition) WFL (P) -LS Orientation Status (Cognition) person;place;time;awareness of basic personal information;WFL (P) -LS Attention (Cognitive) WFL (P) -LS [employer]EWATER PLANT OPERATOR Evaluation Clinical Impressions W[employer]EWATER PLANT OPERATOR Diagnosis functional cognitive-linguistic skills (P) -LS W[employer]EWATER PLANT OPERATOR Diagnosis Comments Pt son reported this is baseline for pt. (P) -LS Rehab Potential/Prognosis good (P) -LS SLC Criteria for Skilled Therapy Interventions Met yes (P) -LS Recommendations Therapy Frequency (WASTEWATER PLANT OPERATOR SLC) 5 days per week (P) -LS Predicted Duration Therapy Intervention (Days) 2 weeks (P) -LS User Alvarez (r) = Recorded By, (t) = Taken By, (c) = Cosigned By Initials Name Effective Dates LS Roxanne Travis, Speech Therapy Student 05/01/25 - EDUCATION The patient has been educated in the following areas: Cognitive Impairment Communication Impairment Dysphagia (Swallowing Impairment) Oral Care/Hydration. W[employer]ATER [employer] OPERATOR GOALS Row Name 06/07/25 1330 Patient will demonstrate functional communication skills for return to discharge environment [place] Independently (P) -LS Time frame 2 weeks (P) -LS Progress/Outcomes new goal (P) -LS W[employer]ATER [employer] OPERATOR Diagnostic Treatment Patient will participate in further assessment in the following areas higher- level cognitive-linguistic;motor speech;clarification of baseline cognitive communication status (P) -LS Time Frame (Diagnostic) 1 week (P) -LS Progress/Outcomes (Additional Goal 1, W[employer]EWATER [employer]ANT OPERATOR) new goal (P) -LS User Alvarez (r) = Recorded By, (t) = Taken By, (c) = Cosigned By Initials Name Provider Type LS Roxanne Travis, Speech Therapy Student [employer]EW[employer] OPERATOR Student Time Calculation: Time Calculation- WASTEWATER PLANT OPERATOR Row Name 06/07/25 1430 Time Calculation- W[employer]EWATER PLANT OPERATOR W[employer]ATER [employer]ANT OPERATOR Start Time 1330 (P) -LS W[employer]EWATER PLANT OPERATOR Received On 06/07/25 (P) -LS Untimed Charges 00298-LT Eval Speech and Production w/ Language Minutes 35 (P) -LS 80301-BR Eval Oral Pharyng Swallow Minutes 30 (P) -LS Total Minutes Untimed Charges Total Minutes 65 (P) -LS Total Minutes 65 (P) -LS User Alvarez (r) = Recorded By, (t) = Taken By, (c) = Cosigned By Initials Name Provider Type LS Roxanne Travis, Speech Therapy Student W[employer]EWATER [employer] OPERATOR Student Therapy Charges for Today Code Description Service Date Service Provider Modifiers Qty [id number] HC ST EVAL SPEECH AND PROD W LANG 3 06/07/2025 Roxanne Travis, Speech Therapy StudentGN, KX [phone] EVAL ORAL PHARYNG SWALLOW 2 06/07/2025 Roxanne Travis Speech Therapy Student GN, KX 1 Roxanne N Stearms, Speech Therapy Student 06/07/2025 Cosigned by Batsheva Spears MS CCC-WASTEWATER PLANT OPERATOR at 06/07/2025 3:27 PM EDT Associated attestation - Batsheva Spears MS CCC-WASTEWATER PLANT OPERATOR - 06/07/2025 3:27 PM EDT Batsheva Spears MS CCC-WASTEWATER PLANT OPERATOR * Case Management/Social Work - Tesha Coelho RN - 06/07/2025 11:14 AM EDT Images from the original note were not included. Discharge Planning Assessment [facility] Patient Name: Alexa Fuentes Today's Date: 06/07/2025 Admit Date: 06/06/2025 Plan: IDP Discharge Needs Assessment Row Name 06/07/25 1105 Living Environment People in Home facility resident Name(s) of People in Home [facility] Current Living Arrangements residential facility Potentially Unsafe Housing Conditions none In the past 12 months has the electric, gas, oil, or water [employer] threatened to shut off services in your [...] bedside duringbedside rounding. Pt resides L[facility] at [facility] for the last approx 1 yr. Spoke with Tenisha in admissions and pt is able to return and has bed hold. Pt requires lift into and is dependent with ADL's. Is transported via [facility] to [facility] for HD on MWF and meat pickler time is 0815. Meds and PCP are pro vided by facility. Pharmacy updated in FAD ? IO. Pt will return to facility when medically appropriate and will probably require EMS transport. CM will cont to follow for discharge planning. Final Discharge Disposition Code 04 - intermediate care facility Continued Care and Services - Admitted Since 06/06/2025 Destination Coordination complete. Service Provider Request Status Services Address Phone Fax Patient Preferred [facility] Selected Intermediate Care [place] [phone] -- Demographic Summary Row Name 06/07/25 1103 General Information Admission Type inpatient Arrived From [facility] Referral Source admission list Reason for Consult decision-making Preferred Language Malagasy Functional Status Row Name 06/07/25 1104 Functional [...] Info) Description 12:30 PM EST Pre-Admission Testing [facility] PREADMISSION T [address] [place] [address] 5 3:20 PM EST Hospital Encounter [facility] [address] [place] [id number] Arnel Bell MD [address] [phone] 5 3:20 PM EST - 5 4:02 PM EST Surgery [facility] [address] [place] [id number] Arnel Bell MD [address] [id number] ENDOSCOPIC RETROGRADE CHOLANGIOPANCREATOGRAPHY [19414 (CPT )] Scheduled Orders Name Type Priority [...] Comments RESPIRATORY PANEL PCR W/ COVID-19 (SARS-COV-2), SUPERVISOR CONTACT LENS SWAB IN UTM/VTP, 2 HR TAT Routine [...] EXAM Routine 06/09/2025 12:00 PM EDT Cholecystitis ND LAPAROSCOPY SURG CHOLECYSTECTOMY 06/09/2025 10:25 AM EDT Choledocholithiasi s SCANNED - TELEMETRY 06/09/2025 7 :36 AM EDT MRSA DNA PROBE Routine 06/08/2025 7:05 PM EDT HEPATITIS PANEL, ACUTE Routine 2:52 PM EDT FL ERCP PANCREATIC AND BILIARY DUCTS Routine 06/08/2025 12:51 PM EDT ERCP 06/08/2025 10:27 AM EDT ECG 12-LEAD Routine 06/08/2025 9:17 AM EDT CBC (NO DIFF) Routine 06/08/2025 8:48 AM EDT COMPREHENSIVE METABOLIC PANEL Routine 06/08/2025 8:48 AM EDT WOUND OSTOMY EVAL AND TREAT Routine 06/07/2025 6:11 PM EDT WASTEWATER PLANT OPERATOR FEES FIBEROPTIC ENDO EVAL SWALLOW Routine [...] * Respiratory Panel PCR w/COVID-19(SARS-CoV-2) ZHANE/SALAZAR/MELY/PAD/COR/GELY In-House, SUPERVISOR CONTACT LENS Swab in UTM/VTM, 2 HR TAT - Swab, Nasopharynx (06/14/2025 7:13 AM EDT) [facility] ADENOVIRUS, PCR Not Detected Not Detected BIOFIRE TORCH 06/14/2025 8:15 AM EDT [facility] Coronavirus 229E Not Detected Not Detected BIOFIRE TORCH 06/14/2025 8:15 AM EDT [facility] Coronavirus HKU1 Not Detected Not Detected BIOFIRE TORCH 06/14/2025 8:15 AM EDT [facility] Coronavirus NL63 Not Detected Not Detected BIOFIRE TORCH 06/14/2025 8:15 AM EDT [facility] Coronavirus OC43 Not Detected Not Detected BIOFIRE TOR 06/14/2025 8:15 AM EDT [facility] COVID19 Not Detected Not Detected - Ref. Range BIOFIRE TORCH 06/14/2025 8:15 AM EDT [facility] Human Metapneumovirus Not Detected Not Detected BIOFIRE TOR 06/14/2025 8:15 AM EDT [facility] Human Rhinovirus/Enterov irus Not Detected Not Detected BIOFIRE TOR 06/14/2025 8:15 AM EDT [facility] Influenza A PCR Not Detected Not Detected BIOFIRE TOR 06/14/2025 8:15 AM EDT [facility] Influenza B PCR Not Detected Not Detected BIOFIRE TOR 06/14/2025 8:15 AM EDT [facility] Parainfluenza Virus 1 Not Detected Not Detected BIOFIRE TORCH 06/14/2025 8:15 AM EDT [facility] Parainfluenza Virus 2 Not Detected Not Detected BIOFIRE TORCH 06/14/2025 8:15 AM EDT [facility] Parainfluenza Virus 3 Not Detected Not Detected BIOFIRE TORCH 06/14/2025 8:15 AM EDT [facility] Parainfluenza Virus 4 Not Detected Not Detected BIOFIRE TORCH 06/14/2025 8:15 AM EDT [facility] RSV, PCR Not Detected Not Detected BIOFIRE TORCH 06/14/2025 8:15 AM EDT [facility] Bordetella pertussis pcr Not Detected Not Detected BIOFIRE TOR 06/14/2025 8:15 AM EDT [facility] Bordetella parapertussis PCR Not Detected Not Detected BIOFIRE TOR 06/14/2025 8:15 AM EDT [facility] Chlamydophila pneumoniae PCR Not Detected Not Detected BIOFIRE TOR 06/14/2025 8:15 AM EDT [facility] Mycoplasma pneumo by PCR Not Detected Not Detected BIOFIRE TOR 06/14/2025 8:15 AM EDT [facility] Swab Nasopharyngeal structure / Unknown Collection / Unknown 06/14/2025 7:13 AM EDT 06/14/2025 7:13 AM EDT [facility] - 06/14/2025 8:15 AM EDT In [...] MD MICROBIOLOGY - GENERAL ORDERABLES Final Result [facility]
[address] [place] [address], * POC Glucose Once (06/11/2025 8:27 PM EDT) [facility] Glucose 84 70 - 130 mg/dL 06/11/2025 8:29 PM EDT [facility] Comment:Serial Number: [id number] Blood 06/11/2025 8:27 PM EDT 06/11/2025 8:29 PM EDT Ivonne Ralph MD POINT OF CARE TEST ORDERABLES Final Result [facility]
[address] [place] [address], * JARED W/ COMPLETE DOPPLER, COLOR AND 3D (06/11/2025 1:59 PM EDT) CV ECHO SHUNT ASSESSMENT PERFORMED (HIDDEN SCRIPTING) [...] - 8.5 g/dL 06/11/2025 9:27 AM EDT [facility] Albumin 3.1(L) 3.5 - 5.2 g/dL 06/11/2025 9:27 AM EDT [facility] ALT (SGPT) 455(H) 1 - 41 U/L 06/11/2025 9:27 AM EDT [facility] AST (SGOT) 168(H) 1 - 40 U/L 06/11/2025 9:27 AM EDT [facility] Alkaline Phosphatase 112 39 - 117 U/L 06/11/2025 9:27 AM EDT [facility] Total Bilirubin 0.4 0.0 - 1.2 mg/dL 06/11/2025 9:27 AM EDT [facility] Bilirubin, Direct 0.2 0.0 - 0.3 mg/dL 06/11/2025 9:27 AM EDT [facility] Bilirubin, Indirect 0.2 mg/dL 06/11/2025 9:27 AM EDT [facility] Blood Line / Unknown 06/11/2025 8: 10 AM EDT 06/11/2025 8:10 AM EDT us Ivonne Ralph MD LAB BLOOD ORDE RABLES Final Result [facility]
[address] [place] [address], * Magnesium (06/11/2025 8:10 AM EDT) Magnesium 2.2 1.6 - 2.4 mg/dL 06/11/2025 8:45 AM EDT [facility] Blood Line / Unknown 06/11/2025 8: 10 AM EDT 06/11/2025 8:10 AM EDT Ivonne Ralph MD LAB BLOOD ORDE RABLES Final Result [facility]
[address] [place] [address], * (ABNORMAL) CBC (No Diff) (06/11/2025 8:10 AM EDT) WBC 11.08(H) 3.40 - 10.80 10*3/mm3 06/11/2025 8:19 AM EDT [facility] RBC 2.75(L) 4.14 - 5.80 10*6/mm3 06/11/2025 8:19 AM EDT [facility] Hemoglobin 8.5(L) 13.0 - 17.7 g/dL 06/11/2025 8:19 AM EDT [facility] Hematocrit 27.2(L) 37.5 - 51.0 % 06/11/2025 8:19 AM EDT [facility] MCV 98.9(H) 79.0 - 97.0 fL 06/11/2025 8:19 AM EDT [facility] MCH 30.9 26.6 - 33.0 pg 06/11/2025 8:19 AM EDT [facility] MCHC 31.3(L) 31.5 - 35.7 g/dL 06/11/2025 8:19 AM EDT [facility] RDW 15.5(H) 12.3 - 15.4 % 06/11/2025 8:19 AM EDT [facility] RDW-SD 55.2(H) 37.0 - 54.0 fl 06/11/2025 8:19 AM EDT [facility] MPV 10.1 6.0 - 12.0 fL 06/11/2025 8:19 AM EDT [facility] Platelets 206 140 - 450 10*3/mm3 06/11/2025 8:19 AM EDT [facility] Blood Line / Unknown 06/11/2025 8: 10 AM EDT 06/11/2025 8:10 AM EDT Ivonne Ralph MD LAB BLOOD ANNE-MARIE KONG Final Result [facility]
[address] [place] [address], * (ABNORMAL) Basic Metabolic Panel (06/11/2025 8:10 AM EDT) Glucose 98 65 - 99 mg/dL 06/11/2025 8:45 AM EDT [facility] BUN 66.9(H) 8.0 - 23.0 mg/dL 06/11/2025 8:45 AM EDT [facility] Creatinine 7.96(H) 0.76 - 1.27 mg/dL 06/11/2025 8:45 AM EDT [facility] Sodium 135(L) 136 - 145 mmol/L 06/11/2025 8:45 AM EDT [facility] Potassium 5.5(H) 3.5 - 5.2 mmol/L 06/11/2025 8:45 AM EDT [facility] Chloride 95(L) 98 - 107 mmol/L 06/11/2025 8:45 AM EDT [facility] CO2 22.9 22.0 - 29.0 mmol/L 06/11/2025 8:45 AM EDT [facility] Calcium 8.2(L) 8.6 - 10.5 mg/dL 06/11/2025 8:45 AM EDT [facility] BUN/Creatinine Ratio 8.4 7.0 - 25.0 06/11/2025 8:45 AM EDT [facility] Anion Gap 17.1(H) 5.0 - 15.0 mmol/L 06/11/2025 8:45 AM EDT [facility] eGFR 6.5(L) >60.0 mL/min/1.7 3 06/11/2025 8:45 AM EDT [facility] Blood Line / Unknown 06/11/2025 8: 10 AM EDT 06/11/2025 8:10 AM EDT Narrative [facility] - 06/11/2025 8:45 AM EDT GFR [...] us Ivonne Ralph MD LAB BLOOD ORDGerman ALMEIDACAMI Final Result [facility]
[address] [place] [address], * CT Soft Tissue Neck Without Contrast [...] MD 06/11/2025 7:44 AM EDT Workstation ID: [id number] Narrative 06/11/2025 7:[address] SOFT [...] MD 06/11/2025 7:44 AM EDT Workstation ID: [id number] Ivonne Ralph MD IMG CT ORDERAB LES Final Result * (ABNORMAL) Phosphorus (06/10/2025 3:22 PM EDT) Pathologist [facility] Phosphorus 8.9(H) 2.5 - 4.5 mg/dL 06/10/2025 3:57 PM EDT [facility] Blood Venipuncture / Unknown 06/10/2025 3:22 PM EDT 06/10/2025 3:28 PM EDT Rehan Lincoln MD LAB BLOOD ORDERABLES Final R esult [facility]
[address] [place] [address], * (ABNORMAL) Comprehensive Metabolic Panel (06/10/2025 3:22 PM EDT) Glucose 120(H) 65 - 99 mg/dL 06/10/2025 3:57 PM EDT [facility] BUN 60.9(H) 8.0 - 23.0 mg/dL 06/10/2025 3:57 PM EDT [facility] Creatinine 7.36(H) 0.76 - 1.27 mg/dL 06/10/2025 3:57 PM T [facility] Sodium 134(L) 136 - 145 mmol/L 06/10/2025 3:57 PM [facility] Potassium 5.3(H) 3.5 - 5.2 mmol/L 06/10/2025 3:57 PM [facility] Chloride 94(L) 98 - 107 mmol/L 06/10/2025 3:57 PM [facility] CO2 21.2(L) 22.0 - 29.0 mmol/L 06/10/2025 3:57 PM [facility] Calcium 8.7 8.6 - 10.5 mg/dL 06/10/2025 3:57 PM [facility] Total Protein 5.8(L) 6.0 - 8.5 g/dL 06/10/2025 3:57 PM [facility] Albumin 3.2(L) 3.5 - 5.2 g/dL 06/10/2025 3:57 PM [facility] ALT (SGPT) 558(H) 1 - 41 U/L 06/10/2025 3:57 PM [facility] AST (SGOT) 226(H) 1 - 40 U/L 06/10/2025 3:57 PM [facility] Alkaline Phosphatase 118(H) 39 - 117 U/L 06/10/2025 3:57 PM [facility] Total Bilirubin 0.4 0.0 - 1.2 mg/dL 06/10/2025 3:57 PM [facility] Globulin 2.6 gm/dL 06/10/2025 3:57 PM [facility] Comment:Calculated Result A/G Ratio 1.2 g/dL 06/10/2025 3:57 PM [facility] BUN/Creatinine Ratio 8.3 7.0 - 25.0 06/10/2025 3:57 PM [facility] Anion Gap 18.8(H) 5.0 - 15.0 mmol/L 06/10/2025 3:57 PM EDT [facility] eGFR 7.1(L) >60.0 mL/min/1.7 3 06/10/2025 3:57 PM EDT [facility] Blood Venipuncture / Unknown 06/10/2025 3:22 PM EDT 06/10/2025 3:28 PM EDT Narrative [facility] - 06/10/2025 3:57 PM [...] Guerrero MD LAB BLOOD ORDERABLES Final Result [facility]
[address] [place] [address], * (ABNORMAL) CBC (No Diff) (06/10/2025 3:22 PM EDT) WBC 11.79(H) 3.40 - 10.80 10*3/mm3 06/10/2025 3:30 PM EDT [facility] RBC 2.83(L) 4.14 - 5.80 10*6/mm3 06/10/2025 3:30 PM EDT [facility] Hemoglobin 8.9(L) 13.0 - 17.7 g/dL 06/10/2025 3:30 PM EDT [facility] Hematocrit 28.5(L) 37.5 - 51.0 % 06/10/2025 3:30 PM EDT [facility] MCV 100.7(H) 79.0 - 97.0 fL 06/10/2025 3:30 PM EDT [facility] MCH 31.4 26.6 - 33.0 pg 06/10/2025 3:30 PM EDT [facility] MCHC 31.2(L) 31.5 - 35.7 g/dL 06/10/2025 3:30 PM EDT [facility] RDW 15.4 12.3 - 15.4 % 06/10/2025 3:30 PM EDT [facility] RDW-SD 56.4(H) 37.0 - 54.0 fl 06/10/2025 3:30 PM EDT [facility] MPV 10.7 6.0 - 12.0 fL 06/10/2025 3:30 PM EDT [facility] Platelets 179 140 - 450 10*3/mm3 06/10/2025 3:30 PM EDT [facility] Blood Venipuncture / Unknown 06/10/2025 3:22 PM EDT 06/10/2025 3:28 PM EDT us Charles Guerrero MD LAB BLOOD ORDERABLES Final Result Performing Organization Address City/[facility]/ZIP Co de Phone Number [facility]
[address] [place] [address], [place] [phone] * Magnesium (06/09/2025 2:26 PM EDT) Magnesium 2.0 1.6 - 2.4 mg/dL 06/09/2025 3:28 PM EDT [facility] Blood Venipuncture / Unknown 06/09/2025 2:26 PM EDT 06/09/2025 2:59 PM EDT us Charles Guerrero MD LAB BLOOD ORDERABLES Final Result Performing Organization Address City/[facility]/ZIP Co de Phone Number [facility]
[address] [place] [address], [place] [phone] * Tissue Pathology Exam (06/09/2025 12:00 PM EDT) Case Report Surgical Pathology Report Case: [id number] Authorizing Provider: Charles Guerrero MD Collected: 06/09/2025 12:00 PM Ordering Location: [facility] Received: 06/11/2025 06:27 AM OR Pathologist: Bryanna Morales MD Specimen: Gallbladder 06/12/2025 10:36 AM EDT [facility] Clinical Information Cholecystitis Choledocholithiasi s 06/12/2025 10:36 AM EDT [facility] Final Diagnosis Gallbladder, cholecystectomy: Acute and chronic cholecystitis and cholelithiasis 1 benign lymph node 06/12/2025 10:36 AM EDT [facility] at 1036 EDT Gross [...] lesions or masses are grossly identified, and inbound call center representative sections from the fundus, body, and neck to include the cystic duct margin (en face) and possible lymph node (intact) are submitted in cassette 1A. AKG 06/12/2025 10:36 AM EDT [facility] Microscopic Description The slides are reviewed and demonstrate histopathologic features supporting the above rendered diagnosis. 06/12/2025 10:36 AM EDT [facility] Tissue Gallbladder structure / Unknown 06/09/2025 12:00 PM EDT 06/11/2025 6:27 AM EDT us Charles Guerrero MD PATHOLOGY/CYTOLOGY ORDERAB LES Final Result Performing Organization Address [facility]/ZIP Co de Phone Number [facility]
[address] [place] [address], * Telemetry Scan (06/09/2025 7:36 AM EDT) [facility] ECG ORDERABLES Final Result * (ABNORMAL) MRSA Screen, PCR (Inpatient) - Swab, Nares (06/08/2025 7:05 PM EDT) MRSA PCR Positive(A ) Negative CEPHEID GENEXPERT 06/08/2025 9:52 PM EDT [facility] Swab Structure of anterior naris / Unknown Collection / Unknown 06/08/2025 7:05 PM EDT 06/08/2025 7:25 PM EDT Narrative [facility] - 06/08/2025 9:52 PM EDT The negative predictive value of this diagnostic test is high and should only be used to consider de-escalating anti-MRSA therapy. A positive result may indicate colonization with MRSA and must be correlated clinically. Ivonne Ralph MD MICROBIOLOGY - GENERAL ORDERABLES Final Result Performing Organization Address [facility]/ZIP Co de Phone Number [facility]
[address] [place] [address], * Hepatitis Panel, Acute (06/08/2025 2:52 PM EDT) Hepatitis B Surface Ag Non-Reacti ve Non-Reacti ve 06/08/2025 3:43 PM EDT [facility] Hep A IgM Non-Reacti ve Non-Reacti ve 06/08/2025 3:43 PM EDT [facility] Hep B C IgM Non-Reacti ve Non-Reacti ve 06/08/2025 3:43 PM EDT [facility] Hepatitis C Ab Non-Reacti ve Non-Reacti ve 06/08/2025 3:43 PM EDT [facility] Blood Line / Unknown 06/08/2025 2: 52 PM EDT 06/08/2025 3:00 PM EDT Narrative [facility] - 06/08/2025 3:43 PM EDT Results may be falsely decreased if patient taking Biotin. Ivonne Ralph MD LAB BLOOD ORDE DILAN Final Result [facility]
[address] [place] [address], * [place] ERCP pancreatic and biliary ducts (06/08/2025 12:51 PM EDT) Anatomical Region Laterality Modality Body Radio Fluoroscop y 06/08/2025 3:31 PM EDT Impressions 06/08/2025 3:48 PM EDT Impression: Fluoroscopy demonstrates filling of the bile ducts. Please see procedure report for full findings. Electronically Signed: Migue Mcfarlane MD 06/08/2025 3:48 PM EDT Workstation ID: [id number] Narrative 06/08/2025 3:48 PM EDT [place] ERCP PANCREATIC AND BILIARY DUCTS Date of Exam: 06/08/2025 10:49 AM EDT Indication: ENDOSCOPIC RETROGRADE CHOLANGIOPANCREATOGRAPHY. Comparison: None available. Technique: A series of radiographic digital spot films were obtained in conjunction with an endoscopic catheterization of the biliary and pancreatic ductal system, performed by the health records technology teacher. Fluoroscopic Time: 5 minutes 57 seconds Number [...] biliary andpancreatic ductal system, performed by the health records technology teacher. Fluoroscopic Time: 5 minutes 57 seconds Number of Images: 10 Findings: Fluoroscopy demonstrates filling of the bile ducts. IMPRESSION: Impression: Fluoroscopy demonstrates filling of the bile ducts. Please see procedurereport for full findings. Electronically Signed: Migue Mcfarlane MD 06/08/2025 3:48 PM EDT Workstation ID: [id number] Kishore Foote MD IMG FLUOROSCOPY ORDERABLES Final [...] - 10.80 10*3/mm3 06/08/2025 10:22 AM EDT [facility] RBC 2.80(L) 4.14 - 5.80 10*6/mm3 06/08/2025 10:22 AM EDT [facility] Hemoglobin 8.6(L) 13.0 - 17.7 g/dL 06/08/2025 10:22 AM EDT [facility] Hematocrit 27.7(L) 37.5 - 51.0 % 06/08/2025 10:22 AM EDT [facility] MCV 98.9(H) 79.0 - 97.0 fL 06/08/2025 10:22 AM EDT [facility] MCH 30.7 26.6 - 33.0 pg 06/08/2025 10:22 AM EDT [facility] MCHC 31.0(L) 31.5 - 35.7 g/dL 06/08/2025 10:22 AM EDT [facility] RDW 15.5(H) 12.3 - 15.4 % 06/08/2025 10:22 AM EDT [facility] RDW-SD 55.7(H) 37.0 - 54.0 fl 06/08/2025 10:22 AM EDT [facility] MPV 10.6 6.0 - 12.0 fL 06/08/2025 10:22 AM EDT [facility] Platelets 195 140 - 450 10*3/mm3 06/08/2025 10:22 AM EDT [facility] Blood Venipuncture / Unknown 06/08/2025 8:48 AM EDT 06/08/2025 10:07 AM EDT Krystal Orozco MD LAB BLOOD ORDERABLES Final Re sult [facility]
[address] [place] [address], * (ABNORMAL) Comprehensive Metabolic Panel (06/08/2025 8:48 AM EDT) Glucose 66 65 - 99 mg/dL 06/08/2025 11:42 AM EDT [facility] BUN 80.3(H) 8.0 - 23.0 mg/dL 06/08/2025 11:42 AM EDT [facility] Creatinine 8.13(H) 0.76 - 1.27 mg/dL 06/08/2025 11:42 AM EDT [facility] Sodium 137 136 - 145 mmol/L 06/08/2025 11:42 AM EDT [facility] Potassium 5.1 3.5 - 5.2 mmol/L 06/08/2025 11:42 AM EDT [facility] Chloride 93(L) 98 - 107 mmol/L 06/08/2025 11:42 AM EDT [facility] CO2 24.1 22.0 - 29.0 mmol/L 06/08/2025 11:42 AM EDT [facility] Calcium 8.8 8.6 - 10.5 mg/dL 06/08/2025 11:42 AM EDT [facility] Total Protein 5.9(L) 6.0 - 8.5 g/dL 06/08/2025 11:42 AM EDT [facility] Albumin 2.8(L) 3.5 - 5.2 g/dL 06/08/2025 11:42 AM [facility] ALT (SGPT) 982(H) 1 - 41 U/L 06/08/2025 11:42 AM [facility] AST (SGOT) 730(H) 1 - 40 U/L 06/08/2025 11:42 AM [facility] Alkaline Phosphatase 111 39 - 117 U/L 06/08/2025 11:42 AM [facility] Total Bilirubin 0.6 0.0 - 1.2 mg/dL 06/08/2025 11:42 AM [facility] Globulin 3.1 gm/dL 06/08/2025 11:42 AM [facility] Comment:Calculated Result A/G Ratio 0.9 g/dL 06/08/2025 11:42 AM [facility] BUN/Creatinine Ratio 9.9 7.0 - 25.0 06/08/2025 11:42 AM [facility] Anion Gap 19.9(H) 5.0 - 15.0 mmol/L 06/08/2025 11:42 AM [facility] eGFR 6.3(L) >60.0 mL/min/1.7 3 06/08/2025 11:42 AM [facility] Blood Venipuncture / Unknown 06/08/2025 8:48 AM EDT 06/08/2025 9:42 AM T [facility] - 06/08/2025 11:42 AM EDT [...] fulfill the criteria for CKD. eGFR calculation 2021 CKD-EPI creatinine equation, which does not include race as a factor Krystal Orozco MD LAB BLOOD ORDERABLES Final Re sult [facility]
[address] [place] [address], * [employer]ES - Fiberoptic Endo Eval Swallow (06/07/2025 4:59 PM EDT) Narrative SYSTEMGENERATED, DOCUMENTATION - 06/07/2025 4:59 PM EDT This procedure was auto-finalized with no dictation required. Krystal Orozco MD [employer] ORDERABLES Final Result * DUPLEX CAROTID BILATERAL [...] AND COLOR FLOW (06/07/2025 3:44 PM EDT) EF(MOD-bp) 53.5 % LVIDd 5.7 cm LVIDs [...] 0.09 sec Ao root diam 4.4 cm CV ECHO SHUNT ASSESSMENT PERFORMED (HIDDEN SCRIPTING) [...] MD 06/07/2025 10:26 AM EDT Workstation ID: [id number] Narrative 06/07/2025 10:26 AM EDT MRI ABDOMEN [...] hydronephrosis. No dilated bowel loops within the [id number]. No free fluid in the abdomen. No [...] No hydronephrosis. No dilated bowel loopswithin the dxkwq-dp-[id number]. No free fluid in the abdomen. No pathologicallyenlarged lymph nodes. No abdominal aortic aneurysm. Atherosclerosis. Nobody wall abnormality. Multilevel spondylosis. No acute or suspicious osseous abnormalities evident on thisnoncontrast exam. IMPRESSION: Impression: Choledocholithiasis with a 7 mm stone in the lower common bile duct. Intraand extrahepatic biliary ductal dilatation with common bile duct [id number] mm. Correlate with serum bilirubin and consider ERCP. Cholelithiasis without evidence of acute cholecystitis. Left lower lobe consolidation with trace left pleural effusion, suggestiveof pneumonia. Chronic/ancillary findings as above. Electronically Signed: Preet Crowley MD 06/07/2025 10:26 AM EDT Workstation ID: [id number] [facility] TulsaRolanjoanie Muro MD IM MRI ORDERABLES Final Res [...] MD 06/07/2025 10:22 AM EDT Workstation ID: [id number] Narrative 06/07/2025 10:22 AM EDT MRI BRAIN [...] MD 06/07/2025 10:22 AM EDT Workstation ID: [id number] Edita Moctezuma Thomas DIRECTOR OF MEDICAL EDUCATION IMG MRI ORDERABLES Final Result * KIMANI AURIS PCR - Swab, Axilla Right, Axilla Left and Groin (06/07/2025 8:45 AM EDT) KIMANI AURIS PCR (MITUL) Not Detected 06/08/2025 5:14 PM EDT [facility] Swab Entire skin of axilla / Unknown Collection / Unknown 06/07/2025 8:45 AM EDT 06/07/2025 8:52 AM EDT Krystal Orozco MD MICROBIOLOGY - GENERAL ORDERA BLES Final Result [facility] [address] [place] [address], [place] [phone] * Lactic Acid, Plasma (06/07/2025 6:03 AM EDT) Lactate 0.9 0.5 - 2.0 mmol/L 06/07/2025 6:43 AM EDT [facility] Comment:Falsely depressed re sults may occur on samples drawn from patients receiving N-Acetylcysteine (NAC) or Metamizole. Blood Venipuncture / Unknown 06/07/2025 6:03 AM EDT 06/07/2025 6:07 AM EDT Rolan Muro MD LAB BLOOD ORDERABLES Final R esult [facility]
[address] [place] [address], [place] [phone] * Blood Culture - Blood, Wrist, Left (06/07/2025 6:03 AM EDT) Blood Culture No growth at 5 days 06/12/2025 7:30 AM EDT [facility] Blood Structure of left wrist region / Unknown Venipuncture / Unknown 06/07/2025 6:03 AM EDT 06/07/2025 7:28 AM EDT [facility] - 06/12/2025 7:30 AM EDT Aerobic Bottle Only Less than seven (7) mL's of blood was collected. Insufficient quantity may yield false negative results. us Rolan Muro MD MICROBIOLOGY - GENERAL ORDER NOEL Final Result Performing Organization Address [facility]/RUST de Phone Number [facility]
[address] [place] [address], * Blood Culture - Blood, Wrist, Left (06/07/2025 6:01 AM EDT) Blood Culture No growth at 5 days 06/12/2025 7:30 AM EDT [facility] Blood Structure of left wrist region / Unknown Venipuncture / Unknown 06/07/2025 6:01 AM EDT 06/07/2025 7:26 AM EDT [facility] - 06/12/2025 7:30 AM EDT Aerobic Bottle Only Less than seven (7) mL's of blood was collected. Insufficient quantity may yield false negative results. Rolan Muro MD MICROBIOLOGY - GENERAL ORDER NOEL Final Result Performing Organization Address [facility] Co de Phone Number [facility]
[address] [place] [address], * POC Glucose Once (06/07/2025 5:29 AM EDT) Glucose 76 70 - 130 mg/dL 06/07/2025 5:31 AM EDT [facility] Comment:Serial Number: [id number]: [id number] Blood 06/07/2025 5:29 AM EDT 06/07/2025 5:31 AM EDT Rolan Muro MD POINT OF CARE TEST ORDERABLE S Final Result [facility]
[address] [place] [address], * Hemoglobin A1C With EMG (06/07/2025 1:05 [...] - 06/09/2025 12:08 AM EDT Performed at: [address] [place] [id number] Talent Acquisition Administrator: Franklyn Rodriguez PhD, Phone: [phone] Edita Guzman APRN LAB BLOOD ORDERABLE S Final Result [facility] [address] [place] [address], * TSH Rfx On Abnormal To Free T4 (06/07/2025 12:57 AM EDT) TSH 0.534 0.270 - 4.200 uIU/mL 06/07/2025 1:35 AM EDT [facility] Blood Venipuncture / Unknown 06/07/2025 12:57 AM EDT 06/07/2025 1:01 AM EDT us Rolan Muro MD LAB BLOOD ORDERABLES Final R esult Performing Organization Address City/[facility]/ZIP Co de Phone Number [facility]
[address] [place] [address], * Magnesium (06/07/2025 12:57 AM EDT) Pathologist [facility] Magnesium 1.8 1.6 - 2.4 mg/dL 06/07/2025 1:35 AM EDT [facility] Blood Venipuncture / Unknown 06/07/2025 12:57 AM EDT 06/07/2025 1:01 AM EDT Rolan Muro MD LAB BLOOD ORDERABLES Final R esult Performing Organization Address [facility]/RUST de Phone Number [facility]
[address] [place] [address], * (ABNORMAL) CBC Auto Differential (06/07/2025 12:57 AM EDT) Pathologist [facility] WBC 18.26(H) 3.40 - 10.80 10*3/mm3 06/07/2025 1:04 AM EDT [facility] RBC 2.88(L) 4.14 - 5.80 10*6/mm3 06/07/2025 1:04 AM EDT [facility] Hemoglobin 9.0(L) 13.0 - 17.7 g/dL 06/07/2025 1:04 AM EDT [facility] Hematocrit 28.1(L) 37.5 - 51.0 % 06/07/2025 1:04 AM EDT [facility] MCV 97.6(H) 79.0 - 97.0 fL 06/07/2025 1:04 AM EDT [facility] MCH 31.3 26.6 - 33.0 pg 06/07/2025 1:04 AM [facility] MCHC 32.0 31.5 - 35.7 g/dL 06/07/2025 1:04 AM [facility] RDW 15.7(H) 12.3 - 15.4 % 06/07/2025 1:04 AM [facility] RDW-SD 56.1(H) 37.0 - 54.0 fl 06/07/2025 1:04 AM [facility] MPV 12.4(H) 6.0 - 12.0 fL 06/07/2025 1:04 AM [facility] Platelets 120(L) 140 - 450 10*3/mm3 06/07/2025 1:04 AM [facility] Neutrophil % 84.7(H) 42.7 - 76.0 % 06/07/2025 1:04 AM [facility] Lymphocyte % 2.8(L) 19.6 - 45.3 % 06/07/2025 1:04 AM [facility] Monocyte % 7.5 5.0 - 12.0 % 06/07/2025 1:04 AM [facility] Eosinophil % 0.0(L) 0.3 - 6.2 % 06/07/2025 1:04 AM [facility] Basophil % 0.1 0.0 - 1.5 % 06/07/2025 1:04 AM [facility] Immature Grans % 4.9(H) 0.0 - 0.5 % 06/07/2025 1:04 AM [facility] Neutrophils, Absolute 15.45(H) 1.70 - 7.00 10*3/mm3 06/07/2025 1:04 AM [facility] Lymphocytes, Absolute 0.52(L) 0.70 - 3.10 10*3/mm3 06/07/2025 1:04 AM [facility] Monocytes, Absolute 1.37(H) 0.10 - 0.90 10*3/mm3 06/07/2025 1:04 AM EDT [facility] Eosinophils, Absolute 0.00 0.00 - 0.40 10*3/mm3 06/07/2025 1:04 AM EDT [facility] Basophils, Absolute 0.02 0.00 - 0.20 10*3/mm3 06/07/2025 1:04 AM EDT [facility] Immature Grans, Absolute 0.90(H) 0.00 - 0.05 10*3/mm3 06/07/2025 1:04 AM EDT [facility] nRBC 0.0 0.0 - 0.2 /100 WBC 06/07/2025 1:04 AM EDT [facility] Blood Venipuncture / Unknown 06/07/2025 12:57 AM EDT 06/07/2025 1:00 AM EDT Rolan Muro MD LAB BLOOD ORDERABLES Final R esult [facility]
[address] [place] [address], * (ABNORMAL) Comprehensive Metabolic Panel (06/07/2025 12:57 AM EDT) Glucose 77 65 - 99 mg/dL 06/07/2025 1:35 AM EDT [facility] BUN 52.4(H) 8.0 - 23.0 mg/dL 06/07/2025 1:35 AM EDT [facility] Creatinine 6.07(H) 0.76 - 1.27 mg/dL 06/07/2025 1:35 AM EDT [facility] Sodium 136 136 - 145 mmol/L 06/07/2025 1:35 AM EDT [facility] Potassium 5.0 3.5 - 5.2 mmol/L 06/07/2025 1:35 AM EDT [facility] Chloride 93(L) 98 - 107 mmol/L 06/07/2025 1:35 AM EDT [facility] CO2 27.9 22.0 - 29.0 mmol/L 06/07/2025 1:35 AM EDT [facility] Calcium 9.0 8.6 - 10.5 mg/dL 06/07/2025 1:35 AM T [facility] Total Protein 6.1 6.0 - 8.5 g/dL 06/07/2025 1:35 AM EDT [facility] Albumin 3.0(L) 3.5 - 5.2 g/dL 06/07/2025 1:35 AM EDT [facility] ALT (SGPT) 652(H) 1 - 41 U/L 06/07/2025 1:35 AM T [facility] AST (SGOT) 558(H) 1 - 40 U/L 06/07/2025 1:35 AM T [facility] Alkaline Phosphatase 102 39 - 117 U/L 06/07/2025 1:35 AM EDT [facility] Total Bilirubin 0.9 0.0 - 1.2 mg/dL 06/07/2025 1:35 AM T [facility] Globulin 3.1 gm/dL 06/07/2025 1:35 AM T [facility] Comment:Calculated Result A/G Ratio 1.0 g/dL 06/07/2025 1:35 AM T [facility] BUN/Creatinine Ratio 8.6 7.0 - 25.0 06/07/2025 1:35 AM EDT [facility] Anion Gap 15.1(H) 5.0 - 15.0 mmol/L 06/07/2025 1:35 AM [facility] eGFR 9.0(L) >60.0 mL/min/1.7 3 06/07/2025 1:35 AM [facility] Blood Venipuncture / Unknown 06/07/2025 12:57 AM EDT 06/07/2025 1:01 AM EDT [facility] - 06/07/2025 1:35 AM EDT [...] does not include race as a factor Rolan Muro MD LAB BLOOD ORDERABLES Final R esult [facility]
[address] [place] [address], * (ABNORMAL) Lipid Panel (06/07/2025 12:57 AM EDT) Total Cholesterol 62 0 - 200 mg/dL 06/07/2025 1:35 AM EDT [facility] Triglycerides 58 0 - 150 mg/dL 06/07/2025 1:35 AM EDT [facility] HDL Cholesterol 33(L) 40 - 60 mg/dL 06/07/2025 1:35 AM EDT [facility] LDL Cholesterol 15 0 - 100 mg/dL 06/07/2025 1:35 AM EDT [facility] VLDL Cholesterol 14 5 - 40 mg/dL 06/07/2025 1:35 AM EDT [facility] LDL/HDL Ratio 0.53 06/07/2025 1:35 AM EDT [facility] Blood Venipuncture / Unknown 06/07/2025 12:57 AM EDT 06/07/2025 1:01 AM EDT Narrative [facility] - 06/07/2025 1:35 AM [...] using the NIH LDL-C calculation. Edita Guzman DIRECTOR OF MEDICAL EDUCATION LAB BLOOD ORDERABLE S Final Result [facility]
[address] [place] [address], * POC Glucose Once (06/06/2025 10:47 PM EDT) Glucose 80 70 - 130 mg/dL 06/06/2025 10:49 PM EDT [facility] Comment:Serial Number: [id number] Blood 06/06/2025 10:4 7 PM EDT 06/06/2025 10:49 PM EDT Rolan Muro MD POINT OF CARE TEST ORDERABLE S Final Result Performing Organization Address City/[facility]/ZIP Co de Phone Number [facility]
[address] [place] [address], * CT Outside Abd/Pelvis (06/06/2025 8:47 PM [...] disease) End stage renal disease Atrial fibrillation Choledocholithiasis Calculus of bile duct without mention of cholecystitis or obstruction Encounter for removal of biliary stent documented [...] 06/07/25 at 0900, If patient fails dysphagia, ND option MUST be given. Do not exceed [...] 06/07/25 at 0900, If patient fails dysphagia, ND option MUST be given. Do not exceed [...] if bisacodyl oral is ineffective, Starting on 06/06/25 at 2346, Use if no bowel movement after 12 hours. Hold for diarrhea Given 06/13/2025 1:28 PM EDT 10 mg bupivacaine-EPINEPHrine PF (MARCAINE w/EPI) 0.25% -[id number] injection As Needed, Starting on 06/09/25 at 1109 Given 06/09/2025 11:09 AM EDT 30 mL Abdominal Tissue Calcium Replacement - Follow Nurse / BPA [...] BPA Driven Protocol Open Order & Select [facility] Electrolyte Replacement Protocol Algorithm to View Details [...] with 40mL NS at 100mL/hr. sodium chloride 0.9 % solution As Needed, Starting on 06/09/25 at 1109 Given 06/09/2025 11:09 AM EDT 1,000 mL sodium chloride nasal spray 2 spray 2 spray, Each Nare, Every 30 Minutes PRN, Congestion, Starting on Wed06/13/25 at 0329, (BK) Given 06/13/2025 4:15 AM EDT 2 sprays sterile water irrigation solution As Needed, Starting on Wed06/09/25 at 1100 Given 06/09/2025 11:00 AM EDT 1,000 mL vancomycin (dosing per levels) Daily, 10 doses, [...] Howell RN) 0945 (Given - Provider: Jai Zayas RN) amLODIPine (NORVASC) tablet 10 mg 10 mg, Oral, Every 24 Hours Scheduled, First dose on Betty 06/14/25 at 0900, Hold for SBP less than 100, DBP less than 60. Caution: Look alike/sound alike drug alert. Avoid grapefruit juice. 0945 (Given - Provider: Jai Zayas RN) apixaban (ELIQUIS) tablet 5 mg 5 mg, [...] Howell RN) 0945 (Given - Provider: Jai Zayas RN) aspirin chewable tablet 81 mg(Linked Group 1) 81 mg, Oral, Daily, First dose on Betty 06/07/25 at 0900, If patient fails dysphagia, ND option MUST be given. Do not exceed [...] 06/07/25 at 0900, If patient fails dysphagia, ND option MUST be given. Do not exceed [...] (Not Given: See Alt - Provider: Jai Zayas, RN) atorvastatin (LIPITOR) tablet 80 mg 80 [...] Education 0827 (Given - Provider: Lynn Castano, CHILD CARE WORKER)1213 (Given - Provider: Lynn Castano, CHILD CARE WORKER)1803 (Not Given - Provider: Lynn Castano, SARAH - Reason: Other - Comment: RT UNAVAILABLE [...] at 2130 0837 (Given - Provider: Lita Smith RN)203 (Canceled Entry - Provider: Jim Howell RN) 1328 (Given - Provider: Lita Smith RN)2300 (Canceled Entry - Provider: Jim Howell RN) 0949 (Canceled Entry - Provider: Jai Zayas, HIEU) sodium chloride 0.9 % flush 10 mL 10 mL, Intravenous, Every 12 Hours Scheduled, First dose on Betty 06/07/25 at 0045 0835 (Given - Provider: Lita Smith RN)203 (Canceled Entry - Provider: Jim Howell RN) [...] BPA Driven Protocol Open Order & Select [facility] Electrolyte Replacement Protocol Algorithm to View Details [...] is ineffective. 1333 (Given - Provider: Jai Zayas, HIEU) oxyCODONE-acetaminophen (PERCOCET) 5-325 MG per tablet 1 tablet 1 tablet, Oral, Every 4 Hours PRN, Moderate Pain, Starting on Wed06/09/25 at 1230, For 10 days, [MEENA] Do [...] PRN, Starting on Wed06/12/25 at 0907, Until Wed06/14/25 at 1733, Consult, Indications: Bacteremia Phosphorus Replacement [...] Patient/family refused) 1223 (Given - Provider: Lita Smith RN) Potassium Replacement - Follow Nurse / BPA Driven Protocol Open Order & Select S Electrolyte Replacement Protocol Algorithm to View Details sennosides-docusate (PERICOLACE) 8.6-50 MG per tablet 2 tablet(Linked Group 3) 2 tablet, Oral, 2 Times Daily PRN, Constipation, Starting on 06/06/25 at 2346, Start bowel management regimen if patient has not had a bowel movement after 12 hours. 0836 (Given - Provider: Lita Smith RN) 2014 (Given - Provider: Jim Howell [...] PRN, Congestion, Starting on Wed06/13/25 at 0329, ([facility]) 0415 (Given - Provider: Jim Howell RN) Linked Groups Order Group 1: aspirin chewable tablet 81 mgJump to med 81 mg, Oral, Daily, First dose on Betty 06/07/25 at 0900, If patient fails dysphagia, ND option MUST be given. Do not exceed [...] 06/07/25 at 0900, If patient fails dysphagia, ND option MUST be given. Do not exceed [...] if polyethylene glycol is ineffective, Starting on 06/06/25 at 2346, Use if no bowel movement after 12 hours. Swallow whole. Do not crush, split, or chew tablet. And bisacodyl (DULCOLAX) suppository 10 mgJump to med 10 mg, Rectal, Daily PRN, Constipation, Use if bisacodyl oral is ineffective, Starting on 06/06/25 at 2346, [...] documented as of this encounter Care Teams [employer] Sand[employer] Machine Operator Relationship Specialty Start Date End Date Jeffrey Sun MD [address] [facility] [address] [facility] [address] [place] [id number] PCP - General Family Medicine 06/06/25 documented as of this encounter
--- OUTSIDE RECORDS SUMMARY | 2025-06-09 09:40 | XMS_ITS | Encounter Summary ---
Author Organization [facility] Address [address] [place] [address] Care Team Providers Care Manager Of Compensation Name Role Phone Jeffrey Sun MD Primary Care Provider + [phone] Reason for Visit * Auth/Cert Specialty Diagnoses / Procedures Referred By Neil stephens Referred To Contact Diagnoses Cerebrovascular Accident (stroke) Referral ID Status Reason Start Date Expiration Date Visits Re quested Visits Authorized [id number] 1 1 Encounter Details Date Type Department Care Team (Late st Contact Info) Description 06/09/2025 10:40 AM EDT Anesthesia Event [facility] [address] [place] [address] Matt Eugene MD [address] [place] [id number] Anesthesia Record Procedure Summary Procedure Name Responsible Anesthesiologist Anesthesia Start Time Anesthesia Stop Time CHOLECYSTECTOMY LAPAROSCOPIC (Abdomen) Matt Eugene MD 06/09/25 1040 06/09/25 1231 Events Date Time Event Comment 06/09/2025 0813 1031 AN Equip Check 1040 An Start The patient was reevaluated immediately before moderate or deep sedation use and before anesthesia induction. 1040 An Start Data 1047 An Induction 1052 An Intubation 1219 An Extubation 1231 Handoff to RN The following has been [...] of report from the receiving PACU/ICU team 1231 An Stop 1232 an stop data Meds Name Total propofol 10 MG/ML 150 mg rocuronium 50 MG/5ML 50 mg lidocaine PF 1% 1 % 50 mg dexAMETHasone 4 MG/ML 4 mg ondansetron 2 mg/mL 4 mg fentaNYL citrate (PF) 100 MCG/2ML 100 mc g Phenylephrine HCl-NaCl 1000-0.9 MCG/10ML -% 300 mcg phenylephrine (RONAN-SYNEPHRINE) 50 mg in sodium chloride 0.9 % 250 mL infusion 140 mcg sugammadex 200 MG/2ML 200 mg sodium chloride 0.9 % infusion 600 mL * Agents Name O2 N2O Air Sevoflurane Inspired Sevoflurane * Blood No blood administrations on file. Lines, Drains, and Airways Type Details Placement Removal Wound 06/06/25; 1956; Y; L eft; proximal; arm; Traumatic; Skin Tear 06/06/251956 by Rosalina Ascencio RN Wound 06/06/25; 1957; Y; medial; coccyx; Pressure Inj 06/06/251957 by Rosalina Ascencio RN Hemodialysis Cath Double Unknown placement date/time; Left; Subclavian 06/07/25 1535 by Wound 06/09/25; 1109; abdo men; Surgical; Laparoscopic 06/09/25 1109 by Haydee Tsang RN Peripheral IV Placement Date: 06/09/25; Placement Time: 739; Orientation: Anterior, Left; Location: Forearm; Site Prep: Chlorhexidine isopropyl alcohol; Local Anes: None; Technique: Ultrasound guidance; Inserted by: Deonna Farrell RN; Insertion Attempts: 1; Patient Tolerance: Tolerated well; Removal Date: 06/12/25; Removal Time: 203006/09/25739 by Yeni Farrell RN 06/12/252030 by Jim Howell RN documented in this encounter Social History Tobacco Use Types Packs/Day Years Used Date Smoking Tobacco: Never Smokeless Tobacco: Never Alcohol Use Standard Drinks/Week Comments Never 0 (1 standard drink = 0.6 oz pur e alcohol) [facility] Utilities Answer Date Recorded In the [...] GED or equivalent No 06/07/2025 Preferred Language Egyptian 06/07/2025 Sex and Gender Information Value Date Recorded Sex Assigned at Not on file Legal Sex Male 1:16 PM EDT Gender Identity Not on file Sexual Orientation Not on file documented as of this encounter OR Notes * Anesthesia Postprocedure Evaluation - Maria Esther Espinoza CRNA - 06/09/2025 12:32 PM EDT Patient: Nicolás Fuentes Procedure Summary Date: 06/09/25 Room / Location: [facility] [address] [place] [address] [facility] Anesthesia Start: 1040 Anesthesia Stop: 1231 Procedure: CHOLECYSTECTOMY LAPAROSCOPIC (Abdomen) Diagnosis: Choledocholithiasis Surgeons: Charles Guerrero MD Provider: Matt Eugene MD Anesthesia Type: general ASA Status: 4 Anesthesia Type: general Vitals Vitals Value Taken Time BP 144/59 06/09/25 12:31 Temp 97.8 ??F (36.6 ??C) 06/09/25 12:31 Pulse 62 06/09/25 12:31 Resp 16 06/09/25 12:31 SpO2 92 % 06/09/25 12:31 Vitals shown include unfiled device data. Post Anesthesia Care and Evaluation Patient location during evaluation: PACU Patient participation: complete - patient participated Level of consciousness: awake and alert Pain score: 2 Pain management: adequate Airway patency: patent Anesthetic complications: No anesthetic complications PONV Status: none Cardiovascular status: hemodynamically stable and acceptable Respiratory status: nonlabored ventilation, acceptable and nasal cannula Hydration status: acceptable * Anesthesia Procedure Notes - Maria Esther Espinoza CRNA - 06/09/2025 11:02 AM EDTAssociated Order(s): Airway Airway Date/Time: 06/09/2025 10:55 AM * Anesthesia Preprocedure Evaluation - Matt Eugene MD - 06/09/2025 8:08 AM EDT Anesthesia Evaluation Patient summary reviewed and Nursing notes reviewed Airway Mallampati: II TM distance: >3 FB Neck ROM: full No difficulty expected Dental - normal exam Pulmonary - normal exam (+) pneumonia , COPD, Cardiovascular - normal exam (+) hypertension, dysrhythmias Atrial Fib, hyperlipidemia Neuro/Psych (+) CVA GI/Hepatic/Renal/Endo (+) liver disease history of elevated LFT, renal disease (LAST HD YESTERDAY)- ESRD and dialysis Musculoskeletal (-) negative ROS Abdominal - normal exam Bowel sounds: normal. Substance History - negative use SERVICES ACCOUNT MANAGER negative supply chain consultant ROS Other Anesthesia Plan ASA 4 general intravenous induction Anesthetic plan, risks, benefits, and alternatives have been provided, discussed and informed consent has been obtained with: patient. Plan discussed with QUALITY ASSURANCE CONSULTANT. CODE STATUS: Code Status (Patient has no [...] [facility] [address] [place] [address] 5 3:20 PM EST Hospital Encounter [facility] [address] [place] [address] Arnel Bell MD [address] [facility] [address] [place] [address] 5 3:20 PM EST - 5 4:02 PM EST Surgery [facility] [address] [place] [address] Arnel Bell MD [address] [facility] [address] [place] [address] ENDOSCOPIC RETROGRADE CHOLANGIOPANCREATOGRAPHY [50111 (CPT )] Scheduled Procedures Name Priority Associated Diagnoses Date/Ti ks ENDOSCOPIC RETROGRADE CHOLANGIOPANCREATOGRAPHY Encounter for removal of biliary stent 08/16/2025 3:20 PM EST documented as of this encounter Procedures Procedure Name Priority Date/Time Associated Diagnosis Comments ANESTHESIA INTUBATION Routine 06/09/2025 11:02 AM EDT documented in this encounter Results * Airway (06/09/2025 11:02 AM EDT) Narrative Maria Esther Espinoza CRNA - 06/09/2025 11:02 AM EDT Maria Esther Espinoza CRNA 06/09/2025 11:02 AM Airway Date/Time: 06/09/2025 10:55 AM Matt Eugene MD ANESTHESIA ORDERABLES Final Res ult documented in this encounter Visit Diagnoses Not on filedocumented in this encounter Administered Medications Inactive Administered Medications - up to 3 most recent administrations Medication Order MAR Action Action Date Dose Rate Site dexAMETHasone (DECADRON) injection Intravenous, As Needed, Starting on 06/09/25 at 1055 Given 06/09/2025 10:55 AM EDT 4 mg fentaNYL citrate (PF) (SUBLIMAZE) injection Intravenous, As Needed, Starting on 06/09/25 at 1047 Given 06/09/2025 11:16 AM EDT 50 mcg Given 06/09/2025 10:47 AM EDT 50 mcg lidocaine PF 1% (XYLOCAINE) injection Intravenous, As Needed, Starting on 06/09/25 at 1047 Given 06/09/2025 10:47 AM EDT 50 mg ondansetron (ZOFRAN) injection Intravenous, As Needed, Starting on 06/09/25 at 1123 Given 06/09/2025 11:23 AM EDT 4 mg phenylephrine (RONAN-SYNEPHRINE) 50 mg in sodium chloride 0.9 % 250 mL infusion Intravenous, Continuous PRN, Starting on 06/09/25 at 1136 New Bag 06/09/2025 11:36 AM EDT 5 mcg/mi n 1.5 mL/hr Phenylephrine HCl-NaCl 100 mcg/ml injection Intravenous, As Needed, Starting on 06/09/25 at 1105 Given 06/09/2025 11:36 AM EDT 100 mcg Given 06/09/2025 11:32 AM EDT 100 mcg Given 06/09/2025 11:05 AM EDT 100 mcg propofol (DIPRIVAN) injection Intravenous, As Needed, Starting on 06/09/25 at 1047 Given 06/09/2025 10:49 AM EDT 50 mg Given 06/09/2025 10:47 AM EDT 100 mg rocuronium (ZEMURON) injection Intravenous, As Needed, Starting on 06/09/25 at 1048 Given 06/09/2025 10:48 AM EDT 50 mg sodium chloride 0.9 % infusion Intravenous, Continuous PRN, Starting on 06/09/25 at 1040 New Bag 06/09/2025 10:40 AM EDT sugammadex (BRIDION) injection Intravenous, As Needed, Starting on 06/09/25 at 1206 Given 06/09/2025 12:06 PM EDT 200 mg documented in this encounter Additional Health Concerns Infection Onset Date Last Indicated Resolved Time Nettie Auris (rule out) 06/07/2025 06/07/2025 8:51 AM EDT MRSA 06/08/2025 06/08/2025 documented as of this encounter Care Teams Manager Of Compensation Relationship Specialty Start Date End Date Jeffrey Sun MD [address] [place] [address] PCP - General Family Medicine 06/06/25 documented as of this encounter
--- OUTSIDE RECORDS SUMMARY | 2025-07-10 09:15 | XMS_ITS ---
Author Organization [facility] Address [address] [place] [id number] Care Team Providers Care [employer] Name Role Phone Jeffrey Sun Primary Care Provider Caren Jones Unavailable [phone] Allergies No Known Allergies REASON FOR VISIT [facility] VISIT Medications Medication SIG (Take, Route, Frequency, Duration) Notes Start Date End Date Status Midodrine HCl 10 MG 1 tablet Orally three times a week to take to dialysis to be given prn low BP As needed to be given prn at dialysis for low BP on M,W,F Active Cough Drops 5.8 MG 1 lozenge as needed Mouth/Throat every 4 hours As needed Active Biofreeze Cool The Pain 4 % 1 application as needed Externally every 8 hours As needed to shoulders Active Regular Diet - as directed CCHO; DARLENE; no beans, bananas, oranges Active Calcium Acetate (Phos Binder) 667 MG 1 tablet with meals Orally Three times a day with meals Active Pro-Stat - 30ml Orally bid Act palomo Mucinex DM 30-600 MG 1 tablet as needed Orally every 12 hrs Active Benzonatate 100 MG 2 capsule as needed orally q8h prn Active Promethazine-DM 6.25-15 MG/5ML 5 mL as needed Orally every 6 hrs prn Active traZODone HCl 100 MG 1 tablet at bedtime Orally Once a day Active Zinc 220 (50 Zn) MG 1 capsule Orally Once a day Active Cetirizine HCl 10 MG 1 tab(s) orally once a day Active Nephro-Zack 0.8 MG 1 tablet Orally Once a day 1 mg Active Vitamin B 12 500 MCG 2 tab(s) orally once a day Active Montelukast Sodium 10 MG 1 tablet Orally Once a day Active Atorvastatin Calcium 80 MG 1 tab(s) orally once a day Active Pantoprazole Sodium 40 MG 1 tab(s) orally once a day Active Amiodarone HCl 200 MG TAKE 1 TABLET TWICE DAILY Active Fluticasone Propionate 50 MCG/ACT 1 spray in each nostril Nasally Once a day Active Oxygen - 2L/min continuous per nasal cannula as directed supplemental prn Active Acetaminophen 500 MG 2 tablet as needed Orally every 6 hrs prn Active Loperamide HCl 2 MG 1 capsule as needed Orally Four times a day Active Calamine-Zinc Oxide 8-8 % as directed Externally apply sacral tissue around wound Not-Taking Eliquis 2.5 MG 1 tab(s) orally 2 times a day Active Methoxy PEG-Epoetin Beta 75 MCG/0.3ML 3ml Injection at dialysis Not-Taking Iron Sucrose 20 MG/ML 2.5ml Intravenous M,W,F at dialysis Not-Taking Ondansetron 4 MG 1 tablet on the tongue and allow to dissolve Orally q8h prn Active Calmoseptine 0.44-20.6 % as directed Externally qd Not-Taking Calasoothe 0.44-20.625 % apply to sascrum after cleansing with NS; then applu abd pad Externally daily Active Rocaltrol 0.5 MCG 1 capsule Orally Three times a Week M,W,F Not-Taking Problems Problem Type SNOMED Code ICD Code Onset Dates Problem Status W/U Status Risk Notes Problem Cerebral infarction (272902505) Occipital stroke (I63.9) Active confirmed Vital Signs Blood pressure systolic 150 mm Hg 07/10/20 25 Blood pressure diastolic 79 mm Hg 025 Heart Rate 68 /min 07/10/2025 Respiratory Rate 20 /min 07/10/2025 Weight 243.8 lbs 07/10/2025 Encounters Encounter Location Date Provider Diagnosis [address] [place], [place] [id number] 07/10/2025 Caren Jones Type 2 diabetes eugene itus without complication E11.9 ; Atherosclerosis of [place] coronary artery without angina pectoris, unspecified whether re[place] or transplanted heart I25.10 ; Cough R05.9 [...] ; GERD (gastroesophageal reflux disease) K21.9 ; Acute allergic rhinitis J30.9 ; Shoulder pain, bilateral M25.511 and Occipital stroke I63.9 Assessments Encounter Date Diagnosis (ICD Code) Assessment Notes Treatment Notes Treatment Clinical Notes Section Notes 07/10/2025 Type 2 diabetes mellitus without complication (ICD-10 - E11.9) 07/10/2025 Atherosclerosis of [place] coronary artery without angina pectoris, unspecified whether [place] or transplanted heart (ICD-10 - I25.10) 07/10/2025 Cough (ICD-10 - R05.9) 07/10/2025 Hyperlipidemia, unspecified hyperlipidemia type (ICD-10 - E78.5) 07/10/2025 Anemia, unspecified type (ICD-10 - D64.9) labs completed as ordered by dialysis 07/10/2025 Chronic obstructive pulmonary disease, unspecified COPD type (ICD-10 - J44.9) 07/10/2025 End stage renal disease (ICD-10 - N18.6) on dialysis 3 x weekly 07/10/2025 Leg weakness (ICD-10 - R29.898) OOB as toerates; is OOB 3 x weekly when goes to dialysis; he does not like to get OOB otherwise; he states he cannot stand and lift is used for transfers 07/10/2025 Debility (ICD-10 - R53.81) 07/10/2025 CKD (chronic kidney disease) stage 5, GFR less than 15 ml/min (ICD-10 - N18.5) dialysis M,W,F 07/10/2025 Atrial fibrillation, unspecified type (ICD-10 - I48.91) 07/10/2025 Former smoker (ICD-10 - Z87.891) 07/10/2025 Sleep difficulties (ICD-10 - G47.9) 07/10/2025 Sacral decubitus ulcer (ICD-10 - L89.159) continues to be followed by wound care provider 07/10/2025 GERD (gastroesophageal reflux disease) (ICD-10 - K21.9) has seen GI; had ERCP and lap yashira; at [facility]; to have return visit 6-8 weeks for stent removal 07/10/2025 Acute allergic rhinitis (ICD-10 - J30.9) 07/10/2025 Shoulder pain, bilateral (ICD-10 - M25.511) 07/10/2025 Occipital stroke (ICD-10 - I63.9) To follow with Neuro at [facility] in 6-8 weeks; noted to have moderate dysarthria and mild cognitive linguistic disorder Plan Of Treatment Medication Medication Name Sig Start Date Stop Date Notes Midodrine HCl 10 MG 1 tablet Orally thre e times a week to take to dialysis to be given prn low BP to be given prn at dialysis for low BP on M,W,F Cough Drops 5.8 MG 1 lozenge as needed Mouth/Throat every 4 hours Biofreeze Cool The Pain 4 % 1 application as needed Externally every 8 hours to shoulders Regular Diet - as directed CCHO; DARLENE ; no beans, bananas, oranges Calcium Acetate (Phos Binder) 667 MG 1 tablet with meals Orally Three times a day with meals Pro-Stat - 30ml Orally bid Mucinex DM 30-600 MG 1 tablet as needed Orally every 12 hrs Benzonatate 100 MG 2 capsule as needed orally q8h prn Promethazine-DM 6.25-15 MG/5ML 5 mL as needed Orally every 6 hrs prn traZODone HCl 100 MG 1 tablet at bedtime Orally Once a day Zinc 220 (50 Zn) MG 1 capsule Orally Onc e a day Cetirizine HCl 10 MG 1 tab(s) orally onc e a day Nephro-Zack 0.8 MG 1 tablet Orally Once a day 1 mg Vitamin B 12 500 MCG 2 tab(s) orally onc e a day Montelukast Sodium 10 MG 1 tablet Orally Once a day Atorvastatin Calcium 80 MG 1 tab(s) orally once a day Pantoprazole Sodium 40 MG 1 tab(s) orally once a day Amiodarone HCl 200 MG TAKE 1 TABLET TWIC E DAILY Fluticasone Propionate 50 MCG/ACT 1 spray in each nostril Nasally Once a day Oxygen - 2L/min continuous pe r nasal cannula as directed supplemental prn Eliquis 2.5 MG 1 tab(s) orally 2 times a day Ondansetron 4 MG 1 tablet on the tongue and allow to dissolve Orally q8h prn Calasoothe 0.44-20.625 % apply to sascrum after cleansing with NS; then applu abd pad Externally daily Treatment Notes Assessment Notes Anemia, unspecified type labs completed as ordered by dialysis End stage renal disease on dialysis 3 x weekly Leg weakness OOB as toerates; is OOB 3 x weekly when goes to dialysis; he does not like to get OOB otherwise; he states he cannot stand and lift is used for transfers CKD (chronic kidney disease) stage 5, GFR less than 15 ml/min dialysis M,W,F Sacral decubitus ulcer continues to be f ollowed by wound care provider GERD (gastroesophageal reflux disease) h as seen GI; had ERCP and lap yashira; at [facility]; to have return visit 6-8 weeks for stent removal Occipital stroke To follow with Neuro at [facility] in 6-8 weeks; noted to have moderate dysarthria and mild cognitive linguistic disorder Next Appt Details Follow Up: 2 Months,and prn, Reason: Progress Notes * FUENTES, ALEXADOB:1950 (74 yo M)Acc No.[id number]:07/10/2025 Progress Notes Patient: ALEXA URIOSTEGUI Provider: CASEY Bradshaw :1950 A ge:74 Y S ex:Male Date:07/10/2025 Address:[address] [place] [address] [address], [facility] [id number] Pcp:Jeffrey Sun Subjective: * Chief Complaints: * [address] [facility] VISIT. * HPI: H PI: For routine [facility] visit; chart reviewed and patient examined; see ROS 06/06/2025; notes from [facility] ER visit 06/06/2025: General Adult HPI General Chief complaint: Weakness Stated complaint: STROKE ALERT Time Seen by Provider: 06/06/25 15:11 Mode of Arrival: EMS Source of Information: EMS Description of Symptoms (Recalled from ER Triage Doc. by RN): Patient sent from [facility] for sudden onset of weakness and not following any commands. Patient reportedly had dialysis earlier today, returned from dialysis, ambulated from bus to correction, and then was unable to walk. On arrival to ER, patient is non-verbal, not following any commands, not voluntarily moving any extremities. Possibly started maybe 30 minutes ago. History of Present Illness HPI narrative: Patient is a 58 male with history,, end-stage renal disease on Wednesday dialysis, on who presented to the emergency department from nursing facility for weakness, altered mental status. Patient arrived via EMS with concern for stroke alert. No per EMS, patient had dialysis was able to walk from the bus into the nursing facility but then became acutely altered. EMS thought that the patient was slumping to the right side which is what alerted the stroke alert. Patient was not following commands and last known normal was 3pm today. Patient had a normal blood sugar. On arrival, patient was unable to provide any history but stated that nothing was hurting him. Further history was obtained from family on their arrival: Family bedside states that patient has had global weakness in the last 2 years since starting dialysis. They state that patient is unable to ambulate at baseline and is unable to stand. They state that patient is largely wheelchair-bound. They state that patient has had a productive cough for the last 3 days. Patient has not had any fevers. Patient has no other complaints. They state that patient is on blood thinners for A-fib and has COPD and is on dialysis. Dialysis is not new and he has been doing it for 2 years. Patient does not have a history of diabetes. When patient arrived back into the room, they state that his global weakness is unchanged from his baseline however he does look acutely ill compared to his baseline from a couple days ago. They state that patient is not on any oxygen at baseline. Patient's labs were reviewed and interpreted by myself: CBC showed a leukocytosis, hemoglobin was stable. CMP was unremarkable except for mildly elevated creatinine at patient's baseline of 5 with known end-stage renal disease. Magnesium slightly low at 1.4. Patient did have elevated AST and ALT in the 400s. Initial troponin was elevated at 0.05. EKG was reviewed and interpreted by myself and showed normal sinus rhythm without acute ST or T wave changes concerning for ischemia. Given that patient was on a non-rebreather, patient was altered and unable to fully perform exam, CT head CTAs were ordered as well as CT chest and CT abdomen. After discussion with radiology, they stated that patient likely had some possible subacute strokes in the left occipital lobe. Patient did not have a large vessel occlusion. Patient is on Eliquis therefore was not a candidate for TNK. CT chest was reviewed and interpreted by myself and showed ground glass opacities and given patient's elevated white blood count with productive cough, patient was started on IV cefepime and blood cultures were obtained. I discussed the case with [facility] and they accept the patient for further stroke workup as well as patient will need dialysis given that he had IV contrast. Patient was maintaining 94% oxygen saturation on 4 L nasal cannula. Therefore, patient was transferred to [facility] for pneumonia, need for dialysis and further stroke workup. * ROS: R ESPIRATORY: no S hortness of breath. n o C hest pain. n o?Chest congestion. C ough y es, h as periodic cough. C ARDIOLOGY: Positive for C V visit 06/28/2025-Dr Durán Plan Details Active Problems Reviewed?: Yes Additional Comments: Pt is here for AFIB/CHF He needs surgery clearance. Pt is new to Cardiology Clinic Pt weight unable to obtain Hx of CAD. Pt denies chest pain/pressure Sob with heavy exertion. Pt denies dizziness/lightheadedness Pt denies swelling Pt denies numbness/tingling Pt c/o fatigue PAF is present he has been known to have this in the past. A/C with Eliquis. ESRD, on dialysis M,W,F BP is good today. No BP's in right arm due to his AV fistula EKG is Unusual P axis, RAD, pulmonary disease pattern, nonspecific ST abnormality, prolonged QT, rate is 58 bpm. Plan: 1. ECHO to look at LV function due to PAF and dyspnea at times 2. Maykel Myoview to rule out ischemia due to dyspnea and hx of CAD. 3. RTC 2-3 weeks. . n o C hest pain. L eg edema y es, p eriodic. n o S hortness of breath. D ERMATOLOGY: wound n ursing feels sacral w ound is improving; continues to followed by wound care provider. G ASTROENTEROLOGY: Positive for e ating as usual; GI consult/visit, Yojana Cope ,CONSTRUCTION MANAGEMENT ASSISTANT 06/04/2025 HPI Anemia History of Present Illness Current symptoms: Reports fatigue HPI Comments Details: This is a 74-year-old male with end-stage renal disease, A-fib on Wednesday dialysis. He was referred here by [facility] in [place]. The patient has had progressively worsening anemia with a hemoglobin as low as 8.8 recently. His iron levels were low at 61 although he did have an elevated ferritin level. He did have a positive Hemoccult. He does report fatigue. He is on Eliquis for A-fib. He denies any alcohol or NSAIDs. The patient denies any melena or hematochezia. The correction usually changes his diaper but have not reported melena or hematochezia. The patient and family think that he had a Cologuard test a couple years ago but did undergo colonoscopy with Dr. Mullen in 2018 but he thinks he had a colonoscopy later than that at . He reports he never is going to have another colonoscopy again. He denies any family history of colon cancer or other GI cancers, IBD or celiac disease. He denies any change in his bowel habits. Assessment & Plan (1) Chronic a-fib: Code(s): I48.20 - Chronic atrial fibrillation, unspecified Status:Chronic (2) retirement current use of anticoagulant: Code(s): Z79.01 - retirement (current) use of anticoagulants Status:Chronic (3) Iron deficiency anemia: Code(s): D50.9 - Iron deficiency anemia, unspecified Status:Acute (4) Heme positive stool: Code(s): R19.5 - Other fecal abnormalities Status:Resolved Plan 1. Iron deficiency anemia/Hemoccult positive/ESRD/long-term use of anticoagulants Patient has a history of mild anemia given his ESRD but has had progressively worsening hemoglobin with the recent hemoglobin of 8.8. Iron was low at 61 but ferritin was high over 300. He did have a positive Hemoccult test. Patient is on Eliquis for A-fib. He is a Wednesday dialysis patient and lives at [facility]. Patient does report some fatigue. No alcohol. No NSAIDs. He has not noticed any melena or hematochezia. Schedule EGD after clearance.. n o N ausea. n o V omiting. D iarrhea y es, jerome e feels this is better.? M USCULOSKELETAL: Positive for H elke gets OOB for dialysis 3 x weekly. J oint pain y es, s alexy; OT is visiting for this. * Medical History: H ypertension, Type 2 Diabetes, Hypercholestrolemia, Hypertriglyceridemia, Anemia, Cataract, Colon Polyps, Atrial Fibrilation, 2019, Sleep Apnea , Proteinuria, Stage 4 Chronic Kidney Disease, stage 4 as of 2019, Nephrology, Covid with Pneumonia, s/p [facility] 2 months and SNF 5 months, 09/28/2020, ESKD with dialysis 3 times weekly 2024 at [facility] dialysis, Valvular Heart disease, Parotitis, Occipital stroke. * Surgical History: K idney Stone Removal- [facility] 2006, Prostate- [facility] 2010, Heart Cath & ECHO 04/2017, ERCP/Dr. Foote at [facility] with stone removal and stent placement into common bile dust 06/08/2025, Lap cholecystectomy 06/09/2025. * Hospitalization/Major Diagno stic Procedure: C ovid-19- [facility] 2020, Respiratory Failure- and [facility] 2020, Stage 4 Chronic Kidney Disease, GFR 15-29 ml/min 06/13-, [facility]- Occipital stroke; Choledocholithiasis; Pneumonis; parotitis;ESRP;Lap Yashira; vlavular HD 06/06-06/13/2025. * Family History: F ather: , cancer. [...] . Alcohol: No. * Medications: T aking Calasoothe 0.44-20.625 % Ointment apply to sascrum after cleansing with NS; then applu abd pad Externally daily , Taking Biofreeze Cool The Pain 4 % Gel 1 application as needed Externally every 8 hours As needed, Notes to Pharmacist: to shoulders, Taking Cough Drops 5.8 MG Lozenge 1 lozenge as needed Mouth/Throat every 4 hours As needed, Taking Eliquis 2.5 MG Tablet 1 tab(s) [...] capsule Orally Once a day , Taking Vitamin B 12 500 MCG Tablet 2 tab(s) orally once a day , Taking Nephro-Zack [...] MG Capsule 2 capsule as needed orally 3 times a day As needed, Taking traZODone HCl 100 MG Tablet 1 tablet at bedtime Orally Once a day , Taking Pro-Stat - Liquid 30 ml Orally bid , Notes to Pharmacist: no carb, Taking Midodrine HCl 10 MG Tablet 1 tablet Orally three times a week to take to dialysis to be given prn low BP As needed, Notes to Pharmacist: M,W,F, Taking Calcium Acetate (Phos Binder) 667 MG Tablet 1 tablet with meals Orally Three times a day with meals , Taking Ondansetron 4 MG Tablet Disintegrating [...] Pharmacist: CCHO; DARLENE; no beans, bananas, oranges, Not-Taking Calmoseptine 0.44- 20.6 % Ointment as directed Externally qd , Not-Taking Iron Sucrose 20 MG/ML Solution 2.5ml Intravenous M,W,F at dialysis , Not-Taking Rocaltrol 0.5 MCG Capsule 1 capsule Orally Three times a Week M,W,F , Not-Taking Calamine-Zinc Oxide 8-8 % Lotion as directed Externally apply sacral tissue around wound , Not-Taking Methoxy PEG- Epoetin Beta 75 MCG/0.3ML Solution Prefilled Syringe 3ml Injection at dialysis * Allergies: N .K.D.A. Objective: * Vitals: W t: 243.8, Temp: 97.9, BP: 160/70,108/68,149/64,138/56,108/68,150/79, HR: 68, O2 Sat: 96%, Nurse: reviewed/recorded by monique, RR: 20. * Examination: G eneral Examination: General Appearance: N AD, alert, pleasant, well nourished and hydrated' OT working with pt and he seems to be tolerating and enjoying. C hest: l eft upper chest with dialysis port. H eart: R RR. L ungs: C TAB A&P; good air movement posteriorly. A bdomen: b owel sounds present, soft and nontender. N eurologic Exam:?alert and oriented; cognition seems normal and speech is clear. E xtremities: n o leg edema today. L ABS: date of labs . C BC-hgb/hct/wbc 8 .5/27.2/11.08; plt ct [id number]. T otal Cholesterol 6 2. T riglyceride 5 8. L DL 1 5.?HDL 3 3. H bA1C 4 .9. T SH 0 .534. S GOT/SGPT 1 68/465. a lk phos 1 12. 0 06/06/25 15:25: WBC 21.4 H*, RBC 3.09 L, Hgb 9.8 L, Hct 30.1 L, MCV 97.4 H, MCH 31.7 H, MCHC 32.6, RDW 15.7, Plt Count 177, MPV 11.6 H, Neut % (Auto) 88.2 H, Lymph % (Auto) 2.0 L, Sherman % (Auto) 7.2, Eos % (Auto) 0.0 L, Baso % (Auto) 0.1, Neut # (Auto) 18.9 H, Lymph # (Auto) 0.4 L, Sherman # (Auto) 1.5 H, Eos # (Auto) 0.0, Baso # (Auto) 0.0, Total Counted 100, Neutrophils % (Manual) 95 H, Lymphocytes % (Manual) 2 L, Monocytes % (Manual) 3, Platelet Estimate Normal, RBC Morphology Not Reportable, Polychromasia 1+, Poikilocytosis 1+, Anisocytosis 1+, Macrocytosis 1+, Target Cells 1+, Ovalocytes 1+, Lewellen Cells 1+, PT 14.7 H, INR 1.35 H, APTT 33.7 H, Sodium 132 L, Potassium 4.0, Chloride 91 L, Carbon Dioxide 30, Anion Gap 15.0, BUN 45 H, Creatinine 5.10 H, Estimated Creat Clear 15, Estimated GFR 11 L*, Est GFR ( Amer) 13 L*, Glucose 84, Calcium 8.7, Magnesium 1.4 L, Total Bilirubin 1.5 H, AST 485 H*, ALT 482 H*, Alkaline Phosphatase 118, Troponin I 0.05 H, Total Protein 6.9, Albumin 3.5, Globulin 3.4 H, Albumin/Globulin Ratio 1.0 L, Triglycerides 91, Cholesterol 77 L, LDL Cholesterol Direct < 30.00 L, VLDL Cholesterol 18, HDL Cholesterol 28 L, Cholesterol/HDL Ratio 2.8, Lipase 29, Acetaminophen < 10 L, Plasma/Serum Alcohol < 10 06/06/25 15:45: VBG pH 7.42 H, VBG pCO2 42.5, VBG pO2 72.8 H, VBG HCO3 26.7, VBG Total CO2 28.0 H, VBG O2 Saturation 91.8 H, VBG Base Excess 2.2, VBG Lactic Acid 2.4 H. X ray: MRI of the brain at [facility] tiny acute infarct within left occipital lobe; chronic infarcts involving bilateral cerebellum and left occipital lobe. E CHO at [facility] LVEF 56-60% Severe mitral calcifications mild to moderate MVR Mod calcification of Aortic valve with regurgitation; elevated right ventricular systolic pressure. Assessment: * Assessment: 1. C ough - R05.9 (Primary) 2 . T ype 2 diabetes mellitus without complication - E11.9 3 . A therosclerosis of [place] coronary artery without angina pectoris, unspecified whether [place] or transplanted heart - I25.10 4 . [...] (gastroesophageal reflux disease) - K21.9 1 6. S houlder pain, bilateral - M25.511 1 7. A cute allergic rhinitis - J30.9 1 8. O ccipital stroke - I63.9 Plan: * Treatment: 2. T ype 2 diabetes mellitus without complication Continue Regular Diet -, -, as directed, Notes to Pharmacist: CCHO; DARLENE; no beans, bananas, oranges. 3. H yperlipidemia, unspecified hyperlipidemia type Continue Atorvastatin Calcium Tablet, 80 MG, 1 tab(s), orally, once a day. 4. A nemia, unspecified type Continue Vitamin B 12 Tablet, 500 MCG, 2 tab(s), orally, once a day. Notes: labs completed as ordered by dialysis 5. C hronic obstructive pulmonary disease, unspecified COPD type Continue Oxygen -, -, 2L/min continuous, per nasal cannula, as directed, Notes to Pharmacist: supplemental prn. 6. E nd stage renal disease Continue Nephro-Zack Tablet, 0.8 MG, 1 tablet, Orally, Once a day, Notes to Pharmacist: 1 mg; C ontinue Midodrine HCl Tablet, 10 MG, 1 tablet, Orally, three times a week to take to dialysis to be given prn low BP As needed, Notes to Pharmacist: to be given prn at dialysis for low BP on M,W,F;?Continue Calcium Acetate (Phos Binder) Tablet, 667 MG, [...] capsule, Orally, Once a day; C ontinue Pro-Stat Liquid, -, 30ml, Orally, bid; C ontinue Cal[place]oothe Ointment, 0.44-20.625 %, apply to sascrum after cleansing with NS; then applu abd pad, Externally, daily. Notes: continues to be followed by wound care provider 12. G ERD (gastroesophageal reflux disease) Continue Pantoprazole Sodium Tablet Delayed Release, 40 MG, 1 tab(s), orally, once a day. ? Notes: has seen GI; had ERCP and lap yashira; at [facility]; to have return visit 6-8 weeks for stent removal 13. S houlder pain, bilateral Continue Biofreeze Cool The Pain Gel, 4 %, 1 application as needed, Externally, every 8 hours As needed, Notes to Pharmacist: to shoulders. 14. A cute allergic rhinitis Continue Fluticasone Propionate Suspension, 50 MCG/ACT, 1 spray in each nostril, Nasally, Once a day; C ontinue Montelukast Sodium Tablet, 10 MG, 1 tablet, Orally, Once a day; C ontinue Cetirizine HCl Tablet, 10 MG, 1 tab(s), orally, once a day. 15. 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 O thers Continue Ondansetron Tablet Disintegrating, 4 MG, 1 tablet on the tongue and allow to dissolve, Orally, q8h prn. * Follow Up: 2 Months,and prn * Images: Billing Information: * Visit Code: 57990 subs. level 4. * Procedure Codes: * Electronic signature of Vanita Jones , ANA on 07/17/2025 at 07:56 AM EST Sign off status: Pending * Provider: CASEY Bradshaw Date: Generated for Areli berkowitz/Jessie/Pablo on: 09/16/2024 07:56 AM EST History and Physical Notes * Examination Category Sub-Category Detail Notes Category Not es General Examination Heart: RRR Lungs: CTAB A&P; good air m ovement posteriorly Abdomen: bowel sounds present , soft and nontender Extremities: no leg edema today General Appearance: NAD, alert, pleasant , well nourished and hydrated' OT working with pt and he seems to be tolerating and enjoying Neurologic Exam: alert and oriented; cognition seems normal and speech is clear Chest: left upper chest wit h dialysis port LABS CBC-hgb/hct/wbc 8.5/27.2/11.08; plt ct 28 6000 / 15:25: WBC 21.4 H*, RBC 3.09 L, Hgb 9.8 L, Hct 30.1 L, MCV 97.4 H, MCH 31.7 H, MCHC 32.6, RDW 15.7, Plt Count 177, MPV 11.6 H, Neut % (Auto) 88.2 H, Lymph % (Auto) 2.0 L, Sherman % (Auto) 7.2, Eos % (Auto) 0.0 L, Baso % (Auto) 0.1, Neut # (Auto) 18.9 H, Lymph # (Auto) 0.4 L, Sherman # (Auto) 1.5 H, Eos # (Auto) 0.0, Baso # (Auto) 0.0, Total Counted 100, Neutrophils % (Manual) 95 H, Lymphocytes % (Manual) 2 L, Monocytes % (Manual) 3, Platelet Estimate Normal, RBC Morphology Not Reportable, Polychromasia 1+, Poikilocytosis 1+, Anisocytosis 1+, Macrocytosis 1+, Target Cells 1+, Ovalocytes 1+, Lewellen Cells 1+, PT 14.7 H, INR 1.35 H, APTT 33.7 H, Sodium 132 L, Potassium 4.0, Chloride 91 L, Carbon Dioxide 30, Anion Gap 15.0, BUN 45 H, Creatinine 5.10 H, Estimated Creat Clear 15, Estimated GFR 11 L*, Est GFR ( Amer) 13 L*, Glucose 84, Calcium 8.7, Magnesium 1.4 L, Total Bilirubin 1.5 H, AST 485 H*, ALT 482 H*, Alkaline Phosphatase 118, Troponin I 0.05 H, Total Protein 6.9, Albumin 3.5, Globulin 3.4 H, Albumin/Globulin Ratio 1.0 L, Triglycerides 91, Cholesterol 77 L, LDL Cholesterol Direct < 30.00 L, VLDL Cholesterol 18, HDL Cholesterol 28 L, Cholesterol/HDL Ratio 2.8, Lipase 29, Acetaminophen < 10 L, Plasma/Serum Alcohol < 10 06/06/25 15:45: VBG pH 7.42 H, VBG pCO2 42.5, VBG pO2 72.8 H, VBG HCO3 26.7, VBG Total CO2 28.0 H, VBG O2 Saturation 91.8 H, VBG Base Excess 2.2, VBG Lactic Acid 2.4 H LDL 15 HDL 33 SGOT/SGPT 168/465 HbA1C 4.9 Total Cholesterol 62 TSH 0.534 Triglyceride 58 alk phos 112 date of labs 06/11/2025 X ray MRI 06/07/2025 of the brain at [facility] tiny acute infarct within left occipital lobe; 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
--- NOTE | 2025-07-17 | CA_ITS ---
APPROVED REPORT Exam: Pharmacologic Technologist: Anny Foote Stress Nurse: Alice VIERA, RN Ht: 6 ft 4 in Wt: 242 lbs BSA: 2.40 m2 HR: 55 bpm BP: 124/61 mmHg Indications: Dyspnea, Coronary Artery Disease, Paroxysmal Atrial Fibrillation Stress Test Details Test: Lexiscan Reversal agent Aminophyline 100.0 mg, given intravenously for nausea. HR Resting HR: 55 bpm Max Heart Rate (APMHR): 144.974100 bpm Max HR Achieved: 81 bpm Target HR (85% APMHR): 122.977086 bpm % of APMHR: 56.25 Recovery HR: 64 bpm BP Resting BP: 124.0/61.0 mmHg Max BP: 160.0/76.0 mmHg Recovery BP: 140.0/64.0 mmHg ECG Resting ECG: Junctional bradycardia/Paroxysmal Atrial fibrillation Stress ECG Conclusion Lungs clear to auscultation prior to start of test. Symptoms: Nausea, vomiting, hypotension. Arrhythmias/Ectopy: Paroxysmal atrial fibrillation ST-T Changes: Less than 0.[address] segment changes. Conclusion: Nondiagnostic ECG/Lexiscan Electronically signed by : Leeanna Srivastava MD 07/18/2025 00:56:59
--- OUTSIDE RECORDS SUMMARY | 2025-07-17 07:56 | XMS_ITS | Encounter Summary ---
Author Organization [facility] Address [address] [place] [address] Care Team Providers Care Cytotechnologist/Histotechnologist Name Role Phone Jeffrey Sun MD Primary Care Provider [phone] Donny Garcia MD Unavailable [phone] Tutu Bliss MD Unavailable [phone] Reason for Visit * Reason Comments Med Refill Encounter Details Date Type Department Care Team (Late st Contact Info) Description 07/15/2022 Refill [facility] [address], [address] [place] [address] Tutu Bliss MD [address] [facility] [address] [place] [address] CKD (chronic kidney disease) stage 4, GFR 15-29 ml/min ([facility]); Primary hypertension; Nephrotic range proteinuria Social History [...] after dialysis was initiated. Patient seen in [facility]. Refill not appropriate for this clinic. documented in this encounter Plan of Treatment Not on file documented as of this encounter Visit Diagnoses Diagnosis CKD (chronic kidney disease) stage 4, GFR 15-29 ml/min ([facility]) Chronic kidney disease, Stage IV (severe) Primary [...] documented as of this encounter Care Teams Cytotechnologist/Histotechnologist Relationship Specialty Start Date End Date Jeffrey Sun MD [facility] [address] [facility] PCP - General 01/24/21 Donny Garcia MD [address] [place] [address] Surgeon Vascular Surgery 08/13/22 Tutu Bliss MD [address] [place] [id number] Consulting Physician Nephrology 08/13/22 documented as of this encounter
--- OUTSIDE RECORDS SUMMARY | 2025-07-17 07:56 | XMS_ITS | Clinical Summary ---
Author Organization [facility] Address [address] [place] [address] Care Team Providers Care Slide Maker Name Role Phone Jeffrey Sun MD Primary Care Provider + [phone] Allergies No known active allergies Medications calcium acetate (PHOS BINDER,) 667 MG capsule capsule Take 1 capsule by mouth 3 (Three) Times a Day. Active midodrine (PROAMATINE) 5 MG tablet Take 2 tablets by mouth 3 (Three) Times a Week. Mon, Wed, Sat between [phone] Active amiodarone (PACERONE) 200 MG tablet Take 1 tablet by mouth 2 (Two) Times a Day. Active atorvastatin (LIPITOR) 80 MG tablet Take 1 tablet by mouth Every Night. Active menthol-zinc oxide (Calasoothe) 0.44-20.625 % ointment ointment Apply 1 Application topically to the appropriate area as directed Daily. Cleanse periwound/sacrum , with NS and apply ointment to periwound and cover with ABD Active cetirizine (zyrTEC) 10 MG tablet Take 1 tablet by mouth Every Night. Active fluticasone (VERAMYST) 27.5 MCG/SPRAY nasal spray Administer 2 sprays into the nostril(s) as directed by provider Every Night. Active montelukast (SINGULAIR) 10 MG tablet Take 1 tablet by mouth Every Night. Active guaiFENesin (MUCINEX) 600 MG 12 hr tablet Take 1 tablet by mouth 2 (Two) Times a Day. 30-600mg 1 tablet twice daily between 5429-0649 Active pantoprazole (PROTONIX) 40 MG EC tablet Take 1 tablet by mouth Daily. Active B Kqihdro-Q-Hqyc c Acid (CHRISTINE-CLAUDE PO) Take 1 tablet by mouth Daily. Active vitamin B-12 (CYANOCOBALAMI N) 1000 MCG tablet Take 1 tablet by mouth Daily. Active Zinc Sulfate 220 (50 Zn) MG tablet Take 1 tablet by mouth Daily. Active Protein (ProSource No Carb) liquid Take 30 mL by mouth Daily. Active acetaminophen (TYLENOL) 500 MG tablet Take 2 tablets by mouth 4 (Four) Times a Day As Needed for Mild Pain. Active Menthol (Cough Drops) 5.8 MG lozenge Dissolve 1 lozenge in the mouth Every 4 (Four) Hours As Needed (as needed). Active loperamide (IMODIUM) 2 MG capsule Take 1 capsule by mouth 4 (Four) Times a Day As Needed for Diarrhea. Active ondansetron (ZOFRAN) 4 MG tablet Take 1 tablet by mouth 3 (Three) Times a Day As Needed for Nausea or Vomiting. Active benzonatate (TESSALON) 100 MG capsule Take 1 capsule by mouth 3 (Three) Times a Day As Needed for Cough. Active aspirin 81 MG chewable tablet Chew 1 tablet Daily. Active apixaban (ELIQUIS) 5 MG tablet tablet Take 1 tablet by mouth Every 12 (Twelve) Hours. Active traZODone (DESYREL) 100 MG tablet Take 1 tablet by mouth At Night As Needed for Sleep. 5 Active amLODIPine (NORVASC) 10 MG tablet Take 1 tablet by mouth Daily. Active sennosides-doc usate (PERICOLACE) 8.6-50 MG per tablet Take 2 tablets by mouth 2 (Two) Times a Day As Needed for Constipation. Active polyethylene glycol (MIRALAX) 17 g packet Take 17 g by mouth Daily As Needed (Use if senna-docusate is ineffective). Active albuterol (ACCUNEB) 0.63 MG/3ML nebulizer solution Take 3 mL by nebulization Every 4 (Four) Hours As Needed for Wheezing. Active oxyCODONE-acet aminophen (PERCOCET) 5-325 MG per tabletIndicati ons:Choledocho lithiasis Take 1 tablet by mouth Every 4 (Four) Hours As Needed for Moderate Pain for up to 3 days. 18 tablet 5 06/17/20 vancomycin 1,000 mg in sodium chloride 0.9 % 250 mL IVPB Infuse 1,000 mg into a venous catheter 3 (Three) Times a Week for 5 doses. 5 06/26/20 Active Problems Problem Noted Date Diagnosed Date Encounter for removal of biliary stent Aortic stenosis 06/13/2025 Overview (06/13/2025): 06/07: Moderate aortic valve stenosis is present. Aortic valve area is 1.39 cm2. Peak velocity of the flow distal to the aortic valve is 308.8 cm/s. Aortic valve mean pressure gradient is 21.0 mmHg. Choledocholithiasis 06/07/2025 Acute respiratory failure with hypoxia CAP (community acquired pneumonia) 06/07/2025 ESRD (end stage renal disease) 06/07/2025 Atrial fibrillation 06/07/2025 Occipital stroke 06/06/2025 Encounters Date Type Department Care Team Description Prep for Surgery [facility] ORDERS ONLY [address] [place] [address] Arnel Bell MD Encounter for removal of biliary stent (Primary Dx) 10:40 AM EDT Anesthesia Event [facility] OR [address] [place] [address] Matt Eugene MD 5 9:00 AM EDT - 10:46 AM EDT Surgery [facility] OR [address] [place] [address] Charles Guerrero MD CHOLECYSTECTOMY LAPAROSCOPIC [63907 (CPT )] 5 10:46 AM EDT Anesthesia Event [facility] ENDO SUITES [address] [place] [address] Tom Dover MD Bach, Jeremy, CRNA 5 9:08 AM EDT - 5 10:15 AM EDT Surgery [facility] ENDO SUITES [address] [place] [address] Kishore Foote MD ENDOSCOPIC RETROGRADE CHOLANGIOPANCREATOGRAPHY [18107 (CPT )] 5 4:10 PM EDT Ancillary Procedure [facility] IP SPEECH PATH [address] [place] [address] 5 Travel 5 8:26 PM EDT - 5 3:33 PM EDT Hospital Encounter [facility] 3F [address] [place] [address] Suly Vargas, DO Muro, MD Mino Miguel, MD Loree Butler , MD Kermit Pike, Bell Porter MD Occipital stroke (Primary Dx); Choledocholithiasis; Cholecystitis Discharge Disposition: Intermediate Care 5 Travel from Last 3 Months Family History Medical History Relation Name Comments Cancer Father Relation Name Status Comments Father Social History Tobacco Use Types Packs/Day Years Used Date Smoking Tobacco: Never Smokeless Tobacco: Never Tobacco Cessation:Counseling Given: No Alcohol Use Standard Drinks/Week Comments Never 0 (1 standard drink = 0.6 oz pur e alcohol) [facility] Utilities Answer Date Recorded In the past 12 months has [email or web address], gas, oil, or water [employer] threatened to shut off services in your [...] GED or equivalent No 06/07/2025 Preferred Language Portuguese 06/07/2025 Sex and Gender Information Value Date [...] Mass Index 35.92 06/11/2025 2:43 PM EDT Plan of Treatment Upcoming Encounters Date Type Department Care Team (Late st Contact Info) Description 12:30 PM EST Pre-Admission Testing [facility] PREADMISSION T [address] [facility] [place] [address] 3:20 PM EST Hospital Encounter [facility] ENDO SUITES [address] [facility] [place] [address] Arnel Bell MD [address] [address] 3:20 PM EST - 4:02 PM EST Surgery [facility] ENDO SUITES [address] [facility] [place] [address] Arenl Bell MD [address] [address] ENDOSCOPIC RETROGRADE CHOLANGIOPANCREATOGRAPHY [69179 (CPT )] Scheduled Procedures Name Priority Associated Diagnoses Date/Ti me ENDOSCOPIC RETROGRADE CHOLANGIOPANCREATOGRAPHY Encounter for removal of biliary stent 08/16/2025 3:20 PM EST Health Maintenance Due Date Last Done Comments DIABETIC EYE EXAM 1960 DIABETIC FOOT EXAM 1960 ZOSTER VACCINE (1 of 2) 1998 Pneumococcal Vaccine 50+ (2 of 2 - PCV) 01/30/2018 01/30/2017 RSV Vaccine - Adults (1 - 1- dose 75+ series) 12/09/2023 INFLUENZA VACCINE 04/13/2025 07/03/2021, , 06/13/2020, Additional history exists COVID-19 Vaccine (3 - 2024-2 6 season) 2025 08/20/2021, 04/08/2021 Hepatitis B (3 of 3 - 19+ 3- dose series) 05/21/2025 03/26/2025, 12/04/2020 ANNUAL WELLNESS VISIT 06/07/2025 HEMOGLOBIN A1C 12/05/2025 06/07/2025, 11/11, 11/28/2023, Additional history exists TDAP/TD VACCINES (2 - Td or Tdap) 01/30/2027 017 COLONOSCOPY Discontinued 11/21/2020, 11/21/2020 COLORECTAL CANCER SCREENING Discontinued HEPATITIS C SCREENING Completed 06/08/2025 , 03/25/2024, 11/27/2023, Additional history exists COLOGUARD Discontinued COLON CANCER SCREENING 5 YEA R SIGMOIDOSCOPY Discontinued CT COLONOGRAPHY Discontinued FECAL OCCULT BLOOD TEST Discontinued FIT Testing (1 year) Discontinued Medical Devices Implanted Type Area Jig Filler Device Identifier Shelf Expiration Date Model / Serial / Lot Clipapplr M/ Endo Ligaclip Rot 10mm /Lg - [id number] Implanted:Qty : 1 on 06/09/2025 by Charles Guerrero MD at [facility] Implant N/A: Abdomen [employer] DIV OF J [employer] J 04/12/2030 [id number] / / [id number] Stnt Bili Wallflx Rx Rmv W/Permalume 8.5f [id number] - [id number] Implanted:Qty : 1 on 06/08/2025 by Kishore Foote MD at [facility] Stent N/A: Bile Duct Ghostery MJ 01/18/2027 [id number] / / [id number] Procedures Procedure Name Priority Date/Time Associated Diagnosis Comments RESPIRATORY PANEL PCR W/ COVID-19 (SARS-COV-2), PRIVACY COMPLIANCE MANAGER SWAB IN UTM/VTP, 2 HR TAT Routine 06/14/2025 7:13 AM EDT HEMODIALYSIS INPATIENT Routine 1:44 PM EDT POCT GLUCOSE FINGERSTICK Routine 06/11/2025 8:27 PM EDT JARED W/ COMPLETE DOPPLER, COLOR AND 3D Routine 06/11/2025 1:59 PM EDT HEPATIC FUNCTION PANEL Add-On 8:10 AM EDT MAGNESIUM Routine 06/11/2025 8:10 AM EDT CBC (NO DIFF) Routine 06/11/2025 8:10 AM EDT BASIC METABOLIC PANEL Routine 06/11/2025 8:[address] SOFT TISSUE NECK WO CONTRAST Routine 06/10/2025 10:57 PM EDT PHOSPHORUS Routine 06/10/2025 3:22 PM EDT COMPREHENSIVE METABOLIC PANEL Routine 06/10/2025 3:22 PM EDT CBC (NO DIFF) Routine 06/10/2025 3:22 PM EDT HEMODIALYSIS INPATIENT Routine 1:57 PM EDT MAGNESIUM Routine 06/09/2025 2:26 PM EDT TISSUE PATHOLOGY EXAM Routine 06/09/2025 12:00 PM EDT Cholecystitis ANESTHESIA INTUBATION Routine 06/09/2025 11:02 AM EDT FL LAPAROSCOPY SURG CHOLECYSTECTOMY 06/09/2025 10:25 AM EDT Choledocholithiasi s SCANNED - TELEMETRY 06/09/2025 7 :36 AM EDT MRSA DNA PROBE Routine 06/08/2025 7:05 PM EDT HEPATITIS PANEL, ACUTE Routine 2:52 PM EDT FL ERCP PANCREATIC AND BILIARY DUCTS Routine 06/08/2025 12:51 PM EDT ANESTHESIA INTUBATION Routine 06/08/2025 11:00 AM EDT FL ERCP DX COLLECTION SPECIMEN BRUSHING/WASHING 06/08/2025 10:46 AM EDT ERCP 06/08/2025 10:27 AM EDT ECG 12-LEAD Routine 06/08/2025 9:17 AM EDT CBC (NO DIFF) Routine 06/08/2025 8:48 AM EDT COMPREHENSIVE METABOLIC PANEL Routine 06/08/2025 8:48 AM EDT WOUND OSTOMY EVAL AND TREAT Routine 06/07/2025 6:11 PM EDT GLASS SETTER FEES FIBEROPTIC ENDO EVAL SWALLOW Routine 06/07/2025 [...] PCR Urgent 06/07/2025 8:4 5 AM EDT LACTIC ACID, PLASMA Urgent 06/07/2025 6 :03 AM EDT BLOOD CULTURE STAT 06/07/2025 6:03 AM EDT BLOOD CULTURE STAT 06/07/2025 6:01 AM EDT POCT GLUCOSE FINGERSTICK Routine 06/07/2025 5:29 AM EDT HEMOGLOBIN A1C WITH MPG Urgent 06/07/20 1:05 AM EDT TSH RFX ON ABNORMAL TO FREE T4 Urgent 06/07/2025 12:57 AM EDT MAGNESIUM STAT 06/07/2025 12:57 AM EDT CBC WITH AUTO DIFFERENTIAL STAT 06/07/2025 12:57 AM EDT COMPREHENSIVE METABOLIC PANEL Urgent 06/07/2025 12:57 AM EDT LIPID PANEL Urgent 06/07/2025 12:57 AM EDT WOUND [...] OUTSIDE HEAD Routine 06/06/2025 8:47 PM EDT from Last 3 Months Results * Respiratory Panel PCR w/COVID-19(SARS-CoV-2) ZHANE/SALAZAR/MELY/PAD/COR/GELY In-House, PRIVACY COMPLIANCE MANAGER Swab in UTM/VTM, 2 HR TAT - Swab, Nasopharynx (06/14/2025 7:13 AM EDT) [facility] ADENOVIRUS, PCR Not Detected Not Detected BIOFIRE TORCH 06/14/2025 8:15 AM EDT [facility] Coronavirus 229E Not Detected Not Detected BIOFIRE TORCH 06/14/2025 8:15 AM EDT [facility] Coronavirus HKU1 Not Detected Not Detected BIOFIRE TORCH 06/14/2025 8:15 AM EDT [facility] Coronavirus NL63 Not Detected Not Detected BIOFIRE TORCH 06/14/2025 8:15 AM EDT [facility] Coronavirus OC43 Not Detected Not Detected BIOFIRE TOR 06/14/2025 8:15 AM EDT [facility] COVID19 Not Detected Not Detected - Ref. Range BIOFIRE TOR 06/14/2025 8:15 AM EDT [facility] Human Metapneumovirus Not Detected Not Detected BIOFIRE TOR 06/14/2025 8:15 AM EDT [facility] Human Rhinovirus/Enterov irus Not Detected Not Detected BIOFIRE TOR 06/14/2025 8:15 AM EDT [facility] Influenza A PCR Not Detected Not Detected BIOFIRE TOR 06/14/2025 8:15 AM EDT [facility] Influenza B PCR Not Detected Not Detected BIOFIRE TOR 06/14/2025 8:15 AM EDT [facility] Parainfluenza Virus 1 Not Detected Not Detected BIOFIRE TORCH 06/14/2025 8:15 AM EDT [facility] Parainfluenza Virus 2 Not Detected Not Detected BIOFIRE TOR 06/14/2025 8:15 AM EDT [facility] Parainfluenza Virus 3 Not Detected Not Detected BIOFIRE TORCH 06/14/2025 8:15 AM EDT [facility] Parainfluenza Virus 4 Not Detected Not Detected BIOFIRE TORCH 06/14/2025 8:15 AM EDT [facility] RSV, PCR Not Detected Not Detected BIOFIRE TORCH 06/14/2025 8:15 AM EDT [facility] Bordetella pertussis pcr Not Detected Not Detected BIOFIRE TORCH 06/14/2025 8:15 AM EDT [facility] Bordetella parapertussis PCR Not Detected Not Detected BIOFIRE TOR 06/14/2025 8:15 AM EDT [facility] Chlamydophila pneumoniae PCR Not Detected Not Detected BIOFIRE TOR 06/14/2025 8:15 AM EDT [facility] Mycoplasma pneumo by PCR Not Detected Not Detected BIOFIRE TOR 06/14/2025 8:15 AM EDT [facility] Swab Nasopharyngeal structure / Unknown Collection / Unknown 06/14/2025 7:13 AM EDT 06/14/2025 7:13 AM EDT Narrative [facility] - 06/14/2025 8:15 AM EDT In [...] MD MICROBIOLOGY - GENERAL ORDERABLES Final Result [facility]
[address] [place] [address], * POC Glucose Once (06/11/2025 8:27 PM EDT) Only the most recent of3 resultswithin the time period is included. Glucose 84 70 - 130 mg/dL 06/11/2025 8:29 PM EDT [facility] Comment:Serial Number: [id number]: [id number] Blood 06/11/2025 8:27 PM EDT 06/11/2025 8:29 PM EDT Ivonne Ralph MD POINT OF CARE TEST ORDERABLES Final Result [facility]
[address] [place] [address], * JARED W/ COMPLETE DOPPLER, COLOR AND 3D (06/11/2025 1:59 PM EDT) Pathologist [facility] CV ECHO SHUNT ASSESSMENT PERFORMED (HIDDEN SCRIPTING) 1 Ao pk rad 42.0 cm/sec Ao max PG 24 mmHg [...] BLES Edited Result - Final * (ABNORMAL) CBC (No Diff) (06/11/2025 8:10 AM EDT) Only the most recent of3 resultswithin the time period is included. WBC 11.08(H) 3.40 - 10.80 10*3/mm3 06/11/2025 8:19 AM EDT [facility] RBC 2.75(L) 4.14 - 5.80 10*6/mm3 06/11/2025 8:19 AM EDT [facility] Hemoglobin 8.5(L) 13.0 - 17.7 g/dL 06/11/2025 8:19 AM EDT [facility] Hematocrit 27.2(L) 37.5 - 51.0 % 06/11/2025 8:19 AM EDT [facility] MCV 98.9(H) 79.0 - 97.0 fL 06/11/2025 8:19 AM EDT [facility] MCH 30.9 26.6 - 33.0 pg 06/11/2025 8:19 AM EDT [facility] MCHC 31.3(L) 31.5 - 35.7 g/dL 06/11/2025 8:19 AM EDT [facility] RDW 15.5(H) 12.3 - 15.4 % 06/11/2025 8:19 AM EDT [facility] RDW-SD 55.2(H) 37.0 - 54.0 fl 06/11/2025 8:19 AM EDT [facility] MPV 10.1 6.0 - 12.0 fL 06/11/2025 8:19 AM EDT [facility] Platelets 206 140 - 450 10*3/mm3 06/11/2025 8:19 AM EDT [facility] Blood Line / Unknown 06/11/2025 8: 10 AM EDT 06/11/2025 8:10 AM EDT us Ivonne Ralph MD LAB BLOOD ANNE-MARIE KONG Final Result [facility]
[address] [place] [address], * Magnesium (06/11/2025 8:10 AM EDT) Only the most recent of3 resultswithin the time period is included. Magnesium 2.2 1.6 - 2.4 mg/dL 06/11/2025 8:45 AM EDT [facility] Blood Line / Unknown 06/11/2025 8: 10 AM EDT 06/11/2025 8:10 AM EDT Ivonne Ralph MD LAB BLOOD ORDGerman KONG Final Result [facility]
[address] [place] [address], * (ABNORMAL) Hepatic Function Panel (06/11/2025 8:10 AM EDT) Pathologist [facility] Total Protein 6.1 6.0 - 8.5 g/dL 06/11/2025 9:27 AM EDT [facility] Albumin 3.1(L) 3.5 - 5.2 g/dL 06/11/2025 9:27 AM EDT [facility] ALT (SGPT) 455(H) 1 - 41 U/L 06/11/2025 9:27 AM EDT [facility] AST (SGOT) 168(H) 1 - 40 U/L 06/11/2025 9:27 AM EDT [facility] Alkaline Phosphatase 112 39 - 117 U/L 06/11/2025 9:27 AM EDT [facility] Total Bilirubin 0.4 0.0 - 1.2 mg/dL 06/11/2025 9:27 AM EDT [facility] Bilirubin, Direct 0.2 0.0 - 0.3 mg/dL 06/11/2025 9:27 AM EDT [facility] Bilirubin, Indirect 0.2 mg/dL 06/11/2025 9:27 AM EDT [facility] Blood Line / Unknown 06/11/2025 8: 10 AM EDT 06/11/2025 8:10 AM EDT us Ivonne Ralph MD LAB BLOOD ANNE-MARIE KONG Final Result [facility]
[address] [place] [address], * (ABNORMAL) Basic Metabolic Panel (06/11/2025 8:10 AM EDT) Pathologist [facility] Glucose 98 65 - 99 mg/dL 06/11/2025 8:45 AM EDT [facility] BUN 66.9(H) 8.0 - 23.0 mg/dL 06/11/2025 8:45 AM EDT [facility] Creatinine 7.96(H) 0.76 - 1.27 mg/dL 06/11/2025 8:45 AM EDT [facility] Sodium 135(L) 136 - 145 mmol/L 06/11/2025 8:45 AM EDT [facility] Potassium 5.5(H) 3.5 - 5.2 mmol/L 06/11/2025 8:45 AM EDT [facility] Chloride 95(L) 98 - 107 mmol/L 06/11/2025 8:45 AM EDT [facility] CO2 22.9 22.0 - 29.0 mmol/L 06/11/2025 8:45 AM EDT [facility] Calcium 8.2(L) 8.6 - 10.5 mg/dL 06/11/2025 8:45 AM EDT [facility] BUN/Creatinine Ratio 8.4 7.0 - 25.0 06/11/2025 8:45 AM EDT [facility] Anion Gap 17.1(H) 5.0 - 15.0 mmol/L 06/11/2025 8:45 AM EDT [facility] eGFR 6.5(L) >60.0 mL/min/1.7 3 06/11/2025 8:45 AM EDT [facility] Blood Line / Unknown 06/11/2025 8: 10 AM EDT 06/11/2025 8:10 AM EDT Narrative [facility] - 06/11/2025 8:45 AM EDT GFR [...] MD LAB BLOOD ORDGerman KONG Final Result [facility]
[address] [place] [address], * CT Soft Tissue Neck Without Contrast [...] MD 06/11/2025 7:44 AM EDT Workstation ID: [id number] Narrative 06/11/2025 7:[address] SOFT [...] MD 06/11/2025 7:44 AM EDT Workstation ID: [id number] Ivonne Ralph MD IMG CT ORDERAB LES Final Result * (ABNORMAL) Phosphorus (06/10/2025 3:22 PM EDT) Pathologist [facility] Phosphorus 8.9(H) 2.5 - 4.5 mg/dL 06/10/2025 3:57 PM EDT [facility] Blood Venipuncture / Unknown 06/10/2025 3:22 PM EDT 06/10/2025 3:28 PM EDT Rehan Lincoln MD LAB BLOOD ORDERABLES Final R esult [facility]
[address] [place] [address], [place] [phone] * (ABNORMAL) Comprehensive Metabolic Panel (06/10/2025 3:22 PM EDT) Only the most recent of3 resultswithin the time period is included. Glucose 120(H) 65 - 99 mg/dL 06/10/2025 3:57 PM T [facility] BUN 60.9(H) 8.0 - 23.0 mg/dL 06/10/2025 3:57 PM T [facility] Creatinine 7.36(H) 0.76 - 1.27 mg/dL 06/10/2025 3:57 PM [facility] Sodium 134(L) 136 - 145 mmol/L 06/10/2025 3:57 PM T [facility] Potassium 5.3(H) 3.5 - 5.2 mmol/L 06/10/2025 3:57 PM [facility] Chloride 94(L) 98 - 107 mmol/L 06/10/2025 3:57 PM [facility] CO2 21.2(L) 22.0 - 29.0 mmol/L 06/10/2025 3:57 PM [facility] Calcium 8.7 8.6 - 10.5 mg/dL 06/10/2025 3:57 PM [facility] Total Protein 5.8(L) 6.0 - 8.5 g/dL 06/10/2025 3:57 PM T [facility] Albumin 3.2(L) 3.5 - 5.2 g/dL 06/10/2025 3:57 PM [facility] ALT (SGPT) 558(H) 1 - 41 U/L 06/10/2025 3:57 PM [facility] AST (SGOT) 226(H) 1 - 40 U/L 06/10/2025 3:57 PM T [facility] Alkaline Phosphatase 118(H) 39 - 117 U/L 06/10/2025 3:57 PM [facility] Total Bilirubin 0.4 0.0 - 1.2 mg/dL 06/10/2025 3:57 PM [facility] Globulin 2.6 gm/dL 06/10/2025 3:57 PM [facility] Comment:Calculated Result A/G Ratio 1.2 g/dL 06/10/2025 3:57 PM EDT [facility] BUN/Creatinine Ratio 8.3 7.0 - 25.0 06/10/2025 3:57 PM EDT [facility] Anion Gap 18.8(H) 5.0 - 15.0 mmol/L 06/10/2025 3:57 PM EDT [facility] eGFR 7.1(L) >60.0 mL/min/1.7 3 06/10/2025 3:57 PM EDT [facility] Blood Venipuncture / Unknown 06/10/2025 3:22 PM EDT 06/10/2025 3:28 PM EDT Narrative [facility] - 06/10/2025 3:57 PM EDT GFR [...] Guerrero MD LAB BLOOD ORDERABLES Final Result [facility]
[address] [place] [address], * Tissue Pathology Exam (06/09/2025 12:00 PM EDT) Case Report Surgical Pathology Report Case: [id number] Authorizing Provider: Charles Guerrero MD Collected: 06/09/2025 12:00 PM Ordering Location: [facility] Received: 06/11/2025 06:27 AM OR Pathologist: Bryanna Morales MD Specimen: Gallbladder 06/12/2025 10:36 AM EDT [facility] Clinical Information Cholecystitis Choledocholithiasi s 06/12/2025 10:36 AM EDT [facility] Final Diagnosis Gallbladder, cholecystectomy: Acute and chronic cholecystitis and cholelithiasis 1 benign lymph node 06/12/2025 10:36 AM EDT [facility] at 1036 EDT Gross Description 1. [...] lesions or masses are grossly identified, and medical service representative sections from the fundus, body, and neck to include the cystic duct margin (en face) and possible lymph node (intact) are submitted in cassette 1A. AKG 06/12/2025 10:36 AM EDT [facility] Microscopic Description The slides are reviewed and demonstrate histopathologic features supporting the above rendered diagnosis. 06/12/2025 10:36 AM EDT [facility] Tissue Gallbladder structure / Unknown 06/09/2025 12:00 PM EDT 06/11/2025 6:27 AM EDT Charles Guerrero MD PATHOLOGY/CYTOLOGY ORDERAB LES Final Result [facility]
[address] [place] [address], * Airway (06/09/2025 11:02 AM EDT) Narrative Maria Esther Espinoza CRNA - 06/09/2025 11:02 AM EDT Maria Esther Espinoza CRNA 06/09/2025 11:02 AM Airway Date/Time: 06/09/2025 10:55 AM us Matt Eugene MD ANESTHESIA ORDERABLES Final Res ult * Telemetry Scan (06/09/2025 7:36 AM EDT) [facility] ECG ORDERABLES Final Result * (ABNORMAL) MRSA Screen, PCR (Inpatient) - Swab, Nares (06/08/2025 7:05 PM EDT) Pathologist [facility] MRSA PCR Positive(A ) Negative [employer] 06/08/2025 9:52 PM EDT [facility] Swab Structure of anterior naris / Unknown Collection / Unknown 06/08/2025 7:05 PM EDT 06/08/2025 7:25 PM EDT Narrative [facility] - 06/08/2025 9:52 PM EDT The negative predictive value of this diagnostic test is high and should only be used to consider de-escalating anti-MRSA therapy. A positive result may indicate colonization with MRSA and must be correlated clinically. Ivonne Ralph MD MICROBIOLOGY - GENERAL ORDERABLES Final Result [facility]
[address] [place] [address], * Hepatitis Panel, Acute (06/08/2025 2:52 PM EDT) [facility] Hepatitis B Surface Ag Non-Reacti ve Non-Reacti ve 06/08/2025 3:43 PM EDT [facility] Hep A IgM Non-Reacti ve Non-Reacti ve 06/08/2025 3:43 PM EDT [facility] Hep B C IgM Non-Reacti ve Non-Reacti ve 06/08/2025 3:43 PM EDT [facility] Hepatitis C Ab Non-Reacti ve Non-Reacti ve 06/08/2025 3:43 PM EDT [facility] Blood Line / Unknown 06/08/2025 2: 52 PM EDT 06/08/2025 3:00 PM EDT Narrative [facility] - 06/08/2025 3:43 PM EDT Results may be falsely decreased if patient taking Biotin. Ivonne Ralph MD LAB BLOOD ORDE DILAN Final Result [facility]
[address] [place] [address], * [place] ERCP pancreatic and biliary ducts (06/08/2025 12:51 PM EDT) Anatomical Region Laterality Modality Body Radio Fluoroscop y 06/08/2025 3:31 PM EDT Impressions 06/08/2025 3:48 PM EDT Impression: Fluoroscopy demonstrates filling of the bile ducts. Please see procedure report for full findings. Electronically Signed: Migue Mcfarlane MD 06/08/2025 3:48 PM EDT Workstation ID: [id number] Narrative 06/08/2025 3:48 PM EDT FL ERCP PANCREATIC AND BILIARY DUCTS Date of Exam: 06/08/2025 10:49 AM EDT Indication: ENDOSCOPIC RETROGRADE CHOLANGIOPANCREATOGRAPHY. Comparison: None available. Technique: A series of radiographic digital spot films were obtained in conjunction with an endoscopic catheterization of the biliary and pancreatic ductal system, performed by the traffic monitor specialist. Fluoroscopic Time: 5 minutes 57 seconds Number [...] biliary andpancreatic ductal system, performed by the traffic monitor specialist. Fluoroscopic Time: 5 minutes 57 seconds Number of Images: 10 Findings: Fluoroscopy demonstrates filling of the bile ducts. IMPRESSION: Impression: Fluoroscopy demonstrates filling of the bile ducts. Please see procedurereport for full findings. Electronically Signed: Migue Mcfarlane MD 06/08/2025 3:48 PM EDT Workstation ID: [id number] Kishore Foote MD IMG FLUOROSCOPY ORDERABLES Final Result * BH AN ETT AIRWAY (06/08/2025 11:00 AM EDT) Narrative Jonathan Burns CRNA - 06/08/2025 11:00 AM EDT Jonathan Burns CRNA 06/08/2025 11:00 AM Airway Reason: elective Date/Time: 06/08/2025 10:51 AM Airway not difficult General Information and Staff Patient location during procedure: [place] DERRICK ENGINEER/CAA: Jonathan Burns CRNA Indications and Patient [...] bilaterally with symmetric chest rise and fall Tom Dover MD ANESTHESIA ORDERABLES Final Res ult * ERCP (06/08/2025 10:27 AM EDT) Kishore [...] MD ECG ORDERABLES Final Result ECG * GLASS SETTER FEES - Fiberoptic Endo Eval Swallow (06/07/2025 4:59 PM EDT) Narrative SYSTEMGENERATED, DOCUMENTATION - 06/07/2025 4:59 PM EDT This procedure was auto-finalized with no dictation required. Krystal Orozco MD GLASS SETTER ORDERABLES Final Result * DUPLEX CAROTID BILATERAL [...] AND COLOR FLOW (06/07/2025 3:44 PM EDT) Pathologist [facility] EF(MOD-bp) 53.5 % LVIDd 5.7 cm LVIDs [...] % EF(MOD-sp4) 53.5 % MV E max rad 133.0 cm/sec MV A max rad 105.0 cm/sec MV dec time 0.17 sec MV E/A 1.27 IVRT 113.0 ms LA ESV Index (BP) 41.8 ml/m2 Med Peak E' Rad 6.5 cm/sec Lat Peak E' Rad 8.6 cm/sec TR max rad 254.0 cm/sec Avg E/e' ratio 17.62 SV(LVOT) 109.5 ml RV Base 3.5 cm RV Mid 2.5 cm RV Length 9.3 cm TAPSE (>1.6) 2.8 cm RV S' 12.1 cm/sec LA dimension (2D) 4.1 cm LV V1 max 113.0 cm/sec LV V1 max PG 5.1 mmHg LV V1 mean PG 3.0 mmHg LV V1 VTI 28.8 cm Ao pk rad 308.8 cm/sec Ao max PG 38.2 mmHg Ao mean PG 21.0 mmHg Ao V2 VTI 78.8 cm KIERAN(I,D) 1.39 cm2 Dimensionless Index 0.37 (DI) MV max PG 7.5 mmHg MV mean PG 4.0 mmHg MV V2 VTI 50.4 cm MV P1/2t 92.6 msec MVA(P1/2t) 2.38 cm2 MVA(VTI) 2.17 cm2 MV dec slope 405.0 cm/sec2 MR max rad 429.0 cm/sec MR max PG 73.6 mmHg [...] of agitated saline was administered. Edita Guzman TEXTILE MACHINERY SALES REPRESENTATIVE CV ECHO ORDERABLES Final Result * MRI [...] MD 06/07/2025 10:26 AM EDT Workstation ID: [id number] Narrative 06/07/2025 10:26 AM EDT MRI ABDOMEN [...] hydronephrosis. No dilated bowel loops within the ssofu-ey-aina. No free fluid in the abdomen. No [...] No hydronephrosis. No dilated bowel loopswithin the melwl-zz-mgwg. No free fluid in the abdomen. No pathologicallyenlarged lymph nodes. No abdominal aortic aneurysm. Atherosclerosis. Nobody wall abnormality. Multilevel spondylosis. No acute or suspicious osseous abnormalities evident on thisnoncontrast exam. IMPRESSION: Impression: Choledocholithiasis with a 7 mm stone in the lower common bile duct. Intraand extrahepatic biliary ductal dilatation with common bile duct ulxxacnum23 mm. Correlate with serum bilirubin and consider ERCP. Cholelithiasis without evidence of acute cholecystitis. Left lower lobe consolidation with trace left pleural effusion, suggestiveof pneumonia. Chronic/ancillary findings as above. Electronically Signed: Preet Crowley MD 06/07/2025 10:26 AM EDT Workstation ID: [id number] Rolan Muro MD IM MRI ORDERABLES Final [...] MD 06/07/2025 10:22 AM EDT Workstation ID: [id number] Narrative 06/07/2025 10:22 AM EDT MRI BRAIN [...] MD 06/07/2025 10:22 AM EDT Workstation ID: [id number] Edita Guzman TEXTILE MACHINERY SALES REPRESENTATIVE [place] MRI ORDERABLES Final Result * [facility] PCR - Swab, Axilla Right, Axilla Left and Groin (06/07/2025 8:45 AM EDT) KIMANI AURIS PCR ([facility]) Not Detected 06/08/2025 5:14 PM EDT [facility] Swab Entire skin of axilla / Unknown Collection / Unknown 06/07/2025 8:45 AM EDT 06/07/2025 8:52 AM EDT us Krystal Orozco MD MICROBIOLOGY - GENERAL ORDERA BLES Final Result Performing Organization Address City/[facility]/ZIP Co de Phone Number [facility] [address] [place] [address], * Blood Culture - Blood, Wrist, Left (06/07/2025 6:03 AM EDT) Only the most recent of2 resultswithin the time period is included. Blood Culture No growth at 5 days 06/12/2025 7:30 AM EDT [facility] Blood Structure of left wrist region / Unknown Venipuncture / Unknown 06/07/2025 6:03 AM EDT 06/07/2025 7:28 AM EDT Narrative [facility] - 06/12/2025 7:30 AM EDT Aerobic Bottle Only Less than seven (7) mL's of blood was collected. Insufficient quantity may yield false negative results. Rolan Muro MD MICROBIOLOGY - GENERAL ORDER NOEL Final Result Performing Organization Address City/[facility] Co de Phone Number [facility]
[address] [place] [address], * Lactic Acid, Plasma (06/07/2025 6:03 AM EDT) Lactate 0.9 0.5 - 2.0 mmol/L 06/07/2025 6:43 AM EDT [facility] Comment:Falsely depressed re sults may occur on samples drawn from patients receiving N-Acetylcysteine (NAC) or Metamizole. Blood Venipuncture / Unknown 06/07/2025 6:03 AM EDT 06/07/2025 6:07 AM EDT us Rolan Muro MD LAB BLOOD ORDERABLES Final R esult [facility]
[address] [place] [address], [place] [phone] * Hemoglobin A1C With EMG (06/07/2025 1:05 [...] - 06/09/2025 12:08 AM EDT Performed at: [facility] [id number] Network Applications Specialist: Franklyn Rodriguez PhD, Phone: [phone] Edita Guzman APRN LAB BLOOD ORDERABLE S Final Result Performing Organization Address [facility] Co de Phone Number [facility] [address] [place] [address], [place] [phone] * TSH Rfx On Abnormal To Free T4 (06/07/2025 12:57 AM EDT) Pathologist [facility] TSH 0.534 0.270 - 4.200 uIU/mL 06/07/2025 1:35 AM EDT [facility] Blood Venipuncture / Unknown 06/07/2025 12:57 AM EDT 06/07/2025 1:01 AM EDT Rolan Muro MD LAB BLOOD ORDERABLES Final R esult [facility]
[address] [place] [address], * (ABNORMAL) CBC Auto Differential (06/07/2025 12:57 AM EDT) WBC 18.26(H) 3.40 - 10.80 10*3/mm3 06/07/2025 1:04 AM EDT [facility] RBC 2.88(L) 4.14 - 5.80 10*6/mm3 06/07/2025 1:04 AM EDT [facility] Hemoglobin 9.0(L) 13.0 - 17.7 g/dL 06/07/2025 1:04 AM EDT [facility] Hematocrit 28.1(L) 37.5 - 51.0 % 06/07/2025 1:04 AM EDT [facility] MCV 97.6(H) 79.0 - 97.0 fL 06/07/2025 1:04 AM EDT [facility] MCH 31.3 26.6 - 33.0 pg 06/07/2025 1:04 AM EDT [facility] MCHC 32.0 31.5 - 35.7 g/dL 06/07/2025 1:04 AM EDT [facility] RDW 15.7(H) 12.3 - 15.4 % 06/07/2025 1:04 AM EDT [facility] RDW-SD 56.1(H) 37.0 - 54.0 fl 06/07/2025 1:04 AM EDT [facility] MPV 12.4(H) 6.0 - 12.0 fL 06/07/2025 1:04 AM EDT [facility] Platelets 120(L) 140 - 450 10*3/mm3 06/07/2025 1:04 AM EDT [facility] Neutrophil % 84.7(H) 42.7 - 76.0 % 06/07/2025 1:04 AM EDT [facility] Lymphocyte % 2.8(L) 19.6 - 45.3 % 06/07/2025 1:04 AM EDT [facility] Monocyte % 7.5 5.0 - 12.0 % 06/07/2025 1:04 AM EDT [facility] Eosinophil % 0.0(L) 0.3 - 6.2 % 06/07/2025 1:04 AM EDT [facility] Basophil % 0.1 0.0 - 1.5 % 06/07/2025 1:04 AM EDT [facility] Immature Grans % 4.9(H) 0.0 - 0.5 % 06/07/2025 1:04 AM EDT [facility] Neutrophils, Absolute 15.45(H) 1.70 - 7.00 10*3/mm3 06/07/2025 1:04 AM EDT [facility] Lymphocytes, Absolute 0.52(L) 0.70 - 3.10 10*3/mm3 06/07/2025 1:04 AM EDT [facility] Monocytes, Absolute 1.37(H) 0.10 - 0.90 10*3/mm3 06/07/2025 1:04 AM EDT [facility] Eosinophils, Absolute 0.00 0.00 - 0.40 10*3/mm3 06/07/2025 1:04 AM EDT [facility] Basophils, Absolute 0.02 0.00 - 0.20 10*3/mm3 06/07/2025 1:04 AM EDT [facility] Immature Grans, Absolute 0.90(H) 0.00 - 0.05 10*3/mm3 06/07/2025 1:04 AM EDT [facility] nRBC 0.0 0.0 - 0.2 /100 WBC 06/07/2025 1:04 AM T [facility] Blood Venipuncture / Unknown 06/07/2025 12:57 AM EDT 06/07/2025 1:00 AM EDT us Rolan Muro MD LAB BLOOD ORDERABLES Final R esult [facility]
[address] [place] [address], * (ABNORMAL) Lipid Panel (06/07/2025 12:57 AM EDT) Total Cholesterol 62 0 - 200 mg/dL 06/07/2025 1:35 AM EDT [facility] Triglycerides 58 0 - 150 mg/dL 06/07/2025 1:35 AM EDT [facility] HDL Cholesterol 33(L) 40 - 60 mg/dL 06/07/2025 1:35 AM EDT [facility] LDL Cholesterol 15 0 - 100 mg/dL 06/07/2025 1:35 AM EDT [facility] VLDL Cholesterol 14 5 - 40 mg/dL 06/07/2025 1:35 AM EDT [facility] LDL/HDL Ratio 0.53 06/07/2025 1:35 AM EDT [facility] Blood Venipuncture / Unknown 06/07/2025 12:57 AM EDT 06/07/2025 1:01 AM EDT Narrative [facility] - 06/07/2025 1:35 AM EDT Cholesterol [...] calculated using the NIH LDL-C calculation. Edita Jose Elias Thomas TEXTILE MACHINERY SALES REPRESENTATIVE LAB BLOOD ORDERABLE S Final Result [facility]
[address] [place] [address], * CT Outside Abd/Pelvis (06/06/2025 8:47 PM EDT) Narrative SYSTEMGENERATED, DOCUMENTATION - 06/06/2025 8:47 PM EDT This procedure was auto-finalized with no dictation required. us Radiant Outside Films IMG CT ORDERABLES Final Re sult * CT Outside Films (06/06/2025 8:47 PM EDT) Only the most recent of2 resultswithin the time period is included. Narrative SYSTEMGENERATED, DOCUMENTATION - 06/06/2025 8:47 PM [...] Films IMG CT ORDERABLES Final Re sult from Last 3 Months Additional Health Concerns Infection Onset Date Last Indicated MRSA 06/08/2025 06/08/2025 Insurance MEDICARE A & B [place]ID [place] Advance Directives Documents on File Type Date Recorded Patient Automatic Buffing Wheel Former Expl anation PATIENT ADVANCE DIRECTIVES - SCAN 06/15/2025 3:18 PM CODE STATUS DNR, [place] [facility], 12/06/2024 PATIENT ADVANCE DIRECTIVES - SCAN 06/14/2025 10:11 AM CODE STATUS DNR, [facility], 06/12/2025 * No CPR (Do Not Attempt to Resuscitate) (Latest Code Status on File) Date Activated Date Inactivated Comments 06/11/2025 2:32 PM 06/14/2025 5:38 PM Question Answer Comments Code Status (Patient has no pulse and is not breathing): No CPR (Do Not Attempt to Resuscitate) Medical Interventions (Patie nt has pulse or is breathing): Limited Support Medical Intervention Limits: No intubation (DNI) Level Of Support Discussed With: Patient * CPR (Attempt to Resuscitate) Date Activated Date Inactivated Comments 06/09/2025 12:32 PM 06/11/2025 2:32 PM Question Answer Comments Code Status (Patient has no pulse and is not breathing): CPR (Attempt to Resuscitate) Medical Interventions (Patie nt has pulse or is breathing): Full Level Of Support Discussed With: Patient * No CPR (Do Not Attempt to Resuscitate) Date Activated Date Inactivated Comments 06/07/2025 11:37 AM 06/09/2025 12:32 PM Question Answer Comments Code Status (Patient has no pulse and is not breathing): No CPR (Do Not Attempt to Resuscitate) Medical Interventions (Patie nt has pulse or is breathing): Limited Support Medical Intervention Limits: No intubation (DNI) Level Of Support Discussed With: PatientNext of Kin (If No Surrogate) * CPR (Attempt to Resuscitate) Date Activated Date Inactivated Comments 06/06/2025 11:50 PM 06/07/2025 11:37 AM Question Answer Comments Code Status (Patient has no pulse and is not breathing): CPR (Attempt to Resuscitate) Medical Interventions (Patie nt has pulse or is breathing): Full Support Level Of Support Discussed With: Patient Care Teams Slide Maker Relationship Specialty Start Date End Date Jeffrey Sun MD [address] [facility] [address] [facility] [address] [place] [address] PCP - General Family Medicine 06/06/25
--- OUTSIDE RECORDS SUMMARY | 2025-07-17 07:56 | XMS_ITS | Encounter Summary ---
Author Organization [facility] Address [address] [place] [address] Care Team Providers Care Application Development Intern Name Role Phone Jeffrey Sun MD Primary Care Provider + [phone] Encounter Details Date Type Department Care Team (Latest Contact Info) Description 06/07/2025 Travel Social History Tobacco Use Types Packs/Day Years Used Date Smoking Tobacco: Never Smokeless Tobacco: Never Alcohol Use Standard Drinks/Week Comments Never 0 (1 standard drink = 0.6 oz pur e alcohol) [facility] Utilities Answer Date Recorded In the past 12 months has Lighting by LED, gas, oil, or water Ling[employer]e threatened to shut off services in your [...] GED or equivalent No 06/07/2025 Preferred Language Lao 06/07/2025 Sex and Gender Information Value Date Recorded Sex Assigned at Not on file Legal Sex Male 1:16 PM EDT Gender Identity Not on file Sexual Orientation Not on file documented as of this encounter Functional Status * Question Answer Date of Assessment Author 1. Wish to be (Past 1 Month) No 025 6:16 AM EDT Linda Schafer, RN 2. Non-Specific Active Suici dawit Thoughts (Past 1 Month) No 06/07/2025 6:16 AM EDT Alaina Schafer, RN * Calculated C-SSRS Risk Score (Lifetime/Recent) Answer Date of Assessment Author No Risk Indicated 06/07/2025 6:16 AM EDT Linda Schafer RN * Humble Suicide Severity Rating Scale (Screener/Recent Self-Report) Question Answer Date of Assessment Author 6. Suicidal Behavior (Lifetime) No 6:16 AM EDT Linda Schafer RN documented as of this encounter Plan of Treatment Upcoming Encounters Date Type Department Care Team (Late st Contact Info) Description 5 12:30 PM EST Pre-Admission Testing [facility] PREADMISSION T [address] [place] [address] 5 3:20 PM EST Hospital Encounter [facility] ENDO SUITES [address] [place] [phone] Arnel Bell MD [address] [facility] [address] [place] [address] 5 3:20 PM EST - 5 4:02 PM EST Surgery [facility] ENDO SUITES [address] [place] [address] Arnel Bell MD [address] [facility] [address] [place], [place] [id number] ENDOSCOPIC RETROGRADE CHOLANGIOPANCREATOGRAPHY [51738 (CPT )] Scheduled Procedures Name Priority Associated Diagnoses Date/Ti oh ENDOSCOPIC RETROGRADE CHOLANGIOPANCREATOGRAPHY Encounter for removal of biliary stent 08/16/2025 3:20 PM EST documented as of this encounter Visit Diagnoses Not on filedocumented in this encounter Additional Health Concerns Infection Onset Date Last Indicated Resolved Time Nettie Auris (rule out) 06/07/2025 06/07/2025 8:51 AM EDT documented as of this encounter Care Teams Application Development Intern Relationship Specialty Start Date End Date Jeffrey Sun MD [address] [facility] [address] [place] [address] PCP - General Family Medicine 06/06/25 documented as of this encounter
--- OUTSIDE RECORDS SUMMARY | 2025-07-17 07:56 | XMS_ITS | Encounter Summary ---
Author Organization [facility] Address [address] [place] [address] Care Team Providers Care Screed Operator Name Role Phone Jeffrey Sun MD Primary Care Provider + [phone] Encounter Details Date Type Department Care Team (Late st Contact Info) Description 06/28/2025 Prep for Surgery [facility] ONLY [address] [place] [address] Arnel Bell MD [address] [facility] [address] [place], [place] [id number] Encounter for removal of biliary stent (Primary Dx) Social History Tobacco Use Types Packs/Day Years Used Date Smoking Tobacco: Never Smokeless Tobacco: Never Alcohol Use Standard Drinks/Week Comments Never 0 (1 standard drink = 0.6 oz pur e alcohol) [facility] Utilities Answer Date Recorded In the past 12 months has [employer] [place], gas, oil, or water company threatened to [...] GED or equivalent No 06/07/2025 Preferred Language Zambian 06/07/2025 Sex and Gender Information Value Date Recorded Sex Assigned at Not on file Legal Sex Male 1:16 PM EDT Gender Identity Not on file Sexual Orientation Not on file documented as of this encounter Plan of Treatment Upcoming Encounters Date Type Department Care Team (Late st Contact Info) Description 12/02/202 5 12:30 PM EST Pre-Admission Testing [facility] PREADMISS[facility] T [address] [place] [address] 5 3:20 PM EST Hospital Encounter [facility] [address] [place] [address] Arnel Bell MD [address] [facility] [place] [address] 5 3:20 PM EST - 5 4:02 PM EST Surgery [facility] [address] [place] [id number] Arnel Bell MD [address] [facility] [place] [address] ENDOSCOPIC RETROGRADE CHOLANGIOPANCREATOGRAPHY [82511 (CPT )] Scheduled Procedures Name Priority Associated Diagnoses Date/Ti sc ENDOSCOPIC RETROGRADE CHOLANGIOPANCREATOGRAPHY Encounter for removal of biliary stent 08/16/2025 3:20 PM EST documented as of this encounter Visit Diagnoses Diagnosis Encounter for removal of biliary stent- Primary Encounter for removal of biliary stent- Primary Encounter for removal of biliary stent documented in this encounter Additional Health Concerns Infection Onset Date Last Indicated Resolved Time MRSA 06/08/2025 06/08/2025 documented as of this encounter Care Teams Screed Operator Relationship Specialty Start Date End Date Jeffrey Sun MD [address] [facility] [address] [place] [address] PCP - General Family Medicine 06/06/25 documented as of this encounter
--- OUTSIDE RECORDS SUMMARY | 2025-07-17 07:56 | XMS_ITS ---
Author Organization [facility] Care Team Providers Care Dolly Operator Name Role Phone SHARON PRASAD Unavailable Unavailable Leonora Ward Unavailable Unavailab le Allergies and adverse reactions No Known Allergies Care Team Name Role Address Phone Organization Dates SHARON PRASAD PCP [address], [place], [address], [facility] (Office): : [facility] 01/30/2021 - 05/14/2021 Leonora Ward [address], [place], [address], [facility] (Office): : : [facility] 01/30/2021 - 05/14/2021 Immunizations Immunization [...] CVX created date: 12/13/2020 consent date: 12/13/2020 Giveit[employer] (J[employer]J) COVID-19 Vaccine completed SARS-COV-2 (COVID-19) vaccine, vector non-replicating, recombinant spike protein-Ad26, preservative free, 0.5 mL lotNumber: [id number] expiry: 05/19/2021 Mfg: VANESSANSEN Given 0.5 ml Left Deltoid intramuscularly 212 CVX created date: 04/08/2021 consent date: 04/08/2021 administere d date: 04/08/2021 Mental Status Section Date Assessment Total Score Description 05/14/2021 BIMS 15 cognitively int act CAM 0 No delirium ind icated PHQ-9 00 03/18/2021 BIMS 13 cognitively int act PHQ-9 00 Insurance Providers Problems Problem # Description Date of onset Resolved Date Code CodeSystem Concern Status 1 DIFFICULTY IN WALKING, NOT ELSEWHERE CLASSIFIED [address] active 2 MUSCLE WEAKNESS (GENERALIZED) [address] active 3 NEED FOR ASSISTANCE WITH PERSONAL CARE [id number] active 4 OTHER LACK OF COORDINATION [address] active 5 CHRONIC OBSTRUCTIVE PULMONARY DISEASE, UNSPECIFIED [address] active 6 ENCEPHALOPATHY, UNSPECIFIED [address] active 7 GASTRO-ESOPHAGEAL REFLUX DISEASE WITHOUT ESOPHAGITIS [address] active 8 INSOMNIA, UNSPECIFIED [address] active 9 PNEUMONIA, UNSPECIFIED ORGANISM [address] active 10 MUSCLE WEAKNESS (GENERALIZED) 021 01/20/[address] completed 11 ACUTE RESPIRATORY FAILURE WITH HYPOXIA [address] active 12 ANEMIA, UNSPECIFIED [address] active 13 ATHEROSCLEROTIC HEART DISEASE OF [place] CORONARY ARTERY WITHOUT ANGINA PECTORIS [address] active 14 CHRONIC KIDNEY DISEASE, STAGE 4 (SEVERE) [address] active 15 COVID-19 021 01/20/[address] completed 16 DIFFICULTY IN WALKING, NOT ELSEWHERE CLASSIFIED 021 01/20/[address] completed 17 DYSPHAGIA, OROPHARYNGEAL PHASE [address] active 18 ESSENTIAL (PRIMARY) HYPERTENSION [address] active 19 HYPERLIPIDEMIA, UNSPECIFIED [address] active 20 NEED FOR ASSISTANCE WITH PERSONAL CARE 021 01/20/[address] completed 21 OBSTRUCTIVE SLEEP APNEA (ADULT) (PEDIATRIC) [address] active 22 OTHER LACK OF COORDINATION 021 01/20/[address] completed 23 PERSONAL HISTORY OF COVID-[address] active 24 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[place], STAGE 4 [address] active 25 TYPE 2 DIABETES MELLITUS WITHOUT COMPLICATIONS [address] active 26 UNSPECIFIED ATRIAL FIBRILLATION [address] active 27 UNSPECIFIED PROTEIN-CALORIE MALNUTRITION [address] active Reason for Referral No Reasons for Referral Entered Social History Social History Observation Description Start Date End Date Code Code System Current Smoking Status Tobacco smoking consumption unknown 897385381 SNOMED CT Sex Assigned At Male 1950 27234-4 [facility] Gender Identity Sexual Orientation Vital Signs Code Code System Vitals Name Values and Units Timing Information 78830-5 [facility] O2 % BldC Oximetry Value=98.0 Units= % 05/14/2021 9279-1 LOINC Respiratory Rate Value=18.0 Units=/m in 05/06/2021 8462-4 LOINC Blood Pressure-Diastolic Value=71 Un its=mmHg 05/06/2021 8480-6 LOINC Blood Pressure-Systolic Wcwig=339 Un its=mmHg 05/06/2021 8310-5 LOINC Body Temperature Value=98.1 Units= F 05/06/2021 8867-4 LOINC Heart rate Value=70.0 Units=/min 90089-3 INC Pain Level Value=0.0 04/30/2021 30655-1 LOINC Weight Hmaji=948.5 Units=Lbs 06/2021 2339-0 LOINC Blood Sugar Lpugq=023.0 Units=mg/dL 02/13/2021 8302-2 LOINC Height Value=76.0 Units=Inches 01/30/2021
--- OUTSIDE RECORDS SUMMARY | 2025-07-17 07:56 | XMS_ITS | Encounter Summary ---
Author Organization [facility] Address [address] [place] [address] Care Team Providers Care Director Furniture Name Role Phone Jeffrey Sun MD Primary Care Provider + [phone] Encounter Details Date Type Department Care Team (Latest Contact Info) Description 06/06/2025 Travel Social History Tobacco Use Types Packs/Day Years Used Date Smoking Tobacco: Never Assessed [facility] Utilities Answer Date Recorded In the past 12 months has th e [employer], gas, oil, or water [employer] threatened to shut off services in your [...] GED or equivalent No 06/07/2025 Preferred Language Tunisian 06/07/2025 Sex and Gender Information Value Date Recorded Sex Assigned at Not on file Legal Sex Male 1:16 PM EDT Gender Identity Not on file Sexual Orientation Not on file documented as of this encounter Plan of Treatment Upcoming Encounters Date Type Department Care Team (Late st Contact Info) Description 5 12:30 PM EST Pre-Admission Testing [facility] PREADMISSION T [address] [place] [address] 5 3:20 PM EST Hospital Encounter [facility] ENDO SUITES [address] [place] [address] Arnel Bell MD [address] [facility] [address] [place] [address] 5 3:20 PM EST - 5 4:02 PM EST Surgery [facility] ENDO [facility]ES [address] [place] [address] Arnel Bell MD [address] [facility] [address] [place] [address] ENDOSCOPIC RETROGRADE CHOLANGIOPANCREATOGRAPHY [11992 (CPT )] Scheduled Procedures Name Priority Associated Diagnoses Date/Ti ia ENDOSCOPIC RETROGRADE CHOLANGIOPANCREATOGRAPHY Encounter for removal of biliary stent 08/16/2025 3:20 PM EST documented as of this encounter Visit Diagnoses Not on filedocumented in this encounter Care Teams Director Furniture Relationship Specialty Start Date End Date Jeffrey Sun MD [address] [facility] [address] [facility] [address] [place] [address] PCP - General Family Medicine 06/06/25 documented as of this encounter
--- OUTSIDE RECORDS SUMMARY | 2025-07-17 07:56 | XMS_ITS | Patient Health Record ---
[facility] Address [address] [place] [id number] Care Team Providers Care Mitten Sewer Name Role Phone Jeffrey Sun Primary Care Provider [phone] Fausto Sherman Unavailable [phone] Caren Jones Unavailable [phone] Allergies No Known Allergies Results Component Value [...] dialysis for low BP on M,W,F Active Acetaminophen 500 MG 2 tablet as needed Orally every 6 hrs prn Active Pro-Stat - 30ml Orally bid Act palomo Loperamide HCl 2 MG 1 capsule as needed Orally Four times a day Active Atorvastatin Calcium 80 MG 1 tab(s) orally once a day Active Cough Drops 5.8 MG 1 lozenge as needed Mouth/Throat every 4 hours As needed Active Pantoprazole Sodium 40 MG 1 tab(s) orally once a day Active Biofreeze Cool The Pain 4 % 1 application as needed Externally every 8 hours As needed to shoulders Active Amiodarone HCl 200 MG TAKE 1 TABLET TWICE DAILY Active Regular Diet - as directed CCHO; DARLENE; no beans, bananas, oranges Active Eliquis 2.5 MG 1 tab(s) orally 2 times a day Active Calcium Acetate (Phos Binder) 667 MG 1 tablet with meals Orally Three times a day with meals Active Montelukast Sodium 10 MG 1 tablet Orally Once a day Active Fluticasone Propionate 50 MCG/ACT 1 spray in each nostril Nasally Once a day Active Iron Sucrose 20 MG/ML 2.5ml Intravenous M,W,F at dialysis Not-Taking Oxygen - 2L/min continuous per nasal cannula as directed supplemental prn Active Ondansetron 4 MG 1 tablet on the tongue and allow to dissolve Orally q8h prn Active Calmoseptine 0.44-20.6 % as directed Externally qd Not-Taking Rocaltrol 0.5 MCG 1 capsule Orally Three times a Week M,W,F Not-Taking traZODone HCl 100 MG 1 tablet at bedtime Orally Once a day Active Zinc 220 (50 Zn) MG 1 capsule Orally Once a day Active Cetirizine HCl 10 MG 1 tab(s) orally once a day Active Mucinex DM 30-600 MG 1 tablet as needed Orally every 12 hrs Active Calamine-Zinc Oxide 8-8 % as directed Externally apply sacral tissue around wound Not-Taking Nephro-Zack 0.8 MG 1 tablet Orally Once a day 1 mg Active Vitamin B 12 500 MCG 2 tab(s) orally once a day Active Benzonatate 100 MG 2 capsule as needed orally q8h prn Active Methoxy PEG-Epoetin Beta 75 MCG/0.3ML 3ml Injection at dialysis Not-Taking Promethazine-DM 6.25-15 MG/5ML 5 mL as needed Orally every 6 hrs prn Active [place] 0.44-20.625 % apply to sascrum after cleansing with NS; then applu abd pad Externally daily Active Immunizations Vaccine Route Administration Date Status Comme nts Tetanus Tdap-Adacel (over 7yrs) IM Intramuscular 01/30/2017 Administered Prevnar (PCV13) IM Intramuscular 09/02/2015 Administered PNEUMOVAX 23 VACCINE IM Intramuscular 01/30/2017 Administe red Hepatitis B (20 and more) Unknown 12/04/2020 Administer ed Fluzone High Dose (65yr and older) IM [...] (65yr and older) IM Intramuscular 07/03/2021 Administered COVID 19 Megan Unknown 04/08/2021 Administered COVID 19 Megan Unknown 08/20/2021 Administered Problems Problem Type SNOMED Code ICD Code Onset Dates Problem Status W/U Status Risk Notes Problem Gastroesophageal reflux disease (705486285) GERD (gastroesophageal reflux disease) (K21.9) Active confirmed Problem Essential hypertension (72326510) Essential (primary) hypertension (I10) Active confirmed Problem Debility (38139166) Debility (R53.81) Active co nfirmed Problem Vitamin D deficiency (28012807) Vitamin D deficiency (E55.9) Active confirmed Problem Essential hypertension (30368300) Essential hypertension (I10) Active confirmed Problem Otitis externa (0279170) Otitis externa (H60.90) Active confirmed Problem Hypertriglyceridemia (616733230) Hypertriglyceridemia (E78.1) Active confirmed Problem Postherpetic neuralgia (2368916) Post herpetic neuralgia (B02.29) Active confirmed Problem Dyspepsia (552329169) Dyspepsia (K30) Active co nfirmed Problem Disorder of musculoskeletal system (228851) Leg weakness (R29.898) Active confirmed Problem Seasonal allergy (916349621) Seasonal allergies (J30.2) Active confirmed Problem Hypomagnesemia (549852469) Hypomagnesemia (E83.42) Active confirmed Problem Primary insomnia (9022093) Primary insomnia (F51.01) Active confirmed Problem Chronic kidney disease due to hypertension (300070187599703) Hypertensive chronic kidney disease with stage 1 through stage 4 chronic kidney disease, or unspecified chronic kidney disease (I12.9) Active confirmed Problem Chronic kidney disease stage 4 (564611827) Chronic kidney disease, stage 4 (severe) (N18.4) Active confirmed Problem End stage renal disease (36876874) End stage renal disease (N18.6) Active confirmed Problem Diabetic renal disease (126270552) Diabetes mellitus with stage 3 chronic kidney disease (E11.22) Active confirmed Problem Type II diabetes mellitus without complication (775628263) Type 2 diabetes mellitus without complication (E11.9) Active confirmed Problem COPD - Chronic obstructive pulmonary disease (63111821) Chronic obstructive pulmonary disease, unspecified COPD type (J44.9) Active confirmed Problem Leukocytosis (685217580) Leukocytosis, unspecified type (D72.829) Active confirmed Problem Anemia (468184780) Anemia, unspe cified type (D64.9) Active confirmed Problem Iron deficiency anemia (64538094) Iron deficiency anemia, unspecified iron deficiency anemia type (D50.9) Active confirmed Problem Atrial fibrillation (98386100) Atrial fibrillation, unspecified type (I48.91) Active confirmed Problem Difficulty sleeping (997331665) Sleep difficulties (G47.9) Active confirmed Problem Hyperlipidaemia (56144986) Hyperlipidemia, unspecified hyperlipidemia type (E78.5) Active confirmed Problem Chronic kidney disease stage 4 (222978067) CKD (chronic kidney disease) stage 4, GFR 15-29 ml/min (N18.4) Active confirmed Problem Pressure injury of sacral region of back (disorder) (317840074) Sacral decubitus ulcer (L89.159) Active confirmed Problem Atherosclerotic hear t disease of [place] coronary artery without angina pectoris (518739331251986) Atherosclerosis of [place] coronary artery without angina pectoris, unspecified whether [place] or transplanted heart (I25.10) Active confirmed Problem Chronic kidney disease stage 3 (406838775) Chronic renal impairment, stage 3 (moderate) (N18.3) Active confirmed Problem Chronic renal failur e syndrome (45498141) Chronic kidney disease, unspecified CKD stage (N18.9) Active confirmed Problem Acute exacerbation o f chronic obstructive airways disease (495697494) Acute exacerbation of chronic obstructive airways disease (J44.1) Active confirmed Problem Allergic rhinitis (11435838) Allergic rhinitis, unspecified seasonality, unspecified trigger (J30.9) Active confirmed Problem Type II diabetes mellitus without complication (972810452) Type 2 diabetes mellitus without complication, unspecified whether terminal manager insulin use (E11.9) Active confirmed Problem Hyperphosphatemia (00573319) Hyperphosphatemia (E83.39) Active confirmed Problem Allergic rhinitis (60452456) Acute allergic rhinitis (J30.9) Active confirmed Problem Chronic kidney disease stage 5 (103186158) CKD (chronic kidney disease) stage 5, GFR less than 15 ml/min (N18.5) Active confirmed Problem Atherosclerotic hear t disease of [place] coronary artery without angina pectoris (773316976276856) 3-vessel coronary artery disease (I25.10) Active confirmed Problem Cerebral infarction (151233579) Occipital stroke (I63.9) Active confirmed Vital Signs Heart Rate 68 /min 07/10/2025 Respiratory Rate 20 /min 07/10/2025 Blood pressure diastolic 79 mm Hg 07/10/2025 Blood pressure systolic 150 mm Hg 07/10/2025 Weight 243.8 lbs 07/10/2025 Encounters Encounter Location Date Provider Diagnosis [address] [place], [place] [id number] 09/12/2024 Carne Jones Type 2 diabetes eugene itus without complication E11.9 ; Essential hypertension I10 ; Hyperlipidemia, unspecified hyperlipidemia type E78.5 ; Anemia, unspecified type D64.9 ; Atherosclerosis of [place] coronary artery without angina pectoris, unspecified whether [place] or transplanted heart I25.10 ; Chronic obstructive [...] (gastroesophageal reflux disease) K21.9 and Bronchitis J40 [address] [place] [id number] 10/03/2024 Caren Jones Cough R05.9 ; Type 2 diabetes mellitus without complication E11.9 ; Essential hypertension I10 ; Hyperlipidemia, unspecified hyperlipidemia type E78.5 ; Anemia, unspecified type D64.9 ; Atherosclerosis of [place] coronary artery without angina pectoris, unspecified whether [place] or transplanted heart I25.10 ; Chronic obstructive [...] (gastroesophageal reflux disease) K21.9 and Bronchitis J40 [address] [place], [place] [id number] 11/07/2024 Caren Jones Cough R05.9 ; Type 2 diabetes mellitus without complication E11.9 ; Hyperlipidemia, unspecified hyperlipidemia type E78.5 ; Anemia, unspecified type D64.9 ; Atherosclerosis of [place] coronary artery without angina pectoris, unspecified whether [place] or transplanted heart I25.10 ; Chronic obstructive [...] L89.159 and GERD (gastroesophageal reflux disease) K21.[address] [place], [place] [id number] 12/26/2024 Caren Jones Cough R05.9 ; Type 2 diabetes mellitus without complication E11.9 ; Hyperlipidemia, unspecified hyperlipidemia type E78.5 ; Anemia, unspecified type D64.9 ; Atherosclerosis of [place] coronary artery without angina pectoris, unspecified whether [place] or transplanted heart I25.10 ; Chronic obstructive [...] itching L29.9 and Acute allergic rhinitis J30.[address] [place], [place] [id number] 02/20/2025 Caren Campbellond Type 2 diabetes eugene itus without complication E11.9 ; Chronic renal impairment, stage 3 (moderate) N18.3 ; Atherosclerosis of [place] coronary artery without angina pectoris, unspecified whether [place] or transplanted heart I25.10 ; Cough R05.9 [...] disease) K21.9 and Acute allergic rhinitis J30.[address] [place] [id number] 05/08/2025 Carenalis Jones Type 2 diabetes eugene itus without complication E11.9 ; Atherosclerosis of [place] coronary artery without angina pectoris, unspecified whether [place] or transplanted heart I25.10 ; Cough R05.9 [...] disease) K21.9 and Acute allergic rhinitis J30.[address] [place] [id number] 07/10/2025 Caren Campbellond Type 2 diabetes eugene itus without complication E11.9 ; Atherosclerosis of [place] coronary artery without angina pectoris, unspecified whether [place] or transplanted heart I25.10 ; Cough R05.9 [...] pain, bilateral M25.511 and Occipital stroke I63.9 [facility] [address] [place], [place] [id number] 10/27/2024 Caren Campbellond [facility] [address] [place], [place] [id number] 11/03/2024 Jeffrey Chana [facility] [address] [place], [place] [id number] 11/27/2024 Jeffrey Chana [facility] [address] [place] [id number] 12/23/2024 Jeffrey Chana [facility] [address] [place], [place] [id number] 03/05/2025 Jeffrey Chana [facility] [address] [place] [id number] 03/09/2025 Jeffrey Chana [facility] [address] [place], [place] [id number] 04/16/2025 Jeffrey Chana [facility] [address] [place], [place] [id number] 04/18/2025 Jeffrey Chana [facility] [address] [place] [id number] 04/23/2025 Jeffrey Chana [facility] [address] [place] [id number] 05/24/2025 Jeffrey Chana [facility] [address] [place], [place] [id number] 06/05/2025 Fausto Sherman [facility] [address] [place], [place] [id number] 06/05/2025 Jeffrey Chana [facility] [address] [place] [id number] 06/06/2025 Jeffrey Chana [facility] [address] [place], [place] [id number] 06/18/2025 Jeffrey Chana [facility] [address] [place], [place] [id number] 07/12/2025 Jeffrey Chana Assessments Encounter Date Diagnosis (ICD Code) Assessment Notes Treatment Notes Treatment Clinical Notes Section Notes 09/12/2024 Essential hypertension (ICD-10 - I10) 09/12/2024 Type 2 diabetes mellitus without complication (ICD-10 - E11.9) [facility] diet 10/03/2024 Type 2 diabetes mellitus without complication (ICD-10 - E11.9) [facility] diet 10/03/2024 Cough (ICD-10 - R05.9) will add Duonebs QID and continue with them prn; will change cough med to Phrnergan DM; will add Mucinex DM bid 11/07/2024 Type 2 diabetes mellitus without complication (ICD-10 - E11.9) [facility] diet 11/07/2024 Cough (ICD-10 - R05.9) cough is better and to continue with duoneb prn 12/26/2024 Type 2 diabetes mellitus without complication (ICD-10 - E11.9) [facility] diet 12/26/2024 Cough (ICD-10 - R05.9) 02/20/2025 Type 2 diabetes mellitus without complication (ICD-10 - E11.9) 05/08/2025 Type 2 diabetes mellitus without complication (ICD-10 - E11.9) 07/10/2025 Type 2 diabetes mellitus without complication (ICD-10 - E11.9) 07/10/2025 Atherosclerosis of [place] coronary artery without angina pectoris, unspecified whether [place] or transplanted heart (ICD-10 - I25.10) 05/08/2025 Atherosclerosis of [place] coronary artery without angina pectoris, unspecified whether [place] or transplanted heart (ICD-10 - I25.10) 02/20/2025 Chronic renal impairment, stage 3 (moderate) (ICD-10 - N18.3) 12/26/2024 Hyperlipidemia, unspecified hyperlipidemia type (ICD-10 - E78.5) 11/07/2024 Hyperlipidemia, unspecified hyperlipidemia type (ICD-10 - E78.5) 09/12/2024 Hyperlipidemia, unspecified hyperlipidemia type (ICD-10 - E78.5) 10/03/2024 Essential hypertension (ICD-10 - I10) 09/12/2024 Anemia, unspecified type (ICD-10 - D64.9) 11/07/2024 Anemia, unspecified type (ICD-10 - D64.9) 12/26/2024 Anemia, unspecified type (ICD-10 - D64.9) labs completed as ordered by dialysis; last Hgb noted to be 8; stool for OB noted to be negative; receives IV Iron at dialysis,W,F 10/03/2024 Hyperlipidemia, unspecified hyperlipidemia type (ICD-10 - E78.5) 02/20/2025 Atherosclerosis of [place] coronary artery without angina pectoris, unspecified whether [place] or transplanted heart (ICD-10 - I25.10) 05/08/2025 Cough (ICD-10 - R05.9) 07/10/2025 Cough (ICD-10 - R05.9) 07/10/2025 Hyperlipidemia, unspecified hyperlipidemia type (ICD-10 - E78.5) 02/20/2025 Cough (ICD-10 - R05.9) 05/08/2025 Hyperlipidemia, unspecified hyperlipidemia type (ICD-10 - E78.5) 12/26/2024 Atherosclerosis of [place] coronary artery without angina pectoris, unspecified whether [place] or transplanted heart (ICD-10 - I25.10) 10/03/2024 Anemia, unspecified type (ICD-10 - D64.9) 11/07/2024 Atherosclerosis of [place] coronary artery without angina pectoris, unspecified whether [place] or transplanted heart (ICD-10 - I25.10) 09/12/2024 Atherosclerosis of [place] coronary artery without angina pectoris, unspecified whether [place] or transplanted heart (ICD-10 - I25.10) 09/12/2024 Chronic obstructive pulmonary disease, unspecified COPD type (ICD-10 - J44.9) 12/26/2024 Chronic obstructive pulmonary disease, unspecified COPD type (ICD-10 - J44.9) 10/03/2024 Atherosclerosis of [place] coronary artery without angina pectoris, unspecified whether [place] or transplanted heart (ICD-10 - I25.10) 11/07/2024 Chronic obstructive pulmonary disease, unspecified COPD type (ICD-10 - J44.9) 02/20/2025 Hyperlipidemia, unspecified hyperlipidemia type (ICD-10 - E78.5) 05/08/2025 Anemia, unspecified type (ICD-10 - D64.9) labs completed as ordered by dialysis; last Hgb noted to be 8; stool for OB noted to be negative; receives IV Iron at dialysis,W,F 07/10/2025 Anemia, unspecified type (ICD-10 - D64.9) labs completed as ordered by dialysis 07/10/2025 Chronic obstructive pulmonary disease, unspecified COPD type (ICD-10 - J44.9) 05/08/2025 Chronic obstructive pulmonary disease, unspecified COPD type (ICD-10 - J44.9) 02/20/2025 Anemia, unspecified type (ICD-10 - D64.9) labs completed as ordered by dialysis; last Hgb noted to be 8; stool for OB noted to be negative; receives IV Iron at dialysis,W,F 10/03/2024 Chronic obstructive pulmonary disease, unspecified COPD type (ICD-10 - J44.9) 11/07/2024 Allergic rhinitis, unspecified seasonality, unspecified trigger (ICD-10 - J30.9) 09/12/2024 Allergic rhinitis, unspecified seasonality, unspecified trigger (ICD-10 - J30.9) 09/12/2024 End stage renal disease (ICD-10 - N18.6) on dialysis 3 x weekly 12/26/2024 End stage renal disease (ICD-10 - N18.6) on dialysis 3 x weekly 11/07/2024 End stage renal disease (ICD-10 - N18.6) on dialysis 3 x weekly 10/03/2024 Allergic rhinitis, unspecified seasonality, unspecified trigger (ICD-10 - J30.9) 02/20/2025 Chronic obstructive pulmonary disease, unspecified COPD type (ICD-10 - J44.9) 05/08/2025 End stage renal disease (ICD-10 - N18.6) on dialysis 3 x weekly 07/10/2025 End stage renal disease (ICD-10 - N18.6) on dialysis 3 x weekly 07/10/2025 Leg weakness (ICD-10 - R29.898) OOB as toerates; is OOB 3 x weekly when goes to dialysis; he does not like to get OOB otherwise; he states he cannot stand and lift is used for transfers 05/08/2025 Leg weakness (ICD-10 - R29.898) OOB as toerates; is OOB 3 x weekly when goes to dialysis; he does not like to get OOB otherwise; he states he cannot stand and lift is used for transfers 02/20/2025 End stage renal disease (ICD-10 - N18.6) on dialysis 3 x weekly 11/07/2024 Leg weakness (ICD-10 - R29.898) OOB as toerates; is OOB 3 x weekly when goes to dialysis 12/26/2024 Leg weakness (ICD-10 - R29.898) OOB as toerates; is OOB 3 x weekly when goes to dialysis; he does not like to get OOB otherwise 10/03/2024 End stage renal disease (ICD-10 - N18.6) on dialysis 3 x weekly 09/12/2024 Leg weakness (ICD-10 - R29.898) OOB as toerates; is OOB 3 x weekly when goes to dialysis 09/12/2024 Debility (ICD-10 - R53.81) 10/03/2024 Leg weakness (ICD-10 - R29.898) OOB as toerates; is OOB 3 x weekly when goes to dialysis 12/26/2024 Debility (ICD-10 - R53.81) 11/07/2024 Debility (ICD-10 - R53.81) 05/08/2025 Debility (ICD-10 - R53.81) 02/20/2025 Leg weakness (ICD-10 - R29.898) OOB as toerates; is OOB 3 x weekly when goes to dialysis; he does not like to get OOB otherwise; he states he cannot stand and lift is used for transfers 07/10/2025 Debility (ICD-10 - R53.81) 05/08/2025 CKD (chronic kidney disease) stage 5, GFR less than 15 ml/min (ICD-10 - N18.5) dialysis M,W,F 07/10/2025 CKD (chronic kidney disease) stage 5, GFR less than 15 ml/min (ICD-10 - N18.5) dialysis M,W,F 02/20/2025 Debility (ICD-10 - R53.81) 12/26/2024 CKD (chronic kidney disease) stage 5, GFR less than 15 ml/min (ICD-10 - N18.5) dialysis M,W,F 11/07/2024 CKD (chronic kidney disease) stage 5, GFR less than 15 ml/min (ICD-10 - N18.5) 10/03/2024 Debility (ICD-10 - R53.81) 09/12/2024 CKD (chronic kidney disease) stage 5, GFR less than 15 ml/min (ICD-10 - N18.5) 09/12/2024 Atrial fibrillation, unspecified type (ICD-10 - I48.91) 11/07/2024 Atrial fibrillation, unspecified type (ICD-10 - I48.91) 12/26/2024 Atrial fibrillation, unspecified type (ICD-10 - I48.91) 10/03/2024 CKD (chronic kidney disease) stage 5, GFR less than 15 ml/min (ICD-10 - N18.5) 02/20/2025 CKD (chronic kidney disease) stage 5, GFR less than 15 ml/min (ICD-10 - N18.5) dialysis M,W,F 05/08/2025 Atrial fibrillation, unspecified type (ICD-10 - I48.91) 07/10/2025 Atrial fibrillation, unspecified type (ICD-10 - I48.91) 07/10/2025 Former smoker (ICD-10 - Z87.891) 05/08/2025 Former smoker (ICD-10 - Z87.891) 12/26/2024 Former smoker (ICD-10 - Z87.891) 02/20/2025 Atrial fibrillation, unspecified type (ICD-10 - I48.91) 10/03/2024 Atrial fibrillation, unspecified type (ICD-10 - I48.91) 11/07/2024 Former smoker (ICD-10 - Z87.891) 09/12/2024 Former smoker (ICD-10 - Z87.891) 09/12/2024 Sleep difficulties (ICD-10 - G47.9) 11/07/2024 Sleep difficulties (ICD-10 - G47.9) 12/26/2024 Sleep difficulties (ICD-10 - G47.9) 10/03/2024 Former smoker (ICD-10 - Z87.891) 02/20/2025 Former smoker (ICD-10 - Z87.891) 05/08/2025 Sleep difficulties (ICD-10 - G47.9) 07/10/2025 Sleep difficulties (ICD-10 - G47.9) 07/10/2025 Sacral decubitus ulcer (ICD-10 - L89.159) continues to be followed by wound care provider 05/08/2025 Sacral decubitus ulcer (ICD-10 - L89.159) [...] soiling refpace foam and silicone dressing only 05/08/2025 GERD (gastroesophageal reflux disease) (ICD-10 - K21.9) 07/10/2025 GERD (gastroesophageal reflux disease) (ICD-10 - K21.9) has seen GI; had ERCP and lap yashira; at [facility]; to have return visit 6-8 weeks for stent removal 05/08/2025 Acute allergic rhinitis (ICD-10 - J30.9) 07/10/2025 Shoulder pain, bilateral (ICD-10 - M25.511) 07/10/2025 Acute allergic rhinitis (ICD-10 - J30.9) 02/20/2025 GERD (gastroesophageal reflux disease) (ICD-10 - K21.9) 12/26/2024 Otitis externa (ICD-10 - H60.90) encouraged to NOT put anything else into the ear canal 09/12/2024 Bronchitis (ICD-10 - J40) will add neb [place] 10/03/2024 GERD (gastroesophageal reflux disease) (ICD-10 - K21.9) 10/03/2024 Bronchitis (ICD-10 - J40) will restart scheduled nebs 12/26/2024 Ear itching (ICD-10 - L29.9) encourage pt not to put anything else into the ear canal 02/20/2025 Acute allergic rhinitis (ICD-10 - J30.9) 07/10/2025 Occipital stroke (ICD-10 - I63.9) To follow with [facility] in 6-8 weeks; noted to have moderate dysarthria and mild cognitive linguistic disorder 12/26/2024 Acute allergic rhinitis (ICD-10 - J30.9) 12/26/2024 Other DNR; need lab results from dialysis Plan Of Treatment Pending Test Test Name Order Date Lipid Profile 10/20/2023 Glycohemoglobin (HbA1C) 10/20/2023 TSH 10/20/2023 CMP 10/20/2023 Insurance Providers Payer Name Payer Address Payer Phone Subscriber Number Group Number Insured Name Patient Relationship to Insured Coverage Start Date Coverage End Date MEDICARE PART B [address] [address] [place] [id number] [phone] [id number] ALEXA FUENTES Self - patient is the [...] 09/28/2020 ESKD with dialysis 3 times weekly 2024 a t [facility] dialysis Valvular Heart disease Parotitis Occipital stroke Surgical History Surgery Date(Month/Year) Kidney Stone Removal- [facility] 2006 Prostate- [facility] 2010 Heart Cath & ECHO 04/2017 ERCP/Dr. Foote [facility] with stone removal and stent placement into common bile dust 06/08/2025 Lap cholecystectomy 06/09/2025 Hospitalization History Reason Date(Month/Year) [facility] [place]; Choledocholithiasis; Pneumonis; parotitis;ESRP;Lap Yashira; vlavular HD 06/06-06/13/2025 Stage 4 Chronic Kidney Disease, GFR 15-2 9 ml/min 06/13- Respiratory Failure- and [facility] 2020 Covid-19- [facility] 2020
--- OUTSIDE RECORDS SUMMARY | 2025-07-17 07:56 | XMS_ITS | Clinical Summary ---
Author Organization [facility] Address [address] [place] [address] Care Team Providers Care [address] Name Role Phone Unavailable Primary Care Provider [...] therelease of HIV test results or diagnoses. [id number] Allergies No known active allergies Medications [...] [employer] MEDICARE way [address] [place] [address]
--- OUTSIDE RECORDS SUMMARY | 2025-07-17 07:56 | XMS_ITS | Clinical Summary ---
Author Organization [employer] ([place], [place], [place], [place], [place]) Address [address] [place] [address] Care Team Providers Care Photo Tech Name Role Phone Jeffrey Sun MD Primary Care Provider + [phone] Allergies No known active allergies Medications No known medications Social History Tobacco Use Types Packs/Day Years Used Date Smoking Tobacco: Never Assessed Family and Community Support Answer Ortiz e Recorded Help with Day to Day Activities Not on file 03/22/2024 Feeling Lonely or Isolated Not on file 03/22 Educational Attainment Answer Date Kavin rded Speak language other than Chadian at home Not on file 03/22/2024 Want help with school or training Not on file 03/22/2024 Substance Use Answer Date Recorded Used prescription meds for non-medical reasons N ot on file 03/22/2024 Used illegal drugs past 12 months Not on file 03/22/2024 Sex and Gender Information Value Date Recorded Sex Assigned at Not on file Legal Sex Male 3:26 PM CDT Gender Identity Not on file Sexual Orientation Not on file Last Filed Vital Signs Vital Sign Reading Time Taken Comments Blood Pressure 120/58 03/23/2024 12:35 AM EDT Pulse 64 03/23/2024 12:35 AM EDT Temperature 37.1 C (98.8 F) 03/23/2024 12:35 AM EDT Respiratory Rate 18 03/23/2024 12:35 AM EDT Oxygen Saturation 92% 03/23/2024 12:35 AM EDT Inhaled Oxygen Concentration - - Weight 113.4 kg (250 lb) 03/22/2024 4:31 PM EDT Height 172.7 cm (5' 8 ) 03/22/2024 4:31 PM EDT Body Mass Index 38.01 03/22/2024 4:31 PM EDT Plan of Treatment Health Maintenance Due Date Last Done Comments Depression Screening (12+) 1960 Tobacco Cessation Counseling and Screening (12+) 1960 Hepatitis C Screening 1966 Shingles Vaccine (Zoster) (1 of 2) 1998 Medicare Initial AWV [id number] 11/12/2014 Pneumococcal 50+ years (2 of 2 - PCV) 01/30/2018 01/30/2017 Respiratory Syncytial Virus (RSV) Adult or (1 - 1-dose 75+ series) 12/09/2023 Falls Risk Screening 09/13/2024 COVID-19 VACCINE (2 - 2024-2 6 season) 2025 04/08/2021 Influenza Vaccine (#1) 2025 , 06/28/2020, 08/31/2019, Additional history exists DTAP/TDAP/TD VACCINES (2 - T d or Tdap) 01/30/2027 01/30/2017 Colonoscopy Discontinued 11/21/2020 Colorectal Cancer Screening Discontinued CT Colonography Discontinued FOBT/FIT Discontinued Fit-DNA (Cologuard) Discontinued Sigmoidoscopy Discontinued Insurance MEDICARE PART A B Care Teams Photo Tech Relationship Specialty Start Date End Date Jeffrey Sun MD [address] [facility] [address] [place] [id number] PCP - General Family Medicine 03/22/24
--- OUTSIDE RECORDS SUMMARY | 2025-07-17 07:57 | XMS_ITS | Clinical Summary ---
Author Organization [facility] Address [address] [place] [address] Care Team Providers Care Reception Centre Manager Name Role Phone Jeffrey Sun MD Primary Care Provider + [phone] Donny Garcia MD Unavailable [phone] Tutu Bliss MD Unavailable [phone] Allergies No known active allergies Medications atorvastatin [...] a week. On Wednesday, and Wednesday at [facility] Active Methoxy PEG-Epoetin Beta (Mircera) 75 MCG/0.3ML solution prefilled syringe Inject 75 mcg as directed every 14 (fourteen) days. at [facility] Active iron sucrose (Venofer) 20 MG/ML injection Infuse 2.5 mL (50 mg) into a venous catheter every 7 (seven) days. On at [facility] Active loperamide (Imodium A-D) 2 MG [...] place to sleep or slept in a prison (including now)? No 03/24/2024 CAGE ASSESSMENT Answer [...] drink first t ana in the morning (EYE-PARTS SPECIALIST) to steady your nerves or to get rid of a hangover? 0 11/27/2023 CAGE Questionnaire Score 0 024 Utilities Answer Date Recorded In the past 12 months has th [employer], gas, oil, or water [employer] threatened to shut off services in your [...] Done Comments [facility]-Medicare Annual Wellness (AWV) 1948 [facility]-/Child/Adol SDOH Screenings 1948 [facility]- SDOH Screenings 1966 [facility]-Adult SDOH Screenings 1966 [facility]-Zoster Vaccines (1 of 2) 12/09/1967 [facility]-RSV Vaccine: 60+ Years or (1 - 1-dose 75+ series) 12/09/2023 [facility]-Diabetes: Hemoglobin A1C 11/27/2024 11/28/2023, 08/13/2022 [id number] Vaccine ( - 2024- season) 2025 08/20/2021, 04/08/2021 [facility]-Depression Screening 06/28/2025 06/28/2024 [facility]-DTaP,Tdap,and Td Vaccines (2 - Td or Tdap) 01/30/2027 01/30/2017 [facility]-Pneumococcal Vaccine: 50+ Years Completed 01/30/2017, 09/02/2015 Colonoscopy Discontinued 11/21/2020 [facility]-Colorectal Cancer Screening Discontinued [facility]-Hepatitis C Screening Completed 2023, 11/27/2023, 11/26/2023, Additional history exists [facility]-Obesity Intervention Completed 024, 07/28/2024, 04/17/2024, Additional history exists [facility]-Influenza Vaccine Completed 06/22/2025 , 07/03/2021, 06/28/2020, Additional history exists CT Colonography Discontinued FIT-DNA [...] this topic Medical Devices Implanted Type Area Social Work Assistant Device Identifier Shelf Expiration Date Model / Serial / Lot Stent Aortic Iliac 8 X 5 - [id number] Implanted:Qty: 1 on 09/01/2022 by Tenisha Ring RN at [facility] [employer]-[id number] 08/13/2024 [id number] / [id number] / [id number] Stent Endoprosthesis Viabahn 8fr [id number] - [id number] - [id number] Implanted:Qty: 1 on 11/30/2023 by Reji Chiu MD at [facility] [employer]-[id number] 04/27/2026 [id number] / [id number] / [id number] Stent Endoprosthesis Viabahn 9fr [id number] - [id number] - [id number] Implanted:Qty: 1 on 11/30/2023 by Reji Chiu MD at [facility]-[id number] 07/25/2026 [id number] / [id number] / [id number] Stent Endoprosthesis Viabahn 9fr [id number] - [id number] - [id number] Implanted:Qty: 1 on 11/30/2023 by Reji Chiu MD at [id number] 08/25/2026 [id number] / [id number] / [id number] Stent Graft Iliac [id number] Vi[employer]ahnbx - [id number] Implanted:Qty: 1 on 03/15/2024 by Li Ortiz RN at [id number] 05/14/2025 [id number] / [id number] / [id number] Procedures Procedure Name Priority Date/Time Associated Diagnosis Comments ACUTE HEPATITIS PANEL Routine 03/25/2024 10:27 AM EDT HEMOGLOBIN A1C STAT 11/28/2023 3:50 AM EDT COLONOSCOPY 11/21/2020 from Last 3 Months or Most Recently Relevant to Health Maintenance Results * Acute Hepatitis Panel (03/25/2024 10:27 AM EDT) Hepatitis B Surf Antigen Negative Negative 03/25/2024 12:30 PM EDT [facility] Hepatitis C Antibody Negative Negative 03/25/2024 12:30 PM EDT [facility] Hepatitis A Antibody IgM Negative Negative 03/25/2024 12:30 PM EDT [facility] Hepatitis B Core Antibody IgM Negative Negative 03/25/2024 12:30 PM EDT [facility] Blood Arterial blood specimen / Unknown Arterial Puncture / Unknown 03/25/2024 10:27 AM EDT 03/25/2024 10:31 AM EDT [place] MD LAB BLOOD ORDERABLES Final Resul t Performing Organization Address [facility] de Phone Number [facility] [address] [place] [address] * Hemoglobin A1c (11/28/2023 3:50 AM EDT) Hemoglobin A1c 5.4 <5.7 % 11/28/2023 4:12 AM EDT [facility] Blood Venous blood specimen / Unknown Venipuncture / Unknown 11/28/2023 3:50 AM EDT 11/28/2023 3:57 AM EDT Narrative [facility] - 11/28/2023 4:12 AM EDT HA1C Interpretive Data: Diagnosis of Diabetes: Diabetic > or = 6.5% Pre-diabetic 5.7 to 6.4% Non-diabetic < or = 5.6% Glycemic Targets for Type I and Type II Diabetics: Non- Adults <7.0% Adults <6.0% Children and Adolescents <7.5% Source: Stateless Diabetes Association. Standards of medical care in diabetes,2017. Diabetes Care.2017:40 (suppl 1):S1-S135. HbA1c assay performed by an ion-exchange chromatography method that is certified traceable to the DCCT. Erik Montilla MD LAB BLOOD ORDERABLES Final Resu lt Performing Organization Address [facility] de Phone Number [facility] [address] [place] [address] * COLONOSCOPY (11/21/2020) Anatomical Region Laterality Modality Endoscopy Narrative 11/21/2020 Ordered by an unspecified provider. Historical Provider GI PROCEDURE ORDERABLES July l Result from Last 3 Months or Most Recently Relevant to Health Maintenance Additional Health Concerns Infection Onset Date Last Indicated C. difficile 03/28/2024 03/28/2024 Insurance [facility] [address] [place] [id number] MEDICARE [place] Advance Directives * Full Code [...] will bring to hospital when able. Notified MANAGER STRATEGIC superintendent nonselling. Question Answer Comments DNR determined on/before admission date? Yes Patient has decision-making capacity? Yes * Full Code Date Activated Date Inactivated Comments 11/26/2023 4:28 PM 11/27/2023 11:59 PM Question Answer Comments Patient has decision-making capacity? Yes * Full Code Date Activated Date Inactivated Comments 08/16/2022 10:21 AM 09/02/2022 7:54 PM Question Answer Comments Patient has decision-making capacity? Yes Care Teams Reception Centre Manager Relationship Specialty Start Date End Date Jeffrey Sun MD [address] [facility] [address] [place] [address] PCP - General 01/24/21 Donny Garcia MD [address] [facility] [address] [place] [address] Surgeon Vascular Surgery 08/13/22 Tutu Bliss MD [address] [facility] [address] [place] [address] Consulting Physician Nephrology 08/13/22
--- OUTSIDE RECORDS SUMMARY | 2025-07-17 07:57 | XMS_ITS | Clinical Summary ---
Author Organization [facility] Address [address] [facility] [address] [place] [address] Phone Care Team Providers Care Orthopedic Nurse Practitioner Name Role Phone Unavailable Unavailable Conditions or Problems No information available. Medications No information available. Medications Administered No information available. Allergies, Adverse Reactions, Alerts No information available. Results No information available. Plan of Care No information available. Procedures No information available. Vital Signs No information available. Immunizations No information available. Advance Directives No information available.
--- OUTSIDE RECORDS SUMMARY | 2025-07-17 07:57 | XMS_ITS | Referral Summary ---
Author Organization [email or web address] ([employer]) ([place], [place], [place], [place], [place]) Address [address] [place] [address] Care Team Providers Care Grain Trimmer Name Role Phone Jeffrey Sun MD Primary Care Provider + [phone] Allergies No known active allergies Medications No known medications Social History Tobacco Use Types Packs/Day Years Used Date Smoking Tobacco: Never Assessed Family and Community Support Answer Ortiz e Recorded Help with Day to Day Activities Not on file 03/22/2024 Feeling Lonely or Isolated Not on file 03/22 Educational Attainment Answer Date Kavin rded Speak language other than Fijian at home Not on file 03/22/2024 Want [...] 03/22/2024 4:31 PM EDT Plan of Treatment Not on file Insurance MEDICARE PART A B Care Teams Grain Trimmer Relationship Specialty Start Date End Date Jeffrey Sun MD [address] [address] [place] [phone] PCP - General Family Medicine 03/22/24
--- OUTSIDE RECORDS SUMMARY | 2025-07-17 07:57 | XMS_ITS ---
Author Organization [facility] Address [address] [place] [address] Care Team Providers Care Toddler Teacher Name Role Phone Jeffrey Sun MD Primary Care Provider + [phone] Donny Garcia MD Unavailable [phone] Tutu Bliss MD Unavailable [phone] Active Problems Problem Noted Date Diagnosed Date [...]
--- NOTE | 2025-07-17 08:00 | NM_ITS ---
APPROVED REPORT Exam: Nuclear Stress Test Indication: SOB, HTN, High cholesterol Patient Location: Outpatient Stress Tech: Anny Foote MS Tech:Lata Menendez, ARRT, RT (R)(N) Ht: 6 ft 4 in Wt: 242 lbs HR: 55 bpm BP: 124/61 mmHg BSA: 2.40 m2 TID: 1.86 BMI: 29.4 History: SOB, HTN, High cholesterol Procedure: Patient received 0.4 mg of intravenous Lexiscan, resting heart rate 55 bpm, resting blood pressure 124/61 mmHg, with Lexiscan maximum heart rate achieved was 81 bpm which is % of the maximum predicted heart rate and blood pressure was 160/76 mmHg. With Lexiscan, patient denied any complaint of chest pain. Cardiac Stress and Resting SPECT Images: Cardiac Stress and Resting SPECT images were obtained using technetium 99m Myoview 32.6 mCi stress and 10.46 mCi at rest. The patient is unable to lie on his abdomen. Therefore, prone stress imaging could not be performed. This may affect the diagnostic interpretation of the study findings. Technically difficult study. There is a medium-sized, moderate, predominantly reversible perfusion defect in the basal inferior and anterior LV lópez. Gated imaging demonstrates moderate reduction in global LV systolic function. LVEF is calculated at 34%. Conclusion: Medium-sized, moderate, predominantly reversible perfusion defect in the basal inferior and anterior LV lópez. Findings are suggestive of reversible ischemia. Gated imaging demonstrates moderate reduction in global LV systolic function. LVEF is calculated at 34%. Electronically signed by : Leeanna Srivastava MD 07/17/2025 13:15:32
[2025-07-17 09:05] VITALS: BP 124/61; PULSE 55; RESP 14
[2025-07-17] MEDS: AMINOPHYLLINE 250MG/10ML VIAL 125 MG IV ×2 (09:18→09:21)
[2025-07-17] MEDS: SODIUM CHLORIDE 0.9% 10ML SYR (RAD ONLY) 10 ML IV ×2 (09:21)
[2025-07-17] MEDS: ISOTOPE MYOVIEW (PER STUDY) 1 DOSE IV (09:21)
--- NOTE | 2025-07-17 10:18 | PC.NURSE ---
0918 3-4 mintutes after Lexiscan injection, patient having nausea/vomiting. Aminophylline 50 mg IVP given with minimal relief. BP 160/76 HR 70 post Aminophylline IVP. 0920 continued nausea vomiting-Aminophylline 50 mg IVP. BP 154/67 HR 66. 0925 Vomiting resolved, minimal nausea noted. 929 Hoang Haas PA-C notified.
[2025-07-17 10:58] VITALS: BMI 29.4
== END 2025-07-17 23:59 | disposition home or self-care (01) ==
LOC: RAD 07:52
PROVIDERS: PCP Family Medicine; Visit Provider Internal Medicine
DX: R06.09 Other forms of dyspnea (principal); I25.10 Atherosclerotic heart disease of native coronary artery without angina pectoris; I48.0 Paroxysmal atrial fibrillation
CPT/HCPCS: 78452; 93017; 93018; 93306; A9502; J0280; J2785